=== PATIENT | male | born 1955 | race Caucasian/White ===

== ENCOUNTER → 2019-11-24 11:30 | Outpatient (BNVA) | payer OTHER, SELFPAY | PROVIDERS: PCP Nurse Practitioner Family; Visit Provider Orthopaedic Surgery | DX: Z76.89 Persons encountering health services in other specified circumstances (principal) ==

== ENCOUNTER 2019-12-07 07:19 | Outpatient (REF) | payer OTHER, SELFPAY ==
[2019-12-07 12:15] LABS: Alanine Aminotransferase 29 U/L (0-40); Albumin Level 3.8 g/dL (3.5-5.0); Alkaline Phosphatase 95 U/L (39-117); Anion Gap 13 (12-20); Aspartate Amino Transferase 23 U/L (5-37); Bilirubin Total 0.6 mg/dL (0.0-1.0); Blood Urea Nitrogen 17 mg/dL (9-16); Calcium 8.9 mg/dL (8.4-10.2); Carbon Dioxide 27 mmol/L (22-29); Chloride 103 mmol/L (96-108); Cholesterol 114 mg/dL; Estimated Glomerular Filt Rate > 60; Glucose Fasting 95 mg/dL (60-99); HDL Cholesterol 38 mg/dL; LDL Cholesterol Calculated 57 mg/dl; Potassium 4.5 mmol/l (3.3-5.1); Sodium 138 mmol/L (135-145); Total Protein 6.9 g/dL (6.5-8.0); Triglycerides 97 mg/dL
[2019-12-07 12:18] LABS: Prostate Specific Antigen 1.82 ng/mL (<0.05-4.0); TSH reflex Free T4 1.43 mIU/mL (0.32-4.0); Vitamin D 25-OH Total 19.6 ng/mL (>30)
== END 2019-12-07 07:20 | disposition home or self-care (01) ==
LOC: HO.HMGCLDS 07:19
PROVIDERS: PCP Nurse Practitioner Family; Visit Provider Nurse Practitioner Family
DX: Z12.5 Encounter for screening for malignant neoplasm of prostate (principal); Z13.220 Encounter for screening for lipoid disorders; Z13.21 Encounter for screening for nutritional disorder; Z13.29 Encounter for screening for other suspected endocrine disorder
CPT/HCPCS: 80053; 80061; 82306; 84153; 84443

== ENCOUNTER → 2019-12-27 10:23 | Outpatient (BNVA) | payer OTHER, SELFPAY | PROVIDERS: PCP Nurse Practitioner Family; Referring Provider Nurse Practitioner Family; Visit Provider Internal Medicine Cardiovascular Disease | DX: Z76.89 Persons encountering health services in other specified circumstances (principal) ==

== ENCOUNTER → 2020-01-19 08:45 | Outpatient (BNVA) | payer OTHER, SELFPAY | PROVIDERS: Visit Provider Orthopaedic Surgery | DX: Z76.89 Persons encountering health services in other specified circumstances (principal) ==

== ENCOUNTER → 2020-01-25 09:05 | Outpatient (BNVA) | payer OTHER, SELFPAY | PROVIDERS: PCP Nurse Practitioner Family; Visit Provider Urology | DX: Z76.89 Persons encountering health services in other specified circumstances (principal) ==

== ENCOUNTER → 2020-02-09 15:26 | Outpatient (BNVA) | payer OTHER, SELFPAY | PROVIDERS: PCP Nurse Practitioner Family; Referring Provider Nurse Practitioner Family; Visit Provider Internal Medicine | DX: Z76.89 Persons encountering health services in other specified circumstances (principal) ==

== ENCOUNTER → 2020-03-15 14:45 | Outpatient (BNVA) | payer OTHER, SELFPAY | PROVIDERS: PCP Nurse Practitioner Family; Visit Provider Urology | DX: Z76.89 Persons encountering health services in other specified circumstances (principal) ==

== ENCOUNTER 2020-05-13 09:15 | Emergency (ER) | payer OTHER, SELFPAY ==
[2020-05-13] VITALS (8 sets, daily range): BP systolic 103–159; BP diastolic 53–88; PULSE 100–112; RESP 14–24; TEMP 36.8–37.5; O2SAT 91–95; BMI 42.5
--- NOTE | ~2020-05-13 | XR_ITS ---
EXAMINATION: XR CHEST CLINICAL INFORMATION: Covid positive COMPARISON: Chest x-ray 01/01/2018 TECHNIQUE: Frontal view of the chest was obtained. FINDINGS: Cardiac silhouette is normal in size. The lungs are adequately aerated. Diffuse coarsening of the interstitial markings and subtle patchy bilateral airspace opacities are noted. No lobar consolidation appreciated. No pleural effusion or pneumothorax. XR/XR chest 1V IMPRESSION: Suspected viral infiltrate superimposed on chronic lung changes.
[2020-05-13] MEDS: Acetaminophen 325 MG TABLET 650 MG PO (09:45)
--- NOTE | 2020-05-13 10:10 | ECG_ITS ---
Test Reason : DIFFICULTY BREATING Blood Pressure : / mmHG Vent. Rate : 101 BPM Atrial Rate : 101 BPM P-R Int : 182 ms QRS Dur : 142 ms QT Int : 366 ms P-R-T Axes : 008 -08 008 degrees QTc Int : 474 ms Sinus tachycardia Right bundle branch block Abnormal ECG When compared with ECG of 01-JAN-2018 10:35, No significant changes seen Referred By: Susan Shannon Electronically Signed By:FEDERICO SANTOS
[2020-05-13 10:39] LABS: MANUAL DIFF FLAG NO
[2020-05-13 10:42] LABS: Eosinophils Percent Auto 0.2 % (0-4); Hematocrit 44.2 % (42-52); Hemoglobin 14.5 g/dl (14.0-18.0); Imm Gran Abs Auto 0.02 X10*3/uL (0.00-0.03); Imm Gran Pct Auto 0.4 % (0.0-0.4); Lymphocytes Absolute Auto 1.2 X10*3/uL (1.2-4.9); Mean Corpuscular HGB Conc 32.8 g/dl (31.0-36.0); Mean Corpuscular Hemoglobin 32.2 pg (27.0-33.0); Mean Corpuscular Volume 98.2 fL (80-98); Mean Platelet Volume 9.5 fL (9.4-12.4); Monocytes Absolute Auto 0.5 X10*3/uL (0.1-1.2); Monocytes Percent Auto 9.7 % (2-11); Neutrophils Absolute Auto 3.2 X10*3/uL (2.0-8.3); Neutrophils Percent Auto 65.7 % (45-73); Platelet Count 222 X10*3/uL (160-400); Red Cell Distribution Width 13.3 % (11.0-16.0); White Blood Count 4.8 X10*3/uL (4.8-10.8)
[2020-05-13 10:51] LABS: INTERNATIONAL NORM RATIO 1.2 (0.9-1.1); Prothrombin Time 13.8 SEC (10.8-13.0)
[2020-05-13] MEDS: Albuterol Sulfate 90 MCG 8 GM INHALER 4 PUFF INHALE (10:52)
[2020-05-13 10:53] LABS: Partial Thromboplastin Time 34.5 SEC (24.1-38.0)
[2020-05-13 10:54] LABS: D Dimer 273 NG/ML
[2020-05-13 11:04] LABS: Lactic Acid 0.7 mmol/L (0.5-2.0)
[2020-05-13 11:05] LABS: Alanine Aminotransferase 30 U/L (0-40); Albumin Level 3.7 g/dL (3.5-5.0); Alkaline Phosphatase 82 U/L (39-117); Anion Gap 13 (12-20); Aspartate Amino Transferase 38 U/L (5-37); Bilirubin Direct 0.5 mg/dL (0.0-0.5); Bilirubin Total 0.7 mg/dL (0.0-1.0); Blood Urea Nitrogen 17 mg/dL (9-16); Calcium 8.3 mg/dL (8.4-10.2); Carbon Dioxide 25 mmol/L (22-29); Chloride 101 mmol/L (96-108); Creatinine Clr Calc Pharmacy 135.8; Estimated Glomerular Filt Rate > 60; Glucose Random 100 mg/dL (60-115); Lactate Dehydrogenase 307 U/L (118-273); Sodium 135 mmol/L (135-145); Total Protein 7.2 g/dL (6.5-8.0)
[2020-05-13 11:10] LABS: B Type Natriuretic Peptide < 10 pg/mL (<100); Troponin-I High Sensitivity 4.1 ng/L (<3.5-35.0)
[2020-05-13 11:23] LABS: Ferritin 382 ng/mL (20-250)
--- NOTE | 2020-05-13 11:24 | ED_ITS ---
HPI - URI/Sore Throat General Chief Complaint: Upper Respiratory Symptoms Stated Complaint: covid+ , COPD Time Seen by Provider: 05/13/20 09:40 Source: patient Mode of arrival: ambulatory History of Present Illness HPI Narrative: 65-year-old male with a past medical history of COPD, diverticulitis, morbid obesity, JEFFRY on CPAP, restless leg syndrome, COVID-19 positive at [facility] sent to ED for further eval complaining of cough, my algias, dry mouth, generalized weakness, SOB, chest tightness x3 days. Denies fever, chills, LE edema, recent travel, history of blood clots, abdominal pain, nausea/vomiting Related Data Home Medications Medication Instructions Recorded Confirmed albuterol sulfate 90 mcg/actuation 1 inh INHALATION QID 11/17/19 03/13/20 aerosol inhaler amitriptyline 100 mg tablet 100 mg PO BEDTIME 11/17/19 03/13/20 duloxetine 60 mg capsule,delayed 60 mg PO DAILY 11/17/19 03/13/20 release fluticasone propionate 110 1 puff INHALATION BID 11/17/19 03/13/20 mcg/actuation HFA aerosol inhaler pregabalin 75 mg capsule 75 mg PO BID cap 11/17/19 03/13/20 umeclidinium 62.5 mcg-vilanterol 1 inh INHALATION DAILY 11/17/19 03/13/20 25 mcg/actuation powdr for inhalation methocarbamol 500 mg tablet 500 mg PO BEDTIME PRN tab 02/09/20 03/13/20 umeclidinium 62.5 mcg-vilanterol 1 inh INHALATION DAILY 03/13/20 03/13/20 25 mcg/actuation powdr for inhalation Previous Rx's Medication Instructions Recorded finasteride 5 mg tablet 5 mg PO DAILY 90 Days #90 tab 12/30/19 trimethoprim 100 mg tablet 100 mg PO BEDTIME 90 Days #90 tab 01/07/20 atorvastatin 80 mg tablet 80 mg PO DAILY 90 Days #90 tab 03/20/20 naproxen 500 mg tablet 500 mg PO BID PRN 90 Days #180 tab 03/20/20 aspirin 81 mg tablet,delayed 81 mg PO DAILY 90 Days #90 tab 04/04/20 release terazosin 10 mg capsule 10 mg PO BEDTIME 90 Days #90 cap 02/19/21 ropinirole 2 mg tablet 4 mg PO TID #540 tab 04/26/20 azithromycin 250 mg PO DAILY 4 Days #4 tab 05/13/20 cefpodoxime 200 mg PO BID 7 Days #14 tab 05/13/20 prednisone 40 mg PO DAILY 5 Days #10 tab 05/13/20 Allergies Allergy/AdvReac Type Severity Reaction Status Date / Time No Known Allergies Allergy Verified 03/13/20 15:26 [No Known Allergies*] Review of Systems Review of Systems: Constitutional: No Fever, No Chills, No Night Sweats, + Fatigue, No Malaise ENT/Mouth: No Ear Pain, No Nasal Congestion, No Sinus Pain, No Hoarseness, No sore throat Cardiovascular: + Chest tightness, + SOB, + Dyspnea on Exertion, No Orthopnea, No Edema, No Palpitations Respiratory: + Cough, No Sputum, No Wheezing, + Dyspnea Gastrointestinal: No Nausea, No Vomiting, No Diarrhea, No Constipation, No Abdominal pain Genitourinary: No Dysuria, No Urinary Frequency, No Hematuria Musculoskeletal: No joint pain, + Myalgias, No Joint Swelling Skin: No Skin Lesions, No rash Neuro: +Weakness, No Loss of Consciousness, No Headache Yes all other systems are reviewed and are negative [facility] Past Medical History Attestation statement: The following information was validated with the patient. Medical History (Updated 05/13/20 @ 15:50 by AYSHA Ruvalcaba) Bladder outlet obstruction Chronic cystitis COPD (chronic obstructive pulmonary disease) COPD (chronic obstructive pulmonary disease) MATUTE (dyspnea on exertion) History of diverticulitis History of umbilical hernia Injury of right rotator cuff Morbid obesity JEFFRY (obstructive sleep apnea) JEFFRY on CPAP Restless leg syndrome Restrictive lung disease Traumatic complete tear of right rotator cuff Surgical History History of appendectomy History of arthroscopy of left knee Family History Family History Father Arthritis Diabetes Mother Arthritis Kidney stones Family/Other Arthritis Sister No problems noted. Sister No problems noted. Son No problems noted. Social History Social History Alcohol intake: never Smoking Status: Former smoker Use of substances other than those prescribed or required for medical reasons: No Advance Directives: No Advance Directives Information Provided: No Current occupation: [employer] -[employer] Physical Exam Vital Signs: Vital Signs: Last Vital Signs Temp 98.5 F 05/13/20 15:15 Pulse 107 H 05/13/20 15:15 Resp 14 05/13/20 15:15 BP 159/88 H 05/13/20 15:15 Pulse Ox 95 05/13/20 15:15 Body Mass Index 42.5 Const: General: cooperative, healthy appearing and no acute distress Orientation/consciousness: patient oriented x3 Limitations: no limitations HENMT: Head: Yes normal to inspection Ears: hearing grossly normal bilaterally General nose exam: Normal external nose present Face and sinus: Yes normal facial exam Eyes: General: appearance normal, both eyes and all related structures EOM: EOMs intact bilaterally Neck: Neck: Yes normal visual inspection Resp: Effort & Inspection: normal respiratory effort Auscultation: clear to auscultation bilaterally and no wheezes Cardio: Rate: regular rate Heart sounds: S1 normal heart sound present and S2 normal heart sound present GI: Inspection: Yes normal to inspection Palpation (GI): Soft to palpation and nontender Skin: Rashes: no rashes Wounds: no wounds Neuro: General: patient oriented x3 Gait exam (Neuro): Normal gait present Extrem: General: Yes normal to inspection and Yes no calf tenderness Course Course Course Narrative: XR chest 1V IMPRESSION: Suspected viral infiltrate superimposed on chronic lung changes >> IV Azithromycin and Ceftriaxone ordered -D-dimer slightly elevated 273 >> age adjusted cut off for this patient would be 89 making VTE unlikely, additionally anticipate D-dimer to be elevated with known COVID 19 positive status. Unlikely PE -ferritin/LDH mildly elevated, AST mildly elevated, troponin negative -upon ambulation trial with pulse ox patient dropped to 91% on RA & became mildly tachycardic and tachypneic > IV Decadron ordered. Patient would like to go home. Will repeat ambulation trial after medication administration is complete --1541--Upon repeat ambulation trial patient maintains O2 sat greater than 92% on RA on exertion, no dyspnea, feels safe to go home. Worrisome signs and symptoms and strict return precautions discussed including constant worsening SOB/CP, constant are unremitting fevers, in to obtain pulse oximeter for home monitoring. Patient verbalized understanding feel safe for discharge home MDM - URI/Sore Throat MDM Narrative Medical decision making narrative: 65-year-old male with a past medical history of COPD, diverticulitis, morbid obesity, JEFFRY on CPAP, restless leg syndrome, COVID-19 positive at [facility] sent to ED for further eval complaining of cough, myalgias, dry mouth, generalized weakness, SOB, chest tightness x3 days. On exam mildly tachycardic, tachypneic, low-grade temp 99.5?, NAD/nontoxic appearing, lungs CTA. Concern for viral syndrome/COVID-19/viral pneumonia vs PE. Lower concern for severe sepsis as known viral etiology. Low concern for ACS/CHF Plan: EKG, labs, CXR, albuterol, reassess Medical Records Attestation: I reviewed the patient's medical records. Lab Data Attestation: I reviewed the patient's lab results. Result diagrams: 05/13/20 10:30 05/13/20 10:30 Labs: Lab Results 05/13/20 05/13/20 05/13/20 Range/Units 10:30 10:30 10:30 WBC 4.8 (4.8-10.8) X10*3/uL RBC 4.50 L (4.60-5.80) X10*6/uL Hgb 14.5 (14.0-18.0) g/dl Hct 44.2 (42-52) % MCV 98.2 H (80-98) fL MCH 32.2 (27.0-33.0) pg MCHC 32.8 (31.0-36.0) g/dl RDW 13.3 (11.0-16.0) % Plt Count 222 (160-400) X10*3/uL MPV 9.5 (9.4-12.4) fL Immature Gran % (Auto) 0.4 (0.0-0.4) % Neut % (Auto) 65.7 (45-73) % Lymph % (Auto) 24.0 (20-40) % Independence % (Auto) 9.7 (2-11) % Eos % (Auto) 0.2 (0-4) % Baso % (Auto) 0.0 (0-2) % Lymph # (Auto) 1.2 (1.2-4.9) X10*3/uL Independence # (Auto) 0.5 (0.1-1.2) X10*3/uL Eos # (Auto) 0.0 (0.0-0.4) X10*3/uL Baso # (Auto) 0.0 (0.0-0.2) X10*3/uL Abs Immat Gran (auto) 0.02 (0.00-0.03) X10*3/uL Absolute Neuts (auto) 3.2 (2.0-8.3) X10*3/uL Absolute Nucleated RBC 0.000 (0.0-0.012) X10*3/uL Nucleated RBC % (auto) 0.0 (0.0-0.2) /100WBC PT 13.8 H (10.8-13.0) SEC INR 1.2 H (0.9-1.1) APTT 34.5 (24.1-38.0) SEC D-Dimer 273 NG/ML Sodium 135 (135-145) mmol/L Potassium 4.0 (3.3-5.1) mmol/L Chloride 101 (96-108) mmol/L Carbon Dioxide 25 (22-29) mmol/L Anion Gap 13 (12-20) BUN 17 H (9-16) mg/dL Creatinine 0.91 (0.5-1.4) mg/dL Estim Creat Clear Calc 135.8 Estimated GFR > 60 Random Glucose 100 (60-115) mg/dL Lactic Acid (0.5-2.0) mmol/L Calcium 8.3 L D (8.4-10.2) mg/dL Magnesium 2.0 (1.6-2.6) mg/dL Ferritin (20-250) ng/mL Total Bilirubin 0.7 (0.0-1.0) mg/dL Direct Bilirubin 0.5 (0.0-0.5) mg/dL AST 38 H D (5-37) U/L ALT 30 (0-40) U/L Alkaline Phosphatase 82 (39-117) U/L Lactate Dehydrogenase 307 H (118-273) U/L Troponin I High Sens (<3.5-35.0) ng/L B-Natriuretic Peptide (<100) pg/mL Total Protein 7.2 (6.5-8.0) g/dL Albumin 3.7 (3.5-5.0) g/dL Procalcitonin ng/mL 05/13/20 05/13/20 05/13/20 Range/Units 10:30 10:30 10:30 WBC (4.8-10.8) X10*3/uL RBC (4.60-5.80) X10*6/uL Hgb (14.0-18.0) g/dl Hct (42-52) % MCV (80-98) fL MCH (27.0-33.0) pg MCHC (31.0-36.0) g/dl RDW (11.0-16.0) % Plt Count (160-400) X10*3/uL MPV (9.4-12.4) fL Immature Gran % (Auto) (0.0-0.4) % Neut % (Auto) (45-73) % Lymph % (Auto) (20-40) % Independence % (Auto) (2-11) % Eos % (Auto) (0-4) % Baso % (Auto) (0-2) % Lymph # (Auto) (1.2-4.9) X10*3/uL Independence # (Auto) (0.1-1.2) X10*3/uL Eos # (Auto) (0.0-0.4) X10*3/uL Baso # (Auto) (0.0-0.2) X10*3/uL Abs Immat Gran (auto) (0.00-0.03) X10*3/uL Absolute Neuts (auto) (2.0-8.3) X10*3/uL Absolute Nucleated RBC (0.0-0.012) X10*3/uL Nucleated RBC % (auto) (0.0-0.2) /100WBC PT (10.8-13.0) SEC INR (0.9-1.1) APTT (24.1-38.0) SEC D-Dimer NG/ML Sodium (135-145) mmol/L Potassium (3.3-5.1) mmol/L Chloride (96-108) mmol/L Carbon Dioxide (22-29) mmol/L Anion Gap (12-20) BUN (9-16) mg/dL Creatinine (0.5-1.4) mg/dL Estim Creat Clear Calc Estimated GFR Random Glucose (60-115) mg/dL Lactic Acid 0.7 (0.5-2.0) mmol/L Calcium (8.4-10.2) mg/dL Magnesium (1.6-2.6) mg/dL Ferritin 382 H (20-250) ng/mL Total Bilirubin (0.0-1.0) mg/dL Direct Bilirubin (0.0-0.5) mg/dL AST (5-37) U/L ALT (0-40) U/L Alkaline Phosphatase (39-117) U/L Lactate Dehydrogenase (118-273) U/L Troponin I High Sens 4.1 (<3.5-35.0) ng/L B-Natriuretic Peptide (<100) pg/mL Total Protein (6.5-8.0) g/dL Albumin (3.5-5.0) g/dL Procalcitonin ng/mL 05/13/20 05/13/20 Range/Units 10:30 10:30 WBC (4.8-10.8) X10*3/uL RBC (4.60-5.80) X10*6/uL Hgb (14.0-18.0) g/dl Hct (42-52) % MCV (80-98) fL MCH (27.0-33.0) pg MCHC (31.0-36.0) g/dl RDW (11.0-16.0) % Plt Count (160-400) X10*3/uL MPV (9.4-12.4) fL Immature Gran % (Auto) (0.0-0.4) % Neut % (Auto) (45-73) % Lymph % (Auto) (20-40) % Independence % (Auto) (2-11) % Eos % (Auto) (0-4) % Baso % (Auto) (0-2) % Lymph # (Auto) (1.2-4.9) X10*3/uL Independence # (Auto) (0.1-1.2) X10*3/uL Eos # (Auto) (0.0-0.4) X10*3/uL Baso # (Auto) (0.0-0.2) X10*3/uL Abs Immat Gran (auto) (0.00-0.03) X10*3/uL Absolute Neuts (auto) (2.0-8.3) X10*3/uL Absolute Nucleated RBC (0.0-0.012) X10*3/uL Nucleated RBC % (auto) (0.0-0.2) /100WBC PT (10.8-13.0) SEC INR (0.9-1.1) APTT (24.1-38.0) SEC D-Dimer NG/ML Sodium (135-145) mmol/L Potassium (3.3-5.1) mmol/L Chloride (96-108) mmol/L Carbon Dioxide (22-29) mmol/L Anion Gap (12-20) BUN (9-16) mg/dL Creatinine (0.5-1.4) mg/dL Estim Creat Clear Calc Estimated GFR Random Glucose (60-115) mg/dL Lactic Acid (0.5-2.0) mmol/L Calcium (8.4-10.2) mg/dL Magnesium (1.6-2.6) mg/dL Ferritin (20-250) ng/mL Total Bilirubin (0.0-1.0) mg/dL Direct Bilirubin (0.0-0.5) mg/dL AST (5-37) U/L ALT (0-40) U/L Alkaline Phosphatase (39-117) U/L Lactate Dehydrogenase (118-273) U/L Troponin I High Sens (<3.5-35.0) ng/L B-Natriuretic Peptide < 10 (<100) pg/mL Total Protein (6.5-8.0) g/dL Albumin (3.5-5.0) g/dL Procalcitonin 0.06 ng/mL Discharge Plan Discharge Clinical Impression: Pneumonia due to COVID-19 virus Patient Disposition: Home, Self-Care Instructions: COVID-19 (Coronavirus Disease 2019) (ED) Additional Instructions: You have pneumonia due to COVID 19. Zithromax and in cefpodoxime or antibiotics , take as prescribed. In addition take prednisone as prescribed Use albuterol inhaler that was supplied you in the emergency department You should invest in a pulse oximeter at home to monitor your oxygen Self isolate for 14 days You need to have close follow-up with her primary care doctor If you have any constant or worsening shortness of breath, chest pain, fever unresolved with Tylenol or Motrin, or unable to eat or drink return to the ED immediately Prescriptions: New azithromycin 250 mg tablet 250 mg PO DAILY 4 Days Qty: 4 RF: 0 cefpodoxime 200 mg tablet 200 mg PO BID 7 Days Qty: 14 RF: 0 prednisone 20 mg tablet 40 mg PO DAILY 5 Days Qty: 10 RF: 0 No Action finasteride 5 mg tablet 5 mg PO DAILY 90 Days Qty: 90 RF: 2 trimethoprim 100 mg tablet 100 mg PO BEDTIME 90 Days Qty: 90 RF: 2 naproxen 500 mg tablet 500 mg PO BID PRN (Reason: pain) 90 Days Qty: 180 RF: 0 atorvastatin 80 mg tablet 80 mg PO DAILY 90 Days Qty: 90 RF: 0 aspirin [Adult Low Dose Aspirin] 81 mg tablet,delayed release (DR/EC) 81 mg PO DAILY 90 Days Qty: 90 RF: 0 terazosin 10 mg capsule 10 mg PO BEDTIME 90 Days Qty: 90 RF: 0 ropinirole 2 mg tablet 4 mg PO TID Qty: 540 RF: 3 Anoro Ellipta 62.5-25 mcg/actuation blister with device 1 inh inhalation DAILY RF: 0 albuterol sulfate [ProAir HFA] 90 mcg/actuation HFA aerosol inhaler 1 inh inhalation QID RF: 0 Flovent HFA 110 mcg/actuation HFA aerosol inhaler 1 puff inhalation BID RF: 0 amitriptyline 100 mg tablet 100 mg PO BEDTIME RF: 0 duloxetine 60 mg capsule,delayed release(DR/EC) 60 mg PO DAILY RF: 0 Anoro Ellipta 62.5-25 mcg/actuation blister with device 1 inh inhalation DAILY RF: 0 pregabalin 75 mg capsule 75 mg PO BID RF: 0 methocarbamol 500 mg tablet 500 mg PO BEDTIME PRNRF: 0 Referrals: Diego Augustine, SOFTWARE SUPPORT REPRESENTATIVE[facility] [Primary Care Provider] - 2 days
[2020-05-13 11:34] LABS: Procalcitonin 0.06 ng/mL
[2020-05-13] MEDS: cefTRIAXone sodium 1 GM in 0.9 % Sodium Chloride 50 ML IV (11:45)
--- NOTE | 2020-05-13 11:52 | PC.NURSE ---
patient a&ox3, cardiac onitor sinus tach low 100s, vitals stable, iv antibiotics running per order, will continue to monitor.
--- NOTE | 2020-05-13 12:29 | PC.NURSE ---
patient was ambulated with this nurse, while ambulating patient became very dyspnic, audible wheezing heard, o2 sat decreased to 91%, hr 112 and resp rate increased to 24, pt stated he felt dizzy as well, pt returned to bed and took a period of time to recover will continue to monitor.
[2020-05-13] MEDS: dexAMETHasone sod phosphate 4 MG/ML VIAL 6 MG IVPUSH (12:53)
[2020-05-13] MEDS: Azithromycin 500 MG in 0.9 % Sodium Chloride 250 ML 125 MG IV (12:53)
--- NOTE | 2020-05-13 12:56 | PC.NURSE ---
pt medicated per order, pt currently watching tv, o2 sat 93% will continue to monitor.
[2020-05-13] MEDS: Metoclopramide HCl 10 MG/2 ML VIAL IVPUSH (13:51)
--- NOTE | 2020-05-13 15:54 | PC.NURSE ---
patient a&ox3, pt states he does feel better, vss, no c/o pain or discomfort, pt awaiting discharge
== END 2020-05-13 16:09 | disposition home or self-care (01) ==
PROVIDERS: Physician Assistant; Emergency Provider Emergency Medicine; PCP Nurse Practitioner Family
DX: U07.1 COVID-19 (principal); J12.82 Pneumonia due to coronavirus disease 2019; J44.9 Chronic obstructive pulmonary disease, unspecified; Z87.891 Personal history of nicotine dependence; Z79.899 Other long term (current) drug therapy
CPT/HCPCS: 36415; 71045; 80048; 80076; 82728; 83605; 83615; 83735; 83880; 84145; 84484; 85025; 85379; 85610; 85730; 87040; 93005; 94640; 94664; 96361; 96365; 96375; 99284; J0456; J0696; J1100; J2765

== ENCOUNTER 2020-05-16 08:24 | Inpatient (IN) | payer OTHER, SELFPAY ==
[2020-05-16] VITALS (12 sets, daily range): BP systolic 121–191; BP diastolic 65–90; PULSE 103–109; RESP 17–32; TEMP 36–37.3; O2SAT 89–96; BMI 42.5
--- NOTE | ~2020-05-16 | CT_ITS ---
EXAMINATION: CT ANGIOGRAM OF THE CHEST WITH AND WITHOUT CONTRAST (CT PULMONARY ANGIOGRAM FOR PE) CLINICAL INFORMATION: Shortness of breath, tachycardic, elevated D-dimer, COVID. COMPARISON: Previous chest CT September 2015 TECHNIQUE: Prior to contrast administration, noncontrast localization images were obtained. Subsequently, multidetector volumetric imaging was performed from the thoracic inlet to below the diaphragms following the administration of 65 mL Omnipaque 350 intravenous contrast. No contrast reaction reported. Sagittal, coronal, and MIP oblique sagittal reformatted images were obtained on the CT workstation, uploaded to PACS, and reviewed. This CT examination was performed using dose optimization techniques as appropriate, variously including the following: *Automated exposure control *Adjustment of mA and/or kV according to patient size (this includes techniques or standardized protocols for targeted exams where dose is matched to indication/reason for exam; i.e. extremities or head) *Use of iterative reconstruction technique Total exam dose-length product 682 mGy-cm FINDINGS: QUALITY OF STUDY/CONTRAST BOLUS: Satisfactory. PULMONARY ARTERIES: No central or segmental pulmonary emboli. THORACIC AORTA: No aneurysm or dissection. LUNG: There are scattered bilateral ground-glass opacities. This is a nonspecific appearance but would be compatible with COVID infection. There is a 6 x 9 mm peripheral or subpleural left lower lobe pulmonary nodule axial image 405 series 7. This is new from old exam from 2015. PLEURA: There is a very small left pleural effusion. There is no right pleural effusion. MEDIASTINUM: Normal heart size. No pericardial effusion. There is diffuse mediastinal and hilar lymphadenopathy. This is new from 2016 exam. No evidence of septal bowing or right heart strain. CHEST WALL/AXILLA: No axillary or internal mammary lymphadenopathy. OSSEOUS STRUCTURES: No acute or suspicious osseous abnormality. There are degenerative changes of the spine. UPPER ABDOMEN: There are gallstones in the gallbladder. No reflux of contrast into the hepatic veins to suggest elevated right heart pressures. CT/CT angio chest PE protocol IMPRESSION: No evidence of pulmonary embolism. Bilateral ground-glass attenuation infiltrates. This is a nonspecific finding but would be compatible with COVID infection. Diffuse mediastinal and hilar lymphadenopathy. 6 x 9 mm left lower lobe pulmonary nodule. These findings are new from old chest CT exam from 2016. Chest CT followup recommended. VTE: negative
--- NOTE | ~2020-05-16 | XR_ITS ---
EXAMINATION: XR CHEST CLINICAL INFORMATION: Chest pain and shortness of breath. Covid positive COMPARISON: Previous chest x-ray 05/13/2020 TECHNIQUE: Frontal view of the chest was obtained. FINDINGS: The cardiac and mediastinal contours are stable. The lung volumes are low. There are bilateral infiltrates, left greater than right. Appearance of the compatible with Covid infection. There is no pleural effusion or pneumothorax. There are degenerative changes of the spine. XR/XR chest 1V IMPRESSION: Bilateral infiltrates, left greater than right, increased from recent previous exam.
--- NOTE | 2020-05-16 09:00 | ECG_ITS ---
Test Reason : SOB Blood Pressure : / mmHG Vent. Rate : 102 BPM Atrial Rate : 102 BPM P-R Int : 162 ms QRS Dur : 144 ms QT Int : 366 ms P-R-T Axes : 015 018 015 degrees QTc Int : 477 ms Sinus tachycardia Right bundle branch block Abnormal ECG When compared with ECG of 13-MAY-2020 12:02, No significant change was found Referred By: Aminata Parikh Electronically Signed By:Dejan King
[2020-05-16] MEDS: dexAMETHasone sod phosphate 4 MG/ML VIAL 6 MG IVPUSH (09:31)
--- NOTE | 2020-05-16 09:34 | ED_ITS ---
HPI - SOB/Dyspnea General Chief Complaint: Dyspnea Stated Complaint: +covid Time Seen by Provider: 05/16/20 09:00 Source: patient Mode of arrival: ambulatory Limitations: no limitations History of Present Illness HPI Narrative: 65 y/o male with history of asthma, COPD, JEFFRY on CPAP, obesity, neuropathy, depression, restless leg syndrome, diverticulitis who presents to the ED from home with worsening SOB and chest tightness for the last 2 days. His symptoms first began 6 days ago with fatigue and feeling lousy. He was found to be COVID-19 positive on 05/13. He was sent here from Urgent Care - he was diagnosed with COVID pneumonia & started on predisone and antibiotics and discharged home. Since discharge his breathing has gotten worse. He states when he got up today he couldn't even take a few steps without having difficulty breathing. He reports it feels like an elephant is sitting on his chest. When he coughs he feels like he cracked ribs. He is bringing up clear mucus with his coughing fits. He denies fevers, chills, nausea, vomiting or diarrhea. He has muscle aches and pain in his whole body. On arrival to the ED patient was tachypenic to the 30's with SpO2 93% so he was placed on 2L NC. MD elicited complaint: shortness of breath, pain with inspiration and chest pain Pertinent past history: COPD, asthma and other (recent COVID-19) Onset (ago): day(s) (6) Context: recent illness and occurred during exertion Timing: constant Severity: severe Exacerbating factors: exertion, coughing and inspiration Relieving factors: oxygen and rest Known history of: COPD and asthma Associated symptoms: chest pain, pain with inspiration, cough and lower extremity pain Treatment prior to arrival: none Related Data Home oxygen amount: none Home Medications Medication Instructions Recorded Confirmed albuterol sulfate 90 mcg/actuation 1 inh INHALATION QID 11/17/19 03/13/20 aerosol inhaler amitriptyline 100 mg tablet 100 mg PO BEDTIME 11/17/19 03/13/20 duloxetine 60 mg capsule,delayed 60 mg PO DAILY 11/17/19 03/13/20 release fluticasone propionate 110 1 puff INHALATION BID 11/17/19 03/13/20 mcg/actuation HFA aerosol inhaler pregabalin 75 mg capsule 75 mg PO BID cap 11/17/19 03/13/20 umeclidinium 62.5 mcg-vilanterol 1 inh INHALATION DAILY 11/17/19 03/13/20 25 mcg/actuation powdr for inhalation methocarbamol 500 mg tablet 500 mg PO BEDTIME PRN tab 02/09/20 03/13/20 umeclidinium 62.5 mcg-vilanterol 1 inh INHALATION DAILY 03/13/20 03/13/20 25 mcg/actuation powdr for inhalation Previous Rx's Medication Instructions Recorded finasteride 5 mg tablet 5 mg PO DAILY 90 Days #90 tab 12/30/19 trimethoprim 100 mg tablet 100 mg PO BEDTIME 90 Days #90 tab 01/07/20 atorvastatin 80 mg tablet 80 mg PO DAILY 90 Days #90 tab 03/20/20 naproxen 500 mg tablet 500 mg PO BID PRN 90 Days #180 tab 03/20/20 aspirin 81 mg tablet,delayed 81 mg PO DAILY 90 Days #90 tab 04/04/20 release terazosin 10 mg capsule 10 mg PO BEDTIME 90 Days #90 cap 04/07/20 ropinirole 2 mg tablet 4 mg PO TID #540 tab 04/26/20 azithromycin 250 mg PO DAILY 4 Days #4 tab 05/13/20 cefpodoxime 200 mg PO BID 7 Days #14 tab 05/13/20 prednisone 40 mg PO DAILY 5 Days #10 tab 05/13/20 Allergies Allergy/AdvReac Type Severity Reaction Status Date / Time No Known Allergies Allergy Verified 03/13/20 15:26 [No Known Allergies*] Review of Systems Review of Systems: Constitutional: No Fever, No Chills ENT/Mouth: + sore throat, No Rhinorrhea, No Swallowing Difficulty Eyes: No Eye Pain, No Swelling, No Redness Cardiovascular: + Chest Pain, + SOB, No Orthopnea, No Edema Respiratory:+ Cough, + Sputum, No Wheezing, + dyspnea Gastrointestinal: No Nausea, No Vomiting, No Diarrhea, No abdominal Pain, +constipation Genitourinary: No Dysuria, No Urinary Frequency, No Hematuria Musculoskeletal: + joint pain, + Myalgias Skin: No Skin Lesions, No rash Neuro: No Weakness, No Numbness, No Dizziness, + Headache Psych: + Anxiety/Panic, No Depression Heme/Lymph: No Bruising, No Lymphadenopathy Endocrine: No Polyuria, No Polydipsia PMFSH Past Medical History Attestation statement: The following information was validated with the patient. Medical History Bladder outlet obstruction Chronic cystitis COPD (chronic obstructive pulmonary disease) COPD (chronic obstructive pulmonary disease) MATUTE (dyspnea on exertion) History of diverticulitis History of umbilical hernia Injury of right rotator cuff Morbid obesity JEFFRY (obstructive sleep apnea) JEFFRY on CPAP Restless leg syndrome Restrictive lung disease Traumatic complete tear of right rotator cuff Surgical History History of appendectomy History of arthroscopy of left knee Family History Family History Father Arthritis Diabetes Mother Arthritis Kidney stones Family/Other Arthritis Sister No problems noted. Sister No problems noted. Son No problems noted. 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 Oriented X3. Moderate respiratory distress. Eyes: Pupils equal, round and reactive to light. ENT: Pharynx normal. Neck: Normal inspection. Neck supple. CVS: Tachycardic, regular rhythm. Pulses normal. Respiratory: Moderate respiratory distress with RR 30's. Breath sounds coarse and diminished at bilateral bases. Able to speak in 3-4 word sentences Abdomen: Morbidly obese, Soft and nontender. +BS x4 Skin: Skin warm and dry. Normal skin color. Normal skin turgor. No rashes. Extremities: No lower extremity edema. Negative Sandeep's sign Neuro: Oriented X 3. No motor deficit. No sensory deficit. Course Course Course Narrative: 65 y/o male presenting with SOB, MATUTE and chest pain in the setting of COVID-19. Very SOB and tachypneic with exertion, placed on 2L NC with improvement. Declining need for non-invasive ventilation at this time. Will get repeat CXR, lab workup including DDIMER, concern for possible PE's vs worsening COVID pneumonia. He is declining the need for CPAP for WOB. Will require admis burke for close monitoring of his respiratory status. Reevaluation(s) Reevaluation #1: CXR showing worsening bilateral infiltrates. DDIMER elevated will get CTA to r/o PE. Lactic acid 2.1 - will give gentle IVF and repeat. No n eed for IV antibiotics at this time as this is a viral infection. Doubt superimposed pneumonia with no leukocytosis and negative procalcitonin. Reevaluation #2: Given robitussin AC with improvement in RR to mid-high 20's. CTA negative for PE. Will contact hospitalist for admission. Patient agreeable with plan - he is anxious as his mother from COVID in September. MDM - SOB/Dyspnea Medical Records Attestation: I reviewed the patient's medical records. Lab Data Attestation: I reviewed the patient's lab results. Result diagrams: 05/16/20 09:25 05/16/20 10:24 Labs: Lab Results 05/16/20 05/16/20 05/16/20 Range/Units 09:25 09:25 09:25 WBC 5.8 (4.8-10.8) X10*3/uL RBC 4.28 L (4.60-5.80) X10*6/uL Hgb 13.8 L (14.0-18.0) g/dl Hct 42.0 (42-52) % MCV 98.1 H (80-98) fL MCH 32.2 (27.0-33.0) pg MCHC 32.9 (31.0-36.0) g/dl RDW 13.4 (11.0-16.0) % Plt Count 265 (160-400) X10*3/uL MPV 9.8 (9.4-12.4) fL Immature Gran % (Auto) 0.3 (0.0-0.4) % Neut % (Auto) 75.8 H (45-73) % Lymph % (Auto) 18.6 L (20-40) % [place] % (Auto) 4.8 (2-11) % Eos % (Auto) 0.3 (0-4) % Baso % (Auto) 0.2 (0-2) % Lymph # (Auto) 1.1 L (1.2-4.9) X10*3/uL [place] # (Auto) 0.3 (0.1-1.2) X10*3/uL Eos # (Auto) 0.0 (0.0-0.4) X10*3/uL Baso # (Auto) 0.0 (0.0-0.2) X10*3/uL Abs Immat Gran (auto) 0.02 (0.00-0.03) X10*3/uL Absolute Neuts (auto) 4.4 (2.0-8.3) X10*3/uL Absolute Nucleated RBC 0.000 (0.0-0.012) X10*3/uL Nucleated RBC % (auto) 0.0 (0.0-0.2) /100WBC PT 12.6 (10.8-13.0) SEC INR 1.1 (0.9-1.1) APTT 27.7 (24.1-38.0) SEC D-Dimer 295 NG/ML Sodium (135-145) mmol/L Potassium (3.3-5.1) mmol/L Chloride (96-108) mmol/L Carbon Dioxide (22-29) mmol/L Anion Gap (12-20) BUN (9-16) mg/dL Creatinine (0.5-1.4) mg/dL Estim Creat Clear Calc Estimated GFR Random Glucose (60-115) mg/dL Lactic Acid (0.5-2.0) mmol/L Lactic Acid Fup @ 2Hr (0.5-2.0) mmol/L Calcium (8.4-10.2) mg/dL Magnesium (1.6-2.6) mg/dL Total Bilirubin (0.0-1.0) mg/dL Direct Bilirubin (0.0-0.5) mg/dL AST (5-37) U/L ALT (0-40) U/L Alkaline Phosphatase (39-117) U/L Troponin I High Sens 3.6 (<3.5-35.0) ng/L C-Reactive Protein (< or = 0.50) mg/dL B-Natriuretic Peptide < 10 (<100) pg/mL Total Protein (6.5-8.0) g/dL Albumin (3.5-5.0) g/dL Procalcitonin ng/mL Urine Color Urine Appearance Urine pH (5.0-8.0) Ur Specific [place] (1.005-1.025) Urine Protein (NEG-TRACE) MG/DL Urine Glucose (UA) (NEG) MG/DL Urine Ketones (NEG) MG/DL Urine Blood (NEG) Urine Nitrite (NEG) Ur Leukocyte Esterase (NEG) Urine RBC (0) /HPF Urine WBC (0-4) /HPF Ur Squamous Epith Cells /LPF Urine Bacteria /LPF COVID-19 (JAJA) (Negative) COVID-19 Clin Com 05/16/20 05/16/20 05/16/20 Range/Units 09:25 09:25 10:24 WBC (4.8-10.8) X10*3/uL RBC (4.60-5.80) X10*6/uL Hgb (14.0-18.0) g/dl Hct (42-52) % MCV (80-98) fL MCH (27.0-33.0) pg MCHC (31.0-36.0) g/dl RDW (11.0-16.0) % Plt Count (160-400) X10*3/uL MPV (9.4-12.4) fL Immature Gran % (Auto) (0.0-0.4) % Neut % (Auto) (45-73) % Lymph % (Auto) (20-40) % [place] % (Auto) (2-11) % Eos % (Auto) (0-4) % Baso % (Auto) (0-2) % Lymph # (Auto) (1.2-4.9) X10*3/uL [place] # (Auto) (0.1-1.2) X10*3/uL Eos # (Auto) (0.0-0.4) X10*3/uL Baso # (Auto) (0.0-0.2) X10*3/uL Abs Immat Gran (auto) (0.00-0.03) X10*3/uL Absolute Neuts (auto) (2.0-8.3) X10*3/uL Absolute Nucleated RBC (0.0-0.012) X10*3/uL Nucleated RBC % (auto) (0.0-0.2) /100WBC PT (10.8-13.0) SEC INR (0.9-1.1) APTT (24.1-38.0) SEC D-Dimer NG/ML Sodium 138 (135-145) mmol/L Potassium 4.4 (3.3-5.1) mmol/L Chloride 103 (96-108) mmol/L Carbon Dioxide 27 (22-29) mmol/L Anion Gap 12 (12-20) BUN 16 (9-16) mg/dL Creatinine 0.79 (0.5-1.4) mg/dL Estim Creat Clear Calc 156.4 Estimated GFR > 60 Random Glucose 91 (60-115) mg/dL Lactic Acid 2.1 H* (0.5-2.0) mmol/L Lactic Acid Fup @ 2Hr (0.5-2.0) mmol/L Calcium 8.0 L (8.4-10.2) mg/dL Magnesium 1.9 (1.6-2.6) mg/dL Total Bilirubin 0.8 (0.0-1.0) mg/dL Direct Bilirubin 0.4 (0.0-0.5) mg/dL AST 52 H (5-37) U/L ALT 43 H (0-40) U/L Alkaline Phosphatase 74 (39-117) U/L Troponin I High Sens (<3.5-35.0) ng/L C-Reactive Protein 3.74 H (< or = 0.50) mg/dL B-Natriuretic Peptide (<100) pg/mL Total Protein 6.5 (6.5-8.0) g/dL Albumin 3.3 L (3.5-5.0) g/dL Procalcitonin ng/mL Urine Color Urine Appearance Urine pH (5.0-8.0) Ur Specific [place] (1.005-1.025) Urine Protein (NEG-TRACE) MG/DL Urine Glucose (UA) (NEG) MG/DL Urine Ketones (NEG) MG/DL Urine Blood (NEG) Urine Nitrite (NEG) Ur Leukocyte Esterase (NEG) Urine RBC (0) /HPF Urine WBC (0-4) /HPF Ur Squamous Epith Cells /LPF Urine Bacteria /LPF COVID-19 (JAJA) Positive A (Negative) COVID-19 Clin Com See Note 05/16/20 05/16/20 05/16/20 Range/Units 10:24 12:32 12:32 WBC (4.8-10.8) X10*3/uL RBC (4.60-5.80) X10*6/uL Hgb (14.0-18.0) g/dl Hct (42-52) % MCV (80-98) fL MCH (27.0-33.0) pg MCHC (31.0-36.0) g/dl RDW (11.0-16.0) % Plt Count (160-400) X10*3/uL MPV (9.4-12.4) fL Immature Gran % (Auto) (0.0-0.4) % Neut % (Auto) (45-73) % Lymph % (Auto) (20-40) % [place] % (Auto) (2-11) % Eos % (Auto) (0-4) % Baso % (Auto) (0-2) % Lymph # (Auto) (1.2-4.9) X10*3/uL [place] # (Auto) (0.1-1.2) X10*3/uL Eos # (Auto) (0.0-0.4) X10*3/uL Baso # (Auto) (0.0-0.2) X10*3/uL Abs Immat Gran (auto) (0.00-0.03) X10*3/uL Absolute Neuts (auto) (2.0-8.3) X10*3/uL Absolute Nucleated RBC (0.0-0.012) X10*3/uL Nucleated RBC % (auto) (0.0-0.2) /100WBC PT (10.8-13.0) SEC INR (0.9-1.1) APTT (24.1-38.0) SEC D-Dimer NG/ML Sodium (135-145) mmol/L Potassium (3.3-5.1) mmol/L Chloride (96-108) mmol/L Carbon Dioxide (22-29) mmol/L Anion Gap (12-20) BUN (9-16) mg/dL Creatinine (0.5-1.4) mg/dL Estim Creat Clear Calc Estimated GFR Random Glucose (60-115) mg/dL Lactic Acid (0.5-2.0) mmol/L Lactic Acid Fup @ 2Hr 1.3 (0.5-2.0) mmol/L Calcium (8.4-10.2) mg/dL Magnesium (1.6-2.6) mg/dL Total Bilirubin (0.0-1.0) mg/dL Direct Bilirubin (0.0-0.5) mg/dL AST (5-37) U/L ALT (0-40) U/L Alkaline Phosphatase (39-117) U/L Troponin I High Sens (<3.5-35.0) ng/L C-Reactive Protein (< or = 0.50) mg/dL B-Natriuretic Peptide (<100) pg/mL Total Protein (6.5-8.0) g/dL Albumin (3.5-5.0) g/dL Procalcitonin 0.05 ng/mL Urine Color DARK YELLOW Urine Appearance CLEAR Urine pH 6.5 (5.0-8.0) Ur Specific [place] 1.015 (1.005-1.025) Urine Protein NEG (NEG-TRACE) MG/DL Urine Glucose (UA) NEG (NEG) MG/DL Urine Ketones NEG (NEG) MG/DL Urine Blood TRACE (NEG) Urine Nitrite NEG (NEG) Ur Leukocyte Esterase NEG (NEG) Urine RBC 1-4 (0) /HPF Urine WBC 1-4 (0-4) /HPF Ur Squamous Epith Cells TRACE /LPF Urine Bacteria NONE /LPF COVID-19 (JAJA) (Negative) COVID-19 Clin Com ECG Data Attestation: I personally reviewed and interpreted this ECG as follows: ECG interpretation date: 05/16/20 ECG interpretation time: 10:26 Prior ECG tracings: available for review Interpretation: sinus tachycardia, HR 102 bpm, RBBB, normal [place] interval, no ST segment elevations, unchanged from prior EDG 3/27 Critical Care Time Critical Care Time Critical Care Time: Yes Total Critical Care Time: 35 Attestation: I attest to critical care time spent caring for this patient with respiratory distress due to COVID-19. Time spent reviewing records and re- evaluating patient's cardiopulmonary status. Discharge Plan Discharge Clinical Impression: Pneumonia due to COVID-19 virus Patient Disposition: Admitted As Inpatient
[2020-05-16 09:45] LABS: MANUAL DIFF FLAG NO
[2020-05-16 09:46] LABS: Basophils Percent Auto 0.2 % (0-2); Eosinophils Percent Auto 0.3 % (0-4); Hemoglobin 13.8 g/dl (14.0-18.0); Imm Gran Abs Auto 0.02 X10*3/uL (0.00-0.03); Imm Gran Pct Auto 0.3 % (0.0-0.4); Lymphocytes Absolute Auto 1.1 X10*3/uL (1.2-4.9); Lymphocytes Percent Auto 18.6 % (20-40); Mean Corpuscular HGB Conc 32.9 g/dl (31.0-36.0); Mean Corpuscular Hemoglobin 32.2 pg (27.0-33.0); Mean Corpuscular Volume 98.1 fL (80-98); Mean Platelet Volume 9.8 fL (9.4-12.4); Monocytes Absolute Auto 0.3 X10*3/uL (0.1-1.2); Monocytes Percent Auto 4.8 % (2-11); Neutrophils Absolute Auto 4.4 X10*3/uL (2.0-8.3); Neutrophils Percent Auto 75.8 % (45-73); Platelet Count 265 X10*3/uL (160-400); Red Blood Count 4.28 X10*6/uL (4.60-5.80); Red Cell Distribution Width 13.4 % (11.0-16.0); White Blood Count 5.8 X10*3/uL (4.8-10.8)
[2020-05-16 09:58] LABS: COVID-19 Test Positive (Negative)
[2020-05-16 10:09] LABS: Lactic Acid 2.1 mmol/L (0.5-2.0)
[2020-05-16 10:27] LABS: B Type Natriuretic Peptide < 10 pg/mL (<100); Troponin-I High Sensitivity 3.6 ng/L (<3.5-35.0)
[2020-05-16 10:41] LABS: INTERNATIONAL NORM RATIO 1.1 (0.9-1.1); Prothrombin Time 12.6 SEC (10.8-13.0)
[2020-05-16 10:44] LABS: D Dimer 295 NG/ML; Partial Thromboplastin Time 27.7 SEC (24.1-38.0)
[2020-05-16 11:02] LABS: Alanine Aminotransferase 43 U/L (0-40); Albumin Level 3.3 g/dL (3.5-5.0); Alkaline Phosphatase 74 U/L (39-117); Anion Gap 12 (12-20); Aspartate Amino Transferase 52 U/L (5-37); Bilirubin Direct 0.4 mg/dL (0.0-0.5); Bilirubin Total 0.8 mg/dL (0.0-1.0); Blood Urea Nitrogen 16 mg/dL (9-16); C Reactive Protein 3.74 mg/dL (< or = 0.50); Carbon Dioxide 27 mmol/L (22-29); Chloride 103 mmol/L (96-108); Creatinine Clr Calc Pharmacy 156.4; Estimated Glomerular Filt Rate > 60; Glucose Random 91 mg/dL (60-115); Magnesium 1.9 mg/dL (1.6-2.6); Potassium 4.4 mmol/L (3.3-5.1); Sodium 138 mmol/L (135-145); Total Protein 6.5 g/dL (6.5-8.0)
[2020-05-16] MEDS: 0.9 % Sodium Chloride 500 ML 250 ML IV (11:08)
[2020-05-16] MEDS: guaiFEN/Codeine SF 200/20/10ML 10 ML LIQUID PO (11:25)
[2020-05-16 11:36] LABS: Reflex Lactate? Lactic Acid Added
[2020-05-16 11:43] LABS: Procalcitonin 0.05 ng/mL
[2020-05-16] MEDS: iohexoL 350 MG/ML 75 ML INFUS..BTL IV (12:25)
[2020-05-16 12:55] LABS: Glucose Urine UA NEG (NEG); Leukocyte Esterase Urine NEG (NEG); Nitrite Urine NEG (NEG); PH 6.5 (5.0-8.0); Specific Gravity - Urine 1.015 (1.005-1.025); Urine Blood TRACE (NEG); Urine Ketones NEG (NEG); Urine Protein NEG (NEG-TRACE)
[2020-05-16 12:57] LABS: Appearance Urine CLEAR; Color Urine DARK YELLOW
[2020-05-16 13:01] LABS: ~Lactic Acid-LAB USE ONLY 1.3 mmol/L (0.5-2.0)
[2020-05-16 13:05] LABS: Squamous Epithelial Cell Urine TRACE /LPF
--- NOTE | 2020-05-16 14:55 | HP_ITS ---
DATE OF SERVICE: 05/16/2020 HISTORY OF PRESENT ILLNESS: He is a 65-year-old male with morbid obesity, COPD, peripheral neuropathy, depression, restless legs syndrome, obstructive sleep apnea, and history of diverticulitis, who presented to the emergency room because of progressive shortness of breath that has been ongoing last week. The patient started not feeling well with his respiratory symptoms including shortness of breath and cough. He was seen at an Urgent Care in [place] and was tested for COVID-19 and was positive and discharged with prednisone and antibiotics and discharged home. He continued not to be feeling well and ended up at [facility] on May 13 and was monitored. His respiratory status was stable at that time, and therefore, was discharged home. However, over the last several days, he has continued to become increasingly more short of breath, not feeling well, and in particular, this morning, he woke up and just could not breathe at all and that prompted him to come to the emergency room to be evaluated. He was noted to be tachypneic on arrival with a respiratory rate in the 30s. Oxygen saturation was borderline at about 91% on room air and it improved about 94% on 2 L. He was also noted to be tachycardic. Obviously, COVID-19 is positive yet again. His inflammatory markers including CRP is elevated, lactic acid is elevated at 2, likely not related to sepsis. His LFTs are slightly high at AST of 52 and ALT of 43. He is afebrile. He has been given dexamethasone in the emergency room and is being admitted for further management. ALLERGIES: REPORTS NO KNOWN ALLERGIES. PAST MEDICAL HISTORY: 1. COPD. 2. Arthritis. 3. History of a DVT, has been anticoagulated in the past. 4. JEFFRY, on CPAP. 5. Peripheral neuropathy. 6. History of bladder outlet obstruction. PAST SURGICAL HISTORY: He has had a left total knee replacement and a right shoulder repair. He has had appendix taken out also. SOCIAL HISTORY: He lives with . Denied significant alcohol intake, but drinks about a beer or so. He denies tobacco use, and also does use marijuana on occasion. FAMILY HISTORY: He said that his mother just last fall of , and father did have diabetes. REVIEW OF SYSTEMS: CONSTITUTIONAL: There is no fever. RESPIRATORY: He is short of breath. He has cough. CARDIAC: He reports no chest pain. No dyspnea on exertion. GI: No nausea or vomiting. No abdominal pain. No diarrhea. : No dysuria. No hematuria. No urinary retention. ENDOCRINE: No polyuria or polydipsia. No heat or cold intolerance. NEURO: He is not confused. PSYCH: . All other systems are reviewed and are negative at this point. MEDICATIONS: His home medication has not yet been completed, but he takes: 1. Albuterol inhaler 90 mcg as needed for shortness of breath. 2. Elavil 100 mg at bedtime. 3. Aspirin 81 mg p.o. daily. 4. Lipitor 80 mg p.o. daily. 5. Azithromycin, which was recently prescribed 250 mg p.o. daily. 6. Cefpodoxime 200 mg p.o. b.i.d. 7. Fluticasone propionate 110 mcg HFA 1 puff b.i.d. 8. Methocarbamol 500 mg p.o. at bedtime p.r.n. 9. Naproxen 500 mg p.o. b.i.d. p.r.n. for pain. 10. Prednisone 5 mg p.o. daily. It was supposed to take for 5 days. 11. Pregabalin 75 mg p.o. b.i.d. for restless legs. 12. Ropinirole 4 mg p.o. t.i.d. for restless legs. 13. Terazosin 10 mg p.o. at bedtime. 14. He is supposed to be on trimethoprim 100 mg at bedtime. 15. Ventolin. PHYSICAL EXAMINATION: VITAL SIGNS: His temperature is not listed here, pulse is 109, respirations 29, blood pressure 135/75, and O2 of 95% on 2 L via nasal cannula. GENERAL: The patient is awake and alert. He does speak in full sentences. He is not in obvious respiratory distress. NECK: His neck is fairly full. No lymphadenopathy. No JVD was noted. PULMONARY: Auscultation was avoided due to active COVID-19. The patient has normal respiratory effort. There was no accessory muscle use, although his respirations seem to be faster than usual. ABDOMEN: Obese. No tender. No distention. EXTREMITIES: He has bilateral stasis dermatitis from chronic venous insufficiency. No clubbing. No cyanosis noted. NEUROLOGIC: He moves all extremities with ease. PSYCHIATRIC: He has normal affect. SKIN: No rash, otherwise. LABORATORY DATA: Reviewed. WBC 5.8, hemoglobin 13.8, hematocrit is 42, and platelets of 255. INR is normal. D-dimer 295. Sodium 138, potassium 4.4, chloride 103, bicarb 27, BUN is 16, creatinine 0.79, and random glucose 91. Lactic acid 2.1. Calcium is 8.0. Total bilirubin 0.8, AST 52, and ALT 43. Troponin I 3.6, which is normal. C-reactive protein at 3.75. BNP is less than 10. Total protein 6.5 and albumin 3.3. Urinalysis is essentially normal. COVID-19 is positive. Chest x-ray shows bilateral infiltrates, left greater than right, increased from recent exam. A CT of the chest was done despite the fact that his D-dimer is unremarkable and it showed no evidence of pulmonary embolism bilateral ground-glass attenuation infiltrate. Findings were consistent with COVID-19. He does have diffuse mediastinal and hilar lymphadenopathy and 6.9 mm left lower lobe pulmonary nodule. These findings are new from old CT of 2016, and a followup is recommended at this point. ASSESSMENT: This is a 65-year-old male, morbidly obese with obstructive sleep apnea, chronic obstructive pulmonary disease, presenting with COVID-19 associated with acute hypoxic respiratory failure that has not responded to outpatient management. with bilateral infiltrate. PLAN: 1. Acute respiratory failure, associated with COVID-19 pneumonia. He has significant risk factors that put him at a higher risk including the morbid obesity, COPD, and obstructive sleep apnea. Management with IV steroids, oxygen, Infectious Disease to see if he will benefit from remdesivir, although 1 ought to be cautious because of elevated LFTs. He has been on antibiotics for the infiltrate, although I do not believe that these are bacterial pneumonia, but we will continue the azithromycin until he completes the course. He has elevated lactic acid that is obviously not associated with sepsis. 2. COPD. He does not have any obvious exacerbation. However, we will continue inhalers by metered dose due to COVID-19 and steroid. 3. Morbid obesity. He should work on losing weight. 4. Hyperlipidemia. Hold statin because of rise in LFTs. 5. Peripheral neuropathy/restless legs. Continue pregabalin and ropinirole. 6. BPH and bladder outlet obstruction. Continue terazosin. 7. For DVT prophylaxis, we will give him Lovenox. 8. Full code. MD KG Tineo/SALIMA / [id number]
--- NOTE | 2020-05-16 15:56 | PC.NURSE ---
1500 pt attempted to stand to urinate which resulted in inability to sit properly back in bed and was found with lower body hanging off of end of bed. pt was very SOB and took over 20 minutes to recover. had increased Work of breathing, unable to spk full sentences. skin remains pwd. unlabored resp at rest in bed on 2l NC.
--- NOTE | 2020-05-16 18:20 | PC.NURSE ---
rn to rn with lydia on [facility].
[2020-05-16] MEDS: Enoxaparin Sodium 40 MG/0.4 ML SYRINGE SUBCUT (20:19)
[2020-05-16] MEDS: Pregabalin 75 MG CAPSULE PO (20:19)
[2020-05-16] MEDS: 0.9 % Sodium Chloride Flush 3 ML SYRINGE IVFLUSH ×2 (20:19→22:30)
[2020-05-16] MEDS: Doxazosin Mesylate 2 MG TABLET 8 MG PO (20:20)
[2020-05-16] MEDS: Amitriptyline HCl 50 MG TABLET 100 MG PO (20:20)
[2020-05-16] MEDS: Albuterol Sulfate 90 MCG 8 GM INHALER 1 PUFF INHALE (22:30)
[2020-05-17] VITALS (7 sets, daily range): BP systolic 120–157; BP diastolic 71–96; PULSE 82–111; RESP 20; TEMP 36.1–37; O2SAT 92–96
[2020-05-17] MEDS: rOPINIRole HCL 1 MG TABLET PO (01:19)
[2020-05-17] MEDS: Fluticasone Propionate 250 MCG BLST.W.DEV 2 PUFF INHALE ×2 (07:50→20:14)
[2020-05-17] MEDS: Aspirin Enteric Coated 81 MG TABLET.DR PO (08:27)
[2020-05-17] MEDS: dexAMETHasone sod phosphate 4 MG/ML VIAL 6 MG IVPUSH (08:27)
[2020-05-17] MEDS: 0.9 % Sodium Chloride Flush 3 ML SYRINGE IVFLUSH ×2 (08:27→15:46)
[2020-05-17] MEDS: Atorvastatin Calcium 80 MG TABLET PO (08:28)
[2020-05-17] MEDS: rOPINIRole HCL 2 MG TABLET PO ×3 (08:28→20:12)
[2020-05-17] MEDS: Finasteride 5 MG TABLET PO (08:28)
[2020-05-17] MEDS: DULoxetine HCl 60 MG CAPSULE.DR PO (08:28)
[2020-05-17] MEDS: Pregabalin 75 MG CAPSULE PO ×2 (08:28→20:12)
--- NOTE | 2020-05-17 09:21 | MHC.CM.PN ---
Male 65 DX Covid+. He lives with his . She is at home Covid+. He is independent with all functional mobility. A HCP has been documented and placed on the chart. DP home no services family transport.
--- NOTE | 2020-05-17 11:43 | HO.PM.IMPN ---
Subjective Subjective Date of Service: 05/18/20 Interval History: f/u on covid, resp failure. Feels better, still on O2 at 4 [place] Review of Systems Gen: no fever Resp: + sob, no cough CV: no chest, no MATUTE, no leg edema GI: No n/v, no abd pain Neuro: No confusion Physical Exam Vital Signs: Vital Signs: Last Vital Signs Temp 98.6 F 05/17/20 07:34 Pulse 82 05/17/20 07:34 Resp 20 05/17/20 07:34 BP 120/77 05/17/20 07:34 Pulse Ox 94 05/17/20 07:34 Body Mass Index 42.5 General: AO X 3, no acute distress Resp: normal respiratory effort CVS: regular rate on monito GI: +BS, NT, no distention Skin: No rash, chronic stasis dermatitis of both legs Neuro: motor grossly intact Psych: appropriate affect Objective Data Current Medications Generic Name Dose Route Start Last Admin Trade Name Freq PRN Reason Stop Dose Admin Acetaminophen 650 mg 05/16/20 19:12 Acetaminophen 325 Mg Tablet PO Q6H PRN Pain, Mild (Pain Scale 1-3) Albuterol Sulfate 1 puff 05/16/20 19:48 05/16/20 22:30 Albuterol Sulfate 90 Mcg 8 Gm Inhaler INHALE 1 puff QID PRN Administration Shortness Of Breath Amitriptyline HCl 100 mg 05/16/20 21:00 05/16/20 20:20 Amitriptyline Hcl 50 Mg Tablet PO 100 mg BEDTIME MICHELLE Administration Aspirin 81 mg 05/17/20 09:00 05/17/20 08:27 Aspirin Enteric Coated 81 Mg Tablet. PO 81 mg DAILY MICHELLE Administration Atorvastatin Calcium 80 mg 05/17/20 09:00 05/17/20 08:28 Atorvastatin Calcium 80 Mg Tablet PO 80 mg DAILY MICHELLE Administration Cyclobenzaprine HCl 10 mg 05/16/20 19:50 Cyclobenzaprine Hcl 10 Mg Tablet PO BEDTIME PRN Muscle Spasm Dexamethasone Sodium Phosphate 6 mg 05/17/20 09:00 05/17/20 08:27 Dexamethasone Sod Phosphate 4 Mg/Ml Vial IVPUSH 6 mg DAILY MICHELLE Administration Doxazosin Mesylate 8 mg 05/16/20 21:00 05/16/20 20:20 Doxazosin Mesylate 2 Mg Tablet PO 8 mg BEDTIME MICHELLE Administration Duloxetine HCl 60 mg 05/17/20 09:00 05/17/20 08:28 Duloxetine Hcl 60 Mg Capsule.Dr PO 60 mg DAILY MICHELLE Administration Enoxaparin Sodium 40 mg 05/16/20 20:00 05/16/20 20:19 Enoxaparin Sodium 40 Mg/0.4 Ml Syringe SUBCUT 40 mg Q24H MICHELLE Administration Finasteride 5 mg 05/17/20 09:00 05/17/20 08:28 Finasteride 5 Mg Tablet PO 5 mg DAILY MICHELLE Administration Fluticasone Propionate 2 puff 05/17/20 08:00 05/17/20 07:50 Fluticasone Propionate 250 Mcg Blst.W.Dev INHALE 2 puff RBID MICHELLE Administration Naproxen 500 mg 05/16/20 19:30 Naproxen 500 Mg Tablet PO BID PRN pain Pregabalin 75 mg 05/16/20 21:00 05/17/20 08:28 Pregabalin 75 Mg Capsule PO 75 mg BID MICHELLE Administration Ropinirole HCl 2 mg 05/16/20 21:00 05/17/20 08:28 Ropinirole Hcl 2 Mg Tablet PO 2 mg TID MICHELLE Administration Sodium Chloride 3 ml 05/16/20 19:12 05/17/20 08:27 0.9 % Sodium Chloride Flush 3 Ml Syringe IVFLUSH 3 ml QSHIFT MICHELLE Administration Labs CBC & Chem 7: 05/16/20 09:25 05/16/20 10:24 Assessment and Plan (1) Pneumonia due to COVID-19 virus: Problem details: He has hypoxia He has unremarkable creatinine and LFTs He has no secondary infection seen He has had symptoms within a week Status: Acute (2) JEFFRY on CPAP: Status: Acute (3) Morbid obesity: Status: Acute Assessment and Plan: 65-year-old male, morbidly obese with obstructive sleep apnea,chronic obstructive pulmonary disease, presenting with COVID-19 associated with acute hypoxic respiratory failure that has not responded to outpatient management. PLAN: 1. Acute respiratory failure, associated with COVID-19 pneumonia. -Wean O2 as samuel -Dexamethasone D2 -Has completed course of Azithro -ID to asses for need for Remdesevir 2. COPD. He does not have any obvious exacerbation. -Inhalers by MDI -steroid as above 3. Morbid obesity. complicated his health issues, aware he needs to loose weight, goal about loosing 50 4. Hyperlipidemia. Hold statin because of rise in LFTs. 5. Peripheral neuropathy/restless legs. Continue pregabalin and ropinirole. 6. BPH and bladder outlet obstruction. Continue terazosin. 7. For DVT prop 8. JEFFRY--CPAP at night
--- NOTE | 2020-05-17 15:34 | W.PM.IDCN ---
History of Present Illness Data of Consult Service Date: 05/17/20 Requesting physician: Mg Mccord Primary Care Provider: YUMIKO Mathis HPI Reason for consult: COVID He presents to hospital with cough shortness of breath and fatigue. His and he were diagnosed with COVID 7 days ago. 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 but was ill with COVID He has hypoxia and is on 3 liters He has no productive sputum Review of Systems Review of Systems: Yes all other systems are reviewed and are negative [facility] Past Medical History Medical History Bladder outlet obstruction Chronic cystitis COPD (chronic obstructive pulmonary disease) COPD (chronic obstructive pulmonary disease) MATUTE (dyspnea on exertion) History of diverticulitis History of umbilical hernia Injury of right rotator cuff Morbid obesity JEFFRY (obstructive sleep apnea) JEFFRY on CPAP Restless leg syndrome Restrictive lung disease Traumatic complete tear of right rotator cuff Family History Family History Father Arthritis Diabetes Mother Arthritis Kidney stones Family/Other Arthritis Sister No problems noted. Sister No problems noted. Son No problems noted. Family history: reviewed and not pertinent Surgical History Surgical History History of appendectomy History of arthroscopy of left knee Social History Social History Household Members: Family Housing: House Do you presently have visiting nurse or other home services: No Alcohol intake: current Alcohol intake frequency: a few times a week Alcohol type: beer Smoking Status: Former smoker Smoked in Last 30 Days: No Use of substances other than those prescribed or required for medical reasons: Yes Substance Use Type: Marijuana Substance Use Frequency: Daily Currently Displaying Signs/Symptoms of Drug Intoxication Withdrawal: No Have you been hit, kicked, punched, or otherwise hurt by someone within the past year? If so, by whom?: No Do you feel safe in your current relationship?: Yes Is there a partner from a previous relationship who is making you feel unsafe now?: No Are you made to feel afraid or neglected: No Advance Directives: Yes Advance Directives Information Provided: Yes Advance Directives on File: No Advance Directives Date on File: 05/16/20 Do you have thoughts of harming others: None Do you have a plan to hurt others: No Plan Recently lost weight without trying: No service: No Current occupational status: employed Current occupation: [employer] Allergies Allergy/AdvReac Type Severity Reaction Status Date / Time No Known Allergies Allergy Verified 03/13/20 15:26 [No Known Allergies*] Active Medications: Current Medications Generic Name Dose Route Start Last Admin Trade Name Freq PRN Reason Stop Dose Admin Acetaminophen 650 mg 05/16/20 19:12 Acetaminophen 325 Mg Tablet PO Q6H PRN Pain, Mild (Pain Scale 1-3) Albuterol Sulfate 1 puff 05/16/20 19:48 05/16/20 22:30 Albuterol Sulfate 90 Mcg 8 Gm Inhaler INHALE 1 puff QID PRN Administration Shortness Of Breath Amitriptyline HCl 100 mg 05/16/20 21:00 05/16/20 20:20 Amitriptyline Hcl 50 Mg Tablet PO 100 mg BEDTIME MICHELLE Administration Aspirin 81 mg 05/17/20 09:00 05/17/20 08:27 Aspirin Enteric Coated 81 Mg Tablet. PO 81 mg DAILY MICHELLE Administration Atorvastatin Calcium 80 mg 05/17/20 09:00 05/17/20 08:28 Atorvastatin Calcium 80 Mg Tablet PO 80 mg DAILY MICHELLE Administration Cyclobenzaprine HCl 10 mg 05/16/20 19:50 Cyclobenzaprine Hcl 10 Mg Tablet PO BEDTIME PRN Muscle Spasm Dexamethasone Sodium Phosphate 6 mg 05/17/20 09:00 05/17/20 08:27 Dexamethasone Sod Phosphate 4 Mg/Ml Vial IVPUSH 6 mg DAILY MICHELLE Administration Doxazosin Mesylate 8 mg 05/16/20 21:00 05/16/20 20:20 Doxazosin Mesylate 2 Mg Tablet PO 8 mg BEDTIME MICHELLE Administration Duloxetine HCl 60 mg 05/17/20 09:00 05/17/20 08:28 Duloxetine Hcl 60 Mg Capsule. PO 60 mg DAILY MICHELLE Administration Enoxaparin Sodium 40 mg 05/16/20 20:00 05/16/20 20:19 Enoxaparin Sodium 40 Mg/0.4 Ml Syringe SUBCUT 40 mg Q24H MICHELLE Administration Finasteride 5 mg 05/17/20 09:00 05/17/20 08:28 Finasteride 5 Mg Tablet PO 5 mg DAILY MICHELLE Administration Fluticasone Propionate 2 puff 05/17/20 08:00 05/17/20 07:50 Fluticasone Propionate 250 Mcg Blst.W.Dev INHALE 2 puff RBID MICHELLE Administration Remdesivir 200 mg/ Sodium 210 mls @ 105 mls/hr 05/17/20 18:00 Chloride IV 05/17/20 19:59 ONCE ONE Remdesivir 100 mg/ Sodium 230 mls @ 115 mls/hr 05/18/20 18:00 Chloride IV 05/21/20 19:59 Q24H MICHELLE Melatonin 6 mg 05/17/20 21:00 Melatonin 3 Mg Tablet PO BEDTIME PRN Insomnia Naproxen 500 mg 05/16/20 19:30 Naproxen 500 Mg Tablet PO BID PRN pain Pregabalin 75 mg 05/16/20 21:00 05/17/20 08:28 Pregabalin 75 Mg Capsule PO 75 mg BID MICHELLE Administration Ropinirole HCl 2 mg 05/16/20 21:00 05/17/20 13:37 Ropinirole Hcl 2 Mg Tablet PO 2 mg TID MICHELLE Administration Sodium Chloride 3 ml 05/16/20 19:12 05/17/20 08:27 0.9 % Sodium Chloride Flush 3 Ml Syringe IVFLUSH 3 ml QSHIFT MICHELLE Administration Home Medications Medication Instructions Recorded Confirmed Last Taken Type albuterol sulfate 90 mcg/actuation 1 inh INHALATION QID PRN 11/17/19 05/16/20 05/16/20 History aerosol inhaler amitriptyline 100 mg tablet 100 mg PO BEDTIME 11/17/19 05/16/20 05/15/20 History duloxetine 60 mg capsule,delayed 60 mg PO DAILY 11/17/19 05/16/20 05/16/20 History release fluticasone propionate 110 4 puff INHALATION BID 11/17/19 05/16/20 05/16/20 History mcg/actuation HFA aerosol inhaler pregabalin 75 mg capsule 75 mg PO BID cap 11/17/19 05/16/20 05/16/20 08:00 History methocarbamol 500 mg tablet 500 mg PO BEDTIME PRN tab 02/09/20 05/16/20 Unknown History umeclidinium 62.5 mcg-vilanterol 1 inh INHALATION DAILY 03/13/20 05/16/20 05/16/20 History 25 mcg/actuation powdr for inhalation ropinirole 2 mg PO TID 05/16/20 05/16/20 05/16/20 History terazosin 10 mg PO BEDTIME 05/16/20 05/16/20 Unknown History Physical Exam Vital Signs: Vital Signs: Last Vital Signs Temp 97.0 F 05/17/20 15:11 Pulse 100 05/17/20 15:11 Resp 20 05/17/20 15:11 BP 140/80 H 05/17/20 15:11 Pulse Ox 93 05/17/20 15:11 Body Mass Index 42.5 Const: General: cooperative Orientation/consciousness: patient oriented x3 HENMT: Head: Yes normal to inspection Mouth: Normal oral and palatal mucosa present Resp: Effort & Inspection: able to speak in complete sentences Cardio: Rate: regular rate Rhythm: regular rhythm GI: Palpation (GI): Soft to palpation and nontender Skin: General skin exam: no rashes or lesions noted Neuro: General: patient oriented x3 Results Labs CBC & Chem 7: 05/16/20 09:25 05/16/20 10:24 Microbiology Microbiology Results: Microbiology 05/16/20 10:24 Blood - Venous Blood Culture - Preliminary No growth after 24 hours. 05/16/20 10:24 Blood - Venous Blood Culture - Preliminary No growth after 24 hours. Assessment and Plan (1) Pneumonia due to COVID-19 virus: Problem details: He has hypoxia He has unremarkable creatinine and LFTs He has no secondary infection seen He has had symptoms within a week Status: Acute Would continue oxygen Steroids per protocol Remdesivir per protocol
[2020-05-17] MEDS: Remdesivir 200 MG in 0.9 % Sodium Chloride 210 ML 105 MG IV (18:10)
[2020-05-17] MEDS: Doxazosin Mesylate 2 MG TABLET 8 MG PO (20:11)
[2020-05-17] MEDS: Enoxaparin Sodium 40 MG/0.4 ML SYRINGE SUBCUT (20:12)
[2020-05-17] MEDS: Amitriptyline HCl 50 MG TABLET 100 MG PO (20:12)
[2020-05-18] VITALS (9 sets, daily range): BP systolic 107–136; BP diastolic 66–86; PULSE 85–107; RESP 16–29; TEMP 35.9–36.3; O2SAT 89–95
[2020-05-18] MEDS: 0.9 % Sodium Chloride Flush 3 ML SYRINGE IVFLUSH ×3 (00:14→17:26)
[2020-05-18] MEDS: Fluticasone Propionate 250 MCG BLST.W.DEV 2 PUFF INHALE ×2 (08:02→19:56)
[2020-05-18] MEDS: Aspirin Enteric Coated 81 MG TABLET.DR PO (09:59)
[2020-05-18] MEDS: rOPINIRole HCL 2 MG TABLET PO ×3 (09:59→20:14)
[2020-05-18] MEDS: DULoxetine HCl 60 MG CAPSULE.DR PO (09:59)
[2020-05-18] MEDS: Atorvastatin Calcium 80 MG TABLET PO (09:59)
[2020-05-18] MEDS: dexAMETHasone sod phosphate 4 MG/ML VIAL 6 MG IVPUSH (09:59)
[2020-05-18] MEDS: Pregabalin 75 MG CAPSULE PO ×2 (09:59→20:14)
[2020-05-18] MEDS: Finasteride 5 MG TABLET PO (10:01)
--- NOTE | 2020-05-18 10:42 | P.PNIM_ITS ---
Subjective Subjective Date of Service: 05/18/20 Interval History: f/u on covid, resp failure. Feels better, still on O2 at 4 [place] Review of Systems Gen: no fever Resp: + sob, no cough CV: no chest, no MATUTE, no leg edema GI: No n/v, no abd pain Neuro: No confusion Physical Exam Vital Signs: Vital Signs: Last Vital Signs Temp 96.7 F L 05/18/20 07:46 Pulse 107 H 05/18/20 07:46 Resp 29 H 05/18/20 07:46 BP 107/66 05/18/20 07:46 Pulse Ox 89 L 05/18/20 07:46 Body Mass Index 42.5 Objective Data Current Medications Generic Name Dose Route Start Last Admin Trade Name Freq PRN Reason Stop Dose Admin Acetaminophen 650 mg 05/16/20 19:12 Acetaminophen 325 Mg Tablet PO Q6H PRN Pain, Mild (Pain Scale 1-3) Albuterol Sulfate 1 puff 05/16/20 19:48 05/16/20 22:30 Albuterol Sulfate 90 Mcg 8 Gm Inhaler INHALE 1 puff QID PRN Administration Shortness Of Breath Amitriptyline HCl 100 mg 05/16/20 21:00 05/17/20 20:12 Amitriptyline Hcl 50 Mg Tablet PO 100 mg BEDTIME MICHELLE Administration Aspirin 81 mg 05/17/20 09:00 05/18/20 09:59 Aspirin Enteric Coated 81 Mg Tablet. PO 81 mg DAILY MICHELLE Administration Atorvastatin Calcium 80 mg 05/17/20 09:00 05/18/20 09:59 Atorvastatin Calcium 80 Mg Tablet PO 80 mg DAILY MICHELLE Administration Cyclobenzaprine HCl 10 mg 05/16/20 19:50 Cyclobenzaprine Hcl 10 Mg Tablet PO BEDTIME PRN Muscle Spasm Dexamethasone Sodium Phosphate 6 mg 05/17/20 09:00 05/18/20 09:59 Dexamethasone Sod Phosphate 4 Mg/Ml Vial IVPUSH 6 mg DAILY MICHELLE Administration Doxazosin Mesylate 8 mg 05/16/20 21:00 05/17/20 20:11 Doxazosin Mesylate 2 Mg Tablet PO 8 mg BEDTIME MICHELLE Administration Duloxetine HCl 60 mg 05/17/20 09:00 05/18/20 09:59 Duloxetine Hcl 60 Mg Capsule. PO 60 mg DAILY MICHELLE Administration Enoxaparin Sodium 40 mg 05/16/20 20:00 05/17/20 20:12 Enoxaparin Sodium 40 Mg/0.4 Ml Syringe SUBCUT 40 mg Q24H MICHELLE Administration Finasteride 5 mg 05/17/20 09:00 05/18/20 10:01 Finasteride 5 Mg Tablet PO 5 mg DAILY MICHELLE Administration Fluticasone Propionate 2 puff 05/17/20 08:00 05/18/20 08:02 Fluticasone Propionate 250 Mcg Blst.W.Dev INHALE 2 puff RBID MICHELLE Administration Remdesivir 100 mg/ Sodium 230 mls @ 115 mls/hr 05/18/20 18:00 Chloride IV 05/21/20 19:59 Q24H MICHELLE Melatonin 6 mg 05/17/20 21:00 Melatonin 3 Mg Tablet PO BEDTIME PRN Insomnia Naproxen 500 mg 05/16/20 19:30 Naproxen 500 Mg Tablet PO BID PRN pain Pregabalin 75 mg 05/16/20 21:00 05/18/20 09:59 Pregabalin 75 Mg Capsule PO 75 mg BID MICHELLE Administration Ropinirole HCl 2 mg 05/16/20 21:00 05/18/20 09:59 Ropinirole Hcl 2 Mg Tablet PO 2 mg TID MICHELLE Administration Sodium Chloride 3 ml 05/16/20 19:12 05/18/20 09:59 0.9 % Sodium Chloride Flush 3 Ml Syringe IVFLUSH 3 ml QSHIFT MICHELLE Administration Labs CBC & Chem 7: 05/16/20 09:25 05/16/20 10:24 Microbiology Microbiology Results: Microbiology 05/16/20 10:24 Blood - Venous Blood Culture - Preliminary No growth after 24 hours. 05/16/20 10:24 Blood - Venous Blood Culture - Preliminary No growth after 24 hours. Assessment and Plan (1) Pneumonia due to COVID-19 virus: Problem details: He has hypoxia He has unremarkable creatinine and LFTs He has no secondary infection seen He has had symptoms within a week Status: Acute (2) JEFFRY on CPAP: Status: Acute (3) Morbid obesity: Status: Acute Assessment and Plan: 65-year-old male, morbidly obese with obstructive sleep apnea,chronic obstructive pulmonary disease, presenting with COVID-19 associated with acute hypoxic respiratory failure that has not responded to outpatient management. PLAN: 1. Acute respiratory failure, associated with COVID-19 pneumonia. -Wean O2 as samuel -Dexamethasone D2 -Has completed course of Azithro -ID to asses for need for Remdesevir 2. COPD. He does not have any obvious exacerbation. -Inhalers by MDI -steroid as above 3. Morbid obesity. complicated his health issues, aware he needs to loose weight, goal about loosing 50 4. Hyperlipidemia. Hold statin because of rise in LFTs. 5. Peripheral neuropathy/restless legs. Continue pregabalin and ropinirole. 6. BPH and bladder outlet obstruction. Continue terazosin. 7. For DVT prop 8. JEFFRY--CPAP at night
--- NOTE | 2020-05-18 10:43 | P.PNIM_ITS ---
Subjective Subjective Date of Service: 05/18/20 Interval History: f/u on covid, resp failure. Feels better, still on O2 at 4 [place] Review of Systems Gen: no fever Resp: + sob, no cough CV: no chest, no MATUTE, no leg edema GI: No n/v, no abd pain Neuro: No confusion Physical Exam Vital Signs: Vital Signs: Last Vital Signs Temp 96.7 F L 05/18/20 07:46 Pulse 107 H 05/18/20 07:46 Resp 29 H 05/18/20 07:46 BP 107/66 05/18/20 07:46 Pulse Ox 89 L 05/18/20 07:46 Body Mass Index 42.5 General: AO X 3, no acute distress, full sentences Resp: normal effort, no accessory muscl--no ausculation d/t active covid CVS: S1,S2,RRR GI: , NT, no distention Skin: No rash, sreina leg chronic venous stasis Neuro: motor grossly intact Psych: appropriate affect Objective Data Current Medications Generic Name Dose Route Start Last Admin Trade Name Inocencioq PRN Reason Stop Dose Admin Acetaminophen 650 mg 05/16/20 19:12 Acetaminophen 325 Mg Tablet PO Q6H PRN Pain, Mild (Pain Scale 1-3) Albuterol Sulfate 1 puff 05/16/20 19:48 05/16/20 22:30 Albuterol Sulfate 90 Mcg 8 Gm Inhaler INHALE 1 puff QID PRN Administration Shortness Of Breath Amitriptyline HCl 100 mg 05/16/20 21:00 05/17/20 20:12 Amitriptyline Hcl 50 Mg Tablet PO 100 mg BEDTIME MICHELLE Administration Aspirin 81 mg 05/17/20 09:00 05/18/20 09:59 Aspirin Enteric Coated 81 Mg Tablet. PO 81 mg DAILY MICHELLE Administration Atorvastatin Calcium 80 mg 05/17/20 09:00 05/18/20 09:59 Atorvastatin Calcium 80 Mg Tablet PO 80 mg DAILY MICHELLE Administration Cyclobenzaprine HCl 10 mg 05/16/20 19:50 Cyclobenzaprine Hcl 10 Mg Tablet PO BEDTIME PRN Muscle Spasm Dexamethasone Sodium Phosphate 6 mg 05/17/20 09:00 05/18/20 09:59 Dexamethasone Sod Phosphate 4 Mg/Ml Vial IVPUSH 6 mg DAILY MICHELLE Administration Doxazosin Mesylate 8 mg 05/16/20 21:00 05/17/20 20:11 Doxazosin Mesylate 2 Mg Tablet PO 8 mg BEDTIME MICHELLE Administration Duloxetine HCl 60 mg 05/17/20 09:00 05/18/20 09:59 Duloxetine Hcl 60 Mg Capsule.Dr PO 60 mg DAILY MICHELLE Administration Enoxaparin Sodium 40 mg 05/16/20 20:00 05/17/20 20:12 Enoxaparin Sodium 40 Mg/0.4 Ml Syringe SUBCUT 40 mg Q24H MICHELLE Administration Finasteride 5 mg 05/17/20 09:00 05/18/20 10:01 Finasteride 5 Mg Tablet PO 5 mg DAILY MICHELLE Administration Fluticasone Propionate 2 puff 05/17/20 08:00 05/18/20 08:02 Fluticasone Propionate 250 Mcg Blst.W.Dev INHALE 2 puff RBID MICHELLE Administration Guaifenesin/Dextromethorphan 1 tab 05/18/20 10:45 Guaifenesin Dm 600/30 1 Tab Tab.Er.12h PO BID [facility] Remdesivir 100 mg/ Sodium 230 mls @ 115 mls/hr 05/18/20 18:00 Chloride IV 05/21/20 19:59 Q24H [facility] Melatonin 6 mg 05/17/20 21:00 Melatonin 3 Mg Tablet PO BEDTIME PRN Insomnia Naproxen 500 mg 05/16/20 19:30 Naproxen 500 Mg Tablet PO BID PRN pain Pregabalin 75 mg 05/16/20 21:00 05/18/20 09:59 Pregabalin 75 Mg Capsule PO 75 mg BID MICHELLE Administration Ropinirole HCl 2 mg 05/16/20 21:00 05/18/20 09:59 Ropinirole Hcl 2 Mg Tablet PO 2 mg TID [facility] Administration Sodium Chloride 3 ml 05/16/20 19:12 05/18/20 09:59 0.9 % Sodium Chloride Flush 3 Ml Syringe IVFLUSH 3 ml QSHIFT [facility] Administration Labs CBC & Chem 7: 05/16/20 09:25 05/16/20 10:24 Microbiology Microbiology Results: Microbiology 05/16/20 10:24 Blood - Venous Blood Culture - Preliminary No growth after 24 hours. 05/16/20 10:24 Blood - Venous Blood Culture - Preliminary No growth after 24 hours. Assessment and Plan (1) Pneumonia due to COVID-19 virus: Problem details: He has hypoxia He has unremarkable creatinine and LFTs He has no secondary infection seen He has had symptoms within a week Status: Acute (2) JEFFRY on CPAP: Status: Acute (3) Morbid obesity: Status: Acute Assessment and Plan: 65-year-old male, morbidly obese with obstructive sleep apnea,chronic obstructive pulmonary disease, presenting with COVID-19 associated with acute hypoxic respiratory failure that has not responded to outpatient management. PLAN: 1. Acute respiratory failure, associated with COVID-19 pneumonia. -Wean O2 as samuel -Dexamethasone D3 -Remdesevir D2/5 -Has completed course of Azithro 2. COPD. He does not have any obvious exacerbation. -Inhalers by MDI -steroid as above 3. Morbid obesity. complicated his health issues, aware he needs to loose weight, goal about loosing 50 4. Hyperlipidemia. Hold statin because of rise in LFTs. 5. Peripheral neuropathy/restless legs. Continue pregabalin and ropinirole. 6. BPH and bladder outlet obstruction. Continue terazosin. 7. For DVT prop 8. JEFFRY--CPAP at night
[2020-05-18] MEDS: guaiFENesin DM 600/30 1 TAB TAB.ER.12H PO ×2 (12:53→20:14)
[2020-05-18] MEDS: Remdesivir 100 MG in 0.9 % Sodium Chloride 230 ML 115 MG IV (17:26)
[2020-05-18] MEDS: Enoxaparin Sodium 40 MG/0.4 ML SYRINGE SUBCUT (20:15)
[2020-05-18] MEDS: Doxazosin Mesylate 2 MG TABLET 8 MG PO (20:15)
[2020-05-18] MEDS: Amitriptyline HCl 50 MG TABLET 100 MG PO (20:15)
[2020-05-19] VITALS (7 sets, daily range): BP systolic 109–149; BP diastolic 65–93; PULSE 86–109; RESP 20–24; TEMP 35.7–36.3; O2SAT 90–96; BMI 45.7
[2020-05-19] MEDS: 0.9 % Sodium Chloride Flush 3 ML SYRINGE IVFLUSH ×4 (00:08→21:14)
[2020-05-19] MEDS: Finasteride 5 MG TABLET PO (09:16)
[2020-05-19] MEDS: dexAMETHasone sod phosphate 4 MG/ML VIAL 6 MG IVPUSH (09:16)
[2020-05-19] MEDS: Pregabalin 75 MG CAPSULE PO ×2 (09:16→21:08)
[2020-05-19] MEDS: Atorvastatin Calcium 80 MG TABLET PO (09:16)
[2020-05-19] MEDS: Aspirin Enteric Coated 81 MG TABLET.DR PO (09:16)
[2020-05-19] MEDS: DULoxetine HCl 60 MG CAPSULE.DR PO (09:16)
[2020-05-19] MEDS: guaiFENesin DM 600/30 1 TAB TAB.ER.12H PO ×2 (09:16→21:08)
[2020-05-19] MEDS: rOPINIRole HCL 2 MG TABLET PO ×3 (09:16→21:08)
[2020-05-19] MEDS: Fluticasone Propionate 250 MCG BLST.W.DEV 2 PUFF INHALE ×2 (09:28→20:26)
--- NOTE | 2020-05-19 11:31 | MHC.CM.PN ---
Patient continues to require O2 at 4 liters via NC r/t COVID+. Also on IV Dexamethasone day 04/26 and IV Remdesivir day 2/. Discharge plan is to return home no services. Family will provide transport. CM will continue to follow patient for discharge needs.
--- NOTE | 2020-05-19 13:17 | HO.PM.IMPN ---
Subjective Subjective Date of Service: 05/19/20 Interval History: f/u on covid, resp failure. He feels very winded with minimal activity and remains on high flow O2 Review of Systems Gen: no fever Resp: + sob, no cough CV: no chest, no MATUTE, no leg edema GI: No n/v, no abd pain Neuro: No confusion Physical Exam Vital Signs: Vital Signs: Last Vital Signs Temp 96.9 F 05/19/20 11:00 Pulse 93 05/19/20 11:00 Resp 23 H 05/19/20 11:00 BP 132/65 05/19/20 11:00 Pulse Ox 91 L 05/19/20 11:00 Body Mass Index 42.5 General: AO X 3, no acute distress Resp: Normal respiratory effort CVS: S1,S2,RRR GI: +BS, NT, no distention Skin: No rash bilateral leg stasis dermatitis Neuro: motor grossly intact Psych: appropriate affect Objective Data Current Medications Generic Name Dose Route Start Last Admin Trade Name Freq PRN Reason Stop Dose Admin Acetaminophen 650 mg 05/16/20 19:12 Acetaminophen 325 Mg Tablet PO Q6H PRN Pain, Mild (Pain Scale 1-3) Albuterol Sulfate 1 puff 05/16/20 19:48 05/16/20 22:30 Albuterol Sulfate 90 Mcg 8 Gm Inhaler INHALE 1 puff QID PRN Administration Shortness Of Breath Amitriptyline HCl 100 mg 05/16/20 21:00 05/18/20 20:15 Amitriptyline Hcl 50 Mg Tablet PO 100 mg BEDTIME MICHELLE Administration Aspirin 81 mg 05/17/20 09:00 05/19/20 09:16 Aspirin Enteric Coated 81 Mg Tablet.Dr PO 81 mg DAILY MICHELLE Administration Atorvastatin Calcium 80 mg 05/17/20 09:00 05/19/20 09:16 Atorvastatin Calcium 80 Mg Tablet PO 80 mg DAILY MICHELLE Administration Cyclobenzaprine HCl 10 mg 05/16/20 19:50 Cyclobenzaprine Hcl 10 Mg Tablet PO BEDTIME PRN Muscle Spasm Dexamethasone Sodium Phosphate 6 mg 05/17/20 09:00 05/19/20 09:16 Dexamethasone Sod Phosphate 4 Mg/Ml Vial IVPUSH 6 mg DAILY MICHELLE Administration Doxazosin Mesylate 8 mg 05/16/20 21:00 05/18/20 20:15 Doxazosin Mesylate 2 Mg Tablet PO 8 mg BEDTIME MICHELLE Administration Duloxetine HCl 60 mg 05/17/20 09:00 05/19/20 09:16 Duloxetine Hcl 60 Mg Capsule.Dr PO 60 mg DAILY MICHELLE Administration Enoxaparin Sodium 40 mg 05/16/20 20:00 05/18/20 20:15 Enoxaparin Sodium 40 Mg/0.4 Ml Syringe SUBCUT 40 mg Q24H MICHELLE Administration Finasteride 5 mg 05/17/20 09:00 05/19/20 09:16 Finasteride 5 Mg Tablet PO 5 mg DAILY MICHELLE Administration Fluticasone Propionate 2 puff 05/17/20 08:00 05/19/20 09:28 Fluticasone Propionate 250 Mcg Blst.W.Dev INHALE 2 puff RBID MICHELLE Administration Guaifenesin/Dextromethorphan 1 tab 05/18/20 10:45 05/19/20 09:16 Guaifenesin Dm 600/30 1 Tab Tab.Er.12h PO 1 tab BID MICHELLE Administration Remdesivir 100 mg/ Sodium 230 mls @ 115 mls/hr 05/18/20 18:00 05/18/20 20:16 Chloride IV 05/21/20 19:59 Infused Q24H MICHELLE Infusion Melatonin 6 mg 05/17/20 21:00 Melatonin 3 Mg Tablet PO BEDTIME PRN Insomnia Naproxen 500 mg 05/16/20 19:30 Naproxen 500 Mg Tablet PO BID PRN pain Pregabalin 75 mg 05/16/20 21:00 05/19/20 09:16 Pregabalin 75 Mg Capsule PO 75 mg BID MICHELLE Administration Ropinirole HCl 2 mg 05/16/20 21:00 05/19/20 09:16 Ropinirole Hcl 2 Mg Tablet PO 2 mg TID MICHELLE Administration Sodium Chloride 3 ml 05/16/20 19:12 05/19/20 09:17 0.9 % Sodium Chloride Flush 3 Ml Syringe IVFLUSH 3 ml QSHIFT MICHELLE Administration Labs CBC & Chem 7: 05/16/20 09:25 05/16/20 10:24 Microbiology Microbiology Results: Microbiology 05/16/20 10:24 Blood - Venous Blood Culture - Preliminary No growth after 48 hours. 05/16/20 10:24 Blood - Venous Blood Culture - Preliminary No growth after 48 hours. Assessment and Plan (1) Pneumonia due to COVID-19 virus: Problem details: He has hypoxia He has unremarkable creatinine and LFTs He has no secondary infection seen He has had symptoms within a week Status: Acute (2) JEFFRY on CPAP: Status: Acute (3) Morbid obesity: Status: Acute Assessment and Plan: 65-year-old male, morbidly obese with obstructive sleep apnea,chronic obstructive pulmonary disease, presenting with COVID-19 associated with acute hypoxic respiratory failure that has not responded to outpatient management. PLAN: 1. Acute respiratory failure, associated with COVID-19 pneumonia.--remains hypoxic and get short of breath with minimal effort -Wean O2 as samuel -Dexamethasone D3 -Remdesevir D3/5 -Has completed course of Azithro 2. COPD. He does not have any obvious exacerbation. -Inhalers by [facility]I -steroid as above 3. Morbid obesity. complicates his health issues, especially JEFFRY, aware he needs to loose weight, goal about loosing 50 4. Hyperlipidemia. Hold statin because of rise in LFTs. 5. Peripheral neuropathy/restless legs. Continue pregabalin and ropinirole. 6. BPH and bladder outlet obstruction. Continue terazosin. 7. For DVT prop 8. JEFFRY--CPAP at night
[2020-05-19] MEDS: Remdesivir 100 MG in 0.9 % Sodium Chloride 230 ML 115 MG IV (17:06)
--- NOTE | 2020-05-19 18:46 | PC.NURSE ---
Patient OOB to recliner for most of the day. Patient SATing in the high 80s/low 90s. Easily winded when transferring. No complaints, no complications.
[2020-05-19] MEDS: Enoxaparin Sodium 40 MG/0.4 ML SYRINGE SUBCUT (21:04)
[2020-05-19] MEDS: Doxazosin Mesylate 2 MG TABLET 8 MG PO (21:05)
[2020-05-19] MEDS: Amitriptyline HCl 50 MG TABLET 100 MG PO (21:08)
[2020-05-19] MEDS: Melatonin 3 MG TABLET 6 MG PO (21:08)
[2020-05-20] VITALS (10 sets, daily range): BP systolic 108–142; BP diastolic 68–89; PULSE 87–108; RESP 16–22; TEMP 36.1–36.7; O2SAT 88–111
[2020-05-20] MEDS: Fluticasone Propionate 250 MCG BLST.W.DEV 2 PUFF INHALE ×2 (08:35→20:02)
[2020-05-20] MEDS: DULoxetine HCl 60 MG CAPSULE.DR PO (09:12)
[2020-05-20] MEDS: 0.9 % Sodium Chloride Flush 3 ML SYRINGE IVFLUSH ×3 (09:12→20:25)
[2020-05-20] MEDS: Finasteride 5 MG TABLET PO (09:12)
[2020-05-20] MEDS: rOPINIRole HCL 2 MG TABLET PO ×3 (09:12→20:24)
[2020-05-20] MEDS: Pregabalin 75 MG CAPSULE PO ×2 (09:12→20:24)
[2020-05-20] MEDS: dexAMETHasone sod phosphate 4 MG/ML VIAL 6 MG IVPUSH (09:12)
[2020-05-20] MEDS: Aspirin Enteric Coated 81 MG TABLET.DR PO (09:12)
[2020-05-20] MEDS: guaiFENesin DM 600/30 1 TAB TAB.ER.12H PO ×2 (09:12→20:24)
[2020-05-20] MEDS: Atorvastatin Calcium 80 MG TABLET PO (09:21)
--- NOTE | 2020-05-20 11:14 | HO.PM.IMPN ---
Subjective Subjective Date of Service: 05/20/20 Interval History: f/u on covid, resp failure. He slept well, feels better today, remains hypoxi with O2 around 88 on 4 liter, but clinically looks better Review of Systems Gen: no fever Resp: + sob, + cough CV: no chest, no MATUTE, no leg edema GI: No n/v, no abd pain Neuro: No confusion Physical Exam Vital Signs: Vital Signs: Last Vital Signs Temp 97.2 F 05/20/20 08:00 Pulse 92 05/20/20 08:00 Resp 22 H 05/20/20 08:00 BP 108/75 05/20/20 08:00 Pulse Ox 88 L 05/20/20 08:00 Body Mass Index 45.7 Const: General: cooperative Orientation/consciousness: patient oriented x3 Resp: Other: No accessory muscle use Effort & Inspection: able to speak in complete sentences Cardio: Rate: regular rate Rhythm: regular rhythm GI: Palpation (GI): Soft to palpation and nontender Skin: General skin exam: no rashes or lesions noted Neuro: General: patient oriented x3 Objective Data Current Medications Generic Name Dose Route Start Last Admin Trade Name Freq PRN Reason Stop Dose Admin Acetaminophen 650 mg 05/16/20 19:12 Acetaminophen 325 Mg Tablet PO Q6H PRN Pain, Mild (Pain Scale 1-3) Albuterol Sulfate 1 puff 05/16/20 19:48 05/16/20 22:30 Albuterol Sulfate 90 Mcg 8 Gm Inhaler INHALE 1 puff QID PRN Administration Shortness Of Breath Amitriptyline HCl 100 mg 05/16/20 21:00 05/19/20 21:08 Amitriptyline Hcl 50 Mg Tablet PO 100 mg BEDTIME MICHELLE Administration Aspirin 81 mg 05/17/20 09:00 05/20/20 09:12 Aspirin Enteric Coated 81 Mg Tablet. PO 81 mg DAILY MICHELLE Administration Atorvastatin Calcium 80 mg 05/17/20 09:00 05/20/20 09:21 Atorvastatin Calcium 80 Mg Tablet PO 80 mg DAILY MICHELLE Administration Cyclobenzaprine HCl 10 mg 05/16/20 19:50 Cyclobenzaprine Hcl 10 Mg Tablet PO BEDTIME PRN Muscle Spasm Dexamethasone Sodium Phosphate 6 mg 05/17/20 09:00 05/20/20 09:12 Dexamethasone Sod Phosphate 4 Mg/Ml Vial IVPUSH 6 mg DAILY MICHELLE Administration Doxazosin Mesylate 8 mg 05/16/20 21:00 05/19/20 21:05 Doxazosin Mesylate 2 Mg Tablet PO 8 mg BEDTIME MICHELLE Administration Duloxetine HCl 60 mg 05/17/20 09:00 05/20/20 09:12 Duloxetine Hcl 60 Mg Capsule.Dr PO 60 mg DAILY MICHELLE Administration Enoxaparin Sodium 40 mg 05/16/20 20:00 05/19/20 21:04 Enoxaparin Sodium 40 Mg/0.4 Ml Syringe SUBCUT 40 mg Q24H MICHELLE Administration Finasteride 5 mg 05/17/20 09:00 05/20/20 09:12 Finasteride 5 Mg Tablet PO 5 mg DAILY MICHELLE Administration Fluticasone Propionate 2 puff 05/17/20 08:00 05/20/20 08:35 Fluticasone Propionate 250 Mcg Blst.W.Dev INHALE 2 puff RBID MICHELLE Administration Guaifenesin/Dextromethorphan 1 tab 05/18/20 10:45 05/20/20 09:12 Guaifenesin Dm 600/30 1 Tab Tab.Er.12h PO 1 tab BID MICHELLE Administration Remdesivir 100 mg/ Sodium 230 mls @ 115 mls/hr 05/18/20 18:00 05/19/20 20:02 Chloride IV 05/21/20 19:59 Infused Q24H MICHELLE Infusion Melatonin 6 mg 05/17/20 21:00 05/19/20 21:08 Melatonin 3 Mg Tablet PO 6 mg BEDTIME PRN Administration Insomnia Naproxen 500 mg 05/16/20 19:30 Naproxen 500 Mg Tablet PO BID PRN pain Pregabalin 75 mg 05/16/20 21:00 05/20/20 09:12 Pregabalin 75 Mg Capsule PO 75 mg BID MICHELLE Administration Ropinirole HCl 2 mg 05/16/20 21:00 05/20/20 09:12 Ropinirole Hcl 2 Mg Tablet PO 2 mg TID MICHELLE Administration Sodium Chloride 3 ml 05/16/20 19:12 05/20/20 09:12 0.9 % Sodium Chloride Flush 3 Ml Syringe IVFLUSH 3 ml QSHIFT MICHELLE Administration Labs CBC & Chem 7: 05/16/20 09:25 05/16/20 10:24 Microbiology Microbiology Results: Microbiology 05/16/20 10:24 Blood - Venous Blood Culture - Preliminary No growth after 48 hours. 05/16/20 10:24 Blood - Venous Blood Culture - Preliminary No growth after 48 hours. Assessment and Plan (1) Pneumonia due to COVID-19 virus: Problem details: He has hypoxia He has unremarkable creatinine and LFTs He has no secondary infection seen He has had symptoms within a week Status: Acute (2) JEFFRY on CPAP: Status: Acute (3) Morbid obesity: Status: Acute Assessment and Plan: 65-year-old male, morbidly obese with obstructive sleep apnea,chronic obstructive pulmonary disease, presenting with COVID-19 associated with acute hypoxic respiratory failure that has not responded to outpatient management. PLAN: 1. Acute respiratory failure, associated with COVID-19 pneumonia.--remains hypoxic and get short of breath with minimal effort -Wean O2 as samuel -Dexamethasone D4 -Remdesevir D4/5 -Has completed course of Azithro 2. COPD. He does not have any obvious exacerbation. -Inhalers by MDI -steroid as above 3. Morbid obesity. complicates his health issues, especially JEFFRY, aware he needs to loose weight, goal about loosing 50 4. Hyperlipidemia. Hold statin because of rise in LFTs. 5. Peripheral neuropathy/restless legs. Continue pregabalin and ropinirole. 6. BPH and bladder outlet obstruction. Continue terazosin. 7. For DVT prop 8. JEFFRY--CPAP at night Needs continuous close monitoring for hypoxia
[2020-05-20] MEDS: Remdesivir 100 MG in 0.9 % Sodium Chloride 230 ML 115 MG IV (17:28)
[2020-05-20] MEDS: Doxazosin Mesylate 2 MG TABLET 8 MG PO (20:24)
[2020-05-20] MEDS: Amitriptyline HCl 50 MG TABLET 100 MG PO (20:24)
[2020-05-20] MEDS: Enoxaparin Sodium 40 MG/0.4 ML SYRINGE SUBCUT (20:25)
[2020-05-20] MEDS: Melatonin 3 MG TABLET 6 MG PO (20:30)
--- NOTE | 2020-05-20 23:00 | PM.IDPN ---
Subjective Subjective Date of Service: 05/20/20 Interval History: He looks improved today he is on 4 l nasal cannula Objective Data Labs CBC & Chem 7: 05/16/20 09:25 05/16/20 10:24 Microbiology Microbiology Results: Microbiology 05/16/20 10:24 Blood - Venous Blood Culture - Preliminary No growth after 48 hours. 05/16/20 10:24 Blood - Venous Blood Culture - Preliminary No growth after 48 hours. Physical Exam Vital Signs: Vital Signs: Last Vital Signs Temp 97.0 F 05/20/20 19:36 Pulse 100 05/20/20 20:24 Resp 18 05/20/20 19:36 BP 136/89 05/20/20 20:24 Pulse Ox 88 L 05/20/20 19:36 Body Mass Index 45.7 Const: General: cooperative Resp: Effort & Inspection: able to speak in complete sentences Cardio: Rate: regular rate Rhythm: regular rhythm GI: Palpation (GI): nontender Extrem: General: Yes normal to inspection Assessment and Plan Assessment and plan (1) Pneumonia due to COVID-19 virus: Problem details: He has hypoxia He has unremarkable creatinine and LFTs He has no secondary infection seen He has had symptoms within a week looks better today Status: Acute Assessment and Plan: Continue Remdesivir and steroids (2) Restrictive lung disease: Problem details: Restriction is mostly sec to Abdominal Obesity . Weight Loss recommended Do deep Breathing exercises daily Status: Acute Time Spent With Patient Time: Total time spent is greater than 50% in coordination of care (as documented) at patient's floor/unit and/or counseling patient: Time with patient: 15 - 24 minutes
[2020-05-21] VITALS (8 sets, daily range): BP systolic 100–156; BP diastolic 62–88; PULSE 93–114; RESP 18–20; TEMP 36.3–37; O2SAT 90–93
[2020-05-21] MEDS: rOPINIRole HCL 2 MG TABLET PO ×3 (08:59→21:44)
[2020-05-21] MEDS: Pregabalin 75 MG CAPSULE PO ×2 (08:59→21:49)
[2020-05-21] MEDS: Finasteride 5 MG TABLET PO (08:59)
[2020-05-21] MEDS: DULoxetine HCl 60 MG CAPSULE.DR PO (08:59)
[2020-05-21] MEDS: guaiFENesin DM 600/30 1 TAB TAB.ER.12H PO ×2 (08:59→21:44)
[2020-05-21] MEDS: Aspirin Enteric Coated 81 MG TABLET.DR PO (08:59)
[2020-05-21] MEDS: Atorvastatin Calcium 80 MG TABLET PO (08:59)
[2020-05-21] MEDS: dexAMETHasone sod phosphate 4 MG/ML VIAL 6 MG IVPUSH (08:59)
[2020-05-21] MEDS: 0.9 % Sodium Chloride Flush 3 ML SYRINGE IVFLUSH ×3 (09:00→21:54)
[2020-05-21] MEDS: Fluticasone Propionate 250 MCG BLST.W.DEV 2 PUFF INHALE ×2 (09:34→20:03)
--- NOTE | 2020-05-21 11:31 | HO.PM.IMPN ---
Subjective Subjective Date of Service: 05/21/20 Interval History: f/u on covid, resp failure. He slept well, feels better today, remains hypoxi with O2 around 90 on 4 liter, but clinically looks better and feel better Review of Systems Gen: no fever Resp: + sob, + cough CV: no chest, no MATUTE, no leg edema GI: No n/v, no abd pain Neuro: No confusion Physical Exam Vital Signs: Vital Signs: Last Vital Signs Temp 97.4 F 05/21/20 11:26 Pulse 101 H 05/21/20 11:26 Resp 20 05/21/20 11:26 BP 141/78 H 05/21/20 11:26 Pulse Ox 90 L 05/21/20 11:26 Body Mass Index 45.7 Const: Other: Const: General: cooperative Orientation/consciousness: patient oriented x3 Resp: Other: No accessory muscle use Effort & Inspection: able to speak in complete sentences Cardio: Rate: regular rate Rhythm: regular rhythm GI: Palpation (GI): Soft to palpation and nontender Skin: General skin exam: no rashes or lesions noted Neuro: General: patient oriented x3 Objective Data Current Medications Generic Name Dose Route Start Last Admin Trade Name Freq PRN Reason Stop Dose Admin Acetaminophen 650 mg 05/16/20 19:12 Acetaminophen 325 Mg Tablet PO Q6H PRN Pain, Mild (Pain Scale 1-3) Albuterol Sulfate 1 puff 05/16/20 19:48 05/16/20 22:30 Albuterol Sulfate 90 Mcg 8 Gm Inhaler INHALE 1 puff QID PRN Administration Shortness Of Breath Amitriptyline HCl 100 mg 05/16/20 21:00 05/20/20 20:24 Amitriptyline Hcl 50 Mg Tablet PO 100 mg BEDTIME MICHELLE Administration Aspirin 81 mg 05/17/20 09:00 05/21/20 08:59 Aspirin Enteric Coated 81 Mg Tablet. PO 81 mg DAILY MICHELLE Administration Atorvastatin Calcium 80 mg 05/17/20 09:00 05/21/20 08:59 Atorvastatin Calcium 80 Mg Tablet PO 80 mg DAILY MICHELLE Administration Cyclobenzaprine HCl 10 mg 05/16/20 19:50 Cyclobenzaprine Hcl 10 Mg Tablet PO BEDTIME PRN Muscle Spasm Dexamethasone Sodium Phosphate 6 mg 05/17/20 09:00 05/21/20 08:59 Dexamethasone Sod Phosphate 4 Mg/Ml Vial IVPUSH 6 mg DAILY MICHELLE Administration Doxazosin Mesylate 8 mg 05/16/20 21:00 05/20/20 20:24 Doxazosin Mesylate 2 Mg Tablet PO 8 mg BEDTIME MICHELLE Administration Duloxetine HCl 60 mg 05/17/20 09:00 05/21/20 08:59 Duloxetine Hcl 60 Mg Capsule.Dr PO 60 mg DAILY MICHELLE Administration Enoxaparin Sodium 40 mg 05/16/20 20:00 05/20/20 20:25 Enoxaparin Sodium 40 Mg/0.4 Ml Syringe SUBCUT 40 mg Q24H MICHELLE Administration Finasteride 5 mg 05/17/20 09:00 05/21/20 08:59 Finasteride 5 Mg Tablet PO 5 mg DAILY MICHELLE Administration Fluticasone Propionate 2 puff 05/17/20 08:00 05/21/20 09:34 Fluticasone Propionate 250 Mcg Blst.W.Dev INHALE 2 puff RBID MICHELLE Administration Guaifenesin/Dextromethorphan 1 tab 05/18/20 10:45 05/21/20 08:59 Guaifenesin Dm 600/30 1 Tab Tab.Er.12h PO 1 tab BID MICHELLE Administration Remdesivir 100 mg/ Sodium 230 mls @ 115 mls/hr 05/18/20 18:00 05/20/20 20:14 Chloride IV 05/21/20 19:59 Infused Q24H MICHELLE Infusion Melatonin 6 mg 05/17/20 21:00 05/20/20 20:30 Melatonin 3 Mg Tablet PO 6 mg BEDTIME PRN Administration Insomnia Naproxen 500 mg 05/16/20 19:30 Naproxen 500 Mg Tablet PO BID PRN pain Pregabalin 75 mg 05/16/20 21:00 05/21/20 08:59 Pregabalin 75 Mg Capsule PO 75 mg BID MICHELLE Administration Ropinirole HCl 2 mg 05/16/20 21:00 05/21/20 08:59 Ropinirole Hcl 2 Mg Tablet PO 2 mg TID MICHELLE Administration Sodium Chloride 3 ml 05/16/20 19:12 05/21/20 09:00 0.9 % Sodium Chloride Flush 3 Ml Syringe IVFLUSH 3 ml QSHIFT MICHELLE Administration Labs CBC & Chem 7: 05/16/20 09:25 05/16/20 10:24 Microbiology Microbiology Results: Microbiology 05/16/20 10:24 Blood - Venous Blood Culture - Preliminary No growth after 48 hours. 05/16/20 10:24 Blood - Venous Blood Culture - Preliminary No growth after 48 hours. Assessment and Plan (1) Pneumonia due to COVID-19 virus: Status: Acute (2) JEFFRY on CPAP: Status: Acute (3) Morbid obesity: Status: Acute Assessment and Plan: 65-year-old male, morbidly obese with obstructive sleep apnea,chronic obstructive pulmonary disease, presenting with COVID-19 associated with acute hypoxic respiratory failure that has not responded to outpatient management. PLAN: 1. Acute respiratory failure, associated with COVID-19 pneumonia.--remains hypoxic and get short of breath with minimal effort -Wean O2 as samuel, goal O2 89 or greater -Dexamethasone D5/10 -Remdesevir D5/5 -Has completed course of Azithro at home 2. COPD. He does not have any obvious exacerbation. -Inhalers by MDI -steroid as above 3. Morbid obesity. complicates his health issues, especially JEFFRY, aware he needs to loose weight, goal about loosing 50 4. Hyperlipidemia. Hold statin because of rise in LFTs. 5. Peripheral neuropathy/restless legs. Continue pregabalin and ropinirole. 6. BPH and bladder outlet obstruction. Continue terazosin. 7. For DVT prop 8. JEFFRY--CPAP at night Needs continuous close monitoring for hypoxia
[2020-05-21] MEDS: Remdesivir 100 MG in 0.9 % Sodium Chloride 230 ML 115 MG IV (17:42)
[2020-05-21 19:49] LABS: Alanine Aminotransferase 55 U/L (0-40); Albumin Level 3.3 g/dL (3.5-5.0); Alkaline Phosphatase 76 U/L (39-117); Aspartate Amino Transferase 29 U/L (5-37); Bilirubin Direct 0.4 mg/dL (0.0-0.5); Bilirubin Total 0.7 mg/dL (0.0-1.0); Total Protein 6.5 g/dL (6.5-8.0)
[2020-05-21] MEDS: Enoxaparin Sodium 40 MG/0.4 ML SYRINGE SUBCUT (21:44)
[2020-05-21] MEDS: Doxazosin Mesylate 2 MG TABLET 8 MG PO (21:45)
[2020-05-21] MEDS: Amitriptyline HCl 50 MG TABLET 100 MG PO (21:48)
[2020-05-21] MEDS: Melatonin 3 MG TABLET 6 MG PO (21:49)
[2020-05-22] VITALS (9 sets, daily range): BP systolic 101–150; BP diastolic 68–90; PULSE 98–110; RESP 16–20; TEMP 35.9–37.3; O2SAT 90–96
[2020-05-22 07:20] LABS: Anion Gap 11 (12-20); Blood Urea Nitrogen 18 mg/dL (9-16); Carbon Dioxide 25 mmol/L (22-29); Chloride 104 mmol/L (96-108); Creatinine Clr Calc Pharmacy 191.9; Estimated Glomerular Filt Rate > 60; Glucose Random 90 mg/dL (60-115); Potassium 4.4 mmol/L (3.3-5.1); Sodium 136 mmol/L (135-145)
[2020-05-22 07:22] LABS: C Reactive Protein 3.21 mg/dL (< or = 0.50)
[2020-05-22] MEDS: Fluticasone Propionate 250 MCG BLST.W.DEV 2 PUFF INHALE ×2 (07:29→19:54)
[2020-05-22] MEDS: 0.9 % Sodium Chloride Flush 3 ML SYRINGE IVFLUSH ×3 (08:36→22:57)
[2020-05-22] MEDS: Atorvastatin Calcium 80 MG TABLET PO (08:39)
[2020-05-22] MEDS: dexAMETHasone sod phosphate 4 MG/ML VIAL 6 MG IVPUSH (08:39)
[2020-05-22] MEDS: guaiFENesin DM 600/30 1 TAB TAB.ER.12H PO ×2 (08:39→20:04)
[2020-05-22] MEDS: rOPINIRole HCL 2 MG TABLET PO ×3 (08:39→20:03)
[2020-05-22] MEDS: Aspirin Enteric Coated 81 MG TABLET.DR PO (08:39)
[2020-05-22] MEDS: DULoxetine HCl 60 MG CAPSULE.DR PO (08:39)
[2020-05-22] MEDS: Pregabalin 75 MG CAPSULE PO ×2 (08:39→20:04)
[2020-05-22] MEDS: Finasteride 5 MG TABLET PO (08:39)
--- NOTE | 2020-05-22 09:35 | HO.PM.IMPN ---
Subjective Subjective Date of Service: 05/22/20 Interval History: f/u on covid, resp failure. He slept well, feels better today, remains hypoxi with O2 around 90 on 4 liter, but clinically looks better and feel better, get easily sob Review of Systems Gen: no fever Resp: + sob, + cough CV: no chest, no MATUTE, no leg edema GI: No n/v, no abd pain Neuro: No confusion Physical Exam Vital Signs: Vital Signs: Last Vital Signs Temp 96.6 F L 05/22/20 07:24 Pulse 106 H 05/22/20 07:24 Resp 20 05/22/20 07:24 BP 101/68 05/22/20 07:24 Pulse Ox 96 05/22/20 07:24 Body Mass Index 45.7 Const: Other: Const: General: cooperative Orientation/consciousness: patient oriented x3 Resp: Other: No accessory muscle use Effort & Inspection: able to speak in complete sentences Cardio: Rate: regular rate Rhythm: regular rhythm GI: Palpation (GI): Soft to palpation and nontender Skin: General skin exam: no rashes or lesions noted Neuro: General: patient oriented x3 General: cooperative Orientation/consciousness: patient oriented x3 Neuro: General: patient oriented x3 Objective Data Current Medications Generic Name Dose Route Start Last Admin Trade Name Freq PRN Reason Stop Dose Admin Acetaminophen 650 mg 05/16/20 19:12 Acetaminophen 325 Mg Tablet PO Q6H PRN Pain, Mild (Pain Scale 1-3) Albuterol Sulfate 1 puff 05/16/20 19:48 05/16/20 22:30 Albuterol Sulfate 90 Mcg 8 Gm Inhaler INHALE 1 puff QID PRN Administration Shortness Of Breath Amitriptyline HCl 100 mg 05/16/20 21:00 05/21/20 21:48 Amitriptyline Hcl 50 Mg Tablet PO 100 mg BEDTIME MICHELLE Administration Aspirin 81 mg 05/17/20 09:00 05/22/20 08:39 Aspirin Enteric Coated 81 Mg Tablet. PO 81 mg DAILY MICHELLE Administration Atorvastatin Calcium 80 mg 05/17/20 09:00 05/22/20 08:39 Atorvastatin Calcium 80 Mg Tablet PO 80 mg DAILY MICHELLE Administration Cyclobenzaprine HCl 10 mg 05/16/20 19:50 Cyclobenzaprine Hcl 10 Mg Tablet PO BEDTIME PRN Muscle Spasm Dexamethasone Sodium Phosphate 6 mg 05/17/20 09:00 05/22/20 08:39 Dexamethasone Sod Phosphate 4 Mg/Ml Vial IVPUSH 6 mg DAILY MICHELLE Administration Doxazosin Mesylate 8 mg 05/16/20 21:00 05/21/20 21:45 Doxazosin Mesylate 2 Mg Tablet PO 8 mg BEDTIME MICHELLE Administration Duloxetine HCl 60 mg 05/17/20 09:00 05/22/20 08:39 Duloxetine Hcl 60 Mg Capsule.Dr PO 60 mg DAILY MICHELLE Administration Enoxaparin Sodium 40 mg 05/16/20 20:00 05/21/20 21:44 Enoxaparin Sodium 40 Mg/0.4 Ml Syringe SUBCUT 40 mg Q24H MICHELLE Administration Finasteride 5 mg 05/17/20 09:00 05/22/20 08:39 Finasteride 5 Mg Tablet PO 5 mg DAILY MICHELLE Administration Fluticasone Propionate 2 puff 05/17/20 08:00 05/22/20 07:29 Fluticasone Propionate 250 Mcg Blst.W.Dev INHALE 2 puff RBID MICHELLE Administration Guaifenesin/Dextromethorphan 1 tab 05/18/20 10:45 05/22/20 08:39 Guaifenesin Dm 600/30 1 Tab Tab.Er.12h PO 1 tab BID MICHELLE Administration Melatonin 6 mg 05/17/20 21:00 05/21/20 21:49 Melatonin 3 Mg Tablet PO 6 mg BEDTIME PRN Administration Insomnia Naproxen 500 mg 05/16/20 19:30 Naproxen 500 Mg Tablet PO BID PRN pain Pregabalin 75 mg 05/16/20 21:00 05/22/20 08:39 Pregabalin 75 Mg Capsule PO 75 mg BID MICHELLE Administration Ropinirole HCl 2 mg 05/16/20 21:00 05/22/20 08:39 Ropinirole Hcl 2 Mg Tablet PO 2 mg TID MICHELLE Administration Sodium Chloride 3 ml 05/16/20 19:12 05/22/20 08:36 0.9 % Sodium Chloride Flush 3 Ml Syringe IVFLUSH 3 ml QSHIFT MICHELLE Administration Labs CBC & Chem 7: 05/16/20 09:25 05/22/20 05:41 Microbiology Microbiology Results: Microbiology 05/16/20 10:24 Blood - Venous Blood Culture - Final No growth after 5 days. 05/16/20 10:24 Blood - Venous Blood Culture - Final No growth after 5 days. Assessment and Plan (1) Pneumonia due to COVID-19 virus: Status: Acute (2) JEFFRY on CPAP: Status: Acute (3) Morbid obesity: Status: Acute Assessment and Plan: 65-year-old male, morbidly obese with obstructive sleep apnea,chronic obstructive pulmonary disease, presenting with COVID-19 associated with acute hypoxic respiratory failure that has not responded to outpatient management. PLAN: 1. Acute respiratory failure, associated with COVID-19 pneumonia.--remains hypoxic and get short of breath with minimal effort -Wean O2 as samuel, goal O2 89 or greater -Dexamethasone D6/10 -Remdesevir D5/5--completed 05/21 -Has completed course of Azithro at home 2. COPD. He does not have any obvious exacerbation. -Inhalers by [facility]I -steroid as above 3. Morbid obesity. complicates his health issues, especially JEFFRY, aware he needs to loose weight, goal about loosing 50 4. Hyperlipidemia. Hold statin because of rise in LFTs. 5. Peripheral neuropathy/restless legs. Continue pregabalin and ropinirole. 6. BPH and bladder outlet obstruction. Continue terazosin. 7. For DVT prop 8. JEFFRY--CPAP at night I think most hyypoxia maybe secondary to JEFFRY and will likely need oxygen permanently Needs continuous close monitoring for hypoxia Pulmonary to follow up
--- NOTE | 2020-05-22 11:33 | MHC.CM.PN ---
Patient is requiring O2 at 4 liters via NC and on IV Dexamethasone. Patient will need home O2 eval and might discharge on O2. Discharge plan is home no services. will provide transportation. CM will continue to follow patient for discharge needs.
[2020-05-22] MEDS: Doxazosin Mesylate 2 MG TABLET 8 MG PO (20:03)
[2020-05-22] MEDS: Enoxaparin Sodium 40 MG/0.4 ML SYRINGE SUBCUT (20:04)
[2020-05-22] MEDS: Amitriptyline HCl 50 MG TABLET 100 MG PO (20:04)
[2020-05-23] VITALS (9 sets, daily range): BP systolic 115–148; BP diastolic 59–88; PULSE 91–117; RESP 18–20; TEMP 35.9–36.6; O2SAT 89–95; BMI 46.0
[2020-05-23] MEDS: Fluticasone Propionate 250 MCG BLST.W.DEV 2 PUFF INHALE ×2 (07:56→20:09)
--- NOTE | 2020-05-23 10:29 | P.EN_ITS ---
Event Note Date of Service: 05/23/20 Event Note: This 65 years old gentleman was seen by me this morning for Pulmon saul / Sleep consultation Lab, imaging and his hospital course is reviewed. Complete note dictated. A: ACUTE COVID-19 INFECTION, PATIENT RECOVERING. COVID PNEUMONIAE BILATERAL, IMPROVING. RESPIRATORY DISTRESS SYNDROME/ WITH HYPOXEMIA, IMPROVING. OBSTRUCTIVE SLEEP APNEA, BEING TREATED WITH CPAP, PATIENT HAS BEEN VERY COMPLIANT. P : COMPLETE THE COURSE OF DEXAMETHASONE, MAY CHANGE IV TO OVERALL. CONTINUE OXYGEN 4 L/MINUTE BY NASAL CANNULA, AND WEAN TOLERATED WITH GOAL OF O2 SAT ABOVE 90%. PATIENT WILL USE OXYGEN ALONG WITH CPAP AT NIGHT, FOR THE TIME BEING DEEP BREATHING EXERCISES WITH INCENTIVE SPIROMETER ARE ADVICE. PATIENT MAY BE DISCHARGED HOME WHEN CLINICALLY STABLE, AND SHOULD HAVE OXYGEN SUPPLY AT HOME. PATIENT WILL BE SEEN FOR PULMusa Cullen IN THE OFFICE .
[2020-05-23] MEDS: dexAMETHasone sod phosphate 4 MG/ML VIAL 6 MG IVPUSH (11:05)
[2020-05-23] MEDS: 0.9 % Sodium Chloride Flush 3 ML SYRINGE IVFLUSH ×3 (11:06→20:17)
[2020-05-23] MEDS: Pregabalin 75 MG CAPSULE PO ×2 (11:09→20:04)
[2020-05-23] MEDS: Aspirin Enteric Coated 81 MG TABLET.DR PO (11:09)
[2020-05-23] MEDS: Atorvastatin Calcium 80 MG TABLET PO (11:09)
[2020-05-23] MEDS: DULoxetine HCl 60 MG CAPSULE.DR PO (11:09)
[2020-05-23] MEDS: rOPINIRole HCL 2 MG TABLET PO ×3 (11:11→20:05)
[2020-05-23] MEDS: guaiFENesin DM 600/30 1 TAB TAB.ER.12H PO ×2 (11:11→20:04)
[2020-05-23] MEDS: Finasteride 5 MG TABLET PO (11:11)
--- NOTE | 2020-05-23 12:59 | MHC.CM.PN ---
DP Male 65 Covid+ this am the plan was DC to home with Oxygen if qualifies. The respiratory therapy evaluated the Pt this AM. The O2 eval is on hold due to the pts condition, SOB and adventitious breath sounds. CM will follow.
--- NOTE | 2020-05-23 15:04 | HO.PM.IMPN ---
Subjective Subjective Date of Service: 05/23/20 Interval History: f/u on covid, resp failure. He slept well, feels better today, remains hypoxi with O2 around 90 on 4 liter, but clinically looks better and feel better, get easily sob Review of Systems Gen: no fever Resp: + sob, + cough CV: no chest, no MATUTE, no leg edema GI: No n/v, no abd pain Neuro: No confusion Physical Exam Vital Signs: Vital Signs: Last Vital Signs Temp 97 F 05/23/20 12:00 Pulse 112 H 05/23/20 12:00 Resp 20 05/23/20 12:00 BP 116/81 05/23/20 12:00 Pulse Ox 93 05/23/20 12:00 Body Mass Index 46.0 Const: Other: Const: General: cooperative Orientation/consciousness: patient oriented x3 Resp: Other: No accessory muscle use Effort & Inspection: able to speak in complete sentences Cardio: Rate: regular rate Rhythm: regular rhythm GI: Palpation (GI): Soft to palpation and nontender Skin: General skin exam: no rashes or lesions noted Neuro: General: patient oriented x3 Objective Data Current Medications Generic Name Dose Route Start Last Admin Trade Name Freq PRN Reason Stop Dose Admin Acetaminophen 650 mg 05/16/20 19:12 Acetaminophen 325 Mg Tablet PO Q6H PRN Pain, Mild (Pain Scale 1-3) Albuterol Sulfate 1 puff 05/16/20 19:48 05/16/20 22:30 Albuterol Sulfate 90 Mcg 8 Gm Inhaler INHALE 1 puff QID PRN Administration Shortness Of Breath Amitriptyline HCl 100 mg 05/16/20 21:00 05/22/20 20:04 Amitriptyline Hcl 50 Mg Tablet PO 100 mg BEDTIME MICHELLE Administration Aspirin 81 mg 05/17/20 09:00 05/23/20 11:09 Aspirin Enteric Coated 81 Mg Tablet. PO 81 mg DAILY MICHELLE Administration Atorvastatin Calcium 80 mg 05/17/20 09:00 05/23/20 11:09 Atorvastatin Calcium 80 Mg Tablet PO 80 mg DAILY MICHELLE Administration Cyclobenzaprine HCl 10 mg 05/16/20 19:50 Cyclobenzaprine Hcl 10 Mg Tablet PO BEDTIME PRN Muscle Spasm Dexamethasone Sodium Phosphate 6 mg 05/17/20 09:00 05/23/20 11:05 Dexamethasone Sod Phosphate 4 Mg/Ml Vial IVPUSH 6 mg DAILY MICHELLE Administration Doxazosin Mesylate 8 mg 05/16/20 21:00 05/22/20 20:03 Doxazosin Mesylate 2 Mg Tablet PO 8 mg BEDTIME MICHELLE Administration Duloxetine HCl 60 mg 05/17/20 09:00 05/23/20 11:09 Duloxetine Hcl 60 Mg Capsule.Dr PO 60 mg DAILY MICHELLE Administration Enoxaparin Sodium 40 mg 05/16/20 20:00 05/22/20 20:04 Enoxaparin Sodium 40 Mg/0.4 Ml Syringe SUBCUT 40 mg Q24H MICHELLE Administration Finasteride 5 mg 05/17/20 09:00 05/23/20 11:11 Finasteride 5 Mg Tablet PO 5 mg DAILY MICHELLE Administration Fluticasone Propionate 2 puff 05/17/20 08:00 05/23/20 07:56 Fluticasone Propionate 250 Mcg Blst.W.Dev INHALE 2 puff RBID MICHELLE Administration Guaifenesin/Dextromethorphan 1 tab 05/18/20 10:45 05/23/20 11:11 Guaifenesin Dm 600/30 1 Tab Tab.Er.12h PO 1 tab BID MICHELLE Administration Melatonin 6 mg 05/17/20 21:00 05/21/20 21:49 Melatonin 3 Mg Tablet PO 6 mg BEDTIME PRN Administration Insomnia Naproxen 500 mg 05/16/20 19:30 Naproxen 500 Mg Tablet PO BID PRN pain Pregabalin 75 mg 05/16/20 21:00 05/23/20 11:09 Pregabalin 75 Mg Capsule PO 75 mg BID MICHELLE Administration Ropinirole HCl 2 mg 05/16/20 21:00 05/23/20 11:11 Ropinirole Hcl 2 Mg Tablet PO 2 mg TID MICHELLE Administration Sodium Chloride 3 ml 05/16/20 19:12 05/23/20 11:06 0.9 % Sodium Chloride Flush 3 Ml Syringe IVFLUSH 3 ml QSHIFT MICHELLE Administration Labs CBC & Chem 7: 05/16/20 09:25 05/22/20 05:41 Microbiology Microbiology Results: Microbiology 05/16/20 10:24 Blood - Venous Blood Culture - Final No growth after 5 days. 05/16/20 10:24 Blood - Venous Blood Culture - Final No growth after 5 days. Assessment and Plan (1) Pneumonia due to COVID-19 virus: Status: Acute (2) JEFFRY on CPAP: Status: Acute (3) Morbid obesity: Status: Acute Assessment and Plan: 65-year-old male, morbidly obese with obstructive sleep apnea,chronic obstructive pulmonary disease, presenting with COVID-19 associated with acute hypoxic respiratory failure that has not responded to outpatient management. PLAN: 1. Acute respiratory failure, associated with COVID-19 pneumonia.--remains hypoxic and get short of breath with minimal effort -Wean O2 as samuel, goal O2 89 or greater -Dexamethasone D7/10 -Remdesevir D5/5--completed 05/21 -Has completed course of Azithro at home -He qualifies for home O2 and is planning to send him with home O2 2. COPD. He does not have any obvious exacerbation. -Inhalers by MDI -steroid as above 3. Morbid obesity. complicates his health issues, especially JEFFRY, aware he needs to loose weight, goal about loosing 50 4. Hyperlipidemia. Hold statin because of rise in LFTs. 5. Peripheral neuropathy/restless legs. Continue pregabalin and ropinirole. 6. BPH and bladder outlet obstruction. Continue terazosin. 7. For DVT prop 8. JEFFRY--CPAP at night I think most hyypoxia maybe secondary to JEFFRY and will likely need oxygen permanently Needs continuous close monitoring for hypoxia Home
[2020-05-23] MEDS: Amitriptyline HCl 50 MG TABLET 100 MG PO (20:04)
[2020-05-23] MEDS: Doxazosin Mesylate 2 MG TABLET 8 MG PO (20:04)
[2020-05-23] MEDS: Enoxaparin Sodium 40 MG/0.4 ML SYRINGE SUBCUT (20:16)
[2020-05-24] VITALS (8 sets, daily range): BP systolic 124–157; BP diastolic 60–90; PULSE 100–115; RESP 18–20; TEMP 35.8–36.9; O2SAT 91–97; BMI 45.4
[2020-05-24] MEDS: Fluticasone Propionate 250 MCG BLST.W.DEV 2 PUFF INHALE ×2 (08:41→19:42)
[2020-05-24] MEDS: rOPINIRole HCL 2 MG TABLET PO ×3 (10:06→20:48)
[2020-05-24] MEDS: Aspirin Enteric Coated 81 MG TABLET.DR PO (10:06)
[2020-05-24] MEDS: Atorvastatin Calcium 80 MG TABLET PO (10:06)
[2020-05-24] MEDS: Pregabalin 75 MG CAPSULE PO ×2 (10:06→20:48)
[2020-05-24] MEDS: Finasteride 5 MG TABLET PO (10:06)
[2020-05-24] MEDS: dexAMETHasone sod phosphate 4 MG/ML VIAL 6 MG IVPUSH (10:06)
[2020-05-24] MEDS: DULoxetine HCl 60 MG CAPSULE.DR PO (10:06)
[2020-05-24] MEDS: guaiFENesin DM 600/30 1 TAB TAB.ER.12H PO ×2 (10:06→21:05)
[2020-05-24] MEDS: 0.9 % Sodium Chloride Flush 3 ML SYRINGE IVFLUSH ×3 (10:07→20:47)
--- NOTE | 2020-05-24 10:08 | CONS_ITS ---
DATE OF SERVICE: 05/23/2020 HISTORY OF PRESENT ILLNESS: This is a 65-year-old gentleman with history of morbid obesity, COPD, and obstructive sleep apnea plus restless legs syndrome, who uses CPAP regularly at night was admitted on 05/16 with symptoms of COVID-19 for about 7 days prior to that. The patient had been initially seen in the emergency room on May 13, with the diagnosis of COVID-19 infection. He was sent home on a course of prednisone and Zithromax, but he returned on 05/16 with increasing symptoms, especially increasing shortness of breath. Chest x-ray has shown bilateral infiltrates. The patient was treated with a course of remdesivir and now he is completing the course of dexamethasone. He continues to require oxygen by nasal cannula. PAST MEDICAL HISTORY: Includes: 1. Morbid obesity. 2. Chronic obstructive pulmonary disease. 3. Obstructive sleep apnea. The patient is very compliant to use of CPAP. 4. Peripheral neuropathy. 5. He has had bladder outlet obstruction. 6. 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 SOCIAL HISTORY: The patient lives with his , who also is recovering from COVID-19 infection. He is nonsmoker and also nondrinker. He does use marijuana on occasions. REVIEW OF SYSTEMS: Currently, the patient does not have any fever or chills. He is sitting up and looks fairly comfortable. The patient has had mild intermittent cough. No wheezing. No chest pain. He denies any cardiac arrhythmias. He has no nausea or vomiting. No urinary symptoms at this time. PHYSICAL EXAMINATION: GENERAL: A 65-year-old gentleman, who is obviously a very obese person with a round face. He is sitting up in recliner, talking well. VITAL SIGNS: Very stable. Heart rate in the 80s, respiratory rate is 14, and temperature is normal. EAR, NOSE, AND THROAT: Examination reveals his oropharynx to be crowded, Mallampati class 4. No acute infection. NECK: No JVD. Trachea midline. No lymphadenopathy. CHEST: Chest wall is obese. Percussion note is not perceptible. Breath sounds are somewhat distant and he has only a few scattered crepitations over the basilar areas. No wheezes. CARDIAC: PMI is not palpable. Heart sounds are distant. Rhythm regular. ABDOMEN: Moderately obese, soft and nontender. EXTREMITIES: No pitting edema. Peripheral pulses are not palpable. LABORATORY DATA: His CTA of the chest on 05/16 has shown bilateral infiltrates and ground-glass opacities. There was no evidence of pulmonary embolism. There is diffuse mediastinal and hilar lymphadenopathy. His serology was positive for COVID-19 on 05/16/2020. Hematology, white cell count is 5.8 and hemoglobin 13.8. CLINICAL IMPRESSION: 1. Acute COVID-19 infection. 2. COVID-19 related bilateral pneumonia, improving. 3. Respiratory distress with hypoxemia, improving. 4. The patient's known case of obstructive sleep apnea and he is very compliant to use CPAP. RECOMMENDATIONS: I would recommend to complete the course of dexamethasone. Oxygen supplementation and try to wean down the O2 to as long as we keep the O2 saturation above 90%. Incentive spirometry for deep breathing exercises. The patient continue to use CPAP at night, and along with that, he would also need oxygen. The patient will be ready to be discharged to home with oxygen as well as his CPAP. The patient would need to be followed up as an outpatient and a few weeks from now, we will repeat a CT scan of his chest for his progress. Thank you very much for asking me to see this patient. MD ELSI Nino/SALIMA / [phone]
--- NOTE | 2020-05-24 13:50 | MHC.CM.PN ---
Patient continues to need O2 at 4 liters via NC and CPAP at night. patient is also on IV Dexamethasone day 09/26. Discharge plan is home no services. Family will provide transport. CM will continue to follow patient for discharge needs.
--- NOTE | 2020-05-24 13:59 | P.PNIM_ITS ---
Subjective Subjective Date of Service: 05/24/20 Interval History: f/u on covid, resp failure. Still sob with minimal effort Review of Systems Gen: no fever Resp: + sob, + cough CV: no chest, no MATUTE, no leg edema GI: No n/v, no abd pain Neuro: No confusion Physical Exam Vital Signs: Vital Signs: Last Vital Signs Temp 97 F 05/24/20 11:27 Pulse 103 H 05/24/20 11:27 Resp 19 05/24/20 11:27 BP 133/90 H 05/24/20 11:27 Pulse Ox 94 05/24/20 07:59 Body Mass Index 45.4 Const: Other: Const: General: cooperative Orientation/consciousness: patient oriented x3 Resp: Other: No accessory muscle use Effort & Inspection: able to speak in complete sentences Cardio: Rate: regular rate Rhythm: regular rhythm GI: Palpation (GI): Soft to palpation and nontender Skin: General skin exam: no rashes or lesions noted Neuro: General: patient oriented x3 Objective Data Current Medications Generic Name Dose Route Start Last Admin Trade Name Inocencioq PRN Reason Stop Dose Admin Acetaminophen 650 mg 05/16/20 19:12 Acetaminophen 325 Mg Tablet PO Q6H PRN Pain, Mild (Pain Scale 1-3) Albuterol Sulfate 1 puff 05/16/20 19:48 05/16/20 22:30 Albuterol Sulfate 90 Mcg 8 Gm Inhaler INHALE 1 puff QID PRN Administration Shortness Of Breath Amitriptyline HCl 100 mg 05/16/20 21:00 05/23/20 20:04 Amitriptyline Hcl 50 Mg Tablet PO 100 mg BEDTIME MICHELLE Administration Aspirin 81 mg 05/17/20 09:00 05/24/20 10:06 Aspirin Enteric Coated 81 Mg Tablet. PO 81 mg DAILY MICHELLE Administration Atorvastatin Calcium 80 mg 05/17/20 09:00 05/24/20 10:06 Atorvastatin Calcium 80 Mg Tablet PO 80 mg DAILY MICHELLE Administration Cyclobenzaprine HCl 10 mg 05/16/20 19:50 Cyclobenzaprine Hcl 10 Mg Tablet PO BEDTIME PRN Muscle Spasm Dexamethasone Sodium Phosphate 6 mg 05/17/20 09:00 05/24/20 10:06 Dexamethasone Sod Phosphate 4 Mg/Ml Vial IVPUSH 6 mg DAILY MICHELLE Administration Doxazosin Mesylate 8 mg 05/16/20 21:00 05/23/20 20:04 Doxazosin Mesylate 2 Mg Tablet PO 8 mg BEDTIME MICHELLE Administration Duloxetine HCl 60 mg 05/17/20 09:00 05/24/20 10:06 Duloxetine Hcl 60 Mg Capsule.Dr PO 60 mg DAILY MICHELLE Administration Enoxaparin Sodium 40 mg 05/16/20 20:00 05/23/20 20:16 Enoxaparin Sodium 40 Mg/0.4 Ml Syringe SUBCUT 40 mg Q24H MICHELLE Administration Finasteride 5 mg 05/17/20 09:00 05/24/20 10:06 Finasteride 5 Mg Tablet PO 5 mg DAILY MICHELLE Administration Fluticasone Propionate 2 puff 05/17/20 08:00 05/24/20 08:41 Fluticasone Propionate 250 Mcg Blst.W.Dev INHALE 2 puff RBID MICHELLE Administration Guaifenesin/Dextromethorphan 1 tab 05/18/20 10:45 05/24/20 10:06 Guaifenesin Dm 600/30 1 Tab Tab.Er.12h PO 1 tab BID MICHELLE Administration Melatonin 6 mg 05/17/20 21:00 05/21/20 21:49 Melatonin 3 Mg Tablet PO 6 mg BEDTIME PRN Administration Insomnia Naproxen 500 mg 05/16/20 19:30 Naproxen 500 Mg Tablet PO BID PRN pain Pregabalin 75 mg 05/16/20 21:00 05/24/20 10:06 Pregabalin 75 Mg Capsule PO 75 mg BID MICHELLE Administration Ropinirole HCl 2 mg 05/16/20 21:00 05/24/20 10:06 Ropinirole Hcl 2 Mg Tablet PO 2 mg TID MICHELLE Administration Sodium Chloride 3 ml 05/16/20 19:12 05/24/20 10:07 0.9 % Sodium Chloride Flush 3 Ml Syringe IVFLUSH 3 ml QSHIFT MICHELLE Administration Labs CBC & Chem 7: 05/16/20 09:25 05/22/20 05:41 Microbiology Microbiology Results: Microbiology 05/16/20 10:24 Blood - Venous Blood Culture - Final No growth after 5 days. 05/16/20 10:24 Blood - Venous Blood Culture - Final No growth after 5 days. Assessment and Plan (1) Pneumonia due to COVID-19 virus: Status: Acute (2) JEFFRY on CPAP: Status: Acute (3) Morbid obesity: Status: Acute Assessment and Plan: 65-year-old male, morbidly obese with obstructive sleep apnea,chronic obstructive pulmonary disease, presenting with COVID-19 associated with acute hypoxic respiratory failure that has not responded to outpatient managemen t. PLAN: 1. Acute respiratory failure, associated with COVID-19 pneumonia.--remains hypoxic and get short of breath with minimal effort -Wean O2 as samuel, goal O2 89 or greater -Dexamethasone D8/10 -Remdesevir D5/5--completed 05/21 -Has completed course of Azithro at home -He qualifies for home O2 and is planning to send him with home O2 2. COPD. He does not have any obvious exacerbation. -Inhalers by MDI -steroid as above 3. Morbid obesity. complicates his health issues, especially JEFFRY, aware he needs to loose weight, goal about loosing 50 4. Hyperlipidemia. Hold statin because of rise in LFTs. 5. Peripheral neuropathy/restless legs. Continue pregabalin and ropinirole. 6. BPH and bladder outlet obstruction. Continue terazosin. 7. For DVT prop 8. JEFFRY--CPAP at night Nose bleed likly from dryness from oxygen I think most hyypoxia maybe secondary to JEFFRY and will likely need oxygen permanently Needs continuous close monitoring for hypoxia Anticipate dc in 1 to 2 days Home
[2020-05-24] MEDS: Amitriptyline HCl 50 MG TABLET 100 MG PO (20:48)
[2020-05-24] MEDS: Enoxaparin Sodium 40 MG/0.4 ML SYRINGE SUBCUT (20:51)
[2020-05-24] MEDS: Doxazosin Mesylate 2 MG TABLET 8 MG PO (20:51)
[2020-05-25] VITALS (8 sets, daily range): BP systolic 107–139; BP diastolic 63–97; PULSE 98–113; RESP 16–20; TEMP 36.3–37.1; O2SAT 91–96; BMI 45.6
[2020-05-25] MEDS: Fluticasone Propionate 250 MCG BLST.W.DEV 2 PUFF INHALE ×2 (07:01→19:20)
[2020-05-25] MEDS: dexAMETHasone sod phosphate 4 MG/ML VIAL 6 MG IVPUSH (08:50)
[2020-05-25] MEDS: DULoxetine HCl 60 MG CAPSULE.DR PO (08:51)
[2020-05-25] MEDS: rOPINIRole HCL 2 MG TABLET PO ×3 (08:51→21:48)
[2020-05-25] MEDS: guaiFENesin DM 600/30 1 TAB TAB.ER.12H PO ×2 (08:51→21:47)
[2020-05-25] MEDS: Aspirin Enteric Coated 81 MG TABLET.DR PO (08:51)
[2020-05-25] MEDS: Pregabalin 75 MG CAPSULE PO ×2 (08:51→21:48)
[2020-05-25] MEDS: Atorvastatin Calcium 80 MG TABLET PO (08:51)
[2020-05-25] MEDS: Finasteride 5 MG TABLET PO (08:51)
[2020-05-25] MEDS: 0.9 % Sodium Chloride Flush 3 ML SYRINGE IVFLUSH ×2 (08:51→15:16)
--- NOTE | 2020-05-25 10:09 | PM.PNPUL ---
Subjective Subjective Date of Service: 05/25/20 Principal diagnosis: COVID_19 Pneumonia / Hypoxemia /JEFFRY Interval history: This 65 years old gentleman with morbid obesity, known case of obstructive sleep apnea, on CPAP therapy at home. Has been treated for acute COVID 19 pneumonia, bilateral. Has had complete course of remdesivir and dexamethasone. Feels better but continues to need oxygen 3-4 L / minute. Today feels somewhat stronger than before. Objective Data Labs CBC & Chem 7: 05/16/20 09:25 05/22/20 05:41 Microbiology Microbiology Results: Microbiology 05/16/20 10:24 Blood - Venous Blood Culture - Final No growth after 5 days. 05/16/20 10:24 Blood - Venous Blood Culture - Final No growth after 5 days. Review of Systems Review of Systems Yes all other systems are reviewed and are negative Denies nasal congestion, Denies nasal discharge and Denies sore throat Cardiovascular: Reports dyspnea on exertion Respiratory: Reports cough (minimal), Reports dyspnea on exertion and Denies wheezing Gastrointestinal: Denies heartburn, Denies diarrhea and Denies nausea Musculoskeletal: Reports abnormal gait (sec to peripheral Neuropathy ) Reports Abnormal speech present and Reports abnormal gait (sec to peripheral Neuropathy ) Allergic/Immunologic: Denies wheezing Physical Exam Vital Signs: Vital Signs: Last Vital Signs Temp 98.8 F 05/25/20 08:00 Pulse 107 H 05/25/20 08:00 Resp 20 05/25/20 08:00 BP 107/68 05/25/20 08:00 Pulse Ox 91 L 05/25/20 08:00 Body Mass Index 45.6 Const: Other: Grossly overweight as usual. General: comfortable, no acute distress, alert and awake Orientation/consciousness: patient oriented x3 HENMT: Head: Yes normal to inspection General nose exam: No nasal polyps present and No nasal discharge present Face and sinus: Yes sinuses nontender Mouth: oropharynx abnormals (Crowded, Mallampati class 4.) Throat: Yes posterior oropharynx normal Eyes: General: appearance normal, both eyes and all related structures Neck: Neck: Yes normal visual inspection, Yes no lymphadenopathy, Yes trachea midline and Yes no JVD Thyroid: Thyroid normal Chest: Chest palpation & inspection: normal inspection of the chest and normal palpation of entire chest wall Resp: Other: BREATH SOUNDS ARE DISTANT ON BOTH SIDES, PERCUSSION NOTE NOT MUCH PERCEPTIBLE DUE TO THICK CHEST WALL. NO CREPITATIONS OR WHEEZES ARE HEARD. Cardio: Palpation: normal PMI Rate: regular rate Rhythm: regular rhythm Heart sounds: no gallops and no murmurs GI: Palpation (GI): Soft to palpation, nontender, No hepatosplenomegaly present and no masses Auscultation: normal bowel sounds Back/Spine/Pelvis: Thoracic/Lumbar Spine: thoracic and lumbar spine normal to inspection Skin: General skin exam: no rashes or lesions noted Neuro: General: patient oriented x3, No gait normal (IMPAIRED GAIT ) and no focal motor deficits Cranial nerves: Yes CN's II-XII intact bilaterally Speech: Abnormal speech present Extrem: General: Yes normal to inspection, Yes no calf tenderness, Yes edema (BULKY , WITH ONLY MINIMAL EDEMA ) and No venous stasis dermatitis Psych: Speech and movement: Normal speech and movement present Assessment and Plan Assessment and plan (1) Pneumonia due to COVID-19 virus: Problem details: PNEUMONIA SEEMS TO HAVE RESOLVED BUT STILL HAS RESIDUAL INFILTRATES WHICH MAY TAKE SEVERAL WEEKS TO RESOLVE COMPLETELY Status: Acute (2) Restrictive lung disease: Problem details: Restriction is mostly sec to Abdominal Obesity . Weight Loss recommended Do deep Breathing exercises daily Status: Acute (3) COPD (chronic obstructive pulmonary disease): Problem details: COPD . seems to be well controlled , will continue his regular meds including Flovent -250 1 inhalation b.i.d. and albuterol p.r.n. Status: Acute (4) JEFFRY on CPAP: Problem details: Patient has chronic obstructive sleep apnea he is the on CPAP therapy, very compliant and benefitting. Will continue to use it as before. Status: Acute (5) Morbid obesity: Problem details: This is a chronic problem he is not in a position to lose much weight at this time Status: Acute Assessment and Plan: Patient to is fairly stable may be discharged home but he will need oxygen at home 3-4 L/mt and use CPAP at nighttime. Patient will be seen in the Pulmonary office for follow-up, Time Spent With Patient Time: Total time spent is greater than 50% in coordination of care (as documented) at patient's floor/unit and/or counseling patient: Time with patient: 15 - 24 minutes
--- NOTE | 2020-05-25 15:18 | MHC.CM.PN ---
CM met with patient to discuss discharge plan re: home care for nursing r/t new on O2. Patient's choice is [facility], referral made via [employer].
--- NOTE | 2020-05-25 15:45 | P.PNIM_ITS ---
Subjective Subjective Date of Service: 05/26/20 Interval History: Patient complaining of shortness of breath with exertion, also feels lightheaded with ambulation and also takes few minutes to catch his breath after activityfeels not ready for dc home today. ROS General no headache, no dizziness, no fever chills. CVS no chest pain, no palpitation. Respiratory no cough, no sob. Gastrointestinal no nausea ,no vomiting, no abdominal pain Physical Exam Vital Signs: Vital Signs: Last Vital Signs Temp 98.7 F 05/25/20 15:07 Pulse 98 05/25/20 15:07 Resp 20 05/25/20 15:07 BP 134/67 05/25/20 15:07 Pulse Ox 95 05/25/20 15:07 Body Mass Index 45.6 General patient resting comfortably in no acute distress. Neck no JVD. CVS regular rate rhythm, Respiratory lungs clear to auscultation, no respiratory distress, no wheeze, no rhonchi. Gastrointestinal abdomen soft, nontender, bowel sounds audible, no guarding , no rigidity. Extremities no edema. Neuro nonfocal , speech clear. Skin no rash Objective Data Current Medications Generic Name Dose Route Start Last Admin Trade Name Freq PRN Reason Stop Dose Admin Acetaminophen 650 mg 05/16/20 19:12 Acetaminophen 325 Mg Tablet PO Q6H PRN Pain, Mild (Pain Scale 1-3) Albuterol Sulfate 1 puff 05/16/20 19:48 05/16/20 22:30 Albuterol Sulfate 90 Mcg 8 Gm Inhaler INHALE 1 puff QID PRN Administration Shortness Of Breath Amitriptyline HCl 100 mg 05/16/20 21:00 05/24/20 20:48 Amitriptyline Hcl 50 Mg Tablet PO 100 mg BEDTIME MICHELLE Administration Aspirin 81 mg 05/17/20 09:00 05/25/20 08:51 Aspirin Enteric Coated 81 Mg Tablet. PO 81 mg DAILY MICHELLE Administration Atorvastatin Calcium 80 mg 05/17/20 09:00 05/25/20 08:51 Atorvastatin Calcium 80 Mg Tablet PO 80 mg DAILY MICHELLE Administration Cyclobenzaprine HCl 10 mg 05/16/20 19:50 Cyclobenzaprine Hcl 10 Mg Tablet PO BEDTIME PRN Muscle Spasm Dexamethasone Sodium Phosphate 6 mg 05/17/20 09:00 05/25/20 08:50 Dexamethasone Sod Phosphate 4 Mg/Ml Vial IVPUSH 6 mg DAILY MICHELLE Administration Doxazosin Mesylate 8 mg 05/16/20 21:00 05/24/20 20:51 Doxazosin Mesylate 2 Mg Tablet PO 8 mg BEDTIME MICHELLE Administration Duloxetine HCl 60 mg 05/17/20 09:00 05/25/20 08:51 Duloxetine Hcl 60 Mg Capsule.Dr PO 60 mg DAILY MICHELLE Administration Enoxaparin Sodium 40 mg 05/16/20 20:00 05/24/20 20:51 Enoxaparin Sodium 40 Mg/0.4 Ml Syringe SUBCUT 40 mg Q24H MICHELLE Administration Finasteride 5 mg 05/17/20 09:00 05/25/20 08:51 Finasteride 5 Mg Tablet PO 5 mg DAILY MICHELLE Administration Fluticasone Propionate 2 puff 05/17/20 08:00 05/25/20 07:01 Fluticasone Propionate 250 Mcg Blst.W.Dev INHALE 2 puff RBID MICHELLE Administration Guaifenesin/Dextromethorphan 1 tab 05/18/20 10:45 05/25/20 08:51 Guaifenesin Dm 600/30 1 Tab Tab.Er.12h PO 1 tab BID MICHELLE Administration Melatonin 6 mg 05/17/20 21:00 05/21/20 21:49 Melatonin 3 Mg Tablet PO 6 mg BEDTIME PRN Administration Insomnia Naproxen 500 mg 05/16/20 19:30 Naproxen 500 Mg Tablet PO BID PRN pain Pregabalin 75 mg 05/16/20 21:00 05/25/20 08:51 Pregabalin 75 Mg Capsule PO 75 mg BID MICHELLE Administration Ropinirole HCl 2 mg 05/16/20 21:00 05/25/20 15:16 Ropinirole Hcl 2 Mg Tablet PO 2 mg TID MICHELLE Administration Sodium Chloride 3 ml 05/16/20 19:12 05/25/20 15:16 0.9 % Sodium Chloride Flush 3 Ml Syringe IVFLUSH 3 ml QSHIFT MICHELLE Administration Labs CBC & Chem 7: 05/16/20 09:25 05/22/20 05:41 Microbiology Microbiology Results: Microbiology 05/16/20 10:24 Blood - Venous Blood Culture - Final No growth after 5 days. 05/16/20 10:24 Blood - Venous Blood Culture - Final No growth after 5 days. Assessment and Plan (1) Acute respiratory failure with hypoxia: Status: Acute (2) Pneumonia due to COVID-19 virus: Status: Acute (3) Restrictive lung disease: Status: Acute (4) JEFFRY on CPAP: Status: Acute (5) Morbid obesity: Status: Acute (6) MATUTE (dyspnea on exertion): Status: Acute Assessment and Plan: 65-year-old male, morbidly obese with obstructive sleep apnea,chronic obstructive pulmonary disease, presenting with COVID-19 associated with acute hypoxic respiratory failure that has not responded to outpatient manage ment. 1. Acute respiratory failure, associated with COVID-19 pneumonia.--remains hypoxic and get short of breath with minimal effort, and feels weak will continue O2 support and gradually wean oxygen with goal of finger oximetry around 90%, continue iv Dexamethasone D9 /10, patient completed course of remdesivir and azithromycin continue supportive care Patient not on home oxygen therefore will obtain home O2 eval prior to discharge likely next 24 hours 2. COPD. No acute exacerbation noted will continue home inhalers and IV steroids as above 3. Morbid obesity. complicates his health issues, especially JEFFRY, aware he needs to loose weight, discussed benefits of weight loss with him 4. Hyperlipidemia. Will resume statin since LFTs are trending down 5. Peripheral neuropathy/restless legs. Continue pregabalin and ropinirole. 6. BPH and bladder outlet obstruction. Continue terazosin. 7. For DVT prop on Lovenox 8. JEFFRY--continue CPAP at night.
--- NOTE | 2020-05-25 18:25 | PC.NURSE ---
Home O2 eval scheduled for tomorrow per patient request. Patient able to independently transfer from recliner to bed. Able to amb to bathroom with minimal exertion. On 4 L via NC, saturating around 90%, around 87% with exertion. Patient reports using incentive spirometer 4 to 5 times/hour; able to reach 2000 and hold for 3 seconds. Patient very motivated to improve health status.
[2020-05-25] MEDS: Enoxaparin Sodium 40 MG/0.4 ML SYRINGE SUBCUT (21:47)
[2020-05-25] MEDS: Amitriptyline HCl 50 MG TABLET 100 MG PO (21:47)
[2020-05-25] MEDS: Doxazosin Mesylate 2 MG TABLET 8 MG PO (21:48)
[2020-05-26] MEDS: 0.9 % Sodium Chloride Flush 3 ML SYRINGE IVFLUSH ×2 (00:08→09:40)
[2020-05-26 03:01] VITALS: BP 134/86; PULSE 103; RESP 18; TEMP 36.1; O2SAT 97
[2020-05-26 06:00] VITALS: BMI 44.5
[2020-05-26 07:58] VITALS: BP 135/74; PULSE 108; RESP 20; TEMP 36.4; O2SAT 93
[2020-05-26] MEDS: Fluticasone Propionate 250 MCG BLST.W.DEV 2 PUFF INHALE (08:04)
[2020-05-26 08:07] VITALS: PULSE 108; O2SAT 93
[2020-05-26] MEDS: rOPINIRole HCL 2 MG TABLET PO ×2 (09:39→14:35)
[2020-05-26] MEDS: Atorvastatin Calcium 80 MG TABLET PO (09:39)
[2020-05-26] MEDS: dexAMETHasone sod phosphate 4 MG/ML VIAL 6 MG IVPUSH (09:39)
[2020-05-26] MEDS: Finasteride 5 MG TABLET PO (09:39)
[2020-05-26] MEDS: DULoxetine HCl 60 MG CAPSULE.DR PO (09:39)
[2020-05-26] MEDS: Pregabalin 75 MG CAPSULE PO (09:39)
[2020-05-26] MEDS: guaiFENesin DM 600/30 1 TAB TAB.ER.12H PO (09:39)
[2020-05-26] MEDS: Aspirin Enteric Coated 81 MG TABLET.DR PO (09:39)
[2020-05-26 12:00] VITALS: BP 135/82; PULSE 112; RESP 20; TEMP 36.1; O2SAT 89
--- NOTE | 2020-05-26 13:05 | P.DS_ITS ---
DS: Providers Provider Date of Service: 05/26/20 Date of admission: 05/16/20 14:10 Primary care physician: BRENDEN Mathis Consults: 05/16/20 14:13 Consult to Infectious Diseases Routine Consulting Provider: Tuyet Morales Reason for consultation: covid 19. ? need for remdesevir 05/22/20 16:23 Consult to Pulmonology Routine Consulting Provider: Savanna Andujar Reason for consultation: chronic rsp failure DS: Diagnosis Discharge Diagnosis (1) Acute respiratory failure with hypoxia: Status: Acute (2) Pneumonia due to COVID-19 virus: Status: Acute (3) Restrictive lung disease: Status: Acute (4) JEFFRY on CPAP: Status: Acute (5) Morbid obesity: Status: Acute (6) MATUTE (dyspnea on exertion): Status: Acute DS: Medications Discharge Medications Home Medications: Home Medications Medication Instructions Recorded Confirmed albuterol sulfate 90 mcg/actuation 1 inh INHALATION QID PRN 11/17/19 05/16/20 aerosol inhaler amitriptyline 100 mg tablet 100 mg PO BEDTIME 11/17/19 05/16/20 duloxetine 60 mg capsule,delayed 60 mg PO DAILY 11/17/19 05/16/20 release fluticasone propionate 110 4 puff INHALATION BID 11/17/19 05/16/20 mcg/actuation HFA aerosol inhaler pregabalin 75 mg capsule 75 mg PO BID cap 11/17/19 05/16/20 methocarbamol 500 mg tablet 500 mg PO BEDTIME PRN tab 02/09/20 05/16/20 umeclidinium 62.5 mcg-vilanterol 1 inh INHALATION DAILY 03/13/20 05/16/20 25 mcg/actuation powdr for inhalation ropinirole 2 mg PO TID 05/16/20 05/16/20 terazosin 10 mg PO BEDTIME 05/16/20 05/16/20 Previous Rx's Medication Instructions Recorded finasteride 5 mg tablet 5 mg PO DAILY 90 Days #90 tab 12/30/19 atorvastatin 80 mg tablet 80 mg PO DAILY 90 Days #90 tab 03/20/20 naproxen 500 mg tablet 500 mg PO BID PRN 90 Days #180 tab 03/20/20 aspirin 81 mg tablet,delayed 81 mg PO DAILY 90 Days #90 tab 04/04/20 release azithromycin 250 mg PO DAILY 4 Days #4 tab 05/13/20 cefpodoxime 200 mg PO BID 7 Days #14 tab 05/13/20 prednisone 40 mg PO DAILY 5 Days #10 tab 05/13/20 DS: Summary Hospital Course Hospital Course: History of presenting illness 65-year-old male with morbid obesity, COPD, peripheral neuropathy, depression, restless legs syndrome, obstructive sleep apnea, and history of diverticulitis, who presented to the emergency room because of progressive shortness of breath that has been ongoing since last week. The patient started not feeling well with his respiratory symptoms including shortness of breath and cough. He was seen at an Urgent Care in [place] and was tested for COVID-19 and was positive and discharged with prednisone and antibiotics and discharged home. He continued not to be feeling well and ended up at [facility] on May 13 and was monitored. His respiratory status was stable at that time, and therefore, was discharged home. However, over the last several days, he has continued to become increasingly more short of breath, not feeling well, and in particular, this morning, he woke up and just could not breathe at all and that prompted him to come to the emergency room to be evaluated. He was noted to be tachypneic on arrival with a respiratory rate in the 30s. Oxygen saturation was borderline at about 91% on room air and it improved about 94% on 2 L. He was also noted to be tachycardic. Obviously, COVID-19 is positive yet again. His inflammatory markers including CRP is elevated, lactic acid is elevated at 2, likely not related to sepsis. His LFTs are slightly high at AST of 52 and ALT of 43. He is afebrile. He has been given dexamethasone in the emergency room and is being admitted for further management. Hospital course 65-year-old male, morbidly obese with obstructive sleep apnea,chronic obstructive pulmonary disease, presenting with COVID-19 associated with acute hypoxic respiratory failure that has not responded to outpatient management. 1. Acute respiratory failure, associated with COVID-19 pneumonia. Patient shortness of breath and weakness significantly improved, he finished a course of IV dexamethasone , azithromycin and Remdesiver,his oxygen requirement has also declined patient requires 1 L of oxygen at rest and with activity upon discharge, he has been recommended to rest, gradually advance activity And to wear mask in public. 2. COPD. No acute exacerbation noted continue home inhalers 3. Morbid obesity. complicating health issues, especially JEFFRY, discussed benefits of weight loss with him. 4. Hyperlipidemia. continue statin ,LFTs trending down. 5. Peripheral neuropathy/restless legs. Continue pregabalin and ropinirole. 6. BPH and bladder outlet obstruction. Continue terazosin. Time Spent with Patient Time attestation: Total time spent providing and/or coordinating discharge services: Discharge coordination time: Greater than 30 minutes Physical Exam Vital Signs: Vital Signs: Last Vital Signs Temp 97.6 F 05/26/20 07:58 Pulse 108 H 05/26/20 07:58 Resp 20 05/26/20 07:58 BP 135/74 05/26/20 07:58 Pulse Ox 93 05/26/20 07:58 Body Mass Index 44.5 General no acute distress, talking in full sentences. Neck no JVD. CVS regular rate rhythm, Respiratory lungs clear to auscultation, no respiratory distress, no wheeze, no rhonchi. Gastrointestinal abdomen soft, nontender, bowel sounds audible, no guarding , no rigidity. Extremities no edema. Neuro nonfocal , speech clear. Skin no rash Discharge Plan Discharge Patient Disposition: Home Health Service Referrals: [facility] 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- [Primary Care Provider] - Discharge Medications: New Mucinex DM 30-600 mg Tablet Extended Release 12 Hr 1 tab PO BID Qty: 10 RF: 0 Continued finasteride 5 mg tablet 5 mg PO DAILY 90 Days Qty: 90 RF: 2 naproxen 500 mg tablet 500 mg PO BID PRN (Reason: pain) 90 Days Qty: 180 RF: 0 atorvastatin 80 mg tablet 80 mg PO DAILY 90 Days Qty: 90 RF: 0 aspirin [Adult Low Dose Aspirin] 81 mg tablet,delayed release (DR/EC) 81 mg PO DAILY 90 Days Qty: 90 RF: 0 ropinirole 2 mg tablet 2 mg PO TID RF: 0 terazosin 10 mg Capsule 10 mg PO BEDTIME RF: 0 Anoro Ellipta 62.5-25 mcg/actuation blister with device 1 inh inhalation DAILY RF: 0 albuterol sulfate [ProAir HFA] 90 mcg/actuation HFA aerosol inhaler 1 inh inhalation QID PRN (Reason: Shortness Of Breath) RF: 0 Flovent HFA 110 mcg/actuation HFA aerosol inhaler 4 puff inhalation BID RF: 0 amitriptyline 100 mg tablet 100 mg PO BEDTIME RF: 0 duloxetine 60 mg capsule,delayed release(DR/EC) 60 mg PO DAILY RF: 0 pregabalin 75 mg capsule 75 mg PO BID RF: 0 methocarbamol 500 mg tablet 500 mg PO BEDTIME PRN (Reason: Sleep) RF: 0 Discontinued azithromycin 250 mg tablet 250 mg PO DAILY 4 Days Qty: 4 RF: 0 cefpodoxime 200 mg tablet 200 mg PO BID 7 Days Qty: 14 RF: 0 No Action prednisone 20 mg tablet 40 mg PO DAILY 5 Days Qty: 10 RF: 0 Discharge Orders: Discharge Order (Routine); Ordered 05/26/20 Ordered By: Cayetano Woods Diet: low fat, low cholesterol Activity on Discharge: As tolerated Stand Alone Forms: Patient Portal Discharge page Care Plan Goals: As above Health Concerns: Acute respiratory failure/COVID-19 infection recommend to continue wearing mask, use oxygen 1 L by nasal cannula at rest and with activity. Plan of Treatment: Patient admitted with COVID-19 infection and respiratory failure, patient treated with remdesivir and IV dexamethasone and now being discharged home on home oxygen, cough medication recommend to ambulate and use incentive spirometry. Assessment: See discharge plan
--- NOTE | 2020-05-26 13:05 | MHC.CM.PN ---
Patient will be discharged home today with [facility] and O2 from [facility]. Family will provide transportation. Patient and nurse made aware.
[2020-05-26 13:10] VITALS: PULSE 114; PULSE 115; O2SAT 93; O2SAT 94
[2020-05-26 15:54] VITALS: BP 166/79; PULSE 117; RESP 21; TEMP 35.8; O2SAT 94
--- NOTE | 2020-05-29 18:05 | CONS_ITS ---
DATE OF SERVICE: 05/23/2020 HISTORY OF PRESENT ILLNESS: This gentleman is 65-year-old admitted since 05/16/2020. For about 1 week prior to his admission, he had been sick with cough and shortness of breath. Initially seen in an urgent care and tested positive for COVID, sent home on prednisone and some antibiotics. He got worse and then was seen in the emergency room on 05/13 and again after checking in the ER, he was sent home but continued to get worse, so he came back to the emergency room on 05/16 and was readmitted. This patient had about 7 to 10 days of being sick before coming to the hospital. He was not running fever at this time. He did have moderate amount of cough and mainly, he was quite hypoxemic and needed oxygen supplements. After admission, he has been treated with a course of dexamethasone 6 mg IV daily. He did not qualify for remdesivir. He has been on oxygen, luckily did not require high-flow and he is doing okay with nasal cannula at 4 L/minute. He is progressing slowly but still requires oxygen. PAST MEDICAL HISTORY: Includes longstanding COPD/bronchial asthma and he is doing well with Flovent 250 one inhalation b.i.d. and albuterol p.r.n. He has peripheral neuropathy, difficulty in standing and walking. Has previous history of DVT. Has arthritis of the knees. Also has symptoms of bladder outlet obstruction. Long-standing history of obstructive sleep apnea due to morbid obesity and he does use CPAP regularly at night. REVIEW OF SYSTEMS: Includes that he is generally weak, he is morbidly obese. He is mostly in the chair. Does walk with a walker. Has no chest pain, but he does have dyspnea on exertion. He has no GI problem. No urinary symptoms at this time. SOCIAL HISTORY: He is nonsmoker, nondrinker. PHYSICAL EXAMINATION: GENERAL: This 65-year-old gentleman is grossly obese with round face, sitting up in the recliner at this time. VITAL SIGNS: Respiratory rate is 18 and does not show any distress. HEENT: Throat is very crowded, but clear. No infection. NECK: No JVD. Carotids normal. Trachea midline. CHEST: Chest wall is quite obese. Percussion note is not perceptible. Breath sounds are distant, and there are no wheezes or crepitations heard at this time. CARDIAC: Sounds are also distant. PMI is not palpable. No murmurs or gallops. ABDOMEN: Grossly obese, but soft and nontender. EXTREMITIES: Bulky with chronic stasis edema. No calf tenderness. Peripheral pulses are not palpable. IMAGING: Chest x-ray of 05/16 shows infiltrates on both sides, suggesting COVID pneumonia. CTA of the chest shows no evidence of pulmonary embolism and there are reticular type infiltrates in both upper lobes and lower lobes. There are no dense consolidations. Current O2 saturation 92% on 4 L/minute. CLINICAL IMPRESSION: Bilateral COVID pneumonia, in recovery phase. DICTATION ENDS HERE. MD ELSI Nino/SALIMA / [phone]
== END 2020-05-26 16:13 | disposition home health service (06) | DRG 137 ==
LOC: HO.ED 13:30 → HO.EDOVER 14:19 → HO.IMC 17:23
PROVIDERS: Physician Assistant; Admitting Provider Internal Medicine; Emergency Provider Emergency Medicine; PCP Nurse Practitioner Family; Visit Provider Hospitalist
DX: U07.1 COVID-19 (principal); J96.01 Acute respiratory failure with hypoxia; J12.82 Pneumonia due to coronavirus disease 2019; E78.5 Hyperlipidemia, unspecified; E66.01 Morbid (severe) obesity due to excess calories; Z68.41 Body mass index [BMI] 40.0-44.9, adult; R04.0 Epistaxis; N40.1 Benign prostatic hyperplasia with lower urinary tract symptoms; N13.8 Other obstructive and reflux uropathy; J44.9 Chronic obstructive pulmonary disease, unspecified; J98.4 Other disorders of lung; G25.81 Restless legs syndrome; Z99.89 Dependence on other enabling machines and devices; Z86.718 Personal history of other venous thrombosis and embolism; Z79.1 Long term (current) use of non-steroidal anti-inflammatories (NSAID); Z79.52 Long term (current) use of systemic steroids; Z79.82 Long term (current) use of aspirin; Z79.899 Other long term (current) drug therapy
CPT/HCPCS: 36415; 71045; 71275; 80048; 80076; 81001; 83605; 83735; 83880; 84145; 84484; 85025; 85379; 85610; 85730; 86140; 87040; 87635; 93005; 94660; 96361; 96374; 99285; 99291; J1100; J1650; J3490; Q9967

== ENCOUNTER → 2020-05-31 14:56 | Outpatient (BNVA) | payer OTHER, SELFPAY | PROVIDERS: PCP Nurse Practitioner Family; Visit Provider Internal Medicine ==

== ENCOUNTER 2020-06-06 13:17 | Outpatient (REF) | payer OTHER, SELFPAY ==
--- NOTE | ~2020-06-06 | US_ITS ---
EXAMINATION: US VENOUS ULTRASOUND WITH DOPPLER LOWER EXTREMITY, LEFT CLINICAL INFORMATION: Localized edema left lower extremity. Assess for occult DVT. COMPARISON: None TECHNIQUE: Ultrasound of the deep veins is performed from the hip to the calf with compression sonography and color and pulse Doppler assessment. Spectral analysis with color-flow imaging is performed. FINDINGS: There is normal venous compression and respiratory variation and augmented flow. The visualized common femoral vein, superficial femoral vein, profunda femoral vein, popliteal vein, and the trifurcation region shows no evidence of deep venous thrombosis. No popliteal fossa cyst demonstrated. US/US venous duplex LE LT IMPRESSION: No DVT demonstrated in the left lower extremity.
== END 2020-06-06 13:18 | disposition home or self-care (01) ==
LOC: HO.HMGCX 13:17
PROVIDERS: PCP Nurse Practitioner Family; Visit Provider Hospitalist
DX: R60.0 Localized edema (principal)
CPT/HCPCS: 93971

== ENCOUNTER → 2020-06-13 09:45 | Outpatient (BNVA) | payer OTHER, SELFPAY | PROVIDERS: PCP Nurse Practitioner Family; Visit Provider Surgery Vascular Surgery ==

== ENCOUNTER 2020-06-26 14:05 | Outpatient (REF) | payer OTHER, SELFPAY ==
--- NOTE | ~2020-06-26 | XR_ITS ---
EXAMINATION: XR CHEST CLINICAL INFORMATION: Respiratory failure. Hypoxia. COMPARISON: Chest 05/16/2020 TECHNIQUE: 2 views of the chest were obtained. FINDINGS: The lungs are somewhat expanded with increased interstitial markings in both lungs. Slightly improved patchy infiltrates since 05/16/2020. There is no pleural effusion. The heart size and pulmonary vascularity is normal. No gross bony abnormality seen. XR/XR chest 2V IMPRESSION: Bilateral increase interstitial markings likely residual Covid disease. No confluent infiltrate seen.
== END 2020-06-26 14:06 | disposition home or self-care (01) ==
LOC: HO.XRAY 14:05
PROVIDERS: PCP Nurse Practitioner Family; Visit Provider Internal Medicine
DX: J96.91 Respiratory failure, unspecified with hypoxia (principal); R00.0 Tachycardia, unspecified; R60.0 Localized edema; E66.01 Morbid (severe) obesity due to excess calories; G47.33 Obstructive sleep apnea (adult) (pediatric); J44.9 Chronic obstructive pulmonary disease, unspecified; J98.4 Other disorders of lung; U07.1 COVID-19; J12.82 Pneumonia due to coronavirus disease 2019; Z68.42 Body mass index [BMI] 45.0-49.9, adult; Z87.891 Personal history of nicotine dependence; Z99.89 Dependence on other enabling machines and devices; Z99.81 Dependence on supplemental oxygen
CPT/HCPCS: 71046; 93005

== ENCOUNTER → 2020-06-27 10:45 | Outpatient (BNVA) | payer OTHER, SELFPAY | PROVIDERS: PCP Nurse Practitioner Family; Visit Provider Urology | DX: N32.0 Bladder-neck obstruction (principal); N30.20 Other chronic cystitis without hematuria | CPT/HCPCS: 51798; 81002 ==

== ENCOUNTER 2020-07-07 13:45 | Outpatient (REF) | payer OTHER, SELFPAY ==
--- NOTE | 2020-07-07 15:26 | PFT_ITS ---
Forced vital capacity moderately reduced. FEV1 also moderately reduced. [id number] is markedly reduced and MVV moderately reduced. Post bronchodilator therapy, no significant changes noted. Total lung capacity and residual volume are normal. Diffusion capacity is markedly decreased. CONCLUSION: Moderately severe obstructive airway disorder. No response to bronchodilator therapy. Diffusion capacity is markedly decreased, which is partly due to chronic obstructive pulmonary disease and may be partly due to non-pulmonary factors. For this, clinical correlation is recommended. Savanna Andujar MD MSB/MODL / [id number]
== END 2020-07-07 13:46 | disposition home or self-care (01) ==
LOC: HO.RESP 13:45
PROVIDERS: PCP Nurse Practitioner Family; Visit Provider Internal Medicine
DX: J96.91 Respiratory failure, unspecified with hypoxia (principal); J44.9 Chronic obstructive pulmonary disease, unspecified; J12.82 Pneumonia due to coronavirus disease 2019; G47.33 Obstructive sleep apnea (adult) (pediatric); U07.1 COVID-19; Z99.89 Dependence on other enabling machines and devices
CPT/HCPCS: 94060; 94727; 94729

== ENCOUNTER 2020-07-13 07:16 | Outpatient (REF) | payer OTHER, SELFPAY ==
[2020-07-13 11:35] LABS: Alanine Aminotransferase 21 U/L (0-40); Albumin Level 3.6 g/dL (3.5-5.0); Alkaline Phosphatase 96 U/L (39-117); Anion Gap 15 (12-20); Aspartate Amino Transferase 22 U/L (5-37); Blood Urea Nitrogen 14 mg/dL (9-16); Calcium 8.9 mg/dL (8.4-10.2); Carbon Dioxide 24 mmol/L (22-29); Chloride 104 mmol/L (96-108); Cholesterol 113 mg/dL; Estimated Glomerular Filt Rate > 60; Glucose Fasting 96 mg/dL (60-99); HDL Cholesterol 33 mg/dL; LDL Cholesterol Calculated 62 mg/dl; Potassium 4.2 mmol/L (3.3-5.1); Sodium 139 mmol/L (135-145); Total Protein 6.7 g/dL (6.5-8.0); Triglycerides 93 mg/dL
[2020-07-13 11:59] LABS: Prostate Specific Antigen Scr 1.65 ng/mL (<0.05-4.0)
== END 2020-07-13 07:17 | disposition home or self-care (01) ==
LOC: HO.HMGCLDS 07:16
PROVIDERS: PCP Nurse Practitioner Family; Visit Provider Nurse Practitioner Family
DX: Z00.00 Encounter for general adult medical examination without abnormal findings (principal); Z12.5 Encounter for screening for malignant neoplasm of prostate
CPT/HCPCS: 36415; 80053; 80061; 84153; 84443

== ENCOUNTER 2020-07-20 10:07 | Outpatient (REF) | payer OTHER, SELFPAY ==
--- NOTE | ~2020-07-20 | XR_ITS ---
EXAMINATION: XR CHEST CLINICAL INFORMATION: Localized edema. COMPARISON: 06/26/2020 and 05/16/2020 chest radiographs, chest CTA dated 05/16/2020. TECHNIQUE: 2 views of the chest were obtained. FINDINGS: Coarsened interstitial markings are again seen with similar distribution to the previous study. No definitive new infiltrate is seen. There are no pleural effusions. The heart and mediastinal structures are unremarkable. XR/XR chest 2V IMPRESSION: Coarsened interstitial markings bilaterally are similar to the previous study. This could be secondary to residual COVID pneumonia as previously suggested. This is seen on top of known COPD. No definitive new infiltrate.
== END 2020-07-20 10:08 | disposition home or self-care (01) ==
LOC: HO.XRAY 10:07
PROVIDERS: PCP Nurse Practitioner Family; Visit Provider Nurse Practitioner Family
DX: U07.1 COVID-19 (principal); J12.82 Pneumonia due to coronavirus disease 2019; R60.0 Localized edema
CPT/HCPCS: 71046

== ENCOUNTER → 2020-07-25 10:42 | Outpatient (BNVA) | payer OTHER, SELFPAY | PROVIDERS: PCP Nurse Practitioner Family; Visit Provider Internal Medicine ==

== ENCOUNTER 2020-09-04 09:57 | Outpatient (REF) | payer OTHER, SELFPAY ==
--- NOTE | ~2020-09-04 | US_ITS ---
EXAMINATION: BILATERAL LOWER EXTREMITY VENOUS ULTRASOUND (Reflux Exam) CLINICAL INDICATION: Varicose veins of left lower extremity with inflammation. COMPARISON: None. TECHNIQUE: Color flow triplex imaging and compression Doppler was performed to evaluate both the deep and the superficial systems bilaterally. To evaluate the superficial system, the examination was performed in the upright position. Color-flow Doppler ultrasound and compression ultrasound were utilized. In addition, maneuvers were utilized to demonstrate reflux. FINDINGS: 1. DEEP VENOUS ULTRASOUND OF THE RIGHT LOWER EXTREMITY: Common Femoral Vein: Compressible, normal respiratory variation and augmented flow. Femoral vein: Compressible, normal color flow and augmentation. Popliteal Vein: Compressible, normal augmentation. Deep Reflux: There is reflux throughout the deep system measuring up to 2.1 seconds within the common femoral vein, 2.1 seconds within the femoral vein and 1.3 seconds within the popliteal vein. There is no evidence of a Caraballo's cyst. 2. SUPERFICIAL ULTRASOUND WITH DOPPLER OF RIGHT LOWER EXTREMITY GREAT SAPHENOUS VEIN: Saphenofemoral junction: 1.13 cm; Reflux: No evidence of reflux. Proximal thigh: 0.4 cm; Reflux: Greater than 1.6 seconds Mid thigh: 0.5 cm; Reflux: No evidence of reflux. The great saphenous vein from above the knee to the ankle is occluded consistent with prior treatment. DUPLICATED GREAT SAPHENOUS VEIN: Lateral, 0.4 cm at the junction, greater than 1.6 seconds of reflux SMALL SAPHENOUS VEIN: Saphenopopliteal junction: 0.4 cm; greater than 2.3 seconds of reflux Distal calf: 0.2 cm; greater than 1.8 seconds of reflux VEIN OF GIACOMINI: None Imaged. PERFORATORS: Thigh, 0.4 cm, greater than 2.2 seconds of reflux VARICOSITIES: Proximal thigh, 1 cm, no reflux Mid thigh, 0.4 cm, greater than 3.3 seconds of reflux A, 0.3 cm, greater than 3.3 seconds of reflux Comment 0.3 cm, no reflux 3. DEEP VENOUS ULTRASOUND OF THE LEFT LOWER EXTREMITY: Common Femoral Vein: Compressible, normal respiratory variation and augmented flow. Femoral vein: Compressible, normal color flow and augmentation. Popliteal Vein: Compressible, normal augmentation. Deep Reflux: There is reflux demonstrated within the common femoral vein measuring up to 2.6 seconds. There is no evidence of a Caraballo's cyst. 4. SUPERFICIAL ULTRASOUND WITH DOPPLER OF LEFT LOWER EXTREMITY GREAT SAPHENOUS VEIN: Saphenofemoral junction: 1.8 cm; Reflux: Greater than 1 seconds of reflux Proximal thigh: 0.7 cm; Reflux: Greater than 0.7 seconds of reflux Mid thigh: 0.5, greater than 2 seconds of reflux cm; Reflux: No evidence of reflux. The great saphenous vein from above the knee to the ankle is occluded consistent with prior treatment. DUPLICATED GREAT SAPHENOUS VEIN: None SMALL SAPHENOUS VEIN: Not visualized. VEIN OF GIACOMINI: None Imaged. PERFORATORS: Distal thigh, 0.3 cm, no reflux VARICOSITIES: Proximal thigh, 0.4 cm, no reflux Mid thigh, 0.5 cm, greater than 2.2 seconds of reflux Distal thigh, 0.4 cm, greater than 1.9 seconds of reflux Proximal calf, 0.5 cm, no reflux US/US venous duplex LE BI IMPRESSION: 1. The bilateral great saphenous veins are occluded from above the knee to the ankle bilaterally consistent with prior treatment. 2. There is venous insufficiency of the duplicated lateral right great saphenous vein beginning at the junction. 3. There is venous insufficiency of the right small saphenous vein beginning at the saphenopopliteal junction. 4. Bilateral refluxing varicosities as above. 5. There is deep venous insufficiency throughout the right lower extremity as well as deep venous insufficiency of the left common femoral vein. 6. No evidence of DVT.
== END 2020-09-04 09:58 | disposition home or self-care (01) ==
LOC: HO.US 09:57
PROVIDERS: Visit Provider Surgery Vascular Surgery
DX: I83.12 Varicose veins of left lower extremity with inflammation (principal); I83.893 Varicose veins of bilateral lower extremities with other complications
CPT/HCPCS: 93970

== ENCOUNTER → 2020-09-19 09:47 | Outpatient (BNVA) | payer OTHER, SELFPAY | PROVIDERS: PCP Nurse Practitioner Family; Visit Provider Surgery Vascular Surgery ==

== ENCOUNTER 2020-10-01 10:36 | Emergency (ER) | payer OTHER, SELFPAY ==
--- NOTE | ~2020-10-01 | CT_ITS ---
EXAMINATION: CT ABDOMEN AND PELVIS WITHOUT CONTRAST CLINICAL INFORMATION: Gross hematuria and left flank pain COMPARISON: None TECHNIQUE: Multidetector volumetric imaging was performed from the superior aspect of the liver through the pubic symphysis. Sagittal and coronal reformatted images were obtained on the technologist's workstation. This CT examination was performed using dose optimization techniques as appropriate, variously including the following: *Automated exposure control *Adjustment of mA and/or kV according to patient size (this includes techniques or standardized protocols for targeted exams where dose is matched to indication/reason for exam; i.e. extremities or head) *Use of iterative reconstruction technique DLP: 1728 mGy-cm FINDINGS: LUNG BASES: There is bibasilar patchy atelectasis. The heart size is normal. LIVER, GALLBLADDER, AND BILIARY TREE: The liver is normal in size, shape, and attenuation. No focal hepatic lesion or biliary ductal dilatation is present. There are small radiopaque gallstones without wall thickening. PANCREAS: Unremarkable. SPLEEN: Unremarkable. ADRENAL GLANDS: Unremarkable. KIDNEYS AND URETERS: The kidneys are normal in size, shape, and attenuation. No hydronephrosis, hydroureter, or calculi seen. No perinephric stranding. There is an exophytic isodense lesion in lower pole right kidney and upper/mid pole left kidney.. There is mild perinephric fat stranding. BLADDER: Unremarkable. GASTROINTESTINAL TRACT: There is moderate stool and diverticula seen throughout the colon without distention or diverticulitis. Appendix is not seen with certainty. There are surgical wagner of the base of the appendix likely from previous appendectomy. ABDOMINAL WALL: No significant hernia is appreciated. LYMPH NODES: There are scattered benign lymph nodes in the retroperitoneum VASCULAR: There is atherosclerotic calcification of abdominal aorta. PELVIC VISCERA: The prostate gland is normal size. OSSEOUS STRUCTURES: There are degenerative disc changes with vacuum disc phenomena at L1-L2 through L4-L5 disc levels with mild ventral spondylosis. No lytic or sclerotic process seen. CT/CT abdomen pelvis wo con IMPRESSION: Mild constipation. Colonic diverticulosis without diverticulitis. Bilateral isodense exophytic bilateral renal lesions but no radiopaque renal calculi or hydronephrosis. Gallstones without wall thickening
[2020-10-01 10:41] VITALS: BP 146/82; PULSE 112; RESP 19; TEMP 36.6; O2SAT 98; BMI 42.5
--- NOTE | 2020-10-01 11:06 | ED_ITS ---
HPI - General Adult General Chief complaint: General Medical Stated complaint: blood in urine Time Seen by Provider: 10/01/20 11:04 Source: patient Mode of arrival: ambulatory Limitations: no limitations History of Present Illness HPI narrative: 65-year-old male presents with gross hematuria worsening over the last week. His symptoms have been intermittent, but for the past 24 hours patient has dark urine with clots. He has mild burning at the beginning of urination. Has urinary frequency and urgency, but he has recently been started on a diuretic. He has left lower flank pain. He feels that he is emptying his bladder completely. He has had no nausea, no weight loss, no abdominal pain. His urine will start clear and then become dark red with clots. Patient sees Urology at [facility]. Per Urology note June 2020, he had micro hematuria, cystoscopy, but no gross hematuria at that time. Patient has a bladder outlet obstruction with chronic cystitis. Patient tells me he started seeing Urology 1 year ago due to gross hematuria. Patient is morbidly obese with COPD on 2 L of oxygen, with restrictive lung disease due to his obesity. History of chronic cellulitis. Related Data Home Medications Medication Instructions Recorded Confirmed albuterol sulfate 90 mcg/actuation 1 inh INHALATION QID PRN 11/17/19 07/18/20 aerosol inhaler (ProAir HFA) amitriptyline 100 mg tablet 100 mg PO BEDTIME 11/17/19 07/18/20 duloxetine 60 mg capsule,delayed 60 mg PO DAILY 11/17/19 07/18/20 release pregabalin 75 mg capsule 75 mg PO BID cap 11/17/19 07/18/20 ropinirole 2 mg tablet 2 mg PO TID 05/16/20 07/18/20 fluticasone propionate 110 2 puff INHALATION BID g 07/25/20 mcg/actuation HFA aerosol inhaler (Flovent HFA) Previous Rx's Medication Instructions Recorded terazosin 5 mg capsule 5 mg PO BEDTIME 90 Days #90 cap 06/27/20 aspirin 81 mg tablet,delayed 81 mg PO DAILY 90 Days #90 tab 07/18/20 release (Adult Low Dose Aspirin) atorvastatin 80 mg tablet 80 mg PO BEDTIME 90 Days #90 tab 07/18/20 methocarbamol 500 mg tablet 500 mg PO BEDTIME PRN 30 Days #30 07/18/20 tab albuterol sulfate 90 mcg/actuation 2 puff INHALATION Q4-6H PRN 90 07/25/20 aerosol inhaler (ProAir HFA) Days #8.5 g fluticasone propionate 110 2 puff INHALATION BID 90 Days #12 g 07/25/20 mcg/actuation HFA aerosol inhaler (Flovent HFA) Anoro Ellipta 62.5 mcg-25 1 inh PO DAILY #60 ea NS 08/22/20 mcg/actuation powder for inhalation (umeclidinium-vilanterol) finasteride 5 mg tablet 5 mg PO DAILY 90 Days #90 tab 08/22/20 naproxen 500 mg tablet 500 mg PO BID PRN 90 Days #180 tab 08/22/20 furosemide 20 mg tablet 20 mg PO DAILY #90 tab 08/31/20 Allergies Allergy/AdvReac Type Severity Reaction Status Date / Time No Known Allergies Allergy Verified 10/01/20 10:40 [No Known Allergies*] Review of Systems Constitutional: Constitutional: Denies chills, Denies fatigue, Denies fever(s), Denies weakness, Denies weight gain and Denies weight loss Eyes: Eyes: Denies eye pain Cardiovascular: Cardiovascular: Denies chest pain, Denies leg edema, Denies palpitations, Denies dyspnea and Denies dyspnea on exertion Respiratory: Respiratory: Reports cough (chronic for years), Denies hemoptysis, Denies dyspnea and Denies dyspnea on exertion Gastrointestinal: Gastrointestinal: Denies abdominal pain, Denies h ematochezia, Denies coffee ground emesis, Denies diarrhea, Denies nausea, Denies vomiting and Denies hematemesis Genitourinary: Genitourinary: Reports hematuria, Denies oliguria, Denies difficulty urinating, Denies genital pain, Reports dysuria (mild burning at micturation), Reports flank pain (left, mild), Denies penile discharge, Denies testicular pain, Reports urinary frequency, Denies urinary hesitancy, Denies urinary incontinence and Reports urinary urgency Musculoskeletal: Musculoskeletal: Reports no additional musculoskeletal complaints, Denies numbness and Denies tingling Integumentary/Breasts: Skin/Breast: Reports erythema (chronic LE cellulitis) and Reports rash (chronic LE cellulitis) Comments: chronic LE edema, redness, no recent changes Neurologic: Denies focal weakness, Denies numbness, Denies tingling and Denies weakness Psychiatric: Psychiatric: Reports no additional psychiatric complaints Endocrine: Endocrine: Denies fatigue and Denies palpitations Hematologic/Lymphatic: Hematologic/Lymphatic: Denies easy bruising and Denies lymphadenopathy PMF Past Medical History Medical History Bladder outlet obstruction Chronic cystitis COPD (chronic obstructive pulmonary disease) COPD (chronic obstructive pulmonary disease) MATUTE (dyspnea on exertion) History of diverticulitis History of umbilical hernia Injury of right rotator cuff Morbid obesity JEFFRY (obstructive sleep apnea) JEFFRY on CPAP Respiratory failure with hypoxia Restless leg syndrome Restrictive lung disease Traumatic complete tear of right rotator cuff Surgical History History of appendectomy History of arthroscopy of left knee Family History Family History Father Arthritis Diabetes Mother Arthritis Kidney stones Family/Other Arthritis Sister No problems noted. Sister No problems noted. Son No problems noted. 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 [employer] Physical Exam Vital Signs: Vital Signs: Last Vital Signs Temp 98 F 10/01/20 10:41 Pulse 99 10/01/20 11:59 Resp 19 10/01/20 10:41 BP 146/82 H 10/01/20 10:41 Pulse Ox 97 10/01/20 11:59 Oxygen Flow Rate 2 10/01/20 10:41 Body Mass Index 42.5 Const: General: cooperative, comfortable, no acute distress, alert and awake Nutritional Appearance: obese centrally obese Orientation/consciousness: patient oriented x3 Limitations: no limitations HENMT: Head: Yes normal to inspection, Yes atraumatic and Yes abrasion Ears: hearing grossly normal bilaterally Eyes: Pupils: Equal, round and reactive pupils present EOM: EOMs intact bilaterally Neck: Neck: Yes full ROM, Yes no meningeal signs, Yes trachea midline and Yes supple Resp: Effort & Inspection: normal respiratory effort Auscultation: clear to auscultation bilaterally, no crackles, no rales, no rhonchi and no wheezes Cardio: Rate: regular rate Rhythm: regular rhythm Heart sounds: S1 norm al heart sound present and S2 normal heart sound present GI: Inspection: Yes Abdominal panniculus present and Yes obesity Palpation (GI): Soft to palpation, not firm, nontender, no guarding and not rigid Percussion: Yes normal to percussion Auscultation: normal bowel sounds Rectal Exam - Male: Yes deferred : General: Yes bladder normal to inspection, Yes bladder normal to palpation and Yes no CVA tenderness Male General Exam: No erythema, No inguinal lymphadenopathy, No Genital lesions present and No tenderness Penis: normal penis, circumcised and No Genital lesions present Meatus: meatus normal and No Blood at meatus present Scrotum: no ecchymosis, edematous bilateral and diffuse and not erythematous Testes: Testes normal, no epidiymal masses, no epidiymal tenderness, no masses and no testicular mass Back/Spine/Pelvis: Back: no CVA tenderness Cervical Spine: normal cervical lordosis Skin: Other: chronic bilteral LE edema, redness, no recent changes mild inguinal candidiasis Neuro: General: patient oriented x3 and no meningeal signs Cranial nerves: Yes Equal, round and reactive pupils present Extrem: Right lower extremity: edema Details: non-pitting and 1+ and lower leg Details: erythema Location: of the distal lower leg; Negative for no tenderness and no unusual warmth Left lower extremity: edema Details: non-pitting and 1+ and lower leg Details: erythema Location: of the distal lower leg; Negative for no tenderness and no unusual warmth Course Course Course Narrative: 65-year-old male presents for 1 week of worsening gross hematuria. Will get urine, coags, chemistries, CT abdomen pelvis, do continuous bladder irrigation and re-evaluate. Patient feels well and is well appearing, initial heart rate was 112. Repeat heart rate is 99. Patient's urine shows 3+ blood with red blood cells too numerous to count, with trace leukocyte esterase. PTT/INR, PTT are normal. CMP shows a creatinine of 0.91, the labs are unremarkable. Continuous bladder irrigation is clear after [address] abdomen/pelvis shows Mild constipation. Colonic diverticulosis without diverticulitis. Bilateral isodense exophytic bilateral renal lesions but no radiopaque renal calculi or hydronephrosis. Gallstones without wall thickening Sent patient home with strict return precautions to return if he has urinary retention and cannot empty his bladder completely. Told patient to call [facility] tomorrow morning. Patient verbalized understanding and agreement of the plan. Medical Decision Making Lab Data Result diagrams: 10/01/20 11:40 10/01/20 11:41 Labs: Lab Results 10/01/20 10/01/20 10/01/20 Range/Units 11:28 11:40 11:41 WBC 6.6 (4.8-10.8) X10*3/uL RBC 4.40 L (4.60-5.80) X10*6/uL Hgb 14.1 (14.0-18.0) g/dl Hct 43.2 (42-52) % MCV 98.2 H (80-98) fL MCH 32.0 (27.0-33.0) pg MCHC 32.6 (31.0-36.0) g/dl RDW 12.4 (11.0-16.0) % Plt Count 261 (160-400) X10*3/uL MPV 9.3 L (9.4-12.4) fL Immature Gran % (Auto) 0.3 (0.0-0.4) % Neut % (Auto) 58.1 (45-73) % Lymph % (Auto) 28.1 (20-40) % Lane % (Auto) 8.5 (2-11) % Eos % (Auto) 4.2 H (0-4) % Baso % (Auto) 0.8 (0-2) % Lymph # (Auto) 1.9 (1.2-4.9) X10*3/uL Lane # (Auto) 0.6 (0.1-1.2) X10*3/uL Eos # (Auto) 0.3 (0.0-0.4) X10*3/uL Baso # (Auto) 0.1 (0.0-0.2) X10*3/uL Abs Immat Gran (auto) 0.02 (0.00-0.03) X10*3/uL Absolute Neuts (auto) 3.9 (2.0-8.3) X10*3/uL Absolute Nucleated RBC 0.000 (0.0-0.012) X10*3/uL Nucleated RBC % (auto) 0.0 (0.0-0.2) /100WBC PT 11.9 (9.9-13.0) SEC INR 1.0 (0.9-1.1) APTT 35.9 (24.1-38.0) SEC Sodium (135-145) mmol/L Potassium (3.3-5.1) mmol/L Chloride (96-108) mmol/L Carbon Dioxide (22-29) mmol/L Anion Gap (12-20) BUN (9-16) mg/dL Creatinine (0.5-1.4) mg/dL Estim Creat Clear Calc Estimated GFR Random Glucose (60-115) mg/dL Calcium (8.4-10.2) mg/dL Total Bilirubin (0.0-1.0) mg/dL AST (5-37) U/L ALT (0-40) U/L Alkaline Phosphatase (39-117) U/L Total Protein (6.5-8.0) g/dL Albumin (3.5-5.0) g/dL Urine Color PINK Urine Appearance CLOUDY Urine pH 6.0 (5.0-8.0) Ur Specific Fischer 1.010 (1.005-1.025) Urine Protein 1+ H (NEG-TRACE) MG/DL Urine Glucose (UA) NEG (NEG) MG/DL Urine Ketones NEG (NEG) MG/DL Urine Blood 3+ H (NEG) Urine Nitrite NEG (NEG) Ur Leukocyte Esterase TRACE H (NEG) Urine RBC TNTC H (0) /HPF Urine WBC 0-2 (0-4) /HPF Ur Squamous Epith Cells TRACE /LPF Urine Bacteria NONE /LPF 10/01/20 Range/Units 11:41 WBC (4.8-10.8) X10*3/uL RBC (4.60-5.80) X10*6/uL Hgb (14.0-18.0) g/dl Hct (42-52) % MCV (80-98) fL MCH (27.0-33.0) pg MCHC (31.0-36.0) g/dl RDW (11.0-16.0) % Plt Count (160-400) X10*3/uL MPV (9.4-12.4) fL Immature Gran % (Auto) (0.0-0.4) % Neut % (Auto) (45-73) % Lymph % (Auto) (20-40) % Lane % (Auto) (2-11) % Eos % (Auto) (0-4) % Baso % (Auto) (0-2) % Lymph # (Auto) (1.2-4.9) X10*3/uL Lane # (Auto) (0.1-1.2) X10*3/uL Eos # (Auto) (0.0-0.4) X10*3/uL Baso # (Auto) (0.0-0.2) X10*3/uL Abs Immat Gran (auto) (0.00-0.03) X10*3/uL Absolute Neuts (auto) (2.0-8.3) X10*3/uL Absolute Nucleated RBC (0.0-0.012) X10*3/uL Nucleated RBC % (auto) (0.0-0.2) /100WBC PT (9.9-13.0) SEC INR (0.9-1.1) APTT (24.1-38.0) SEC Sodium 140 (135-145) mmol/L Potassium 4.3 (3.3-5.1) mmol/L Chloride 105 (96-108) mmol/L Carbon Dioxide 29 (22-29) mmol/L Anion Gap 10 L (12-20) BUN 17 H (9-16) mg/dL Creatinine 0.91 (0.5-1.4) mg/dL Estim Creat Clear Calc 135.8 Estimated GFR > 60 Random Glucose 112 (60-115) mg/dL Calcium 9.1 (8.4-10.2) mg/dL Total Bilirubin 0.6 (0.0-1.0) mg/dL AST 22 (5-37) U/L ALT 23 (0-40) U/L Alkaline Phosphatase 79 (39-117) U/L Total Protein 6.6 (6.5-8.0) g/dL Albumin 3.7 (3.5-5.0) g/dL Urine Color Urine Appearance Urine pH (5.0-8.0) Ur Specific Fischer (1.005-1.025) Urine Protein (NEG-TRACE) MG/DL Urine Glucose (UA) (NEG) MG/DL Urine Ketones (NEG) MG/DL Urine Blood (NEG) Urine Nitrite (NEG) Ur Leukocyte Esterase (NEG) Urine RBC (0) /HPF Urine WBC (0-4) /HPF Ur Squamous Epith Cells /LPF Urine Bacteria /LPF Discharge Plan Discharge Clinical Impression: Gross hematuria Patient Disposition: Home, Self-Care Instructions: Hematuria (ED) Additional Instructions: Please call [facility] tomorrow morning for an appointment tomorrow. Please tell them that you were in the emergency room today for ?gross hematuria?. Please return to the emergency room if you cannot pass urine, however reduced urinary stream. This is very important, because a clot could be obstructing or urinary flow which could hurt your kidneys. Please return for worsening back pain, fevers, chest pain, shortness of breath. Prescriptions: No Action finasteride 5 mg tablet 5 mg PO DAILY 90 Days Qty: 90 RF: 2 Anoro Ellipta 62.5-25 mcg/actuation blister with device 1 inh PO DAILY Qty: 60 RF: 3 naproxen 500 mg tablet 500 mg PO BID PRN (Reason: pain) 90 Days Qty: 180 RF: 0 furosemide 20 mg tablet 20 mg PO DAILY Qty: 90 RF: 3 ropinirole 2 mg tablet 2 mg PO TID RF: 0 terazosin 5 mg capsule 5 mg PO BEDTIME 90 Days Qty: 90 RF: 1 atorvastatin 80 mg tablet 80 mg PO BEDTIME 90 Days Qty: 90 RF: 1 aspirin [Adult Low Dose Aspirin] 81 mg tablet,delayed release (DR/EC) 81 mg PO DAILY 90 Days Qty: 90 RF: 1 methocarbamol 500 mg tablet 500 mg PO BEDTIME PRN (Reason: Sleep) 30 Days Qty: 30 RF: 0 albuterol sulfate [ProAir HFA] 90 mcg/actuation HFA aerosol inhaler 1 inh inhalation QID PRN (Reason: Shortness Of Breath) RF: 0 amitriptyline 100 mg tablet 100 mg PO BEDTIME RF: 0 duloxetine 60 mg capsule,delayed release(DR/EC) 60 mg PO DAILY RF: 0 pregabalin 75 mg capsule 75 mg PO BID RF: 0 Flovent HFA 110 mcg/actuation HFA aerosol inhaler 2 puff inhalation BID RF: 0 Flovent HFA 110 mcg/actuation HFA aerosol inhaler 2 puff inhalation BID 90 Days Qty: 12 RF: 3 albuterol sulfate [ProAir HFA] 90 mcg/actuation HFA aerosol inhaler 2 puff inhalation Q4-6H PRN (Reason: shortness of breath or wheezing) 90 Days Qty: 8.5 RF: 0 Referrals: Prabhu Head MD [Physician] - 2 days (Gross hematuria for 1 week, see ED note from 10/01)
[2020-10-01 11:34] LABS: Glucose Urine UA NEG (NEG); Leukocyte Esterase Urine TRACE (NEG); Nitrite Urine NEG (NEG); UACC Culture Trigger YES; Urine Blood 3+ (NEG); Urine Ketones NEG (NEG); Urine Protein 1+ MG/DL (NEG-TRACE)
[2020-10-01 11:35] LABS: Appearance Urine CLOUDY; Color Urine PINK
[2020-10-01 11:45] LABS: RBC Urine TNTC /HPF (0); Squamous Epithelial Cell Urine TRACE /LPF; UACC CULT YES; WBC Urine 0-2 /HPF (0-4)
[2020-10-01 11:46] LABS: MANUAL DIFF FLAG NO
[2020-10-01 11:48] LABS: Basophils Absolute Auto 0.1 X10*3/uL (0.0-0.2); Basophils Percent Auto 0.8 % (0-2); Eosinophils Absolute Auto 0.3 X10*3/uL (0.0-0.4); Eosinophils Percent Auto 4.2 % (0-4); Hematocrit 43.2 % (42-52); Hemoglobin 14.1 g/dl (14.0-18.0); Imm Gran Abs Auto 0.02 X10*3/uL (0.00-0.03); Imm Gran Pct Auto 0.3 % (0.0-0.4); Lymphocytes Absolute Auto 1.9 X10*3/uL (1.2-4.9); Lymphocytes Percent Auto 28.1 % (20-40); Mean Corpuscular HGB Conc 32.6 g/dl (31.0-36.0); Mean Corpuscular Volume 98.2 fL (80-98); Mean Platelet Volume 9.3 fL (9.4-12.4); Monocytes Absolute Auto 0.6 X10*3/uL (0.1-1.2); Monocytes Percent Auto 8.5 % (2-11); Neutrophils Absolute Auto 3.9 X10*3/uL (2.0-8.3); Neutrophils Percent Auto 58.1 % (45-73); Platelet Count 261 X10*3/uL (160-400); Red Cell Distribution Width 12.4 % (11.0-16.0); White Blood Count 6.6 X10*3/uL (4.8-10.8)
[2020-10-01 11:53] LABS: Prothrombin Time 11.9 SEC (9.9-13.0)
[2020-10-01 11:56] LABS: Partial Thromboplastin Time 35.9 SEC (24.1-38.0)
[2020-10-01 11:59] VITALS: PULSE 99; O2SAT 97
[2020-10-01] MEDS: Lidocaine HCl 2 % Urojet 10 ML JEL.PF.APP TOPICAL (11:59)
[2020-10-01] MEDS: 0.9 % Sodium Chloride 1,000 ML 999 ML IV (11:59)
[2020-10-01 12:11] LABS: Alanine Aminotransferase 23 U/L (0-40); Albumin Level 3.7 g/dL (3.5-5.0); Alkaline Phosphatase 79 U/L (39-117); Anion Gap 10 (12-20); Aspartate Amino Transferase 22 U/L (5-37); Bilirubin Total 0.6 mg/dL (0.0-1.0); Blood Urea Nitrogen 17 mg/dL (9-16); Calcium 9.1 mg/dL (8.4-10.2); Carbon Dioxide 29 mmol/L (22-29); Chloride 105 mmol/L (96-108); Creatinine Clr Calc Pharmacy 135.8; Estimated Glomerular Filt Rate > 60; Glucose Random 112 mg/dL (60-115); Potassium 4.3 mmol/L (3.3-5.1); Sodium 140 mmol/L (135-145); Total Protein 6.6 g/dL (6.5-8.0)
--- NOTE | 2020-10-01 13:26 | PC.NURSE ---
PT VOIDED CLEAR, PALE YELLOW URINE PRIOR TO CBI. 500CCS OF CLEAR FLUID DRAINED INTO MANZO FROM IRRIGATION. IRRIGATION WAS THEN STOPPED. PA MADE AWARE. PT NOW CONTINUES TO PRODUCE CLEAR PALE YELLOW URINE, NO SIGNS OF CLOTS OR BLOOD.
[2020-10-01 13:37] VITALS: BP 131/92; PULSE 90; RESP 16; O2SAT 96
== END 2020-10-01 14:00 | disposition home or self-care (01) ==
PROVIDERS: Physician Assistant; Emergency Provider Emergency Medicine; PCP Nurse Practitioner Family
DX: R31.0 Gross hematuria (principal); J44.9 Chronic obstructive pulmonary disease, unspecified; R10.9 Unspecified abdominal pain; Z79.899 Other long term (current) drug therapy; Z99.81 Dependence on supplemental oxygen
CPT/HCPCS: 36415; 74176; 80053; 81001; 85025; 85610; 85730; 87086; 96360; 99284

== ENCOUNTER 2020-10-04 12:09 | Emergency (ER) | payer OTHER, SELFPAY ==
[2020-10-04 13:08] VITALS: BP 123/81; PULSE 95; RESP 18; TEMP 36.7; O2SAT 97; BMI 42.5
== END 2020-10-04 14:37 | disposition left against medical advice (07) ==
PROVIDERS: Emergency Provider Emergency Medicine; PCP Nurse Practitioner Family
DX: R33.9 Retention of urine, unspecified (principal)
CPT/HCPCS: 51700; 99281; 99282

== ENCOUNTER 2020-10-04 16:59 | Outpatient (REF) | payer OTHER, SELFPAY | END 2020-10-04 17:00 | disposition home or self-care (01) | LOC: HO.LNP 16:59 | PROVIDERS: Visit Provider Urology | DX: N30.20 Other chronic cystitis without hematuria (principal) | CPT/HCPCS: 87086 ==

== ENCOUNTER → 2020-10-30 12:20 | Outpatient (BNVA) | payer OTHER, SELFPAY | PROVIDERS: PCP Nurse Practitioner Family; Visit Provider Internal Medicine Cardiovascular Disease | DX: R06.00 Dyspnea, unspecified (principal); R00.0 Tachycardia, unspecified | CPT/HCPCS: 93005 ==

== ENCOUNTER 2020-12-21 08:43 | Outpatient (REF) | payer OTHER, SELFPAY ==
[2020-12-21 10:26] LABS: Appearance Urine CLEAR; Color Urine YELLOW; Glucose Urine UA NEG (NEG); Leukocyte Esterase Urine NEG (NEG); Nitrite Urine NEG (NEG); Specific Gravity - Urine 1.025 (1.005-1.025); Urine Blood 1+ (NEG); Urine Ketones NEG (NEG); Urine Protein NEG (NEG-TRACE)
[2020-12-21 12:06] LABS: Bacteria Urine 1+ /LPF; Squamous Epithelial Cell Urine 1+ /LPF
== END 2020-12-21 08:44 | disposition home or self-care (01) ==
LOC: HO.LAB 08:43
PROVIDERS: Absent Provider Urology; PCP Nurse Practitioner Family; Visit Provider Surgery Vascular Surgery
DX: N30.20 Other chronic cystitis without hematuria (principal); I83.12 Varicose veins of left lower extremity with inflammation
CPT/HCPCS: 81001; 87086

== ENCOUNTER 2021-01-01 06:51 | Outpatient (REF) | payer OTHER, SELFPAY ==
[2021-01-01 11:47] LABS: Appearance Urine CLEAR; Color Urine YELLOW; Glucose Urine UA NEG (NEG); Leukocyte Esterase Urine NEG (NEG); Nitrite Urine NEG (NEG); PH 6.5 (5.0-8.0); UACC Culture Trigger NO; Urine Blood 2+ (NEG); Urine Ketones NEG (NEG); Urine Protein TRACE MG/DL (NEG-TRACE)
[2021-01-01 12:07] LABS: UACC CULT YES
[2021-01-01 12:08] LABS: Calcium Oxalate Crystals Urine TRACE /LPF; RBC Urine 0-2 /HPF (0)
[2021-01-01 12:19] LABS: Alanine Aminotransferase 26 U/L (0-40); Albumin Level 3.7 g/dL (3.5-5.0); Alkaline Phosphatase 80 U/L (39-117); Anion Gap 12 (12-20); Aspartate Amino Transferase 24 U/L (5-37); Bilirubin Total 0.7 mg/dL (0.0-1.0); Blood Urea Nitrogen 19 mg/dL (9-16); Calcium 7.8 mg/dL (8.4-10.2); Carbon Dioxide 27 mmol/L (22-29); Chloride 105 mmol/L (96-108); Cholesterol 107 mg/dL; Estimated Glomerular Filt Rate > 60; Glucose Fasting 96 mg/dL (60-99); HDL Cholesterol 34 mg/dL; LDL Cholesterol Calculated 61 mg/dl; Potassium 4.5 mmol/L (3.3-5.1); Sodium 139 mmol/L (135-145); Total Protein 6.6 g/dL (6.5-8.0); Triglycerides 60 mg/dL
[2021-01-01 12:25] LABS: Prostate Specific Antigen Scr 1.16 ng/mL (<0.05-4.0); TSH reflex Free T4 0.41 uIU/mL (0.32-4.0)
== END 2021-01-01 06:52 | disposition home or self-care (01) ==
LOC: HO.HMGCLDS 06:51
PROVIDERS: PCP Nurse Practitioner Family; Visit Provider Urology
DX: Z00.00 Encounter for general adult medical examination without abnormal findings (principal); Z12.5 Encounter for screening for malignant neoplasm of prostate
CPT/HCPCS: 36415; 80053; 80061; 81001; 84153; 84443; 87086

== ENCOUNTER → 2021-01-23 12:53 | Outpatient (BNVA) | payer OTHER, SELFPAY | PROVIDERS: PCP Nurse Practitioner Family; Visit Provider Internal Medicine ==

== ENCOUNTER → 2021-03-15 13:48 | Outpatient (BNVA) | payer OTHER, SELFPAY | PROVIDERS: PCP Nurse Practitioner Family; Visit Provider Surgery Vascular Surgery | DX: R60.0 Localized edema (principal) | CPT/HCPCS: 99212 ==

== ENCOUNTER → 2021-03-19 09:30 | Outpatient (BNVA) | payer OTHER, SELFPAY | PROVIDERS: PCP Nurse Practitioner Family; Referring Provider Nurse Practitioner Family; Visit Provider Internal Medicine Cardiovascular Disease | DX: R00.0 Tachycardia, unspecified (principal); R06.00 Dyspnea, unspecified; R60.0 Localized edema | CPT/HCPCS: 93005; 99212 ==

== ENCOUNTER → 2021-03-28 08:44 | Outpatient (BNVA) | payer OTHER, SELFPAY | PROVIDERS: PCP Nurse Practitioner Family; Visit Provider Urology | DX: N30.20 Other chronic cystitis without hematuria (principal); N32.0 Bladder-neck obstruction | CPT/HCPCS: 99212 ==

== ENCOUNTER → 2021-04-03 07:03 | Outpatient (REF) | payer OTHER, SELFPAY ==
--- NOTE | 2021-04-03 07:07 | CA_ITS ---
Transthoracic Echocardiogram Patient (Last, First, Middle): Dinh Craven R Gender: Male Date of : 1955 Age: 66 Procedure Date: 04/03/2021 Procedure Type: Transthoracic Echocardiogram Location: OP Height: 193.04 cm Weight: 172.37 kg BSA: 2.91 m2 Heart Rate: bpm BP: 122 / 75 mmHg Reservations Specialist: ASHLEY Referring MD: Dejan King MD Strategic Marketing Manager: Dejan King MD Symptoms: R06.00 - Dyspnea, unspecified Study Quality: Technically Difficult/contrast Conclusions: - Normal left ventricular size, thickness, systolic function, and wall motion. The visually estimated ejection fraction is between 65-70%. - Normal right ventricular cavity size and systolic function. - No significant valvular or pericardial pathology. Findings Procedure Information Contrast agent, definity, is being given per protocol without apparent complications. Left Ventricle Normal left ventricular size, thickness, systolic function, and wall motion. The visually estimated ejection fraction is between 65-70%. There is no evidence of regional wall motion abnormalities. Diastolic function is indeterminate on the basis of available data. Right Ventricle Normal right ventricular cavity size and systolic function. Atria Both atria are normal in size. Aortic Valve There is a normal trileaflet aortic valve. There is no aortic valve stenosis. There is no aortic valve regurgitation. Mitral Valve Normal mitral valve structure and function. There is trace mitral valve regurgitation. There is no mitral valve stenosis. Pulmonic Valve The pulmonic valve is likely normal. Tricuspid Valve Normal tricuspid valve structure and function. There is trace tricuspid valve regurgitation. Significantly elevated right atrial pressure. There is no evidence of pulmonary hypertension. Great Vessels The pulmonary artery was not well visualized. There is mild dilatation of the ascending aorta measuring 3.50 cm. Venous The inferior vena cava is dilated and collapses less than 50% with inspiration. Pericardium/Pleural There is no evidence of pericardial effusion. Prior Study Comparison No significant change compared to prior study dated: 02/11/2018. Measurements 2D Linear Measurements IVSd: 1.04 0.6-0.9/0.6-1.0 cm LVIDd: 5.10 3.9-5.3/4.2-5.9 cm LVIDd Index: 1.75 2.4-3.2/2.2-3.1 cm/m2 LVIDs: 4.34 2.0-3.6 cm LVPWd: 1.03 0.7-1.1 cm Ao Root: 3.80 2.1-3.5 cm LA Diam: 4.30 2.7-3.8/3.0-4.0 cm LAIDs Index: 1.48 1.5-2.3 cm/m2 LV Mass: 245.39 67-162/88-224 g LV Mass Index: 84.33 43-95/49-115 g/m2 LVOT Diam: 2.10 3.0+(-)1.3 cm Mitral Valve MV Pk E: 0.99 MV Decel Time: 191.00 E'Lateral: 14.40 E'Medial: 11.00 E/E' Med: 9.00 E/E' Lat: 6.90 PHT: 56.00 MVA PHT: 3.93 Decel [place]: 5.17 Aortic Valve AoV Pk Usman: 1.63 AoV Mn Usman: 1.20 AoV VTI: 0.26 AoV Pk Grad: 11.00 Aov Mn Grad: 6.00 NICKOLAS Cont.VTI: 3.18 LVOT LVOT Pk Usman: 1.41 LVOT Mn Usman: 1.05 LVOT VTI: 0.24 LVOT Pk Grad: 8.00 LVOT Mn Grad: 5.00 LVOT Diam: 2.10 LVOT Area: 3.46 Diastolic Function MV Pk E: 0.99 E'Medial: 11.00 E/E' Med: 9.00 E' Laterial: 14.40 E/E' Lat: 6.90 Right Ventricle TAPSE (mm): 22.00 TVS' Usman: 14.00 Tricuspid Valve TR Pk Usman: 2.24 TR Pk Grad: 20.00 RA Press: 15.00 RVSP: 35.00 Great Vessels Aorta Ao Root-2D: 3.80 2.0-3.7 cm Ao Asc: 3.50 2.1-3.4 cm Ao Arch: 3.00 Updated in Other Vendor System with Status of Final Dejan King MD electronically signed on 04/05/2021 12:14:09 PM with status of Final
== END ==
LOC: HO.CARD 07:03
PROVIDERS: PCP Nurse Practitioner Family; Visit Provider Internal Medicine Cardiovascular Disease
DX: R06.00 Dyspnea, unspecified (principal)
CPT/HCPCS: 93306; Q9957

== ENCOUNTER 2021-04-10 13:39 | Outpatient (REF) | payer OTHER, SELFPAY ==
--- NOTE | 2021-04-10 17:28 | PFT_ITS ---
INDICATION: Dyspnea. SPIROMETRY: The FEV1 to FVC of 58% with an FEV1 of 2.53 L, which is 59% predicted and an FVC of 4.35 L, which is 76% predicted. No significant response to bronchodilators noted. Significant small airways disease noted. Maximum voluntary ventilation 61% predicted. LUNG VOLUMES: Total lung capacity 68% predicted with an expiratory reserve volume of 111% predicted. DIFFUSION CAPACITY: DLCO 35% predicted. COMPARISONS: None. INTERPRETATION: The patient has a mixed moderate obstructive restrictive ventilatory defect. He does have underlying moderate COPD. No significant response to bronchodilators noted. Significant small airways disease. Moderate decrease in maximum voluntary ventilation secondary to deconditioning, although also has a moderate restrictive ventilatory defect likely secondary to underlying interstitial lung disease. In addition to that, there is a severe diffusion impairment. Clinical correlation warranted. MD OCTAVIA Brunner/MODL / [id number]
== END 2021-04-10 13:40 | disposition home or self-care (01) ==
LOC: HO.RESP 13:39
PROVIDERS: PCP Nurse Practitioner Family; Visit Provider Internal Medicine
DX: U07.1 COVID-19 (principal); J12.82 Pneumonia due to coronavirus disease 2019; J44.9 Chronic obstructive pulmonary disease, unspecified; J96.01 Acute respiratory failure with hypoxia; E66.01 Morbid (severe) obesity due to excess calories
CPT/HCPCS: 94060; 94727; 94729; 99212

== ENCOUNTER → 2021-04-25 14:36 | Outpatient (BNVA) | payer OTHER, SELFPAY | PROVIDERS: PCP Nurse Practitioner Family; Referring Provider Nurse Practitioner Family; Visit Provider Internal Medicine Cardiovascular Disease | DX: R00.0 Tachycardia, unspecified (principal); R60.0 Localized edema; R06.00 Dyspnea, unspecified | CPT/HCPCS: 99212 ==

== ENCOUNTER → 2021-05-29 08:41 | Outpatient (BNVA) | payer OTHER, SELFPAY | PROVIDERS: PCP Nurse Practitioner Family; Visit Provider Internal Medicine | DX: G47.33 Obstructive sleep apnea (adult) (pediatric) (principal); J44.9 Chronic obstructive pulmonary disease, unspecified; J98.4 Other disorders of lung; J96.91 Respiratory failure, unspecified with hypoxia; E66.01 Morbid (severe) obesity due to excess calories; Z68.42 Body mass index [BMI] 45.0-49.9, adult; Z86.16 Personal history of COVID-19; Z99.81 Dependence on supplemental oxygen; Z99.89 Dependence on other enabling machines and devices | CPT/HCPCS: 99212 ==

== ENCOUNTER 2021-06-14 08:50 | Outpatient (REF) | payer OTHER, SELFPAY ==
--- NOTE | ~2021-06-14 | XR_ITS ---
EXAMINATION: XR KNEE, LEFT XR ANKLE, LEFT XR FOOT, LEFT CLINICAL INFORMATION: Left lower leg pain. COMPARISON: Left foot 07/16/2016. TECHNIQUE: AP and lateral views of the left knee. 3 views of the left ankle. 3 views of the left foot. FINDINGS: Left Knee: The total knee arthroplasty components are in the usual position and alignment without evidence of loosening or fracture. There is a small joint effusion. Left Ankle and Foot: Diffuse soft tissue swelling. No fracture. The ankle mortise is preserved. Prominent heel spur. Degenerative spurring/enthesopathy of the medial navicular at the PTT insertion. 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 This is similar to the previous study. XR/XR ankle LT 2V IMPRESSION: Standard appearance of the left total knee arthroplasty. Small joint effusion. Degenerative findings of the left ankle and foot with no acute osseous abnormality. No significant joint effusion.
--- NOTE | ~2021-06-14 | XR_ITS ---
EXAMINATION: XR KNEE, LEFT XR ANKLE, LEFT XR FOOT, LEFT CLINICAL INFORMATION: Left lower leg pain. COMPARISON: Left foot 07/16/2016. TECHNIQUE: AP and lateral views of the left knee. 3 views of the left ankle. 3 views of the left foot. FINDINGS: Left Knee: The total knee arthroplasty components are in the usual position and alignment without evidence of loosening or fracture. There is a small joint effusion. Left Ankle and Foot: Diffuse soft tissue swelling. No fracture. The ankle mortise is preserved. Prominent heel spur. Degenerative spurring/enthesopathy of the medial navicular at the PTT insertion. 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 This is similar to the previous study. XR/XR knee LT 2V IMPRESSION: Standard appearance of the left total knee arthroplasty. Small joint effusion. Degenerative findings of the left ankle and foot with no acute osseous abnormality. No significant joint effusion.
--- NOTE | ~2021-06-14 | XR_ITS ---
EXAMINATION: XR KNEE, LEFT XR ANKLE, LEFT XR FOOT, LEFT CLINICAL INFORMATION: Left lower leg pain. COMPARISON: Left foot 07/16/2016. TECHNIQUE: AP and lateral views of the left knee. 3 views of the left ankle. 3 views of the left foot. FINDINGS: Left Knee: The total knee arthroplasty components are in the usual position and alignment without evidence of loosening or fracture. There is a small joint effusion. Left Ankle and Foot: Diffuse soft tissue swelling. No fracture. The ankle mortise is preserved. Prominent heel spur. Degenerative spurring/enthesopathy of the medial navicular at the PTT insertion. 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 This is similar to the previous study. XR/XR foot LT 2V IMPRESSION: Standard appearance of the left total knee arthroplasty. Small joint effusion. Degenerative findings of the left ankle and foot with no acute osseous abnormality. No significant joint effusion.
== END 2021-06-14 08:51 | disposition home or self-care (01) ==
LOC: HO.HMGCX 08:50
PROVIDERS: PCP Nurse Practitioner Family; Visit Provider Nurse Practitioner Family
DX: M79.672 Pain in left foot (principal); M25.562 Pain in left knee; M25.572 Pain in left ankle and joints of left foot
CPT/HCPCS: 73560; 73600; 73620

== ENCOUNTER 2021-06-30 07:54 | Outpatient (REF) | payer OTHER, SELFPAY ==
[2021-06-30 11:07] LABS: MANUAL DIFF FLAG NO
[2021-06-30 11:16] LABS: Basophils Percent Auto 0.5 % (0-2); Eosinophils Absolute Auto 0.3 X10*3/uL (0.0-0.4); Eosinophils Percent Auto 3.9 % (0-4); Hematocrit 43.9 % (42.0-52.0); Hemoglobin 14.3 g/dl (14.0-18.0); Imm Gran Abs Auto 0.01 X10*3/uL (0.00-0.03); Imm Gran Pct Auto 0.1 % (0.0-0.4); Lymphocytes Absolute Auto 2.8 X10*3/uL (1.2-4.9); Lymphocytes Percent Auto 36.5 % (20-40); Mean Corpuscular HGB Conc 32.6 g/dl (31.0-36.0); Mean Corpuscular Hemoglobin 31.4 pg (27.0-33.0); Mean Corpuscular Volume 96.3 fL (80.0-98.0); Mean Platelet Volume 11.4 fL (9.4-12.4); Monocytes Absolute Auto 0.8 X10*3/uL (0.1-1.2); Monocytes Percent Auto 10.1 % (2-11); Neutrophils Absolute Auto 3.7 x10*3/uL (2.0-8.3); Neutrophils Percent Auto 48.9 % (45-73); Platelet Count 272 X10*3/uL (160-400); Red Blood Count 4.56 X10*6/uL (4.60-5.80); White Blood Count 7.6 X10*3/uL (4.8-10.8)
[2021-06-30 11:28] LABS: Appearance Urine CLEAR; Color Urine YELLOW; Glucose Urine UA NEG (NEG); Leukocyte Esterase Urine NEG (NEG); Nitrite Urine NEG (NEG); PH 6.5 (5.0-8.0); Specific Gravity - Urine 1.025 (1.005-1.025); UACC Culture Trigger NO; Urine Blood 2+ (NEG); Urine Ketones NEG (NEG); Urine Protein TRACE MG/DL (NEG-TRACE)
[2021-06-30 11:35] LABS: Alanine Aminotransferase 31 U/L (0-40); Albumin Level 3.6 g/dL (3.5-5.0); Alkaline Phosphatase 137 U/L (39-117); Anion Gap 13 (12-20); Aspartate Amino Transferase 25 U/L (5-37); Bilirubin Total 1.3 mg/dL (0.0-1.0); Blood Urea Nitrogen 22 mg/dL (9-16); Calcium 9.4 mg/dL (8.4-10.2); Carbon Dioxide 25 mmol/L (22-29); Chloride 107 mmol/L (96-108); Cholesterol 103 mg/dL; Estimated Glomerular Filt Rate > 60; Glucose Fasting 104 mg/dL (60-99); HDL Cholesterol 37 mg/dL; LDL Cholesterol Calculated 55 mg/dl; Potassium 4.4 mmol/L (3.3-5.1); Sodium 141 mmol/L (135-145); Total Protein 6.6 g/dL (6.5-8.0); Triglycerides 55 mg/dL
[2021-06-30 11:46] LABS: TSH reflex Free T4 < 0.01 uIU/mL (0.32-4.0)
[2021-06-30 11:58] LABS: Mucus Urine 2+ /LPF; Squamous Epithelial Cell Urine TRACE /LPF
[2021-06-30 12:58] LABS: Free T4 (Free Thyroxine) 2.47 ng/dL (0.71-1.85)
== END 2021-06-30 07:55 | disposition home or self-care (01) ==
LOC: HO.HMGCLDS 07:54
PROVIDERS: Visit Provider Nurse Practitioner Family
DX: J44.9 Chronic obstructive pulmonary disease, unspecified (principal)
CPT/HCPCS: 36415; 80053; 80061; 81001; 84439; 84443; 85025

== ENCOUNTER 2021-07-11 14:39 | Outpatient (RCR) | payer OTHER, SELFPAY ==
--- NOTE | 2021-07-11 16:05 | MHC.PT.EP ---
[facility] [place] Office [place] Office [place] Office [address] [phone] F: [phone] F: [phone] F: [phone] F: [phone] Physical Therapy Plan of Care Date of Evaluation: Date of Surgery: n/a Diagnosis: pain in L ankle Assessment: Patient is a 66 year old male presenting to PT with complaints of pain in his L ankle. Pt reports onset of pain began about 2 years ago due to insidious onset. He presents today with impairments in pain, gait mechanics, functional strength, ttp. Pt's current occupation is none since covid diagnosis in May 2020, with baseline physical activities including ambulation, standing, stair negotiation, ADLs. Pt expresses chcf goal of reducing pain, and is motivated to work towards this in PT. Clinical presentation today is most consistent with signs and sx associated with possible ankle arthritis and plantar fasciitis and pt will benefit from skilled PT to address the following problems and impairments noted upon evaluation: pain, gait mechanics, functional strength, ttp. These problems limit the patient with the following functional activities: ambulation, stair negotiation, standing, ADLs. The prescribed treatment plan of care is medically necessary. Co-morbidities of respiratory failure with hypoxia on 2L o2, lymphadema were identified and taken into considerations of plan of care. Pt was educated on HEP, role of PT, prognosis, POC. Frequency and Duration: The patient will be seen 2 x week x 4 weeks Short Term Goals: Pt will demonstrate ankle AROM in available range with min to no pain in 2 weeks. Pt will demonstrate min to no tenderness to palpation to calcaneous in 2 weeks. Intermediate Goals: Pt will demonstrate improved LEFI score by 9 points in 4 weeks for improved functional mobility. Pt will demonstrate ability to ambulate with minimal pain in 4 weeks for improved community ambulation and tolerance to ADLs. Pt will demonstrate ability to negotiate stairs with min to no pain in 4 weeks for improved access to his home. Treatment Plan: Modalities to reduce pain, spasms and effusion. Manual therapy to restore motion and function. Therapeutic exercise to improve strength and flexibility. Neuromuscular re-education for posture and balance. Therapeutic activities to return to functional activities of daily living. Electronically signed by: Charisma Kolb, PT, DPT, ATC Please sign and return to therapist. Thank you for your referral.
--- NOTE | 2021-08-14 08:51 | MHC.PT.DC ---
[facility] [place] Office [place] Office [place] Office [address] [phone] F: [phone] F: [phone] F: [phone] F: [phone] Physical Therapy Discharge Report Diagnosis: pain in L ankle Date of Surgery: n/a Date of Evaluation: 07/11/21 Date of Discharge: 08/14/21 Treatments to Date: 1 Cancellations to Date: 6 No Shows to Date: 0 Discharge Status: Patient Elected to Stop Discharge Summary: Pt called stating he would like to finish OT before continuing with PT. Chart left open for 30 days and pt has not reached out to be scheduled. Pt status unknown at this time. Electronically signed by: Charisma Kolb, PT, DPT, ATC Please sign and return to therapist. Thank you for your referral.
== END 2021-08-14 08:51 | disposition home or self-care (01) ==
LOC: HO.PTCHIC 14:39
PROVIDERS: PCP Nurse Practitioner Family; Visit Provider Nurse Practitioner Family
DX: M25.562 Pain in left knee (principal); M25.572 Pain in left ankle and joints of left foot
CPT/HCPCS: 97110; 97162

== ENCOUNTER 2021-07-27 13:56 | Outpatient (REF) | payer OTHER, SELFPAY ==
--- NOTE | ~2021-07-27 | US_ITS ---
EXAMINATION: US THYROID CLINICAL INFORMATION: Low TSH. COMPARISON: None TECHNIQUE: Linear transducer grayscale and color Doppler examination with attention to the region of the thyroid. FINDINGS: SIZE: Measurements of the thyroid lobes and nodules are given in sagittal, anteroposterior and transverse dimensions respectively. Right Thyroid Lobe: 5.0 x 2.5 x 2.0 cm, volume 12.8 mL. Parenchyma: The gland echotexture is heterogeneous. Thyroid vascularity is normal. Left Thyroid Lobe: 4.4 x 2.6 x 2.5 cm, volume 14.7 mL. Parenchyma: The gland echotexture is heterogeneous. Thyroid vascularity is normal. Isthmus: 0.41 cm in maximum AP dimension. No focal thyroid nodule is seen. NODES: No lymphadenopathy is seen in the tissue surrounding the thyroid gland. US/US thyroid IMPRESSION: Enlarged heterogeneous thyroid gland. No nodules seen.
[2021-07-27 17:08] LABS: Alanine Aminotransferase 40 U/L (0-40); Albumin Level 3.7 g/dL (3.5-5.0); Alkaline Phosphatase 140 U/L (39-117); Aspartate Amino Transferase 29 U/L (5-37); Bilirubin Direct 0.9 mg/dL (0.0-0.5); Bilirubin Total 1.6 mg/dL (0.0-1.0); Gamma Glutamyl Transpeptidase 93 U/L (11-51); Total Protein 6.9 g/dL (6.5-8.0)
== END 2021-07-27 13:57 | disposition home or self-care (01) ==
LOC: HO.HMGCX 13:56
PROVIDERS: PCP Nurse Practitioner Family; Visit Provider Nurse Practitioner Family
DX: R74.8 Abnormal levels of other serum enzymes (principal); R79.89 Other specified abnormal findings of blood chemistry
CPT/HCPCS: 36415; 76536; 80076; 82977

== ENCOUNTER → 2021-08-01 09:16 | Outpatient (BNVA) | payer OTHER, SELFPAY | PROVIDERS: PCP Nurse Practitioner Family; Visit Provider Internal Medicine | DX: J44.9 Chronic obstructive pulmonary disease, unspecified (principal) | CPT/HCPCS: 94618; 99211 ==

== ENCOUNTER 2021-08-07 12:48 | Outpatient (REF) | payer OTHER, SELFPAY ==
[2021-08-07 15:16] LABS: Free T4 (Free Thyroxine) 2.36 ng/dL (0.71-1.85); Thyroid Stimulating Hormone < 0.01 uIU/mL (0.32-4.0)
[2021-08-09 07:12] LABS: Triiodothyronine T3 Free 10.5 pg/mL (2.3-4.2)
[2021-08-14 15:52] LABS: Thyroid Stimulating Immunoglob 290 % baseline (<140)
== END 2021-08-07 12:49 | disposition home or self-care (01) ==
LOC: HO.LAB 12:48
PROVIDERS: PCP Nurse Practitioner Family; Visit Provider Internal Medicine Endocrinology, Diabetes & Metabolism
DX: R79.89 Other specified abnormal findings of blood chemistry (principal)
CPT/HCPCS: 36415; 84439; 84443; 84445; 84481; 99202

== ENCOUNTER → 2021-08-21 09:22 | Outpatient (BNVA) | payer OTHER, SELFPAY | PROVIDERS: PCP Nurse Practitioner Family; Visit Provider Internal Medicine | DX: J44.9 Chronic obstructive pulmonary disease, unspecified (principal); J96.91 Respiratory failure, unspecified with hypoxia; G47.33 Obstructive sleep apnea (adult) (pediatric); J98.4 Other disorders of lung; Z79.899 Other long term (current) drug therapy; Z99.89 Dependence on other enabling machines and devices | CPT/HCPCS: 99212 ==

== ENCOUNTER 2021-09-13 11:46 | Outpatient (REF) | payer OTHER, SELFPAY ==
[2021-09-13 13:53] LABS: Hemoglobin 15.4 g/dl (14.0-18.0); Mean Corpuscular HGB Conc 32.8 g/dl (31.0-36.0); Mean Corpuscular Hemoglobin 32.1 pg (27.0-33.0); Mean Corpuscular Volume 97.9 fL (80.0-98.0); Mean Platelet Volume 10.6 fL (9.4-12.4); Platelet Count 293 X10*3/uL (160-400); Red Cell Distribution Width 14.9 % (11.0-16.0); White Blood Count 8.4 X10*3/uL (4.8-10.8)
[2021-09-13 14:04] LABS: Alanine Aminotransferase 26 U/L (0-40); Albumin Level 3.7 g/dL (3.5-5.0); Alkaline Phosphatase 157 U/L (39-117); Aspartate Amino Transferase 26 U/L (5-37); Bilirubin Direct 0.6 mg/dL (0.0-0.5); Bilirubin Total 1.1 mg/dL (0.0-1.0); Total Protein 6.8 g/dL (6.5-8.0)
[2021-09-13 14:25] LABS: Thyroid Stimulating Hormone < 0.01 uIU/mL (0.32-4.0)
[2021-09-15 01:03] LABS: Triiodothyronine T3 Free 2.6 pg/mL (2.3-4.2)
== END 2021-09-13 11:47 | disposition home or self-care (01) ==
LOC: HO.HMGCLDS 11:46
PROVIDERS: PCP Nurse Practitioner Family; Visit Provider Internal Medicine Endocrinology, Diabetes & Metabolism
DX: R79.89 Other specified abnormal findings of blood chemistry (principal)
CPT/HCPCS: 36415; 80076; 84439; 84443; 84481; 85027

== ENCOUNTER → 2021-09-19 15:23 | Outpatient (BNVA) | payer OTHER, SELFPAY | PROVIDERS: PCP Nurse Practitioner Family; Visit Provider Anesthesiology | DX: M79.18 Myalgia, other site (principal); E66.01 Morbid (severe) obesity due to excess calories | CPT/HCPCS: 20552; 99202; J2795; J3300 ==

== ENCOUNTER 2021-09-20 10:36 | Outpatient (REF) | payer OTHER, SELFPAY ==
[2021-09-20 12:04] LABS: Gamma Glutamyl Transpeptidase 112 U/L (11-51)
[2021-09-20 12:23] LABS: Ferritin 51 ng/mL (20-250); HBc Num1 0.07 S/CO (0.00-0.79); HBsAGNum1 0.24 S/CO (0.00-0.99); HIV AB/AG Nonreactive (Nonreactive); HIV Num 1 0.07 S/CO (0.00-0.99); Hepatitis B Core Antibody Nonreactive (Nonreactive); Hepatitis B Surface Antigen Negative (Negative); TSH reflex Free T4 0.03 uIU/mL (0.32-4.0); ~Hepatitis B Surface Antibody NONREACTIVE (Nonreactive); ~Hepatitis C Antibody Reactive (Nonreactive)
[2021-09-20 12:40] LABS: Appearance Urine CLEAR; Color Urine YELLOW; Glucose Urine UA NEG (NEG); Leukocyte Esterase Urine NEG (NEG); Nitrite Urine NEG (NEG); Specific Gravity - Urine 1.015 (1.005-1.025); UACC Culture Trigger NO; Urine Blood TRACE (NEG); Urine Ketones NEG (NEG); Urine Protein NEG (NEG-TRACE)
[2021-09-20 12:58] LABS: Free T4 (Free Thyroxine) 0.69 ng/dL (0.71-1.85)
[2021-09-21 08:19] LABS: Hepatitis A Antibody IgM 0.09 Index (0-0.79); ~Hepatitis A Antibody IgM Nonreactive (Nonreactive)
[2021-09-22 21:07] LABS: Triiodothyronine T3 Free 1.9 pg/mL (2.3-4.2)
[2021-09-24 13:57] LABS: Alpha Fetoprotein 2.5 ng/mL (<6.1)
[2021-09-24 14:53] LABS: Anti Nuclear Antibody Screen NEGATIVE (NEGATIVE)
[2021-09-24 18:32] LABS: EBV-VCA IgG Ab >750.00 U/mL; EBV-VCA IgM Ab <36.00 U/mL
[2021-09-24 21:42] LABS: Thyroid Peroxidase Antibodies 1 IU/mL (<9)
[2021-09-26 14:22] LABS: Thyrotropin Receptor Antibody 9.54 IU/L (<=2.00)
[2021-09-26 16:07] LABS: Mitochondrial Antibodies NEGATIVE (NEGATIVE)
[2021-09-26 23:47] LABS: Smooth Muscle Antibody <20 U (<20)
== END 2021-09-20 10:37 | disposition home or self-care (01) ==
LOC: HO.LAB 10:36
PROVIDERS: PCP Nurse Practitioner Family; Visit Provider Nurse Practitioner
DX: Z11.4 Encounter for screening for human immunodeficiency virus [HIV] (principal); R17 Unspecified jaundice; R74.8 Abnormal levels of other serum enzymes; R79.89 Other specified abnormal findings of blood chemistry; R76.8 Other specified abnormal immunological findings in serum
CPT/HCPCS: 36415; 81001; 82105; 82728; 82977; 83520; 84439; 84443; 84481; 86015; 86038; 86039; 86255; 86256; 86376; 86664; 86665; 86704; 86706; 86709; 86803; 87340; 87389; 99202

== ENCOUNTER 2021-09-24 08:00 | Outpatient (RCR) | payer OTHER, SELFPAY ==
--- NOTE | 2021-07-05 14:27 | MHC.OT.OLE ---
[address] [phone] F: [phone] Occupational Therapy Lymphedema Evaluation Diagnosis: Lower extremity lymphedema Date of Onset: 12/18/20 Attending Provider: Liam Negron MD Prescribed Treatment: Eval and marley STAPLES Follow Up Appointment: History of Current Condition: Pt reports worsening lower extremity during treatment for Covid 19 with complicated medical history including morbid obesity, Left TKA, left foot and ankle OA , venous insufficiency , venous stasis dermatitis Doppler US 09/04/20 of bilateral lower extremities shows no sign of DVT He reports current lower leg skin blisters and skin weeping Reports taking diuretics Significant Medical History: Bladder outlet obstruction Chronic cystitis COPD (chronic obstructive pulmonary disease) COPD (chronic obstructive pulmonary disease) COPD (chronic obstructive pulmonary disease) COVID-19 MATUTE (dyspnea on exertion) History of diverticulitis History of umbilical hernia Injury of right rotator cuff Morbid obesity JEFFRY (obstructive sleep apnea) JEFFRY on CPAP Respiratory failure with hypoxia Restless leg syndrome Restrictive lung disease Sensory neuropathy Traumatic complete tear of right rotator cuff Precautions/Contraindications: Pulmonary, cardiac Patient Goals: Improve leg swelling and skin healing Hand Dominance: Right Observations: Pt wearing low compression knee high Outcome Measures: LEFI 46/80 Prior Level of Function and Occupation Living Situation: Family and/or Social Report: and cats home Self-Usp Support: Pt reports indep in all areas with little difficulty 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 No difficulty with light homemaking. He reports inc difficulty with standing due to leg pain and unable to run, ..Difficulty with donning compression knee highs with skin integrity.. wound care Employment Status: Retired due to complications from Covid Leisure Activites/Hobbies: Sedentary.. Reports no change Driving: WNL Sleeping: CPAP Vision: WFL Balance: WFL Pain Assessment Pain Score: 4 Pain Scale Used: Numeric (0 - 10) Pain Location and Description: Right knee, LE occassional Left ankle Aggravating Factors: Alleviating Factors: Skin and Soft Tissue Assessment Skin and Soft Tissue: Hair Growth Swelling Other Comments: Bilateral LE varicose veins.. 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 Patient verbalizes Barriers to Learning: None Readiness for Learning: Accepting Who was educated? Patient Comments: Plan of Care Assessment: Pt is a 66 yo male with worsening lower extremity edema with a complicated medical history including morbid obesity, venous insufficiency ,varicose veins, left TKA, left ankle and right knee OA as well as COPD requiring supplemental 02 due to Covid 19. Today he presents with bilateral lower extremity lymphedema. His right lower leg presents with lymph blisters and a large 2 diameter broken blister with light weeping. He has been conscientious with skin care, and wearing low compression knee highs he has purchased online. This patient is at a high risk of infection and risk of sepsis. He will benefit from participating in a CDT program including bandaging, MLD, and decongestion exercises STG Duration: 2 wks Short Term Goals: Patient will understand lymphedema precautions to decrease the risk of infection and exacerbation of the lymphedema Patient will tolerate wearing multi-layer short stretch bandages between treatment sessions for facilitate limb decongestion Patient will decrease right leg edema by greater than 10 cm to improve tissue health and decrease risk of infection Patient with perform HEP with mimimal assistance to help improve lymphatic flow and venous return LTG Duration: 4 wks 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 Operator Goals: Patient will be independent in compression bandaging for continued volume reduction and prevention of re-accumulation of edema fluid Patient will be independent in donning and doffing of compression garments with will enable regular daily garment wear Patient will be independent with HEP and lymphedema management to eda; prevent edema relapse and riduce risk of infection Frequency and Duration: The patient will be seen 3x wk x 4 wks Treatment Plan: Home Exercise Program Patient Education Edema Control Treatment Plan Comments: Pt to schedule around appointments with Pulmonary Rehab Lymphedema Treatment Plan: Compression Bandaging Exercise: Stretching, strengthening, manual therapy Manual Lymphatic Drainage Referral for compression garment and instructions for donning/doffing Self Care Training: bandaging, skin care, self massage Skin Care Education Wound Care Needs Lymphedema Treatment Plan Comments: Recommend a Rx for Farrow Wrap compression 30-40 mmHg from foot to upper thigh for ease in self management in volume reduction Electronically Signed By: Liane Harris OT CHT CLT Reviewed/agree with student documentation: N/A Therapist: Please sign and return to therapist, thank you for your referral.
--- NOTE | 2021-11-08 11:22 | MHC.OT.DC ---
[address] [phone] F: [phone] Occupational Therapy Discharge Note Provider: Liam Negron MD Diagnosis: Lower extremity lymphedema Date of Surgery: Date of Evaluation: Date of Discharge: Treatments to Date: 7 Cancellations to Date: No Shows to Date: Discharge Status: Discharge Summary: Pt has been able to demo good technique with ther ex, skin care and compression leg wraps. WFL with self massage, limited by body habitus. Pt limiting treatment to 1x wk Pt will benefit from a sequential pneumatic compression device for independence in self management Electronically Signed By: Liane Harris OT CHT CLT Reviewed/agree with student documentation: N/A Therapist: Please Sign and return to therapist, thank you for your referral.
== END 2021-11-08 11:23 | disposition home or self-care (01) ==
LOC: HO.OT 08:00
PROVIDERS: Visit Provider Surgery Vascular Surgery
DX: Q82.0 Hereditary lymphedema (principal)
CPT/HCPCS: 97110; 97140

== ENCOUNTER 2021-09-25 08:47 | Outpatient (REF) | payer OTHER, SELFPAY ==
[2021-09-25 11:28] LABS: Appearance Urine CLEAR; Color Urine YELLOW; Glucose Urine UA NEG (NEG); Leukocyte Esterase Urine NEG (NEG); Nitrite Urine NEG (NEG); Urine Blood 1+ (NEG); Urine Ketones NEG (NEG); Urine Protein NEG (NEG-TRACE)
[2021-09-28 12:55] LABS: HCV RNA PCR Qn <1.18 NOT DETECTED Log IU/mL (NOT DETECTED); HCV RNA PCR Qn <15 NOT DETECTED IU/mL (NOT DETECTED)
== END 2021-09-25 08:48 | disposition home or self-care (01) ==
LOC: HO.HMGCLDS 08:47
PROVIDERS: Urology; Absent Provider Nurse Practitioner; PCP Nurse Practitioner Family; Visit Provider Nurse Practitioner Family
DX: R76.8 Other specified abnormal immunological findings in serum (principal); J44.9 Chronic obstructive pulmonary disease, unspecified; N30.20 Other chronic cystitis without hematuria
CPT/HCPCS: 36415; 81001; 87902

== ENCOUNTER 2021-10-12 09:46 | Outpatient (REF) | payer OTHER, SELFPAY ==
--- NOTE | ~2021-10-12 | US_ITS ---
EXAMINATION: US ABDOMEN COMPLETE CLINICAL INFORMATION: Elevated LFTs. Hepatitis C. COMPARISON: CT abdomen and pelvis 06/01/2020. TECHNIQUE: Real-time imaging of the abdominal viscera. Technically limited study secondary to body habitus. FINDINGS: PANCREAS: Not well visualized due to bowel gas. ABDOMINAL AORTA: Not well visualized due to bowel gas. INFERIOR VENA CAVA: Not well visualized due to bowel gas. LIVER: Liver echotexture is slightly increased. No focal liver lesion is seen. Liver is normal in size and contour. GALLBLADDER: The gallbladder is normal in size. There are gallstones. The gallbladder wall is thickened measuring 0.7 cm. COMMON BILE DUCT: Normal in caliber measuring 0.3 cm in diameter. RIGHT KIDNEY: There is a 1.7 cm cyst in the lower pole. No hydronephrosis or renal calculi. The kidney measures 13.0 cm in maximum dimension. LEFT KIDNEY: There is a 1.1 cyst with wall calcification or milk of calcium in the lower pole. No hydronephrosis or renal calculi. The kidney measures 15.0 cm in maximum dimension. SPLEEN: Normal. The spleen measures 12.1 cm in maximum dimension. FREE FLUID: None. US/US abdomen complete IMPRESSION: Very limited exam. Echogenic liver probably representing fatty infiltration. Gallstones. Thickened gallbladder wall, question related to liver disease. Nonvisualization of the pancreas, aorta and IVC. Bilateral renal cysts.
== END 2021-10-12 09:47 | disposition home or self-care (01) ==
LOC: HO.HMGCX 09:46
PROVIDERS: PCP Nurse Practitioner Family; Visit Provider Nurse Practitioner
DX: R17 Unspecified jaundice (principal); R79.89 Other specified abnormal findings of blood chemistry; R74.8 Abnormal levels of other serum enzymes
CPT/HCPCS: 76700

== ENCOUNTER → 2021-10-16 11:23 | Outpatient (BNVA) | payer OTHER, SELFPAY | PROVIDERS: PCP Nurse Practitioner Family; Visit Provider Internal Medicine Endocrinology, Diabetes & Metabolism | DX: R79.89 Other specified abnormal findings of blood chemistry (principal) | CPT/HCPCS: 99212 ==

== ENCOUNTER → 2021-10-17 07:44 | Outpatient (REF) | payer OTHER, SELFPAY ==
--- NOTE | ~2021-10-17 | NM_ITS ---
EXAMINATION: BILIARY TRACT IMAGING STUDY WITH CCK CLINICAL INFORMATION: Fundus, gallstones, abnormal levels of other serum enzymes.. COMPARISON: No previous biliary scan is available for comparison. Abdominal ultrasound dated 10/12/[address] scan of the abdomen and pelvis dated 10/01/2020 are available for comparison.. TECHNIQUE: Serial gamma scintillation camera images were obtained over the abdomen for a total observation period of 90 minutes following the intravenous administration of 5.0 mCi Tc-99m Mebrofenin. FINDINGS: There is good concentration of activity in the liver by 5 minutes post injection. Biliary activity is visualized by 20 minutes. The gallbladder is well visualized by 35 minutes. Small bowel is well visualized by 25 minutes. At 60 minutes post radiopharmaceutical injection, a 30-minute infusion of 3.5 micrograms Sincalide was then begun and an additional 30 minutes of images were obtained. No significant gallbladder emptying occurs during the sincalide infusion. The calculated gallbladder ejection fraction is 0% (normal gallbladder ejection fraction is greater than 35%). NM/NM hepatobiliary w pharm IMPRESSION: 1. Visualization of the gallbladder is evidence of a patent cystic duct and strong evidence against the diagnosis of acute cholecystitis. The common bile duct is patent. Liver function appears normal. 2. Poor gallbladder emptying and a low gallbladder ejection fraction are evidence of impaired gallbladder contractility and most likely due to chronic cholecystitis.
== END ==
LOC: HO.NUCMED 07:44
PROVIDERS: Visit Provider Nurse Practitioner
DX: R17 Unspecified jaundice (principal); R74.8 Abnormal levels of other serum enzymes; R79.89 Other specified abnormal findings of blood chemistry
CPT/HCPCS: 78227; A9537; J2805

== ENCOUNTER → 2021-10-30 14:17 | Outpatient (BNVA) | payer OTHER, SELFPAY | PROVIDERS: PCP Nurse Practitioner Family; Visit Provider Surgery Vascular Surgery | DX: I89.0 Lymphedema, not elsewhere classified (principal) | CPT/HCPCS: 99212 ==

== ENCOUNTER → 2021-11-01 14:12 | Outpatient (BNVA) | payer OTHER, SELFPAY | PROVIDERS: PCP Nurse Practitioner Family; Visit Provider Nurse Practitioner | DX: R17 Unspecified jaundice (principal); K59.00 Constipation, unspecified; R76.8 Other specified abnormal immunological findings in serum | CPT/HCPCS: 99212 ==

== ENCOUNTER 2021-11-05 12:55 | Outpatient (REF) | payer OTHER, SELFPAY ==
--- NOTE | ~2021-11-05 | XR_ITS ---
EXAMINATION: XR SHOULDER, LEFT CLINICAL INFORMATION: Sprain of the left shoulder joint COMPARISON: None TECHNIQUE: Three views of the left shoulder. FINDINGS: No acute fracture or dislocation. Minimal glenoid rim marginal osteophyte formation. Glenohumeral joint space appears maintained as does the acromiohumeral interval. No evidence of calcific tendinopathy of the rotator cuff. Minimal subchondral sclerosis at the AC joint and small periarticular bone fragment. Visualized left lung is grossly clear. XR/XR shoulder LT min 2V IMPRESSION: 1. No acute osseous injury. 2. Minimal glenohumeral joint osteoarthritis and minimal acromioclavicular arthropathy.
--- NOTE | ~2021-11-05 | XR_ITS ---
EXAMINATION: XR CHEST CLINICAL INFORMATION: Strain at the shoulder COMPARISON: Chest x-ray 07/20/2020 TECHNIQUE: 2 views of the chest were obtained. FINDINGS: No airspace consolidation, pleural effusion, or pneumothorax. Mild left basilar subsegmental atelectasis or scarring. The cardiomediastinal silhouette is within normal limits. No acute osseous injury. XR/XR chest 2V IMPRESSION: 1. No acute pulmonary process.
== END 2021-11-05 12:56 | disposition home or self-care (01) ==
LOC: HO.HMGCX 12:55
PROVIDERS: PCP Nurse Practitioner Family; Visit Provider Internal Medicine
DX: R07.9 Chest pain, unspecified (principal); S46.912A Strain of unspecified muscle, fascia and tendon at shoulder and upper arm level, left arm, initial encounter; S43.402A Unspecified sprain of left shoulder joint, initial encounter
CPT/HCPCS: 71046; 73030

== ENCOUNTER → 2021-11-27 08:58 | Outpatient (BNVA) | payer OTHER, SELFPAY | PROVIDERS: PCP Nurse Practitioner Family; Visit Provider Internal Medicine | DX: J44.9 Chronic obstructive pulmonary disease, unspecified (principal); J96.01 Acute respiratory failure with hypoxia; U07.1 COVID-19; J12.82 Pneumonia due to coronavirus disease 2019; I89.0 Lymphedema, not elsewhere classified; J98.4 Other disorders of lung; J96.91 Respiratory failure, unspecified with hypoxia; G47.33 Obstructive sleep apnea (adult) (pediatric); E66.01 Morbid (severe) obesity due to excess calories; Z99.89 Dependence on other enabling machines and devices | CPT/HCPCS: 99212 ==

== ENCOUNTER 2021-12-27 08:00 | Outpatient (RCR) | payer OTHER, SELFPAY ==
--- NOTE | 2021-11-08 09:53 | MHC.PT.EP ---
[facility] [place] Office [place] Office [place] Office [address] [phone] F: [phone] F: [phone] F: [phone] F: [phone] Physical Therapy Plan of Care Date of Evaluation: Date of Surgery: Diagnosis: unspecified L shoulder pain Assessment: Pt is a 66 y/o male with COPD on 2L O2 who is referred to PT for unspecified shoulder pain resulting in decreased tolerance for reclining and laying down, placing objects on high shelves, reaching his back and neck for hygiene and dressing as well as disturbed sleep secondary to decreased L shoulder ROM and strength, TTP of L medial scapular border, decreased thoracic / scapular posture, increased scapular tissue tension, and pain. Pt is deemed an appropriate candidate to receive skilled PT services in order to improve his functional ability. Frequency and Duration: The patient will be seen 2 x / wk x 5 wks. Short Term Goals: Initiate HEP. Pt no longer TTP of medial scapular border. Mcfp Goals: I with HEP. Pt will no longer be unable to lay down for restful night's sleep d/t shoulder pain. Improve L shoulder ER MMT to by at least 1/2 MMT grade. Pt will be able to reach high shelves without difficulty. Treatment Plan: Modalities to reduce pain, spasms and effusion. Manual therapy to restore motion and function. Therapeutic exercise to improve strength and flexibility. Neuromuscular re-education for posture and balance. Therapeutic activities to return to functional activities of daily living. Electronically signed by: Gamaliel Kamara PT. Please sign and return to therapist. Thank you for your referral.
--- NOTE | 2022-03-22 10:33 | MHC.PT.DC ---
[facility] [place] Office [place] Office [place] Office [address] [phone] F: [phone] F: [phone] F: [phone] F: [phone] Physical Therapy Discharge Report Diagnosis: unspecified L shoulder pain Date of Surgery: Date of Evaluation: 11/08/21 Date of Discharge: 03/22/22 Treatments to Date: 6 Cancellations to Date: No Shows to Date: Discharge Status: Improved Function Independent with HEP Patient Elected to Stop Discharge Summary: 12/27: Good samuel for activities; progressed program; reports estim feels good after ther ex. 12/20 Pt reports he is encouraged that he is improving; reports improved TTP and agitation of scapular area. 12/13: Pt persists with L scapular/ shoulder pain with shoulder elevation and abduction; he is able to tolerate gentle scapular exercises well with some discomfort though has not progressed much since initial eval at this time. He has physical in 2 weeks with his PCP and is interested in inquiring about an MRI. SA02 95%. no adverse effects; Pt reports some discomfort but not pain with his exercises; Reports his baseline papin did not increase today. Pt admits to performing rogue theraband exercises at home. Encouraged PT to be compliance with HEP as is. Pt would like to continue while awaiting MRI. Electronically signed by: Gamaliel Kamara PT. Please sign and return to therapist. Thank you for your referral.
== END 2022-03-22 10:32 | disposition home or self-care (01) ==
LOC: HO.PTCHIC 08:00
PROVIDERS: PCP Nurse Practitioner Family; Visit Provider Internal Medicine
DX: S43.402A Unspecified sprain of left shoulder joint, initial encounter (principal)
CPT/HCPCS: 97014; 97110; 97140; 97162

== ENCOUNTER 2022-01-08 13:51 | Outpatient (RCR) | payer MEDICARE, OTHER, SELFPAY | END 2022-03-19 14:01 | disposition home or self-care (01) | LOC: HO.WCC 13:51 | PROVIDERS: PCP Nurse Practitioner Family; Visit Provider Physician Assistant | DX: I87.333 Chronic venous hypertension (idiopathic) with ulcer and inflammation of bilateral lower extremity (principal); L97.822 Non-pressure chronic ulcer of other part of left lower leg with fat layer exposed; L97.912 Non-pressure chronic ulcer of unspecified part of right lower leg with fat layer exposed; Q82.0 Hereditary lymphedema; I73.9 Peripheral vascular disease, unspecified; G62.9 Polyneuropathy, unspecified; J44.9 Chronic obstructive pulmonary disease, unspecified; F12.90 Cannabis use, unspecified, uncomplicated; F10.90 Alcohol use, unspecified, uncomplicated; Z87.891 Personal history of nicotine dependence; Z99.81 Dependence on supplemental oxygen; Z86.16 Personal history of COVID-19 | CPT/HCPCS: 11042; 11045; 99212 ==

== ENCOUNTER 2022-01-25 08:23 | Outpatient (REF) | payer MEDICARE, SELFPAY ==
--- NOTE | 2022-01-25 17:41 | PFT_ITS ---
Forced vital capacity 84%, FEV1 63%, FEV1/FVC ratio is 56. [id number] 27% and MVV is 64%. Post bronchodilator therapy, there is a slight improvement in [id number]. Total lung capacity 91%. Residual volume 90%. Diffusion capacity 51%. CONCLUSION: Moderately severe obstructive airway disorder is noted. There is no significant response to bronchodilator therapy. Clinical correlation recommended. MD ELSI Nino/[facility] / [id number]
== END 2022-01-25 08:24 | disposition home or self-care (01) ==
LOC: HO.RESP 08:23
PROVIDERS: PCP Nurse Practitioner Family; Visit Provider Internal Medicine
DX: J44.9 Chronic obstructive pulmonary disease, unspecified (principal); J96.91 Respiratory failure, unspecified with hypoxia; J98.4 Other disorders of lung; J12.82 Pneumonia due to coronavirus disease 2019; U07.1 COVID-19; E66.01 Morbid (severe) obesity due to excess calories
CPT/HCPCS: 94060; 94727; 94729

== ENCOUNTER 2022-03-29 08:33 | Outpatient (REF) | payer MEDICARE, SELFPAY ==
[2022-03-29 16:42] LABS: Urine Cytology See Pathology rpt
== END 2022-03-29 08:34 | disposition home or self-care (01) ==
LOC: HO.LAB 08:33
PROVIDERS: PCP Nurse Practitioner Family; Visit Provider Urology
DX: M75.102 Unspecified rotator cuff tear or rupture of left shoulder, not specified as traumatic (principal); N30.20 Other chronic cystitis without hematuria; R31.29 Other microscopic hematuria; N32.0 Bladder-neck obstruction; Z79.899 Other long term (current) drug therapy
CPT/HCPCS: 20610; 88112; 99202; 99212; J1040

== ENCOUNTER → 2022-04-02 13:42 | Outpatient (BNVA) | payer MEDICARE, SELFPAY | PROVIDERS: PCP Nurse Practitioner Family; Visit Provider Internal Medicine | DX: G47.33 Obstructive sleep apnea (adult) (pediatric) (principal); J44.9 Chronic obstructive pulmonary disease, unspecified; J98.4 Other disorders of lung; J96.91 Respiratory failure, unspecified with hypoxia; E66.01 Morbid (severe) obesity due to excess calories; Z68.42 Body mass index [BMI] 45.0-49.9, adult; Z99.89 Dependence on other enabling machines and devices | CPT/HCPCS: 99212 ==

== ENCOUNTER 2022-04-17 10:23 | Outpatient (REF) | payer MEDICARE, SELFPAY ==
[2022-04-17 10:45] LABS: MANUAL DIFF FLAG NO
[2022-04-17 13:08] LABS: Appearance Urine Clear; Color Urine Yellow; Glucose Urine UA Negative (Negative); Leukocyte Esterase Urine Negative (Negative); Nitrite Urine Negative (Negative); PH 6.5 (5.0-9.0); Specific Gravity - Urine 1.015 (1.005-1.025); Urine Blood Negative (Negative); Urine Ketones Negative (Negative); Urine Protein Negative (Neg-Trace)
[2022-04-17 13:20] LABS: Basophils Absolute Auto 0.1 X10*3/uL (0.0-0.2); Basophils Percent Auto 0.9 % (0-2); Eosinophils Absolute Auto 0.2 X10*3/uL (0.0-0.4); Eosinophils Percent Auto 2.9 % (0-4); Hematocrit 47.9 % (42.0-52.0); Hemoglobin 15.6 g/dl (14.0-18.0); Imm Gran Abs Auto 0.04 X10*3/uL (0.00-0.03); Imm Gran Pct Auto 0.5 % (0.0-0.4); Lymphocytes Absolute Auto 2.2 X10*3/uL (1.2-4.9); Lymphocytes Percent Auto 29.4 % (20-40); Mean Corpuscular HGB Conc 32.6 g/dl (31.0-36.0); Mean Corpuscular Hemoglobin 33.8 pg (27.0-33.0); Mean Corpuscular Volume 103.9 fL (80.0-98.0); Mean Platelet Volume 10.6 fL (9.4-12.4); Monocytes Absolute Auto 0.5 X10*3/uL (0.1-1.2); Neutrophils Absolute Auto 4.6 x10*3/uL (2.0-8.3); Neutrophils Percent Auto 60.3 % (45-73); Platelet Count 221 X10*3/uL (160-400); Red Blood Count 4.61 X10*6/uL (4.60-5.80); Red Cell Distribution Width 13.1 % (11.0-16.0); White Blood Count 7.6 X10*3/uL (4.8-10.8)
[2022-04-17 13:59] LABS: Alanine Aminotransferase 20 U/L (0-40); Albumin Level 3.7 g/dL (3.5-5.0); Alkaline Phosphatase 93 U/L (39-117); Anion Gap 14 (12-20); Aspartate Amino Transferase 23 U/L (5-37); Bilirubin Direct 0.4 mg/dL (0.0-0.5); Bilirubin Total 1.3 mg/dL (0.0-1.0); Blood Urea Nitrogen 19 mg/dL (9-16); Carbon Dioxide 28 mmol/L (22-29); Chloride 103 mmol/L (96-108); Cholesterol 141 mg/dL; Estimated Glomerular Filt Rate > 60; Glucose Fasting 107 mg/dL (60-99); HDL Cholesterol 50 mg/dL; LDL Cholesterol Calculated 77 mg/dl; Potassium 4.7 mmol/L (3.3-5.1); Sodium 140 mmol/L (135-145); Total Protein 6.9 g/dL (6.5-8.0); Triglycerides 73 mg/dL
[2022-04-17 14:14] LABS: Prostate Specific Antigen Scr 1.23 ng/mL (<0.05-4.0); TSH reflex Free T4 6.61 uIU/mL (0.32-4.0)
[2022-04-17 14:15] LABS: Thyroid Stimulating Hormone 7.65 uIU/mL (0.32-4.0)
[2022-04-18 11:28] LABS: Triiodothyronine T3 Free 2.7 pg/mL (2.3-4.2)
== END 2022-04-17 10:24 | disposition home or self-care (01) ==
LOC: HO.LAB 10:23
PROVIDERS: PCP Nurse Practitioner Family; Visit Provider Internal Medicine Endocrinology, Diabetes & Metabolism
DX: Z00.00 Encounter for general adult medical examination without abnormal findings (principal); R79.89 Other specified abnormal findings of blood chemistry; Z12.5 Encounter for screening for malignant neoplasm of prostate; R94.6 Abnormal results of thyroid function studies
CPT/HCPCS: 36415; 80053; 80061; 80076; 81003; 82248; 84153; 84439; 84443; 84481; 85025

== ENCOUNTER 2022-05-06 12:28 | Outpatient (REF) | payer MEDICARE, SELFPAY ==
[2022-05-06 14:05] LABS: MANUAL DIFF FLAG NO
[2022-05-06 14:12] LABS: Basophils Absolute Auto 0.1 X10*3/uL (0.0-0.2); Basophils Percent Auto 1.1 % (0-2); Eosinophils Absolute Auto 0.3 X10*3/uL (0.0-0.4); Eosinophils Percent Auto 3.5 % (0-4); Hematocrit 45.2 % (42.0-52.0); Hemoglobin 15.1 g/dl (14.0-18.0); Imm Gran Abs Auto 0.04 X10*3/uL (0.00-0.03); Imm Gran Pct Auto 0.5 % (0.0-0.4); Lymphocytes Absolute Auto 2.3 X10*3/uL (1.2-4.9); Lymphocytes Percent Auto 30.4 % (20-40); Mean Corpuscular HGB Conc 33.4 g/dl (31.0-36.0); Mean Corpuscular Hemoglobin 34.6 pg (27.0-33.0); Mean Corpuscular Volume 103.7 fL (80.0-98.0); Mean Platelet Volume 10.6 fL (9.4-12.4); Monocytes Absolute Auto 0.7 X10*3/uL (0.1-1.2); Monocytes Percent Auto 9.2 % (2-11); Neutrophils Absolute Auto 4.1 x10*3/uL (2.0-8.3); Neutrophils Percent Auto 55.3 % (45-73); Platelet Count 268 X10*3/uL (160-400); Red Blood Count 4.36 X10*6/uL (4.60-5.80); Red Cell Distribution Width 13.2 % (11.0-16.0); White Blood Count 7.4 X10*3/uL (4.8-10.8)
[2022-05-06 14:49] LABS: Alanine Aminotransferase 17 U/L (0-40); Albumin Level 3.7 g/dL (3.5-5.0); Alkaline Phosphatase 94 U/L (39-117); Anion Gap 14 (12-20); Aspartate Amino Transferase 19 U/L (5-37); Bilirubin Total 1.1 mg/dL (0.0-1.0); Blood Urea Nitrogen 18 mg/dL (9-16); Calcium 8.9 mg/dL (8.4-10.2); Carbon Dioxide 24 mmol/L (22-29); Chloride 106 mmol/L (96-108); Estimated Glomerular Filt Rate > 60; Glucose Random 91 mg/dL (60-115); Potassium 4.3 mmol/L (3.3-5.1); Sodium 140 mmol/L (135-145); Total Protein 6.6 g/dL (6.5-8.0)
== END 2022-05-06 12:29 | disposition home or self-care (01) ==
LOC: HO.HMGCLDS 12:28
PROVIDERS: PCP Nurse Practitioner Family; Visit Provider Nurse Practitioner Family
DX: M79.673 Pain in unspecified foot (principal)
CPT/HCPCS: 36415; 80053; 84550; 85025

== ENCOUNTER 2022-05-14 08:00 | Outpatient (RCR) | payer MEDICARE, SELFPAY | END 2022-06-14 13:47 | disposition home or self-care (01) | LOC: HO.WCC 08:00 | PROVIDERS: PCP Nurse Practitioner Family; Visit Provider Surgery | DX: I87.033 Postthrombotic syndrome with ulcer and inflammation of bilateral lower extremity (principal); L97.812 Non-pressure chronic ulcer of other part of right lower leg with fat layer exposed; L97.822 Non-pressure chronic ulcer of other part of left lower leg with fat layer exposed; L97.319 Non-pressure chronic ulcer of right ankle with unspecified severity; S91.002D Unspecified open wound, left ankle, subsequent encounter; Z79.2 Long term (current) use of antibiotics; Z79.899 Other long term (current) drug therapy | CPT/HCPCS: 11042; 97597; 97598; 99213 ==

== ENCOUNTER → 2022-05-24 09:17 | Outpatient (BNVA) | payer MEDICARE, SELFPAY | PROVIDERS: PCP Nurse Practitioner Family; Visit Provider Urology | DX: N32.0 Bladder-neck obstruction (principal); N30.20 Other chronic cystitis without hematuria | CPT/HCPCS: Q3014 ==

== ENCOUNTER 2022-05-25 10:04 | Outpatient (REF) | payer MEDICARE, SELFPAY ==
[2022-05-25 11:01] LABS: MANUAL DIFF FLAG NO
[2022-05-25 11:03] LABS: Basophils Absolute Auto 0.1 X10*3/uL (0.0-0.2); Basophils Percent Auto 0.8 % (0-2); Eosinophils Absolute Auto 0.3 X10*3/uL (0.0-0.4); Eosinophils Percent Auto 3.5 % (0-4); Hematocrit 44.9 % (42.0-52.0); Hemoglobin 15.2 g/dl (14.0-18.0); Imm Gran Abs Auto 0.03 X10*3/uL (0.00-0.03); Imm Gran Pct Auto 0.4 % (0.0-0.4); Lymphocytes Absolute Auto 1.9 X10*3/uL (1.2-4.9); Lymphocytes Percent Auto 26.3 % (20-40); Mean Corpuscular HGB Conc 33.9 g/dl (31.0-36.0); Mean Corpuscular Hemoglobin 34.9 pg (27.0-33.0); Mean Platelet Volume 10.5 fL (9.4-12.4); Monocytes Absolute Auto 0.7 X10*3/uL (0.1-1.2); Monocytes Percent Auto 8.8 % (2-11); Neutrophils Absolute Auto 4.5 x10*3/uL (2.0-8.3); Neutrophils Percent Auto 60.2 % (45-73); Platelet Count 235 X10*3/uL (160-400); Red Blood Count 4.36 X10*6/uL (4.60-5.80); Red Cell Distribution Width 13.3 % (11.0-16.0); White Blood Count 7.4 X10*3/uL (4.8-10.8)
[2022-05-25 12:34] LABS: Alanine Aminotransferase 17 U/L (0-40); Albumin Level 3.5 g/dL (3.5-5.0); Alkaline Phosphatase 94 U/L (39-117); Aspartate Amino Transferase 20 U/L (5-37); Bilirubin Direct 0.5 mg/dL (0.0-0.5); Bilirubin Total 1.5 mg/dL (0.0-1.0); Total Protein 6.5 g/dL (6.5-8.0)
[2022-05-25 12:48] LABS: Free T4 (Free Thyroxine) 0.86 ng/dL (0.71-1.85); Thyroid Stimulating Hormone 2.24 uIU/mL (0.32-4.0)
[2022-05-26 20:08] LABS: Triiodothyronine T3 Free 2.9 pg/mL (2.3-4.2)
== END 2022-05-25 10:05 | disposition home or self-care (01) ==
LOC: HO.HMGCLDS 10:04
PROVIDERS: PCP Nurse Practitioner Family; Visit Provider Internal Medicine Endocrinology, Diabetes & Metabolism
DX: R94.6 Abnormal results of thyroid function studies (principal)
CPT/HCPCS: 36415; 80076; 84439; 84443; 84481; 85025

== ENCOUNTER → 2022-05-29 08:22 | Outpatient (BNVA) | payer MEDICARE, SELFPAY | PROVIDERS: PCP Nurse Practitioner Family; Visit Provider Internal Medicine Endocrinology, Diabetes & Metabolism | DX: R79.89 Other specified abnormal findings of blood chemistry (principal) | CPT/HCPCS: 99212 ==

== ENCOUNTER → 2022-06-13 14:39 | Outpatient (BNVA) | payer MEDICARE, SELFPAY | PROVIDERS: PCP Nurse Practitioner Family; Visit Provider Surgery Vascular Surgery | DX: I89.0 Lymphedema, not elsewhere classified (principal) | CPT/HCPCS: 99212 ==

== ENCOUNTER → 2022-07-30 09:58 | Outpatient (BNVA) | payer MEDICARE, SELFPAY | PROVIDERS: PCP Nurse Practitioner Family; Visit Provider Internal Medicine | DX: G47.33 Obstructive sleep apnea (adult) (pediatric) (principal); J44.9 Chronic obstructive pulmonary disease, unspecified; J98.4 Other disorders of lung; J96.91 Respiratory failure, unspecified with hypoxia; E66.01 Morbid (severe) obesity due to excess calories; Z99.89 Dependence on other enabling machines and devices; Z68.43 Body mass index [BMI] 50.0-59.9, adult | CPT/HCPCS: 99212 ==

== ENCOUNTER 2022-08-28 09:10 | Outpatient (REF) | payer MEDICARE, SELFPAY ==
--- NOTE | ~2022-08-28 | XR_ITS ---
EXAMINATION: XR KNEE AP STANDING X-RAY RIGHT KNEE CLINICAL INFORMATION: Pain. COMPARISON: Radiograph right knee 11/02/2018. TECHNIQUE: AP bilateral standing view of the knees was obtained. Lateral view of the right knee FINDINGS: Total left knee arthroplasty with no evidence of fracture or complication in this limited single view of the left knee. Severe joint space narrowing with subcortical sclerosis and marginal osteophytes in the medial compartment of the right knee. Moderate joint space narrowing of the lateral and patellofemoral compartments of the right knee. Small joint effusion in the right knee. XR/XR knee RT 1V IMPRESSION: 1. Total left knee arthroplasty without evidence of fracture or complication. 2. Severe degenerative osteoarthritis of the medial compartment of the right knee, progressed compared to 11/02/2018. 3. Small joint effusion in the right knee.
--- NOTE | ~2022-08-28 | XR_ITS ---
EXAMINATION: XR KNEE AP STANDING X-RAY RIGHT KNEE CLINICAL INFORMATION: Pain. COMPARISON: Radiograph right knee 11/02/2018. TECHNIQUE: AP bilateral standing view of the knees was obtained. Lateral view of the right knee FINDINGS: Total left knee arthroplasty with no evidence of fracture or complication in this limited single view of the left knee. Severe joint space narrowing with subcortical sclerosis and marginal osteophytes in the medial compartment of the right knee. Moderate joint space narrowing of the lateral and patellofemoral compartments of the right knee. Small joint effusion in the right knee. XR/XR knee standing BI IMPRESSION: 1. Total left knee arthroplasty without evidence of fracture or complication. 2. Severe degenerative osteoarthritis of the medial compartment of the right knee, progressed compared to 11/02/2018. 3. Small joint effusion in the right knee.
== END 2022-08-28 09:11 | disposition home or self-care (01) ==
LOC: HO.HOSX 09:10
PROVIDERS: PCP Nurse Practitioner Family; Visit Provider Physician Assistant
DX: N32.81 Overactive bladder (principal); M75.102 Unspecified rotator cuff tear or rupture of left shoulder, not specified as traumatic; M25.561 Pain in right knee; M25.562 Pain in left knee
CPT/HCPCS: 20610; 51798; 73560; 73565; 99212; J1040

== ENCOUNTER 2022-08-28 09:10 | Outpatient (AMB) | payer MEDICARE, SELFPAY ==
--- NOTE | 2022-08-28 09:37 | MHC.OFFVIS ---
Intake Vital Signs 08/28/22 09:50 Height 6 ft 4 in Weight 449 lb BMI 54.6 Intake Visit Reasons: OV-Left Shoulder injection-last injection 03/29/22 Intake Note: Dinh is a 67 year old male who presents today for a follow up of left shoulder, last injection 03/29/22. Patient reports good releif and discomfort returned about 4-6 weeks ago that has been getting worse. He is requesting to repeat injection. Patient reports right knee pain for a couple of years that has been getting worse. Denies injury. He has a constant ache and pain with activity. His knee will frequently lock and pop. Denies numbness or tingling but states neuropathy in feet. He believes a few years prior having an injection in his right knee. He has tried Tylenol and Motrin with no relief. Hx of left knee replacement about 8-10 years ago. Allergies No Known Allergies [No Known Allergies*] Allergy (Verified 08/28/22 10:38) HPI OV-Left Shoulder injection-last injection 03/29/22 HPI Details 67-year-old male who returns to the office today for a follow-up of left shoulder pain. He had his last injection on 03/29/21 which provided him relief and he was able to perform more activities up until the past 4-6 weeks and the pain is worsening ever since. He also states he has constant, worsening and aching right knee pain for about 2 years. His pain is aggravated with activity. He also c/o frequent locking and popping sensation in his knee. He denies any numbness or tingling. He finds no relief with Tylenol and Motrin. He does not have diabetes. He did have a left TKA surgery about 8-[address] Farias. He is battling weight loss since having COVID. He has lympadema and is on home O2. 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 [facility] Medical History Bladder outlet obstruction Chronic cystitis COPD (chronic obstructive pulmonary disease) COPD (chronic obstructive pulmonary disease) COPD (chronic obstructive pulmonary disease) COVID-19 MATUTE (dyspnea on exertion) Hereditary lymphedema History of diverticulitis History of umbilical hernia Injury of right rotator cuff Lymphedema Morbid obesity Morbid obesity JEFFRY (obstructive sleep apnea) JEFFRY on CPAP Respiratory failure with hypoxia Restless leg syndrome Restrictive lung disease Sensory neuropathy Traumatic complete tear of right rotator cuff Venous insufficiency Surgical History History of appendectomy History of arthroscopy of left knee Hx of colonoscopy Family History Father Arthritis Diabetes Mother Arthritis Kidney stones Family/Other Arthritis Sister No problems noted. Sister No problems noted. Son No problems noted. 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 Cognitive needs: No Hearing needs: No Vision needs: No Review of Systems Const All systems reviewed & are unremarkable except as noted in HPI and below Physical Exam Vital Signs: BMI result Body Mass Index 54.6 Const General: cooperative, healthy appearing and no acute distress HEENT Head: Yes normal to inspection Extrem Other: Left shoulder full ROM in all planes with mild discomfort. 5/5 RTC strength with mild discomfort. +Walker. - Cross body abduction. NVI. Right knee: Skin intact, no erythema or joint effusion. Tenderness along the medial and lateral joint line. Full ROM with crepitus. Negative Minal?s. No ligamentous laxity. NVI. Office Procedures Joint Injection/Drain Joint Injection/Drain Primary Site: left shoulder Prep: site was prepped using aseptic technique, ethochloride spray was applied and injection warnings given Injected: 80 mg of, DepoMedrol, with 8 mL of, 1% plain lidocaine and in the subcromial space Approach Used: posterolateral Procedure: The patient tolerated the procedure well and there was some relief with the local anesthesia Coding 77585 - Glenohumeral/Tronchanteric Bursa/Intraarticular Procedure code (CPT) selection complete Results Reviewed Results Reviewed: 08/28/22 10:11 BUPivacaine MPF 0.25 % [Sensorcaine-MPF 0.25% 10 ML] 10 ml .ROUTE .STK-MED ONE Lidocaine HCl 2 % MPF [Xylocaine 2 % MPF] 5 ml .ROUTE .STK-MED ONE methylPREDNISolone acetate [DEPO-MedroL] 80 mg .ROUTE .STK-MED ONE Xrays were obtained in the office today and personally reviewed by me of the right knee show tricompartmental oa Assessment & Plan Assessment & Plan (1) Rotator cuff tear: Code(s): M75.100 - Unspecified rotator cuff tear or rupture of unspecified shoulder, not specified as traumatic Plan Left shoulder: We discussed options today which include steroid injection. They did consent to move forward with the left shoulder injection, which was tolerated well. I recommended rest, ice and elevation and OTC anti-inflammatories PRN for discomfort. If symptoms persist or worsens over the next 6-8 weeks, patient will contact the office, otherwise follow-up as needed. Right knee: Our plan is to inject the right knee in 1 month. Orders: Orders XR knee standing BI Today M25.561 - Pain in right knee, M25.562 - Pain in left knee Patient Instructions: Scribed for Angella Villalta PA-C, by Cl Helton medical reimbursement specialist, on 08/28/2022 at 9:45 AM FRANK. Angella Grant PA-C, have personally reviewed and agree with the information entered by the scribe. Coding Level of Care Code Est Pt Level 3 (11293) Diagnoses Rotator cuff tear M75.100 CPT Codes Coding - Joint 7: 17209 - Glenohumeral/Tronchanteric Bursa/Intraarticular ([id number])
[2022-08-28 09:50] VITALS: BMI 54.6
== END 2022-08-28 10:27 | disposition home or self-care (01) ==
PROVIDERS: PCP Nurse Practitioner Family; Visit Provider Physician Assistant
DX: M75.102 Unspecified rotator cuff tear or rupture of left shoulder, not specified as traumatic (principal)
CPT/HCPCS: 20610; 99213

== ENCOUNTER 2022-08-28 10:26 | Outpatient (AMB) | payer MEDICARE, SELFPAY ==
--- NOTE | 2022-08-28 10:37 | MHC.OFFVIS ---
Intake Intake Visit Reasons: 3m/UA Intake Note: Patient presents today for a 3mo follow-up Meds- Fenasteride & Sildenafil Allergies to Antibiotic- None Blood Thinner- Furosemide & Aspirin PVR- OML Vp Cardiovascular Service Line Required: No Accompanied by: Self / Same As Patient Allergies No Known Allergies [No Known Allergies*] Allergy (Verified 08/28/22 10:38) Medication List - Last Reconciled 08/28/22 by Prabhu Head MD albuterol sulfate 90 mcg/actuation 2 puffs PO Q4-6H PRN Anoro Ellipta 62.5-25 mcg/actuation (umeclidinium-vilanterol) 1 inh PO DAILY NS aspirin (Adult Low Dose Aspirin) 81 mg PO DAILY 90 days atorvastatin 80 mg PO BEDTIME 90 days doxazosin 8 mg PO BEDTIME 30 days duloxetine 60 mg PO DAILY finasteride 5 mg PO DAILY 90 days furosemide 20 mg PO DAILY methimazole 5 mg PO DAILY methocarbamol 500 mg PO BEDTIME PRN metoprolol succinate ER 50 mg PO DAILY mirabegron ER 25 mg PO DAILY 30 days naproxen one tab in the am, 1.5 tabs in the pm PO; do not take with meloxicam 90 days pregabalin 150 mg PO TID 30 days ropinirole 2 mg PO TID sildenafil 100 mg PO DAILY PRN 10 days HPI HPI Comments History of Present Illness Details Dinh is a very pleasant male. He is a patient of Dr. Chong. He is seen for the following urologic conditions - chronic cystitis - lower urinary tract symptoms Goes to wound clinic clinic for lymphedema Using lower body pump Still with urgency and frequency Trial of overactive bladder medications Trial Myrbetriq Lower urinary tract symptoms Did notice improved stream with doxazosin 8 mg Still with urge Will trial 3 months of low-dose Bactrim for chronic cystitis Hematuria: Chronic cystitis on prior biopsy Episode of marked hematuria October 2020 Microscopic hematuria was diagnosed during routine UA. They are here for the cystoscopy and discussion of imaging findings. Since the last visit the patient has has not noticed gross hematuria, continues to test positive for microscopic hematuria. Relevant medical history for no pertinent medical history. PSA 01/07 1.6, 05/09 1.3 Radiographic imaging: CT KUB NAD - bilateral renal cyst. Cystoscopy findings September 2018 chronic cystitis. Therapeutic plan follow-up in 6 months [facility] Medical History Bladder outlet obstruction Chronic cystitis COPD (chronic obstructive pulmonary disease) COPD (chronic obstructive pulmonary disease) COPD (chronic obstructive pulmonary disease) COVID-19 MATUTE (dyspnea on exertion) Hereditary lymphedema History of diverticulitis History of umbilical hernia Injury of right rotator cuff Lymphedema Morbid obesity Morbid obesity JEFFRY (obstructive sleep apnea) JEFFRY on CPAP Respiratory failure with hypoxia Restless leg syndrome Restrictive lung disease Sensory neuropathy Traumatic complete tear of right rotator cuff Venous insufficiency Surgical History History of appendectomy History of arthroscopy of left knee Hx of colonoscopy Family History Father Arthritis Diabetes Mother Arthritis Kidney stones Family/Other Arthritis Sister No problems noted. Sister No problems noted. Son No problems noted. 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 -[employer] Cognitive needs: No Hearing needs: No Vision needs: No Review of Systems Const Denies chills and Denies fever(s) Card Reports no additional complaints and Denies syncope Resp Denies cough GI Denies abdominal pain and Denies heartburn Reports as per HPI and Denies change in libido Neuro Denies syncope Psych Denies change in libido Endo Denies change in libido Physical Exam Const General: cooperative, healthy appearing, comfortable and no acute distress Orientation/consciousness: patient oriented x3 HEENT Face and sinus: Yes normal facial exam Mouth: moist mucous membranes Neck Neck: Yes normal visual inspection, Yes full ROM and Yes trachea midline Chest Chest palpation & inspection: normal inspection of the chest Resp Effort & Inspection: normal respiratory effort, able to speak in complete sentences and no respiratory distress GI Inspection: Yes normal to inspection Back/Spine/Pelvis Cervical Spine: normal cervical lordosis Thoracic/Lumbar Spine: thoracic and lumbar spine normal to inspection Skin General skin exam: no rashes or lesions noted Neuro General: patient oriented x3, gait normal, tone normal and moves all extremities Extrem General: Yes normal to inspection and Yes capillary refill normal Office Procedures Post Void Residual Post Residual Void Post Void Residual (PVR): 0 48159-Spzh Void Residual by ultrasound Results AMB Urinalysis, Automated UA Leukoctes 15 Melinda/uL Last Edit by Hodan Chiang Angelito on 08/28/22 10:59 UA Nitrite Negative Last Edit by Hodan Chiang Angel[facility] on 08/28/22 10:59 UA Urobilinogen 0.2 mg/dL Last Edit by Hodan Chiang [facility] on 08/28/22 10:59 UA Protein 15 mg/dL Last Edit by Hodan Chiang Angelito on 08/28/22 10:59 UA pH 6.0 Last Edit by Hodan Chiang [facility] on 08/28/22 10:59 UA Blood 80 Deepak/uL Last Edit by Hodan Chiang Angelito on 08/28/22 10:59 2+ Hodan Chiang 08/28/22 10:59 UA Specific [place] 1.025 Last Edit by Hodan Chiang Angel[facility] on 08/28/22 10:59 UA Ketone Negative Last Edit by Hodan Chiang Angelito on 08/28/22 10:59 UA Bilirubin 0 mg/dL Last Edit by Hodan Chiang [facility] on 08/28/22 10:59 UA Glucose 0 mg/dL Last Edit by Hodan Chiang [facility] on 08/28/22 10:59 Results Reviewed Results Reviewed: Laboratory Last Values Urine pH (Auto) 6.0 08/28/22 10:57 Specific [place] (Auto) 1.025 08/28/22 10:57 Urine Protein (Auto) 15 mg/dL 08/28/22 10:57 Glucose (UA)(Auto) 0 mg/dL 08/28/22 10:57 Urine Ketones (Auto) Negative 08/28/22 10:57 Urine Blood (Auto) 80 Deepak/uL 08/28/22 10:57 Urine Nitrite (Auto) Negative 08/28/22 10:57 Urine Bilirubin (Auto) 0 mg/dL 08/28/22 10:57 Urine Urobilinogen (Auto) 0.2 mg/dL 08/28/22 10:57 Leukocyte Esterase (Auto) 15 Melinda/uL 08/28/22 10:57 Assessment & Plan Assessment & Plan (1) Overactive bladder: Code(s): N32.81 - Overactive bladder Plan Trial Myrbetriq Orders: Orders AMB Urinalysis Automated Today Z13.9 - Encounter for screening, unspecified AMB Post Void Residual by ultrasound Today N39.8 - Other specified disorders of urinary system Medications: New mirabegron ER 25 mg PO DAILY 30 days 30 tabs 1RF N32.81 - Overactive bladder Changed From methocarbamol 500 mg PO BEDTIME 30 days 30 tabs 1RF To methocarbamol 500 mg PO BEDTIME PRN Patient Instructions: Imaging studies, laboratory and physical exam results were discussed and reviewed in detail. No major barriers to patient understanding were identified. An opportunity to ask questions regarding the treatment plan was provided. All questions were answered. The patient expressed understanding and agreement with the above treatment plan. The patient is aware they should contact our office by phone for worsening of their current condition or the appearance of new urologic symptoms. Compliance is encouraged with any medications and followup testing that is ordered. It is a privilege to participate in the urologic care of your patient. If you have any questions or concerns regarding treatment for the above conditions, or other urologic issues, please do not hesitate to contact me. The office telephone contact is [phone]. This note is constructed using voice recognition software. While every effort has been made to ensure accuracy winding machine operator errors may have been included. Yours sincerely, Dr Prabhu Head MD, [facility] - Urology Providers of Expert, Compassionate Care for the Genitourinary System Coding Level of Care Code Est Pt Level 4 (11273) Diagnoses Overactive bladder N32.81 CPT Codes Post Residual Void - PVR CPT Code: 97675-Ycnk Void Residual by ultrasound ([id number])
== END 2022-08-28 11:25 | disposition home or self-care (01) ==
PROVIDERS: Visit Provider Urology
DX: N32.81 Overactive bladder (principal)
CPT/HCPCS: 99214

== ENCOUNTER 2022-09-11 08:00 | Outpatient (RCR) | payer MEDICARE, SELFPAY | END 2022-12-03 10:16 | disposition home or self-care (01) | LOC: HO.WCC 08:00 | PROVIDERS: PCP Nurse Practitioner Family; Visit Provider Surgery | DX: I87.011 Postthrombotic syndrome with ulcer of right lower extremity (principal); L97.812 Non-pressure chronic ulcer of other part of right lower leg with fat layer exposed; Q82.0 Hereditary lymphedema; I50.32 Chronic diastolic (congestive) heart failure; I48.0 Paroxysmal atrial fibrillation; Z79.01 Long term (current) use of anticoagulants; Z79.899 Other long term (current) drug therapy | CPT/HCPCS: 11042; 11045; 97597 ==

== ENCOUNTER 2022-09-12 08:01 | Outpatient (AMB) | payer MEDICARE, SELFPAY ==
--- NOTE | 2022-09-12 08:15 | MHC.PC.OV ---
Vital Signs 09/12/22 08:16 Height 6 ft 4 in Weight 448 lb 2 oz BMI 54.5 BP 122/76 Blood Pressure Location Lt brachial Position Sitting Pulse 77 Pulse Source Pulse Oximeter Pulse Oximetry (%) 99 Oxygen Delivery Method Room Air Intake Visit Reasons: 4m follow up, COPD/lymphedema Allergies No Known Allergies [No Known Allergies*] Allergy (Verified 09/12/22 08:21) Medication List - Last Reconciled 09/12/22 by DIANA PickettP- albuterol sulfate 90 mcg/actuation 2 puffs PO Q4-6H PRN Anoro Ellipta 62.5-25 mcg/actuation (umeclidinium-vilanterol) 1 inh PO DAILY NS aspirin (Adult Low Dose Aspirin) 81 mg PO DAILY 90 days atorvastatin 80 mg PO BEDTIME 90 days doxazosin 8 mg PO BEDTIME 30 days duloxetine 60 mg PO DAILY finasteride 5 mg PO DAILY 90 days furosemide 20 mg PO DAILY methimazole 5 mg PO DAILY methocarbamol 500 mg PO BEDTIME PRN metoprolol succinate ER 50 mg PO DAILY mirabegron ER 25 mg PO DAILY 30 days naproxen one tab in the am, 1.5 tabs in the pm PO; do not take with meloxicam 90 days pregabalin 150 mg PO TID 30 days ropinirole 2 mg PO TID sildenafil 100 mg PO DAILY PRN 10 days Tobacco use date assessed: 09/12/22 Fall risk assessment: No Falls in past year Last assessed Fall Risk: 09/12/22 Dental Screening Dental Screen Date: 09/12/22 Did you have a dental visit in the last 12 months?: Yes Did you have a dental problem in the last 6 months where you did not have access to dental care?: No Was dental information given to patient?: Patient has dentist HPI 4m follow up, COPD/lymphedema HPI Details Pt is following up with [facility] lymphedema clinic for his BLE. He is also seeing vascular. He is also seeing the wound center once a week. Pt recently had his right first toenail removed by podiatry. Pt reports intermittent palpitations, or blips. He denies any radicular symptoms. Will order holter. EKG in office shows new onset afib. Will order repeat echo and refer to cardiology. He is on a beta karin. Will start eliquis. Instructed pt to cut back on his naproxen use. Denies chest pain, shortness of breath, and dizziness. Pt uses a CPAP. FOR[facility]LY [facility], [facility] Medical History Bladder outlet obstruction Chronic cystitis COPD (chronic obstructive pulmonary disease) COPD (chronic obstructive pulmonary disease) COPD (chronic obstructive pulmonary disease) COVID-19 MATUTE (dyspnea on exertion) Hereditary lymphedema History of diverticulitis History of umbilical hernia Injury of right rotator cuff Lymphedema Morbid obesity Morbid obesity JEFFRY (obstructive sleep apnea) JEFFRY on CPAP Respiratory failure with hypoxia Restless leg syndrome Restrictive lung disease Sensory neuropathy Traumatic complete tear of right rotator cuff Venous insufficiency Surgical History History of appendectomy History of arthroscopy of left knee Hx of colonoscopy Family History Father Arthritis Diabetes Mother Arthritis Kidney stones Family/Other Arthritis Sister No problems noted. Sister No problems noted. Son No problems noted. 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 How often do you have a drink containing alcohol?: 4 or more times a week 2. How many drinks containing alcohol do you have on a typical day when you are drinking?: 1 or 2 3. How often do you have six or more drinks on one occasion?: Never Total Score: 4 KIRA-7 AMB Questionnaire KIRA-7 Date KIRA - 7 assessed: 05/28/21 Feeling nervous, anxious, or on edge: 1 = Several days Not being able to stop or control worryin = Not at all Worrying too much about different things: 1 = Several days Trouble relaxin = Several days Being so restless that it is hard to sit still: 1 = Several days Becoming easily annoyed or irritable: 0 = Not at all Feeling afraid as if something awful might happen: 0 = Not at all Total KIRA-7 score (0-4 normal; 5-9 mild; 10-14 moderate; 15-21 severe): 4 Source: Developed by Drs. Marc Victoria, Karen Nguyen, Tristan Dominguez and colleagues, with an educational juan from [employer]. Review of Systems Const Reports as per HPI Physical exam (Primary Care) Vital Signs: Last Vital Signs Pulse 77 09/12/22 08:16 BP 122/76 09/12/22 08:16 Pulse Ox 99 09/12/22 08:16 Oxygen Delivery Method Room Air 09/12/22 08:16 BMI result Body Mass Index 54.5 Tobacco/Smoking Status: Tobacco use Status Tobacco use date assessed 09/12/22 09/12/22 08:24 Patient Tobacco Use Status Former Tobacco user 09/12/22 08:24 e-Cigarette/Vaping Use Never Used 09/12/22 08:24 Thrive Assessment: Date of Thrive Assessment Date Thrive assessed 05/28/21 09/12/22 08:24 Const General: cooperative Nutritional Appearance: obese morbidly obese Orientation/consciousness: patient oriented x3 Resp Effort & Inspection: normal respiratory effort Auscultation: clear to auscultation bilaterally Cardio Rate: regular rate Rhythm: regular rhythm Heart sounds: S1 normal heart sound present and S2 normal heart sound present Neuro General: patient oriented x3 Extrem Other: right first toenail removed, no signs of infection Psych Appearance: grossly normal Mental Status: mental status grossly normal Speech and movement: Normal speech and movement present Affect: normal affect Attitude: cooperative Thought process: Normal thought process present Thought content: Normal thought content present Insight: Good insight present (Psych) Judgement: Good judgement present (Psych) Assessment and Plan Assessment & Plan (1) Palpitations: Code(s): R00.2 - Palpitations Plan: EKG done in office, holter ordered (2) Morbid obesity: Code(s): E66.01 - Morbid (severe) obesity due to excess calories Plan: Labs ordered (3) Lymphedema: Comment: IT IS A CHRONIC PROBLEM, HE IS BEING FOLLOWED BY VASCULAR SURGEON,DR NEWSOME Code(s): I89.0 - Lymphedema, not elsewhere classified Plan: Labs ordered, following up with lymphedema clinic (4) New onset a-fib: Code(s): I48.91 - Unspecified atrial fibrillation Plan: Referred to cardiology Plan The patient agreed to the use of a medical physics professor for this encounter. Scribed for Diego Augustine [facility]- by Temitope Navarro medical physics professor, on 09/12/2022 at 08:30 EST. Orders: Orders ECG 3 day holter monitor Today I48.91 - Unspecified atrial fibrillation, R00.2 - Palpitations Comprehensive [place]. Panel Fast Today E66.01 - Morbid (severe) obesity due to excess calories, R00.2 - Palpitations Lipid Panel Today E66.01 - Morbid (severe) obesity due to excess calories, R00.2 - Palpitations CA echo transthoracic complete Today I48.91 - Unspecified atrial fibrillation AMB EKG-In Office Today R00.2 - Palpitations Referrals Cardiology Referral I48.91 - Unspecified atrial fibrillation Medications: New apixaban (Eliquis) 2.5 mg PO BID 60 tabs 3RF 30 days Discontinued aspirin (Adult Low Dose Aspirin) Discontinued Reason: Doctor's Order 81 mg PO DAILY 90 days 90 tabs 1RF Coding Level of Care Code Est Pt Level 3 (62914) Diagnoses Palpitations R00.2 Morbid obesity E66.01 Lymphedema I89.0 New onset a-fib I48.91
[2022-09-12 08:16] VITALS: BP 122/76; PULSE 77; O2SAT 99; BMI 54.5
== END 2022-09-12 10:27 | disposition home or self-care (01) ==
PROVIDERS: Visit Provider Nurse Practitioner Family
DX: R00.2 Palpitations (principal); E66.01 Morbid (severe) obesity due to excess calories; I48.91 Unspecified atrial fibrillation; Z68.43 Body mass index [BMI] 50.0-59.9, adult; I89.0 Lymphedema, not elsewhere classified
CPT/HCPCS: 93000; 99213

== ENCOUNTER 2022-09-24 11:38 | Outpatient (REF) | payer MEDICARE, SELFPAY ==
[2022-09-24 13:20] LABS: MANUAL DIFF FLAG NO
[2022-09-24 13:49] LABS: Appearance Urine Clear; Color Urine Yellow; Glucose Urine UA Negative (Negative); Leukocyte Esterase Urine Negative (Negative); Nitrite Urine Negative (Negative); PH 6.5 (5.0-9.0); UMIC TRIGGER UA YES; Urine Blood Moderate (2+) (Negative); Urine Ketones Negative (Negative); Urine Protein Negative (Neg-Trace)
[2022-09-24 13:53] LABS: Bacteria Urine None Seen (None Seen); Hyaline Casts Urine 0-2 /LPF (0-2); RBC Urine >20 /HPF (0-2); Squamous Epithelial Cell Urine 0-2 /HPF (0-2); WBC Urine 0-5 /HPF (0-5)
[2022-09-24 13:56] LABS: Basophils Absolute Auto 0.1 X10*3/uL (0.0-0.2); Basophils Percent Auto 0.7 % (0-2); Eosinophils Absolute Auto 0.2 X10*3/uL (0.0-0.4); Eosinophils Percent Auto 2.7 % (0-4); Hematocrit 48.1 % (42.0-52.0); Hemoglobin 15.8 g/dl (14.0-18.0); Imm Gran Abs Auto 0.04 X10*3/uL (0.00-0.03); Imm Gran Pct Auto 0.5 % (0.0-0.4); Lymphocytes Absolute Auto 2.4 X10*3/uL (1.2-4.9); Lymphocytes Percent Auto 28.5 % (20-40); Mean Corpuscular HGB Conc 32.8 g/dl (31.0-36.0); Mean Corpuscular Hemoglobin 33.8 pg (27.0-33.0); Mean Corpuscular Volume 102.8 fL (80.0-98.0); Monocytes Absolute Auto 0.7 X10*3/uL (0.1-1.2); Monocytes Percent Auto 8.4 % (2-11); Neutrophils Percent Auto 59.2 % (45-73); Platelet Count 244 X10*3/uL (160-400); Red Blood Count 4.68 X10*6/uL (4.60-5.80); Red Cell Distribution Width 13.2 % (11.0-16.0); White Blood Count 8.5 X10*3/uL (4.8-10.8)
[2022-09-24 14:28] LABS: Alanine Aminotransferase 23 U/L (0-40); Albumin Level 3.8 g/dL (3.5-5.0); Alkaline Phosphatase 92 U/L (39-117); Anion Gap 12 (12-20); Aspartate Amino Transferase 22 U/L (5-37); Bilirubin Direct 0.5 mg/dL (0.0-0.5); Bilirubin Total 1.2 mg/dL (0.0-1.0); Blood Urea Nitrogen 15 mg/dL (9-16); Calcium 9.5 mg/dL (8.4-10.2); Carbon Dioxide 28 mmol/L (22-29); Chloride 104 mmol/L (96-108); Cholesterol 115 mg/dL; Estimated Glomerular Filt Rate > 60; Glucose Fasting 88 mg/dL (60-99); HDL Cholesterol 44 mg/dL; LDL Cholesterol Calculated 58 mg/dl; Potassium 4.5 mmol/L (3.3-5.1); Sodium 139 mmol/L (135-145); Total Protein 7.3 g/dL (6.5-8.0); Triglycerides 67 mg/dL
[2022-09-24 14:48] LABS: Free T4 (Free Thyroxine) 0.86 ng/dL (0.71-1.85); Thyroid Stimulating Hormone 2.29 uIU/mL (0.32-4.0)
[2022-09-26 00:29] LABS: Triiodothyronine T3 Free 3.1 pg/mL (2.3-4.2)
== END 2022-09-24 11:39 | disposition home or self-care (01) ==
LOC: HO.HMGCLDS 11:38
PROVIDERS: Internal Medicine Endocrinology, Diabetes & Metabolism; PCP Nurse Practitioner Family; Visit Provider Nurse Practitioner Family
DX: E66.01 Morbid (severe) obesity due to excess calories (principal); R00.2 Palpitations; R79.89 Other specified abnormal findings of blood chemistry; R39.89 Other symptoms and signs involving the genitourinary system
CPT/HCPCS: 36415; 80053; 80061; 80076; 81001; 82248; 84439; 84443; 84481; 85025; 87086

== ENCOUNTER 2022-10-04 11:58 | Outpatient (REF) | payer MEDICARE, SELFPAY ==
[2022-10-04 13:35] LABS: Appearance Urine Clear; Color Urine Yellow; Glucose Urine UA Negative (Negative); Leukocyte Esterase Urine Trace (Negative); Nitrite Urine Negative (Negative); PH 6.5 (5.0-9.0); UMIC TRIGGER UACC YES; Urine Blood Trace (Negative); Urine Ketones Negative (Negative); Urine Protein Negative (Neg-Trace)
[2022-10-04 13:44] LABS: Bacteria Urine None Seen (None Seen); Hyaline Casts Urine 0-2 /LPF (0-2); Squamous Epithelial Cell Urine 0-2 /HPF (0-2); UACC Culture Trigger YES
== END 2022-10-04 11:59 | disposition home or self-care (01) ==
LOC: HO.HMGCLDS 11:58
PROVIDERS: PCP Nurse Practitioner Family; Visit Provider Nurse Practitioner Family
DX: Z13.9 Encounter for screening, unspecified (principal); R82.90 Unspecified abnormal findings in urine
CPT/HCPCS: 81001; 87086

== ENCOUNTER → 2022-10-10 08:31 | Outpatient (REF) | payer MEDICARE, SELFPAY ==
--- NOTE | 2022-10-10 08:36 | HM_ITS ---
Conclusion: 1. Patient was monitored for total period of 2 days and 23 hours 2. Baseline was atrial fibrillation with average heart of 86 beats per minute with overall adequate rate control 3. No significant pauses noted 4. Frequent PVCs noted with total burden of 1.3%, mostly isolated 5. Patient reported multiple symptoms and activated counter 15 times, however symptoms appear to be mostly not arrhythmic in nature and a correlating with underlying atrial fibrillation MTDD
--- NOTE | 2022-10-10 08:36 | CA_ITS ---
Transthoracic Echocardiogram Patient (Last, First, Middle): Dinh Craven R Gender: Male Date of : 1955 Age: 67 Procedure Date: 10/10/2022 Procedure Type: Transthoracic Echocardiogram Location: OP Height: 193.04 cm Weight: 199.58 kg BSA: 3.10 m2 Heart Rate: bpm BP: 120 / 70 mmHg Flour Mixer: ASHLEY Referring MD: Diego Augustine [facility] Symptoms: I48.91 - Unspecified atrial fibrillation Study Quality: Technically Difficult, contrast ECG Rhythm: Atrial Fibrillation Conclusions: - Even with contrast, difficult to assess LVEF. Suspect mildly reduced, about 40-50%. - No obvious valvular pathology seen on this study. - Mild pulmonary hypertension is present. Findings Procedure Information Contrast agent, definity, is being given per protocol without apparent complications. Left Ventricle Normal left ventricular cavity size. There is moderately increased left ventricular wall thickness. Regional wall motion abnormalities can not be excluded due to suboptimal endocardial definition. Diastolic function is indeterminate on the basis of available data. Even with contrast, difficult to assess LVEF. Suspect mildly reduced, about 40-50%. Right Ventricle Normal right ventricular cavity size. There is low normal right ventricular systolic function. Atria The left atrium is normal in size. The right atrium is mildly dilated. Aortic Valve The aortic valve was not well visualized. There is mild calcification of the aortic valve. There is no aortic valve stenosis. There is no aortic valve regurgitation. Mitral Valve The mitral valve appears normal. There is no mitral valve regurgitation. There is no mitral valve stenosis. Pulmonic Valve The pulmonic valve is likely normal. Tricuspid Valve There is mild tricuspid valve regurgitation. Mild pulmonary hypertension is present. Great Vessels The asc aorta is normal in size. Venous The inferior vena cava is dilated and collapses less than 50% with inspiration. Pericardium/Pleural There is no evidence of pericardial effusion. Prior Study Comparison Changes noted compared to prior study dated: 04/03/2021. LVEF seems lower, but difficult to compare as the image quality if very limited. Recommendations, Care & Conclusions No obvious valvular pathology seen on this study. Measurements 2D Linear Measurements IVSd: 1.30 0.6-0.9/0.6-1.0 cm LVIDd: 5.11 3.9-5.3/4.2-5.9 cm LVIDd Index: 1.65 2.4-3.2/2.2-3.1 cm/m2 LVIDs: 3.54 2.0-3.6 cm LVPWd: 1.34 0.7-1.1 cm LA Diam: 4.60 2.7-3.8/3.0-4.0 cm LAIDs Index: 1.48 1.5-2.3 cm/m2 LV Mass: 345.33 67-162/88-224 g LV Mass Index: 111.40 43-95/49-115 g/m2 LVOT Diam: 2.20 3.0+(-)1.3 cm Mitral Valve MV Pk E: 0.90 MV Decel Time: 292.00 E'Lateral: 11.00 E'Medial: 7.18 E/E' Med: 12.50 E/E' Lat: 8.20 PHT: 85.00 MVA PHT: 2.59 Decel [place]: 3.09 Aortic Valve AoV Pk Usman: 0.92 AoV Pk Grad: 3.00 LVOT LVOT Pk Usman: 0.55 LVOT Pk Grad: 1.00 LVOT Diam: 2.20 LVOT Area: 3.80 Diastolic Function MV Pk E: 0.90 E'Medial: 7.18 E/E' Med: 12.50 E' Laterial: 11.00 E/E' Lat: 8.20 Right Ventricle TAPSE (mm): 18.40 TVS' Usman: 10.10 Tricuspid Valve TR Pk Usman: 2.84 TR Pk Grad: 32.00 RA Press: 15.00 RVSP: 47.00 Great Vessels Aorta Sinus of Valsalva: 4.33 2.0-3.5 cm Ao Asc: 3.80 2.1-3.4 cm Updated in Other Vendor System with Status of Final Vik Louise MD electronically signed on 10/11/2022 2:01:14 PM with status of Final
== END ==
LOC: HO.CARD 08:31
PROVIDERS: Visit Provider Nurse Practitioner Family
DX: R00.2 Palpitations (principal); I48.91 Unspecified atrial fibrillation
CPT/HCPCS: 93242; 93306; Q9957

== ENCOUNTER → 2022-10-10 08:36 | Outpatient (BNV) | payer MEDICARE, SELFPAY | PROVIDERS: Visit Provider Internal Medicine | DX: I49.3 Ventricular premature depolarization (principal) | CPT/HCPCS: 93244; 93306 ==

== ENCOUNTER 2022-10-13 10:59 | Inpatient (IN) | payer MEDICARE, SELFPAY ==
[2022-10-13] VITALS (9 sets, daily range): BP systolic 106–126; BP diastolic 53–75; PULSE 64–90; RESP 12–24; TEMP 36.5–36.7; O2SAT 96–98; BMI 51.1
--- NOTE | ~2022-10-13 | XR_ITS ---
EXAMINATION: XR CHEST CLINICAL INFORMATION: Shortness of breath COMPARISON: X-ray 11/05/2021 TECHNIQUE: Frontal view of the chest was obtained. FINDINGS: Cardiomediastinal silhouette is within normal limits. Mild central vascular prominence, similar to previous. No confluent airspace disease, significant pleural effusion. No significant pneumothorax is seen. No acute osseous injury. XR/XR chest 1V IMPRESSION: Mild central vascular prominence without overt pulmonary edema, similar to previous. No acute process is otherwise seen.
--- NOTE | 2022-10-13 11:03 | ECG_ITS ---
Test Reason : CHEST PAIN Blood Pressure : / mmHG Vent. Rate : 079 BPM Atrial Rate : 000 BPM P-R Int : 000 ms QRS Dur : 150 ms QT Int : 380 ms P-R-T Axes : 000 -39 009 degrees QTc Int : 435 ms Atrial fibrillation Left axis deviation Right bundle branch block Abnormal ECG When compared with ECG of 16-MAY-2020 10:07, Atrial fibrillation has replaced Sinus rhythm Referred By: Generic ED Physician Electronically Signed By:DICK RIVERA
--- NOTE | 2022-10-13 11:23 | PC.NURSE ---
Patient arrived from home with complaints of increasing sob and chest pain. Patient with chronic bilateral lower extremity edema. Right leg with open weeping areas. Bilateral legs with pitting edema and redness. Patient stating followed by would clinic and pulmonology. Denies headache currently but states this morning when he had left shoulder pain he had a headache for a few minutes. Patient with history of afib, not currently on an anti-coagulation. Patient reports at rest he normally is not SOB but today he is SOB at rest. copd, sleep apnea with cpap, continuous 02 at 2 liters at home, asthma, and sob with exertion. Patient reports had covid in May 2020 and has not fully recovered since.
--- OUTSIDE RECORDS SUMMARY | 2022-10-13 11:26 | XMS_ITS | Continuity of Care Document ---
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 Name Role Phone Paul Frye MD Primary Care Physician [phone] Encounter [facility] Date(s): 07/30/22 - 08/29/22 [facility] [address], [address], [address] [place] [id number]- Attending Physician: Eric Mcdonough Admitting Physician: Eric Mcdonough Referring Physician: Eric Mcdonough Allergies, Adverse Reactions, Alerts No Known Allergies Medications Albuterol (Eqv-ProAir HFA) Inhalation, Every 6 hours, 0 Refills, Maintenance, 05/30/22 14:35:00 EDT, Partial fill upon patientrequest if the prescription is for a schedule II opioid drug. Start Date: 05/30/22 Status: Ordered Anoro Ellipta 62.5 mcg-25 mcg/inh inhalation powder 1 puffs, Inhalation, Daily, # 30 each, 0 Refills, Maintenance, 05/30/22 14:38:00 EDT, Powder, Partial fill upon patient request if the prescription is for a schedule II opioid drug. Start Date: 05/30/22 Status: Ordered aspirin 81 mg oral capsule 1 capsule = 81 mg, By Mouth, Every 4 hours, 0 Refills, Maintenance, 05/30/22 14:35:00 EDT, Partial fill upon patient request if the prescription is for a schedule II opioid drug. Start Date: 05/30/22 Status: Ordered atorvastatin 80 mg oral tablet 1 tablet = 80 mg, By Mouth, Daily, 0 Refills, Maintenance, 05/30/22 14:35:00 EDT, Partial fill uponpatient request if the prescription is for a schedule II opioid drug. Start Date: 05/30/22 Status: Ordered Bactrim 400 mg-80 mg oral tablet = 4 mg/kg, By Mouth, Every 12 hours, Dosage expressed as trimethoprim, # 20 tablet, 0 Refills, Maintenance, 05/30/22 14:38:00 EDT, Tablet, Partial fill upon patient request if the prescription is fora schedule II opioid drug. Start Date: 05/30/22 Stop Date: 06/09/22 Status: Ordered doxazosin 8 mg oral tablet 1 tablet = 8 mg, By Mouth, Daily, 0 Refills, Maintenance, 05/30/22 14:35:00 EDT, Partial fill upon patient request if the prescription is for a schedule II opioid drug. Start Date: 05/30/22 Status: Ordered duloxetine 60 mg oral enteric coated capsule 1 capsule = 60 mg, By Mouth, Daily, # 30 capsule, 0 Refills, Maintenance, 05/30/22 15:14:00 EDT, Capsule, [facility] #[id number], Partial fill upon patient request if the prescription is for a schedule II opioid drug. Start Date: 05/30/22 Status: Ordered finasteride 5 mg oral tablet 1 tablet = 5 mg, By Mouth, Daily, 0 Refills, Maintenance, 05/30/22 14:36:00 EDT, Partial fill upon patient request if the prescription is for a schedule II opioid drug. Start Date: 05/30/22 Status: Ordered furosemide 20 mg oral tablet 20 mg, 1, tablet, By Mouth, Daily, Refills 0, Maintenance, 05/30/22 14:36:00 EDT, Partial fill uponpatient request if the prescription is for a schedule II opioid drug. Start Date: 05/30/22 Status: Ordered methimazole 5 mg oral tablet 5 mg, 1, tablet, By Mouth, Every 8 hours, Refills 0, Maintenance, 05/30/22 14:36:00 EDT, Partial fill upon patient request if the prescription is for a schedule II opioid drug. Start Date: 05/30/22 Status: Ordered methocarbamol 500 mg oral tablet 2 tablet = 1,000 mg, By Mouth, 4 times a day, 0 Refills, Maintenance, 05/30/22 14:37:00 EDT, Partial fill upon patient request if the prescription is for a schedule II opioid drug. Start Date: 05/30/22 Status: Ordered metoprolol 50 mg oral tablet 50 mg, 1, tablet, By Mouth, 2 times a day, Refills 0, Maintenance, 05/30/22 14:37:00 EDT, Partial fill upon patient request if the prescription is for a schedule II opioid drug. Start Date: 05/30/22 Status: Ordered naproxen 500 mg (as sodium) oral tablet, extended release 2 tablet = 1,000 mg, By Mouth, Daily, PRN as needed for arthritis, # 20 tablet, 0 Refills, Maintenance, 05/30/22 14:37:00 EDT, ER Tablet, Partial fill upon patient request if the prescription is for a schedule II opioid drug. Start Date: 05/30/22 Status: Ordered pregabalin 150 mg oral capsule 1 capsule = 150 mg, By Mouth, 3 times a day, # 90 capsule, 3 Refills, Maintenance, 05/30/22 15:12:00 EDT, Capsule, [id number], Partial fill upon patient request if the prescription is for a schedule II opioid drug. Start Date: 05/30/22 Status: Ordered rOPINIRole 2 mg oral tablet 1 tablet = 2 mg, By Mouth, 3 times a day, # 90 tablet, 3 Refills, Maintenance, 05/30/22 15:14:00 EDT, Tablet, [id number], Partial fill upon patient request if the prescription is for a schedule II opioid drug. Start Date: 05/30/22 Status: Ordered sildenafil 100 mg oral tablet 1 tablet = 100 mg, By Mouth, Daily, 0 Refills, Maintenance, 05/30/22 14:38:00 EDT, Partial fill upon patient request if the prescription is for a schedule II opioid drug. Start Date: 05/30/22 Status: Ordered Patient Care team information Care Team Personnel Name: Paul Frye MD Position: Reference Physician Member Role: PCP Address: Address: [address] [place] [id number]- [place] Care Team Related Persons Name: NAZIAJORDAN Poole Address: [address] [address]
--- NOTE | 2022-10-13 11:41 | ED.CHESTPAIN ---
HPI - Chest Pain General Chief Complaint: Chest Pain Stated Complaint: Chest pain Time Seen by Provider: 10/13/22 11:21 Source: patient Mode of arrival: ambulatory Limitations: no limitations History of Present Illness HPI narrative: 67-year-old male history of atrial fibrillation not anticoagulated, lymphedema, hypertension, obesity, hepatitis-C, COPD chronically 2 L via nasal cannula presenting to the emergency department with complaints of sudden-onset shortness of breath at rest and with exertion. Also complaining of substernal chest pressure nonradiating. Patient followed by cardiology regularly, he reports he used to be on Eliquis however they found blood in his urine therefore they took him off and then he has not been anticoagulated since. Patient reports chronic lower extremity swelling, it has not been worse. He also has lymphedema in goes to lymphedema clinic. Patient denies trauma, nausea, vomiting, abdominal pain, headache, vision changes, dizziness and weakness. Related Data Home Medications Medication Instructions Recorded Confirmed duloxetine 60 mg capsule,delayed 60 mg PO DAILY 11/17/19 09/12/22 release ropinirole 2 mg tablet 2 mg PO TID 05/16/20 09/12/22 furosemide 20 mg tablet 20 mg PO DAILY 01/31/22 09/12/22 methocarbamol 500 mg tablet 500 mg PO BEDTIME PRN 08/28/22 09/12/22 Previous Rx's Medication Instructions Recorded albuterol sulfate 90 mcg/actuation 2 puff PO Q4-6H PRN for wheezing 10/02/20 aerosol inhaler #51 grams sildenafil 100 mg tablet 100 mg PO DAILY PRN sexual 12/25/20 activity 10 days #10 tabs Anoro Ellipta 62.5 mcg-25 1 inh PO DAILY #60 ea 04/16/21 mcg/actuation powder for inhalation (umeclidinium-vilanterol) atorvastatin 80 mg tablet 80 mg PO BEDTIME 90 days #90 tabs 05/17/22 methimazole 5 mg tablet 5 mg PO DAILY #30 tabs 06/05/22 doxazosin 8 mg tablet 8 mg PO BEDTIME 30 days #30 tabs 06/10/22 finasteride 5 mg tablet 5 mg PO DAILY 90 days #90 tabs 08/08/22 metoprolol succinate 50 mg 50 mg PO DAILY #90 tabs 08/08/22 tablet,extended release 24 hr naproxen 500 mg tablet See Rx Instructions PO .COMPLEX 90 08/11/22 days #225 tabs pregabalin 150 mg capsule 150 mg PO TID 30 days #90 caps 08/13/22 mirabegron 25 mg tablet,extended 25 mg PO DAILY 30 days #30 tabs 08/28/22 release 24 hr apixaban 5 mg tablet 5 mg PO BID 30 days #60 tabs 09/16/22 Allergies Allergy/AdvReac Type Severity Reaction Status Date / Time No Known Allergies Allergy Verified 10/13/22 11:03 [No Known Allergies*] Review of Systems Review of Systems: Constitutional : No Weight loss, No Fever, No Chills, No Fatigue, No Malaise ENT/Mouth : No sore throat, No Rhinorrhea Eyes: No Eye Pain, No Swelling, No Redness Cardiovascular : + Chest Pain, + SOB, No Dyspnea on Exertion, No Orthopnea, + Edema, No Palpitations Respiratory : No Cough, No Sputum, No Wheezing Gastrointestinal : No Nausea, No Vomiting, No Diarrhea, No Constipation, No abdominal Pain, No Hematochezia, No Melena Genitourinary : No Dysuria, No Urinary Frequency, No Hematuria, Musculoskeletal : No joint pain, No Myalgias, No Joint Swelling Skin : No Skin Lesions, No rash Neuro : No Weakness, No Numbness, No Dizziness, No Headache Psych : No Anxiety/Panic, No Depression All other systems reviewed and are negative Yes all other systems are reviewed and are negative [facility] Past Medical History Attestation statement: The following information was validated with the patient. Source: old records reviewed and nursing notes reviewed Medical History Bladder outlet obstruction Chronic cystitis COPD (chronic obstructive pulmonary disease) COPD (chronic obstructive pulmonary disease) COPD (chronic obstructive pulmonary disease) COVID-19 MATUTE (dyspnea on exertion) Hereditary lymphedema History of diverticulitis History of umbilical hernia Injury of right rotator cuff Lymphedema Morbid obesity Morbid obesity JEFFRY (obstructive sleep apnea) JEFFRY on CPAP Respiratory failure with hypoxia Restless leg syndrome Restrictive lung disease Sensory neuropathy Traumatic complete tear of right rotator cuff Venous insufficiency Surgical History History of appendectomy History of arthroscopy of left knee Hx of colonoscopy Family History Family History Father Arthritis Diabetes Mother Arthritis Kidney stones Family/Other Arthritis Sister No problems noted. Sister No problems noted. Son No problems noted. Social History Social History Household Members: Spouse Household Members Other:: Floridalma Housing: House Do you presently have visiting nurse or other home services: No Alcohol intake: current Alcohol intake frequency: 0-2 drinks per day Alcohol type: beer Patient Tobacco Use Status: Former Tobacco user Years Smoked: 30 years Smoked in Last 30 Days: No e-Cigarette/Vaping Use: Never Used Second Hand Smoke Exposure: No Use of substances other than those prescribed or required for medical reasons: Yes Substance Use Type: Marijuana Advance Directives: Yes Advance Directives on File: Yes Advance Directives Date on File: 05/16/20 service: No Current occupational status: retired 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 Oriented X3.? No acute distress.? Head: Normocephalic, atraumatic, no step-offs or deformities Eyes: Pupils equal, round and reactive to light.? ENT: Pharynx normal.? Neck: Normal inspection.? Neck supple.? CVS: Normal heart rate and rhythm.? Pulses normal.? Respiratory: No respiratory distress.? Breath sounds diminnidhed w/ faint crackles b/l Abdomen: Soft and nontender.? Skin: Skin warm and dry.? Normal skin color.? Normal skin turgor.? Extremities: 3+ non pitting edema to b/l LE.? No calf ttp. 5/5 strength to bilateral upper and lower extremities Neuro: Oriented X 3.? No motor deficit.? No sensory deficit. CN 2-12 intact Course Reevaluation(s) Reevaluation #1: CBC appears to be around patient's baseline. Chemistry no acute findings requiring intervention, troponin negative x2, BNP within normal limits. COVID negative, chest x-ray with mild central vascular prominence without overt pulmonary edema similar previous no acute findings. Time: 14:43 Reevaluation #2: I did discuss this case with my attending Dr. Jones who does not think there is a need for CTA as patient has negative D-dimer is saturating well on his home oxygen level, will have him follow-up with PCP and Cardiology. Time: 15:02 Reevaluation #3: I did speak to cardiology who would like patient to be admitted for echo tomorrow and observation patient does have new onset AFib as of recently, not this visit however recent diagnosis and has not had a workup. And his symptoms have been worsening. Time: 15:21 Medications Administered Discontinued Medications Generic Name Dose Route Start Last Admin Trade Name Freq PRN Reason Stop Dose Admin Morphine Sulfate 4 mg 10/13/22 12:30 10/13/22 12:36 Morphine Sulfate 4 Mg/Ml Cartridge IVPUSH 10/13/22 12:31 4 mg ONCE ONE Administration Protocol Medical Decision Making Medical Decision Making [facility] Narrative: 1145 67 yo M presents w/ chest pressure & SOB since this morning PE - Breath sounds diminnidhed w/ faint crackles b/l. Will rule out ACS, PE, CHF. No signs of acute respiratory distress. Other differentials include viral illness. Will rule out electrolyte abnormality. No signs of arterial or venous occlusion. No signs of dissection. Plan at this time labs, imaging, EKG Differential Diagnosis Differential Diagnoses: The differential diagnosis associated with the presentation includes Will rule out ACS, PE, CHF. No signs of acute respiratory distress. Other differentials include viral illness. Will rule out electrolyte abnormality. No signs of arterial or venous occlusion. No signs of dissection. Admission/Observation Consideration of admission/observation: Escalation of care including admission/observation considered Possible Consult Healthcare Provider Management of the patient was discussed with: Hospitalist and Lumber Stacker Driver (Dr. Jones attending, Cardiology ) Lab Data [facility] Lab Attestation statement: I reviewed the patient's lab results. 10/13/22 11:48 10/13/22 11:48 Labs: Lab Results 10/13/22 10/13/22 10/13/22 Range/Units 11:48 11:48 11:48 WBC 6.5 (4.8-10.8) X10*3/uL RBC 4.39 L (4.60-5.80) X10*6/uL Hgb 15.0 (14.0-18.0) g/dl Hct 44.8 (42.0-52.0) % MCV 102.1 H (80.0-98.0) fL MCH 34.2 H (27.0-33.0) pg MCHC 33.5 (31.0-36.0) g/dl RDW 13.2 (11.0-16.0) % Plt Count 236 (160-400) X10*3/uL MPV 10.0 (9.4-12.4) fL Immature Gran % (Auto) 0.3 (0.0-0.4) % Neut % (Auto) 59.2 (45-73) % Lymph % (Auto) 28.3 (20-40) % Bell % (Auto) 7.7 (2-11) % Eos % (Auto) 3.9 (0-4) % Baso % (Auto) 0.6 (0-2) % Lymph # (Auto) 1.8 (1.2-4.9) X10*3/uL Bell # (Auto) 0.5 (0.1-1.2) X10*3/uL Eos # (Auto) 0.3 (0.0-0.4) X10*3/uL Baso # (Auto) 0.0 (0.0-0.2) X10*3/uL Abs Immat Gran (auto) 0.02 (0.00-0.03) X10*3/uL Absolute Neuts (auto) 3.8 (2.0-8.3) x10*3/uL Absolute Nucleated RBC 0.000 (0.0-0.012) X10*3/uL Nucleated RBC % (auto) 0.0 (0.0-0.2) /100WBC PT (11.1-13.3) SEC INR (0.9-1.1) D-Dimer High Sensitivty NG/ML Sodium 140 (135-145) mmol/L Potassium 4.2 (3.3-5.1) mmol/L Chloride 104 (96-108) mmol/L Carbon Dioxide 27 (22-29) mmol/L Anion Gap 13 (12-20) BUN 18 H (9-16) mg/dL Creatinine 0.89 (0.5-1.4) mg/dL Estim Creat Clear Calc 150.1 Estimated GFR > 60 Random Glucose 114 (60-115) mg/dL Calcium 9.2 (8.4-10.2) mg/dL Troponin I High Sens < 2.7 (<3.5-35.0) ng/L B-Natriuretic Peptide (<100) pg/mL COVID-19 (JAJA) (Negative) COVID-19 Clin Com 10/13/22 10/13/22 10/13/22 Range/Units 11:48 11:49 12:29 WBC (4.8-10.8) X10*3/uL RBC (4.60-5.80) X10*6/uL Hgb (14.0-18.0) g/dl Hct (42.0-52.0) % MCV (80.0-98.0) fL MCH (27.0-33.0) pg MCHC (31.0-36.0) g/dl RDW (11.0-16.0) % Plt Count (160-400) X10*3/uL MPV (9.4-12.4) fL Immature Gran % (Auto) (0.0-0.4) % Neut % (Auto) (45-73) % Lymph % (Auto) (20-40) % Bell % (Auto) (2-11) % Eos % (Auto) (0-4) % Baso % (Auto) (0-2) % Lymph # (Auto) (1.2-4.9) X10*3/uL Bell # (Auto) (0.1-1.2) X10*3/uL Eos # (Auto) (0.0-0.4) X10*3/uL Baso # (Auto) (0.0-0.2) X10*3/uL Abs Immat Gran (auto) (0.00-0.03) X10*3/uL Absolute Neuts (auto) (2.0-8.3) x10*3/uL Absolute Nucleated RBC (0.0-0.012) X10*3/uL Nucleated RBC % (auto) (0.0-0.2) /100WBC PT 13.1 (11.1-13.3) SEC INR 1.1 (0.9-1.1) D-Dimer High Sensitivty < 150 NG/ML Sodium (135-145) mmol/L Potassium (3.3-5.1) mmol/L Chloride (96-108) mmol/L Carbon Dioxide (22-29) mmol/L Anion Gap (12-20) BUN (9-16) mg/dL Creatinine (0.5-1.4) mg/dL Estim Creat Clear Calc Estimated GFR Random Glucose (60-115) mg/dL Calcium (8.4-10.2) mg/dL Troponin I High Sens (<3.5-35.0) ng/L B-Natriuretic Peptide 81 (<100) pg/mL COVID-19 (JAJA) Negative (Negative) COVID-19 Clin Com See Note 10/13/22 Range/Units 13:56 WBC (4.8-10.8) X10*3/uL RBC (4.60-5.80) X10*6/uL Hgb (14.0-18.0) g/dl Hct (42.0-52.0) % MCV (80.0-98.0) fL MCH (27.0-33.0) pg MCHC (31.0-36.0) g/dl RDW (11.0-16.0) % Plt Count (160-400) X10*3/uL MPV (9.4-12.4) fL Immature Gran % (Auto) (0.0-0.4) % Neut % (Auto) (45-73) % Lymph % (Auto) (20-40) % Bell % (Auto) (2-11) % Eos % (Auto) (0-4) % Baso % (Auto) (0-2) % Lymph # (Auto) (1.2-4.9) X10*3/uL Bell # (Auto) (0.1-1.2) X10*3/uL Eos # (Auto) (0.0-0.4) X10*3/uL Baso # (Auto) (0.0-0.2) X10*3/uL Abs Immat Gran (auto) (0.00-0.03) X10*3/uL Absolute Neuts (auto) (2.0-8.3) x10*3/uL Absolute Nucleated RBC (0.0-0.012) X10*3/uL Nucleated RBC % (auto) (0.0-0.2) /100WBC PT (11.1-13.3) SEC INR (0.9-1.1) D-Dimer High Sensitivty NG/ML Sodium (135-145) mmol/L Potassium (3.3-5.1) mmol/L Chloride (96-108) mmol/L Carbon Dioxide (22-29) mmol/L Anion Gap (12-20) BUN (9-16) mg/dL Creatinine (0.5-1.4) mg/dL Estim Creat Clear Calc Estimated GFR Random Glucose (60-115) mg/dL Calcium (8.4-10.2) mg/dL Troponin I High Sens < 2.7 (<3.5-35.0) ng/L B-Natriuretic Peptide (<100) pg/mL COVID-19 (JAJA) (Negative) COVID-19 Clin Com Independent Interpretation I performed an independent interpretation of an: EKG (Trachea rate of 79, MN varies, QT/QTC normal, EKG with AFib in left axis deviation with a right bundle-branch block, when compared to previous EKGs, no significant findings no signs of acute ischemia) and Plain X-Ray (XR/XR chest 1V IMPRESSION: Mild central vascular prominence without overt pulmonary edema, similar to previous. No acute process is otherwise seen.) Radiology Impression Discussion of test interpretation with radiology: I have reviewed the radiologist's reading. Core Measures AMI core measures followed: Yes Measure exclusions: not indicated Critical Care Time Critical Care Time Critical Care Time: Yes Total Critical Care Time: 35 Attestation: I attest to this time spent taking care of the patient, obtaining history, physical, reviewing labs, imaging, speaking to my attending, speaking to specialist. Discharge Plan Discharge Clinical Impression: Chest pain, Shortness of breath, A-fib Patient Disposition: Home, Self-Care Instructions: Chest Pain (DC), Shortness of Breath (ED) Additional Instructions: Take your medications as prescribed. If you were prescribed antibiotics today, it is important that you take your medication to their entirety, do not skip any doses, do not finish them early. Follow-up with your primary care provider this week. Please follow-up with cardiology as soon as possible Return to the emergency department with new or worsening symptoms. Such as fevers, chills, chest pain, shortness of breath, nausea, vomiting, dizziness, headache, vision changes, lethargy In case of emergency call 911 Prescriptions: No Action albuterol sulfate 90 mcg/actuation HFA aerosol inhaler 2 puff PO Q4-6H PRN (Reason: for wheezing) Qty: 51 3RF Anoro Ellipta 62.5-25 mcg/actuation blister with device 1 inh PO DAILY Qty: 60 3RF furosemide 20 mg tablet 20 mg PO DAILY atorvastatin 80 mg tablet 80 mg PO BEDTIME 90 Days Qty: 90 1RF methimazole 5 mg tablet 5 mg PO DAILY Qty: 30 5RF doxazosin 8 mg tablet 8 mg PO BEDTIME 30 Days Qty: 30 5RF metoprolol succinate 50 mg tablet extended release 24 hr 50 mg PO DAILY Qty: 90 1RF finasteride 5 mg tablet 5 mg PO DAILY 90 Days Qty: 90 1RF naproxen 500 mg tablet See Rx Instructions PO .COMPLEX 90 Days Qty: 225 0RF Rx Instructions: one tab in the am, 1.5 tabs in the pm PO; do not take with meloxicam pregabalin 150 mg capsule 150 mg PO TID 30 Days Qty: 90 2RF ropinirole 2 mg tablet 2 mg PO TID sildenafil 100 mg tablet 100 mg PO DAILY PRN (Reason: sexual activity) 10 Days Qty: 10 0RF Rx Instructions: administer 30 minutes to 4 hours before activity Eliquis 5 mg tablet 5 mg PO BID 30 Days Qty: 60 3RF duloxetine 60 mg capsule,delayed release(DR/EC) 60 mg PO DAILY methocarbamol 500 mg tablet 500 mg PO BEDTIME PRN mirabegron 25 mg tablet extended release 24 hr 25 mg PO DAILY 30 Days Qty: 30 1RF Referrals: [facility] – [place] Cardiovascular Services [Provider Group] - 2 days Physician,Unknown J [Primary Care Provider] - 2 days Stand Alone Forms: Work/School Release Interventions: ED Discharge Assessment Last Done: 10/13/22 15:04
[2022-10-13 11:53] LABS: MANUAL DIFF FLAG NO
[2022-10-13 11:55] LABS: Basophils Percent Auto 0.6 % (0-2); Eosinophils Absolute Auto 0.3 X10*3/uL (0.0-0.4); Eosinophils Percent Auto 3.9 % (0-4); Hematocrit 44.8 % (42.0-52.0); Imm Gran Abs Auto 0.02 X10*3/uL (0.00-0.03); Imm Gran Pct Auto 0.3 % (0.0-0.4); Lymphocytes Absolute Auto 1.8 X10*3/uL (1.2-4.9); Lymphocytes Percent Auto 28.3 % (20-40); Mean Corpuscular HGB Conc 33.5 g/dl (31.0-36.0); Mean Corpuscular Hemoglobin 34.2 pg (27.0-33.0); Mean Corpuscular Volume 102.1 fL (80.0-98.0); Monocytes Absolute Auto 0.5 X10*3/uL (0.1-1.2); Monocytes Percent Auto 7.7 % (2-11); Neutrophils Absolute Auto 3.8 x10*3/uL (2.0-8.3); Neutrophils Percent Auto 59.2 % (45-73); Platelet Count 236 X10*3/uL (160-400); Red Blood Count 4.39 X10*6/uL (4.60-5.80); Red Cell Distribution Width 13.2 % (11.0-16.0); White Blood Count 6.5 X10*3/uL (4.8-10.8)
[2022-10-13 12:10] LABS: Anion Gap 13 (12-20); Blood Urea Nitrogen 18 mg/dL (9-16); Calcium 9.2 mg/dL (8.4-10.2); Carbon Dioxide 27 mmol/L (22-29); Chloride 104 mmol/L (96-108); Creatinine Clr Calc Pharmacy 150.1; Estimated Glomerular Filt Rate > 60; Glucose Random 114 mg/dL (60-115); Potassium 4.2 mmol/L (3.3-5.1); Sodium 140 mmol/L (135-145)
[2022-10-13 12:13] LABS: INTERNATIONAL NORM RATIO 1.1 (0.9-1.1); Prothrombin Time 13.1 SEC (11.1-13.3)
[2022-10-13 12:15] LABS: B Type Natriuretic Peptide 81 pg/mL (<100)
[2022-10-13 12:18] LABS: D Dimer High Sensitivity < 150 NG/ML
[2022-10-13 12:20] LABS: Troponin-I High Sensitivity < 2.7 ng/L (<3.5-35.0)
[2022-10-13] MEDS: Morphine Sulfate 4 MG/ML CARTRIDGE IVPUSH (12:36)
[2022-10-13 12:50] LABS: COVID-19 Test Negative (Negative); IDNOW Serial# 08D9AD1C
[2022-10-13 14:27] LABS: Troponin-I High Sensitivity < 2.7 ng/L (<3.5-35.0)
--- NOTE | 2022-10-13 15:05 | PC.NURSE ---
Discharge plan reviewed with patient and who verbalized understanding
--- NOTE | 2022-10-13 15:43 | PM.IMHP ---
History of Present Illness Date of Service: 10/13/22 Attending physician on admission: Florina Chandler Chief Complaint: Chest pressure, sob at rest Pt is a 67-year-old male with a PMH significant for?AFib not on anticoagulation, lymphedema with chronic venous stasis, HTN, COPD on 2 L home O2, HTN, overactive bladder, and obesity class 3 who presents to the ED with?chest pain/pressure and worsening shortness of breath with exertion and at rest. Patient was recently diagnosed with AFib by his PCP 3-4 weeks ago and started Eliquis. After 2 weeks on Eliquis patient begin to notice his urine was brown. PCP ordered labs that found blood in the urine. Eliquis was then discontinued, last dose 7-10 days ago. PCP then ordered echocardiogram and Holter monitor, which patient wore up until this morning. Patient began noticing increased shortness of breath with exertion and at rest a couple of days ago. Has felt his heart ?fluttering? for the past week. This morning patient awoke he felt a sharp shooting pain that began on his left side under his breast that would radiate across his chest. States he also felt a ?stiffness and heaviness? on his chest that radiated to his left shoulder. Patient called Cardiology who then sent him to the emergency room for further evaluation. Patient also notes he has chronic osteoarthritis, particularly of his hands. While on Eliquis was not taking his naproxen and he noticed severe pain and reduced ROM in hands. Patient resumed taking naproxen once he was off Eliquis, says is now back to baseline with his osteoarthritis. Complains of chronic lower leg edema and chronic wounds on right leg, at baseline. He follows up with wound care clinic every week. Denies nausea, vomiting, diarrhea. No abdominal pain. Denies headache, vision changes. No change to bowel or bladder habits. In the ED patient was afebrile but tachypneic up to 24, setting up to 98% on 2 L NC. Labs were largely unremarkable: No leukocytosis. Electrolytes WNL. Serial troponins negative. BNP negative. Renal function baseline. CXR showed mild central vascular prominence without overt pulmonary edema, similar to previous. Otherwise no acute process is seen. EKG demonstrated atrial fibrillation without evidence of ST elevations or depressions. Pt was treated with morphine. Pt will be admitted to the hospital under observation on telemetry for further evaluation and monitoring of symptomatic AFib. Review of Systems Review of Systems: Chest pain/pressure, palpitations Increased shortness of breath at rest and exertion Chronic lower leg edema Chronic lower leg wounds Denies fever, chills, nausea, No abdominal pain [facility] Medical History Bladder outlet obstruction Chronic cystitis COPD (chronic obstructive pulmonary disease) COPD (chronic obstructive pulmonary disease) COPD (chronic obstructive pulmonary disease) COVID-19 MATUTE (dyspnea on exertion) Hereditary lymphedema History of diverticulitis History of umbilical hernia Injury of right rotator cuff Lymphedema Morbid obesity Morbid obesity JEFFRY (obstructive sleep apnea) JEFFRY on CPAP Respiratory failure with hypoxia Restless leg syndrome Restrictive lung disease Sensory neuropathy Traumatic complete tear of right rotator cuff Venous insufficiency Family History Father Arthritis Diabetes Mother Arthritis Kidney stones Family/Other Arthritis Sister No problems noted. Sister No problems noted. Son No problems noted. Surgical History History of appendectomy History of arthroscopy of left knee Hx of colonoscopy Social History Household Members: Spouse Household Members Other:: Floridalma [facility] Do you presently have visiting nurse or other home services: No Alcohol intake: current Alcohol intake frequency: 0-2 drinks per day Alcohol type: beer Patient Tobacco Use Status: Former Tobacco user Years Smoked: 30 years Smoked in Last 30 Days: No e-Cigarette/Vaping Use: Never Used Second Hand Smoke Exposure: No Use of substances other than those prescribed or required for medical reasons: Yes Substance Use Type: Marijuana Substance Use Frequency: Chronic Longstanding Last Used Substance: Just Prior to Admission Advance Directives: Yes Advance Directives on File: Yes Advance Directives Date on File: 05/16/20 Do you have thoughts of harming others: None Do you have a plan to hurt others: No Plan Recently lost weight without trying: No Nutrition Risks: No Nutritional Risk Poor oral hygiene: No service: No Current occupational status: retired 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 -[employer] Cognitive needs: No Hearing needs: No Vision needs: No Meds Allergies Allergy/AdvReac Type Severity Reaction Status Date / Time No Known Allergies Allergy Verified 10/13/22 11:03 [No Known Allergies*] Home Medications Medication Instructions Recorded Confirmed Last Taken Type duloxetine 60 mg capsule,delayed 60 mg PO DAILY 11/17/19 10/13/22 10/13/22 09:00 History release ropinirole 2 mg tablet 2 mg PO TID 05/16/20 10/13/22 10/13/22 09:00 History furosemide 20 mg tablet 20 mg PO DAILY 01/31/22 10/13/22 10/13/22 09:00 History methocarbamol 500 mg tablet 500 mg PO BEDTIME PRN arthritis 08/28/22 10/13/22 Unknown History albuterol sulfate 90 mcg/actuation 2 puff PO Q6H PRN for wheezing 10/13/22 10/13/22 Unknown History aerosol inhaler aspirin 81 mg tablet,delayed 81 mg PO DAILY 10/13/22 10/13/22 10/13/22 09:00 History release naproxen 500 mg tablet 500 mg PO DAILY 10/13/22 10/13/22 10/13/22 09:00 History naproxen 500 mg tablet 750 mg PO BEDTIME 10/13/22 10/13/22 10/12/22 History Physical Exam Vital Signs and Narrative: Vital Signs: Last Vital Signs Temp 98.1 F 10/13/22 11:00 Pulse 65 10/13/22 14:06 Resp 18 10/13/22 14:06 BP 106/62 10/13/22 14:06 Pulse Ox 98 10/13/22 14:06 O2 Del Method Nasal Cannula 10/13/22 14:06 O2 Flow Rate 2 10/13/22 14:06 Oxygen Flow Rate 3 10/13/22 11:00 BMI result Body Mass Index 51.1 Constitutional: Alert, in no acute distress. Mental Status: Oriented to person, place and time. Eyes: Pupils are equal, round, and reactive to light. Ear, Nose, and Throat: Oropharynx clear, mucous membranes moist. Ears and nose without deformities. Trachea midline. Respiratory: Clear to auscultation bilaterally. No wheezing, rales, or rhonchi. Cardiovascular: S1, S2 regular. No murmurs, rubs, or gallops. Gastrointestinal: Abdomen soft, non-tender, obese. Normal bowel sounds. Neurologic: Cranial nerves II-XII are grossly intact bilaterally. No focal neurological deficits. Moves all extremities spontaneously. Musculoskeletal: No cyanosis or clubbing. Extremities: Nonpitting bilateral edema of lower legs. Erythema and scaling secondary to chronic venous stasis bilaterally. Chronic appearing ulcerations on lower right leg with no signs of active infection. See picture below. Psychiatric: Normal mood and affect. Results Labs 10/13/22 11:48 10/13/22 11:48 Labs: Laboratory Results - last 24 hr 10/13/22 10/13/22 10/13/22 11:48 11:48 11:48 MCV 102.1 H MCH 34.2 H MCHC 33.5 RDW 13.2 Plt Count 236 MPV 10.0 Immature Gran % (Auto) 0.3 Neut % (Auto) 59.2 Lymph % (Auto) 28.3 [place] % (Auto) 7.7 Eos % (Auto) 3.9 Baso % (Auto) 0.6 Lymph # (Auto) 1.8 [place] # (Auto) 0.5 Eos # (Auto) 0.3 Baso # (Auto) 0.0 Abs Immat Gran (auto) 0.02 Absolute Neuts (auto) 3.8 Absolute Nucleated RBC 0.000 Nucleated RBC % (auto) 0.0 PT INR D-Dimer High Sensitivty Anion Gap 13 Estim Creat Clear Calc 150.1 Estimated GFR > 60 Random Glucose 114 Calcium 9.2 B-Natriuretic Peptide 81 COVID-19 (JAJA) COVID-19 Clin Com 10/13/22 10/13/22 11:49 12:29 MCV MCH MCHC RDW Plt Count MPV Immature Gran % (Auto) Neut % (Auto) Lymph % (Auto) [place] % (Auto) Eos % (Auto) Baso % (Auto) Lymph # (Auto) [place] # (Auto) Eos # (Auto) Baso # (Auto) Abs Immat Gran (auto) Absolute Neuts (auto) Absolute Nucleated RBC Nucleated RBC % (auto) PT 13.1 INR 1.1 D-Dimer High Sensitivty < 150 Anion Gap Estim Creat Clear Calc Estimated GFR Random Glucose Calcium B-Natriuretic Peptide COVID-19 (JAJA) Negative COVID-19 Clin Com See Note Imaging Radiologist's Impressions: Impressions Chest X-Ray 10/13/22 13:10 IMPRESSION: Mild central vascular prominence without overt pulmonary edema, similar to previous. No acute process is otherwise seen. Assessment and Plan (1) Chest pain: Status: Acute (2) Shortness of breath: Status: Acute (3) A-fib: Status: Acute (4) Palpitations: Status: Acute Plan Pt is a 67-year-old male with a PMH significant for?AFib not on anticoagulation, lymphedema with chronic venous stasis, HTN, COPD on 2 L home O2, HTN, overactive bladder, and obesity class 3 who presents to the ED with?chest pain/pressure and worsening shortness of breath with exertion and at rest. Pt will be admitted to the hospital under observation on telemetry for further evaluation and monitoring of symptomatic AFib. Symptomatic atrial fibrillation Patient diagnosed with AFib 3-4 weeks ago by PCP Patient with increased shortness of breath with exertion and at rest, chest pain/pressure, palpitations No longer on anticoagulation: Eliquis discontinued 7-10 days ago due to hematuria Echocardiogram 3 days ago on 10/10/2022 found mildly reduced LVEF of 40-50% with mild pulmonary hypertension Continue metoprolol Will hold off on resuming anticoagulation pending cardiology input Cardiology consult Monitor on telemetry Hematuria Patient with hematuria 1-2 weeks ago while on Eliquis Urine now clear yellow Follow up outpatient Osteoarthritis Continue home methocarbamol, naproxen Lymphedema/chronic lower leg edema Chronic ulcerations on right lower leg, no signs of active infection Continue furosemide Follow-up outpatient with [facility] Peripheral neuropathy Continue pregabalin, ropinirole Hyperthyroidism Continue methimazole Will check TSH, T4 Obesity class 3 Weight loss encouraged Full Code Attending:?Dr. Chandler DVT Prophylaxis: Lovenox Pt will be admitted to the hospital under observation on telemetry for treatment and further evaluation of symptomatic AFib with cardiac monitoring and specialist consultation. Time Spent With Patient Time: Total time managing care of this patient today ____ minutes. Quality Stroke Does the patient have a stroke diagnosis?: No VTE Prior VTE?: No VTE Risk Level:: Medical - moderate - high VTE Device Contraindication: Treatment Not Indicated VTE Drug Contraindication: N/A - Med Ordered
--- NOTE | 2022-10-13 15:44 | PHA.MEDREC ---
Addendum entered by Eb Cornejo 10/13/22 15:44: Patient is not on Eliquis because of blood occurring in his urine. Per patient, MD then stopped Eliquis and hard put him back onto aspirin 81mg daily. Original Note: Pharmacy Consult ? Medication Reconciliation Pharmacy has completed the medication reconciliation. Spoke to patient to confirm meds.
[2022-10-13] MEDS: Metoprolol Succinate ER 50 MG TAB.ER.24H PO (17:43)
[2022-10-13] MEDS: Pregabalin 150 MG CAPSULE PO ×2 (17:43→20:40)
[2022-10-13] MEDS: Enoxaparin Sodium 40 MG/0.4 ML SYRINGE SUBCUT (17:44)
[2022-10-13 17:51] LABS: TSH reflex Free T4 3.21 uIU/mL (0.32-4.0)
[2022-10-13] MEDS: methIMAzole 5 MG TABLET PO (18:40)
[2022-10-13] MEDS: rOPINIRole HCL 2 MG TABLET PO ×2 (18:40→23:36)
[2022-10-13] MEDS: Mirabegron 25 MG TAB.ER.24H PO (18:40)
[2022-10-13] MEDS: Doxazosin Mesylate 2 MG TABLET 8 MG PO (20:40)
[2022-10-13] MEDS: NaPROXEN 250 MG TABLET 750 MG PO (20:40)
[2022-10-13] MEDS: Atorvastatin Calcium 80 MG TABLET PO (20:41)
--- NOTE | 2022-10-13 22:30 | PC.NURSE ---
Pharmacy call for 2100 dose of Requip, medication will be delivered by pharmacy
[2022-10-14] VITALS (7 sets, daily range): BP systolic 103–144; BP diastolic 65–74; PULSE 68–95; RESP 18–20; TEMP 36.1–36.3; O2SAT 96–98
[2022-10-14] MEDS: oxyCODONE HCl Immed Release 5 MG TABLET PO (00:47)
[2022-10-14] MEDS: 0.9 % Sodium Chloride Flush 3 ML SYRINGE IVFLUSH ×4 (00:48→21:03)
[2022-10-14] MEDS: Enoxaparin Sodium 40 MG/0.4 ML SYRINGE SUBCUT (05:06)
[2022-10-14] MEDS: Metoprolol Succinate ER 50 MG TAB.ER.24H PO (09:28)
[2022-10-14] MEDS: Pregabalin 150 MG CAPSULE PO ×3 (09:28→21:04)
[2022-10-14] MEDS: Aspirin Enteric Coated 81 MG TABLET.DR PO (09:28)
[2022-10-14] MEDS: Finasteride 5 MG TABLET PO (09:28)
[2022-10-14] MEDS: methIMAzole 5 MG TABLET PO (09:28)
[2022-10-14] MEDS: DULoxetine HCl 60 MG CAPSULE.DR PO (09:28)
[2022-10-14] MEDS: rOPINIRole HCL 2 MG TABLET PO ×3 (09:28→21:04)
[2022-10-14] MEDS: Furosemide 40 MG/4 ML VIAL IVPUSH ×2 (09:40→18:11)
--- NOTE | 2022-10-14 10:20 | MHC.CM.PN ---
CM met with Patient and his /HCP at bedside. Patient lives on a condo with his and he uses a cane to assist with mobility. Home/resume home O2 through [employer] is the goal and CM has initiated and will follow for dc planning. PCP is Dr. Diego Augustine.
[2022-10-14 11:50] LABS: C Reactive Protein 0.73 mg/dL (< or = 0.50)
[2022-10-14 11:57] LABS: Rheumatoid Factor < 13.0 IU/mL (<15.0)
[2022-10-14 12:02] LABS: Erythrocyte Sedimentation Rate 5 MM/HR (0-15)
[2022-10-14] MEDS: Apixaban 5 MG TABLET PO ×2 (12:38→21:05)
[2022-10-14] MEDS: Mirabegron 25 MG TAB.ER.24H PO (12:38)
[2022-10-14] MEDS: predniSONE 5 MG TABLET PO (12:38)
--- NOTE | 2022-10-14 12:44 | P.CONCA_ITS ---
History of Present Illness History of Present Illness Date of Service: 10/14/22 Requesting physician: Florina Chandler Chief complaint: Chest pain, shortness of breath, Afib Narrative: 67-year-old gentleman who was last seen by me in April 2021. He has background history of COPD and follows with pulmonology. He was seen for dyspnea on exertion with worsening in his shortness of breath after COVID 19 infection in April 2020. He was on supplemental oxygen after that. He has chronic lymphedema. He also has been following with pulmonary rehabilitation. He is now presenting because over the last few weeks he was diagnosed with atrial fibrillation. He said he felt more short of breath over the last few months and has gained significant amount of weight and is currently 100 lb above his weight last year by his report. He has been experiencing shortness of breath and over the last few days had worsening shortness of breath and decided to come to the emergency department. He was noticed to be in AFib as before. He was also noticed to be volume o verloaded and has been on IV Lasix. He said he was started on apixaban by his primary care physician but he started experiencing some hematuria and apixaban was discontinued. He said after stopping apixaban his hematuria improved. He previously had issues with hematuria a year ago when he received antibiotics. His denying any palpitations currently. He does have shortness of breath with activity. Is denying any significant orthopnea. He had 1 episode of chest pain also which was in a electric shock-like sensation on the left side of the chest. This lasted for few seconds. [facility] Past Medical History Medical History Bladder outlet obstruction Chronic cystitis COPD (chronic obstructive pulmonary disease) COPD (chronic obstructive pulmonary disease) COPD (chronic obstructive pulmonary disease) COVID-19 MATUTE (dyspnea on exertion) Hereditary lymphedema History of diverticulitis History of umbilical hernia Injury of right rotator cuff Lymphedema Morbid obesity Morbid obesity JEFFRY (obstructive sleep apnea) JEFFRY on CPAP Respiratory failure with hypoxia Restless leg syndrome Restrictive lung disease Sensory neuropathy Traumatic complete tear of right rotator cuff Venous insufficiency Family History Family History Father Arthritis Diabetes Mother Arthritis Kidney stones Family/Other Arthritis Sister No problems noted. Sister No problems noted. Son No problems noted. Surgical History Surgical History History of appendectomy History of arthroscopy of left knee Hx of colonoscopy Social History Social History Household Members: Spouse Household Members Other:: Floridalma [facility] Do you presently have visiting nurse or other home services: No Alcohol intake: current Alcohol intake frequency: 0-2 drinks per day Alcohol type: beer Patient Tobacco Use Status: Former Tobacco user Years Smoked: 30 years Smoked in Last 30 Days: No e-Cigarette/Vaping Use: Never Used Second Hand Smoke Exposure: No Use of substances other than those prescribed or required for medical reasons: Yes Substance Use Type: Marijuana Substance Use Frequency: Chronic Longstanding Last Used Substance: Just Prior to Admission Advance Directives: Yes Advance Directives on File: Yes Advance Directives Date on File: 05/16/20 Do you have thoughts of harming others: None Do you have a plan to hurt others: No Plan Recently lost weight without trying: No Nutrition Risks: No Nutritional Risk Poor oral hygiene: No service: No Current occupational status: retired 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 [employer] Cognitive needs: No Hearing needs: No Vision needs: No Meds Allergies Allergy/AdvReac Type Severity Reaction Status Date / Time No Known Allergies Allergy Verified 10/13/22 11:03 [No Known Allergies*] Active Medications: Current Medications Acetaminophen (Acetaminophen 325 Mg Tablet) 650 mg PO Q6H PRN PRN Reason: Pain, Mild (Pain Scale 1-3) Albuterol Sulfate (Albuterol Sulfate 90 Mcg 8 Gm Inhaler) 2 puff INHALE Q6H PRN PRN Reason: for wheezing Apixaban (Apixaban 5 Mg Tablet) 5 mg PO BID MICHELLE Last Admin: 10/14/22 12:38 Dose: 5 mg Atorvastatin Calcium (Atorvastatin Calcium 80 Mg Tablet) 80 mg PO BEDTIME MICHELLE Last Admin: 10/13/22 20:41 Dose: 80 mg Docusate Sodium (Docusate Sodium 100 Mg Capsule) 100 mg PO DAILY PRN PRN Reason: Constipation Doxazosin Mesylate (Doxazosin Mesylate 2 Mg Tablet) 8 mg PO BEDTIME MICHELLE; Protocol Last Admin: 10/13/22 20:40 Dose: 8 mg Duloxetine HCl (Duloxetine Hcl 60 Mg Capsule.Dr) 60 mg PO DAILY [facility] Last Admin: 10/14/22 09:28 Dose: 60 mg Finasteride (Finasteride 5 Mg Tablet) 5 mg PO DAILY [facility] Last Admin: 10/14/22 09:28 Dose: 5 mg Furosemide (Furosemide 40 Mg/4 Ml Vial) 40 mg IVPUSH BID@0900,1800 [facility]; Protocol Last Admin: 10/14/22 09:40 Dose: 40 mg Methimazole (Methimazole 5 Mg Tablet) 5 mg PO DAILY [facility] Last Admin: 10/14/22 09:28 Dose: 5 mg Methocarbamol (Methocarbamol 500 Mg Tablet) 500 mg PO BEDTIME PRN PRN Reason: Pain, Mild (Pain Scale 1-3) Metoprolol Succinate (Metoprolol Succinate Er 50 Mg Tab.Er.24h) 50 mg PO DAILY [facility]; Protocol Last Admin: 10/14/22 09:28 Dose: 50 mg Mirabegron (Mirabegron 25 Mg Tab.Er.24h) 25 mg PO DAILY [facility] Last Admin: 10/14/22 12:38 Dose: 25 mg Non-Formulary Medication (Umeclidinium-Vilanterol [Anoro Ellipta]) 1 inhalation PO DAILY [facility] Ondansetron HCl (Ondansetron Hcl 4 Mg/2 Ml Vial) 4 mg IVPUSH Q8H PRN PRN Reason: Nausea and Vomiting Oxycodone HCl (Oxycodone Hcl Immed Release 5 Mg Tablet) 2.5 mg PO Q6H PRN PRN Reason: Pain, Moderate(Pain Scale 4-6) Prednisone (Prednisone 5 Mg Tablet) 5 mg PO DAILY [facility] Last Admin: 10/14/22 12:38 Dose: 5 mg Pregabalin (Pregabalin 150 Mg Capsule) 150 mg PO TID [facility] Last Admin: 10/14/22 09:28 Dose: 150 mg Ropinirole HCl (Ropinirole Hcl 2 Mg Tablet) 2 mg PO TID [facility] Last Admin: 10/14/22 09:28 Dose: 2 mg Sodium Chloride (0.9 % Sodium Chloride Flush 3 Ml Syringe) 3 ml IVFLUSH QSHIFT [facility] Last Admin: 10/14/22 09:35 Dose: 3 ml Home Medications Medication Instructions Recorded Confirmed Last Taken Type duloxetine 60 mg capsule,delayed 60 mg PO DAILY 11/17/19 10/13/22 10/13/22 09:00 History release ropinirole 2 mg tablet 2 mg PO TID 05/16/20 10/13/22 10/13/22 09:00 History furosemide 20 mg tablet 20 mg PO DAILY 01/31/22 10/13/22 10/13/22 09:00 History methocarbamol 500 mg tablet 500 mg PO BEDTIME PRN arthritis 08/28/22 10/13/22 Unknown History albuterol sulfate 90 mcg/actuation 2 puff PO Q6H PRN for wheezing 10/13/22 10/13/22 Unknown History aerosol inhaler aspirin 81 mg tablet,delayed 81 mg PO DAILY 10/13/22 10/13/22 10/13/22 09:00 History release naproxen 500 mg tablet 500 mg PO DAILY 10/13/22 10/13/22 10/13/22 09:00 History naproxen 500 mg tablet 750 mg PO BEDTIME 10/13/22 10/13/22 10/12/22 History Physical Exam Vital Signs: Vital Signs: Last Vital Signs Temp 97.2 F 10/14/22 11:10 Pulse 80 10/14/22 11:10 Resp 20 10/14/22 11:10 BP 118/70 10/14/22 11:10 Pulse Ox 96 10/14/22 11:10 O2 Del Method Nasal Cannula 10/14/22 11:10 O2 Flow Rate 2 10/14/22 11:10 Oxygen Flow Rate 3 10/13/22 11:00 BMI result Body Mass Index 51.1 GENERAL APPEARANCE: in no acute distress, on supplemental oxygen, morbidly obese. SKIN: no suspicious lesions, warm and dry. HEART: no murmurs, irregularly irregular rhythm. Positive JVD LUNGS: clear to auscultation bilaterally. ABDOMEN: normal, bowel sounds present, soft, nontender. EXTREMITIES: 2 to 3+ non pitting edema bilateral LE. PERIPHERAL PULSES: equal. NEUROLOGIC: nonfocal, alert and oriented. PSYCH: mood/affect full range. Objective Labs and Meds 10/13/22 11:48 10/13/22 11:48 Lab results: Laboratory Results - last 24 hr 10/13/22 10/13/22 10/13/22 11:48 12:29 13:56 ESR Troponin I High Sens < 2.7 C-Reactive Protein TSH 3.21 Rheumatoid Factor COVID-19 (JAJA) Negative COVID-19 Clin Com See Note 10/14/22 10/14/22 10/14/22 11:15 11:15 11:15 ESR 5 Troponin I High Sens C-Reactive Protein 0.73 H TSH Rheumatoid Factor < 13.0 COVID-19 (JAJA) COVID-19 Clin Com Imaging Radiologist's impression: Impressions Chest X-Ray 10/13/22 13:10 IMPRESSION: Mild central vascular prominence without overt pulmonary edema, similar to previous. No acute process is otherwise seen. Assessment and Plan (1) Chest pain: Status: Acute (2) A-fib: Status: Acute (3) Congestive heart failure: Status: Acute Plan Pleasant 67 gentleman with multiple medical issues presenting for new diagnosis of atrial fibrillation for which he received apixaban and developed hematuria with subsequent discontinuation of apixaban. He has been short of breath more than usual and appears to be in congestive heart failure currently. Agree with IV diuretics. He has been off anticoagulation but has not had any further bleeding in the last few weeks. His echocardiogram has shown EF of 40-50% and it was a suboptimal study. In any case clinically appears to be in heart failure. I think we diurese him and potentially put him back on apixaban. If no further hematuria happens then in the coming weeks we can discuss about outpatient cardioversion. He can see urology in the meantime also to understand any other measures can be done to avoid hematuria. He has chronic cystitis which could be the underlying problem. Chest pain is noncardiac. We will follow along with you. Thank you for allowing me to participate in the care of your patient. Please feel free to contact me if you have any questions. Time Spent With Patient Time: Total time managing care of this patient today ____ minutes. Procedures Date of Service Date of Service: 10/14/22
--- NOTE | 2022-10-14 13:33 | HO.PM.IMPN ---
Subjective Subjective Date of Service: 10/14/22 Interval History: Seen and evaluated this morning Denies any fever or chills Still reporting SOB and edema Urine is clear while on Lovenox DVT PPx Review of Systems Review of Systems: Yes all other systems are reviewed and are negative Physical Exam Vital Signs: Vital Signs: Last Vital Signs Temp 97.2 F 10/14/22 11:10 Pulse 80 10/14/22 11:10 Resp 20 10/14/22 11:10 BP 118/70 10/14/22 11:10 Pulse Ox 96 10/14/22 11:10 O2 Del Method Nasal Cannula 10/14/22 11:10 O2 Flow Rate 2 10/14/22 11:10 Oxygen Flow Rate 3 10/13/22 11:00 BMI result Body Mass Index 51.1 Const: Other: Constitutional : Awake, interactive, not in distress Neck : Normal inspection, Supple Cardiovascular : RRR, no JVP, +3 non pitting lower extremity edema bilaterally Respiratory : decrease bilateral air entry, no crackles, scattered expiratory, on 2L O2 Gastrointestinal: soft, lax, Normal bowel sounds, Non tender Skin : Warm, Dry, Erythema and scaling secondary to chronic venous stasis bilaterally.? Chronic appearing ulcerations on lower right leg with no signs of active infection Neurological : Alert & oriented x3, No focal deficit Objective Data Active Medications Acetaminophen (Acetaminophen 325 Mg Tablet) 650 mg PO Q6H PRN PRN Reason: Pain, Mild (Pain Scale 1-3) Albuterol Sulfate (Albuterol Sulfate 90 Mcg 8 Gm Inhaler) 2 puff INHALE Q6H PRN PRN Reason: for wheezing Apixaban (Apixaban 5 Mg Tablet) 5 mg PO BID [facility] Last Admin: 10/14/22 12:38 Dose: 5 mg Documented By: LISA Atorvastatin Calcium (Atorvastatin Calcium 80 Mg Tablet) 80 mg PO BEDTIME [facility] Last Admin: 10/13/22 20:41 Dose: 80 mg Documented By: ADRIEL Docusate Sodium (Docusate Sodium 100 Mg Capsule) 100 mg PO DAILY PRN PRN Reason: Constipation Doxazosin Mesylate (Doxazosin Mesylate 2 Mg Tablet) 8 mg PO BEDTIME [facility]; Protocol Last Admin: 10/13/22 20:40 Dose: 8 mg Documented By: ADRIEL Duloxetine HCl (Duloxetine Hcl 60 Mg Capsule.) 60 mg PO DAILY [facility] Last Admin: 10/14/22 09:28 Dose: 60 mg Documented By: LISA Finasteride (Finasteride 5 Mg Tablet) 5 mg PO DAILY [facility] Last Admin: 10/14/22 09:28 Dose: 5 mg Documented By: LISA Furosemide (Furosemide 40 Mg/4 Ml Vial) 40 mg IVPUSH BID@0900,1800 [facility]; Protocol Last Admin: 10/14/22 09:40 Dose: 40 mg Documented By: LISA Methimazole (Methimazole 5 Mg Tablet) 5 mg PO DAILY [facility] Last Admin: 10/14/22 09:28 Dose: 5 mg Documented By: LISA Methocarbamol (Methocarbamol 500 Mg Tablet) 500 mg PO BEDTIME PRN PRN Reason: Pain, Mild (Pain Scale 1-3) Metoprolol Succinate (Metoprolol Succinate Er 50 Mg Tab.Er.24h) 50 mg PO DAILY [facility]; Protocol Last Admin: 10/14/22 09:28 Dose: 50 mg Documented By: LISA Mirabegron (Mirabegron 25 Mg Tab.Er.24h) 25 mg PO DAILY [facility] Last Admin: 10/14/22 12:38 Dose: 25 mg Documented By: LISA Non-Formulary Medication (Umeclidinium-Vilanterol [Anoro Ellipta]) 1 inhalation PO DAILY [facility] Ondansetron HCl (Ondansetron Hcl 4 Mg/2 Ml Vial) 4 mg IVPUSH Q8H PRN PRN Reason: Nausea and Vomiting Oxycodone HCl (Oxycodone Hcl Immed Release 5 Mg Tablet) 2.5 mg PO Q6H PRN PRN Reason: Pain, Moderate(Pain Scale 4-6) Prednisone (Prednisone 5 Mg Tablet) 5 mg PO DAILY [facility] Last Admin: 10/14/22 12:38 Dose: 5 mg Documented By: LISA Pregabalin (Pregabalin 150 Mg Capsule) 150 mg PO TID [facility] Last Admin: 10/14/22 09:28 Dose: 150 mg Documented By: LISA Ropinirole HCl (Ropinirole Hcl 2 Mg Tablet) 2 mg PO TID [facility] Last Admin: 10/14/22 09:28 Dose: 2 mg Documented By: LISA Sodium Chloride (0.9 % Sodium Chloride Flush 3 Ml Syringe) 3 ml IVFLUSH QSHIFT [facility] Last Admin: 10/14/22 09:35 Dose: 3 ml Documented By: LISA Labs 10/13/22 11:48 10/13/22 11:48 Labs: Laboratory Results - last 24 hr 10/13/22 10/14/22 10/14/22 11:48 11:15 11:15 ESR 5 C-Reactive Protein 0.73 H TSH 3.21 Rheumatoid Factor 10/14/22 11:15 ESR C-Reactive Protein TSH Rheumatoid Factor < 13.0 Assessment and Plan (1) Congestive heart failure: Status: Acute (2) Chest pain: Status: Acute (3) Shortness of breath: Status: Acute (4) A-fib: Status: Acute (5) Lymphedema: Status: Acute Plan Pt is a 67-year-old male with a PMH significant for?AFib not on anticoagulation, lymphedema with chronic venous stasis, HTN, COPD on 2 L home O2, HTN, overactive bladder, and obesity class 3 who presents to the ED with?chest pain/pressure and worsening shortness of breath with exertion and at rest. Pt will be admitted to the hospital under observation on telemetry for further evaluation and monitoring of symptomatic AFib. Symptomatic atrial fibrillation Hold on cardioversion in the near future as he needs to be on AC residential Treat fluid overload Start Eliquis, DC ASA per cardiology Continue metoprolol Cardiology following Monitor on telemetry Congestive heart failure with low EF Echocardiogram 3 days ago on 10/10/2022 found mildly reduced LVEF of 40-50% with mild pulmonary hypertension To treat with IV lasix I\O monitor BMP Hx of Hematuria Patient had to stop Eliquis for hematuria, to start it and monitor response and need of Urology eval Prev Uro eval for hematuria: chronic cystitis and was prescribed Bactrim PPx Urine now clear yellow Osteoarthritis Continue home methocarbamol DC Naproxen, start small dose prednisone and Oxycodone with Tylenol Lymphedema/chronic lower leg edema Chronic ulcerations on right lower leg, no signs of active infection Continue furosemide Wound care eval Peripheral neuropathy Continue pregabalin, ropinirole Hyperthyroidism Continue methimazole low TSH, T4 Obesity class 3 Weight loss encouraged Full Code DVT Prophylaxis: Lovenox Patient needs overnight hospital stay for treatment of symptomatic AFib, CHF \and specialist consultation. Time Spent With Patient Time: Total time managing care of this patient today ____ minutes. Quality Stroke Does the patient have a stroke diagnosis?: No VTE Prior VTE?: No VTE Risk Level:: Medical - moderate - high VTE Device Contraindication: Treatment Not Indicated VTE Drug Contraindication: N/A - Med Ordered
--- NOTE | 2022-10-14 15:22 | MHC.CM.PN ---
Patient has been switched from OBSERVATION to INPATIENT; CM met with Patient at bedside and provided him with the original IMM and placed a copy on the chart.
[2022-10-14] MEDS: oxyCODONE HCl Immed Release 5 MG TABLET 2.5 MG PO ×2 (15:37→23:02)
[2022-10-14] MEDS: Acetaminophen 325 MG TABLET 975 MG PO ×2 (15:38→21:04)
--- NOTE | 2022-10-14 16:17 | HO.WOUND ---
Addendum entered by Esperanza Chandler 10/15/22 14:53: Change dressings every other day. If drainage increases, may increase the frequency to daily. Original Note: Wound Care Consult Reason for consult: Chronic right leg wound, sees wound outpatient Patient is actively being seen at [facility]. He is being seen for venous ulcers of his right leg. Patient was in bed during the consult. Wounds were open to air. Serous drainage on the skin. There is a cluster of 3 open areas on his right anterior lower leg and a cluster of 2 open areas on his right lateral post ankle. The right anterior leg wound bed was large red granular with a small amount of fibrin/slough. Wound edges were attached. Periwound was dry and scarred with hemosiderin staining of the skin. Leg was edematous but could palpate pulses. Skin was cool. Wound measured 3.2cm x 3.2cm x0.1cm. Wound on the right lateral post ankle was large red granular tissue. Wound edges were attached. Periwound was dry. Patient did say this wound was tender and had a hard time sleeping because of it. This is a newer area that was not present when at wound care. Wound measured 1.7cm x 1.7cm x 0.1cm. Areas cleansed with sea clens wound cleanser. Zinc barrier cream applied to the periwounds. Hydrofera blue was being used at wound care but this is not available while patient is inpatient. For now, alginate ag was cut to wound sizes and applied. The right ankle wound was covered with a foam border to provide some cushioning as well as not constricting with roll gauze. The leg wound was secured with roll gauze and tape. Rickie wrap used for compression. Recommendation: Cleanse areas with sea clens wound cleanser or normal saline. Apply zinc barrier cream to the periwounds. Cut alginate ag to wound sizes and apply to wound beds. Cover the right ankle wound with a foam border and secure the leg wound with roll gauze and tape. Rickie wrap from above the toes to below the knee to aid in compression. If the left leg is still swollen, rickie wraps may be applied also. Elevate legs as much as possible. Walking would also be good for the calf muscle action to help with fluid movement if patient can tolerate. Patient does have a upcoming appointment on Friday, 10/18. If patient is still admitted, patient can call and reschedule, if not will follow up and reevaluate at that time. If there are any questions or concern, please feel free and reconsult wound care.
[2022-10-14] MEDS: Doxazosin Mesylate 2 MG TABLET 8 MG PO (21:04)
[2022-10-14] MEDS: Atorvastatin Calcium 80 MG TABLET PO (21:04)
[2022-10-14] MEDS: methocarbamoL 500 MG TABLET PO (23:02)
[2022-10-15 03:12] VITALS: BP 122/68; PULSE 72; RESP 20; TEMP 36.1; O2SAT 95
[2022-10-15 05:53] LABS: Hematocrit 46.6 % (42.0-52.0); Hemoglobin 15.7 g/dl (14.0-18.0); Mean Corpuscular HGB Conc 33.7 g/dl (31.0-36.0); Mean Corpuscular Hemoglobin 33.6 pg (27.0-33.0); Mean Corpuscular Volume 99.8 fL (80.0-98.0); Platelet Count 243 X10*3/uL (160-400); Red Blood Count 4.67 X10*6/uL (4.60-5.80); Red Cell Distribution Width 13.2 % (11.0-16.0); White Blood Count 7.3 X10*3/uL (4.8-10.8)
[2022-10-15 06:15] LABS: Anion Gap 14 (12-20); Blood Urea Nitrogen 17 mg/dL (9-16); Calcium 9.1 mg/dL (8.4-10.2); Carbon Dioxide 25 mmol/L (22-29); Chloride 104 mmol/L (96-108); Creatinine Clr Calc Pharmacy 155.3; Estimated Glomerular Filt Rate > 60; Glucose Random 104 mg/dL (60-115); Potassium 3.9 mmol/L (3.3-5.1); Sodium 139 mmol/L (135-145)
[2022-10-15 06:17] LABS: B Type Natriuretic Peptide 59 pg/mL (<100)
[2022-10-15 07:30] VITALS: BP 139/66; PULSE 70; RESP 18; TEMP 36; O2SAT 97
--- NOTE | 2022-10-15 10:05 | P.CONOP_ITS ---
History of Present Illness HPI Consult date: 10/15/22 Chief complaint: Chest pain, shortness of breath, Afib Narrative: 67 yo male admitted to the medical service for CHF exacerbation and Afib. He was scheduled to see me on 10/16/22 in the office for a right knee steroid injection. He is unable to attend this appt and continues to have worsening knee pain which is limiting this ADLs. Review of Systems Constitutional: Constitutional: Reports as per [facility] Past Medical History Medical History Bladder outlet obstruction Chronic cystitis COPD (chronic obstructive pulmonary disease) COPD (chronic obstructive pulmonary disease) COPD (chronic obstructive pulmonary disease) COVID-19 MATUTE (dyspnea on exertion) Hereditary lymphedema History of diverticulitis History of umbilical hernia Injury of right rotator cuff Lymphedema Morbid obesity Morbid obesity JEFFRY (obstructive sleep apnea) JEFFRY on CPAP Respiratory failure with hypoxia Restless leg syndrome Restrictive lung disease Sensory neuropathy Traumatic complete tear of right rotator cuff Venous insufficiency Family History Family History Father Arthritis Diabetes Mother Arthritis Kidney stones Family/Other Arthritis Sister No problems noted. Sister No problems noted. Son No problems noted. Surgical History Surgical History History of appendectomy History of arthroscopy of left knee Hx of colonoscopy Social History Social History Household Members: Spouse Household Members Other:: Floridalma Housing: [facility] Do you presently have visiting nurse or other home services: No Alcohol intake: current Alcohol intake frequency: 0-2 drinks per day Alcohol type: beer Patient Tobacco Use Status: Former Tobacco user Years Smoked: 30 years Smoked in Last 30 Days: No e-Cigarette/Vaping Use: Never Used Second Hand Smoke Exposure: No Use of substances other than those prescribed or required for medical reasons: Yes Substance Use Type: Marijuana Substance Use Frequency: Chronic Longstanding Last Used Substance: Just Prior to Admission Currently Displaying Signs/Symptoms of Drug Intoxication Withdrawal: No Advance Directives: Yes Advance Directives on File: Yes Advance Directives Date on File: 05/16/20 Do you have thoughts of harming others: None Do you have a plan to hurt others: No Plan Recently lost weight without trying: No Nutrition Risks: No Nutritional Risk Poor oral hygiene: No service: No Current occupational status: retired 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 [employer] Cognitive needs: No Hearing needs: No Vision needs: No Meds Allergies Allergy/AdvReac Type Severity Reaction Status Date / Time No Known Allergies Allergy Verified 10/13/22 11:03 [No Known Allergies*] Active Medications: Current Medications Acetaminophen (Acetaminophen 325 Mg Tablet) 975 mg PO TID [facility] Last Admin: 10/14/22 21:04 Dose: 975 mg Albuterol Sulfate (Albuterol Sulfate 90 Mcg 8 Gm Inhaler) 2 puff INHALE Q6H PRN PRN Reason: for wheezing Apixaban (Apixaban 5 Mg Tablet) 5 mg PO BID [facility] Last Admin: 10/14/22 21:05 Dose: 5 mg Atorvastatin Calcium (Atorvastatin Calcium 80 Mg Tablet) 80 mg PO BEDTIME [facility] Last Admin: 10/14/22 21:04 Dose: 80 mg Docusate Sodium (Docusate Sodium 100 Mg Capsule) 100 mg PO DAILY PRN PRN Reason: Constipation Doxazosin Mesylate (Doxazosin Mesylate 2 Mg Tablet) 8 mg PO BEDTIME [facility]; Pro tocol Last Admin: 10/14/22 21:04 Dose: 8 mg Duloxetine HCl (Duloxetine Hcl 60 Mg Capsule.Dr) 60 mg PO DAILY [facility] Last Admin: 10/14/22 09:28 Dose: 60 mg Finasteride (Finasteride 5 Mg Tablet) 5 mg PO DAILY [facility] Last Admin: 10/14/22 09:28 Dose: 5 mg Furosemide (Furosemide 40 Mg/4 Ml Vial) 40 mg IVPUSH BID@0900,1800 [facility]; Protocol Last Admin: 10/14/22 18:11 Dose: 40 mg Methimazole (Methimazole 5 Mg Tablet) 5 mg PO DAILY [facility] Last Admin: 10/14/22 09:28 Dose: 5 mg Methocarbamol (Methocarbamol 500 Mg Tablet) 500 mg PO BEDTIME PRN PRN Reason: Pain, Mild (Pain Scale 1-3) Last Admin: 10/14/22 23:02 Dose: 500 mg Methylprednisolone Acetate (Methylprednisolone Acetate 80 Mg Vial) 80 mg INTRAARTIC ONCE ONE Stop: 10/15/22 10:16 Metoprolol Succinate (Metoprolol Succinate Er 50 Mg Tab.Er.24h) 50 mg PO DAILY [facility]; Protocol Last Admin: 10/14/22 09:28 Dose: 50 mg Mirabegron (Mirabegron 25 Mg Tab.Er.24h) 25 mg PO DAILY [facility] Last Admin: 10/14/22 12:38 Dose: 25 mg Ondansetron HCl (Ondansetron Hcl 4 Mg/2 Ml Vial) 4 mg IVPUSH Q8H PRN PRN Reason: Nausea and Vomiting Oxycodone HCl (Oxycodone Hcl Immed Release 5 Mg Tablet) 2.5 mg PO Q6H PRN PRN Reason: Pain, Moderate(Pain Scale 4-6) Last Admin: 10/14/22 23:02 Dose: 2.5 mg Prednisone (Prednisone 5 Mg Tablet) 5 mg PO DAILY [facility] Last Admin: 10/14/22 12:38 Dose: 5 mg Pregabalin (Pregabalin 150 Mg Capsule) 150 mg PO TID [facility] Last Admin: 10/14/22 21:04 Dose: 150 mg Ropinirole HCl (Ropinirole Hcl 2 Mg Tablet) 2 mg PO TID [facility] Last Admin: 10/14/22 21:04 Dose: 2 mg Sodium Chloride (0.9 % Sodium Chloride Flush 3 Ml Syringe) [facility] Admin: 10/14/22 21:03 Dose: 3 ml Home Medications Medication Instructions Recorded Confirmed Last Taken Type duloxetine 60 mg capsule,delayed 60 mg PO DAILY 11/17/19 10/13/22 10/13/22 09:00 History release ropinirole 2 mg tablet 2 mg PO TID 05/16/20 10/13/22 10/13/22 09:00 History furosemide 20 mg tablet 20 mg PO DAILY 01/31/22 10/13/22 10/13/22 09:00 History methocarbamol 500 mg tablet 500 mg PO BEDTIME PRN arthritis 08/28/22 10/13/22 Unknown History albuterol sulfate 90 mcg/actuation 2 puff PO Q6H PRN for wheezing 10/13/22 10/13/22 Unknown History aerosol inhaler aspirin 81 mg tablet,delayed 81 mg PO DAILY 10/13/22 10/13/22 10/13/22 09:00 History release naproxen 500 mg tablet 500 mg PO DAILY 10/13/22 10/13/22 10/13/22 09:00 History naproxen 500 mg tablet 750 mg PO BEDTIME 10/13/22 10/13/22 10/12/22 History Physical Exam Vital Signs: Vital Signs: Last Vital Signs Temp 96.8 F 10/15/22 07:30 Pulse 70 10/15/22 07:30 Resp 18 10/15/22 07:30 BP 139/66 10/15/22 07:30 Pulse Ox 97 10/15/22 07:30 O2 Del Method Nasal Cannula 10/15/22 07:30 O2 Flow Rate 2 10/15/22 07:30 Oxygen Flow Rate 3 10/13/22 11:00 BMI result Body Mass Index 51.1 Const: General: cooperative, healthy appearing and no acute distress HEENT: Head: Yes normal to inspection Extrem: Other: Right knee: Skin intact, no erythema or joint effusion. Tenderness along the medial and lateral joint line. Full ROM with crepitus. Negative Minal?s. No ligamentous laxity. NVI. Results Labs 10/15/22 05:38 10/15/22 05:38 Labs: Abnormal lab results 10/14/22 10/15/22 10/15/22 Range/Units 11:15 05:38 05:38 MCV 99.8 H (80.0-98.0) fL MCH 33.6 H (27.0-33.0) pg BUN 17 H (9-16) mg/dL C-Reactive Protein 0.73 H (< or = 0.50) mg/dL H & H 10/13/22 10/15/22 Range/Units 11:48 05:38 Hgb 15.0 15.7 (14.0-18.0) g/dl Hct 44.8 46.6 (42.0-52.0) % Coagulation 10/13/22 Range/Units 11:49 INR 1.1 (0.9-1.1) All other labs normal. Assessment and Plan (1) Osteoarthritis of right knee: Status: Acute Plan We discussed options today, which include steroid injection. The patient did consent to move forward with the injection, which was tolerated well.? I recommended rest, ice and elevation and OTC antiinflammatories prn for discomfort. If symptoms persist over the next 6-8 weeks, they will contact our office, otherwise, prn Time Spent With Patient Time: Total time managing care of this patient today ____ minutes. Procedures Date of Service Date of Service: 10/16/22 Joint Aspiration/Injection Joint Asp./Inject. 1: Side of body: right Joint Aspirated/Injected: knee Skin prep: Povidone-Iodine1% Medication injected, if any: other (80mg depomedrol w/ 1% lidocaine) Complications: none
[2022-10-15] MEDS: rOPINIRole HCL 2 MG TABLET PO ×3 (10:19→20:12)
[2022-10-15] MEDS: Pregabalin 150 MG CAPSULE PO ×3 (10:19→20:11)
[2022-10-15] MEDS: Acetaminophen 325 MG TABLET 975 MG PO ×3 (10:19→20:12)
[2022-10-15] MEDS: DULoxetine HCl 60 MG CAPSULE.DR PO (10:19)
[2022-10-15] MEDS: Mirabegron 25 MG TAB.ER.24H PO (10:20)
[2022-10-15] MEDS: Metoprolol Succinate ER 50 MG TAB.ER.24H PO (10:20)
[2022-10-15] MEDS: Apixaban 5 MG TABLET PO ×2 (10:20→20:12)
[2022-10-15] MEDS: Furosemide 40 MG/4 ML VIAL IVPUSH ×2 (10:21→17:47)
[2022-10-15] MEDS: methIMAzole 5 MG TABLET PO (10:21)
[2022-10-15] MEDS: Finasteride 5 MG TABLET PO (10:21)
[2022-10-15] MEDS: 0.9 % Sodium Chloride Flush 3 ML SYRINGE IVFLUSH ×4 (10:21→20:14)
[2022-10-15] MEDS: predniSONE 5 MG TABLET PO (10:21)
[2022-10-15] MEDS: oxyCODONE HCl Immed Release 5 MG TABLET 2.5 MG PO ×2 (10:24→15:20)
--- NOTE | 2022-10-15 11:04 | PM.PNCARD ---
Subjective Subjective Date of Service: 10/15/22 Interval history: Seen and examined at bedside. Diuresing well. Continues to be in atrial fibrillation. Previous echocardiogram reviewed which was limited due to body habitus. LV function was not normal and felt to have at least mild dysfunction. Physical Exam Vital Signs: Last Vital Signs Temp 96.8 F 10/15/22 07:30 Pulse 70 10/15/22 07:30 Resp 18 10/15/22 07:30 BP 139/66 10/15/22 07:30 Pulse Ox 97 10/15/22 07:30 O2 Del Method Nasal Cannula 10/15/22 07:30 O2 Flow Rate 2 10/15/22 07:30 Oxygen Flow Rate 3 10/13/22 11:00 BMI result Body Mass Index 51.1 GENERAL APPEARANCE: in no acute distress, on supplemental oxygen, morbidly obese. SKIN: no suspicious lesions, warm and dry. HEART: no murmurs, irregularly irregular rhythm. Positive JVD LUNGS: clear to auscultation bilaterally. ABDOMEN: normal, bowel sounds present, soft, nontender. EXTREMITIES: 2 to 3+ non pitting edema bilateral LE. PERIPHERAL PULSES: equal. NEUROLOGIC: nonfocal, alert and oriented. PSYCH: mood/affect full range. Objective Labs and Meds 10/15/22 05:38 10/15/22 05:38 Lab results: Laboratory Results - last 24 hr 10/14/22 10/14/22 10/14/22 11:15 11:15 11:15 WBC RBC Hgb Hct MCV MCH MCHC RDW Plt Count MPV Absolute Nucleated RBC Nucleated RBC % (auto) ESR 5 Sodium Potassium Chloride Carbon Dioxide Anion Gap BUN Creatinine Estim Creat Clear Calc Estimated GFR Random Glucose Calcium C-Reactive Protein 0.73 H B-Natriuretic Peptide Rheumatoid Factor < 13.0 10/15/22 10/15/22 10/15/22 05:38 05:38 05:38 WBC 7.3 RBC 4.67 Hgb 15.7 Hct 46.6 MCV 99.8 H MCH 33.6 H MCHC 33.7 RDW 13.2 Plt Count 243 MPV 10.0 Absolute Nucleated RBC 0.000 Nucleated RBC % (auto) 0.0 ESR Sodium 139 Potassium 3.9 Chloride 104 Carbon Dioxide 25 Anion Gap 14 BUN 17 H Creatinine 0.86 Estim Creat Clear Calc 155.3 Estimated GFR > 60 Random Glucose 104 Calcium 9.1 C-Reactive Protein B-Natriuretic Peptide 59 Rheumatoid Factor Progress Note: A&P Assessment and plan (1) Congestive heart failure: Status: Acute (2) A-fib: Status: Acute Plan Pleasant 67 gentleman with multiple comorbidities presenting for new diagnosis of atrial fibrillation and congestive heart failure. Significantly volume overloaded but was also taking lower dose of Lasix and was missing Lasix on some days too. Continue diuretics. Ideally should be started on Jardiance but I think given his chronic cystitis and previous urine infection which should avoid it. I think we try apixaban trial to see if he has any hematuria again. If he stays stable then I think potentially can be cardioverted as outpatient. Would check urinalysis to make sure there is no evidence for infection currently. Thank you for allowing me to participate in the care of your patient. Please feel free to contact me if you have any questions. Time Spent With Patient Time: Total time managing care of this patient today ____ minutes. Progress Note: Quality Stroke Does the patient have a stroke diagnosis?: No Procedures Date of Service Date of Service: 10/15/22
[2022-10-15 11:21] VITALS: BP 169/77; PULSE 89; RESP 18; TEMP 36; O2SAT 94
[2022-10-15] MEDS: methylPREDNISolone acetate 80 MG VIAL INTRAARTIC (12:11)
[2022-10-15] MEDS: Lidocaine HCl 1 % 20 ML VIAL SUBCUT (12:12)
--- NOTE | 2022-10-15 14:49 | P.PNIM_ITS ---
Subjective Subjective Date of Service: 10/15/22 Interval History: Seen and evaluated this morning Denies any fever or chills Made -5L overnight mildly better SOB and edema Urine is clear after starting Eliquis joints pain under fair control Review of Systems Review of Systems: Yes all other systems are reviewed and are negative Physical Exam Vital Signs: Vital Signs: Last Vital Signs Temp 96.8 F 10/15/22 11:21 Pulse 89 10/15/22 11:21 Resp 18 10/15/22 11:21 BP 169/77 H 10/15/22 11:21 Pulse Ox 94 10/15/22 11:21 O2 Del Method Nasal Cannula 10/15/22 11:21 O2 Flow Rate 2 10/15/22 11:21 Oxygen Flow Rate 3 10/13/22 11:00 BMI result Body Mass Index 51.1 Const: Other: Constitutional : Awake, interactive, not in distress Neck : Normal inspection, Supple Cardiovascular : RRR, no JVP, +3 non pitting lower extremity edema bilaterally Respiratory : decrease bilateral air entry, no crackles, scattered expiratory, on 2L O2 Gastrointestinal: soft, lax, Normal bowel sounds, Non tender Skin : Warm, Dry, Erythema and scaling secondary to chronic venous stasis bilaterally.? Chronic appearing ulcerations on lower right leg with no signs of active infection covered in dressing Neurological : Alert & oriented x3, No focal deficit Objective Data Active Medications Acetaminophen (Acetaminophen 325 Mg Tablet) 975 mg PO TID [facility] Last Admin: 10/15/22 10:19 Dose: 975 mg Documented By: LORENA Albuterol Sulfate (Albuterol Sulfate 90 Mcg 8 Gm Inhaler) 2 puff INHALE Q6H PRN PRN Reason: for wheezing Apixaban (Apixaban 5 Mg Tablet) 5 mg PO BID [facility] Last Admin: 10/15/22 10:20 Dose: 5 mg Documented By: LORENA Atorvastatin Calcium (Atorvastatin Calcium 80 Mg Tablet) 80 mg PO BEDTIME [facility] Last Admin: 10/14/22 21:04 Dose: 80 mg Documented By: YOGESH Docusate Sodium (Docusate Sodium 100 Mg Capsule) 100 mg PO DAILY PRN PRN Reason: Constipation Doxazosin Mesylate (Doxazosin Mesylate 2 Mg Tablet) 8 mg PO BEDTIME [facility]; Protocol Last Admin: 10/14/22 21:04 Dose: 8 mg Documented By: YOGESH Duloxetine HCl (Duloxetine Hcl 60 Mg Capsule.Dr) 60 mg PO DAILY [facility] Last Admin: 10/15/22 10:19 Dose: 60 mg Documented By: LORENA Finasteride (Finasteride 5 Mg Tablet) 5 mg PO DAILY [facility] Last Admin: 10/15/22 10:21 Dose: 5 mg Documented By: LORENA Furosemide (Furosemide 40 Mg/4 Ml Vial) 40 mg IVPUSH BID@0900,1800 [facility]; Protocol Last Admin: 10/15/22 10:21 Dose: 40 mg Documented By: LORENA Methimazole (Methimazole 5 Mg Tablet) 5 mg PO DAILY [facility] Last Admin: 10/15/22 10:21 Dose: 5 mg Documented By: LORENA Methocarbamol (Methocarbamol 500 Mg Tablet) 500 mg PO BEDTIME PRN PRN Reason: Pain, Mild (Pain Scale 1-3) Last Admin: 10/14/22 23:02 Dose: 500 mg Documented By: YOGESH Metoprolol Succinate (Metoprolol Succinate Er 50 Mg Tab.Er.24h) 50 mg PO DAILY [facility]; Protocol Last Admin: 10/15/22 10:20 Dose: 50 mg Documented By: LORENA Mirabegron (Mirabegron 25 Mg Tab.Er.24h) 25 mg PO DAILY [facility] Last Admin: 10/15/22 10:20 Dose: 25 mg Documented By: LORENA Ondansetron HCl (Ondansetron Hcl 4 Mg/2 Ml Vial) 4 mg IVPUSH Q8H PRN PRN Reason: Nausea and Vomiting Oxycodone HCl (Oxycodone Hcl Immed Release 5 Mg Tablet) 2.5 mg PO Q6H PRN PRN Reason: Pain, Moderate(Pain Scale 4-6) Last Admin: 10/15/22 10:24 Dose: 2.5 mg Documented By: LORENA Prednisone (Prednisone 5 Mg Tablet) 5 mg PO DAILY [facility] Last Admin: 10/15/22 10:21 Dose: 5 mg Documented By: LORENA Pregabalin (Pregabalin 150 Mg Capsule) 150 mg PO TID [facility] Last Admin: 10/15/22 10:19 Dose: 150 mg Documented By: LORENA Ropinirole HCl (Ropinirole Hcl 2 Mg Tablet) 2 mg PO TID [facility] Last Admin: 10/15/22 10:19 Dose: 2 mg Documented By: LORENA Sodium Chloride (0.9 % Sodium Chloride Flush 3 Ml Syringe) 3 ml IVFLUSH QSHIFT [facility] Last Admin: 10/15/22 10:21 Dose: 3 ml Documented By: LORENA Labs 10/15/22 05:38 10/15/22 05:38 Labs: Laboratory Results - last 24 hr 10/15/22 10/15/22 10/15/22 05:38 05:38 05:38 MCV 99.8 H MCH 33.6 H MCHC 33.7 RDW 13.2 Plt Count 243 MPV 10.0 Absolute Nucleated RBC 0.000 Nucleated RBC % (auto) 0.0 Anion Gap 14 Estim Creat Clear Calc 155.3 Estimated GFR > 60 Random Glucose 104 Calcium 9.1 B-Natriuretic Peptide 59 Ur Random Sodium 10/15/22 11:52 MCV MCH MCHC RDW Plt Count MPV Absolute Nucleated RBC Nucleated RBC % (auto) Anion Gap Estim Creat Clear Calc Estimated GFR Random Glucose Calcium B-Natriuretic Peptide Ur Random Sodium 86.0 Assessment and Plan (1) Osteoarthritis of right knee: Status: Acute (2) Congestive heart failure: Status: Acute (3) A-fib: Status: Acute Plan Pt is a 67-year-old male with a PMH significant for?AFib not on anticoagulation, lymphedema with chronic venous stasis, HTN, COPD on 2 L home O2, HTN, overactive bladder, and obesity class 3 who presents to the ED with?chest pain/pressure and worsening shortness of breath with exertion and at rest. Pt will be admitted to the hospital under observation on telemetry for further evaluation and monitoring of symptomatic AFib. Symptomatic atrial fibrillation Hold on cardioversion in the near future as he needs to be on AC senior care Treat fluid overload Start Eliquis, DC ASA per cardiology Continue metoprolol Cardiology following Monitor on telemetry Congestive heart failure with low EF Echocardiogram on 10/10/2022 w reduced LVEF of 40-50% with mild pulmonary hypertension To treat with IV lasix I\O monitor BMP Hx of Hematuria Patient had to stop Eliquis for hematuria, to start it and monitor response and need of Urology eval Prev Uro eval for hematuria: chronic cystitis and was prescribed Bactrim PPx Urine now clear yellow Osteoarthritis Continue home methocarbamol DC Naproxen, start small dose prednisone and Oxycodone with Tylenol Lymphedema/chronic lower leg edema Chronic ulcerations on right lower leg, no signs of active infection Continue furosemide Wound care eval Peripheral neuropathy Continue pregabalin, ropinirole Hyperthyroidism Continue methimazole low TSH, T4 Obesity class 3 Weight loss encouraged Full Code DVT Prophylaxis: Letinox Patient needs overnight hospital stay for treatment of symptomatic AFib, CHF and specialist consultation. Time Spent With Patient Time: Total time managing care of this patient today ____ minutes. Quality Stroke Does the patient have a stroke diagnosis?: No VTE Prior VTE?: No VTE Risk Level:: Medical - moderate - high VTE Device Contraindication: Treatment Not Indicated VTE Drug Contraindication: N/A - Med Ordered
[2022-10-15 15:41] VITALS: BP 131/79; PULSE 77; RESP 18; TEMP 36.8; O2SAT 94
[2022-10-15 19:30] VITALS: BP 121/65; PULSE 95; RESP 22; TEMP 36.1; O2SAT 98
[2022-10-15] MEDS: Doxazosin Mesylate 2 MG TABLET 8 MG PO (20:11)
[2022-10-15] MEDS: Atorvastatin Calcium 80 MG TABLET PO (20:12)
[2022-10-15 23:32] VITALS: BP 126/80; PULSE 76; RESP 20; TEMP 36.1; O2SAT 94
[2022-10-16 03:14] VITALS: BP 116/80; PULSE 78; RESP 20; TEMP 36.1; O2SAT 94
[2022-10-16] MEDS: oxyCODONE HCl Immed Release 5 MG TABLET 2.5 MG PO (06:13)
[2022-10-16] MEDS: methocarbamoL 500 MG TABLET PO ×2 (06:13→20:14)
[2022-10-16 06:52] LABS: Anion Gap 12 (12-20); Blood Urea Nitrogen 17 mg/dL (9-16); Calcium 9.7 mg/dL (8.4-10.2); Carbon Dioxide 29 mmol/L (22-29); Chloride 102 mmol/L (96-108); Creatinine Clr Calc Pharmacy 148.4; Estimated Glomerular Filt Rate > 60; Glucose Random 100 mg/dL (60-115); Potassium 3.8 mmol/L (3.3-5.1); Sodium 139 mmol/L (135-145)
[2022-10-16 07:31] VITALS: BP 110/65; PULSE 84; RESP 20; TEMP 36.7; O2SAT 97
[2022-10-16] MEDS: predniSONE 5 MG TABLET PO (08:54)
[2022-10-16] MEDS: Finasteride 5 MG TABLET PO (08:54)
[2022-10-16] MEDS: Apixaban 5 MG TABLET PO ×2 (08:54→20:12)
[2022-10-16] MEDS: rOPINIRole HCL 2 MG TABLET PO ×3 (08:54→20:12)
[2022-10-16] MEDS: Pregabalin 150 MG CAPSULE PO ×3 (08:54→20:11)
[2022-10-16] MEDS: Metoprolol Succinate ER 50 MG TAB.ER.24H PO (08:54)
[2022-10-16] MEDS: methIMAzole 5 MG TABLET PO (08:54)
[2022-10-16] MEDS: DULoxetine HCl 60 MG CAPSULE.DR PO (08:54)
[2022-10-16] MEDS: Mirabegron 25 MG TAB.ER.24H PO (08:54)
[2022-10-16] MEDS: Furosemide 40 MG/4 ML VIAL IVPUSH ×2 (08:58→16:56)
[2022-10-16] MEDS: Acetaminophen 325 MG TABLET 975 MG PO ×3 (09:52→20:12)
--- NOTE | 2022-10-16 10:45 | PM.PNCARD ---
Subjective Subjective Date of Service: 10/16/22 Interval history: Seen examined at bedside. Diuresing and improving. Still significant volume overload. Physical Exam Vital Signs: Last Vital Signs Temp 98.0 F 10/16/22 07:31 Pulse 84 10/16/22 07:31 Resp 20 10/16/22 07:31 BP 110/65 10/16/22 07:31 Pulse Ox 97 10/16/22 07:31 O2 Del Method Nasal Cannula 10/16/22 07:31 O2 Flow Rate 4 10/16/22 07:31 Oxygen Flow Rate 3 10/13/22 11:00 BMI result Body Mass Index 51.1 GENERAL APPEARANCE: in no acute distress, on supplemental oxygen, morbidly obese. SKIN: no suspicious lesions, warm and dry. HEART: no murmurs, irregularly irregular rhythm. LUNGS: clear to auscultation bilaterally. ABDOMEN: Distended, dullness to percussion. EXTREMITIES: 2 to 3+ non pitting edema bilateral LE. PERIPHERAL PULSES: equal. NEUROLOGIC: nonfocal, alert and oriented. PSYCH: mood/affect full range. Objective Labs and Meds 10/15/22 05:38 10/16/22 06:17 Lab results: Laboratory Results - last 24 hr 10/15/22 10/16/22 11:52 06:17 Sodium 139 Potassium 3.8 Chloride 102 Carbon Dioxide 29 Anion Gap 12 BUN 17 H Creatinine 0.90 Estim Creat Clear Calc 148.4 Estimated GFR > 60 Random Glucose 100 Calcium 9.7 D Ur Random Sodium 86.0 Progress Note: A&P Assessment and plan (1) Congestive heart failure: Status: Acute (2) A-fib: Status: Acute Plan Pleasant 67 gentleman with morbid obesity and previous COVID-19 infection was presenting with significant weight gain and new diagnosis of atrial fibrillation. Clinically appears to be in volume overload and congestive heart failure. He was taking Lasix 40 mg daily but cut it to 20 mg daily and was missing some doses 2. Overall responding well to IV Lasix. Continue same dose. Adding spironolactone 25 mg daily. He had hematuria at home and apixaban was discontinued previously. Has been restarted at this stage. If he tolerates it well then will continue weight and consider cardioversion in 4 weeks. On the other hand if he starts having hematuria again then he will need to see urology. He previously had hematuria in the setting of urine tract infection. He has chronic cystitis. Thank you for allowing me to participate in the care of your patient. Please feel free to contact me if you have any questions. Time Spent With Patient Time: Total time managing care of this patient today ____ minutes. Progress Note: Quality Stroke Does the patient have a stroke diagnosis?: No Procedures Date of Service Date of Service: 10/16/22
[2022-10-16] MEDS: Spironolactone 25 MG TABLET PO (11:10)
[2022-10-16] MEDS: Docusate Sodium 100 MG CAPSULE PO (11:10)
--- NOTE | 2022-10-16 11:22 | P.PNIM_ITS ---
Subjective Subjective Date of Service: 10/16/22 Interval History: no further hematuria, sob improving Physical Exam Vital Signs: Vital Signs: Last Vital Signs Temp 98.0 F 10/16/22 07:31 Pulse 84 10/16/22 07:31 Resp 20 10/16/22 07:31 BP 110/65 10/16/22 07:31 Pulse Ox 97 10/16/22 07:31 O2 Del Method Nasal Cannula 10/16/22 07:31 O2 Flow Rate 4 10/16/22 07:31 Oxygen Flow Rate 3 10/13/22 11:00 BMI result Body Mass Index 51.1 Const: Other: Constitutional : Awake, interactive, not in distress Neck : Normal inspection, Supple Cardiovascular : RRR, no JVP, +3 non pitting lower extremity edema bilaterally Respiratory : decrease bilateral air entry, no crackles, scattered expiratory, on 2L O2 Gastrointestinal: soft, lax, Normal bowel sounds, Non tender Skin : Warm, Dry, Erythema and scaling secondary to chronic venous stasis bilaterally.? Chronic appearing ulcerations on lower right leg with no signs of active infection covered in dressing Neurological : Alert & oriented x3, No focal deficit Objective Data Active Medications Acetaminophen (Acetaminophen 325 Mg Tablet) 975 mg PO TID [facility] Last Admin: 10/16/22 09:52 Dose: 975 mg Documented By: LORENA Albuterol Sulfate (Albuterol Sulfate 90 Mcg 8 Gm Inhaler) 2 puff INHALE Q6H PRN PRN Reason: for wheezing Apixaban (Apixaban 5 Mg Tablet) 5 mg PO BID [facility] Last Admin: 10/16/22 08:54 Dose: 5 mg Documented By: LORENA Atorvastatin Calcium (Atorvastatin Calcium 80 Mg Tablet) 80 mg PO BEDTIME [facility] Last Admin: 10/15/22 20:12 Dose: 80 mg Documented By: ELIJAH Docusate Sodium (Docusate Sodium 100 Mg Capsule) 100 mg PO DAILY PRN PRN Reason: Constipation Last Admin: 10/16/22 11:10 Dose: 100 mg Documented By: LORENA Doxazosin Mesylate (Doxazosin Mesylate 2 Mg Tablet) 8 mg PO BEDTIME [facility]; Protocol Last Admin: 10/15/22 20:11 Dose: 8 mg Documented By: ELIJAH Duloxetine HCl (Duloxetine Hcl 60 Mg Capsule.) 60 mg PO DAILY [facility] Last Admin: 10/16/22 08:54 Dose: 60 mg Documented By: LORENA Finasteride (Finasteride 5 Mg Tablet) 5 mg PO DAILY [facility] Last Admin: 10/16/22 08:54 Dose: 5 mg Documented By: LORENA Furosemide (Furosemide 40 Mg/4 Ml Vial) 40 mg IVPUSH BID@0900,1800 [facility]; Protocol Last Admin: 10/16/22 08:58 Dose: 40 mg Documented By: LORENA Methimazole (Methimazole 5 Mg Tablet) 5 mg PO DAILY [facility] Last Admin: 10/16/22 08:54 Dose: 5 mg Documented By: LORENA Methocarbamol (Methocarbamol 500 Mg Tablet) 500 mg PO BEDTIME PRN PRN Reason: Pain, Mild (Pain Scale 1-3) Last Admin: 10/16/22 06:13 Dose: 500 mg Documented By: ELIJAH Metoprolol Succinate (Metoprolol Succinate Er 50 Mg Tab.Er.24h) 50 mg PO DAILY [facility]; Protocol Last Admin: 10/16/22 08:54 Dose: 50 mg Documented By: LORENA Mirabegron (Mirabegron 25 Mg Tab.Er.24h) 25 mg PO DAILY [facility] Last Admin: 10/16/22 08:54 Dose: 25 mg Documented By: LORENA Ondansetron HCl (Ondansetron Hcl 4 Mg/2 Ml Vial) 4 mg IVPUSH Q8H PRN PRN Reason: Nausea and Vomiting Oxycodone HCl (Oxycodone Hcl Immed Release 5 Mg Tablet) 5 mg PO Q6H PRN PRN Reason: Pain, Moderate(Pain Scale 4-6) Prednisone (Prednisone 5 Mg Tablet) 5 mg PO DAILY [facility] Last Admin: 10/16/22 08:54 Dose: 5 mg Documented By: LORENA Pregabalin (Pregabalin 150 Mg Capsule) 150 mg PO TID [facility] Last Admin: 10/16/22 08:54 Dose: 150 mg Documented By: LORENA Ropinirole HCl (Ropinirole Hcl 2 Mg Tablet) 2 mg PO TID [facility] Last Admin: 10/16/22 08:54 Dose: 2 mg Documented By: LORENA Sodium Chloride (0.9 % Sodium Chloride Flush 3 Ml Syringe) 3 ml IVFLUSH QSHIFT [facility] Last Admin: 10/15/22 20:14 Dose: 3 ml Documented By: ELIJAH Spironolactone (Spironolactone 25 Mg Tablet) 25 mg PO DAILY [facility]; Protocol Last Admin: 10/16/22 11:10 Dose: 25 mg Documented By: LORENA Labs 10/15/22 05:38 10/16/22 06:17 Labs: Laboratory Results - last 24 hr 10/15/22 10/16/22 11:52 06:17 Anion Gap 12 Estim Creat Clear Calc 148.4 Estimated GFR > 60 Random Glucose 100 Calcium 9.7 D Ur Random Sodium 86.0 Assessment and Plan (1) Osteoarthritis of right knee: Status: Acute (2) Congestive heart failure: Status: Acute (3) A-fib: Status: Acute Plan 67M PMH significant for?pAFib not on anticoagulation, lymphedema with chronic venous stasis, HTN, COPD on 2 L home O2, HTN, overactive bladder, and obesity class 3 who presented to the ED with?chest pain/pressure and worsening shortness of breath with exertion and at rest. Paroxysmal atrial fibrillation Continue metoprolol, Eliquis Acute on chronic systolic CHF Continue IV Lasix Cardio following History of Eliquis intolerance due to hematuria Restarted Eliquis, monitor closely, no gross hematuria at this time Osteoarthritis Short course of low-dose prednisone, oxycodone, Tylenol, methocarbamol Lymphedema/chronic lower leg edema Chronic ulcerations on right lower leg, no signs of active infection Continue furosemide Wound care Peripheral neuropathy Continue pregabalin, ropinirole Hyperthyroidism Continue methimazole Obesity class 3 Weight loss encouraged Full Code DVT Prophylaxis: Eliquis reason for continued hospitalization:iv diuresis Time Spent With Patient Time: Total time managing care of this patient today ____ minutes. Quality Stroke Does the patient have a stroke diagnosis?: No VTE Prior VTE?: No VTE Risk Level:: Medical - moderate - high VTE Device Contraindication: Treatment Not Indicated VTE Drug Contraindication: N/A - Med Ordered
[2022-10-16 11:40] VITALS: BP 127/67; PULSE 97; RESP 20; TEMP 36.9; O2SAT 96
[2022-10-16] MEDS: oxyCODONE HCl Immed Release 5 MG TABLET PO ×2 (13:06→20:09)
[2022-10-16 13:24] LABS: Cyclic Citrullinated Peptide <16 UNITS
[2022-10-16] MEDS: 0.9 % Sodium Chloride Flush 3 ML SYRINGE IVFLUSH ×2 (14:32→20:09)
[2022-10-16 15:20] VITALS: BP 122/65; PULSE 73; RESP 16; TEMP 36.9; O2SAT 97
[2022-10-16 19:26] VITALS: BP 111/67; PULSE 77; RESP 20; TEMP 36.6; O2SAT 96
[2022-10-16] MEDS: Doxazosin Mesylate 2 MG TABLET 8 MG PO (20:10)
[2022-10-16] MEDS: Atorvastatin Calcium 80 MG TABLET PO (20:12)
[2022-10-16 23:15] VITALS: BP 131/74; PULSE 84; RESP 18; TEMP 36.1; O2SAT 96
[2022-10-17 03:30] VITALS: BP 127/71; PULSE 93; RESP 18; TEMP 36; O2SAT 96
[2022-10-17] MEDS: oxyCODONE HCl Immed Release 5 MG TABLET PO ×3 (04:06→17:44)
[2022-10-17 05:40] LABS: Hematocrit 45.6 % (42.0-52.0); Hemoglobin 15.2 g/dl (14.0-18.0); Mean Corpuscular HGB Conc 33.3 g/dl (31.0-36.0); Mean Corpuscular Hemoglobin 33.5 pg (27.0-33.0); Mean Corpuscular Volume 100.4 fL (80.0-98.0); Mean Platelet Volume 9.9 fL (9.4-12.4); Platelet Count 242 X10*3/uL (160-400); Red Blood Count 4.54 X10*6/uL (4.60-5.80); Red Cell Distribution Width 13.2 % (11.0-16.0); White Blood Count 8.7 X10*3/uL (4.8-10.8)
[2022-10-17 06:02] LABS: Anion Gap 12 (12-20); Blood Urea Nitrogen 18 mg/dL (9-16); Calcium 9.1 mg/dL (8.4-10.2); Carbon Dioxide 28 mmol/L (22-29); Chloride 102 mmol/L (96-108); Creatinine Clr Calc Pharmacy 162.9; Estimated Glomerular Filt Rate > 60; Glucose Fasting 109 mg/dL (60-99); Potassium 3.7 mmol/L (3.3-5.1); Sodium 138 mmol/L (135-145)
[2022-10-17 07:34] VITALS: BP 142/66; PULSE 77; RESP 20; TEMP 36.7; O2SAT 96
[2022-10-17] MEDS: rOPINIRole HCL 2 MG TABLET PO ×3 (08:32→20:23)
[2022-10-17] MEDS: Pregabalin 150 MG CAPSULE PO ×3 (08:32→20:23)
[2022-10-17] MEDS: Mirabegron 25 MG TAB.ER.24H PO (08:32)
[2022-10-17] MEDS: Spironolactone 25 MG TABLET PO (08:32)
[2022-10-17] MEDS: methIMAzole 5 MG TABLET PO (08:33)
[2022-10-17] MEDS: Apixaban 5 MG TABLET PO ×2 (08:33→20:26)
[2022-10-17] MEDS: Acetaminophen 325 MG TABLET 975 MG PO ×3 (08:33→20:23)
[2022-10-17] MEDS: predniSONE 5 MG TABLET PO (08:33)
[2022-10-17] MEDS: Metoprolol Succinate ER 50 MG TAB.ER.24H PO (08:34)
[2022-10-17] MEDS: DULoxetine HCl 60 MG CAPSULE.DR PO (08:34)
[2022-10-17] MEDS: Finasteride 5 MG TABLET PO (08:34)
[2022-10-17] MEDS: Furosemide 40 MG/4 ML VIAL IVPUSH ×2 (08:34→17:44)
[2022-10-17] MEDS: 0.9 % Sodium Chloride Flush 3 ML SYRINGE IVFLUSH ×3 (08:35→20:27)
--- NOTE | 2022-10-17 09:11 | P.PNIM_ITS ---
Subjective Subjective Date of Service: 10/17/22 Interval History: greater than 10L negative, overall about 50% better Physical Exam Vital Signs: Vital Signs: Last Vital Signs Temp 98.1 F 10/17/22 07:34 Pulse 77 10/17/22 07:34 Resp 20 10/17/22 07:34 BP 142/66 H 10/17/22 07:34 Pulse Ox 96 10/17/22 07:34 O2 Del Method Room Air 10/17/22 07:34 O2 Flow Rate 2 10/17/22 03:30 Oxygen Flow Rate 3 10/13/22 11:00 BMI result Body Mass Index 51.1 Const: Other: Constitutional : Awake, interactive, not in distress Neck : Normal inspection, Supple Cardiovascular : RRR, no JVP, +3 non pitting lower extremity edema bilaterally Respiratory : decrease bilateral air entry, no crackles, scattered expiratory, on 2L O2 Gastrointestinal: soft, lax, Normal bowel sounds, Non tender Skin : Warm, Dry, Erythema and scaling secondary to chronic venous stasis bilaterally.? Chronic appearing ulcerations on lower right leg with no signs of active infection covered in dressing Neurological : Alert & oriented x3, No focal deficit Objective Data Active Medications Acetaminophen (Acetaminophen 325 Mg Tablet) 975 mg PO TID [facility] Last Admin: 10/17/22 08:33 Dose: 975 mg Documented By: LORENA Albuterol Sulfate (Albuterol Sulfate 90 Mcg 8 Gm Inhaler) 2 puff INHALE Q6H PRN PRN Reason: for wheezing Apixaban (Apixaban 5 Mg Tablet) 5 mg PO BID [facility] Last Admin: 10/17/22 08:33 Dose: 5 mg Documented By: LORENA Atorvastatin Calcium (Atorvastatin Calcium 80 Mg Tablet) 80 mg PO BEDTIME [facility] Last Admin: 10/16/22 20:12 Dose: 80 mg Documented By: SANDEE Docusate Sodium (Docusate Sodium 100 Mg Capsule) 100 mg PO DAILY PRN PRN Reason: Constipation Last Admin: 10/16/22 11:10 Dose: 100 mg Documented By: LORENA Doxazosin Mesylate (Doxazosin Mesylate 2 Mg Tablet) 8 mg PO BEDTIME [facility]; Protoc ol Last Admin: 10/16/22 20:10 Dose: 8 mg Documented By: SANDEE Duloxetine HCl (Duloxetine Hcl 60 Mg Capsule.) 60 mg PO DAILY [facility] Last Admin: 10/17/22 08:34 Dose: 60 mg Documented By: LORENA Finasteride (Finasteride 5 Mg Tablet) 5 mg PO DAILY [facility] Last Admin: 10/17/22 08:34 Dose: 5 mg Documented By: LORENA Furosemide (Furosemide 40 Mg/4 Ml Vial) 40 mg IVPUSH BID@0900,1800 [facility]; Protocol Last Admin: 10/17/22 08:34 Dose: 40 mg Documented By: LORENA Methimazole (Methimazole 5 Mg Tablet) 5 mg PO DAILY [facility] Last Admin: 10/17/22 08:33 Dose: 5 mg Documented By: LORENA Methocarbamol (Methocarbamol 500 Mg Tablet) 500 mg PO BEDTIME PRN PRN Reason: Pain, Mild (Pain Scale 1-3) Last Admin: 10/16/22 20:14 Dose: 500 mg Documented By: SANDEE Metoprolol Succinate (Metoprolol Succinate Er 50 Mg Tab.Er.24h) 50 mg PO DAILY [facility]; Protocol Last Admin: 10/17/22 08:34 Dose: 50 mg Documented By: LORENA Mirabegron (Mirabegron 25 Mg Tab.Er.24h) 25 mg PO DAILY [facility] Last Admin: 10/17/22 08:32 Dose: 25 mg Documented By: LORENA Ondansetron HCl (Ondansetron Hcl 4 Mg/2 Ml Vial) 4 mg IVPUSH Q8H PRN PRN Reason: Nausea and Vomiting Oxycodone HCl (Oxycodone Hcl Immed Release 5 Mg Tablet) 5 mg PO Q6H PRN PRN Reason: Pain, Moderate(Pain Scale 4-6) Last Admin: 10/17/22 04:06 Dose: 5 mg Documented By: SANDEE Prednisone (Prednisone 5 Mg Tablet) 5 mg PO DAILY [facility] Last Admin: 10/17/22 08:33 Dose: 5 mg Documented By: LORENA Pregabalin (Pregabalin 150 Mg Capsule) 150 mg PO TID [facility] Last Admin: 10/17/22 08:32 Dose: 150 mg Documented By: LORENA Ropinirole HCl (Ropinirole Hcl 2 Mg Tablet) 2 mg PO TID [facility] Last Admin: 10/17/22 08:32 Dose: 2 mg Documented By: LORENA Sodium Chloride (0.9 % Sodium Chloride Flush 3 Ml Syringe) 3 ml IVFLUSH QSHIFT [facility] Last Admin: 10/17/22 08:35 Dose: 3 ml Documented By: LORENA Spironolactone (Spironolactone 25 Mg Tablet) 25 mg PO DAILY [facility]; Protocol Last Admin: 10/17/22 08:32 Dose: 25 mg Documented By: LORENA Labs 10/17/22 05:26 10/17/22 05:26 Labs: Laboratory Results - last 24 hr 10/14/22 10/17/22 10/17/22 11:15 05:26 05:26 MCV 100.4 H MCH 33.5 H MCHC 33.3 RDW 13.2 Plt Count 242 MPV 9.9 Absolute Nucleated RBC 0.000 Nucleated RBC % (auto) 0.0 Anion Gap 12 Estim Creat Clear Calc 162.9 Estimated GFR > 60 Fasting Glucose 109 H Calcium 9.1 D Cycl Citrul Peptide IgG <16 Assessment and Plan (1) Osteoarthritis of right knee: Status: Acute (2) Congestive heart failure: Status: Acute (3) A-fib: Status: Acute Plan 67M PMH significant for?pAFib not on anticoagulation, lymphedema with chronic venous stasis, HTN, COPD on 2 L home O2, HTN, overactive bladder, and obesity class 3 who presented to the ED with?chest pain/pressure and worsening shortness of breath with exertion and at rest. Paroxysmal atrial fibrillation Continue metoprolol, Eliquis Acute on chronic systolic CHF diuresing well Continue IV Lasix Cardio following History of Eliquis intolerance due to hematuria Restarted Eliquis, monitor closely, no gross hematuria at this time Osteoarthritis Short course of low-dose prednisone, oxycodone, Tylenol, methocarbamol Lymphedema/chronic lower leg edema Chronic ulcerations on right lower leg, no signs of active infection Continue furosemide Wound care Peripheral neuropathy Continue pregabalin, ropinirole Hyperthyroidism Continue methimazole Obesity class 3 Weight loss encouraged Full Code DVT Prophylaxis: Eliquis reason for continued hospitalization:iv diuresis Time Spent With Patient Time: Total time managing care of this patient today ____ minutes. Quality Stroke Does the patient have a stroke diagnosis?: No VTE Prior VTE?: No VTE Risk Level:: Medical - moderate - high VTE Device Contraindication: Treatment Not Indicated VTE Drug Contraindication: N/A - Med Ordered
[2022-10-17 11:34] VITALS: BP 118/64; PULSE 86; RESP 20; TEMP 36.4; O2SAT 95
[2022-10-17] MEDS: Docusate Sodium 100 MG CAPSULE PO (13:01)
[2022-10-17 14:54] VITALS: BP 138/63; PULSE 90; RESP 20; TEMP 36.1; O2SAT 96
[2022-10-17 19:02] VITALS: BP 122/75; PULSE 82; RESP 20; TEMP 35.7; O2SAT 97
[2022-10-17] MEDS: Doxazosin Mesylate 2 MG TABLET 8 MG PO (20:23)
[2022-10-17] MEDS: methocarbamoL 500 MG TABLET PO (20:26)
[2022-10-17] MEDS: Atorvastatin Calcium 80 MG TABLET PO (20:26)
[2022-10-18] VITALS (7 sets, daily range): BP systolic 97–138; BP diastolic 65–85; PULSE 67–97; RESP 18–20; TEMP 35.6–37.1; O2SAT 93–98
[2022-10-18] MEDS: oxyCODONE HCl Immed Release 5 MG TABLET PO ×4 (02:32→23:14)
[2022-10-18 06:51] LABS: Hematocrit 49.9 % (42.0-52.0); Hemoglobin 17.2 g/dl (14.0-18.0); Mean Corpuscular HGB Conc 34.5 g/dl (31.0-36.0); Mean Corpuscular Hemoglobin 34.3 pg (27.0-33.0); Mean Corpuscular Volume 99.4 fL (80.0-98.0); Mean Platelet Volume 10.1 fL (9.4-12.4); Platelet Count 258 X10*3/uL (160-400); Red Blood Count 5.02 X10*6/uL (4.60-5.80); Red Cell Distribution Width 13.2 % (11.0-16.0); White Blood Count 8.6 X10*3/uL (4.8-10.8)
[2022-10-18 07:06] LABS: Anion Gap 17 (12-20); Blood Urea Nitrogen 20 mg/dL (9-16); Calcium 9.5 mg/dL (8.4-10.2); Carbon Dioxide 23 mmol/L (22-29); Chloride 100 mmol/L (96-108); Creatinine Clr Calc Pharmacy 160.9; Estimated Glomerular Filt Rate > 60; Glucose Fasting 90 mg/dL (60-99); Potassium 3.7 mmol/L (3.3-5.1); Sodium 136 mmol/L (135-145)
[2022-10-18] MEDS: rOPINIRole HCL 2 MG TABLET PO ×3 (08:27→23:14)
[2022-10-18] MEDS: Acetaminophen 325 MG TABLET 975 MG PO ×3 (08:28→23:15)
[2022-10-18] MEDS: Apixaban 5 MG TABLET PO ×2 (08:28→23:13)
[2022-10-18] MEDS: methIMAzole 5 MG TABLET PO (08:28)
[2022-10-18] MEDS: predniSONE 5 MG TABLET PO (08:28)
[2022-10-18] MEDS: DULoxetine HCl 60 MG CAPSULE.DR PO (08:28)
[2022-10-18] MEDS: Pregabalin 150 MG CAPSULE PO ×3 (08:28→23:14)
[2022-10-18] MEDS: Finasteride 5 MG TABLET PO (08:28)
[2022-10-18] MEDS: Mirabegron 25 MG TAB.ER.24H PO (08:28)
[2022-10-18] MEDS: Spironolactone 25 MG TABLET PO (08:28)
[2022-10-18] MEDS: Furosemide 40 MG/4 ML VIAL IVPUSH ×2 (08:28→17:01)
[2022-10-18] MEDS: 0.9 % Sodium Chloride Flush 3 ML SYRINGE IVFLUSH ×2 (08:28→15:08)
[2022-10-18] MEDS: Metoprolol Succinate ER 50 MG TAB.ER.24H PO (08:28)
--- NOTE | 2022-10-18 08:47 | P.PNIM_ITS ---
Subjective Subjective Date of Service: 10/18/22 Interval History: continues to improve with diuresis Physical Exam Vital Signs: Vital Signs: Last Vital Signs Temp 97.1 F 10/18/22 07:41 Pulse 97 10/18/22 07:41 Resp 20 10/18/22 07:41 BP 135/85 10/18/22 07:41 Pulse Ox 98 10/18/22 07:41 O2 Del Method Nasal Cannula 10/18/22 07:41 O2 Flow Rate 2 10/18/22 07:41 Oxygen Flow Rate 3 10/13/22 11:00 BMI result Body Mass Index 51.1 Const: Other: Constitutional : Awake, interactive, not in distress Neck : Normal inspection, Supple Cardiovascular : RRR, no JVP, +3 non pitting lower extremity edema bilaterally Respiratory : decrease bilateral air entry, no crackles, scattered expiratory, on 2L O2 Gastrointestinal: soft, lax, Normal bowel sounds, Non tender Skin : Warm, Dry, Erythema and scaling secondary to chronic venous stasis bilaterally.? Chronic appearing ulcerations on lower right leg with no signs of active infection covered in dressing Neurological : Alert & oriented x3, No focal deficit Objective Data Active Medications Acetaminophen (Acetaminophen 325 Mg Tablet) 975 mg PO TID [facility] Last Admin: 10/18/22 08:28 Dose: 975 mg Documented By: HOA Albuterol Sulfate (Albuterol Sulfate 90 Mcg 8 Gm Inhaler) 2 puff INHALE Q6H PRN PRN Reason: for wheezing Apixaban (Apixaban 5 Mg Tablet) 5 mg PO BID [facility] Last Admin: 10/18/22 08:28 Dose: 5 mg Documented By: HOA Atorvastatin Calcium (Atorvastatin Calcium 80 Mg Tablet) 80 mg PO BEDTIME [facility] Last Admin: 10/17/22 20:26 Dose: 80 mg Documented By: SANDEE Docusate Sodium (Docusate Sodium 100 Mg Capsule) 100 mg PO DAILY PRN PRN Reason: Constipation Last Admin: 10/17/22 13:01 Dose: 100 mg Documented By: LORENA Doxazosin Mesylate (Doxazosin Mesylate 2 Mg Tablet) 8 mg PO BEDTIME [facility]; Protocol Last Admin: 10/17/22 20:23 Dose: 8 mg Documented By: SANDEE Duloxetine HCl (Duloxetine Hcl 60 Mg Capsule.) 60 mg PO DAILY [facility] Last Admin: 10/18/22 08:28 Dose: 60 mg Documented By: HOA Finasteride (Finasteride 5 Mg Tablet) 5 mg PO DAILY [facility] Last Admin: 10/18/22 08:28 Dose: 5 mg Documented By: HOA Furosemide (Furosemide 40 Mg/4 Ml Vial) 40 mg IVPUSH BID@0900,1800 [facility]; Protocol Last Admin: 10/18/22 08:28 Dose: 40 mg Documented By: HOA Methimazole (Methimazole 5 Mg Tablet) 5 mg PO DAILY [facility] Last Admin: 10/18/22 08:28 Dose: 5 mg Documented By: OHA Methocarbamol (Methocarbamol 500 Mg Tablet) 500 mg PO BEDTIME PRN PRN Reason: Pain, Mild (Pain Scale 1-3) Last Admin: 10/17/22 20:26 Dose: 500 mg Documented By: SANDEE Metoprolol Succinate (Metoprolol Succinate Er 50 Mg Tab.Er.24h) 50 mg PO DAILY [facility]; Protocol Last Admin: 10/18/22 08:28 Dose: 50 mg Documented By: HOA Mirabegron (Mirabegron 25 Mg Tab.Er.24h) 25 mg PO DAILY [facility] Last Admin: 10/18/22 08:28 Dose: 25 mg Documented By: HOA Ondansetron HCl (Ondansetron Hcl 4 Mg/2 Ml Vial) 4 mg IVPUSH Q8H PRN PRN Reason: Nausea and Vomiting Oxycodone HCl (Oxycodone Hcl Immed Release 5 Mg Tablet) 5 mg PO Q6H PRN PRN Reason: Pain, Moderate(Pain Scale 4-6) Last Admin: 10/18/22 08:40 Dose: 5 mg Documented By: HOA Prednisone (Prednisone 5 Mg Tablet) 5 mg PO DAILY [facility] Last Admin: 10/18/22 08:28 Dose: 5 mg Documented By: HOA Pregabalin (Pregabalin 150 Mg Capsule) 150 mg PO TID [facility] Last Admin: 10/18/22 08:28 Dose: 150 mg Documented By: HOA Ropinirole HCl (Ropinirole Hcl 2 Mg Tablet) 2 mg PO TID [facility] Last Admin: 10/18/22 08:27 Dose: 2 mg Documented By: HOA Sodium Chloride (0.9 % Sodium Chloride Flush 3 Ml Syringe) 3 ml IVFLUSH QSHIFT MICHELLE Last Admin: 10/18/22 08:28 Dose: 3 ml Documented By: HOA Spironolactone (Spironolactone 25 Mg Tablet) 25 mg PO DAILY [facility]; Protocol Last Admin: 10/18/22 08:28 Dose: 25 mg Documented By: HOA Labs 10/18/22 06:24 10/18/22 06:24 Labs: Laboratory Results - last 24 hr 10/18/22 10/18/22 06:24 06:24 MCV 99.4 H MCH 34.3 H MCHC 34.5 RDW 13.2 Plt Count 258 MPV 10.1 Absolute Nucleated RBC 0.000 Nucleated RBC % (auto) 0.0 Anion Gap 17 Estim Creat Clear Calc 160.9 Estimated GFR > 60 Fasting Glucose 90 Calcium 9.5 Magnesium 2.0 Assessment and Plan (1) Osteoarthritis of right knee: Status: Acute (2) Congestive heart failure: Status: Acute (3) A-fib: Status: Acute Plan 67M PMH significant for?pAFib not on anticoagulation, lymphedema with chronic venous stasis, HTN, COPD on 2 L home O2, HTN, overactive bladder, and obesity class 3 who presented to the ED with?chest pain/pressure and worsening shortness of breath with exertion and at rest. Paroxysmal atrial fibrillation Continue metoprolol, Eliquis Acute on chronic systolic CHF diuresing well Continue IV Lasix Cardio following History of Eliquis intolerance due to hematuria Restarted Eliquis, monitor closely, no gross hematuria at this time Osteoarthritis Short course of low-dose prednisone, oxycodone, Tylenol, methocarbamol Lymphedema/chronic lower leg edema Chronic ulcerations on right lower leg, no signs of active infection Continue furosemide Wound care Peripheral neuropathy Continue pregabalin, ropinirole Hyperthyroidism Continue methimazole Obesity class 3 Weight loss encouraged Full Code DVT Prophylaxis: Eliquis reason for continued hospitalization:iv diuresis Time Spent With Patient Time: Total time managing care of this patient today ____ minutes. Quality Stroke Does the patient have a stroke diagnosis?: No VTE Prior VTE?: No VTE Risk Level:: Medical - moderate - high VTE Device Contraindication: Treatment Not Indicated VTE Drug Contraindication: N/A - Med Ordered
--- NOTE | 2022-10-18 12:15 | MHC.CM.PN ---
EMR reviewed and per MD rounds, pt is not medically cleared for D/C today due to the continued need for IV diuretics. CM will continue to follow.
--- NOTE | 2022-10-18 20:51 | PM.PNCARD ---
Subjective Subjective Date of Service: 10/18/22 Interval history: Seen and examined at bedside. Diuresing well. Feeling better. Physical Exam Vital Signs: Last Vital Signs Temp 96.2 F L 10/18/22 19:10 Pulse 90 10/18/22 19:10 Resp 20 10/18/22 19:10 BP 117/82 10/18/22 19:10 Pulse Ox 98 10/18/22 19:10 O2 Del Method Room Air 10/18/22 19:10 O2 Flow Rate 2 10/18/22 07:41 Oxygen Flow Rate 3 10/13/22 11:00 BMI result Body Mass Index 51.1 GENERAL APPEARANCE: in no acute distress, on supplemental oxygen, morbidly obese. SKIN: no suspicious lesions, warm and dry. HEART: no murmurs, irregularly irregular rhythm. LUNGS: clear to auscultation bilaterally. ABDOMEN: Distended, dullness to percussion. EXTREMITIES: 2 to 3+ non pitting edema bilateral LE. PERIPHERAL PULSES: equal. NEUROLOGIC: nonfocal, alert and oriented. PSYCH: mood/affect full range. Objective Labs and Meds 10/18/22 06:24 10/18/22 06:24 Lab results: Laboratory Results - last 24 hr 10/18/22 10/18/22 06:24 06:24 WBC 8.6 RBC 5.02 Hgb 17.2 Hct 49.9 MCV 99.4 H MCH 34.3 H MCHC 34.5 RDW 13.2 Plt Count 258 MPV 10.1 Absolute Nucleated RBC 0.000 Nucleated RBC % (auto) 0.0 Sodium 136 Potassium 3.7 Chloride 100 Carbon Dioxide 23 Anion Gap 17 BUN 20 H Creatinine 0.83 Estim Creat Clear Calc 160.9 Estimated GFR > 60 Fasting Glucose 90 Calcium 9.5 Magnesium 2.0 Progress Note: A&P Assessment and plan (1) Congestive heart failure: Status: Acute (2) A-fib: Status: Acute Plan 67 male with new onset Afib and CHF. Diuresing. Added spironolactone. Rates are poorly controlled with ambulation - looading with digoxin. Would put him on maintenance dose of digoxin 250 mcg on M, W and F. Plan to cardiovert him as outpatient if he tolerates the apixaban. Had hematuria previously. Time Spent With Patient Time: Total time managing care of this patient today ____ minutes. Progress Note: Quality Stroke Does the patient have a stroke diagnosis?: No Procedures Date of Service Date of Service: 10/18/22
[2022-10-18] MEDS: Atorvastatin Calcium 80 MG TABLET PO (23:14)
[2022-10-18] MEDS: Doxazosin Mesylate 2 MG TABLET 8 MG PO (23:14)
[2022-10-18] MEDS: methocarbamoL 500 MG TABLET PO (23:14)
[2022-10-18] MEDS: Digoxin 0.5 MG/2 ML AMPUL 0.25 MG IVPUSH (23:15)
[2022-10-19 04:00] VITALS: BP 150/88; PULSE 83; RESP 18; TEMP 37; O2SAT 98
[2022-10-19] MEDS: Digoxin 0.5 MG/2 ML AMPUL 0.25 MG IVPUSH (04:24)
[2022-10-19] MEDS: 0.9 % Sodium Chloride Flush 3 ML SYRINGE IVFLUSH ×2 (04:25→08:01)
[2022-10-19 07:09] VITALS: BP 133/83; PULSE 88; RESP 20; TEMP 36.2; O2SAT 95
[2022-10-19 07:21] LABS: Hematocrit 49.7 % (42.0-52.0); Mean Corpuscular HGB Conc 34.2 g/dl (31.0-36.0); Mean Corpuscular Hemoglobin 34.1 pg (27.0-33.0); Mean Corpuscular Volume 99.8 fL (80.0-98.0); Mean Platelet Volume 10.2 fL (9.4-12.4); NRBC Pct Auto 0.2 /100WBC (0.0-0.2); Platelet Count 260 X10*3/uL (160-400); Red Blood Count 4.98 X10*6/uL (4.60-5.80); Red Cell Distribution Width 13.2 % (11.0-16.0); White Blood Count 8.7 X10*3/uL (4.8-10.8)
[2022-10-19 07:56] LABS: Anion Gap 17 (12-20); Blood Urea Nitrogen 22 mg/dL (9-16); Calcium 9.9 mg/dL (8.4-10.2); Carbon Dioxide 26 mmol/L (22-29); Chloride 99 mmol/L (96-108); Creatinine Clr Calc Pharmacy 153.5; Estimated Glomerular Filt Rate > 60; Glucose Fasting 86 mg/dL (60-99); Potassium 4.1 mmol/L (3.3-5.1); Sodium 138 mmol/L (135-145)
[2022-10-19] MEDS: Finasteride 5 MG TABLET PO (07:59)
[2022-10-19] MEDS: Pregabalin 150 MG CAPSULE PO ×3 (08:00→21:31)
[2022-10-19] MEDS: DULoxetine HCl 60 MG CAPSULE.DR PO (08:00)
[2022-10-19] MEDS: rOPINIRole HCL 2 MG TABLET PO ×3 (08:00→21:31)
[2022-10-19] MEDS: methIMAzole 5 MG TABLET PO (08:00)
[2022-10-19] MEDS: Mirabegron 25 MG TAB.ER.24H PO (08:00)
[2022-10-19] MEDS: Spironolactone 25 MG TABLET PO (08:00)
[2022-10-19] MEDS: Furosemide 40 MG/4 ML VIAL IVPUSH ×2 (08:00→18:03)
[2022-10-19] MEDS: Metoprolol Succinate ER 50 MG TAB.ER.24H PO (08:00)
[2022-10-19] MEDS: Apixaban 5 MG TABLET PO ×2 (08:00→21:31)
[2022-10-19] MEDS: predniSONE 5 MG TABLET PO (08:00)
[2022-10-19] MEDS: Acetaminophen 325 MG TABLET 975 MG PO ×2 (08:01→15:05)
--- NOTE | 2022-10-19 09:04 | HO.PM.IMPN ---
Subjective Subjective Date of Service: 10/19/22 Interval History: stable today Physical Exam Vital Signs: Vital Signs: Last Vital Signs Temp 97.1 F 10/19/22 07:09 Pulse 88 10/19/22 07:09 Resp 20 10/19/22 07:09 BP 133/83 10/19/22 07:09 Pulse Ox 95 10/19/22 07:09 O2 Del Method Room Air 10/19/22 07:09 O2 Flow Rate 2 10/19/22 04:00 Oxygen Flow Rate 3 10/13/22 11:00 BMI result Body Mass Index 51.1 GENERAL APPEARANCE: in no acute distress, on supplemental oxygen, morbidly obese. SKIN: no suspicious lesions, warm and dry. HEART: no murmurs, irregularly irregular rhythm. LUNGS: clear to auscultation bilaterally. ABDOMEN: Distended, dullness to percussion. EXTREMITIES: 2 to 3+ non pitting edema bilateral LE. PERIPHERAL PULSES: equal. NEUROLOGIC: nonfocal, alert and oriented. PSYCH: mood/affect full range. Objective Data Active Medications Acetaminophen (Acetaminophen 325 Mg Tablet) 975 mg PO TID [facility] Last Admin: 10/19/22 08:01 Dose: 975 mg Documented By: DARRIUS Albuterol Sulfate (Albuterol Sulfate 90 Mcg 8 Gm Inhaler) 2 puff INHALE Q6H PRN PRN Reason: for wheezing Apixaban (Apixaban 5 Mg Tablet) 5 mg PO BID [facility] Last Admin: 10/19/22 08:00 Dose: 5 mg Documented By: DARRIUS Atorvastatin Calcium (Atorvastatin Calcium 80 Mg Tablet) 80 mg PO BEDTIME [facility] Last Admin: 10/18/22 23:14 Dose: 80 mg Documented By: ELIJAH Docusate Sodium (Docusate Sodium 100 Mg Capsule) 100 mg PO DAILY PRN PRN Reason: Constipation Last Admin: 10/17/22 13:01 Dose: 100 mg Documented By: LORENA Doxazosin Mesylate (Doxazosin Mesylate 2 Mg Tablet) 8 mg PO BEDTIME [facility]; Protocol Last Admin: 10/18/22 23:14 Dose: 8 mg Documented By: ELIJAH Duloxetine HCl (Duloxetine Hcl 60 Mg Capsule.) 60 mg PO DAILY [facility] Last Admin: 10/19/22 08:00 Dose: 60 mg Documented By: DARRIUS Finasteride (Finasteride 5 Mg Tablet) 5 mg PO DAILY [facility] Last Admin: 10/19/22 07:59 Dose: 5 mg Documented By: DARRIUS Furosemide (Furosemide 40 Mg/4 Ml Vial) 40 mg IVPUSH BID@0900,1800 [facility]; Protocol Last Admin: 10/19/22 08:00 Dose: 40 mg Documented By: DARRIUS Methimazole (Methimazole 5 Mg Tablet) 5 mg PO DAILY [facility] Last Admin: 10/19/22 08:00 Dose: 5 mg Documented By: DARRIUS Methocarbamol (Methocarbamol 500 Mg Tablet) 500 mg PO BEDTIME PRN PRN Reason: Pain, Mild (Pain Scale 1-3) Last Admin: 10/18/22 23:14 Dose: 500 mg Documented By: ELIJAH Metoprolol Succinate (Metoprolol Succinate Er 50 Mg Tab.Er.24h) 50 mg PO DAILY [facility]; Protocol Last Admin: 10/19/22 08:00 Dose: 50 mg Documented By: DARRIUS Mirabegron (Mirabegron 25 Mg Tab.Er.24h) 25 mg PO DAILY [facility] Last Admin: 10/19/22 08:00 Dose: 25 mg Documented By: DARRIUS Ondansetron HCl (Ondansetron Hcl 4 Mg/2 Ml Vial) 4 mg IVPUSH Q8H PRN PRN Reason: Nausea and Vomiting Oxycodone HCl (Oxycodone Hcl Immed Release 5 Mg Tablet) 5 mg PO Q6H PRN PRN Reason: Pain, Moderate(Pain Scale 4-6) Last Admin: 10/18/22 23:14 Dose: 5 mg Documented By: ELIJAH Prednisone (Prednisone 5 Mg Tablet) 5 mg PO DAILY [facility] Last Admin: 10/19/22 08:00 Dose: 5 mg Documented By: DARRIUS Pregabalin (Pregabalin 150 Mg Capsule) 150 mg PO TID [facility] Last Admin: 10/19/22 08:00 Dose: 150 mg Documented By: DARRIUS Ropinirole HCl (Ropinirole Hcl 2 Mg Tablet) 2 mg PO TID [facility] Last Admin: 10/19/22 08:00 Dose: 2 mg Documented By: DARRIUS Sodium Chloride (0.9 % Sodium Chloride Flush 3 Ml Syringe) 3 ml IVFLUSH QSHIFT MICHELLE Last Admin: 10/19/22 08:01 Dose: 3 ml Documented By: DARRIUS Spironolactone (Spironolactone 25 Mg Tablet) 25 mg PO DAILY [facility]; Protocol Last Admin: 10/19/22 08:00 Dose: 25 mg Documented By: DARRIUS Labs 10/19/22 06:47 10/19/22 06:47 Labs: Laboratory Results - last 24 hr 10/19/22 10/19/22 06:47 06:47 MCV 99.8 H MCH 34.1 H MCHC 34.2 RDW 13.2 Plt Count 260 MPV 10.2 Absolute Nucleated RBC 0.020 H Nucleated RBC % (auto) 0.2 Anion Gap 17 Estim Creat Clear Calc 153.5 Estimated GFR > 60 Fasting Glucose 86 Calcium 9.9 Assessment and Plan (1) Osteoarthritis of right knee: Status: Acute (2) Congestive heart failure: Status: Acute (3) A-fib: Status: Acute Plan 67M PMH significant for?pAFib not on anticoagulation, lymphedema with chronic venous stasis, HTN, COPD on 2 L home O2, HTN, overactive bladder, and obesity class 3 who presented to the ED with?chest pain/pressure and worsening shortness of breath with exertion and at rest. Paroxysmal atrial fibrillation Continue metoprolol, Eliquis loaded with dig, continue po maintenance Acute on chronic systolic CHF diuresing well Continue IV Lasix, added aldactone Cardio following History of Eliquis intolerance due to hematuria Restarted Eliquis, monitor closely, no gross hematuria at this time Osteoarthritis oxycodone, Tylenol, methocarbamol Lymphedema/chronic lower leg edema Chronic ulcerations on right lower leg, no signs of active infection Continue furosemide Wound care Peripheral neuropathy Continue pregabalin, ropinirole Hyperthyroidism Continue methimazole Obesity class 3 Weight loss encouraged Full Code DVT Prophylaxis: Eliquis reason for continued hospitalization:iv diuresis Time Spent With Patient Time: Total time managing care of this patient today ____ minutes. Quality Stroke Does the patient have a stroke diagnosis?: No VTE Prior VTE?: No VTE Risk Level:: Medical - moderate - high VTE Device Contraindication: Treatment Not Indicated VTE Drug Contraindication: N/A - Med Ordered
[2022-10-19] MEDS: Digoxin 0.25 MG TABLET PO (09:31)
[2022-10-19 11:03] VITALS: BP 123/78; PULSE 77; RESP 20; TEMP 36; O2SAT 97
--- NOTE | 2022-10-19 11:28 | PM.PNCARD ---
Subjective Subjective Date of Service: 10/19/22 Interval history: Seen examined at bedside. Was loaded with digoxin last evening. Physical Exam Vital Signs: Last Vital Signs Temp 96.8 F 10/19/22 11:03 Pulse 77 10/19/22 11:03 Resp 20 10/19/22 11:03 BP 123/78 10/19/22 11:03 Pulse Ox 97 10/19/22 11:03 O2 Del Method Room Air 10/19/22 11:03 O2 Flow Rate 2 10/19/22 04:00 Oxygen Flow Rate 3 10/13/22 11:00 BMI result Body Mass Index 51.1 GENERAL APPEARANCE: in no acute distress, morbidly obese. SKIN: no suspicious lesions, warm and dry. HEART: no murmurs, irregularly irregular rhythm. LUNGS: clear to auscultation bilaterally. ABDOMEN: Distended, dullness to percussion. EXTREMITIES: 2 to 3+ non pitting edema bilateral LE. PERIPHERAL PULSES: equal. NEUROLOGIC: nonfocal, alert and oriented. PSYCH: mood/affect full range. Objective Labs and Meds 10/19/22 06:47 10/19/22 06:47 Lab results: Laboratory Results - last 24 hr 10/19/22 10/19/22 06:47 06:47 WBC 8.7 RBC 4.98 Hgb 17.0 Hct 49.7 MCV 99.8 H MCH 34.1 H MCHC 34.2 RDW 13.2 Plt Count 260 MPV 10.2 Absolute Nucleated RBC 0.020 H Nucleated RBC % (auto) 0.2 Sodium 138 Potassium 4.1 Chloride 99 Carbon Dioxide 26 Anion Gap 17 BUN 22 H Creatinine 0.87 Estim Creat Clear Calc 153.5 Estimated GFR > 60 Fasting Glucose 86 Calcium 9.9 Progress Note: A&P Assessment and plan (1) Congestive heart failure: Status: Acute (2) A-fib: Status: Acute Plan [age] gentleman with morbid obesity and chronic dyspnea on exertion presenting with worsening shortness of breath and clinical volume overload and new diagnosis of atrial fibrillation. Rate control strategy for now. Continue Toprol-XL and digoxin. We will attempt cardioversion for in 4 weeks as outpatient. He previously had hematuria which led to interruption of apixaban I think he should receive apixaban consistently for few weeks to make sure that he is now going to have immature a again. Urinalysis did not show any evidence of infection. Continue IV diuretics today. Tomorrow can be changed to 40 mg p.o. Lasix b.i.d.. He should continue the spironolactone 25 mg daily. Digoxin 250 mcg on Friday and Friday. If feeling better tomorrow then can be discharged home and we can arrange further workup as outpatient. I have urged him to see weight management program. Thank you for allowing me to participate in the care of your patient. Please feel free to contact me if you have any questions. Time Spent With Patient Time: Total time managing care of this patient today ____ minutes. Progress Note: Quality Stroke Does the patient have a stroke diagnosis?: No Procedures Date of Service Date of Service: 10/19/22
[2022-10-19 15:35] VITALS: BP 134/81; PULSE 82; RESP 18; TEMP 36.2; O2SAT 96
[2022-10-19 19:11] VITALS: BP 126/73; PULSE 89; RESP 18; TEMP 36.8; O2SAT 95
[2022-10-19] MEDS: methocarbamoL 500 MG TABLET PO (21:30)
[2022-10-19] MEDS: Atorvastatin Calcium 80 MG TABLET PO (21:31)
[2022-10-19] MEDS: oxyCODONE HCl Immed Release 5 MG TABLET PO (21:31)
[2022-10-19] MEDS: Doxazosin Mesylate 2 MG TABLET 8 MG PO (21:31)
[2022-10-19 23:32] VITALS: BP 140/75; PULSE 99; RESP 20; TEMP 35.9; O2SAT 95
[2022-10-20] MEDS: 0.9 % Sodium Chloride Flush 3 ML SYRINGE IVFLUSH ×2 (03:31→08:44)
[2022-10-20 03:36] VITALS: BP 107/73; PULSE 74; RESP 20; TEMP 36.2; O2SAT 94
[2022-10-20 06:24] LABS: Anion Gap 12 (12-20); Blood Urea Nitrogen 22 mg/dL (9-16); Calcium 9.6 mg/dL (8.4-10.2); Carbon Dioxide 26 mmol/L (22-29); Chloride 103 mmol/L (96-108); Creatinine Clr Calc Pharmacy 128.4; Estimated Glomerular Filt Rate > 60; Glucose Fasting 117 mg/dL (60-99); Magnesium 2.1 mg/dL (1.6-2.6); Sodium 137 mmol/L (135-145)
[2022-10-20 06:39] LABS: Hematocrit 49.8 % (42.0-52.0); Mean Corpuscular HGB Conc 34.1 g/dl (31.0-36.0); Mean Corpuscular Hemoglobin 33.8 pg (27.0-33.0); Mean Platelet Volume 10.6 fL (9.4-12.4); Platelet Count 259 X10*3/uL (160-400); Red Blood Count 5.03 X10*6/uL (4.60-5.80); Red Cell Distribution Width 13.1 % (11.0-16.0); White Blood Count 10.7 X10*3/uL (4.8-10.8)
[2022-10-20 07:30] VITALS: BP 133/85; PULSE 82; RESP 20; TEMP 36.4; O2SAT 97
[2022-10-20] MEDS: Mirabegron 25 MG TAB.ER.24H PO (08:43)
[2022-10-20] MEDS: DULoxetine HCl 60 MG CAPSULE.DR PO (08:43)
[2022-10-20] MEDS: rOPINIRole HCL 2 MG TABLET PO (08:43)
[2022-10-20] MEDS: Acetaminophen 325 MG TABLET 975 MG PO (08:43)
[2022-10-20] MEDS: Apixaban 5 MG TABLET PO (08:43)
[2022-10-20] MEDS: Metoprolol Succinate ER 50 MG TAB.ER.24H PO (08:43)
[2022-10-20] MEDS: Furosemide 40 MG TABLET PO (08:44)
[2022-10-20] MEDS: Finasteride 5 MG TABLET PO (08:44)
[2022-10-20] MEDS: Spironolactone 25 MG TABLET PO (08:44)
[2022-10-20] MEDS: methIMAzole 5 MG TABLET PO (08:44)
[2022-10-20] MEDS: Pregabalin 150 MG CAPSULE PO (08:44)
--- NOTE | 2022-10-20 08:53 | P.DS_ITS ---
DS: Providers Provider Date of Service: 10/20/22 Date of admission: 10/14/22 13:50 Primary care physician: BRENDEN Mathis Consults: 10/13/22 16:28 Consult to Cardiology Routine [place]ing [place] [facility] [place] [facility] Reason for consultation: Symptomatic AFib, not on anticoagulation 10/15/22 10:18 Consult to Orthopedics Routine Consulting Provider[place] [facility] [place] [facility] Reason for consultation: Osteoarthritis with knees pain DS: Diagnosis Discharge Diagnosis (1) Congestive heart failure: Status: Acute (2) A-fib: Status: Acute DS: Summary Hospital Course Hospital Course: from initial hpi: 67-year-old male with a PMH significant for?AFib not on anticoagulation, lymphedema with chronic venous stasis, HTN, COPD on 2 L home O2, HTN, overactive bladder, and obesity class 3 who presents to the ED with?chest pain/pressure and worsening shortness of breath with exertion and at rest.? Patient was recently diagnosed with AFib by his PCP 3-4 weeks ago and started Eliquis.? After 2 weeks on Eliquis patient begin to notice his urine was brown. PCP ordered labs that found blood in the urine.? Eliquis was then discontinued, last dose 7-10 days ago.? PCP then ordered echocardiogram and Holter monitor, which patient wore up until this morning.? Patient began noticing increased shortness of breath with exertion and at rest a couple of days ago.? Has felt his heart ?fluttering? for the past week.? This morning patient awoke he felt a sharp shooting pain that began on his left side under his breast that would radiate across his chest.? States he also felt a ?stiffness and heaviness? on his chest that radiated to his left shoulder.? Patient called Cardiology who then sent him to the emergency room for further evaluation. Patient also notes he has chronic osteoarthritis, particularly of his hands.? While on Eliquis was not taking his naproxen and he noticed severe pain and reduced ROM in hands.? Patient resumed taking naproxen once he was off Eliquis, says is now back to baseline with his osteoarthritis. Complains of chronic lower leg edema and chronic wounds on right leg, at baseline. He follows up with wound care clinic every week.? Denies nausea, vomiting, diarrhea.? No abdominal pain.? Denies headache, vision changes.? No change to bowel or bladder habits. In the ED patient was afebrile but tachypneic up to 24, setting up to 98% on 2 L NC. Labs were largely unremarkable:? No leukocytosis.? Electrolytes WNL.? Serial troponins negative. BNP negative. Renal function baseline. CXR showed mild central vascular prominence without overt pulmonary edema, similar to previous.? Otherwise no acute process is seen. EKG demonstrated atrial fibrillation without evidence of ST elevations or depressions. Pt was treated with morphine. Pt will be admitted to the hospital under observation on telemetry for further evaluation and monitoring of symptomatic AFib. hospital course: Patient was admitted for paroxysmal atrial fibrillation with rapid ventricular response. He was continued on metoprolol and restarted on Eliquis which had previously be held for hematuria. He had no hematuria during hospitalization. He was loaded with digoxin and will continue on 250 mcg 3 times a week. Heart rate became better controlled. He will follow up outpatient with Cardiology for possible cardioversion. Patient also noted to have acute on chronic systolic CHF. He was given IV Lasix and Aldactone and diuresed well, is approximately - 20 L. Plan discharge Lasix has been increased to 40 mg b.i.d.. For peripheral neuropathy was continued on Lyrica, for hyperthyroid was continued on methimazole. For obesity weight loss recommended. Patient is feeling better will be discharged home. Time Spent with Patient Time attestation: Total time managing care of this patient today ____ minutes. Discharge coordination time: Greater than 30 minutes Quality: Safe Use of Opioids Does Pt have an Active Cancer Diagnosis on the Problem List?: No Quality: Stroke Does the patient have a stroke diagnosis?: No Physical Exam Vital Signs: Vital Signs: Last Vital Signs Temp 97.6 F 10/20/22 07:30 Pulse 82 10/20/22 07:30 Resp 20 10/20/22 07:30 BP 133/85 10/20/22 07:30 Pulse Ox 97 10/20/22 07:30 O2 Del Method Room Air 10/20/22 07:30 O2 Flow Rate 2 10/19/22 04:00 Oxygen Flow Rate 3 10/13/22 11:00 BMI result Body Mass Index 51.1 GENERAL APPEARANCE: in no acute distress, morbidly obese. SKIN: no suspicious lesions, warm and dry. HEART: no murmurs, irregularly irregular rhythm. LUNGS: clear to auscultation bilaterally. ABDOMEN: Distended, dullness to percussion. EXTREMITIES: 2 to 3+ non pitting edema bilateral LE. PERIPHERAL PULSES: equal. NEUROLOGIC: nonfocal, alert and oriented. PSYCH: mood/affect full range. DS: Data Data Completed and Pending Completed studies during hospitalization [Text1]: Procedures Assistance with Respiratory Ventilation, Less than 24 Consecutive Hours, Continuous Positive Airway Pressure (05/16/20) Introduction of Remdesivir Anti-infective into Peripheral Vein, Percutaneous Approach, [employer] (05/16/20) Labs on day of discharge: Laboratory Results - last 24 hr 10/20/22 10/20/22 05:56 05:56 WBC 10.7 RBC 5.03 Hgb 17.0 Hct 49.8 MCV 99.0 H MCH 33.8 H MCHC 34.1 RDW 13.1 Plt Count 259 MPV 10.6 Absolute Nucleated RBC 0.000 Nucleated RBC % (auto) 0.0 Sodium 137 Potassium 4.0 Chloride 103 Carbon Dioxide 26 Anion Gap 12 BUN 22 H Creatinine 1.04 Estim Creat Clear Calc 128.4 Estimated GFR > 60 Fasting Glucose 117 H Calcium 9.6 Magnesium 2.1 Discharge Plan Discharge Anticipated Discharge Date/Time: 10/20/22 08:50 Patient Disposition: Home, Self-Care Discharge Diagnosis: chf [place] [facility] [place]Provider Group] - 2 days Diego Augustine FNP- [Primary Care Provider] - 1 Week Physician,Kleber Bowens [Physician] - 2 days Discharge Medications: New Eliquis 5 mg Tablet 5 mg PO BID Qty: 60 0RF furosemide 40 mg Tablet 40 mg PO BID@0900,1800 Qty: 60 0RF Protocol: Hold for SBP< HOLD for SBP < : 90 digoxin 250 mcg (0.25 mg) Tablet 0.25 mg PO Q2D Qty: 30 0RF spironolactone 25 mg Tablet 25 mg PO DAILY Qty: 30 0RF Protocol: Hold for SBP< HOLD for SBP < : 90 Continued Anoro Ellipta 62.5-25 mcg/actuation blister with device 1 inh PO DAILY Qty: 60 3RF atorvastatin 80 mg tablet 80 mg PO BEDTIME 90 Days Qty: 90 1RF methimazole 5 mg tablet 5 mg PO DAILY Qty: 30 5RF doxazosin 8 mg tablet 8 mg PO BEDTIME 30 Days Qty: 30 5RF metoprolol succinate 50 mg tablet extended release 24 hr 50 mg PO DAILY Qty: 90 1RF finasteride 5 mg tablet 5 mg PO DAILY 90 Days Qty: 90 1RF pregabalin 150 mg capsule 150 mg PO TID 30 Days Qty: 90 2RF ropinirole 2 mg tablet 2 mg PO TID albuterol sulfate 90 mcg/actuation HFA aerosol inhaler 2 puff PO Q6H PRN (Reason: for wheezing) duloxetine 60 mg capsule,delayed release(DR/EC) 60 mg PO DAILY methocarbamol 500 mg tablet 500 mg PO BEDTIME PRN (Reason: arthritis) mirabegron 25 mg tablet extended release 24 hr 25 mg PO DAILY 30 Days Qty: 30 1RF Discontinued furosemide 20 mg tablet 20 mg PO DAILY aspirin 81 mg tablet,delayed release (DR/EC) 81 mg PO DAILY naproxen 500 mg tablet 750 mg PO BEDTIME naproxen 500 mg tablet 500 mg PO DAILY Discharge Orders: Discharge Order (Routine); Ordered 10/20/22 Ordered By: Abdulkadir Gray Diet: Advance to usual diet Activity on Discharge: As tolerated Stand Alone Forms: Patient Portal Discharge page, Work/School Release Activity Restrictions/Additional Instructions: Take your medications as prescribed. If you were prescribed antibiotics today, it is important that you take your medication to their entirety, do not skip any doses, do not finish them early. Follow-up with your primary care provider this week. Please follow-up with cardiology as soon as possible Return to the emergency department with new or worsening symptoms. Such as fevers, chills, chest pain, shortness of breath, nausea, vomiting, dizziness, headache, vision changes, lethargy In case of emergency call 911 Care Plan Goals: recovery Health Concerns: chf, afib Plan of Treatment: med changes as above, follow up with cardiology Assessment: see above Patient Instructions: Chest Pain (DC), Shortness of Breath (ED)
--- NOTE | 2022-10-20 09:12 | MHC.CM.PN ---
pt dcd home no skilled services ordered by
== END 2022-10-20 09:32 | disposition home or self-care (01) | DRG 291 ==
LOC: HO.ED 15:22 → HO.EDOVER 16:36 → HO.IMC 10-14 06:56
PROVIDERS: Internal Medicine Cardiovascular Disease; Physician Assistant; Student in an Organized Health Care Education/Training Program; Admitting Provider Student in an Organized Health Care Education/Training Program; Emergency Provider Emergency Medicine; PCP Nurse Practitioner Family; Visit Provider Internal Medicine
DX: I11.0 Hypertensive heart disease with heart failure (principal); I50.23 Acute on chronic systolic (congestive) heart failure; I87.311 Chronic venous hypertension (idiopathic) with ulcer of right lower extremity; L97.919 Non-pressure chronic ulcer of unspecified part of right lower leg with unspecified severity; Z68.43 Body mass index [BMI] 50.0-59.9, adult; E66.01 Morbid (severe) obesity due to excess calories; I27.20 Pulmonary hypertension, unspecified; I48.0 Paroxysmal atrial fibrillation; N32.81 Overactive bladder; M17.11 Unilateral primary osteoarthritis, right knee; E05.90 Thyrotoxicosis, unspecified without thyrotoxic crisis or storm; N30.20 Other chronic cystitis without hematuria; G62.9 Polyneuropathy, unspecified; Z20.822 Contact with and (suspected) exposure to COVID-19; Z99.81 Dependence on supplemental oxygen; Z87.891 Personal history of nicotine dependence; Z79.899 Other long term (current) drug therapy
CPT/HCPCS: 36415; 71045; 80048; 83735; 83880; 84300; 84443; 84484; 85025; 85027; 85379; 85610; 85652; 86140; 86200; 86431; 87635; 93005; 99222; 99285; J1040; J1160; J1650; J1940; J2270

== ENCOUNTER → 2022-10-13 16:28 | Outpatient (BNV) | payer MEDICARE, SELFPAY | PROVIDERS: Admitting Provider Student in an Organized Health Care Education/Training Program; Emergency Provider Emergency Medicine; Visit Provider Student in an Organized Health Care Education/Training Program | DX: I50.9 Heart failure, unspecified (principal); I48.91 Unspecified atrial fibrillation | CPT/HCPCS: 99222; 99232; 99233; 99239 ==

== ENCOUNTER → 2022-10-13 16:28 | Outpatient (BNV) | payer MEDICARE, SELFPAY | PROVIDERS: Admitting Provider Student in an Organized Health Care Education/Training Program; Emergency Provider Emergency Medicine; Visit Provider Internal Medicine Cardiovascular Disease | DX: I50.9 Heart failure, unspecified (principal); I48.91 Unspecified atrial fibrillation | CPT/HCPCS: 99223; 99232 ==

== ENCOUNTER → 2022-10-14 13:50 | Outpatient (BNV) | payer MEDICARE, SELFPAY | PROVIDERS: Admitting Provider Student in an Organized Health Care Education/Training Program; Emergency Provider Emergency Medicine; PCP Nurse Practitioner Family; Visit Provider Physician Assistant | DX: M17.11 Unilateral primary osteoarthritis, right knee (principal) | CPT/HCPCS: 20610; 99232 ==

== ENCOUNTER 2022-10-23 12:45 | Outpatient (AMB) | payer MEDICARE, SELFPAY ==
[2022-10-23 13:01] VITALS: BP 98/62; PULSE 94; O2SAT 96; BMI 52.4
--- NOTE | 2022-10-23 13:01 | MHC.OFFVIS ---
Intake Vital Signs 10/23/22 13:01 Height 6 ft 4 in Weight 430 lb 5.477 oz BMI 52.4 BP 98/62 Blood Pressure Location Lt brachial Position Sitting Pulse 94 Pulse Source Monitor Pulse Oximetry (%) 96 Oxygen Delivery Method Nasal Cannula Oxygen Flow Rate 2 Intake Visit Reasons: [facility] [place] FOLLOW UP Intake Note: [facility] [place] follow up with EKG. 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 Accompanied by: Spouse Allergies No Known Allergies [No Known Allergies*] Allergy (Verified 10/23/22 13:06) Medication List - Last Reconciled 10/23/22 by Dejan King MD albuterol sulfate 90 mcg/actuation 2 puffs PO Q6H PRN Anoro Ellipta 62.5-25 mcg/actuation (umeclidinium-vilanterol) 1 inh PO DAILY NS apixaban (Eliquis) 5 mg PO BID atorvastatin 80 mg PO BEDTIME 90 days digoxin 0.25 mg PO Q2D doxazosin 8 mg PO BEDTIME 30 days duloxetine 60 mg PO DAILY finasteride 5 mg PO DAILY 90 days furosemide 40 mg See Protocol PO BID@0900,1800 methimazole 5 mg PO DAILY methocarbamol 500 mg PO BEDTIME PRN metoprolol succinate ER 50 mg PO DAILY mirabegron ER 25 mg PO DAILY 30 days pregabalin 150 mg PO TID 30 days ropinirole 2 mg PO TID spironolactone 25 mg See Protocol PO DAILY HPI HPI Comments History of Present Illness Details Pleasant 67 gentleman here for follow-up. He was seen in the hospital recently with significant volume overload and heart failure. He was also in new onset atrial fibrillation and apparently received Eliquis as outpatient and had hematuria. He was off Eliquis when he got admitted to the hospital. He was diuresed and sent home on 40 mg p.o. b.i.d. Lasix, spironolactone 25 mg daily, digoxin 250 micro g every other day and Toprol-XL. His returning because he has been feeling dizzy and lightheaded. He continues to be short of breath. He was previously doing pulmonary rehabilitation for he lung disease. He has been on supplemental oxygen for long time. No hematuria on follow-up and he has been tolerating the Eliquis. [facility] Medical History Bladder outlet obstruction Chronic cystitis COPD (chronic obstructive pulmonary disease) COPD (chronic obstructive pulmonary disease) COPD (chronic obstructive pulmonary disease) COVID-19 MATUTE (dyspnea on exertion) Hereditary lymphedema History of diverticulitis History of umbilical hernia Injury of right rotator cuff Lymphedema Morbid obesity Morbid obesity JEFFRY (obstructive sleep apnea) JEFFRY on CPAP Respiratory failure with hypoxia Restless leg syndrome Restrictive lung disease Sensory neuropathy Traumatic complete tear of right rotator cuff Venous insufficiency Surgical History History of appendectomy History of arthroscopy of left knee Hx of colonoscopy Family History Father Arthritis Diabetes Mother Arthritis Kidney stones Family/Other Arthritis Sister No problems noted. Sister No problems noted. Son No problems noted. 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 [employer] Cognitive needs: No Hearing needs: No Vision needs: No Review of Systems Const Denies weakness ENT Denies dizziness Card Denies chest pain, Denies chest pain with activity, Denies syncope, Denies rapid heart rate, Denies pedal edema, Denies edema, Denies leg edema, Denies lightheadedness, Denies palpitations, Denies dyspnea, Denies dyspnea on exertion and Denies orthopnea Resp Denies cough, Denies dyspnea and Denies dyspnea on exertion GI Denies hematochezia and Denies change in stool character Musc Denies abnormal gait, Denies muscle cramps, Denies muscle weakness, Denies numbness, Denies radiating pain into limb and Denies tingling Neuro Denies abnormal gait, Denies dizziness, Denies syncope, Denies numbness, Denies tingling and Denies weakness Endo Denies palpitations Physical Exam Vital Signs: Last Vital Signs Pulse 94 10/23/22 13:01 BP 98/62 10/23/22 13:01 Pulse Ox 96 10/23/22 13:01 Oxygen Delivery Method Nasal Cannula 10/23/22 13:01 Oxygen Flow Rate 2 10/23/22 13:01 BMI result Body Mass Index 52.4 GENERAL APPEARANCE: in no acute distress, morbidly obese. SKIN: no suspicious lesions, warm and dry. HEART: no murmurs, irregularly irregular rhythm. LUNGS: clear to auscultation bilaterally. ABDOMEN: Distended, dullness to percussion. EXTREMITIES: 2 to 3+ non pitting edema bilateral LE. PERIPHERAL PULSES: equal. NEUROLOGIC: nonfocal, alert and oriented. PSYCH: mood/affect full range. Office Procedures EKG Details: Atrial fibrillation, right bundle-branch block leftward axis, heart rate 94 beats per minute, QTC 490 milliseconds. [id number], Complete Assessment & Plan Assessment & Plan (1) Congestive heart failure: Code(s): I50.9 - Heart failure, unspecified (2) A-fib: Code(s): I48.91 - Unspecified atrial fibrillation Plan 67 gentleman who is presenting after recent admission to [facility] with congestive heart failure. He was diuresed and discharged home. He also has new onset atrial fibrillation. He has been started on apixaban and has been tolerating at this stage and has no hematuria. He is complaining of some dizziness and lightheadedness. His blood pressure is low. I think he is over diuresed at this stage. I have advised to hold the Lasix for next 2 days. He will resume Lasix 40 mg once a day on Friday morning. He will also check his weight daily. I have advised him to check his blood pressure at home. We will send us script for a blood pressure cuff. Continue his medications otherwise is as before. In 4 weeks we will reassess him and consider cardioversion. We discussed about bariatric consultation and weight loss which will be critical for him at this stage with multiple comorbidities due to obesity. Thank you for allowing me to participate in the care of your patient. Please feel free to contact me if you have any questions. Medications: New blood pressure monitor As directed 1 ea 0RF blood pressure kit-extra large As directed 1 ea 0RF I50.9 - Heart failure, unspecified furosemide (Lasix) 40 mg PO DAILY 90 tabs 3RF I50.9 - Heart failure, unspecified Discontinued furosemide Discontinued Reason: None 40 mg See Protocol PO BID@0900,1800 60 tabs 0RF naproxen one tab in the am, 1.5 tabs in the pm PO; do not take with meloxicam 90 days 225 tabs 0RF albuterol sulfate 90 mcg/actuation 2 puffs PO Q4-6H PRN 51 grams 3RF for wheezing Coding Level of Care Code Est Pt Level 4 (41208) Diagnoses Congestive heart failure I50.9 A-fib I48.91 CPT Codes EKG - CPT: [id number], Complete ([id number])
== END 2022-10-23 13:52 | disposition home or self-care (01) ==
PROVIDERS: PCP Nurse Practitioner Family; Visit Provider Internal Medicine Cardiovascular Disease
DX: I50.9 Heart failure, unspecified (principal); I48.91 Unspecified atrial fibrillation
CPT/HCPCS: 93010; 99214

== ENCOUNTER → 2022-10-23 | Outpatient (BNVA) | payer MEDICARE, SELFPAY | PROVIDERS: PCP Nurse Practitioner Family; Visit Provider Internal Medicine Cardiovascular Disease | DX: I50.9 Heart failure, unspecified (principal); I48.91 Unspecified atrial fibrillation; I45.10 Unspecified right bundle-branch block | CPT/HCPCS: 93005; 99212 ==

== ENCOUNTER → 2022-10-29 16:15 | Outpatient (AMB) | payer MEDICARE, SELFPAY ==
[2022-10-29 16:20] VITALS: BP 110/72; PULSE 85; O2SAT 98; BMI 53.4
--- NOTE | 2022-10-29 16:20 | MHC.PC.OV ---
Vital Signs 10/29/22 16:20 Height 6 ft 4 in Weight 439 lb BMI 53.4 BP 110/72 Blood Pressure Location Lt brachial Position Sitting Pulse 85 Pulse Source Pulse Oximeter Pulse Oximetry (%) 98 Oxygen Delivery Method Nasal Cannula Intake Visit Reasons: HDF ~ Post hospital discharge FU Allergies No Known Allergies [No Known Allergies*] Allergy (Verified 10/29/22 17:41) Medication List - Last Reconciled 10/29/22 by DIANA PickettP- albuterol sulfate 90 mcg/actuation 2 puffs PO Q6H PRN Anoro Ellipta 62.5-25 mcg/actuation (umeclidinium-vilanterol) 1 inh PO DAILY NS apixaban (Eliquis) 5 mg PO BID atorvastatin 80 mg PO BEDTIME 90 days blood pressure kit-extra large As directed blood pressure monitor As directed digoxin 0.25 mg PO Q2D doxazosin 8 mg PO BEDTIME 30 days duloxetine 60 mg PO DAILY finasteride 5 mg PO DAILY 90 days furosemide (Lasix) 40 mg PO DAILY methimazole 5 mg PO DAILY methocarbamol 500 mg PO BEDTIME PRN 30 days metoprolol succinate ER 50 mg PO DAILY mirabegron ER 25 mg PO DAILY 30 days oxycodone 5 mg PO BID PRN 8 days pregabalin 150 mg PO TID 30 days ropinirole 2 mg PO TID spironolactone 25 mg See Protocol PO DAILY Tobacco use date assessed: 10/29/22 Fall risk assessment: No Falls in past year Last assessed Fall Risk: 10/29/22 Dental Screening Dental Screen Date: 10/29/22 Did you have a dental visit in the last 12 months?: Yes Did you have a dental problem in the last 6 months where you did not have access to dental care?: No Was dental information given to patient?: Patient has dentist HPI HDF ~ Post hospital discharge FU HPI Details Pt was seen in the ER on 10/13 c/o shortness of breath and chest pressure. Labs were baseline. Troponin was negative x2. BNP was WNL. D-dimer was negative. COVID negative. Chest xr showed mild central vascular prominence without overt pulmonary edema similar to previous, no acute findings. EKG showed afib without evidence of ST elevations or depressions. Pt was given morphine. He was seen by cardiology who recommended admission for observation due to paroxysmal atrial fibrillation with rapid ventricular response. Pt was continued on metoprolol and restarted on eliquis (previously stopped due to hematuria). He was loaded with digoxin and continued at d/c 3 times a week. Pt was noted to have acute on chronic systolic CHF, given IV lasix and aldactone. Pt was d/c on lasix 40mg bid. Pt has seen cardiology and has another appointment on 11/21. Pt reports doing well overall, breathing is better. He reports pain due to arthritis (off naproxen, on oxy for severe pain). Will refer to rheumatology. Denies chest pain, shortness of breath, and dizziness. Pt is interested in weight loss. Will send wegovy. [facility] Medical History Bladder outlet obstruction Chronic cystitis COPD (chronic obstructive pulmonary disease) COPD (chronic obstructive pulmonary disease) COPD (chronic obstructive pulmonary disease) COVID-19 MATUTE (dyspnea on exertion) Hereditary lymphedema History of diverticulitis History of umbilical hernia Injury of right rotator cuff Lymphedema Morbid obesity Morbid obesity JEFFRY (obstructive sleep apnea) JEFFRY on CPAP Respiratory failure with hypoxia Restless leg syndrome Restrictive lung disease Sensory neuropathy Traumatic complete tear of right rotator cuff Venous insufficiency Surgical History Hx of colonoscopy History of appendectomy History of arthroscopy of left knee Family History Father Arthritis Diabetes Mother Arthritis Kidney stones Family/Other Arthritis Sister No problems noted. Sister No problems noted. Son No problems noted. 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 Marc Victoria, Karen Nguyen, Tristan Dominguez and colleagues, with an educational juan from [employer]. Review of Systems Const Reports as per HPI Physical exam (Primary Care) Vital Signs: Last Vital Signs Pulse 85 10/29/22 16:20 BP 110/72 10/29/22 16:20 Pulse Ox 98 10/29/22 16:20 Oxygen Delivery Method Nasal Cannula 10/29/22 16:20 BMI result Body Mass Index 53.4 Tobacco/Smoking Status: Tobacco use Status Tobacco use date assessed 10/29/22 10/29/22 16:27 Patient Tobacco Use Status Former Tobacco user 10/29/22 16:22 e-Cigarette/Vaping Use Never Used 10/29/22 16:22 Thrive Assessment: Date of Thrive Assessment Date Thrive assessed 10/14/22 10/29/22 16:22 Const Other: Cane used, portable O2 General: cooperative Nutritional Appearance: obese morbidly obese Orientation/consciousness: patient oriented x3 Resp Other: scattered wheezes though moving air bilat Effort & Inspection: normal respiratory effort Cardio Rate: regular rate Rhythm: abnormal rhythm (afib) irregularly irregular Neuro General: patient oriented x3 Extrem Other: lymphedema noted to BLE, wrapped. Psych Appearance: grossly normal Mental Status: mental status grossly normal Speech and movement: Normal speech and movement present Affect: normal affect Attitude: cooperative Thought process: Normal thought process present Thought content: Normal thought content present Insight: Good insight present (Psych) Judgement: Good judgement present (Psych) Assessment and Plan Assessment & Plan (1) Arthritis: Code(s): M19.90 - Unspecified osteoarthritis, unspecified site Plan: Referred to rheumatology (2) A-fib: Code(s): I48.91 - Unspecified atrial fibrillation (3) Lymphedema: Comment: IT IS A CHRONIC PROBLEM, followed by wound care and vascular Code(s): I89.0 - Lymphedema, not elsewhere classified (4) COPD (chronic obstructive pulmonary disease): Comment: COPD/reactive airways, well controlled and stable. TX: Continue Anoro Ellipta 1 inhalation daily. Advair does reduced to 250-50, 1 inhalation b.i.d.. Albuterol HFA 2 puffs Q 4-6 hours only p.r.n. ADVISED TO CONTINUE PARTICIPATING IN THE PULMONARY REHAB PROGRAM, WHICH IS DEFINITELY HELPING HIM. Code(s): J44.9 - Chronic obstructive pulmonary disease, unspecified (5) Morbid obesity: Code(s): E66.01 - Morbid (severe) obesity due to excess calories (6) Congestive heart failure: Comment: continue all meds as prescribed, INCLUDING LASIX Code(s): I50.9 - Heart failure, unspecified Plan The patient agreed to the use of a medical staff services coordinator for this encounter. Scribed for BRENDEN Goldstein by Temitope Navarro medical staff services coordinator, on 10/29/2022 at 16:40 EST. Orders: Referrals Rheumatology Referral M19.90 - Unspecified osteoarthritis, unspecified site Medications: New semaglutide (weight loss) (Vonnie) administer weeks 1 through 4 of therapy 0.25 mg (0.5 mL) subcut QWEEK 2 mL 0RF Coding Level of Care Code Est Pt Level 3 (84066) Diagnoses Arthritis M19.90 A-fib I48.91 Lymphedema I89.0 COPD (chronic obstructive pulmonary disease) J44.9 Morbid obesity E66.01 Congestive heart failure I50.9
== END ==
PROVIDERS: PCP Nurse Practitioner Family; Visit Provider Nurse Practitioner Family
DX: I48.91 Unspecified atrial fibrillation (principal); J44.9 Chronic obstructive pulmonary disease, unspecified; Z68.43 Body mass index [BMI] 50.0-59.9, adult; E66.01 Morbid (severe) obesity due to excess calories; I50.9 Heart failure, unspecified; M19.90 Unspecified osteoarthritis, unspecified site; I89.0 Lymphedema, not elsewhere classified
CPT/HCPCS: 99213

== ENCOUNTER 2022-11-01 09:11 | Outpatient (AMB) | payer MEDICARE, SELFPAY ==
--- NOTE | 2022-11-01 09:12 | A.OFFVIS_ITS ---
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 Accompanied by: Self / Same As Patient Allergies No Known Allergies [No Known Allergies*] Allergy (Verified 11/01/22 09:12) Medication List - Last Reconciled 11/01/22 by Prabhu Head MD albuterol sulfate 90 mcg/actuation 2 puffs PO Q6H PRN Anoro Ellipta 62.5-25 mcg/actuation (umeclidinium-vilanterol) 1 inh PO DAILY NS apixaban (Eliquis) 5 mg PO BID atorvastatin 80 mg PO BEDTIME 90 days blood pressure kit-extra large As directed blood pressure monitor As directed digoxin 0.25 mg PO Q2D doxazosin 8 mg PO BEDTIME 90 days duloxetine 60 mg PO DAILY finasteride 5 mg PO DAILY 90 days furosemide (Lasix) 40 mg PO DAILY methimazole 5 mg PO DAILY methocarbamol 500 mg PO BEDTIME PRN 30 days metoprolol succinate ER 50 mg PO DAILY mirabegron ER 25 mg PO DAILY 90 days oxycodone 5 mg PO BID PRN 8 days pregabalin 150 mg PO TID 30 days ropinirole 2 mg PO TID semaglutide (weight loss) (Wegovy) 0.25 mg (0.5 mL) subcut QWEEK spironolactone 25 mg See Protocol PO DAILY HPI HPI Comments History of Present Illness Details Dinh is a very pleasant male. He is a patient of Dr. Chong. He is seen for the following urologic conditions - chronic cystitis - lower urinary tract symptoms Telemedicine Evaluation 15 min Consultation DivvyDown Suzy Video attempted Goes to wound clinic clinic for lymphedema Using lower body pump Still with urgency and frequency Trial of overactive bladder medications Trial Myrbetriq Lower urinary tract symptoms - predominant urgency Did notice improved stream with doxazosin 8 mg and finasteride Still with urge - responsive to myrbetriq Hematuria: Chronic cystitis on prior biopsy Episode of marked hematuria October 2020 Microscopic hematuria was diagnosed during routine UA. They are here for the cystoscopy and discussion of imaging findings. Since the last visit the patient has has not noticed gross hematuria, continues to test positive for microscopic hematuria. Relevant medical history for no pertinent medical history. PSA 01/07 1.6, 05/09 1.3 Radiographic imaging: CT KUB NAD - bilateral renal cyst. Cystoscopy findings September 2018 chronic cystitis. Therapeutic plan follow-up in 6 months [facility] Medical History Hereditary lymphedema Venous insufficiency Morbid obesity Lymphedema COPD (chronic obstructive pulmonary disease) Sensory neuropathy COVID-19 Respiratory failure with hypoxia Restrictive lung disease COPD (chronic obstructive pulmonary disease) JEFFRY on CPAP Morbid obesity MATUTE (dyspnea on exertion) Chronic cystitis Bladder outlet obstruction Restless leg syndrome Traumatic complete tear of right rotator cuff Injury of right rotator cuff JEFFRY (obstructive sleep apnea) COPD (chronic obstructive pulmonary disease) History of diverticulitis History of umbilical hernia Surgical History Hx of colonoscopy History of appendectomy History of arthroscopy of left knee Family History Father Arthritis Diabetes Mother Arthritis Kidney stones Family/Other Arthritis Sister No problems noted. Sister No problems noted. Son No problems noted. 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 [employer] Cognitive needs: No Hearing needs: No Vision needs: No Review of Systems Const All systems reviewed & are unremarkable except as noted in HPI and below Reports no additional complaints Resp Reports no additional complaints GI Reports no additional complaints Reports as per HPI Musc Reports no additional complaints Physical Exam Telemedicine evaluation Appropriate responses Regular breathing rate and rhythm HEENT Head: Yes normal to inspection Ears: hearing grossly normal bilaterally Eyes General: appearance normal, both eyes and all related structures Neck Neck: Yes normal visual inspection Chest Chest palpation & inspection: normal inspection of the chest Resp Effort & Inspection: normal respiratory effort and able to speak in complete sentences Assessment & Plan Assessment & Plan (1) Microscopic hematuria: Code(s): R31.29 - Other microscopic hematuria (2) Overactive bladder: Code(s): N32.81 - Overactive bladder (3) Bladder outlet obstruction: Code(s): N32.0 - Bladder-neck obstruction Plan Re-dose medications Six month follow-up PVR Medications: Changed From mirabegron ER 25 mg PO DAILY 30 days 30 tabs 1RF N32.81 - Overactive bladder To mirabegron ER 25 mg PO DAILY 90 days 90 tabs 1RF N32.81 - Overactive bladder From doxazosin 8 mg PO BEDTIME 30 days 30 tabs 5RF N32.0 - Bladder-neck obstruction To doxazosin 8 mg PO BEDTIME 90 days 90 tabs 1RF N32.0 - Bladder-neck obstruction Refilled finasteride 5 mg PO DAILY 90 days 90 tabs 1RF Patient Instructions: Imaging studies, laboratory and physical exam results were discussed and reviewed in detail. No major barriers to patient understanding were identified. An opportunity to ask questions regarding the treatment plan was provided. All questions were answered. The patient expressed understanding and agreement with the above treatment plan. The patient is aware they should contact our office by phone for worsening of their current condition or the appearance of new urologic symptoms. Compliance is encouraged with any medications and followup testing that is ordered. It is a privilege to participate in the urologic care of your patient. If you have any questions or concerns regarding treatment for the above conditions, or other urologic issues, please do not hesitate to contact me. The office telephone contact is [phone]. This note is constructed using voice recognition software. While every effort has been made to ensure accuracy manager desktop errors may have been included. Yours sincerely, Dr Prabhu Head MD, [facility] - Urology Providers of Expert, Compassionate Care for the Genitourinary System Telehealth Telehealth Location of provider rendering services: practice address Location of patient: address on file Patient Identification confirmed using: Name, : Yes Telehealth method: video Patient verbally consented to treatment: Yes Patient verbally consented to billing insurance company: Yes Patient informed of any privacy concerns related to visit: Yes Coding Level of Care Code Tele Est Pt Level 4 (21874) Diagnoses Microscopic hematuria R31.29 Overactive bladder N32.81 Bladder outlet obstruction N32.0
--- OUTSIDE RECORDS SUMMARY | 2022-11-01 09:13 | XMS_ITS | Patient Health Record ---
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 Name Role Phone Diego Gallagher Primary Care Provider Unav Nancy Nj Unavailable [phone] ALLERGIES No Known Allergies REASON FOR REFERRAL No Information MEDICATIONS Medication SIG (Take, Route, Frequency, Duration) Notes Start Date End Date Status Aspirin 81 MG 1 tablet Orally Once a day Not-Taking Anoro Ellipta 62.5-25 MCG/ACT 1 puff Inhalation Once a day Active Bactrim 400-80 MG 1 tablet Orally Once a day Not-Taking Atorvastatin Calcium 80 MG 1 tablet Orally Once a day Active Albuterol as needed Active rOPINIRole HCl 2 MG 1 tablet 1 to 3 hours before bedtime Orally Once a day X3 a day Active Pregabalin 150 MG 1 capsule Orally Once a day X3 a day Active Eliquis 5 MG 1 tablet Orally Twice a day for 30 day(s) Active Methocarbamol 500 MG 1.5 tablets Orally every 4 hrs as needed Active methIMAzole 5 MG 1 tablet Orally Once a day Active Naproxen 250 MG 1 tablet with food or milk as needed Orally every 12 hrs Active Metoprolol Succinate 50 MG 1 capsule Orally Once a day Active DULoxetine HCl 60 MG 1 capsule Orally Once a day Active Doxazosin Mesylate 8 MG 1 tablet Orally Once a day Active Furosemide 20 MG 1 tablet Orally Once a day Active Finasteride 5 MG 1 tablet Orally Once a day Active SOCIAL HISTORY Tobacco Use: Social History Observation Description Date Details (start date - stop date) Former Smoker NA - NA Sex Assigned At : Social History Observation Description Sex Assigned At Unknown Tobacco Use/Smoking Question Answer Notes Are you a: former smoker Additional Findings: Tobacco Non-User Current no n-smoker Alcohol Screen Question Answer Notes Did you have a drink contain ing alcohol in the past year? Yes How often did you have a dri nk containing alcohol in the past year? 4 or more times a week (4 points) Points 4 Interpretation Positive Tobacco use other than smoking: Question Answer Notes Are you an other tobacco user? 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) Active confirmed [id number] VITAL SIGNS Height 6 ft 4 in in 09/04/2022 Weight 420 lbs 09/04/2022 BMI 51.12 kg/m2 09/04/2022 Encounters Encounter Location Date Provider Diagnosis [address] [address] 09/04/2022 Nancy Hardy Plantar fasciitis of left foot M72.2 ; Plantar fat pad atrophy of left foot M21.6X2 ; Calcaneal spur of left foot M77.32 ; Osteoarthritis of left ankle and foot M19.072 ; Contusion of right great toe with damage to nail, initial encounter S90.211A ; Tinea unguium B35.1 ; Atherosclerosis of artery of both lower extremities I70.203 ; Pes planus of left foot M21.42 ; Pes planus of right foot M21.41 and Neuropathy G62.[address] [address] 09/04/2022 Nancy Hardy [address] [address] 09/18/2022 Nancy Hardy Plantar fasciitis of left foot M72.2 ; Plantar fat pad atrophy of left foot M21.6X2 ; Atherosclerosis of artery of both lower extremities I70.203 ; Calcaneal spur of left foot M77.32 ; Neuropathy G62.9 ; Tinea unguium B35.1 ; Pes planus of left foot M21.42 ; Contusion of right great toe with damage to nail, subsequent encounter S90.211D and Neuropathic ulcer of right foot with fat layer exposed L97.512 [facility] [address] [place] [address] 09/18/2022 Nancy Perica [facility] [address] [place] [address] 09/18/2022 Nancy Perica [facility] [address] [phone] 10/07/2022 Nancy Perica [facility] [address] [place] [address] 10/08/2022 Nancy Perica [facility] [address] [address] 10/18/2022 Nancy Perica [facility] [address] [place] [address] 10/22/2022 Nancy Hardy ASSESSMENTS Encounter Date Diagnosis Assessment Notes Treatment Notes Treatment Clinical Notes 09/04/2022 Plantar fat pad atrophy of left foot (ICD-10 - M21.6X2) 09/04/2022 Plantar fasciitis of left foot (ICD-10 - M72.2) Patient Educated with: HEEL CORD STRETCHES.pdf (HEEL CORD STRETCHES.pdf) Patient Educated with: RICE THERAPY.pdf (RICE THERAPY.pdf) 09/18/2022 Plantar fat pad atrophy of left foot (ICD-10 - M21.6X2) 09/18/2022 Plantar fasciitis of left foot (ICD-10 - M72.2) Patient Educated with: HEEL CORD STRETCHES.pdf (HEEL CORD STRETCHES.pdf) Patient Educated with: RICE THERAPY.pdf (RICE THERAPY.pdf) 09/18/2022 Atherosclerosis of artery of both lower extremities (ICD-10 - I70.203) 09/04/2022 Calcaneal spur of le ft foot (ICD-10 - M77.32) 09/04/2022 Osteoarthritis of le ft ankle and foot (ICD-10 - M19.072) 09/18/2022 Calcaneal spur of le ft foot (ICD-10 - M77.32) 09/18/2022 Neuropathy (ICD-10 - G62.9) 09/04/2022 Contusion of right great toe with damage to nail, initial encounter (ICD-10 - S90.211A) 09/04/2022 Tinea unguium (ICD-1 0 - B35.1) 09/18/2022 Tinea unguium (ICD-1 0 - B35.1) 09/18/2022 Pes planus of left foot (ICD-10 - M21.42) 09/04/2022 Atherosclerosis of artery of both lower extremities (ICD-10 - I70.203) 09/18/2022 Contusion of right great toe with damage to nail, subsequent encounter (ICD-10 - S90.211D) 09/04/2022 Pes planus of left foot (ICD-10 - M21.42) 09/04/2022 Pes planus of right foot (ICD-10 - M21.41) 09/18/2022 Neuropathic ulcer of right foot with fat layer exposed (ICD-10 - L97.512) 09/04/2022 Neuropathy (ICD-10 - G62.9) PLAN OF TREATMENT Pending Test Test Name Order Date X ray : Foot, left 3V 09/18/2022 X ray : Foot, left 3V 09/04/2022 Next Appt Details Provider Name:Nancy li, 11/20/2022 01:30:00 PM, [address] [place], [address], Insurance Providers Payer Name Payer Address Payer Phone Subscriber Number Group Number Insured Name Patient Relationship to Insured Coverage Start Date Coverage End Date Medicare [facility] [address] [place] [address] [phone] [id number] Dinh Craven Self - patient is the insured [employer] [address] [place] [address] [id number] Dinh Craven Self - patient is the insured MEDICAL (GENERAL) HISTORY Medical History History ICD Code Arthritis asthma Back,Hip,and Knee pain Lung disease Neuropathy Poor circulation thyroid Chicken pox Joint implants/screws Surgical History Surgery Date(Month/Year) knee replacement 2013 appendectomy 2015 rotator cuff 2020
== END 2022-11-01 09:56 | disposition home or self-care (01) ==
LOC: HO.HUSH 09:11
PROVIDERS: PCP Nurse Practitioner Family; Visit Provider Urology
DX: R31.29 Other microscopic hematuria (principal); N32.81 Overactive bladder; N32.0 Bladder-neck obstruction
CPT/HCPCS: 99214

== ENCOUNTER → 2022-11-01 09:11 | Outpatient (BNVA) | payer MEDICARE, SELFPAY | PROVIDERS: PCP Nurse Practitioner Family; Visit Provider Urology ==

== ENCOUNTER 2022-11-06 07:34 | Outpatient (REF) | payer MEDICARE, SELFPAY ==
[2022-11-06 12:00] LABS: Appearance Urine Clear; Color Urine Dark Yellow; Glucose Urine UA Negative (Negative); Leukocyte Esterase Urine Negative (Negative); Nitrite Urine Negative (Negative); PH 6.5 (5.0-9.0); UMIC TRIGGER UA YES; UMIC TRIGGER UACC YES; Urine Blood Trace (Negative); Urine Ketones Negative (Negative); Urine Protein Negative (Neg-Trace)
[2022-11-06 12:04] LABS: Bacteria Urine None Seen (None Seen); Hyaline Casts Urine 0-2 /LPF (0-2); Squamous Epithelial Cell Urine 0-2 /HPF (0-2); WBC Urine 0-5 /HPF (0-5)
== END 2022-11-06 07:35 | disposition home or self-care (01) ==
LOC: HO.HMGCLDS 07:34
PROVIDERS: PCP Nurse Practitioner Family; Visit Provider Nurse Practitioner Family
DX: R39.89 Other symptoms and signs involving the genitourinary system (principal)
CPT/HCPCS: 81001; 81003

== ENCOUNTER 2022-11-21 14:53 | Outpatient (AMB) | payer MEDICARE, SELFPAY ==
[2022-11-21 15:26] VITALS: BP 114/82; PULSE 93; O2SAT 97; BMI 52.3
--- NOTE | 2022-11-21 15:26 | MHC.OFFVIS ---
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 with increased shortness of breath and found to have new diagnosis of atrial fibrillation. He was treated with heart rate control and started on anticoagulation. Initially had some hematuria which has since resolved. Today he reports that he is noticing increased fatigue and shortness of breath over the last month. He strongly believes the atrial fibrillation is making his condition worse. He has occasional heart palpitations. No chest discomfort at rest or with activity. Chronic shortness of breath and increased use of his oxygen. He describes orthopnea, no PND, chronic stable lower leg edema. No presyncope, syncope, falls. Activity is very limited by his shortness of breath. No bleeding issues including hematuria. He is requesting cardioversion. is present. [facility] Medical History Hereditary lymphedema Venous insufficiency Morbid obesity Lymphedema COPD (chronic obstructive pulmonary disease) Sensory neuropathy COVID-19 Respiratory failure with hypoxia Restrictive lung disease COPD (chronic obstructive pulmonary disease) JEFFRY on CPAP Morbid obesity MATUTE (dyspnea on exertion) Chronic cystitis Bladder outlet obstruction Restless leg syndrome Traumatic complete tear of right rotator cuff Injury of right rotator cuff JEFFRY (obstructive sleep apnea) COPD (chronic obstructive pulmonary disease) History of diverticulitis History of umbilical hernia Surgical History Hx of colonoscopy History of appendectomy History of arthroscopy of left knee Family History Father Arthritis Diabetes Mother Arthritis Kidney stones Family/Other Arthritis Sister No problems noted. Sister No problems noted. Son No problems noted. 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 [employer] Cognitive needs: No Hearing needs: No Vision needs: No Review of Systems Const All systems reviewed & are unremarkable except as noted in HPI and below Reports fatigue ENT Denies dizziness Card Denies chest pain, Denies chest pain at rest, Denies chest pain with activity, Denies rapid heart rate, Denies pedal edema, Denies edema, Denies leg edema, Denies lightheadedness, Reports palpitations, Reports dyspnea, Reports dyspnea on exertion and Denies orthopnea Resp Denies cough, Reports dyspnea and Reports dyspnea on exertion GI Denies hematochezia and Denies change in stool character Musc Denies abnormal gait, Reports limited range of motion, Reports muscle cramps, Denies muscle weakness, Denies numbness, Denies radiating pain into limb, Denies stiffness and Denies tingling Neuro Denies abnormal gait, Denies dizziness, Denies numbness and Denies tingling Endo Reports fatigue and Reports palpitations Physical Exam Vital Signs: Last Vital Signs Pulse 93 11/21/22 15:26 BP 114/82 11/21/22 15:26 Pulse Ox 97 11/21/22 15:26 BMI result Body Mass Index 52.3 Const Other: Morbidly obese General: cooperative, comfortable and no acute distress Orientation/consciousness: patient oriented x3 Neck Neck: Yes normal visual inspection Resp Effort & Inspection: normal respiratory effort Auscultation: clear to auscultation bilaterally, no crackles, no rales, no rhonchi and no wheezes Cardio Jugular venous distension: no JVD Rate: regular rate Rhythm: abnormal rhythm Heart sounds: S1 normal heart sound present, S2 normal heart sound present, no murmurs and no rubs Neuro General: patient oriented x3 Extrem General: Yes normal to inspection Psych Appearance: grossly normal Mental Status: mental status grossly normal Speech and movement: Normal speech and movement present Office Procedures EKG Details: Today, read by me, atrial fibrillation, right bundle branch block, can not exclude inferior infarct, rate 75, QTC 453 milliseconds [id number], Complete Assessment & Plan Assessment & Plan (1) A-fib: Code(s): I48.91 - Unspecified atrial fibrillation Qualifiers: Atrial fibrillation type: persistent (not longstanding) Qualified Code(s): I48.19 - Other persistent atrial fibrillation Plan: Newer finding of atrial fibrillation when he presented to [facility] [id number] for shortness of breath. He was treated with heart rate control and continues to have persistent AFib. He is currently on metoprolol and digoxin. Echocardiogram 10/10/2022 showed EF 40-50%, no valve abnormalities. He was put on Eliquis for anticoagulation. He initially had some hematuria which has fully resolved. Holter monitor done 10/10/2022 for 3 days shows atrial fib, rate 86, PVCs 1.3% of time. EKG done today showing atrial fibrillation, heart rate 75. Today he reports overall increased shortness of breath, increased used of his home O2, fatigue and decreased activity tolerance. He has been on anticoagulation uninterrupted for over 4 weeks. Heart rate well controlled at present. Will discuss cardioversion with his primary beater out leveling machine Dr. King. Procedure and risks reviewed with patient and he is willing to proceed. Plan to call him with details. Cardiology follow-up 4 weeks sooner if needed. Anticipate this to be post cardioversion. (2) Morbid obesity: Code(s): E66.01 - Morbid (severe) obesity due to excess calories Plan: Weight loss would be beneficial for his overall health. He is aware of this and states he is trying. (3) JEFFRY on CPAP: Comment: KNOWN TO HAVE OBSTRUCTIVE SLEEP APNEA. USES CPAP REGULARLY AND HAS BEEN VERY COMPLIANT AND BENEFITTING. CURRENTLY USING OXYGEN 2 L/MT ALONG WITH CPAP AT NIGHTTIME. Code(s): G47.33 - Obstructive sleep apnea (adult) (pediatric); Z99.89 - Dependence on other enabling machines and devices Plan: Compliant with his CPAP each night (4) Congestive heart failure: Comment: continue all meds as prescribed, INCLUDING LASIX Code(s): I50.9 - Heart failure, unspecified Qualifiers: Heart failure type: combined systolic and diastolic Plan: Mild Congestive heart failure during last hospital admission. He was sent home with Lasix 40 mg daily. Labs done 10/20/2022 showed creatinine 1.04, potassium 4.0. He is morbidly obese making assessment for fluid overload more challenging. He does have some increased shortness of breath however lungs seem clear on examination. Reviewed signs and symptoms of heart failure with him. Will continue on current Lasix. Reviewed low-salt diet, okay to use as needed. Coding Level of Care Code Est Pt Level 4 (05320) Diagnoses Persistent atrial fibrillation I48.19 Atrial fibrillation type: persistent (not longstanding) Morbid obesity E66.01 JEFFRY on CPAP G47.33; Z99.89 Congestive heart failure I50.9 Heart failure type: combined systolic and diastolic CPT Codes EKG - CPT: [id number], Complete ([id number]) Time Spent (min) 28
== END 2022-11-21 16:00 | disposition home or self-care (01) ==
PROVIDERS: PCP Nurse Practitioner Family; Visit Provider Nurse Practitioner Family
DX: I48.19 Other persistent atrial fibrillation (principal)
CPT/HCPCS: 93010; 99214

== ENCOUNTER → 2022-11-21 14:53 | Outpatient (BNVA) | payer MEDICARE, SELFPAY | PROVIDERS: PCP Nurse Practitioner Family; Visit Provider Nurse Practitioner Family | DX: I48.19 Other persistent atrial fibrillation (principal); I50.9 Heart failure, unspecified; E66.01 Morbid (severe) obesity due to excess calories; G47.33 Obstructive sleep apnea (adult) (pediatric); Z99.89 Dependence on other enabling machines and devices; Z68.43 Body mass index [BMI] 50.0-59.9, adult | CPT/HCPCS: 93005; 99212 ==

== ENCOUNTER 2022-11-26 10:00 | Outpatient (RCR) | payer MEDICARE, SELFPAY ==
[2022-08-26 10:20] VITALS: BP 126/78; PULSE 85
--- NOTE | 2022-08-26 13:39 | MHC.PR.IN ---
[address] [phone] F: [phone] Pulmonary Rehabilitation Individual Treatment Plan Dinh Craven Jr is a 67 year old (M) who was referred to the Pulmonary Rehabilitation program by Savanna Andujar. This patient who has a primary diagnosis of Copd will begin pulmonary rehabilitation with monitored exercise and education to optimize both physical and social performance, autonomy, increase strength and endurance, and control dypsnea. The following information was gathered from the patient: Smoking History Current smoking status: Former Smoker Years smoked: 30 years Last time smoked: Quit Date: 12 years ago 2009 Assistance with quitting needed: Past Medical History Medical History: COPD Asthma Pulmonary Embolism Pneumonia Sleep Apnea GI Disorders GERD Vascular Problems Surgeries: Past Pulmonary Hospitalizations # of hospitalizations in the past year: 0 # of ER vists due to breathing troubles in the past year: 0 Current Pulmonary Medications Albuterol 90 mcg PRn Anoro Elipta 62.5-25 daily Naproxen 500 mg 1250 mg/ 2xdaily Duloxetin 60 mg cap once daily Pregabalin 150 mg twice daily ropinozol 2mg tab 3 times daily aspirin 81 mg once daily finasteride 5 mg 1x daily atorvastatin 80 mg 1 daily doxazosin 4mg 1 daily metoprolol 50 mg daily methimazole 10 g daily furosemide 20mg daily Allergy History Allergies: hayfever/seasonal Current Oxygen Use Supplemental Oxygen Device Used: Concentrator Cylinders Liter flow: 2.5-3L How often: With sleep and exercise Pulmonary History Cough: Yes: nothing abnormal Sputum: Sleep device: Yes: [employer] Other pulmonary devices: Peak flow meter: No Nebulizer: No Suction: No Ventilator: No Secretion clearance: No PEP: Influenza vaccine: Yes Pneumonia vaccine: No Patient Questionaire Scores MRC Dyspnea Scale (mRC): 4 CAT Score: 21 PHQ-9 Score: 5 Pulmonary Function Test and Vital Signs Pulmonary Function Test Date of PFT 01/25/2022 FVC Actual 4.78% FVC Predicted 5.66% FEV1 Actual 2.67% FEV1 Predicted 4.23% FEV1/FVC Actual 56% FEV1/FVC Predicted 75% DLCO 20.74 Vital Signs Heart Rate 85 Blood Pressure 126/78 SpO2 98% Respiratory Rate 18 shallow Six Minute Walk Test Supplemental Oxygen O2 L/min: 2-3L FiO2: Resting Vitals SpO2: 88-92% BP: 126/78mmHg HR: 85 bpm Total Distance 150 Number/ Time of Rests (sec) 4 50 seconds VIDA 3 METS 1.22 SpO2 89 HR (bpm) 93 MPH 0.29 Meters/Minute Post-walk Vitals SpO2: 97 BP: 128/76 HR: 85 Performance Observations Pt walked to the best of his ability assisted with a cane. A wheel chair was used for resting periods during testing. Pt walked with home oxygen unit at 3L. Pt took several rests in wheelchair due to pain (level 10) in legs due to lymphodemia Pulmonary Rehabilitation Plan Topic Problem Goal Plan Comment Education Knowledge deficit of disease self management strategies Ineffective control of dyspnea Verbalize adequate disease self-management skills Effective control of dyspnea Advanced directives Disease overview Respiratory medication Hypoxia Poor knowledge of oxygen use and safety Appropriate portable oxygen system obtained Using oxygen as ordered Recommend appropriate liter flow to patient and physician Educate appropriate use of oxygen at rest and with activity Educate on oxygen safety Pt instructed and educated to not increase liter flow due to increased respiratory rate. Psychosocial N/A, PHQ-9 score <5 Benefits of exercise Relaxation techniques Activities of Daily Living Impaired ADL management ADL management and control of dyspnea ADL performance with pacing and pursed lip breathing Educate on pursed lip breathing and pacing with stairs and activity Nutrition & Weight Management Obese Lose weight during program Prevent further weight gain Education classes Nutrition consult Tobacco Managment NA Pt smoke free since 2009 Medication N/A, pt reports compliance w/ prescribed medications Pt uses medications as prescribed Inhaled Medication Purpose, side effects and technique needs review Correct technique/timing and care of inhaled medications MDI with spacer device Secretion Management N/A, pt able to self manage secretions Exercise & Fitness Decreased strength & endurance Knowledge deficit of exercise guidelines & safety No regular exercise Pulmonary Rehab 2-3x/week Weight or resistance training 2-3x/week Aerobic Exercise: 30-60mins x 9 weeks Review benefits & core components of exercise program Review how to measure and monitor dyspnea level Review exercise safety guidelines Review frequency and duration of exercise Review exercise intensity VIDA RPD 3-4/10 Pt agrees to 2 sessions weekly and at 10:00. 3 minute warmup/ gently stretches 31 minutes aerobic exercise 5 minute cool down Recumbent bike L1.0/P12 Mets 1.7 time 6 minute RPD 3 Diabetes Management Does patient have DM?: No Diabetes Type: Current Blood Glucose Level: Current A1C Level: Self Check: Patient's Goals and Concerns Pt's goal is to become more mobile and gain control of their Shortness of breath. 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 The treatment plan and goals support the patient's needs and abilities, and thereby recommend that the exercise plan be completed as documented. Special precautions or modifications to the treatment plan include:
[2022-09-03 11:41] VITALS: BP 122/86; BP 128/80
[2022-09-10 11:04] VITALS: BP 114/80; BP 124/80
[2022-09-17 11:21] VITALS: BP 124/74; BP 152/82
[2022-09-19 11:41] VITALS: BP 112/58; BP 112/62
[2022-09-24 11:23] VITALS: BP 112/64; BP 124/74
[2022-09-26 12:14] VITALS: BP 118/80; BP 122/78
[2022-10-03 11:44] VITALS: BP 102/70; BP 98/62
--- NOTE | 2022-10-07 07:37 | MHC.PR.RE ---
[address] [phone] F: [phone] Pulmonary Rehabilitation Reassessment Dinh Craven Jr is a 67 year old (M) who was referred to the Pulmonary Rehabilitation program by Savanna Andujar. This patient who has a primary diagnosis of Copd has completed 10 sessions of the pulmonary rehabilitation program thus far with monitored exercise and education to optimize both physical and social performance, autonomy, increase strength and endurance, and control dypsnea. They were evaluated on . Reassessment Type: 30-day reassessment Topic Education/ Progress Progress Comments Education Demonstrates disease self-management strategies Using medications as directed Mobilizes secretions successfully Demonstrates strategies for anxiety and depression management Hypoxia Current oxygen Use: 2lpm Demonstrates knowledge of O2 prescription at rest & with activity Demonstrates knowledge of O2 safety Psychosocial PHQ-9 Score: 5 Activities of Daily Living Management of ADL with Control of Dyspnea Progressing Nutrition & Weight Management Current weight: 420 BMI: Weight change: Weight Stable Progressing Tobacco Stages of Change: Tobacco Use: Cigerettes/Day: Any nicotine replacement: Any cessation medication: Smoking quit date: Smokeless tobacco use and amount: PT is a non smoker Medication Met, taking 100% of time Albuterol 90 mcg PRn Anoro Elipta 62.5-25 daily Naproxen 500 mg 1250 mg/ 2xdaily Duloxetin 60 mg cap once daily Pregabalin 150 mg twice daily ropinozol 2mg tab 3 times daily aspirin 81 mg once daily finasteride 5 mg 1x daily atorvastatin 80 mg 1 daily doxazosin 4mg 1 daily metoprolol 50 mg daily methimazole 10 g daily furosemide 20mg daily Inhaled Medication Patient verbalizes correct technique of: MDI: DPI: SMI: NEBULIZER: Secretion Management Patient provides adequate return demonstration of: Controlled cough: Yes Burciaga cough: Acapella/ PEP Device: CPT: Sputum management: Exercise & Fitness Aerobic Exercise Frequency: 2X weekly Target heart range: Heart rate range: 97-129 SpO2 Range: >89% VIDA RPD: 3-4 Time (minutes): 40 O2 use with exercise: 2lpm Current HEP: UBE L1.0 RPD 3 16 minutes Recumbent Bike L2.5 24 minutes. PT continues to increase Level/mets. Money Examiner Review I have reviewed the outcome re-assessment and treatment plan. The treatment plan and goals support the patient's needs and abilities, and thereby recommend that the exercise plan be completed as documented. Special precautions or modifications to the treatment plan include:
[2022-10-08 12:56] VITALS: BP 126/74; BP 128/80
[2022-10-10 12:21] VITALS: BP 108/64; BP 118/52
[2022-10-31 09:50] VITALS: BP 105/68; BP 106/58
[2022-11-05 14:09] VITALS: BP 110/78; BP 118/82
--- NOTE | 2022-11-06 08:01 | MHC.PR.RE ---
[address] [phone] F: [phone] Pulmonary Rehabilitation Reassessment Dinh Craven Jr is a 67 year old (M) who was referred to the Pulmonary Rehabilitation program by Savanna Andujar. This patient who has a primary diagnosis of Copd has completed 14 sessions of the pulmonary rehabilitation program thus far with monitored exercise and education to optimize both physical and social performance, autonomy, increase strength and endurance, and control dypsnea. They were evaluated on . Reassessment Type: 60-day reassessment Topic Education/ Progress Progress Comments Education Demonstrates disease self-management strategies Using medications as directed Mobilizes secretions successfully Demonstrates strategies for anxiety and depression management Hypoxia Current oxygen Use: 3lpm Demonstrates knowledge of O2 prescription at rest & with activity Demonstrates knowledge of O2 safety Psychosocial PHQ-9 Score: 5 Activities of Daily Living Management of ADL with Control of Dyspnea Progressing Nutrition & Weight Management Current weight: 420 BMI: Weight change: Weight Stable Progressing Tobacco Stages of Change: Tobacco Use: Cigerettes/Day: Any nicotine replacement: Any cessation medication: Smoking quit date: Smokeless tobacco use and amount: PT is a non smoker Medication Met, taking 100% of time Albuterol 90 mcg PRn Anoro Elipta 62.5-25 daily Naproxen 500 mg 1250 mg/ 2xdaily Duloxetin 60 mg cap once daily Pregabalin 150 mg twice daily ropinozol 2mg tab 3 times daily aspirin 81 mg once daily finasteride 5 mg 1x daily atorvastatin 80 mg 1 daily doxazosin 4mg 1 daily metoprolol 50 mg daily methimazole 10 g daily furosemide 20mg daily Inhaled Medication Patient verbalizes correct technique of: MDI: DPI: SMI: NEBULIZER: Secretion Management Patient provides adequate return demonstration of: Controlled cough: Yes Burciaga cough: Acapella/ PEP Device: CPT: Sputum management: Exercise & Fitness Aerobic Exercise Frequency: 2X weekly Target heart range: Heart rate range: 97-129 SpO2 Range: >89% VIDA RPD: 3-4 Time (minutes): 40 O2 use with exercise: 2lpm Current HEP: UBE L1.0 RPD 3 16 minutes Recumbent Bike L2.5 24 minutes. PT continues to increase Level/mets. Gluing Machine Offbearer Review I have reviewed the outcome re-assessment and treatment plan. The treatment plan and goals support the patient's needs and abilities, and thereby recommend that the exercise plan be completed as documented. Special precautions or modifications to the treatment plan include:
[2022-11-07 11:30] VITALS: BP 108/62
--- NOTE | 2022-12-31 07:30 | MHC.PR.DC ---
[address] [phone] F: [phone] Pulmonary Rehabilitation Discharge Dinh Craven Jr is a 67 year old (M) who was referred to the Pulmonary Rehabilitation program by Savanna Andujar. This patient who has a primary diagnosis of Copd has completed 15 sessions of the pulmonary rehabilitation program with monitored exercise and education to optimize both physical and social performance, autonomy, increase strength and endurance, and control dypsnea. They were evaluated on . Discharge summary and tests are below. Initial MRC Score: 4 Discharge MRC Score: Six Minute Walk Test Initial 6MWT Discharge 6MWT Supplemental Oxygen O2 L/min: 2-3L FiO2: O2 L/min: FiO2: Resting Vitals SpO2: 88-92% BP: 126/78mmHg HR: 85 bpm SpO2: % BP: mmHg HR: bpm Total Distance (ft) 150 Number/ Time of Rests (sec) 4 50 seconds VIDA 3 Walk Vitals SpO2: 89 HR: 93 SpO2: HR: Post-Walk Vitals SpO2: 97 BP: 128/76 HR: 85 SpO2: BP: HR: Performance Observations Pt walked to the best of his ability assisted with a cane. A wheel chair was used for resting periods during testing. Pt walked with home oxygen unit at 3L. Pt took several rests in wheelchair due to pain (level 10) in legs due to lymphodemia Exercise Assessment on : Pre-exercise Post-exercise SpO2 Heart Rate VIDA METS Exercise Assessment on : Pre-exercise Post-exercise SpO2 Heart Rate VIDA METS Exercise Assessment on : Pre-exercise Post-exercise SpO2 Heart Rate VIDA METS Topic Education/Progress Progress Comments Education Demonstrates disease self-management strategies Using medications as directed Mobilizes secretions successfully Demonstrates strategies for anxiety and depression management Hypoxia Current oxygen Use: 3lpm Demonstrates knowledge of O2 prescription at rest & with activity Demonstrates knowledge of O2 safety Psychosocial PHQ-9 Score: 5 Activities of Daily Living Management of ADL with Control of Dyspnea Progressing Nutrition and Weight Managment Current weight: 420 BMI: Weight change: Weight Stable Progressing Tobacco Stages of Change: Tobacco Use: Cigerettes/Day: Any nicotine replacement: Any cessation medication: Smoking quit date: Smokeless tobacco use and amount: PT is a non smoker Medications Met, taking 100% of time Inhaled Medications Patient verbalizes correct technique of: MDI: DPI: SMI: NEBULIZER: Secretion Management Patient provides adequate return demonstration of: Controlled cough: Yes Burciaga cough: Acapella/ PEP Device: CPT: Sputum management: Exercise and Fitness Aerobic Exercise Frequency: 2X weekly Target heart range: Heart rate range: 97-129 SpO2 Range: >89% VIDA RPD: 3-4 Time (minutes): 40 O2 use with exercise: 2lpm Current HEP: UBE L1.0 RPD 3 16 minutes Recumbent Bike L2.5 24 minutes. PT continues to increase Level/mets. Discharge Assessment: Discharge Reason: Pt discharged for medical reasons Discharge Recommendation: :
== END 2022-12-31 07:30 | disposition home or self-care (01) ==
LOC: HO.PR 10:00
PROVIDERS: PCP Nurse Practitioner Family; Visit Provider Internal Medicine
DX: J44.9 Chronic obstructive pulmonary disease, unspecified (principal); U07.1 COVID-19; J12.82 Pneumonia due to coronavirus disease 2019
CPT/HCPCS: 94625

== ENCOUNTER 2022-11-26 10:33 | Outpatient (AMB) | payer MEDICARE, SELFPAY ==
--- NOTE | 2022-11-26 10:43 | MHC.OFFVIS ---
Intake Vital Signs 11/26/22 10:44 Height 6 ft 4 in Weight 440 lb BMI 53.6 BP 120/64 Blood Pressure Location Lt brachial Position Sitting Pulse 81 Pulse Source Pulse Oximeter Pulse Oximetry (%) 97 Oxygen Delivery Method Nasal Cannula Oxygen Flow Rate 3 Intake Visit Reasons: Obstructive sleep apnea Intake Note: pt is here for follow up and states he is short of breath with everything, having cardioversion on Friday, retaining fluid, had 5 day HH stay, was out of pul. rehab for about a month due to issues at home, Vivek is DME for cpap, still waiting for new machine. Lodge Attendant Required: No Allergies No Known Allergies [No Known Allergies*] Allergy (Verified 11/26/22 10:59) Medication List - Last Reconciled 11/26/22 by Savanna Andujar MD albuterol sulfate 90 mcg/actuation 2 puffs PO Q6H PRN Anoro Ellipta 62.5-25 mcg/actuation (umeclidinium-vilanterol) 1 inh PO DAILY NS apixaban (Eliquis) 5 mg PO BID atorvastatin 80 mg PO BEDTIME 90 days blood pressure kit-extra large As directed blood pressure monitor As directed digoxin 0.25 mg PO Q2D doxazosin 8 mg PO BEDTIME 90 days duloxetine 60 mg PO DAILY finasteride 5 mg PO DAILY 90 days furosemide (Lasix) 40 mg PO DAILY methimazole 5 mg PO DAILY methocarbamol 500 mg PO BEDTIME PRN 30 days metoprolol succinate ER 50 mg PO DAILY oxybutynin chloride ER 10 mg PO DAILY 30 days oxycodone 5 mg PO BID PRN 8 days pregabalin 150 mg PO TID 30 days ropinirole 2 mg PO TID semaglutide (weight loss) (Wegovy) 0.25 mg (0.5 mL) subcut QWEEK spironolactone 25 mg See Protocol PO DAILY Do you need a note to return to daycare/school/sports/work: No HPI Obstructive sleep apnea HPI Details 67 years old gentleman, is here for follow-up for his morbid obesity, obstructive sleep apnea, and COPD. Lately he has had some cardiac issues, was recently in the hospital with atrial fibrillation / increased congestive heart failure. He diuresed with IV Lasix but after discharge from the hospital has retain more fluid. He has put on lot of weight again. Has become somewhat immobile while and has to use the chair most of the time. He is not able to go to pulmonary rehab program at this time. Uses his O2 around the clock 3 L/minute. Uses his CPAP regularly at night. Using Anoro Ellipta every day and albuterol only once in a while. [facility] Medical History Hereditary lymphedema Venous insufficiency Morbid obesity Lymphedema COPD (chronic obstructive pulmonary disease) Sensory neuropathy COVID-19 Respiratory failure with hypoxia Restrictive lung disease COPD (chronic obstructive pulmonary disease) JEFFRY on CPAP Morbid obesity MATUTE (dyspnea on exertion) Chronic cystitis Bladder outlet obstruction Restless leg syndrome Traumatic complete tear of right rotator cuff Injury of right rotator cuff JEFFRY (obstructive sleep apnea) COPD (chronic obstructive pulmonary disease) History of diverticulitis History of umbilical hernia Surgical History Hx of colonoscopy History of appendectomy History of arthroscopy of left knee Family History Father Arthritis Diabetes Mother Arthritis Kidney stones Family/Other Arthritis Sister No problems noted. Sister No problems noted. Son No problems noted. 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 -[employer] Cognitive needs: No Hearing needs: No Vision needs: No Review of Systems Const All systems reviewed & are unremarkable except as noted in HPI and below Eyes Reports no additional complaints ENT Reports no additional complaints Card Denies chest pain, Denies irregular heart rhythm and Denies leg edema Resp Reports as per HPI GI Reports no additional complaints Reports no additional complaints Musc Reports back pain Skin/Breast Reports system reviewed and no additional complaints, except as documented Neuro Reports no additional complaints Psych Reports no additional complaints Physical Exam Vital Signs: Last Vital Signs Pulse 81 11/26/22 10:44 BP 120/64 11/26/22 10:44 Pulse Ox 97 11/26/22 10:44 Oxygen Delivery Method Nasal Cannula 11/26/22 10:44 Oxygen Flow Rate 3 11/26/22 10:44 BMI result Body Mass Index 53.6 Const Other: wearing oxygen General: cooperative, healthy appearing, comfortable and no acute distress Orientation/consciousness: patient oriented x3 HEENT Head: Yes normal to inspection General nose exam: No nasal polyps present and No nasal discharge present Face and sinus: Yes sinuses nontender Mouth: oropharynx normal Throat: Yes posterior oropharynx normal Eyes General: appearance normal, both eyes and all related structures Neck Neck: Yes normal visual inspection, Yes no lymphadenopathy, Yes trachea midline and Yes no JVD Thyroid: Thyroid normal Chest Chest palpation & inspection: normal inspection of the chest, normal palpation of entire chest wall and no tenderness Resp Other: Percussion note not perceptible because of thick chest wall. Breath sounds are distant and especially decreased over the basilar areas. No wheezes or crepitations are heard. Effort & Inspection: normal respiratory effort and able to speak in complete sentences Auscultation: clear to auscultation bilaterally Cardio Palpation: PMI not normal (Not palpable) Rate: regular rate Rhythm: abnormal rhythm and other (Atrial fib) Heart sounds: no gallops and no murmurs GI Palpation (GI): Soft to palpation, nontender, No hepatosplenomegaly present, no masses and Other GI palpation findings present (Grossly obese and protuberant) Auscultation: normal bowel sounds Back/Spine/Pelvis Cervical Spine: normal cervical lordosis and cervical ROM normal Thoracic/Lumbar Spine: thoracic and lumbar spine normal to inspection, thoraco-lumbar ROM normal and paraspinal muscle tenderness (left trapezius/rhomboid tenderness and tautness of musculature to palpation) Skin General skin exam: no rashes or lesions noted Neuro General: patient oriented x3 and Normal light touch and pain sensation Cranial nerves: Yes CN's II-XII intact bilaterally Extrem General: Yes edema (Has chronic stasis edema /lymphedema both legs which is currently increased) and Yes venous stasis dermatitis Psych Appearance: grossly normal Mental Status: mental status grossly normal Speech and movement: Normal speech and movement present Assessment & Plan Assessment & Plan (1) Morbid obesity: Comment: Patient remains morbidly obese. Currently has put on more weight mainly due to fluid retention. Difficult for him to lose weight. Hopefully with better control of his congestive heart failure and peripheral edema, he will have some weight reduction again. Code(s): E66.01 - Morbid (severe) obesity due to excess calories (2) JEFFRY on CPAP: Comment: KNOWN TO HAVE OBSTRUCTIVE SLEEP APNEA. USES CPAP REGULARLY AND HAS BEEN VERY COMPLIANT AND BENEFITTING. CURRENTLY USING OXYGEN 2 L/MT ALONG WITH CPAP AT NIGHTTIME. Code(s): G47.33 - Obstructive sleep apnea (adult) (pediatric); Z99.89 - Dependence on other enabling machines and devices (3) Restrictive lung disease: Comment: RESTRICTION IS MAINLY BECAUSE OF HIS MORBID OBESITY. HE IS DOING BREATHING EXERCISES WITH INCENTIVE SPIROMETER., HE HAS BEEN IN PULMONARY REHAB PROGRAM, CURRENTLY CURRENTLY ON HOLD DUE TO HIS CARDIAC ISSUES. Code(s): J98.4 - Other disorders of lung (4) COPD (chronic obstructive pulmonary disease): Comment: COPD/reactive airways, well controlled and stable. TX: Continue Anoro Ellipta 1 inhalation daily. ALBUTEROL HFA 2 puffs Q 4-6 hours only p.r.n. Code(s): J44.9 - Chronic obstructive pulmonary disease, unspecified (5) Respiratory failure with hypoxia: Comment: NOCTURNAL HYPOXEMIA REQUIRES O2, 2-3 L/MINUTE AT NIGHT ALONG WITH CPAP . USES PORTABLE OXYGEN at 2-3 L/mt. AND STATIONARY CONCENTRATOR ONLY P.R.N.. Code(s): J96.91 - Respiratory failure, unspecified with hypoxia Coding Level of Care Code Est Pt Level 4 (96761) Diagnoses Morbid obesity E66.01 JEFFRY on CPAP G47.33; Z99.89 Restrictive lung disease J98.4 COPD (chronic obstructive pulmonary disease) J44.9 Respiratory failure with hypoxia J96.91
[2022-11-26 10:44] VITALS: BP 120/64; PULSE 81; O2SAT 97; BMI 53.6
== END 2022-11-26 11:01 | disposition home or self-care (01) ==
PROVIDERS: PCP Nurse Practitioner Family; Visit Provider Internal Medicine
DX: E66.01 Morbid (severe) obesity due to excess calories (principal); G47.33 Obstructive sleep apnea (adult) (pediatric); Z99.89 Dependence on other enabling machines and devices; J98.4 Other disorders of lung; J44.9 Chronic obstructive pulmonary disease, unspecified; J96.91 Respiratory failure, unspecified with hypoxia
CPT/HCPCS: 99214

== ENCOUNTER → 2022-11-26 10:33 | Outpatient (BNVA) | payer MEDICARE, SELFPAY | PROVIDERS: PCP Nurse Practitioner Family; Visit Provider Internal Medicine | DX: J44.9 Chronic obstructive pulmonary disease, unspecified (principal); G47.36 Sleep related hypoventilation in conditions classified elsewhere; J98.4 Other disorders of lung; G47.33 Obstructive sleep apnea (adult) (pediatric); E66.01 Morbid (severe) obesity due to excess calories; Z68.43 Body mass index [BMI] 50.0-59.9, adult | CPT/HCPCS: 99212 ==

== ENCOUNTER 2022-11-29 10:12 | Day surgery (SDC) | payer MEDICARE, SELFPAY ==
--- NOTE | 2022-11-28 10:54 | P.CONAN_ITS ---
HPI - Anesthesia Eval Consult details Narrative: 67yo M for Cardioversion Eliquis for afib O2 dependent - 3L QHS with cpap, 2-3L prn activity PMFSH Active Problems Active Problems: All Active Problems (Updated 11/26/22 @ 11:07 by Savanna Andujar MD) Arthritis (Acute) Osteoarthritis of right knee (Acute) Congestive heart failure (Acute) Chest pain (Acute) Shortness of breath (Acute) A-fib (Acute) Microscopic hematuria (Acute) Urine discoloration (Acute) New onset a-fib (Acute) Palpitations (Acute) Overactive bladder (Acute) Morbid obesity (Acute) Lymphedema (Acute) Foot pain (Acute) Elevated TSH (Acute) Rotator cuff tear (Acute) Wounds, multiple open, lower extremity (Acute) Left shoulder pain (Acute) Neuropathy (Acute) Sprain of left shoulder (Acute) Constipation (Acute) Spondylosis of thoracic spine (Acute) Myofascial pain syndrome (Acute) Hepatitis C antibody positive in blood (Acute) Elevated LFTs (Acute) Myofascial pain syndrome (Acute) Elevated bilirubin (Acute) Low TSH level (Acute) Elevated alkaline phosphatase level (Acute) Left knee pain (Acute) Left ankle pain (Acute) Foot pain (Acute) COPD (chronic obstructive pulmonary disease) (Acute) Screening PSA (prostate specific antigen) (Acute) S/P shoulder surgery (Acute) Physical exam (Acute) Pneumonia due to COVID-19 virus (Acute) Acute respiratory failure with hypoxia (Acute) Leg edema, left (Acute) Cellulitis (Acute) Varicose veins of left lower extremity with inflammation (Acute) Sinus tachycardia (Acute) Bilateral lower extremity edema (Acute) Respiratory failure with hypoxia (Acute) Restrictive lung disease (Acute) COPD (chronic obstructive pulmonary disease) (Acute) JEFFRY on CPAP (Acute) Morbid obesity (Acute) Chronic cystitis (Acute) Bladder outlet obstruction (Acute) MATUTE (dyspnea on exertion) (Acute) Past Medical History Medical History Hereditary lymphedema Venous insufficiency Morbid obesity Lymphedema COPD (chronic obstructive pulmonary disease) Sensory neuropathy COVID-19 Respiratory failure with hypoxia Restrictive lung disease COPD (chronic obstructive pulmonary disease) JEFFRY on CPAP Morbid obesity MATUTE (dyspnea on exertion) Chronic cystitis Bladder outlet obstruction Restless leg syndrome Traumatic complete tear of right rotator cuff Injury of right rotator cuff JEFFRY (obstructive sleep apnea) COPD (chronic obstructive pulmonary disease) History of diverticulitis History of umbilical hernia Family History Family History Father Arthritis Diabetes Mother Arthritis Kidney stones Family/Other Arthritis Sister No problems noted. Sister No problems noted. Son No problems noted. Surgical History Surgical History Hx of colonoscopy History of appendectomy History of arthroscopy of left knee Social History Social History Household Members: Spouse Household Members Other:: Floridalma Housing: [facility] Do you presently have visiting nurse or other home services: No Alcohol intake: current Alcohol intake frequency: 0-2 drinks per day Alcohol type: beer Patient Tobacco Use Status: Former Tobacco user Years Smoked: 30 years e-Cigarette/Vaping Use: Never Used Second Hand Smoke Exposure: No Substance Use Type: Marijuana Substance Use Frequency: Daily Are you DNR?: No Advance Directives: No Advance Directives Information Provided: Yes Advance Directives Date on File: 05/16/20 Nutrition Risks: Recent weight gain service: No Current occupational status: retired 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 -[employer] Cognitive needs: No Hearing needs: No Vision needs: No Meds Allergies Allergy/AdvReac Type Severity Reaction Status Date / Time No Known Allergies Allergy Verified 11/26/22 10:59 [No Known Allergies*] Home Medications Medication Instructions Recorded Confirmed Last Taken Type duloxetine 60 mg capsule,delayed 60 mg PO DAILY 11/17/19 11/29/22 10/13/22 09:00 History release ropinirole 2 mg tablet 2 mg PO TID 05/16/20 11/29/22 10/13/22 09:00 History albuterol sulfate 90 mcg/actuation 2 puff PO Q6H PRN for wheezing 10/13/22 11/29/22 Unknown History aerosol inhaler Exam Exam Date and Time: November 28, 2022 1054 Pertinent Lab Results Pertinent Lab Results: Laboratory Tests 10/20/22 05:56 WBC 10.7 Hgb 17.0 Hct 49.8 Plt Count 259 Sodium 137 Potassium 4.0 Chloride 103 Carbon Dioxide 26 BUN 22 H Creatinine 1.04 Narrative Narrative: EKG 11/2022 atrial fibrillation, right bundle branch block, can not exclude inferior infarct, rate 75, QTC 453 milliseconds ECHO 09/2022 Conclusions: - Even with contrast, difficult to assess LVEF. Suspect mildly reduced, about 40-50%. - No obvious valvular pathology seen on this study. - Mild pulmonary hypertension is present. Assessment and Plan Assessment Anesthesia Assessment: Chart Reviewed
[2022-11-29] VITALS (7 sets, daily range): BP systolic 93–131; BP diastolic 53–78; PULSE 61–82; RESP 14–18; TEMP 36.1–36.6; O2SAT 95–99; BMI 53.6
[2022-11-29] MEDS: Lactated Ringers 1,000 ML 50 ML IVCONT (11:40)
--- NOTE | 2022-11-29 12:01 | HO.ANESPROP2 ---
[facility] Active Problems Active Problems: All Active Problems (Updated 11/26/22 @ 11:07 by Savanna Andujar MD) Arthritis (Acute) Osteoarthritis of right knee (Acute) Congestive heart failure (Acute) Chest pain (Acute) Shortness of breath (Acute) A-fib (Acute) Microscopic hematuria (Acute) Urine discoloration (Acute) New onset a-fib (Acute) Palpitations (Acute) Overactive bladder (Acute) Morbid obesity (Acute) Lymphedema (Acute) Foot pain (Acute) Elevated TSH (Acute) Rotator cuff tear (Acute) Wounds, multiple open, lower extremity (Acute) Left shoulder pain (Acute) Neuropathy (Acute) Sprain of left shoulder (Acute) Constipation (Acute) Spondylosis of thoracic spine (Acute) Myofascial pain syndrome (Acute) Hepatitis C antibody positive in blood (Acute) Elevated LFTs (Acute) Myofascial pain syndrome (Acute) Elevated bilirubin (Acute) Low TSH level (Acute) Elevated alkaline phosphatase level (Acute) Left knee pain (Acute) Left ankle pain (Acute) Foot pain (Acute) COPD (chronic obstructive pulmonary disease) (Acute) Screening PSA (prostate specific antigen) (Acute) S/P shoulder surgery (Acute) Physical exam (Acute) Pneumonia due to COVID-19 virus (Acute) Acute respiratory failure with hypoxia (Acute) Leg edema, left (Acute) Cellulitis (Acute) Varicose veins of left lower extremity with inflammation (Acute) Sinus tachycardia (Acute) Bilateral lower extremity edema (Acute) Respiratory failure with hypoxia (Acute) Restrictive lung disease (Acute) COPD (chronic obstructive pulmonary disease) (Acute) JEFFRY on CPAP (Acute) Morbid obesity (Acute) Chronic cystitis (Acute) Bladder outlet obstruction (Acute) MATUTE (dyspnea on exertion) (Acute) Past Medical History Medical History Hereditary lymphedema Venous insufficiency Morbid obesity Lymphedema COPD (chronic obstructive pulmonary disease) Sensory neuropathy COVID-19 Respiratory failure with hypoxia Restrictive lung disease COPD (chronic obstructive pulmonary disease) JEFFRY on CPAP Morbid obesity MATUTE (dyspnea on exertion) Chronic cystitis Bladder outlet obstruction Restless leg syndrome Traumatic complete tear of right rotator cuff Injury of right rotator cuff JEFFRY (obstructive sleep apnea) COPD (chronic obstructive pulmonary disease) History of diverticulitis History of umbilical hernia Functional capacity: independent ambulation Family History Family History Father Arthritis Diabetes Mother Arthritis Kidney stones Family/Other Arthritis Sister No problems noted. Sister No problems noted. Son No problems noted. Surgical History Surgical History Hx of colonoscopy History of appendectomy History of arthroscopy of left knee Social History Social History Household Members: Spouse Household Members Other:: [place] Housing: Condominium Do you presently have visiting nurse or other home services: No Alcohol intake: current Alcohol intake frequency: 0-2 drinks per day Alcohol type: beer Patient Tobacco Use Status: Former Tobacco user Years Smoked: 30 years e-Cigarette/Vaping Use: Never Used Second Hand Smoke Exposure: No Substance Use Type: Marijuana Substance Use Frequency: Daily Are you DNR?: No Advance Directives: No Advance Directives Information Provided: Yes Advance Directives Date on File: 05/16/20 Nutrition Risks: Recent weight gain service: No Current occupational status: retired 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 -[employer] Cognitive needs: No Hearing needs: No Vision needs: No Meds Allergies Allergy/AdvReac Type Severity Reaction Status Date / Time No Known Allergies Allergy Verified 11/26/22 10:59 [No Known Allergies*] Active Medications: Current Medications Albuterol Sulfate (Albuterol Sulfate (0.083%) 2.5 Mg/3 Ml Vial.Neb) 2.5 mg INHALE ONCE PRN PRN Reason: Shortness of Breath/Wheezing Lactated Ringer's (Lr) 1,000 mls @ 50 mls/hr IVCONT .Q20H MICHELLE Last Admin: 11/29/22 11:40 Dose: 50 mls/hr Home Medications Medication Instructions Recorded Confirmed Last Taken Type duloxetine 60 mg capsule,delayed 60 mg PO DAILY 11/17/19 11/29/22 10/13/22 09:00 History release ropinirole 2 mg tablet 2 mg PO TID 05/16/20 11/29/22 10/13/22 09:00 History albuterol sulfate 90 mcg/actuation 2 puff PO Q6H PRN for wheezing 10/13/22 11/29/22 Unknown History aerosol inhaler Exam Exam Date and Time: November 29, 2022 1201 Height,Weight and Vital Signs: Height 6 ft 4 in Weight 199.581 kg Last Vital Signs Temp 97.9 F 11/29/22 11:01 Pulse 82 11/29/22 11:01 Resp 18 11/29/22 11:01 BP 131/78 11/29/22 11:01 Pulse Ox 99 11/29/22 11:01 O2 Del Method Nasal Cannula 11/29/22 11:01 O2 Flow Rate 3 11/29/22 11:01 Airway Mallampati Class: IV TM Dist: >3cm Neck ROM: Full Heart: irreg. Lungs: CTA Assessment and Plan Final Anesthetic Review Patient Risk: Intermediate Procedure Risk: Low Anesthetic Plan Anesthetic Plan: GA Disposition: Standard PACU
--- NOTE | 2022-11-29 12:48 | HO.CARDIVERS ---
Cardioversion Procedure Note Cardioversion Date of Procedure: 11/29/2022 Ordering Provider: Dejan King MD Performing Provider: Dejan Kign MD Indication for Procedure: Persistent atrial fibrillation. Congestive heart failure. Performed with Transesophageal Echo: No History: [age] gentleman with diastolic heart failure and atrial fibrillation. He is here for cardioversion. Consent: Verbal and Written consent was obtained from the patient before starting. The patient was made aware of the risk of complications of anesthesia, failure to achieve sinus rhythm and stroke. Procedure: After consent obtained, defib pads were attached and the patient was sedated by the anesthesia team. Once adequate sedation achieved, the patient was given synchronized shock of 200 joules. He did not revert to sinus rhythm. We tried again at 200 joules which was unsuccessful. At this stage we gave 150 mg of amiodarone bolus and tried again where he converted to sinus rhythm for 1 beat and then went back into atrial fibrillation. He was left with Anesthesia for recovery. Complications: No acute complications. Impression: Unsuccessful cardioversion. Recommendations: Stop digoxin. Continue Toprol-XL at 50 mg once a day. Adding amiodarone 400 mg twice a day times 10 days followed by 200 mg daily. He has lung disease and previous COVID and we will use amiodarone short-term. Post cardioversion if he feels significantly improved from rhythm control strategy then we can consider referral to electrophysiology for further assessment including ablation.
--- NOTE | 2022-11-29 12:48 | MHC.SHP ---
Pre-Procedural Eval Section A Date of Service: 11/29/22 The patient is an INPATIENT: No Section B Chief Complaint: Other persistent atrial fibrillation Allergies: Allergies Allergy/AdvReac Type Severity Reaction Status Date / Time No Known Allergies Allergy Verified 11/26/22 10:59 [No Known Allergies*] Plan Diagnosis/Plan: Unchanged I have reviewed the history and physical and performed a pertinent physical examination on my patient. No changes have occurred unless specified. Time Spent With Patient Time: Total time managing care of this patient today ____ minutes.
== END 2022-11-29 13:52 | disposition home or self-care (01) ==
PROVIDERS: PCP Nurse Practitioner Family; Visit Provider Internal Medicine Cardiovascular Disease
PROC: 5A2204Z Restoration of Cardiac Rhythm, Single (ICD-10-PCS; principal; 2022-11-29 12:00)
DX: I48.19 Other persistent atrial fibrillation (principal); I50.30 Unspecified diastolic (congestive) heart failure; Z79.01 Long term (current) use of anticoagulants; J44.9 Chronic obstructive pulmonary disease, unspecified; E66.01 Morbid (severe) obesity due to excess calories; Z68.43 Body mass index [BMI] 50.0-59.9, adult; Z86.16 Personal history of COVID-19
CPT/HCPCS: 92960; J0283

== ENCOUNTER → 2022-11-29 10:12 | Outpatient (BNV) | payer MEDICARE, SELFPAY | PROVIDERS: PCP Nurse Practitioner Family; Visit Provider Internal Medicine Cardiovascular Disease | DX: I48.19 Other persistent atrial fibrillation (principal) | CPT/HCPCS: 92960 ==

== ENCOUNTER 2022-12-19 10:38 | Outpatient (AMB) | payer MEDICARE, SELFPAY ==
--- NOTE | 2022-12-19 10:56 | MHC.OFFVIS ---
Intake Vital Signs 12/19/22 10:57 Height 6 ft 4 in Weight 440 lb 14.792 oz BMI 53.7 BP 112/68 Blood Pressure Location Rt brachial Position Sitting Pulse 78 Pulse Source Pulse Oximeter Temp 97.2 F Temp Source Skin Pulse Oximetry (%) 96 Intake Visit Reasons: OA Intake Note: New pt presents today for OA consult. C/o pain in multiple sites. Pain started approx. 10-15 years ago. Has tried naproxen 1500mg daily, unable to use NSAIDS now because of afib and blood thinners. Follows with pulm, uro and cardiology. Preforms Laminator Required: No Accompanied by: Self / Same As Patient Allergies No Known Allergies [No Known Allergies*] Allergy (Verified 12/19/22 11:09) Medication List - Last Reconciled 12/19/22 by Kristi Acosta MD albuterol sulfate 90 mcg/actuation 2 puffs PO Q6H PRN amiodarone 200 mg orally Take 2 tablets twice a day for 14 days then 200 mg daily.; Anoro Ellipta 62.5-25 mcg/actuation (umeclidinium-vilanterol) 1 inh PO DAILY NS apixaban (Eliquis) 5 mg PO BID atorvastatin 80 mg PO BEDTIME 90 days blood pressure kit-extra large As directed blood pressure monitor As directed cyclobenzaprine 10 mg PO BID PRN 20 days doxazosin 8 mg PO BEDTIME 90 days duloxetine 60 mg PO DAILY finasteride 5 mg PO DAILY 90 days furosemide (Lasix) 40 mg PO DAILY methimazole 5 mg PO DAILY metoprolol succinate ER TAKE 1 TABLET BY MOUTH EVERY DAY oxybutynin chloride ER 10 mg PO DAILY 90 days oxycodone 5 mg PO BID PRN 8 days prednisone Take 2 tabs by mouth once daily for 1 week then stay on 1 tab daily pregabalin 150 mg PO TID 30 days ropinirole 2 mg PO TID spironolactone TAKE 1 TABLET BY MOUTH DAILY HPI HPI Comments History of Present Illness Details This is a 67-year-old male presents for evaluation of multiple joint pain. Patient states that he has diffuse pain everywhere. Including neck, shoulders, hands, knees, ankles and feet. States that he had left knee replacement 10 years ago. He has severe right knee osteoarthritis and receives periodic steroid injections which helped for 1 or 2 months. States that he has severe bilateral hand stiffness. It lasts all day. Associated with swelling. He can hardly make a fist. States that he used to take naproxen which was quite helpful for all his joint pain but he is no longer able to take it due to being on Eliquis for AFib Of note patient has restrictive lung disease and is on home oxygen. He also has a CPAP machine for sleep apnea [facility] Medical History (Updated 12/19/22 @ 11:41 by Kristi Acosta MD) Screening for viral disease Rheumatoid arthritis Hereditary lymphedema Venous insufficiency Morbid obesity Lymphedema COPD (chronic obstructive pulmonary disease) Sensory neuropathy COVID-19 Respiratory failure with hypoxia Restrictive lung disease COPD (chronic obstructive pulmonary disease) JEFFRY on CPAP Morbid obesity MATUTE (dyspnea on exertion) Chronic cystitis Bladder outlet obstruction Restless leg syndrome Traumatic complete tear of right rotator cuff Injury of right rotator cuff JEFFRY (obstructive sleep apnea) COPD (chronic obstructive pulmonary disease) History of diverticulitis History of umbilical hernia Surgical History Hx of colonoscopy History of appendectomy History of arthroscopy of left knee Family History Father Arthritis Diabetes Mother Arthritis Kidney stones Family/Other Arthritis Sister No problems noted. Sister No problems noted. Son No problems noted. 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 -[employer] Cognitive needs: No Hearing needs: No Vision needs: No Review of Systems Const Reports fatigue, Reports weakness and Reports weight gain Eyes Reports itchy eyes ENT Reports dizziness and Reports dry mouth Card Reports chest pain, Reports irregular heart rhythm and Reports dyspnea Resp Reports dyspnea and Reports wheezing GI Reports heartburn Musc Reports arthralgias, Reports joint swelling, Reports limited range of motion and Reports stiffness Neuro Reports dizziness and Reports weakness Psych Reports depression Endo Reports fatigue and Reports polydipsia Aller/Immun Reports itchy eyes and Reports wheezing Physical Exam Vital Signs: Last Vital Signs Temp 97.2 F 12/19/22 10:57 Pulse 78 12/19/22 10:57 BP 112/68 12/19/22 10:57 Pulse Ox 96 12/19/22 10:57 BMI result Body Mass Index 53.7 Const General: cooperative, healthy appearing and comfortable Nutritional Appearance: obese morbidly obese Orientation/consciousness: patient oriented x3 Limitations: no limitations HEENT Head: Yes normocephalic and Yes atraumatic Mouth: moist mucous membranes Resp Effort & Inspection: normal respiratory effort and able to speak in complete sentences Skin Other: Erythema of both ankles likely due to venous stasis Neuro General: patient oriented x3 Extrem Other: Bilateral wrist tenderness and pain with flexion and extension Right 3rd MCP tenderness Right 2nd and 3rd PIP tenderness Right 2nd through 5th DIP tenderness but much less severe than other joints Generalized puffiness of his fingers Left wrist tenderness to palpation and pain with flexion and extension Few MCP tenderness on the left Few PIP tenderness on the left. DIP tenderness but less pronounced Normal nailfold capillaroscopy Assessment & Plan Assessment & Plan (1) Polyarthralgia: Code(s): M25.50 - Pain in unspecified joint Plan: 67-year-old male presents for evaluation of diffuse joint pain. Patient has known severe osteoarthritis affecting multiple joints. Upon evaluation of his hands however he has some features of inflammatory arthritis. Previous labs showed negative RF/CCP/MIKEY/SSA/SSB. HLA B27 was negative in the past. Will check inflammatory markers and x-ray both hands and wrists. Start prednisone therapeutic trial. Follow-up in 2-3 weeks Plan I spent 46 minutes reviewing patient's chart, evaluating patient, ordering diagnostic workup, counseling patient and documenting in the chart Orders: Orders Complete Blood Count Auto Diff Today M06.9 - Rheumatoid arthritis, unspecified Comprehensive Met. Panel Today M06.9 - Rheumatoid arthritis, unspecified T Spot TB Today M06.9 - Rheumatoid arthritis, unspecified XR hand wrist RT Today M06.9 - Rheumatoid arthritis, unspecified XR hand wrist LT Today M06.9 - Rheumatoid arthritis, unspecified C Reactive Protein Today M06.9 - Rheumatoid arthritis, unspecified Erythrocyte Sedimentation Rate Today M06.9 - Rheumatoid arthritis, unspecified Hepatitis A,B,C Profile Today Z11.59 - Encounter for screening for other viral diseases Medications: New prednisone Take 2 tabs by mouth once daily for 1 week then stay on 1 tab daily 28 tabs 0RF Coding Level of Care Code New Pt Level 4 (96211) Diagnoses Polyarthralgia M25.50
[2022-12-19 10:57] VITALS: BP 112/68; PULSE 78; TEMP 36.2; O2SAT 96; BMI 53.7
== END 2022-12-19 11:38 | disposition home or self-care (01) ==
PROVIDERS: PCP Nurse Practitioner Family; Referring Provider Nurse Practitioner Family; Visit Provider Student in an Organized Health Care Education/Training Program
DX: M25.50 Pain in unspecified joint (principal)
CPT/HCPCS: 99204

== ENCOUNTER → 2022-12-19 10:38 | Outpatient (BNVA) | payer MEDICARE, SELFPAY | PROVIDERS: PCP Nurse Practitioner Family; Visit Provider Student in an Organized Health Care Education/Training Program | DX: M25.50 Pain in unspecified joint (principal); R76.11 Nonspecific reaction to tuberculin skin test without active tuberculosis; Z11.59 Encounter for screening for other viral diseases; Z79.891 Long term (current) use of opiate analgesic; Z79.52 Long term (current) use of systemic steroids; Z99.81 Dependence on supplemental oxygen | CPT/HCPCS: 73110; 73130; 36415; 80053; 85025; 85652; 86140; 86481; 86704; 86706; 86709; 86803; 87340; 99202 ==

== ENCOUNTER 2022-12-19 12:08 | Outpatient (REF) | payer MEDICARE, SELFPAY ==
--- NOTE | ~2022-12-19 | XR_ITS ---
EXAMINATION: XR HAND, BILATERAL CLINICAL INFORMATION: Rheumatoid arthritis. COMPARISON: 07/23/2011. TECHNIQUE: 3 views of each hand. FINDINGS: RIGHT HAND: Severe degenerative changes in the 1st carpometacarpal joint and STT with joint space narrowing and hypertrophic change. Small periarticular cystic lucencies. Corticated 1.1 cm cystic lucency at the base of the 1st metacarpal. Degenerative changes with joint space narrowing and hypertrophic change in the metacarpophalangeal joint, most notable in the 1st MTP joint. Mild degenerative changes in the IP joint of the thumb. LEFT HAND: Moderate degenerative changes in the 1st carpometacarpal joint and STT with joint space narrowing and hypertrophic change. Small periarticular cystic lucencies. Moderate joint space narrowing in the metacarpophalangeal joints. Severe degenerative changes in the 5th digit PIP joint with hypertrophic change, central erosions and loss of the joint space. Moderate degenerative changes in the DIP joints, most notable in the 2nd DIP joint. XR/XR hand wrist LT IMPRESSION: Interval progression of degenerative changes in the bilateral hands, as detailed above. No displaced fracture. Recommend follow up imaging in 10-14 days if fracture is suspected.
--- NOTE | ~2022-12-19 | XR_ITS ---
EXAMINATION: XR HAND, BILATERAL CLINICAL INFORMATION: Rheumatoid arthritis. COMPARISON: 07/23/2011. TECHNIQUE: 3 views of each hand. FINDINGS: RIGHT HAND: Severe degenerative changes in the 1st carpometacarpal joint and STT with joint space narrowing and hypertrophic change. Small periarticular cystic lucencies. Corticated 1.1 cm cystic lucency at the base of the 1st metacarpal. Degenerative changes with joint space narrowing and hypertrophic change in the metacarpophalangeal joint, most notable in the 1st MTP joint. Mild degenerative changes in the IP joint of the thumb. LEFT HAND: Moderate degenerative changes in the 1st carpometacarpal joint and STT with joint space narrowing and hypertrophic change. Small periarticular cystic lucencies. Moderate joint space narrowing in the metacarpophalangeal joints. Severe degenerative changes in the 5th digit PIP joint with hypertrophic change, central erosions and loss of the joint space. Moderate degenerative changes in the DIP joints, most notable in the 2nd DIP joint. XR/XR hand wrist RT IMPRESSION: Interval progression of degenerative changes in the bilateral hands, as detailed above. No displaced fracture. Recommend follow up imaging in 10-14 days if fracture is suspected.
[2022-12-19 13:33] LABS: Basophils Absolute Auto 0.1 X10*3/uL (0.0-0.2); Basophils Percent Auto 0.7 % (0-2); Eosinophils Absolute Auto 0.2 X10*3/uL (0.0-0.4); Eosinophils Percent Auto 2.5 % (0-4); Hematocrit 43.8 % (42.0-52.0); Hemoglobin 14.8 g/dl (14.0-18.0); Imm Gran Abs Auto 0.04 X10*3/uL (0.00-0.03); Imm Gran Pct Auto 0.5 % (0.0-0.4); Lymphocytes Absolute Auto 1.8 X10*3/uL (1.2-4.9); Lymphocytes Percent Auto 21.3 % (20-40); Mean Corpuscular HGB Conc 33.8 g/dl (31.0-36.0); Mean Corpuscular Volume 100.7 fL (80.0-98.0); Monocytes Absolute Auto 0.6 X10*3/uL (0.1-1.2); Monocytes Percent Auto 6.9 % (2-11); Neutrophils Absolute Auto 5.8 x10*3/uL (2.0-8.3); Neutrophils Percent Auto 68.1 % (45-73); Red Blood Count 4.35 X10*6/uL (4.60-5.80); Red Cell Distribution Width 13.3 % (11.0-16.0)
[2022-12-19 13:35] LABS: White Blood Count 8.5 X10*3/uL (4.8-10.8)
[2022-12-19 14:11] LABS: Erythrocyte Sedimentation Rate 13 MM/HR (0-15)
[2022-12-19 14:14] LABS: Alanine Aminotransferase 17 U/L (0-40); Albumin Level 3.8 g/dL (3.5-5.0); Alkaline Phosphatase 103 U/L (39-117); Anion Gap 13 (12-20); Aspartate Amino Transferase 24 U/L (5-37); Blood Urea Nitrogen 15 mg/dL (9-16); C Reactive Protein 1.77 mg/dL (< or = 0.50); Calcium 9.5 mg/dL (8.4-10.2); Carbon Dioxide 23 mmol/L (22-29); Chloride 105 mmol/L (96-108); Estimated Glomerular Filt Rate > 60; Glucose Random 78 mg/dL (60-115); Potassium 4.6 mmol/L (3.3-5.1); Sodium 136 mmol/L (135-145); Total Protein 7.8 g/dL (6.5-8.0)
[2022-12-21 22:54] LABS: TS Negative Control Passed; TS Panel A 0; TS Panel B 0; TS Positive Control Passed; TSpotTB Negative (Negative)
[2022-12-23 04:44] LABS: HBS Num1 0.89 mIU/mL (0-7.99); Hepatitis A Antibody IgM 0.16 Index (0-0.79); Hepatitis B Surface Antigen Negative (Negative); ~HepC Num1 1.23 S/CO (0.00-0.79); ~Hepatitis A Antibody IgM Nonreactive (Nonreactive); ~Hepatitis B Surface Antibody NONREACTIVE (Nonreactive); ~Hepatitis C Antibody Reactive (Nonreactive)
[2022-12-23 05:15] LABS: HBc Num1 0.08 S/CO (0.00-0.79); Hepatitis B Core Antibody Nonreactive (Nonreactive)
== END 2022-12-19 12:09 | disposition home or self-care (01) ==
LOC: HO.HMGCX 12:08
PROVIDERS: PCP Nurse Practitioner Family; Visit Provider Student in an Organized Health Care Education/Training Program
DX: Z13.89 Encounter for screening for other disorder (principal)
CPT/HCPCS: 36415; 73110; 73130; 80053; 85025; 85652; 86140; 86481; 86704; 86706; 86709; 86803; 87340

== ENCOUNTER 2022-12-23 14:36 | Outpatient (AMB) | payer MEDICARE, SELFPAY ==
[2022-12-23 15:27] VITALS: BP 112/62; PULSE 59; BMI 53.6
--- NOTE | 2022-12-23 15:27 | A.OFFVIS_ITS ---
Intake Vital Signs 12/23/22 15:27 Height 6 ft 4 in Weight 440 lb BMI 53.6 BP 112/62 Blood Pressure Location Rt brachial Position Sitting Pulse 59 Intake Visit Reasons: 1 month fu + ekg- starting amiodarone Intake Note: 1 month f/u s/b tired then usual Air Commodore Required: No Ocean Forwarder: Ocean Forwarder Present Allergies No Known Allergies [No Known Allergies*] Allergy (Verified 12/23/22 15:30) Medication List - Last Reconciled 12/23/22 by CARMITA Lee albuterol sulfate 90 mcg/actuation 2 puffs PO Q6H PRN amiodarone 200 mg orally Take 2 tablets twice a day for 14 days then 200 mg daily.; Anoro Ellipta 62.5-25 mcg/actuation (umeclidinium-vilanterol) 1 inh PO DAILY NS apixaban (Eliquis) 5 mg PO BID atorvastatin 80 mg PO BEDTIME 90 days blood pressure kit-extra large As directed blood pressure monitor As directed cyclobenzaprine 10 mg PO BID PRN 20 days doxazosin 8 mg PO BEDTIME 90 days duloxetine 60 mg PO DAILY finasteride 5 mg PO DAILY 90 days furosemide (Lasix) 40 mg PO DAILY methimazole 5 mg PO DAILY oxybutynin chloride ER 10 mg PO DAILY 90 days oxycodone 5 mg PO BID PRN 8 days prednisone Take 2 tabs by mouth once daily for 1 week then stay on 1 tab daily pregabalin 150 mg PO TID 30 days ropinirole 2 mg PO TID spironolactone TAKE 1 TABLET BY MOUTH DAILY HPI 1 month fu + ekg- starting amiodarone HPI Details Dinh is a 67-year-old male with past medical history of morbid obesity, obstructive sleep apnea with CPAP use, COPD on home O2, who was admitted to [facility] September 2022 with increased shortness of breath and found to have new diagnosis of atrial fibrillation. He was treated with heart rate control and started on anticoagulation. Initially had some hematuria which has since resolved. He did undergo an unsuccessful cardioversion on 11/29/2022 and was started on amiodarone. Today he reports that he continues to not feel well. He has shortness of breath with activity which he feels is worse since the onset of atrial fibrillation. He uses his oxygen more since atrial fibrillation. He notices some dizziness when he tries to get up and walk. He is not noticing any chest discomfort at rest or with activity. He has orthopnea, no PND and has chronic stable lower leg edema. He is wearing a Velcro wraps on his legs today. No presyncope, syncope, falls. No bleeding issues reported. He is currently sitting in a wheelchair. is present. FORMERLY [facility], [facility] Medical History Screening for viral disease Rheumatoid arthritis Hereditary lymphedema Venous insufficiency Morbid obesity Lymphedema COPD (chronic obstructive pulmonary disease) Sensory neuropathy COVID-19 Respiratory failure with hypoxia Restrictive lung disease COPD (chronic obstructive pulmonary disease) JEFFRY on CPAP Morbid obesity MATUTE (dyspnea on exertion) Chronic cystitis Bladder outlet obstruction Restless leg syndrome Traumatic complete tear of right rotator cuff Injury of right rotator cuff JEFFRY (obstructive sleep apnea) COPD (chronic obstructive pulmonary disease) History of diverticulitis History of umbilical hernia Surgical History Hx of colonoscopy History of appendectomy History of arthroscopy of left knee Family History Father Arthritis Diabetes Mother Arthritis Kidney stones Family/Other Arthritis Sister No problems noted. Sister No problems noted. Son No problems noted. 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 -[employer] Cognitive needs: No Hearing needs: No Vision needs: No Review of Systems Const All systems reviewed & are unremarkable except as noted in HPI and below ENT Reports dizziness Card Denies chest pain, Denies chest pain at rest, Denies chest pain with activity, Denies rapid heart rate, Denies pedal edema, Denies edema, Reports leg edema, Denies lightheadedness, Denies palpitations, Reports dyspnea, Reports dyspnea on exertion and Denies orthopnea Resp Denies cough, Reports dyspnea and Reports dyspnea on exertion GI Denies hematochezia and Denies change in stool character Musc Reports abnormal gait, Reports limited range of motion, Denies muscle cramps, Denies muscle weakness, Denies numbness, Denies radiating pain into limb, Denies stiffness and Denies tingling Neuro Reports abnormal gait, Reports dizziness, Denies numbness and Denies tingling Endo Denies palpitations Physical Exam Vital Signs: Last Vital Signs Pulse 59 12/23/22 15:27 BP 112/62 12/23/22 15:27 BMI result Body Mass Index 53.6 Const Other: Morbidly obese General: cooperative, comfortable and no acute distress Orientation/consciousness: patient oriented x3 Neck Neck: Yes normal visual inspection Resp Effort & Inspection: normal respiratory effort Auscultation: clear to auscultation bilaterally, no crackles, no rales, no rhonchi and no wheezes Cardio Jugular venous distension: no JVD Rate: regular rate Rhythm: abnormal rhythm Heart sounds: S1 normal heart sound present, S2 normal heart sound present, no murmurs and no rubs Neuro General: patient oriented x3 Extrem Other: Velcro wraps to lower legs bilaterally Psych Appearance: grossly normal Mental Status: mental status grossly normal Speech and movement: Normal speech and movement present Office Procedures EKG Details: Today, read by me, atrial fibrillation with slow ventricular response, rate 59, right bundle branch block, with the exception of rate no unchanged from prior EKG, QTC 467 millisecond [id number], Complete Assessment & Plan Assessment & Plan (1) A-fib: Code(s): I48.91 - Unspecified atrial fibrillation Qualifiers: Atrial fibrillation type: persistent (not longstanding) Qualified Code(s): I48.19 - Other persistent atrial fibrillation Plan: Newer finding of atrial fibrillation when he presented to [facility] [place] [place]/13/22 for shortness of breath. He was treated with heart rate control and continues to have persistent AFib. He was started on metoprolol and digoxin. Echocardiogram 10/10/2022 showed EF 40-50%, no valve abnormalities. He was put on Eliquis for anticoagulation. He initially had some hematuria which has fully resolved. Holter monitor done 10/10/2022 for 3 days shows atrial fib, rate 86, PVCs 1.3% of time. He underwent a cardioversion on 11/29/2022 which once on successful. He was started on an amiodarone load of 400 mg b.i.d. for 14 days then 200 mg daily. He was taken off digoxin and metoprolol. Today he reports that he is almost done with the amiodarone load. Continues to feel poorly with shortness of breath and some newer lightheadedness when he tries to walk. EKG done today showing atrial fibrillation with slow ventricular response, rate 59, right bundle branch block, overall unchanged from last EKG with the exception of heart rate. He is not on any other rate slowing medications be sides amiodarone. Will check with Dr. King to see when a repeat cardioversion can be performed. Instructed to continue Eliquis without any interruption in preparation for cardioversion. Plan of care with his atrial fibrillation reviewed with him. If he does report improvement in his symptoms while in sinus rhythm then will refer to electrophysiology for possible ablation. Patient agreeable to this plan. Cardiology follow-up 2 weeks post cardioversion, sooner if needed. (2) Morbid obesity: Code(s): E66.01 - Morbid (severe) obesity due to excess calories Plan: Weight loss would be beneficial for his overall health. He is aware of this and states he is trying. (3) JEFFRY on CPAP: Comment: KNOWN TO HAVE OBSTRUCTIVE SLEEP APNEA. USES CPAP REGULARLY AND HAS BEEN VERY COMPLIANT AND BENEFITTING. CURRENTLY USING OXYGEN 2 L/MT ALONG WITH CPAP AT NIGHTTIME. Code(s): G47.33 - Obstructive sleep apnea (adult) (pediatric); Z99.89 - Dependence on other enabling machines and devices Plan: Compliant with his CPAP each night (4) Congestive heart failure: Comment: continue all meds as prescribed, INCLUDING LASIX Code(s): I50.9 - Heart failure, unspecified Qualifiers: Heart failure type: combined systolic and diastolic Plan: Mild Congestive heart failure during last hospital admission. He was sent home with Lasix 40 mg daily. Labs done 10/20/2022 showed creatinine 1.04, potassium 4.0. He is morbidly obese making assessment for fluid overload more challenging. He does have some increased shortness of breath however lungs seem clear on examination. Reviewed signs and symptoms of heart failure with him. Will continue on current Lasix. Reviewed low-salt diet. Coding Level of Care Code Est Pt Level 4 (03046) Diagnoses Persistent atrial fibrillation I48.19 Atrial fibrillation type: persistent (not longstanding) Morbid obesity E66.01 JEFFRY on CPAP G47.33; Z99.89 Congestive heart failure I50.9 Heart failure type: combined systolic and diastolic CPT Codes EKG - CPT: [id number], Complete ([id number]) Time Spent (min) 30
== END 2022-12-23 16:07 | disposition home or self-care (01) ==
PROVIDERS: PCP Nurse Practitioner Family; Visit Provider Nurse Practitioner Family
DX: I48.19 Other persistent atrial fibrillation (principal); E66.01 Morbid (severe) obesity due to excess calories; G47.33 Obstructive sleep apnea (adult) (pediatric); Z99.89 Dependence on other enabling machines and devices; I50.9 Heart failure, unspecified
CPT/HCPCS: 93010; 99214

== ENCOUNTER → 2022-12-23 14:36 | Outpatient (BNVA) | payer MEDICARE, SELFPAY | PROVIDERS: PCP Nurse Practitioner Family; Visit Provider Nurse Practitioner Family | DX: I48.19 Other persistent atrial fibrillation (principal); I50.9 Heart failure, unspecified; G47.33 Obstructive sleep apnea (adult) (pediatric); E66.01 Morbid (severe) obesity due to excess calories; Z68.43 Body mass index [BMI] 50.0-59.9, adult; Z79.01 Long term (current) use of anticoagulants; Z79.899 Other long term (current) drug therapy; Z99.89 Dependence on other enabling machines and devices | CPT/HCPCS: 93005; 99212 ==

== ENCOUNTER 2023-01-02 15:43 | Outpatient (AMB) | payer MEDICARE, SELFPAY ==
--- NOTE | 2023-01-02 15:54 | A.OFFVIS_ITS ---
Intake Vital Signs 01/02/23 15:55 Height 6 ft 4 in Weight 442 lb 11.011 oz BMI 53.9 BP 122/68 Blood Pressure Location Rt brachial Position Sitting Pulse 75 Pulse Source Pulse Oximeter Temp 96.9 F Temp Source Skin Pulse Oximetry (%) 97 Oxygen Delivery Method Nasal Cannula Intake Visit Reasons: OA/RA Intake Note: Pt last seen 12/19/22, presents today for follow up and test results. Almost done with prednisone taper, down to 1mg daily.. states he felt better when he was at a higher dose. C/o pain bl hands, knees, hips and ankles. 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: No Accompanied by: Self / Same As Patient Allergies No Known Allergies [No Known Allergies*] Allergy (Verified 01/02/23 15:57) Medication List - Last Reconciled 01/02/23 by Kristi Acosta MD albuterol sulfate 90 mcg/actuation 2 puffs PO Q6H PRN amiodarone 200 mg orally Take 2 tablets twice a day for 14 days then 200 mg daily.; Anoro Ellipta 62.5-25 mcg/actuation (umeclidinium-vilanterol) 1 inh PO DAILY NS apixaban (Eliquis) 5 mg PO BID atorvastatin 80 mg PO BEDTIME 90 days blood pressure kit-extra large As directed blood pressure monitor As directed cyclobenzaprine 10 mg PO BID PRN 20 days doxazosin 8 mg PO BEDTIME 90 days duloxetine 60 mg PO DAILY finasteride 5 mg PO DAILY 90 days furosemide (Lasix) 40 mg PO DAILY methimazole 5 mg PO DAILY oxybutynin chloride ER 10 mg PO DAILY 90 days oxycodone 5 mg PO BID PRN 8 days prednisone Take 2 tabs by mouth once daily for 1 week then stay on 1 tab daily pregabalin 150 mg PO TID 30 days ropinirole 2 mg PO TID spironolactone TAKE 1 TABLET BY MOUTH DAILY HPI HPI Comments History of Present Illness Details Patient returns for follow-up after completion of his diagnostic workup and prednisone taper. States that he felt at least 50% better when he was taking 20 mg of prednisone. Improved joint pain stiffness and swelling of his hands. States that the 10 mg dose was not nearly as helpful. Initial history: This is a 67-year-old male presents for evaluation of multiple joint pain. Patient states that he has diffuse pain everywhere. Including neck, shoulders, hands, knees, ankles and feet. States that he had left knee replacement 10 years ago. He has severe right knee osteoarthritis and receives periodic steroid injections which helped for 1 or 2 months. States that he has severe bilateral hand stiffness. It lasts all day. Associated with swelling. He can hardly make a fist. States that he used to take naproxen which was quite helpful for all his joint pain but he is no longer able to take it due to being on Eliquis for AFib Of note patient has restrictive lung disease and is on home oxygen. He also has a CPAP machine for sleep apnea [facility] Medical History (Updated 01/02/23 @ 16:32 by Kristi Acosta MD) Hereditary lymphedema Venous insufficiency Morbid obesity Lymphedema COPD (chronic obstructive pulmonary disease) Sensory neuropathy COVID-19 Respiratory failure with hypoxia Restrictive lung disease COPD (chronic obstructive pulmonary disease) JEFFRY on CPAP Morbid obesity MATUTE (dyspnea on exertion) Chronic cystitis Bladder outlet obstruction Restless leg syndrome Traumatic complete tear of right rotator cuff Injury of right rotator cuff JEFFRY (obstructive sleep apnea) COPD (chronic obstructive pulmonary disease) History of diverticulitis History of umbilical hernia Surgical History Hx of colonoscopy History of appendectomy History of arthroscopy of left knee Family History Father Arthritis Diabetes Mother Arthritis Kidney stones Family/Other Arthritis Sister No problems noted. Sister No problems noted. Son No problems noted. 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 -[employer] Cognitive needs: No Hearing needs: No Vision needs: No Review of Systems Musc Reports arthralgias, Reports joint swelling, Reports limited range of motion and Reports stiffness Physical Exam Vital Signs: Last Vital Signs Temp 96.9 F 01/02/23 15:55 Pulse 75 01/02/23 15:55 BP 122/68 01/02/23 15:55 Pulse Ox 97 01/02/23 15:55 Oxygen Delivery Method Nasal Cannula 01/02/23 15:55 BMI result Body Mass Index 53.9 Const General: cooperative, healthy appearing and comfortable Nutritional Appearance: obese morbidly obese Orientation/consciousness: patient oriented x3 Limitations: no limitations HEENT Head: Yes normocephalic and Yes atraumatic Mouth: moist mucous membranes Resp Effort & Inspection: normal respiratory effort and able to speak in complete sentences Skin Other: Erythema of both ankles likely due to venous stasis Neuro General: patient oriented x3 Extrem Other: Bilateral wrist tenderness and pain with flexion and extension Right 3rd MCP tenderness Right 2nd and 3rd PIP tenderness Right 2nd through 5th DIP tenderness but much less severe than other joints Generalized puffiness of his fingers bilaterally Left wrist tenderness to palpation and pain with flexion and extension Few MCP tenderness on the left Few PIP tenderness on the left. DIP tenderness but less pronounced Normal nailfold capillaroscopy Significant bilateral 1st CMC joint tenderness Assessment & Plan Assessment & Plan (1) Polyarthralgia: Code(s): M25.50 - Pain in unspecified joint Plan: 67-year-old male presents for evaluation of diffuse joint pain. Patient has known severe osteoarthritis affecting multiple joints. Previous labs showed negative RF/CCP/MIKEY/SSA/SSB. HLA B27 was negative in the past. His CRP is mildly elevated but this can be normal for his weight. Upon evaluation he has puffiness of his MCPs , fingers and PIPs. His x-rays are more consistent with bilateral hand osteoarthritis. Symptoms improved with 20 mg of prednisone. Advised patient to start applying Voltaren gel affected painful joints of the hands. Patient stated that he will be going for a cardioversion next week. Follow-up in 2-3 weeks and we will consider bilateral 1st CMC joint injections Plan I spent 16 minutes reviewing patient's chart, evaluating patient, counseling patient and documenting in the chart Coding Level of Care Code Est Pt Level 3 (43939) Diagnoses Polyarthralgia M25.50
[2023-01-02 15:55] VITALS: BP 122/68; PULSE 75; TEMP 36.1; O2SAT 97; BMI 53.9
== END 2023-01-02 16:30 | disposition home or self-care (01) ==
PROVIDERS: PCP Nurse Practitioner Family; Visit Provider Student in an Organized Health Care Education/Training Program
DX: M25.50 Pain in unspecified joint (principal)
CPT/HCPCS: 99213

== ENCOUNTER → 2023-01-02 15:43 | Outpatient (BNVA) | payer MEDICARE, SELFPAY | PROVIDERS: PCP Nurse Practitioner Family; Visit Provider Student in an Organized Health Care Education/Training Program | DX: M25.50 Pain in unspecified joint (principal) | CPT/HCPCS: 99212 ==

== ENCOUNTER 2023-01-07 11:39 | Day surgery (SDC) | payer MEDICARE, SELFPAY ==
[2023-01-03 14:35] VITALS: BMI 53.6
--- NOTE | 2023-01-06 10:14 | P.CONAN_ITS ---
Documented by User: Mamta Carey NP 01/06/23 10:16 HPI - Anesthesia Eval Consult details Narrative: 67yo M for Cardioversion s/p same 11/29/22 with MAC Eliquis for afib O2 dependent - 3L QHS with cpap, 2-3L prn activity PMFSH Active Problems Active Problems: All Active Problems (Updated 01/03/23 @ 14:36 by Stacie Spear RN) Polyarthralgia (Acute) Arthritis (Acute) Osteoarthritis of right knee (Acute) Congestive heart failure (Acute) A-fib (Acute) Shortness of breath (Acute) Chest pain (Acute) Microscopic hematuria (Acute) Urine discoloration (Acute) New onset a-fib (Acute) Palpitations (Acute) Overactive bladder (Acute) Foot pain (Acute) Elevated TSH (Acute) Rotator cuff tear (Acute) Wounds, multiple open, lower extremity (Acute) Left shoulder pain (Acute) Neuropathy (Acute) Sprain of left shoulder (Acute) Constipation (Acute) Spondylosis of thoracic spine (Acute) Myofascial pain syndrome (Acute) Hepatitis C antibody positive in blood (Acute) Elevated LFTs (Acute) Myofascial pain syndrome (Acute) Elevated bilirubin (Acute) Low TSH level (Acute) Elevated alkaline phosphatase level (Acute) Left knee pain (Acute) Left ankle pain (Acute) Foot pain (Acute) Screening PSA (prostate specific antigen) (Acute) Bilateral lower extremity edema (Acute) Sinus tachycardia (Acute) Varicose veins of left lower extremity with inflammation (Acute) Cellulitis (Acute) Leg edema, left (Acute) Acute respiratory failure with hypoxia (Acute) Pneumonia due to COVID-19 virus (Acute) Physical exam (Acute) S/P shoulder surgery (Acute) Morbid obesity (Acute) Lymphedema (Acute) COPD (chronic obstructive pulmonary disease) (Acute) Respiratory failure with hypoxia (Acute) Restrictive lung disease (Acute) COPD (chronic obstructive pulmonary disease) (Acute) JEFFRY on CPAP (Acute) Morbid obesity (Acute) Chronic cystitis (Acute) Bladder outlet obstruction (Acute) MATUTE (dyspnea on exertion) (Acute) Past Medical History Medical History Hereditary lymphedema Venous insufficiency Morbid obesity Lymphedema COPD (chronic obstructive pulmonary disease) Sensory neuropathy COVID-19 Respiratory failure with hypoxia Restrictive lung disease COPD (chronic obstructive pulmonary disease) JEFFRY on CPAP MATUTE (dyspnea on exertion) Chronic cystitis Bladder outlet obstruction Restless leg syndrome Traumatic complete tear of right rotator cuff Injury of right rotator cuff History of diverticulitis History of umbilical hernia Family History Family History Father Arthritis Diabetes Mother Arthritis Kidney stones Family/Other Arthritis Sister No problems noted. Sister No problems noted. Son No problems noted. Surgical History Surgical History Hx of colonoscopy History of appendectomy History of arthroscopy of left knee Social History Household Members: Spouse Household Members Other:: Floridalma Housing: [facility] Do you presently have visiting nurse or other home services: No Alcohol intake: current Alcohol intake frequency: 0-2 drinks per day Alcohol type: beer Patient Tobacco Use Status: Former Tobacco user Quit Date: 2011 Tobacco use type: Cigarette Cigarette Packs Per Day: 1 Cigarettes Per Day: 20.0 Years Smoked: 30 years e-Cigarette/Vaping Use: Never Used Second Hand Smoke Exposure: No Substance Use Type: Marijuana Advance Directives Date on File: 05/16/20 service: No Current occupational status: retired 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 -[employer] Cognitive needs: No Hearing needs: No Vision needs: No Meds Allergies Allergy/AdvReac Type Severity Reaction Status Date / Time No Known Allergies Allergy Verified 01/02/23 15:57 [No Known Allergies*] Home Medications Medication Instructions Recorded Confirmed Last Taken Type duloxetine 60 mg capsule,delayed 60 mg PO DAILY 11/17/19 01/03/23 10/13/22 09:00 History release ropinirole 2 mg tablet 2 mg PO TID 05/16/20 01/03/23 10/13/22 09:00 History albuterol sulfate 90 mcg/actuation 2 puff PO Q6H PRN for wheezing 10/13/22 01/03/23 Unknown History aerosol inhaler Exam Height,Weight and Vital Signs: Height 6 ft 4 in Weight 199.581 kg Pertinent Lab Results Pertinent Lab Results: Laboratory Tests 12/19/22 12:13 WBC 8.5 Hgb 14.8 Hct 43.8 Plt Count TNP Sodium 136 Potassium 4.6 Chloride 105 Carbon Dioxide 23 BUN 15 Creatinine 0.90 Narrative Narrative: EKG 11/2022 atrial fibrillation, right bundle branch block, can not exclude inferior inf arct, rate 75, QTC 453 milliseconds ECHO 09/2022 Conclusions: - Even with contrast, difficult to assess LVEF. Suspect mildly reduced, about 40-50%. - No obvious valvular pathology seen on this study. - Mild pulmonary hypertension is present. Assessment and Plan Assessment Anesthesia Assessment: Chart Reviewed Documented by User: Rosa Goddard MD 01/07/23 15:50 HPI - Anesthesia Eval Consult details Narrative: 67yo M for Cardioversion s/p same 11/29/22 with GA. Unsuccessful. Has been on amiodarone. Eliquis for afib O2 dependent - 3L QHS with cpap, 2-3L prn activity SOB with minimal exertion. Has worsened. H/o CHF PMFSH Active Problems Active Problems: All Active Problems (Updated 01/07/23 @ 13:25 by Rosa Goddard MD) Polyarthralgia (Acute) Arthritis (Acute) Osteoarthritis of right knee (Acute) Congestive heart failure (Acute) A-fib (Acute) Shortness of breath (Acute) Chest pain (Acute) Microscopic hematuria (Acute) Urine discoloration (Acute) New onset a-fib (Acute) Palpitations (Acute) Overactive bladder (Acute) Foot pain (Acute) Elevated TSH (Acute) Rotator cuff tear (Acute) Wounds, multiple open, lower extremity (Acute) Left shoulder pain (Acute) Neuropathy (Acute) Sprain of left shoulder (Acute) Constipation (Acute) Spondylosis of thoracic spine (Acute) Myofascial pain syndrome (Acute) Hepatitis C antibody positive in blood (Acute) Elevated LFTs (Acute) Myofascial pain syndrome (Acute) Elevated bilirubin (Acute) Low TSH level (Acute) Elevated alkaline phosphatase level (Acute) Left knee pain (Acute) Left ankle pain (Acute) Foot pain (Acute) Screening PSA (prostate specific antigen) (Acute) Bilateral lower extremity edema (Acute) Sinus tachycardia (Acute) Varicose veins of left lower extremity with inflammation (Acute) Cellulitis (Acute) Leg edema, left (Acute) Acute respiratory failure with hypoxia (Acute) Pneumonia due to COVID-19 virus (Acute) Physical exam (Acute) S/P shoulder surgery (Acute) Morbid obesity (Acute) Lymphedema (Acute) COPD (chronic obstructive pulmonary disease) (Acute) Respiratory failure with hypoxia (Acute) Restrictive lung disease (Acute) COPD (chronic obstructive pulmonary disease) (Acute) JEFFRY on CPAP (Acute) Morbid obesity (Acute) Chronic cystitis (Acute) Bladder outlet obstruction (Acute) MATUTE (dyspnea on exertion) (Acute) Past Medical History Medical History Hereditary lymphedema Venous insufficiency Morbid obesity Lymphedema COPD (chronic obstructive pulmonary disease) Sensory neuropathy COVID-19 Respiratory failure with hypoxia Restrictive lung disease COPD (chronic obstructive pulmonary disease) JEFFRY on CPAP MATUTE (dyspnea on exertion) Chronic cystitis Bladder outlet obstruction Restless leg syndrome Traumatic complete tear of right rotator cuff Injury of right rotator cuff History of diverticulitis History of umbilical hernia Family History Family History Father Arthritis Diabetes Mother Arthritis Kidney stones Family/Other Arthritis Sister No problems noted. Sister No problems noted. Son No problems noted. Family history of problems with anesthesia: No Surgical History Surgical History Hx of colonoscopy History of appendectomy History of arthroscopy of left knee History of Problems with Anesthesia: No Social History Household Members: Spouse Household Members Other:: Floridalma Housing: Condominium Do you presently have visiting nurse or other home services: No Alcohol intake: current Alcohol intake frequency: 0-2 drinks per day Alcohol type: beer Patient Tobacco Use Status: Former Tobacco user Quit Date: 2011 Tobacco use type: Cigarette Cigarette Packs Per Day: 1 Cigarettes Per Day: 20.0 Years Smoked: 30 years e-Cigarette/Vaping Use: Never Used Second Hand Smoke Exposure: No Substance Use Type: Marijuana Advance Directives Date on File: 05/16/20 service: No Current occupational status: retired 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 -[employer] Cognitive needs: No Hearing needs: No Vision needs: No Meds Allergies Allergy/AdvReac Type Severity Reaction Status Date / Time No Known Allergies Allergy Verified 01/02/23 15:57 [No Known Allergies*] Home Medications Medication Instructions Recorded Confirmed Last Taken Type duloxetine 60 mg capsule,delayed 60 mg PO DAILY 11/17/19 01/03/23 10/13/22 09:00 History release ropinirole 2 mg tablet 2 mg PO TID 05/16/20 01/03/23 10/13/22 09:00 History albuterol sulfate 90 mcg/actuation 2 puff PO Q6H PRN for wheezing 10/13/22 01/03/23 Unknown History aerosol inhaler Exam Height,Weight and Vital Signs: Height 6 ft 4 in Weight 199.581 kg Vital Signs Temp Pulse Resp BP Pulse Ox O2 Del Method O2 Flow Rate 97.6 F 74 20 117/75 98 Nasal Cannula 3 01/07/23 12:36 01/07/23 12:36 01/07/23 12:36 01/07/23 12:36 01/07/23 12:36 01/07/23 12:36 01/07/23 12:36 Airway Mallampati Class: III TM Dist: >3cm Neck ROM: Full Loose/Missing/Broken Teeth: Yes (Some missing. Denies broken or loose teeth) Heart: Irregularly irregular Lungs: CTAB Assessment and Plan Assessment Anesthesia Assessment: Anesthesia Plan Discussed Final Anesthetic Review Family History of Problems with Anesthesia: No History of Problems with Anesthesia: No NPO: Yes ASA Class: IV Final Preanesthetic Review: No Changes in Pt Med Stat, Meds/Allgs Chart Reviewed, Consent Obtained/Reviewed and Anes Risks/Benef Reviewed Patient Risk: High Procedure Risk: Intermediate Assessment/Block/Sedation in SS: Assess/Block/Sedation-SS Anesthetic Plan Anesthetic Plan: GA Disposition: Standard PACU
--- NOTE | 2023-01-07 | ECG_ITS ---
Test Reason : postop Blood Pressure : / mmHG Vent. Rate : 070 BPM Atrial Rate : 070 BPM P-R Int : 278 ms QRS Dur : 166 ms QT Int : 460 ms P-R-T Axes : 033 013 011 degrees QTc Int : 496 ms Sinus rhythm with 1st degree A-V block Right bundle branch block Abnormal ECG When compared with ECG of 13-OCT-2022 11:33, Sinus rhythm has replaced Atrial fibrillation QT has lengthened Referred By: Dejan King Electronically Signed By:ADDIE MATHEW MD
[2023-01-07 12:36] VITALS: BP 117/75; PULSE 74; RESP 20; TEMP 36.4; O2SAT 98; BMI 53.6
[2023-01-07] MEDS: Lactated Ringers 1,000 ML 100 ML IVCONT (12:58)
[2023-01-07 13:53] VITALS: BP 113/81; PULSE 77; RESP 22; TEMP 36.2; O2SAT 99
--- NOTE | 2023-01-07 13:54 | MHC.SHP ---
Pre-Procedural Eval Section A Date of Service: 01/07/23 The patient is an INPATIENT: No Section B Chief Complaint: Other persistent atrial fibrillation Allergies: Allergies Allergy/AdvReac Type Severity Reaction Status Date / Time No Known Allergies Allergy Verified 01/02/23 15:57 [No Known Allergies*] Plan Diagnosis/Plan: Unchanged I have reviewed the history and physical and performed a pertinent physical examination on my patient. No changes have occurred unless specified. Time Spent With Patient Time: Total time managing care of this patient today ____ minutes.
--- NOTE | 2023-01-07 13:55 | HO.CARDIVERS ---
Cardioversion Procedure Note Cardioversion Date of Procedure: 01/07/23 Ordering Provider: Dejan King MD Performing Provider: Dejan King MD Indication for Procedure: Persistent Afib. Performed with Transesophageal Echo: No Consent: Verbal and Written consent was obtained from the patient before starting. The patient was made aware of the risk of stroke, failure and skin ernandez. Procedure: After consent obtained, defib pads were attached and the patient was sedated by the anesthesia team. Once adequate sedation achieved, We gave 200 J synchronized shock but the patient continue to be in Afib. At this stage we placed a IV bag on the pads and applied pressure and gave 2nd shock which converted the rhythm to atrial flutter. We tried 3rd shock with significant pressure on the chest and he converted to sinus rhythm. Complications: none Recommendations: Continue amiodarone and apixaban. We will see him back in office in few weeks.
[2023-01-07 13:58] VITALS: BP 123/74; PULSE 75; RESP 22; O2SAT 98
[2023-01-07 14:03] VITALS: BP 126/73; PULSE 76; RESP 24; O2SAT 98
[2023-01-07 14:08] VITALS: BP 119/74; PULSE 72; RESP 0; O2SAT 98
[2023-01-07 14:22] VITALS: BP 117/58; PULSE 71; RESP 14; TEMP 36.2; O2SAT 100
== END 2023-01-07 15:38 | disposition home or self-care (01) ==
PROVIDERS: PCP Nurse Practitioner Family; Visit Provider Internal Medicine Cardiovascular Disease
PROC: 5A2204Z Restoration of Cardiac Rhythm, Single (ICD-10-PCS; principal; 2023-01-07 13:30)
DX: I48.19 Other persistent atrial fibrillation (principal); Z79.01 Long term (current) use of anticoagulants; J44.9 Chronic obstructive pulmonary disease, unspecified; Z99.81 Dependence on supplemental oxygen; E66.01 Morbid (severe) obesity due to excess calories; Z68.43 Body mass index [BMI] 50.0-59.9, adult; G47.33 Obstructive sleep apnea (adult) (pediatric); Z99.89 Dependence on other enabling machines and devices; Z87.891 Personal history of nicotine dependence
CPT/HCPCS: 92960; 93005; J2704

== ENCOUNTER → 2023-01-07 11:39 | Outpatient (BNV) | payer MEDICARE, SELFPAY | PROVIDERS: PCP Nurse Practitioner Family; Visit Provider Internal Medicine Cardiovascular Disease | DX: I48.19 Other persistent atrial fibrillation (principal) | CPT/HCPCS: 92960 ==

== ENCOUNTER 2023-01-16 13:31 | Outpatient (AMB) | payer MEDICARE, SELFPAY ==
--- NOTE | 2023-01-16 13:54 | A.OFFVIS_ITS ---
Intake Vital Signs 01/16/23 13:55 Height 6 ft 4 in Weight 449 lb 11.888 oz BMI 54.7 BP 110/80 Blood Pressure Location Lt femoral Position Sitting Pulse 77 Pulse Source Pulse Oximeter Temp 97.2 F Temp Source Skin Pulse Oximetry (%) 97 Oxygen Delivery Method Room Air Intake Visit Reasons: OA Intake Note: Pt last seen 01/02/23, presents today for follow up and possible injection. Using voltaren. Would like to refill prednisone. 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 Accompanied by: Self / Same As Patient Allergies No Known Allergies [No Known Allergies*] Allergy (Verified 01/16/23 14:02) Medication List - Last Reconciled 01/16/23 by Kristi Acosta MD albuterol sulfate 90 mcg/actuation 2 puffs PO Q6H PRN amiodarone 200 mg PO DAILY Anoro Ellipta 62.5-25 mcg/actuation (umeclidinium-vilanterol) 1 inh PO DAILY NS apixaban (Eliquis) 5 mg PO BID atorvastatin 80 mg PO BEDTIME 90 days blood pressure kit-extra large As directed blood pressure monitor As directed doxazosin 8 mg PO BEDTIME 90 days duloxetine 60 mg PO DAILY finasteride 5 mg PO DAILY 90 days furosemide (Lasix) 40 mg PO DAILY methimazole 5 mg PO DAILY oxybutynin chloride ER 10 mg PO DAILY 90 days pregabalin 150 mg PO TID 30 days ropinirole 2 mg PO TID spironolactone TAKE 1 TABLET BY MOUTH DAILY HPI HPI Comments History of Present Illness Details 67-year-old male with generalized osteoa rthritis returns for follow-up. States that Voltaren gel does help the pain in his hands and fingers. He continues over to have diffuse pain in his hands and fingers. Most symptomatic today is the left index PIP, followed by his bilateral thumb pain Initial history: This is a 67-year-old male presents for evaluation of multiple joint pain. Patient states that he has diffuse pain everywhere. Including neck, shoulders, hands, knees, ankles and feet. States that he had left knee replacement 10 years ago. He has severe right knee osteoarthritis and receives periodic steroid injections which helped for 1 or 2 months. States that he has severe bilateral hand stiffness. It lasts all day. Associated with swelling. He can hardly make a fist. States that he used to take naproxen which was quite helpful for all his joint pain but he is no longer able to take it due to being on Eliquis for AFib Of note patient has restrictive lung disease and is on home oxygen. He also has a CPAP machine for sleep apnea [facility] Medical History History of cardioversion Hereditary lymphedema Venous insufficiency Morbid obesity Lymphedema COPD (chronic obstructive pulmonary disease) Sensory neuropathy COVID-19 Respiratory failure with hypoxia Restrictive lung disease COPD (chronic obstructive pulmonary disease) JEFFRY on CPAP MATUTE (dyspnea on exertion) Chronic cystitis Bladder outlet obstruction Restless leg syndrome Traumatic complete tear of right rotator cuff Injury of right rotator cuff History of diverticulitis History of umbilical hernia Surgical History Hx of colonoscopy History of appendectomy History of arthroscopy of left knee Family History Father Arthritis Diabetes Mother Arthritis Kidney stones Family/Other Arthritis Sister No problems noted. Sister No problems noted. Son No problems noted. Social History Household Members: Spouse Household Members Other:: Floridalma Housing: Condominium Do you presently have visiting nurse or other home services: No Alcohol intake: current Alcohol intake frequency: 0-2 drinks per day Alcohol type: beer Comment: refusing bed alarm Patient Tobacco Use Status: Former Tobacco user Quit Date: 2011 Tobacco use type: Cigarette Cigarette Packs Per Day: 1 Cigarettes Per Day: 20.0 Years Smoked: 30 years e-Cigarette/Vaping Use: Never Used Second Hand Smoke Exposure: No Substance Use Type: Marijuana Advance Directives Date on File: 05/16/20 service: No Current occupational status: retired 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 -[employer] Cognitive needs: No Hearing needs: No Vision needs: No Review of Systems Musc Reports arthralgias, Reports joint swelling and Reports stiffness Physical Exam Vital Signs: Last Vital Signs Temp 97.2 F 01/16/23 13:55 Pulse 77 01/16/23 13:55 BP 110/80 01/16/23 13:55 Pulse Ox 97 01/16/23 13:55 Oxygen Delivery Method Room Air 01/16/23 13:55 BMI result Body Mass Index 54.7 Const General: cooperative, healthy appearing and comfortable Nutritional Appearance: obese morbidly obese Orientation/consciousness: patient oriented x3 Limitations: no limitations HEENT Head: Yes normocephalic and Yes atraumatic Mouth: moist mucous membranes Resp Effort & Inspection: normal respiratory effort and able to speak in complete sentences Skin Other: Erythema of both ankles likely due to venous stasis Neuro General: patient oriented x3 Extrem Other: Significant bilateral 1st CMC joint tenderness Left 2nd PIP swelling and tenderness Office Procedures Joint Injection/Drain Joint Injection/Drain Primary Site: right thumb Secondary Site: left thumb Prep: site was prepped using sterile technique and ethochloride spray was applied Injected: other (15 mg of Kenalog mixed with 0.1 mL of 1% lidocaine) Approach Used: other Procedure: The patient tolerated the procedure well Coding Details: After prepping the right 1st CMC joint area with ChloraPrep, ethyl chloride spray was used then using a 27 gauge needle 15 mg of Kenalog mixed with 0.1 cc of 1% lidocaine was injected into the joint space After prepping the left 1st CMC joint area with ChloraPrep, ethyl chloride spray was used then using a 27 gauge needle 15 mg of Kenalog mixed with 0.1 cc of 1% lidocaine was injected into the joint space - Small Joint (X2) Procedure code (CPT) selection complete Assessment & Plan Assessment & Plan (1) Polyarthralgia: Code(s): M25.50 - Pain in unspecified joint Plan: 67-year-old male presents for evaluation of diffuse joint pain. Patient has known severe osteoarthritis affecting multiple joints. Previous labs showed negative RF/CCP/MIKEY/SSA/SSB. HLA B27 was negative in the past. His CRP is mildly elevated but this can be normal for his weight. Upon evaluation he has puffiness of his MCPs , fingers and PIPs. His x-rays are more consistent with bilateral hand osteoarthritis. Symptoms improved with 20 mg of prednisone. Symptoms also improved with Voltaren gel. Patient can continue using Voltaren gel. Follow-up in 3 my (2) Osteoarthritis of hands, bilateral: Code(s): M19.041 - Primary osteoarthritis, right hand; M19.042 - Primary osteoarthritis, left hand Qualifiers: Osteoarthritis type: primary Qualified Code(s): M19.041 - Primary osteoarthritis, right hand; M19.042 - Primary osteoarthritis, left hand Plan: With patient's consent bilateral 1st CMC joint was injected with Kenalog today. The most symptomatic joint today however is the left index PIP. Will refer patient to Hand surgery for further evaluation Plan I spent 16 minutes reviewing patient's chart, evaluating patient, counseling patient and documenting in the chart Orders: Orders AMB Joint Injection/Aspiration Today M19.041 - Primary osteoarthritis, right hand, M19.042 - Primary osteoarthritis, left hand Referrals Hand Surgery Referral M19.041 - Primary osteoarthritis, right hand, M19.042 - Primary osteoarthritis, left hand Coding Level of Care Code Est Pt Level 3 (54121) Diagnoses Polyarthralgia M25.50 Primary osteoarthritis of both hands M19.041; M19.042 Osteoarthritis type: primary CPT Codes Coding - - Small joint: 05070 - Small Joint ([id number])
[2023-01-16 13:55] VITALS: BP 110/80; PULSE 77; TEMP 36.2; O2SAT 97; BMI 54.7
== END 2023-01-16 14:57 | disposition home or self-care (01) ==
PROVIDERS: PCP Nurse Practitioner Family; Visit Provider Student in an Organized Health Care Education/Training Program
DX: M25.50 Pain in unspecified joint (principal); M19.041 Primary osteoarthritis, right hand; M19.042 Primary osteoarthritis, left hand; M18.0 Bilateral primary osteoarthritis of first carpometacarpal joints
CPT/HCPCS: 20600; 99213

== ENCOUNTER → 2023-01-16 13:31 | Outpatient (BNVA) | payer MEDICARE, SELFPAY | PROVIDERS: PCP Nurse Practitioner Family; Visit Provider Student in an Organized Health Care Education/Training Program | DX: M19.041 Primary osteoarthritis, right hand (principal); M19.042 Primary osteoarthritis, left hand; M25.50 Pain in unspecified joint | CPT/HCPCS: 20600; 99212 ==

== ENCOUNTER 2023-01-23 10:12 | Outpatient (AMB) | payer MEDICARE, SELFPAY ==
--- NOTE | 2023-01-23 10:41 | A.OFFVIS_ITS ---
Intake Vital Signs 01/23/23 10:42 Height 6 ft 4 in Weight 440 lb BMI 53.6 BP 130/78 Blood Pressure Location Lt brachial Position Sitting Pulse 87 Pulse Source Pulse Oximeter Pulse Oximetry (%) 96 Oxygen Delivery Method Nasal Cannula Oxygen Flow Rate 3 Intake Visit Reasons: Obstructive sleep apnea Intake Note: pt is here for follow up and states he is in a-fib, he is stable, pulmonary rehab is on hold and needs clearance to go back. 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 Allergies No Known Allergies [No Known Allergies*] Allergy (Verified 01/23/23 11:00) Medication List - Last Reconciled 01/23/23 by Savanna Andujar MD albuterol sulfate 90 mcg/actuation 2 puffs PO Q6H PRN amiodarone 200 mg PO DAILY Anoro Ellipta 62.5-25 mcg/actuation (umeclidinium-vilanterol) 1 inh PO DAILY NS apixaban (Eliquis) 5 mg PO BID atorvastatin 80 mg PO BEDTIME 90 days blood pressure kit-extra large As directed blood pressure monitor As directed doxazosin 8 mg PO BEDTIME 90 days duloxetine 60 mg PO DAILY finasteride 5 mg PO DAILY 90 days furosemide (Lasix) 40 mg PO DAILY methimazole 5 mg PO DAILY oxybutynin chloride ER 10 mg PO DAILY 90 days pregabalin 150 mg PO TID 30 days ropinirole 2 mg PO TID spironolactone TAKE 1 TABLET BY MOUTH DAILY Do you need a note to return to daycare/school/sports/work: No HPI Obstructive sleep apnea HPI Details Dinh comes after 2 months for follow-up. Breathing status has remained very stable. His weight goes up and down mainly dependent on fluid retention. Uses CPAP at night and sleeps well. Also uses O2. 3 L/minute along with the CPAP During the daytime he uses O2 when he exerts or goes outdoors, but not at home. Recent cardioversion for atrial fibrillation, so for feeling okay. His the pulmonary rehab program is on hold, because of cardioversion. He is anxious to go back because it helps him to do some exercise on a regular b asis. [facility] Medical History History of cardioversion Hereditary lymphedema Venous insufficiency Morbid obesity Lymphedema COPD (chronic obstructive pulmonary disease) Sensory neuropathy COVID-19 Respiratory failure with hypoxia Restrictive lung disease COPD (chronic obstructive pulmonary disease) JEFFRY on CPAP MATUTE (dyspnea on exertion) Chronic cystitis Bladder outlet obstruction Restless leg syndrome Traumatic complete tear of right rotator cuff Injury of right rotator cuff History of diverticulitis History of umbilical hernia Surgical History Hx of colonoscopy History of appendectomy History of arthroscopy of left knee Family History Father Arthritis Diabetes Mother Arthritis Kidney stones Family/Other Arthritis Sister No problems noted. Sister No problems noted. Son No problems noted. Social History Household Members: Spouse Household Members Other:: Floridalma [facility] Do you presently have visiting nurse or other home services: No Alcohol intake: current Alcohol intake frequency: 0-2 drinks per day Alcohol type: beer Comment: refusing bed alarm Patient Tobacco Use Status: Former Tobacco user Quit Date: 2011 Tobacco use type: Cigarette Cigarette Packs Per Day: 1 Cigarettes Per Day: 20.0 Years Smoked: 30 years e-Cigarette/Vaping Use: Never Used Second Hand Smoke Exposure: No Substance Use Type: Marijuana Advance Directives Date on File: 05/16/20 service: No Current occupational status: retired 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 -[employer] Cognitive needs: No Hearing needs: No Vision needs: No Review of Systems Const All systems reviewed & are unremarkable except as noted in HPI and below Eyes Reports no additional complaints ENT Reports no additional complaints Card Denies chest pain, Denies irregular heart rhythm and Denies leg edema Resp Reports as per HPI GI Reports no additional complaints Reports no additional complaints Musc Reports back pain Skin/Breast Reports system reviewed and no additional complaints, except as documented Neuro Reports no additional complaints Psych Reports no additional complaints Physical Exam Vital Signs: Last Vital Signs Pulse 87 01/23/23 10:42 BP 130/78 01/23/23 10:42 Pulse Ox 96 01/23/23 10:42 Oxygen Delivery Method Nasal Cannula 01/23/23 10:42 Oxygen Flow Rate 3 01/23/23 10:42 BMI result Body Mass Index 53.6 Const Other: wearing oxygen General: cooperative, healthy appearing, comfortable and no acute distress Orientation/consciousness: patient oriented x3 HEENT Head: Yes normal to inspection General nose exam: No nasal polyps present and No nasal discharge present Face and sinus: Yes sinuses nontender Mouth: oropharynx normal Throat: Yes posterior oropharynx normal Eyes General: appearance normal, both eyes and all related structures Neck Neck: Yes normal visual inspection, Yes no lymphadenopathy, Yes trachea midline and Yes no JVD Thyroid: Thyroid normal Chest Chest palpation & inspection: normal inspection of the chest, normal palpation of entire chest wall and no tenderness Resp Other: Percussion note not perceptible because of thick chest wall. Breath sounds are distant and especially decreased over the basilar areas. No wheezes or crepitations are heard. Effort & Inspection: normal respiratory effort and able to speak in complete sentences Auscultation: clear to auscultation bilaterally Cardio Palpation: PMI not normal (Not palpable) Rate: regular rate Rhythm: abnormal rhythm and other (Atrial fib) Heart sounds: no gallops and no murmurs GI Palpation (GI): Soft to palpation, nontender, No hepatosplenomegaly present, no masses and Other GI palpation findings present (Grossly obese and protuberant) Auscultation: normal bowel sounds Back/Spine/Pelvis Cervical Spine: normal cervical lordosis and cervical ROM normal Thoracic/Lumbar Spine: thoracic and lumbar spine normal to inspection, thoraco- lumbar ROM normal and paraspinal muscle tenderness (left trapezius/rhomboid tenderness and tautness of musculature to palpation) Skin General skin exam: no rashes or lesions noted Neuro General: patient oriented x3 and Normal light touch and pain sensation Cranial nerves: Yes CN's II-XII intact bilaterally Extrem General: Yes edema (Has chronic stasis edema /lymphedema both legs which is currently increased) and Yes venous stasis dermatitis Psych Appearance: grossly normal Mental Status: mental status grossly normal Speech and movement: Normal speech and movement present Assessment & Plan Assessment & Plan (1) Morbid obesity: Comment: He is of a big size since childhood. Case of super morbid obesity. At present his weight is up in down depending upon the amount of fluid retention. Overall it is staying stable. Code(s): E66.01 - Morbid (severe) obesity due to excess calories Plan: Needs to have continued, appropriate diuretic therapy. He has watches his. Diet very carefully He is not able to do any exercise. (2) JEFFRY on CPAP: Comment: KNOWN TO HAVE OBSTRUCTIVE SLEEP APNEA. USES CPAP REGULARLY AND HAS BEEN VERY COMPLIANT AND BENEFITTING. CURRENTLY USING OXYGEN 2 L/MT ALONG WITH CPAP AT NIGHTTIME. Code(s): G47.33 - Obstructive sleep apnea (adult) (pediatric); Z99.89 - Dependence on other enabling machines and devices Plan: continue the same (3) COPD (chronic obstructive pulmonary disease): Comment: COPD remains stable and controlled, Lungs very clear * FROM PULMONARY POINT OF VIEW HE IS FIT TO REJOIN THE MAINTENANCE PULMONARY REHAB PROGRAM Code(s): J44.9 - Chronic obstructive pulmonary disease, unspecified Plan: TX: WIXELA 500-50 ONE INH BID ANORO Ellipta ONE INH DAILY . PROAIR 2 PUFFS Q 4-6 HRS PRN (4) Restrictive lung disease: Comment: RESTRICTION IS MAINLY BECAUSE OF HIS MORBID OBESITY. HE IS DOING BREATHING EXERCISES WITH INCENTIVE SPIROMETER., HE HAS BEEN IN PULMONARY REHAB PROGRAM, CURRENTLY CURRENTLY ON HOLD DUE TO HIS CARDIAC ISSUES. Code(s): J98.4 - Other disorders of lung (5) Acute respiratory failure with hypoxia: Comment: RESPIRATORY FAILURE WITH HYPOXEMIA DUE TO COMBINATION OF OBSTRUCTIVE AND RESTRICTIVE PULMONARY DISORDER, AND IS ESPECIALLY AT NIGHT, TREATED WITH O2 3 L/MINUTE ALONG WITH CPAP. DURING THE DAYTIME HE HAS PORTABLE UNIT BUT HARDLY NEEDS TO USE IT. Code(s): J96.01 - Acute respiratory failure with hypoxia Plan CONTINUE O2 2 L/MINUTE ALONG WITH CPAP AT NIGHT. CONTINUE O2 3 L/MINUTE WITH THE PORTABLE UNIT WHEN OUTDOORS. Coding Level of Care Code Est Pt Level 4 (50311) Diagnoses Morbid obesity E66.01 JEFFRY on CPAP G47.33; Z99.89 COPD (chronic obstructive pulmonary disease) J44.9 Restrictive lung disease J98.4 Acute respiratory failure with hypoxia J96.01
[2023-01-23 10:42] VITALS: BP 130/78; PULSE 87; O2SAT 96; BMI 53.6
== END 2023-01-23 11:14 | disposition home or self-care (01) ==
PROVIDERS: PCP Nurse Practitioner Family; Visit Provider Internal Medicine
DX: E66.01 Morbid (severe) obesity due to excess calories (principal); G47.33 Obstructive sleep apnea (adult) (pediatric); Z99.89 Dependence on other enabling machines and devices; J44.9 Chronic obstructive pulmonary disease, unspecified; J98.4 Other disorders of lung; J96.01 Acute respiratory failure with hypoxia
CPT/HCPCS: 99214

== ENCOUNTER → 2023-01-23 10:12 | Outpatient (BNVA) | payer MEDICARE, SELFPAY | PROVIDERS: PCP Nurse Practitioner Family; Visit Provider Internal Medicine | DX: G47.33 Obstructive sleep apnea (adult) (pediatric) (principal); J44.9 Chronic obstructive pulmonary disease, unspecified; J98.4 Other disorders of lung; J96.01 Acute respiratory failure with hypoxia; E66.01 Morbid (severe) obesity due to excess calories; Z99.89 Dependence on other enabling machines and devices; Z68.43 Body mass index [BMI] 50.0-59.9, adult | CPT/HCPCS: 99212 ==

== ENCOUNTER 2023-01-27 14:42 | Outpatient (AMB) | payer MEDICARE, SELFPAY ==
--- NOTE | 2023-01-27 15:00 | A.OFFVIS_ITS ---
Intake Vital Signs 01/27/23 15:01 Height 6 ft 4 in BP 130/82 Blood Pressure Location Lt brachial Position Sitting Pulse 64 Pulse Source Monitor Intake Visit Reasons: f/u cardiovertion Care Director Rn Required: No Allergies No Known Allergies [No Known Allergies*] Allergy (Verified 01/27/23 15:03) Medication List - Last Reconciled 01/27/23 by CARMITA Lee albuterol sulfate 90 mcg/actuation 2 puffs PO Q6H PRN amiodarone 200 mg PO DAILY Anoro Ellipta 62.5-25 mcg/actuation (umeclidinium-vilanterol) 1 inh PO DAILY NS apixaban (Eliquis) 5 mg PO BID atorvastatin 80 mg PO BEDTIME 90 days blood pressure kit-extra large As directed blood pressure monitor As directed doxazosin 8 mg PO BEDTIME 90 days duloxetine 60 mg PO DAILY finasteride 5 mg PO DAILY 90 days furosemide (Lasix) 40 mg PO DAILY methimazole 5 mg PO DAILY oxybutynin chloride ER 10 mg PO DAILY 90 days pregabalin 150 mg PO TID 30 days ropinirole 2 mg PO TID spironolactone TAKE 1 TABLET BY MOUTH DAILY HPI f/u cardiovertion HPI Details Dinh is a 67-year-old male with past medical history of morbid obesity, obstructive sleep apnea with CPAP use, COPD on home O2, who was admitted to [facility] September 2022 with increased shortness of breath and found to have new diagnosis of atrial fibrillation. He was treated with heart rate control and started on anticoagulation. Initially had some hematuria which has since resolved. He did undergo an unsuccessful cardioversion on 11/29/2022 and was started on amiodarone. Once fully loaded he underwent a repeat cardioversion on 01/07/2023 with successful conversion to sinus rhythm. Today he reports he is not feeling much different since the cardioversion. He continues to have shortness of breath with activity. He wears his oxygen with nasal cannula at most times. He is extremely short of breath walking only short distances. He admits to being mostly sedentary and is using a wheelchair at this visit. He denies having chest discomfort at rest or with activity. No heart palpitations, presyncope, syncope, falls. No coughing, he does have orthopnea. He has chronic lower leg edema from lymphedema and he is wearing Velcro wraps on his legs today. No bleeding issues reported. is present. He is asking for a note to go back to pulmonary rehab. [facility] Medical History History of cardioversion Hereditary lymphedema Venous insufficiency Morbid obesity Lymphedema COPD (chronic obstructive pulmonary disease) Sensory neuropathy COVID-19 Respiratory failure with hypoxia Restrictive lung disease COPD (chronic obstructive pulmonary disease) JEFFRY on CPAP MATUTE (dyspnea on exertion) Chronic cystitis Bladder outlet obstruction Restless leg syndrome Traumatic complete tear of right rotator cuff Injury of right rotator cuff History of diverticulitis History of umbilical hernia Surgical History Hx of colonoscopy History of appendectomy History of arthroscopy of left knee Family History Father Arthritis Diabetes Mother Arthritis Kidney stones Family/Other Arthritis Sister No problems noted. Sister No problems noted. Son No problems noted. Social History Household Members: Spouse Household Members Other:: Floridalma [facility] Do you presently have visiting nurse or other home services: No Alcohol intake: current Alcohol intake frequency: 0-2 drinks per day Alcohol type: beer Comment: refusing bed alarm Patient Tobacco Use Status: Former Tobacco user Quit Date: 2011 Tobacco use type: Cigarette Cigarette Packs Per Day: 1 Cigarettes Per Day: 20.0 Years Smoked: 30 years e-Cigarette/Vaping Use: Never Used Second Hand Smoke Exposure: No Substance Use Type: Marijuana Advance Directives Date on File: 05/16/20 service: No Current occupational status: retired 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 [employer] Cognitive needs: No Hearing needs: No Vision needs: No Review of Systems Const All systems reviewed & are unremarkable except as noted in HPI and below ENT Denies dizziness Card Denies chest pain, Denies chest pain at rest, Denies chest pain with activity, Denies rapid heart rate, Denies pedal edema, Denies edema, Denies leg edema, Denies lightheadedness, Denies palpitations, Reports dyspnea, Reports dyspnea on exertion and Denies orthopnea Resp Denies cough, Reports dyspnea and Reports dyspnea on exertion GI Denies hematochezia and Denies change in stool character Musc Reports abnormal gait, Denies limited range of motion, Denies muscle cramps, Reports muscle weakness, Denies numbness, Denies radiating pain into limb, Denies stiffness and Denies tingling Neuro Reports abnormal gait, Denies dizziness, Denies numbness and Denies tingling Endo Denies palpitations Physical Exam Vital Signs: Last Vital Signs Pulse 64 01/27/23 15:01 BP 130/82 01/27/23 15:01 Const Other: Morbidly obese General: cooperative, comfortable and no acute distress Orientation/consciousness: patient oriented x3 Neck Neck: Yes normal visual inspection Resp Effort & Inspection: normal respiratory effort Auscultation: clear to auscultation bilaterally, no crackles, no rales, no rhonchi and no wheezes Cardio Jugular venous distension: no JVD Rate: regular rate Rhythm: regular rhythm Heart sounds: S1 normal heart sound present, S2 normal heart sound present, no murmurs and no rubs Neuro General: patient oriented x3 Extrem Other: Velcro wraps to lower legs bilaterally Psych Appearance: grossly normal Mental Status: mental status grossly normal Speech and movement: Normal speech and movement present Office Procedures EKG Details: Today, read by me, sinus rhythm with first-degree AV block, right bundle branch block, rate 64, QTC 464, falsely prolonged with wide QRS [id number], Complete Assessment & Plan Assessment & Plan (1) A-fib: Code(s): I48.91 - Unspecified atrial fibrillation Qualifiers: Atrial fibrillation type: persistent (not longstanding) Qualified Code(s): I48.19 - Other persistent atrial fibrillation Plan: Newer finding of atrial fibrillation when he presented to [facility] [place] [place]22 for shortness of breath. He was treated with heart rate control and Eliquis for anticoagulation. He continued to have persistent AFib. Echocardiogram 10/10/2022 showed EF 40-50%, no valve abnormalities. Holter monitor done 10/10/2022 for 3 days shows atrial fib, rate 86, PVCs 1.3% of time. He underwent a cardioversion on 11/29/2022 which once unsuccessful. He was started on an amiodarone load then underwent a repeat cardioversion on 09/06/2022 with successful conversion to sinus rhythm. EKG done today is showing sinus rhythm with first-degree AV block, right bundle branch block, rate 64. Today he reports no significant change in his breathing since the cardioversion. He continues to wear oxygen 2 L most of the time. He had been in pulmonary rehab prior to the start of his AFib. He is now requesting a note to be able to go back to pulmonary rehab. He admits to being mostly sedentary and very short of breath with activity. This symptom is mostly related to his morbid obesity, sedentary lifestyle and COPD. His AFib may contribute to however it is difficult for him to tell at this time. Will have him continue with amiodarone at present since his rhythm is sinus. Will check labs including CMP and TSH, patient informed to obtain. Will see how he does in pulmonary rehab. On follow-up visit will consider change in antiarrhythmic since amiodarone should not be use long-term. Side effects of amiodarone reviewed with him. Going forward if he does feel better in sinus rhythm then will still consider referral to EP for possible ablation. Cardiology office visit 2-3 months, sooner if needed. Emergency care if ever needed for symptoms. (2) Morbid obesity: Comment: He is of a big size since childhood. Case of super morbid obesity. At present his weight is up in down depending upon the amount of fluid retention. Overall it is staying stable. Code(s): E66.01 - Morbid (severe) obesity due to excess calories Plan: Weight loss would be beneficial for his overall health. He is aware of this and states he is trying. (3) JEFFRY on CPAP: Comment: KNOWN TO HAVE OBSTRUCTIVE SLEEP APNEA. USES CPAP REGULARLY AND HAS BEEN VERY COMPLIANT AND BENEFITTING. CURRENTLY USING OXYGEN 2 L/MT ALONG WITH CPAP AT NIGHTTIME. Code(s): G47.33 - Obstructive sleep apnea (adult) (pediatric); Z99.89 - Dependence on other enabling machines and devices Plan: Compliant with his CPAP each night (4) Congestive heart failure: Comment: continue all meds as prescribed, INCLUDING LASIX Code(s): I50.9 - Heart failure, unspecified Qualifiers: Heart failure type: combined systolic and diastolic Plan: Mild Congestive heart failure during last hospital admission. He was sent home with Lasix 40 mg daily. Labs done 10/20/2022 showed creatinine 1.04, potassium 4.0. He is morbidly obese making assessment for fluid overload more challenging. He does have some increased shortness of breath however lungs seem clear on examination. Reviewed signs and symptoms of heart failure with him. Will continue on current Lasix. Reviewed low-salt diet. Will be updating labs. 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 Has chronic shortness of breath with no recent change. Orders: Orders TSH reflex Free T4 Today Z79.899 - Other middle or intermediate school principal (current) drug therapy Comprehensive Met. Panel Today I48.91 - Unspecified atrial fibrillation, I50.9 - Heart failure, unspecified B Type Natriuretic Peptide Today R06.02 - Shortness of breath Medications: Refilled apixaban (Eliquis) 5 mg PO BID 60 tabs 5RF Coding Level of Care Code Est Pt Level 4 (49451) Diagnoses Persistent atrial fibrillation I48.19 Atrial fibrillation type: persistent (not longstanding) Morbid obesity E66.01 JEFFRY on CPAP G47.33; Z99.89 Congestive heart failure I50.9 Heart failure type: combined systolic and diastolic On amiodarone therapy Z79.899 CPT Codes EKG - CPT: 41485-[id number], Complete ([id number]) Time Spent (min) 30
[2023-01-27 15:01] VITALS: BP 130/82; PULSE 64
== END 2023-01-27 15:38 | disposition home or self-care (01) ==
PROVIDERS: PCP Nurse Practitioner Family; Visit Provider Nurse Practitioner Family
DX: I48.19 Other persistent atrial fibrillation (principal); E66.01 Morbid (severe) obesity due to excess calories; G47.33 Obstructive sleep apnea (adult) (pediatric); Z99.89 Dependence on other enabling machines and devices; I50.9 Heart failure, unspecified; Z79.899 Other long term (current) drug therapy
CPT/HCPCS: 93010; 99214

== ENCOUNTER → 2023-01-27 14:42 | Outpatient (BNVA) | payer MEDICARE, SELFPAY | PROVIDERS: PCP Nurse Practitioner Family; Visit Provider Nurse Practitioner Family | DX: I48.19 Other persistent atrial fibrillation (principal); I50.9 Heart failure, unspecified; E66.01 Morbid (severe) obesity due to excess calories; G47.33 Obstructive sleep apnea (adult) (pediatric); Z79.899 Other long term (current) drug therapy; Z99.89 Dependence on other enabling machines and devices | CPT/HCPCS: 93005; 99212 ==

== ENCOUNTER 2023-02-05 11:05 | Outpatient (AMB) | payer MEDICARE, SELFPAY ==
--- NOTE | 2023-02-05 11:09 | A.OFFVIS_ITS ---
Intake Vital Signs 02/05/23 11:14 Height 6 ft 4 in Weight 447 lb BMI 54.4 BP 132/82 Blood Pressure Location Lt brachial Position Sitting Pulse 78 Pulse Source Pulse Oximeter Pulse Oximetry (%) 97 Oxygen Delivery Method Room Air Intake Visit Reasons: AWV-4 month f/u Allergies No Known Allergies [No Known Allergies*] Allergy (Verified 02/05/23 11:15) Medication List - Last Reconciled 02/05/23 by Diego Augustine, ACCOUNTS RECEIVABLE COORDINATOR- albuterol sulfate 90 mcg/actuation 2 puffs PO Q6H PRN amiodarone 200 mg PO DAILY Anoro Ellipta 62.5-25 mcg/actuation (umeclidinium-vilanterol) 1 inh PO DAILY NS apixaban (Eliquis) 5 mg PO BID atorvastatin 80 mg PO BEDTIME 90 days blood pressure kit-extra large As directed blood pressure monitor As directed doxazosin 8 mg PO BEDTIME 90 days duloxetine 60 mg PO DAILY finasteride 5 mg PO DAILY 90 days furosemide (Lasix) 40 mg PO DAILY methimazole 5 mg PO DAILY oxybutynin chloride ER 10 mg PO DAILY 90 days pregabalin 150 mg PO TID 30 days ropinirole 2 mg PO TID spironolactone TAKE 1 TABLET BY MOUTH DAILY Do you need a note to return to daycare/school/sports/work: No HPI AWV-4 month f/u HPI Details Pt is here for an AWV. Denies fever, chills, and dizziness. [place] of care in scan pile. PPP will be scanned in chart and copy will be given to pt. [facility] Medical History History of cardioversion Hereditary lymphedema Venous insufficiency Morbid obesity Lymphedema COPD (chronic obstructive pulmonary disease) Sensory neuropathy COVID-19 Respiratory failure with hypoxia Restrictive lung disease COPD (chronic obstructive pulmonary disease) JEFFRY on CPAP MATUTE (dyspnea on exertion) Chronic cystitis Bladder outlet obstruction Restless leg syndrome Traumatic complete tear of right rotator cuff Injury of right rotator cuff History of diverticulitis History of umbilical hernia Surgical History Hx of colonoscopy History of appendectomy History of arthroscopy of left knee Family History Father Arthritis Diabetes Mother Arthritis Kidney stones Family/Other Arthritis Sister No problems noted. Sister No problems noted. Son No problems noted. Social History Household Members: Spouse Household Members Other:: Floridalma Housing: Condominium Do you presently have visiting nurse or other home services: No Alcohol intake: current Alcohol intake frequency: 0-2 drinks per day Alcohol type: beer Comment: refusing bed alarm Patient Tobacco Use Status: Former Tobacco user Quit Date: 2011 Tobacco use type: Cigarette Cigarette Packs Per Day: 1 Cigarettes Per Day: 20.0 Years Smoked: 30 years e-Cigarette/Vaping Use: Never Used Second Hand Smoke Exposure: No Substance Use Type: Marijuana Advance Directives Date on File: 05/16/20 service: No Current occupational status: retired 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 -[employer] Cognitive needs: No Hearing needs: No Vision needs: No Questionnaire Medicare Wellness Checkup [age] What gender do you identify with?: male During the past 4 weeks, how much have you been bothered by emotional problems such as feeling anxious, depressed, irritable, sad or downhearted, and blue?: slightly During the past 4 weeks, has your physical & emotional health limited your social activities with family, friends, neighbors, or groups?: slightly During the past 4 weeks, how much bodily pain have you generally had?: moderate pain (pt is seeing rheumatology/orthopedics) During the past 4 weeks, was someone available to help you if you needed & wanted help?: yes, quite a bit During the past 4 weeks, what was the hardest physical activity you could do for at least 2 minutes?: moderate Can you get to places out of walking distance without help? (For eg., can you travel alone on buses, taxis or drive your car?): Yes Can you go shopping for groceries or clothes without someone's help?: No (shops with ) Can you prepare your own meals?: Yes Can you do your housework without help?: No (goes get some assistance) Because of any health problems, do you need the help of another person with your personal care needs such as eating, bathing, dressing or getting around the house?: No Can you handle your own money without help?: Yes During the past 4 weeks, how would you rate your health in general?: good During the past 4 weeks how have things been going for you?: good & bad parts about equal Are you having difficulties driving your car?: no Do you always fasten your seat belt when you are in a car?: yes, usually During past 4 weeks, have you been bothered by the following: never: Trouble eating well?, Teeth or denture problems? and Problems using the telephone?, seldom: Falling or dizzy when standing up, sometimes: Sexual problems? and always: Tiredness or fatigue? Have you fallen 2 or more times in the past year?: No Are you afraid of falling?: No Are you a smoker?: no During the past 4 weeks, how many drinks of wine, beer, or other alcoholic beverages did you have?: 6-9 drinks per week Do you exercise for about 20 minutes 3 or more times a week?: yes, most of the time Have you been given information to help with the following?: yes: Hazards in your house that might hurt you? and yes: Keeping track of your medications? How often do you have trouble taking medicines the way you have been told to take them?: I always take medicine as prescribed How confident are you that you can control & manage most of your health problems?: not very confident What is your race?: White Mini Mental State Exam (MMSE) Orientation What is the (year) (season) (date) (day) (month)?: year (2022) Where are we (state) (county) (town or city) (hospital) (floor[place] ([place] Registration Name of 3 unrelated objects clearly and slowly, then ask patient to repeat all 3 of them. (1st repeat determines score. Make sure they can repeat all three): object 1, object 2 and object 3 Attention & Calculation (CHOOSE ONE) Spell WORLD backwards (DLROW): 5 letters Recall Ask patient to repeat the 3 items from question #3.: object 1, object 2 and object 3 Language Show patient a wristwatch & ask what it is. Repeat for pencil.: watch and pencil Ask the patient to repeat the phrase 'No ifs, ands, or buts' after you.: correct Ask the patient to 'take a piece of paper with their right hand' 'fold paper in half' 'place paper on floor': take paper in right hand, fold paper in half and place paper on floor Print the sentence 'CLOSE YOUR EYES' on a piece. If patient actually closes eyes then score.: followed written direction Give patient a blank piece of paper & ask to write a sentence. Score if it contains a noun & verb.: sentence contains subject and verb Ask patient to copy figure of intersecting pentagons exactly. Score if all 10 angles & 2 intersects are included.: all 10 angles present & 2 are intersected Score Score: 22 Activity of Daily Living Bathing - sponge bath, tub bath or shower: receives no assistance (gets in/out by self, if usual bathing means Dressing - getting clothes from closets & drawers, including inner/outer garments & fasteners.: gets clothes & gets completely dressed without help Toileting - going to the 'toilet room' for urine/bowel elimination & cleaning self/arranging clothes: goes to toilet room, cleans self, arranges clothes without help Transfer: moves in & out of bed and chair without help (may use support object) Continence: controls urination/bowel movements completely by self Feeding: feeds self without help Total Score: 0 Information obtained from: patient Using telephone: independent Traveling: independent Shopping: independent Preparing meals: independent Housework: independent Taking medicine: independent Managing money: independent Review of Systems Const Reports as per HPI Physical Exam Vital Signs: Last Vital Signs Pulse 78 02/05/23 11:14 BP 132/82 02/05/23 11:14 Pulse Ox 97 02/05/23 11:14 Oxygen Delivery Method Room Air 02/05/23 11:14 BMI result Body Mass Index 54.4 Const Other: uses a cane General: cooperative Nutritional Appearance: obese morbidly obese Orientation/consciousness: patient oriented x3 Neuro Other: - romberg, cannot tandem walk , can walk and turn, can rise from sitting to standing, passed whisper test General: patient oriented x3 Psych Appearance: grossly normal Mental Status: mental status grossly normal Speech and movement: Normal speech and movement present Affect: normal affect Attitude: cooperative Thought process: Normal thought process present Thought content: Normal thought content present Insight: Good insight present (Psych) Judgement: Good judgement present (Psych) Assessment & Plan Assessment & Plan (1) Encounter for annual wellness visit (AWV) in Medicare patient: Code(s): Z00.00 - Encounter for general adult medical examination without abnormal findings Plan The patient agreed to the use of a biomedical manager for this encounter. Scribed for BRENDEN Goldstein by Temitope Navarro biomedical manager, on 02/05/2023 at 11:20 EST. Coding Level of Care Code Medicare First (G0438) Diagnoses Encounter for annual wellness visit (AWV) in Medicare patient Z00.00
[2023-02-05 11:14] VITALS: BP 132/82; PULSE 78; O2SAT 97; BMI 54.4
== END 2023-02-05 12:24 | disposition home or self-care (01) ==
PROVIDERS: Visit Provider Nurse Practitioner Family
DX: Z00.00 Encounter for general adult medical examination without abnormal findings (principal)
CPT/HCPCS: G0438

== ENCOUNTER 2023-02-05 12:25 | Outpatient (REF) | payer MEDICARE, SELFPAY ==
[2023-02-05 16:33] LABS: Appearance Urine Clear; Color Urine Yellow; Glucose Urine UA Negative (Negative); Leukocyte Esterase Urine Negative (Negative); Nitrite Urine Negative (Negative); PH 5.5 (5.0-9.0); Specific Gravity - Urine 1.015 (1.005-1.025); Urine Blood Negative (Negative); Urine Ketones Negative (Negative); Urine Protein Negative (Neg-Trace)
[2023-02-05 17:42] LABS: Alanine Aminotransferase 22 U/L (0-40); Albumin Level 3.9 g/dL (3.5-5.0); Alkaline Phosphatase 100 U/L (39-117); Anion Gap 13 (12-20); Aspartate Amino Transferase 22 U/L (5-37); Bilirubin Total 0.9 mg/dL (0.0-1.0); Blood Urea Nitrogen 17 mg/dL (9-16); Calcium 9.2 mg/dL (8.4-10.2); Carbon Dioxide 23 mmol/L (22-29); Chloride 105 mmol/L (96-108); Estimated Glomerular Filt Rate > 60; Glucose Random 93 mg/dL (60-115); Potassium 4.2 mmol/L (3.3-5.1); Sodium 137 mmol/L (135-145); Total Protein 7.6 g/dL (6.5-8.0)
== END 2023-02-05 12:26 | disposition home or self-care (01) ==
LOC: HO.HMGCLDS 12:25
PROVIDERS: Absent Provider Nurse Practitioner Family; PCP Nurse Practitioner Family; Visit Provider Nurse Practitioner Family
DX: I48.91 Unspecified atrial fibrillation (principal); I50.9 Heart failure, unspecified; R06.02 Shortness of breath; R31.29 Other microscopic hematuria; R39.89 Other symptoms and signs involving the genitourinary system; Z79.899 Other long term (current) drug therapy
CPT/HCPCS: 36415; 80053; 81003; 83880; 84443

== ENCOUNTER 2023-02-14 10:01 | Outpatient (RCR) | payer MEDICARE, SELFPAY | END 2023-02-14 11:44 | disposition home or self-care (01) | LOC: HO.PR 10:01 | PROVIDERS: PCP Nurse Practitioner Family; Visit Provider Internal Medicine | DX: R06.02 Shortness of breath (principal); U07.1 COVID-19; J12.82 Pneumonia due to coronavirus disease 2019 ==

== ENCOUNTER 2023-03-20 10:33 | Outpatient (REF) | payer MEDICARE, SELFPAY ==
[2023-03-20 13:08] LABS: MANUAL DIFF FLAG NO
[2023-03-20 13:25] LABS: Basophils Absolute Auto 0.1 X10*3/uL (0.0-0.2); Basophils Percent Auto 0.9 % (0-2); Eosinophils Absolute Auto 0.1 X10*3/uL (0.0-0.4); Eosinophils Percent Auto 1.9 % (0-4); Hematocrit 45.7 % (42.0-52.0); Hemoglobin 15.2 g/dl (14.0-18.0); Imm Gran Abs Auto 0.02 X10*3/uL (0.00-0.03); Imm Gran Pct Auto 0.3 % (0.0-0.4); Lymphocytes Absolute Auto 1.6 X10*3/uL (1.2-4.9); Lymphocytes Percent Auto 22.7 % (20-40); Mean Corpuscular HGB Conc 33.3 g/dl (31.0-36.0); Mean Corpuscular Hemoglobin 34.1 pg (27.0-33.0); Mean Corpuscular Volume 102.5 fL (80.0-98.0); Mean Platelet Volume 10.6 fL (9.4-12.4); Monocytes Absolute Auto 0.5 X10*3/uL (0.1-1.2); Monocytes Percent Auto 7.3 % (2-11); Neutrophils Absolute Auto 4.7 x10*3/uL (2.0-8.3); Neutrophils Percent Auto 66.9 % (45-73); Platelet Count 250 X10*3/uL (160-400); Red Blood Count 4.46 X10*6/uL (4.60-5.80); Red Cell Distribution Width 12.9 % (11.0-16.0)
[2023-03-20 13:55] LABS: Alanine Aminotransferase 23 U/L (0-40); Albumin Level 3.8 g/dL (3.5-5.0); Alkaline Phosphatase 100 U/L (39-117); Aspartate Amino Transferase 22 U/L (5-37); Bilirubin Direct 0.5 mg/dL (0.0-0.5); Total Protein 7.4 g/dL (6.5-8.0)
[2023-03-20 14:01] LABS: Thyroid Stimulating Hormone 2.33 uIU/mL (0.32-4.0)
[2023-03-21 15:59] LABS: Triiodothyronine T3 Free 2.8 pg/mL (2.3-4.2)
== END 2023-03-20 10:34 | disposition home or self-care (01) ==
LOC: HO.HMGCLDS 10:33
PROVIDERS: PCP Nurse Practitioner Family; Visit Provider Internal Medicine Endocrinology, Diabetes & Metabolism
DX: R79.89 Other specified abnormal findings of blood chemistry (principal)
CPT/HCPCS: 36415; 80076; 84439; 84443; 84481; 85025

== ENCOUNTER 2023-03-31 11:28 | Outpatient (AMB) | payer MEDICARE, SELFPAY ==
[2023-03-31 12:12] VITALS: BP 120/70; PULSE 95; TEMP 36.2; O2SAT 96; BMI 54.0
--- NOTE | 2023-03-31 12:12 | MHC.OFFWIV ---
Intake Vital Signs 03/31/23 12:12 Height 6 ft 4 in Weight 444 lb BMI 54.0 BP 120/70 Blood Pressure Location Lt brachial Position Sitting Pulse 95 Pulse Source Pulse Oximeter Temp 97.2 F Temp Source Temporal Artery Scan Pulse Oximetry (%) 96 Oxygen Delivery Method Room Air Intake Visit Reasons: EP lump in Lft breast lobby CO2 tank/walker Intake Note: pt is here today for lump in lft breast. Patient Tobacco Use Status: Former Tobacco user Quit Date: 2011 Allergies No Known Allergies [No Known Allergies*] Allergy (Verified 03/31/23 12:39) Do you need a note to return to daycare/school/sports/work: No HPI EP lump in Lft breast lobby CO2 tank/walker HPI Details 68-year-old male presents to the office for a sick visit. Patient is complaining of pain in the left breast for the past 10 days.no discharge from the nipple. No fevers or chills. No history of trauma, human or animal bite. [facility] Medical History History of cardioversion Hereditary lymphedema Venous insufficiency Morbid obesity Lymphedema COPD (chronic obstructive pulmonary disease) Sensory neuropathy COVID-19 Respiratory failure with hypoxia Restrictive lung disease COPD (chronic obstructive pulmonary disease) JEFFRY on CPAP MATUTE (dyspnea on exertion) Chronic cystitis Bladder outlet obstruction Restless leg syndrome Traumatic complete tear of right rotator cuff Injury of right rotator cuff History of diverticulitis History of umbilical hernia Surgical History Hx of colonoscopy History of appendectomy History of arthroscopy of left knee Family History Father Arthritis Diabetes Mother Arthritis Kidney stones Family/Other Arthritis Sister No problems noted. Sister No problems noted. Son No problems noted. Social History Household Members: Spouse Household Members Other:: Floridalma Housing: Condominium Do you presently have visiting nurse or other home services: No Alcohol intake: current Alcohol intake frequency: 0-2 drinks per day Alcohol type: beer Comment: refusing bed alarm Patient Tobacco Use Status: Former Tobacco user Quit Date: 2011 Tobacco use type: Cigarette Cigarette Packs Per Day: 1 Cigarettes Per Day: 20.0 Years Smoked: 30 years e-Cigarette/Vaping Use: Never Used Second Hand Smoke Exposure: No Substance Use Type: Marijuana Advance Directives Date on File: 05/16/20 service: No Current occupational status: retired 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 Left breast: Tender area behind the nipple. No lump palpable. Assessment & Plan Assessment & Plan (1) Mastitis in male: Code(s): N61.0 - Mastitis without abscess Plan: Antibiotic called in. Patient was advised to get a mammogram and an ultrasound of the left breast. His PCP will be informed of the same. Orders: Orders US breast LT complete Today N61.0 - Mastitis without abscess MM diagnostic mammo unilat LT Today N61.0 - Mastitis without abscess Coding Level of Care Code Est Pt Level 4 (32241) Diagnoses Mastitis in male N61.0
== END 2023-03-31 12:50 | disposition home or self-care (01) ==
PROVIDERS: PCP Nurse Practitioner Family; Visit Provider Internal Medicine
DX: N61.0 Mastitis without abscess (principal)
CPT/HCPCS: 99214

== ENCOUNTER 2023-04-18 09:38 | Outpatient (AMB) | payer MEDICARE, SELFPAY ==
--- NOTE | 2023-04-18 09:42 | MHC.OFFVIS ---
Intake Vital Signs 04/18/23 09:43 Height 6 ft 4 in Weight 440 lb BMI 53.6 BP 160/72 H Blood Pressure Location Lt brachial Position Sitting Pulse 81 Intake Visit Reasons: Shortness of breath Allergies No Known Allergies [No Known Allergies*] Allergy (Verified 04/18/23 11:21) Medication List - Last Reconciled 04/18/23 by CARMITA Lee albuterol sulfate 90 mcg/actuation 2 puffs PO Q6H PRN amiodarone 200 mg PO DAILY Anoro Ellipta 62.5-25 mcg/actuation (umeclidinium-vilanterol) 1 inh PO DAILY NS apixaban (Eliquis) 5 mg PO BID atorvastatin 80 mg PO BEDTIME 90 days blood pressure kit-extra large As directed blood pressure monitor As directed doxazosin 8 mg PO BEDTIME 90 days duloxetine 60 mg PO DAILY finasteride 5 mg PO DAILY 90 days furosemide (Lasix) 40 mg PO DAILY methimazole 5 mg PO DAILY oxybutynin chloride ER 10 mg PO DAILY 90 days pregabalin 150 mg PO TID 90 days ropinirole 2 mg PO TID spironolactone TAKE 1 TABLET BY MOUTH DAILY HPI Shortness of breath HPI Details Dinh is a 67-year-old male with past medical history of morbid obesity, obstructive sleep apnea with CPAP use, COPD on home O2, who was admitted to [facility] September 2022 with increased shortness of breath and found to have new diagnosis of atrial fibrillation. He was treated with heart rate control and started on anticoagulation. Initially had some hematuria which has since resolved. He did undergo an unsuccessful cardioversion on 11/29/2022 and was started on amiodarone. Once fully loaded he underwent a repeat cardioversion on 01/07/2023 with successful conversion to sinus rhythm. Yesterday he called the office with reports of increasing shortness of breath and requested to be seen. Today he reports that he has been noticing increasing shortness of breath. He is very short of breath with walking only short distances, room to room in his house. Has been undergoing physical therapy for his knee discomfort. When he has appointments he hold his diuretic then when he goes home he only takes half a pill. He tells me he has had several appointments recently. He has home oxygen and wears it during the night with his CPAP and during the day when walking. When he is sitting and resting he does not need the oxygen supplement. He has an intermittent cough. He sleeps in a recliner which is his norm. He tells me his leg edema is more than his usual. He has Velcro wraps on his legs at this appointment. He has not been having any chest discomfort, heart palpitations, lightheadedness, presyncope, syncope. At physical therapy yesterday he got very short of breath and the therapist checked his pulse rate and it was 130. With rest his heart rate came down to 80s. No bleeding issues reported. Taking meds as directed with the exception of the diuretic with the hope which he holds as above. [facility] Medical History History of cardioversion Hereditary lymphedema Venous insufficiency Morbid obesity Lymphedema COPD (chronic obstructive pulmonary disease) Sensory neuropathy COVID-19 Respiratory failure with hypoxia Restrictive lung disease COPD (chronic obstructive pulmonary disease) JEFFRY on CPAP MATUTE (dyspnea on exertion) Chronic cystitis Bladder outlet obstruction Restless leg syndrome Traumatic complete tear of right rotator cuff Injury of right rotator cuff History of diverticulitis History of umbilical hernia Surgical History Hx of colonoscopy History of appendectomy History of arthroscopy of left knee Family History Father Arthritis Diabetes Mother Arthritis Kidney stones Family/Other Arthritis Sister No problems noted. Sister No problems noted. Son No problems noted. Social History Household Members: Spouse Household Members Other:: Floridalma Housing: Condominium Do you presently have visiting nurse or other home services: No Alcohol intake: current Alcohol intake frequency: 0-2 drinks per day Alcohol type: beer Comment: refusing bed alarm Patient Tobacco Use Status: Former Tobacco user Quit Date: 2011 Tobacco use type: Cigarette Cigarette Packs Per Day: 1 Cigarettes Per Day: 20.0 Years Smoked: 30 years e-Cigarette/Vaping Use: Never Used Second Hand Smoke Exposure: No Substance Use Type: Marijuana Advance Directives Date on File: 05/16/20 service: No Current occupational status: retired 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 [employer] Cognitive needs: No Hearing needs: No Vision needs: No Review of Systems Const All systems reviewed & are unremarkable except as noted in HPI and below ENT Denies dizziness Card Denies chest pain, Denies chest pain at rest, Denies chest pain with activity, Denies rapid heart rate, Denies pedal edema, Denies edema, Reports leg edema, Denies lightheadedness, Denies palpitations, Reports dyspnea, Reports dyspnea on exertion and Reports orthopnea Resp Denies cough, Reports dyspnea and Reports dyspnea on exertion GI Denies hematochezia and Denies change in stool character Musc Reports abnormal gait, Reports limited range of motion, Reports muscle cramps, Denies muscle weakness, Denies numbness, Denies radiating pain into limb, Denies stiffness and Denies tingling Neuro Reports abnormal gait, Denies dizziness, Denies numbness and Denies tingling Endo Denies palpitations Physical Exam Vital Signs: Last Vital Signs Pulse 81 04/18/23 09:43 BP 160/72 H 04/18/23 09:43 BMI result Body Mass Index 53.6 Const Other: morbidly obese. Wearing O2 supplement with walking. Sob when walking in hallway General: cooperative, comfortable and no acute distress Orientation/consciousness: patient oriented x3 Neck Neck: Yes normal visual inspection and Yes no JVD Resp Effort & Inspection: normal respiratory effort Auscultation: clear to auscultation bilaterally, no crackles, no rales, no rhonchi and no wheezes Cardio Jugular venous distension: no JVD Rate: regular rate Rhythm: regular rhythm Heart sounds: S1 normal heart sound present, S2 normal heart sound present, no murmurs and no rubs Neuro General: patient oriented x3 Extrem Other: Velcro wraps on legs Psych Appearance: grossly normal Mental Status: mental status grossly normal Speech and movement: Normal speech and movement present Office Procedures EKG Details: Today, read by me, normal sinus rhythm, first-degree AV block, right bundle branch block, rate 81, QTC 483 millisecond [id number], Complete Assessment & Plan Assessment & Plan (1) Shortness of breath: Code(s): R06.02 - Shortness of breath Plan: Patient reports increased shortness of breath in recent weeks, worse yesterday when at physical therapy. Very short of breath walking short distances even between rooms in his home. He has not had an increase in his oxygen requirement. He reports intermittent cough and increase in leg edema. Weight today seems similar to prior. He tells me he has had frequent appointments recently as he is in physical therapy for his right knee. When he has appointments he hold his diuretic then when he gets home he takes only half a pill. He is supposed to be on Lasix 40 mg daily. He is super morbidly obese and clinical assessment for heart failure is challenging. I do not hear rales on exam. He has Velcro wraps on each lower extremity. He does have a known history of COPD and follows with Dr. Andujar for pulmonology. Wear CPAP at night and reports compliance. He has supplemental oxygen that he wears during the night and during physical activity. His shortness of breath most likely is fluid retention, mild heart failure, that has occurred with holding his diuretic doses. Instructed to have him increase his diuretic to 60 mg daily for the next 3 days and then message me with an update on 04/22/2023. If breathing has improved some then diuretic dose will be adjusted accordingly. He does have a follow-up visit with air pollution analyst on 04/21. Signs and symptoms of heart failure reviewed with him. Low-salt diet and fluid restriction discussed. Use of daily diuretic as ordered encouraged. Cardiology office visit in 2 months, sooner if needed (2) A-fib: Code(s): I48.91 - Unspecified atrial fibrillation Qualifiers: Atrial fibrillation type: persistent (not longstanding) Qualified Code(s): I48.19 - Other persistent atrial fibrillation Plan: Newer finding of atrial fibrillation when [place] [facility] [place] for shortness of breath. He was treated with heart rate control and Eliquis for anticoagulation. He continued to have persistent AFib. Echocardiogram 10/10/2022 showed EF 40-50%, no valve abnormalities. Holter monitor done 10/10/2022 for 3 days shows atrial fib, rate 86, PVCs 1.3% of time. He underwent a cardioversion on 11/29/2022 which once unsuccessful. He was started on an amiodarone load then underwent a repeat cardioversion on 09/06/2022 with successful conversion to sinus rhythm. He has had no known recurrent atrial fibrillation since that time. An EKG done today is showing sinus rhythm with a right bundle branch block, rate 81. Will have him continue with amiodarone at present since his rhythm is sinus. Labs done on 02/05/2023 showed normal LFTs, TSH 2.0. If his shortness of breath is still worsening then will consider chest x-ray/CT scan to evaluate for amiodarone toxicity. Going forward will need to consider alternate antiarrhythmic therapy versus referral to EP for possible ablation. (3) Morbid obesity: Code(s): E66.01 - Morbid (severe) obesity due to excess calories Plan: Weight loss would be beneficial for his overall health. He is aware of this and states he is trying. (4) JEFFRY on CPAP: Comment: KNOWN TO HAVE OBSTRUCTIVE SLEEP APNEA. USES CPAP REGULARLY AND HAS BEEN VERY COMPLIANT AND BENEFITTING. CURRENTLY USING OXYGEN 2 L/MT ALONG WITH CPAP AT NIGHTTIME. Code(s): G47.33 - Obstructive sleep apnea (adult) (pediatric); Z99.89 - Dependence on other enabling machines and devices Plan: Compliant with his CPAP each night (5) Congestive heart failure: Comment: continue all meds as prescribed, INCLUDING LASIX Code(s): I50.9 - Heart failure, unspecified Qualifiers: Heart failure type: combined systolic and diastolic Plan: As above (6) On amiodarone therapy: Code(s): Z79.899 - Other longterm (current) drug therapy Plan: As above Plan Time spent on chart review, documentation, interview and assessment Coding Level of Care Code Est Pt Level 4 (09472) Diagnoses Shortness of breath R06.02 Persistent atrial fibrillation I48.19 Atrial fibrillation type: persistent (not longstanding) Morbid obesity E66.01 JEFFRY on CPAP G47.33; Z99.89 Congestive heart failure I50.9 Heart failure type: combined systolic and diastolic On amiodarone therapy Z79.899 CPT Codes EKG - CPT: 02843-[id number], Complete ([id number]) Time Spent (min) 28
[2023-04-18 09:43] VITALS: BP 160/72; PULSE 81; BMI 53.6
== END 2023-04-18 10:51 | disposition home or self-care (01) ==
PROVIDERS: PCP Nurse Practitioner Family; Visit Provider Nurse Practitioner Family
DX: R06.02 Shortness of breath (principal); I48.19 Other persistent atrial fibrillation; E66.01 Morbid (severe) obesity due to excess calories; G47.33 Obstructive sleep apnea (adult) (pediatric); Z99.89 Dependence on other enabling machines and devices; I50.9 Heart failure, unspecified; Z79.899 Other long term (current) drug therapy
CPT/HCPCS: 93010; 99214

== ENCOUNTER → 2023-04-18 09:38 | Outpatient (BNVA) | payer MEDICARE, SELFPAY | PROVIDERS: PCP Nurse Practitioner Family; Visit Provider Nurse Practitioner Family | DX: M17.11 Unilateral primary osteoarthritis, right knee (principal); I50.9 Heart failure, unspecified; I48.19 Other persistent atrial fibrillation; R06.02 Shortness of breath; G47.33 Obstructive sleep apnea (adult) (pediatric); E66.01 Morbid (severe) obesity due to excess calories; Z99.89 Dependence on other enabling machines and devices; Z79.899 Other long term (current) drug therapy | CPT/HCPCS: 20610; 93005; 99212; J1040 ==

== ENCOUNTER 2023-04-18 10:53 | Outpatient (AMB) | payer MEDICARE, SELFPAY ==
--- NOTE | 2023-04-18 11:08 | A.OFFVIS_ITS ---
Intake Intake Visit Reasons: ov- right knee pain Intake Note: Dinh a 68 year old male presents today for a follow up of right knee pain, last injection 10/15/2022. Patient reports pain has been present for over a year, however the past week his knee has been frequently giving out. He attends PT for his back and his knee gave out yesterday during his visit. He has constant pain that wakes him up at night and gets worse with walking. Finds elevation of leg does not help. He found little relief with last injection, found possibly a week while he was admitted in the hospital but once he returned home his pain came back. He uses a walking stick to ambulate. Allergies No Known Allergies [No Known Allergies*] Allergy (Verified 04/23/23 10:22) HPI ov- right knee pain HPI Details 68-year-old male who returns to the [facility] today for a follow-up of right knee pain. He reports his pain has been present for over an year however his knee has been frequently giving out for the past week. He attends physical therapy for his back and he states his knee gave out during the visit yesterday. He currently states he has constant pain in his knee which wakes him up at night and gets worse with walking. He also c/o popping and clicking in his knee. He finds no relief with leg elevation. He had his last injection on 10/15/22 which provided him mild relief for about a week. He uses a cane to ambulate. He does not have a history of diabetes. [facility] Medical History (Updated 04/26/23 @ 22:33 by Angella Villalta PA-C) Osteoarthritis of right knee Melanoma History of cardioversion Hereditary lymphedema Venous insufficiency Morbid obesity Lymphedema COPD (chronic obstructive pulmonary disease) Sensory neuropathy COVID-19 Respiratory failure with hypoxia Restrictive lung disease COPD (chronic obstructive pulmonary disease) JEFFRY on CPAP MATUTE (dyspnea on exertion) Chronic cystitis Bladder outlet obstruction Restless leg syndrome Traumatic complete tear of right rotator cuff Injury of right rotator cuff History of diverticulitis History of umbilical hernia Surgical History Hx of colonoscopy History of appendectomy History of arthroscopy of left knee Family History Father Arthritis Diabetes Mother Arthritis Kidney stones Family/Other Arthritis Sister No problems noted. Sister No problems noted. Son No problems noted. Social History Household Members: Spouse Household Members Other:: Floridalma Housing: Condominium Do you presently have visiting nurse or other home services: No Alcohol intake: current Alcohol intake frequency: 0-2 drinks per day Alcohol type: beer Comment: refusing bed alarm Patient Tobacco Use Status: Former Tobacco user Quit Date: 2011 Tobacco use type: Cigarette Cigarette Packs Per Day: 1 Cigarettes Per Day: 20.0 Years Smoked: 30 years e-Cigarette/Vaping Use: Never Used Second Hand Smoke Exposure: No Substance Use Type: Marijuana Advance Directives Date on File: 05/16/20 service: No Current occupational status: retired 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 [employer] Cognitive needs: No Hearing needs: No Vision needs: No Review of Systems Const All systems reviewed & are unremarkable except as noted in HPI and below Physical Exam Vital Signs: Last Vital Signs Temp 96.8 F 10/15/22 07:30 Pulse 70 10/15/22 07:30 Resp 18 10/15/22 07:30 BP 139/66 10/15/22 07:30 Pulse Ox 97 10/15/22 07:30 O2 Del Method Nasal Cannula 10/15/22 07:30 O2 Flow Rate 2 10/15/22 07:30 Oxygen Flow Rate 3 10/13/22 11:00 BMI result Body Mass Index 51.1 Const General: cooperative, healthy appearing and no acute distress HEENT Head: Yes normal to inspection Extrem Other: Right knee: Skin intact, no erythema or joint effusion. Tenderness along the medial and lateral joint line. Full ROM with crepitus. Negative Minal?s. No ligamentous laxity. NVI. Office Procedures Joint Injection/Drain Joint Injection/Drain Primary Site: right knee Prep: site was prepped using aseptic technique, ethochloride spray was applied and injection warnings given Injected: 80 mg of, DepoMedrol, with 8 mL of, 1% plain lidocaine and in the joint Approach Used: anterolateral Procedure: The patient tolerated the procedure well and there was some relief wi th the local anesthesia Coding 43139 - Glenohumeral/Tronchanteric Bursa/Intraarticular Procedure code (CPT) selection complete Assessment & Plan Assessment & Plan (1) Osteoarthritis of right knee: Code(s): M17.11 - Unilateral primary osteoarthritis, right knee Qualifiers: Osteoarthritis type: primary Qualified Code(s): M17.11 - Unilateral primary osteoarthritis, right knee Plan We discussed options today which include steroid injection. We will also obtain authorization for gel injections. They did consent to move forward with the right knee injection, which was tolerated well. I recommended rest, ice and elevation and OTC anti-inflammatories PRN for discomfort. If symptoms persist or worsens over the next 6-8 weeks, patient will contact the office, otherwise follow-up as needed. Patient Instructions: Scribed for Angella Villalta PA-C, by Cl Helton medical assistant dermatology, on 04/18/2023 at 11:30 AM FRANK. Angella Grant PA-C, have personally reviewed and agree with the information entered by the scribe. Coding Level of Care Code Est Pt Level 3 (35821) Diagnoses Primary osteoarthritis of right knee M17.11 Osteoarthritis type: primary CPT Codes Coding - Joint 7: 54031 - Glenohumeral/Tronchanteric Bursa/Intraarticular ([id number])
== END 2023-04-18 11:45 | disposition home or self-care (01) ==
PROVIDERS: PCP Nurse Practitioner Family; Visit Provider Physician Assistant
DX: M17.11 Unilateral primary osteoarthritis, right knee (principal)
CPT/HCPCS: 20610; 99213

== ENCOUNTER 2023-04-22 10:18 | Outpatient (AMB) | payer MEDICARE, SELFPAY ==
[2023-04-22 10:27] VITALS: BP 142/82; PULSE 93; RESP 20; O2SAT 95; BMI 53.6
--- NOTE | 2023-04-22 10:27 | A.OFFVIS_ITS ---
Intake Vital Signs 04/22/23 10:27 Height 6 ft 4 in Weight 440 lb BMI 53.6 BP 142/82 H Blood Pressure Location Lt brachial Position Sitting Respiration 20 Pulse 93 Pulse Source Pulse Oximeter Pulse Oximetry (%) 95 Oxygen Delivery Method Room Air Intake Visit Reasons: Obstructive sleep apnea Allergies No Known Allergies [No Known Allergies*] Allergy (Verified 04/22/23 10:47) Medication List - Last Reconciled 04/22/23 by Savanna Andujar MD albuterol sulfate 90 mcg/actuation 2 puffs PO Q6H PRN amiodarone 200 mg PO DAILY Anoro Ellipta 62.5-25 mcg/actuation (umeclidinium-vilanterol) 1 inh PO DAILY NS apixaban (Eliquis) 5 mg PO BID atorvastatin 80 mg PO BEDTIME 90 days blood pressure kit-extra large As directed blood pressure monitor As directed doxazosin 8 mg PO BEDTIME 90 days duloxetine 60 mg PO DAILY finasteride 5 mg PO DAILY 90 days furosemide (Lasix) 40 mg PO DAILY methimazole 5 mg PO DAILY oxybutynin chloride ER 10 mg PO DAILY 90 days pregabalin 150 mg PO TID 90 days ropinirole 2 mg PO TID spironolactone TAKE 1 TABLET BY MOUTH DAILY Do you need a note to return to daycare/school/sports/work: No HPI Obstructive sleep apnea HPI Details Dinh is 68 years old very pleasant gentleman who is here for 3 months follow-up. The only new symptom he has is mild cough at night and in the morning hours. He has had no respiratory infection. Since about 2 weeks ago his diuretic dose has been increased to 60 mg a day he has diuresed some and cough is getting less. He continues to use Anoro Ellipta once a day and uses ProAir about once or twice a day. He has morbid obesity for long time, has chronic lymphedema of the legs., and is edema due to congestive heart failure. He has obstructive sleep apnea with nocturnal hypoxemia which is treated with use of CPAP and oxygen 2 L/minute at night. He sleeps really good, and loves his CPAP. [facility] Medical History History of cardioversion Hereditary lymphedema Venous insufficiency Morbid obesity Lymphedema COPD (chronic obstructive pulmonary disease) Sensory neuropathy COVID-19 Respiratory failure with hypoxia Restrictive lung disease COPD (chronic obstructive pulmonary disease) JEFFRY on CPAP MATUTE (dyspnea on exertion) Chronic cystitis Bladder outlet obstruction Restless leg syndrome Traumatic complete tear of right rotator cuff Injury of right rotator cuff History of diverticulitis History of umbilical hernia Surgical History Hx of colonoscopy History of appendectomy History of arthroscopy of left knee Family History Father Arthritis Diabetes Mother Arthritis Kidney stones Family/Other Arthritis Sister No problems noted. Sister No problems noted. Son No problems noted. Social History Household Members: Spouse Household Members Other:: Floridalma Housing: Condominium Do you presently have visiting nurse or other home services: No Alcohol intake: current Alcohol intake frequency: 0-2 drinks per day Alcohol type: beer Comment: refusing bed alarm Patient Tobacco Use Status: Former Tobacco user Quit Date: 2011 Tobacco use type: Cigarette Cigarette Packs Per Day: 1 Cigarettes Per Day: 20.0 Years Smoked: 30 years e-Cigarette/Vaping Use: Never Used Second Hand Smoke Exposure: No Substance Use Type: Marijuana Advance Directives Date on File: 05/16/20 service: No Current occupational status: retired 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[employer] Cognitive needs: No Hearing needs: No Vision needs: No Review of Systems Const All systems reviewed & are unremarkable except as noted in HPI and below Eyes Reports no additional complaints ENT Reports no additional complaints Card Denies chest pain, Denies irregular heart rhythm and Denies leg edema Resp Reports as per HPI GI Reports no additional complaints Reports no additional complaints Musc Reports back pain Skin/Breast Reports system reviewed and no additional complaints, except as documented Neuro Reports no additional complaints Psych Reports no additional complaints Physical Exam Vital Signs: Last Vital Signs Pulse 93 04/22/23 10:27 Resp 20 04/22/23 10:27 BP 142/82 H 04/22/23 10:27 Pulse Ox 95 04/22/23 10:27 Oxygen Delivery Method Room Air 04/22/23 10:27 BMI result Body Mass Index 53.6 Const Other: wearing oxygen General: cooperative, healthy appearing, comfortable and no acute distress Orientation/consciousness: patient oriented x3 HEENT Head: Yes normal to inspection General nose exam: No nasal polyps present and No nasal discharge present Face and sinus: Yes sinuses nontender Mouth: oropharynx normal Throat: Yes posterior oropharynx normal Eyes General: appearance normal, both eyes and all related structures Neck Neck: Yes normal visual inspection, Yes no lymphadenopathy, Yes trachea midline and Yes no JVD Thyroid: Thyroid normal Chest Chest palpation & inspection: normal inspection of the chest, normal palpation of entire chest wall and no tenderness Resp Other: Percussion note not perceptible because of thick chest wall. Breath sounds are distant and especially decreased over the basilar areas. No wheezes or crepitations are heard. Effort & Inspection: normal respiratory effort and able to speak in complete sentences Auscultation: clear to auscultation bilaterally Cardio Palpation: PMI not normal (Not palpable) Rate: regular rate Rhythm: abnormal rhythm and other (Atrial fib) Heart sounds: no gallops and no murmurs GI Palpation (GI): Soft to palpation, nontender, No hepatosplenomegaly present, no masses and Other GI palpation findings present (Grossly obese and protuberant) Auscultation: normal bowel sounds Back/Spine/Pelvis Cervical Spine: normal cervical lordosis and cervical ROM normal Thoracic/Lumbar Spine: thoracic and lumbar spine normal to inspection, thoraco- lumbar ROM normal and paraspinal muscle tenderness (left trapezius/rhomboid tenderness and tautness of musculature to palpation) Skin General skin exam: no rashes or lesions noted Neuro General: patient oriented x3 and Normal light touch and pain sensation Cranial nerves: Yes CN's II-XII intact bilaterally Extrem General: Yes edema (Has chronic stasis edema /lymphedema both legs which is currently increased) and Yes venous stasis dermatitis Psych Appearance: grossly normal Mental Status: mental status grossly normal Speech and movement: Normal speech and movement present Assessment & Plan Assessment & Plan (1) Morbid obesity: Comment: Patient remains morbidly obese. Stable in the last 1 year. Difficult for him to lose weight. Hopefully with better control of his congestive heart failure and peripheral edema, he will have some weight reduction again. Code(s): E66.01 - Morbid (severe) obesity due to excess calories Plan: Continue the present medical regimen (2) COPD (chronic obstructive pulmonary disease): Comment: COPD/reactive airways, well controlled and stable. Code(s): J44.9 - Chronic obstructive pulmonary disease, unspecified Plan: [place]: Continue Anoro Ellipta 1 inhalation daily. ALBUTEROL HFA 2 puffs Q 4-6 hours only p.r.n. (3) Restrictive lung disease: Comment: RESTRICTION IS MAINLY BECAUSE OF HIS MORBID OBESITY. HE IS DOING BREATHING EXERCISES WITH INCENTIVE SPIROMETER., HE HAS BEEN IN PULMONARY REHAB PROGRAM, CURRENTLY CURRENTLY ON HOLD DUE TO HIS CARDIAC ISSUES. Code(s): J98.4 - Other disorders of lung Plan: Stressed that he should do deep breathing exercises at least 3 times a day (4) JEFFRY on CPAP: Comment: KNOWN TO HAVE OBSTRUCTIVE SLEEP APNEA. USES CPAP REGULARLY AND HAS BEEN VERY COMPLIANT AND BENEFITTING. CURRENTLY USING OXYGEN 2 L/MT ALONG WITH CPAP AT NIGHTTIME. Code(s): G47.33 - Obstructive sleep apnea (adult) (pediatric); Z99.89 - Dependence on other enabling machines and devices Plan: Advised to continue using CPAP every night (5) Respiratory failure with hypoxia: Comment: NOCTURNAL HYPOXEMIA REQUIRES O2, 2-3 L/MINUTE AT NIGHT ALONG WITH CPAP . USES PORTABLE OXYGEN at 2-3 L/mt. AND STATIONARY CONCENTRATOR ONLY P.R.N.. Code(s): J96.91 - Respiratory failure, unspecified with hypoxia Plan: Continue to use O2 2 L/minute along with CPAP every night. And use O2 2 L/minute p.r.n. during the daytime. Coding Level of Care Code Est Pt Level 4 (30343) Diagnoses Morbid obesity E66.01 COPD (chronic obstructive pulmonary disease) J44.9 Restrictive lung disease J98.4 JEFFRY on CPAP G47.33; Z99.89 Respiratory failure with hypoxia J96.91
== END 2023-04-22 10:49 | disposition home or self-care (01) ==
PROVIDERS: PCP Nurse Practitioner Family; Visit Provider Internal Medicine
DX: E66.01 Morbid (severe) obesity due to excess calories (principal); J44.9 Chronic obstructive pulmonary disease, unspecified; J98.4 Other disorders of lung; G47.33 Obstructive sleep apnea (adult) (pediatric); Z99.89 Dependence on other enabling machines and devices; J96.91 Respiratory failure, unspecified with hypoxia
CPT/HCPCS: 99214

== ENCOUNTER → 2023-04-22 10:18 | Outpatient (BNVA) | payer MEDICARE, SELFPAY | PROVIDERS: PCP Nurse Practitioner Family; Visit Provider Internal Medicine | DX: G47.33 Obstructive sleep apnea (adult) (pediatric) (principal); J44.9 Chronic obstructive pulmonary disease, unspecified; J98.4 Other disorders of lung; J96.91 Respiratory failure, unspecified with hypoxia; E66.01 Morbid (severe) obesity due to excess calories; Z99.89 Dependence on other enabling machines and devices; Z68.43 Body mass index [BMI] 50.0-59.9, adult | CPT/HCPCS: 99212 ==

== ENCOUNTER 2023-04-23 09:53 | Outpatient (AMB) | payer MEDICARE, SELFPAY ==
[2023-04-23 10:09] VITALS: BP 118/72; PULSE 80; O2SAT 95
--- NOTE | 2023-04-23 10:09 | A.OFFVIS_ITS ---
Intake Vital Signs 3 04/23/23 10:09 Height 6 ft 4 in BMI Reason not done Patient refused/unable BP 118/72 Blood Pressure Location Lt radial Position Sitting Pulse 80 Pulse Source Pulse Oximeter Pulse Oximetry (%) 95 Comment states weight is 440lbs. Intake Visit Reasons: hand OA Intake Note: Patient last seen 01/16/23 presents today for follow up. Hard time gripping objects; lots of pain different places. Reports he found lump in breast that is very tender to touch. Has mammogram scheduled next week Would like to continue doing PT. Received knee cortisone injection last week with Ortho. Dermatologist And Dermatopathologist Required: No Accompanied by: Self / Same As Patient Allergies No Known Allergies [No Known Allergies*] Allergy (Verified 04/23/23 10:22) Medication List - Last Reconciled 04/23/23 by Kristi Acosta MD albuterol sulfate 90 mcg/actuation 2 puffs PO Q6H PRN amiodarone 200 mg PO DAILY Anoro Ellipta 62.5-25 mcg/actuation (umeclidinium-vilanterol) 1 inh PO DAILY NS apixaban (Eliquis) 5 mg PO BID atorvastatin 80 mg PO BEDTIME 90 days blood pressure kit-extra large As directed blood pressure monitor As directed doxazosin 8 mg PO BEDTIME 90 days duloxetine 60 mg PO DAILY finasteride 5 mg PO DAILY 90 days furosemide (Lasix) 40 mg PO DAILY methimazole 5 mg PO DAILY oxybutynin chloride ER 10 mg PO DAILY 90 days pregabalin 150 mg PO TID 90 days ropinirole 2 mg PO TID spironolactone TAKE 1 TABLET BY MOUTH DAILY HPI HPI Comments 2 History of Present Illness0 Details 67-year-old male with generalized osteoa rthritis returns for follow-up. He states that injections done last visit were not helpful. He continues to have bilateral hand pain, swelling and stiffness. 20 mg of prednisone had provided 50% relief. It was recently evaluated by Orthopedics and states that the current plan is right knee replacement Initial history: This is a 67-year-old male presents for evaluation of multiple joint pain. Patient states that he has diffuse pain everywhere. Including neck, shoulders, hands, knees, ankles and feet. States that he had left knee replacement 10 years ago. He has severe right knee osteoarthritis and receives periodic steroid injections which helped for 1 or 2 months. States that he has severe bilateral hand stiffness. It lasts all day. Associated with swelling. He can hardly make a fist. States that he used to take naproxen which was quite helpful for all his joint pain but he is no longer able to take it due to being on Eliquis for AFib Of note patient has restrictive lung disease and is on home oxygen. He also has a CPAP machine for sleep apnea [facility] Medical History (Updated 04/23/23 @ 15:23 by Kristi Acosta MD) Melanoma History of cardioversion Hereditary lymphedema Venous insufficiency Morbid obesity Lymphedema COPD (chronic obstructive pulmonary disease) Sensory neuropathy COVID-19 Respiratory failure with hypoxia Restrictive lung disease COPD (chronic obstructive pulmonary disease) JEFFRY on CPAP MATUTE (dyspnea on exertion) Chronic cystitis Bladder outlet obstruction Restless leg syndrome Traumatic complete tear of right rotator cuff Injury of right rotator cuff History of diverticulitis History of umbilical hernia Surgical History Hx of colonoscopy History of appendectomy History of arthroscopy of left knee Family History Father Arthritis Diabetes Mother Arthritis Kidney stones Family/Other Arthritis Sister No problems noted. Sister No problems noted. Son No problems noted. Social History Household Members: Spouse Household Members Other:: Floridalma [facility] Do you presently have visiting nurse or other home services: No Alcohol intake: current Alcohol intake frequency: 0-2 drinks per day Alcohol type: beer Comment: refusing bed alarm Patient Tobacco Use Status: Former Tobacco user Quit Date: 2011 Tobacco use type: Cigarette Cigarette Packs Per Day: 1 Cigarettes Per Day: 20.0 Years Smoked: 30 years e-Cigarette/Vaping Use: Never Used Second Hand Smoke Exposure: No Substance Use Type: Marijuana Advance Directives Date on File: 05/16/20 service: No Current occupational status: retired 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 [employer] Cognitive needs: No Hearing needs: No Vision needs: No Review of Systems Musc Reports arthralgias, Reports joint swelling and Reports stiffness Physical Exam Vital Signs: Last Vital Signs Pulse 80 04/23/23 10:09 BP 118/72 04/23/23 10:09 Pulse Ox 95 04/23/23 10:09 Const General: cooperative, healthy appearing and comfortable Nutritional Appearance: obese morbidly obese Orientation/consciousness: patient oriented x3 Limitations: no limitations HEENT Head: Yes normocephalic and Yes atraumatic Mouth: moist mucous membranes Resp Effort & Inspection: normal respiratory effort and able to speak in complete sentences Skin Other: Erythema of both ankles likely due to venous stasis Neuro General: patient oriented x3 Extrem Other: Bilateral wrist tenderness to palpation and pain with flexion and extension Multiple swollen and tender MCPs bilaterally Multiple swollen and tender PIP is bilaterally No DIP tenderness bilaterally Assessment & Plan Assessment & Plan (1) Seronegative rheumatoid arthritis: Code(s): M06.00 - Rheumatoid arthritis without rheumatoid factor, unspecified site Plan: This is a 68-year-old male with generalized osteoarthritis who presents for evaluation of bilateral hand pain swelling and stiffness. Patient has multiple swollen and tender joints on exam. Including wrists, MCPs, PIPs, no DIP swelling or tenderness. Symptoms improving with prednisone. Clinical picture consistent with inflammatory arthritis. He has seronegative rheumatoid arthritis. Will need to start DMARDs. Given patient's multiple comorbidities and multiple medication interactions multiple DMARDs would be contraindicated Can not get methotrexate and leflunomide as patient is morbidly obese, has restrictive lung disease as well as COPD on home oxygen and his risk of respiratory compromise if he develops methotrexate/leflunomide induced pneumonitis is quite high. He is also on amiodarone and there is risk of added hepatotoxicity given that patient is on amiodarone Hydroxychloroquine is relative contraindicated as patient has AFib on amiodarone and there is risk of QTC prolongation and worsening of arrhythmias Sulfasalazine can also cause hepatotoxicity when added to amiodarone TNF inhibitors such as adalimumab, etanercept and others would be contraindicated due to his history of heart failure Discussed risks and benefits of Orencia. Patient agreed to proceed. 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 Specifically including risk of infection. Advised patient to call the clinic if he develops any signs of fever or infection. Orencia to be held until infection resolves. He also mentions history of melanoma. Discussed risks of increased malignancy while on Orencia. He follows up yearly with Dermatology. Plan I spent 30 minutes reviewing patient's chart, evaluating patient, ordering diagnostic workup, counseling patient and documenting in the chart Orders: Orders 2 Complete Blood Count Auto Diff 2 Months M06.9 - Rheumatoid arthritis, unspecified Comprehensive Met. Panel 2 Months M06.9 - Rheumatoid arthritis, unspecified C Reactive Protein 2 Months M06.9 - Rheumatoid arthritis, unspecified Erythrocyte Sedimentation Rate 2 Months M06.9 - Rheumatoid arthritis, unspecified Hepatitis C Viral Load 2 Months B19.20 - Unspecified viral hepatitis C without hepatic coma Medications: New 2 prednisone Take 4 tabs daily for 2 weeks, 3 tabs daily for 2 weeks then remain on 2 tabs daily 158 tabs 0RF Coding Level of Care Code Est Pt Level 4 (50055) Diagnoses Seronegative rheumatoid arthritis M06.00 High risk medication use Z79.899
== END 2023-04-23 11:09 | disposition home or self-care (01) ==
PROVIDERS: PCP Nurse Practitioner Family; Visit Provider Student in an Organized Health Care Education/Training Program
DX: M06.00 Rheumatoid arthritis without rheumatoid factor, unspecified site (principal); Z79.899 Other long term (current) drug therapy
CPT/HCPCS: 99214

== ENCOUNTER → 2023-04-23 09:53 | Outpatient (BNVA) | payer MEDICARE, SELFPAY | PROVIDERS: PCP Nurse Practitioner Family; Visit Provider Student in an Organized Health Care Education/Training Program | DX: M06.00 Rheumatoid arthritis without rheumatoid factor, unspecified site (principal); Z79.899 Other long term (current) drug therapy | CPT/HCPCS: 99212 ==

== ENCOUNTER 2023-04-30 12:24 | Outpatient (AMB) | payer MEDICARE, SELFPAY ==
[2023-04-30 13:09] VITALS: BMI 53.6
--- NOTE | 2023-04-30 13:09 | A.OFFVIS_ITS ---
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 Left worse than right .States his pain is mainly on his finger joints. States he has swelling and is limited with ROM. Patient has tried and failed injections and anti inflammatories. No recent injury. States he also has numbness and tingling which happens occasionally. Hx of O.A and R.A. 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 He complains of pain, swelling, and stiffness in his bilateral hands. Most of this is localized to his knuckles. 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 Acosta for this. He found some relief from PO Prednisone but continues to have pain. He says the Prednisone makes him feel jittery He used to find very good relief from naproxen, but he has Afib and is on Eliquis, and can no longer take Naproxen. He says he performs daily stretching exercises for his whole body due to pain & stiffness. He reports occasional numbness in his fingers, but this is intermittent and a few times a month. He does say he has bad neuropathy in his feet. He has lymphedema and restrictive lung disease following COVID in 2020. He is on supplemental home oxygen. He says there was a period of time where he did not walk for 6 months, but he now uses a cane and is receiving multiple joint injections to manage his OA. He says he was able to walk to his mailbox the other day, which made him happy. [facility] Medical History (Updated 04/30/23 @ 13:58 by Filemon Christopher) Osteoarthritis of right knee Melanoma History of cardioversion Hereditary lymphedema Venous insufficiency Morbid obesity Lymphedema COPD (chronic obstructive pulmonary disease) Sensory neuropathy COVID-19 Respiratory failure with hypoxia Restrictive lung disease COPD (chronic obstructive pulmonary disease) JEFFRY on CPAP MATUTE (dyspnea on exertion) Chronic cystitis Bladder outlet obstruction Restless leg syndrome Traumatic complete tear of right rotator cuff Injury of right rotator cuff History of diverticulitis History of umbilical hernia Surgical History Hx of colonoscopy History of appendectomy History of arthroscopy of left knee Family History Father Arthritis Diabetes Mother Arthritis Kidney stones Family/Other Arthritis Sister No problems noted. Sister No problems noted. Son No problems noted. Social History (Updated 04/30/23 @ 13:20 by LUZ Gomez) Household Members: Spouse Household Members Other:: Floridalma Housing: Condominium Do you presently have visiting nurse or other home services: No Alcohol intake: current Alcohol intake frequency: 0-2 drinks per day Alcohol type: beer Comment: refusing bed alarm Patient Tobacco Use Status: Former Tobacco user Quit Date: 2011 Tobacco use type: Cigarette Cigarette Packs Per Day: 1 Cigarettes Per Day: 20.0 Years Smoked: 30 years e-Cigarette/Vaping Use: Never Used Second Hand Smoke Exposure: No Substance Use Type: Marijuana Advance Directives Date on File: 05/16/20 service: No Current occupational status: retired 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 Cognitive needs: No Hearing needs: No Vision needs: No Review of Systems Const All systems reviewed & are unremarkable except as noted in HPI and below Physical Exam Vital Signs: BMI result Body Mass Index 53.6 Const General: cooperative, healthy appearing and no acute distress Orientation/consciousness: patient oriented x3 HEENT Head: Yes normocephalic and Yes atraumatic Eyes EOM: EOMs intact bilaterally Resp Effort & Inspection: normal respiratory effort and able to speak in complete sentences Cardio Jugular venous distension: no JVD Skin General skin exam: turgor normal Rashes: no rashes Neuro General: patient oriented x3 Extrem Other: Evaluation of Bilateral Upper Extremity: The patient is alert, oriented, and in no acute distress He is 6 ft 4 and 440 lb. Neuro: Median, Ulnar, Radial nerves motor and sensory intact and sensation is normal to the tips of all digits Vascular: Cap refill brisk ROM: With encouragement I was able to get him to bring all of his fingers close to a fist. Did find it painful, particularly along the dorsal aspect of the MCPs and then extending dorsally on the hand to the wrist. This was most consistent with extrinsic tightness. I then had him actively bring all of his fingers into extension. We worked on range of motion exercises for more than 15 minutes. The patient appreciated that after working on range of motion exercises he was able to bring his fingers close to a fist and into extension easier and with less pain. Similarly I had him work on wrist range of motion exercises. He did complain of an achy pain over the MCP joints. He does have arthritic changes in the MCP joints. However, after working on the range of motion exerc ises complains of less pain. Skin: No lacerations or abrasions. General: No Ecchymosis. No Erythema or evidence of infection. Radiographs: 3 views of the left hand from 12/19/22 were reviewed by me today in clinic. They show Basal joint arthritis, as well as index, middle, and ring finger MCP joint arthritis. Psych Appearance: grossly normal Affect: normal affect Attitude: cooperative Office Procedures Fracture Care Details: No fracture, greater than 15 minutes of manual therapy today in clinic [address]32 Fracture Billing Code: Fracture Billing Code Assessment & Plan Assessment & Plan (1) Osteoarthritis of hands, bilateral: Code(s): M19.041 - Primary osteoarthritis, right hand; M19.042 - Primary osteoarthritis, left hand Qualifiers: Osteoarthritis type: primary Qualified Code(s): M19.041 - Primary osteoarthritis, right hand; M19.042 - Primary osteoarthritis, left hand (2) Seronegative rheumatoid arthritis: Code(s): M06.00 - Rheumatoid arthritis without rheumatoid factor, unspecified site (3) Polyarthralgia: Code(s): M25.50 - Pain in unspecified joint (4) Stiffness of joints of both hands: Code(s): M25.641 - Stiffness of right hand, not elsewhere classified; M25.642 - Stiffness of left hand, not elsewhere classified Plan Assessment & Plan: 1. Bilateral hand OA In multiple joints, more specifically the basal joint as well as the index middle and ring finger MCP joints. 2. Bilateral hand pain More of this pain I believe is related to stiffness and disuse. I educated him about this condition We worked on range of motion exercises for more than 15 minutes today in clinic. After the exercises the patient appreciated that he had better range of motion and less pain. He will work on these lfhgu-jr-vleien exercises daily, and about 20 times a day. I discussed activity modification He will limit or avoid any heavy or repetitive activities which cause him pain I also encouraged him to consider gadget use to assist in daily activities, such as opening jars He attends PT in [place] and will ask at his next appointment if they have an OT hand therapist there I ordered OT hand therapy, he may attend at [place] if they have a specialist No operative treatments or injections are indicated at this time. He knows to contact me if you would like to be seen again, and was grateful for the information. He will follow up prn Scribed for Mary Alice aHgen MD by Filemon Christopher, medical asst, on [ ] at [ ], EST. Coding Level of Care Code New Pt Level 3 (83906) Diagnoses Primary osteoarthritis of both hands M19.041; M19.042 Osteoarthritis type: primary Seronegative rheumatoid arthritis M06.00 Polyarthralgia M25.50 Stiffness of joints of both hands M25.641; M25.642 CPT Codes Fracture Care - Fracture Billing Code: Fracture Billing Code ([id number])
== END 2023-04-30 14:03 | disposition home or self-care (01) ==
PROVIDERS: PCP Nurse Practitioner Family; Visit Provider Orthopaedic Surgery
DX: M19.041 Primary osteoarthritis, right hand (principal); M19.042 Primary osteoarthritis, left hand; M06.00 Rheumatoid arthritis without rheumatoid factor, unspecified site; M25.50 Pain in unspecified joint; M25.641 Stiffness of right hand, not elsewhere classified; M25.642 Stiffness of left hand, not elsewhere classified
CPT/HCPCS: 97140; 99213

== ENCOUNTER → 2023-04-30 12:24 | Outpatient (BNVA) | payer MEDICARE, SELFPAY | PROVIDERS: PCP Nurse Practitioner Family; Visit Provider Orthopaedic Surgery | DX: M19.041 Primary osteoarthritis, right hand (principal); M19.042 Primary osteoarthritis, left hand; M06.00 Rheumatoid arthritis without rheumatoid factor, unspecified site; M25.641 Stiffness of right hand, not elsewhere classified; M25.642 Stiffness of left hand, not elsewhere classified | CPT/HCPCS: 97140; 99212 ==

== ENCOUNTER 2023-05-01 11:00 | Outpatient (RCR) | payer MEDICARE, SELFPAY ==
--- NOTE | 2023-02-26 13:08 | MHC.PT.EP ---
[facility] [place] [facility] [place] [facility] [place] [facility] [address] Paul Long [address] [phone] F: [phone] F: [phone] F: [phone] F: [phone] Physical Therapy Plan of Care Date of Evaluation: 02/26/23 Date of Surgery: Diagnosis: This is a 68 yo male presenting to skilled PT with a script for low back pain. Assessment: This is a 68 yo male presenting to skilled PT with a script for low back pain. Patient reporting ongoing general body pains for a long time now. This patient has a long medical history since getting COVID back in 2020. Multiple major medical impairments included now needing O2 and has RLD, losing teeth, lymphedema, joint impairments, impaired tissue healing (amongst others) and then more recently developed AFIB. Before acquiring AFIB he was at pulmonary rehab however he plateaued with them due to increasing back and B leg pain (he was told he needed to go to PT to manage this prior to coming back to pulmonary rehab). Once stopping pulmonary rehab, multiple cardioversions and managing AFIB, he became very sedentary, gained over 100 lbs and started to have an increase in back and leg pain. He also reports that he needs a R knee replacement but this will not be done until his AFIB is under control and he loses weight. He now reports that his pain starts across the low back, it radiates into this thighs and lower legs (it is described as all types of pain). In terms of pain management has been using a peddler for 10 mins a day, forward stretching and this has been helpful. Assessment reveals pain that ranges from up to a 10/10 at the worst. Patient demos decreased lumbar and BLE ROM, strength of B LE's and core/back, TTP at lumbar muscles and impaired posture with forward head and rounded shoulders, forward flexed trunk and impaired balance/gait deviations. Based on functional limitations, impaired QOL and pain tolerance patient is a good candidate for skilled PT 2x/wk for 4wks. Frequency and Duration: The patient will be seen 2x/wk for 4wks Short Term Goals: Pt will demonstrate improved postural awareness and understanding of core engagement with seated and standing tasks without cues throughout session to improve overall back safety in 2 weeks. Pt will demonstrate centralization of sx in 2 weeks. Pt will continue to reinforce precautions, sitting, standing and ADL modifications with proper body mechanics in 2 wks. Industrial Engineer Goals: Pt will demonstrate improved outcome measure by 5 points in 4 weeks for improved functional mobility. Pt will demonstrate ability to bend and lift WNL min to no pain for household tasks in 4 wks. Pt will be I in HEP and compliant in 4wks Return to pulmonary rehab when medically ready Treatment Plan: Modalities to reduce pain, spasms and effusion. Manual therapy to restore motion and function. Therapeutic exercise to improve strength and flexibility. Neuromuscular re-education for posture and balance. Therapeutic activities to return to functional activities of daily living. Electronically signed by: Carmen Barry PT Please sign and return to therapist. Thank you for your referral.
--- NOTE | 2023-05-01 12:29 | MHC.PT.DC ---
[facility] [place] [facility] [place] [facility] [place] Office [address] Paul Long [address] [phone] F: [phone] F: [phone] F: [phone] F: [phone] Physical Therapy Discharge Report Diagnosis: This is a 68 yo male presenting to skilled PT with a script for low back pain. Date of Surgery: Date of Evaluation: 02/26/23 Date of Discharge: 05/01/23 Treatments to Date: 12 Cancellations to Date: 0 No Shows to Date: 0 Discharge Status: Achieved Goals Improved Function Independent with HEP Discharge Summary: 04/30: Patient is doing well, he has no more pain, improved ROM and improved function. He has an HEP to continue on his own. He will be starting OT next week so we will stop PT at this time as skilled PT is no longer indicated. He did express interest on LE strengthening once OT is over and I just educated him to ask PCP for a new script for LB strengthening. DC to HEP. Electronically signed by: Carmen Barry PT Please sign and return to therapist. Thank you for your referral.
== END 2023-05-01 12:29 | disposition home or self-care (01) ==
LOC: HO.PTCHIC 11:00
PROVIDERS: PCP Nurse Practitioner Family; Visit Provider Nurse Practitioner Family
DX: M54.50 Low back pain, unspecified (principal); G89.29 Other chronic pain
CPT/HCPCS: 97110; 97140; 97162

== ENCOUNTER 2023-05-01 14:51 | Outpatient (REF) | payer MEDICARE, SELFPAY ==
--- NOTE | ~2023-05-01 | US_ITS ---
EXAMINATION: MM DIAGNOSTIC DIGITAL BREAST TOMOSYNTHESIS, BILATERAL US BREAST LIMITED, LEFT MAMMOGRAPHY: CLINICAL INFORMATION: 68-year-old male complaining of palpable abnormality left breast 4-5 o'clock axis just lateral to the nipple, with associated retroareolar pain. Rule out mastitis. Patient has history of breast cancer in mother, unknown age. COMPARISON: Mammography: No prior. TECHNIQUE: Digital breast tomosynthesis is performed in both the craniocaudal and mediolateral oblique views along with computer-aided detection (CAD). Synthesized 2D images are generated from the tomosynthesis. FINDINGS: The breasts are almost entirely fatty (ACR BI-RADS breast composition Category a). Within the left breast retroareolar region there is fairly classic development of breast tissue in a flame shape, consistent with mild benign male gynecomastia. There is otherwise no definite mass, skin thickening, nipple thickening, suspicious calcification, or area of architectural distortion in the left breast. There is no evidence of mastitis within the left breast. There is a 4 mm nodule in the 3:00 axis, middle depth, left breast, consistent with a benign intramammary lymph node. There are no suspicious findings in the right breast or evidence of right-sided gynecomastia. ULTRASOUND: CLINICAL INFORMATION: As above. COMPARISON: No prior. TECHNIQUE: Targeted sonographic evaluation was performed using a high frequency linear transducer. Attention was given to the retroareolar left breast region as well as the lateral upper periareolar palpable abnormality. Selected archived documentation. FINDINGS: LEFT BREAST: -There is development of a mild to moderate degree of normal breast tissue in the retroareolar region, consistent with benign gynecomastia. There is no evidence of suspicious mass, cystic abnormality, abnormal shadowing, skin thickening, or edema within the soft tissue planes. There is no ultrasonographic abnormality in the region of palpable abnormality lateral and superior to the nipple as marked by the technologist. US/US breast LT limited mamm only IMPRESSION: Mild to moderate benign left male gynecomastia. No findings suspicious for malignancy in either breast. No correlate to the focus of palpable concern left breast upper outer periareolar region. No evidence of mastitis. Recommend clinical management. OVERALL ASSESSMENT: Mammography: BI-RADS 2 - Benign Findings Ultrasound: BI-RADS 2 - Benign Findings RECOMMENDATION: 1. Patient should be managed based on the clinical impression.
== END 2023-05-01 14:52 | disposition home or self-care (01) ==
LOC: HO.MAMMO 14:51
PROVIDERS: PCP Nurse Practitioner Family; Visit Provider Internal Medicine
DX: N61.0 Mastitis without abscess (principal); Z80.3 Family history of malignant neoplasm of breast
CPT/HCPCS: 76642; 77062; 77066

== ENCOUNTER → 2023-05-01 15:30 | Outpatient (BNV) | payer MEDICARE, SELFPAY | PROVIDERS: PCP Nurse Practitioner Family; Visit Provider Radiology Diagnostic Radiology | DX: N63.23 Unspecified lump in the left breast, lower outer quadrant (principal) | CPT/HCPCS: 76642; 77066; G0279 ==

== ENCOUNTER 2023-05-13 09:20 | Outpatient (AMB) | payer MEDICARE, SELFPAY ==
[2023-05-13 09:32] VITALS: BP 126/72; PULSE 90; O2SAT 95
--- NOTE | 2023-05-13 09:32 | MHC.PC.OV ---
Vital Signs 05/13/23 09:32 Height 6 ft 4 in BMI Reason not done Patient refused/unable BP 126/72 Blood Pressure Location Lt brachial Position Sitting Pulse 90 Pulse Source Pulse Oximeter Pulse Oximetry (%) 95 Oxygen Delivery Method Room Air Intake Visit Reasons: 3 Month F/U Intake Note: pt is here for 3 month follow up Rn Maternal Child Required: No Accompanied by: Self / Same As Patient Allergies No Known Allergies [No Known Allergies*] Allergy (Verified 05/13/23 10:14) Medication List - Last Reconciled 05/13/23 by Diego Augustine, MEDICAL PARASITOLOGIST- albuterol sulfate 90 mcg/actuation 2 puffs PO Q6H PRN amiodarone 200 mg PO DAILY Anoro Ellipta 62.5-25 mcg/actuation (umeclidinium-vilanterol) 1 inh PO DAILY NS apixaban (Eliquis) 5 mg PO BID atorvastatin 80 mg PO BEDTIME 90 days doxazosin 8 mg PO BEDTIME duloxetine 60 mg PO DAILY finasteride 5 mg PO DAILY 90 days furosemide (Lasix) 40 mg PO DAILY methimazole 5 mg PO DAILY Orencia ClickJect (abatacept) 125 mg subcut QWEEK NS oxybutynin chloride ER 10 mg PO DAILY 90 days pregabalin 150 mg PO TID 90 days ropinirole 2 mg PO TID spironolactone TAKE 1 TABLET BY MOUTH DAILY walker daily use (rolling sitting walker) Tobacco use date assessed: 05/13/23 Fall risk assessment: No Falls in past year Last assessed Fall Risk: 05/13/23 Dental Screening Dental Screen Date: 05/13/23 Did you have a dental visit in the last 12 months?: Yes Did you have a dental problem in the last 6 months where you did not have access to dental care?: No Was dental information given to patient?: Patient has dentist HPI 3 Month F/U HPI Details Pt reports ongoing weakness of his lower extremities. He also has a hx of seronegative rheumatoid arthritis. Will refer to PT. Pt is following up with rheumatology. Denies fever, chills, and dizziness. Due for PSA, will order. Denies dribbling with urination, weak stream, and frequent nocturia. Pt reports that he is unable to lose weight. Pt's weight is affecting his joints. Will send wegovy. He also follow up with ortho. I will also prescribe a rolling walker, to assist with ambulation (cane is not helping at this point). [facility] Medical History (Updated 05/13/23 @ 10:10 by BRENDEN Pickett) Osteoarthritis of right knee Melanoma History of cardioversion Hereditary lymphedema Venous insufficiency Morbid obesity Lymphedema COPD (chronic obstructive pulmonary disease) Sensory neuropathy COVID-19 Respiratory failure with hypoxia Restrictive lung disease COPD (chronic obstructive pulmonary disease) JEFFRY on CPAP MATUTE (dyspnea on exertion) Chronic cystitis Bladder outlet obstruction Restless leg syndrome Traumatic complete tear of right rotator cuff Injury of right rotator cuff History of diverticulitis History of umbilical hernia Surgical History Hx of colonoscopy History of appendectomy History of arthroscopy of left knee Family History Father Arthritis Diabetes Mother Arthritis Kidney stones Family/Other Arthritis Sister No problems noted. Sister No problems noted. Son No problems noted. Social History Household Members: Spouse Household Members Other:: Floridalma Housing: Condominium Do you presently have visiting nurse or other home services: No Alcohol intake: current Alcohol intake frequency: 0-2 drinks per day Alcohol type: beer Comment: refusing bed alarm Patient Tobacco Use Status: Former Tobacco user Quit Date: 2011 Tobacco use type: Cigarette Cigarette Packs Per Day: 1 Cigarettes Per Day: 20.0 Years Smoked: 30 years e-Cigarette/Vaping Use: Never Used Second Hand Smoke Exposure: No Substance Use Type: Marijuana Advance Directives Date on File: 05/16/20 service: No Current occupational status: retired 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 1. Little interest or pleasure in doing things: not at all 2. Feeling down, depressed, or hopeless: not at all 3. Trouble falling or staying asleep, or sleeping too much: not at all 4. Feeling tired or having little energy: not at all 5. Poor appetite or overeating: several days 6. Feeling bad about yourself - or that you are a failure or have let yourself or your family down: not at all 7. Trouble concentrating on things, such as reading the newspaper or watching television: not at all 8. Moving or speaking so slowly that other people could have noticed. Or the opposite - being so fidgety or restless that you have been moving around a lot more than usual: not at all 9. Thoughts that you would be better off or of hurting yourself in some way: not at all Total score: 1 Depression Screening Interpretation: Negative Depression Screening Done: Yes 23382 - PHQ-9 Billing: Yes Source: Developed by Drs. Marc Victoria, Karen Nguyen, Tristan Dominguez and colleagues, with an educational juan from [employer]. Thrive Questionnaire Date Thrive assessed: 05/13/23 I am a: Patient What is your living situation today?: I have a steady place to live Within the past 12 months, did the food you bought not last and you didn't have the money to get more?: Never true Within the past 12 months, did you worry whether your food would run out before you got money to buy more?: Never true Do you have trouble paying for medicines?: No Do you have trouble getting transportation to medical appointments?: No Do you have trouble paying your heating and electricity bill?: No Do you have trouble taking care of your child, family member or friend?: No Do you have trouble with day-to-day activities such as bathing, preparing meals, shopping, managing finances, etc.?: No Are you currently unemployed and looking for a job?: No Are you interested in more education?: No Please select the resources that you would like help with: None Currently or been in a relationship where the following occur: no concerns reported THRIVE Score: 0 AUDIT C Alcohol Use Questionnaire (AUDIT-C) 1. How often do you have a drink containing alcohol?: 4 or more times a week 2. How many drinks containing alcohol do you have on a typical day when you are drinking?: 1 or 2 3. How often do you have six or more drinks on one occasion?: Never Total Score: 4 Score Reviewed/Action Taken: Yes KIRA-7 AMB Questionnaire KIRA-7 Date KIRA - 7 assessed: 05/13/23 Feeling nervous, anxious, or on edge: 1 = Several days Not being able to stop or control worryin = Not at all Worrying too much about different things: 1 = Several days Trouble relaxin = Several days Being so restless that it is hard to sit still: 1 = Several days Becoming easily annoyed or irritable: 0 = Not at all Feeling afraid as if something awful might happen: 0 = Not at all Total KIRA-7 score (0-4 normal; 5-9 mild; 10-14 moderate; 15-21 severe): 4 Source: Developed by Drs. Marc Victoria, Karen Nguyen, Tristan Dominguez and colleagues, with an educational juan from [employer]. KIRA-7 Assessment Billing KIRA-7 Assessment Tool: KIRA-7 Assessment 12184 Review of Systems Const Reports as per HPI Physical exam (Primary Care) Vital Signs: Last Vital Signs Pulse 90 05/13/23 09:32 BP 126/72 05/13/23 09:32 Pulse Ox 95 05/13/23 09:32 Oxygen Delivery Method Room Air 05/13/23 09:32 Tobacco/Smoking Status: Tobacco use Status Tobacco use date assessed 05/13/23 05/13/23 09:35 Patient Tobacco Use Status Former Tobacco user 05/13/23 09:35 Tobacco use type Cigarette 05/13/23 09:35 e-Cigarette/Vaping Use Never Used 05/13/23 09:35 PHQ-9: PHQ-9 Score PHQ-9: Total score 1 05/13/23 10:00 Depression Screening Interpretation: Negative Thrive Assessment: Date of Thrive Assessment Date Thrive assessed 05/13/23 05/13/23 09:41 Currently or been in a relationship where the following occur: no concerns reported Const General: cooperative Nutritional Appearance: obese morbidly obese Orientation/consciousness: patient oriented x3 Resp Effort & Inspection: normal respiratory effort Auscultation: diminished lung sounds Cardio Rate: regular rate Rhythm: regular rhythm Heart sounds: S1 normal heart sound present and S2 normal heart sound present Neuro General: patient oriented x3 Extrem Other: edema to BLE Psych Appearance: grossly normal Mental Status: mental status grossly normal Speech and movement: Normal speech and movement present Affect: normal affect Attitude: cooperative Thought process: Normal thought process present Thought content: Normal thought content present Insight: Good insight present (Psych) Judgement: Good judgement present (Psych) Assessment and Plan Assessment & Plan (1) Weakness of both lower limbs: Code(s): R29.898 - Other symptoms and signs involving the musculoskeletal system Plan: Referred to PT, rolling walker prescribed, wegovy prescribed, pt following up with ortho and rheumatology (2) Seronegative rheumatoid arthritis: Code(s): M06.00 - Rheumatoid arthritis without rheumatoid factor, unspecified site Plan: Referred to PT (3) Screening PSA (prostate specific antigen): Code(s): Z12.5 - Encounter for screening for malignant neoplasm of prostate Plan The patient agreed to the use of a medical record specialist for this encounter. Scribed for BRENDEN Goldstein by Temitope Navarro medical record specialist, on 05/13/2023 at 10:00 EST. Orders: Orders TSH reflex Free T4 Today M06.00 - Rheumatoid arthritis without rheumatoid factor, unspecified site, R29.898 - Other symptoms and signs involving the musculoskeletal system Lipid Panel Today M06.00 - Rheumatoid arthritis without rheumatoid factor, unspecified site, R29.898 - Other symptoms and signs involving the musculoskeletal system PT Evaluation and Treatment Today M06.00 - Rheumatoid arthritis without rheumatoid factor, unspecified site, R29.898 - Other symptoms and signs involving the musculoskeletal system Complete Blood Count Auto Diff Today M06.00 - Rheumatoid arthritis without rheumatoid factor, unspecified site, R29.898 - Other symptoms and signs involving the musculoskeletal system Comprehensive [place]. Panel Fast Today M06.00 - Rheumatoid arthritis without rheumatoid factor, unspecified site, R29.898 - Other symptoms and signs involving the musculoskeletal system UA CC w/rflx Micro + Cult Today M06.00 - Rheumatoid arthritis without rheumatoid factor, unspecified site, R29.898 - Other symptoms and signs involving the musculoskeletal system Prostate Specific Antigen Scr Today Z12.5 - Encounter for screening for malignant neoplasm of prostate Medications: New walker daily use (rolling sitting walker) 1 ea 0RF weakness to BLE semaglutide (weight loss) (Wegovy) administer weeks 1 through 4 of therapy 0.25 mg (0.5 mL) subcut QWEEK 30 days 2.5 mL 0RF Coding Level of Care Code Est Pt Level 3 (01815) Diagnoses Weakness of both lower limbs R29.898 Seronegative rheumatoid arthritis M06.00 Screening PSA (prostate specific antigen) Z12.5 Additional Codes KIRA-7 Assessment Billing - KIRA-7 Assessment Tool: KIRA-7 Assessment 46433 ([id number])
== END 2023-05-13 10:40 | disposition home or self-care (01) ==
PROVIDERS: PCP Nurse Practitioner Family; Visit Provider Nurse Practitioner Family
DX: R29.898 Other symptoms and signs involving the musculoskeletal system (principal); M06.00 Rheumatoid arthritis without rheumatoid factor, unspecified site; Z12.5 Encounter for screening for malignant neoplasm of prostate
CPT/HCPCS: 99213

== ENCOUNTER 2023-05-16 08:06 | Outpatient (AMB) | payer MEDICARE, SELFPAY ==
--- NOTE | 2023-05-16 08:22 | A.OFFVIS_ITS ---
Intake Vital Signs 05/16/23 08:23 Height 6 ft 4 in Weight 440 lb BMI 53.6 Intake Visit Reasons: ov- right knee Durolane injection Intake Note: Dinh is a 68 year old male who presents today for a right knee Durolane injection Allergies No Known Allergies [No Known Allergies*] Allergy (Verified 05/16/23 08:24) HPI ov- right knee Durolane injection HPI Details 68-year-old male who returns to the [facility] today for a right knee Durolane injection. [facility] Medical History Osteoarthritis of right knee Melanoma History of cardioversion Hereditary lymphedema Venous insufficiency Morbid obesity Lymphedema COPD (chronic obstructive pulmonary disease) Sensory neuropathy COVID-19 Respiratory failure with hypoxia Restrictive lung disease COPD (chronic obstructive pulmonary disease) JEFFRY on CPAP MATUTE (dyspnea on exertion) Chronic cystitis Bladder outlet obstruction Restless leg syndrome Traumatic complete tear of right rotator cuff Injury of right rotator cuff History of diverticulitis History of umbilical hernia Surgical History Hx of colonoscopy History of appendectomy History of arthroscopy of left knee Family History Father Arthritis Diabetes Mother Arthritis Kidney stones Family/Other Arthritis Sister No problems noted. Sister No problems noted. Son No problems noted. Social History Household Members: Spouse Household Members Other:: Floridalma [facility] Do you presently have visiting nurse or other home services: No Alcohol intake: current Alcohol intake frequency: 0-2 drinks per day Alcohol type: beer Comment: refusing bed alarm Patient Tobacco Use Status: Former Tobacco user Quit Date: 2011 Tobacco use type: Cigarette Cigarette Packs Per Day: 1 Cigarettes Per Day: 20.0 Years Smoked: 30 years e-Cigarette/Vaping Use: Never Used Second Hand Smoke Exposure: No Substance Use Type: Marijuana Advance Directives Date on File: 05/16/20 service: No Current occupational status: retired 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 Cognitive needs: No Hearing needs: No Vision needs: No Review of Systems Const All systems reviewed & are unremarkable except as noted in HPI and below Physical Exam Vital Signs: BMI result Body Mass Index 53.6 Last Vital Signs Temp 96.8 F 10/15/22 07:30 Pulse 70 10/15/22 07:30 Resp 18 10/15/22 07:30 BP 139/66 10/15/22 07:30 Pulse Ox 97 10/15/22 07:30 O2 Del Method Nasal Cannula 10/15/22 07:30 O2 Flow Rate 2 10/15/22 07:30 Oxygen Flow Rate 3 10/13/22 11:00 BMI result Body Mass Index 51.1 Const General: cooperative, healthy appearing and no acute distress Orientation/consciousness: patient oriented x3 HEENT Head: Yes normal to inspection Resp Effort & Inspection: normal respiratory effort and able to speak in complete sentences Cardio Peripheral pulses: Peripheral pulses 2+ throughout Neuro General: patient oriented x3 Extrem Other: Right knee: Skin intact, no erythema or joint effusion. Tenderness along the medial and lateral joint line. Full ROM with crepitus. Negative Minal?s. No ligamentous laxity. NVI. Office Procedures Joint Injection/Drain Joint Injection/Drain Details: durolane injection Primary Site: right knee Prep: site was prepped using aseptic technique, ethochloride spray was applied and injection warnings given Injected: in the joint Approach Used: anterolateral Procedure: The patient tolerated the procedure well Coding 14389 - Glenohumeral/Tronchanteric Bursa/Intraarticular Procedure code (CPT) selection complete Assessment & Plan Assessment & Plan (1) Osteoarthritis of right knee: Code(s): M17.11 - Unilateral primary osteoarthritis, right knee Qualifiers: Osteoarthritis type: primary Qualified Code(s): M17.11 - Unilateral primary osteoarthritis, right knee Plan We discussed options today which include Durolane injection. They did consent to move forward with the right knee Durolane injection, which was tolerated well. I recommended rest, ice and elevation and OTC anti-inflammatories PRN for discomfort. If symptoms persist or worsens over the next 6-8 weeks, patient will contact the office, otherwise follow-up as needed. Patient Instructions: Scribed for Angella Villalta PA-C, by Cl Helton medical office professional instructor, on 05/16/2023 at 9:00 AM EST. Angella Grant PA-C, have personally reviewed and agree with the information entered by the scribe. Coding Level of Care Code Procedure Only Diagnoses Primary osteoarthritis of right knee M17.11 Osteoarthritis type: primary CPT Codes Coding - Joint 7: 50052 - Glenohumeral/Tronchanteric Bursa/Intraarticular ([id number])
[2023-05-16 08:23] VITALS: BMI 53.6
== END 2023-05-16 08:31 | disposition home or self-care (01) ==
PROVIDERS: PCP Nurse Practitioner Family; Visit Provider Physician Assistant
DX: M17.11 Unilateral primary osteoarthritis, right knee (principal)
CPT/HCPCS: 20610

== ENCOUNTER → 2023-05-16 08:06 | Outpatient (BNVA) | payer MEDICARE, SELFPAY | PROVIDERS: PCP Nurse Practitioner Family; Visit Provider Physician Assistant | DX: M17.11 Unilateral primary osteoarthritis, right knee (principal) | CPT/HCPCS: 20610; J7318 ==

== ENCOUNTER 2023-05-27 08:00 | Outpatient (RCR) | payer MEDICARE, SELFPAY ==
--- NOTE | 2023-05-27 13:27 | MHC.OT.DC ---
[address] [phone] F: [phone] Occupational Therapy Discharge Note Patient Name: Dinh Craven Jr Provider: Mary Alice Hagen Diagnosis: Stiffness of right hand Stiffness of left hand Date of Surgery: Date of Evaluation: 05/06/23 Date of Discharge: 05/27/23 Treatments to Date: 4 Cancellations to Date: 0 No Shows to Date: 0 Discharge Status: Improved Function Independent with HEP Patient Elected to Stop Discharge Summary: Dec in bilateral hand pain. Dinh reports significantly improved. He is now able to make a full fist on bilateral hands . Continued pain with thumb op, pinch and forceful lawyers strength on the left hand greater than the right . Mid Level Net Developer and pinch strengths are low due to wrist and hand pain. There is a good increased with digit flexion to DPC to WNL. Dinh is independent with his HEP and self management of hand and wrist RA symptoms including isometric hand and wrist strengthening and use of a graded hand gripper. OT goals are met except for a goal for hand strength at 40 lb. Dinh preferred to continue his HEP for self management. Electronically Signed By: Liane Harris OT CHT CLT Reviewed/agree with student documentation: Therapist: Please Sign and return to therapist, thank you for your referral.
== END 2023-05-27 13:28 | disposition home or self-care (01) ==
LOC: HO.OT 08:00
PROVIDERS: PCP Nurse Practitioner Family; Visit Provider Orthopaedic Surgery
DX: M19.041 Primary osteoarthritis, right hand (principal); M25.641 Stiffness of right hand, not elsewhere classified; M25.642 Stiffness of left hand, not elsewhere classified
CPT/HCPCS: 29130; 97035; 97110; 97140; 97166; 97530; 97760

== ENCOUNTER 2023-06-30 15:07 | Outpatient (AMB) | payer MEDICARE, SELFPAY ==
[2023-06-30 15:33] VITALS: BP 130/68; PULSE 71; O2SAT 97; BMI 55.3
--- NOTE | 2023-06-30 15:33 | A.OFFVIS_ITS ---
Vital Signs 06/30/23 15:33 Height 6 ft 4 in Weight 454 lb 2.436 oz BMI 55.3 BP 130/68 Blood Pressure Location Lt brachial Position Sitting Pulse 71 Pulse Source Monitor Pulse Oximetry (%) 97 Oxygen Delivery Method Room Air Intake Visit Reasons: f/u 2 month Allergies No Known Allergies [No Known Allergies*] Allergy (Verified 05/16/23 08:24) Medication List - Last Reconciled 06/30/23 by CARMITA Lee albuterol sulfate 90 mcg/actuation 2 puffs PO Q6H PRN amiodarone 200 mg PO DAILY Anoro Ellipta 62.5-25 mcg/actuation (umeclidinium-vilanterol) 1 inh PO DAILY NS apixaban (Eliquis) 5 mg PO BID atorvastatin 80 mg PO BEDTIME 90 days doxazosin 8 mg PO BEDTIME duloxetine 60 mg PO DAILY finasteride 5 mg PO DAILY 90 days furosemide (Lasix) 40 mg PO DAILY methimazole 5 mg PO DAILY Orencia ClickJect (abatacept) 125 mg subcut QWEEK NS oxybutynin chloride ER 10 mg PO DAILY 90 days pregabalin 150 mg PO TID 90 days ropinirole 2 mg PO TID semaglutide (weight loss) (Wegovy) 0.25 mg (0.5 mL) subcut QWEEK 30 days spironolactone TAKE 1 TABLET BY MOUTH DAILY walker daily use (rolling sitting walker-bariatric size needed) HPI HPI f/u 2 month: Details: Dinh Moore) is a 68-year-old male with past medical history of morbid obesity, obstructive sleep apnea with CPAP use, COPD on home O2, who was admitted to [facility] September 2022 with increased shortness of breath and found to have new diagnosis of atrial fibrillation. He was treated with heart rate control and started on anticoagulation. Initially had some hematuria which has since resolved. He did undergo an unsuccessful cardioversion on 11/29/2022 and was started on amiodarone. Once fully loaded he underwent a repeat cardioversion on 01/07/2023 with successful conversion to sinus rhythm. He has not had known recurrent AFib since that time. He now presents for follow-up. Today he reports that he has been doing very well since his last visit in April. He has a wheeling walker/seat. He has been increasing his physical activity and even walking around his neighborhood. He is now able to sit when he needs to while walking. This has been making him feel much better overall. Has been noticing less shortness of breath with activity. He is hoping to be able to lose weight. He does have chronic issues with knee arthritis but is unable to undergo any replacement till he loses significant weight. He has not had any chest discomfort at rest or with activity. He has no palpitations, lightheadedness, presyncope, syncope, falls. He is denying PND, orthopnea. He is chronic lower leg edema but currently states his legs are looking good to him. He has no open wounds. Wears light compression stockings over his lower legs. Taking all meds as directed. No bleeding issues reported. He continues to hold his diuretic if he has an appointment. Compliant with CPAP each night. When he does take it which is most days of the week he reports very frequent urination. [facility] Medical History Osteoarthritis of right knee Melanoma History of cardioversion Hereditary lymphedema Venous insufficiency Morbid obesity Lymphedema COPD (chronic obstructive pulmonary disease) Sensory neuropathy COVID-19 Respiratory failure with hypoxia Restrictive lung disease COPD (chronic obstructive pulmonary disease) JEFFRY on CPAP MATUTE (dyspnea on exertion) Chronic cystitis Bladder outlet obstruction Restless leg syndrome Traumatic complete tear of right rotator cuff Injury of right rotator cuff History of diverticulitis History of umbilical hernia Surgical History Hx of colonoscopy History of appendectomy History of arthroscopy of left knee Family History Father Arthritis Diabetes Mother Arthritis Kidney stones Family/Other Arthritis Sister No problems noted. Sister No problems noted. Son No problems noted. Social History Household Members: Spouse Household Members Other:: Floridalma Housing: Condominium Do you presently have visiting nurse or other home services: No Alcohol intake: current Alcohol intake frequency: 0-2 drinks per day Alcohol type: beer Comment: refusing bed alarm Patient Tobacco Use Status: Former Tobacco user Quit Date: 2011 Tobacco use type: Cigarette Cigarette Packs Per Day: 1 Cigarettes Per Day: 20.0 Years Smoked: 30 years e-Cigarette/Vaping Use: Never Used Second Hand Smoke Exposure: No Substance Use Type: Marijuana Advance Directives Date on File: 05/16/20 service: No Current occupational status: retired 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 Cognitive needs: No Hearing needs: No Vision needs: No Review of Systems Const All systems reviewed & are unremarkable except as noted in HPI and below Denies weakness ENT Denies dizziness Card Denies chest pain, Denies chest pain with activity, Denies syncope, Denies rapid heart rate, Denies pedal edema, Denies edema, Reports leg edema, Denies lightheadedness, Denies palpitations, Reports dyspnea, Reports dyspnea on exertion and Denies orthopnea Resp Denies cough, Reports dyspnea and Reports dyspnea on exertion GI Denies hematochezia and Denies change in stool character Musc Details: uses wheeling walker Reports abnormal gait, Denies muscle cramps, Denies muscle weakness, Denies numbness, Denies radiating pain into limb and Denies tingling Neuro Reports abnormal gait, Denies dizziness, Denies syncope, Denies numbness, Denies tingling and Denies weakness Endo Denies palpitations Physical Exam Vital Signs: Last Vital Signs Pulse 71 06/30/23 15:33 BP 130/68 06/30/23 15:33 Pulse Ox 97 06/30/23 15:33 Oxygen Delivery Method Room Air 06/30/23 15:33 BMI result Body Mass Index 55.3 Const Other: morbidly obese. Wearing O2 supplement with walking. Sob when walking in hallway General: cooperative, comfortable and no acute distress Orientation/consciousness: patient oriented x3 Neck Neck: Yes normal visual inspection and Yes no JVD Resp Effort & Inspection: normal respiratory effort Auscultation: clear to auscultation bilaterally, no crackles, no rales, no rhonchi and no wheezes Cardio Jugular venous distension: no JVD Rate: regular rate Rhythm: regular rhythm Heart sounds: S1 normal heart sound present, S2 normal heart sound present, no murmurs and no rubs Neuro General: patient oriented x3 Extrem Other: Velcro wraps on legs Psych Appearance: grossly normal Mental Status: mental status grossly normal Speech and movement: Normal speech and movement present Office Procedures EKG Details: Today, read by me, sinus rhythm with first-degree AV block, right bundle branch block, rate 71, QTC 462 milliseconds [id number], Complete Assessment & Plan Assessment & Plan (1) A-fib: Code(s): I48.91 - Unspecified atrial fibrillation Category: Medical Qualifiers: Atrial fibrillation type: persistent (not longstanding) Qualified Code(s): I48.19 - Other persistent atrial fibrillation Plan: Newer finding of atrial fibrillation- when he presented to [facility] 10/13/22 for shortness of breath. He was treated with heart rate control and Eliquis for anticoagulation. He continued to have persistent AFib. Echocardiogram 10/10/2022 showed EF 40-50%, no valve abnormalities. Holter monitor done 10/10/2022 for 3 days shows atrial fib, rate 86, PVCs 1.3% of time. He underwent a cardioversion on 11/29/2022 which was unsuccessful. He was started on an amiodarone load then underwent a repeat cardioversion on 01/07/2023 with successful conversion to sinus rhythm. He has had no known recurrent atrial fibrillation since that time. An EKG done today is showing sinus rhythm with first-degree AV block and a right bundle branch block, rate 71. His breathing has improved since last visit. Will have him continue with amiodarone. Labs done on 02/05/2023 showed normal LFTs, TSH 2.0. Going forward will need to consider alternate antiarrhythmic therapy versus referral to EP for possible ablation. 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 Continue Eliquis for anticoagulation. Labs from 02/05/2023 had shown normal creatinine. Cardiology follow-up in 4 months, sooner if needed (2) Morbid obesity: Code(s): E66.01 - Morbid (severe) obesity due to excess calories Category: Medical Plan: Weight loss would be beneficial for his overall health. He is aware of this and states he is trying. (3) JEFFRY on CPAP: Comment: KNOWN TO HAVE OBSTRUCTIVE SLEEP APNEA. USES CPAP REGULARLY AND HAS BEEN VERY COMPLIANT AND BENEFITTING. CURRENTLY USING OXYGEN 2 L/MT ALONG WITH CPAP AT NIGHTTIME. Code(s): G47.33 - Obstructive sleep apnea (adult) (pediatric); Z99.89 - Dependence on other enabling machines and devices Category: Medical Plan: Compliant with his CPAP each night (4) Congestive heart failure: Comment: continue all meds as prescribed, INCLUDING LASIX Code(s): I50.9 - Heart failure, unspecified Category: Medical Qualifiers: Heart failure type: combined systolic and diastolic Plan: As above. History of Congestive heart failure. On examination today he does not appear to have decompensated heart failure. His morbid obesity makes this assessment more challenging. He does have chronic lower leg edema which currently he is reporting as being good. He is on Lasix 40 mg daily. He does hold his Lasix when he has a doctor's appointment. Signs and symptoms of heart failure reviewed with him. The importance of diuretic compliance discussed. 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 No evidence of toxicity at this time Plan Time spent on chart review, documentation, interview and assessment Coding Level of Care Code Est Pt Level 4 (03203) Diagnoses Persistent atrial fibrillation I48.19 Atrial fibrillation type: persistent (not longstanding) Morbid obesity E66.01 JEFFRY on CPAP G47.33; Z99.89 Congestive heart failure I50.9 Heart failure type: combined systolic and diastolic On amiodarone therapy Z79.899 CPT Codes EKG - CPT: [id number], Complete ([id number]) Time Spent (min) 30
== END 2023-06-30 16:30 | disposition home or self-care (01) ==
PROVIDERS: PCP Nurse Practitioner Family; Visit Provider Nurse Practitioner Family
DX: I44.0 Atrioventricular block, first degree (principal)
CPT/HCPCS: 93010; 99214

== ENCOUNTER → 2023-06-30 15:07 | Outpatient (BNVA) | payer MEDICARE, SELFPAY | PROVIDERS: PCP Nurse Practitioner Family; Visit Provider Nurse Practitioner Family | DX: I48.19 Other persistent atrial fibrillation (principal); G47.33 Obstructive sleep apnea (adult) (pediatric); I50.9 Heart failure, unspecified; E66.01 Morbid (severe) obesity due to excess calories; Z99.89 Dependence on other enabling machines and devices; Z79.899 Other long term (current) drug therapy; Z68.43 Body mass index [BMI] 50.0-59.9, adult | CPT/HCPCS: 93005; 99212 ==

== ENCOUNTER 2023-07-07 06:18 | Outpatient (REF) | payer MEDICARE, SELFPAY ==
[2023-07-07 10:29] LABS: MANUAL DIFF FLAG NO
[2023-07-07 10:34] LABS: Basophils Absolute Auto 0.1 X10*3/uL (0.0-0.2); Eosinophils Absolute Auto 0.2 X10*3/uL (0.0-0.4); Eosinophils Percent Auto 2.7 % (0-4); Hematocrit 44.2 % (42.0-52.0); Hemoglobin 14.7 g/dl (14.0-18.0); Imm Gran Abs Auto 0.03 X10*3/uL (0.00-0.03); Imm Gran Pct Auto 0.5 % (0.0-0.4); Lymphocytes Absolute Auto 1.6 X10*3/uL (1.2-4.9); Lymphocytes Percent Auto 26.2 % (20-40); Mean Corpuscular HGB Conc 33.3 g/dl (31.0-36.0); Mean Corpuscular Hemoglobin 33.7 pg (27.0-33.0); Mean Corpuscular Volume 101.4 fL (80.0-98.0); Mean Platelet Volume 10.9 fL (9.4-12.4); Monocytes Absolute Auto 0.6 X10*3/uL (0.1-1.2); Neutrophils Absolute Auto 3.8 x10*3/uL (2.0-8.3); Neutrophils Percent Auto 60.6 % (45-73); Platelet Count 257 X10*3/uL (160-400); Red Blood Count 4.36 X10*6/uL (4.60-5.80); Red Cell Distribution Width 13.4 % (11.0-16.0); White Blood Count 6.2 X10*3/uL (4.8-10.8)
[2023-07-07 10:37] LABS: Appearance Urine Clear; Color Urine Yellow; Glucose Urine UA Negative (Negative); Leukocyte Esterase Urine Negative (Negative); Nitrite Urine Negative (Negative); PH 5.5 (5.0-9.0); Specific Gravity - Urine 1.015 (1.005-1.025); Urine Blood Negative (Negative); Urine Ketones Negative (Negative); Urine Protein Negative (Neg-Trace)
[2023-07-07 11:06] LABS: Alanine Aminotransferase 20 U/L (0-40); Albumin Level 3.7 g/dL (3.5-5.0); Alkaline Phosphatase 97 U/L (39-117); Anion Gap 14 (12-20); Aspartate Amino Transferase 20 U/L (5-37); Bilirubin Total 0.8 mg/dL (0.0-1.0); Blood Urea Nitrogen 14 mg/dL (9-16); Calcium 8.9 mg/dL (8.4-10.2); Carbon Dioxide 22 mmol/L (22-29); Chloride 107 mmol/L (96-108); Cholesterol 113 mg/dL (<200); Estimated Glomerular Filt Rate > 60; Glucose Fasting 108 mg/dL (60-99); Glucose Random 107 mg/dL (60-115); HDL Cholesterol 48 mg/dL (>40); LDL Cholesterol Calculated 52 mg/dL (<100); Potassium 4.1 mmol/L (3.3-5.1); Sodium 139 mmol/L (135-145); Triglycerides 69 mg/dL (<150)
[2023-07-07 11:08] LABS: Prostate Specific Antigen Scr 0.48 ng/mL (<0.05-4.0)
[2023-07-07 11:11] LABS: TSH reflex Free T4 2.82 uIU/mL (0.32-4.0)
[2023-07-07 11:18] LABS: Erythrocyte Sedimentation Rate 7 MM/HR (0-15)
[2023-07-09 11:03] LABS: HCV Log PCR <1.18 NOT DETECTED Log IU/mL (NOT DETECTED); HepC Viral Load <15 NOT DETECTED IU/mL (NOT DETECTED)
== END 2023-07-07 06:19 | disposition home or self-care (01) ==
LOC: HO.HMGCLDS 06:18
PROVIDERS: PCP Nurse Practitioner Family; Referring Provider Student in an Organized Health Care Education/Training Program; Visit Provider Nurse Practitioner Family
DX: M06.00 Rheumatoid arthritis without rheumatoid factor, unspecified site (principal); R29.898 Other symptoms and signs involving the musculoskeletal system; Z12.5 Encounter for screening for malignant neoplasm of prostate; B19.20 Unspecified viral hepatitis C without hepatic coma
CPT/HCPCS: 36415; 80053; 80061; 81003; 84153; 84443; 85025; 85652; 86140; 87522

== ENCOUNTER 2023-07-10 10:38 | Outpatient (REF) | payer MEDICARE, SELFPAY ==
[2023-07-10 13:16] LABS: MANUAL DIFF FLAG NO
[2023-07-10 13:33] LABS: Basophils Absolute Auto 0.1 X10*3/uL (0.0-0.2); Basophils Percent Auto 0.8 % (0-2); Eosinophils Absolute Auto 0.1 X10*3/uL (0.0-0.4); Eosinophils Percent Auto 1.6 % (0-4); Hemoglobin 14.9 g/dl (14.0-18.0); Imm Gran Abs Auto 0.04 X10*3/uL (0.00-0.03); Imm Gran Pct Auto 0.5 % (0.0-0.4); Lymphocytes Absolute Auto 1.7 X10*3/uL (1.2-4.9); Lymphocytes Percent Auto 22.4 % (20-40); Mean Corpuscular HGB Conc 33.1 g/dl (31.0-36.0); Mean Corpuscular Hemoglobin 33.9 pg (27.0-33.0); Mean Corpuscular Volume 102.3 fL (80.0-98.0); Mean Platelet Volume 10.7 fL (9.4-12.4); Monocytes Absolute Auto 0.7 X10*3/uL (0.1-1.2); Monocytes Percent Auto 8.6 % (2-11); Neutrophils Absolute Auto 5.1 x10*3/uL (2.0-8.3); Neutrophils Percent Auto 66.1 % (45-73); Platelet Count 261 X10*3/uL (160-400); Red Cell Distribution Width 13.3 % (11.0-16.0); White Blood Count 7.7 X10*3/uL (4.8-10.8)
[2023-07-10 13:35] LABS: D Dimer High Sensitivity < 150 NG/ML
[2023-07-10 13:53] LABS: Alanine Aminotransferase 21 U/L (0-40); Albumin Level 3.8 g/dL (3.5-5.0); Alkaline Phosphatase 101 U/L (39-117); Anion Gap 14 (12-20); Aspartate Amino Transferase 20 U/L (5-37); Bilirubin Total 0.9 mg/dL (0.0-1.0); Blood Urea Nitrogen 15 mg/dL (9-16); Calcium 9.3 mg/dL (8.4-10.2); Carbon Dioxide 26 mmol/L (22-29); Chloride 103 mmol/L (96-108); Estimated Glomerular Filt Rate > 60; Glucose Random 116 mg/dL (60-115); Potassium 4.2 mmol/L (3.3-5.1); Sodium 139 mmol/L (135-145); Total Protein 7.3 g/dL (6.5-8.0)
[2023-07-10 13:58] LABS: TSH reflex Free T4 2.63 uIU/mL (0.32-4.0)
[2023-07-10 13:59] LABS: B Type Natriuretic Peptide < 10 pg/mL (<100)
[2023-07-10 14:12] LABS: Folate 7.4 ng/mL (> or = 4.0); Vitamin B12 463 pg/mL (200-900)
== END 2023-07-10 10:39 | disposition home or self-care (01) ==
LOC: HO.HMGCLDS 10:38
PROVIDERS: PCP Nurse Practitioner Family; Visit Provider Nurse Practitioner Family
DX: R06.02 Shortness of breath (principal); I50.9 Heart failure, unspecified
CPT/HCPCS: 36415; 80053; 82607; 82746; 83880; 84443; 85025; 85379

== ENCOUNTER 2023-07-17 15:04 | Outpatient (AMB) | payer MEDICARE, SELFPAY ==
[2023-07-17 15:06] VITALS: BP 144/76; PULSE 85
--- NOTE | 2023-07-17 15:06 | A.OFFVIS_ITS ---
Vital Signs 07/17/23 15:06 Height 6 ft 4 in BP 144/76 H Blood Pressure Location Lt brachial Position Sitting Pulse 85 Pulse Source Pulse Oximeter Intake Visit Reasons: Hyperthyroidism-confirmed Intake Note: Patient present today for Hyperthyroidism follow up visit. Sample Mounter Required: No Accompanied by: Self / Same As Patient Allergies No Known Allergies [No Known Allergies*] Allergy (Verified 07/17/23 15:11) Medication List - Last Reconciled 07/17/23 by Marc Muñoz MD albuterol sulfate 90 mcg/actuation 2 puffs PO Q6H PRN amiodarone 200 mg PO DAILY Anoro Ellipta 62.5-25 mcg/actuation (umeclidinium-vilanterol) 1 inh PO DAILY NS apixaban (Eliquis) 5 mg PO BID atorvastatin 80 mg PO BEDTIME 90 days doxazosin 8 mg PO BEDTIME duloxetine 60 mg PO DAILY finasteride 5 mg PO DAILY 90 days furosemide (Lasix) 40 mg PO DAILY methimazole 5 mg PO DAILY Orencia ClickJect (abatacept) 125 mg subcut QWEEK NS oxybutynin chloride ER 10 mg PO DAILY 90 days pregabalin 150 mg PO TID 90 days ropinirole 2 mg PO TID semaglutide (weight loss) (Wegovy) 0.25 mg (0.5 mL) subcut QWEEK 30 days spironolactone TAKE 1 TABLET BY MOUTH DAILY walker daily use (rolling sitting walker-bariatric size needed) HPI Comments Details: 68 YO M with who is seen in consultation for hyperthyroidism at the request of PCP. Was initially diagnosed with hyperthyroidism. Currently denies any dysphagia but hoarseness of voice. Denies sensation of swelling in the neck or difficulty breathing while lying flat. Denies any tenderness in the neck. Denies any palpitations, but had tremors, weight loss of 35 lbs intentionally has stabilized , no frequent bowel movements. Only complaint is waking up after 5 hours of sleep at not being able to fall back to sleep Denies any ocular complaints, blurred or double vision. c/o hair loss, dry skin, no heat intolerance at nights no cold intolerance, no weight gain, no confusion. Denies any history of head or neck irradiation. Denies any family history of thyroid cancer. Strong family hx of thyroid problems Does not take Biotin Thyroid US: Labs: Evaluation showed the presence of Graves disease. Patient is currently on methimazole 5 mg q.d. [facility] Medical History Osteoarthritis of right knee Melanoma History of cardioversion Hereditary lymphedema Venous insufficiency Morbid obesity Lymphedema COPD (chronic obstructive pulmonary disease) Sensory neuropathy COVID-19 Respiratory failure with hypoxia Restrictive lung disease COPD (chronic obstructive pulmonary disease) JEFFRY on CPAP MATUTE (dyspnea on exertion) Chronic cystitis Bladder outlet obstruction Restless leg syndrome Traumatic complete tear of right rotator cuff Injury of right rotator cuff History of diverticulitis History of umbilical hernia Surgical History Hx of colonoscopy History of appendectomy History of arthroscopy of left knee Family History Father Arthritis Diabetes Mother Arthritis Kidney stones Family/Other Arthritis Sister No problems noted. Sister No problems noted. Son No problems noted. Social History Household Members: Spouse Household Members Other:: Floridalma [facility] Do you presently have visiting nurse or other home services: No Alcohol intake: current Alcohol intake frequency: 0-2 drinks per day Alcohol type: beer Comment: refusing bed alarm Patient Tobacco Use Status: Former Tobacco user Tobacco use type: Cigarette Cigarette Packs Per Day: 1 Cigarettes Per Day: 20.0 Years Smoked: 30 years e-Cigarette/Vaping Use: Never Used Second Hand Smoke Exposure: No Substance Use Type: Marijuana Advance Directives Date on File: 05/16/20 service: No Current occupational status: retired 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 Thyroid gland measure 15 gms . No nodules or tenderness palpated. There is no cervical adenopathy palpated. Lungs CTA. Heart S1, S2 Reg R/R -M/R/G. Abdominal exam benign. Skin exam reveals absence of dryness or thyroid dermopathy or vitiligo. Nail exam reveals absence of thyroid acropachy or oncholysis. Neurologic exam reveals 2+ reflexes . Muscle Strength is 5/5 proximally. There are no tremors in upper extremities. Assessment & Plan Assessment & Plan (1) Low TSH level: Code(s): R79.89 - Other specified abnormal findings of blood chemistry Category: Medical Plan: This is a 66-year-old white male with a history of hyperthyroidism due to Graves disease. He is currently being treated with methimazole 5 mg q.d.. He appears to be clinically and biochemically euthyroid Plan is to continue the methimazole to 5 mg q.d.. Once again, I went over side effects of methimazole including but not limited to liver toxicity and agranulocytosis and also went over of the definitive therapy including use of radioactive iodine and surgery. He is opting to stay on the methimazole currently Orders: Orders Thyroid Stimulating Hormone 3 Months - Other specified abnormal findings of blood chemistry Triiodothyronine T3 Free 3 Months - Other specified abnormal findings of blood chemistry Free T4 (Free Thyroxine) 3 Months R7 - Other specified abnormal findings of blood chemistry Complete Blood Count Auto Diff 3 Months - Other specified abnormal findings of blood chemistry Liver Panel 3 Months - Other specified abnormal findings of blood chemistry Coding Level of Care Code Est Pt Level 3 (88825) Diagnoses Low TSH level R7
== END 2023-07-17 15:50 | disposition home or self-care (01) ==
PROVIDERS: PCP Nurse Practitioner Family; Visit Provider Internal Medicine Endocrinology, Diabetes & Metabolism
DX: R79.89 Other specified abnormal findings of blood chemistry (principal)
CPT/HCPCS: 99213

== ENCOUNTER → 2023-07-17 15:04 | Outpatient (BNVA) | payer MEDICARE, SELFPAY | PROVIDERS: PCP Nurse Practitioner Family; Visit Provider Internal Medicine Endocrinology, Diabetes & Metabolism | DX: R79.89 Other specified abnormal findings of blood chemistry (principal) | CPT/HCPCS: 99212 ==

== ENCOUNTER 2023-07-22 08:34 | Outpatient (AMB) | payer MEDICARE, SELFPAY ==
--- NOTE | 2023-07-22 08:43 | MHC.OFFVIS ---
Intake Visit Reasons: 6M PVR/Med Review Intake Note: Patient is Present for PVR/Med Review Urology Med:Oxybutynin, Finasteride Antibiotic Allergy:None Blood Thinner: Eliquis Last PVR: 0 Todays PVR:25 Patient states that he takes 60mg Of lasix daily and does usually cause him to urinate a lot more than usual Allergies No Known Allergies [No Known Allergies*] Allergy (Verified 07/22/23 08:50) HPI Comments Details: Dinh is a very pleasant male. He is a patient of Dr. Chong. He is seen for the following urologic conditions - chronic cystitis - lower urinary tract symptoms Has been on oxybutynin with finasteride PVR 25 cc 60 mg Lasix daily Goes to wound clinic clinic for lymphedema Using lower body pump Good success with Current medications Recently started GLP 1 Discussed maintaining activity Lower urinary tract symptoms - predominant urgency Did notice improved stream with doxazosin 8 mg and finasteride Still with urge - responsive to myrbetriq Hematuria: Chronic cystitis on prior biopsy Episode of marked hematuria October 2020 Microscopic hematuria was diagnosed during routine UA. They are here for the cystoscopy and discussion of imaging findings. Since the last visit the patient has has not noticed gross hematuria, continues to test positive for microscopic hematuria. Relevant medical history for no pertinent medical history. PSA 01/07 1.6, 05/09 1.3 Radiographic imaging: CT KUB NAD - bilateral renal cyst. Cystoscopy findings September 2018 chronic cystitis. Therapeutic plan follow-up in 6 months [facility] Medical History Osteoarthritis of right knee Melanoma History of cardioversion Hereditary lymphedema Venous insufficiency Morbid obesity Lymphedema COPD (chronic obstructive pulmonary disease) Sensory neuropathy COVID-19 Respiratory failure with hypoxia Restrictive lung disease COPD (chronic obstructive pulmonary disease) JEFFRY on CPAP MATUTE (dyspnea on exertion) Chronic cystitis Bladder outlet obstruction Restless leg syndrome Traumatic complete tear of right rotator cuff Injury of right rotator cuff History of diverticulitis History of umbilical hernia Surgical History Hx of colonoscopy History of appendectomy History of arthroscopy of left knee Family History Father Arthritis Diabetes Mother Arthritis Kidney stones Family/Other Arthritis Sister No problems noted. Sister No problems noted. Son No problems noted. Social History Household Members: Spouse Household Members Other:: Floridalma Housing: Condominium Do you presently have visiting nurse or other home services: No Alcohol intake: current Alcohol intake frequency: 0-2 drinks per day Alcohol type: beer Comment: refusing bed alarm Patient Tobacco Use Status: Former Tobacco user Tobacco use type: Cigarette Cigarette Packs Per Day: 1 Cigarettes Per Day: 20.0 Years Smoked: 30 years e-Cigarette/Vaping Use: Never Used Second Hand Smoke Exposure: No Substance Use Type: Marijuana Advance Directives Date on File: 05/16/20 service: No Current occupational status: retired 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 Cognitive needs: No Hearing needs: No Vision needs: No Review of Systems Const Denies chills and Denies fever(s) Card Reports no additional complaints and Denies syncope Resp Denies cough GI Denies abdominal pain and Denies heartburn Reports as per HPI and Denies change in libido Neuro Denies syncope Psych Denies change in libido Endo Denies change in libido Physical Exam Const General: cooperative, healthy appearing, comfortable and no acute distress Orientation/consciousness: patient oriented x3 HEENT Face and sinus: Yes normal facial exam Mouth: moist mucous membranes Neck Neck: Yes normal visual inspection, Yes full ROM and Yes trachea midline Chest Chest palpation & inspection: normal inspection of the chest Resp Effort & Inspection: normal respiratory effort, able to speak in complete sentences and no respiratory distress GI Inspection: Yes normal to inspection Back/Spine/Pelvis Cervical Spine: normal cervical lordosis Thoracic/Lumbar Spine: thoracic and lumbar spine normal to inspection Skin General skin exam: no rashes or lesions noted Neuro General: patient oriented x3, gait normal, tone normal and moves all extremities Extrem General: Yes normal to inspection and Yes capillary refill normal Office Procedures Post Void Residual Post Residual Void Post Void Residual (PVR): 25 20702-Nlat Void Residual by ultrasound Assessment & Plan Assessment & Plan (1) Overactive bladder: Code(s): N32.81 - Overactive bladder Category: Medical Plan Six-month follow-up PVR Orders: Orders AMB Post Void Residual by ultrasound Today N32.81 - Overactive bladder Patient Instructions: Imaging studies, laboratory and physical exam results were discussed and reviewed in detail. No major barriers to patient understanding were identified. An opportunity to ask questions regarding the treatment plan was provided. All questions were answered. The patient expressed understanding and agreement with the above treatment plan. The patient is aware they should contact our office by phone for worsening of their current condition or the appearance of new urologic symptoms. Compliance is encouraged with any medications and followup testing that is ordered. It is a privilege to participate in the urologic care of your patient. If you have any questions or concerns regarding treatment for the above conditions, or other urologic issues, please do not hesitate to contact me. The office telephone contact is [phone]. This note is constructed using voice recognition software. While every effort has been made to ensure accuracy director digital advertising errors may have been included. Yours sincerely, Dr Prabhu Head MD, [facility] - Urology Providers of Expert, Compassionate Care for the Genitourinary System Coding Level of Care Code Est Pt Level 3 (18984) Diagnoses Overactive bladder N32.81 CPT Codes Post Residual Void - PVR CPT Code: 17524-Xbni Void Residual by ultrasound ([id number])
== END 2023-07-22 09:20 | disposition home or self-care (01) ==
PROVIDERS: PCP Nurse Practitioner Family; Visit Provider Urology
DX: N32.81 Overactive bladder (principal)
CPT/HCPCS: 99213

== ENCOUNTER → 2023-07-22 08:34 | Outpatient (BNVA) | payer MEDICARE, SELFPAY | PROVIDERS: PCP Nurse Practitioner Family; Visit Provider Urology | DX: N32.81 Overactive bladder (principal); N30.21 Other chronic cystitis with hematuria | CPT/HCPCS: 51798; 99212 ==

== ENCOUNTER 2023-07-24 09:43 | Outpatient (AMB) | payer MEDICARE, SELFPAY ==
[2023-07-24 10:15] VITALS: BP 154/78; PULSE 70; O2SAT 96; BMI 53.7
--- NOTE | 2023-07-24 10:15 | MHC.OFFVIS ---
Vital Signs 07/24/23 10:15 Height 6 ft 4 in Weight 440 lb 14.792 oz BMI 53.7 BP 154/78 H Blood Pressure Location Lt radial Position Sitting Pulse 70 Pulse Source Pulse Oximeter Pulse Oximetry (%) 96 Oxygen Delivery Method Room Air Intake Visit Reasons: Obstructive sleep apnea Allergies No Known Allergies [No Known Allergies*] Allergy (Verified 07/24/23 10:51) Medication List - Last Reconciled 07/24/23 by Savanna Andujar MD albuterol sulfate 90 mcg/actuation 2 puffs PO Q6H PRN amiodarone 200 mg PO DAILY Anoro Ellipta 62.5-25 mcg/actuation (umeclidinium-vilanterol) 1 inh PO DAILY NS apixaban (Eliquis) 5 mg PO BID atorvastatin 80 mg PO BEDTIME 90 days doxazosin 8 mg PO BEDTIME 90 days duloxetine 60 mg PO DAILY finasteride 5 mg PO DAILY 90 days furosemide (Lasix) 40 mg PO DAILY methimazole 5 mg PO DAILY Orencia ClickJect (abatacept) 125 mg subcut QWEEK NS oxybutynin chloride ER 10 mg PO DAILY 90 days pregabalin 150 mg PO TID 90 days ropinirole 2 mg PO TID 90 days spironolactone TAKE 1 TABLET BY MOUTH DAILY walker daily use (rolling sitting walker-bariatric size needed) Do you need a note to return to daycare/school/sports/work: No HPI HPI Obstructive sleep apnea: Details: CHERRY IS 68 YEARS OLD GENTLEMAN, WITH MORBID OBESITY, OBSTRUCTIVE SLEEP APNEA, RESTRICTIVE LUNG DISEASE, AND RESPIRATORY INSUFFICIENCY. HAS LYMPHEDEMA OF BOTH LOWER EXTREMITIES, US TO ARTHRITIS AND IMPAIRED LOCOMOTION. COMES AFTER 3 MONTHS. FOR HIS ROUTINE FOLLOW-UP USES CPAP REGULARLY EVERY NIGHT BUT HE IS LOOKING FOR A NEW CPAP MACHINE. ONE HE HAS IS 13 YEARS OLD, AFTER HIS INITIAL SLEEP STUDY 13 YEARS AGO. HE USES OXYGEN 3 L/MINUTE WITH PORTABLE DEVICE AND ALSO BLEEDS INTO THE CPAP APPARATUS AT NIGHT. HE IS TRYING TO LOSE WEIGHT BUT IT IS DIFFICULT FOR HIM BECAUSE HE IS NOT ABLE TO WALK MUCH. BREATHING HAS BEEN FAIRLY STABLE AND HE USES ANORO ELLIPTA 1 INHALATION DAILY PLUS ALBUTEROL INHALER P.R.N. HE IS HAPPY WITH HIS NEW WALKER AND IS STARTING TO WALK MORE. [facility] Medical History Osteoarthritis of right knee Melanoma History of cardioversion Hereditary lymphedema Venous insufficiency Morbid obesity Lymphedema COPD (chronic obstructive pulmonary disease) Sensory neuropathy COVID-19 Respiratory failure with hypoxia Restrictive lung disease COPD (chronic obstructive pulmonary disease) JEFFRY on CPAP MATUTE (dyspnea on exertion) Chronic cystitis Bladder outlet obstruction Restless leg syndrome Traumatic complete tear of right rotator cuff Injury of right rotator cuff History of diverticulitis History of umbilical hernia Surgical History Hx of colonoscopy History of appendectomy History of arthroscopy of left knee Family History Father Arthritis Diabetes Mother Arthritis Kidney stones Family/Other Arthritis Sister No problems noted. Sister No problems noted. Son No problems noted. Social History Household Members: Spouse Household Members Other:: Floridalma [facility] Do you presently have visiting nurse or other home services: No Alcohol intake: current Alcohol intake frequency: 0-2 drinks per day Alcohol type: beer Comment: refusing bed alarm Patient Tobacco Use Status: Former Tobacco user Tobacco use type: Cigarette Cigarette Packs Per Day: 1 Cigarettes Per Day: 20.0 Years Smoked: 30 years e-Cigarette/Vaping Use: Never Used Second Hand Smoke Exposure: No Substance Use Type: Marijuana Advance Directives Date on File: 05/16/20 service: No Current occupational status: retired 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 Cognitive needs: No Hearing needs: No Vision needs: No Review of Systems Const All systems reviewed & are unremarkable except as noted in HPI and below Eyes Reports no additional complaints ENT Reports no additional complaints Card Denies chest pain, Denies irregular heart rhythm and Denies leg edema Resp Reports as per HPI GI Reports no additional complaints Reports no additional complaints Musc Reports back pain Skin/Breast Reports system reviewed and no additional complaints, except as documented Neuro Reports no additional complaints Psych Reports no additional complaints Physical Exam Vital Signs: Last Vital Signs Pulse 70 07/24/23 10:15 BP 154/78 H 07/24/23 10:15 Pulse Ox 96 07/24/23 10:15 Oxygen Delivery Method Room Air 07/24/23 10:15 BMI result Body Mass Index 53.7 Const Other: wearing oxygen General: cooperative, healthy appearing, comfortable and no acute distress Orientation/consciousness: patient oriented x3 HEENT Head: Yes normal to inspection General nose exam: No nasal polyps present and No nasal discharge present Face and sinus: Yes sinuses nontender Mouth: oropharynx normal Throat: Yes posterior oropharynx normal Eyes General: appearance normal, both eyes and all related structures Neck Neck: Yes normal visual inspection, Yes no lymphadenopathy, Yes trachea midline and Yes no JVD Thyroid: Thyroid normal Chest Chest palpation & inspection: normal inspection of the chest, normal palpation of entire chest wall and no tenderness Resp Other: Percussion note not perceptible because of thick chest wall. Breath sounds are distant and especially decreased over the basilar areas. No wheezes or crepitations are heard. Effort & Inspection: normal respiratory effort and able to speak in complete sentences Auscultation: clear to auscultation bilaterally Cardio Palpation: PMI not normal (Not palpable) Rate: regular rate Rhythm: abnormal rhythm and other (Atrial fib) Heart sounds: no gallops and no murmurs GI Palpation (GI): Soft to palpation, nontender, No hepatosplenomegaly present, no masses and Other GI palpation findings present (Grossly obese and protuberant) Auscultation: normal bowel sounds Back/Spine/Pelvis Cervical Spine: normal cervical lordosis and cervical ROM normal Thoracic/Lumbar Spine: thoracic and lumbar spine normal to inspection, thoraco-lumbar ROM normal and paraspinal muscle tenderness (left trapezius/rhomboid tenderness and tautness of musculature to palpation) Skin General skin exam: no rashes or lesions noted Neuro General: patient oriented x3 and Normal light touch and pain sensation Cranial nerves: Yes CN's II-XII intact bilaterally Extrem General: Yes edema (Has chronic stasis edema /lymphedema both legs which is currently increased) and Yes venous stasis dermatitis Psych Appearance: grossly normal Mental Status: mental status grossly normal Speech and movement: Normal speech and movement present Assessment & Plan Assessment & Plan (1) Morbid obesity: Comment: HE IS A CASE OF CHRONIC MORBID OBESITY, HIS WEIGHT IS UP AND DOWN AND DEPENDS UPON THE AMOUNT OF STASIS EDEMA. AT PRESENT HE IS DOWN BY ABOUT 14 LB COMPARED TO LAST TIME. THE DOES OF DIURETIC HAS BEEN INCREASED TO 60 MG OF FUROSEMIDE DAILY. Code(s): E66.01 - Morbid (severe) obesity due to excess calories Category: Medical Plan: CONTINUE TO WALK MORE WITH THE WALKER AND ALSO DO SOME SWIMMING, IF POSSIBLE ON A DAILY BASIS. (2) JEFFRY on CPAP: Comment: KNOWN TO HAVE OBSTRUCTIVE SLEEP APNEA. USES CPAP REGULARLY AND HAS BEEN VERY COMPLIANT AND BENEFITTING. CURRENTLY USING OXYGEN 2 L/MT ALONG WITH CPAP AT NIGHTTIME. NEEDS A NEW CPAP MACHINE AND WE WILL BE WORKING ON THAT. HE MAY NEED A NEW SLEEP STUDY FOR CONFIRMATION. Code(s): G47.33 - Obstructive sleep apnea (adult) (pediatric); Z99.89 - Dependence on other enabling machines and devices Category: Medical Plan: ADVISED TO CONTINUE USING THE CPAP REGULARLY EVERY NIGHT. (3) COPD (chronic obstructive pulmonary disease): Comment: COPD remains stable and controlled, Lungs very clear Code(s): J44.9 - Chronic obstructive pulmonary disease, unspecified Category: Medical Plan: CONTINUE USING ANORO ELLIPTA 1 INHALATION DAILY AND ALBUTEROL HFA 2 PUFFS Q 6 HOURS P.R.N.. (4) Restrictive lung disease: Comment: RESTRICTION IS MAINLY BECAUSE OF HIS MORBID OBESITY. HE IS DOING BREATHING EXERCISES WITH INCENTIVE SPIROMETER., HE HAS BEEN IN PULMONARY REHAB PROGRAM, CURRENTLY ON HOLD . Code(s): J98.4 - Other disorders of lung Category: Medical Plan: DO DEEP BREATHING EXERCISES AT LEAST 3 TIMES A DAY (5) Respiratory failure with hypoxia: Comment: NOCTURNAL HYPOXEMIA REQUIRES O2, 2-3 L/MINUTE AT NIGHT ALONG WITH CPAP . USES PORTABLE OXYGEN at 2-3 L/mt. AND STATIONARY CONCENTRATOR ONLY P.R.N.. Code(s): J96.91 - Respiratory failure, unspecified with hypoxia Category: Medical Plan: CONTINUE USING O2 AT NIGHT ALONG WITH THE CPAP. USE O2 3 L/MINUTE WITH THE PORTABLE UNIT WHEN WALKING AROUND Medications: Discontinued semaglutide (weight loss) administer weeks 1 through 4 of therapy Discontinued Reason: Entered in error 0.5 mg (0.5 mL) subcut QWEEK 2.5 mL 0RF 30 days Coding Level of Care Code Est Pt Level 4 (76081) Diagnoses Morbid obesity E66.01 JEFFRY on CPAP G47.33; Z99.89 COPD (chronic obstructive pulmonary disease) J44.9 Restrictive lung disease J98.4 Respiratory failure with hypoxia J96.91
== END 2023-07-24 10:53 | disposition home or self-care (01) ==
PROVIDERS: PCP Nurse Practitioner Family; Visit Provider Internal Medicine
DX: E66.01 Morbid (severe) obesity due to excess calories (principal); G47.33 Obstructive sleep apnea (adult) (pediatric); Z99.89 Dependence on other enabling machines and devices; J44.9 Chronic obstructive pulmonary disease, unspecified; J98.4 Other disorders of lung; J96.91 Respiratory failure, unspecified with hypoxia
CPT/HCPCS: 99214

== ENCOUNTER → 2023-07-24 09:43 | Outpatient (BNVA) | payer MEDICARE, SELFPAY | PROVIDERS: PCP Nurse Practitioner Family; Visit Provider Internal Medicine | DX: G47.33 Obstructive sleep apnea (adult) (pediatric) (principal); J44.9 Chronic obstructive pulmonary disease, unspecified; J98.4 Other disorders of lung; J96.91 Respiratory failure, unspecified with hypoxia; E66.01 Morbid (severe) obesity due to excess calories; Z68.43 Body mass index [BMI] 50.0-59.9, adult; Z99.81 Dependence on supplemental oxygen; Z99.89 Dependence on other enabling machines and devices | CPT/HCPCS: 99212 ==

== ENCOUNTER 2023-07-29 09:34 | Outpatient (AMB) | payer MEDICARE, SELFPAY ==
[2023-07-29 09:44] VITALS: BP 142/74; PULSE 87; BMI 56.1
--- NOTE | 2023-07-29 09:44 | A.OFFVIS_ITS ---
Vital Signs 3 07/29/23 09:44 Height 6 ft 4 in Weight 460 lb 8.73 oz BMI 56.1 BP 142/74 H Blood Pressure Location Rt radial Position Sitting Pulse 87 Pulse Source Pulse Oximeter Intake Visit Reasons: RA Intake Note: Patient last seen 04/23/23 presents today for follow up and test results. 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 Accompanied by: Self / Same As Patient Allergies No Known Allergies [No Known Allergies*] Allergy (Verified 07/29/23 09:47) Medication List - Last Reconciled 07/29/23 by Kristi Acosta MD albuterol sulfate 90 mcg/actuation 2 puffs PO Q6H PRN amiodarone 200 mg PO DAILY Anoro Ellipta 62.5-25 mcg/actuation (umeclidinium-vilanterol) 1 inh PO DAILY NS apixaban (Eliquis) 5 mg PO BID atorvastatin 80 mg PO BEDTIME 90 days doxazosin 8 mg PO BEDTIME 90 days duloxetine 60 mg PO DAILY finasteride 5 mg PO DAILY 90 days furosemide (Lasix) 40 mg PO DAILY methimazole 5 mg PO DAILY Orencia ClickJect (abatacept) 125 mg subcut QWEEK NS oxybutynin chloride ER 10 mg PO DAILY 90 days pregabalin 150 mg PO TID 90 days ropinirole 2 mg PO TID 90 days spironolactone TAKE 1 TABLET BY MOUTH DAILY walker daily use (rolling sitting walker-bariatric size needed) HPI Comments Details: 67-year-old male with seronegative RA returns for follow-up. He has been using Orencia subcutaneously for the last 6-8 weeks. He states that it provides some relief that lasts 2-3 days. About 20% improvement in his ankle, knee and hip pain. Unfortunately does not last long enough. Continues to have diffuse joint pain Initial history: This is a 67-year-old male presents for evaluation of multiple joint pain. Patient states that he has diffuse pain everywhere. Including neck, shoulders, hands, knees, ankles and feet. States that he had left knee replacement 10 years ago. He has severe right knee osteoarthritis and receives periodic steroid injections which helped for 1 or 2 months. States that he has severe bilateral hand stiffness. It lasts all day. Associated with swelling. He can hardly make a fist. States that he used to take naproxen which was quite helpful for all his joint pain but he is no longer able to take it due to being on Eliquis for AFib Of note patient has restrictive lung disease and is on home oxygen. He also has a CPAP machine for sleep apnea [facility] Medical History Osteoarthritis of right knee Melanoma History of cardioversion Hereditary lymphedema Venous insufficiency Morbid obesity Lymphedema COPD (chronic obstructive pulmonary disease) Sensory neuropathy COVID-19 Respiratory failure with hypoxia Restrictive lung disease COPD (chronic obstructive pulmonary disease) JEFFRY on CPAP MATUTE (dyspnea on exertion) Chronic cystitis Bladder outlet obstruction Restless leg syndrome Traumatic complete tear of right rotator cuff Injury of right rotator cuff History of diverticulitis History of umbilical hernia Surgical History Hx of colonoscopy History of appendectomy History of arthroscopy of left knee Family History Father Arthritis Diabetes Mother Arthritis Kidney stones Family/Other Arthritis Sister No problems noted. Sister No problems noted. Son No problems noted. Social History Household Members: Spouse Household Members Other:: Floridalma Housing: Condominium Do you presently have visiting nurse or other home services: No Alcohol intake: current Alcohol intake frequency: 0-2 drinks per day Alcohol type: beer Comment: refusing bed alarm Patient Tobacco Use Status: Former Tobacco user Tobacco use type: Cigarette Cigarette Packs Per Day: 1 Cigarettes Per Day: 20.0 Years Smoked: 30 years e-Cigarette/Vaping Use: Never Used Second Hand Smoke Exposure: No Substance Use Type: Marijuana Advance Directives Date on File: 05/16/20 service: No Current occupational status: retired 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 Cognitive needs: No Hearing needs: No Vision needs: No Review of Systems Musc Reports arthralgias, Reports joint swelling and Reports stiffness Physical Exam Vital Signs: Last Vital Signs Pulse 87 07/29/23 09:44 BP 142/74 H 07/29/23 09:44 BMI result Body Mass Index 56.1 Const General: cooperative, healthy appearing and comfortable Nutritional Appearance: obese morbidly obese Orientation/consciousness: patient oriented x3 Limitations: no limitations HEENT Head: Yes normocephalic and Yes atraumatic Mouth: moist mucous membranes Resp Effort & Inspection: normal respiratory effort and able to speak in complete sentences Skin Other: Erythema of both ankles likely due to venous stasis Neuro General: patient oriented x3 Extrem Other: Bilateral wrist swelling and tenderness to palpation and pain with flexion and extension Multiple swollen and tender MCPs bilaterally Multiple swollen and tender PIP is bilaterally No DIP tenderness bilaterally Assessment & Plan Assessment & Plan (1) Seronegative rheumatoid arthritis: Comment: -ve RF -ve CCP Orencia 05/2023 Code(s): M06.00 - Rheumatoid arthritis without rheumatoid factor, unspecified site Category: Medical Plan: This is a 68-year-old male with seronegative RA returns for follow-up. He started Orencia 6-8 weeks ago. Feels about 20% improvement that lasts 2-3 days. On exam he continues to have multiple swollen and tender joints. Add prednisone 5 mg daily Labs before next visit in 2 months. If no improvement. 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 Specifically including risk of infection. Advised patient to call the clinic if he develops any signs of fever or infection. Orencia to be held until infection resolves. He also mentions history of melanoma. Discussed risks of increased malignancy while on Orencia. He follows up yearly with Dermatology. Plan I spent 30 minutes reviewing patient's chart, evaluating patient, ordering diagnostic workup, counseling patient and documenting in the chart Orders: Orders 2 Comprehensive Met. Panel 2 Months M06.00 - Rheumatoid arthritis without rheumatoid factor, unspecified site C Reactive Protein 2 Months M06.00 - Rheumatoid arthritis without rheumatoid factor, unspecified site Hemoglobin A1c 2 Months E66.01 - Morbid (severe) obesity due to excess calories Complete Blood Count Auto Diff 2 Months M06.00 - Rheumatoid arthritis without rheumatoid factor, unspecified site Erythrocyte Sedimentation Rate 2 Months M06.00 - Rheumatoid arthritis without rheumatoid factor, unspecified site Medications: Changed 2 From prednisone Take 4 tabs daily for 2 weeks, 3 tabs daily for 2 weeks then remain on 2 tabs daily 158 tabs 0RF To prednisone 5 mg PO DAILY 90 tabs 0RF Coding Level of Care Code Est Pt Level 4 (18422) Diagnoses Seronegative rheumatoid arthritis M06.00 High risk medication use Z79.899
== END 2023-07-29 10:13 | disposition home or self-care (01) ==
PROVIDERS: PCP Nurse Practitioner Family; Visit Provider Student in an Organized Health Care Education/Training Program
DX: M06.00 Rheumatoid arthritis without rheumatoid factor, unspecified site (principal); Z79.899 Other long term (current) drug therapy
CPT/HCPCS: 99214

== ENCOUNTER → 2023-07-29 09:34 | Outpatient (BNVA) | payer MEDICARE, SELFPAY | PROVIDERS: PCP Nurse Practitioner Family; Visit Provider Student in an Organized Health Care Education/Training Program | DX: M06.00 Rheumatoid arthritis without rheumatoid factor, unspecified site (principal); G47.33 Obstructive sleep apnea (adult) (pediatric); J98.4 Other disorders of lung; Z99.89 Dependence on other enabling machines and devices; Z99.81 Dependence on supplemental oxygen; Z79.899 Other long term (current) drug therapy | CPT/HCPCS: 99212 ==

== ENCOUNTER 2023-08-12 14:43 | Outpatient (AMB) | payer MEDICARE, SELFPAY ==
--- NOTE | 2023-08-12 14:47 | A.OFFVIS_ITS ---
Vital Signs 08/12/23 14:48 Height 6 ft 4 in Weight 460 lb BMI 56.0 Intake Visit Reasons: 1 year follow up LE pain Intake Note: Patient presents for 1 year up patient legs very scary looking, they're scaly, they hurt and also feel very heavy.patient mil missed a [id number] appoinements. Allergies No Known Allergies [No Known Allergies*] Allergy (Verified 08/12/23 14:51) HPI HPI 1 year follow up LE pain: Details: Morbidly obese 68-year-old gentleman presents for follow-up regarding swollen lower extremities. He has significantly swollen lower extremities we developed dry skin hyperkeratosis and there is even serous drainage from that. He actually has a flexi touch advance pump system which she has been not as compliant with. He has been moved up to 60 mg of Lasix which has not provided any significant improvement as well. Of note he is put on 70 lb in the last 2 years by our records. [facility], [facility] Medical History Osteoarthritis of right knee Melanoma History of cardioversion Hereditary lymphedema Venous insufficiency Morbid obesity Lymphedema COPD (chronic obstructive pulmonary disease) Sensory neuropathy COVID-19 Respiratory failure with hypoxia Restrictive lung disease COPD (chronic obstructive pulmonary disease) JEFFRY on CPAP MATUTE (dyspnea on exertion) Chronic cystitis Bladder outlet obstruction Restless leg syndrome Traumatic complete tear of right rotator cuff Injury of right rotator cuff History of diverticulitis History of umbilical hernia Surgical History Hx of colonoscopy History of appendectomy History of arthroscopy of left knee Family History Father Arthritis Diabetes Mother Arthritis Kidney stones Family/Other Arthritis Sister No problems noted. Sister No problems noted. Son No problems noted. Social History Household Members: Spouse Household Members Other:: Floridalma Housing: Condominium Do you presently have visiting nurse or other home services: No Alcohol intake: current Alcohol intake frequency: 0-2 drinks per day Alcohol type: beer Comment: refusing bed alarm Patient Tobacco Use Status: Former Tobacco user Tobacco use type: Cigarette Cigarette Packs Per Day: 1 Cigarettes Per Day: 20.0 Years Smoked: 30 years e-Cigarette/Vaping Use: Never Used Second Hand Smoke Exposure: No Substance Use Type: Marijuana Advance Directives Date on File: 05/16/20 service: No Current occupational status: retired 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 Cognitive needs: No Hearing needs: No Vision needs: No Review of Systems Const Reports as per HPI ENT Reports no additional complaints Card Denies chest pain, Denies chest pain at rest and Denies chest pain with activity Resp Denies chest congestion and Denies cough GI Reports no additional complaints Musc Details: pain over varicosities, aching of lower extremities, swelling, cramping, heaviness and tiredness, itching Denies abnormal gait Skin/Breast Reports pruritus and Denies wounds Neuro Reports no additional complaints and Denies abnormal gait Psych Denies no additional complaints Physical Exam Vital Signs: BMI result Body Mass Index 56.0 Const General: cooperative, healthy appearing and comfortable Orientation/consciousness: oriented to person, oriented to place and oriented to time Neck Carotids: no bruits Chest Chest palpation & inspection: normal inspection of the chest and normal palpation of entire chest wall Resp Effort & Inspection: normal respiratory effort and able to speak in complete sentences Cardio Rate: regular rate Heart sounds: S1 normal heart sound present and S2 normal heart sound present Peripheral pulses: Peripheral pulses 2+ throughout GI Inspection: Yes normal to inspection Skin Other: +2 edema, hyperkeratosis CEAP Classification C4 - skin color changes Ep - Etiology Primary As - superficial veins P - reflux General skin exam: dry skin Neuro General: oriented to person, oriented to place and oriented to time Extrem Right lower extremity: full ROM, normal capillary refill and edema Left lower extremity: full ROM, normal capillary refill and edema Psych Mental Status: mental status grossly normal Assessment & Plan Assessment & Plan (1) Varicose veins of left lower extremity with inflammation: Code(s): I83.12 - Varicose veins of left lower extremity with inflammation Category: Medical Plan: Will re-evaluate his venous status to see where that is at. (2) Lymphedema: Comment: IT IS A CHRONIC PROBLEM, followed by wound care and vascular Code(s): I89.0 - Lymphedema, not elsewhere classified Category: Medical Plan: He does have an element of lymphedema. A main contributing factor is his morbid obesity. He has up to a BMI of 56 and has put on nearly 70 lb in 2 years. We did discuss risk factor modification inclusive of weight loss. In addition he needs to be more compliant with his lymphedema pumps. I would recommend at least 1 hour of use daily. In addition he needs to ambulate even though he requires the use of walker. We will re-evaluate his venous status. He will follow up with us after testing. Thank you for allowing us to assist in his care. Orders: Orders US venous duplex LE BI 1 Week I83.12 - Varicose veins of left lower extremity with inflammation Coding Level of Care Code Est Pt Level 4 (12986) Diagnoses Varicose veins of left lower extremity with inflammation I83.12 Lymphedema I89.0
[2023-08-12 14:48] VITALS: BMI 56.0
== END 2023-08-12 15:25 | disposition home or self-care (01) ==
PROVIDERS: PCP Nurse Practitioner Family; Visit Provider Surgery Vascular Surgery
DX: I83.12 Varicose veins of left lower extremity with inflammation (principal); I89.0 Lymphedema, not elsewhere classified
CPT/HCPCS: 99214

== ENCOUNTER → 2023-08-12 14:43 | Outpatient (BNVA) | payer MEDICARE, SELFPAY | PROVIDERS: PCP Nurse Practitioner Family; Visit Provider Surgery Vascular Surgery | DX: I83.12 Varicose veins of left lower extremity with inflammation (principal); I89.0 Lymphedema, not elsewhere classified; E66.01 Morbid (severe) obesity due to excess calories; Z68.43 Body mass index [BMI] 50.0-59.9, adult | CPT/HCPCS: 99212 ==

== ENCOUNTER 2023-09-11 10:16 | Outpatient (REF) | payer MEDICARE, SELFPAY ==
--- NOTE | ~2023-09-11 | US_ITS ---
EXAMINATION: US LOWER EXTREMITY VENOUS (REFLUX EXAM), BILATERAL CLINICAL INDICATION: Varicose veins of left lower extremity with inflammation COMPARISON: Multiple prior venous duplex ultrasound dated 09/04/2020 TECHNIQUE: Color flow triplex imaging and compression Doppler was performed to evaluate both the deep and the superficial systems bilaterally. To evaluate the superficial system, the examination was performed in the upright position. Color-flow Doppler ultrasound and compression ultrasound were utilized. In addition, maneuvers were utilized to demonstrate reflux. FINDINGS: 1. DEEP VENOUS ULTRASOUND OF THE RIGHT LOWER EXTREMITY: Common Femoral Vein: Compressible, normal respiratory variation and augmented flow. Femoral Vein: Compressible, normal color flow and augmentation. Popliteal Vein: Compressible, normal augmentation. Deep Reflux: There is no evidence of reflux in the deep system in either the common femoral vein, superficial femoral or the popliteal vein. There is no evidence of a Caraballo's cyst. 2. SUPERFICIAL ULTRASOUND WITH DOPPLER OF RIGHT LOWER EXTREMITY: GREAT SAPHENOUS VEIN: Saphenofemoral Junction: 1.0 cm; Reflux: 1072 ms Proximal Thigh: 0.6 cm; Reflux: 0 ms Mid Thigh: 0.3 cm; Reflux: 0 ms The right great saphenous vein is not visualized from the distal thigh to the knee in keeping with prior treatment. Below Knee: 0.3 cm; Reflux: 3332 ms Mid Calf: Not visualized Ankle: 0.2 cm; Reflux: 0 ms SMALL SAPHENOUS VEIN: Saphenopopliteal Junction: 0.7 cm; Reflux: 0 ms Proximal: 0.5 cm; Reflux: 0 ms Distal: 0.3 cm; Reflux: 0 ms PERFORATORS: None visualized. VARICOSITIES: Location: Proximal thigh Size: 0.5; Reflux: 0 ms Location: Mid thigh Size: 0.5; Reflux: 2480 ms 3. DEEP VENOUS ULTRASOUND OF THE LEFT LOWER EXTREMITY: Common Femoral Vein: Compressible, normal respiratory variation and augmented flow. Femoral Vein: Compressible, normal color flow and augmentation. Popliteal Vein: Compressible, normal augmentation. Deep Reflux: There is no evidence of reflux in the deep system in either the common femoral vein, superficial femoral or the popliteal vein. There is no evidence of a Caraballo's cyst. 4. SUPERFICIAL ULTRASOUND WITH DOPPLER OF LEFT LOWER EXTREMITY: GREAT SAPHENOUS VEIN: Saphenofemoral Junction: 1.0 cm; Reflux: 0 ms Proximal Thigh: 0.7 cm; Reflux: 2636 ms The right great saphenous vein is not visualized from the mid thigh to the distal thigh in keeping with prior treatment. At Knee: 0.6 cm; Reflux: 0 ms Below Knee: 0.4 cm; Reflux: 0 ms Mid Calf: 0.3 cm; Reflux: 0 ms Ankle: not visualized SMALL SAPHENOUS VEIN: Saphenopopliteal Junction: 0.6 cm; Reflux: 0 ms Proximal: Not visualized Distal: 0.3 cm; Reflux: 0 ms PERFORATORS: None visualized. VARICOSITIES: Location: Proximal thigh Size: 0.4; Reflux: 1412 ms Location: Mid thigh Size: 0.4; Reflux: 0 ms Location: Distal thigh Size: 0.6; Reflux: 3172 ms Location: Proximal calf Size: 0.4; Reflux: 448 ms US/US venous duplex LE BI IMPRESSION: 1. No evidence of deep venous thrombosis or reflux. 2. Multifocal areas of recanalization of the previously treated right great saphenous vein at the level of the proximal calf and ankle. There is reflux in the recanalized proximal calf segment measuring 3332 ms. There is also reflux at the saphenofemoral junction measuring 1072 ms. 3. Recanalization of the previously treated left great saphenous vein from the level of the knee to the mid calf without reflux appreciated. Focal area of reflux in the left great saphenous vein at the level of the proximal thigh measures 2636 ms. 4. Competent bilateral small saphenous veins. 5. Bilateral lower extremity varicose veins are visualized, worse on the left, many of which demonstrate reflux up to 2480 ms on the right and 3172 ms on the left.
== END 2023-09-11 10:17 | disposition home or self-care (01) ==
LOC: HO.US 10:16
PROVIDERS: PCP Nurse Practitioner Family; Visit Provider Surgery Vascular Surgery
DX: I83.12 Varicose veins of left lower extremity with inflammation (principal)
CPT/HCPCS: 93970

== ENCOUNTER 2023-09-23 09:27 | Outpatient (AMB) | payer MEDICARE, SELFPAY ==
[2023-09-23 09:29] VITALS: BP 140/80; PULSE 76; O2SAT 96; BMI 57.0
--- NOTE | 2023-09-23 09:29 | MHC.PC.OV ---
Vital Signs 09/23/23 09:29 Height 6 ft 4 in Weight 468 lb BMI 57.0 BP 140/80 H Blood Pressure Location Rt brachial Position Sitting Pulse 76 Pulse Source Pulse Oximeter Pulse Oximetry (%) 96 Oxygen Delivery Method Room Air Intake Visit Reasons: 3-4 month follow up Intake Note: pt is here for 3 month follow up, patient has list of complaints on paper with him and has concerns about his legs Patient Relations Director Required: No Accompanied by: Self / Same As Patient Allergies No Known Allergies [No Known Allergies*] Allergy (Verified 09/23/23 09:30) Tobacco use date assessed: 05/13/23 Fall risk assessment: No Falls in past year Last assessed Fall Risk: 09/23/23 Dental Screening Dental Screen Date: 05/13/23 HPI 3-4 month follow up HPI Details Pt has a hx of elevated fasting blood sugar. Pt is morbidly obese. He also has severe arthritis to his knees and chronic pain issues. Pt is unable to exercise due to pain. BMI is currently 57.0, using a rolling walker just to get around the house, and has COPD (with severe dypnea on exertion, using O2), CHF, sleep apnea, the grossly excessive weight affects all of these. He has to sleep in a recliner, due to these comorbidities . He would truly benefit from a GLP-1 agonist to assist with weight loss. I will try to resend this. Denies fever, chills, and dizziness. Pt reports right breast tenderness. Will order US and mammo. [facility] Medical History Osteoarthritis of right knee Melanoma History of cardioversion Hereditary lymphedema Venous insufficiency Morbid obesity Lymphedema COPD (chronic obstructive pulmonary disease) Sensory neuropathy COVID-19 Respiratory failure with hypoxia Restrictive lung disease COPD (chronic obstructive pulmonary disease) JEFFRY on CPAP MATUTE (dyspnea on exertion) Chronic cystitis Bladder outlet obstruction Restless leg syndrome Traumatic complete tear of right rotator cuff Injury of right rotator cuff History of diverticulitis History of umbilical hernia Surgical History Hx of colonoscopy History of appendectomy History of arthroscopy of left knee Family History Father Arthritis Diabetes Mother Arthritis Kidney stones Family/Other Arthritis Sister No problems noted. Sister No problems noted. Son No problems noted. Social History Household Members: Spouse Household Members Other:: Floridalma Housing: Condominium Do you presently have visiting nurse or other home services: No Alcohol intake: current Alcohol intake frequency: 0-2 drinks per day Alcohol type: beer Comment: refusing bed alarm Patient Tobacco Use Status: Former Tobacco user Tobacco use type: Cigarette Cigarette Packs Per Day: 1 Cigarettes Per Day: 20.0 Years Smoked: 30 years e-Cigarette/Vaping Use: Never Used Second Hand Smoke Exposure: No Substance Use Type: Marijuana Advance Directives Date on File: 05/16/20 service: No Current occupational status: retired 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 1. Little interest or pleasure in doing things: several days 2. Feeling down, depressed, or hopeless: several days 3. Trouble falling or staying asleep, or sleeping too much: more than half the days 4. Feeling tired or having little energy: more than half the days 5. Poor appetite or overeating: nearly every day 6. Feeling bad about yourself - or that you are a failure or have let yourself or your family down: several days 7. Trouble concentrating on things, such as reading the newspaper or watching television: not at all 8. Moving or speaking so slowly that other people could have noticed. Or the opposite - being so fidgety or restless that you have been moving around a lot more than usual: not at all 9. Thoughts that you would be better off or of hurting yourself in some way: not at all Total score: 10 Depression Screening Interpretation: Positive Depression Screening Done: Yes 66226 - PHQ-9 Billing: Yes Source: Developed by Drs. Marc Victoria, Karen Nguyen, Tristan Dominguez and colleagues, with an educational juan from [employer]. Thrive Questionnaire Date Thrive assessed: 09/16/23 I am a: Patient What is your living situation today?: I have a steady place to live Within the past 12 months, did the food you bought not last and you didn't have the money to get more?: Never true Within the past 12 months, did you worry whether your food would run out before you got money to buy more?: Sometimes True Do you have trouble paying for medicines?: Yes Do you have trouble getting transportation to medical appointments?: No Do you have trouble paying your heating and electricity bill?: Yes Do you have trouble taking care of your child, family member or friend?: No Do you have trouble with day-to-day activities such as bathing, preparing meals, shopping, managing finances, etc.?: Yes Are you currently unemployed and looking for a job?: No Are you interested in more education?: No Please select the resources that you would like help with: Housing/Correction, Food, Paying for medicine, Utilities and Daily support Currently or been in a relationship where the following occur: No concerns reported THRIVE Score: 2 AUDIT C Alcohol Use Questionnaire (AUDIT-C) 1. How often do you have a drink containing alcohol?: 4 or more times a week 2. How many drinks containing alcohol do you have on a typical day when you are drinking?: 1 or 2 3. How often do you have six or more drinks on one occasion?: Less than monthly Total Score: 5 Score Reviewed/Action Taken: Yes KIRA-7 AMB Questionnaire KIRA-7 Date KIRA - 7 assessed: 09/23/23 Feeling nervous, anxious, or on edge: 0 = Not at all Not being able to stop or control worryin = Not at all Worrying too much about different things: 0 = Not at all Trouble relaxin = Not at all Being so restless that it is hard to sit still: 0 = Not at all Becoming easily annoyed or irritable: 0 = Not at all Feeling afraid as if something awful might happen: 0 = Not at all Total KIRA-7 score (0-4 normal; 5-9 mild; 10-14 moderate; 15-21 severe): 0 Source: Developed by Drs. Marc Victoria, Karen Nguyen, Tristan Dominguez and colleagues, with an educational juan from [employer]. KIRA-7 Assessment Billing KIRA-7 Assessment Tool: KIRA-7 Assessment 12698 Review of Systems Const Reports as per HPI Physical exam (Primary Care) Vital Signs: Last Vital Signs Pulse 76 09/23/23 09:29 BP 140/80 H 09/23/23 09:29 Pulse Ox 96 09/23/23 09:29 Oxygen Delivery Method Room Air 09/23/23 09:29 BMI result Body Mass Index 57.0 Tobacco/Smoking Status: Tobacco use Status Tobacco use date assessed 05/13/23 09/23/23 09:31 Patient Tobacco Use Status Former Tobacco user 09/23/23 09:31 Tobacco use type Cigarette 09/23/23 09:31 e-Cigarette/Vaping Use Never Used 09/23/23 09:31 PHQ-9: PHQ-9 Score PHQ-9: Total score 10 09/23/23 09:55 Depression Screening Interpretation: Positive Thrive Assessment: Date of Thrive Assessment Date Thrive assessed 09/16/23 09/23/23 09:31 Currently or been in a relationship where the following occur: No concerns reported Const Other: using a rolling walker, on O2 General: cooperative Nutritional Appearance: obese morbidly obese Orientation/consciousness: patient oriented x3 Chest Other: tenderness with palpation of right breast around areola, palpable fatty tissue noted Resp Effort & Inspection: normal respiratory effort Auscultation: diminished lung sounds Cardio Rate: regular rate Rhythm: regular rhythm Heart sounds: S1 normal heart sound present and S2 normal heart sound present Neuro General: patient oriented x3 Extrem Other: +1-2 edema to BLE, richy wraps in place Psych Appearance: grossly normal Mental Status: mental status grossly normal Speech and movement: Normal speech and movement present Affect: normal affect Attitude: cooperative Thought process: Normal thought process present Thought content: Normal thought content present Insight: Good insight present (Psych) Judgement: Good judgement present (Psych) Assessment and Plan Assessment & Plan (1) Breast tenderness in male: Code(s): N64.4 - Mastodynia Plan: Mammo and US ordered (2) Weakness of both lower limbs: Code(s): R29.898 - Other symptoms and signs involving the musculoskeletal system Plan: Wegovy sent (3) Chronic lower back pain: Code(s): M54.50 - Low back pain, unspecified; G89.29 - Other chronic pain Plan: Wegovy sent (4) Myofascial pain syndrome: Code(s): M79.18 - Myalgia, other site Plan: Wegovy sent (5) COPD (chronic obstructive pulmonary disease): Comment: COPD/reactive airways, sees pulmonary Code(s): J44.9 - Chronic obstructive pulmonary disease, unspecified Plan: Wegovy sent (6) Morbid obesity: Code(s): E66.01 - Morbid (severe) obesity due to excess calories Plan: Wegovy sent (7) MATUTE (dyspnea on exertion): Code(s): R06.00 - Dyspnea, unspecified Plan: Wegovy sent Plan The patient agreed to the use of a mobile paramedical examiner for this encounter. Scribed for TEZ Goldstein-BC by Temitope Navarro mobile paramedical examiner, on 09/23/2023 at 09:55 EST. Orders: Orders MM diagnostic mammo unilat RT Today N64.4 - Mastodynia US breast RT complete Today N64.4 - Mastodynia Medications: New semaglutide (weight loss) (Wegovy) administer weeks 1 through 4 of therapy 0.25 mg (0.5 mL) subcut QWEEK 30 days 2.5 mL 0RF Coding Level of Care Code Est Pt Level 3 (34323) Diagnoses Breast tenderness in male N64.4 Weakness of both lower limbs R29.898 Chronic lower back pain M54.50; G89.29 Myofascial pain syndrome M79.18 COPD (chronic obstructive pulmonary disease) J44.9 Morbid obesity E66.01 MATUTE (dyspnea on exertion) R06.00 Additional Codes KIRA-7 Assessment Billing - KIRA-7 Assessment Tool: KIRA-7 Assessment 48191 ([id number])
== END 2023-09-23 10:55 | disposition home or self-care (01) ==
PROVIDERS: PCP Nurse Practitioner Family; Visit Provider Nurse Practitioner Family
DX: N64.4 Mastodynia (principal); E66.01 Morbid (severe) obesity due to excess calories; J44.9 Chronic obstructive pulmonary disease, unspecified; Z68.43 Body mass index [BMI] 50.0-59.9, adult; R29.898 Other symptoms and signs involving the musculoskeletal system; M54.50 Low back pain, unspecified; G89.29 Other chronic pain; M79.18 Myalgia, other site; R06.00 Dyspnea, unspecified
CPT/HCPCS: 99213

== ENCOUNTER 2023-09-29 11:12 | Outpatient (AMB) | payer MEDICARE, SELFPAY ==
--- NOTE | 2023-09-29 11:14 | MHC.OFFVIS ---
Vital Signs 09/29/23 11:21 Height 6 ft 4 in Weight 470 lb 0.408 oz BMI 57.2 BP 140/74 H Blood Pressure Location Lt brachial Position Sitting Pulse 81 Pulse Source Pulse Oximeter Pulse Oximetry (%) 92 Oxygen Delivery Method Room Air Intake Visit Reasons: RA Intake Note: Patient presents for RA. Taking 10 mg daily of Prednisone. Allergies No Known Allergies [No Known Allergies*] Allergy (Verified 09/29/23 11:19) Medication List - Last Reconciled 09/29/23 by Kristi Acosta MD albuterol sulfate 90 mcg/actuation 2 puffs PO Q6H PRN amiodarone 200 mg PO DAILY Anoro Ellipta 62.5-25 mcg/actuation (umeclidinium-vilanterol) 1 inh PO DAILY NS apixaban (Eliquis) 5 mg PO BID atorvastatin 80 mg PO BEDTIME 90 days doxazosin 8 mg PO BEDTIME 90 days duloxetine 60 mg PO DAILY finasteride 5 mg PO DAILY 90 days furosemide (Lasix) 40 mg PO DAILY methimazole 5 mg PO DAILY Orencia ClickJect (abatacept) 125 mg subcut QWEEK NS oxybutynin chloride ER 10 mg PO DAILY 90 days prednisone 5 mg PO DAILY pregabalin 150 mg PO TID 90 days ropinirole 2 mg PO TID 90 days semaglutide (weight loss) (Wegovy) 0.25 mg (0.5 mL) subcut QWEEK 30 days spironolactone TAKE 1 TABLET BY MOUTH DAILY walker daily use (rolling sitting walker-bariatric size needed) HPI Comments Details: 68-year-old male with seronegative RA returns for follow-up. He has been using Orencia subcutaneously for the last 4 months. He states that he does not feel it is helping at all. Has to have diffuse joint pain. Patient misunderstood and has been taking prednisone 10 mg daily rather than 5 mg daily as prescribed. He has gained some weight on prednisone. Also does not feel the prednisone is providing any relief Initial history: This is a 67-year-old male presents for evaluation of multiple joint pain. Patient states that he has diffuse pain everywhere. Including neck, shoulders, hands, knees, ankles and feet. States that he had left knee replacement 10 years ago. He has severe right knee osteoarthritis and receives periodic steroid injections which helped for 1 or 2 months. States that he has severe bilateral hand stiffness. It lasts all day. Associated with swelling. He can hardly make a fist. States that he used to take naproxen which was quite helpful for all his joint pain but he is no longer able to take it due to being on Eliquis for AFib Of note patient has restrictive lung disease and is on home oxygen. He also has a CPAP machine for sleep apnea [facility] [place] Medical History Osteoarthritis of right knee Melanoma History of cardioversion Hereditary lymphedema Venous insufficiency Morbid obesity Lymphedema COPD (chronic obstructive pulmonary disease) Sensory neuropathy COVID-19 Respiratory failure with hypoxia Restrictive lung disease COPD (chronic obstructive pulmonary disease) JEFFRY on CPAP MATUTE (dyspnea on exertion) Chronic cystitis Bladder outlet obstruction Restless leg syndrome Traumatic complete tear of right rotator cuff Injury of right rotator cuff History of diverticulitis History of umbilical hernia Surgical History Hx of colonoscopy History of appendectomy History of arthroscopy of left knee Family History Father Arthritis Diabetes Mother Arthritis Kidney stones Family/Other Arthritis Sister No problems noted. Sister No problems noted. Son No problems noted. Social History Household Members: Spouse Household Members Other:: Floridalma Housing: [facility] Do you presently have visiting nurse or other home services: No Alcohol intake: current Alcohol intake frequency: 0-2 drinks per day Alcohol type: beer Comment: refusing bed alarm Patient Tobacco Use Status: Former Tobacco user Tobacco use type: Cigarette Cigarette Packs Per Day: 1 Cigarettes Per Day: 20.0 Years Smoked: 30 years e-Cigarette/Vaping Use: Never Used Second Hand Smoke Exposure: No Substance Use Type: Marijuana Advance Directives Date on File: 05/16/20 service: No Current occupational status: retired 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 Cognitive needs: No Hearing needs: No Vision needs: No Review of Systems Musc Reports arthralgias, Reports joint swelling and Reports stiffness Physical Exam Vital Signs: Last Vital Signs Pulse 81 09/29/23 11:21 BP 140/74 H 09/29/23 11:21 Pulse Ox 92 08/12/24 11:21 Oxygen Delivery Method Room Air 09/29/23 11:21 BMI result Body Mass Index 57.2 Const General: cooperative, healthy appearing and comfortable Nutritional Appearance: obese morbidly obese Orientation/consciousness: patient oriented x3 Limitations: no limitations HEENT Head: Yes normocephalic and Yes atraumatic Mouth: moist mucous membranes Resp Effort & Inspection: normal respiratory effort and able to speak in complete sentences Skin Other: Erythema of both ankles likely due to venous stasis Neuro General: patient oriented x3 Extrem Other: Bilateral wrist swelling and tenderness to palpation and pain with flexion and extension Multiple swollen and tender MCPs bilaterally Multiple swollen and tender PIP is bilaterally No DIP tenderness bilaterally Assessment & Plan Assessment & Plan (1) Seronegative rheumatoid arthritis: Comment: -ve RF -ve CCP Orencia 05/2023 DC 09/2023 ineffective Code(s): M06.00 - Rheumatoid arthritis without rheumatoid factor, unspecified site Category: Medical Plan: This is a 68-year-old male with seronegative RA returns for follow-up. Has been taking Orencia for the last 4 months without improvement. Continues to have multiple swollen tender joints. We will need to change DMARDs. Discussed risks and benefits of Actemra. Patient agreed to proceed. We will start prior authorization for Actemra Given patient's multiple comorbidities and multiple medication interactions multiple DMARDs would be contraindicated Can not get methotrexate and leflunomide as patient is morbidly obese, has restrictive lung disease as well as COPD on home oxygen and his risk of respiratory compromise if he develops methotrexate/leflunomide induced pneumonitis is quite high. He is also on amiodarone and there is risk of added hepatotoxicity given that patient is on amiodarone Hydroxychloroquine is relative contraindicated as patient has AFib on amiodarone and there is risk of QTC prolongation and worsening of arrhythmias Sulfasalazine can also cause hepatotoxicity when added to amiodarone TNF inhibitors such as adalimumab, etanercept and others would be contraindicated due to his history of heart failure He failed Orencia Patient misunderstood and took prednisone 10 mg daily rather than 5 mg daily as prescribed. 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 Specifically including risk of infection. Advised patient to call the clinic if he develops any signs of fever or infection. Actemra to be held until infection resolves. He also mentions history of melanoma. Discussed risks of increased malignancy while on Orencia. He follows up yearly with Dermatology. Plan I spent 30 minutes reviewing patient's chart, evaluating patient, ordering diagnostic workup, counseling patient and documenting in the chart Orders: Orders Complete Blood Count Auto Diff 2 Months M06.00 - Rheumatoid arthritis without rheumatoid factor, unspecified site Comprehensive Met. Panel 2 Months M06.00 - Rheumatoid arthritis without rheumatoid factor, unspecified site C Reactive Protein 2 Months M06.00 - Rheumatoid arthritis without rheumatoid factor, unspecified site Erythrocyte Sedimentation Rate 2 Months M06.00 - Rheumatoid arthritis without rheumatoid factor, unspecified site Medications: Discontinued Orencia ClickJect (abatacept) Discontinued Reason: Doctor's Order 125 mg subcut QWEEK 4 mL 2RF NS Coding Level of Care Code Est Pt Level 4 (12752) Diagnoses Seronegative rheumatoid arthritis M06.00 High risk medication use Z79.899
[2023-09-29 11:21] VITALS: BP 140/74; PULSE 81; O2SAT 92; BMI 57.2
== END 2023-09-29 13:32 | disposition home or self-care (01) ==
PROVIDERS: PCP Nurse Practitioner Family; Visit Provider Student in an Organized Health Care Education/Training Program
DX: M06.00 Rheumatoid arthritis without rheumatoid factor, unspecified site (principal); Z79.899 Other long term (current) drug therapy
CPT/HCPCS: 99214

== ENCOUNTER → 2023-09-29 11:12 | Outpatient (BNVA) | payer MEDICARE, SELFPAY | PROVIDERS: PCP Nurse Practitioner Family; Visit Provider Student in an Organized Health Care Education/Training Program | DX: M06.00 Rheumatoid arthritis without rheumatoid factor, unspecified site (principal); Z79.899 Other long term (current) drug therapy | CPT/HCPCS: 99212 ==

== ENCOUNTER 2023-10-06 12:25 | Outpatient (REF) | payer MEDICARE, SELFPAY ==
--- NOTE | ~2023-10-06 | US_ITS ---
EXAMINATION: US DIAGNOSTIC ULTRASOUND BREAST, RIGHT CLINICAL INFORMATION: 68-year-old male complaining of retroareolar right breast pain. No palpable abnormalities. COMPARISON: 05/01/2023, left breast ultrasound for complaint of left breast retroareolar pain and palpable abnormality 4-5 o'clock axis just lateral to the nipple. Bilateral diagnostic mammography performed 05/01/2023. TECHNIQUE: Ultrasound of the right breast is performed with real-time navarrete scale imaging and color Doppler. Attention was given to the retroareolar region right breast, with Limited images of the left retroareolar region for comparison imaging. FINDINGS: There is moderate left and mild right male gynecomastia with retroareolar tissue development. No masses, abnormal shadowing, cystic findings, or edema within the soft tissue planes. US/US breast RT limited mamm only IMPRESSION: Mild right retroareolar male gynecomastia, benign. Recommend clinical management. ASSESSMENT: BI-RADS 2 - Benign Findings RECOMMENDATION: 1. Patient should be managed based on the clinical impression. This patient's information was entered into a reminder system with a target due date for their next mammogram.
== END 2023-10-06 12:26 | disposition home or self-care (01) ==
LOC: HO.MAMMO 12:25
PROVIDERS: PCP Nurse Practitioner Family; Visit Provider Nurse Practitioner Family
DX: N64.4 Mastodynia (principal)
CPT/HCPCS: 76642

== ENCOUNTER → 2023-10-06 13:00 | Outpatient (BNV) | payer MEDICARE, SELFPAY | PROVIDERS: PCP Nurse Practitioner Family; Visit Provider Radiology Diagnostic Radiology | DX: N64.4 Mastodynia (principal) | CPT/HCPCS: 76642 ==

== ENCOUNTER 2023-10-11 12:45 | Outpatient (AMB) | payer MEDICARE, SELFPAY ==
[2023-10-11 12:49] VITALS: BP 140/78; PULSE 94; O2SAT 94; BMI 57.2
--- NOTE | 2023-10-11 12:49 | MHC.OFFWIV ---
Intake Vital Signs 10/11/23 12:49 Height 6 ft 4 in Weight 470 lb BMI 57.2 BP 140/78 H Blood Pressure Location Rt brachial Position Sitting Pulse 94 Pulse Source Pulse Oximeter Pulse Oximetry (%) 94 Oxygen Delivery Method Room Air Intake Visit Reasons: EP inflamed testicles Intake Note: pt is here for inflamed testicles Patient Tobacco Use Status: Former Tobacco user Allergies No Known Allergies [No Known Allergies*] Allergy (Verified 10/11/23 12:53) Do you need a note to return to daycare/school/sports/work: No HPI HPI Comments History of Present Illness Details 68-year-old male with multiple comorbidities including CHF, atrial fibrillation, lymphedema that presents for scrotal swelling. Patient has had scrotal swelling x3 weeks. He endorses some heaviness of the scrotum particularly with walking a mild uncomfortableness but no pain, no fever, no redness warmth or skin breakdown. Thought it could be related to fluid as he retains fluid quite often. [facility] Medical History (Updated 10/11/23 @ 13:37 by AYSHA Colindres) Testicular swelling Osteoarthritis of right knee Melanoma History of cardioversion Hereditary lymphedema Venous insufficiency Morbid obesity Lymphedema COPD (chronic obstructive pulmonary disease) Sensory neuropathy COVID-19 Respiratory failure with hypoxia Restrictive lung disease COPD (chronic obstructive pulmonary disease) JEFFRY on CPAP MATUTE (dyspnea on exertion) Chronic cystitis Bladder outlet obstruction Restless leg syndrome Traumatic complete tear of right rotator cuff Injury of right rotator cuff History of diverticulitis History of umbilical hernia Surgical History Hx of colonoscopy History of appendectomy History of arthroscopy of left knee Family History Father Arthritis Diabetes Mother Arthritis Kidney stones Family/Other Arthritis Sister No problems noted. Sister No problems noted. Son No problems noted. Social History Household Members: Spouse Household Members Other:: Floridalma Housing: Condominium Do you presently have visiting nurse or other home services: No Alcohol intake: current Alcohol intake frequency: 0-2 drinks per day Alcohol type: beer Comment: refusing bed alarm Patient Tobacco Use Status: Former Tobacco user Tobacco use type: Cigarette Cigarette Packs Per Day: 1 Cigarettes Per Day: 20.0 Years Smoked: 30 years e-Cigarette/Vaping Use: Never Used Second Hand Smoke Exposure: No Substance Use Type: Marijuana Advance Directives Date on File: 05/16/20 service: No Current occupational status: retired 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 Cognitive needs: No Hearing needs: No Vision needs: No Physical Exam Vital Signs: Last Vital Signs Pulse 94 10/11/23 12:49 BP 140/78 H 10/11/23 12:49 Pulse Ox 94 10/11/23 12:49 Oxygen Delivery Method Room Air 10/11/23 12:49 BMI result Body Mass Index 57.2 Const General: cooperative, healthy appearing, no acute distress and alert Orientation/consciousness: patient oriented x3 Limitations: no limitations HEENT Head: Yes normal to inspection Ears: hearing grossly normal bilaterally General nose exam: Normal external nose present Resp Effort & Inspection: normal respiratory effort and able to speak in complete sentences Cardio Rate: regular rate Other: Significant scrotal edema no tenderness to palpation no erythema no warmth no skin breakdown. Skin General skin exam: no rashes or lesions noted Neuro General: patient oriented x3 Extrem General: Yes normal to inspection Assessment & Plan Assessment & Plan (1) Testicular swelling: Code(s): N50.89 - Other specified disorders of the male genital organs Plan: Strong suspicion that patient's testicular swelling is related to patient's fluid retention. Low suspicion for acute infectious etiology or testicular etiology. Discussed options including increasing diuretic and testicular slings for support. Patient does see his refrigeration installer October 21. At this time patient will start with the supportive jockstrap. Will reach out to patient's primary for outpatient ultrasound to rule out any other pathology. If negative patient will discuss with his refrigeration installer and PCP potential increasing diuretic. Coding Level of Care Code Est Pt Level 3 (78418) Diagnoses Testicular swelling N50.89
== END 2023-10-11 13:40 | disposition home or self-care (01) ==
PROVIDERS: PCP Nurse Practitioner Family; Visit Provider Physician Assistant
DX: N50.89 Other specified disorders of the male genital organs (principal)
CPT/HCPCS: 99213

== ENCOUNTER 2023-10-15 08:01 | Outpatient (RCR) | payer MEDICARE, SELFPAY | END 2023-12-26 15:04 | disposition home or self-care (01) | LOC: HO.WCC 08:01 | PROVIDERS: PCP Nurse Practitioner Family; Visit Provider Surgery | DX: I87.333 Chronic venous hypertension (idiopathic) with ulcer and inflammation of bilateral lower extremity (principal); L97.822 Non-pressure chronic ulcer of other part of left lower leg with fat layer exposed; L97.812 Non-pressure chronic ulcer of other part of right lower leg with fat layer exposed; S91.001A Unspecified open wound, right ankle, initial encounter; Q82.0 Hereditary lymphedema; G62.9 Polyneuropathy, unspecified; I73.9 Peripheral vascular disease, unspecified; J44.9 Chronic obstructive pulmonary disease, unspecified; X58.XXXA Exposure to other specified factors, initial encounter; Y93.9 Activity, unspecified; Y92.9 Unspecified place or not applicable; Y99.9 Unspecified external cause status; Z86.718 Personal history of other venous thrombosis and embolism; Z87.891 Personal history of nicotine dependence; Z99.81 Dependence on supplemental oxygen | CPT/HCPCS: 11042; 11045; 97597; 99212 ==

== ENCOUNTER 2023-10-17 08:03 | Outpatient (REF) | payer MEDICARE, SELFPAY ==
--- NOTE | ~2023-10-17 | US_ITS ---
EXAMINATION: US SCROTUM CLINICAL INFORMATION: Scrotal swelling. COMPARISON: None available. TECHNIQUE: A sonogram of the scrotum was performed assessing navarrete-scale appearance and color Doppler flow. Spectral Doppler analysis of the arterial and venous flow were performed in the testes bilaterally. Sonographic evaluation technically limited by patient's body habitus. FINDINGS: RIGHT: Right testicle measures 4.1 x 2.6 x 3.8 cm, volume 21.2 mL. No focal testicular parenchymal lesions are visualized. Spectral Doppler analysis of the arterial and venous flow is normal in the right testis. Right epididymal head cyst measures 6 x 7 x 9 mm. Large right hydrocele. Right epididymal Doppler flow is normal. LEFT: Left testicle measures 3.3 x 1.6 x 2.9 cm, volume 8.0 mL. Heterogeneous parenchyma with asymmetrically decreased size. Spectral Doppler analysis of the arterial and venous flow is decreased in the left testis. Left epididymal head cyst measures 4 x 2 x 6 mm. Moderate left hydrocele. Left epididymal Doppler flow is normal. Extensive scrotal skin thickening and subcutaneous edema. US/US scrotum IMPRESSION: Left testicle is asymmetrically smaller and heterogeneous with relatively decreased flow. Advise clinical correlation and urologic consultation. Extensive scrotal skin thickening and subcutaneous edema may be seen in the setting of cellulitis. Moderate to large bilateral hydroceles. Electronically signed by: Lito Humphries MD 10/17/2023 01:14 PM EDT
[2023-10-17 09:59] LABS: MANUAL DIFF FLAG NO
[2023-10-17 10:09] LABS: Basophils Percent Auto 0.7 % (0-2); Eosinophils Absolute Auto 0.1 X10*3/uL (0.0-0.4); Hematocrit 44.7 % (42.0-52.0); Hemoglobin 14.7 g/dl (14.0-18.0); Imm Gran Abs Auto 0.03 X10*3/uL (0.00-0.03); Imm Gran Pct Auto 0.5 % (0.0-0.4); Lymphocytes Absolute Auto 1.4 X10*3/uL (1.2-4.9); Lymphocytes Percent Auto 22.4 % (20-40); Mean Corpuscular HGB Conc 32.9 g/dl (31.0-36.0); Mean Corpuscular Hemoglobin 33.7 pg (27.0-33.0); Mean Corpuscular Volume 102.5 fL (80.0-98.0); Monocytes Absolute Auto 0.6 X10*3/uL (0.1-1.2); Monocytes Percent Auto 9.3 % (2-11); Neutrophils Percent Auto 65.1 % (45-73); Platelet Count 301 X10*3/uL (160-400); Red Blood Count 4.36 X10*6/uL (4.60-5.80); Red Cell Distribution Width 14.1 % (11.0-16.0); White Blood Count 6.1 X10*3/uL (4.8-10.8)
[2023-10-17 10:33] LABS: Alanine Aminotransferase 40 U/L (0-40); Albumin Level 3.9 g/dL (3.5-5.0); Alkaline Phosphatase 79 U/L (39-117); Anion Gap 11 (12-20); Aspartate Amino Transferase 39 U/L (5-37); Bilirubin Direct 0.4 mg/dL (0.0-0.5); Bilirubin Total 1.2 mg/dL (0.0-1.0); Blood Urea Nitrogen 16 mg/dL (9-16); C Reactive Protein 0.37 mg/dL (< or = 0.50); Calcium 9.8 mg/dL (8.4-10.2); Carbon Dioxide 30 mmol/L (22-29); Chloride 104 mmol/L (96-108); Estimated Glomerular Filt Rate > 60; Glucose Random 122 mg/dL (60-115); Potassium 4.2 mmol/L (3.3-5.1); Sodium 141 mmol/L (135-145); Total Protein 7.3 g/dL (6.5-8.0)
[2023-10-17 10:52] LABS: Erythrocyte Sedimentation Rate 7 MM/HR (0-15); Thyroid Stimulating Hormone 1.65 uIU/mL (0.32-4.0)
[2023-10-17 12:10] LABS: Estimated Average Glucose 105 mg/dL; Hemoglobin A1c % 5.3 % (<6.0)
== END 2023-10-17 08:04 | disposition home or self-care (01) ==
LOC: HO.HMGCX 08:03
PROVIDERS: Internal Medicine Endocrinology, Diabetes & Metabolism; PCP Nurse Practitioner Family; Referring Provider Student in an Organized Health Care Education/Training Program; Visit Provider Nurse Practitioner Family
DX: N50.89 Other specified disorders of the male genital organs (principal); M06.00 Rheumatoid arthritis without rheumatoid factor, unspecified site; E66.01 Morbid (severe) obesity due to excess calories; R94.6 Abnormal results of thyroid function studies; Z13.1 Encounter for screening for diabetes mellitus
CPT/HCPCS: 36415; 76870; 80053; 80076; 82248; 83036; 84439; 84443; 84481; 85025; 85652; 86140

== ENCOUNTER 2023-10-26 09:52 | Inpatient (IN) | payer MEDICARE, SELFPAY ==
[2023-10-26] VITALS (9 sets, daily range): BP systolic 120–186; BP diastolic 58–89; PULSE 68–88; RESP 15–24; TEMP 36.6–36.9; O2SAT 93–98; BMI 53.7
--- NOTE | ~2023-10-26 | XR_ITS ---
EXAMINATION: XR CHEST CLINICAL INFORMATION: Shortness of breath. COMPARISON: Chest radiograph from 10/13/2022. CT chest from 05/16/2020. TECHNIQUE: 2 views of the chest were obtained (PA and lateral). FINDINGS: The lungs are well expanded. Moderately increased reticular markings throughout superimposed on previously demonstrated regions of architectural distortion throughout. Mild prominence of the central pulmonary vasculature. No new dense focal consolidative process. No evidence of pleural effusion Or pneumothorax. The cardiomediastinal silhouette is within normal limits. No acute osseous abnormalities. XR/XR chest 2V IMPRESSION: 1. Chronic regions of architectural distortion throughout both lungs. 2. Moderately increased reticular markings and mild prominence of the central pulmonary vasculature is nonspecific but may be seen in the setting of mild interstitial edema. No overt alveolar edema. No new dense focal consolidative process. Electronically signed by: Andre Ovalle DO 10/26/2023 04:16 PM EDT
--- NOTE | ~2023-10-26 | US_ITS ---
EXAMINATION: US RETROPERITONEAL LIMITED (RENAL ONLY) CLINICAL INFORMATION: MARIAN. COMPARISON: Ultrasound abdomen complete 10/12/2021. CT abdomen and pelvis 10/01/2020. TECHNIQUE: Real-time imaging of the kidneys. Study is limited secondary to body habitus. FINDINGS: RIGHT KIDNEY: 13.5 x 5.7 x 6.7 cm (SAG x AP x TRV). The kidney is normal in size, contour, and echogenicity. Renal cortical thickness is normal. No calculi or focal parenchymal lesions. No hydronephrosis. LEFT KIDNEY: 13.1 x 7.1 x 6.9 cm (SAG x AP x TRV). The kidney is normal in size, contour, and echogenicity. Renal cortical thickness is normal. No calculi or focal parenchymal lesions. No hydronephrosis. US/US renal BI IMPRESSION: Normal-appearing kidneys. Electronically signed by: Florentin Gramajo MD 11/06/2023 02:02 PM EDT
[2023-10-26 10:23] LABS: MANUAL DIFF FLAG NO
[2023-10-26 10:26] LABS: Basophils Absolute Auto 0.1 X10*3/uL (0.0-0.2); Basophils Percent Auto 1.2 % (0-2); Eosinophils Absolute Auto 0.2 X10*3/uL (0.0-0.4); Eosinophils Percent Auto 2.6 % (0-4); Hematocrit 42.5 % (42.0-52.0); Hemoglobin 14.8 g/dl (14.0-18.0); Imm Gran Abs Auto 0.02 X10*3/uL (0.00-0.03); Imm Gran Pct Auto 0.3 % (0.0-0.4); Lymphocytes Absolute Auto 1.7 X10*3/uL (1.2-4.9); Lymphocytes Percent Auto 28.7 % (20-40); Mean Corpuscular HGB Conc 34.8 g/dl (31.0-36.0); Mean Corpuscular Hemoglobin 34.5 pg (27.0-33.0); Mean Corpuscular Volume 99.1 fL (80.0-98.0); Mean Platelet Volume 10.3 fL (9.4-12.4); Monocytes Absolute Auto 0.6 X10*3/uL (0.1-1.2); Monocytes Percent Auto 9.7 % (2-11); Neutrophils Absolute Auto 3.3 x10*3/uL (2.0-8.3); Neutrophils Percent Auto 57.5 % (45-73); Platelet Count 231 X10*3/uL (160-400); Red Blood Count 4.29 X10*6/uL (4.60-5.80); Red Cell Distribution Width 14.3 % (11.0-16.0); White Blood Count 5.8 X10*3/uL (4.8-10.8)
[2023-10-26 10:55] LABS: Anion Gap 14 (12-20); Blood Urea Nitrogen 17 mg/dL (9-16); Carbon Dioxide 22 mmol/L (22-29); Chloride 105 mmol/L (96-108); Creatinine Clr Calc Pharmacy 142.8; Estimated Glomerular Filt Rate > 60; Glucose Random 118 mg/dL (60-115); Potassium 3.6 mmol/L (3.3-5.1); Sodium 137 mmol/L (135-145)
--- NOTE | 2023-10-26 11:17 | ED.GENADULT ---
HPI - General Adult General Chief complaint: General Medical Stated complaint: Swollen scrotum size of a [place] Time Seen by Provider: 10/26/23 12:24 Source: patient, family and RN notes reviewed Mode of arrival: ambulatory Limitations: no limitations History of Present Illness ED Provider: Mari Green PA-C HPI narrative: This is a 68-year old male, with a hx of CHF, paroxysmal atrial fibrillation on Eliquis and amiodarone, lymphedema with chronic venous stasis, hypertension, COPD on 3 L home O2, hypertension, presents emergency department with complaints of swollen scrotum and increased SOB x 3 weeks. Pt states that he was seen and evaluated by his primary care, Dr. Augustine, and was also coordinated care with Dr. Head, who ordered a scrotal ultrasound and was told that it revealed cellulitis. He was started on doxycycline. He was also increased from 40 mg of Lasix p.o. to 80 mg of Lasix. He has been taking these medications however states that he has not had any improvement. He states that over the last several days, his scrotum has only been increasing in size. He states that he does not have exquisite tenderness to the testicles, he does reports some testicular fullness, does reports some increased redness. He denies any fevers, chills. He does report burning with urination as well as trouble urinating due to the swelling. Patient also reports that he has had increased shortness of breath especially upon exertion, he states that he is unable to walk 10 ft without being profoundly short of breath. No other complaints or concerns at this time. MD complaint: Scrotal swelling Onset (ago): week(s) Exacerbating factors: none Associated symptoms: denies other symptoms Treatments prior to arrival: none Related Data Home Medications ?Medication ?Instructions ?Recorded ?Confirmed albuterol sulfate 90 mcg/actuation 2 puff PO Q6H PRN for wheezing 10/13/22 07/29/23 aerosol inhaler Previous Rx's ?Medication ?Instructions ?Recorded furosemide 40 mg tablet (Lasix) 40 mg PO DAILY #90 tabs 10/23/22 Anoro Ellipta 62.5 mcg-25 1 inh PO DAILY #60 ea 11/18/22 mcg/actuation powder for inhalation (umeclidinium-vilanterol) apixaban 5 mg tablet (Eliquis) 5 mg PO BID #60 tabs 01/27/23 atorvastatin 80 mg tablet 80 mg PO BEDTIME 90 days #90 tabs 05/05/23 walker #1 ea 05/22/23 oxybutynin chloride 10 mg 10 mg PO DAILY 90 days #90 tabs 07/15/23 tablet,extended release 24 hr doxazosin 8 mg tablet 8 mg PO BEDTIME 90 days #90 tabs 07/22/23 duloxetine 60 mg capsule,delayed 60 mg PO DAILY #90 caps 07/24/23 release ropinirole 2 mg tablet 2 mg PO TID 90 days #270 tabs 07/24/23 spironolactone 25 mg tablet See Rx Instructions .Route 07/27/23 .COMPLEX #90 tabs prednisone 5 mg tablet 5 mg PO DAILY #90 tabs 07/29/23 finasteride 5 mg tablet 5 mg PO DAILY 90 days #90 tabs 09/08/23 pregabalin 150 mg capsule 150 mg PO TID 90 days #270 caps 09/11/23 semaglutide (weight loss) 0.25 0.25 mg (0.5 mL) subcut QWEEK 30 09/23/23 mg/0.5 mL subcutaneous pen days #2.5 mL injector (Wegovy) methimazole 5 mg tablet 5 mg PO DAILY #90 tabs 09/26/23 amiodarone 200 mg tablet 200 mg PO DAILY 90 days #90 tabs 10/10/23 oxycodone 5 mg tablet 5 mg PO BID PRN pain 8 days #16 10/15/23 tabs doxycycline hyclate 100 mg tablet 100 mg PO BID 10 days #20 tabs 10/20/23 Actemra ACTPen 162 mg/0.9 mL 162 mg (0.9 mL) subcut Q7D #3.6 mL 10/23/23 subcutaneous pen injector (tocilizumab) Allergies Allergy/AdvReac Type Severity Reaction Status Date / Time No Known Allergies Allergy Verified 10/26/23 10:02 [No Known Allergies*] Review of Systems Review of Systems: Yes all other systems are reviewed and are negative Constitutional: Constitutional: Reports as per [facility] Past Medical History Attestation statement: The following information was validated with the patient. Medical History Testicular swelling Osteoarthritis of right knee Melanoma History of cardioversion Hereditary lymphedema Venous insufficiency Morbid obesity Lymphedema COPD (chronic obstructive pulmonary disease) Sensory neuropathy COVID-19 Respiratory failure with hypoxia Restrictive lung disease COPD (chronic obstructive pulmonary disease) JEFFRY on CPAP MATUTE (dyspnea on exertion) Chronic cystitis Bladder outlet obstruction Restless leg syndrome Traumatic complete tear of right rotator cuff Injury of right rotator cuff History of diverticulitis History of umbilical hernia Surgical History Hx of colonoscopy History of appendectomy History of arthroscopy of left knee Family History Family History Father Arthritis Diabetes Mother Arthritis Kidney stones Family/Other Arthritis Sister No problems noted. Sister No problems noted. Son No problems noted. Social History Social History Household Members: Spouse Household Members Other:: Floridalma Housing: [facility] Do you presently have visiting nurse or other home services: No Alcohol intake: current Alcohol intake frequency: 0-2 drinks per day Alcohol type: beer Comment: refusing bed alarm Patient Tobacco Use Status: Former Tobacco user Tobacco use type: Cigarette Cigarette Packs Per Day: 1 Cigarettes Per Day: 20.0 Years Smoked: 30 years Smoked in Last 30 Days: No e-Cigarette/Vaping Use: Never Used Second Hand Smoke Exposure: No Use of substances other than those prescribed or required for medical reasons: No Substance Use Type: Marijuana Advance Directives: Yes Advance Directives on File: Yes Advance Directives Date on File: 05/16/20 Do you have a plan to hurt others: No Plan service: No Current occupational status: retired 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 Cognitive needs: No Hearing needs: No Vision needs: No Physical Exam ED Vital Signs: Vital Signs - 24 hr 10/26/23 09:59 10/26/23 11:35 10/26/23 13:30 Temperature 98 F Pulse Rate 88 81 Respiratory Rate 24 H 18 Blood Pressure 186/64 H 147/86 H 126/58 L Pulse Oximetry 93 96 Oxygen Delivery Method Nasal Cannula Room Air 10/26/23 14:38 Temperature Pulse Rate 71 Respiratory Rate 18 Blood Pressure 126/58 L Pulse Oximetry 95 Oxygen Delivery Method Room Air BMI result Body Mass Index 53.7 Const General: cooperative, comfortable and no acute distress Orientation/consciousness: patient oriented x3 Limitations: no limitations HENMT Head: Yes normal to inspection, Yes normocephalic and Yes atraumatic Ears: hearing grossly normal bilaterally General nose exam: Normal external nose present Face and sinus: Yes normal facial exam Mouth: Normal oral and palatal mucosa present, oropharynx normal and moist mucous membranes Throat: Yes posterior oropharynx normal Eyes General: appearance normal, both eyes and all related structures Eyelids: Yes eyelids normal Conjunctivae: conjunctivae normal Sclerae: sclerae normal Pupils: Equal, round and reactive pupils present EOM: EOMs intact bilaterally Neck Neck: Yes normal visual inspection, Yes full ROM and Yes no lymphadenopathy Lymphatic: no lymphadenopathy noted Chest Chest palpation & inspection: normal inspection of the chest Resp Effort & Inspection: normal respiratory effort and able to speak in complete sentences Auscultation: clear to auscultation bilaterally, no crackles, no rales, no rhonchi and no wheezes Cardio Rate: regular rate Rhythm: regular rhythm Heart sounds: S1 normal heart sound present and S2 normal heart sound present GI Inspection: Yes normal to inspection Other: examination performed with attending physician, Dr. Bae. Bilateral testicles are extensively edematous, not exquisitely tender, slight warmth, no profound edema, drainage. Penis: normal penis Meatus: meatus normal Skin General skin exam: no rashes or lesions noted Trauma: no lacerations or abrasions Wounds: no wounds Neuro General: patient oriented x3 and moves all extremities Cranial nerves: Yes Equal, round and reactive pupils present Extrem General: Yes normal to inspection Right upper extremity: normal to inspection Left upper extremity: normal to inspection Right lower extremity: normal to inspection Left lower extremity: normal to inspection Course Course Course Narrative: RME performed by Danette Holland PA-C. Patient is a 68 year old assigned male at presenting to the emergency department with a significantly swollen scrotum. Detailed physical exam and review of systems are deferred to the primary care nurse. Labs ordered. Patient placed back in the waiting room pending room availability and results. Reevaluation(s) Reevaluation #1: Patient re-evaluated, freely urinating however would like a catheter, will send urine for urinalysis. Will admit to medicine Time: 14:13 Medications Administered Discontinued Medications Generic Name Dose Route Start Last Admin Trade Name Alan PRN Reason Stop Dose Admin Furosemide 100 mg 10/26/23 12:58 10/26/23 13:30 Furosemide 100 Mg/10 Ml Vial IVPUSH 10/26/23 12:59 100 mg ONCE ONE Administration Protocol Medical Decision Making Medical Decision Making [facility] Narrative: This is a 68-year old male, with a hx of CHF, paroxysmal atrial fibrillation on Eliquis and amiodarone, lymphedema with chronic venous stasis, hypertension, COPD on 3 L home O2, hypertension, presents emergency department with complaints of swollen scrotum x 3 weeks. On arrival, patient hypertensive at 186/64, respirations 24, repeat revealing blood pressure 147/86. Oxygen saturation 93% on 3 L. scrotum is edematous, non tender, slight erythema, slight warmth. Patient was seen and assessed by my attending physician, Dr. Bae. Pt's symptoms likely due to dependent edema. No evidence of abscess or cellulitis. Will start IV Lasix 100 mg IV, to get fluid off. Patient also states that over the last several weeks he has had increased shortness for breath, he is unable to walk 10 ft without being profoundly short of breath. He states he is unable to lay flat secondary to shortness for breath as well. Given symptoms of profound scrotal edema, and dyspnea on exertion, he would benefit from IV diuresis and hospital admission. Differential Diagnosis Differential Diagnoses: The differential diagnosis associated with the presentation includes Anasarca, cellulitis, abscess, CHF, testicular torsion-unlikely, hydrocele, cystocele Admission/Observation Consideration of admission/observation: Escalation of care including admission/observation considered Patient requiring admission/observation Lab Data [facility] Lab Attestation statement: I reviewed the patient's lab results. No leukocytosis, stable H&H, chemistry within normal limits. BNP less than 10 10/26/23 10:20 10/26/23 10:20 Labs: Lab Results 10/26/23 Range/Units 10:20 WBC 5.8 (4.8-10.8) X10*3/uL RBC 4.29 L (4.60-5.80) X10*6/uL Hgb 14.8 (14.0-18.0) g/dl Hct 42.5 (42.0-52.0) % MCV 99.1 H (80.0-98.0) fL MCH 34.5 H (27.0-33.0) pg MCHC 34.8 (31.0-36.0) g/dl RDW 14.3 (11.0-16.0) % Plt Count 231 (160-400) X10*3/uL MPV 10.3 (9.4-12.4) fL Immature Gran % (Auto) 0.3 (0.0-0.4) % Neut % (Auto) 57.5 (45-73) % Lymph % (Auto) 28.7 (20-40) % Gos[place] % (Auto) 9.7 (2-11) % Eos % (Auto) 2.6 (0-4) % Baso % (Auto) 1.2 (0-2) % Lymph # (Auto) 1.7 (1.2-4.9) X10*3/uL Gosper # (Auto) 0.6 (0.1-1.2) X10*3/uL Eos # (Auto) 0.2 (0.0-0.4) X10*3/uL Baso # (Auto) 0.1 (0.0-0.2) X10*3/uL Abs Immat Gran (auto) 0.02 (0.00-0.03) X10*3/uL Absolute Neuts (auto) 3.3 (2.0-8.3) x10*3/uL Absolute Nucleated RBC 0.000 (0.0-0.012) X10*3/uL Nucleated RBC % (auto) 0.0 (0.0-0.2) /100WBC Sodium 137 (135-145) mmol/L Potassium 3.6 (3.3-5.1) mmol/L Chloride 105 (96-108) mmol/L Carbon Dioxide 22 (22-29) mmol/L Anion Gap 14 (12-20) BUN 17 H (9-16) mg/dL Creatinine 0.95 (0.5-1.4) mg/dL Estim Creat Clear Calc 142.8 Estimated GFR > 60 Random Glucose 118 H (60-115) mg/dL Calcium 9.0 D (8.4-10.2) mg/dL Total Bilirubin 1.1 H (0.0-1.0) mg/dL Direct Bilirubin 0.4 (0.0-0.5) mg/dL AST 28 (5-37) U/L ALT 38 (0-40) U/L Alkaline Phosphatase 69 (39-117) U/L B-Natriuretic Peptide < 10 (<100) pg/mL Total Protein 6.6 (6.5-8.0) g/dL Albumin 3.7 (3.5-5.0) g/dL Critical Care Time Critical Care Time Critical Care Time: Yes Total Critical Care Time: 35 Attestation: I have personally provided critical care time exclusive of time spent on separately billable procedures. Time includes review of lab data, radiology results, discussion with consultants, and monitoring for potential decompensation. Intervention performed as documented. Discharge Plan Discharge Clinical Impression: Anasarca Prescriptions: No Action Anoro Ellipta 62.5-25 mcg/actuation blister with device 1 inh PO DAILY Qty: 60 3RF atorvastatin 80 mg tablet 80 mg PO BEDTIME 90 Days Qty: 90 1RF (DME) walker [facility] See Rx Instructions .Route Qty: 1 0RF Rx Instructions: daily use (rolling sitting walker-bariatric size needed) oxybutynin chloride 10 mg tablet extended release 24hr 10 mg PO DAILY 90 Days Qty: 90 1RF duloxetine 60 mg capsule,delayed release(DR/EC) 60 mg PO DAILY Qty: 90 0RF ropinirole 2 mg tablet 2 mg PO TID 90 Days Qty: 270 0RF spironolactone 25 mg tablet See Rx Instructions .ROUTE .COMPLEX Qty: 90 1RF Dose Instruction: TAKE 1 TABLET BY MOUTH DAILY Rx Instructions: TAKE 1 TABLET BY MOUTH DAILY finasteride 5 mg tablet 5 mg PO DAILY 90 Days Qty: 90 1RF pregabalin 150 mg capsule 150 mg PO TID 90 Days Qty: 270 2RF methimazole 5 mg tablet 5 mg PO DAILY Qty: 90 1RF amiodarone 200 mg tablet 200 mg PO DAILY 90 Days Qty: 90 2RF oxycodone 5 mg tablet 5 mg PO BID PRN (Reason: pain) 8 Days Qty: 16 0RF Rx Instructions: Partial Fill upon patient request. doxycycline hyclate 100 mg tablet 100 mg PO BID 10 Days Qty: 20 0RF Actemra ACTPen 162 mg/0.9 mL pen injector 162 mg subcut Q7D Qty: 3.6 2RF albuterol sulfate 90 mcg/actuation HFA aerosol inhaler 2 puff PO Q6H PRN (Reason: for wheezing) Wegovy 0.25 mg/0.5 mL pen injector 0.25 mg subcut QWEEK 30 Days Qty: 2.5 0RF Rx Instructions: administer weeks 1 through 4 of therapy doxazosin 8 mg tablet 8 mg PO BEDTIME 90 Days Qty: 90 1RF Eliquis 5 mg tablet 5 mg PO BID Qty: 60 5RF furosemide [Lasix] 40 mg tablet 40 mg PO DAILY Qty: 90 3RF prednisone 5 mg tablet 5 mg PO DAILY Qty: 90 0RF Print Language: Nepali
[2023-10-26 11:33] LABS: Alanine Aminotransferase 38 U/L (0-40); Albumin Level 3.7 g/dL (3.5-5.0); Alkaline Phosphatase 69 U/L (39-117); Aspartate Amino Transferase 28 U/L (5-37); Bilirubin Direct 0.4 mg/dL (0.0-0.5); Bilirubin Total 1.1 mg/dL (0.0-1.0); Total Protein 6.6 g/dL (6.5-8.0)
--- NOTE | 2023-10-26 11:41 | PC.NURSE ---
Pt comes from home for scrotum swelling x2 weeks d/t cellulitis. Pt recently was put on abx for this and has not improved. Pt endorsing significant swelling over the last week, reports no fevers recently. Pt has taken whole abx course with no relief. A/ox4, lung sounda cta bilaterally, no increased wob/sob noted, s1 and s2 heard, NSR on environmental monitoring specialist- HR 60s, abdomen soft, non-tender. Pt states no urgency/frequency while urinating, able to urinate with no issues, no hematuria. Call jenkins within reach, all needs met at this time.
[2023-10-26 12:09] LABS: B Type Natriuretic Peptide < 10 pg/mL (<100)
[2023-10-26] MEDS: Furosemide 100 MG/10 ML VIAL IVPUSH (13:30)
--- NOTE | 2023-10-26 14:38 | P.HPHOSP_ITS ---
<Statement entered by Florina Chandler MD - 11/08/23 15:37> the patient was seen and evaluated with AYSHA Erickson. I agree with his note, assessment and plan with the following. In summary, A 68 years old with PMH of sCHF, Afib, Lymphedema, COPD on 3L, JEFFRY on CPAP among others who presents with scrotal swelling. subacute Scrotal swelling 2/2 Anasarca start Lasix 100mg IV and place on Lasix drip @5mg/hr Bautista cathter in place I\O, Low-salt diet, fluid restriction Rest of evaluations by AYSHA note. History of Present Illness Date of Service: 10/26/23 Attending physician on admission: [place] Chief Complaint: Scrotal swelling Pt is a 68-year-old male with a PMH significant for paroxysmal AFib on Eliquis and amiodarone, HFrEF, lymphedema with chronic venous stasis, HTN, COPD on 3L home O2, JEFFRY on CPAP, seronegative RA, HTN, overactive bladder, and obesity class 3 who presents to the ED for evaluation of abdominal and testicular swelling x3-4 weeks, worsening in the past few days. Patient initially saw his PCP Dr. Augustine around 2 weeks ago who also coordinated care with Dr. Head in Urology. Patient's Lasix was increased from 40 mg p.o. daily to 40 mg b.i.d. to little effect. Patient then underwent a scrotal ultrasound on 10/16 which suggested scrotal skin thickening and subcutaneous edema possibly suggestive of cellulitis. Patient was started on doxycycline on 10/19. However, patient states 3-4 days ago scrotal swelling noticeably increased, especially in the last day when it was ?growing by the hour?. Patient called Dr. Head's office and was told him to come to the ED for further evaluation. Denies scrotal pain but having significant discomfort and scrotum feels very heavy . Pt has a hx of water retention, but denies ever experiencing similar symptoms of scrotal edema. Patient also complains of increased shortness of breath, difficulty walking, and MATUTE especially with stairs. Denies increased lower leg edema. Recently saw wound care clinic for lymphadema on 10/23. Denies fever, chills, nausea, vomiting, abdominal pain. No chest pain/pressure, palpitations. In the ED pt was tachypneic up to 24, initially hypertensive at 186/64 then was soft BP of 126/58. Labs were grossly unremarkable and around baseline for patient. No leukocytosis. Stable H&H. No significant electrolyte abnormalities. Renal and hepatic function baseline. BNP negative. Scrotal ultrasound on 10/17/2023 found extensive scrotal skin thickening and subcutaneous edema possibly suggestive of cellulitis; left testicle asymmetrically smaller and heterogeneous; and moderate to large bilateral hydroceles. UA negative for UTI. In the ED pt was treated with furosemide 100mg IV. Pt will be admitted to the hospital for treatment and further evaluation of anasarca with abd and significant scrotal swelling that has failed outpatient diuretic therapy. Review of Systems 2 Review of Systems: Increased abdominal and scrotal swelling Scrotal discomfort and heaviness SOB, MATUTE No fever, chills, N/V/D or abd pain Denies chest pain/pressure or palpitations [facility] Medical History Testicular swelling Osteoarthritis of right knee Melanoma History of cardioversion Hereditary lymphedema Venous insufficiency Morbid obesity Lymphedema COPD (chronic obstructive pulmonary disease) Sensory neuropathy COVID-19 Respiratory failure with hypoxia Restrictive lung disease COPD (chronic obstructive pulmonary disease) JEFFRY on CPAP MATUTE (dyspnea on exertion) Chronic cystitis Bladder outlet obstruction Restless leg syndrome Traumatic complete tear of right rotator cuff Injury of right rotator cuff History of diverticulitis History of umbilical hernia Family History Father Arthritis Diabetes Mother Arthritis Kidney stones Family/Other Arthritis Sister No problems noted. Sister No problems noted. Son No problems noted. Surgical History Hx of colonoscopy History of appendectomy History of arthroscopy of left knee Social History Household Members: Spouse Household Members Other:: Floridalma Housing: Condominium Do you presently have visiting nurse or other home services: No Alcohol intake: current Alcohol intake frequency: 0-2 drinks per day Alcohol type: beer Comment: refusing bed alarm Patient Tobacco Use Status: Former Tobacco user Tobacco use type: Cigarette Cigarette Packs Per Day: 1 Cigarettes Per Day: 20.0 Years Smoked: 30 years Smoked in Last 30 Days: No e-Cigarette/Vaping Use: Never Used Second Hand Smoke Exposure: No Use of substances other than those prescribed or required for medical reasons: No Substance Use Type: Marijuana Advance Directives: Yes Advance Directives on File: Yes Advance Directives Date on File: 05/16/20 Do you have a plan to hurt others: No Plan service: No Current occupational status: retired 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 Cognitive needs: No Hearing needs: No Vision needs: No Meds Allergies Allergy/AdvReac Type Severity Reaction Status Date / Time No Known Allergies Allergy Verified 10/26/23 10:02 [No Known Allergies*] Home Medications ?Medication ?Instructions ?Recorded ?Confirmed ?Last Taken ?Type albuterol sulfate 90 mcg/actuation 2 puff PO Q6H PRN for wheezing 10/13/22 07/29/23 Unknown History aerosol inhaler spironolactone 25 mg tablet 25 mg PO DAILY 10/26/23 Unknown History Physical Exam 2 Vital Signs and Narrative: Vital Signs: Last Vital Signs Temp 98 F 10/26/23 09:59 Pulse 81 10/26/23 11:35 Resp 18 10/26/23 11:35 BP 126/58 L 10/26/23 13:30 Pulse Ox 96 10/26/23 11:35 O2 Del Method Room Air 10/26/23 11:35 Oxygen Flow Rate 3 10/26/23 09:59 BMI result Body Mass Index 53.7 Constitutional: Alert, in no acute distress. Mental Status: Oriented to person, place and time. Eyes: Pupils are equal, round, and reactive to light. Ear, Nose, and Throat: Oropharynx clear, mucous membranes moist. Ears and nose without deformities. Trachea midline. Respiratory: Clear to auscultation bilaterally. No wheezing, rales, or rhonchi. Cardiovascular: S1, S2 regular. No murmurs, rubs, or gallops. Gastrointestinal: Abdomen mildly firm, non-tender, obese. Normal bowel sounds. : Scrotum diffusely swollen and edematous. Mild erythema and warmth. Nontender, negative Prehn's sign Neurologic: Cranial nerves II-XII are grossly intact bilaterally. No focal neurological deficits. Moves all extremities spontaneously. Skin: Warm, dry. Musculoskeletal: No cyanosis or clubbing. Extremities: Lower extremities with lymphedema and chronic venous stasis dermatitis changes bilaterally. No indication of cellulitis or necrosis. Psychiatric: Normal mood and affect. Results Labs 10/26/23 10:20 10/26/23 10:20 Labs: Laboratory Results - last 24 hr 10/26/23 10:20 MCV 99.1 H MCH 34.5 H MCHC 34.8 RDW 14.3 Plt Count 231 MPV 10.3 Immature Gran % (Auto) 0.3 Neut % (Auto) 57.5 Lymph % (Auto) 28.7 [place] % (Auto) 9.7 Eos % (Auto) 2.6 Baso % (Auto) 1.2 Lymph # (Auto) 1.7 [place] # (Auto) 0.6 Eos # (Auto) 0.2 Baso # (Auto) 0.1 Abs Immat Gran (auto) 0.02 Absolute Neuts (auto) 3.3 Absolute Nucleated RBC 0.000 Nucleated RBC % (auto) 0.0 Anion Gap 14 Estim Creat Clear Calc 142.8 Estimated GFR > 60 Random Glucose 118 H Calcium 9.0 D Total Bilirubin 1.1 H Direct Bilirubin 0.4 AST 28 ALT 38 Alkaline Phosphatase 69 B-Natriuretic Peptide < 10 Total Protein 6.6 Albumin 3.7 Assessment and Plan (1) Anasarca: Status: Acute (2) Scrotal swelling: Status: Acute Plan Pt is a 68-year-old male with a PMH significant for paroxysmal AFib on Eliquis and amiodarone, HFrEF, lymphedema with chronic venous stasis, HTN, COPD on 3L home O2, JEFFRY on CPAP, seronegative RA, HTN, overactive bladder, and obesity class 3 who presents to the ED for evaluation of abdominal and testicular swelling x3-4 weeks, worsening in the past few days. Pt will be admitted to the hospital for treatment and further evaluation of anasarca with abd and significant scrotal swelling that has failed outpatient diuretic therapy. Anasarca Pt with scrotal and abdominal swelling 3-4 weeks, worse past few days Has not responded to increasing Lasix from 40mg daily to 80mg daily Given Lasix 100mg IV in the ED Aggressive diuresing: will place on Lasix drip @5mg/hr Bautista cathter in place Low-salt diet, fluid restriction Follow malia, I/O, BMP Daily weights Monitor on telemetry Question of testicular cellulitis Started on doxy 100mg bid x10 days on 10/19 No sepsis Complete course of abx, set to finish on 10/30/2023 HTN Continue amiodarone for now Patient aggressively diuresed Follow up BP closely COPD Not in acute exacerbation Continue home 3L O2 Continue home inhalers Chronic venous stasis Follows with wound care clinic, last seen 2 days prior on 10/23 Rickie wraps daily Ammonium lactate Peripheral neuropathy Continue pregabalin Mood disorder Continue home mood stabalizers Full Code Attending:?Dr. Chandler DVT Prophylaxis: On Eliquis Pt will require a hospitalization of at least two nights for treatment of?anasarca including significant testicular swelling that has failed outpatient therapy. Patient will need hospitalization for aggressive diuresing with Lasix drip, as well as close monitoring of cardiac function, electrolytes, and renal function. Quality Stroke Does the patient have a stroke diagnosis?: No VTE Prior VTE?: No VTE Risk Level:: Medical - moderate - high VTE Device Contraindication: Treatment Not Indicated VTE Drug Contraindication: N/A - Med Ordered
[2023-10-26 14:50] LABS: Appearance Urine Clear; Color Urine Yellow; Glucose Urine UA Negative (Negative); Leukocyte Esterase Urine Negative (Negative); Nitrite Urine Negative (Negative); PH 5.5 (5.0-9.0); Urine Blood Negative (Negative); Urine Ketones Negative (Negative); Urine Protein Negative (Neg-Trace)
--- NOTE | 2023-10-26 15:07 | PC.NURSE ---
Pt medicated per MAR with lasix, 200 output in urinal.
--- NOTE | 2023-10-26 15:21 | PC.NURSE ---
Med administration delayed d/t not being in pyxis.
[2023-10-26] MEDS: Ammonium Lactate 12 % Lotion 226 GM BOTTLE 1 APPL TOPICAL ×2 (15:36→21:38)
[2023-10-26] MEDS: Furosemide 200 MG in 0.9 % Sodium Chloride 80 ML IVCONT (16:43)
--- NOTE | 2023-10-26 17:00 | PC.NURSE ---
This RN reached out to AYSHA Villanueva about Lasix drip. Pt BNP negative, responding well to IVP lasix, output 4000ml of clear/yellow urine, pt normotensive 120s/80s. Per AYSHA Villanueva, okay to start lasix drip d/t pt needing aggressive diuresis. Pt educated on symptoms to look out for while lasix drip running. BP running q 15min to monitor for changes. Pt verbalized his pain is starting to increase again/uncomfortable from the catheter, this RN reached out to AYSHA Villanueva about pain medication with higher pain scale. Call jenkins within reach, pt updated on plan of care, all needs met at this time.
[2023-10-26] MEDS: oxyCODONE HCl Immed Release 5 MG TABLET PO ×2 (17:11→21:37)
--- NOTE | 2023-10-26 17:13 | PHA.MEDREC ---
Addendum entered by Mimi Moore RPh 10/26/23 17:31: reviewed by [facility]. Original Note: Pharmacy Consult ? Medication Reconciliation Pharmacy has completed the medication reconciliation. Pt reports no longer being on prednisone or wegovy.
--- NOTE | 2023-10-26 20:26 | MHC.EDTECH ---
This tech applied towel underneath pt swollen scrotum, call jenkins within reach.
[2023-10-26] MEDS: Atorvastatin Calcium 80 MG TABLET PO (21:37)
[2023-10-26] MEDS: Doxycycline Monohydrate 100 MG CAPSULE PO (21:37)
[2023-10-26] MEDS: Doxazosin Mesylate 2 MG TABLET 8 MG PO (21:37)
[2023-10-26] MEDS: Apixaban 5 MG TABLET PO (21:37)
[2023-10-26] MEDS: rOPINIRole HCL 2 MG TABLET PO (21:37)
[2023-10-27] VITALS (11 sets, daily range): BP systolic 101–149; BP diastolic 53–84; PULSE 70–89; RESP 14–22; TEMP 36–36.6; O2SAT 92–97; BMI 54.8
[2023-10-27] MEDS: oxyCODONE HCl Immed Release 5 MG TABLET PO ×3 (01:44→12:16)
[2023-10-27 05:46] LABS: Anion Gap 17 (12-20); Blood Urea Nitrogen 17 mg/dL (9-16); Calcium 9.1 mg/dL (8.4-10.2); Carbon Dioxide 24 mmol/L (22-29); Chloride 102 mmol/L (96-108); Estimated Glomerular Filt Rate > 60; Glucose Random 128 mg/dL (60-115); Magnesium 2.1 mg/dL (1.6-2.6); Potassium 3.9 mmol/L (3.3-5.1); Sodium 139 mmol/L (135-145)
[2023-10-27] MEDS: DULoxetine HCl 60 MG CAPSULE.DR PO (09:36)
[2023-10-27] MEDS: oxyBUTYnin chloride ER 5 MG TAB.ER.24 10 MG PO (09:37)
[2023-10-27] MEDS: Amiodarone HCL 200 MG TABLET PO (09:37)
[2023-10-27] MEDS: Finasteride 5 MG TABLET PO (09:37)
[2023-10-27] MEDS: Doxycycline Monohydrate 100 MG CAPSULE PO ×2 (09:37→21:42)
[2023-10-27] MEDS: Pregabalin 150 MG CAPSULE PO ×3 (09:37→21:43)
[2023-10-27] MEDS: Apixaban 5 MG TABLET PO ×2 (09:37→21:43)
[2023-10-27] MEDS: Ammonium Lactate 12 % Lotion 226 GM BOTTLE 1 APPL TOPICAL ×2 (09:38→22:12)
--- NOTE | 2023-10-27 09:41 | PC.NURSE ---
PT BP soft this AM 106/65 in R arm and 101/56 in L arm - MD Chandler at bedside and ordered to hold spironolactone
[2023-10-27] MEDS: methIMAzole 5 MG TABLET PO (10:14)
[2023-10-27] MEDS: rOPINIRole HCL 2 MG TABLET PO ×3 (10:14→21:43)
--- NOTE | 2023-10-27 10:43 | P.PNIM_ITS ---
Subjective Subjective Date of Service: 10/27/23 Interval History: Seen and evaluated this morning Made 5L overnight scrotal swelling mildly better no other events Review of Systems Review of Systems: Yes all other systems are reviewed and are negative Physical Exam 2 Vital Signs: Vital Signs: Last Vital Signs Temp 97.0 F 10/27/23 06:00 Pulse 89 10/27/23 09:29 Resp 20 10/27/23 09:29 BP 101/56 L 10/27/23 09:29 Pulse Ox 95 10/27/23 09:26 O2 Del Method Nasal Cannula 10/27/23 09:26 O2 Flow Rate 3 10/27/23 09:26 Oxygen Flow Rate 3 10/26/23 09:59 BMI result Body Mass Index 53.7 Const: Other: Constitutional : Awake, interactive, not in distress Neck : Normal inspection, Supple Cardiovascular : RRR, no JVP, chronic non-pitting bilateral lower extremity edema Respiratory : good bilateral air entry, no crackles, wheezes or rhonchi Gastrointestinal: soft, lax, Normal bowel sounds, Non tender Skin : Warm, Dry, dry skin lower extremities , small dry wounds with no drainage Urology: Bautista in place, scrotum still significantly swollen, no tenderness Neurological : Alert & oriented x3, No focal deficit Objective Data Active Medications Acetaminophen (Acetaminophen 325 Mg Tablet) 650 mg PO Q6H PRN PRN Reason: Pain, Mild (Pain Scale 1-3), fever or headache Albuterol Sulfate (Albuterol Sulfate 90 Mcg 8 Gm Inhaler) 2 puff INHALE Q6H PRN PRN Reason: for wheezing Amiodarone HCl (Amiodarone Hcl 200 Mg Tablet) 200 mg PO DAILY REPLACED BY [facility] Last Admin: 10/27/23 09:37 Dose: 200 mg Documented By: MIGUEL Apixaban (Apixaban 5 Mg Tablet) 5 mg PO BID REPLACED BY [facility] Last Admin: 10/27/23 09:37 Dose: 5 mg Documented By: MIGUEL Atorvastatin Calcium (Atorvastatin Calcium 80 Mg Tablet) 80 mg PO BEDTIME REPLACED BY [facility] Last Admin: 10/26/23 21:37 Dose: 80 mg Documented By: DACIA-FIDELT Benzonatate (Benzonatate 100 Mg Capsule) 100 mg PO TID PRN PRN Reason: Cough Calcium Carbonate (Calcium Carbonate 750 Mg Tab.Chew) 750 mg PO Q4H PRN PRN Reason: Heartburn Doxazosin Mesylate (Doxazosin Mesylate 2 Mg Tablet) 8 mg PO BEDTIME REPLACED BY [facility]; Protocol Last Admin: 10/26/23 21:37 Dose: 8 mg Documented By: AMY Doxycycline Monohydrate (Doxycycline Monohydrate 100 Mg Capsule) 100 mg PO BID REPLACED BY [facility] Last Admin: 10/27/23 09:37 Dose: 100 mg Documented By: MIGUEL Duloxetine HCl (Duloxetine Hcl 60 Mg Capsule.Dr) 60 mg PO DAILY REPLACED BY [facility] Last Admin: 10/27/23 09:36 Dose: 60 mg Documented By: MIGUEL Finasteride (Finasteride 5 Mg Tablet) 5 mg PO DAILY REPLACED BY [facility] Last Admin: 10/27/23 09:37 Dose: 5 mg Documented By: MIGUEL Furosemide 200 mg/ Sodium (Chloride) 100 mls @ 2.5 mls/hr IVCONT .Q24H REPLACED BY [facility] Last Admin: 10/26/23 16:43 Dose: 5 mg/hr, 2.5 mls/hr Documented By: MEHUL Lactic Acid (Ammonium Lactate 12 % Lotion 226 Gm Bottle) 1 appl TOPICAL BID REPLACED BY [facility]; Protocol Last Admin: 10/27/23 09:38 Dose: 1 appl Documented By: MIGUEL Magnesium Hydroxide (Milk Of Magnesia 30 Ml Oral.Susp) 30 ml PO DAILY PRN PRN Reason: Constipation Melatonin (Melatonin 3 Mg Tablet) 6 mg PO BEDTIME PRN PRN Reason: Insomnia Methimazole (Methimazole 5 Mg Tablet) 5 mg PO DAILY REPLACED BY [facility] Last Admin: 10/27/23 10:14 Dose: 5 mg Documented By: MIGUEL Non-Formulary Medication (Umeclidinium-Vilanterol [Anoro Ellipta]) 1 inhalation PO DAILY REPLACED BY [facility] Ondansetron HCl (Ondansetron Hcl 4 Mg/2 Ml Vial) 4 mg IVPUSH Q8H PRN PRN Reason: Nausea and Vomiting Oxybutynin Chloride (Oxybutynin Chloride Er 5 Mg Tab.Er.24) 10 mg PO DAILY REPLACED BY [facility] Last Admin: 10/27/23 09:37 Dose: 10 mg Documented By: MIGUEL Oxycodone HCl (Oxycodone Hcl Immed Release 5 Mg Tablet) 5 mg PO Q4H PRN PRN Reason: Pain, Severe (Pain Scale 7-10) Last Admin: 10/27/23 06:27 Dose: 5 mg Documented By: RAÚL Oxycodone HCl (Oxycodone Hcl Immed Release 5 Mg Tablet) 5 mg PO BID PRN PRN Reason: Pain, Severe (Pain Scale 7-10) Last Admin: 10/26/23 21:37 Dose: 5 mg Documented By: AMY Pregabalin (Pregabalin 150 Mg Capsule) 150 mg PO TID REPLACED BY [facility] Last Admin: 10/27/23 09:37 Dose: 150 mg Documented By: MIGUEL Ropinirole HCl (Ropinirole Hcl 2 Mg Tablet) 2 mg PO TID REPLACED BY [facility] Last Admin: 10/27/23 10:14 Dose: 2 mg Documented By: MIGUEL Sodium Chloride (0.9 % Sodium Chloride Flush 3 Ml Syringe) 3 ml IVFLUSH QSNCFT REPLACED BY [facility] Last Admin: 10/27/23 07:55 Dose: Not Given Documented By: MIGUEL Non-Admin Reason: IV Running Spironolactone (Spironolactone 25 Mg Tablet) 25 mg PO DAILY REPLACED BY [facility]; Protocol Last Admin: 10/27/23 09:36 Dose: Not Given Documented By: MIGUEL Non-Admin Reason: Physician Held Med Tramadol HCl (Tramadol Hcl 50 Mg Tablet) 50 mg PO Q4H PRN PRN Reason: Pain, Moderate(Pain Scale 4-6) Labs 10/26/23 10:20 10/27/23 05:29 Labs: Laboratory Results - last 24 hr 10/26/23 10/26/23 10/27/23 10:20 14:40 05:29 Anion Gap 14 17 Estim Creat Clear Calc 142.8 114.0 Estimated GFR > 60 > 60 Random Glucose 118 H 128 H Calcium 9.0 D 9.1 Magnesium 2.1 Total Bilirubin 1.1 H Direct Bilirubin 0.4 AST 28 ALT 38 Alkaline Phosphatase 69 B-Natriuretic Peptide < 10 Total Protein 6.6 Albumin 3.7 Urine Color Yellow Urine Appearance Clear Urine pH 5.5 Ur Specific [place] 1.010 Urine Protein Negative Urine Glucose (UA) Negative Urine Ketones Negative Urine Blood Negative Urine Nitrite Negative Ur Leukocyte Esterase Negative Assessment and Plan (1) Anasarca: Status: Acute (2) Scrotal swelling: Status: Acute Plan Pt is a 68-year-old male with a PMH significant for paroxysmal AFib on Eliquis and amiodarone, HFrEF, lymphedema with chronic venous stasis, HTN, COPD on 3L home O2, JEFFRY on CPAP, seronegative RA, HTN, overactive bladder, and obesity class 3 who presents to the ED for evaluation of abdominal and testicular swelling x3-4 weeks, worsening in the past few days. Pt will be admitted to the hospital for treatment and further evaluation of anasarca with abd and significant scrotal swelling that has failed outpatient diuretic therapy. Scrotal swelling with overall Anasarca Improving Continue on Lasix drip @5mg/hr Add Metolazone 2.5 mg now Bautista cathter in place Low-salt diet, fluid restriction Follow malia I/O, BMP Daily weights Monitor on telemetry Scrotal cellulitis Complete course of Doxycycline, set to finish on 10/30/2023 HTN Hold Spironolactone for low BP COPD Not in acute exacerbation Continue home 3L O2 Continue home inhalers Chronic venous stasis Follows with wound care clinic, last seen 2 days prior on 10/23 Rickie wraps daily Ammonium lactate Peripheral neuropathy Continue pregabalin Mood disorder Continue home mood stabalizers Full Code DVT Prophylaxis: On Eliquis Pt will require a hospitalization overnight for treatment of?anasarca including significant testicular swelling that has failed outpatient therapy. Patient will need hospitalization for aggressive diuresing with Lasix drip, as well as close monitoring of cardiac function, electrolytes, and renal function. Quality Stroke Does the patient have a stroke diagnosis?: No VTE Prior VTE?: No VTE Risk Level:: Medical - moderate - high VTE Device Contraindication: Treatment Not Indicated VTE Drug Contraindication: N/A - Med Ordered
[2023-10-27] MEDS: metOLazone 2.5 MG TABLET PO (12:13)
[2023-10-27] MEDS: Milk of Magnesia 30 ML ORAL.SUSP PO (12:13)
--- NOTE | 2023-10-27 13:11 | MHC.CM.PN ---
CM met with Patient and his at bedside, in the ED, and addressed IMM with him (original was given to Patient and a copy will be placed on the chart).Patient lives in a condo with his /HCP/Floridalma and he has both a cane and a walker to assist with mobility. Patient uses home O2 & CPAP through [facility]. Home/resume said services is the goal and CM has initiated and will follow for dc planning. PCP is Dr. Diego Augustine and Patient's will transport to home.
[2023-10-27] MEDS: Furosemide 200 MG in 0.9 % Sodium Chloride 80 ML IVCONT (18:29)
--- NOTE | 2023-10-27 20:54 | PC.NURSE ---
This narrative writer assumed care of this Pt at 1900. Pt A&Ox3. Pt on 3L of O2 via NC. BLL swelling noted. IV lasix running per APR. pt reports he had small hard BM this AM and had MOM this afternoon with no relief and feels like he is straining might of gave himself a hemorrhoid. Dr. Chacon made aware, awaiting new order. Report complete Pt transported to room 487.
[2023-10-27] MEDS: Atorvastatin Calcium 80 MG TABLET PO (21:42)
[2023-10-27] MEDS: bisacodyL 5 MG TABLET.DR 10 MG PO (21:42)
[2023-10-27] MEDS: Melatonin 3 MG TABLET 6 MG PO (21:43)
[2023-10-27] MEDS: Doxazosin Mesylate 2 MG TABLET 8 MG PO (21:45)
[2023-10-28 03:10] VITALS: BP 136/74; PULSE 103; RESP 20; TEMP 36.3; O2SAT 91
[2023-10-28] MEDS: ondansetron HCL 4 MG/2 ML VIAL IVPUSH (03:34)
[2023-10-28 06:24] LABS: Anion Gap 14 (12-20); Blood Urea Nitrogen 19 mg/dL (9-16); Calcium 9.5 mg/dL (8.4-10.2); Carbon Dioxide 32 mmol/L (22-29); Chloride 95 mmol/L (96-108); Creatinine Clr Calc Pharmacy 110.9; Estimated Glomerular Filt Rate 58; Glucose Random 129 mg/dL (60-115); Potassium 2.7 mmol/L (3.3-5.1); Sodium 138 mmol/L (135-145)
[2023-10-28] MEDS: Potassium Chloride Packet 20 MEQ PACKET 40 MEQ PO (06:45)
[2023-10-28] MEDS: Potassium Chloride ER 20 MEQ TAB.ER.PRT PO (06:45)
[2023-10-28 08:00] VITALS: BP 136/74; PULSE 89; RESP 20; TEMP 36.1; O2SAT 95
[2023-10-28] MEDS: Finasteride 5 MG TABLET PO (08:30)
[2023-10-28] MEDS: Spironolactone 25 MG TABLET PO (08:30)
[2023-10-28] MEDS: Doxycycline Monohydrate 100 MG CAPSULE PO ×2 (08:30→21:42)
[2023-10-28] MEDS: rOPINIRole HCL 2 MG TABLET PO ×3 (08:30→21:42)
[2023-10-28] MEDS: Apixaban 5 MG TABLET PO ×2 (08:30→21:42)
[2023-10-28] MEDS: Potassium Chloride ER 20 MEQ TAB.ER.PRT 40 MEQ PO ×2 (08:30→16:12)
[2023-10-28] MEDS: Amiodarone HCL 200 MG TABLET PO (08:30)
[2023-10-28] MEDS: oxyBUTYnin chloride ER 5 MG TAB.ER.24 10 MG PO (08:30)
[2023-10-28] MEDS: methIMAzole 5 MG TABLET PO (08:31)
[2023-10-28] MEDS: Pregabalin 150 MG CAPSULE PO ×3 (08:31→21:42)
[2023-10-28] MEDS: DULoxetine HCl 60 MG CAPSULE.DR PO (08:31)
[2023-10-28] MEDS: Milk of Magnesia 30 ML ORAL.SUSP PO (08:42)
[2023-10-28] MEDS: Ammonium Lactate 12 % Lotion 226 GM BOTTLE 1 APPL TOPICAL ×2 (08:48→21:42)
[2023-10-28] MEDS: Psyllium seed 3.7 GM PACKET PO (10:38)
[2023-10-28] MEDS: Lactulose 20 GM/30 ML SOLUTION PO ×2 (10:38→21:42)
[2023-10-28] MEDS: Potassium Chloride/H20 10 MEQ/100 ML PIGGYBACK 100 MEQ IV (10:42)
[2023-10-28 11:47] VITALS: BP 119/67; PULSE 87; RESP 20; TEMP 36.4; O2SAT 93
--- NOTE | 2023-10-28 12:58 | HO.PM.IMPN ---
Subjective Subjective Date of Service: 10/28/23 Interval History: Seen and evaluated this morning Made almost 5L of urine overnight scrotal swelling mildly better K dropped to 2.7 no other events Review of Systems Review of Systems: Yes all other systems are reviewed and are negative Physical Exam Vital Signs: Vital Signs: Last Vital Signs Temp 97.6 F 10/28/23 11:47 Pulse 87 10/28/23 11:47 Resp 20 10/28/23 11:47 BP 119/67 10/28/23 11:47 Pulse Ox 93 10/28/23 11:47 O2 Del Method Nasal Cannula 10/28/23 11:47 O2 Flow Rate 2 10/28/23 11:47 Oxygen Flow Rate 3 10/26/23 09:59 BMI result Body Mass Index 54.8 Const: Other: Constitutional : Awake, interactive, not in distress Neck : Normal inspection, Supple Cardiovascular : RRR, no JVP, chronic non-pitting bilateral lower extremity edema Respiratory : good bilateral air entry, no crackles, wheezes or rhonchi Gastrointestinal: soft, lax, Normal bowel sounds, Non tender Skin : Warm, Dry, dry skin lower extremities , small dry wounds with no drainage Urology: Bautista in place, scrotum still significantly swollen, no tenderness Neurological : Alert & oriented x3, No focal deficit Objective Data Active Medications Acetaminophen (Acetaminophen 325 Mg Tablet) 650 mg PO Q6H PRN PRN Reason: Pain, Mild (Pain Scale 1-3), fever or headache Albuterol Sulfate (Albuterol Sulfate 90 Mcg 8 Gm Inhaler) 2 puff INHALE Q6H PRN PRN Reason: for wheezing Amiodarone HCl (Amiodarone Hcl 200 Mg Tablet) 200 mg PO DAILY [facility] Last Admin: 10/28/23 08:30 Dose: 200 mg Documented By: LISA Apixaban (Apixaban 5 Mg Tablet) 5 mg PO BID [facility] Last Admin: 10/28/23 08:30 Dose: 5 mg Documented By: LISA Atorvastatin Calcium (Atorvastatin Calcium 80 Mg Tablet) 80 mg PO BEDTIME [facility] Last Admin: 10/27/23 21:42 Dose: 80 mg Documented By: MEGHNA Benzonatate (Benzonatate 100 Mg Capsule) 100 mg PO TID PRN PRN Reason: Cough Calcium Carbonate (Calcium Carbonate 750 Mg Tab.Chew) 750 mg PO Q4H PRN PRN Reason: Heartburn Doxazosin Mesylate (Doxazosin Mesylate 2 Mg Tablet) 8 mg PO BEDTIME [facility]; Protocol Last Admin: 10/27/23 21:45 Dose: 8 mg Documented By: MEGHNA Doxycycline Monohydrate (Doxycycline Monohydrate 100 Mg Capsule) 100 mg PO BID [facility] Last Admin: 10/28/23 08:30 Dose: 100 mg Documented By: LISA Duloxetine HCl (Duloxetine Hcl 60 Mg Capsule.Dr) 60 mg PO DAILY [facility] Last Admin: 10/28/23 08:31 Dose: 60 mg Documented By: LISA Finasteride (Finasteride 5 Mg Tablet) 5 mg PO DAILY [facility] Last Admin: 10/28/23 08:30 Dose: 5 mg Documented By: LISA Furosemide 200 mg/ Sodium (Chloride) 100 mls @ 2.5 mls/hr IVCONT .Q24H [facility] Last Admin: 10/27/23 18:29 Dose: 5 mg/hr, 2.5 mls/hr Documented By: MIGUEL Lactic Acid (Ammonium Lactate 12 % Lotion 226 Gm Bottle) 1 appl TOPICAL BID [facility]; Protocol Last Admin: 10/28/23 08:48 Dose: 1 appl Documented By: LISA Lactulose (Lactulose 20 Gm/30 Ml Solution) 20 gm PO BID [facility] Last Admin: 10/28/23 10:38 Dose: 20 gm Documented By: LISA Magnesium Hydroxide (Milk Of Magnesia 30 Ml Oral.Susp) 30 ml PO DAILY PRN PRN Reason: Constipation Last Admin: 10/28/23 08:42 Dose: 30 ml Documented By: LISA Melatonin (Melatonin 3 Mg Tablet) 6 mg PO BEDTIME PRN PRN Reason: Insomnia Last Admin: 10/27/23 21:43 Dose: 6 mg Documented By: MEGHNA Methimazole (Methimazole 5 Mg Tablet) 5 mg PO DAILY [facility] Last Admin: 10/28/23 08:31 Dose: 5 mg Documented By: LISA Non-Formulary Medication (Umeclidinium-Vilanterol [Anoro Ellipta]) 1 inhalation PO DAILY [facility] Ondansetron HCl (Ondansetron Hcl 4 Mg/2 Ml Vial) 4 mg IVPUSH Q8H PRN PRN Reason: Nausea and Vomiting Last Admin: 10/28/23 03:34 Dose: 4 mg Documented By: MEGHNA Oxybutynin Chloride (Oxybutynin Chloride Er 5 Mg Tab.Er.24) 10 mg PO DAILY [facility] Last Admin: 10/28/23 08:30 Dose: 10 mg Documented By: LISA Oxycodone HCl (Oxycodone Hcl Immed Release 5 Mg Tablet) 5 mg PO Q4H PRN PRN Reason: Pain, Severe (Pain Scale 7-10) Last Admin: 10/27/23 12:16 Dose: 5 mg Documented By: MIGUEL Oxycodone HCl (Oxycodone Hcl Immed Release 5 Mg Tablet) 5 mg PO BID PRN PRN Reason: Pain, Severe (Pain Scale 7-10) Last Admin: 10/26/23 21:37 Dose: 5 mg Documented By: AMY Pregabalin (Pregabalin 150 Mg Capsule) 150 mg PO TID [facility] Last Admin: 10/28/23 08:31 Dose: 150 mg Documented By: LISA Psyllium Hydrophilic Mucilloid (Psyllium Seed 3.7 Gm Packet) 3.7 gm PO DAILY [facility] Last Admin: 10/28/23 10:38 Dose: 3.7 gm Documented By: LISA Ropinirole HCl (Ropinirole Hcl 2 Mg Tablet) 2 mg PO TID [facility] Last Admin: 10/28/23 08:30 Dose: 2 mg Documented By: LISA Sodium Chloride (0.9 % Sodium Chloride Flush 3 Ml Syringe) 3 ml IVFLUSH QSHIFT [facility] Last Admin: 10/28/23 08:38 Dose: Not Given Documented By: LISA Non-Admin Reason: IV Running Spironolactone (Spironolactone 25 Mg Tablet) 25 mg PO DAILY [facility]; Protocol Last Admin: 10/28/23 08:30 Dose: 25 mg Documented By: LISA Tramadol HCl (Tramadol Hcl 50 Mg Tablet) 50 mg PO Q4H PRN PRN Reason: Pain, Moderate(Pain Scale 4-6) Labs 10/26/23 10:20 10/28/23 05:42 Labs: Laboratory Results - last 24 hr 10/28/23 05:42 Hold Purple Top SEE NOTE Anion Gap 14 Estim Creat Clear Calc 110.9 Estimated GFR 58 Random Glucose 129 H Calcium 9.5 Magnesium 2.0 Assessment and Plan (1) Anasarca: Status: Acute (2) Pulmonary edema: Status: Acute Plan Pt is a 68-year-old male with a PMH significant for paroxysmal AFib on Eliquis and amiodarone, HFrEF, lymphedema with chronic venous stasis, HTN, COPD on 3L home O2, JEFFRY on CPAP, seronegative RA, HTN, overactive bladder, and obesity class 3 who presents to the ED for evaluation of abdominal and testicular swelling x3-4 weeks, worsening in the past few days. Pt will be admitted to the hospital for treatment and further evaluation of anasarca with abd and significant scrotal swelling that has failed outpatient diuretic therapy. Scrotal swelling with overall Anasarca complicated with pulmonary edema Improving CXR showed increase markings and fluid overload negative 8L at least since admission Continue on Lasix drip @5mg/hr Hold on Metolazone today given low K Bautista cathter in place Low-salt diet, fluid restriction Follow lytes, I/O, BMP Daily weights Monitor on telemetry Scrotal cellulitis To complete course of Doxycycline, set to finish on 10/30/2023 Acute Hypokalemia K of 2.7, replacement given follow BMP Constipation Start iber and Lactulose HTN Hold Spironolactone for low BP COPD Not in acute exacerbation Continue home 3L O2 Continue home inhalers Chronic venous stasis Follows with wound care clinic, last seen 2 days prior on 10/23 Rickie wraps daily Ammonium lactate Peripheral neuropathy Continue pregabalin Mood disorder Continue home mood stabalizers Full Code DVT Prophylaxis: On Eliquis Pt will require a hospitalization overnight for treatment of?anasarca including significant testicular swelling that has failed outpatient therapy. Patient will need hospitalization for aggressive diuresing with Lasix drip, as well as close monitoring of cardiac function, electrolytes, and renal function. Quality Stroke Does the patient have a stroke diagnosis?: No VTE Prior VTE?: No VTE Risk Level:: Medical - moderate - high VTE Device Contraindication: Treatment Not Indicated VTE Drug Contraindication: N/A - Med Ordered
[2023-10-28 13:28] LABS: Anion Gap 15 (12-20); Blood Urea Nitrogen 21 mg/dL (9-16); Calcium 9.5 mg/dL (8.4-10.2); Carbon Dioxide 28 mmol/L (22-29); Chloride 95 mmol/L (96-108); Creatinine Clr Calc Pharmacy 116.5; Estimated Glomerular Filt Rate > 60; Glucose Random 145 mg/dL (60-115); Potassium 3.4 mmol/L (3.3-5.1); Sodium 135 mmol/L (135-145)
--- NOTE | 2023-10-28 14:52 | HO.WOUND ---
Wound Consult: Initial 68yr old? Male [place] [facility] [place] - See progress notes and H&P for detailed history.? Wound consult placed for Bilateral Chronic Lower Leg Venous Stasis wounds.? Patient agreeable to assessment and photo documentation.? Patient reports hte lower legs venous dermatitis is chronci and he reports she has treated with the wound clinic on and off for years currently he is treating for the right lower open wound. He reports he only wear compression while active wounds are present - he reports his legs are dependent throughout the day although he reports she is elevating more often when he has an open wound. Patient reports he has farrow wraps at home but he was hesitant to have his bring them in as he does not like to wear them. Lower leg swelling and edema and wound healing correlation discussed with patient he reports understanding but was not agreeable to bringing in his custom wraps. He reports he does use Tubigrip at times but is not able to recall the size he wears and is requesting to not wear compression at this time. Overall the photos seem to reflect worsened sate of his lower legs in terms of pigmentation, althigh his legs are firmly swollen, red and purple they do not appear to be actively infected. Given his lower legs are not weeping at this time and bed mobility and movement are an issue for the patient I will not wrap the whole lower leg as this will only provide friction since there is not drainage to absorb. The patient and direct care nurse understand to notify wound care nurse whould drainage develop. There are various stages of wound healing noted they scabs are dry and stable aside from the right lower leg. The Right lower leg wound is open and moist. The patient should continue to followup with out patient wound clinic for continued care. Right Medial Leg Left Lower Leg Right Lower Leg Right Lateral Lower leg wound Etiology: Venous wound Measurements: 0.45cm x 1cm x 0.2cm Wound Bed: red moist wound bed Drainage / Odor: none noted Edges: ? defined Rupa wound: ? red purple chronic venous dermatitis No Induration, Fluctuance or Warmth noted Pain: denies Goals of Treatment: ? durafiber for moisture management Of note the buttock was assessed while patient was transitioning back to bed - red light purple pigmented intact blanchable tissue noted - no open wounds noted - patient denies pain - MASD noted as patient reports he sweats and sits in his chair often resulting in moisture and heat trapping. Patient educated on the importance of position changes and barrier creams when needed - he reports understanding. Recommendations: 1. Turn and Reposition every 2 hours and as needed for patient comfort.? Use pillows or wedges to support off loading positions. 2. Off Load all bony prominences with use of pillows and heel boots if needed.? Apply Preventative foams where needed. ? 3. Monitor for incontinence and moisture control, use barrier creams when needed for prevention and treatment. 4. Provide adequate and supplemental nutrition.? 5. Continue low air loss mattress - Patient currently on specialty mattress from [employer] - will assess if bariatric bed in house is available 6. When applicable maintain blood glucose levels per Providers order. 7. Bilateral Lower Legs - Elevate lower legs off of surface of bed with use of pillows.? 8. Right Lower Lateral Leg wound - Cleanse with NS, Pat dry.? Apply skin prep to periwound, apply layer of durafiber to open wound beds secure with foam dressing.? Change every 3 days. Re-consult wound care Nurse for wound deterioration or wound changes.
[2023-10-28 15:18] VITALS: BP 113/64; PULSE 104; RESP 18; TEMP 37.4; O2SAT 93
--- NOTE | 2023-10-28 15:59 | P.CDIM_ITS ---
PROVIDER RESPONSE TEXT: To clarify, the appropriate diagnosis supported by the clinical indicators: Chronic respiratory failure: hypoxic QUERY TEXT: PHYSICIAN'S DOCUMENTATION REQUEST Date of Query: 10/28/2023 08:55 AM EDT Patient Name: Dinh Craven Admit Date: 10/26/2023 Dear Florina Chandler MD, A review of the medical record indicates additional documentation may be needed. Please review below and update the documentation accordingly. Clinical Indicators: Patient is on continued home 3L O2 COPD/JEFFRY CPAP pulse ox 91 L HR 103 RR 20 supplemental oxygen Please clarify which of the following accurately represents the patient's respiratory status: Chronic respiratory failure Please specify if Hypoxic, Hypercapnic, or Hypoxic and hypercapnic Acute on chronic respiratory failure Other (explain) Clinically unable to determine (explain) Thank you, Ember Colvin, CCS, CDIS Use of terms such as suspected, likely, concern for, or probable (associated with a specific diagnosi s that is being evaluated, monitored, or treated as if it exists) are acceptable and can be coded in the inpatient se tting, when documented at the time of discharge. Please use your independent medical judgment in providing your response. THIS QUERY IS PART OF THE PERMANENT MEDICAL RECORD
[2023-10-28] MEDS: Furosemide 200 MG in 0.9 % Sodium Chloride 80 ML IVCONT (18:45)
[2023-10-28 19:58] VITALS: BP 124/98; PULSE 96; RESP 16; TEMP 36.5; O2SAT 94
[2023-10-28] MEDS: Doxazosin Mesylate 2 MG TABLET 8 MG PO (21:39)
[2023-10-28] MEDS: Atorvastatin Calcium 80 MG TABLET PO (21:42)
[2023-10-28 22:48] VITALS: RESP 16
[2023-10-29] VITALS (8 sets, daily range): BP systolic 107–144; BP diastolic 61–99; PULSE 81–101; RESP 14–23; TEMP 35.7–36.6; O2SAT 92–99
[2023-10-29 07:37] LABS: Anion Gap 16 (12-20); Blood Urea Nitrogen 17 mg/dL (9-16); Calcium 9.1 mg/dL (8.4-10.2); Carbon Dioxide 32 mmol/L (22-29); Chloride 94 mmol/L (96-108); Creatinine Clr Calc Pharmacy 106.6; Estimated Glomerular Filt Rate 56; Glucose Random 135 mg/dL (60-115); Potassium 2.6 mmol/L (3.3-5.1); Sodium 139 mmol/L (135-145)
[2023-10-29] MEDS: rOPINIRole HCL 2 MG TABLET PO ×3 (08:49→20:26)
[2023-10-29] MEDS: Lactulose 20 GM/30 ML SOLUTION PO (08:49)
[2023-10-29] MEDS: DULoxetine HCl 60 MG CAPSULE.DR PO (08:49)
[2023-10-29] MEDS: Doxycycline Monohydrate 100 MG CAPSULE PO ×2 (08:49→20:26)
[2023-10-29] MEDS: oxyBUTYnin chloride ER 5 MG TAB.ER.24 10 MG PO (08:49)
[2023-10-29] MEDS: Pregabalin 150 MG CAPSULE PO ×3 (08:49→20:27)
[2023-10-29] MEDS: Spironolactone 25 MG TABLET PO ×2 (08:49→20:26)
[2023-10-29] MEDS: Amiodarone HCL 200 MG TABLET PO (08:49)
[2023-10-29] MEDS: Apixaban 5 MG TABLET PO ×2 (08:49→20:26)
[2023-10-29] MEDS: Finasteride 5 MG TABLET PO (08:50)
[2023-10-29] MEDS: methIMAzole 5 MG TABLET PO (08:50)
[2023-10-29] MEDS: Ammonium Lactate 12 % Lotion 226 GM BOTTLE 1 APPL TOPICAL ×2 (08:53→21:38)
[2023-10-29] MEDS: Potassium Chloride/H20 10 MEQ/100 ML PIGGYBACK 100 MEQ IV ×2 (11:17→12:43)
[2023-10-29] MEDS: Potassium Chloride Packet 20 MEQ PACKET 40 MEQ PO ×2 (11:17→20:27)
--- NOTE | 2023-10-29 13:02 | PM.CNCAR ---
History of Present Illness History of Present Illness Date of Service: 10/29/23 Requesting physician: Mg Mccord Chief complaint: Scrotal swelling, RHF Narrative: [age] year gentleman with background history of morbid obesity, physical deconditioning, oxygen dependence and paroxysmal atrial fibrillation. He previously underwent cardioversion and was started on amiodarone which he has been taking regularly and has been in sinus rhythm. He said he started noticing scrotal swelling recently and saw a urologist who started him on antibiotics. His diuretics dose was also doubled by his primary care physician but he continued to have significant scrotal edema and came to the emergency department. He is out of breath with minimal exertion but is saying that this is more or less his baseline at this point. He is on supplemental oxygen and even walking few steps makes him short of breath. He has some peripheral edema but mostly has lymphedema in the legs. We started on diuretics but it appears he also had hypokalemia after that. He is getting potassium supplements. Denying chest pain or palpitations. Labs and imaging reviewed. [facility] Past Medical History Medical History Testicular swelling Osteoarthritis of right knee Melanoma History of cardioversion Hereditary lymphedema Venous insufficiency Morbid obesity Lymphedema COPD (chronic obstructive pulmonary disease) Sensory neuropathy COVID-19 Respiratory failure with hypoxia Restrictive lung disease COPD (chronic obstructive pulmonary disease) JEFFRY on CPAP MATUTE (dyspnea on exertion) Chronic cystitis Bladder outlet obstruction Restless leg syndrome Traumatic complete tear of right rotator cuff Injury of right rotator cuff History of diverticulitis History of umbilical hernia Family History Family History Father Arthritis Diabetes Mother Arthritis Kidney stones Family/Other Arthritis Sister No problems noted. Sister No problems noted. Son No problems noted. Surgical History Surgical History Hx of colonoscopy History of appendectomy History of arthroscopy of left knee Social History Social History Household Members: Spouse Household Members Other:: Floridalma Housing: Condominium Do you presently have visiting nurse or other home services: No Alcohol intake: current Alcohol intake frequency: 0-2 drinks per day Alcohol type: beer Comment: refusing bed alarm Patient Tobacco Use Status: Former Tobacco user Tobacco use type: Cigarette Cigarette Packs Per Day: 1 Cigarettes Per Day: 20.0 Years Smoked: 30 years e-Cigarette/Vaping Use: Never Used Second Hand Smoke Exposure: No Substance Use Type: Marijuana Advance Directives Date on File: 05/16/20 service: No Current occupational status: retired 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 Cognitive needs: No Hearing needs: No Vision needs: No Meds Allergies Allergy/AdvReac Type Severity Reaction Status Date / Time No Known Allergies Allergy Verified 10/26/23 10:02 [No Known Allergies*] Active Medications: Current Medications Acetaminophen (Acetaminophen 325 Mg Tablet) 650 mg PO Q6H PRN PRN Reason: Pain, Mild (Pain Scale 1-3), fever or headache Albuterol Sulfate (Albuterol Sulfate 90 Mcg 8 Gm Inhaler) 2 puff INHALE Q6H PRN PRN Reason: for wheezing Amiodarone HCl (Amiodarone Hcl 200 Mg Tablet) 200 mg PO DAILY [facility] Last Admin: 10/29/23 08:49 Dose: 200 mg Apixaban (Apixaban 5 Mg Tablet) 5 mg PO BID [facility] Last Admin: 10/29/23 08:49 Dose: 5 mg Atorvastatin Calcium (Atorvastatin Calcium 80 Mg Tablet) 80 mg PO BEDTIME [facility] Last Admin: 10/28/23 21:42 Dose: 80 mg Benzonatate (Benzonatate 100 Mg Capsule) 100 mg PO TID PRN PRN Reason: Cough Calcium Carbonate (Calcium Carbonate 750 Mg Tab.Chew) 750 mg PO Q4H PRN PRN Reason: Heartburn Doxazosin Mesylate (Doxazosin Mesylate 2 Mg Tablet) 8 mg PO BEDTIME [facility]; Protocol Last Admin: 10/28/23 21:39 Dose: 8 mg Doxycycline Monohydrate (Doxycycline Monohydrate 100 Mg Capsule) 100 mg PO BID [facility] Last Admin: 10/29/23 08:49 Dose: 100 mg Duloxetine HCl (Duloxetine Hcl 60 Mg Capsule.Dr) 60 mg PO DAILY [facility] Last Admin: 10/29/23 08:49 Dose: 60 mg Finasteride (Finasteride 5 Mg Tablet) 5 mg PO DAILY [facility] Last Admin: 10/29/23 08:50 Dose: 5 mg Furosemide 200 mg/ Sodium (Chloride) 100 mls @ 2.5 mls/hr IVCONT .Q24H [facility] Last Infusion: 10/29/23 12:23 Dose: 0 mg/hr, 0 mls/hr Potassium Chloride (Potassium Chloride/H20) 10 meq in 100 mls @ 100 mls/hr IV Q1H [facility] Stop: 10/29/23 13:14 Last Admin: 10/29/23 12:43 Dose: 100 mls/hr Lactic Acid (Ammonium Lactate 12 % Lotion 226 Gm Bottle) 1 appl TOPICAL BID [facility]; Protocol Last Admin: 10/29/23 08:53 Dose: 1 appl Lactulose (Lactulose 20 Gm/30 Ml Solution) 20 gm PO BID [facility] Last Admin: 10/29/23 08:49 Dose: 20 gm Magnesium Hydroxide (Milk Of Magnesia 30 Ml Oral.Susp) 30 ml PO DAILY PRN PRN Reason: Constipation Last Admin: 10/28/23 08:42 Dose: 30 ml Melatonin (Melatonin 3 Mg Tablet) 6 mg PO BEDTIME PRN PRN Reason: Insomnia Last Admin: 10/27/23 21:43 Dose: 6 mg Methimazole (Methimazole 5 Mg Tablet) 5 mg PO DAILY [facility] Last Admin: 10/29/23 08:50 Dose: 5 mg Non-Formulary Medication (Umeclidinium-Vilanterol [Anoro Ellipta]) 1 inhalation PO DAILY [facility] Ondansetron HCl (Ondansetron Hcl 4 Mg/2 Ml Vial) 4 mg IVPUSH Q8H PRN PRN Reason: Nausea and Vomiting Last Admin: 10/28/23 03:34 Dose: 4 mg Oxybutynin Chloride (Oxybutynin Chloride Er 5 Mg Tab.Er.24) 10 mg PO DAILY [facility] Last Admin: 10/29/23 08:49 Dose: 10 mg Oxycodone HCl (Oxycodone Hcl Immed Release 5 Mg Tablet) 5 mg PO Q4H PRN PRN Reason: Pain, Severe (Pain Scale 7-10) Last Admin: 10/27/23 12:16 Dose: 5 mg Oxycodone HCl (Oxycodone Hcl Immed Release 5 Mg Tablet) 5 mg PO BID PRN PRN Reason: Pain, Severe (Pain Scale 7-10) Last Admin: 10/26/23 21:37 Dose: 5 mg Potassium Chloride (Potassium Chloride Packet 20 Meq Packet) 40 meq PO BID [facility] Last Admin: 10/29/23 11:17 Dose: 40 meq Pregabalin (Pregabalin 150 Mg Capsule) 150 mg PO TID [facility] Last Admin: 10/29/23 08:49 Dose: 150 mg Psyllium Hydrophilic Mucilloid (Psyllium Seed 3.7 Gm Packet) 3.7 gm PO DAILY [facility] Last Admin: 10/29/23 10:01 Dose: Not Given Ropinirole HCl (Ropinirole Hcl 2 Mg Tablet) 2 mg PO TID [facility] Last Admin: 10/29/23 08:49 Dose: 2 mg Sodium Chloride (0.9 % Sodium Chloride Flush 3 Ml Syringe) 3 ml IVFLUSH QSHIFT [facility] Last Admin: 10/29/23 08:54 Dose: Not Given Spironolactone (Spironolactone 25 Mg Tablet) 25 mg PO BID [facility]; Protocol Tramadol HCl (Tramadol Hcl 50 Mg Tablet) 50 mg PO Q4H PRN PRN Reason: Pain, Moderate(Pain Scale 4-6) Home Medications ?Medication ?Instructions ?Recorded ?Confirmed ?Last Taken ?Type albuterol sulfate 90 mcg/actuation 2 puff PO Q6H PRN for wheezing 10/13/22 10/26/23 Unknown History aerosol inhaler spironolactone 25 mg tablet 25 mg PO DAILY 10/26/23 10/26/23 10/26/23 09:00 History tocilizumab 162 mg/0.9 mL 162 mg subcut SA@0900 10/26/23 10/26/23 10/25/23 History subcutaneous pen injector (Actemra ACTPen) Physical Exam Vital Signs: Vital Signs: Last Vital Signs Temp 98 F 10/29/23 11:03 Pulse 91 10/29/23 11:03 Resp 16 10/29/23 11:03 BP 107/61 10/29/23 11:03 Pulse Ox 95 10/29/23 11:03 O2 Del Method Nasal Cannula 10/29/23 11:03 O2 Flow Rate 3 10/29/23 11:03 Oxygen Flow Rate 3 10/26/23 09:59 BMI result Body Mass Index 54.8 GENERAL APPEARANCE: in no acute distress, on supplemental oxygen. Morbidly obese. NECK: no carotid bruit, mild jugular venous distention. SKIN: no suspicious lesions, warm and dry. HEART: no murmurs, regular rate and rhythm. LUNGS: Bilateral end expiratory wheezes. ABDOMEN: soft, nontender. EXTREMITIES: 2+ edema. PERIPHERAL PULSES: equal. NEUROLOGIC: No gross deficits, AAO X 3 Objective Labs and Meds 10/26/23 10:20 10/29/23 06:06 Lab results: Laboratory Results - last 24 hr 10/28/23 10/29/23 12:43 06:06 Hold Purple Top SEE NOTE Sodium 135 139 Potassium 3.4 D 2.6 L* D Chloride 95 L 94 L Carbon Dioxide 28 32 H Anion Gap 15 16 BUN 21 H 17 H Creatinine 1.18 1.29 Estim Creat Clear Calc 116.5 106.6 Estimated GFR > 60 56 Random Glucose 145 H 135 H Calcium 9.5 9.1 Magnesium 2.0 Assessment and Plan (1) Congestive heart failure: Qualifiers: Heart failure type: combined systolic and diastolic Status: Acute Plan Pleasant 68-year-old gentleman presenting with congestive heart failure right more than left-sided. He has morbid obesity and sleep apnea and was compliant with CPAP. He also has paroxysmal atrial fibrillation and has been on anticoagulation. His EKG and telemetry currently is showing sinus rhythm. It appears he developed progressive volume overload and came to emergency department. He had significant scrotal edema which was the main concern that brought him to ER. In the office he mostly has some peripheral edema and due to his body habitus exam is quite challenging but overall he appears to be volume overloaded. Agree with IV diuretics. Increase spironolactone 25 mg twice a day. Monitor potassium and magnesium closely and replete aggressively. Check echocardiogram to assess RV function. Previously he had low normal right ventricular function. He is saying he had 1 episode of urinary tract infection in the past. As he improves we will see whether we should add Jardiance. Thank you for allowing me to participate in the care of your patient. Please feel free to contact me if you have any questions. Procedures Date of Service Date of Service: 10/29/23
--- NOTE | 2023-10-29 16:38 | HO.PM.IMPN ---
Subjective Subjective Date of Service: 10/29/23 Interval History: Seen in f/u for anasarca, heart failure, cellulitis of the scrotum. Overall is better, still swollen, negative 13.8 L Review of Systems Review of Systems: Yes all other systems are reviewed and are negative Physical Exam Vital Signs: Vital Signs: Last Vital Signs Temp 97.6 F 10/29/23 15:43 Pulse 93 10/29/23 15:43 Resp 18 10/29/23 15:43 BP 129/64 10/29/23 15:43 Pulse Ox 99 10/29/23 15:43 O2 Del Method Nasal Cannula 10/29/23 15:43 O2 Flow Rate 3 10/29/23 15:43 Oxygen Flow Rate 3 10/26/23 09:59 BMI result Body Mass Index 54.8 GENERAL APPEARANCE: in no acute distress, on supplemental oxygen. Morbidly obese. NECK: no carotid bruit, mild jugular venous distention. SKIN: no suspicious lesions, warm and dry. HEART: no murmurs, regular rate and rhythm. LUNGS: Bilateral end expiratory wheezes. ABDOMEN: soft, nontender. EXTREMITIES: 2+ edema. PERIPHERAL PULSES: equal. NEUROLOGIC: No gross deficits, AAO X 3 Objective Data Active Medications Acetaminophen (Acetaminophen 325 Mg Tablet) 650 mg PO Q6H PRN PRN Reason: Pain, Mild (Pain Scale 1-3), fever or headache Albuterol Sulfate (Albuterol Sulfate 90 Mcg 8 Gm Inhaler) 2 puff INHALE Q6H PRN PRN Reason: for wheezing Amiodarone HCl (Amiodarone Hcl 200 Mg Tablet) 200 mg PO DAILY [facility] Last Admin: 10/29/23 08:49 Dose: 200 mg Documented By: MIRZA Apixaban (Apixaban 5 Mg Tablet) 5 mg PO BID [facility] Last Admin: 10/29/23 08:49 Dose: 5 mg Documented By: MIRZA Atorvastatin Calcium (Atorvastatin Calcium 80 Mg Tablet) 80 mg PO BEDTIME [facility] Last Admin: 10/28/23 21:42 Dose: 80 mg Documented By: DOBROB Benzonatate (Benzonatate 100 Mg Capsule) 100 mg PO TID PRN PRN Reason: Cough Calcium Carbonate (Calcium Carbonate 750 Mg Tab.Chew) 750 mg PO Q4H PRN PRN Reason: Heartburn Doxazosin Mesylate (Doxazosin Mesylate 2 Mg Tablet) 8 mg PO BEDTIME [facility]; Protocol Last Admin: 10/28/23 21:39 Dose: 8 mg Documented By: BRORenetta Doxycycline Monohydrate (Doxycycline Monohydrate 100 Mg Capsule) 100 mg PO BID [facility] Last Admin: 10/29/23 08:49 Dose: 100 mg Documented By: MIRZA Duloxetine HCl (Duloxetine Hcl 60 Mg Capsule.Dr) 60 mg PO DAILY [facility] Last Admin: 10/29/23 08:49 Dose: 60 mg Documented By: MIRZA Finasteride (Finasteride 5 Mg Tablet) 5 mg PO DAILY [facility] Last Admin: 10/29/23 08:50 Dose: 5 mg Documented By: MIRZA Furosemide 200 mg/ Sodium (Chloride) 100 mls @ 2.5 mls/hr IVCONT .Q24H [facility] Last Infusion: 10/29/23 12:23 Dose: 0 mg/hr, 0 mls/hr Documented By: MIRZA Lactic Acid (Ammonium Lactate 12 % Lotion 226 Gm Bottle) 1 appl TOPICAL BID [facility]; Protocol Last Admin: 10/29/23 08:53 Dose: 1 appl Documented By: MIRZA Lactulose (Lactulose 20 Gm/30 Ml Solution) 20 gm PO BID [facility] Last Admin: 10/29/23 08:49 Dose: 20 gm Documented By: MIRZA Magnesium Hydroxide (Milk Of Magnesia 30 Ml Oral.Susp) 30 ml PO DAILY PRN PRN Reason: Constipation Last Admin: 10/28/23 08:42 Dose: 30 ml Documented By: LISA Melatonin (Melatonin 3 Mg Tablet) 6 mg PO BEDTIME PRN PRN Reason: Insomnia Last Admin: 10/27/23 21:43 Dose: 6 mg Documented By: MEGHNA Methimazole (Methimazole 5 Mg Tablet) 5 mg PO DAILY [facility] Last Admin: 10/29/23 08:50 Dose: 5 mg Documented By: MIRZA Non-Formulary Medication (Umeclidinium-Vilanterol [Anoro Ellipta]) 1 inhalation PO DAILY [facility] Ondansetron HCl (Ondansetron Hcl 4 Mg/2 Ml Vial) 4 mg IVPUSH Q8H PRN PRN Reason: Nausea and Vomiting Last Admin: 10/28/23 03:34 Dose: 4 mg Documented By: MEGHNA Oxybutynin Chloride (Oxybutynin Chloride Er 5 Mg Tab.Er.24) 10 mg PO DAILY [facility] Last Admin: 10/29/23 08:49 Dose: 10 mg Documented By: MIRZA Oxycodone HCl (Oxycodone Hcl Immed Release 5 Mg Tablet) 5 mg PO Q4H PRN PRN Reason: Pain, Severe (Pain Scale 7-10) Last Admin: 10/27/23 12:16 Dose: 5 mg Documented By: MIGUEL Oxycodone HCl (Oxycodone Hcl Immed Release 5 Mg Tablet) 5 mg PO BID PRN PRN Reason: Pain, Severe (Pain Scale 7-10) Last Admin: 10/26/23 21:37 Dose: 5 mg Documented By: AMY Potassium Chloride (Potassium Chloride Packet 20 Meq Packet) 40 meq PO BID [facility] Last Admin: 10/29/23 11:17 Dose: 40 meq Documented By: MIRZA Pregabalin (Pregabalin 150 Mg Capsule) 150 mg PO TID [facility] Last Admin: 10/29/23 14:27 Dose: 150 mg Documented By: JOSE Psyllium Hydrophilic Mucilloid (Psyllium Seed 3.7 Gm Packet) 3.7 gm PO DAILY [facility] Last Admin: 10/29/23 10:01 Dose: Not Given Documented By: MIRZA Non-Admin Reason: lactulose given Ropinirole HCl (Ropinirole Hcl 2 Mg Tablet) 2 mg PO TID [facility] Last Admin: 10/29/23 14:27 Dose: 2 mg Documented By: JOSE Sodium Chloride (0.9 % Sodium Chloride Flush 3 Ml Syringe) [facility] Last Admin: 10/29/23 13:51 Dose: Not Given Documented By: JOSE Non-Admin Reason: Previously Administered Spironolactone (Spironolactone 25 Mg Tablet) 25 mg PO BID [facility]; Protocol Tramadol HCl (Tramadol Hcl 50 Mg Tablet) 50 mg PO Q4H PRN PRN Reason: Pain, Moderate(Pain Scale 4-6) Labs 10/26/23 10:20 10/29/23 06:06 Labs: Laboratory Results - last 24 hr 10/29/23 06:06 Hold Purple Top SEE NOTE Anion Gap 16 Estim Creat Clear Calc 106.6 Estimated GFR 56 Random Glucose 135 H Calcium 9.1 Magnesium 2.0 Assessment and Plan (1) Anasarca: Status: Acute (2) Pulmonary edema: Status: Acute Plan Pt is a 68-year-old male with a PMH significant for paroxysmal AFib on Eliquis and amiodarone, HFrEF, lymphedema with chronic venous stasis, HTN, COPD on 3L home O2, JEFFRY on CPAP, seronegative RA, HTN, overactive bladder, and obesity class 3 who presents to the ED for evaluation of abdominal and testicular swelling x3-4 weeks, worsening in the past few days. Pt will be admitted to the hospital for treatment and further evaluation of anasarca with abd and significant scrotal swelling that has failed outpatient diuretic therapy. Scrotal swelling with overall Anasarca complicated with pulmonary edema Improving, so for negative 13.8 liters Continue on Lasix drip @5mg/hr Bautista cathter in place Low-salt diet, fluid restriction Follow malia, I/O, BMP Daily weights Monitor on telemetry cardiology consult, was due for follow up with DR. King this friday Aggresive replacement of potassium Scrotal cellulitis To complete course of Doxycycline, set to finish on 10/30/2023 Acute Hypokalemia, K of 2.6 replace with IV and PO, mag is 2 added Aldactone Daily BMP Constipation bowel regimen including enema HTN--resume aldactone to help with k retention as well COPD Not in acute exacerbation Continue home 3L O2 Continue home inhalers Chronic venous stasis Follows with wound care clinic, last seen 2 days prior on 10/23 Rickie wraps daily Ammonium lactate Peripheral neuropathy Continue pregabalin Mood disorder Continue home mood stabalizers Full Code DVT Prophylaxis: On Eliquis Pt will require a hospitalization overnight for treatment of?anasarca including significant testicular swelling that has failed outpatient therapy. Patient will need hospitalization for aggressive diuresing with Lasix drip, as well as close monitoring of cardiac function, electrolytes, and renal function. Quality Stroke Does the patient have a stroke diagnosis?: No VTE Prior VTE?: No VTE Risk Level:: Medical - moderate - high VTE Device Contraindication: Treatment Not Indicated VTE Drug Contraindication: N/A - Med Ordered
[2023-10-29 18:00] LABS: Anion Gap 16 (12-20); Blood Urea Nitrogen 20 mg/dL (9-16); Calcium 9.1 mg/dL (8.4-10.2); Carbon Dioxide 29 mmol/L (22-29); Chloride 94 mmol/L (96-108); Estimated Glomerular Filt Rate 55; Glucose Random 136 mg/dL (60-115); Potassium 3.2 mmol/L (3.3-5.1); Sodium 136 mmol/L (135-145)
[2023-10-29] MEDS: Atorvastatin Calcium 80 MG TABLET PO (20:27)
[2023-10-29] MEDS: Furosemide 200 MG in 0.9 % Sodium Chloride 80 ML IVCONT (20:27)
[2023-10-29] MEDS: Doxazosin Mesylate 2 MG TABLET 8 MG PO (20:27)
[2023-10-29] MEDS: Sodium Phosphate,Mono-Dibasic 133 ML ENEMA PR (22:16)
[2023-10-30 03:28] VITALS: BP 104/57; PULSE 84; RESP 19; TEMP 36.2; O2SAT 93
--- NOTE | 2023-10-30 07:00 | CA_ITS ---
Transthoracic Echocardiogram Patient (Last, First, Middle): Dinh Craven R Gender: Male Date of : 1955 Age: 68 Procedure Date: 10/30/2023 Procedure Type: Transthoracic [place] [facility] [place]: 193.04 cm Weight: 204.12 kg BSA: 3.13 m2 Heart Rate: 86 bpm BP: 126 / 75 mmHg Paint Pourer: MICHAELLE Referring MD: Dejan King MD Symptoms: right heart failure Study Quality: Technically Difficult w/Contrast ECG Rhythm: Sinus Conclusions: - Normal left ventricular cavity size. The left ventricular systolic function is hyperdynamic. The visually estimated ejection fraction is >70%. - Mildly increased right ventricular cavity size. There is normal right ventricular systolic function. - There is mild dilatation of the ascending aorta measuring 3.70 cm. Findings Procedure Information Contrast agent, definity, is being given per protocol without apparent complications. Left Ventricle Normal left ventricular cavity size. The left ventricular systolic function is hyperdynamic. The visually estimated ejection fraction is >70%. There is no evidence of regional wall motion abnormalities. Diastolic function is indeterminate on the basis of available data. Right Ventricle Mildly increased right ventricular cavity size. There is normal right ventricular systolic function. Atria The left atrium was not well visualized. Aortic Valve The aortic valve structure and function is likely normal. There is no aortic valve stenosis. There is no aortic valve regurgitation. Mitral Valve Likely normal mitral valve structure and function. There is no mitral valve regurgitation. There is no mitral valve stenosis. Pulmonic Valve The pulmonic valve was not well visualized. Tricuspid Valve The tricuspid valve was not well visualized. Tricuspid regurgitation envelope is inadequate for calculation of right ventricular systolic pressure. Indeterminate right atrial pressure. Great Vessels There is mild dilatation of the ascending aorta measuring 3.70 cm. Venous The inferior vena cava was not well visualized. Pericardium/Pleural There is no evidence of pericardial effusion. Prior Study Comparison No significant change compared to prior study dated: 10/10/2022. Hyperdynamic LV, mild RV dilation with normal function. Measurements 2D Linear Measurements IVSd: 1.16 0.6-0.9/0.6-1.0 cm LVIDd: 4.77 3.9-5.3/4.2-5.9 cm LVIDd Index: 1.52 2.4-3.2/2.2-3.1 cm/m2 LVIDs: 2.59 2.0-3.6 cm LVPWd: 1.02 0.7-1.1 cm LA Diam: 3.20 2.7-3.8/3.0-4.0 cm LAIDs Index: 1.02 1.5-2.3 cm/m2 LV Mass: 236.26 67-162/88-224 g LV Mass Index: 75.48 43-95/49-115 g/m2 LVOT Diam: 2.10 3.0+(-)1.3 cm 2D Systolic Function EF 4C: 76.30 >55% EF 2C: 64.10 >55% EF BiP: 69.60 >55% Mitral Valve MV Pk E: 0.52 MV PK A: 0.75 MV Decel Time: 156.00 E/A: 0.70 E'Lateral: 9.57 E'Medial: 11.00 E/E' Med: 4.80 E/E' Lat: 5.50 PHT: 46.00 MVA PHT: 4.78 Decel [place]: 3.36 Aortic Valve AoV Pk Usman: 1.44 AoV Mn Usman: 1.07 AoV VTI: 0.24 AoV Pk Grad: 8.00 Aov Mn Grad: 5.00 NICKOLAS Cont.VTI: 2.89 LVOT LVOT Pk Usman: 1.23 LVOT Mn Usman: 0.87 LVOT VTI: 0.20 LVOT Pk Grad: 6.00 LVOT Mn Grad: 3.00 LVOT Diam: 2.10 LVOT Area: 3.46 Diastolic Function MV Pk E: 0.52 MV Pk A: 0.75 E/A: 0.70 E'Medial: 11.00 E/E' Med: 4.80 E' Laterial: 9.57 E/E' Lat: 5.50 Right Ventricle TAPSE (mm): 25.30 TVS' Usman: 13.10 Great Vessels Aorta Sinus of Valsalva: 4.20 2.0-3.5 cm Ao Asc: 3.70 2.1-3.4 cm Updated in Other Vendor System with Status of Final Dejan King MD electronically signed on 10/30/2023 9:38:50 PM with status of Final
--- NOTE | 2023-10-30 07:28 | P.PNIM_ITS ---
Subjective Subjective Date of Service: 10/30/23 Interval History: Seen in f/u for anasarca, heart failure, cellulitis of the scrotum. Overall is better, still swollen, negative 15.3L, Physical Exam 2 Vital Signs: Vital Signs: Last Vital Signs Temp 97.2 F 10/30/23 03:28 Pulse 84 10/30/23 03:28 Resp 19 10/30/23 03:28 BP 104/57 L 10/30/23 03:28 Pulse Ox 93 10/30/23 03:28 O2 Del Method CPAP 10/30/23 03:28 O2 Flow Rate 3 10/29/23 15:43 Oxygen Flow Rate 3 10/26/23 09:59 BMI result Body Mass Index 54.8 GENERAL APPEARANCE: in no acute distress, on supplemental oxygen. Morbidly obese. NECK: no carotid bruit, mild jugular venous distention. SKIN: no suspicious lesions, warm and dry. HEART: no murmurs, regular rate and rhythm. LUNGS: Bilateral end expiratory wheezes. ABDOMEN: soft, nontender. EXTREMITIES: 3+ edema. PERIPHERAL PULSES: equal. SKin: chronic venous stais changes of both leg NEUROLOGIC: No gross deficits, AAO X 3 Objective Data Active Medications Acetaminophen (Acetaminophen 325 Mg Tablet) 650 mg PO Q6H PRN PRN Reason: Pain, Mild (Pain Scale 1-3), fever or headache Albuterol Sulfate (Albuterol Sulfate 90 Mcg 8 Gm Inhaler) 2 puff INHALE Q6H PRN PRN Reason: for wheezing Amiodarone HCl (Amiodarone Hcl 200 Mg Tablet) 200 mg PO DAILY [facility] Last Admin: 10/29/23 08:49 Dose: 200 mg Documented By: MIRZA Apixaban (Apixaban 5 Mg Tablet) 5 mg PO BID [facility] Last Admin: 10/29/23 20:26 Dose: 5 mg Documented By: MARJ Atorvastatin Calcium (Atorvastatin Calcium 80 Mg Tablet) 80 mg PO BEDTIME [facility] Last Admin: 10/29/23 20:27 Dose: 80 mg Documented By: MARJ Benzonatate (Benzonatate 100 Mg Capsule) 100 mg PO TID PRN PRN Reason: Cough Calcium Carbonate (Calcium Carbonate 750 Mg Tab.Chew) 750 mg PO Q4H PRN PRN Reason: Heartburn Doxazosin Mesylate (Doxazosin Mesylate 2 Mg Tablet) 8 mg PO BEDTIME [facility]; Protocol Last Admin: 10/29/23 20:27 Dose: 8 mg Documented By: MARJ Doxycycline Monohydrate (Doxycycline Monohydrate 100 Mg Capsule) 100 mg PO BID [facility] Last Admin: 10/29/23 20:26 Dose: 100 mg Documented By: MARJ Duloxetine HCl (Duloxetine Hcl 60 Mg Capsule.Dr) 60 mg PO DAILY [facility] Last Admin: 10/29/23 08:49 Dose: 60 mg Documented By: MIRZA Finasteride (Finasteride 5 Mg Tablet) 5 mg PO DAILY [facility] Last Admin: 10/29/23 08:50 Dose: 5 mg Documented By: MIRZA Furosemide 200 mg/ Sodium (Chloride) 100 mls @ 2.5 mls/hr IVCONT .Q24H [facility] Last Admin: 10/29/23 20:27 Dose: 5 mg/hr, 2.5 mls/hr Documented By: MARJ Lactic Acid (Ammonium Lactate 12 % Lotion 226 Gm Bottle) 1 appl TOPICAL BID [facility]; Protocol Last Admin: 10/29/23 21:38 Dose: 1 appl Documented By: MARJ Lactulose (Lactulose 20 Gm/30 Ml Solution) 20 gm PO BID [facility] Last Admin: 10/29/23 20:36 Dose: Not Given Documented By: MARJ Non-Admin Reason: Patient Refused Magnesium Hydroxide (Milk Of Magnesia 30 Ml Oral.Susp) 30 ml PO DAILY PRN PRN Reason: Constipation Last Admin: 10/28/23 08:42 Dose: 30 ml Documented By: LISA Melatonin (Melatonin 3 Mg Tablet) 6 mg PO BEDTIME PRN PRN Reason: Insomnia Last Admin: 10/27/23 21:43 Dose: 6 mg Documented By: MEGHNA Methimazole (Methimazole 5 Mg Tablet) 5 mg PO DAILY [facility] Last Admin: 10/29/23 08:50 Dose: 5 mg Documented By: MIRZA Non-Formulary Medication (Umeclidinium-Vilanterol [Anoro Ellipta]) 1 inhalation PO DAILY [facility] Ondansetron HCl (Ondansetron Hcl 4 Mg/2 Ml Vial) 4 mg IVPUSH Q8H PRN PRN Reason: Nausea and Vomiting Last Admin: 10/28/23 03:34 Dose: 4 mg Documented By: MEGHNA Oxybutynin Chloride (Oxybutynin Chloride Er 5 Mg Tab.Er.24) 10 mg PO DAILY [facility] Last Admin: 10/29/23 08:49 Dose: 10 mg Documented By: MIRZA Oxycodone HCl (Oxycodone Hcl Immed Release 5 Mg Tablet) 5 mg PO Q4H PRN PRN Reason: Pain, Severe (Pain Scale 7-10) Last Admin: 10/27/23 12:16 Dose: 5 mg Documented By: MIGUEL Oxycodone HCl (Oxycodone Hcl Immed Release 5 Mg Tablet) 5 mg PO BID PRN PRN Reason: Pain, Severe (Pain Scale 7-10) Last Admin: 10/26/23 21:37 Dose: 5 mg Documented By: AMY Potassium Chloride (Potassium Chloride Packet 20 Meq Packet) 40 meq PO BID [facility] Last Admin: 10/29/23 20:27 Dose: 40 meq Documented By: MARJ Pregabalin (Pregabalin 150 Mg Capsule) 150 mg PO TID [facility] Last Admin: 10/29/23 20:27 Dose: 150 mg Documented By: MARJ Psyllium Hydrophilic Mucilloid (Psyllium Seed 3.7 Gm Packet) 3.7 gm PO DAILY [facility] Last Admin: 10/29/23 10:01 Dose: Not Given Documented By: MIRZA Non-Admin Reason: lactulose given Ropinirole HCl (Ropinirole Hcl 2 Mg Tablet) 2 mg PO TID [facility] Last Admin: 10/29/23 20:26 Dose: 2 mg Documented By: MARJ Sodium Biphosphate/Sodium Phosphate (Sodium Phosphate,[place]-Dibasic 133 Ml Enema) 133 ml [place] DAILY PRN PRN Reason: Constipation Last Admin: 10/29/23 22:16 Dose: 133 ml Documented By: MARJ Sodium Chloride (0.9 % Sodium Chloride Flush 3 Ml Syringe) 3 ml IVFLUSH QSHIFT [facility] Last Admin: 10/30/23 01:04 Dose: Not Given Documented By: MARJ Non-Admin Reason: IV Running Spironolactone (Spironolactone 25 Mg Tablet) 25 mg PO BID [facility]; Protocol Last Admin: 10/29/23 20:26 Dose: 25 mg Documented By: MARJ Tramadol HCl (Tramadol Hcl 50 Mg Tablet) 50 mg PO Q4H PRN PRN Reason: Pain, Moderate(Pain Scale 4-6) Labs 10/26/23 10:20 10/29/23 17:36 Labs: Laboratory Results - last 24 hr 10/29/23 10/29/23 10/30/23 06:06 17:36 06:18 Hold Purple Top SEE NOTE Anion Gap 16 16 Estim Creat Clear Calc 106.6 105.0 Estimated GFR 56 55 Random Glucose 135 H 136 H Calcium 9.1 9.1 Magnesium 2.0 Assessment and Plan (1) Anasarca: Status: Acute (2) Pulmonary edema: Status: Acute Plan 68-year-old male with a PMH significant for paroxysmal AFib on Eliquis and amiodarone, HFrEF, lymphedema with chronic venous stasis, HTN, COPD on 3L home O2, JEFFRY on CPAP, seronegative RA, HTN, overactive bladder, and obesity class 3 who presents to the ED for evaluation of abdominal and testicular swelling x3-4 weeks, worsening in the past few days. Admitted for anasarca with abd and significant scrotal swelling that has failed outpatient diuretic therapy. Scrotal swelling, Anasarca and pulmonary edema Improving, so for negative 15.3 liters Continue on Lasix drip @5mg/hr Low-salt diet, fluid restriction Follow lytes, I/O, BMP, replace K as needed cardiology following Aggresive replacement of potassium echocardiogram Scrotal cellulitis To complete course of Doxycycline, set to finish on 10/30/2023 Acute Hypokalemia, K of 2.6 replace with IV and PO, mag is 2 added Aldactone Daily BMP Constipation bowel regimen including enema HTN--resume aldactone to help with k retention as well COPD Not in acute exacerbation Continue home 3L O2 Continue home inhalers Chronic venous stasis Follows with wound care clinic, last seen 2 days prior on 10/23 Rickie wraps daily Ammonium lactate Peripheral neuropathy Continue pregabalin Mood disorder Continue home mood stabalizers Full Code DVT Prophylaxis: On Eliquis need for inpt: IV diuretics for pulmonary edema, frequent electrolytes check and replacement Quality Stroke Does the patient have a stroke diagnosis?: No VTE Prior VTE?: No VTE Risk Level:: Medical - moderate - high VTE Device Contraindication: Treatment Not Indicated VTE Drug Contraindication: N/A - Med Ordered
[2023-10-30 07:32] LABS: Anion Gap 16 (12-20); Blood Urea Nitrogen 19 mg/dL (9-16); Calcium 8.9 mg/dL (8.4-10.2); Carbon Dioxide 30 mmol/L (22-29); Chloride 93 mmol/L (96-108); Creatinine Clr Calc Pharmacy 111.8; Estimated Glomerular Filt Rate 59; Glucose Random 138 mg/dL (60-115); Potassium 2.6 mmol/L (3.3-5.1); Sodium 136 mmol/L (135-145)
[2023-10-30] MEDS: Potassium Chloride Packet 20 MEQ PACKET 40 MEQ PO (07:41)
[2023-10-30] MEDS: Potassium Chloride/H20 10 MEQ/100 ML PIGGYBACK 100 MEQ IV ×2 (07:41→09:20)
[2023-10-30] MEDS: Lactulose 20 GM/30 ML SOLUTION PO ×2 (07:42→21:51)
[2023-10-30] MEDS: 0.9 % Sodium Chloride Flush 3 ML SYRINGE IVFLUSH ×2 (07:43→14:08)
[2023-10-30 07:54] VITALS: BP 109/71; PULSE 95; RESP 18; TEMP 36.1; O2SAT 93
[2023-10-30] MEDS: Spironolactone 25 MG TABLET PO ×2 (08:34→21:51)
[2023-10-30] MEDS: Amiodarone HCL 200 MG TABLET PO (08:35)
[2023-10-30] MEDS: Finasteride 5 MG TABLET PO (08:35)
[2023-10-30] MEDS: oxyBUTYnin chloride ER 5 MG TAB.ER.24 10 MG PO (08:35)
[2023-10-30] MEDS: Doxycycline Monohydrate 100 MG CAPSULE PO ×2 (08:35→21:51)
[2023-10-30] MEDS: Pregabalin 150 MG CAPSULE PO ×3 (08:35→21:51)
[2023-10-30] MEDS: methIMAzole 5 MG TABLET PO (08:35)
[2023-10-30] MEDS: DULoxetine HCl 60 MG CAPSULE.DR PO (08:36)
[2023-10-30] MEDS: rOPINIRole HCL 2 MG TABLET PO ×3 (08:36→21:51)
[2023-10-30] MEDS: Apixaban 5 MG TABLET PO ×2 (08:36→21:57)
[2023-10-30] MEDS: Psyllium seed 3.7 GM PACKET PO (08:36)
[2023-10-30] MEDS: Ammonium Lactate 12 % Lotion 226 GM BOTTLE 1 APPL TOPICAL ×2 (09:20→21:29)
--- NOTE | 2023-10-30 11:37 | PM.PNCARD ---
Subjective Subjective Date of Service: 10/30/23 Interval history: Seen examined at bedside. Has been aggressively diuresed and has significant hypokalemia. We held the Lasix drip this morning. Physical Exam Vital Signs: Last Vital Signs Temp 96.9 F 10/30/23 07:54 Pulse 95 10/30/23 07:54 Resp 18 10/30/23 07:54 BP 109/71 10/30/23 07:54 Pulse Ox 93 10/30/23 07:54 O2 Del Method Room Air 10/30/23 07:54 O2 Flow Rate 3 10/29/23 15:43 Oxygen Flow Rate 3 10/26/23 09:59 BMI result Body Mass Index 54.8 GENERAL APPEARANCE: in no acute distress, on supplemental oxygen. Morbidly obese. NECK: no carotid bruit, mild jugular venous distention. SKIN: no suspicious lesions, warm and dry. HEART: no murmurs, regular rate and rhythm. LUNGS: Bilateral end expiratory wheezes. ABDOMEN: soft, nontender. EXTREMITIES: 2+ edema. Significant scrotal edema. PERIPHERAL PULSES: equal. NEUROLOGIC: No gross deficits, AAO X 3 Objective Labs and Meds 10/26/23 10:20 10/30/23 06:18 Lab results: Laboratory Results - last 24 hr 10/29/23 10/30/23 17:36 06:18 Hold Purple Top SEE NOTE Sodium 136 136 Potassium 3.2 L D 2.6 L* Chloride 94 L 93 L Carbon Dioxide 29 30 H Anion Gap 16 16 BUN 20 H 19 H Creatinine 1.31 1.23 Estim Creat Clear Calc 105.0 111.8 Estimated GFR 55 59 Random Glucose 136 H 138 H Calcium 9.1 8.9 Magnesium 2.0 Progress Note: A&P Assessment and plan (1) Congestive heart failure: Status: Acute Plan Pleasant 68 year gentleman presenting with a quarter on chronic congestive heart failure. Right more than left-sided failure. He was aggressively diuresed with Lasix drip with improvement in volume status but unfortunately has significant hypokalemia at this point. Lasix drip is on hold currently. Replete the potassium aggressively. Can increase the spironolactone to 50 mg twice a day. Also monitor magnesium and replete as needed. As potassium improves he should be restarted on diuretics. He can be changed to bolus doses based on the rate of the drip he was getting. Currently I think we avoid Jardiance. We will follow along with you. Thank you for allowing me to participate in the care of your patient. Please feel free to contact me if you have any questions. Time Spent With Patient Time: Total time managing care of this patient today ____ minutes. Progress Note: Quality Stroke Does the patient have a stroke diagnosis?: No Procedures Date of Service Date of Service: 10/30/23
[2023-10-30 11:54] VITALS: BP 126/75; PULSE 84; RESP 16; TEMP 36.2; O2SAT 94
[2023-10-30 13:09] LABS: Anion Gap 14 (12-20); Carbon Dioxide 30 mmol/L (22-29); Chloride 95 mmol/L (96-108); Potassium 3.2 mmol/L (3.3-5.1); Sodium 136 mmol/L (135-145)
--- NOTE | 2023-10-30 14:03 | PC.NURSE ---
Verified with DR Mccord , : give Potassium Chloride 40 PO mg now , do not give the now dose of 20 MEQ
[2023-10-30] MEDS: Potassium Chloride ER 20 MEQ TAB.ER.PRT 40 MEQ PO ×2 (14:06→21:51)
--- NOTE | 2023-10-30 14:34 | PC.NURSE ---
per cardiology DR King : dc lasix drip , start Lasix 40 mg IV BID
[2023-10-30 16:05] VITALS: BP 135/73; PULSE 93; RESP 18; TEMP 37.1; O2SAT 95
[2023-10-30] MEDS: Furosemide 40 MG/4 ML VIAL IVPUSH (17:22)
[2023-10-30 20:00] VITALS: BP 133/63; PULSE 86; RESP 23; TEMP 36.6; O2SAT 94
[2023-10-30 20:42] LABS: Anion Gap 13 (12-20); Carbon Dioxide 33 mmol/L (22-29); Chloride 94 mmol/L (96-108); Potassium 3.2 mmol/L (3.3-5.1); Sodium 137 mmol/L (135-145)
[2023-10-30] MEDS: Atorvastatin Calcium 80 MG TABLET PO (21:51)
[2023-10-30] MEDS: Doxazosin Mesylate 2 MG TABLET 8 MG PO (21:51)
[2023-10-30 23:25] VITALS: BP 149/66; PULSE 83; RESP 23; TEMP 36.3; O2SAT 94
[2023-10-31] VITALS (7 sets, daily range): BP systolic 123–148; BP diastolic 59–76; PULSE 63–86; RESP 18–23; TEMP 35.6–37.2; O2SAT 92–99
[2023-10-31] MEDS: 0.9 % Sodium Chloride Flush 3 ML SYRINGE IVFLUSH ×3 (05:29→15:05)
[2023-10-31] MEDS: ondansetron HCL 4 MG/2 ML VIAL IVPUSH (05:32)
--- NOTE | 2023-10-31 06:14 | P.PNIM_ITS ---
Subjective Subjective Date of Service: 10/31/23 Interval History: Seen and examined. She continues to feel better and noting decrease in bodily swelling, potassium level is better, IV Lasix drip changed to IV Lasix push finally has had a bowel movment with enema Physical Exam 2 Vital Signs: Vital Signs: Last Vital Signs Temp 97.7 F 10/31/23 03:46 Pulse 82 10/31/23 03:46 Resp 23 H 10/31/23 03:46 BP 127/60 10/31/23 03:46 Pulse Ox 92 10/31/23 03:46 O2 Del Method Nasal Cannula 10/31/23 03:46 O2 Flow Rate 3 10/30/23 16:05 Oxygen Flow Rate 3 10/26/23 09:59 BMI result Body Mass Index 54.8 General: AO X 3, no acute distress Resp: CTA bilateral CVS: S1,S2, iregular GI: +BS, NT, no distention : scrotal edema is much reduced Skin: No rash, serina stasis dermatitis changes to both legs Neuro: motor grossly intact Psych: appropriate affect Objective Data Active Medications Acetaminophen (Acetaminophen 325 Mg Tablet) 650 mg PO Q6H PRN PRN Reason: Pain, Mild (Pain Scale 1-3), fever or headache Albuterol Sulfate (Albuterol Sulfate 90 Mcg 8 Gm Inhaler) 2 puff INHALE Q6H PRN PRN Reason: for wheezing Amiodarone HCl (Amiodarone Hcl 200 Mg Tablet) 200 mg PO DAILY [facility] Last Admin: 10/30/23 08:35 Dose: 200 mg Documented By: AKOSUA Apixaban (Apixaban 5 Mg Tablet) 5 mg PO BID [facility] Last Admin: 10/30/23 21:57 Dose: 5 mg Documented By: MARJ Atorvastatin Calcium (Atorvastatin Calcium 80 Mg Tablet) 80 mg PO BEDTIME [facility] Last Admin: 10/30/23 21:51 Dose: 80 mg Documented By: MARJ Benzonatate (Benzonatate 100 Mg Capsule) 100 mg PO TID PRN PRN Reason: Cough Calcium Carbonate (Calcium Carbonate 750 Mg Tab.Chew) 750 mg PO Q4H PRN PRN Reason: Heartburn Doxazosin Mesylate (Doxazosin Mesylate 2 Mg Tablet) 8 mg PO BEDTIME [facility]; Protocol Last Admin: 10/30/23 21:51 Dose: 8 mg Documented By: MARJ Doxycycline Monohydrate (Doxycycline Monohydrate 100 Mg Capsule) 100 mg PO BID [facility] Last Admin: 10/30/23 21:51 Dose: 100 mg Documented By: MARJ Duloxetine HCl (Duloxetine Hcl 60 Mg Capsule.Dr) 60 mg PO DAILY [facility] Last Admin: 10/30/23 08:36 Dose: 60 mg Documented By: AKOSUA Finasteride (Finasteride 5 Mg Tablet) 5 mg PO DAILY [facility] Last Admin: 10/30/23 08:35 Dose: 5 mg Documented By: AKOSUA Furosemide (Furosemide 40 Mg/4 Ml Vial) 40 mg IVPUSH BID@0900,1800 [facility]; Protocol Last Admin: 10/30/23 17:22 Dose: 40 mg Documented By: AKOSUA Lactic Acid (Ammonium Lactate 12 % Lotion 226 Gm Bottle) 1 appl TOPICAL BID [facility]; Protocol Last Admin: 10/30/23 21:29 Dose: 1 appl Documented By: MARJ Lactulose (Lactulose 20 Gm/30 Ml Solution) 20 gm PO BID [facility] Last Admin: 10/30/23 21:51 Dose: 20 gm Documented By: MARJ Magnesium Hydroxide (Milk Of Magnesia 30 Ml Oral.Susp) 30 ml PO DAILY PRN PRN Reason: Constipation Last Admin: 10/28/23 08:42 Dose: 30 ml Documented By: LISA Melatonin (Melatonin 3 Mg Tablet) 6 mg PO BEDTIME PRN PRN Reason: Insomnia Last Admin: 10/27/23 21:43 Dose: 6 mg Documented By: MEGHNA Methimazole (Methimazole 5 Mg Tablet) 5 mg PO DAILY [facility] Last Admin: 10/30/23 08:35 Dose: 5 mg Documented By: AKOSUA Non-Formulary Medication (Umeclidinium-Vilanterol [Anoro Ellipta]) 1 inhalation PO DAILY [facility] Ondansetron HCl (Ondansetron Hcl 4 Mg/2 Ml Vial) 4 mg IVPUSH Q8H PRN PRN Reason: Nausea and Vomiting Last Admin: 10/31/23 05:32 Dose: 4 mg Documented By: MARJ Oxybutynin Chloride (Oxybutynin Chloride Er 5 Mg Tab.Er.24) 10 mg PO DAILY [facility] Last Admin: 10/30/23 08:35 Dose: 10 mg Documented By: AKOSUA Oxycodone HCl (Oxycodone Hcl Immed Release 5 Mg Tablet) 5 mg PO Q4H PRN PRN Reason: Pain, Severe (Pain Scale 7-10) Last Admin: 10/27/23 12:16 Dose: 5 mg Documented By: MIGUEL Oxycodone HCl (Oxycodone Hcl Immed Release 5 Mg Tablet) 5 mg PO BID PRN PRN Reason: Pain, Severe (Pain Scale 7-10) Last Admin: 10/26/23 21:37 Dose: 5 mg Documented By: AMY Potassium Chloride (Potassium Chloride Er 20 Meq Tab.Er.Prt) 40 meq PO TID [facility] Last Admin: 10/30/23 21:51 Dose: 40 meq Documented By: MARJ Pregabalin (Pregabalin 150 Mg Capsule) 150 mg PO TID [facility] Last Admin: 10/30/23 21:51 Dose: 150 mg Documented By: MARJ Psyllium Hydrophilic Mucilloid (Psyllium Seed 3.7 Gm Packet) 3.7 gm PO DAILY [facility] Last Admin: 10/30/23 08:36 Dose: 3.7 gm Documented By: AKOSUA Ropinirole HCl (Ropinirole Hcl 2 Mg Tablet) 2 mg PO TID [facility] Last Admin: 10/30/23 21:51 Dose: 2 mg Documented By: MARJ Sodium Biphosphate/Sodium Phosphate (Sodium Phosphate,[place]-Dibasic 133 Ml Enema) 133 ml [place] DAILY PRN PRN Reason: Constipation Last Admin: 10/29/23 22:16 Dose: 133 ml Documented By: MARJ Sodium Chloride (0.9 % Sodium Chloride Flush 3 Ml Syringe) 3 ml IVFLUSH [facility] Last Admin: 10/31/23 05:29 Dose: 3 ml Documented By: MARJ Spironolactone (Spironolactone 25 Mg Tablet) 25 mg PO BID [facility]; Protocol Last Admin: 10/30/23 21:51 Dose: 25 mg Documented By: MARJ Tramadol HCl (Tramadol Hcl 50 Mg Tablet) 50 mg PO Q4H PRN PRN Reason: Pain, Moderate(Pain Scale 4-6) Labs 10/26/23 10:20 10/31/23 05:53 Labs: Laboratory Results - last 24 hr 10/30/23 10/30/23 10/30/23 06:18 12:48 19:59 Hold Purple Top SEE NOTE Anion Gap 16 14 13 Estim Creat Clear Calc 111.8 Estimated GFR 59 Random Glucose 138 H Calcium 8.9 Magnesium 2.0 Assessment and Plan (1) Anasarca: Status: Acute (2) Pulmonary edema: Status: Acute Plan 68-year-old male with a PMH significant for paroxysmal AFib on Eliquis and amiodarone, HFrEF, lymphedema with chronic venous stasis, HTN, COPD on 3L home O2, JEFFRY on CPAP, seronegative RA, HTN, overactive bladder, and obesity class 3 who presents to the ED for evaluation of abdominal and testicular swelling x3-4 weeks, worsening in the past few days. Admitted for anasarca with abd and significant scrotal swelling that has failed outpatient diuretic therapy. Scrotal swelling, Anasarca and pulmonary edema Improving, so for negative 16 liters Lasix drip changed to IV push 40 bid Low-salt diet, fluid restriction Follow lytes, I/O, BMP, replace K as needed cardiology following Aggresive replacement of potassium echocardiogram 10/29, hyperdynamic heart with EF > 70 Scrotal cellulitis--nearly resolved, continue Doxy for 7 days, started 10/25 Acute Hypokalemia, d/t Lasix, -Oral and IV replacement as needed and follow lytes closely -aldactone to help retain K Constipation--had a BM this morning after enema, continue other bowel regimen HTN-controlled. Paroxysmal AFIB--rythm controlled with amio, eliquis for stroke prevention, correct K COPD Not in acute exacerbation Continue home 3L O2 Continue home inhalers Chronic venous stasis Follows with wound care clinic, last seen 2 days prior on 10/23 Rickie wraps daily Ammonium lactate h/o hyperthyroidism -methimazole Peripheral neuropathy Continue pregabalin overactive bladder -oxybutynin bph--cardular, proscar HLD--Lipitor mood disorder, dulexetine Mood disorder Continue home mood stabalizers Full Code DVT Prophylaxis: On Eliquis need for inpt: IV diuretics for pulmonary edema, frequent electrolytes check and replacement Quality Stroke Does the patient have a stroke diagnosis?: No VTE Prior VTE?: No VTE Risk Level:: Medical - moderate - high VTE Device Contraindication: Treatment Not Indicated VTE Drug Contraindication: N/A - Med Ordered
[2023-10-31 06:52] LABS: Anion Gap 14 (12-20); Blood Urea Nitrogen 22 mg/dL (9-16); Calcium 9.1 mg/dL (8.4-10.2); Carbon Dioxide 28 mmol/L (22-29); Chloride 96 mmol/L (96-108); Creatinine Clr Calc Pharmacy 113.6; Estimated Glomerular Filt Rate 60; Glucose Random 119 mg/dL (60-115); Magnesium 2.3 mg/dL (1.6-2.6); Potassium 3.1 mmol/L (3.3-5.1); Sodium 135 mmol/L (135-145)
[2023-10-31] MEDS: Furosemide 40 MG/4 ML VIAL IVPUSH ×2 (08:09→17:27)
[2023-10-31] MEDS: Potassium Chloride ER 20 MEQ TAB.ER.PRT 40 MEQ PO ×2 (08:10→19:53)
[2023-10-31] MEDS: Pregabalin 150 MG CAPSULE PO ×3 (08:10→19:54)
[2023-10-31] MEDS: DULoxetine HCl 60 MG CAPSULE.DR PO (08:11)
[2023-10-31] MEDS: oxyBUTYnin chloride ER 5 MG TAB.ER.24 10 MG PO (08:11)
[2023-10-31] MEDS: Amiodarone HCL 200 MG TABLET PO (08:11)
[2023-10-31] MEDS: Spironolactone 25 MG TABLET PO (08:11)
[2023-10-31] MEDS: rOPINIRole HCL 2 MG TABLET PO ×3 (08:11→19:54)
[2023-10-31] MEDS: methIMAzole 5 MG TABLET PO (08:11)
[2023-10-31] MEDS: Apixaban 5 MG TABLET PO ×2 (08:11→19:54)
[2023-10-31] MEDS: Finasteride 5 MG TABLET PO (08:11)
[2023-10-31] MEDS: Doxycycline Monohydrate 100 MG CAPSULE PO ×2 (08:11→19:54)
[2023-10-31] MEDS: Ammonium Lactate 12 % Lotion 226 GM BOTTLE 1 APPL TOPICAL ×2 (08:15→19:53)
--- NOTE | 2023-10-31 11:15 | MHC.CM.PN ---
EMR reviewed and per MD rounds, pt is not medically cleared for discharge today due to management of pulmonary edema and electrolyte monitoring.
--- NOTE | 2023-10-31 11:58 | PM.PNCARD ---
Subjective Subjective Date of Service: 10/31/23 Interval history: Seen examined at bedside. On bolus dose of Lasix. Overall improving. Physical Exam Vital Signs: Last Vital Signs Temp 98.9 F 10/31/23 11:31 Pulse 63 10/31/23 11:31 Resp 18 10/31/23 11:31 BP 148/75 H 10/31/23 07:30 Pulse Ox 95 10/31/23 11:31 O2 Del Method Nasal Cannula 10/31/23 11:31 O2 Flow Rate 3 10/31/23 11:31 Oxygen Flow Rate 3 10/26/23 09:59 BMI result Body Mass Index 54.8 GENERAL APPEARANCE: in no acute distress, on supplemental oxygen. Morbidly obese. NECK: no carotid bruit, mild jugular venous distention. SKIN: no suspicious lesions, warm and dry. HEART: no murmurs, regular rate and rhythm. LUNGS: Bilateral end expiratory wheezes. ABDOMEN: soft, nontender. EXTREMITIES: 2+ edema. scrotal edema. PERIPHERAL PULSES: equal. NEUROLOGIC: No gross deficits, AAO X 3 Objective Labs and Meds 10/26/23 10:20 10/31/23 05:53 Lab results: Laboratory Results - last 24 hr 10/30/23 10/30/23 10/31/23 12:48 19:59 05:53 Hold Purple Top SEE NOTE Sodium 136 137 135 Potassium 3.2 L D 3.2 L 3.1 L Chloride 95 L 94 L 96 Carbon Dioxide 30 H 33 H 28 Anion Gap 14 13 14 BUN 22 H Creatinine 1.21 Estim Creat Clear Calc 113.6 Estimated GFR 60 Random Glucose 119 H Calcium 9.1 Magnesium 2.3 Progress Note: A&P Assessment and plan (1) Congestive heart failure: Status: Acute Plan Pleasant 68 year gentleman presenting with acute on chronic congestive heart failure. Right more than left-sided failure. He was aggressively diuresed with Lasix drip with improvement in volume status but unfortunately has significant hypokalemia at this point. Lasix drip was held and after improvement in potassium he has been started on bolus doses of Lasix 40 mg IV b.i.d.. Increased spironolactone to 50 mg p.o. b.i.d. because potassium has been low. As potassium improves I think he has stopped the oral supplements. Adding Jardiance 10 mg daily. Echocardiography was limited due to body habitus but RV appears to be dilated. Clinically he is acting like more right-sided failure and we will continue diurese. We will follow along with you. Thank you for allowing me to participate in the care of your patient. Please feel free to contact me if you have any questions. Time Spent With Patient Time: Total time managing care of this patient today ____ minutes. Progress Note: Quality Stroke Does the patient have a stroke diagnosis?: No Procedures Date of Service Date of Service: 10/31/23
[2023-10-31] MEDS: Empagliflozin 10 MG TABLET PO (12:28)
[2023-10-31] MEDS: Doxazosin Mesylate 2 MG TABLET 8 MG PO (19:53)
[2023-10-31] MEDS: Spironolactone 25 MG TABLET 50 MG PO (19:53)
[2023-10-31] MEDS: Atorvastatin Calcium 80 MG TABLET PO (19:53)
[2023-11-01] VITALS (8 sets, daily range): BP systolic 103–155; BP diastolic 52–72; PULSE 74–86; RESP 16–22; TEMP 36–36.4; O2SAT 94–96
[2023-11-01] MEDS: 0.9 % Sodium Chloride Flush 3 ML SYRINGE IVFLUSH ×4 (01:51→21:52)
[2023-11-01] MEDS: Ammonium Lactate 12 % Lotion 226 GM BOTTLE 1 APPL TOPICAL ×2 (08:40→21:50)
[2023-11-01] MEDS: Psyllium seed 3.7 GM PACKET PO (08:41)
[2023-11-01] MEDS: Amiodarone HCL 200 MG TABLET PO (08:42)
[2023-11-01] MEDS: Spironolactone 25 MG TABLET 50 MG PO ×2 (08:42→21:47)
[2023-11-01] MEDS: Doxycycline Monohydrate 100 MG CAPSULE PO ×2 (08:42→21:47)
[2023-11-01] MEDS: rOPINIRole HCL 2 MG TABLET PO ×3 (08:42→21:47)
[2023-11-01] MEDS: Apixaban 5 MG TABLET PO ×2 (08:42→21:42)
[2023-11-01] MEDS: Potassium Chloride ER 20 MEQ TAB.ER.PRT 40 MEQ PO ×3 (08:42→21:47)
[2023-11-01] MEDS: Empagliflozin 10 MG TABLET PO (08:42)
[2023-11-01] MEDS: DULoxetine HCl 60 MG CAPSULE.DR PO (08:42)
[2023-11-01] MEDS: Finasteride 5 MG TABLET PO (08:42)
[2023-11-01] MEDS: methIMAzole 5 MG TABLET PO (08:42)
[2023-11-01] MEDS: Pregabalin 150 MG CAPSULE PO ×3 (08:43→21:47)
[2023-11-01] MEDS: oxyBUTYnin chloride ER 5 MG TAB.ER.24 10 MG PO (08:43)
[2023-11-01 08:49] LABS: Anion Gap 13 (12-20); Blood Urea Nitrogen 21 mg/dL (9-16); Calcium 9.2 mg/dL (8.4-10.2); Carbon Dioxide 29 mmol/L (22-29); Chloride 96 mmol/L (96-108); Creatinine Clr Calc Pharmacy 117.5; Estimated Glomerular Filt Rate > 60; Glucose Random 116 mg/dL (60-115); Magnesium 2.3 mg/dL (1.6-2.6); Potassium 3.2 mmol/L (3.3-5.1); Sodium 135 mmol/L (135-145)
[2023-11-01] MEDS: Losartan Potassium 25 MG TABLET PO (09:58)
[2023-11-01] MEDS: Furosemide 40 MG/4 ML VIAL IVPUSH (09:58)
--- NOTE | 2023-11-01 11:07 | PM.PNCARD ---
Subjective Subjective Date of Service: 11/01/23 Interval history: Seen examined at bedside. He is saying he is getting out of breath easily when he walks. Physical Exam Vital Signs: Last Vital Signs Temp 97.6 F 11/01/23 07:33 Pulse 83 11/01/23 07:33 Resp 16 11/01/23 07:33 BP 155/72 H 11/01/23 07:33 Pulse Ox 96 11/01/23 07:33 O2 Del Method Nasal Cannula 11/01/23 07:33 O2 Flow Rate 3 11/01/23 07:33 Oxygen Flow Rate 3 10/26/23 09:59 BMI result Body Mass Index 54.8 GENERAL APPEARANCE: in no acute distress, on supplemental oxygen. Morbidly obese. NECK: no carotid bruit, mild jugular venous distention. SKIN: no suspicious lesions, warm and dry. HEART: no murmurs, regular rate and rhythm. LUNGS: Bilateral end expiratory wheezes. ABDOMEN: soft, nontender. EXTREMITIES: Lymphedema of the lower extremities, no significant pitting edema. scrotal edema-improving. PERIPHERAL PULSES: equal. NEUROLOGIC: No gross deficits, AAO X 3 Objective Labs and Meds 10/26/23 10:20 11/01/23 08:14 Lab results: Laboratory Results - last 24 hr 11/01/23 08:14 Hold Purple Top SEE NOTE Sodium 135 Potassium 3.2 L Chloride 96 Carbon Dioxide 29 Anion Gap 13 BUN 21 H Creatinine 1.17 Estim Creat Clear Calc 117.5 Estimated GFR > 60 Random Glucose 116 H Calcium 9.2 Magnesium 2.3 Progress Note: A&P Assessment and plan (1) Congestive heart failure: Status: Acute Plan Pleasant 68 year gentleman presenting with acute on chronic congestive heart failure. Right more than left-sided failure. He was aggressively diuresed with Lasix drip with improvement in volume status but unfortunately has significant hypokalemia at this point. Lasix drip was held and after improvement in potassium he has been started on bolus doses of Lasix 40 mg IV b.i.d. I am increasing to 80 mg IV b.i.d.. Increased spironolactone to 50 mg p.o. b.i.d. because potassium has been low. As potassium improves I think he has stopped the oral supplements. Added Jardiance 10 mg daily and losartan 25 mg daily Echocardiography was limited due to body habitus but RV appears to be dilated. Clinically he is acting like more right-sided failure and we will continue diurese. Given obesity and heart failure he will benefit from semaglutide. We will look into this as outpatient. We will follow along with you. Thank you for allowing me to participate in the care of your patient. Please feel free to contact me if you have any questions. Time Spent With Patient Time: Total time managing care of this patient today ____ minutes. Progress Note: Quality Stroke Does the patient have a stroke diagnosis?: No Procedures Date of Service Date of Service: 11/01/23
--- NOTE | 2023-11-01 12:42 | P.PNIM_ITS ---
Subjective Subjective Date of Service: 11/01/23 Interval History: Seen and examined. She continues to feel better and noting decrease in bodily swelling, potassium level is better, IV Lasix drip changed to IV Lasix push finally has had a bowel movment with enema Physical Exam 2 Vital Signs: Vital Signs: Last Vital Signs Temp 97.6 F 11/01/23 11:22 Pulse 84 11/01/23 11:22 Resp 16 11/01/23 11:22 BP 139/65 11/01/23 11:22 Pulse Ox 94 11/01/23 11:22 O2 Del Method Nasal Cannula 11/01/23 11:22 O2 Flow Rate 3 11/01/23 11:22 Oxygen Flow Rate 3 10/26/23 09:59 BMI result Body Mass Index 54.8 Const: Other: Constitutional : Awake, interactive, not in distress Neck : Normal inspection, Supple Cardiovascular : RRR, no JVP, chronic non-pitting bilateral lower extremity edema Respiratory : good bilateral air entry, no crackles, wheezes or rhonchi Gastrointestinal: soft, lax, Normal bowel sounds, Non tender Skin : Warm, Dry, dry skin lower extremities , small dry wounds with no drainage Urology: Bautista in place, scrotum still significantly swollen, no tenderness Neurological : Alert & oriented x3, No focal deficit Objective Data Active Medications Acetaminophen (Acetaminophen 325 Mg Tablet) 650 mg PO Q6H PRN PRN Reason: Pain, Mild (Pain Scale 1-3), fever or headache Albuterol Sulfate (Albuterol Sulfate 90 Mcg 8 Gm Inhaler) 2 puff INHALE Q6H PRN PRN Reason: for wheezing Amiodarone HCl (Amiodarone Hcl 200 Mg Tablet) 200 mg PO DAILY [facility] Last Admin: 11/01/23 08:42 Dose: 200 mg Documented By: SHEELA Apixaban (Apixaban 5 Mg Tablet) 5 mg PO BID [facility] Last Admin: 11/01/23 08:42 Dose: 5 mg Documented By: SHEELA Atorvastatin Calcium (Atorvastatin Calcium 80 Mg Tablet) 80 mg PO BEDTIME [facility] Last Admin: 10/31/23 19:53 Dose: 80 mg Documented By: BELEN Benzonatate (Benzonatate 100 Mg Capsule) 100 mg PO TID PRN PRN Reason: Cough Calcium Carbonate (Calcium Carbonate 750 Mg Tab.Chew) 750 mg PO Q4H PRN PRN Reason: Heartburn Doxazosin Mesylate (Doxazosin Mesylate 2 Mg Tablet) 8 mg PO BEDTIME [facility]; Protocol Last Admin: 10/31/23 19:53 Dose: 8 mg Documented By: BELEN Doxycycline Monohydrate (Doxycycline Monohydrate 100 Mg Capsule) 100 mg PO BID [facility] Last Admin: 11/01/23 08:42 Dose: 100 mg Documented By: SHEELA Duloxetine HCl (Duloxetine Hcl 60 Mg Capsule.) 60 mg PO DAILY [facility] Last Admin: 11/01/23 08:42 Dose: 60 mg Documented By: SHEELA Empagliflozin (Empagliflozin 10 Mg Tablet) 10 mg PO DAILY [facility] Last Admin: 11/01/23 08:42 Dose: 10 mg Documented By: SHEELA Finasteride (Finasteride 5 Mg Tablet) 5 mg PO DAILY [facility] Last Admin: 11/01/23 08:42 Dose: 5 mg Documented By: SHEELA Furosemide (Furosemide 40 Mg/4 Ml Vial) 80 mg IVPUSH BID@0900,1800 [facility]; Protocol Lactic Acid (Ammonium Lactate 12 % Lotion 226 Gm Bottle) 1 appl TOPICAL BID [facility]; Protocol Last Admin: 11/01/23 08:40 Dose: 1 appl Documented By: SHEELA Lactulose (Lactulose 20 Gm/30 Ml Solution) 20 gm PO BID [facility] Last Admin: 11/01/23 08:44 Dose: Not Given Documented By: SHEELA Non-Admin Reason: Patient Refused Losartan Potassium (Losartan Potassium 25 Mg Tablet) 25 mg PO DAILY [facility]; Protocol Last Admin: 11/01/23 09:58 Dose: 25 mg Documented By: SHEELA Magnesium Hydroxide (Milk Of Magnesia 30 Ml Oral.Susp) 30 ml PO DAILY PRN PRN Reason: Constipation Last Admin: 10/28/23 08:42 Dose: 30 ml Documented By: LISA Melatonin (Melatonin 3 Mg Tablet) 6 mg PO BEDTIME PRN PRN Reason: Insomnia Last Admin: 10/27/23 21:43 Dose: 6 mg Documented By: MEGHNA Methimazole (Methimazole 5 Mg Tablet) 5 mg PO DAILY [facility] Last Admin: 11/01/23 08:42 Dose: 5 mg Documented By: SHEELA Ondansetron HCl (Ondansetron Hcl 4 Mg/2 Ml Vial) 4 mg IVPUSH Q8H PRN PRN Reason: Nausea and Vomiting Last Admin: 10/31/23 05:32 Dose: 4 mg Documented By: MARJ Oxybutynin Chloride (Oxybutynin Chloride Er 5 Mg Tab.Er.24) 10 mg PO DAILY [facility] Last Admin: 11/01/23 08:43 Dose: 10 mg Documented By: SHEELA Potassium Chloride (Potassium Chloride Er 20 Meq Tab.Er.Prt) 40 meq PO BID [facility] Last Admin: 11/01/23 08:42 Dose: 40 meq Documented By: SHEELA Pregabalin (Pregabalin 150 Mg Capsule) 150 mg PO TID [facility] Last Admin: 11/01/23 08:43 Dose: 150 mg Documented By: SHEELA Psyllium Hydrophilic Mucilloid (Psyllium Seed 3.7 Gm Packet) 3.7 gm PO DAILY [facility] Last Admin: 11/01/23 08:41 Dose: 3.7 gm Documented By: SHEELA Ropinirole HCl (Ropinirole Hcl 2 Mg Tablet) 2 mg PO TID [facility] Last Admin: 11/01/23 08:42 Dose: 2 mg Documented By: SHEELA Sodium Biphosphate/Sodium Phosphate (Sodium Phosphate,[place]-Dibasic 133 Ml Enema) 133 ml [place] DAILY PRN PRN Reason: Constipation Last Admin: 10/29/23 22:16 Dose: 133 ml Documented By: MARJ Sodium Chloride (0.9 % Sodium Chloride Flush 3 Ml Syringe) 3 ml IVFLUSH QSHIFT [facility] Last Admin: 11/01/23 08:40 Dose: 3 ml Documented By: SHEELA Spironolactone (Spironolactone 25 Mg Tablet) 50 mg PO BID [facility]; Protocol Last Admin: 11/01/23 08:42 Dose: 50 mg Documented By: SHEELA Labs 10/26/23 10:20 11/02/23 07:58 Labs: Laboratory Results - last 24 hr 11/01/23 08:14 Hold Purple Top SEE NOTE Anion Gap 13 Estim Creat Clear Calc 117.5 Estimated GFR > 60 Random Glucose 116 H Calcium 9.2 Magnesium 2.3 Assessment and Plan (1) Pulmonary edema: Status: Acute (2) Anasarca: Status: Acute (3) Scrotal swelling: Status: Acute Plan 68-year-old male with a PMH significant for paroxysmal AFib on Eliquis and amiodarone, HFrEF, lymphedema with chronic venous stasis, HTN, COPD on 3L home O2, JEFFRY on CPAP, seronegative RA, HTN, overactive bladder, and obesity class 3 who presents to the ED for evaluation of abdominal and testicular swelling x3-4 weeks, worsening in the past few days. Admitted for anasarca with abd and significant scrotal swelling that has failed outpatient diuretic therapy. Scrotal swelling, Anasarca and pulmonary edema Improving, so for negative 16 liters Lasix drip changed to IV push 80 bid Low-salt diet, fluid restriction Follow lytes, I/O, BMP, replace K as needed cardiology following Aggresive replacement of potassium echocardiogram 10/29, hyperdynamic heart with EF > 70 Scrotal cellulitis--nearly resolved, continue Doxy for 7 days, started 10/25 Acute Hypokalemia, d/t Lasix, -Oral and IV replacement as needed and follow lytes closely -aldactone to help retain K Constipation--had a BM this morning after enema, continue other bowel regimen HTN-controlled. Paroxysmal AFIB--rythm controlled with amio, eliquis for stroke prevention, correct K COPD Not in acute exacerbation Continue home 3L O2 Continue home inhalers Chronic venous stasis Follows with wound care clinic, last seen 2 days prior on 10/23 Rickie wraps daily Ammonium lactate h/o hyperthyroidism -methimazole Peripheral neuropathy Continue pregabalin overactive bladder -oxybutynin bph--cardular, proscar HLD--Lipitor mood disorder, dulexetine Mood disorder Continue home mood stabalizers Full Code DVT Prophylaxis: On Eliquis need for inpt: IV diuretics for pulmonary edema, frequent electrolytes check and replacement Quality Stroke Does the patient have a stroke diagnosis?: No VTE Prior VTE?: No VTE Risk Level:: Medical - moderate - high VTE Device Contraindication: Treatment Not Indicated VTE Drug Contraindication: N/A - Med Ordered
[2023-11-01] MEDS: Acetaminophen 325 MG TABLET 650 MG PO (14:04)
[2023-11-01] MEDS: Furosemide 40 MG/4 ML VIAL 80 MG IVPUSH ×2 (15:29→18:19)
[2023-11-01] MEDS: Atorvastatin Calcium 80 MG TABLET PO (21:42)
[2023-11-01] MEDS: Doxazosin Mesylate 2 MG TABLET 8 MG PO (21:42)
[2023-11-02] VITALS (11 sets, daily range): BP systolic 97–146; BP diastolic 49–66; PULSE 67–98; RESP 16–20; TEMP 35.8–36.7; O2SAT 93–96
[2023-11-02] MEDS: Empagliflozin 10 MG TABLET PO (08:56)
[2023-11-02] MEDS: DULoxetine HCl 60 MG CAPSULE.DR PO (08:56)
[2023-11-02] MEDS: rOPINIRole HCL 2 MG TABLET PO ×3 (08:56→21:51)
[2023-11-02] MEDS: methIMAzole 5 MG TABLET PO (08:56)
[2023-11-02] MEDS: Pregabalin 150 MG CAPSULE PO ×3 (08:56→21:50)
[2023-11-02] MEDS: Spironolactone 25 MG TABLET 50 MG PO ×2 (08:56→21:51)
[2023-11-02] MEDS: Amiodarone HCL 200 MG TABLET PO (08:56)
[2023-11-02] MEDS: oxyBUTYnin chloride ER 5 MG TAB.ER.24 10 MG PO (08:57)
[2023-11-02] MEDS: Losartan Potassium 25 MG TABLET PO (08:57)
[2023-11-02] MEDS: Potassium Chloride ER 20 MEQ TAB.ER.PRT 40 MEQ PO ×3 (08:57→21:50)
[2023-11-02] MEDS: Apixaban 5 MG TABLET PO ×2 (08:57→21:50)
[2023-11-02] MEDS: Doxycycline Monohydrate 100 MG CAPSULE PO ×2 (08:57→21:50)
[2023-11-02] MEDS: Finasteride 5 MG TABLET PO (08:58)
[2023-11-02] MEDS: Furosemide 40 MG/4 ML VIAL 80 MG IVPUSH (08:58)
[2023-11-02] MEDS: 0.9 % Sodium Chloride Flush 3 ML SYRINGE IVFLUSH ×3 (08:58→23:21)
[2023-11-02] MEDS: Psyllium seed 3.7 GM PACKET PO (08:58)
[2023-11-02 09:07] LABS: Anion Gap 14 (12-20); Blood Urea Nitrogen 27 mg/dL (9-16); Calcium 9.3 mg/dL (8.4-10.2); Carbon Dioxide 28 mmol/L (22-29); Chloride 98 mmol/L (96-108); Creatinine Clr Calc Pharmacy 93.5; Estimated Glomerular Filt Rate 48; Glucose Random 113 mg/dL (60-115); Magnesium 2.3 mg/dL (1.6-2.6); Potassium 3.6 mmol/L (3.3-5.1); Sodium 136 mmol/L (135-145)
[2023-11-02] MEDS: Ammonium Lactate 12 % Lotion 226 GM BOTTLE 1 APPL TOPICAL ×2 (09:12→21:53)
[2023-11-02] MEDS: Milk of Magnesia 30 ML ORAL.SUSP PO (09:21)
--- NOTE | 2023-11-02 11:16 | P.PNIM_ITS ---
Subjective Subjective Date of Service: 11/02/23 Interval History: Seen and examined. Overall better but still has some level of sob Blood pressure was on low side this morning and creatinine is trending up Physical Exam 2 Vital Signs: Vital Signs: Last Vital Signs Temp 98 F 11/02/23 07:04 Pulse 84 11/02/23 07:04 Resp 17 11/02/23 07:04 BP 146/55 H 11/02/23 08:58 Pulse Ox 94 11/02/23 07:04 O2 Del Method Nasal Cannula 11/02/23 07:04 O2 Flow Rate 3 11/02/23 07:04 Oxygen Flow Rate 3 10/26/23 09:59 BMI result Body Mass Index 54.8 Const: Other: Constitutional : Awake, interactive, not in distress Neck : Normal inspection, Supple Cardiovascular : RRR, no JVP, chronic non-pitting bilateral lower extremity edema Respiratory : good bilateral air entry, no crackles, wheezes or rhonchi Gastrointestinal: soft, lax, Normal bowel sounds, Non tender Skin : Warm, Dry, dry skin lower extremities , small dry wounds with no drainage Urology: Bautista in place, scrotum still significantly swollen, no tenderness Neurological : Alert & oriented x3, No focal deficit Objective Data Active Medications Acetaminophen (Acetaminophen 325 Mg Tablet) 650 mg PO Q6H PRN PRN Reason: Pain, Mild (Pain Scale 1-3), fever or headache Last Admin: 11/01/23 14:04 Dose: 650 mg Documented By: SHEELA Albuterol Sulfate (Albuterol Sulfate 90 Mcg 8 Gm Inhaler) 2 puff INHALE Q6H PRN PRN Reason: for wheezing Amiodarone HCl (Amiodarone Hcl 200 Mg Tablet) 200 mg PO DAILY [facility] Last Admin: 11/02/23 08:56 Dose: 200 mg Documented By: SHEELA Apixaban (Apixaban 5 Mg Tablet) 5 mg PO BID [facility] Last Admin: 11/02/23 08:57 Dose: 5 mg Documented By: SHEELA Atorvastatin Calcium (Atorvastatin Calcium 80 Mg Tablet) 80 mg PO BEDTIME [facility] Last Admin: 11/01/23 21:42 Dose: 80 mg Documented By: JUNIOR Benzonatate (Benzonatate 100 Mg Capsule) 100 mg PO TID PRN PRN Reason: Cough Calcium Carbonate (Calcium Carbonate 750 Mg Tab.Chew) 750 mg PO Q4H PRN PRN Reason: Heartburn Doxazosin Mesylate (Doxazosin Mesylate 2 Mg Tablet) 8 mg PO BEDTIME [facility]; Protocol Last Admin: 11/01/23 21:42 Dose: 8 mg Documented By: JUNIOR Doxycycline Monohydrate (Doxycycline Monohydrate 100 Mg Capsule) 100 mg PO BID [facility] Last Admin: 11/02/23 08:57 Dose: 100 mg Documented By: SHEELA Duloxetine HCl (Duloxetine Hcl 60 Mg Capsule.Dr) 60 mg PO DAILY [facility] Last Admin: 11/02/23 08:56 Dose: 60 mg Documented By: SHEELA Empagliflozin (Empagliflozin 10 Mg Tablet) 10 mg PO DAILY [facility] Last Admin: 11/02/23 08:56 Dose: 10 mg Documented By: SHEELA Finasteride (Finasteride 5 Mg Tablet) 5 mg PO DAILY [facility] Last Admin: 11/02/23 08:58 Dose: 5 mg Documented By: SHEELA Furosemide (Furosemide 40 Mg/4 Ml Vial) 80 mg IVPUSH BID@0900,1800 [facility]; Protocol Last Admin: 11/02/23 08:58 Dose: 80 mg Documented By: SHEELA Lactic Acid (Ammonium Lactate 12 % Lotion 226 Gm Bottle) 1 appl TOPICAL BID [facility]; Protocol Last Admin: 11/02/23 09:12 Dose: 1 appl Documented By: SHEELA Lactulose (Lactulose 20 Gm/30 Ml Solution) 20 gm PO BID [facility] Last Admin: 11/02/23 09:14 Dose: Not Given Documented By: SHEELA Non-Admin Reason: Patient Refused Comments: education provider. MD husain Losartan Potassium (Losartan Potassium 25 Mg Tablet) 25 mg PO DAILY [facility]; Protocol Last Admin: 11/02/23 08:57 Dose: 25 mg Documented By: SHEELA Magnesium Hydroxide (Milk Of Magnesia 30 Ml Oral.Susp) 30 ml PO DAILY PRN PRN Reason: Constipation Last Admin: 11/02/23 09:21 Dose: 30 ml Documented By: SHEELA Melatonin (Melatonin 3 Mg Tablet) 6 mg PO BEDTIME PRN PRN Reason: Insomnia Last Admin: 10/27/23 21:43 Dose: 6 mg Documented By: MEGHNA Methimazole (Methimazole 5 Mg Tablet) 5 mg PO DAILY [facility] Last Admin: 11/02/23 08:56 Dose: 5 mg Documented By: SHEELA Ondansetron HCl (Ondansetron Hcl 4 Mg/2 Ml Vial) 4 mg IVPUSH Q8H PRN PRN Reason: Nausea and Vomiting Last Admin: 10/31/23 05:32 Dose: 4 mg Documented By: MARJ Oxybutynin Chloride (Oxybutynin Chloride Er 5 Mg Tab.Er.24) 10 mg PO DAILY [facility] Last Admin: 11/02/23 08:57 Dose: 10 mg Documented By: SHEELA Potassium Chloride (Potassium Chloride Er 20 Meq Tab.Er.Prt) 40 meq PO TID [facility] Last Admin: 11/02/23 08:57 Dose: 40 meq Documented By: SHEELA Pregabalin (Pregabalin 150 Mg Capsule) 150 mg PO TID [facility] Last Admin: 11/02/23 08:56 Dose: 150 mg Documented By: SHEELA Psyllium Hydrophilic Mucilloid (Psyllium Seed 3.7 Gm Packet) 3.7 gm PO DAILY [facility] Last Admin: 11/02/23 08:58 Dose: 3.7 gm Documented By: SHEELA Ropinirole HCl (Ropinirole Hcl 2 Mg Tablet) 2 mg PO TID [facility] Last Admin: 11/02/23 08:56 Dose: 2 mg Documented By: SHEELA Sodium Biphosphate/Sodium Phosphate (Sodium Phosphate,[place]-Dibasic 133 Ml Enema) 133 ml [place] DAILY PRN PRN Reason: Constipation Last Admin: 10/29/23 22:16 Dose: 133 ml Documented By: MARJ Sodium Chloride (0.9 % Sodium Chloride Flush 3 Ml Syringe) [facility] Last Admin: 11/02/23 08:58 Dose: 3 ml Documented By: SHEELA Spironolactone (Spironolactone 25 Mg Tablet) 50 mg PO BID [facility]; Protocol Last Admin: 11/02/23 08:56 Dose: 50 mg Documented By: SHEELA Labs 10/26/23 10:20 11/02/23 07:58 Labs: Laboratory Results - last 24 hr 11/02/23 07:58 Anion Gap 14 Estim Creat Clear Calc 93.5 Estimated GFR 48 Random Glucose 113 Calcium 9.3 Magnesium 2.3 Assessment and Plan (1) Pulmonary edema: Status: Acute (2) Anasarca: Status: Acute (3) Scrotal swelling: Status: Acute Plan 68-year-old male with a PMH significant for paroxysmal AFib on Eliquis and amiodarone, HFrEF, lymphedema with chronic venous stasis, HTN, COPD on 3L home O2, JEFFRY on CPAP, seronegative RA, HTN, overactive bladder, and obesity class 3 who presents to the ED for evaluation of abdominal and testicular swelling x3-4 weeks, worsening in the past few days. Admitted for anasarca with abd and significant scrotal swelling that has failed outpatient diuretic therapy. Scrotal swelling, Anasarca and pulmonary edema Improving, so for negative 16 liters holding lasix d/t increased creatinine Low-salt diet, fluid restriction Follow lytes, I/O, BMP, replace K as needed cardiology following Aggresive replacement of potassium echocardiogram 10/29, hyperdynamic heart with EF > 70 Scrotal cellulitis--nearly resolved, continue Doxy for 7 days, started 10/25 Acute Hypokalemia, d/t Lasix, K is normal, keep around 4 -Oral and IV replacement as needed and follow lytes closely -aldactone to help retain K Constipation--bowel regimen and enema PRN HTN-controlled. Paroxysmal AFIB--rythm controlled with amio, eliquis for stroke prevention COPD Not in acute exacerbation Continue home 3L O2 Continue home inhalers Chronic venous stasis Follows with wound care clinic, last seen 2 days prior on 10/23 Rickie wraps daily Ammonium lactate h/o hyperthyroidism -methimazole Peripheral neuropathy Continue pregabalin overactive bladder -oxybutynin bph--cardular, proscar HLD--Lipitor mood disorder, dulexetine Mood disorder Continue home mood stabalizers Full Code DVT Prophylaxis: On Eliquis need for inpt: IV diuretics for pulmonary edema, frequent electrolytes check and replacement Quality Stroke Does the patient have a stroke diagnosis?: No VTE Prior VTE?: No VTE Risk Level:: Medical - moderate - high VTE Device Contraindication: Treatment Not Indicated VTE Drug Contraindication: N/A - Med Ordered
--- NOTE | 2023-11-02 12:40 | PC.NURSE ---
Dr Mccord Tigertexted at 0944, directions were to hold losartan and lasix for the day. Updated DrAlberto Medication was given during morning pass. He states to continue to hold for remainder of day.
[2023-11-02] MEDS: Fluticasone/Umeclidinium/Vilanterol 200/62.5/25 BLST.W.DEV 1 PUFF INHALE (12:43)
--- NOTE | 2023-11-02 12:52 | PM.PNCARD ---
Subjective Subjective Date of Service: 11/02/23 Interval history: Seen examined at bedside. His creatinine has increased to 1.47 today. Diuretics have been held. Physical Exam Vital Signs: Last Vital Signs Temp 96.4 F L 11/02/23 11:42 Pulse 90 11/02/23 11:42 Resp 16 11/02/23 11:42 BP 102/66 11/02/23 11:42 Pulse Ox 96 11/02/23 11:42 O2 Del Method Nasal Cannula 11/02/23 11:42 O2 Flow Rate 3 11/02/23 11:42 Oxygen Flow Rate 3 10/26/23 09:59 BMI result Body Mass Index 54.8 GENERAL APPEARANCE: in no acute distress, on supplemental oxygen. Morbidly obese. NECK: no carotid bruit, mild jugular venous distention. SKIN: no suspicious lesions, warm and dry. HEART: no murmurs, regular rate and rhythm. LUNGS: Clear to auscultation bilaterally. ABDOMEN: soft, nontender. EXTREMITIES: Lymphedema of the lower extremities, no significant pitting edema. scrotal edema-improved. PERIPHERAL PULSES: equal. NEUROLOGIC: No gross deficits, AAO X 3 Objective Labs and Meds 10/26/23 10:20 11/02/23 07:58 Lab results: Laboratory Results - last 24 hr 11/02/23 07:58 Sodium 136 Potassium 3.6 Chloride 98 Carbon Dioxide 28 Anion Gap 14 BUN 27 H Creatinine 1.47 H Estim Creat Clear Calc 93.5 Estimated GFR 48 Random Glucose 113 Calcium 9.3 Magnesium 2.3 Progress Note: A&P Assessment and plan (1) Congestive heart failure: Status: Acute Plan Pleasant 68 year gentleman presenting with acute on chronic congestive heart failure. Right more than left-sided failure. He was aggressively diuresed with Lasix drip with improvement in volume status but unfortunately has significant hypokalemia. Lasix drip was held and after improvement in potassium he has been started on bolus doses of Lasix 40 mg IV b.i.d. which was increased to 80 mg b.i.d.. Increased spironolactone to 50 mg p.o. b.i.d. because potassium has been low. As potassium improves I think he has stopped the oral supplements. Added Jardiance 10 mg daily and losartan 25 mg daily Echocardiography was limited due to body habitus but RV appears to be dilated. Clinically he is acting like more right-sided failure and we will continue diurese. Given obesity and heart failure he will benefit from semaglutide. We will look into this as outpatient. His creatinine worsened to 1.47 today. Diuretics have been held currently. Also losartan was added in the last 48 hours so need to monitor creatinine closely. As creatinine improves I think we should plan discharge. I think he should go home on torsemide 40 mg daily. We will follow along with you. Thank you for allowing me to participate in the care of your patient. Please feel free to contact me if you have any questions. Time Spent With Patient Time: Total time managing care of this patient today ____ minutes. Progress Note: Quality Stroke Does the patient have a stroke diagnosis?: No Procedures Date of Service Date of Service: 11/02/23
[2023-11-02] MEDS: Doxazosin Mesylate 2 MG TABLET 8 MG PO (21:50)
[2023-11-02] MEDS: Lactulose 20 GM/30 ML SOLUTION PO (21:51)
[2023-11-02] MEDS: Atorvastatin Calcium 80 MG TABLET PO (21:51)
[2023-11-03] VITALS (8 sets, daily range): BP systolic 93–130; BP diastolic 55–59; PULSE 74–92; RESP 14–20; TEMP 36–36.3; O2SAT 93–97
[2023-11-03 07:36] LABS: Calcium 9.8 mg/dL (8.4-10.2); Glucose Random 111 mg/dL (60-115); Magnesium 2.3 mg/dL (1.6-2.6)
[2023-11-03 07:55] LABS: Anion Gap 17 (12-20); Blood Urea Nitrogen 40 mg/dL (9-16); Carbon Dioxide 26 mmol/L (22-29); Chloride 98 mmol/L (96-108); Creatinine Clr Calc Pharmacy 61.4; Estimated Glomerular Filt Rate 29; Potassium 4.6 mmol/L (3.3-5.1); Sodium 136 mmol/L (135-145)
[2023-11-03] MEDS: Fluticasone/Umeclidinium/Vilanterol 200/62.5/25 BLST.W.DEV 1 PUFF INHALE (08:17)
[2023-11-03] MEDS: Lactulose 20 GM/30 ML SOLUTION PO ×2 (09:11→20:18)
[2023-11-03] MEDS: Potassium Chloride ER 20 MEQ TAB.ER.PRT 40 MEQ PO (09:11)
[2023-11-03] MEDS: Finasteride 5 MG TABLET PO (09:11)
[2023-11-03] MEDS: Doxycycline Monohydrate 100 MG CAPSULE PO ×2 (09:11→20:19)
[2023-11-03] MEDS: 0.9 % Sodium Chloride Flush 3 ML SYRINGE IVFLUSH ×2 (09:11→15:06)
[2023-11-03] MEDS: Pregabalin 150 MG CAPSULE PO ×3 (09:12→20:20)
[2023-11-03] MEDS: DULoxetine HCl 60 MG CAPSULE.DR PO (09:12)
[2023-11-03] MEDS: Spironolactone 25 MG TABLET 50 MG PO (09:12)
[2023-11-03] MEDS: methIMAzole 5 MG TABLET PO (09:12)
[2023-11-03] MEDS: Empagliflozin 10 MG TABLET PO (09:12)
[2023-11-03] MEDS: Amiodarone HCL 200 MG TABLET PO (09:12)
[2023-11-03] MEDS: rOPINIRole HCL 2 MG TABLET PO ×3 (09:12→20:19)
[2023-11-03] MEDS: Apixaban 5 MG TABLET PO ×2 (09:12→20:18)
[2023-11-03] MEDS: oxyBUTYnin chloride ER 5 MG TAB.ER.24 10 MG PO (09:12)
[2023-11-03] MEDS: Psyllium seed 3.7 GM PACKET PO (09:13)
[2023-11-03] MEDS: Ammonium Lactate 12 % Lotion 226 GM BOTTLE 1 APPL TOPICAL ×2 (09:19→22:00)
--- NOTE | 2023-11-03 09:56 | P.PNIM_ITS ---
Subjective Subjective Date of Service: 11/03/23 Interval History: Has been treated for heart failure and fluid overload and has been on diuretics drip, transitioned to IV push but has developped Marian the last 2 days, diuretics on hold since yeserday, renal function is worse. But overall feels better Physical Exam 2 Vital Signs: Vital Signs: Last Vital Signs Temp 97.4 F 11/03/23 07:40 Pulse 78 11/03/23 08:19 Resp 18 11/03/23 08:19 BP 125/59 L 11/03/23 07:40 Pulse Ox 94 11/03/23 07:40 O2 Del Method Nasal Cannula 11/03/23 07:40 O2 Flow Rate 3 11/03/23 07:40 Oxygen Flow Rate 3 10/26/23 09:59 BMI result Body Mass Index 54.8 GENERAL APPEARANCE: in no acute distress, on supplemental oxygen. Morbidly obese. NECK: no carotid bruit, mild jugular venous distention. SKIN: no suspicious lesions, warm and dry. HEART: no murmurs, regular rate and rhythm. LUNGS: Clear to auscultation bilaterally. ABDOMEN: soft, nontender. EXTREMITIES: Lymphedema of the lower extremities, no significant pitting edema. scrotal edema-improved. PERIPHERAL PULSES: equal. NEUROLOGIC: No gross deficits, AAO X 3 Objective Data Active Medications Acetaminophen (Acetaminophen 325 Mg Tablet) 650 mg PO Q6H PRN PRN Reason: Pain, Mild (Pain Scale 1-3), fever or headache Last Admin: 11/01/23 14:04 Dose: 650 mg Documented By: SHEELA Albuterol Sulfate (Albuterol Sulfate 90 Mcg 8 Gm Inhaler) 2 puff INHALE Q6H PRN PRN Reason: for wheezing Amiodarone HCl (Amiodarone Hcl 200 Mg Tablet) 200 mg PO DAILY [facility] Last Admin: 11/03/23 09:12 Dose: 200 mg Documented By: TD Apixaban (Apixaban 5 Mg Tablet) 5 mg PO BID [facility] Last Admin: 11/03/23 09:12 Dose: 5 mg Documented By: TD Atorvastatin Calcium (Atorvastatin Calcium 80 Mg Tablet) 80 mg PO BEDTIME [facility] Last Admin: 11/02/23 21:51 Dose: 80 mg Documented By: MARYSOL Benzonatate (Benzonatate 100 Mg Capsule) 100 mg PO TID PRN PRN Reason: Cough Calcium Carbonate (Calcium Carbonate 750 Mg Tab.Chew) 750 mg PO Q4H PRN PRN Reason: Heartburn Doxazosin Mesylate (Doxazosin Mesylate 2 Mg Tablet) 8 mg PO BEDTIME [facility]; Protocol Last Admin: 11/02/23 21:50 Dose: 8 mg Documented By: MARYSOL Doxycycline Monohydrate (Doxycycline Monohydrate 100 Mg Capsule) 100 mg PO BID [facility] Last Admin: 11/03/23 09:11 Dose: 100 mg Documented By: TD Duloxetine HCl (Duloxetine Hcl 60 Mg Capsule.Dr) 60 mg PO DAILY [facility] Last Admin: 11/03/23 09:12 Dose: 60 mg Documented By: TD Empagliflozin (Empagliflozin 10 Mg Tablet) 10 mg PO DAILY [facility] Last Admin: 11/03/23 09:12 Dose: 10 mg Documented By: TD Finasteride (Finasteride 5 Mg Tablet) 5 mg PO DAILY [facility] Last Admin: 11/03/23 09:20 Dose: 5 mg Documented By: TD Fluticasone/Umeclidinium/Vilanterol (Fluticasone/Umeclidinium/Vilanterol 200/62.5/25 Blst.W.Dev) 1 puff INHALE RDAILY [facility] Last Admin: 11/03/23 08:17 Dose: 1 puff Documented By: JUJU Lactic Acid (Ammonium Lactate 12 % Lotion 226 Gm Bottle) 1 appl TOPICAL BID [facility]; Protocol Last Admin: 11/03/23 09:19 Dose: 1 appl Documented By: TD Lactulose (Lactulose 20 Gm/30 Ml Solution) 20 gm PO BID [facility] Last Admin: 11/03/23 09:11 Dose: 20 gm Documented By: TD Magnesium Hydroxide (Milk Of Magnesia 30 Ml Oral.Susp) 30 ml PO DAILY PRN PRN Reason: Constipation Last Admin: 11/02/23 09:21 Dose: 30 ml Documented By: SHEELA Melatonin (Melatonin 3 Mg Tablet) 6 mg PO BEDTIME PRN PRN Reason: Insomnia Last Admin: 10/27/23 21:43 Dose: 6 mg Documented By: MEGHNA Methimazole (Methimazole 5 Mg Tablet) 5 mg PO DAILY [facility] Last Admin: 11/03/23 09:12 Dose: 5 mg Documented By: TD Ondansetron HCl (Ondansetron Hcl 4 Mg/2 Ml Vial) 4 mg IVPUSH Q8H PRN PRN Reason: Nausea and Vomiting Last Admin: 10/31/23 05:32 Dose: 4 mg Documented By: MARJ Oxybutynin Chloride (Oxybutynin Chloride Er 5 Mg Tab.Er.24) 10 mg PO DAILY [facility] Last Admin: 11/03/23 09:12 Dose: 10 mg Documented By: TD Potassium Chloride (Potassium Chloride Er 20 Meq Tab.Er.Prt) 40 meq PO TID [facility] Last Admin: 11/03/23 09:11 Dose: 40 meq Documented By: TD Pregabalin (Pregabalin 150 Mg Capsule) 150 mg PO TID [facility] Last Admin: 11/03/23 09:12 Dose: 150 mg Documented By: TD Psyllium Hydrophilic Mucilloid (Psyllium Seed 3.7 Gm Packet) 3.7 gm PO DAILY [facility] Last Admin: 11/03/23 09:22 Dose: 3.7 gm Documented By: TD Ropinirole HCl (Ropinirole Hcl 2 Mg Tablet) 2 mg PO TID [facility] Last Admin: 11/03/23 09:12 Dose: 2 mg Documented By: TD Sodium Biphosphate/Sodium Phosphate (Sodium Phosphate,[place]-Dibasic 133 Ml Enema) 133 ml [place] DAILY PRN PRN Reason: Constipation Last Admin: 10/29/23 22:16 Dose: 133 ml Documented By: MARJ Sodium Chloride (0.9 % Sodium Chloride Flush 3 Ml Syringe) 3 ml IVFLUSH QSHIFT [facility] Last Admin: 11/03/23 09:11 Dose: 3 ml Documented By: TD Spironolactone (Spironolactone 25 Mg Tablet) 50 mg PO BID [facility]; Protocol Last Admin: 11/03/23 09:12 Dose: 50 mg Documented By: TD Labs 10/26/23 10:20 11/03/23 07:01 Labs: Laboratory Results - last 24 hr 11/03/23 07:01 Anion Gap 17 Estim Creat Clear Calc 61.4 Estimated GFR 29 Random Glucose 111 Calcium 9.8 Magnesium 2.3 Assessment and Plan (1) Pulmonary edema: Status: Acute (2) Anasarca: Status: Acute (3) Scrotal swelling: Status: Acute Plan 68-year-old male with a PMH significant for paroxysmal AFib on Eliquis and amiodarone, HFrEF, lymphedema with chronic venous stasis, HTN, COPD on 3L home O2, JEFFRY on CPAP, seronegative RA, HTN, overactive bladder, and obesity class 3 who presents to the ED for evaluation of abdominal and testicular swelling x3-4 weeks, worsening in the past few days. Admitted for anasarca with abd and significant scrotal swelling that has failed outpatient diuretic therapy. MARIAN --likely from overdiuresis -hold diuretics (lasix, aldacton3) -gentle IVF,, LR at 50/hr -neprhology consult -follow bmp Anasarca, pulmonary edema d/t diastolic heart failure -todate negative 18 L -holding lasix and aldactone due to rising Cr startedon jardiance Low-salt diet, fluid restriction Follow lytes, I/O, BMP, replace K as needed cardiology following Aggresive replacement of potassium echocardiogram 10/29, hyperdynamic heart with EF > 70 Scrotal cellulitis/edema -nearly resolved, continue Doxy for 10 days, started 10/25, ending 11/03 Acute Hypokalemia, d/t Lasix, K is normal, keep around 4 -replace as needed, dc scheduled K d/t renal failure, also hold aldactone Constipation--bowel regimen and enema PRN HTN-controlled. Paroxysmal AFIB--rythm controlled with amio, eliquis for stroke prevention COPD Not in acute exacerbation Continue home 3L O2 Continue home inhalers Chronic venous stasis Follows with wound care clinic, last seen 2 days prior on 10/23 Rickie wraps daily Ammonium lactate h/o hypERthyroidism -methimazole Peripheral neuropathy Continue pregabalin overactive bladder -oxybutynin bph--proscar HLD--Lipitor mood disorder, dulexetine Mood disorder Continue home mood stabalizers Full Code DVT Prophylaxis: On Eliquis need for inpatient: heart failure and kidney failure management Quality Stroke Does the patient have a stroke diagnosis?: No VTE Prior VTE?: No VTE Risk Level:: Medical - moderate - high VTE Device Contraindication: Treatment Not Indicated VTE Drug Contraindication: N/A - Med Ordered
[2023-11-03] MEDS: Lactated Ringers 1,000 ML 50 ML IVCONT (11:15)
--- NOTE | 2023-11-03 13:39 | PM.PNCARD ---
Subjective Subjective Date of Service: 11/03/23 Principal diagnosis: Right heart failure Interval history: Dinh's creatinine is further elevated today in the 2.4 range. He said his leg edema has improved significantly. He has quarterly swelling has improved. Continues to be short of breath with exertion and needs oxygen therapy. Denies any palpitation, lightheadedness, syncope. Blood pressure is stabilized. His diuretics were withheld yesterday due to elevated creatinine. Overall negative balance of 18 L since admission Review of Systems Constitutional: Reports no additional constitutional complaints Cardiovascular: Denies chest pain, Reports leg edema, Denies lightheadedness, Denies Loss of Consciousness, Denies palpitations and Reports dyspnea on exertion Respiratory: Reports no additional respiratory complaints and Reports dyspnea on exertion Endocrine: Denies palpitations Physical Exam Vital Signs: Last Vital Signs Temp 96.8 F 11/03/23 10:57 Pulse 92 11/03/23 10:57 Resp 20 11/03/23 10:57 BP 93/56 L 11/03/23 10:57 Pulse Ox 95 11/03/23 10:57 O2 Del Method Nasal Cannula 11/03/23 10:57 O2 Flow Rate 3 11/03/23 10:57 Oxygen Flow Rate 3 10/26/23 09:59 BMI result Body Mass Index 54.8 GENERAL APPEARANCE: in no acute distress, on supplemental oxygen. Morbidly obese. NECK: no carotid bruit, mild jugular venous distention. SKIN: no suspicious lesions, warm and dry. HEART: no murmurs, regular rate and rhythm. LUNGS: Clear to auscultation bilaterally. ABDOMEN: soft, nontender. EXTREMITIES: Lymphedema of the lower extremities, no significant pitting edema. scrotal edema-improved. PERIPHERAL PULSES: equal. NEUROLOGIC: No gross deficits, AAO X 3 Objective Labs and Meds 10/26/23 10:20 11/03/23 07:01 Lab results: Laboratory Results - last 24 hr 11/03/23 07:01 Sodium 136 Potassium 4.6 D Chloride 98 Carbon Dioxide 26 Anion Gap 17 BUN 40 H Creatinine 2.24 H Estim Creat Clear Calc 61.4 Estimated GFR 29 Random Glucose 111 Calcium 9.8 Magnesium 2.3 Progress Note: A&P Assessment and plan (1) Acute congestive heart failure: Status: Acute Assessment and Plan: Acute congestive heart failure with negative output of 18 L since admission, with elevated creatinine at this time most likely suggestive of over diuresis at this point in time. Although clinically very difficult to assess his fluid status given his body habitus and still having leg edema. Leg edema could be due to peripheral venous hypertension related to obesity. He has multiple risk factors for recurrent heart failure syndrome. However currently I would agree with holding diuretic regimen and also would hold Jardiance therapy. Would gently hydrate him with 50 cc an hour. Strict intake and output chart needs to be pursued. Follow-up with nephrology. Overall difficulty in management given his body habitus is significant. Once clinically improved, will resume oral diuretic therapy most likely with drugs like bumetanide. He is at risk for right heart failure given his morbid obesity, sleep apnea as well as chronic pulmonary parenchymal disease with respiratory failure. I will also currently holds spironolactone therapy. Eventually once renal function improves can switch him to epresenone therapy due to gynecomastia related to spironolactone therapy. (2) Paroxysmal atrial fibrillation: Status: Acute Assessment and Plan: Atrial fibrillation which has remained suppressed. Continue amiodarone therapy. For now continue Eliquis therapy. If creatinine continues to remain elevated well up to tomorrow can hold his Eliquis therapy till his creatinine starts downtrending. Will follow with you Time Spent With Patient Time: Total time managing care of this patient today ____ minutes. Progress Note: Quality Stroke Does the patient have a stroke diagnosis?: No Procedures Date of Service Date of Service: 11/03/23
--- NOTE | 2023-11-03 13:46 | MHC.CM.PN ---
EMR reviewed and per MD rounds, pt is not medically cleared for discharge due to management of heart failure and MARIAN.
[2023-11-03 14:03] LABS: Appearance Urine Clear; Color Urine Yellow; Glucose Urine UA >=1000 mg/dL (Negative); Leukocyte Esterase Urine Trace (Negative); Nitrite Urine Negative (Negative); PH 5.5 (5.0-9.0); Specific Gravity - Urine 1.025 (1.005-1.025); UMIC TRIGGER UA YES; Urine Blood Negative (Negative); Urine Ketones Trace mg/dL (Negative); Urine Protein Trace mg/dL (Neg-Trace)
[2023-11-03 14:19] LABS: Bacteria Urine None Seen (None Seen); Hyaline Casts Urine 0-2 /LPF (0-2); RBC Urine 0-2 /HPF (0-2)
[2023-11-03 14:33] LABS: Creatinine Urine 200.66 mg/dL
[2023-11-03 14:34] LABS: Total Protein Urine Random 16 mg/dL (<12)
[2023-11-03] MEDS: Doxazosin Mesylate 2 MG TABLET 8 MG PO (20:19)
[2023-11-03] MEDS: Atorvastatin Calcium 80 MG TABLET PO (20:20)
--- NOTE | 2023-11-03 21:54 | P.CONNP_ITS ---
History of Present Illness Reason for Consult Consult date: 11/03/23 Reason for consult: marian Chief Complaint Chief complaint: Scrotal swelling, RHF History of Present Illness Narrative: 68-year-old male with significant h/o paroxysmal AFib on Eliquis and amiodarone, HFrEF, lymphedema with chronic venous stasis, HTN, COPD on 3L home O2, JEFFRY on CPAP, seronegative RA, HTN, overactive bladder, and obesity class 3 who presents to the ED for evaluation of abdominal and testicular swelling x3-4 weeks, worsening in the past few days. Patient initially saw his PCP Dr. Augustine around 2 weeks ago who also coordinated care with Dr. Head in Urology. Patient's Lasix was increased from 40 mg p.o. daily to 40 mg b.i.d. to little effect. Patient then underwent a scrotal ultrasound on 10/16 which suggested scrotal skin thickening and subcutaneous edema possibly suggestive of cellulitis. Patient was started on doxycycline on 10/19. However, patient states 3-4 days ago scrotal swelling noticeably increased, especially in the last day when it was ?growing by the hour?. Patient called Dr. Head's office and was told him to come to the ED for further evaluation. [facility] Past Medical History Medical History (Updated 11/03/23 @ 21:56 by Sreedhar Kruse MD) Congestive heart failure Testicular swelling Osteoarthritis of right knee Melanoma History of cardioversion Hereditary lymphedema Venous insufficiency Morbid obesity Lymphedema COPD (chronic obstructive pulmonary disease) Sensory neuropathy COVID-19 Respiratory failure with hypoxia Restrictive lung disease COPD (chronic obstructive pulmonary disease) JEFFRY on CPAP MATUTE (dyspnea on exertion) Chronic cystitis Bladder outlet obstruction Restless leg syndrome Traumatic complete tear of right rotator cuff Injury of right rotator cuff History of diverticulitis History of umbilical hernia Family History Family History Father Arthritis Diabetes Mother Arthritis Kidney stones Family/Other Arthritis Sister No problems noted. Sister No problems noted. Son No problems noted. Surgical History Surgical History Hx of colonoscopy History of appendectomy History of arthroscopy of left knee Social History Social History Household Members: Spouse Household Members Other:: Floridalma [facility] Do you presently have visiting nurse or other home services: No Alcohol intake: current Alcohol intake frequency: 0-2 drinks per day Alcohol type: beer Comment: refusing bed alarm Patient Tobacco Use Status: Former Tobacco user Tobacco use type: Cigarette Cigarette Packs Per Day: 1 Cigarettes Per Day: 20.0 Years Smoked: 30 years e-Cigarette/Vaping Use: Never Used Second Hand Smoke Exposure: No Substance Use Type: Marijuana Advance Directives Date on File: 05/16/20 service: No Current occupational status: retired 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 Cognitive needs: No Hearing needs: No Vision needs: No Meds Allergies Allergy/AdvReac Type Severity Reaction Status Date / Time No Known Allergies Allergy Verified 10/26/23 10:02 [No Known Allergies*] Active Medications: Current Medications Acetaminophen (Acetaminophen 325 Mg Tablet) 650 mg PO Q6H PRN PRN Reason: Pain, Mild (Pain Scale 1-3), fever or headache Last Admin: 11/01/23 14:04 Dose: 650 mg Albuterol Sulfate (Albuterol Sulfate 90 Mcg 8 Gm Inhaler) 2 puff INHALE Q6H PRN PRN Reason: for wheezing Amiodarone HCl (Amiodarone Hcl 200 Mg Tablet) 200 mg PO DAILY [facility] Last Admin: 11/03/23 09:12 Dose: 200 mg Apixaban (Apixaban 5 Mg Tablet) 5 mg PO BID [facility] Last Admin: 11/03/23 20:18 Dose: 5 mg Atorvastatin Calcium (Atorvastatin Calcium 80 Mg Tablet) 80 mg PO BEDTIME [facility] Last Admin: 11/03/23 20:20 Dose: 80 mg Benzonatate (Benzonatate 100 Mg Capsule) 100 mg PO TID PRN PRN Reason: Cough Calcium Carbonate (Calcium Carbonate 750 Mg Tab.Chew) 750 mg PO Q4H PRN PRN Reason: Heartburn Doxazosin Mesylate (Doxazosin Mesylate 2 Mg Tablet) 8 mg PO BEDTIME [facility]; Protocol Last Admin: 11/03/23 20:19 Dose: 8 mg Doxycycline Monohydrate (Doxycycline Monohydrate 100 Mg Capsule) 100 mg PO BID [facility] Last Admin: 11/03/23 20:19 Dose: 100 mg Duloxetine HCl (Duloxetine Hcl 60 Mg Capsule.Dr) 60 mg PO DAILY [facility] Last Admin: 11/03/23 09:12 Dose: 60 mg Finasteride (Finasteride 5 Mg Tablet) 5 mg PO DAILY [facility] Last Admin: 11/03/23 09:20 Dose: 5 mg Fluticasone/Umeclidinium/Vilanterol (Fluticasone/Umeclidinium/Vilanterol 200/62.5/25 Blst.W.Dev) 1 puff INHALE RDAILY [facility] Last Admin: 11/03/23 08:17 Dose: 1 puff Lactated Ringer's (Lr) 1,000 mls @ 50 mls/hr IVCONT .Q20H [facility] Last Admin: 11/03/23 11:15 Dose: 50 mls/hr Lactic Acid (Ammonium Lactate 12 % Lotion 226 Gm Bottle) 1 appl TOPICAL BID [facility]; Protocol Last Admin: 11/03/23 09:19 Dose: 1 appl Lactulose (Lactulose 20 Gm/30 Ml Solution) 20 gm PO BID [facility] Last Admin: 11/03/23 20:18 Dose: 20 gm Magnesium Hydroxide (Milk Of Magnesia 30 Ml Oral.Susp) 30 ml PO DAILY PRN PRN Reason: Constipation Last Admin: 11/02/23 09:21 Dose: 30 ml Melatonin (Melatonin 3 Mg Tablet) 6 mg PO BEDTIME PRN PRN Reason: Insomnia Last Admin: 10/27/23 21:43 Dose: 6 mg Methimazole (Methimazole 5 Mg Tablet) 5 mg PO DAILY [facility] Last Admin: 11/03/23 09:12 Dose: 5 mg Ondansetron HCl (Ondansetron Hcl 4 Mg/2 Ml Vial) 4 mg IVPUSH Q8H PRN PRN Reason: Nausea and Vomiting Last Admin: 10/31/23 05:32 Dose: 4 mg Oxybutynin Chloride (Oxybutynin Chloride Er 5 Mg Tab.Er.24) 10 mg PO DAILY [facility] Last Admin: 11/03/23 09:12 Dose: 10 mg Pregabalin (Pregabalin 150 Mg Capsule) 150 mg PO TID [facility] Last Admin: 11/03/23 20:20 Dose: 150 mg Psyllium Hydrophilic Mucilloid (Psyllium Seed 3.7 Gm Packet) 3.7 gm PO DAILY [facility] Last Admin: 11/03/23 09:22 Dose: 3.7 gm Ropinirole HCl (Ropinirole Hcl 2 Mg Tablet) 2 mg PO TID [facility] Last Admin: 11/03/23 20:19 Dose: 2 mg Sodium Biphosphate/Sodium Phosphate (Sodium Phosphate,[place]-Dibasic 133 Ml Enema) 133 ml [place] DAILY PRN PRN Reason: Constipation Last Admin: 10/29/23 22:16 Dose: 133 ml Sodium Chloride (0.9 % Sodium Chloride Flush 3 Ml Syringe) 3 ml IVFLUSH QSHIFT [facility] Last Admin: 11/03/23 15:06 Dose: 3 ml Spironolactone (Spironolactone 25 Mg Tablet) 50 mg PO BID [facility]; Protocol Last Admin: 11/03/23 09:12 Dose: 50 mg Home Medications ?Medication ?Instructions ?Recorded ?Confirmed ?Last Taken ?Type albuterol sulfate 90 mcg/actuation 2 puff PO Q6H PRN for wheezing 10/13/22 10/26/23 Unknown History aerosol inhaler spironolactone 25 mg tablet 25 mg PO DAILY 10/26/23 10/26/23 10/26/23 09:00 History tocilizumab 162 mg/0.9 mL 162 mg subcut SA@0900 10/26/23 10/26/23 10/25/23 History subcutaneous pen injector (Actemra ACTPen) Physical Exam Vital Signs: Last Vital Signs Temp 97.0 F 11/03/23 19:52 Pulse 81 11/03/23 19:52 Resp 18 11/03/23 19:52 BP 105/55 L 11/03/23 20:19 Pulse Ox 95 11/03/23 19:52 O2 Del Method Nasal Cannula 11/03/23 19:52 O2 Flow Rate 3 11/03/23 19:52 Oxygen Flow Rate 3 10/26/23 09:59 BMI result Body Mass Index 54.8 Awake. Comfortable. Neck is supple. Mucosa moist. Lungs bilateral scattered rhonchi. Heart S1-S2 heard no gallop. Abdomen soft. Extremities 2+ edema. Scrotal edema No involuntary movements. No myoclonus. Results Lab Results 10/26/23 10:20 11/03/23 07:01 Lab results: Chemistry 11/01/23 11/02/23 11/03/23 08:14 07:58 07:01 Sodium 135 136 136 Potassium 3.2 L 3.6 4.6 D Carbon Dioxide 29 28 26 BUN 21 H 27 H 40 H Creatinine 1.17 1.47 H 2.24 H Calcium 9.2 9.3 9.8 Urinalysis 11/03/23 13:40 Urine Color Yellow Urine Appearance Clear Urine pH 5.5 Ur Specific [place] 1.025 Urine Protein Trace Urine Glucose (UA) >=1000 H Urine Ketones Trace Urine Blood Negative Urine Nitrite Negative Ur Leukocyte Esterase Trace H Urine RBC 0-2 Urine WBC 6-10 H Ur Squamous Epith Cells 3-5 Hyaline Casts 0-2 Urine Studies 11/03/23 13:40 Urine Creatinine 200.66 Assessment and Plan (1) Anasarca: Status: Acute (2) MARIAN (acute kidney injury): Status: Acute Plan MARIAN due to hypoperfusion - probably from aggresive diuresis/relaive hypotension Noobstruction No evidence of AGN Suggest Hold diuretics for 1-2 days REsume diuretics at lower dose and keep O > I by 1-2 L per 24 hrs Avoid hypotension Avoid nephrotoxins No indication for dialysis Check urine for Pro: Cr shall follow along Procedures Date of Service Date of Service: 11/03/23
[2023-11-04] VITALS (7 sets, daily range): BP systolic 122–143; BP diastolic 58–79; PULSE 65–86; RESP 18–20; TEMP 36.2–36.9; O2SAT 95–97
[2023-11-04] MEDS: Fluticasone/Umeclidinium/Vilanterol 200/62.5/25 BLST.W.DEV 1 PUFF INHALE (08:07)
[2023-11-04 08:39] LABS: Anion Gap 12 (12-20); Blood Urea Nitrogen 27 mg/dL (9-16); Calcium 9.2 mg/dL (8.4-10.2); Carbon Dioxide 26 mmol/L (22-29); Chloride 100 mmol/L (96-108); Creatinine Clr Calc Pharmacy 116.5; Estimated Glomerular Filt Rate > 60; Glucose Random 97 mg/dL (60-115); Magnesium 2.1 mg/dL (1.6-2.6); Potassium 4.1 mmol/L (3.3-5.1); Sodium 134 mmol/L (135-145)
--- NOTE | 2023-11-04 09:27 | PM.CNNEP ---
History of Present Illness Reason for Consult Consult date: 11/04/23 Chief Complaint Chief complaint: Scrotal swelling, RHF History of Present Illness Narrative: 68-year-old male with a PMH significant for paroxysmal AFib on Eliquis and amiodarone, HFrEF, lymphedema with chronic venous stasis, HTN, COPD on 3L home O2, JEFFRY on CPAP, seronegative RA, HTN, overactive bladder, and obesity class 3 who presents to the ED for evaluation of abdominal and testicular swelling x3-4 weeks, worsening in the past few days. Admitted for anasarca with abd and significant scrotal swelling that has failed outpatient diuretic therapy. Developed MARIAN, likely from aggressive diuresis, diuretics held and nephrology consulted. Pt has since been started on IVF 50mL/hr LR Review of Systems Review of Systems Increased abdominal and scrotal swelling Scrotal discomfort and heaviness SOB, MATUTE No fever, chills, N/V/D or abd pain Denies chest pain/pressure or palpitations Constitutional: Reports as per HPI and Reports no additional constitutional complaints Cardiovascular: Denies chest pain, Reports leg edema, Denies lightheadedness and Reports dyspnea on exertion Respiratory: Reports no additional respiratory complaints and Reports dyspnea on exertion PMFSH Past Medical History Medical History (Updated 11/03/23 @ 21:56 by Sreedhar Kruse MD) Congestive heart failure Testicular swelling Osteoarthritis of right knee Melanoma History of cardioversion Hereditary lymphedema Venous insufficiency Morbid obesity Lymphedema COPD (chronic obstructive pulmonary disease) Sensory neuropathy COVID-19 Respiratory failure with hypoxia Restrictive lung disease COPD (chronic obstructive pulmonary disease) JEFFRY on CPAP MATUTE (dyspnea on exertion) Chronic cystitis Bladder outlet obstruction Restless leg syndrome Traumatic complete tear of right rotator cuff Injury of right rotator cuff History of diverticulitis History of umbilical hernia Family History Family History Father Arthritis Diabetes Mother Arthritis Kidney stones Family/Other Arthritis Sister No problems noted. Sister No problems noted. Son No problems noted. Surgical History Surgical History Hx of colonoscopy History of appendectomy History of arthroscopy of left knee Social History Social History Household Members: Spouse Household Members Other:: Floridalma Housing: Condominium Do you presently have visiting nurse or other home services: No Alcohol intake: current Alcohol intake frequency: 0-2 drinks per day Alcohol type: beer Comment: refusing bed alarm Patient Tobacco Use Status: Former Tobacco user Tobacco use type: Cigarette Cigarette Packs Per Day: 1 Cigarettes Per Day: 20.0 Years Smoked: 30 years e-Cigarette/Vaping Use: Never Used Second Hand Smoke Exposure: No Substance Use Type: Marijuana Advance Directives Date on File: 05/16/20 service: No Current occupational status: retired 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 Cognitive needs: No Hearing needs: No Vision needs: No Meds Allergies Allergy/AdvReac Type Severity Reaction Status Date / Time No Known Allergies Allergy Verified 10/26/23 10:02 [No Known Allergies*] Active Medications: Current Medications Acetaminophen (Acetaminophen 325 Mg Tablet) 650 mg PO Q6H PRN PRN Reason: Pain, Mild (Pain Scale 1-3), fever or headache Last Admin: 11/01/23 14:04 Dose: 650 mg Albuterol Sulfate (Albuterol Sulfate 90 Mcg 8 Gm Inhaler) 2 puff INHALE Q6H PRN PRN Reason: for wheezing Amiodarone HCl (Amiodarone Hcl 200 Mg Tablet) 200 mg PO DAILY [facility] Last Admin: 11/03/23 09:12 Dose: 200 mg Apixaban (Apixaban 5 Mg Tablet) 5 mg PO BID [facility] Last Admin: 11/03/23 20:18 Dose: 5 mg Atorvastatin Calcium (Atorvastatin Calcium 80 Mg Tablet) 80 mg PO BEDTIME [facility] Last Admin: 11/03/23 20:20 Dose: 80 mg Benzonatate (Benzonatate 100 Mg Capsule) 100 mg PO TID PRN PRN Reason: Cough Calcium Carbonate (Calcium Carbonate 750 Mg Tab.Chew) 750 mg PO Q4H PRN PRN Reason: Heartburn Doxazosin Mesylate (Doxazosin Mesylate 2 Mg Tablet) 8 mg PO BEDTIME [facility]; Protocol Last Admin: 11/03/23 20:19 Dose: 8 mg Doxycycline Monohydrate (Doxycycline Monohydrate 100 Mg Capsule) 100 mg PO BID [facility] Last Admin: 11/03/23 20:19 Dose: 100 mg Duloxetine HCl (Duloxetine Hcl 60 Mg Capsule.Dr) 60 mg PO DAILY [facility] Last Admin: 11/03/23 09:12 Dose: 60 mg Finasteride (Finasteride 5 Mg Tablet) 5 mg PO DAILY [facility] Last Admin: 11/03/23 09:20 Dose: 5 mg Fluticasone/Umeclidinium/Vilanterol (Fluticasone/Umeclidinium/Vilanterol 200/62.5/25 Blst.W.Dev) 1 puff INHALE RDAILY [facility] Last Admin: 11/04/23 08:07 Dose: 1 puff Furosemide (Furosemide 40 Mg Tablet) 40 mg PO BID@0900,1800 [facility]; Protocol Lactated Ringer's (Lr) 1,000 mls @ 50 mls/hr IVCONT .Q20H [facility] Last Infusion: 11/04/23 09:22 Dose: Infused Lactic Acid (Ammonium Lactate 12 % Lotion 226 Gm Bottle) 1 appl TOPICAL BID [facility]; Protocol Last Admin: 11/03/23 22:00 Dose: 1 appl Lactulose (Lactulose 20 Gm/30 Ml Solution) 20 gm PO BID [facility] Last Admin: 11/03/23 20:18 Dose: 20 gm Magnesium Hydroxide (Milk Of Magnesia 30 Ml Oral.Susp) 30 ml PO DAILY PRN PRN Reason: Constipation Last Admin: 11/02/23 09:21 Dose: 30 ml Melatonin (Melatonin 3 Mg Tablet) 6 mg PO BEDTIME PRN PRN Reason: Insomnia Last Admin: 10/27/23 21:43 Dose: 6 mg Methimazole (Methimazole 5 Mg Tablet) 5 mg PO DAILY [facility] Last Admin: 11/03/23 09:12 Dose: 5 mg Ondansetron HCl (Ondansetron Hcl 4 Mg/2 Ml Vial) 4 mg IVPUSH Q8H PRN PRN Reason: Nausea and Vomiting Last Admin: 10/31/23 05:32 Dose: 4 mg Oxybutynin Chloride (Oxybutynin Chloride Er 5 Mg Tab.Er.24) 10 mg PO DAILY [facility] Last Admin: 11/03/23 09:12 Dose: 10 mg Pregabalin (Pregabalin 150 Mg Capsule) 150 mg PO TID [facility] Last Admin: 11/03/23 20:20 Dose: 150 mg Psyllium Hydrophilic Mucilloid (Psyllium Seed 3.7 Gm Packet) 3.7 gm PO DAILY [facility] Last Admin: 11/03/23 09:22 Dose: 3.7 gm Ropinirole HCl (Ropinirole Hcl 2 Mg Tablet) 2 mg PO TID [facility] Last Admin: 11/03/23 20:19 Dose: 2 mg Sodium Biphosphate/Sodium Phosphate (Sodium Phosphate,[place]-Dibasic 133 Ml Enema) 133 ml [place] DAILY PRN PRN Reason: Constipation Last Admin: 10/29/23 22:16 Dose: 133 ml Sodium Chloride (0.9 % Sodium Chloride Flush 3 Ml Syringe) 3 ml IVFLUSH QSHIFT [facility] Last Admin: 11/04/23 07:46 Dose: Not Given Spironolactone (Spironolactone 25 Mg Tablet) 50 mg PO BID [facility]; Protocol Last Admin: 11/03/23 09:12 Dose: 50 mg Home Medications ?Medication ?Instructions ?Recorded ?Confirmed ?Last Taken ?Type albuterol sulfate 90 mcg/actuation 2 puff PO Q6H PRN for wheezing 10/13/22 10/26/23 Unknown History aerosol inhaler spironolactone 25 mg tablet 25 mg PO DAILY 10/26/23 10/26/23 10/26/23 09:00 History tocilizumab 162 mg/0.9 mL 162 mg subcut SA@0900 10/26/23 10/26/23 10/25/23 History subcutaneous pen injector (Actemra ACTPen) Physical Exam Vital Signs: Last Vital Signs Temp 97.6 F 11/04/23 07:14 Pulse 75 11/04/23 08:08 Resp 20 11/04/23 08:08 BP 128/64 11/04/23 07:14 Pulse Ox 95 11/04/23 07:14 O2 Del Method Nasal Cannula 11/04/23 07:14 O2 Flow Rate 3 11/04/23 07:14 Oxygen Flow Rate 3 10/26/23 09:59 BMI result Body Mass Index 54.8 Const Other: Constitutional : Awake, interactive, not in distress Neck : Normal inspection, Supple Cardiovascular : RRR, no JVP, chronic non-pitting bilateral lower extremity edema Respiratory : good bilateral air entry, no crackles, wheezes or rhonchi Gastrointestinal: soft, lax, Normal bowel sounds, Non tender Skin : Warm, Dry, dry skin lower extremities , small dry wounds with no drainage Urology: Bautista in place, scrotum still significantly swollen, no tenderness Neurological : Alert & oriented x3, No focal deficit General: cooperative, comfortable and no acute distress Orientation/consciousness: patient oriented x3 Neck Neck: Yes normal visual inspection and Yes no JVD Chest Chest palpation & inspection: normal inspection of the chest Resp Effort & Inspection: normal respiratory effort Auscultation: clear to auscultation bilaterally, no crackles, no rales, no rhonchi and wheezes Cardio Jugular venous distension: no JVD Rate: regular rate Rhythm: regular rhythm Heart sounds: S1 normal heart sound present and S2 normal heart sound present General: No CVA tenderness Back/Spine/Pelvis Back: No CVA tenderness Skin General skin exam: no rashes or lesions noted Neuro General: patient oriented x3 and moves all extremities Extrem General: Yes edema (+2 bilateral lower extremity edema) Results Lab Results 10/26/23 10:20 11/04/23 07:22 Lab results: Chemistry 11/02/23 11/03/23 11/04/23 07:58 07:01 07:22 Sodium 136 136 134 L Potassium 3.6 4.6 D 4.1 Carbon Dioxide 28 26 26 BUN 27 H 40 H 27 H Creatinine 1.47 H 2.24 H 1.18 Calcium 9.3 9.8 9.2 D Urinalysis 11/03/23 13:40 Urine Color Yellow Urine Appearance Clear Urine pH 5.5 Ur Specific [place] 1.025 Urine Protein Trace Urine Glucose (UA) >=1000 H Urine Ketones Trace Urine Blood Negative Urine Nitrite Negative Ur Leukocyte Esterase Trace H Urine RBC 0-2 Urine WBC 6-10 H Ur Squamous Epith Cells 3-5 Hyaline Casts 0-2 Urine Studies 11/03/23 13:40 Urine Creatinine 200.66 Assessment and Plan (1) Anasarca: Status: Acute (2) MARIAN (acute kidney injury): Status: Acute Plan MARIAN from hypoperfusion 2/2 aggressive diuresis for anasarca diuretics have been held for 1 day (furosemide, spironolactone) recommend discontinuing IVF LR 50mg/hr start lasix 40mg BID (previously on 80mg BID) for edema management continue to restrict fluid, low salt diet follow electrolytes, I/O, BMP, replace K as needed Procedures Date of Service Date of Service: 11/04/23
[2023-11-04] MEDS: Doxycycline Monohydrate 100 MG CAPSULE PO ×2 (09:28→21:31)
[2023-11-04] MEDS: Amiodarone HCL 200 MG TABLET PO (09:28)
[2023-11-04] MEDS: Apixaban 5 MG TABLET PO ×2 (09:28→21:31)
[2023-11-04] MEDS: Psyllium seed 3.7 GM PACKET PO (09:28)
[2023-11-04] MEDS: Furosemide 40 MG TABLET PO ×2 (09:28→17:10)
[2023-11-04] MEDS: Pregabalin 150 MG CAPSULE PO ×3 (09:28→21:31)
[2023-11-04] MEDS: oxyBUTYnin chloride ER 5 MG TAB.ER.24 10 MG PO (09:28)
[2023-11-04] MEDS: methIMAzole 5 MG TABLET PO (09:28)
[2023-11-04] MEDS: DULoxetine HCl 60 MG CAPSULE.DR PO (09:28)
[2023-11-04] MEDS: Finasteride 5 MG TABLET PO (09:29)
[2023-11-04] MEDS: rOPINIRole HCL 2 MG TABLET PO ×3 (09:29→21:30)
[2023-11-04] MEDS: Lactulose 20 GM/30 ML SOLUTION PO ×2 (09:29→21:31)
[2023-11-04] MEDS: Ammonium Lactate 12 % Lotion 226 GM BOTTLE 1 APPL TOPICAL ×2 (09:33→21:31)
--- NOTE | 2023-11-04 09:58 | P.PNCA_ITS ---
Subjective Subjective Date of Service: 11/04/23 Principal diagnosis: Right heart failure Interval history: Patient's creatinine is improved with gentle hydration. No new symptoms. Still using oxygen. Review of Systems Constitutional: Reports no additional constitutional complaints Cardiovascular: Denies chest pain, Reports leg edema, Denies lightheadedness, Denies Loss of Consciousness, Denies palpitations and Reports dyspnea on exertion Respiratory: Reports dyspnea on exertion Endocrine: Denies palpitations Physical Exam Vital Signs: Last Vital Signs Temp 97.6 F 11/04/23 07:14 Pulse 75 11/04/23 08:08 Resp 20 11/04/23 08:08 BP 128/64 11/04/23 07:14 Pulse Ox 95 11/04/23 07:14 O2 Del Method Nasal Cannula 11/04/23 07:14 O2 Flow Rate 3 11/04/23 07:14 Oxygen Flow Rate 3 10/26/23 09:59 BMI result Body Mass Index 54.8 GENERAL APPEARANCE: in no acute distress, on supplemental oxygen. Morbidly obese. NECK: no carotid bruit, mild jugular venous distention. SKIN: no suspicious lesions, warm and dry. HEART: no murmurs, regular rate and rhythm. LUNGS: Clear to auscultation bilaterally. ABDOMEN: soft, nontender. EXTREMITIES: Lymphedema of the lower extremities, no significant pitting edema. scrotal edema-improved. PERIPHERAL PULSES: equal. NEUROLOGIC: No gross deficits, AAO X 3 Extrem General: Yes venous stasis dermatitis Objective Labs and Meds 10/26/23 10:20 11/04/23 07:22 Lab results: Laboratory Results - last 24 hr 11/03/23 11/04/23 13:40 07:22 Sodium 134 L Potassium 4.1 Chloride 100 Carbon Dioxide 26 Anion Gap 12 BUN 27 H Creatinine 1.18 Estim Creat Clear Calc 116.5 Estimated GFR > 60 Random Glucose 97 Calcium 9.2 D Magnesium 2.1 Urine Color Yellow Urine Appearance Clear Urine pH 5.5 Ur Specific [place] 1.025 Urine Protein Trace Urine Glucose (UA) >=1000 H Urine Ketones Trace Urine Blood Negative Urine Nitrite Negative Ur Leukocyte Esterase Trace H Urine RBC 0-2 Urine WBC 6-10 H Ur Squamous Epith Cells 3-5 Urine Bacteria None Seen Hyaline Casts 0-2 U Random Total Protein 16 H Ur Random Sodium 26.0 Urine Creatinine 200.66 Progress Note: A&P Assessment and plan (1) Acute congestive heart failure: Status: Acute Assessment and Plan: Acute congestive heart failure with overall negative balance of 18 L with MARIAN which improved with gentle hydration heart failure management discussed in details. Will require outpatient workup with hemodynamics evaluation. May also benefit from CardioMEMS device if he has truly elevated left-sided filling pressures that causes predominantly right heart failure. Optimization of pulmonary function and hypoxia treatment. May require CPAP titration study to assess for adequate response. Switch to Bumex 2 mg daily. Daily weight monitoring avoidance of salt loading and additional diuretics as need be was discussed with him. Add Jardiance 10 mg to his regimen. Continue rhythm control approach. Aggressive weight loss as outpatient. (2) Paroxysmal atrial fibrillation: Status: Acute Assessment and Plan: Paroxysmal atrial fibrillation, currently suppressed on amiodarone therapy. Continue the same. Continue full oral anticoagulation Eliquis. Will set up for outpatient follow-up in 7-10 days Time Spent With Patient Time: Total time managing care of this patient today ____ minutes. Progress Note: Quality Stroke Does the patient have a stroke diagnosis?: No Procedures Date of Service Date of Service: 11/04/23
[2023-11-04] MEDS: Empagliflozin 10 MG TABLET PO (11:15)
[2023-11-04] MEDS: Docusate Sodium 100 MG CAPSULE PO ×2 (11:15→21:31)
[2023-11-04] MEDS: polyethylene glycoL 3350 17 GM POWD.PACK PO (11:15)
--- NOTE | 2023-11-04 11:19 | PM.PNNEP ---
Subjective Subjective Date of Service: 11/04/23 Principal diagnosis: Right heart failure Interval history: Has been treated for heart failure and fluid overload and had been on diuretics drip, transitioned to IV push but has developed MARIAN with diuresis diuretics on hold yesterday, 50mL/hr LR IVF added, renal function is improving. pt is feeling better overall, though still has some edema in extremities and scrotum that are uncomfortable Physical Exam Vital Signs: Vital Signs: Last Vital Signs Temp 98.5 F 11/04/23 11:11 Pulse 86 11/04/23 11:11 Resp 20 11/04/23 11:11 BP 143/65 H 11/04/23 11:11 Pulse Ox 97 11/04/23 11:11 O2 Del Method Nasal Cannula 11/04/23 11:11 O2 Flow Rate 3 11/04/23 11:11 Oxygen Flow Rate 3 10/26/23 09:59 BMI result Body Mass Index 54.8 Const: General: comfortable; No acute distress Orientation/consciousness: patient oriented x3 Neck: Neck: Yes no JVD Resp: Effort & Inspection: normal respiratory effort Auscultation: crackles (No crackles), rales (No rales), rhonchi (No rhonchi) and wheezes Cardio: Jugular venous distension: no JVD Heart sounds: S1 normal heart sound present and S2 normal heart sound present GI: Inspection: Yes normal to inspection Palpation (GI): Soft to palpation : General: Yes no CVA tenderness Back/Spine/Pelvis: Back: no CVA tenderness Neuro: General: patient oriented x3 and no focal motor deficits Extrem: General: Yes edema (+2 bilateral lower extremity edema) Objective Data Labs 10/26/23 10:20 11/04/23 07:22 Labs: Laboratory Results - last 24 hr 11/03/23 11/04/23 13:40 07:22 Sodium 134 L Potassium 4.1 Chloride 100 Carbon Dioxide 26 Anion Gap 12 BUN 27 H Creatinine 1.18 Estim Creat Clear Calc 116.5 Estimated GFR > 60 Random Glucose 97 Calcium 9.2 D Magnesium 2.1 Urine Color Yellow Urine Appearance Clear Urine pH 5.5 Ur Specific [place] 1.025 Urine Protein Trace Urine Glucose (UA) >=1000 H Urine Ketones Trace Urine Blood Negative Urine Nitrite Negative Ur Leukocyte Esterase Trace H Urine RBC 0-2 Urine WBC 6-10 H Ur Squamous Epith Cells 3-5 Urine Bacteria None Seen Hyaline Casts 0-2 U Random Total Protein 16 H Ur Random Sodium 26.0 Urine Creatinine 200.66 Procedures Date of Service Date of Service: 11/04/23 Assessment & Plan Assessment and plan (1) MARIAN (acute kidney injury): Status: Acute (2) Anasarca: Status: Acute Plan MARIAN secondary to diuresis for treatment of anasarca diuretics have been held for 1 day (furosemide, spironolactone) recommend discontinuing IVF LR 50mg/hr start lasix 40mg BID (previously on 80mg BID) for edema management continue to restrict fluid, low salt diet follow electrolytes, I/O, BMP, replace K as needed daily weights Discussed with Dr Kruse Time Spent With Patient Time: Total time managing care of this patient today ____ minutes. Progress Note: Quality Stroke Does the patient have a stroke diagnosis?: No
--- NOTE | 2023-11-04 16:23 | HO.PM.IMPN ---
Subjective Subjective Date of Service: 11/05/23 Interval History: chf execerebation Review of Systems still sob with exceresion also had some chest pain over the late afternoon Physical Exam Vital Signs: Vital Signs: Last Vital Signs Temp 97.1 F 11/04/23 15:37 Pulse 76 11/04/23 15:37 Resp 20 11/04/23 15:37 BP 138/65 11/04/23 15:37 Pulse Ox 96 11/04/23 15:37 O2 Del Method Nasal Cannula 11/04/23 15:37 O2 Flow Rate 3 11/04/23 15:37 Oxygen Flow Rate 3 10/26/23 09:59 BMI result Body Mass Index 54.8 Appearance: Alert.? Oriented X3, on supplement oxygen cvs: rrr, [id number] , no murmur res: air enrty fair ,no rales or wheezing abd: no rebound or guarding ,nt, bs present. ext pulses present , no cyanosis,possible lymphedema , scrotal edema improving neuro: axo3 , nonfocal. Objective Data Active Medications Acetaminophen (Acetaminophen 325 Mg Tablet) 650 mg PO Q6H PRN PRN Reason: Pain, Mild (Pain Scale 1-3), fever or headache Last Admin: 11/01/23 14:04 Dose: 650 mg Documented By: SHEELA Albuterol Sulfate (Albuterol Sulfate 90 Mcg 8 Gm Inhaler) 2 puff INHALE Q6H PRN PRN Reason: for wheezing Amiodarone HCl (Amiodarone Hcl 200 Mg Tablet) 200 mg PO DAILY [facility] Last Admin: 11/04/23 09:28 Dose: 200 mg Documented By: JOSE Apixaban (Apixaban 5 Mg Tablet) 5 mg PO BID [facility] Last Admin: 11/04/23 09:28 Dose: 5 mg Documented By: JOSE Atorvastatin Calcium (Atorvastatin Calcium 80 Mg Tablet) 80 mg PO BEDTIME [facility] Last Admin: 11/03/23 20:20 Dose: 80 mg Documented By: JACQUES Benzonatate (Benzonatate 100 Mg Capsule) 100 mg PO TID PRN PRN Reason: Cough Calcium Carbonate (Calcium Carbonate 750 Mg Tab.Chew) 750 mg PO Q4H PRN PRN Reason: Heartburn Docusate Sodium (Docusate Sodium 100 Mg Capsule) 100 mg PO BID [facility] Last Admin: 11/04/23 11:15 Dose: 100 mg Documented By: JOSE Doxazosin Mesylate (Doxazosin Mesylate 2 Mg Tablet) 8 mg PO BEDTIME [facility]; Protocol Last Admin: 11/03/23 20:19 Dose: 8 mg Documented By: JACQUES Doxycycline Monohydrate (Doxycycline Monohydrate 100 Mg Capsule) 100 mg PO BID [facility] Last Admin: 11/04/23 09:28 Dose: 100 mg Documented By: JOSE Duloxetine HCl (Duloxetine Hcl 60 Mg Capsule.Dr) 60 mg PO DAILY [facility] Last Admin: 11/04/23 09:28 Dose: 60 mg Documented By: JOSE Empagliflozin (Empagliflozin 10 Mg Tablet) 10 mg PO DAILY [facility] Last Admin: 11/04/23 11:15 Dose: 10 mg Documented By: JOSE Finasteride (Finasteride 5 Mg Tablet) 5 mg PO DAILY [facility] Last Admin: 11/04/23 09:29 Dose: 5 mg Documented By: JOSE Fluticasone/Umeclidinium/Vilanterol (Fluticasone/Umeclidinium/Vilanterol 200/62.5/25 Blst.W.Dev) 1 puff INHALE RDAILY [facility] Last Admin: 11/04/23 08:07 Dose: 1 puff Documented By: BETI Furosemide (Furosemide 40 Mg Tablet) 40 mg PO BID@0900,1800 [facility]; Protocol Last Admin: 11/04/23 09:28 Dose: 40 mg Documented By: JOSE Lactic Acid (Ammonium Lactate 12 % Lotion 226 Gm Bottle) 1 appl TOPICAL BID [facility]; Protocol Last Admin: 11/04/23 09:33 Dose: 1 appl Documented By: JOSE Lactulose (Lactulose 20 Gm/30 Ml Solution) 20 gm PO BID [facility] Last Admin: 11/04/23 09:29 Dose: 20 gm Documented By: JOSE Magnesium Hydroxide (Milk Of Magnesia 30 Ml Oral.Susp) 30 ml PO DAILY PRN PRN Reason: Constipation Last Admin: 11/02/23 09:21 Dose: 30 ml Documented By: SHEELA Melatonin (Melatonin 3 Mg Tablet) 6 mg PO BEDTIME PRN PRN Reason: Insomnia Last Admin: 10/27/23 21:43 Dose: 6 mg Documented By: MEGHNA Methimazole (Methimazole 5 Mg Tablet) 5 mg PO DAILY [facility] Last Admin: 11/04/23 09:28 Dose: 5 mg Documented By: JOSE Ondansetron HCl (Ondansetron Hcl 4 Mg/2 Ml Vial) 4 mg IVPUSH Q8H PRN PRN Reason: Nausea and Vomiting Last Admin: 10/31/23 05:32 Dose: 4 mg Documented By: MARJ Oxybutynin Chloride (Oxybutynin Chloride Er 5 Mg Tab.Er.24) 10 mg PO DAILY [facility] Last Admin: 11/04/23 09:28 Dose: 10 mg Documented By: JOSE Polyethylene Glycol (Polyethylene Glycol 3350 17 Gm Powd.Pack) 17 gm PO DAILY [facility] Last Admin: 11/04/23 11:15 Dose: 17 gm Documented By: JOSE Pregabalin (Pregabalin 150 Mg Capsule) 150 mg PO TID [facility] Last Admin: 11/04/23 14:12 Dose: 150 mg Documented By: JOSE Psyllium Hydrophilic Mucilloid (Psyllium Seed 3.7 Gm Packet) 3.7 gm PO DAILY [facility] Last Admin: 11/04/23 09:28 Dose: 3.7 gm Documented By: JOSE Ropinirole HCl (Ropinirole Hcl 2 Mg Tablet) 2 mg PO TID [facility] Last Admin: 11/04/23 14:12 Dose: 2 mg Documented By: JOSE Sodium Biphosphate/Sodium Phosphate (Sodium Phosphate,[place]-Dibasic 133 Ml Enema) 133 ml [place] DAILY PRN PRN Reason: Constipation Last Admin: 10/29/23 22:16 Dose: 133 ml Documented By: MARJ Sodium Chloride (0.9 % Sodium Chloride Flush 3 Ml Syringe) 3 ml IVFLUSH QSHIFT [facility] Last Admin: 11/04/23 13:58 Dose: Not Given Documented By: JOSE Non-Admin Reason: Previously Administered Spironolactone (Spironolactone 25 Mg Tablet) 50 mg PO BID [facility]; Protocol Last Admin: 11/03/23 09:12 Dose: 50 mg Documented By: TD Keyes 10/26/23 10:20 11/05/23 05:39 Labs: Laboratory Results - last 24 hr 11/04/23 07:22 Anion Gap 12 Estim Creat Clear Calc 116.5 Estimated GFR > 60 Random Glucose 97 Calcium 9.2 D Magnesium 2.1 Assessment and Plan (1) Pulmonary edema: Status: Acute (2) Anasarca: Status: Acute (3) Scrotal swelling: Status: Acute (4) Hypokalemia: Status: Acute Plan 68-year-old male with a PMH significant for paroxysmal AFib on Eliquis and amiodarone, HFrEF, lymphedema with chronic venous stasis, HTN, COPD on 3L home O2, JEFFRY on CPAP, seronegative RA, HTN, overactive bladder, and obesity class 3 who presents to the ED for evaluation of abdominal and testicular swelling x3-4 weeks, worsening in the past few days. Admitted for anasarca with abd and significant scrotal swelling that has failed outpatient diuretic therapy. chest tightness seems atypical,reproducable ekg seems similar troponins neg d/w cardiology-follow up outpatient, no acute intervention. MARIAN --likely from overdiuresis improved with hold diuretics (lasix, aldacton3),gentle hydration ivf stopped. Anasarca, pulmonary edema d/t diastolic heart failure -todate negative 18.3 L started lasix and aldactone on jardiance Low-salt diet, fluid restriction Follow lytes, I/O, BMP, replace K as needed cardiology following Aggresive replacement of potassium echocardiogram 10/29, hyperdynamic heart with EF > 70 Scrotal cellulitis/edema -nearly resolved, continue Doxy for 10 days, started 10/25, ending 11/03 Acute Hypokalemia, d/t Lasix, K is normal, keep around 4 -replace as needed, dc scheduled K d/t renal failure, also hold aldactone Constipation--bowel regimen and enema PRN. HTN-controlled. Paroxysmal AFIB--rythm controlled with amio, eliquis for stroke prevention COPD Not in acute exacerbation Continue home 3L O2 Continue home inhalers Chronic venous stasis Follows with wound care clinic, last seen 2 days prior on 10/23 Rickie wraps daily Ammonium lactate h/o hypERthyroidism -methimazole Peripheral neuropathy Continue pregabalin overactive bladder -oxybutynin bph--proscar HLD--Lipitor mood disorder, dulexetine Mood disorder Continue home mood stabalizers Full Code DVT Prophylaxis: On Eliquis need for inpatient: heart failure and kidney failure management- need diuretics as well as close monitering of i/o ,renal fucnction /electrolytes . Quality Stroke Does the patient have a stroke diagnosis?: No VTE Prior VTE?: No VTE Risk Level:: Medical - moderate - high VTE Device Contraindication: Treatment Not Indicated VTE Drug Contraindication: N/A - Med Ordered
--- NOTE | 2023-11-04 17:03 | ECG_ITS ---
Test Reason : acute chest pain Blood Pressure : / mmHG Vent. Rate : 076 BPM Atrial Rate : 076 BPM P-R Int : 248 ms QRS Dur : 168 ms QT Int : 442 ms P-R-T Axes : 068 -28 022 degrees QTc Int : 497 ms Sinus rhythm with 1st degree A-V block with Premature atrial complexes with Aberrant conduction Right bundle branch block Abnormal ECG When compared with ECG of 07-JAN-2023 14:07, Aberrant conduction is now Present Referred By: Willie Harris Electronically Signed By:DICK RIVERA
[2023-11-04] MEDS: Calcium Carbonate 750 MG TAB.CHEW PO (17:49)
[2023-11-04] MEDS: Famotidine/PF 20 MG/2 ML VIAL IVPUSH (18:08)
[2023-11-04 18:56] LABS: Troponin-I High Sensitivity < 2.7 ng/L (<3.5-35.0)
[2023-11-04] MEDS: Doxazosin Mesylate 2 MG TABLET 8 MG PO (21:30)
[2023-11-04] MEDS: Atorvastatin Calcium 80 MG TABLET PO (21:31)
[2023-11-04] MEDS: 0.9 % Sodium Chloride Flush 3 ML SYRINGE IVFLUSH (23:10)
[2023-11-05] VITALS (8 sets, daily range): BP systolic 125–153; BP diastolic 62–79; PULSE 72–85; RESP 17–20; TEMP 36–36.6; O2SAT 95–96
[2023-11-05 06:34] LABS: Anion Gap 11 (12-20); Blood Urea Nitrogen 22 mg/dL (9-16); Calcium 9.2 mg/dL (8.4-10.2); Carbon Dioxide 27 mmol/L (22-29); Chloride 101 mmol/L (96-108); Creatinine Clr Calc Pharmacy 118.5; Estimated Glomerular Filt Rate > 60; Glucose Random 92 mg/dL (60-115); Magnesium 2.2 mg/dL (1.6-2.6); Potassium 4.4 mmol/L (3.3-5.1); Sodium 135 mmol/L (135-145)
[2023-11-05] MEDS: Fluticasone/Umeclidinium/Vilanterol 200/62.5/25 BLST.W.DEV 1 PUFF INHALE (07:55)
--- NOTE | 2023-11-05 09:19 | P.PNNP_ITS ---
Subjective Subjective Date of Service: 11/05/23 Principal diagnosis: Right heart failure Interval history: Has been treated for heart failure and fluid overload and had been on diuretics drip, transitioned to IV push developed MARIAN with diuresis, diuretics held for 1 day and renal function improved now back on lower dose of diuretics- Bumex 2mg PO daily. pt is feeling better overall, though still has some edema in extremities and scrotum that are uncomfortable Physical Exam 2 Vital Signs: Vital Signs: Last Vital Signs Temp 96.8 F 11/05/23 07:21 Pulse 76 11/05/23 07:56 Resp 18 11/05/23 07:56 BP 125/62 11/05/23 07:24 Pulse Ox 96 11/05/23 07:24 O2 Del Method Nasal Cannula 11/05/23 07:21 O2 Flow Rate 3 11/05/23 07:21 Oxygen Flow Rate 3 10/26/23 09:59 BMI result Body Mass Index 54.8 Const: General: comfortable Orientation/consciousness: patient oriented x3 Neck: Neck: Yes no JVD Resp: Auscultation: clear to auscultation bilaterally and no rales Cardio: Jugular venous distension: no JVD Palpation: no palpable S3 and no palpable S4 Heart sounds: no rubs GI: Palpation (GI): Soft to palpation and nontender : General: Yes no CVA tenderness Back/Spine/Pelvis: Back: no CVA tenderness Skin: General skin exam: no rashes or lesions noted Neuro: General: patient oriented x3 Extrem: General: Yes edema (bilateral lower extremity edema +2) Objective Data Labs 10/26/23 10:20 11/05/23 05:39 Labs: Laboratory Results - last 24 hr 11/04/23 11/05/23 18:08 05:39 Sodium 135 Potassium 4.4 Chloride 101 Carbon Dioxide 27 Anion Gap 11 L BUN 22 H Creatinine 1.16 Estim Creat Clear Calc 118.5 Estimated GFR > 60 Random Glucose 92 Calcium 9.2 Magnesium 2.2 Troponin I High Sens < 2.7 Procedures Date of Service Date of Service: 11/05/23 Assessment & Plan Assessment and plan (1) MARIAN (acute kidney injury): Status: Acute (2) Anasarca: Status: Acute Assessment and Plan: MARIAN secondary to diuresis for treatment of anasarca improving continue lasix 40mg BID (previously on 80mg BID) for edema management continue to restrict fluid, low salt diet follow electrolytes, I/O, BMP, replace K as needed daily weights Discussed with Dr Kruse Plan MARIAN secondary to diuresis for treatment of anasarca Continue Bumex 2mg PO daily Recommend recording daily weights and I&O continue to restrict fluid, low salt diet follow electrolytes, BMP, replace K as needed Discussed with Dr Kruse Time Spent With Patient Time: Total time managing care of this patient today ____ minutes. Progress Note: Quality Stroke Does the patient have a stroke diagnosis?: No
[2023-11-05] MEDS: Lactulose 20 GM/30 ML SOLUTION PO (09:46)
[2023-11-05] MEDS: oxyBUTYnin chloride ER 5 MG TAB.ER.24 10 MG PO (09:49)
[2023-11-05] MEDS: rOPINIRole HCL 2 MG TABLET PO (09:49)
[2023-11-05] MEDS: methIMAzole 5 MG TABLET PO (09:49)
[2023-11-05] MEDS: DULoxetine HCl 60 MG CAPSULE.DR PO (09:50)
[2023-11-05] MEDS: Doxycycline Monohydrate 100 MG CAPSULE PO (09:50)
[2023-11-05] MEDS: Amiodarone HCL 200 MG TABLET PO (09:50)
[2023-11-05] MEDS: Empagliflozin 10 MG TABLET PO (09:50)
[2023-11-05] MEDS: Bumetanide 1 MG TABLET 2 MG PO (09:50)
[2023-11-05] MEDS: Apixaban 5 MG TABLET PO (09:50)
[2023-11-05] MEDS: Finasteride 5 MG TABLET PO (09:50)
[2023-11-05] MEDS: Pregabalin 150 MG CAPSULE PO (09:50)
[2023-11-05] MEDS: 0.9 % Sodium Chloride Flush 3 ML SYRINGE IVFLUSH (09:51)
[2023-11-05] MEDS: Ammonium Lactate 12 % Lotion 226 GM BOTTLE 1 APPL TOPICAL (09:51)
--- NOTE | 2023-11-05 10:46 | W.MHC.F2F ---
Service Date Service Date: 11/05/23 Encounter Date of encounter: 11/05/23 Encounter: chf ,denae, sacrotal cellulitis Reasons for Services Signs and symptoms assessed: moniter leg edema ,weight ,sob or new symptoms Reason for chcf: medication management, medication treatment and teach disease management MD Overseeing Care: Diego Augustine Homebound: Leaving the home is medically contraindicated at this time without the asist of a device and/or another person due th the listed conditions above and below. Reason homebound: weakness related to hospital stay Homebound supporting statement: Patient is generalized weak has multiple comorbidities need help to go to appointments, disease management as well as lab draws. Certification: Based on the above findings, I certify that this patient is confined to the home and needs intermittent chcf care, physical therapy and/or speech therapy, or continues to need occupational therapy. The patient is under my care, and I have initiated the establishment of the plan of care. The patient will be followed by a physician who will periodically review the plan of care. Time Spent With Patient Time: Total time managing care of this patient today ____ minutes.
--- NOTE | 2023-11-05 10:53 | MHC.CM.PN ---
Second IMM given 11/04. Pt is medically cleared for discharge home with new [facility] services and resumption of [facility] home O2. Pts will transport him home.
--- NOTE | 2023-11-05 10:54 | PM.DS ---
DS: Providers Provider Date of Service: 11/05/23 Date of admission: 10/26/23 15:25 Date of discharge: 11/05/23 Primary care physician: TZE Mathis- Consults: 10/27/23 22:10 Consult to Wound Care Routine Reason for consultation: Bilateral Venous stasis - See's outpatient wound clinic 10/29/23 09:02 Consult to Cardiology Routine Consulting Provider: [facility] Reason for consultation: Heart failures Has provider been notified: Yes 11/03/23 08:29 Consult to Nephrology Routine Consulting Provider: [facility] Reason for consultation: Marian Attending physician on discharge: Willie Harris Discharging clinician: Willie Harris DS: Diagnosis Discharge Diagnosis (1) MARIAN (acute kidney injury): Status: Acute (2) Anasarca: Status: Acute DS: Summary Hospital Course Hospital Course: 68-year-old male with a PMH significant for paroxysmal AFib on Eliquis and amiodarone, HFrEF, lymphedema with chronic venous stasis, HTN, COPD on 3L home O2, JEFFRY on CPAP, seronegative RA, HTN, overactive bladder, and obesity class 3 who presents to the ED for evaluation of abdominal and testicular swelling x3-4 weeks, worsening in the past few days. Patient initially saw his PCP Dr. Augustine around 2 weeks ago who also coordinated care with Dr. Head in Urology. Patient's Lasix was increased from 40 mg p.o. daily to 40 mg b.i.d. to little effect. Patient then underwent a scrotal ultrasound on 10/16 which suggested scrotal skin thickening and subcutaneous edema possibly suggestive of cellulitis. Patient was started on doxycycline on 10/19. However, patient states 3-4 days ago scrotal swelling noticeably increased, especially in the last day when it was ?growing by the hour?. Patient called Dr. Head's office and was told him to come to the ED for further evaluation. Denies scrotal pain but having significant discomfort and scrotum feels very heavy . Pt has a hx of water retention, but denies ever experiencing similar symptoms of scrotal edema. Patient also complains of increased shortness of breath, difficulty walking, and MATUTE especially with stairs. Denies increased lower leg edema. Recently saw wound care clinic for lymphadema on 10/23. Denies fever, chills, nausea, vomiting, abdominal pain. No chest pain/pressure, palpitations. In the ED pt was tachypneic up to 24, initially hypertensive at 186/64 then was soft BP of 126/58. Labs were grossly unremarkable and around baseline for patient. No leukocytosis. Stable H&H. No significant electrolyte abnormalities. Renal and hepatic function baseline. BNP negative. Scrotal ultrasound on 10/17/2023 found extensive scrotal skin thickening and subcutaneous edema possibly suggestive of cellulitis; left testicle asymmetrically smaller and heterogeneous; and moderate to large bilateral hydroceles. UA negative for UTI. In the ED pt was treated with furosemide 100mg IV. Pt will be admitted to the hospital for treatment and further evaluation of anasarca with abd and significant scrotal swelling that has failed outpatient diuretic therapy. Hospital course: Patient with multiple comorbidities including AFib on Eliquis, history of heart failure with reduced EF, COPD on 3 L home oxygen, morbid obesity-came to the hospital because of anasarca including scrotal edema, leg edema: Patient was treated with IV diuretics Lasix and also Aldactone added-patient diuresed well and currently 18 L negative. His leg edema and scrotal edema improved significantly, ambulation also improved significantly as per the patient. Discussed with Cardiology-patient diuretics switched to Bumex 2 mg daily, also Jardiance added 10 mg daily Patient hospital course also had acute hypokalemia which replaced and improved.Patient needs to monitor renal function electrolytes outpatient. CHF education given, advised for close weight monitoring, monitoring for leg edema, if gains weight 2 lb or more in a week may need diuretic adjustment outpatient. Patient had episode of MARIAN --likely from overdiuresis, which improved with holding diuretics for day and hydration. follow up with nephrology outpatient ,needs to monitor renal function electrolytes outpatient. In addition patient was treated for sacral cellulitis-which seems to be improved, please stage doxycycline 100 mg p.o. b.i.d. for 1 more day. Constipation--bowel regimen. patient will go home with home vna ,consider outpatient pulm rehab. Patient is to follow up outpatient with the PCP, and cardiology may arrange their own appointment for further management outpatient. plan: As above. Bumex 2 mg daily, spironolactone 50 mg p.o. b.i.d., Jardiance 10 mg daily-added, stop Lasix on discharge. Continue doxycycline 100 mg p.o. b.i.d. for 1 more day. Constipation: Added laxatives-Colace, MiraLax, lactulose( please see dc instructions). Above management discussed with the patient detail length he understand in agreement with the above plan, time spent 40 minute. Time Attestation Total time managing care of this patient today: 40 mintues. Discharge Coordination Time (in mins): 40 min Quality: Safe Use of Opioids Does Pt have an Active Cancer Diagnosis on the Problem List?: No Quality: Stroke Does the patient have a stroke diagnosis?: No Physical Exam Vital Signs: Vital Signs: Last Vital Signs Temp 96.8 F 11/05/23 07:21 Pulse 76 11/05/23 07:56 Resp 18 11/05/23 07:56 BP 141/65 H 11/05/23 09:50 Pulse Ox 96 11/05/23 07:24 O2 Del Method Nasal Cannula 11/05/23 07:21 O2 Flow Rate 3 11/05/23 07:21 Oxygen Flow Rate 3 10/26/23 09:59 BMI result Body Mass Index 54.8 Appearance: Alert.? Oriented X3, on supplement oxygen cvs: rrr, [id number] , no murmur res: air enrty fair ,no rales or wheezing abd: no rebound or guarding ,nt, bs present. ext pulses present , no cyanosis,possible lymphedema , scrotal edema improving neuro: axo3 , nonfocal. DS: Data Data Completed and Pending Completed studies during hospitalization [Text1]: Procedures Assistance with Respiratory Ventilation, Less than 24 Consecutive Hours, Continuous Positive Airway Pressure (10/14/22) Introduction of Anesthetic Agent into Joints, Percutaneous Approach (10/14/22) Introduction of Anti-inflammatory into Joints, Percutaneous Approach (10/14/22) Introduction of Remdesivir Anti-infective into Peripheral Vein, Percutaneous Approach, [employer] 5 (05/16/20) Labs on day of discharge: Laboratory Results - last 24 hr 11/04/23 11/05/23 18:08 05:39 Sodium 135 Potassium 4.4 Chloride 101 Carbon Dioxide 27 Anion Gap 11 L BUN 22 H Creatinine 1.16 Estim Creat Clear Calc 118.5 Estimated GFR > 60 Random Glucose 92 Calcium 9.2 Magnesium 2.2 Troponin I High Sens < 2.7 Imaging Chest x-ray: Radiologist's impression: ITS Impressions Chest X-Ray 10/26/23 15:35 IMPRESSION: 1. Chronic regions of architectural distortion throughout both lungs. 2. Moderately increased reticular markings and mild prominence of the central pulmonary vasculature is nonspecific but may be seen in the setting of mild interstitial edema. No overt alveolar edema. No new dense focal consolidative process. Electronically signed by: Andre Ovalle DO 10/26/2023 04:16 PM EDT Discharge Plan Discharge Anticipated Discharge Date/Time: 11/05/23 10:23 Patient Disposition: Home Health Service Discharge Diagnosis: chf ,anasarca ,scrotal cellulitis Referrals: [facility] [Outside] - 1 Week [facility] [Outside] - 1 Week Sreedhar Kruse MD [Physician] - 1 Week Diego Augustine FNP- [Primary Care Provider] - 1 Week Discharge Medications: New lactulose 20 gram/30 mL Solution 20 g PO BID PRN (Reason: constipation) Qty: 200 0RF Jardiance 10 mg Tablet 10 mg PO DAILY Qty: 60 0RF bumetanide 1 mg Tablet 2 mg PO DAILY Qty: 120 0RF Protocol: Hold for SBP< HOLD for SBP < : 90 docusate sodium 100 mg Capsule 100 mg PO BID Qty: 30 0RF polyethylene glycol 3350 17 gram Powder In Packet 17 g PO DAILY PRN (Reason: constipation) Qty: 100 0RF Continued Anoro Ellipta 62.5-25 mcg/actuation blister with device 1 inh PO DAILY Qty: 60 3RF atorvastatin 80 mg tablet 80 mg PO BEDTIME 90 Days Qty: 90 1RF (DME) [facility] See [facility] Instructions .Route Qty: 1 0RF Rx Instructions: daily use (rolling sitting walker-bariatric size needed) duloxetine 60 mg capsule,delayed release(DR/EC) 60 mg PO DAILY Qty: 90 0RF ropinirole 2 mg tablet 2 mg PO TID 90 Days Qty: 270 0RF finasteride 5 mg tablet 5 mg PO DAILY 90 Days Qty: 90 1RF pregabalin 150 mg capsule 150 mg PO TID 90 Days Qty: 270 2RF methimazole 5 mg tablet 5 mg PO DAILY Qty: 90 1RF amiodarone 200 mg tablet 200 mg PO DAILY 90 Days Qty: 90 2RF oxycodone 5 mg tablet 5 mg PO BID PRN (Reason: pain) 8 Days Qty: 16 0RF Rx Instructions: Partial Fill upon patient request. Wegovy 0.25 mg/0.5 mL pen injector 0.25 mg subcut QWEEK Qty: 2 0RF Rx Instructions: administer weeks 1 through 4 of therapy doxazosin 8 mg tablet 8 mg PO BEDTIME 90 Days Qty: 90 1RF oxybutynin chloride 10 mg tablet extended release 24hr 10 mg PO DAILY 90 Days Qty: 90 1RF Actemra ACTPen 162 mg/0.9 mL pen injector 162 mg subcut SA@0900 albuterol sulfate 90 mcg/actuation HFA aerosol inhaler 2 puff PO Q6H PRN (Reason: for wheezing) Eliquis 5 mg tablet 5 mg PO BID Qty: 60 5RF doxycycline hyclate 100 mg tablet 100 mg PO BID 10 Days Qty: 2 0RF Rx Instructions: END DATE: 10/28/23 @2100 Changed spironolactone 25 mg tablet 50 mg PO BID Qty: 120 0RF Discontinued furosemide [Lasix] 40 mg tablet 40 mg PO DAILY Qty: 90 3RF Discharge Orders: Discharge Order (Routine); Ordered 11/05/23 Ordered By: Willie Harris Diet: Advance to usual diet Activity on Discharge: As tolerated Stand Alone Forms: Patient Portal Discharge page Print Language: South Sudanese Other Ambulatory Orders: Basic Metabolic Panel (Routine) Timeframe: 1 Week Facility: [facility] - Location: Laboratory Ordered By: Willie Harris Care Plan Goals: Patient with multiple comorbidities including AFib on Eliquis, history of heart failure with reduced EF, COPD on 3 L home oxygen, morbid obesity-came to the hospital because of anasarca including scrotal edema, leg edema: Patient was treated with IV diuretics Lasix and also Aldactone added-patient diuresed well and currently 18 L negative. His leg edema and scrotal edema improved significantly, ambulation also improved significantly as per the patient. Discussed with Cardiology-patient diuretics switched to Bumex 2 mg daily, also Jardiance added 10 mg daily Patient hospital course also had acute hypokalemia which replaced and improved.Patient needs to monitor renal function electrolytes outpatient. CHF education given, advised for close weight monitoring, monitoring for leg edema, if gains weight 2 lb or more in a week may need diuretic adjustment outpatient. Patient had episode of MARIAN --likely from overdiuresis, which improved with holding diuretics for day and hydration. follow up with nephrology outpatient ,needs to monitor renal function electrolytes outpatient. In addition patient was treated for sacral cellulitis-which seems to be improved, please stage doxycycline 100 mg p.o. b.i.d. for 1 more day. Constipation--bowel regimen. patient will go home with home vna ,consider outpatient pulm rehab. Patient is to follow up outpatient with the PCP, and cardiology may arrange their own appointment for further management outpatient. Health Concerns: As above. Bumex 2 mg daily, spironolactone 50 mg p.o. b.i.d., Jardiance 10 mg daily-added, stop Lasix on discharge. Continue doxycycline 100 mg p.o. b.i.d. for 1 more day. Constipation: Added laxatives-Colace, MiraLax, lactulose( please see dc instructions). Plan of Treatment: As above. Assessment: As above.
== END 2023-11-05 12:00 | disposition home health service (06) | DRG 291 ==
LOC: HO.ED 13:48 → HO.EDOVER 16:26 → HO.IMC 10-27 19:58
PROVIDERS: Internal Medicine; Internal Medicine Hypertension Specialist; Physician Assistant Medical; Student in an Organized Health Care Education/Training Program; Admitting Provider Student in an Organized Health Care Education/Training Program; Emergency Provider Emergency Medicine Emergency Medical Services; PCP Nurse Practitioner Family; Visit Provider Internal Medicine
DX: I11.0 Hypertensive heart disease with heart failure (principal); I50.43 Acute on chronic combined systolic (congestive) and diastolic (congestive) heart failure; J96.11 Chronic respiratory failure with hypoxia; Z68.43 Body mass index [BMI] 50.0-59.9, adult; N17.9 Acute kidney failure, unspecified; N49.2 Inflammatory disorders of scrotum; K59.00 Constipation, unspecified; I50.813 Acute on chronic right heart failure; E87.6 Hypokalemia; E78.5 Hyperlipidemia, unspecified; F39 Unspecified mood [affective] disorder; E05.90 Thyrotoxicosis, unspecified without thyrotoxic crisis or storm; N40.0 Benign prostatic hyperplasia without lower urinary tract symptoms; I87.8 Other specified disorders of veins; N32.81 Overactive bladder; E66.01 Morbid (severe) obesity due to excess calories; J44.9 Chronic obstructive pulmonary disease, unspecified; Z71.3 Dietary counseling and surveillance; G62.9 Polyneuropathy, unspecified; G47.33 Obstructive sleep apnea (adult) (pediatric); Z99.81 Dependence on supplemental oxygen; I48.0 Paroxysmal atrial fibrillation; Z87.891 Personal history of nicotine dependence; Z79.01 Long term (current) use of anticoagulants; Z79.899 Other long term (current) drug therapy
CPT/HCPCS: 36415; 71046; 76775; 80048; 80051; 80076; 81001; 81003; 82570; 83735; 83880; 84156; 84300; 84484; 85025; 93005; 93306; 94660; 97116; 97162; 99285; C1758; J1940; J2405; J3480; J7120; Q9957

== ENCOUNTER 2023-10-26 15:25 | Outpatient (BNV) | payer MEDICARE, SELFPAY | END 2023-10-30 07:00 | PROVIDERS: Admitting Provider Student in an Organized Health Care Education/Training Program; Emergency Provider Emergency Medicine Emergency Medical Services; PCP Nurse Practitioner Family; Visit Provider Internal Medicine Cardiovascular Disease | DX: I50.810 Right heart failure, unspecified (principal); R93.1 Abnormal findings on diagnostic imaging of heart and coronary circulation | CPT/HCPCS: 93306 ==

== ENCOUNTER → 2023-10-26 15:25 | Outpatient (BNV) | payer MEDICARE, SELFPAY | PROVIDERS: Admitting Provider Student in an Organized Health Care Education/Training Program; Emergency Provider Emergency Medicine Emergency Medical Services; PCP Nurse Practitioner Family; Visit Provider Nurse Practitioner Family | DX: N17.9 Acute kidney failure, unspecified (principal); R60.1 Generalized edema | CPT/HCPCS: 99222; 99232 ==

== ENCOUNTER → 2023-10-26 15:25 | Outpatient (BNV) | payer MEDICARE, SELFPAY | PROVIDERS: Admitting Provider Student in an Organized Health Care Education/Training Program; Emergency Provider Emergency Medicine Emergency Medical Services; PCP Nurse Practitioner Family; Visit Provider Student in an Organized Health Care Education/Training Program | DX: J81.1 Chronic pulmonary edema (principal); N50.89 Other specified disorders of the male genital organs | CPT/HCPCS: 99223; 99231; 99232; 99233; 99239; G0180 ==

== ENCOUNTER → 2023-10-26 15:25 | Outpatient (BNV) | payer MEDICARE, SELFPAY | PROVIDERS: Admitting Provider Student in an Organized Health Care Education/Training Program; Emergency Provider Emergency Medicine Emergency Medical Services; PCP Nurse Practitioner Family; Visit Provider Internal Medicine Cardiovascular Disease | DX: I50.9 Heart failure, unspecified (principal); I48.0 Paroxysmal atrial fibrillation | CPT/HCPCS: 99223; 99233 ==

== ENCOUNTER 2023-11-13 09:29 | Outpatient (REF) | payer MEDICARE, SELFPAY ==
[2023-11-13 14:02] LABS: Anion Gap 14 (12-20); Blood Urea Nitrogen 21 mg/dL (9-16); Calcium 9.6 mg/dL (8.4-10.2); Carbon Dioxide 26 mmol/L (22-29); Chloride 103 mmol/L (96-108); Estimated Glomerular Filt Rate > 60; Glucose Random 94 mg/dL (60-115); Potassium 3.8 mmol/L (3.3-5.1); Sodium 139 mmol/L (135-145)
== END 2023-11-13 09:30 | disposition home or self-care (01) ==
LOC: HO.HMGCLDS 09:29
PROVIDERS: PCP Nurse Practitioner Family; Referring Provider Internal Medicine; Visit Provider Internal Medicine Cardiovascular Disease
DX: I48.0 Paroxysmal atrial fibrillation (principal); I50.9 Heart failure, unspecified
CPT/HCPCS: 36415; 80048

== ENCOUNTER 2023-11-14 13:32 | Outpatient (AMB) | payer MEDICARE, SELFPAY ==
--- NOTE | 2023-11-14 13:56 | A.OFFVIS_ITS ---
Vital Signs 11/14/23 13:57 Height 6 ft 4 in Weight 445 lb 5.34 oz BMI 54.2 BP 120/68 Blood Pressure Location Lt brachial Position Sitting Pulse 75 Pulse Source Monitor Intake Visit Reasons: 10 day f/up labs Allergies No Known Allergies [No Known Allergies*] Allergy (Verified 10/26/23 10:02) Medication List - Last Reconciled 11/14/23 by CARMITA Lee albuterol sulfate 90 mcg/actuation 2 puffs PO Q6H PRN amiodarone 200 mg PO DAILY 90 days Anoro Ellipta 62.5-25 mcg/actuation (umeclidinium-vilanterol) 1 inh PO DAILY NS apixaban (Eliquis) 5 mg PO BID atorvastatin 80 mg PO BEDTIME 90 days bumetanide 2 mg See Protocol PO DAILY docusate sodium 100 mg PO BID PRN doxazosin 8 mg PO BEDTIME 90 days duloxetine 60 mg PO DAILY empagliflozin (Jardiance) 10 mg PO DAILY finasteride 5 mg PO DAILY 90 days lactulose 20 grams (30 mL) PO BID PRN methimazole 5 mg PO DAILY oxybutynin chloride ER 10 mg PO DAILY 90 days oxycodone 5 mg PO BID PRN 8 days pregabalin 150 mg PO TID 90 days ropinirole 2 mg PO TID 90 days semaglutide (weight loss) (Wegovy) 0.25 mg (0.5 mL) subcut QWEEK spironolactone 50 mg (2 x 25 mg) PO BID tocilizumab (Actemra ACTPen) 162 mg subcut SA@0900 walker daily use (rolling sitting walker-bariatric size needed) HPI HPI 10 day f/up labs: Details: Dinh Moore) is a 68-year-old male with past medical history of morbid obesity, obstructive sleep apnea with CPAP use, COPD on home O2, atrial fibrillation. He did undergo an unsuccessful cardioversion on 11/29/2022 and was started on amiodarone. Once fully loaded he underwent a repeat cardioversion on 01/07/2023 with successful conversion to sinus rhythm. He has not had known recurrent AFib since that time. Was recently admitted to [facility] with increasing scrotal edema. He was treated for right-sided heart failure. Was diuresed 18 L and sent home with Bumex 2 mg daily. Jardiance was added. He now presents for follow-up. Today he reports that he has been okay since his hospital discharge. He feels that his condition is slowly but gradually improving. He does have shortness of breath with walking which is not new. He is pleased with the degree of mild edema that he has currently. He says his legs have not looked this good in a long time. He is still using his wheeling walker/seat. He has been trying to increasing his physical activity but reports issues with knee pains. No reports of chest discomfort at rest or with activity. No heart palpitations like he had with AFib. No lightheadedness, presyncope, syncope, falls. He is denying PND, orthopnea. He currently has no open wound on his lower leg. Wears light compression stockings. Taking all meds as directed. No bleeding issues reported. Compliant with CPAP each night. [facility] Medical History Congestive heart failure Testicular swelling Osteoarthritis of right knee Melanoma History of cardioversion Hereditary lymphedema Venous insufficiency Morbid obesity Lymphedema COPD (chronic obstructive pulmonary disease) Sensory neuropathy COVID-19 Respiratory failure with hypoxia Restrictive lung disease COPD (chronic obstructive pulmonary disease) JEFFRY on CPAP MATUTE (dyspnea on exertion) Chronic cystitis Bladder outlet obstruction Restless leg syndrome Traumatic complete tear of right rotator cuff Injury of right rotator cuff History of diverticulitis History of umbilical hernia Surgical History Hx of colonoscopy History of appendectomy History of arthroscopy of left knee Family History Father Arthritis Diabetes Mother Arthritis Kidney stones Family/Other Arthritis Sister No problems noted. Sister No problems noted. Son No problems noted. Social History Household Members: Spouse Household Members Other:: Floridalma Housing: Condominium Do you presently have visiting nurse or other home services: No Alcohol intake: current Alcohol intake frequency: 0-2 drinks per day Alcohol type: beer Comment: refusing bed alarm Patient Tobacco Use Status: Former Tobacco user Tobacco use type: Cigarette Cigarette Packs Per Day: 1 Cigarettes Per Day: 20.0 Years Smoked: 30 years e-Cigarette/Vaping Use: Never Used Second Hand Smoke Exposure: No Substance Use Type: Marijuana Advance Directives Date on File: 05/16/20 service: No Current occupational status: retired 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 Cognitive needs: No Hearing needs: No Vision needs: No Review of Systems Const All systems reviewed & are unremarkable except as noted in HPI and below Denies weakness ENT Denies dizziness Card Denies chest pain, Denies chest pain with activity, Denies syncope, Denies rapid heart rate, Denies pedal edema, Denies edema, Reports leg edema, Denies lightheadedness, Denies palpitations, Reports dyspnea, Reports dyspnea on exertion and Denies orthopnea Resp Denies cough, Reports dyspnea and Reports dyspnea on exertion GI Denies hematochezia and Denies change in stool character Musc Details: knee pains Reports abnormal gait, Denies muscle cramps, Denies muscle weakness, Denies numbness, Denies radiating pain into limb and Denies tingling Neuro Reports abnormal gait, Denies dizziness, Denies syncope, Denies numbness, Denies tingling and Denies weakness Endo Denies palpitations Physical Exam Vital Signs: Last Vital Signs Pulse 75 11/14/23 13:57 BP 120/68 11/14/23 13:57 BMI result Body Mass Index 54.2 Const General: cooperative, comfortable and no acute distress Orientation/consciousness: patient oriented x3 Resp Effort & Inspection: normal respiratory effort Auscultation: clear to auscultation bilaterally, no rales, no rhonchi and no wheezes Cardio Rate: regular rate Rhythm: regular rhythm Heart sounds: S1 normal heart sound present, S2 normal heart sound present, no murmurs and no rubs Peripheral pulses: Peripheral pulses 2+ throughout Neuro General: patient oriented x3 Extrem Other: nonpitting edema in lower extremeties General: No no pedal edema and No calf tenderness Psych Appearance: grossly normal Mental Status: mental status grossly normal Speech and movement: Normal speech and movement present Office Procedures EKG Details: Today, read by me, SR, with SA, RBBB, rate 75, JT index 108. [id number], Complete Assessment & Plan Assessment & Plan (1) Congestive heart failure: Comment: continue all meds as prescribed, INCLUDING LASIX Code(s): I50.9 - Heart failure, unspecified Category: Medical Qualifiers: Heart failure type: combined systolic and diastolic Plan: History of Congestive heart failure. Heart failure with preserved EF. Recent [facility] [place] for decompensated heart failure. Echocardiogram showed EF greater than 70%, mildly increased RV cavity size, normal RV systolic function. He was diuresed with IV Lasix,-18 L. Upon discharge she was sent home with Bumex 2 mg daily. He continues to have some shortness of breath with activity which is not new for him. He has significant morbid obesity which contributes. His weight is down 25 lb compared to 1 month ago. On exam he has diminished but clear lung sounds. He does have chronic lower leg edema which currently he is reporting as being good. Bumex 2 mg daily. Informed him he can take an extra Bumex tablet occasionally for increased shortness of breath or edema. Reviewed home weight monitoring. Follow fluid restriction, less than 48 oz daily and low-salt diet, less than 2 g daily. Labs done on 11/13/2023 showed potassium 3.8, creatinine 1.11. Signs and symptoms of heart failure reviewed with him. Cardiology follow-up 3-4 months, sooner if needed. Patient is able to portal message me if he has immediate questions or concerns. (2) A-fib: Code(s): I48.91 - Unspecified atrial fibrillation Category: Medical Qualifiers: Atrial fibrillation type: persistent (not longstanding) Qualified Code(s): I48.19 - Other persistent atrial fibrillation Plan: Newer finding of atrial fibrillation- when he presented to [facility] 10/13/22 for shortness of breath. He was treated with heart rate control and Eliquis for anticoagulation. He continued to have persistent AFib. Echocardiogram 10/10/2022 showed EF 40-50%, no valve abnormalities. Holter monitor done 10/10/2022 for 3 days shows atrial fib, rate 86, PVCs 1.3% of time. He underwent a cardioversion on 11/29/2022 which was unsuccessful. He was started on an amiodarone load then underwent a repeat cardioversion on 01/07/2023 with successful conversion to sinus rhythm. He has not had any known recurrent atrial fibrillation since that time. An EKG done today is showing sinus rhythm with sinus arrhythmia, right bundle branch block, rate 75. Labs done on 10/17/2023 showed TSH 1.65, AST 28, ALT 38. Will have him continue with amiodarone. Going forward will need to consider alternate antiarrhythmic therapy versus referral to EP for possible ablation. 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 Continue Eliquis for anticoagulation. (3) Morbid obesity: Code(s): E66.01 - Morbid (severe) obesity due to excess calories Category: Medical Plan: Weight loss would be beneficial for his overall health. He is aware of this and states he is trying. (4) JEFFRY on CPAP: Comment: KNOWN TO HAVE OBSTRUCTIVE SLEEP APNEA. USES CPAP REGULARLY AND HAS BEEN VERY COMPLIANT AND BENEFITTING. CURRENTLY USING OXYGEN 2 L/MT ALONG WITH CPAP AT NIGHTTIME. NEEDS A NEW CPAP MACHINE AND WE WILL BE WORKING ON THAT. HE MAY NEED A NEW SLEEP STUDY FOR CONFIRMATION. Code(s): G47.33 - Obstructive sleep apnea (adult) (pediatric); Z99.89 - Dependence on other enabling machines and devices Category: Medical Plan: Compliant with his CPAP each night (5) On amiodarone therapy: Code(s): Z79.899 - Other mcfp (current) drug therapy Category: Medical Plan: As above. No evidence of toxicity at this time (6) Hospital discharge follow-up: Code(s): Z09 - Encounter for follow-up examination after completed treatment for conditions other than malignant neoplasm Category: Medical Plan: As above Plan Time spent on chart review, documentation, interview and assessment Medications: Changed From docusate sodium 100 mg PO BID 30 caps 0RF constipation To docusate sodium 100 mg PO BID PRN constipation Coding Level of Care Code Est Pt Level 4 (69375) Diagnoses Congestive heart failure I50.9 Heart failure type: combined systolic and diastolic Persistent atrial fibrillation I48.19 Atrial fibrillation type: persistent (not longstanding) Morbid obesity E66.01 JEFFRY on CPAP G47.33; Z99.89 On amiodarone therapy Z79.899 Hospital discharge follow-up Z09 CPT Codes EKG - CPT: [id number], Complete ([id number]) Time Spent (min) 30
[2023-11-14 13:57] VITALS: BP 120/68; PULSE 75; BMI 54.2
== END 2023-11-14 14:45 | disposition home or self-care (01) ==
PROVIDERS: PCP Nurse Practitioner Family; Visit Provider Nurse Practitioner Family
DX: I50.9 Heart failure, unspecified (principal); I48.19 Other persistent atrial fibrillation; E66.01 Morbid (severe) obesity due to excess calories; G47.33 Obstructive sleep apnea (adult) (pediatric); Z99.89 Dependence on other enabling machines and devices; Z79.899 Other long term (current) drug therapy; Z09 Encounter for follow-up examination after completed treatment for conditions other than malignant neoplasm
CPT/HCPCS: 93010; 99214

== ENCOUNTER → 2023-11-14 13:32 | Outpatient (BNVA) | payer MEDICARE, SELFPAY | PROVIDERS: PCP Nurse Practitioner Family; Visit Provider Nurse Practitioner Family | DX: Z09 Encounter for follow-up examination after completed treatment for conditions other than malignant neoplasm (principal); I50.9 Heart failure, unspecified; I48.19 Other persistent atrial fibrillation; E66.01 Morbid (severe) obesity due to excess calories; G47.33 Obstructive sleep apnea (adult) (pediatric); Z99.89 Dependence on other enabling machines and devices; Z79.899 Other long term (current) drug therapy; Z68.43 Body mass index [BMI] 50.0-59.9, adult | CPT/HCPCS: 93005; 99212 ==

== ENCOUNTER 2023-11-17 13:41 | Outpatient (AMB) | payer MEDICARE, SELFPAY ==
--- NOTE | 2023-11-17 13:43 | HO.NEPHOV_ITS ---
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 Accompanied by: Self / Same As Patient Allergies No Known Allergies [No Known Allergies*] Allergy (Verified 11/17/23 14:33) Medication List - Last Reconciled 11/17/23 by Sreedhar Kruse MD albuterol sulfate 90 mcg/actuation 2 puffs PO Q6H PRN amiodarone 200 mg PO DAILY 90 days Anoro Ellipta 62.5-25 mcg/actuation (umeclidinium-vilanterol) 1 inh PO DAILY NS apixaban (Eliquis) 5 mg PO BID atorvastatin 80 mg PO BEDTIME 90 days bumetanide 2 mg See Protocol PO DAILY docusate sodium 100 mg PO BID PRN doxazosin 8 mg PO BEDTIME 90 days duloxetine 60 mg PO DAILY empagliflozin (Jardiance) 10 mg PO DAILY finasteride 5 mg PO DAILY 90 days lactulose 20 grams (30 mL) PO BID PRN methimazole 5 mg PO DAILY oxybutynin chloride ER 10 mg PO DAILY 90 days oxycodone 5 mg PO BID PRN 8 days pregabalin 150 mg PO TID 90 days ropinirole 2 mg PO TID 90 days spironolactone 50 mg (2 x 25 mg) PO BID tocilizumab (Actemra ACTPen) 162 mg subcut SA@0900 walker daily use (rolling sitting walker-bariatric size needed) HPI Comments Details: 68-year-old male with significant h/o paroxysmal AFib on Eliquis and amiodarone, HFrEF, lymphedema with chronic venous stasis, HTN, COPD on 3L home O2, JEFFRY on CPAP, seronegative RA, HTN, overactive bladder, and obesity class 3 who presents to the ED for evaluation of abdominal and testicular swelling x3-4 weeks, worsening in the past few days During the hospital stay he received IV Lasix and developed acute kidney injury with a creatinine peaking at 2.4. Diuretics were held for few days and renal function improved. Diuretics were started at a lower dose. He has continued lose weight. Serum creatinine is back to baseline. He is here for follow-up [facility] Medical History Congestive heart failure Testicular swelling Osteoarthritis of right knee Melanoma History of cardioversion Hereditary lymphedema Venous insufficiency Morbid obesity Lymphedema COPD (chronic obstructive pulmonary disease) Sensory neuropathy COVID-19 Respiratory failure with hypoxia Restrictive lung disease COPD (chronic obstructive pulmonary disease) JEFFRY on CPAP MATUTE (dyspnea on exertion) Chronic cystitis Bladder outlet obstruction Restless leg syndrome Traumatic complete tear of right rotator cuff Injury of right rotator cuff History of diverticulitis History of umbilical hernia Surgical History Hx of colonoscopy History of appendectomy History of arthroscopy of left knee Family History Father Arthritis Diabetes Mother Arthritis Kidney stones Family/Other Arthritis Sister No problems noted. Sister No problems noted. Son No problems noted. Social History Household Members: Spouse Household Members Other:: Floridalma [facility] Do you presently have visiting nurse or other home services: No Alcohol intake: current Alcohol intake frequency: 0-2 drinks per day Alcohol type: beer Comment: refusing bed alarm Patient Tobacco Use Status: Former Tobacco user Tobacco use type: Cigarette Cigarette Packs Per Day: 1 Cigarettes Per Day: 20.0 Years Smoked: 30 years e-Cigarette/Vaping Use: Never Used Second Hand Smoke Exposure: No Substance Use Type: Marijuana Advance Directives Date on File: 05/16/20 service: No Current occupational status: retired 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0) 10/26/23 WBC 5.8 X10*3/uL (4.8-10.8) 10/26/23 Plt Count 231 X10*3/uL (160-400) 10/26/23 Sodium 139 mmol/L (135-145) 11/13/23 Potassium 3.8 mmol/L (3.3-5.1) 11/13/23 Chloride 103 mmol/L (96-108) 11/13/23 Carbon Dioxide 26 mmol/L (22-29) 11/13/23 BUN 21 mg/dL (9-16) H 11/13/23 Creatinine 1.11 mg/dL (0.5-1.4) 11/13/23 Calcium 9.6 mg/dL (8.4-10.2) 11/13/23 Urine Protein Trace mg/dL (Neg-Trace) 11/03/23 Urine Creatinine 200.66 mg/dL 11/03/23 Renal US 11/03/23 Assessment & Plan Assessment & Plan (1) MARIAN (acute kidney injury): Code(s): N17.9 - Acute kidney failure, unspecified Category: Medical Plan MARIAN due to hypoperfusion has resolved. Renal function is back to baseline. No significant proteinuria Blood pressure is optimal. Dinh a significant edema with fluid overload. He also has underlying lymphedema in the legs. For now he should stay on a low-sodium diet Continue with current dose of diuretics. Goal is to lose about 1-2 lb every day. I would certainly avoid aggressive diuresis due to the risk of precipitating acute kidney injury again. Orders: Orders Basic Metabolic Panel 11/17/23 N17.9 - Acute kidney failure, unspecified Medications: Refilled bumetanide 2 mg See Protocol PO DAILY 120 tabs 0RF Coding Level of Care Code Est Pt Level 4 (92938) Diagnoses MARIAN (acute kidney injury) N17.9
[2023-11-17 13:44] VITALS: BP 110/72; PULSE 97; O2SAT 95; BMI 54.5
== END 2023-11-17 14:09 | disposition home or self-care (01) ==
PROVIDERS: PCP Nurse Practitioner Family; Visit Provider Internal Medicine Hypertension Specialist
DX: N17.9 Acute kidney failure, unspecified (principal)
CPT/HCPCS: 99214

== ENCOUNTER → 2023-11-17 13:41 | Outpatient (BNVA) | payer MEDICARE, SELFPAY | PROVIDERS: PCP Nurse Practitioner Family; Visit Provider Internal Medicine Hypertension Specialist | DX: R79.89 Other specified abnormal findings of blood chemistry (principal); N17.9 Acute kidney failure, unspecified | CPT/HCPCS: 99212 ==

== ENCOUNTER 2023-11-17 14:16 | Outpatient (AMB) | payer MEDICARE, SELFPAY ==
--- NOTE | 2023-11-17 14:17 | MHC.OFFVIS ---
Vital Signs 11/17/23 14:33 Height 6 ft 4 in Weight 448 lb BMI 54.5 BP 116/70 Blood Pressure Location Rt radial Position Sitting Pulse 77 Pulse Source Pulse Oximeter Intake Visit Reasons: Hyperthyroidism/ LVM Intake Note: Patient present today for Hyperthyroidism follow up. 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 Was initially diagnosed with hyperthyroidism. Currently denies any dysphagia but hoarseness of voice. Denies sensation of swelling in the neck or difficulty breathing while lying flat. Denies any tenderness in the neck. Denies any palpitations, but had tremors, weight loss of 35 lbs intentionally has stabilized , no frequent bowel movements. Only complaint is waking up after 5 hours of sleep at not being able to fall back to sleep Denies any ocular complaints, blurred or double vision. c/o hair loss, dry skin, no heat intolerance at nights no cold intolerance, no weight gain, no confusion. Denies any history of head or neck irradiation. Denies any family history of thyroid cancer. Strong family hx of thyroid problems Does not take Biotin Thyroid US: Labs: Evaluation showed the presence of Graves disease. Patient is currently on methimazole 5 mg q.d. no symptoms of hypothyroidism hyperthyroid PFSH Medical History Congestive heart failure Testicular swelling Osteoarthritis of right knee Melanoma History of cardioversion Hereditary lymphedema Venous insufficiency Morbid obesity Lymphedema COPD (chronic obstructive pulmonary disease) Sensory neuropathy COVID-19 Respiratory failure with hypoxia Restrictive lung disease COPD (chronic obstructive pulmonary disease) JEFFRY on CPAP MATUTE (dyspnea on exertion) Chronic cystitis Bladder outlet obstruction Restless leg syndrome Traumatic complete tear of right rotator cuff Injury of right rotator cuff History of diverticulitis History of umbilical hernia Surgical History Hx of colonoscopy History of appendectomy History of arthroscopy of left knee Family History Father Arthritis Diabetes Mother Arthritis Kidney stones Family/Other Arthritis Sister No problems noted. Sister No problems noted. Son No problems noted. Social History Household Members: Spouse Household Members Other:: Floridalma Housing: Condominium Do you presently have visiting nurse or other home services: No Alcohol intake: current Alcohol intake frequency: 0-2 drinks per day Alcohol type: beer Comment: refusing bed alarm Patient Tobacco Use Status: Former Tobacco user Tobacco use type: Cigarette Cigarette Packs Per Day: 1 Cigarettes Per Day: 20.0 Years Smoked: 30 years e-Cigarette/Vaping Use: Never Used Second Hand Smoke Exposure: No Substance Use Type: Marijuana Advance Directives Date on File: 05/16/20 service: No Current occupational status: retired 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 Thyroid gland measure 15 gms . No nodules or tenderness palpated. There is no cervical adenopathy palpated. Lungs CTA. Heart S1, S2 Reg R/R -M/R/G. Abdominal exam benign. Skin exam reveals absence of dryness or thyroid dermopathy or vitiligo. Nail exam reveals absence of thyroid acropachy or oncholysis. Neurologic exam reveals 2+ reflexes . Muscle Strength is 5/5 proximally. There are no tremors in upper extremities. Assessment & Plan Assessment & Plan (1) Low TSH level: Code(s): R79.89 - Other specified abnormal findings of blood chemistry Category: Medical Plan: This is a 66-year-old white male with a history of hyperthyroidism due to Graves disease. He is currently being treated with methimazole 5 mg q.d.. He appears to be clinically and biochemically euthyroid Plan is to continue the methimazole to 5 mg q.d.. Once again, I went over side effects of methimazole including but not limited to liver toxicity and agranulocytosis and also went over of the definitive therapy including use of radioactive iodine and surgery. He is opting to stay on the methimazole currently. Will check TRAB antibodies and if negative could consider holding methimazole to see if patient is remission Orders: Orders Triiodothyronine T3 Free 5 Months - Other specified abnormal findings of blood chemistry Free T4 (Free Thyroxine) 5 Months - Other specified abnormal findings of blood chemistry Liver Panel 5 Months - Other specified abnormal findings of blood chemistry Thyrotropin Receptor Antibody Today - Other specified abnormal findings of blood chemistry Thyroid Stimulating Hormone 5 Months - Other specified abnormal findings of blood chemistry Coding Level of Care Code Est Pt Level 3 (57179) Diagnoses Low TSH level
[2023-11-17 14:33] VITALS: BP 116/70; PULSE 77; BMI 54.5
== END 2023-11-17 15:28 | disposition home or self-care (01) ==
PROVIDERS: PCP Nurse Practitioner Family; Visit Provider Internal Medicine Endocrinology, Diabetes & Metabolism
DX: R79.89 Other specified abnormal findings of blood chemistry (principal)
CPT/HCPCS: 99213

== ENCOUNTER 2023-11-19 11:32 | Outpatient (REF) | payer MEDICARE, SELFPAY ==
[2023-11-23 17:43] LABS: Thyrotropin Receptor Antibody <1.00 IU/L (<=2.00)
== END 2023-11-19 11:33 | disposition home or self-care (01) ==
LOC: HO.HMGCLDS 11:32
PROVIDERS: PCP Nurse Practitioner Family; Visit Provider Internal Medicine Endocrinology, Diabetes & Metabolism
DX: R79.89 Other specified abnormal findings of blood chemistry (principal)
CPT/HCPCS: 36415; 83520

== ENCOUNTER 2023-11-20 10:52 | Outpatient (AMB) | payer MEDICARE, SELFPAY ==
[2023-11-20 11:18] VITALS: BMI 54.5
--- NOTE | 2023-11-20 11:18 | A.OFFVIS_ITS ---
Vital Signs 11/20/23 11:18 Height 6 ft 4 in Weight 448 lb BMI 54.5 Intake Visit Reasons: Follow up [facility] 09/11/23 Intake Note: follow up [facility] 09/11/23for LE swelling Accompanied by: Self / Same As Patient Allergies No Known Allergies [No Known Allergies*] Allergy (Verified 11/20/23 11:20) HPI HPI Follow up [facility] 09/11/23: Details: Very pleasant 68-year-old gentleman presents for routine follow-up regarding nonhealing lower extremity ulcers. Been treated previously for venous disease and significantly swollen legs. He now presents for follow-up with venous insufficiency testing. Of note he is wearing CircAid stockings and reports that the wounds have improved significantly. He is using Amlactin to help heal with the wounds. Of note, he had a recent hospitalization for Congestive heart failure exacerbation. He also has a history of heart failure with reduced ejection fraction COPD and significant morbid obesity. At the current time he does have a BMI of nearly 55. [facility] Medical History Congestive heart failure Testicular swelling Osteoarthritis of right knee Melanoma History of cardioversion Hereditary lymphedema Venous insufficiency Morbid obesity Lymphedema COPD (chronic obstructive pulmonary disease) Sensory neuropathy COVID-19 Respiratory failure with hypoxia Restrictive lung disease COPD (chronic obstructive pulmonary disease) JEFFRY on CPAP MATUTE (dyspnea on exertion) Chronic cystitis Bladder outlet obstruction Restless leg syndrome Traumatic complete tear of right rotator cuff Injury of right rotator cuff History of diverticulitis History of umbilical hernia Surgical History Hx of colonoscopy History of appendectomy History of arthroscopy of left knee Family History Father Arthritis Diabetes Mother Arthritis Kidney stones Family/Other Arthritis Sister No problems noted. Sister No problems noted. Son No problems noted. Social History Household Members: Spouse Household Members Other:: Floridalma Housing: Condominium Do you presently have visiting nurse or other home services: No Alcohol intake: current Alcohol intake frequency: 0-2 drinks per day Alcohol type: beer Comment: refusing bed alarm Patient Tobacco Use Status: Former Tobacco user Tobacco use type: Cigarette Cigarette Packs Per Day: 1 Cigarettes Per Day: 20.0 Years Smoked: 30 years e-Cigarette/Vaping Use: Never Used Second Hand Smoke Exposure: No Substance Use Type: Marijuana Advance Directives Date on File: 05/16/20 service: No Current occupational status: retired 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 Cognitive needs: No Hearing needs: No Vision needs: No Review of Systems Const All systems reviewed & are unremarkable except as noted in HPI and below Reports no additional complaints ENT Reports Normal hearing present Card Denies chest pain, Denies chest pain at rest, Denies chest pain with activity and Denies pedal edema Resp Denies cough GI Denies abdominal pain Musc Details: pain over varicosities, aching of lower extremities, swelling, cramping, heaviness and tiredness, itching Denies abnormal gait, Denies muscle cramps and Denies radiating pain into limb Skin/Breast Denies skin ulcer and Denies wounds Neuro Reports Normal hearing present and Denies abnormal gait Psych Reports no additional complaints Physical Exam Vital Signs: BMI result Body Mass Index 54.5 Const General: cooperative, healthy appearing and comfortable Orientation/consciousness: oriented to person, oriented to place and oriented to time HEENT Head: Yes normal to inspection Neck Neck: Yes normal visual inspection Carotids: no bruits Chest Chest palpation & inspection: normal inspection of the chest Resp Effort & Inspection: normal respiratory effort and able to speak in complete sentences Auscultation: clear to auscultation bilaterally, no crackles, no rales, no rhonchi and no wheezes Cardio Rate: regular rate Rhythm: regular rhythm Heart sounds: S1 normal heart sound present and S2 normal heart sound present Bruits: no carotid bruits Peripheral pulses: Peripheral pulses 2+ throughout GI Inspection: Yes normal to inspection Skin Other: +2 edema, CircAid stockings intact CEAP Classification C 5-healed ulcer Ep - Etiology Primary As - superficial veins P - reflux General skin exam: dry skin Wounds: no wounds Hair: normal Neuro General: oriented to person, oriented to place and oriented to time Cranial nerves: Yes CN's II-XII intact bilaterally and Yes Normal hearing pre sent Cognition (Neuro): normal cognition Motor exam (neuro): 5/5 motor strength present throughout Extrem Other: venous exam: No significant superficial varicosities or spider telangiectasias, minimal edema General: No clubbing, No cyanosis and No edema Right lower extremity: full ROM, normal capillary refill and edema Left lower extremity: full ROM, normal capillary refill and edema Psych Appearance: grossly normal Mental Status: mental status grossly normal Speech and movement: Normal speech and movement present Results Reviewed Results Reviewed: Brief summary of venous insufficiency testing is as follows: right great saphenous vein: negative right small saphenous vein: negative right accessory vein: none present left great saphenous vein: negative left small saphenous vein: negative left accessory vein: none present Please note there is no evidence of any venous aneurysms or significant tortuosity Assessment & Plan Assessment & Plan (1) Leg edema, left: Code(s): R60.0 - Localized edema Category: Medical Plan: In short patient has chronic edema of the lower extremities. This is again multifactorial in that he has heart failure morbid obesity and also is being treated for acute kidney injury as well. His repeat venous testing appears to be negative. At the current time would recommend continued conservative measures including compression elevation and exercise. (2) Lymphedema: Comment: IT IS A CHRONIC PROBLEM, followed by wound care and vascular Code(s): I89.0 - Lymphedema, not elsewhere classified Category: Medical Plan: Patient has lymphedema pumps but has been somewhat noncompliant with him. We did reinforce the use compression pumps. In addition we did discuss routine risk factor modification and the importance of ambulation and weight loss. He does have a walker and it is imperative that he starts moving to get a few lb off in order to help with the edema and his overall general health. He will follow up with us in approximately 6 months for routine leg check. Insert G-tube Coding Level of Care Code Est Pt Level 4 (41415) Complex EM visit Add On G2211 Diagnoses Leg edema, left R60.0 Lymphedema I89.0
== END 2023-11-20 11:44 | disposition home or self-care (01) ==
PROVIDERS: PCP Nurse Practitioner Family; Visit Provider Surgery Vascular Surgery
DX: R60.0 Localized edema (principal); I89.0 Lymphedema, not elsewhere classified
CPT/HCPCS: 99214; G2211

== ENCOUNTER → 2023-11-20 10:52 | Outpatient (BNVA) | payer MEDICARE, SELFPAY | PROVIDERS: PCP Nurse Practitioner Family; Visit Provider Surgery Vascular Surgery | DX: R60.0 Localized edema (principal); I89.0 Lymphedema, not elsewhere classified | CPT/HCPCS: 99212 ==

== ENCOUNTER 2023-11-25 14:51 | Outpatient (AMB) | payer MEDICARE, SELFPAY ==
--- NOTE | 2023-11-25 15:46 | A.OFFVIS_ITS ---
Intake Visit Reasons: [facility] 10/25 Swollen scrotum/hydrocele Intake Note: Patient is Present for Follow Up [facility] 10/25 Hydrocele/Swollen Scrotum Urology Medication: Oxybutynin, Doxazosin, Finasteride Antibiotic Allergies: None Blood Thinners: Eliquis Allergies No Known Allergies [No Known Allergies*] Allergy (Verified 01/30/24 10:35) HPI Comments Details: Dinh is a very pleasant male. He is a patient of Dr. Chong. He is seen for the following urologic conditions - chronic cystitis - lower urinary tract symptoms Recent testicular swelling with ER visit Normal ultrasound Good success with Current medications Recently started GLP 1 Discussed maintaining activity Lower urinary tract symptoms - predominant urgency Did notice improved stream with doxazosin 8 mg and finasteride Still with urge - responsive to myrbetriq Hematuria: Chronic cystitis on prior biopsy Episode of marked hematuria October 2020 Microscopic hematuria was diagnosed during routine UA. They are here for the cystoscopy and discussion of imaging findings. Since the last visit the patient has has not noticed gross hematuria, continues to test positive for microscopic hematuria. Relevant medical history for no pertinent medical history. PSA 01/07 1.6, 05/09 1.3 Radiographic imaging: CT KUB NAD - bilateral renal cyst. Cystoscopy findings September 2018 chronic cystitis. Therapeutic plan follow-up in 6 months [facility] Medical History Paroxysmal atrial fibrillation Congestive heart failure Testicular swelling Osteoarthritis of right knee Melanoma History of cardioversion Hereditary lymphedema Venous insufficiency Morbid obesity Lymphedema COPD (chronic obstructive pulmonary disease) Sensory neuropathy COVID-19 Respiratory failure with hypoxia Restrictive lung disease COPD (chronic obstructive pulmonary disease) JEFFRY on CPAP MATUTE (dyspnea on exertion) Chronic cystitis Bladder outlet obstruction Restless leg syndrome Traumatic complete tear of right rotator cuff Injury of right rotator cuff History of diverticulitis History of umbilical hernia Surgical History Hx of colonoscopy History of appendectomy History of arthroscopy of left knee Family History Father Arthritis Diabetes Mother Arthritis Kidney stones Family/Other Arthritis Sister No problems noted. Sister No problems noted. Son No problems noted. Social History Household Members: Spouse Household Members Other:: Floridalma Housing: Condominium Do you presently have visiting nurse or other home services: Yes (health care something ) Alcohol intake: current Alcohol intake frequency: 0-2 drinks per day Alcohol type: beer Comment: refusing bed alarm Patient Tobacco Use Status: Former Tobacco user Tobacco use type: Cigarette Cigarette Packs Per Day: 1 Cigarettes Per Day: 20.0 Years Smoked: 30 years e-Cigarette/Vaping Use: Never Used Second Hand Smoke Exposure: No Substance Use Type: Marijuana Advance Directives Date on File: 05/16/20 service: No Current occupational status: retired 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 Cognitive needs: No Hearing needs: No Vision needs: No Review of Systems Const Denies chills and Denies fever(s) Card Reports no additional complaints and Denies syncope Resp Denies cough GI Denies abdominal pain and Denies heartburn Reports as per HPI and Denies change in libido Neuro Denies syncope Psych Denies change in libido Endo Denies change in libido Physical Exam Const General: cooperative, healthy appearing, comfortable and no acute distress Orientation/consciousness: patient oriented x3 HEENT Face and sinus: Yes normal facial exam Mouth: moist mucous membranes Neck Neck: Yes normal visual inspection, Yes full ROM and Yes trachea midline Chest Chest palpation & inspection: normal inspection of the chest Resp Effort & Inspection: normal respiratory effort, able to speak in complete sentences and no respiratory distress GI Inspection: Yes normal to inspection Back/Spine/Pelvis Cervical Spine: normal cervical lordosis Thoracic/Lumbar Spine: thoracic and lumbar spine normal to inspection Skin General skin exam: no rashes or lesions noted Neuro General: patient oriented x3, gait normal, tone normal and moves all extremities Extrem General: Yes normal to inspection and Yes capillary refill normal Assessment & Plan Assessment & Plan (1) Testicular swelling: Code(s): N50.89 - Other specified disorders of the male genital organs Category: Medical Plan Reassurance Patient Instructions: Imaging studies, laboratory and physical exam results were discussed and reviewed in detail. No major barriers to patient understanding were identified. An opportunity to ask questions regarding the treatment plan was provided. All questions were answered. The patient expressed understanding and agreement with the above treatment plan. The patient is aware they should contact our office by phone for worsening of their current condition or the appearance of new urologic symptoms. Compliance is encouraged with any medications and followup testing that is ordered. It is a privilege to participate in the urologic care of your patient. If you have any questions or concerns regarding treatment for the above conditions, or other urologic issues, please do not hesitate to contact me. The office telephone contact is [phone]. This note is constructed using voice recognition software. While every effort has been made to ensure accuracy compressor stations superintendent errors may have been included. Yours sincerely, Dr Prabhu Head MD, [facility] - Urology Providers of Expert, Compassionate Care for the Genitourinary System Coding Level of Care Code Est Pt Level 3 (40072) Diagnoses Testicular swelling N50.89
== END 2023-11-25 16:40 | disposition home or self-care (01) ==
PROVIDERS: PCP Nurse Practitioner Family; Visit Provider Urology
DX: N50.89 Other specified disorders of the male genital organs (principal)
CPT/HCPCS: 99213

== ENCOUNTER → 2023-11-25 14:51 | Outpatient (BNVA) | payer MEDICARE, SELFPAY | PROVIDERS: PCP Nurse Practitioner Family; Visit Provider Urology | DX: N30.20 Other chronic cystitis without hematuria (principal); Z79.899 Other long term (current) drug therapy | CPT/HCPCS: 99212 ==

== ENCOUNTER 2023-11-27 08:32 | Outpatient (AMB) | payer MEDICARE, SELFPAY ==
--- NOTE | 2023-11-27 07:24 | MHC.PC.OV ---
Intake Visit Reasons: weight loss - other options Allergies No Known Allergies [No Known Allergies*] Allergy (Verified 11/27/23 07:37) Medication List - Last Reconciled 11/27/23 by Diego Augustine [facility]- albuterol sulfate 90 mcg/actuation 2 puffs PO Q6H PRN amiodarone 200 mg PO DAILY 90 days ammonium lactate 12% 1 appl topical DAILY Anoro Ellipta 62.5-25 mcg/actuation (umeclidinium-vilanterol) 1 inh PO DAILY NS apixaban (Eliquis) 5 mg PO BID atorvastatin 80 mg PO BEDTIME 90 days bumetanide 2 mg See Protocol PO DAILY docusate sodium 100 mg PO BID PRN doxazosin 8 mg PO BEDTIME 90 days duloxetine 60 mg PO DAILY empagliflozin (Jardiance) 10 mg PO DAILY finasteride 5 mg PO DAILY 90 days lactulose 20 grams (30 mL) PO BID PRN oxybutynin chloride ER 10 mg PO DAILY 90 days oxycodone 5 mg PO BID PRN 8 days pregabalin 150 mg PO TID 90 days ropinirole 2 mg PO TID 90 days spironolactone 50 mg (2 x 25 mg) PO BID tocilizumab (Actemra ACTPen) 162 mg subcut SA@0900 walker daily use (rolling sitting walker-bariatric size needed) Tobacco use date assessed: 05/13/23 Dental Screening Dental Screen Date: 05/13/23 HPI weight loss - other options HPI Details Pt was sent wegovy for weight loss which was denied by insurance. I wrote a letter with support from cardiology on importance of starting this medication, which was still denied. I sent zepbound which pt reports was also denied. Pt has significant comorbidities including CH, afib, osteoarthritis, rheumatoid, morbid obesity. He will call his supplementary insurance to see what else can be done. He has been working on his diet, eating unsalted foods and smaller portions. Pt reports that his scrotal edema is decreasing as well as his BLE edema. He is starting at a lymphedema clinic next week. He reports that his blood pressure is in the 130s/70s. Pt is walking more and has more energy. He is following up with cardiology, pulmonology, and urology. Denies fever, chills, and dizziness. [facility] Medical History Congestive heart failure Testicular swelling Osteoarthritis of right knee Melanoma History of cardioversion Hereditary lymphedema Venous insufficiency Morbid obesity Lymphedema COPD (chronic obstructive pulmonary disease) Sensory neuropathy COVID-19 Respiratory failure with hypoxia Restrictive lung disease COPD (chronic obstructive pulmonary disease) JEFFRY on CPAP MATUTE (dyspnea on exertion) Chronic cystitis Bladder outlet obstruction Restless leg syndrome Traumatic complete tear of right rotator cuff Injury of right rotator cuff History of diverticulitis History of umbilical hernia Surgical History Hx of colonoscopy History of appendectomy History of arthroscopy of left knee Family History Father Arthritis Diabetes Mother Arthritis Kidney stones Family/Other Arthritis Sister No problems noted. Sister No problems noted. Son No problems noted. Social History Household Members: Spouse Household Members Other:: Floridalma Housing: Condominium Do you presently have visiting nurse or other home services: No Alcohol intake: current Alcohol intake frequency: 0-2 drinks per day Alcohol type: beer Comment: refusing bed alarm Patient Tobacco Use Status: Former Tobacco user Tobacco use type: Cigarette Cigarette Packs Per Day: 1 Cigarettes Per Day: 20.0 Years Smoked: 30 years e-Cigarette/Vaping Use: Never Used Second Hand Smoke Exposure: No Substance Use Type: Marijuana Advance Directives Date on File: 05/16/20 service: No Current occupational status: retired 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 Cognitive needs: No Hearing needs: No Vision needs: No Questionnaire Thrive Questionnaire Date Thrive assessed: 09/16/23 I am a: Patient What is your living situation today?: I have a steady place to live Within the past 12 months, did the food you bought not last and you didn't have the money to get more?: Never true Within the past 12 months, did you worry whether your food would run out before you got money to buy more?: Sometimes True Do you have trouble paying for medicines?: Yes Do you have trouble getting transportation to medical appointments?: No Do you have trouble paying your heating and electricity bill?: Yes Do you have trouble taking care of your child, family member or friend?: No Do you have trouble with day-to-day activities such as bathing, preparing meals, shopping, managing finances, etc.?: Yes Are you currently unemployed and looking for a job?: No Are you interested in more education?: No Currently or been in a relationship where the following occur: No concerns reported THRIVE Score: 2 KIRA-7 AMB Questionnaire KIRA-7 Date KIRA - 7 assessed: 09/23/23 Source: Developed by Drs. Marc Victoria, Karen Nguyen, Tristan Dominguez and colleagues, with an educational juan from [employer]. Review of Systems Const Reports as per HPI Physical exam (Primary Care) Tobacco/Smoking Status: Tobacco use Status Tobacco use date assessed 05/13/23 09/23/23 09:31 Patient Tobacco Use Status Former Tobacco user 11/05/23 10:29 Tobacco use type Cigarette 09/23/23 09:31 e-Cigarette/Vaping Use Never Used 09/23/23 09:31 Thrive Assessment: Date of Thrive Assessment Date Thrive assessed 09/16/23 11/17/23 14:17 Currently or been in a relationship where the following occur: No concerns reported Const General: cooperative Orientation/consciousness: patient oriented x3 Neuro General: patient oriented x3 Psych Appearance: grossly normal Mental Status: mental status grossly normal Speech and movement: Clear speech present Affect: normal affect Attitude: cooperative Thought process: Normal thought process present Thought content: Normal thought content present Insight: Good insight present (Psych) Judgement: Good judgement present (Psych) Telehealth Telehealth Telehealth Platform: [facility] Location of provider rendering services: practice address Location of patient: address on file Patient Identification confirmed using: Name, : Yes Telehealth method: video Patient verbally consented to treatment: Yes Patient verbally consented to billing insurance company: Yes Patient informed of any privacy concerns related to visit: Yes Minutes spent on Phone/Video with Pt.: 15 Coding Level of Care Code Tele Est Pt Level 3 (49296) Diagnoses Paroxysmal atrial fibrillation I48.0 Acute congestive heart failure I50.9 Seronegative rheumatoid arthritis M06.00 Morbid obesity E66.01 Assessment & Plan Assessment & Plan (1) Paroxysmal atrial fibrillation: Code(s): I48.0 - Paroxysmal atrial fibrillation Category: Medical Plan: recommend weight loss, highly recommend GLP-1 agonist (2) Acute congestive heart failure: Code(s): I50.9 - Heart failure, unspecified Category: Medical (3) Seronegative rheumatoid arthritis: Comment: -ve RF -ve CCP [place] 05/2023 DC 09/2023 ineffective Code(s): M06.00 - Rheumatoid arthritis without rheumatoid factor, unspecified site Category: Medical (4) Morbid obesity: Code(s): E66.01 - Morbid (severe) obesity due to excess calories Category: Medical Plan: Frequent denials from insurance, despite much effort. Pt is calling his supplementary insurance to check coverage and let me know Plan The patient agreed to the use of a medical and health services manager for this encounter. Scribed for BRENDEN Goldstein by Temitope Navarro medical and health services manager, on 11/27/2023 at 07:25 EST.
== END 2023-11-27 08:32 | disposition home or self-care (01) ==
LOC: HO.HMCC 08:32
PROVIDERS: PCP Nurse Practitioner Family; Visit Provider Nurse Practitioner Family
DX: I48.0 Paroxysmal atrial fibrillation (principal); I50.9 Heart failure, unspecified; M06.00 Rheumatoid arthritis without rheumatoid factor, unspecified site; E66.813 Obesity, class 3

== ENCOUNTER → 2023-11-27 08:32 | Outpatient (BNVA) | payer MEDICARE, SELFPAY | PROVIDERS: PCP Nurse Practitioner Family; Visit Provider Nurse Practitioner Family | DX: I48.0 Paroxysmal atrial fibrillation (principal); I50.9 Heart failure, unspecified; M06.00 Rheumatoid arthritis without rheumatoid factor, unspecified site; E66.01 Morbid (severe) obesity due to excess calories; G47.33 Obstructive sleep apnea (adult) (pediatric); Z99.89 Dependence on other enabling machines and devices; J44.9 Chronic obstructive pulmonary disease, unspecified; J98.4 Other disorders of lung; J96.91 Respiratory failure, unspecified with hypoxia | CPT/HCPCS: 99212 ==

== ENCOUNTER 2023-11-27 09:20 | Outpatient (AMB) | payer MEDICARE, SELFPAY ==
--- NOTE | 2023-11-27 09:26 | MHC.OFFVIS ---
Vital Signs 11/27/23 09:27 Height 6 ft 4 in Weight 440 lb 14.792 oz BMI 53.7 BP 122/78 Blood Pressure Location Lt brachial Position Sitting Pulse 70 Pulse Source Pulse Oximeter Pulse Oximetry (%) 95 Oxygen Delivery Method Room Air Intake Visit Reasons: dyspnea Intake Note: pt is here for follow up and states he had a hospital stay for fluid overload, is trying to eat better, breathing is not too bad. 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 Allergies No Known Allergies [No Known Allergies*] Allergy (Verified 11/27/23 09:44) Medication List - Last Reconciled 11/27/23 by Savanna Andujar MD albuterol sulfate 90 mcg/actuation 2 puffs PO Q6H PRN amiodarone 200 mg PO DAILY 90 days ammonium lactate 12% 1 appl topical DAILY Anoro Ellipta 62.5-25 mcg/actuation (umeclidinium-vilanterol) 1 inh PO DAILY NS apixaban (Eliquis) 5 mg PO BID atorvastatin 80 mg PO BEDTIME 90 days bumetanide 2 mg See Protocol PO DAILY docusate sodium 100 mg PO BID PRN doxazosin 8 mg PO BEDTIME 90 days duloxetine 60 mg PO DAILY empagliflozin (Jardiance) 10 mg PO DAILY finasteride 5 mg PO DAILY 90 days lactulose 20 grams (30 mL) PO BID PRN oxybutynin chloride ER 10 mg PO DAILY 90 days oxycodone 5 mg PO BID PRN 8 days pregabalin 150 mg PO TID 90 days ropinirole 2 mg PO TID 90 days spironolactone 50 mg (2 x 25 mg) PO BID tocilizumab (Actemra ACTPen) 162 mg subcut SA@0900 walker daily use (rolling sitting walker-bariatric size needed) Do you need a note to return to daycare/school/sports/work: No HPI HPI dyspnea: Details: This 68 years old very pleasant gentleman is here for follow-up after 4 months. Breathing status has remained very stable. He just has mild intermittent cough, gets short of breath on walking around. He continues to do deep breathing exercises on his own. He is on O2 2 L/minute around the clock. Uses CPAP regularly every night and sleeps well. Has lost a few lb of weight. Was admitted to the hospital last month with mild increase in congestive heart failure which is now well controlled. Lymphedema of the legs is also controlled with compression bandages and he attends the lymphedema clinic twice a week. [facility] Medical History Congestive heart failure Testicular swelling Osteoarthritis of right knee Melanoma History of cardioversion Hereditary lymphedema Venous insufficiency Morbid obesity Lymphedema COPD (chronic obstructive pulmonary disease) Sensory neuropathy COVID-19 Respiratory failure with hypoxia Restrictive lung disease COPD (chronic obstructive pulmonary disease) JEFFRY on CPAP MATUTE (dyspnea on exertion) Chronic cystitis Bladder outlet obstruction Restless leg syndrome Traumatic complete tear of right rotator cuff Injury of right rotator cuff History of diverticulitis History of umbilical hernia Surgical History Hx of colonoscopy History of appendectomy History of arthroscopy of left knee Family History Father Arthritis Diabetes Mother Arthritis Kidney stones Family/Other Arthritis Sister No problems noted. Sister No problems noted. Son No problems noted. Social History Household Members: Spouse Household Members Other:: Floridalma Housing: Condominium Do you presently have visiting nurse or other home services: No Alcohol intake: current Alcohol intake frequency: 0-2 drinks per day Alcohol type: beer Comment: refusing bed alarm Patient Tobacco Use Status: Former Tobacco user Tobacco use type: Cigarette Cigarette Packs Per Day: 1 Cigarettes Per Day: 20.0 Years Smoked: 30 years e-Cigarette/Vaping Use: Never Used Second Hand Smoke Exposure: No Substance Use Type: Marijuana Advance Directives Date on File: 05/16/20 service: No Current occupational status: retired 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[employer]/ [employer] Cognitive needs: No Hearing needs: No Vision needs: No Review of Systems Const All systems reviewed & are unremarkable except as noted in HPI and below Eyes Reports no additional complaints ENT Reports no additional complaints Card Denies chest pain, Denies irregular heart rhythm and Denies leg edema Resp Reports as per HPI GI Reports no additional complaints Reports no additional complaints Musc Reports back pain Skin/Breast Reports system reviewed and no additional complaints, except as documented Neuro Reports no additional complaints Psych Reports no additional complaints Physical Exam Vital Signs: Last Vital Signs Pulse 70 11/27/23 09:27 BP 122/78 11/27/23 09:27 Pulse Ox 97 11/27/23 09:27 Oxygen Delivery Method Room Air 11/27/23 09:27 BMI result Body Mass Index 53.7 Const Other: wearing oxygen General: cooperative, healthy appearing, comfortable and no acute distress Orientation/consciousness: patient oriented x3 HEENT Head: Yes normal to inspection General nose exam: No nasal polyps present and No nasal discharge present Face and sinus: Yes sinuses nontender Mouth: oropharynx normal Throat: Yes posterior oropharynx normal Eyes General: appearance normal, both eyes and all related structures Neck Neck: Yes normal visual inspection, Yes no lymphadenopathy, Yes trachea midline and Yes no JVD Thyroid: Thyroid normal Chest Chest palpation & inspection: normal inspection of the chest, normal palpation of entire chest wall and no tenderness Resp Other: Percussion note not perceptible because of thick chest wall. Breath sounds are distant and especially decreased over the basilar areas. No wheezes or crepitations are heard. Effort & Inspection: normal respiratory effort and able to speak in complete sentences Auscultation: clear to auscultation bilaterally Cardio Palpation: PMI not normal (Not palpable) Rate: regular rate Rhythm: abnormal rhythm and other (Atrial fib) Heart sounds: no gallops and no murmurs GI Palpation (GI): Soft to palpation, nontender, No hepatosplenomegaly present, no masses and Other GI palpation findings present (Grossly obese and protuberant) Auscultation: normal bowel sounds Back/Spine/Pelvis Cervical Spine: normal cervical lordosis and cervical ROM normal Thoracic/Lumbar Spine: thoracic and lumbar spine normal to inspection, thoraco-lumbar ROM normal and paraspinal muscle tenderness (left trapezius/rhomboid tenderness and tautness of musculature to palpation) Skin General skin exam: no rashes or lesions noted Neuro General: patient oriented x3 and Normal light touch and pain sensation Cranial nerves: Yes CN's II-XII intact bilaterally Extrem General: Yes edema (Has chronic stasis edema /lymphedema both legs which is currently increased) and Yes venous stasis dermatitis Psych Appearance: grossly normal Mental Status: mental status grossly normal Speech and movement: Normal speech and movement present Assessment & Plan Assessment & Plan (1) Morbid obesity: Comment: Patient remains morbidly obese. Stable in the last 1 year. Difficult for him to lose weight. Hopefully with better control of his congestive heart failure and peripheral edema, he will have some weight reduction again. Code(s): E66.01 - Morbid (severe) obesity due to excess calories Category: Medical Plan: Advised to watch diet, limit intake of salt. Continue to take diuretics as directed. (2) JEFFRY on CPAP: Comment: KNOWN TO HAVE OBSTRUCTIVE SLEEP APNEA. USES CPAP REGULARLY AND HAS BEEN VERY COMPLIANT AND BENEFITTING. CURRENTLY USING OXYGEN 2 L/MT ALONG WITH CPAP AT NIGHTTIME. Code(s): G47.33 - Obstructive sleep apnea (adult) (pediatric); Z99.89 - Dependence on other enabling machines and devices Category: Medical Plan: Continue using CPAP along with O2 at night (3) COPD (chronic obstructive pulmonary disease): Comment: COPD remains stable and controlled, Lungs very clear , but breath sounds distant due to gross obesity. Code(s): J44.9 - Chronic obstructive pulmonary disease, unspecified Category: Medical Plan: Continue to use Anoro Ellipta once a day and albuterol inhaler 2 puffs Q 6 hours only p.r.n.. (4) Restrictive lung disease: Comment: RESTRICTION IS MAINLY BECAUSE OF HIS MORBID OBESITY. Code(s): J98.4 - Other disorders of lung Category: Medical Plan: Advised to continue doing deep breathing exercises every 2 hours during the daytime (5) Respiratory failure with hypoxia: Comment: NOCTURNAL HYPOXEMIA , also hypoxemia with any physical activity. Code(s): J96.91 - Respiratory failure, unspecified with hypoxia Category: Medical Plan: CONTINUE TO USE O2, 2-3 L/MINUTE AT NIGHT ALONG WITH CPAP . ALSO USE PORTABLE OXYGEN at 2-3 L/mt. AND STATIONARY CONCENTRATOR ONLY P.R.N.. Coding Level of Care Code Est Pt Level 4 (78427) Diagnoses Morbid obesity E66.01 JEFFRY on CPAP G47.33; Z99.89 COPD (chronic obstructive pulmonary disease) J44.9 Restrictive lung disease J98.4 Respiratory failure with hypoxia J96.91
[2023-11-27 09:27] VITALS: BP 122/78; PULSE 70; O2SAT 95; BMI 53.7
== END 2023-11-27 09:44 | disposition home or self-care (01) ==
PROVIDERS: PCP Nurse Practitioner Family; Visit Provider Internal Medicine
DX: E66.01 Morbid (severe) obesity due to excess calories (principal); G47.33 Obstructive sleep apnea (adult) (pediatric); Z99.89 Dependence on other enabling machines and devices; J44.9 Chronic obstructive pulmonary disease, unspecified; J98.4 Other disorders of lung; J96.91 Respiratory failure, unspecified with hypoxia
CPT/HCPCS: 99214

== ENCOUNTER 2023-12-03 10:53 | Outpatient (REF) | payer MEDICARE, SELFPAY ==
[2023-12-03 13:13] LABS: MANUAL DIFF FLAG NO
[2023-12-03 13:35] LABS: Basophils Absolute Auto 0.1 X10*3/uL (0.0-0.2); Basophils Percent Auto 0.5 % (0-2); Eosinophils Absolute Auto 0.2 X10*3/uL (0.0-0.4); Hematocrit 47.9 % (42.0-52.0); Hemoglobin 16.3 g/dl (14.0-18.0); Imm Gran Abs Auto 0.03 X10*3/uL (0.00-0.03); Imm Gran Pct Auto 0.3 % (0.0-0.4); Lymphocytes Absolute Auto 2.1 X10*3/uL (1.2-4.9); Lymphocytes Percent Auto 22.3 % (20-40); Mean Corpuscular Hemoglobin 34.4 pg (27.0-33.0); Mean Corpuscular Volume 101.1 fL (80.0-98.0); Mean Platelet Volume 11.2 fL (9.4-12.4); Monocytes Absolute Auto 0.8 X10*3/uL (0.1-1.2); Monocytes Percent Auto 8.9 % (2-11); Neutrophils Absolute Auto 6.3 x10*3/uL (2.0-8.3); Platelet Count 197 X10*3/uL (160-400); Red Blood Count 4.74 X10*6/uL (4.60-5.80); Red Cell Distribution Width 14.1 % (11.0-16.0); White Blood Count 9.5 X10*3/uL (4.8-10.8)
[2023-12-03 13:51] LABS: Appearance Urine Turbid; Color Urine Yellow; Glucose Urine UA 500 mg/dL (Negative); Leukocyte Esterase Urine Large (3+) (Negative); Nitrite Urine Positive (Negative); PH 5.5 (5.0-9.0); Specific Gravity - Urine 1.015 (1.005-1.025); UMIC TRIGGER UA YES; Urine Blood Large (3+) (Negative); Urine Ketones Negative (Negative); Urine Protein 100 (2+) mg/dL (Neg-Trace)
[2023-12-03 14:07] LABS: Bacteria Urine 4+ (None Seen); Squamous Epithelial Cell Urine 0-2 /HPF (0-2); WBC Urine >50 /HPF (0-5)
[2023-12-03 14:13] LABS: Erythrocyte Sedimentation Rate 1 MM/HR (0-15)
[2023-12-03 14:14] LABS: Alanine Aminotransferase 39 U/L (0-40); Albumin Level 4.1 g/dL (3.5-5.0); Alkaline Phosphatase 69 U/L (39-117); Anion Gap 15 (12-20); Aspartate Amino Transferase 28 U/L (5-37); Bilirubin Total 1.5 mg/dL (0.0-1.0); Blood Urea Nitrogen 19 mg/dL (9-16); C Reactive Protein 0.12 mg/dL (< or = 0.50); Calcium 9.7 mg/dL (8.4-10.2); Carbon Dioxide 22 mmol/L (22-29); Chloride 105 mmol/L (96-108); Estimated Glomerular Filt Rate > 60; Glucose Random 99 mg/dL (60-115); Potassium 4.5 mmol/L (3.3-5.1); Sodium 137 mmol/L (135-145); Total Protein 6.8 g/dL (6.5-8.0)
== END 2023-12-03 10:54 | disposition home or self-care (01) ==
LOC: HO.HMGCLDS 10:53
PROVIDERS: PCP Nurse Practitioner Family; Referring Provider Urology; Visit Provider Student in an Organized Health Care Education/Training Program
DX: Z13.89 Encounter for screening for other disorder (principal)
CPT/HCPCS: 36415; 80053; 81001; 85025; 85652; 86140; 87086; 87088; 87186

== ENCOUNTER 2023-12-06 11:51 | Inpatient (IN) | payer MEDICARE, SELFPAY ==
[2023-12-06] VITALS (10 sets, daily range): BP systolic 100–132; BP diastolic 50–90; PULSE 77–103; RESP 18–22; TEMP 36.1–36.8; O2SAT 93–95; BMI 52.3; BMI 53.7
--- NOTE | 2023-12-06 | ECG_ITS ---
Test Reason : SOB Blood Pressure : / mmHG Vent. Rate : 087 BPM Atrial Rate : 087 BPM P-R Int : 222 ms QRS Dur : 142 ms QT Int : 398 ms P-R-T Axes : 032 003 011 degrees QTc Int : 478 ms Sinus rhythm with 1st degree A-V block Right bundle branch block Abnormal ECG When compared with ECG of 04-NOV-2023 17:06, T wave inversion now evident in Anterior leads Referred By: Generic ED Physician Electronically Signed By:FEDERICO SANTOS
--- NOTE | ~2023-12-06 | XR_ITS ---
EXAMINATION: XR CHEST CLINICAL INFORMATION: Shortness of breath COMPARISON: Chest radiograph from 10/26/2023 TECHNIQUE: Frontal view of the chest was obtained. FINDINGS: Streaky opacity bilateral lung bases potentially represent atelectasis. Bilateral low lung volumes. Accentuation of bronchopulmonary vascular markings. No pneumothorax. Trachea is midline. Cardiothymic silhouette is stable. Osseous structures are intact. Soft tissues are unremarkable. XR/XR chest 1V IMPRESSION: 1. Streaky opacity bilateral lung bases potentially represent atelectasis. 2. Bilateral low lung volumes. 3. Accentuation of bronchopulmonary vascular markings. Electronically signed by: Anh Poe MD 12/06/2023 02:26 PM EDT
[2023-12-06 12:32] LABS: Basophils Percent Auto 0.2 % (0-2); Eosinophils Percent Auto 0.1 % (0-4); Hematocrit 47.3 % (42.0-52.0); Hemoglobin 16.7 g/dl (14.0-18.0); Imm Gran Abs Auto 0.06 X10*3/uL (0.00-0.03); Imm Gran Pct Auto 0.4 % (0.0-0.4); Lymphocytes Absolute Auto 0.7 X10*3/uL (1.2-4.9); Lymphocytes Percent Auto 4.9 % (20-40); MANUAL DIFF FLAG NO; Mean Corpuscular HGB Conc 35.3 g/dl (31.0-36.0); Mean Corpuscular Hemoglobin 34.9 pg (27.0-33.0); Mean Corpuscular Volume 98.7 fL (80.0-98.0); Monocytes Absolute Auto 0.9 X10*3/uL (0.1-1.2); Monocytes Percent Auto 6.4 % (2-11); Neutrophils Absolute Auto 12.1 x10*3/uL (2.0-8.3); Red Blood Count 4.79 X10*6/uL (4.60-5.80); Red Cell Distribution Width 14.3 % (11.0-16.0); White Blood Count 13.8 X10*3/uL (4.8-10.8)
[2023-12-06 12:37] LABS: INTERNATIONAL NORM RATIO 1.6 (0.9-1.1); Prothrombin Time 19.1 SEC (10.9-12.4)
[2023-12-06 12:43] LABS: Anion Gap 13 (12-20); Blood Urea Nitrogen 22 mg/dL (9-16); Calcium 8.9 mg/dL (8.4-10.2); Carbon Dioxide 22 mmol/L (22-29); Chloride 103 mmol/L (96-108); Creatinine Clr Calc Pharmacy 86.4; Estimated Glomerular Filt Rate 44; Glucose Random 133 mg/dL (60-115); Potassium 4.3 mmol/L (3.3-5.1); Sodium 134 mmol/L (135-145)
[2023-12-06 12:44] LABS: Lactic Acid 1.8 mmol/L (0.5-2.0)
--- NOTE | 2023-12-06 12:51 | ED.GENADULT ---
HPI - General Adult General Chief complaint: Nausea/Vomiting/Diarrhea Stated complaint: SOB,COPD/4LPM HOME O2,N/V,RECENT UTI DX X3D Time Seen by Provider: 12/06/23 12:25 Source: patient and EMS Mode of arrival: EMS Limitations: no limitations History of Present Illness ED Provider: DR. Harris HPI narrative: This is a 68-year old male, with a hx of CHF, paroxysmal atrial fibrillation on Eliquis and amiodarone, lymphedema with chronic venous stasis, hypertension, COPD on 3 L home O2 when needed, hypertension, recently diagnosed with UTI is taking Cipro, returned today for increased exertional dyspnea, increased bilateral lower extremity swelling, increase usage of supplemental oxygen, generalized body ache. Patient also reported worsening of his urinary tract infection symptoms. Related Data Home Medications ?Medication ?Instructions ?Recorded ?Confirmed albuterol sulfate 90 mcg/actuation 2 puff PO Q6H PRN for wheezing 10/13/22 11/17/23 aerosol inhaler tocilizumab 162 mg/0.9 mL 162 mg subcut SA@0900 10/26/23 11/17/23 subcutaneous pen injector (Actemra ACTPen) docusate sodium 100 mg capsule 100 mg PO BID PRN constipation 11/14/23 11/17/23 ammonium lactate 12 % lotion 1 appl topical DAILY 11/20/23 Previous Rx's ?Medication ?Instructions ?Recorded apixaban 5 mg tablet (Eliquis) 5 mg PO BID #60 tabs 01/27/23 atorvastatin 80 mg tablet 80 mg PO BEDTIME 90 days #90 tabs 05/05/23 walker #1 ea 05/22/23 duloxetine 60 mg capsule,delayed 60 mg PO DAILY #90 caps 07/24/23 release finasteride 5 mg tablet 5 mg PO DAILY 90 days #90 tabs 09/08/23 amiodarone 200 mg tablet 200 mg PO DAILY 90 days #90 tabs 10/10/23 oxycodone 5 mg tablet 5 mg PO BID PRN pain 8 days #16 10/15/23 tabs doxazosin 8 mg tablet 8 mg PO BEDTIME 90 days #90 tabs 11/03/23 oxybutynin chloride 10 mg 10 mg PO DAILY 90 days #90 tabs 11/03/23 tablet,extended release 24 hr Anoro Ellipta 62.5 mcg-25 1 inh PO DAILY #60 ea 11/05/23 mcg/actuation powder for inhalation (umeclidinium-vilanterol) empagliflozin 10 mg tablet 10 mg PO DAILY #60 tabs 11/05/23 (Jardiance) lactulose 20 gram/30 mL oral 20 g (30 mL) PO BID PRN 11/05/23 solution constipation #200 mL spironolactone 25 mg tablet 50 mg (2 x 25 mg) PO BID #120 tabs 11/05/23 ropinirole 2 mg tablet 2 mg PO TID 90 days #270 tabs 11/06/23 bumetanide 1 mg tablet 2 mg PO DAILY #120 tabs 11/17/23 pregabalin 150 mg capsule 150 mg PO TID 90 days #270 caps 12/02/23 ciprofloxacin HCl 500 mg tablet 500 mg PO BID 7 days #14 tabs 12/05/23 Allergies Allergy/AdvReac Type Severity Reaction Status Date / Time No Known Allergies Allergy Verified 12/06/23 12:07 [No Known Allergies*] Review of Systems Review of Systems: All other systems are reviewed and are negative Constitutional: Reports as per HPI and Reports no additional constitutional complaints Eyes: Reports as per HPI and Reports no additional eye complaints Reports system reviewed and no additional complaints, except as documented Cardiovascular: Reports as per HPI and Reports no additional cardiovascular complaints Respiratory: Reports as per HPI and Reports no additional respiratory complaints Gastrointestinal: Reports as per HPI and Reports no additional gastrointestinal complaints Genitourinary: Reports no additional female genitourinary complaints Musculoskeletal: Reports no additional musculoskeletal complaints Skin/Breast: Reports system reviewed and no additional complaints, except as docu Psychiatric: Reports no additional psychiatric complaints Endocrine: Reports no additional endocrine complaints Hematologic/Lymphatic: Reports no additional hematologic/lymphatic complaints Allergic/Immunologic: Reports no additional allergic/immunologic complaints Reports system reviewed and no additional complaints, except as documented and Reports Abnormal speech present [facility] Past Medical History Medical History Congestive heart failure Testicular swelling Osteoarthritis of right knee Melanoma History of cardioversion Hereditary lymphedema Venous insufficiency Morbid obesity Lymphedema COPD (chronic obstructive pulmonary disease) Sensory neuropathy COVID-19 Respiratory failure with hypoxia Restrictive lung disease COPD (chronic obstructive pulmonary disease) JEFFRY on CPAP MATUTE (dyspnea on exertion) Chronic cystitis Bladder outlet obstruction Restless leg syndrome Traumatic complete tear of right rotator cuff Injury of right rotator cuff History of diverticulitis History of umbilical hernia Surgical History Hx of colonoscopy History of appendectomy History of arthroscopy of left knee Family History Family History Father Arthritis Diabetes Mother Arthritis Kidney stones Family/Other Arthritis Sister No problems noted. Sister No problems noted. Son No problems noted. Social History Social History Household Members: Spouse Household Members Other:: Floridalma Housing: Condominium Do you presently have visiting nurse or other home services: No Alcohol intake: current Alcohol intake frequency: 0-2 drinks per day Alcohol type: beer Comment: refusing bed alarm Patient Tobacco Use Status: Former Tobacco user Tobacco use type: Cigarette Cigarette Packs Per Day: 1 Cigarettes Per Day: 20.0 Years Smoked: 30 years Smoked in Last 30 Days: No e-Cigarette/Vaping Use: Never Used Second Hand Smoke Exposure: No Use of substances other than those prescribed or required for medical reasons: Yes Substance Use Type: Marijuana Substance Use Frequency: Daily Advance Directives: No Advance Directives Date on File: 05/16/20 Do you have a plan to hurt others: No Plan service: No Current occupational status: retired 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 Cognitive needs: No Hearing needs: No Vision needs: No Physical Exam ED Vital Signs: Vital Signs - 24 hr 12/06/23 12:01 12/06/23 12:09 12/06/23 13:00 Temperature 98.2 F 98.2 F Pulse Rate 103 H 103 H 90 Respiratory Rate 18 18 22 H Blood Pressure 108/53 L 108/53 L Pulse Oximetry 94 94 Oxygen Delivery Method Nasal Cannula Nasal Cannula Oxygen Flow Rate 12/06/23 14:32 Temperature 98.1 F Pulse Rate 96 Respiratory Rate 18 Blood Pressure 111/51 L Pulse Oximetry 94 Oxygen Delivery Method Nasal Cannula Oxygen Flow Rate 3 BMI result Body Mass Index 53.7 Vital signs have been reviewed and appear to be correct. Blood pressure elevated. Heart rate Elevated, Respiratory rate normal. Temperature normal. Oxygen saturation normal. Appearance: Alert. Oriented X3. No acute distress. Head: Normal external exam. Normocephalic. Atraumatic. No Graves signs noted. No raccoon eyes noted Eyes: PERRLA. EOMI. Conjunctiva and sclera normal. Eyelids normal. ENT: TM's Normal. Pharynx normal. Uvula midline. Moist mucous membranes. No trismus noted. No drooling noted. No muffled voice noted. Neck: Normal inspection. Neck supple. FROM. No adenopathy. Thyroid Normal. No meningeal signs. No neck mass noted. CVS: Normal heart rate and rhythm. Heart sound normal. No murmurs noted. Pulses normal throughout. Respiratory: No respiratory distress. Painless inspiration. diminished breathing sounds bilaterally, diffuse expiratory wheezing with prolonged expiration. Chest nontender. No accessory muscle usage noted or decreased air movement noted. Abdomen: Soft and nontender. Bowel sounds normal in all 4 quadrants. No distention noted. No organomegaly noted. No visible injury noted. Back: No CVA tenderness. Full range of motion noted. Skin: Skin warm and dry. Normal skin color. Normal skin turgor. No rashes/lesions/lacerations noted. Extremities: bilateral +4 lower extremity edema. Extremities exhibit normal range of motion. Extremities nontender. Neuro: Oriented X 3. Cranial nerve exam: II-XII are grossly intact No motor deficit. No sensory deficit. Reflexes normal. Course Reevaluation(s) Reevaluation #1: increased exertional dyspnea, increased demand of supplemental O2 at home, x-ray showed pneumonia require multiple doses of bronchodilator, Solu-Medrol, and magnesium. Patient is still symptomatic will need hospitalization for further management of COPD exacerbation. Time: 15:03 Medications Administered Discontinued Medications Generic Name Dose Route Start Last Admin Trade Name Freq PRN Reason Stop Dose Admin Albuterol Sulfate 5 mg/ 0 mg 12/06/23 12:56 12/06/23 12:58 Albuterol/Ipratropium 3 ml INHALE 12/06/23 12:57 1 each ONCE ONE Administration Magnesium Sulfate 2 gm in 50 mls @ 25 mls/hr 12/06/23 12:48 12/06/23 13:41 Magnesium Sulfate/H2o IV 12/06/23 14:47 Infused ONCE ONE Infusion Methylprednisolone Sodium Succinate 125 mg 12/06/23 12:48 12/06/23 13:19 Methylprednisolone Sod Succ 125 Mg/2 Ml Vial IVPUSH 12/06/23 12:49 125 mg ONCE ONE Administration Ondansetron HCl 4 mg 12/06/23 13:35 12/06/23 13:39 Ondansetron Hcl 4 Mg/2 Ml Vial IVPUSH 12/06/23 13:36 4 mg ONCE ONE Administration Medical Decision Making Differential Diagnosis Differential Diagnoses: The differential diagnosis associated with the presentation includes ( COPD exacerbation, pneumonia, pneumothorax, Pleural effusion, CHF, electrolyte derangement, severe anemia , UTI.) Admission/Observation Consideration of admission/observation: Escalation of care including admission/observation considered Consult Healthcare Provider Management of the patient was discussed with: Hospitalist ( Dr. Harris) Lab Data MDM Lab Attestation statement: I reviewed the patient's lab results. 12/06/23 12:27 12/06/23 12:27 Labs: Lab Results 12/06/23 12/06/23 12/06/23 Range/Units 12:27 12:29 13:17 WBC 13.8 H (4.8-10.8) X10*3/uL RBC 4.79 (4.60-5.80) X10*6/uL Hgb 16.7 (14.0-18.0) g/dl Hct 47.3 (42.0-52.0) % MCV 98.7 H (80.0-98.0) fL MCH 34.9 H (27.0-33.0) pg MCHC 35.3 (31.0-36.0) g/dl RDW 14.3 (11.0-16.0) % Plt Count 55 L D (160-400) X10*3/uL MPV 12.6 H (9.4-12.4) fL Immature Gran % (Auto) 0.4 (0.0-0.4) % Neut % (Auto) 88.0 H (45-73) % Lymph % (Auto) 4.9 L (20-40) % [place] % (Auto) 6.4 (2-11) % Eos % (Auto) 0.1 (0-4) % Baso % (Auto) 0.2 (0-2) % Lymph # (Auto) 0.7 L (1.2-4.9) X10*3/uL [place] # (Auto) 0.9 (0.1-1.2) X10*3/uL Eos # (Auto) 0.0 (0.0-0.4) X10*3/uL Baso # (Auto) 0.0 (0.0-0.2) X10*3/uL Abs Immat Gran (auto) 0.06 H (0.00-0.03) X10*3/uL Absolute Neuts (auto) 12.1 H (2.0-8.3) x10*3/uL Absolute Nucleated RBC 0.000 (0.0-0.012) X10*3/uL Nucleated RBC % (auto) 0.0 (0.0-0.2) /100WBC PT 19.1 H (10.9-12.4) SEC INR 1.6 H (0.9-1.1) Sodium 134 L (135-145) mmol/L Potassium 4.3 (3.3-5.1) mmol/L Chloride 103 (96-108) mmol/L Carbon Dioxide 22 (22-29) mmol/L Anion Gap 13 (12-20) BUN 22 H (9-16) mg/dL Creatinine 1.57 H (0.5-1.4) mg/dL Estim Creat Clear Calc 86.4 Estimated GFR 44 Random Glucose 133 H (60-115) mg/dL Lactic Acid 1.8 (0.5-2.0) mmol/L Calcium 8.9 D (8.4-10.2) mg/dL B-Natriuretic Peptide < 10 (<100) pg/mL Urine Color Yellow Urine Appearance Cloudy Urine pH 5.5 (5.0-9.0) Ur Specific [place] 1.020 (1.005-1.025) Urine Protein 30 (1+) H (Neg-Trace) mg/dL Urine Glucose (UA) >=1000 H (Negative) mg/dL Urine Ketones Negative (Negative) mg/dL Urine Blood Moderate (2+) H (Negative) Urine Nitrite Negative (Negative) Ur Leukocyte Esterase Small (1+) H (Negative) Urine RBC 3-5 H (0-2) /HPF Urine WBC 11-20 (0-5) /HPF Ur Squamous Epith Cells 0-2 (0-2) /HPF Urine Bacteria None Seen (None Seen) Hyaline Casts 0-2 (0-2) /LPF Independent Interpretation I performed an independent interpretation of an: Plain X-Ray ( chest:1. Streaky opacity bilateral lung bases potentially represent atelectasis. 2. Bilateral low lung volumes. 3. Accentuation of bronchopulmonary vascular markings. ) Radiology Impression Discussion of test interpretation with radiology: I have reviewed the radiologist's reading. Discharge Plan Discharge Clinical Impression: COPD exacerbation Patient Disposition: Admitted As Inpatient Print Language: Estonian
[2023-12-06] MEDS: Albuterol Sulfate 5 MG, Albuterol/Iprat 2.5/0.5MG 3 ML 3 ML INHALE (12:58)
[2023-12-06 13:06] LABS: Mean Platelet Volume 12.6 fL (9.4-12.4); Platelet Count 55 X10*3/uL (160-400)
[2023-12-06 13:19] LABS: B Type Natriuretic Peptide < 10 pg/mL (<100)
[2023-12-06] MEDS: methylPREDNISolone Sod Succ 125 MG/2 ML VIAL IVPUSH (13:19)
[2023-12-06] MEDS: Magnesium Sulfate/H2O 2 GM/50 ML PIGGYBACK IV (13:22)
[2023-12-06 13:31] LABS: Appearance Urine Cloudy; Color Urine Yellow; Glucose Urine UA >=1000 mg/dL (Negative); Leukocyte Esterase Urine Small (1+) (Negative); Nitrite Urine Negative (Negative); PH 5.5 (5.0-9.0); UMIC TRIGGER UACC YES; Urine Blood Moderate (2+) (Negative); Urine Ketones Negative (Negative); Urine Protein 30 (1+) mg/dL (Neg-Trace)
[2023-12-06] MEDS: ondansetron HCL 4 MG/2 ML VIAL IVPUSH (13:39)
[2023-12-06 13:41] LABS: Bacteria Urine None Seen (None Seen); Hyaline Casts Urine 0-2 /LPF (0-2); Squamous Epithelial Cell Urine 0-2 /HPF (0-2); UACC Culture Trigger YES
--- NOTE | 2023-12-06 15:06 | P.HPHOSP_ITS ---
History of Present Illness Date of Service: 12/06/23 Attending physician on admission: David Peterson Chief Complaint: SOB Pt is a 68-year-old male with a PMH significant for? paroxysmal AFib on Eliquis and amiodarone, HFrEF, lymphedema with chronic venous stasis, HTN, COPD on 3L home O2 prn, JEFFRY on CPAP, seronegative RA, HTN, overactive bladder, and obesity class 3 who presents to the ED with?multiple complaints, including intractable nausea, vomiting, difficulty breathing, weakness, and dysuria. Pt reports has been experiencing polyuria and dysuria earlier in the week and was diagnosed with a UTI on 3 days prior on 12/02. Was prescribed Bactrim by Urology, the patient reports the following day began developing intractable nausea and vomiting. Was unable to eat or drink anything. Believes symptoms to be secondary to antibiotic use, so contacted Urology who switched antibiotics to Cipro. Patient reports continues to experience nausea and vomiting, and has been able to only tolerate a small amount of yogurt and fluid since this morning. Has been experiencing urinary hesitancy and significant dysuria when he is able to urinate. Patient has also had significant nonproductive cough, SOB, and MATUTE for the past 2-3 days that has not been alleviated by p.r.n. oxygen or home inhalers. States legs have been so weak that he has been unable to ambulate for the past 2 days. Also complains of constipation with last bowel movement 3-4 days ago. No chest pain or pressure. Chronic lower leg edema at baseline. No fever, chills, or abdominal pain. In the ED pt was tachycardic to 103, tachypneic up to 22, and soft BP as low as 108/53. Satting as low as 91% on RA. Labs were significant for leukocytosis 13.8, sodium 134, BUN 22 , and creatinine 1.59 (increased from previous of 1.19). Stable H&H. Lactic acid WNL at 1.8. BNP negative. UA positive for leukocyte esterase, WBCs 11-20. CXR showed streaky opacity bilateral lung bases possibly representing atelectasis. Pt was treated with ondansetron, DuoNebs, Solu-Medrol, and Mag sulfate. Pt will be admitted to the hospital for treatment and further evaluation of MARIAN and COPD exacerbation in the setting UTI with sepsis that has failed outpatient therapy. Review of Systems 2 Review of Systems: Yes all other systems are reviewed and are negative [facility] Medical History Congestive heart failure Testicular swelling Osteoarthritis of right knee Melanoma History of cardioversion Hereditary lymphedema Venous insufficiency Morbid obesity Lymphedema COPD (chronic obstructive pulmonary disease) Sensory neuropathy COVID-19 Respiratory failure with hypoxia Restrictive lung disease COPD (chronic obstructive pulmonary disease) JEFFRY on CPAP MATUTE (dyspnea on exertion) Chronic cystitis Bladder outlet obstruction Restless leg syndrome Traumatic complete tear of right rotator cuff Injury of right rotator cuff History of diverticulitis History of umbilical hernia Family History Father Arthritis Diabetes Mother Arthritis Kidney stones Family/Other Arthritis Sister No problems noted. Sister No problems noted. Son No problems noted. Surgical History Hx of colonoscopy History of appendectomy History of arthroscopy of left knee Social History Household Members: Spouse Household Members Other:: Floridalma [facility] Do you presently have visiting nurse or other home services: No Alcohol intake: current Alcohol intake frequency: 0-2 drinks per day Alcohol type: beer Comment: refusing bed alarm Patient Tobacco Use Status: Former Tobacco user Tobacco use type: Cigarette Cigarette Packs Per Day: 1 Cigarettes Per Day: 20.0 Years Smoked: 30 years Smoked in Last 30 Days: No e-Cigarette/Vaping Use: Never Used Second Hand Smoke Exposure: No Use of substances other than those prescribed or required for medical reasons: Yes Substance Use Type: Marijuana Substance Use Frequency: Daily Advance Directives: No Advance Directives Date on File: 05/16/20 Do you have a plan to hurt others: No Plan service: No Current occupational status: retired 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 Cognitive needs: No Hearing needs: No Vision needs: No Meds Allergies Allergy/AdvReac Type Severity Reaction Status Date / Time No Known Allergies Allergy Verified 12/06/23 12:07 [No Known Allergies*] Home Medications ?Medication ?Instructions ?Recorded ?Confirmed ?Last Taken ?Type albuterol sulfate 90 mcg/actuation 2 puff PO Q6H PRN for wheezing 10/13/22 11/17/23 Unknown History aerosol inhaler tocilizumab 162 mg/0.9 mL 162 mg subcut SA@0900 10/26/23 11/17/23 10/25/23 History subcutaneous pen injector (Actemra ACTPen) docusate sodium 100 mg capsule 100 mg PO BID PRN constipation 11/14/23 11/17/23 Unknown History ammonium lactate 12 % lotion 1 appl topical DAILY 11/20/23 Unknown History Physical Exam 2 Vital Signs and Narrative: Vital Signs: Last Vital Signs Temp 98.1 F 12/06/23 14:32 Pulse 96 12/06/23 14:32 Resp 18 12/06/23 14:32 BP 111/51 L 12/06/23 14:32 Pulse Ox 94 12/06/23 14:32 O2 Del Method Nasal Cannula 12/06/23 14:32 O2 Flow Rate 3 12/06/23 14:32 Oxygen Flow Rate 3 12/06/23 12:01 BMI result Body Mass Index 53.7 Constitutional: Alert, in no acute distress. Mental Status: Oriented to person, place and time. Eyes: Pupils are equal, round, and reactive to light. Ear, Nose, and Throat: Oropharynx clear, mucous membranes dry. Ears and nose without deformities. Trachea midline. Respiratory: Diffuse wheezing bilaterally. Cardiovascular: S1, S2 regular rhythm, tachycardic. Gastrointestinal: Abdomen obese, non-tender. Normal bowel sounds. Neurologic: Cranial nerves II-XII are grossly intact bilaterally. No focal neurological deficits. Moves all extremities spontaneously. Skin: Warm, dry. Extremities: Lower extremities with lymphedema and chronic venous stasis dermatitis changes bilaterally. No indication of cellulitis or necrosis. Psychiatric: Normal mood and affect. Results Labs 12/06/23 12:27 12/06/23 12:27 Labs: Laboratory Results - last 24 hr 12/06/23 12/06/23 12/06/23 12:27 12:29 13:17 MCV 98.7 H MCH 34.9 H MCHC 35.3 RDW 14.3 Plt Count 55 L D MPV 12.6 H Immature Gran % (Auto) 0.4 Neut % (Auto) 88.0 H Lymph % (Auto) 4.9 L [place] % (Auto) 6.4 Eos % (Auto) 0.1 Baso % (Auto) 0.2 Lymph # (Auto) 0.7 L [place] # (Auto) 0.9 Eos # (Auto) 0.0 Baso # (Auto) 0.0 Abs Immat Gran (auto) 0.06 H Absolute Neuts (auto) 12.1 H Absolute Nucleated RBC 0.000 Nucleated RBC % (auto) 0.0 PT 19.1 H INR 1.6 H Anion Gap 13 Estim Creat Clear Calc 86.4 Estimated GFR 44 Random Glucose 133 H Lactic Acid 1.8 Calcium 8.9 D B-Natriuretic Peptide < 10 Urine Color Yellow Urine Appearance Cloudy Urine pH 5.5 Ur Specific [place] 1.020 Urine Protein 30 (1+) H Urine Glucose (UA) >=1000 H Urine Ketones Negative Urine Blood Moderate (2+) H Urine Nitrite Negative Ur Leukocyte Esterase Small (1+) H Urine RBC 3-5 H Urine WBC 11-20 Ur Squamous Epith Cells 0-2 Urine Bacteria None Seen Hyaline Casts 0-2 Imaging Radiologist's Impressions: Impressions Chest X-Ray 12/06/23 12:48 IMPRESSION: 1. Streaky opacity bilateral lung bases potentially represent atelectasis. 2. Bilateral low lung volumes. 3. Accentuation of bronchopulmonary vascular markings. Electronically signed by: Anh Poe MD 12/06/2023 02:26 PM EDT RP Assessment and Plan (1) COPD exacerbation: Status: Acute (2) MARIAN (acute kidney injury): Status: Acute (3) Sepsis secondary to UTI: Status: Acute Plan Pt is a 68-year-old male with a PMH significant for? paroxysmal AFib on Eliquis and amiodarone, HFrEF, lymphedema with chronic venous stasis, HTN, COPD on 3L home O2 prn, JEFFRY on CPAP, seronegative RA, HTN, overactive bladder, and obesity class 3 who presents to the ED with?multiple complaints, including intractable nausea, vomiting, difficulty breathing, weakness, and dysuria. Pt will be admitted to the hospital for treatment and further evaluation of MARIAN and COPD exacerbation in the setting UTI with sepsis that has failed outpatient therapy. UTI UA positive on 12/02, initially placed on Bactirm then switched to Cipro on 12/04 d/t N/V Continues to experience significant dysuria Meets sepsis criteria: Tachycardia, tachypnea, leukocytosis; lactic acid WNL at 1.8 Will treat with ceftriaxone, started 12/06/2023 Tamsulosin for urinary hesitancy Follow urine cultures MARIAN Creatinine 1.57 at time of presentation, elevated from 1.19 on 12/03/2023 Secondary to hypovolemia due to intractable nausea and vomiting and reduced p.o. intake Gentle fluid resuscitation due to hx of anasarca, CHF Will give 500 cc bolus Hold Bumex, spironolactone Follow BMP COPD exacerbation Patient with wheezing, cough, SOB, MATUTE Will treat with DuoNebs, Solu-Medrol, guaifenesin CXR negative for pneumonia Doxycycline for pleiotropic effects Continue home 3L NC prn Intractable nausea and vomiting Likely secondary to abx use Anti-emetics prn Constipation Reports last BM 3-4 days ago Scheduled Miralax, colace for now Generalized weakness Reports has been unable to ambulate x2 days PT consult Paroxysmal AFib Continue Eliquis HTN BP has been soft in the setting of hypovolemia Hold amiodarone for now, resume as warranted Lymphedema Hold Bumex, spironolactone due to MARIAN Chronic venous statsis dermatitis Follows with wound care Ammonium lactate Peripheral neuropathy Continue pregabalin Mood disorder Continue home mood stabalizers Full Code Attending:?Dr. Peterson DVT Prophylaxis: On Eliquis Pt will require a hospitalization of at least two nights for treatment of?multiple issues, including UTI with sepsis that has failed outpatient therapy, MARIAN in the setting of hypovolemia due to intractable nausea and vomiting, and COPD exacerbation. Patient will require hospital level care for careful administration of IVF, IV antibiotics, breathing treatments, IV steroids, and close monitoring labs and vitals. Quality Stroke Does the patient have a stroke diagnosis?: No VTE Prior VTE?: No VTE Risk Level:: Medical - moderate - high VTE Device Contraindication: Treatment Not Indicated VTE Drug Contraindication: N/A - Med Ordered
[2023-12-06] MEDS: cefTRIAXone sodium 1 GM VIAL IVPUSH (16:01)
[2023-12-06] MEDS: Tamsulosin HCL 0.4 MG CAPSULE PO (16:09)
[2023-12-06] MEDS: Doxycycline Hyclate 100 MG in 0.9 % Sodium Chloride 250 ML 166.67 MG IV (16:10)
[2023-12-06] MEDS: 0.9 % Sodium Chloride 500 ML 999 ML IV (16:17)
[2023-12-06] MEDS: polyethylene glycoL 3350 17 GM POWD.PACK PO (16:36)
[2023-12-06] MEDS: Albuterol/Iprat 2.5/0.5MG 3 ML AMPUL.NEB INHALE (16:41)
--- NOTE | 2023-12-06 18:10 | PHA.MEDREC ---
Addendum entered by Venus Haile RPh 12/06/23 18:20: REVIEWED BY [facility] Original Note: Pharmacy Consult ? Medication Reconciliation Pharmacy has completed the medication reconciliation.
[2023-12-06 20:30] LABS: Influenza A PCR NEGATIVE (Negative); Influenza B PCR NEGATIVE (Negative); Resp Syncy Virus RNA Qual PCR NEGATIVE (Negative); SARS COV2 PCR INHOUSE NEGATIVE (Negative)
[2023-12-06] MEDS: Docusate Sodium 100 MG CAPSULE PO (21:49)
[2023-12-06] MEDS: methylPREDNISolone Sod Succ 125 MG/2 ML VIAL 60 MG IVPUSH (21:49)
[2023-12-06] MEDS: 0.9 % Sodium Chloride Flush 3 ML SYRINGE IVFLUSH (21:50)
[2023-12-06] MEDS: Milk of Magnesia 30 ML ORAL.SUSP PO (21:50)
[2023-12-06] MEDS: Melatonin 3 MG TABLET 6 MG PO (22:00)
[2023-12-07] MEDS: methylPREDNISolone Sod Succ 125 MG/2 ML VIAL 60 MG IVPUSH ×4 (02:04→20:50)
[2023-12-07] MEDS: traZODone HCL 25 MG HALFTAB 12.5 MG PO (02:04)
[2023-12-07] MEDS: Doxycycline Hyclate 100 MG in 0.9 % Sodium Chloride 250 ML 166.67 MG IV ×2 (04:42→16:20)
[2023-12-07 07:19] LABS: Hemoglobin 15.6 g/dl (14.0-18.0)
[2023-12-07 07:21] LABS: Hematocrit 45.6 % (42.0-52.0); Mean Corpuscular HGB Conc 34.2 g/dl (31.0-36.0); Mean Corpuscular Hemoglobin 34.3 pg (27.0-33.0); Mean Corpuscular Volume 100.2 fL (80.0-98.0); Mean Platelet Volume 12.9 fL (9.4-12.4); Red Blood Count 4.55 X10*6/uL (4.60-5.80); Red Cell Distribution Width 14.2 % (11.0-16.0); White Blood Count 16.7 X10*3/uL (4.8-10.8)
[2023-12-07 07:23] LABS: PLT ABN DIST 1; Platelet Count 60 X10*3/uL (160-400)
[2023-12-07 07:33] LABS: Anion Gap 14 (12-20); Blood Urea Nitrogen 28 mg/dL (9-16); Calcium 8.8 mg/dL (8.4-10.2); Carbon Dioxide 23 mmol/L (22-29); Chloride 103 mmol/L (96-108); Creatinine Clr Calc Pharmacy 100.5; Estimated Glomerular Filt Rate 53; Glucose Random 140 mg/dL (60-115); Potassium 4.6 mmol/L (3.3-5.1); Sodium 135 mmol/L (135-145)
[2023-12-07 08:00] VITALS: BP 114/64; PULSE 73; RESP 20; TEMP 36.1; O2SAT 96
[2023-12-07] MEDS: Docusate Sodium 100 MG CAPSULE PO ×2 (08:40→20:50)
[2023-12-07] MEDS: 0.9 % Sodium Chloride Flush 3 ML SYRINGE IVFLUSH (08:40)
[2023-12-07] MEDS: Apixaban 5 MG TABLET PO ×2 (08:40→20:50)
[2023-12-07] MEDS: Finasteride 5 MG TABLET PO (08:40)
[2023-12-07] MEDS: Empagliflozin 10 MG TABLET PO (08:40)
[2023-12-07] MEDS: Pregabalin 150 MG CAPSULE PO ×3 (08:41→20:50)
[2023-12-07] MEDS: polyethylene glycoL 3350 17 GM POWD.PACK PO (08:42)
[2023-12-07] MEDS: DULoxetine HCl 60 MG CAPSULE.DR PO (09:04)
[2023-12-07] MEDS: oxyBUTYnin chloride ER 5 MG TAB.ER.24 10 MG PO (09:04)
[2023-12-07] MEDS: rOPINIRole HCL 2 MG TABLET PO ×3 (09:04→20:50)
[2023-12-07] MEDS: Ammonium Lactate 12 % Lotion 226 GM BOTTLE 1 APPL TOPICAL (09:09)
--- NOTE | 2023-12-07 11:04 | MHC.CM.PN ---
IMM 12/07/23, Pt lives with his Floridalma, she is his HCP, and this is confirmed and on file. He was DC's from this hosp. on 11/05/23 and went home with VNA services from [facility]. He has DME of: CPAP, home O2 from [facility], and a walker. PCP is confirmed: Diego Augustine. to transport home at [place]. Update to be sent to [facility] VNA. DCP: home, resume services, CM to follow and assist with DC plan.
[2023-12-07 11:26] VITALS: BP 119/67; PULSE 93; RESP 20; TEMP 36; O2SAT 93
--- NOTE | 2023-12-07 11:55 | P.PNIM_ITS ---
Subjective Subjective Date of Service: 12/07/23 Interval History: Some improvement noted overnight. Utilizing CPAP Review of Systems Denies chest pain Denies shortness of breath Denies nausea vomiting diarrhea Denies fever chills Physical Exam 2 Vital Signs: Vital Signs: Last Vital Signs Temp 96.8 F 12/07/23 11:26 Pulse 93 12/07/23 11:26 Resp 20 12/07/23 11:26 BP 119/67 12/07/23 11:26 Pulse Ox 93 12/07/23 11:26 O2 Del Method Nasal Cannula 12/07/23 11:26 O2 Flow Rate 3 12/07/23 11:26 Oxygen Flow Rate 3 12/06/23 12:01 BMI result Body Mass Index 53.7 Const: Other: Awake alert no acute distress. Able to speak in full sentences Resp: Other: Diminished at bases with diffuse expiratory wheezes throughout Cardio: Other: No S4; positive S1-S2; no S3 murmurs rubs or gallops GI: Other: Soft nontender nondistended normoactive bowel sounds Extrem: Other: No edema bilaterally Objective Data Active Medications Acetaminophen (Acetaminophen 325 Mg Tablet) 650 mg PO Q6H PRN PRN Reason: Pain, Mild (Pain Scale 1-3), fever or headache Albuterol Sulfate (Albuterol Sulfate 90 Mcg 8 Gm Inhaler) 2 puff INHALE Q6H PRN PRN Reason: for wheezing Albuterol/Ipratropium (Albuterol/Iprat 2.5/0.5mg 3 Ml Ampul.Neb) 3 ml INHALE RQ4H WHILE AWAKE [facility] Last Admin: 12/07/23 11:23 Dose: Not Given Documented By: BRISEYDA Non-Admin Reason: Patient Refused Apixaban (Apixaban 5 Mg Tablet) 5 mg PO BID [facility] Last Admin: 12/07/23 08:40 Dose: 5 mg Documented By: JESSICA Atorvastatin Calcium (Atorvastatin Calcium 80 Mg Tablet) 80 mg PO BEDTIME [facility] Benzonatate (Benzonatate 100 Mg Capsule) 100 mg PO TID PRN PRN Reason: Cough Calcium Carbonate (Calcium Carbonate 750 Mg Tab.Chew) 750 mg PO Q4H PRN PRN Reason: Heartburn Ceftriaxone Sodium (Ceftriaxone Sodium 1 Gm Vial) 1 gm IVPUSH Q24H [facility] Last Admin: 12/06/23 16:01 Dose: 1 gm Documented By: AZRA Docusate Sodium (Docusate Sodium 100 Mg Capsule) 100 mg PO BID [facility] Last Admin: 12/07/23 08:40 Dose: 100 mg Documented By: JESSICA Duloxetine HCl (Duloxetine Hcl 60 Mg Capsule.) 60 mg PO DAILY [facility] Last Admin: 12/07/23 09:04 Dose: 60 mg Documented By: JESSICA Empagliflozin (Empagliflozin 10 Mg Tablet) 10 mg PO DAILY [facility] Last Admin: 12/07/23 08:40 Dose: 10 mg Documented By: JESSICA Finasteride (Finasteride 5 Mg Tablet) 5 mg PO DAILY [facility] Last Admin: 12/07/23 08:40 Dose: 5 mg Documented By: JESSICA Doxycycline Hyclate 100 mg/ (Sodium Chloride) 250 mls @ 166.67 mls/hr IV Q12H [facility] Last Infusion: 12/07/23 06:12 Dose: Infused Documented By: JESSICA Lactic Acid (Ammonium Lactate 12 % Lotion 226 Gm Bottle) 1 appl TOPICAL DAILY [facility]; Protocol Last Admin: 12/07/23 09:09 Dose: 1 appl Documented By: JESSICA Lactulose (Lactulose 20 Gm/30 Ml Solution) 20 gm PO BID PRN PRN Reason: constipation Magnesium Hydroxide (Milk Of Magnesia 30 Ml Oral.Susp) 30 ml PO DAILY PRN PRN Reason: Constipation Last Admin: 12/06/23 21:50 Dose: 30 ml Documented By: RC Melatonin (Melatonin 3 Mg Tablet) 6 mg PO BEDTIME PRN PRN Reason: Insomnia Last Admin: 12/06/23 22:00 Dose: 6 mg Documented By: RC Methylprednisolone Sodium Succinate (Methylprednisolone Sod Succ 125 Mg/2 Ml Vial) 60 mg IVPUSH Q6H [facility] Last Admin: 12/07/23 08:41 Dose: 60 mg Documented By: JESSICA Umeclidinium- Vilanterol [Anoro Ellipta] 62.5-25 Mcg /Actuation 1 each INHALE RDAILY [facility] Ondansetron HCl (Ondansetron Hcl 4 Mg/2 Ml Vial) 4 mg IVPUSH Q8H PRN PRN Reason: Nausea and Vomiting Oxybutynin Chloride (Oxybutynin Chloride Er 5 Mg Tab.Er.24) 10 mg PO DAILY [facility] Last Admin: 12/07/23 09:04 Dose: 10 mg Documented By: JESSICA Polyethylene Glycol (Polyethylene Glycol 3350 17 Gm Powd.Pack) 17 gm PO DAILY [facility] Last Admin: 12/07/23 08:42 Dose: 17 gm Documented By: JESSICA Pregabalin (Pregabalin 150 Mg Capsule) 150 mg PO TID [facility] Last Admin: 12/07/23 08:41 Dose: 150 mg Documented By: JESSICA Ropinirole HCl (Ropinirole Hcl 2 Mg Tablet) 2 mg PO TID [facility] Last Admin: 12/07/23 09:04 Dose: 2 mg Documented By: JESSICA Sodium Chloride (0.9 % Sodium Chloride Flush 3 Ml Syringe) 3 ml IVFLUSH QSHIFT [facility] Last Admin: 12/07/23 08:40 Dose: 3 ml Documented By: JESSICA Tamsulosin HCl (Tamsulosin Hcl 0.4 Mg Capsule) 0.4 mg PO BEDTIME [facility] Last Admin: 12/06/23 16:09 Dose: 0.4 mg Documented By: AZRA Labs 12/07/23 06:38 12/07/23 06:38 Labs: Laboratory Results - last 24 hr 12/06/23 12/06/23 12/06/23 12:27 12:29 13:17 MCV 98.7 H MCH 34.9 H MCHC 35.3 RDW 14.3 Plt Count 55 L D MPV 12.6 H Immature Gran % (Auto) 0.4 Neut % (Auto) 88.0 H Lymph % (Auto) 4.9 L [place] % (Auto) 6.4 Eos % (Auto) 0.1 Baso % (Auto) 0.2 Lymph # (Auto) 0.7 L [place] # (Auto) 0.9 Eos # (Auto) 0.0 Baso # (Auto) 0.0 Abs Immat Gran (auto) 0.06 H Absolute Neuts (auto) 12.1 H Absolute Nucleated RBC 0.000 Nucleated RBC % (auto) 0.0 PT 19.1 H INR 1.6 H Anion Gap 13 Estim Creat Clear Calc 86.4 Estimated GFR 44 Random Glucose 133 H Lactic Acid 1.8 Calcium 8.9 D B-Natriuretic Peptide < 10 Urine Color Yellow Urine Appearance Cloudy Urine pH 5.5 Ur Specific [place] 1.020 Urine Protein 30 (1+) H Urine Glucose (UA) >=1000 H Urine Ketones Negative Urine Blood Moderate (2+) H Urine Nitrite Negative Ur Leukocyte Esterase Small (1+) H Urine RBC 3-5 H Urine WBC 11-20 Ur Squamous Epith Cells 0-2 Urine Bacteria None Seen Hyaline Casts 0-2 Influenza Type A (PCR) Influenza Type B (PCR) RSV RNA Qual (PCR) SARS-CoV-2 RNA (RT-PCR) 12/06/23 12/07/23 19:42 06:38 MCV 100.2 H MCH 34.3 H MCHC 34.2 RDW 14.2 Plt Count 60 L MPV 12.9 H Immature Gran % (Auto) Neut % (Auto) Lymph % (Auto) [place] % (Auto) Eos % (Auto) Baso % (Auto) Lymph # (Auto) [place] # (Auto) Eos # (Auto) Baso # (Auto) Abs Immat Gran (auto) Absolute Neuts (auto) Absolute Nucleated RBC 0.000 Nucleated RBC % (auto) 0.0 PT INR Anion Gap 14 Estim Creat Clear Calc 100.5 Estimated GFR 53 Random Glucose 140 H Lactic Acid Calcium 8.8 B-Natriuretic Peptide Urine Color Urine Appearance Urine pH Ur Specific [place] Urine Protein Urine Glucose (UA) Urine Ketones Urine Blood Urine Nitrite Ur Leukocyte Esterase Urine RBC Urine WBC Ur Squamous Epith Cells Urine Bacteria Hyaline Casts Influenza Type A (PCR) NEGATIVE Influenza Type B (PCR) NEGATIVE RSV RNA Qual (PCR) NEGATIVE SARS-CoV-2 RNA (RT-PCR) NEGATIVE Microbiology Microbiology Results: Microbiology 12/06/23 Unknown Urine Culture - Final Urine clean catch - Clean Catch Midstream No growth. Assessment and Plan (1) COPD exacerbation: Status: Acute (2) Paroxysmal atrial fibrillation: Status: Acute Plan Pt is a 68-year-old male with a PMH significant for? paroxysmal AFib on Eliquis and amiodarone, HFrEF, lymphedema with chronic venous stasis, HTN, COPD on 3L home O2 prn, JEFFRY on CPAP, seronegative RA, HTN, overactive bladder, and obesity class 3 who presents to the ED with?multiple complaints, including intractable nausea, vomiting, difficulty breathing, weakness, and dysuria. Pt will be admitted to the hospital for treatment and further evaluation of MARIAN and COPD exacerbation in the setting UTI with sepsis that has failed outpatient therapy. 1.COPD exacerbation -continue ceftriaxone/doxycycline (2) -DuoNebs q.4 hours p.r.n. -pulse dose Solu-Medrol -supplemental O2 2.UTI -ceftriaxone(2) -Tamsulosin for urinary hesitancy; Pyridium for dysuric symptoms -Follow urine cultures 3.MARIAN -creatinine back to baseline -follow renals/divalents -continue hold diuretics 4.Paroxysmal AFib -acceptable rate control -Eliquis as ordered 5.HTN -acceptable control currently -add back therapies when clinically appropriate Full Code Eliquis Patient requires ongoing hospitalization for IV antibiotics and IV steroids to treat COPD exacerbation Quality Stroke Does the patient have a stroke diagnosis?: No VTE Prior VTE?: No VTE Risk Level:: Medical - moderate - high VTE Device Contraindication: Treatment Not Indicated VTE Drug Contraindication: N/A - Med Ordered
[2023-12-07] MEDS: Amiodarone HCL 200 MG TABLET PO (12:41)
[2023-12-07] MEDS: TOCILIZUMAB 162 MG/0.9 ML 162 EACH SUBCUT (12:42)
[2023-12-07] MEDS: Phenazopyridine HCL 200 MG TABLET PO ×2 (15:08→20:49)
[2023-12-07] MEDS: ondansetron HCL 4 MG/2 ML VIAL IVPUSH (15:19)
[2023-12-07 15:30] VITALS: BP 145/58; PULSE 71; RESP 20; TEMP 36.2; O2SAT 94
[2023-12-07] MEDS: cefTRIAXone sodium 1 GM VIAL IVPUSH (16:11)
[2023-12-07 20:10] VITALS: BP 108/56; PULSE 69; RESP 18; TEMP 36; O2SAT 93
[2023-12-07] MEDS: Melatonin 3 MG TABLET 6 MG PO (20:50)
[2023-12-07] MEDS: Atorvastatin Calcium 80 MG TABLET PO (20:50)
[2023-12-07] MEDS: Tamsulosin HCL 0.4 MG CAPSULE PO (20:50)
[2023-12-08] VITALS (7 sets, daily range): BP systolic 115–160; BP diastolic 33–74; PULSE 56–73; RESP 20; TEMP 36.1–36.3; O2SAT 91–96
[2023-12-08] MEDS: Doxycycline Hyclate 100 MG in 0.9 % Sodium Chloride 250 ML 166.67 MG IV (03:42)
[2023-12-08] MEDS: methylPREDNISolone Sod Succ 125 MG/2 ML VIAL 60 MG IVPUSH ×4 (03:42→19:59)
[2023-12-08 07:19] LABS: Anion Gap 12 (12-20); Blood Urea Nitrogen 36 mg/dL (9-16); Calcium 8.4 mg/dL (8.4-10.2); Carbon Dioxide 25 mmol/L (22-29); Chloride 106 mmol/L (96-108); Creatinine Clr Calc Pharmacy 112.1; Estimated Glomerular Filt Rate 60; Glucose Random 120 mg/dL (60-115); Potassium 4.7 mmol/L (3.3-5.1); Sodium 138 mmol/L (135-145)
[2023-12-08] MEDS: Empagliflozin 10 MG TABLET PO (09:26)
[2023-12-08] MEDS: rOPINIRole HCL 2 MG TABLET PO ×3 (09:26→19:58)
[2023-12-08] MEDS: Amiodarone HCL 200 MG TABLET PO (09:26)
[2023-12-08] MEDS: Pregabalin 150 MG CAPSULE PO ×3 (09:26→19:58)
[2023-12-08] MEDS: Finasteride 5 MG TABLET PO (09:26)
[2023-12-08] MEDS: Apixaban 5 MG TABLET PO ×2 (09:26→19:58)
[2023-12-08] MEDS: oxyBUTYnin chloride ER 5 MG TAB.ER.24 10 MG PO (09:26)
[2023-12-08] MEDS: Ammonium Lactate 12 % Lotion 226 GM BOTTLE 1 APPL TOPICAL (09:27)
[2023-12-08] MEDS: Docusate Sodium 100 MG CAPSULE PO ×2 (09:27→19:58)
[2023-12-08] MEDS: DULoxetine HCl 60 MG CAPSULE.DR PO (09:27)
[2023-12-08] MEDS: polyethylene glycoL 3350 17 GM POWD.PACK PO (09:27)
[2023-12-08] MEDS: 0.9 % Sodium Chloride Flush 3 ML SYRINGE IVFLUSH ×3 (09:28→20:00)
--- NOTE | 2023-12-08 10:48 | HO.WOUND ---
Wound Consult: Initial 68yr old? Male admitted to [facility] [place] on 12/06/23 - See progress notes and H&P for detailed history.? Wound consult placed for Bilateral buttock wounds noted on Admission.? Patient agreeable to assessment and photo documentation.? Patient reports wounds are tender to touch and has not been treating outside of hospital. Reports bilateral lower legs are healed and he follows with outpt wound clinic and OT / PT for lymphedema treatment. Patient reports she has lymphedema pump at home but does not use regularly. Patient was educated on benefits of lymphedema pump. 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 well defined Rupa wound: ? Dark red purple hyperpigmented tissue remains blanchable - No Induration, Fluctuance or Warmth noted Pain: reports tenderness Goals of Treatment: ? Triad and foam dressing Bilateral Lower legs noted to lymphedema , chronic venous deramtitis - no open wounds noted at this time. Will consult OT for lymphedema compression while inpatient. Bariatric bed ordered along with Bariatric recliner chair. Recommendations: 1. Turn and Reposition every 2 hours and as needed for patient comfort.? Use pillows or wedges to support off loading positions. 2. Off Load all bony prominences with use of pillows and heel boots if needed.? Apply Preventative foams where needed. ? 3. Monitor for incontinence and moisture control, use barrier creams when needed for prevention and treatment. 4. Provide adequate and supplemental nutrition.? 5. Bariatric bed ordered along with recliner chair. 6. When applicable maintain blood glucose levels per Providers order. 7. Bilateral Lower Legs - Elevate lower legs throughout the day. Encourage ambulation. Apply Ammonium lactate cream per provider orders. 8. Bilateral Gluteal Cleft - Off Load Pressure - Cleanse with Ph balanced wipes, pat dry. Apply Triad to wound bed cover with foam dressing. Change every 3 days and PRN. Re-consult wound care Nurse for wound deterioration or wound changes.
[2023-12-08] MEDS: Umeclidinium-Vilanterol [Anoro Ellipta] 62.5-25 mcg/actuation 1 EACH INHALE (11:52)
--- NOTE | 2023-12-08 12:43 | HO.PM.IMPN ---
Subjective Subjective Date of Service: 12/08/23 Interval History: Slowly improving. Still not back to baseline Review of Systems Denies chest pain Denies shortness of breath Denies nausea vomiting diarrhea Denies fever chills Physical Exam Vital Signs: Vital Signs: Last Vital Signs Temp 96.9 F 12/08/23 11:48 Pulse 63 12/08/23 11:48 Resp 20 12/08/23 11:48 BP 160/74 H 12/08/23 11:48 Pulse Ox 95 12/08/23 11:48 O2 Del Method Nasal Cannula 12/08/23 11:48 O2 Flow Rate 3 12/08/23 11:48 Oxygen Flow Rate 3 12/06/23 12:01 BMI result Body Mass Index 53.7 Const: Other: Awake alert no acute distress. Able to speak in full sentences Resp: Other: Diminished at bases with diffuse expiratory wheezes throughout Cardio: Other: No S4; positive S1-S2; no S3 murmurs rubs or gallops GI: Other: Soft nontender nondistended normoactive bowel sounds Extrem: Other: No edema bilaterally Objective Data Active Medications Acetaminophen (Acetaminophen 325 Mg Tablet) 650 mg PO Q6H PRN PRN Reason: Pain, Mild (Pain Scale 1-3), fever or headache Albuterol Sulfate (Albuterol Sulfate 90 Mcg 8 Gm Inhaler) 2 puff INHALE Q6H PRN PRN Reason: for wheezing Amiodarone HCl (Amiodarone Hcl 200 Mg Tablet) 200 mg PO DAILY [facility] Last Admin: 12/08/23 09:26 Dose: 200 mg Documented By: MOISES Apixaban (Apixaban 5 Mg Tablet) 5 mg PO BID [facility] Last Admin: 12/08/23 09:26 Dose: 5 mg Documented By: BRORenetta Atorvastatin Calcium (Atorvastatin Calcium 80 Mg Tablet) 80 mg PO BEDTIME [facility] Last Admin: 12/07/23 20:50 Dose: 80 mg Documented By: LAFLAMC Benzonatate (Benzonatate 100 Mg Capsule) 100 mg PO TID PRN PRN Reason: Cough Calcium Carbonate (Calcium Carbonate 750 Mg Tab.Chew) 750 mg PO Q4H PRN PRN Reason: Heartburn Ceftriaxone Sodium (Ceftriaxone Sodium 1 Gm Vial) 1 gm IVPUSH Q24H [facility] Last Admin: 12/07/23 16:11 Dose: 1 gm Documented By: JESSICA Docusate Sodium (Docusate Sodium 100 Mg Capsule) 100 mg PO BID [facility] Last Admin: 12/08/23 09:27 Dose: 100 mg Documented By: MOISES Doxycycline Monohydrate (Doxycycline Monohydrate 100 Mg Capsule) 100 mg PO Q12H [facility] Duloxetine HCl (Duloxetine Hcl 60 Mg Capsule.Dr) 60 mg PO DAILY [facility] Last Admin: 12/08/23 09:27 Dose: 60 mg Documented By: MOISES Empagliflozin (Empagliflozin 10 Mg Tablet) 10 mg PO DAILY [facility] Last Admin: 12/08/23 09:26 Dose: 10 mg Documented By: MOISES Finasteride (Finasteride 5 Mg Tablet) 5 mg PO DAILY [facility] Last Admin: 12/08/23 09:26 Dose: 5 mg Documented By: MOISES Lactic Acid (Ammonium Lactate 12 % Lotion 226 Gm Bottle) 1 appl TOPICAL DAILY [facility]; Protocol Last Admin: 12/08/23 09:27 Dose: 1 appl Documented By: MOISES Lactulose (Lactulose 20 Gm/30 Ml Solution) 20 gm PO BID PRN PRN Reason: constipation Magnesium Hydroxide (Milk Of Magnesia 30 Ml Oral.Susp) 30 ml PO DAILY PRN PRN Reason: Constipation Last Admin: 12/06/23 21:50 Dose: 30 ml Documented By: RC Melatonin (Melatonin 3 Mg Tablet) 6 mg PO BEDTIME PRN PRN Reason: Insomnia Last Admin: 12/07/23 20:50 Dose: 6 mg Documented By: RC Methylprednisolone Sodium Succinate (Methylprednisolone Sod Succ 125 Mg/2 Ml Vial) 60 mg IVPUSH Q6H [facility] Last Admin: 12/08/23 09:25 Dose: 60 mg Documented By: MOISES Umeclidinium- Vilanterol [Anoro Ellipta] 62.5-25 Mcg /Actuation 1 each INHALE RDAILY [facility] Last Admin: 12/08/23 11:52 Dose: 1 each Documented By: MOISES Pt Own (Tocilizumab [Actemra Actpen] 162 Mg/0.9 Ml Pen Injector) 162 mg SUBCUT SA@0900 [facility] Last Admin: 12/07/23 12:42 Dose: 162 mg Documented By: JESSICA Ondansetron HCl (Ondansetron Hcl 4 Mg/2 Ml Vial) 4 mg IVPUSH Q8H PRN PRN Reason: Nausea and Vomiting Last Admin: 12/07/23 15:19 Dose: 4 mg Documented By: JESSICA Oxybutynin Chloride (Oxybutynin Chloride Er 5 Mg Tab.Er.24) 10 mg PO DAILY [facility] Last Admin: 12/08/23 09:26 Dose: 10 mg Documented By: MOISES Phenazopyridine HCl (Phenazopyridine Hcl 200 Mg Tablet) 200 mg PO TID PRN PRN Reason: dysuric symptoms Stop: 12/09/23 14:10 Last Admin: 12/07/23 20:49 Dose: 200 mg Documented By: RC Polyethylene Glycol (Polyethylene Glycol 3350 17 Gm Powd.Pack) 17 gm PO DAILY [facility] Last Admin: 12/08/23 09:27 Dose: 17 gm Documented By: MOISES Pregabalin (Pregabalin 150 Mg Capsule) 150 mg PO TID [facility] Last Admin: 12/08/23 09:26 Dose: 150 mg Documented By: MOISES Ropinirole HCl (Ropinirole Hcl 2 Mg Tablet) 2 mg PO TID [facility] Last Admin: 12/08/23 09:26 Dose: 2 mg Documented By: MOISES Sodium Chloride (0.9 % Sodium Chloride Flush 3 Ml Syringe) [address] [facility] Last Admin: 12/08/23 09:28 Dose: 3 ml Documented By: MOISES Tamsulosin HCl (Tamsulosin Hcl 0.4 Mg Capsule) 0.4 mg PO BEDTIME [facility] Last Admin: 12/07/23 20:50 Dose: 0.4 mg Documented By: RC Labs 12/07/23 06:38 12/08/23 06:35 Labs: Laboratory Results - last 24 hr 12/08/23 06:35 Anion Gap 12 Estim Creat Clear Calc 112.1 Estimated GFR 60 Random Glucose 120 H Calcium 8.4 Microbiology Microbiology Results: Microbiology 12/06/23 13:17 Blood Culture - Preliminary Blood - Venous No growth after 24 hours. 12/06/23 13:13 Blood Culture - Preliminary Blood - Venous No growth after 24 hours. 12/06/23 Unknown Urine Culture - Final Urine clean catch - Clean Catch Midstream No growth. Assessment and Plan (1) COPD exacerbation: Status: Acute (2) MARIAN (acute kidney injury): Status: Acute Plan Pt is a 68-year-old male with a PMH significant for? paroxysmal AFib on Eliquis and amiodarone, HFrEF, lymphedema with chronic venous stasis, HTN, COPD on 3L home O2 prn, JEFFRY on CPAP, seronegative RA, HTN, overactive bladder, and obesity class 3 who presents to the ED with?multiple complaints, including intractable nausea, vomiting, difficulty breathing, weakness, and dysuria. Pt will be admitted to the hospital for treatment and further evaluation of MARIAN and COPD exacerbation in the setting UTI with sepsis that has failed outpatient therapy. 1.COPD exacerbation.. Slow to improve -continue ceftriaxone/doxycycline (3) -DuoNebs q.4 hours p.r.n. -pulse dose Solu-Medrol -supplemental O2 2.UTI -ceftriaxone(3) -Tamsulosin for urinary hesitancy; Pyridium for dysuric symptoms -Follow urine cultures 3.MARIAN -creatinine back to baseline -follow renals/divalents -continue hold diuretics 4.Paroxysmal AFib -acceptable rate control -Eliquis as ordered 5.HTN -acceptable control currently -add back therapies when clinically appropriate Full Code Eliquis Patient requires ongoing hospitalization for IV antibiotics and IV steroids to treat COPD exacerbation Quality Stroke Does the patient have a stroke diagnosis?: No VTE Prior VTE?: No VTE Risk Level:: Medical - moderate - high VTE Device Contraindication: Treatment Not Indicated VTE Drug Contraindication: N/A - Med Ordered
--- NOTE | 2023-12-08 15:08 | MHC.CM.PN ---
EMR reviewed and per MD rounds, pt is not medically cleared for discharge due to management of COPD exacerbation.
[2023-12-08] MEDS: cefTRIAXone sodium 1 GM VIAL IVPUSH (15:23)
[2023-12-08] MEDS: Doxycycline Monohydrate 100 MG CAPSULE PO (15:23)
[2023-12-08] MEDS: Tamsulosin HCL 0.4 MG CAPSULE PO (19:58)
[2023-12-08] MEDS: Atorvastatin Calcium 80 MG TABLET PO (19:58)
[2023-12-08] MEDS: Phenazopyridine HCL 200 MG TABLET PO (19:59)
[2023-12-09] VITALS (7 sets, daily range): BP systolic 109–140; BP diastolic 58–93; PULSE 56–95; RESP 12–24; TEMP 36.1–36.6; O2SAT 92–97
[2023-12-09] MEDS: Doxycycline Monohydrate 100 MG CAPSULE PO ×2 (02:59→15:33)
[2023-12-09] MEDS: methylPREDNISolone Sod Succ 125 MG/2 ML VIAL 60 MG IVPUSH ×4 (02:59→21:10)
[2023-12-09] MEDS: Phenazopyridine HCL 200 MG TABLET PO (03:08)
[2023-12-09 07:38] LABS: Anion Gap 12 (12-20); Blood Urea Nitrogen 32 mg/dL (9-16); Calcium 8.8 mg/dL (8.4-10.2); Carbon Dioxide 26 mmol/L (22-29); Chloride 107 mmol/L (96-108); Estimated Glomerular Filt Rate > 60; Glucose Random 113 mg/dL (60-115); Potassium 4.4 mmol/L (3.3-5.1); Sodium 141 mmol/L (135-145)
[2023-12-09] MEDS: Pregabalin 150 MG CAPSULE PO ×3 (09:26→21:12)
[2023-12-09] MEDS: oxyBUTYnin chloride ER 5 MG TAB.ER.24 10 MG PO (09:26)
[2023-12-09] MEDS: DULoxetine HCl 60 MG CAPSULE.DR PO (09:26)
[2023-12-09] MEDS: rOPINIRole HCL 2 MG TABLET PO ×3 (09:26→21:12)
[2023-12-09] MEDS: Amiodarone HCL 200 MG TABLET PO (09:26)
[2023-12-09] MEDS: Docusate Sodium 100 MG CAPSULE PO ×2 (09:26→21:12)
[2023-12-09] MEDS: polyethylene glycoL 3350 17 GM POWD.PACK PO (09:26)
[2023-12-09] MEDS: Finasteride 5 MG TABLET PO (09:26)
[2023-12-09] MEDS: Empagliflozin 10 MG TABLET PO (09:26)
[2023-12-09] MEDS: Apixaban 5 MG TABLET PO ×2 (09:26→21:12)
[2023-12-09] MEDS: 0.9 % Sodium Chloride Flush 3 ML SYRINGE IVFLUSH ×3 (09:27→21:13)
[2023-12-09] MEDS: Ammonium Lactate 12 % Lotion 226 GM BOTTLE 1 APPL TOPICAL ×2 (10:12→13:32)
[2023-12-09] MEDS: Umeclidinium-Vilanterol [Anoro Ellipta] 62.5-25 mcg/actuation 1 EACH INHALE (13:53)
--- NOTE | 2023-12-09 14:10 | HO.PM.IMPN ---
Subjective Subjective Date of Service: 12/09/23 Interval History: Continues to improve albeit slowly. Now ambulatory in hallway small distances with staff/O2 Review of Systems Denies chest pain Denies shortness of breath Denies nausea vomiting diarrhea Denies fever chills Physical Exam Vital Signs: Vital Signs: Last Vital Signs Temp 97.0 F 12/09/23 11:01 Pulse 95 12/09/23 11:01 Resp 20 12/09/23 11:01 BP 140/83 H 12/09/23 11:01 Pulse Ox 97 12/09/23 11:01 O2 Del Method Room Air 12/09/23 11:01 O2 Flow Rate 3 12/09/23 04:04 Oxygen Flow Rate 3 12/06/23 12:01 BMI result Body Mass Index 53.7 Const: Other: Awake alert no acute distress. Able to speak in full sentences Resp: Other: Diminished at bases with diffuse expiratory wheezes throughout Cardio: Other: No S4; positive S1-S2; no S3 murmurs rubs or gallops GI: Other: Soft nontender nondistended normoactive bowel sounds Extrem: Other: No edema bilaterally Objective Data Active Medications Acetaminophen (Acetaminophen 325 Mg Tablet) 650 mg PO Q6H PRN PRN Reason: Pain, Mild (Pain Scale 1-3), fever or headache Albuterol Sulfate (Albuterol Sulfate 90 Mcg 8 Gm Inhaler) 2 puff INHALE Q6H PRN PRN Reason: for wheezing Amiodarone HCl (Amiodarone Hcl 200 Mg Tablet) 200 mg PO DAILY [facility] Last Admin: 12/09/23 09:26 Dose: 200 mg Documented By: CASTILLO Apixaban (Apixaban 5 Mg Tablet) 5 mg PO BID [facility] Last Admin: 12/09/23 09:26 Dose: 5 mg Documented By: CASTILLO Atorvastatin Calcium (Atorvastatin Calcium 80 Mg Tablet) 80 mg PO BEDTIME [facility] Last Admin: 12/08/23 19:58 Dose: 80 mg Documented By: LAFLAMC Benzonatate (Benzonatate 100 Mg Capsule) 100 mg PO TID PRN PRN Reason: Cough Calcium Carbonate (Calcium Carbonate 750 Mg Tab.Chew) 750 mg PO Q4H PRN PRN Reason: Heartburn Ceftriaxone Sodium (Ceftriaxone Sodium 1 Gm Vial) 1 gm IVPUSH Q24H [facility] Last Admin: 12/08/23 15:23 Dose: 1 gm Documented By: BRORenetta Docusate Sodium (Docusate Sodium 100 Mg Capsule) 100 mg PO BID [facility] Last Admin: 12/09/23 09:26 Dose: 100 mg Documented By: CASTILLO Doxycycline Monohydrate (Doxycycline Monohydrate 100 Mg Capsule) 100 mg PO Q12H [facility] Last Admin: 12/09/23 02:59 Dose: 100 mg Documented By: EVIE Duloxetine HCl (Duloxetine Hcl 60 Mg Capsule.Dr) 60 mg PO DAILY [facility] Last Admin: 12/09/23 09:26 Dose: 60 mg Documented By: CASTILLO Empagliflozin (Empagliflozin 10 Mg Tablet) 10 mg PO DAILY [facility] Last Admin: 12/09/23 09:26 Dose: 10 mg Documented By: CASTILLO Finasteride (Finasteride 5 Mg Tablet) 5 mg PO DAILY [facility] Last Admin: 12/09/23 09:26 Dose: 5 mg Documented By: CASTILLO Lactic Acid (Ammonium Lactate 12 % Lotion 226 Gm Bottle) 1 appl TOPICAL DAILY [facility]; Protocol Last Admin: 12/09/23 13:32 Dose: 1 appl Documented By: CASTILLO Lactulose (Lactulose 20 Gm/30 Ml Solution) 20 gm PO BID PRN PRN Reason: constipation Magnesium Hydroxide (Milk Of Magnesia 30 Ml Oral.Susp) 30 ml PO DAILY PRN PRN Reason: Constipation Last Admin: 12/06/23 21:50 Dose: 30 ml Documented By: RC Melatonin (Melatonin 3 Mg Tablet) 6 mg PO BEDTIME PRN PRN Reason: Insomnia Last Admin: 12/07/23 20:50 Dose: 6 mg Documented By: RC Methylprednisolone Sodium Succinate (Methylprednisolone Sod Succ 125 Mg/2 Ml Vial) 60 mg IVPUSH Q6H [facility] Last Admin: 12/09/23 09:27 Dose: 60 mg Documented By: CASTILLO Umeclidinium- Vilanterol [Anoro Ellipta] 62.5-25 Mcg /Actuation 1 each INHALE RDAILY [facility] Last Admin: 12/09/23 13:53 Dose: 1 each Documented By: CASTILLO Pt Own (Tocilizumab [Actemra Actpen] 162 Mg/0.9 Ml Pen Injector) 162 mg SUBCUT SA@0900 [facility] Last Admin: 12/07/23 12:42 Dose: 162 mg Documented By: JESSICA Ondansetron HCl (Ondansetron Hcl 4 Mg/2 Ml Vial) 4 mg IVPUSH Q8H PRN PRN Reason: Nausea and Vomiting Last Admin: 12/07/23 15:19 Dose: 4 mg Documented By: JESSICA Oxybutynin Chloride (Oxybutynin Chloride Er 5 Mg Tab.Er.24) 10 mg PO DAILY [facility] Last Admin: 12/09/23 09:26 Dose: 10 mg Documented By: CASTILLO Polyethylene Glycol (Polyethylene Glycol 3350 17 Gm Powd.Pack) 17 gm PO DAILY [facility] Last Admin: 12/09/23 09:26 Dose: 17 gm Documented By: CATSILLO Pregabalin (Pregabalin 150 Mg Capsule) 150 mg PO TID [facility] Last Admin: 12/09/23 09:26 Dose: 150 mg Documented By: CASTILLO Ropinirole HCl (Ropinirole Hcl 2 Mg Tablet) 2 mg PO TID [facility] Last Admin: 12/09/23 09:26 Dose: 2 mg Documented By: CASTILLO Sodium Chloride (0.9 % Sodium Chloride Flush 3 Ml Syringe) [address] [facility] Last Admin: 12/09/23 09:27 Dose: 3 ml Documented By: CASTILLO Tamsulosin HCl (Tamsulosin Hcl 0.4 Mg Capsule) 0.4 mg PO BEDTIME [facility] Last Admin: 12/08/23 19:58 Dose: 0.4 mg Documented By: LAFLAMC Labs 12/07/23 06:38 12/09/23 05:50 Labs: Laboratory Results - last 24 hr 12/09/23 05:50 Hold Purple Top SEE NOTE Anion Gap 12 Estim Creat Clear Calc 133.0 Estimated GFR > 60 Random Glucose 113 Calcium 8.8 Microbiology Microbiology Results: Microbiology 12/06/23 13:13 Blood Culture - Preliminary Blood - Venous Prelim: GNR Gram Stain only 12/06/23 13:17 Blood Culture - Preliminary Blood - Venous No growth after 48 hours. Assessment and Plan (1) Sepsis secondary to UTI: Status: Acute (2) MARIAN (acute kidney injury): Status: Acute (3) Paroxysmal atrial fibrillation: Status: Acute Plan Pt is a 68-year-old male with a PMH significant for? paroxysmal AFib on Eliquis and amiodarone, HFrEF, lymphedema with chronic venous stasis, HTN, COPD on 3L home O2 prn, JEFFRY on CPAP, seronegative RA, HTN, overactive bladder, and obesity class 3 who presents to the ED with?multiple complaints, including intractable nausea, vomiting, difficulty breathing, weakness, and dysuria. Pt will be admitted to the hospital for treatment and further evaluation of MARIAN and COPD exacerbation in the setting UTI with sepsis that has failed outpatient therapy. 1.COPD exacerbation.. Slow to improve -continue ceftriaxone/doxycycline (4) -DuoNebs q.4 hours p.r.n. -pulse dose Solu-Medrol -supplemental O2 2.UTI/GNR bacteremmia -ceftriaxone(4)... will consult ID -Tamsulosin for urinary hesitancy; Pyridium for dysuric symptoms -Follow urine cultures 3.MARIAN -creatinine back to baseline -follow renals/divalents -continue hold diuretics 4.Paroxysmal AFib -acceptable rate control -Eliquis as ordered 5.HTN -acceptable control currently -add back therapies when clinically appropriate Full Code Eliquis Patient requires ongoing hospitalization for IV antibiotics and IV steroids to treat COPD exacerbation Quality Stroke Does the patient have a stroke diagnosis?: No VTE Prior VTE?: No VTE Risk Level:: Medical - moderate - high VTE Device Contraindication: Treatment Not Indicated VTE Drug Contraindication: N/A - Med Ordered
[2023-12-09] MEDS: cefTRIAXone sodium 1 GM VIAL IVPUSH (15:42)
[2023-12-09] MEDS: LORazepam 1 MG TABLET PO (21:12)
[2023-12-09] MEDS: Tamsulosin HCL 0.4 MG CAPSULE PO (21:12)
[2023-12-09] MEDS: Atorvastatin Calcium 80 MG TABLET PO (21:16)
[2023-12-10] MEDS: methylPREDNISolone Sod Succ 125 MG/2 ML VIAL 60 MG IVPUSH ×4 (03:42→20:58)
[2023-12-10] MEDS: Doxycycline Monohydrate 100 MG CAPSULE PO ×2 (03:43→15:46)
[2023-12-10 04:00] VITALS: BP 129/66; PULSE 57; RESP 14; TEMP 36; O2SAT 94
[2023-12-10 06:25] LABS: MANUAL DIFF FLAG NO
[2023-12-10 06:58] LABS: Basophils Percent Auto 0.2 % (0-2); Hematocrit 49.8 % (42.0-52.0); Hemoglobin 16.8 g/dl (14.0-18.0); Imm Gran Abs Auto 0.44 X10*3/uL (0.00-0.03); Imm Gran Pct Auto 2.7 % (0.0-0.4); Lymphocytes Absolute Auto 1.4 X10*3/uL (1.2-4.9); Lymphocytes Percent Auto 8.5 % (20-40); Mean Corpuscular HGB Conc 33.7 g/dl (31.0-36.0); Mean Corpuscular Hemoglobin 34.4 pg (27.0-33.0); Mean Platelet Volume 12.2 fL (9.4-12.4); Monocytes Absolute Auto 0.8 X10*3/uL (0.1-1.2); Monocytes Percent Auto 4.8 % (2-11); Neutrophils Absolute Auto 13.5 x10*3/uL (2.0-8.3); Neutrophils Percent Auto 83.8 % (45-73); Platelet Count 139 X10*3/uL (160-400); Red Blood Count 4.88 X10*6/uL (4.60-5.80); Red Cell Distribution Width 13.9 % (11.0-16.0); White Blood Count 16.1 X10*3/uL (4.8-10.8)
[2023-12-10 06:59] LABS: Alanine Aminotransferase 51 U/L (0-40); Albumin Level 3.5 g/dL (3.5-5.0); Alkaline Phosphatase 72 U/L (39-117); Anion Gap 12 (12-20); Aspartate Amino Transferase 28 U/L (5-37); Bilirubin Total 0.8 mg/dL (0.0-1.0); Blood Urea Nitrogen 29 mg/dL (9-16); Calcium 8.9 mg/dL (8.4-10.2); Carbon Dioxide 25 mmol/L (22-29); Chloride 107 mmol/L (96-108); Creatinine Clr Calc Pharmacy 141.4; Estimated Glomerular Filt Rate > 60; Glucose Fasting 119 mg/dL (60-99); Potassium 5.1 mmol/L (3.3-5.1); Sodium 139 mmol/L (135-145); Total Protein 6.4 g/dL (6.5-8.0)
[2023-12-10 07:15] VITALS: BP 148/70; PULSE 61; RESP 17; TEMP 36.4; O2SAT 93
--- NOTE | 2023-12-10 07:24 | P.CDIM_ITS ---
PROVIDER RESPONSE TEXT: To clarify, the appropriate diagnosis supported by the clinical indicators: Sepsis was not present on admission and is ruled out QUERY TEXT: PHYSICIAN'S DOCUMENTATION REQUEST Date of Query: 12/09/2023 09:04 AM EDT Patient Name: Dinh Craven Admit Date: 12/06/2023 Dear David Peterson DO, A review of the medical record indicates additional documentation may be needed. Please review below and update the documentation accordingly. Clinical Indicators: H&P: Patient will be admitted to the hospital for treatment of MARIAN and COPD in the setting of UTI wit h Sepsis. WBC 16.7 LA 1.8 HR 103 RR TEMP 96.9 Ceftriaxone, Doxycycline, Albuterol, Dx: COPD Exacerbation, Acute kidney injury Please clarify based on the above if: Sepsis was present on admission Sepsis was not present on admission and is ruled out Other (explain) Clinically unable to determine (explain) Thank you, Ember Colvin, CCS, CDIS Use of terms such as suspected, likely, concern for, or probable (associated with a specific diagnosi s that is being evaluated, monitored, or treated as if it exists) are acceptable and can be coded in the inpatient se tting, when documented at the time of discharge. Please use your independent medical judgment in providing your response. THIS QUERY IS PART OF THE PERMANENT MEDICAL RECORD
[2023-12-10] MEDS: 0.9 % Sodium Chloride Flush 3 ML SYRINGE IVFLUSH ×2 (09:07→15:46)
[2023-12-10] MEDS: Finasteride 5 MG TABLET PO (09:09)
[2023-12-10] MEDS: Amiodarone HCL 200 MG TABLET PO (09:09)
[2023-12-10] MEDS: Empagliflozin 10 MG TABLET PO (09:09)
[2023-12-10] MEDS: rOPINIRole HCL 2 MG TABLET PO ×3 (09:09→21:04)
[2023-12-10] MEDS: oxyBUTYnin chloride ER 5 MG TAB.ER.24 10 MG PO (09:09)
[2023-12-10] MEDS: Apixaban 5 MG TABLET PO ×2 (09:09→21:03)
[2023-12-10] MEDS: DULoxetine HCl 60 MG CAPSULE.DR PO (09:09)
[2023-12-10] MEDS: Docusate Sodium 100 MG CAPSULE PO ×2 (09:10→21:03)
[2023-12-10] MEDS: Pregabalin 150 MG CAPSULE PO ×3 (09:10→21:04)
[2023-12-10] MEDS: polyethylene glycoL 3350 17 GM POWD.PACK PO (09:10)
[2023-12-10] MEDS: Umeclidinium-Vilanterol [Anoro Ellipta] 62.5-25 mcg/actuation 1 EACH INHALE (09:13)
[2023-12-10 09:20] VITALS: BP 148/70; PULSE 61; O2SAT 93
--- NOTE | 2023-12-10 13:22 | MHC.CM.PN ---
Per rounds and EMR review, pt is still requiring acute care for COPD, being treated with IV ABX and IV Steriods. CM will follow and assist with DC plan.
--- NOTE | 2023-12-10 13:30 | P.PNIM_ITS ---
Subjective Subjective Date of Service: 12/10/23 Interval History: No acute issues overnight. Breathing continues to improve Review of Systems Denies chest pain Denies shortness of breath Denies nausea vomiting diarrhea Denies fever chills Physical Exam 2 Vital Signs: Vital Signs: Last Vital Signs Temp 97.6 F 12/10/23 07:15 Pulse 61 12/10/23 09:20 Resp 17 12/10/23 07:15 BP 148/70 H 12/10/23 09:20 Pulse Ox 93 12/10/23 09:20 O2 Del Method Room Air 12/10/23 07:15 O2 Flow Rate 3 12/09/23 20:06 Oxygen Flow Rate 3 12/06/23 12:01 BMI result Body Mass Index 53.7 Const: Other: Awake alert no acute distress. Able to speak in full sentences Resp: Other: Diminished at bases with diffuse expiratory wheezes throughout Cardio: Other: No S4; positive S1-S2; no S3 murmurs rubs or gallops GI: Other: Soft nontender nondistended normoactive bowel sounds Extrem: Other: No edema bilaterally Objective Data Active Medications Acetaminophen (Acetaminophen 325 Mg Tablet) 650 mg PO Q6H PRN PRN Reason: Pain, Mild (Pain Scale 1-3), fever or headache Albuterol Sulfate (Albuterol Sulfate 90 Mcg 8 Gm Inhaler) 2 puff INHALE Q6H PRN PRN Reason: for wheezing Amiodarone HCl (Amiodarone Hcl 200 Mg Tablet) 200 mg PO DAILY [facility] Last Admin: 12/10/23 09:09 Dose: 200 mg Documented By: JESSICA Apixaban (Apixaban 5 Mg Tablet) 5 mg PO BID [facility] Last Admin: 12/10/23 09:09 Dose: 5 mg Documented By: JESSICA Atorvastatin Calcium (Atorvastatin Calcium 80 Mg Tablet) 80 mg PO BEDTIME [facility] Last Admin: 12/09/23 21:16 Dose: 80 mg Documented By: LEIDA Benzonatate (Benzonatate 100 Mg Capsule) 100 mg PO TID PRN PRN Reason: Cough Calcium Carbonate (Calcium Carbonate 750 Mg Tab.Chew) 750 mg PO Q4H PRN PRN Reason: Heartburn Ceftriaxone Sodium (Ceftriaxone Sodium 1 Gm Vial) 1 gm IVPUSH Q24H [facility] Last Admin: 12/09/23 15:42 Dose: 1 gm Documented By: CASTILLO Docusate Sodium (Docusate Sodium 100 Mg Capsule) 100 mg PO BID [facility] Last Admin: 12/10/23 09:10 Dose: 100 mg Documented By: JESSICA Doxycycline Monohydrate (Doxycycline Monohydrate 100 Mg Capsule) 100 mg PO Q12H [facility] Last Admin: 12/10/23 03:43 Dose: 100 mg Documented By: LEIDA Duloxetine HCl (Duloxetine Hcl 60 Mg Capsule.Dr) 60 mg PO DAILY [facility] Last Admin: 12/10/23 09:09 Dose: 60 mg Documented By: JESSICA Empagliflozin (Empagliflozin 10 Mg Tablet) 10 mg PO DAILY [facility] Last Admin: 12/10/23 09:09 Dose: 10 mg Documented By: JESSICA Finasteride (Finasteride 5 Mg Tablet) 5 mg PO DAILY [facility] Last Admin: 12/10/23 09:09 Dose: 5 mg Documented By: JESSICA Lactic Acid (Ammonium Lactate 12 % Lotion 226 Gm Bottle) 1 appl TOPICAL DAILY [facility]; Protocol Last Admin: 12/09/23 13:32 Dose: 1 appl Documented By: CASTILLO Lactulose (Lactulose 20 Gm/30 Ml Solution) 20 gm PO BID PRN PRN Reason: constipation Lorazepam (Lorazepam 1 Mg Tablet) 1 mg PO BEDTIME [facility] Last Admin: 12/09/23 21:12 Dose: 1 mg Documented By: LEIDA Magnesium Hydroxide (Milk Of Magnesia 30 Ml Oral.Susp) 30 ml PO DAILY PRN PRN Reason: Constipation Last Admin: 12/06/23 21:50 Dose: 30 ml Documented By: RC Melatonin (Melatonin 3 Mg Tablet) 6 mg PO BEDTIME PRN PRN Reason: Insomnia Last Admin: 12/07/23 20:50 Dose: 6 mg Documented By: RC Methylprednisolone Sodium Succinate (Methylprednisolone Sod Succ 125 Mg/2 Ml Vial) 60 mg IVPUSH Q6H [facility] Last Admin: 12/10/23 09:13 Dose: 60 mg Documented By: JESSICA Umeclidinium- Vilanterol [Anoro Ellipta] 62.5-25 Mcg /Actuation 1 each INHALE RDAILY [facility] Last Admin: 12/10/23 09:13 Dose: 1 each Documented By: JESSICA Pt Own (Tocilizumab [Actemra Actpen] 162 Mg/0.9 Ml Pen Injector) 162 mg SUBCUT SA@0900 [facility] Last Admin: 12/07/23 12:42 Dose: 162 mg Documented By: JESSICA Ondansetron HCl (Ondansetron Hcl 4 Mg/2 Ml Vial) 4 mg IVPUSH Q8H PRN PRN Reason: Nausea and Vomiting Last Admin: 12/07/23 15:19 Dose: 4 mg Documented By: JESSICA Oxybutynin Chloride (Oxybutynin Chloride Er 5 Mg Tab.Er.24) 10 mg PO DAILY [facility] Last Admin: 12/10/23 09:09 Dose: 10 mg Documented By: JESSICA Polyethylene Glycol (Polyethylene Glycol 3350 17 Gm Powd.Pack) 17 gm PO DAILY [facility] Last Admin: 12/10/23 09:10 Dose: 17 gm Documented By: JESSICA Pregabalin (Pregabalin 150 Mg Capsule) 150 mg PO TID [facility] Last Admin: 12/10/23 09:10 Dose: 150 mg Documented By: JESSICA Ropinirole HCl (Ropinirole Hcl 2 Mg Tablet) 2 mg PO TID [facility] Last Admin: 12/10/23 09:09 Dose: 2 mg Documented By: JESSICA Sodium Chloride (0.9 % Sodium Chloride Flush 3 Ml Syringe) 3 ml IVFLUSH QSHIFT [facility] Last Admin: 12/10/23 09:07 Dose: 3 ml Documented By: JESSICA Tamsulosin HCl (Tamsulosin Hcl 0.4 Mg Capsule) 0.4 mg PO BEDTIME [facility] Last Admin: 12/09/23 21:12 Dose: 0.4 mg Documented By: CHANDUMAR Labs 12/10/23 05:21 12/10/23 05:21 Labs: Laboratory Results - last 24 hr 12/10/23 05:21 MCV 102.0 H MCH 34.4 H MCHC 33.7 RDW 13.9 Plt Count 139 L D MPV 12.2 Immature Gran % (Auto) 2.7 H Neut % (Auto) 83.8 H Lymph % (Auto) 8.5 L [place] % (Auto) 4.8 Eos % (Auto) 0.0 Baso % (Auto) 0.2 Lymph # (Auto) 1.4 [place] # (Auto) 0.8 Eos # (Auto) 0.0 Baso # (Auto) 0.0 Abs Immat Gran (auto) 0.44 H Absolute Neuts (auto) 13.5 H Absolute Nucleated RBC 0.000 Nucleated RBC % (auto) 0.0 Anion Gap 12 Estim Creat Clear Calc 141.4 Estimated GFR > 60 Fasting Glucose 119 H Calcium 8.9 Total Bilirubin 0.8 AST 28 ALT 51 H Alkaline Phosphatase 72 Total Protein 6.4 L Albumin 3.5 Microbiology Microbiology Results: Microbiology 12/06/23 13:13 Blood Culture - Preliminary Blood - Venous Gram negative efrain Assessment and Plan (1) COPD exacerbation: Status: Acute (2) MARIAN (acute kidney injury): Status: Acute (3) E coli bacteremia: Status: Acute Plan Pt is a 68-year-old male with a PMH significant for? paroxysmal AFib on Eliquis and amiodarone, HFrEF, lymphedema with chronic venous stasis, HTN, COPD on 3L home O2 prn, JEFRFY on CPAP, seronegative RA, HTN, overactive bladder, and obesity class 3 who presents to the ED with?multiple complaints, including intractable nausea, vomiting, difficulty breathing, weakness, and dysuria. Pt will be admitted to the hospital for treatment and further evaluation of MARIAN and COPD exacerbation in the setting UTI with sepsis that has failed outpatient therapy. 1.COPD exacerbation.. Slow to improve -continue ceftriaxone/doxycycline (5) -DuoNebs q.4 hours p.r.n. -pulse dose Solu-Medrol -supplemental O2 2.UTI/GNR bacteremmia -ceftriaxone(4)... Two weeks of oral Ceftin upon discharge -Tamsulosin for urinary hesitancy; Pyridium for dysuric symptoms -Follow urine cultures 3.MARIAN -creatinine back to baseline -follow renals/divalents -continue hold diuretics 4.Paroxysmal AFib -acceptable rate control -Eliquis as ordered 5.HTN -acceptable control currently -add back therapies when clinically appropriate Full Code Eliquis Patient requires ongoing hospitalization for IV antibiotics and IV steroids to treat COPD exacerbation Quality Stroke Does the patient have a stroke diagnosis?: No VTE Prior VTE?: No VTE Risk Level:: Medical - moderate - high VTE Device Contraindication: Treatment Not Indicated VTE Drug Contraindication: N/A - Med Ordered
[2023-12-10 15:26] VITALS: BP 164/88; PULSE 80; RESP 17; TEMP 36.3; O2SAT 96
[2023-12-10] MEDS: cefTRIAXone sodium 1 GM VIAL IVPUSH (15:43)
[2023-12-10 19:24] VITALS: BP 137/68; PULSE 63; RESP 20; TEMP 36.2; O2SAT 95
[2023-12-10] MEDS: Atorvastatin Calcium 80 MG TABLET PO (21:03)
[2023-12-10] MEDS: LORazepam 1 MG TABLET PO (21:04)
[2023-12-10] MEDS: Tamsulosin HCL 0.4 MG CAPSULE PO (21:04)
[2023-12-10 23:19] VITALS: BP 144/75; PULSE 62; RESP 20; TEMP 36.6; O2SAT 94
[2023-12-10] MEDS: Phenazopyridine HCL 100 MG TABLET PO (23:27)
[2023-12-11] MEDS: 0.9 % Sodium Chloride Flush 3 ML SYRINGE IVFLUSH ×4 (00:30→21:23)
[2023-12-11] MEDS: methylPREDNISolone Sod Succ 125 MG/2 ML VIAL 60 MG IVPUSH ×4 (03:59→21:23)
[2023-12-11] MEDS: Doxycycline Monohydrate 100 MG CAPSULE PO ×2 (04:00→15:26)
[2023-12-11 06:19] LABS: MANUAL DIFF FLAG NO
[2023-12-11 06:24] LABS: Basophils Percent Auto 0.3 % (0-2); Hematocrit 48.4 % (42.0-52.0); Hemoglobin 16.6 g/dl (14.0-18.0); Imm Gran Abs Auto 0.75 X10*3/uL (0.00-0.03); Imm Gran Pct Auto 4.8 % (0.0-0.4); Lymphocytes Absolute Auto 1.1 X10*3/uL (1.2-4.9); Lymphocytes Percent Auto 7.1 % (20-40); Mean Corpuscular HGB Conc 34.3 g/dl (31.0-36.0); Mean Corpuscular Hemoglobin 34.9 pg (27.0-33.0); Mean Corpuscular Volume 101.9 fL (80.0-98.0); Mean Platelet Volume 12.3 fL (9.4-12.4); Monocytes Absolute Auto 0.9 X10*3/uL (0.1-1.2); Monocytes Percent Auto 5.6 % (2-11); Neutrophils Absolute Auto 12.8 x10*3/uL (2.0-8.3); Neutrophils Percent Auto 82.2 % (45-73); Platelet Count 124 X10*3/uL (160-400); Red Blood Count 4.75 X10*6/uL (4.60-5.80); Red Cell Distribution Width 13.9 % (11.0-16.0); White Blood Count 15.6 X10*3/uL (4.8-10.8)
[2023-12-11 06:43] LABS: Alanine Aminotransferase 63 U/L (0-40); Albumin Level 3.2 g/dL (3.5-5.0); Alkaline Phosphatase 63 U/L (39-117); Anion Gap 10 (12-20); Aspartate Amino Transferase 27 U/L (5-37); Bilirubin Total 0.8 mg/dL (0.0-1.0); Blood Urea Nitrogen 25 mg/dL (9-16); Calcium 8.6 mg/dL (8.4-10.2); Carbon Dioxide 24 mmol/L (22-29); Chloride 107 mmol/L (96-108); Creatinine Clr Calc Pharmacy 135.7; Estimated Glomerular Filt Rate > 60; Glucose Fasting 127 mg/dL (60-99); Potassium 4.8 mmol/L (3.3-5.1); Sodium 136 mmol/L (135-145); Total Protein 5.9 g/dL (6.5-8.0)
[2023-12-11 07:16] VITALS: BP 116/87; PULSE 83; RESP 20; TEMP 36.4; O2SAT 96
[2023-12-11] MEDS: polyethylene glycoL 3350 17 GM POWD.PACK PO (08:15)
[2023-12-11] MEDS: Empagliflozin 10 MG TABLET PO (08:16)
[2023-12-11] MEDS: Finasteride 5 MG TABLET PO (08:16)
[2023-12-11] MEDS: Pregabalin 150 MG CAPSULE PO ×3 (08:16→21:23)
[2023-12-11] MEDS: DULoxetine HCl 60 MG CAPSULE.DR PO (08:16)
[2023-12-11] MEDS: Docusate Sodium 100 MG CAPSULE PO ×2 (08:16→21:23)
[2023-12-11] MEDS: oxyBUTYnin chloride ER 5 MG TAB.ER.24 10 MG PO (08:16)
[2023-12-11] MEDS: Apixaban 5 MG TABLET PO ×2 (08:16→21:23)
[2023-12-11] MEDS: Amiodarone HCL 200 MG TABLET PO (08:16)
[2023-12-11] MEDS: rOPINIRole HCL 2 MG TABLET PO ×3 (08:16→21:23)
[2023-12-11] MEDS: Ammonium Lactate 12 % Lotion 226 GM BOTTLE 1 APPL TOPICAL (08:19)
--- NOTE | 2023-12-11 10:16 | P.F2F_ITS ---
Service Date Service Date: 12/11/23 Encounter Date of encounter: 12/11/23 Reasons for Services Signs and symptoms assessed: physical deconditioning Reason for physical therapy: home safety and mobility and therapeutic exercises Homebound: Leaving the home is medically contraindicated at this time without the asist of a device and/or another person due th the listed conditions above and below. Reason homebound: unsteady gait / fall risk Certification: Based on the above findings, I certify that this patient is confined to the home and needs intermittent correction care, physical therapy and/or speech therapy, or continues to need occupational therapy. The patient is under my care, and I have initiated the establishment of the plan of care. The patient will be followed by a physician who will periodically review the plan of care. Time Spent With Patient Time: Total time managing care of this patient today ____ minutes.
--- NOTE | 2023-12-11 12:10 | HO.PM.IMPN ---
Subjective Subjective Date of Service: 12/11/23 Interval History: feels mild improvement reporting dyspnea with exertion and requiring O2 but overall better no other overnight events Physical Exam Vital Signs: Vital Signs: Last Vital Signs Temp 97.5 F 12/11/23 07:16 Pulse 83 12/11/23 07:16 Resp 20 12/11/23 07:16 BP 116/87 12/11/23 07:16 Pulse Ox 96 12/11/23 07:16 O2 Del Method Nasal Cannula 12/11/23 07:16 O2 Flow Rate 3 12/11/23 07:16 Oxygen Flow Rate 3 12/06/23 12:01 BMI result Body Mass Index 53.7 Const: Other: Constitutional : Awake, interactive, not in distress Neck : Normal inspection, Supple Cardiovascular : RRR, no JVP, chronic non-pitting bilateral lower extremity edema Respiratory : fair bilateral air entry, fine crackles, expiratory wheezes or rhonchi, On O2 supplement Gastrointestinal: soft, lax, Normal bowel sounds, Non tender Skin : Warm, Dry, dry skin lower extremities , small dry wounds with no drainage Neurological : Alert & oriented x3, No focal deficit Objective Data Active Medications Acetaminophen (Acetaminophen 325 Mg Tablet) 650 mg PO Q6H PRN PRN Reason: Pain, Mild (Pain Scale 1-3), fever or headache Albuterol Sulfate (Albuterol Sulfate 90 Mcg 8 Gm Inhaler) 2 puff INHALE Q6H PRN PRN Reason: for wheezing Amiodarone HCl (Amiodarone Hcl 200 Mg Tablet) 200 mg PO DAILY [facility] Last Admin: 12/11/23 08:16 Dose: 200 mg Documented By: MIRZA Apixaban (Apixaban 5 Mg Tablet) 5 mg PO BID [facility] Last Admin: 12/11/23 08:16 Dose: 5 mg Documented By: MIRZA Atorvastatin Calcium (Atorvastatin Calcium 80 Mg Tablet) 80 mg PO BEDTIME [facility] Last Admin: 12/10/23 21:03 Dose: 80 mg Documented By: NAUMOC Benzonatate (Benzonatate 100 Mg Capsule) 100 mg PO TID PRN PRN Reason: Cough Calcium Carbonate (Calcium Carbonate 750 Mg Tab.Chew) 750 mg PO Q4H PRN PRN Reason: Heartburn Ceftriaxone Sodium (Ceftriaxone Sodium 1 Gm Vial) 1 gm IVPUSH Q24H [facility] Last Admin: 12/10/23 15:43 Dose: 1 gm Documented By: JESSICA Docusate Sodium (Docusate Sodium 100 Mg Capsule) 100 mg PO BID [facility] Last Admin: 12/11/23 08:16 Dose: 100 mg Documented By: MIRZA Doxycycline Monohydrate (Doxycycline Monohydrate 100 Mg Capsule) 100 mg PO Q12H [facility] Last Admin: 12/11/23 04:00 Dose: 100 mg Documented By: JOSH Duloxetine HCl (Duloxetine Hcl 60 Mg Capsule.Dr) 60 mg PO DAILY [facility] Last Admin: 12/11/23 08:16 Dose: 60 mg Documented By: MIRZA Finasteride (Finasteride 5 Mg Tablet) 5 mg PO DAILY [facility] Last Admin: 12/11/23 08:16 Dose: 5 mg Documented By: MIRZA Lactic Acid (Ammonium Lactate 12 % Lotion 226 Gm Bottle) 1 appl TOPICAL DAILY [facility]; Protocol Last Admin: 12/11/23 08:19 Dose: 1 appl Documented By: MIRZA Lactulose (Lactulose 20 Gm/30 Ml Solution) 20 gm PO BID PRN PRN Reason: constipation Lorazepam (Lorazepam 1 Mg Tablet) 1 mg PO BEDTIME [facility] Last Admin: 12/10/23 21:04 Dose: 1 mg Documented By: JOSH Magnesium Hydroxide (Milk Of Magnesia 30 Ml Oral.Susp) 30 ml PO DAILY PRN PRN Reason: Constipation Last Admin: 12/06/23 21:50 Dose: 30 ml Documented By: RC Melatonin (Melatonin 3 Mg Tablet) 6 mg PO BEDTIME PRN PRN Reason: Insomnia Last Admin: 12/07/23 20:50 Dose: 6 mg Documented By: RC Methylprednisolone Sodium Succinate (Methylprednisolone Sod Succ 125 Mg/2 Ml Vial) 60 mg IVPUSH Q6H [facility] Last Admin: 12/11/23 08:17 Dose: 60 mg Documented By: MIRZA Umeclidinium- Vilanterol [Anoro Ellipta] 62.5-25 Mcg /Actuation 1 each INHALE RDAILY [facility] Last Admin: 12/10/23 09:13 Dose: 1 each Documented By: JESSICA Pt Own (Tocilizumab [Actemra Actpen] 162 Mg/0.9 Ml Pen Injector) 162 mg SUBCUT SA@0900 [facility] Last Admin: 12/07/23 12:42 Dose: 162 mg Documented By: JESSICA Ondansetron HCl (Ondansetron Hcl 4 Mg/2 Ml Vial) 4 mg IVPUSH Q8H PRN PRN Reason: Nausea and Vomiting Last Admin: 12/07/23 15:19 Dose: 4 mg Documented By: JESSICA Oxybutynin Chloride (Oxybutynin Chloride Er 5 Mg Tab.Er.24) 10 mg PO DAILY [facility] Last Admin: 12/11/23 08:16 Dose: 10 mg Documented By: MIRZA Phenazopyridine HCl (Phenazopyridine Hcl 100 Mg Tablet) 100 mg PO TIDWM PRN PRN Reason: bladder spasm Stop: 12/12/23 22:03 Last Admin: 12/10/23 23:27 Dose: 100 mg Documented By: JOSH Polyethylene Glycol (Polyethylene Glycol 3350 17 Gm Powd.Pack) 17 gm PO DAILY [facility] Last Admin: 12/11/23 08:15 Dose: 17 gm Documented By: MIRZA Pregabalin (Pregabalin 150 Mg Capsule) 150 mg PO TID [facility] Last Admin: 12/11/23 08:16 Dose: 150 mg Documented By: MIRZA Ropinirole HCl (Ropinirole Hcl 2 Mg Tablet) 2 mg PO TID [facility] Last Admin: 12/11/23 08:16 Dose: 2 mg Documented By: MIRZA Sodium Chloride (0.9 % Sodium Chloride Flush 3 Ml Syringe) 3 ml IVFLUSH QSHIFT [facility] Last Admin: 12/11/23 08:17 Dose: 3 ml Documented By: MIRZA Tamsulosin HCl (Tamsulosin Hcl 0.4 Mg Capsule) 0.4 mg PO BEDTIME [facility] Last Admin: 12/10/23 21:04 Dose: 0.4 mg Documented By: JOSH Labs 12/11/23 05:38 12/11/23 05:38 Labs: Laboratory Results - last 24 hr 12/11/23 05:38 MCV 101.9 H MCH 34.9 H MCHC 34.3 RDW 13.9 Plt Count 124 L MPV 12.3 Immature Gran % (Auto) 4.8 H Neut % (Auto) 82.2 H Lymph % (Auto) 7.1 L [place] % (Auto) 5.6 Eos % (Auto) 0.0 Baso % (Auto) 0.3 Lymph # (Auto) 1.1 L [place] # (Auto) 0.9 Eos # (Auto) 0.0 Baso # (Auto) 0.0 Abs Immat Gran (auto) 0.75 H Absolute Neuts (auto) 12.8 H Absolute Nucleated RBC 0.000 Nucleated RBC % (auto) 0.0 Anion Gap 10 L Estim Creat Clear Calc 135.7 Estimated GFR > 60 Fasting Glucose 127 H Calcium 8.6 Total Bilirubin 0.8 AST 27 ALT 63 H Alkaline Phosphatase 63 Total Protein 5.9 L Albumin 3.2 L Microbiology Microbiology Results: Microbiology 12/06/23 13:13 Blood Culture - Final Blood - Venous Escherichia coli 12/09/23 15:25 Blood Culture - Preliminary Blood - Venous No growth after 24 hours. 12/09/23 15:24 Blood Culture - Preliminary Blood - Venous No growth after 24 hours. Assessment and Plan (1) E coli bacteremia: Status: Acute (2) COPD exacerbation: Status: Acute (3) Sepsis secondary to UTI: Status: Acute Plan Pt is a 68-year-old male with a PMH significant for? paroxysmal AFib on Eliquis and amiodarone, HFrEF, lymphedema with chronic venous stasis, HTN, COPD on 3L home O2 prn, JEFFRY on CPAP, seronegative RA, HTN, overactive bladder, and obesity class 3 who presents to the ED with?multiple complaints, including intractable nausea, vomiting, difficulty breathing, weakness, and dysuria. Pt will be admitted to the hospital for treatment and further evaluation of MARIAN and COPD exacerbation in the setting UTI with sepsis that has failed outpatient therapy. # Acute COPD exacerbation Slow to improve continue ceftriaxone/doxycycline (5) DuoNebs q.4 hours p.r.n. Continue Solu-Medrol supplemental O2 # UTI/GNR bacteremmia ceftriaxone IV for now, Two weeks of oral Ceftin upon discharge Tamsulosin for urinary hesitancy; Pyridium for dysuric symptoms pending final blood culture To finish 2 weeks Abx # MARIAN creatinine back to baseline follow renals/divalents continue hold diuretics # Paroxysmal AFib acceptable rate control Eliquis as ordered # HTN acceptable control currently add back therapies when clinically appropriate Full Code Eliquis Patient requires ongoing hospitalization for IV antibiotics and IV steroids to treat COPD exacerbation pending final cultures for bacteremia Quality Stroke Does the patient have a stroke diagnosis?: No VTE Prior VTE?: No VTE Risk Level:: Medical - moderate - high VTE Device Contraindication: Treatment Not Indicated VTE Drug Contraindication: N/A - Med Ordered
[2023-12-11 15:15] VITALS: BP 131/69; PULSE 69; RESP 20; TEMP 36.9; O2SAT 99
[2023-12-11] MEDS: Phenazopyridine HCL 100 MG TABLET PO ×2 (15:25→21:28)
[2023-12-11] MEDS: cefTRIAXone sodium 1 GM VIAL IVPUSH (15:27)
[2023-12-11] MEDS: Umeclidinium-Vilanterol [Anoro Ellipta] 62.5-25 mcg/actuation 1 EACH INHALE (15:34)
[2023-12-11 20:03] VITALS: BP 131/71; PULSE 66; RESP 18; TEMP 36.8; O2SAT 95
[2023-12-11] MEDS: Tamsulosin HCL 0.4 MG CAPSULE PO (21:23)
[2023-12-11] MEDS: Atorvastatin Calcium 80 MG TABLET PO (21:23)
[2023-12-11] MEDS: LORazepam 1 MG TABLET PO (21:23)
[2023-12-12] VITALS: BP 146/76; PULSE 64; RESP 20; TEMP 36.8; O2SAT 97
[2023-12-12] MEDS: Doxycycline Monohydrate 100 MG CAPSULE PO (03:48)
[2023-12-12] MEDS: methylPREDNISolone Sod Succ 125 MG/2 ML VIAL 60 MG IVPUSH ×2 (03:48→08:41)
[2023-12-12 06:34] LABS: MANUAL DIFF FLAG NO
[2023-12-12 06:55] LABS: Basophils Absolute Auto 0.1 X10*3/uL (0.0-0.2); Basophils Percent Auto 0.4 % (0-2); Hematocrit 51.3 % (42.0-52.0); Hemoglobin 17.6 g/dl (14.0-18.0); Imm Gran Abs Auto 0.72 X10*3/uL (0.00-0.03); Imm Gran Pct Auto 4.4 % (0.0-0.4); Lymphocytes Absolute Auto 0.9 X10*3/uL (1.2-4.9); Lymphocytes Percent Auto 5.6 % (20-40); Mean Corpuscular HGB Conc 34.3 g/dl (31.0-36.0); Mean Corpuscular Hemoglobin 34.4 pg (27.0-33.0); Mean Corpuscular Volume 100.2 fL (80.0-98.0); Mean Platelet Volume 11.4 fL (9.4-12.4); Monocytes Absolute Auto 0.8 X10*3/uL (0.1-1.2); Monocytes Percent Auto 4.8 % (2-11); Neutrophils Absolute Auto 13.7 x10*3/uL (2.0-8.3); Neutrophils Percent Auto 84.8 % (45-73); Platelet Count 205 X10*3/uL (160-400); Red Blood Count 5.12 X10*6/uL (4.60-5.80); Red Cell Distribution Width 13.8 % (11.0-16.0); White Blood Count 16.2 X10*3/uL (4.8-10.8)
[2023-12-12 07:03] LABS: Alanine Aminotransferase 78 U/L (0-40); Albumin Level 3.2 g/dL (3.5-5.0); Alkaline Phosphatase 64 U/L (39-117); Anion Gap 14 (12-20); Aspartate Amino Transferase 25 U/L (5-37); Bilirubin Total 0.9 mg/dL (0.0-1.0); Blood Urea Nitrogen 25 mg/dL (9-16); Calcium 8.2 mg/dL (8.4-10.2); Carbon Dioxide 19 mmol/L (22-29); Chloride 108 mmol/L (96-108); Creatinine Clr Calc Pharmacy 138.5; Estimated Glomerular Filt Rate > 60; Glucose Fasting 135 mg/dL (60-99); Potassium 4.6 mmol/L (3.3-5.1); Sodium 136 mmol/L (135-145); Total Protein 5.9 g/dL (6.5-8.0)
[2023-12-12 07:10] VITALS: BP 134/81; PULSE 72; RESP 20; TEMP 36.4; O2SAT 95
[2023-12-12] MEDS: polyethylene glycoL 3350 17 GM POWD.PACK PO (08:40)
[2023-12-12] MEDS: Docusate Sodium 100 MG CAPSULE PO (08:40)
[2023-12-12] MEDS: Finasteride 5 MG TABLET PO (08:41)
[2023-12-12] MEDS: DULoxetine HCl 60 MG CAPSULE.DR PO (08:41)
[2023-12-12] MEDS: oxyBUTYnin chloride ER 5 MG TAB.ER.24 10 MG PO (08:41)
[2023-12-12] MEDS: rOPINIRole HCL 2 MG TABLET PO (08:41)
[2023-12-12] MEDS: Pregabalin 150 MG CAPSULE PO (08:41)
[2023-12-12] MEDS: Amiodarone HCL 200 MG TABLET PO (08:41)
[2023-12-12] MEDS: Apixaban 5 MG TABLET PO (08:41)
[2023-12-12] MEDS: 0.9 % Sodium Chloride Flush 3 ML SYRINGE IVFLUSH (08:42)
[2023-12-12] MEDS: Ammonium Lactate 12 % Lotion 226 GM BOTTLE 1 APPL TOPICAL (08:42)
[2023-12-12] MEDS: Umeclidinium-Vilanterol [Anoro Ellipta] 62.5-25 mcg/actuation 1 EACH INHALE (08:57)
--- NOTE | 2023-12-12 11:04 | P.DS_ITS ---
DS: Providers Provider Date of Service: 12/12/23 Date of admission: 12/06/23 15:43 Date of discharge: 12/12/23 Primary care physician: YUMIKO Mathis Consults: 12/08/23 09:47 Consult to Wound Care Routine Reason for consultation: pressure injury DS: Diagnosis Discharge Diagnosis (1) E coli bacteremia: Status: Acute (2) COPD exacerbation: Status: Acute (3) Sepsis secondary to UTI: Status: Acute (4) MARIAN (acute kidney injury): Status: Acute DS: Summary Hospital Course Hospital Course: Admission note HPI Pt is a 68-year-old male with a PMH significant for? paroxysmal AFib on Eliquis and amiodarone, HFrEF, lymphedema with chronic venous stasis, HTN, COPD on 3L home O2 prn, JEFFRY on CPAP, seronegative RA, HTN, overactive bladder, and obesity class 3 who presents to the ED with?multiple complaints, including intractable nausea, vomiting, difficulty breathing, weakness, and dysuria. Pt reports has been experiencing polyuria and dysuria earlier in the week and was diagnosed with a UTI on 3 days prior on 12/02. Was prescribed Bactrim by Urology, the patient reports the following day began developing intractable nausea and vomiting. Was unable to eat or drink anything. Believes symptoms to be secondary to antibiotic use, so contacted Urology who switched antibiotics to Cipro. Patient reports continues to experience nausea and vomiting, and has been able to only tolerate a small amount of yogurt and fluid since this morning. Has been experiencing urinary hesitancy and significant dysuria when he is able to urinate. Patient has also had significant nonproductive cough, SOB, and MATUTE for the past 2-3 days that has not been alleviated by p.r.n. oxygen or home inhalers. States legs have been so weak that he has been unable to ambulate for the past 2 days. Also complains of constipation with last bowel movement 3-4 days ago. No chest pain or pressure. Chronic lower leg edema at baseline. No fever, chills, or abdominal pain. In the ED pt was tachycardic to 103, tachypneic up to 22, and soft BP as low as 108/53. Satting as low as 91% on RA. Labs were significant for leukocytosis 13.8, sodium 134, BUN 22 , and creatinine 1.59 (increased from previous of 1.19). Stable H&H. Lactic acid WNL at 1.8. BNP negative. UA positive for leukocyte esterase, WBCs 11-20. CXR showed streaky opacity bilateral lung bases possibly representing atelectasis. Pt was treated with ondansetron, DuoNebs, Solu-Medrol, and Mag sulfate. Pt will be admitted to the hospital for treatment and further evaluation of MARIAN and COPD exacerbation in the setting UTI with sepsis that has failed outpatient therapy. Hospital course The patient was treated for: # UTI with E.Coli bacteremmia Treated with IV Ceftriaxone with good response. Jardiance discontinued. To continue Doxazosin and Finastiride on discharge. To finish total of two weeks of Antibiotics upon discharge. 9 more days of oral Ceftin. repeated blood cultures negative. # Acute COPD exacerbation He was treated with IV steroids, nebulizers and O2 therapy along with antibiotics. he was slow to improve and wean down O2 supplement. To be discharged on tapering dose of Prednisone. supplemental O2 at home. # Acute kidney injury The patient was found to have elevated creatinine of 1.6 that improved back to baseline with holding nephrotoxic medications. To decrease Spironolactone on discharge and repeat BMP next week. to follow with his PCP. Discharge plan Decrease Spironolactone to 50 mg daily Continue Bumex 2 mg daily Continue Ceftin for 9 more days Continue Tapering dose of Prednisone To repeat blood test next week for kidney function Use home nebulizer for difficulty breathing\wheezes Time Attestation Discharge Coordination Time (in mins): 42 Quality: Safe Use of Opioids Does Pt have an Active Cancer Diagnosis on the Problem List?: No Quality: Stroke Does the patient have a stroke diagnosis?: No Physical Exam Vital Signs: Vital Signs: Last Vital Signs Temp 97.5 F 12/12/23 07:10 Pulse 72 12/12/23 07:10 Resp 20 12/12/23 07:10 BP 134/81 12/12/23 07:10 Pulse Ox 95 12/12/23 07:10 O2 Del Method Nasal Cannula 12/12/23 07:10 O2 Flow Rate 3 12/12/23 07:10 Oxygen Flow Rate 3 12/06/23 12:01 BMI result Body Mass Index 53.7 Const: Other: Constitutional : Awake, interactive, not in distress Neck : Normal inspection, Supple Cardiovascular : RRR, no JVP, chronic non-pitting bilateral lower extremity edema Respiratory : fair bilateral air entry, no crackles, no wheezes or rhonchi, On room air Gastrointestinal: soft, lax, Normal bowel sounds, Non tender Skin : Warm, Dry, dry skin lower extremities , small dry wounds with no drainage Neurological : Alert & oriented x3, No focal deficit DS: Data Data Completed and Pending Completed studies during hospitalization [Text1]: Procedures Assistance with Respiratory Ventilation, Less than 24 Consecutive Hours, Omar nuous Positive Airway Pressure (10/26/23) Introduction of Anesthetic Agent into Joints, Percutaneous Approach (10/14/22) Introduction of Anti-inflammatory into Joints, Percutaneous Approach (10/14/22) Introduction of Remdesivir Anti-infective into Peripheral Vein, Percutaneous Approach, [employer] (05/16/20) Labs on day of discharge: Laboratory Results - last 24 hr 12/12/23 05:03 WBC 16.2 H RBC 5.12 Hgb 17.6 Hct 51.3 MCV 100.2 H MCH 34.4 H MCHC 34.3 RDW 13.8 Plt Count 205 D MPV 11.4 Immature Gran % (Auto) 4.4 H Neut % (Auto) 84.8 H Lymph % (Auto) 5.6 L [place] % (Auto) 4.8 Eos % (Auto) 0.0 Baso % (Auto) 0.4 Lymph # (Auto) 0.9 L [place] # (Auto) 0.8 Eos # (Auto) 0.0 Baso # (Auto) 0.1 Abs Immat Gran (auto) 0.72 H Absolute Neuts (auto) 13.7 H Absolute Nucleated RBC 0.000 Nucleated RBC % (auto) 0.0 Sodium 136 Potassium 4.6 Chloride 108 Carbon Dioxide 19 L Anion Gap 14 BUN 25 H Creatinine 0.98 Estim Creat Clear Calc 138.5 Estimated GFR > 60 Fasting Glucose 135 H Calcium 8.2 L Total Bilirubin 0.9 AST 25 ALT 78 H Alkaline Phosphatase 64 Total Protein 5.9 L Albumin 3.2 L Preliminary micro results at discharge 12/09/23 15:24 Blood Culture - Preliminary Blood - Venous No growth after 48 hours. 12/09/23 15:25 Blood Culture - Preliminary Blood - Venous No growth after 48 hours. Imaging Chest x-ray: Radiologist's impression: ITS Impressions Chest X-Ray 12/06/23 12:48 IMPRESSION: 1. Streaky opacity bilateral lung bases potentially represent atelectasis. 2. Bilateral low lung volumes. 3. Accentuation of bronchopulmonary vascular markings. Electronically signed by: Anh Poe MD 12/06/2023 02:26 PM EDT RP Discharge Plan Discharge Anticipated Discharge Date/Time: 12/12/23 10:57 Patient Disposition: Home Health Service Discharge Diagnosis: E.Coli Bacteremia from Urine infection COPD exacerbation Acute kidney injury Referrals: Diego Augustine, [employer] ACCOUNTING CLERK-BC [Primary Care Provider] - 1 Week Discharge Medications: New prednisone 10 mg tablet See Taper PO DIRECTED Qty: 30 0RF Taper: Prednisone 40 mg daily for 3 Days and 0 Hour 30 mg daily for 3 Days and 0 Hour 20 mg daily for 3 Days and 0 Hour 10 mg daily for 3 Days and 0 Hour Rx Instructions: see taper instructions cefuroxime axetil 500 mg tablet 500 mg PO BID Qty: 18 0RF Continued atorvastatin 80 mg tablet 80 mg PO BEDTIME 90 Days Qty: 90 1RF (DME) walker [facility] See Rx Instructions .Route Qty: 1 0RF Rx Instructions: daily use (rolling sitting walker-bariatric size needed) duloxetine 60 mg capsule,delayed release(DR/EC) 60 mg PO DAILY Qty: 90 0RF finasteride 5 mg tablet 5 mg PO DAILY 90 Days Qty: 90 1RF amiodarone 200 mg tablet 200 mg PO DAILY 90 Days Qty: 90 2RF doxazosin 8 mg tablet 8 mg PO BEDTIME 90 Days Qty: 90 1RF oxybutynin chloride 10 mg tablet extended release 24hr 10 mg PO DAILY 90 Days Qty: 90 1RF Anoro Ellipta 62.5-25 mcg/actuation blister with device 1 inh PO DAILY Qty: 60 3RF ropinirole 2 mg tablet 2 mg PO TID 90 Days Qty: 270 0RF pregabalin 150 mg capsule 150 mg PO TID 90 Days Qty: 270 2RF (DME) Powered bariatric recliner See Rx Instructions .Route .MEDSUPPLY Qty: 1 0RF Rx Instructions: As directed Actemra ACTPen 162 mg/0.9 mL pen injector 162 mg subcut SA@0900 lactulose 20 gram/30 mL Solution 20 g PO BID PRN (Reason: constipation) Qty: 200 0RF albuterol sulfate 90 mcg/actuation HFA aerosol inhaler 2 puff PO Q6H PRN (Reason: for wheezing) Eliquis 5 mg tablet 5 mg PO BID Qty: 60 5RF bumetanide 1 mg tablet 2 mg PO DAILY Qty: 120 0RF Protocol: Hold for SBP< HOLD for SBP < : 90 ammonium lactate 12 % lotion 1 appl topical DAILY docusate sodium 100 mg capsule 100 mg PO BID PRN (Reason: constipation) Changed spironolactone 25 mg tablet 50 mg PO DAILY Qty: 120 0RF Discontinued ciprofloxacin HCl 500 mg tablet 500 mg PO BID 7 Days Qty: 14 0RF Jardiance 10 mg Tablet 10 mg PO DAILY Qty: 60 0RF Discharge Orders: Discharge Order (Routine); Ordered 12/12/23 Ordered By: Florina Chandler Diet: Low salt diet Activity on Discharge: As tolerated Stand Alone Forms: Patient Portal Discharge page Print Language: Ecuadorean Other Ambulatory Orders: Basic Metabolic Panel (Routine) Timeframe: 5 Days Facility: [facility] - Location: Laboratory Ordered By: Florina Chandler Care Plan Goals: Decrease Spironolactone to 50 mg daily Continue Bumex 2 mg daily Continue Ceftin for 9 more days Continue Tapering dose of Prednisone To repeat blood test next week for kidney function Use home nebulizer for difficulty breathing\wheezes Health Concerns: Antibiotics Steroids Plan of Treatment: Treating Urine infection and Bacteremia Assessment: as above
--- NOTE | 2023-12-12 11:37 | MHC.CM.PN ---
Addendum entered by Mera Dumont 12/12/23 13:11: Pt will have services from [facility], not [facility], he was active with [facility] prior to hosp stay. Original Note: Second IMM 12/12/23, Pt has been medically cleared for DC, he will go home via family transport and have home care services from [facility].
== END 2023-12-12 15:35 | disposition home health service (06) | DRG 191 ==
LOC: HO.ED 15:02 → HO.EDOVER 16:05 → HO.IMC 16:15
PROVIDERS: Hospitalist; Admitting Provider Student in an Organized Health Care Education/Training Program; Emergency Provider Emergency Medicine; PCP Nurse Practitioner Family; Visit Provider Student in an Organized Health Care Education/Training Program
DX: J44.1 Chronic obstructive pulmonary disease with (acute) exacerbation (principal); I50.22 Chronic systolic (congestive) heart failure; N39.0 Urinary tract infection, site not specified; N17.9 Acute kidney failure, unspecified; Z68.43 Body mass index [BMI] 50.0-59.9, adult; R78.81 Bacteremia; G47.33 Obstructive sleep apnea (adult) (pediatric); R11.2 Nausea with vomiting, unspecified; I89.0 Lymphedema, not elsewhere classified; E86.1 Hypovolemia; I87.8 Other specified disorders of veins; K59.00 Constipation, unspecified; I11.0 Hypertensive heart disease with heart failure; T36.95XA Adverse effect of unspecified systemic antibiotic, initial encounter; E66.813 Obesity, class 3; Z71.3 Dietary counseling and surveillance; M06.00 Rheumatoid arthritis without rheumatoid factor, unspecified site; B96.20 Unspecified Escherichia coli [E. coli] as the cause of diseases classified elsewhere; I48.0 Paroxysmal atrial fibrillation; Z99.81 Dependence on supplemental oxygen; Z20.822 Contact with and (suspected) exposure to COVID-19; Z87.891 Personal history of nicotine dependence; Z79.01 Long term (current) use of anticoagulants; Z79.899 Other long term (current) drug therapy
CPT/HCPCS: 0241U; 36415; 71045; 80048; 80053; 81001; 83605; 83880; 85025; 85027; 85610; 85652; 86140; 87040; 87077; 87086; 87088; 87186; 87205; 93005; 94640; 94660; 97116; 97161; 99285; J0696; J2405; J2919; J3475

== ENCOUNTER → 2023-12-06 12:29 | Outpatient (BNV) | payer MEDICARE, SELFPAY | PROVIDERS: Admitting Provider Student in an Organized Health Care Education/Training Program; Emergency Provider Emergency Medicine; PCP Nurse Practitioner Family; Visit Provider Internal Medicine | DX: R94.31 Abnormal electrocardiogram [ECG] [EKG] (principal) | CPT/HCPCS: 93010 ==

== ENCOUNTER → 2023-12-06 15:43 | Outpatient (BNV) | payer MEDICARE, SELFPAY | PROVIDERS: Admitting Provider Student in an Organized Health Care Education/Training Program; Emergency Provider Emergency Medicine; PCP Nurse Practitioner Family; Visit Provider Student in an Organized Health Care Education/Training Program | DX: J44.1 Chronic obstructive pulmonary disease with (acute) exacerbation (principal); N17.9 Acute kidney failure, unspecified | CPT/HCPCS: 99223; 99232; 99233; 99239; G0180 ==

== ENCOUNTER 2023-12-17 10:43 | Outpatient (REF) | payer MEDICARE, SELFPAY ==
[2023-12-17 13:37] LABS: Anion Gap 14 (12-20); Blood Urea Nitrogen 25 mg/dL (9-16); Calcium 8.7 mg/dL (8.4-10.2); Carbon Dioxide 25 mmol/L (22-29); Chloride 101 mmol/L (96-108); Estimated Glomerular Filt Rate > 60; Glucose Random 89 mg/dL (60-115); Potassium 4.6 mmol/L (3.3-5.1); Sodium 135 mmol/L (135-145)
== END 2023-12-17 10:44 | disposition home or self-care (01) ==
LOC: HO.HMGCLDS 10:43
PROVIDERS: Student in an Organized Health Care Education/Training Program; PCP Nurse Practitioner Family; Referring Provider Internal Medicine Hypertension Specialist; Visit Provider Internal Medicine Endocrinology, Diabetes & Metabolism
DX: N17.9 Acute kidney failure, unspecified (principal); B37.0 Candidal stomatitis
CPT/HCPCS: 36415; 80048; 99212

== ENCOUNTER 2023-12-17 11:12 | Outpatient (AMB) | payer MEDICARE, SELFPAY ==
--- NOTE | 2023-12-17 11:19 | AM.OFFWIN_ITS ---
Intake Vital Signs 3 12/17/23 11:23 Height 6 ft 4 in BMI Reason not done Patient refused/unable BP 130/80 Blood Pressure Location Rt brachial Position Sitting Pulse 78 Pulse Source Pulse Oximeter Temp 98.1 F Temp Source Oral Pulse Oximetry (%) 98 Oxygen Delivery Method Room Air Intake Visit Reasons: EP burn tongue due to antibiotics Intake Note: pt is here for c/o burn on tongue due to antibtiocs Patient Tobacco Use Status: Former Tobacco user Allergies No Known Allergies [No Known Allergies*] Allergy (Verified 12/06/23 12:07) Do you need a note to return to daycare/school/sports/work: No HPI HPI Comments 2 History of Present Illness0 Details Patient is a 68-year-old male complaining of pain on his tongue for the last week or so. He tells me he was just in the hospital with urosepsis and was getting antibiotics and steroids. He is still on cefuroxime and prednisone daily. He tells me that there seems to be a little film on his tongue but it is also very painful. It makes it difficult for him to eat anything that is not soft. He denies any trouble swallowing [facility] Medical History Congestive heart failure Testicular swelling Osteoarthritis of right knee Melanoma History of cardioversion Hereditary lymphedema Venous insufficiency Morbid obesity Lymphedema COPD (chronic obstructive pulmonary disease) Sensory neuropathy COVID-19 Respiratory failure with hypoxia Restrictive lung disease COPD (chronic obstructive pulmonary disease) JEFFRY on CPAP MATUTE (dyspnea on exertion) Chronic cystitis Bladder outlet obstruction Restless leg syndrome Traumatic complete tear of right rotator cuff Injury of right rotator cuff History of diverticulitis History of umbilical hernia Surgical History Hx of colonoscopy History of appendectomy History of arthroscopy of left knee Family History Father Arthritis Diabetes Mother Arthritis Kidney stones Family/Other Arthritis Sister No problems noted. Sister No problems noted. Son No problems noted. Social History Household Members: Spouse Household Members Other:: [place]ma Housing: Condominium Do you presently have visiting nurse or other home services: Yes (health care something ) Alcohol intake: current Alcohol intake frequency: 0-2 drinks per day Alcohol type: beer Comment: refusing bed alarm Patient Tobacco Use Status: Former Tobacco user Tobacco use type: Cigarette Cigarette Packs Per Day: 1 Cigarettes Per Day: 20.0 Years Smoked: 30 years e-Cigarette/Vaping Use: Never Used Second Hand Smoke Exposure: No Substance Use Type: Marijuana Advance Directives Date on File: 05/16/20 service: No Current occupational status: retired 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 Cognitive needs: No Hearing needs: No Vision needs: No Review of Systems Const All systems reviewed & are unremarkable except as noted in HPI and below Physical Exam Vital Signs: Last Vital Signs Temp 98.1 F 12/17/23 11:23 Pulse 78 12/17/23 11:23 BP 130/80 12/17/23 11:23 Pulse Ox 98 12/17/23 11:23 Oxygen Delivery Method Room Air 12/17/23 11:23 Const Other: wearing nasal cannula General: cooperative, healthy appearing, comfortable, no acute distress and well developed Orientation/consciousness: patient oriented x3 Limitations: ambulation with walker HEENT Head: Yes normal to inspection Ears: hearing grossly normal bilaterally General nose exam: Normal external nose present Face and sinus: Yes normal facial exam Mouth/tongue images: 2 1. patch of white with erythematous induration Eyes General: appearance normal, both eyes and all related structures Neck Neck: Yes normal visual inspection and Yes full ROM Resp Effort & Inspection: normal respiratory effort and able to speak in complete sentences Skin General skin exam: no rashes or lesions noted Neuro General: patient oriented x3 Extrem General: Yes normal to inspection Assessment & Plan Assessment & Plan (1) Thrush, oral: Code(s): B37.0 - Candidal stomatitis Plan: Sent viscous lidocaine for pain control and clotrimazole aaron is but as patient is still taking the steroid and will not finish for 5 more days, I did give him 1 dip fluconazole pill to take if the troches are not effective. Plan see above Medications: New 2 clotrimazole 10 mg mucous membrane .five times daily 30 tabs 0RF lidocaine HCl 2% (Lidocaine Viscous) 1 appl mucous membrane BID PRN 100 mL 0RF pain fluconazole 150 mg PO ONCE 1 day 1 tab 0RF Coding Level of Care Code Est Pt Level 4 (48541) Diagnoses Thrush, oral B37.0
[2023-12-17 11:23] VITALS: BP 130/80; PULSE 78; TEMP 36.7; O2SAT 98
== END 2023-12-17 11:57 | disposition home or self-care (01) ==
PROVIDERS: PCP Nurse Practitioner Family; Visit Provider Physician Assistant
DX: B37.0 Candidal stomatitis (principal)

== ENCOUNTER 2023-12-25 14:00 | Outpatient (RCR) | payer MEDICARE, SELFPAY ==
--- NOTE | 2023-11-25 13:58 | MHC.OT.OLE ---
[address] [phone] F: [phone] Occupational Therapy Lymphedema Evaluation Patient Name: Dinh Craven Jr Diagnosis: (B)LE lymphedema Date of Onset: Attending Provider: Lima Negron Prescribed Treatment: Follow Up Appointment: History of Current Condition: Patient is a 68 year old male with significant medical history of but not limited to CHF, melanoma, venous insufficiency, COPD, and diverticulitis with a recent hospitalization for .... on 10/2023 who was referred to skilled OT/lymphedema for (B)LE edema. 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 He is on 3Ls O2 as needed and uses a rollator for long distances and will furniture jarred while at home. He lives with his and has an adult son and daughter and grandchildren. At this time he has VNA services for his (B)LE wounds. He has c/o pain all the time and stairs are difficult for him. His main goal is to reduce pain and to be able to navigate the stairs . Significant Medical History: Congestive heart failure Testicular swelling Osteoarthritis of right knee Melanoma History of cardioversion Hereditary lymphedema Venous insufficiency Morbid obesity Lymphedema COPD (chronic obstructive pulmonary disease) Sensory neuropathy COVID-19 Respiratory failure with hypoxia Restrictive lung disease COPD (chronic obstructive pulmonary disease) JEFFRY on CPAP MATUTE (dyspnea on exertion) Chronic cystitis Bladder outlet obstruction Restless leg syndrome Traumatic complete tear of right rotator cuff Injury of right rotator cuff History of diverticulitis History of umbilical hernia Precautions/Contraindications: No neck or abdominal MLD, 3L O2 as needed Patient Goals: Stair negotiation and decrease pain Hand Dominance: Observations: Outcome Measures: Prior Level of Function and Occupation Living Situation: lives with Family and/or Social Report: , children, grandchildren Self-Long Term Support: (I)ADLs/IADLs Employment Status: Retired Leisure Activities/Hobbies: Current Level of Function and Occupation Self-Care and Home Care: min (A) ADLs/IADLs- completes cooking, cleaning Employment Status: retired Leisure Activites/Hobbies: Driving: (I) Sleeping: Vision: Balance: Pain Assessment Pain Score: 10 Pain Scale Used: Numeric (0 - 10) Pain Location and Description: 10/10 (B)LEs Aggravating Factors: Alleviating Factors: Skin and Soft Tissue Assessment Skin and Soft Tissue: Comments: weeping, small wounds on anterior of legs, papillomas, dry, purplish in color, pitting Nerve assessment Ulnar Nerve: Median Nerve: Radial Nerve: Comments: Sensory Assessment Temperature: Light Touch: Proprioception: Vibration: Comments: Lymph volume measurements Edema Assessment Upper Extremity: Lower Extremity: Comments: Dexterity Assessment Dexterity: Comments: Special Tests Comments: AROM (PROM) Strength Lower Extremity Hip Flexion: Knee Flexion: Knee Extension: Ankle Dorsiflexion: Ankle Plantarflexion: Ankle Eversion: Ankle Inversion: Comments: Cervical Flexion: Extension: Lateral Flexion: Rotation: Comments: Shoulder Flexion: Extension: Abduction: Internal Rotation: External Rotation: Comments: Flexion: Extension: Abduction: Internal Rotation: External Rotation: Comments: Elbow Flexion: Extension: Forearm Pronation: Forearm Supination: Comments: Flexion: Extension: Forearm Pronation: Forearm Supination: Comments: Wrist Flexion: Extension: Ulnar Deviation: Radial Deviation: Comments: Flexion: Extension: Ulnar Deviation: Radial Deviation: Comments: Thumb Thumb CMC Flexion: Thumb MCP Flexion: Thumb IP Flexion: Radial Abduction: Palmar Abduction: Opposition: Comments: Digits Index MCP: PIP: DIP: Long MCP: PIP: DIP: Ring MCP: PIP: DIP: Small MCP: PIP: DIP: Comments: Gross Grasp: Lateral Pinch: Two-Point Pinch: Three-Jaw Markell: Comments: Patient Education Primary Language: Dairy Nutritionist Required: No Current Knowledge: Teaching Method: Education Needs Identified on Evaluation: How did patient/family demonstrate learning? Barriers to Learning: Readiness for Learning: Who was educated? Comments: Plan of Care Assessment: Based on initial evaluation patient has stage III lower extremity lymphedema as he has weeping, open wounds (B'ly), purplish skin, papillomas and pitting edema. His current lymph volume measurements are as follows: 500.5cm (R), 512.2cm (L) a 11.7cm difference between the extremities. Currently patient presents with impaired LE ROM, impaired strength, impaired skin integrity, pain, inability to wear proper shoes and impaired performance during self care tasks. Due to the documented impairments it is recommended that patient receive skilled OT/ lymphedema services in order to promote skin integrity, decrease risk of infection, and for patient achieve her PLOF of (I) during self care tasks. Thank you for your referral. STG Duration: 2 weeks Short Term Goals: Patient will decrease lymph volume by 10% in (R)LE in order to promote skin integrity Patient will decrease lymph volume by 10% in (L)LE in order to promote skin integrity LTG Duration: 4 weeks Manager Validation Goals: Patient will be (I) with donning/doffing compression garments Patient will be (I) with skin care/hygiene routine to decrease risk of infection Patient will be (I) with HEP to increased (I) with self care tasks Frequency and Duration: The patient will be seen 4x a week for 2 weeks, decrease to 3x a week for 2 weeks Treatment Plan: Treatment Plan Comments: Skilled OT eval and treat, CDT Lymphedema Treatment Plan: Compression Bandaging Exercise: Stretching, strengthening, manual therapy Family/Caregiver Training Manual Lymphatic Drainage Referral for compression garment and instructions for donning/doffing Self Care Training: bandaging, skin care, self massage Skin Care Education Wound Care Needs Lymphedema Treatment Plan Comments: Skilled eval, treat, and CDT Electronically Signed By: CHARLEEN Boland/[place], CLT Reviewed/agree with student documentation: Therapist: Please sign and return to therapist, thank you for your referral.
== END 2024-01-22 10:33 | disposition home or self-care (01) ==
LOC: HO.OT 14:00
PROVIDERS: PCP Nurse Practitioner Family; Visit Provider Surgery Vascular Surgery
DX: I89.0 Lymphedema, not elsewhere classified (principal)
CPT/HCPCS: 97140; 97166; 97535

== ENCOUNTER 2023-12-26 13:40 | Outpatient (AMB) | payer MEDICARE, SELFPAY ==
--- NOTE | 2023-12-26 13:52 | MHC.PC.OV ---
Vital Signs 12/26/23 13:53 Height 6 ft 4 in Weight 424 lb 2 oz BMI 51.6 BP 98/66 Blood Pressure Location Lt brachial Position Sitting Pulse 112 H Pulse Source Pulse Oximeter Pulse Oximetry (%) 96 Oxygen Delivery Method Room Air Intake Visit Reasons: HDF ~ Post hospital discharge FU Allergies No Known Allergies [No Known Allergies*] Allergy (Verified 12/26/23 13:58) Medication List - Last Reconciled 12/26/23 by Vale Neves MD albuterol sulfate 90 mcg/actuation 2 puffs PO Q6H PRN amiodarone 200 mg PO DAILY 90 days ammonium lactate 12% 1 appl topical DAILY Anoro Ellipta 62.5-25 mcg/actuation (umeclidinium-vilanterol) 1 inh PO DAILY NS apixaban (Eliquis) 5 mg PO BID atorvastatin 80 mg PO BEDTIME 90 days bumetanide 2 mg (2 x 1 mg) PO DAILY clotrimazole 10 mg mucous membrane .five times daily docusate sodium 100 mg PO BID PRN doxazosin 8 mg PO BEDTIME 90 days duloxetine 60 mg PO DAILY finasteride 5 mg PO DAILY 90 days lactulose 20 grams (30 mL) PO BID PRN lidocaine HCl 2% (Lidocaine Viscous) 1 appl mucous membrane BID PRN oxybutynin chloride ER 10 mg PO DAILY 90 days phenazopyridine 100 mg PO TIDWM PRN [Powered bariatric recliner As directed] pregabalin 150 mg PO TID 90 days ropinirole 2 mg PO TID 90 days spironolactone 50 mg (2 x 25 mg) PO DAILY tocilizumab (Actemra ACTPen) 162 mg subcut SA@0900 walker daily use (rolling sitting walker-bariatric size needed) Tobacco use date assessed: 12/26/23 Fall risk assessment: No Falls in past year Last assessed Fall Risk: 12/26/23 Dental Screening Dental Screen Date: 12/26/23 Did you have a dental visit in the last 12 months?: Yes Did you have a dental problem in the last 6 months where you did not have access to dental care?: No Was dental information given to patient?: Patient has dentist HPI HDF ~ Post hospital discharge FU HPI Details Patient is 68-year-old gentleman with past medical history of paroxysmal atrial fibrillation on Eliquis and amiodarone, heart failure, lymphedema with chronic venous stasis, hypertension, COPD on 3 L of oxygen at home as needed, obstructive sleep apnea on CPAP, seronegative rheumatoid arthritis, overactive bladder, obesity, presented to emergency room with a chief complaint of nausea vomiting and difficulty breathing along with weakness and dysuria [facility] 12/06/2023 In emergency room patient was tachycardic to 103 beats per minute tachypneic to 22 respirations per minute Blood pressure was low 108 /53. Pulse ox 91% on room air Labs showed leukocytosis 13.8 Creatinine of 1.59 increased from previous 1.19. H&H was stable lactic acid 1.8 BNP negative UA positive for leuk esterase Chest x-ray showed streaky opacity bilateral lung bases possibly representing atelectasis. Patient was treated with DuoNebs Solu-Medrol He was admitted in hospital for further evaluation for MARIAN and COPD exacerbation in the setting of UTI with sepsis UTI was treated with IV ceftriaxone Jardiance was discontinued Doxazosin and finasteride to continue on discharge and to finish 2 weeks of antibiotic Blood cultures were negative For COPD he was discharged with tapering dose of prednisone Acute kidney injury improved His spironolactone was decreased at discharge Patient was discharged on 12/12/2023 He needs repeat labs to ensure normal kidney function He came in today for follow-up appointment I see that his blood pressure is running low I am cutting his spironolactone further to 25 mg once a day He has appointment coming up with storage battery charger for cardiac follow-up Complaining of feeling tired He has also developed couple of sores on his buttock for that I have sent Silvadene cream to be applied b.i.d. until healed Patient is suffering from constipation and is requesting stool softener, that was sent as well We will also repeat UA today along [facility] Medical History Paroxysmal atrial fibrillation Congestive heart failure Testicular swelling Osteoarthritis of right knee Melanoma History of cardioversion Hereditary lymphedema Venous insufficiency Morbid obesity Lymphedema COPD (chronic obstructive pulmonary disease) Sensory neuropathy COVID-19 Respiratory failure with hypoxia Restrictive lung disease COPD (chronic obstructive pulmonary disease) JEFFRY on CPAP MATUTE (dyspnea on exertion) Chronic cystitis Bladder outlet obstruction Restless leg syndrome Traumatic complete tear of right rotator cuff Injury of right rotator cuff History of diverticulitis History of umbilical hernia Surgical History Hx of colonoscopy History of appendectomy History of arthroscopy of left knee Family History Father Arthritis Diabetes Mother Arthritis Kidney stones Family/Other Arthritis Sister No problems noted. Sister No problems noted. Son No problems noted. Social History Household Members: Spouse Household Members Other:: Floridalma Housing: Condominium Do you presently have visiting nurse or other home services: Yes (health care something ) Alcohol intake: current Alcohol intake frequency: 0-2 drinks per day Alcohol type: beer Comment: refusing bed alarm Patient Tobacco Use Status: Former Tobacco user Tobacco use type: Cigarette Cigarette Packs Per Day: 1 Cigarettes Per Day: 20.0 Years Smoked: 30 years Packs Per Year: 0 Packs per year/per ci.00 e-Cigarette/Vaping Use: Never Used Second Hand Smoke Exposure: No Substance Use Type: Marijuana Advance Directives Date on File: 05/16/20 service: No Current occupational status: retired Current occupation: [employer]er [employer] Cognitive needs: No Hearing needs: No Vision needs: No Questionnaire Thrive Questionnaire Date Thrive assessed: 12/26/23 I am a: Patient What is your living situation today?: I have a steady place to live Within the past 12 months, did the food you bought not last and you didn't have the money to get more?: Never true Within the past 12 months, did you worry whether your food would run out before you got money to buy more?: Sometimes True Do you have trouble paying for medicines?: Yes Do you have trouble getting transportation to medical appointments?: No Do you have trouble paying your heating and electricity bill?: Yes Do you have trouble taking care of your child, family member or friend?: No Do you have trouble with day-to-day activities such as bathing, preparing meals, shopping, managing finances, etc.?: Yes Are you currently unemployed and looking for a job?: No Are you interested in more education?: No Currently or been in a relationship where the following occur: No concerns reported THRIVE Score: 2 AUDIT C Alcohol Use Questionnaire (AUDIT-C) 1. How often do you have a drink containing alcohol?: 4 or more times a week 2. How many drinks containing alcohol do you have on a typical day when you are drinking?: 1 or 2 3. How often do you have six or more drinks on one occasion?: Less than monthly Total Score: 5 Score Reviewed/Action Taken: Yes KIRA-7 AMB Questionnaire KIRA-7 Date KIRA - 7 assessed: 09/23/23 Source: Developed by Drs. Marc Victoria, Karen Nguyen, Tristan Dominguez and colleagues, with an educational juan from [employer]. Review of Systems Const Denies chills and Denies fever(s) ENT Denies epistaxis and Denies nasal discharge Card Denies chest pain Resp Denies chest congestion, Denies cough and Denies hemoptysis GI Denies diarrhea and Denies nausea Skin/Breast Denies rash Neuro Reports no additional complaints Psych Reports no additional complaints Endo Reports no additional complaints Physical exam (Primary Care) Vital Signs: Last Vital Signs Pulse 112 H 12/26/23 13:53 BP 98/66 12/26/23 13:53 Pulse Ox 96 12/26/23 13:53 Oxygen Delivery Method Room Air 12/26/23 13:53 BMI result Body Mass Index 51.6 Tobacco/Smoking Status: Tobacco use Status Tobacco use date assessed 12/26/23 12/26/23 14:00 Patient Tobacco Use Status Former Tobacco user 12/26/23 14:00 Tobacco use type Cigarette 12/26/23 14:00 e-Cigarette/Vaping Use Never Used 12/26/23 14:00 Thrive Assessment: Date of Thrive Assessment Date Thrive assessed 12/26/23 12/26/23 14:00 Currently or been in a relationship where the following occur: No concerns reported Const General: cooperative, comfortable and no acute distress Orientation/consciousness: patient oriented x3 HENMT Head: Yes normocephalic Eyes General: appearance normal, both eyes and all related structures Neck Neck: Yes supple Resp Effort & Inspection: normal respiratory effort, no cough and no stridor Cardio Heart sounds: S1 normal heart sound present and S2 normal heart sound present Back/Spine/Pelvis Back/spine/pelvis image: 1. Superficial sores without signs of infection 2. Skin General skin exam: turgor normal Neuro General: patient oriented x3, tone normal and moves all extremities Coding Level of Care Code Est Pt Level 5 (43757) Complex EM visit Add On G2211 Diagnoses Hospital discharge follow-up Z09 MARIAN (acute kidney injury) N17.9 COPD exacerbation J44.1 Paroxysmal atrial fibrillation I48.0 Bladder outlet obstruction N32.0 JEFFRY on CPAP G47.33; Z99.89 Lymphedema I89.0 Persistent atrial fibrillation I48.19 Atrial fibrillation type: persistent (not longstanding) On amiodarone therapy Z79.899 Seronegative rheumatoid arthritis M06.00 Pressure injury of buttock, stage 1, unspecified laterality L89.301 Laterality: unspecified laterality Pressure injury stage: stage 1 Assessment & Plan Assessment & Plan (1) Hospital discharge follow-up: Code(s): Z09 - Encounter for follow-up examination after completed treatment for conditions other than malignant neoplasm Category: Medical (2) MARIAN (acute kidney injury): Code(s): N17.9 - Acute kidney failure, unspecified Category: Medical (3) COPD exacerbation: Code(s): J44.1 - Chronic obstructive pulmonary disease with (acute) exacerbation Category: Medical (4) Paroxysmal atrial fibrillation: Code(s): I48.0 - Paroxysmal atrial fibrillation Category: Medical (5) Bladder outlet obstruction: Code(s): N32.0 - Bladder-neck obstruction Category: Medical (6) JEFFRY on CPAP: Comment: KNOWN TO HAVE OBSTRUCTIVE SLEEP APNEA. USES CPAP REGULARLY AND HAS BEEN VERY COMPLIANT AND BENEFITTING. CURRENTLY USING OXYGEN 2 L/MT ALONG WITH CPAP AT NIGHTTIME. Code(s): G47.33 - Obstructive sleep apnea (adult) (pediatric); Z99.89 - Dependence on other enabling machines and devices Category: Medical (7) Lymphedema: Comment: IT IS A CHRONIC PROBLEM, followed by wound care and vascular Code(s): I89.0 - Lymphedema, not elsewhere classified Category: Medical (8) A-fib: Code(s): I48.91 - Unspecified atrial fibrillation Category: Medical Qualifiers: Atrial fibrillation type: persistent (not longstanding) Qualified Code(s): I48.19 - Other persistent atrial fibrillation (9) On amiodarone therapy: Code(s): Z79.899 - Other termite inspector (current) drug therapy Category: Medical (10) Seronegative rheumatoid arthritis: Comment: -ve RF -ve CCP [facility] 05/2023 DC 09/2023 ineffective Code(s): M06.00 - Rheumatoid arthritis without rheumatoid factor, unspecified site Category: Medical (11) Pressure sore on buttocks: Code(s): L89.309 - Pressure ulcer of unspecified buttock, unspecified stage Category: Medical Qualifiers: Laterality: unspecified laterality Pressure injury stage: stage 1 Qualified Code(s): L89.301 - Pressure ulcer of unspecified buttock, stage 1 Plan Patient is 68-year-old gentleman with past medical history of paroxysmal atrial fibrillation on Eliquis and amiodarone, heart failure, lymphedema with chronic venous stasis, hypertension, COPD on 3 L of oxygen at home as needed, obstructive sleep apnea on CPAP, seronegative rheumatoid arthritis, overactive bladder, obesity, presented to emergency room with a chief complaint of nausea vomiting and difficulty breathing along with weakness and dysuria [facility] 12/06/2023 In emergency room patient was tachycardic to 103 beats per minute tachypneic to 22 respirations per minute Blood pressure was low 108 /53. Pulse ox 91% on room air Labs showed leukocytosis 13.8 Creatinine of 1.59 increased from previous 1.19. H&H was stable lactic acid 1.8 BNP negative UA positive for leuk esterase Chest x-ray showed streaky opacity bilateral lung bases possibly representing atelectasis. Patient was treated with DuoNebs Solu-Medrol He was admitted in hospital for further evaluation for MARIAN and COPD exacerbation in the setting of UTI with sepsis UTI was treated with IV ceftriaxone Jardiance was discontinued Doxazosin and finasteride to continue on discharge and to finish 2 weeks of antibiotic Blood cultures were negative For COPD he was discharged with tapering dose of prednisone Acute kidney injury improved His spironolactone was decreased at discharge Patient was discharged on 12/12/2023 He needs repeat labs to ensure normal kidney function He came in today for follow-up appointment I see that his blood pressure is running low I am cutting his spironolactone further to 25 mg once a day He has appointment coming up with storage battery charger for cardiac follow-up Complaining of feeling tired He has also developed couple of sores on his buttock for that I have sent Silvadene cream to be applied b.i.d. until healed Patient is suffering from constipation and is requesting stool softener, that was sent as well We will also repeat UA today along 46 minutes spent in care of this patient Orders: Orders Comprehensive Met. Panel Today G47.33 - Obstructive sleep apnea (adult) (pediatric), I48.0 - Paroxysmal atrial fibrillation, I48.19 - Other persistent atrial fibrillation, I50.9 - Heart failure, unspecified, I89.0 - Lymphedema, not elsewhere classified, J44.1 - Chronic obstructive pulmonary disease with (acute) exacerbation, M06.00 - Rheumatoid arthritis without rheumatoid factor, unspecified site, N17.9 - Acute kidney failure, unspecified, N32.0 - Bladder-neck obstruction, Z09 - Encounter for follow-up examination after completed treatment for conditions other than malignant neoplasm, Z79.899 - Other snf (current) drug therapy, Z99.89 - Dependence on other enabling machines and devices UA CC w/rflx Micro + Cult Today N32.0 - Bladder-neck obstruction Medications: New silver sulfadiazine 1% (Silvadene) apply a 1.5 mm thickness over the buttock sore 1 appl topical BID 85 grams 0RF docusate sodium (Colace) 100 mg PO BID 60 caps 0RF Constipation
[2023-12-26 13:53] VITALS: BP 98/66; PULSE 112; O2SAT 96; BMI 51.6
== END 2023-12-26 14:34 | disposition home or self-care (01) ==
PROVIDERS: PCP Nurse Practitioner Family; Visit Provider Internal Medicine
DX: J44.1 Chronic obstructive pulmonary disease with (acute) exacerbation (principal); N17.9 Acute kidney failure, unspecified; I48.0 Paroxysmal atrial fibrillation; I48.19 Other persistent atrial fibrillation; M06.00 Rheumatoid arthritis without rheumatoid factor, unspecified site; Z68.43 Body mass index [BMI] 50.0-59.9, adult; Z09 Encounter for follow-up examination after completed treatment for conditions other than malignant neoplasm; N32.0 Bladder-neck obstruction; G47.33 Obstructive sleep apnea (adult) (pediatric); Z99.89 Dependence on other enabling machines and devices; I89.0 Lymphedema, not elsewhere classified; Z79.899 Other long term (current) drug therapy

== ENCOUNTER 2023-12-26 13:40 | Outpatient (REF) | payer MEDICARE, SELFPAY ==
[2023-12-26 16:07] LABS: Appearance Urine Clear; Color Urine Yellow; Glucose Urine UA Negative (Negative); Leukocyte Esterase Urine Moderate (2+) (Negative); Nitrite Urine Negative (Negative); Specific Gravity - Urine 1.015 (1.005-1.025); UMIC TRIGGER UACC YES; Urine Blood Negative (Negative); Urine Ketones Negative (Negative); Urine Protein Negative (Neg-Trace)
[2023-12-26 16:11] LABS: Bacteria Urine None Seen (None Seen); Hyaline Casts Urine 0-2 /LPF (0-2); RBC Urine 0-2 /HPF (0-2); Squamous Epithelial Cell Urine 0-2 /HPF (0-2); UACC Culture Trigger YES; WBC Urine 21-50 /HPF (0-5)
[2023-12-26 16:19] LABS: MANUAL DIFF FLAG NO
[2023-12-26 16:28] LABS: Basophils Absolute Auto 0.1 X10*3/uL (0.0-0.2); Basophils Percent Auto 0.6 % (0-2); Eosinophils Absolute Auto 0.2 X10*3/uL (0.0-0.4); Eosinophils Percent Auto 2.8 % (0-4); Hematocrit 48.2 % (42.0-52.0); Hemoglobin 16.6 g/dl (14.0-18.0); Imm Gran Abs Auto 0.04 X10*3/uL (0.00-0.03); Imm Gran Pct Auto 0.5 % (0.0-0.4); Lymphocytes Absolute Auto 1.6 X10*3/uL (1.2-4.9); Mean Corpuscular HGB Conc 34.4 g/dl (31.0-36.0); Mean Corpuscular Hemoglobin 34.2 pg (27.0-33.0); Mean Corpuscular Volume 99.2 fL (80.0-98.0); Mean Platelet Volume 10.4 fL (9.4-12.4); Monocytes Absolute Auto 0.7 X10*3/uL (0.1-1.2); Monocytes Percent Auto 7.9 % (2-11); Neutrophils Percent Auto 69.2 % (45-73); Platelet Count 185 X10*3/uL (160-400); Red Blood Count 4.86 X10*6/uL (4.60-5.80); Red Cell Distribution Width 13.7 % (11.0-16.0); White Blood Count 8.6 X10*3/uL (4.8-10.8)
[2023-12-26 16:41] LABS: Alanine Aminotransferase 39 U/L (0-40); Albumin Level 3.8 g/dL (3.5-5.0); Alkaline Phosphatase 70 U/L (39-117); Anion Gap 14 (12-20); Aspartate Amino Transferase 37 U/L (5-37); Bilirubin Total 1.4 mg/dL (0.0-1.0); Blood Urea Nitrogen 18 mg/dL (9-16); Calcium 8.9 mg/dL (8.4-10.2); Carbon Dioxide 26 mmol/L (22-29); Chloride 100 mmol/L (96-108); Estimated Glomerular Filt Rate > 60; Glucose Random 97 mg/dL (60-115); Potassium 3.4 mmol/L (3.3-5.1); Sodium 137 mmol/L (135-145); Total Protein 6.5 g/dL (6.5-8.0)
[2023-12-26 16:43] LABS: Alanine Aminotransferase 39 U/L (0-40); Albumin Level 3.9 g/dL (3.5-5.0); Alkaline Phosphatase 60 U/L (39-117); Anion Gap 15 (12-20); Aspartate Amino Transferase 28 U/L (5-37); Bilirubin Total 1.4 mg/dL (0.0-1.0); Blood Urea Nitrogen 18 mg/dL (9-16); Calcium 8.8 mg/dL (8.4-10.2); Carbon Dioxide 26 mmol/L (22-29); Chloride 100 mmol/L (96-108); Estimated Glomerular Filt Rate > 60; Glucose Random 98 mg/dL (60-115); Potassium 3.4 mmol/L (3.3-5.1); Sodium 138 mmol/L (135-145); Total Protein 6.5 g/dL (6.5-8.0)
[2023-12-26 16:57] LABS: Thyroid Stimulating Hormone 1.28 uIU/mL (0.32-4.0)
[2023-12-26 16:58] LABS: Free T4 (Free Thyroxine) 1.19 ng/dL (0.71-1.85)
[2023-12-28 04:13] LABS: Triiodothyronine T3 Free 3.4 pg/mL (2.3-4.2)
== END 2023-12-26 13:41 | disposition home or self-care (01) ==
LOC: HO.HMGCLDS 13:40
PROVIDERS: Internal Medicine Endocrinology, Diabetes & Metabolism; Internal Medicine Hypertension Specialist; Student in an Organized Health Care Education/Training Program; PCP Nurse Practitioner Family; Visit Provider Internal Medicine
DX: N17.9 Acute kidney failure, unspecified (principal); R79.89 Other specified abnormal findings of blood chemistry; Z09 Encounter for follow-up examination after completed treatment for conditions other than malignant neoplasm; J44.1 Chronic obstructive pulmonary disease with (acute) exacerbation; I48.0 Paroxysmal atrial fibrillation; N32.0 Bladder-neck obstruction; G47.33 Obstructive sleep apnea (adult) (pediatric); Z99.89 Dependence on other enabling machines and devices; I89.0 Lymphedema, not elsewhere classified; I48.19 Other persistent atrial fibrillation; I50.9 Heart failure, unspecified; Z79.899 Other long term (current) drug therapy; M06.00 Rheumatoid arthritis without rheumatoid factor, unspecified site
CPT/HCPCS: 36415; 80053; 81001; 84439; 84443; 84481; 85025; 87086; 87088; 87186; 99212

== ENCOUNTER 2024-01-05 11:21 | Outpatient (REF) | payer MEDICARE, SELFPAY ==
[2024-01-05 13:27] LABS: Appearance Urine Clear; Color Urine Yellow; Glucose Urine UA Negative (Negative); Leukocyte Esterase Urine Moderate (2+) (Negative); Nitrite Urine Negative (Negative); PH 5.5 (5.0-9.0); Specific Gravity - Urine 1.015 (1.005-1.025); UMIC TRIGGER UACC YES; Urine Blood Negative (Negative); Urine Ketones Negative (Negative); Urine Protein Negative (Neg-Trace)
[2024-01-05 13:35] LABS: Bacteria Urine None Seen (None Seen); Hyaline Casts Urine 0-2 /LPF (0-2); RBC Urine 0-2 /HPF (0-2); Squamous Epithelial Cell Urine 0-2 /HPF (0-2); UACC Culture Trigger YES; WBC Urine >50 /HPF (0-5)
== END 2024-01-05 11:22 | disposition home or self-care (01) ==
LOC: HO.HMGCLDS 11:21
PROVIDERS: PCP Nurse Practitioner Family; Visit Provider Nurse Practitioner Family
DX: N39.0 Urinary tract infection, site not specified (principal)
CPT/HCPCS: 81001; 87086; 87088; 87186

== ENCOUNTER 2024-01-17 09:29 | Outpatient (REF) | payer MEDICARE, SELFPAY ==
[2024-01-17 11:13] LABS: Appearance Urine Clear; Color Urine Dark Yellow; Glucose Urine UA Negative (Negative); Leukocyte Esterase Urine Small (1+) (Negative); Nitrite Urine Negative (Negative); PH 5.5 (5.0-9.0); UMIC TRIGGER UACC YES; Urine Blood Negative (Negative); Urine Ketones Trace mg/dL (Negative); Urine Protein Negative (Neg-Trace)
[2024-01-17 11:15] LABS: Bacteria Urine None Seen (None Seen); Hyaline Casts Urine 0-2 /LPF (0-2); RBC Urine 0-2 /HPF (0-2); UACC Culture Trigger YES
== END 2024-01-17 09:30 | disposition home or self-care (01) ==
LOC: HO.HMGCLDS 09:29
PROVIDERS: PCP Nurse Practitioner Family; Visit Provider Nurse Practitioner Family
DX: N39.0 Urinary tract infection, site not specified (principal)
CPT/HCPCS: 81001; 87086

== ENCOUNTER 2024-01-27 07:57 | Outpatient (REF) | payer MEDICARE, SELFPAY ==
[2024-01-27 10:43] LABS: Appearance Urine Turbid; Color Urine Yellow; Glucose Urine UA Negative (Negative); Leukocyte Esterase Urine Trace (Negative); Nitrite Urine Negative (Negative); Specific Gravity - Urine 1.025 (1.005-1.025); UMIC TRIGGER UACC YES; Urine Blood Large (3+) (Negative); Urine Ketones Negative (Negative); Urine Protein Negative (Neg-Trace)
[2024-01-27 10:49] LABS: Bacteria Urine None Seen (None Seen); Hyaline Casts Urine 0-2 /LPF (0-2); Squamous Epithelial Cell Urine 0-2 /HPF (0-2); UACC Culture Trigger YES
--- OUTSIDE RECORDS SUMMARY | 2024-01-28 18:41 | XMS_ITS ---
Author Organization [facility] Address [address] [place] [address] Care Team Providers Care Counsel Name Role Phone Diego Gallagher Primary Care Provider Unav ailable Nancy Hardy [phone] REASON FOR VISIT cx 10/27 Encounters Encounter Location Date Provider Diagnosis [address] [address] 10/27/2023 Nancy Hardy Plan Of Treatment Next Appt Details Provider Name:Nancy li, 03/24/2024 03:30:00 PM, [address] [place], [address], Progress Notes * Dinh BUCKLEY RDOB:[birth year] (68 yo M)Acc No.[id number]:10/27/2023 Patient:?Dinh Buckley :1955???Age:68 Y???Sex:Male Address:[address] [place], [place] [address]natalie Hays [facility] [place], [address] * true * Date:? Generated for Printi ng/Faxing/eTransmitting on:?01/28/2024 06:41 PM EST
--- OUTSIDE RECORDS SUMMARY | 2024-01-28 18:41 | XMS_ITS ---
Author Organization [facility] Address [address] [facility] [place] [address] Care Team Providers Care Transportation Technician Name Role Phone Diego Gallagher Primary Care Provider Unav ailable Nancy Hardy Unavailable [phone] Allergies No Known Allergies REASON FOR VISIT At Risk Footcare, Painful Nail(s) aggrevated by shoes and causing difficulty standing/walking., Foot pain Medications Medication SIG (Take, Route, Frequency, Duration) Notes Start Date End Date Status Eliquis 5 MG 1 tablet Orally Twic e a day for 30 day(s) Active Albuterol as needed Active Doxazosin Mesylate 8 MG 1 tablet Orally Once a day Active Anoro Ellipta 62.5-25 MCG/ACT 1 puff Inhalation Once a day Active Atorvastatin Calcium 80 MG 1 tablet Orally Once a day Active Docusate Sodium-Casanthranol Active oxyBUTYnin Chloride Active Ammonium Lactate 12 % 1 application Externally Twice a day Active Bumetanide 1 MG 1 tablet Orally Once a day Active Spironolactone 25 MG 1 tablet Orally Active Actemra 162 MG/0.9ML as directed Subcutaneous Active Lactulose Active Cefuroxime Axetil 500 MG 1 tablet Orally every 12 hrs Active Silvadene 1 % 1 application Externally Once a day Active Nitrofurantoin Macrocrystal 100 MG 1 capsule at bedtime with food or milk Orally Once a day Active rOPINIRole HCl 2 MG 1 tablet 1 to 3 hour s before bedtime Orally Once a day X3 a day Active Metoprolol Succinate 50 MG 1 capsule Orally Once a day Not-Taking Bactrim 400-80 MG 1 tablet Orally Once a day Not-Taking Naproxen 250 MG 1 tablet with food o r milk as needed Orally every 12 hrs Not-Taking Aspirin 81 MG 1 tablet Orally Once a day Not-Taking methIMAzole 5 MG 1 tablet Orally Once a day Not-Taking Finasteride 5 MG 1 tablet Orally Once a day Active Furosemide 40 MG 1 tablet Orally Once a day Active Methocarbamol 500 MG 1.5 tablets Orally every 4 hrs as needed Active Pregabalin 150 MG 1 capsule Orally Onc e a day X3 a day Active DULoxetine HCl 60 MG 1 capsule Orally On ce a day Active Social History Tobacco Use: Social History Observation Description Date Details (start date - stop date) Former Smoker NA - NA Tobacco Use/Smoking Question Answer Notes Are you [...] Are you an other tobacco user? No Vital Signs Height 6ft 4in in 01/09/2024 Weight 425 lbs 01/09/2024 BMI 51.73 kg/m2 01/09/2024 Blood pressure systolic 132 mm Hg 01/09/20 24 Blood pressure diastolic 70 mm Hg 024 Encounters Encounter Location Date Provider Diagnosis [facility] [address] 01/09/2024 Nancy Mohamuda Neuropathy G62.9 ; Tinea unguium B35.1 ; Atherosclerosis of [place] artery of both lower extremities, with unspecified presence of clinical manifestation I70.203 ; Pain in right toe(s) M79.674 and Pain in left toe(s) M79.675 Assessments Encounter Date Diagnosis (ICD Code) Assessment Notes Treatment Notes Treatment Clinical Notes Section Notes 01/09/2024 Neuropathy (ICD-10 - G62.9) 01/09/2024 Tinea unguium (ICD-10 - B35.1) 01/09/2024 Atherosclerosis of [place] artery of both lower extremities, with unspecified presence of clinical manifestation (ICD-10 - I70.203) 01/09/2024 Pain in right toe(s) (ICD-10 - M79.674) 01/09/2024 Pain in left toe(s) (ICD-10 - M79.675) Plan Of Treatment Next Appt Details Follow Up: 2 Months, Reason: Provider Name:Nancy li, 03/24/2024 03:30:00 PM, [address] [place] [address], [phone], Procedure Notes * Category Sub-Category Detail Notes Debride Nail 6-10 Nail debridement Performance o f this nail treatment by a nonprofessional would put this patients foot and overall health at risk. Therefore, debridement to affected nail(s), as described in exam, was performed extensively to reduce/remove overall nail length, girth, thickness, subungual debris, and necrotic tissue, by manual and/or electrical means through the use of a nail nipper and/or dremel-type centerless grinder operator, to a more viable healthy nail plate or bed tissue 6-10 nails in total. Silver nitrate was used for any petechial bleeding as necessary. Definitive antifungal treatment options, both pharmaceutical and surgical, have been reviewed and discussed with the patient. The patient solely prefers the use of intermittent/as needed professional debridement services for their nail condition and understands the need for additional periodic treatments to maintain effectiveness in symptomatic relief - 68467 Keratoma Treatment Parring or Cutting o f Benign Hyperkeratotic Lesion(s) (-57) More than 4 Lesions - The Benign hyperkeratotic lesions, ( 6 ) in total, locations as stated and described in exam, were pared, and/or cut utilizing a sterile 15 blade, tissue nippers, and/or power dremel instrumentation - 48282 Progress Notes * Dinh BUCKLEY RDOB:[birth year] (68 yo M)Acc No.[id number]:01/09/2024 Progress Note Patient:?Dinh BUCKLEY Provider:?Nancy Hardy DPM :1955???Age:68 Y???Sex:Male Raj e:01/09/2024 Address: [address] Pcp:MARU Goldstein Subjective: * Chief Complaints: * ???At Risk FootcarePainful N ail(s) aggrevated by shoes and causing difficulty standing/walking.Foot pain * HPI: ???At Risk footcare:?Pt States Last PCP Visit:?Date?11/18/2023 ???Foot Pain:?Nature:?burning , radiating , shooting , tingling.?Location:?B/L.?Duration:?several years.?Onset:?unknown.?Course:?worse.?Aggravated:?any pressure.?Treatments:?pain medication per PCP for Neuropathy, pt going for appt with [facility] from Ortho referral.? * ROS:?General/Constitutional:?Nausea?denies, denies, denies.?Vomiting?denies, denies, denies.?Hunger Thirst?denies, denies, denies.?Loss appetite?denies, denies, denies.?Chills?denies, denies, denies.?Fatigue?denies, denies, denies.?Fever?denies, denies, denies.?Night Sweats?denies, denies, denies.?Unexplained weight loss?denies, denies, denies.?Unexplained weight gain?denies, denies, denies.?HEENTM:?Dentures?denies, denies, denies.?Dizziness?denies, denies, denies.?Glasses/contacts?admits, admits, admits.?Retinopathy?denies, denies, denies.?Blurred/double vision?denies, denies, denies.?TMJ?denies, denies, denies.?Discharge/drainage?denies, denies, denies.?Implants?denies, denies, denies.?Sore throat?denies, denies, denies.?Dental implants?denies, denies, denies.?Hard of hearing ?denies, denies, denies.?Difficulty chewing/swallowing/speaking denies, denies, denies.?Nose bleeds?denies, denies, denies.?Sore mouth?denies, denies, denies.?Respiratory:?On Oxygen?admits, admits, admits.?Pneumonia/pleurisy?denies, denies, denies.?Bronchitis?denies, denies, denies.?Emphysema?denies, denies, denies.?Coughing?admits, admits, admits.?Cough blood?denies, denies, denies.?Shortness of breath?admits, admits, admits.?Wheezing?admits, admits, admits.?Cardiovascular:?Pacemaker?denies, denies, denies.?MVP?denies, denies, denies.?WPW?denies, denies, denies.?CHF?denies, denies, denies.?Heart attack?denies, denies, denies.?Septal defect?denies, denies, denies.?Rapid beat denies, denies, denies.?Chest pain ?denies, denies, denies.?Atrial Fib.?denies, denies, denies.?Murmur/Palpitations?denies, denies, denies.?Gastrointestinal:?Hemorrhoids?denies, denies, denies.?Stomach/Abdominal pain?denies, denies, denies.?Dark blood stool?denies, denies, denies.?Irritable bowel ?denies, denies, denies.?Constipation?denies, denies, denies.?Diarrhea?denies, denies, denies.?Hematology:?Swelling?admits, admits, admits.?Clots?denies, denies, denies.?Varicose Veins?denies, denies, denies.?Bruising?denies, denies, denies.?Bleeding problem?denies, denies, denies.?Genitourinary:?Blood urine?denies, denies, denies.?Frequent/Painfu/urination/bladder control?denies, denies, denies.?Kidney stones?denies, denies, denies.?Infection (UTI)?denies, denies, denies.?Nephropathy?admits, admits, admits. sex trans dis (STD)?denies, denies, denies.?Prostate?denies, denies, denies.?Musculoskeletal:?Hammertoes?denies, denies, denies.?Bunions?denies, denies, denies.?Back Pain?admits, admits, admits.?Muscle Cramps/ Resting?denies, denies, denies.?Muscle cramps / walking?denies, denies, denies.?Generalized aches and pains?admits, admits, admits.?Weakness?denies, denies, denies.?Integ.:?Chen?denies, denies, denies.?Scars?denies, denies, denies.?Corns/calluses?denies, denies, denies.?Ingrown nails?denies, denies, denies.?Painful nails?denies, denies, denies.?Open Sores?denies, denies, denies.?Rashes?denies, denies, denies.?Neurologic:?Difficulty sleeping?denies, denies, denies.?Brain disorder?denies, denies, denies.?Numbness?admits, admits, admits.?Balance trouble?denies, denies, denies.?Confusion?denies, denies, denies.?Fainting/blackouts?denies, denies, denies.?Tingling?denies, denies, denies.?Tremors?denies, denies, denies.? * Medical History:? * Surgical History:?knee repla cement 2014appendectomy 2016rotator cuff 2019 * Hospitalization/Major Diagno stic Procedure:?[facility]- chest pains, a fib [facility]- 10 days - uti * Family History:?Mother: dece ased, poor circulation, diagnosed with Other malignant neoplasm of unspecified site.?Father: , heart attack, poor circulation, diagnosed with Diabetic - NIDDM, Unspecified heart disease, Family history of arthritis.? * Social History:?Tobacco Use:?Tobacco Use/Smoking?Are you a:?former smoker ?Additional Findings: Tobacco Non-User?Current non-smoker ?Tobacco use other than smoking?Are you an other tobacco user??No ???Drugs/Alcohol:?Drugs?Have you used drugs other than those for medical reasons in the past 12 months??Yes ?Marijuana??Moderately ?Alcohol Screen?Did you have a drink containing alcohol in the past year??Yes ?How often did you have a drink containing alcohol in the past year??4 or more times a week (4 points) ?Points?4 ?Interpretation?Positive ???Miscellaneous:?Caffeine: yes, frequency: , 1-2 cups per day. ?Children: yes. ?Exercise: yes, limited due to medical condition. ?Marital status: , . 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 * Medications:?TakingActemra 1 62 MG/0.9ML Solution Prefilled Syringe as directed Subcutaneous Silvadene 1 % Cream 1 application Externally Once a day Nitrofurantoin Macrocrystal 100 MG Capsule 1 capsule at bedtime with food or milk Orally Once a day Lactulose Cefuroxime Axetil 500 MG Tablet 1 tablet Orally every 12 hrs Ammonium Lactate 12 % Lotion 1 application Externally Twice a day Bumetanide 1 MG Tablet 1 tablet Orally Once a day Docusate Sodium-Casanthranol oxyBUTYnin Chloride Spironolactone 25 MG Tablet 1 tablet Orally Eliquis 5 MG Tablet 1 tablet Orally Twice a day Albuterol , Notes to Pharmacist: as neededAnoro Ellipta 62.5-25 MCG/ACT Aerosol Powder Breath Activated 1 puff Inhalation Once a day Atorvastatin Calcium 80 MG Tablet 1 tablet Orally Once a day Doxazosin Mesylate 8 MG Tablet 1 tablet Orally Once a day DULoxetine HCl 60 MG Capsule Delayed Release Particles 1 capsule Orally Once a day Finasteride 5 MG Tablet 1 tablet Orally Once a day Furosemide 40 MG Tablet 1 tablet Orally Once a day Methocarbamol 500 MG Tablet 1.5 tablets Orally every 4 hrs , Notes to Pharmacist: as neededPregabalin 150 MG Capsule 1 capsule Orally Once a day , Notes to Pharmacist: X3 a dayrOPINIRole HCl 2 MG Tablet 1 tablet 1 to 3 hours before bedtime Orally Once a day , Notes to Pharmacist: X3 a dayTaking Actemra 162 MG/0.9ML Solution Prefilled Syringe as directed Subcutaneous Taking Silvadene 1 % Cream 1 application Externally Once a day Taking Nitrofurantoin Macrocrystal 100 MG Capsule 1 capsule at bedtime with food or milk Orally Once a day Taking Lactulose Taking Cefuroxime Axetil 500 MG Tablet 1 tablet Orally every 12 hrs Taking Ammonium Lactate 12 % Lotion 1 application Externally Twice a day Taking Bumetanide 1 MG Tablet 1 tablet Orally Once a day Taking Docusate Sodium-Casanthranol Taking oxyBUTYnin Chloride Taking Spironolactone 25 MG Tablet 1 tablet Orally Taking Eliquis 5 MG Tablet 1 tablet Orally Twice a day Taking Albuterol , Notes to Pharmacist: as neededTaking Anoro Ellipta 62.5-25 MCG/ACT Aerosol Powder Breath Activated 1 puff Inhalation Once a day Taking Atorvastatin Calcium 80 MG Tablet 1 tablet Orally Once a day Taking Doxazosin Mesylate 8 MG Tablet 1 tablet Orally Once a day Taking DULoxetine HCl 60 MG Capsule Delayed Release Particles 1 capsule Orally Once a day Taking Finasteride 5 MG Tablet 1 tablet Orally Once a day Taking Furosemide 40 MG Tablet 1 tablet Orally Once a day Taking Methocarbamol 500 MG Tablet 1.5 tablets Orally every 4 hrs , Notes to Pharmacist: as neededTaking Pregabalin 150 MG Capsule 1 capsule Orally Once a day , Notes to Pharmacist: X3 a dayTaking rOPINIRole HCl 2 MG Tablet 1 tablet 1 to 3 hours before bedtime Orally Once a day , Notes to Pharmacist: X3 a dayNot-Taking/PRNmethIMAzole 5 MG Tablet 1 tablet Orally Once a day Metoprolol Succinate 50 MG Capsule ER 24 Hour Sprinkle 1 capsule Orally Once a day Naproxen 250 MG Tablet 1 tablet with food or milk as needed Orally every 12 hrs Aspirin 81 MG Tablet Chewable 1 tablet Orally Once a day Bactrim 400-80 MG Tablet 1 tablet Orally Once a day Medication List reviewed and reconciled with the patientNot- Taking/PRN methIMAzole 5 MG Tablet 1 tablet Orally Once a day Not-Taking/PRN Metoprolol Succinate 50 MG Capsule ER 24 Hour Sprinkle 1 capsule Orally Once a day Not-Taking/PRN Naproxen 250 MG Tablet 1 tablet with food or milk as needed Orally every 12 hrs Not-Taking/PRN Aspirin 81 MG Tablet Chewable 1 tablet Orally Once a day Not-Taking/PRN Bactrim 400-80 MG Tablet 1 tablet Orally Once a day Medication List reviewed and reconciled with the patient * Allergies:?N.K.D.A.yes[Aller gies Verified] Objective: * Vitals:?Ht: 6ft 4in, Wt:425, BMI:51.73, Shoe size: 16, BP:132/70mm Hg, Ht-cm: 193.04 cm, Wt-k.78 kg. * Examination: ???Vascular: ?DP PULSES(B):? 0/4, B/L.?PT PULSES(B):? 0/4, B/L.?CAPILLARY FILL TIME:? delayed, all digits, B/L.?TROPHIC CONDITION-TEXTURE/ELASTICITY/TURGOR/HAIR GROWTH(B):? decreased, B/L.?TEMPERTURE GRADIENT(C):? decreased, cool to cool, proximal to distal, B/L.?PIGMENTATION:?mottled, B/L , brawny, B/L.?EDEMA(C):?4/4 , B/L.?CLAUDICATION(C):?denies, B/L.?REST PAIN:?denies, B/L.?Nails: ?NAILS are:? Elongated, overgrown, dystrophic, lytic, greater than 3mm thick, discolored and friable with crumbly malodorous subungual debris, with pain on palpation, 1-5 B/L.?Dermatologic: ?SKIN FINDINGS:?Skin exam reveals Keratotic lesion(s) located at , TA , T5 , SUB MTH (s) , 5 , B/L , Heel(s) , B/L.?Orthopedic: ?MUSCLE STRENGTH:?5/5 all groups in a symmetrical fashion, B/L.?FOOT MORPHOLOGY:?B/L , Pes Planus structure , Rigid.?Neurological: ?SENSORY:?Neurological exam demonstrates , reduced light touch sensation , reduced sharp/dull pin prick discrimination , reduced vibration sensation , reduced proprioception sensation , in a stocking fashion , plantar aspects , 5.07 monofilament test performed at plantar aspects of 5 varied sites per foot shows sensation , reduced , B/L , Pt relates , burning , hyperesthesia , paresthesia , shooting/radiating sensation , B/L.?General Examination: ?GENERAL APPEARANCE:?Reveals a pleasant, alert, well nourished, well- developed, well hydrated individual, who demonstrates proper attention to hygiene/body habitus, and is in no acute distress, Pt serves as own historian for office visit today.?ORIENTED:?person, place, and time.? Assessment: * Assessment: 1.?Tinea unguium - B35.1 (Pr imary)???2.?Neuropathy - G62.9???Specify :Chronic problem, Worse (4)???3.?Atherosclerosis of [place] artery of both lower extremities, with unspecified presence of clinical manifestation - I70.203???4.?Pain in right toe(s) - M79.674???5.?Pain in left toe(s) - M79.675??? Plan: * Treatment: * Procedures:?Debride Nail 6-10:?Nail debridement?Performance of this nail treatment by a nonprofessional would put this patients foot and overall health at risk. Therefore, debridement to affected nail(s), as described in exam, was performed extensively to reduce/remove overall nail length, girth, thickness, subungual debris, and necrotic tissue, by manual and/or electrical means through the use of a nail nipper and/or dremel-type centerless grinder operator, to a more viable healthy nail plate or bed tissue 6-10 nails in total. Silver nitrate was used for any petechial bleeding as necessary. Definitive antifungal treatment options, both pharmaceutical and surgical, have been reviewed and discussed with the patient. The patient solely prefers the use of intermittent/as needed professional debridement services for their nail condition and understands the need for additional periodic treatments to maintain effectiveness in symptomatic relief - 85380.?Keratoma Treatment:?Parring or Cutting of Benign Hyperkeratotic Lesion(s)?(-57) More than 4 Lesions - The Benign hyperkeratotic lesions, ( 6 ) in total, locations as stated and described in exam, were pared, and/or cut utilizing a sterile 15 blade, tissue nippers, and/or power dremel instrumentation - 10207.? * Procedure Codes:?50748 DEBRI DE NAIL, 6 OR MORE, Modifiers: XS 86667 TRIM SKIN LESIONS, OVER 4, Modifiers: XS , Q8 * Follow Up:?2 Months * Images: * Sign off status: Completed true * Provider:?Nancy Hardy DPM Date:? Generated for Katlin ramirez/Cece/Jemima on:?01/28/2024 06:40 PM EST History and Physical Notes * HPI (History of Present Illness) Category Sub-Category Detail Notes Category Not es At Risk footcare Pt States Last PCP Visit: Date: 4 Foot Pain Nature: burning , radiat ing , shooting , tingling Location: B/L Duration: several years Onset: unknown Course: worse Aggravated: any pressure Treatments: pain medication per PCP for Neuropathy, pt going for appt with [facility] from Ortho referral Examination Category Sub-Category Detail Notes Category Not es Neurological SENSORY: Neurological exa m demonstrates , reduced light touch sensation , reduced sharp/dull pin prick discrimination , reduced vibration sensation , reduced proprioception sensation , in a stocking fashion , plantar aspects , 5.07 monofilament test performed at plantar aspects of 5 varied sites per foot shows sensation , reduced , B/L , Pt relates , burning , hyperesthesia , paresthesia , shooting/radiating sensation , B/L Dermatologic SKIN FINDINGS: Skin exam reveal s Keratotic lesion(s) located at , TA , T5 , SUB MTH (s) , 5 , B/L , Heel(s) , B/L Orthopedic FOOT MORPHOLOGY: B/L , Pes Planus structu re , Rigid MUSCLE STRENGTH: 5/5 all groups in a symmetrical fashion, B/L General Examination GENERAL APPEARANCE: Reveals a pleasant, alert, well nourished, well-developed, well hydrated individual, who demonstrates proper attention to hygiene/body habitus, and is in no acute distress, Pt serves as own historian for office visit today ORIENTED: person, place, and t gretta Vascular DP PULSES(B): 0/4, B/L PT PULSES(B): 0/4, B/L CAPILLARY FILL TIME: delayed, all digits , B/L TEMPERTURE GRADIENT(C): decreased, cool to cool, proximal to distal, B/L TROPHIC CONDITION-TEXTURE/ELASTICITY/TURGOR/HAIR GROWTH(B): decreased, B/L EDEMA(C): 4/4 , B/L CLAUDICATION(C): denies, B/L REST PAIN: denies, B/L PIGMENTATION: mottled, B/L , brawn y, B/L Nails NAILS are: Elongated, overg rown, dystrophic, lytic, greater than 3mm thick, discolored and friable with crumbly malodorous subungual debris, with pain on palpation, 1-5 B/L
--- OUTSIDE RECORDS SUMMARY | 2024-01-28 18:41 | XMS_ITS ---
Author Organization [facility] Address [address] [place] [id number] Care Team Providers Care Ecommerce Project Manager Name Role Phone Diego Gallagher Primary Care Provider Unav ailable Nancy Hardy [phone] Encounters Encounter Location Date Provider Diagnosis [address] [address] 10/28/2023 Nancy Hardy Plan Of Treatment Next Appt Details Provider Name:Nancy li, 03/24/2024 03:30:00 PM, [address] [place] [address], [id number], Progress Notes * Dinh BUCKLEY RDOB:[birth year] (68 yo M)Acc No.[id number]:10/28/2023 Progress Note Patient:?Dinh BUCKLEY Provider:?Nancy Hardy DPM :1955???Age:68 Y???Sex:Male Raj e:10/28/2023 Address: [address] [id number] Pcp:MARU Goldstein Subjective: * Chief Complaints: * ??? * Medical History:? Objective: * Vitals:? Assessment: Plan: * Treatment: * Images: * The named appointment provid er may or may not be the originator of this progress note, and it is not deemed complete until electronically signed by the appointment provider. Sign off status: Pending * Provider:?Nancy Hardy DPM Date:?11/2023 Generated for Katlin ramirez/Cece/Jemima on:?01/28/2024 06:41 PM EST
--- OUTSIDE RECORDS SUMMARY | 2024-01-28 18:42 | XMS_ITS | Patient Health Record ---
Author Organization [facility] Address [address] [facility] [place] [address] Care Team Providers Care Websphere Commerce Architect Name Role Phone Diego Gallagher Primary Care Provider Unav ailNancy Dowd Unavailable [phone] Allergies No Known Allergies Reason For Referral No Information Medications Medication SIG (Take, Route, Frequency, Duration) Notes Start Date End Date Status Docusate Sodium-Casanthranol Active oxyBUTYnin Chloride Active Ammonium Lactate 12 % 1 application Externally Twice a day Active Bumetanide 1 MG 1 tablet Orally Once a day Active rOPINIRole HCl 2 MG 1 tablet 1 to 3 hour s before bedtime Orally Once a day X3 a day Active Actemra 162 MG/0.9ML as directed Subcutaneous Active Metoprolol Succinate 50 MG 1 capsule Orally Once a day Not-Taking Methocarbamol 500 MG 1.5 tablets Orally every 4 hrs as needed Active Pregabalin 150 MG 1 capsule Orally Onc e a day X3 a day Active Lactulose Active Bactrim 400-80 MG 1 tablet Orally Once a day Not-Taking Cefuroxime Axetil 500 MG 1 tablet Orally every 12 hrs Active Silvadene 1 % 1 application Externally Once a day Active Naproxen 250 MG 1 tablet with food o r milk as needed Orally every 12 hrs Not-Taking Nitrofurantoin Macrocrystal 100 MG 1 capsule at bedtime with food or milk Orally Once a day Active Aspirin 81 MG 1 tablet Orally Once a day Not-Taking methIMAzole 5 MG 1 tablet Orally Once a day Not-Taking Finasteride 5 MG 1 tablet Orally Once a day Active Furosemide 40 MG 1 tablet Orally Once a day Active Eliquis 5 MG 1 tablet Orally Twic e a day for 30 day(s) Active Albuterol as needed Active Spironolactone 25 MG 1 tablet Orally Active Doxazosin Mesylate 8 MG 1 tablet Orally Once a day Active DULoxetine HCl 60 MG 1 capsule Orally On ce a day Active Anoro Ellipta 62.5-25 MCG/ACT 1 puff Inhalation Once a day Active Atorvastatin Calcium 80 MG 1 tablet Orally Once a day Active Social History Tobacco Use: [...] Are you an other tobacco user? 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) Active confirmed Problem Mononeuropathy of lower limb (916314546) Neuritis of right foot (G57.91) Active confirmed Problem 33112495 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 Problem Atherosclerosis of [place] artery of both lower extremities, with unspecified presence of clinical manifestation (I70.203) Active confirmed Problem 20818927236922816 Atherosclerosi s of artery of both lower extremities (I70.203) Active confirmed Problem 45089222616217769 Neuropathic ul cer of right foot with fat layer exposed (L97.512) Active confirmed Vital Signs Blood pressure diastolic 70 mm Hg 01/09/2024 Height 6ft 4in in 01/09/2024 Blood pressure systolic 132 mm Hg 01/09/2024 Weight 425 lbs 01/09/2024 BMI 51.73 kg/m2 01/09/2024 Encounters Encounter Location Date Provider Diagnosis [facility] [address] [place] [address] 01/31/2023 Nancy Perica Neuropathy G62.9 ; Xerosis of skin L85.3 ; Plantar fat pad atrophy of left foot M21.6X2 ; Tinea unguium B35.1 ; Pes planus of left foot M21.42 ; Pes planus of right foot M21.41 ; Pain in toe of left foot M79.675 and Pain in toe of right foot M79.[address] [address] 04/11/2023 Nancy Hardy Atherosclerosis of [place] artery of both lower extremities, with unspecified presence of clinical manifestation I70.203 ; Neuropathy G62.9 ; Tinea unguium B35.1 ; Pain in right toe(s) M79.674 and Pain in left toe(s) M79.[address] [address] 06/18/2023 Nancy Hardy Atherosclerosis of [place] artery of both lower extremities, with unspecified presence of clinical manifestation I70.203 ; Neuropathy G62.9 ; Tinea unguium B35.1 ; Pain in right toe(s) M79.674 and Pain in left toe(s) M79.[address] [address] 01/09/2024 Nanyc Hardy Neuropathy G62.9 ; Tinea unguium B35.1 ; Atherosclerosis of [place] artery of both lower extremities, with unspecified presence of clinical manifestation I70.203 ; Pain in right toe(s) M79.674 and Pain in left toe(s) M79.[address] [address] 10/27/2023 Nancy Hardy Assessments Encounter Date Diagnosis (ICD Code) Assessment Notes Treatment Notes Treatment Clinical Notes Section Notes 01/31/2023 Neuropathy (ICD-10 - G62.9) 01/31/2023 Xerosis of skin (ICD-10 - L85.3) 04/11/2023 Neuropathy (ICD-10 - G62.9) 04/11/2023 Atherosclerosis of [place] artery of both lower extremities, with unspecified presence of clinical manifestation (ICD-10 - I70.203) 06/18/2023 Atherosclerosis of [place] artery of both lower extremities, with unspecified presence of clinical manifestation (ICD-10 - I70.203) 01/09/2024 Tinea unguium (ICD-10 - B35.1) 01/09/2024 Neuropathy (ICD-10 - G62.9) 01/09/2024 Atherosclerosis of [place] artery of both lower extremities, with unspecified presence of clinical manifestation (ICD-10 - I70.203) 06/18/2023 Neuropathy (ICD-10 - G62.9) 06/18/2023 Tinea unguium (ICD-10 - B35.1) 01/31/2023 Plantar fat pad atrophy of left foot (ICD-10 - M21.6X2) 04/11/2023 Tinea unguium (ICD-10 - B35.1) 01/31/2023 Tinea unguium (ICD-10 - B35.1) 04/11/2023 Pain in right toe(s) (ICD-10 - M79.674) 06/18/2023 Pain in right toe(s) (ICD-10 - M79.674) 01/09/2024 Pain in right toe(s) (ICD-10 - M79.674) 01/09/2024 Pain in left toe(s) (ICD-10 - M79.675) 06/18/2023 Pain in left toe(s) (ICD-10 - M79.675) 01/31/2023 Pes planus of left foot (ICD-10 - M21.42) 04/11/2023 Pain in left toe(s) (ICD-10 - M79.675) 01/31/2023 Pes planus of right foot (ICD-10 - M21.41) 01/31/2023 Pain in toe of left foot (ICD-10 - M79.675) 01/31/2023 Pain in toe of right foot (ICD-10 - M79.674) Plan Of Treatment Pending Test Test Name Order Date X ray : Foot, left 3V 09/04/2022 X ray : Foot, left 3V 09/18/2022 Next Appt Details Provider Name:Nancy li, 03/24/2024 03:30:00 PM, [address] [place], [address], Insurance Providers Payer Name Payer Address Payer Phone Subscriber Number Group Number Insured Name Patient Relationship to Insured Coverage Start Date Coverage End Date Medicare National [facility] [address] [place] [address] [phone] [id number] Dinh Craven Self - patient is the insured [facility] [employer] [facility] [address] [place] [address] [id number] Dinh Craven Self - patient is the insured Medical (General) History Medical History History ICD Code Arthritis asthma Back,Hip,and Knee pain Lung disease Neuropathy Poor circulation thyroid Chicken pox Joint implants/screws A fib Surgical History Surgery Date(Month/Year) knee replacement 2013 appendectomy 2016 rotator cuff 2019 Hospitalization History Reason Date(Month/Year) [facility]- 10 days - uti [facility]- chest pains, a fib
== END 2024-01-27 07:58 | disposition home or self-care (01) ==
LOC: HO.HMGCLDS 07:57
PROVIDERS: PCP Nurse Practitioner Family; Visit Provider Nurse Practitioner Family
DX: R39.0 Extravasation of urine (principal)
CPT/HCPCS: 81001; 81003; 87086

== ENCOUNTER 2024-01-29 11:35 | Outpatient (AMB) | payer MEDICARE, SELFPAY ==
--- NOTE | 2024-01-29 11:35 | MHC.OFFVIS ---
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 He is a patient of Dr. Chong. He is seen for the following urologic conditions - chronic cystitis - lower urinary tract symptoms Telemedicine Evaluation 15 min Consultation Rarelook Suzy Video Question of UTI Late November/Early December UTI with E coli resistant to Bactrim and ampicillin Add vitamin C and methanamine for chemosuppression Background CHF, COPD Lower urinary tract symptoms - predominant urgency Did notice improved stream with doxazosin 8 mg and finasteride Still with urge - responsive to myrbetriq Has been using oxybutynin Hematuria: Chronic cystitis on prior biopsy Episode of marked hematuria October 2020 Microscopic hematuria was diagnosed during routine UA. They are here for the cystoscopy and discussion of imaging findings. Since the last visit the patient has has not noticed gross hematuria, continues to test positive for microscopic hematuria. Relevant medical history for no pertinent medical history. PSA 01/07 1.6, 05/09 1.3 Radiographic imaging: CT KUB NAD - bilateral renal cyst. Cystoscopy findings September 2018 chronic cystitis. Therapeutic plan follow-up in 6 months [facility] Medical History Paroxysmal atrial fibrillation Congestive heart failure Testicular swelling Osteoarthritis of right knee Melanoma History of cardioversion Hereditary lymphedema Venous insufficiency Morbid obesity Lymphedema COPD (chronic obstructive pulmonary disease) Sensory neuropathy COVID-19 Respiratory failure with hypoxia Restrictive lung disease COPD (chronic obstructive pulmonary disease) JEFFRY on CPAP MATUTE (dyspnea on exertion) Chronic cystitis Bladder outlet obstruction Restless leg syndrome Traumatic complete tear of right rotator cuff Injury of right rotator cuff History of diverticulitis History of umbilical hernia Surgical History Hx of colonoscopy History of appendectomy History of arthroscopy of left knee Family History Father Arthritis Diabetes Mother Arthritis Kidney stones Family/Other Arthritis Sister No problems noted. Sister No problems noted. Son No problems noted. Social History Household Members: Spouse Household Members Other:: Floridalma Housing: Condominium Do you presently have visiting nurse or other home services: Yes (health care something ) Alcohol intake: current Alcohol intake frequency: 0-2 drinks per day Alcohol type: beer Comment: refusing bed alarm Patient Tobacco Use Status: Former Tobacco user Tobacco use type: Cigarette Cigarette Packs Per Day: 1 Cigarettes Per Day: 20.0 Years Smoked: 30 years e-Cigarette/Vaping Use: Never Used Second Hand Smoke Exposure: No Substance Use Type: Marijuana Advance Directives Date on File: 05/16/20 service: No Current occupational status: retired 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 [employer] Cognitive needs: No Hearing needs: No Vision needs: No Review of Systems Const All systems reviewed & are unremarkable except as noted in HPI and below Reports no additional complaints Resp Reports no additional complaints GI Reports no additional complaints Reports as per HPI Musc Reports no additional complaints Physical Exam Telemedicine evaluation Appropriate responses Regular breathing rate and rhythm HEENT Head: Yes normal to inspection Ears: hearing grossly normal bilaterally Eyes General: appearance normal, both eyes and all related structures Neck Neck: Yes normal visual inspection Chest Chest palpation & inspection: normal inspection of the chest Resp Effort & Inspection: normal respiratory effort and able to speak in complete sentences Telehealth Telehealth Location of provider rendering services: practice address Location of patient: address on file Patient Identification confirmed using: Name, : Yes Telehealth method: voice only Patient verbally consented to treatment: Yes Patient verbally consented to billing insurance company: Yes Patient informed of any privacy concerns related to visit: Yes Assessment & Plan Assessment & Plan (1) Chronic cystitis: Code(s): N30.20 - Other chronic cystitis without hematuria Category: Medical (2) Bladder outlet obstruction: Code(s): N32.0 - Bladder-neck obstruction Category: Medical Plan Start methenamine and vitamin-C Keep planned follow-up Medications: New ascorbic acid (vitamin C) 1 g PO DAILY 90 days 90 tabs 1RF N39.0 - Urinary tract infection, site not specified methenamine hippurate 1 g PO DAILY 90 days 90 tabs 1RF N39.0 - Urinary tract infection, site not specified Discontinued oxybutynin chloride ER Discontinued Reason: Patient Completed Course 10 mg PO DAILY 90 days 90 tabs 1RF nitrofurantoin macrocrystal must administer with a meal/food Discontinued Reason: Patient Completed Course 100 mg PO BID 7 days 14 caps 0RF Patient Instructions: Imaging studies, laboratory and physical exam results were discussed and reviewed in detail. No major barriers to patient understanding were identified. An opportunity to ask questions regarding the treatment plan was provided. All questions were answered. The patient expressed understanding and agreement with the above treatment plan. The patient is aware they should contact our office by phone for worsening of their current condition or the appearance of new urologic symptoms. Compliance is encouraged with any medications and followup testing that is ordered. It is a privilege to participate in the urologic care of your patient. If you have any questions or concerns regarding treatment for the above conditions, or other urologic issues, please do not hesitate to contact me. The office telephone contact is [phone]. This note is constructed using voice recognition software. While every effort has been made to ensure accuracy telephone information supervisor errors may have been included. Yours sincerely, Dr Prabhu Head MD, [facility] - Urology Providers of Expert, Compassionate Care for the Genitourinary System Coding Level of Care Code Tele Est Pt Level 4 (80785) Diagnoses Chronic cystitis N30.20 Bladder outlet obstruction N32.0
--- OUTSIDE RECORDS SUMMARY | 2024-01-29 11:37 | XMS_ITS ---
Author Organization [facility] Address [address] [place] [address] Care Team Providers Care Organic Preparation Analyst Name Role Phone Diego Gallagher Primary Care Provider Unav ailable Nancy Hardy Unavailable [phone] Allergies No Known Allergies REASON FOR VISIT [...] an other tobacco user? No Vital Signs Blood pressure systolic 132 mm Hg 01/09/20 24 Blood pressure diastolic 70 mm Hg 024 Height 6ft 4in in 01/09/2024 Weight 425 lbs 01/09/2024 BMI 51.73 kg/m2 01/09/2024 Encounters Encounter Location Date Provider [facility] [address] [place] [address] 01/09/2024 Nancy Mallorya Neuropathy G62.9 ; Tinea unguium B35.1 ; Atherosclerosis of [place] artery of both lower extremities, with unspecified presence of clinical manifestation I70.203 ; Pain in right toe(s) M79.674 and Pain in left toe(s) M79.675 Assessments Encounter Date Diagnosis (ICD Code) Assessment Notes Treatment Notes Treatment Clinical Notes Section Notes 01/09/2024 Neuropathy (ICD-10 - G62.9) 01/09/2024 Tinea unguium (ICD-10 - B35.1) 01/09/2024 Atherosclerosis of [place] artery of both lower extremities, with unspecified presence of clinical manifestation (ICD-10 - I70.203) 01/09/2024 Pain in right toe(s) (ICD-10 - M79.674) 01/09/2024 Pain in left toe(s) (ICD-10 - M79.675) Plan Of Treatment Next Appt Details Follow Up: 2 Months, Reason: Provider Name:Nancy li, 03/24/2024 03:30:00 PM, [address] [place] [address], [address], Procedure Notes * Category Sub-Category Detail [...] use of a nail nipper and/or dremel-type ice grinder, to a more viable healthy nail plate [...] to maintain effectiveness in symptomatic relief - 58869 Keratoma Treatment Parring or Cutting o f Benign Hyperkeratotic Lesion(s) (-57) More than 4 Lesions - The Benign hyperkeratotic lesions, ( 6 ) in total, locations as stated and described in exam, were pared, and/or cut utilizing a sterile 15 blade, tissue nippers, and/or power dremel instrumentation - 14379 Progress Notes * Dinh BUCKLEY RDOB:[birth year] (68 yo M)Acc No.[id number]:01/09/2024 Progress Note Patient:?Dinh BUCKLEY Provider:?Nancy Hardy DPM :1955???Age:68 Y???Sex:Male Raj e:01/09/2024 Address: [id number] Pcp:MARU Goldstein Subjective: * Chief Complaints: * ???At Risk FootcarePainful N ail(s) aggrevated by shoes and causing difficulty standing/walking.Foot pain * HPI: ???At Risk footcare:?Pt States Last PCP Visit:?Date?11/18/2023 ???Foot Pain:?Nature:?burning , radiating , shooting , tingling.?Location:?B/L.?Duration:?several years.?Onset:?unknown.?Course:?worse.?Aggravated:?any pressure.?Treatments:?pain medication per PCP for Neuropathy, pt going for appt with [facility] from Ortho referral.? * [...] condition. ?Marital status: , . 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 * Medications:?TakingActemra 1 62 MG/0.9ML Solution Prefilled [...] - G62.9???Specify :Chronic problem, Worse (4)???3.?Atherosclerosis of [place] artery of both lower extremities, with unspecified [...] use of a nail nipper and/or dremel-type ice grinder, to a more viable healthy nail plate [...] to maintain effectiveness in symptomatic relief - 60826.?Keratoma Treatment:?Parring or Cutting of Benign Hyperkeratotic Lesion(s)?(-57) More than 4 Lesions - The Benign hyperkeratotic lesions, ( 6 ) in total, locations as stated and described in exam, were pared, and/or cut utilizing a sterile 15 blade, tissue nippers, and/or power dremel instrumentation - 25105.? * Procedure Codes:?20850 DEBRI DE NAIL, 6 OR MORE, Modifiers: XS 55799 TRIM SKIN LESIONS, OVER 4, Modifiers: XS , Q8 * Follow Up:?2 Months * Images: * Sign off status: Completed true * Provider:?Nancy Hardy DPM Date:? Generated for Katlin ramirez/Cece/Jemima on:?01/29/2024 11:37 AM EST History and Physical Notes * HPI (History of Present Illness) Category Sub-Category Detail Notes Category Not es At Risk footcare Pt States Last PCP Visit: Date: 4 Foot Pain Nature: burning , radiat ing , shooting , tingling Location: B/L Duration: several years Onset: unknown Course: worse Aggravated: any pressure Treatments: pain medication per PCP for Neuropathy, pt going for appt with [facility] from Ortho referral Examination [...]
--- OUTSIDE RECORDS SUMMARY | 2024-01-29 11:38 | XMS_ITS | Patient Health Record ---
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) Active confirmed Problem Mononeuropathy of lower limb (806495898) Neuritis of right foot (G57.91) Active confirmed Problem 01867354 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 Problem Atherosclerosis of [place] artery of both lower extremities, with unspecified presence of clinical manifestation (I70.203) Active confirmed Problem 90080926706113917 Atherosclerosi s of artery of both lower extremities (I70.203) Active confirmed Problem 30005467333791780 Neuropathic ul cer of right foot with fat layer exposed (L97.512) Active confirmed Vital Signs Blood pressure diastolic 70 mm Hg 01/09/2024 Height 6ft 4in in 01/09/2024 Blood pressure systolic 132 mm Hg 01/09/2024 Weight 425 lbs 01/09/2024 BMI 51.73 kg/m2 01/09/2024 Encounters Encounter Location Date Provider Diagnosis [facility] [place] [address] [place] [address] 01/31/2023 Nancy Perica Neuropathy G62.9 ; Xerosis of skin L85.3 ; Plantar fat pad atrophy of left foot M21.6X2 ; Tinea unguium B35.1 ; Pes planus of left foot M21.42 ; Pes planus of right foot M21.41 ; Pain in toe of left foot M79.675 and Pain in toe of right foot M79.[address] [address] 04/11/2023 Nancy Hardy Atherosclerosis of [place] artery of both lower extremities, with unspecified presence of clinical manifestation I70.203 ; Neuropathy G62.9 ; Tinea unguium B35.1 ; Pain in right toe(s) M79.674 and Pain in left toe(s) M79.[address] [address] 06/18/2023 Nancy Hardy Atherosclerosis of [place] artery of both lower extremities, with unspecified presence of clinical manifestation I70.203 ; Neuropathy G62.9 ; Tinea unguium B35.1 ; Pain in right toe(s) M79.674 and Pain in left toe(s) M79.[address] [address] 01/09/2024 Nancy Hardy Neuropathy G62.9 ; Tinea unguium B35.1 ; Atherosclerosis of [place] artery of both lower extremities, with unspecified presence of clinical manifestation I70.203 ; Pain in right toe(s) M79.674 and Pain in left toe(s) M79.[address] [address] 10/27/2023 Nancy Hardy Assessments Encounter Date Diagnosis (ICD Code) Assessment Notes Treatment Notes Treatment Clinical Notes Section Notes 01/31/2023 Neuropathy (ICD-10 - G62.9) 01/31/2023 Xerosis of skin (ICD-10 - L85.3) 04/11/2023 Neuropathy (ICD-10 - G62.9) 04/11/2023 Atherosclerosis of [place] artery of both lower extremities, with unspecified presence of clinical manifestation (ICD-10 - I70.203) 06/18/2023 Atherosclerosis of [place] artery of both lower extremities, with unspecified presence of clinical manifestation (ICD-10 - I70.203) 01/09/2024 Tinea unguium (ICD-10 - B35.1) 01/09/2024 Neuropathy (ICD-10 - G62.9) 01/09/2024 Atherosclerosis of [place] artery of both lower extremities, with unspecified [...] 3V 09/18/2022 Next Appt Details Provider Name:Nancy il, 03/24/2024 03:30:00 PM, [address] [place], [address], Insurance Providers Payer Name Payer Address Payer Phone Subscriber Number Group Number Insured Name Patient Relationship to Insured Coverage Start Date Coverage End Date Medicare National [facility] [address] [place] [address] [id number] Dinh Craven Self - patient is the insured [facility] [address] [place] [address] [id number] Dinh Craven Self - patient is the [...]
--- OUTSIDE RECORDS SUMMARY | 2024-01-29 11:38 | XMS_ITS ---
Author Organization [facility] Address [address] [place] [address] Care Team Providers Care Hog Sticker Name Role Phone Diego Gallagher Primary Care Provider Unav ailable Nancy Hardy [phone] Encounters Encounter Location Date Provider Diagnosis [address] [address] 10/28/2023 Nancy Hardy Plan Of Treatment Next Appt Details Provider Name:Nancy li, 03/24/2024 03:30:00 PM, [address] [place] [address], [phone], Progress Notes * Dinh BUCKLEY RDOB:[birth year] (68 yo M)Acc No.[id number]:10/28/2023 Progress Note Patient:?Dinh BUCKLEY Provider:?Nancy Hardy DPM :1955???Age:68 Y???Sex:Male Raj e:10/28/2023 Address:[address] [place], [place] [address] Pcp:MARU Goldstein Subjective: * Chief Complaints: * ??? * Medical History:? Objective: * Vitals:? Assessment: Plan: * Treatment: * Images: * The named appointment provid er may or may not be the originator of this progress note, and it is not deemed complete until electronically signed by the appointment provider. Sign off status: Pending * Provider:?Nancy Hardy DPM Date:?11/2023 Generated for Katlin ramirez/Cece/Jemima on:?01/29/2024 11:37 AM EST
--- OUTSIDE RECORDS SUMMARY | 2024-01-29 11:38 | XMS_ITS ---
Author Organization [facility] Address [address] [place] [address] Care Team Providers Care Computed Tomography Scanner Operator Name Role Phone Diego Gallagher Primary Care Provider Unav ailable Nancy Hardy [phone] REASON FOR VISIT cx 10/27 Encounters Encounter Location Date Provider Diagnosis [facility] [address] [place] [address] 10/27/2023 Nancy Hardy Plan Of Treatment Next Appt Details Provider Name:Nancy li, 03/24/2024 03:30:00 PM, [address] [place], [address], Progress Notes * Dinh BUCKLEY RDOB:[birth year] (68 yo M)Acc No.[id number]:10/27/2023 Patient:?Dinh Buckley :1955???Age:68 Y???Sex:Male Address:[address] [place], [place] [address], [address] * true * Date:? Generated for Printi ng/Faxing/eTransmitting on:?01/29/2024 11:37 AM EST
== END 2024-01-29 13:51 | disposition home or self-care (01) ==
LOC: HO.HUSH 11:35
PROVIDERS: PCP Nurse Practitioner Family; Visit Provider Urology
DX: N30.20 Other chronic cystitis without hematuria (principal); N32.0 Bladder-neck obstruction
CPT/HCPCS: 99442

== ENCOUNTER → 2024-01-29 11:35 | Outpatient (BNVA) | payer MEDICARE, SELFPAY | PROVIDERS: PCP Nurse Practitioner Family; Visit Provider Urology ==

== ENCOUNTER 2024-01-30 09:57 | Outpatient (AMB) | payer MEDICARE, SELFPAY ==
--- OUTSIDE RECORDS SUMMARY | 2024-01-30 10:00 | XMS_ITS ---
Author Organization [facility] Address [address] [place] [address] Care Team Providers Care Space Studies Faculty Member Name Role Phone Diego Gallagher Primary Care Provider Unav ailable Nancy Hardy [phone] REASON FOR VISIT cx 10/27 Encounters Encounter Location Date Provider Diagnosis [facility] [address] [place] [address] 10/27/2023 Nancy Hardy Plan Of Treatment Next Appt Details Provider Name:Nancy li, 03/24/2024 03:30:00 PM, [address] [place], [address], Progress Notes * Dinh BUCKLEY RDOB:[birth year] (68 yo M)Acc No.[id number]:10/27/2023 Patient:?Dinh Buckley :1955???Age:68 Y???Sex:Male Address:[address] [place], [place] [address]ays [facility] [place], [address] * true * Date:? Generated for Printi ng/Faxing/eTransmitting on:?01/30/2024 10:00 AM EST
--- OUTSIDE RECORDS SUMMARY | 2024-01-30 10:00 | XMS_ITS ---
Author Organization [facility] Address [address] [facility] [place] [address] Care Team Providers Care Dispatcher Clerk Name Role Phone Diego Gallagher Primary Care Provider Unav ailable Nancy Hardy Unavailable [phone] Allergies No Known Allergies REASON FOR VISIT [...] 024 Encounters Encounter Location Date Provider Diagnosis [facility] [address] 01/09/2024 Nancy Mohamuda Neuropathy G62.9 ; Tinea unguium B35.1 ; Atherosclerosis of [place] artery of both lower extremities, with unspecified presence of clinical manifestation I70.203 ; Pain in right toe(s) M79.674 and Pain in left toe(s) M79.675 Assessments Encounter Date Diagnosis (ICD Code) Assessment Notes Treatment Notes Treatment Clinical Notes Section Notes 01/09/2024 Neuropathy (ICD-10 - G62.9) 01/09/2024 Tinea unguium (ICD-10 - B35.1) 01/09/2024 Atherosclerosis of [place]ann[place] artery of both lower extremities, with unspecified presence of clinical manifestation (ICD-10 - I70.203) 01/09/2024 Pain in right toe(s) (ICD-10 - M79.674) 01/09/2024 Pain in left toe(s) (ICD-10 - M79.675) Plan Of Treatment Next Appt Details Follow Up: 2 Months, Reason: Provider Name:Nancy li, 03/24/2024 03:30:00 PM, [address] [place] [address], [phone], Procedure Notes * Category Sub-Category Detail [...] use of a nail nipper and/or dremel-type valve grinder, to a more viable healthy nail [...] to maintain effectiveness in symptomatic relief - 30285 Keratoma Treatment Parring or Cutting o f Benign Hyperkeratotic Lesion(s) (-57) More than 4 Lesions - The Benign hyperkeratotic lesions, ( 6 ) in total, locations as stated and described in exam, were pared, and/or cut utilizing a sterile 15 blade, tissue nippers, and/or power dremel instrumentation - 50026 Progress Notes * Dinh BUCKLEY RDOB:[birth year] (68 yo M)Acc No.[id number]:01/09/2024 Progress Note Patient:?Dinh BUCKLEY Provider:?Nancy Hardy DPM :1955???Age:68 Y???Sex:Male Raj e:01/09/2024 Address: [id number] Pcp:MARU Goldstein Subjective: * Chief Complaints: * ???At Risk FootcarePainful N ail(s) aggrevated by shoes and causing difficulty standing/walking.Foot pain * HPI: ???At Risk footcare:?Pt States Last PCP Visit:?Date?11/18/2023 ???Foot Pain:?Nature:?burning , radiating , shooting , tingling.?Location:?B/L.?Duration:?several years.?Onset:?unknown.?Course:?worse.?Aggravated:?any pressure.?Treatments:?pain medication per PCP for Neuropathy, pt going for appt with [facility] from Ortho referral.? * [...] condition. ?Marital status: , . ?Occupation: retired: [employer]. * Medications:?TakingActemra 1 62 MG/0.9ML Solution Prefilled [...] - G62.9???Specify :Chronic problem, Worse (4)???3.?Atherosclerosis of shoshone[place]bann[place] artery of both lower extremities, with unspecified [...] use of a nail nipper and/or dremel-type valve grinder, to a more viable healthy nail [...] to maintain effectiveness in symptomatic relief - 87662.?Keratoma Treatment:?Parring or Cutting of Benign Hyperkeratotic Lesion(s)?(-57) More than 4 Lesions - The Benign hyperkeratotic lesions, ( 6 ) in total, locations as stated and described in exam, were pared, and/or cut utilizing a sterile 15 blade, tissue nippers, and/or power dremel instrumentation - 19304.? * Procedure Codes:?15125 DEBRI DE NAIL, 6 OR MORE, Modifiers: XS 41769 TRIM SKIN LESIONS, OVER 4, Modifiers: XS , Q8 * Follow Up:?2 Months * Images: * Sign off status: Completed true * Provider:?Nancy Hardy DPM Date:? Generated for Katlin ramirez/Cece/Jemima on:?01/30/2024 09:59 AM EST History and Physical Notes * [...] for Neuropathy, pt going for appt with [facility] from Ortho referral Examination [...]
--- OUTSIDE RECORDS SUMMARY | 2024-01-30 10:00 | XMS_ITS | Patient Health Record ---
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) Active confirmed Problem Mononeuropathy of lower limb (454252780) Neuritis of right foot (G57.91) Active confirmed Problem 66067546 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 Problem Atherosclerosis of [place] artery of both lower extremities, with unspecified presence of clinical manifestation (I70.203) Active confirmed Problem 70049354822298811 Atherosclerosi s of artery of both lower extremities (I70.203) Active confirmed Problem 14630374524368392 Neuropathic ul cer of right foot with fat layer exposed (L97.512) Active confirmed Vital Signs Blood pressure diastolic 70 mm Hg 01/09/2024 Height 6ft 4in in 01/09/2024 Blood pressure systolic 132 mm Hg 01/09/2024 Weight 425 lbs 01/09/2024 BMI 51.73 kg/m2 01/09/2024 Encounters Encounter Location Date Provider Diagnosis [facility] [place] [address] [place] [address] 01/31/2023 Nancy Perica Neuropathy G62.9 ; Xerosis of skin L85.3 ; Plantar fat pad atrophy of left foot M21.6X2 ; Tinea unguium B35.1 ; Pes planus of left foot M21.42 ; Pes planus of right foot M21.41 ; Pain in toe of left foot M79.675 and Pain in toe of right foot M79.[address] [address] 04/11/2023 Nancy Hardy Atherosclerosis of lower [place] artery of both lower extremities, with unspecified presence of clinical manifestation I70.203 ; Neuropathy G62.9 ; Tinea unguium B35.1 ; Pain in right toe(s) M79.674 and Pain in left toe(s) M79.[address] [address] 06/18/2023 Nancy Hardy Atherosclerosis of lower [place] artery of both lower extremities, with unspecified presence of clinical manifestation I70.203 ; Neuropathy G62.9 ; Tinea unguium B35.1 ; Pain in right toe(s) M79.674 and Pain in left toe(s) M79.[address] [address] 01/09/2024 Nancy Hardy Neuropathy G62.9 ; Tinea unguium B35.1 ; Atherosclerosis of [place] artery of both lower extremities, with unspecified presence of clinical manifestation I70.203 ; Pain in right toe(s) M79.674 and Pain in left toe(s) M79.[address] [address] 10/27/2023 Nancy Hardy Assessments Encounter Date Diagnosis (ICD Code) Assessment Notes Treatment Notes Treatment Clinical Notes Section Notes 01/31/2023 Neuropathy (ICD-10 - G62.9) 01/31/2023 Xerosis of skin (ICD-10 - L85.3) 04/11/2023 Neuropathy (ICD-10 - G62.9) 04/11/2023 Atherosclerosis of [place] artery of both lower extremities, with unspecified presence of clinical manifestation (ICD-10 - I70.203) 06/18/2023 Atherosclerosis of lower [place] artery of both lower extremities, with unspecified presence of clinical manifestation (ICD-10 - I70.203) 01/09/2024 Tinea unguium (ICD-10 - B35.1) 01/09/2024 Neuropathy (ICD-10 - G62.9) 01/09/2024 Atherosclerosis of lower [place] artery of both lower extremities, with unspecified [...] Provider Name:Nancy li, 03/24/2024 03:30:00 PM, [address] [place], [address], Insurance Providers Payer Name Payer Address Payer Phone Subscriber Number Group Number Insured Name Patient Relationship to Insured Coverage Start Date Coverage End Date Medicare National [facility] [address] [place] [address] [phone] [id number] Dinh Craven Self - patient is the insured [facility] [address] [place] [address] [id number] Dinh Craven Self - patient is the [...]
--- OUTSIDE RECORDS SUMMARY | 2024-01-30 10:00 | XMS_ITS ---
Author Organization [facility] Address [address] [place] [address] Care Team Providers Care Herbicide Service Sales Representative Name Role Phone Diego Gallagher Primary Care Provider Unav ailable Nancy Hardy [phone] Encounters Encounter Location Date Provider Diagnosis [address] [address] 10/28/2023 Nancy Hardy Plan Of Treatment Next Appt Details Provider Name:Nancy li, 03/24/2024 03:30:00 PM, [address] [place] [address], [address], Progress Notes * Dinh BUCKLEY RDOB:[birth year] (68 yo M)Acc No.[id number]:10/28/2023 Progress Note Patient:?Dinh BUCKLEY Provider:?Nancy Hardy DPM :1955???Age:68 Y???Sex:Male Raj e:10/28/2023 Address:[address] [place], [place] [address] Pcp:MARU Goldstein Subjective: * Chief Complaints: * ??? * Medical History:? Objective: * Vitals:? Assessment: Plan: * Treatment: * Images: * The named appointment provid er may or may not be the originator of this progress note, and it is not deemed complete until electronically signed by the appointment provider. Sign off status: Pending * Provider:?Nancy Hardy DPM Date:?11/2023 Generated for Katlin ramirez/Cece/Jemima on:?01/30/2024 10:00 AM EST
--- NOTE | 2024-01-30 10:20 | MHC.OFFVIS ---
Intake Visit Reasons: Inj- RT right knee Durolane Intake Note: Dinh a 68 year old male who presents today for a right knee Durolane injection. Patient reports injection provided him with relief for 6 months. He would like to repeat injection. He complains of left knee pain and stiffness. Allergies No Known Allergies [No Known Allergies*] Allergy (Verified 01/30/24 10:35) Medication List - Last Reconciled 01/30/24 by Angella Villalta PA-C albuterol sulfate 90 mcg/actuation 2 puffs PO Q6H PRN amiodarone 200 mg PO DAILY 90 days ammonium lactate 12% 1 appl topical DAILY Anoro Ellipta 62.5-25 mcg/actuation (umeclidinium-vilanterol) 1 inh PO DAILY NS apixaban (Eliquis) 5 mg PO BID ascorbic acid (vitamin C) 1 g PO DAILY 90 days atorvastatin 80 mg PO BEDTIME 90 days bumetanide 2 mg (2 x 1 mg) PO DAILY cefuroxime axetil 500 mg PO BID 7 days clotrimazole 10 mg mucous membrane .five times daily docusate sodium (Colace) 100 mg PO BID doxazosin 8 mg PO BEDTIME 90 days duloxetine 60 mg PO DAILY finasteride 5 mg PO DAILY 90 days lidocaine HCl 2% (Lidocaine Viscous) 1 appl mucous membrane BID PRN methenamine hippurate 1 g PO DAILY 90 days phenazopyridine 100 mg PO TIDWM PRN [Powered bariatric recliner As directed] pregabalin 150 mg PO TID 90 days ropinirole 2 mg PO TID 90 days silver sulfadiazine 1% (Silvadene) 1 appl topical BID spironolactone 50 mg (2 x 25 mg) PO DAILY tocilizumab (Actemra ACTPen) 162 mg subcut SA@0900 walker daily use (rolling sitting walker-bariatric size needed) zolpidem 5 mg PO BEDTIME PRN HPI HPI Inj- RT right knee Durolane: Details: 68-year-old male who returns to the office today for a right knee Durolane injection. FORMERLY [facility], [facility] Medical History Paroxysmal atrial fibrillation Congestive heart failure Testicular swelling Osteoarthritis of right knee Melanoma History of cardioversion Hereditary lymphedema Venous insufficiency Morbid obesity Lymphedema COPD (chronic obstructive pulmonary disease) Sensory neuropathy COVID-19 Respiratory failure with hypoxia Restrictive lung disease COPD (chronic obstructive pulmonary disease) JEFFRY on CPAP MATUTE (dyspnea on exertion) Chronic cystitis Bladder outlet obstruction Restless leg syndrome Traumatic complete tear of right rotator cuff Injury of right rotator cuff History of diverticulitis History of umbilical hernia Surgical History Hx of colonoscopy History of appendectomy History of arthroscopy of left knee Family History Father Arthritis Diabetes Mother Arthritis Kidney stones Family/Other Arthritis Sister No problems noted. Sister No problems noted. Son No problems noted. Social History Household Members: Spouse Household Members Other:: Floridalma [facility]: [facility] Do you presently have visiting nurse or other home services: Yes (health care something ) Alcohol intake: current Alcohol intake frequency: 0-2 drinks per day Alcohol type: beer Comment: refusing bed alarm Patient Tobacco Use Status: Former Tobacco user Tobacco use type: Cigarette Cigarette Packs Per Day: 1 Cigarettes Per Day: 20.0 Years Smoked: 30 years e-Cigarette/Vaping Use: Never Used Second Hand Smoke Exposure: No Substance Use Type: Marijuana Advance Directives Date on File: 05/16/20 service: No Current occupational status: retired 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 Tenderness along the medial and lateral joint line. Full ROM with crepitus. Negative Minal?s. No ligamentous laxity. NVI. Office Procedures AMB Joint Injection/Aspiration Joint Injection/Aspiration Primary Site: right knee Prep: site was prepped using aseptic technique, ethochloride spray was applied and injection warnings given Injected: in the joint Approach Used: anterolateral Procedure: The patient tolerated the procedure well Coding 97243 - Glenohumeral/Tronchanteric Bursa/Intraarticular Procedure code (CPT) selection complete Assessment & Plan Assessment & Plan (1) Osteoarthritis of right knee: Code(s): M17.11 - Unilateral primary osteoarthritis, right knee Category: Medical Qualifiers: Osteoarthritis type: primary Qualified Code(s): M17.11 - Unilateral primary osteoarthritis, right knee Plan We discussed options today, which include Durolane injection. The patient did consent to move forward with the right knee Durolane injection, which was tolerated well. I recommended rest, ice, and elevation and OTC anti-inflammatories as needed for discomfort. If symptoms persist or worsens over the next 6-8 weeks, patient will contact the office, otherwise follow-up as needed. I also ordered a course of physical therapy for his bilateral knees to help with conditioning. Orders: Orders PT Evaluation and Treatment Today M17.11 - Unilateral primary osteoarthritis, right knee, Z96.652 - Presence of left artificial knee joint Patient Instructions: Scribed for Angella Villalta PA-C, by Cl Helton medical office assistant, on 01/30/2024 at 10:30 AM EST.? I, Angella Villalta PA-C, have personally reviewed and agree with the information entered by the scribe. Coding Level of Care Code Procedure Only Diagnoses Primary osteoarthritis of right knee M17.11 Osteoarthritis type: primary CPT Codes Coding - Joint 7: 01165 - Glenohumeral/Tronchanteric Bursa/Intraarticular ([id number])
== END 2024-01-30 10:47 | disposition home or self-care (01) ==
PROVIDERS: PCP Nurse Practitioner Family; Visit Provider Physician Assistant
DX: M17.11 Unilateral primary osteoarthritis, right knee (principal)
CPT/HCPCS: 20610

== ENCOUNTER → 2024-01-30 09:57 | Outpatient (BNVA) | payer MEDICARE, SELFPAY | PROVIDERS: PCP Nurse Practitioner Family; Visit Provider Physician Assistant | DX: M17.11 Unilateral primary osteoarthritis, right knee (principal) | CPT/HCPCS: 20610; J7318 ==

== ENCOUNTER 2024-02-10 08:35 | Outpatient (REF) | payer MEDICARE, SELFPAY ==
--- OUTSIDE RECORDS SUMMARY | 2024-02-10 10:07 | XMS_ITS ---
Author Organization [facility] Address [address] [place] [address] Care Team Providers Care Automation Analyst Name Role Phone Diego Gallagher Primary Care Provider Unav ailable Nancy Hardy Unavailable [phone] Allergies No Known Allergies REASON FOR VISIT [...] 024 Encounters Encounter Location Date Provider Diagnosis [facility] [address] 01/09/2024 Nancy Mohamuda Neuropathy G62.9 ; Tinea unguium B35.1 ; Atherosclerosis of makah artery of both lower extremities, with unspecified presence of clinical manifestation I70.203 ; Pain in right toe(s) M79.674 and Pain in left toe(s) M79.675 Assessments Encounter Date Diagnosis (ICD Code) Assessment Notes Treatment Notes Treatment Clinical Notes Section Notes 01/09/2024 Neuropathy (ICD-10 - G62.9) 01/09/2024 Tinea unguium (ICD-10 - B35.1) 01/09/2024 Atherosclerosis of makah artery of both lower extremities, with unspecified presence of clinical manifestation (ICD-10 - I70.203) 01/09/2024 Pain in right toe(s) (ICD-10 - M79.674) 01/09/2024 Pain in left toe(s) (ICD-10 - M79.675) Plan Of Treatment Next Appt Details Follow Up: 2 Months, Reason: Provider Name:Nancy li, 03/24/2024 03:30:00 PM, [address] [place] [address], [phone], Procedure Notes * Category Sub-Category Detail [...] use of a nail nipper and/or dremel-type diamond grinder, to a more viable healthy nail [...] to maintain effectiveness in symptomatic relief - 02003 Keratoma Treatment Parring or Cutting o f Benign Hyperkeratotic Lesion(s) (-57) More than 4 Lesions - The Benign hyperkeratotic lesions, ( 6 ) in total, locations as stated and described in exam, were pared, and/or cut utilizing a sterile 15 blade, tissue nippers, and/or power dremel instrumentation - 68925 Progress Notes * Dinh BUCKLEY RDOB:[birth year] (68 yo M)Acc No.[id number]:01/09/2024 Progress Note Patient:?Dinh BUCKLEY Provider:?Nancy Hardy DPM :1955???Age:68 Y???Sex:Male Raj e:01/09/2024 Address: [address] [id number] Pcp:MARU Goldstein Subjective: * Chief Complaints: * ???At Risk FootcarePainful N ail(s) aggrevated by shoes and causing difficulty standing/walking.Foot pain * HPI: ???At Risk footcare:?Pt States Last PCP Visit:?Date?11/18/2023 ???Foot Pain:?Nature:?burning , radiating , shooting , tingling.?Location:?B/L.?Duration:?several years.?Onset:?unknown.?Course:?worse.?Aggravated:?any pressure.?Treatments:?pain medication per PCP for Neuropathy, pt going for appt with [facility] from Ortho referral.? * [...] condition. ?Marital status: , . 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 * Medications:?TakingActemra 1 62 MG/0.9ML Solution Prefilled [...] - G62.9???Specify :Chronic problem, Worse (4)???3.?Atherosclerosis of makah artery of both lower extremities, with unspecified [...] use of a nail nipper and/or dremel-type diamond grinder, to a more viable healthy nail [...] to maintain effectiveness in symptomatic relief - 55437.?Keratoma Treatment:?Parring or Cutting of Benign Hyperkeratotic Lesion(s)?(-57) More than 4 Lesions - The Benign hyperkeratotic lesions, ( 6 ) in total, locations as stated and described in exam, were pared, and/or cut utilizing a sterile 15 blade, tissue nippers, and/or power dremel instrumentation - 04140.? * Procedure Codes:?40156 DEBRI DE NAIL, 6 OR MORE, Modifiers: XS 38714 TRIM SKIN LESIONS, OVER 4, Modifiers: XS , Q8 * Follow Up:?2 Months * Images: * Sign off status: Completed true * Provider:?Nancy Hardy DPM Date:? Generated for Katlin ramirez/Cece/Jemima on:?02/10/2024 10:07 AM EST History and Physical Notes * [...] for Neuropathy, pt going for appt with [facility] from Ortho referral Examination [...] person, place, and t gretta [facility] DP PULSES (B): 0/4, B/L PT PULSES (B): 0/4, B/L CAPILLARY FILL TIME: delayed, all digits , B/L TEMPERTURE GRADIENT (C): decreased, cool to cool, proximal to distal, B/L TROPHIC CONDITION-TEXTURE/ELASTICITY/TURGOR/HAIR GROWTH (B): decreased, B/L EDEMA (C): 4/4 , B/L CLAUDICATION (C): denies, B/L REST PAIN: denies, B/L PIGMENTATION: mottled, B/L , brawn y, B/L Nails NAILS are: Elongated, overg rown, dystrophic, lytic, greater than 3mm thick, discolored and friable with crumbly malodorous subungual debris, with pain on palpation, 1-5 B/L
[2024-02-10 13:22] LABS: Basophils Absolute Auto 0.1 X10*3/uL (0.0-0.2); Basophils Percent Auto 0.6 % (0-2); Eosinophils Absolute Auto 0.3 X10*3/uL (0.0-0.4); Eosinophils Percent Auto 1.9 % (0-4); Hematocrit 41.7 % (42.0-52.0); Hemoglobin 14.3 g/dl (14.0-18.0); Imm Gran Abs Auto 0.09 X10*3/uL (0.00-0.03); Imm Gran Pct Auto 0.6 % (0.0-0.4); Lymphocytes Absolute Auto 1.9 X10*3/uL (1.2-4.9); Lymphocytes Percent Auto 12.1 % (20-40); MANUAL DIFF FLAG SCAN; Mean Corpuscular HGB Conc 34.3 g/dl (31.0-36.0); Mean Corpuscular Volume 99.3 fL (80.0-98.0); Mean Platelet Volume 10.7 fL (9.4-12.4); Monocytes Absolute Auto 1.5 X10*3/uL (0.1-1.2); Monocytes Percent Auto 9.8 % (2-11); Neutrophils Absolute Auto 11.8 x10*3/uL (2.0-8.3); Platelet Count 259 X10*3/uL (160-400); SCAN SMEAR FLAG 1; White Blood Count 15.7 X10*3/uL (4.8-10.8)
[2024-02-10 13:24] LABS: Appearance Urine Turbid; Color Urine Yellow; Glucose Urine UA Negative (Negative); Leukocyte Esterase Urine Negative (Negative); Nitrite Urine Negative (Negative); PH 5.5 (5.0-9.0); Urine Blood Negative (Negative); Urine Ketones Trace mg/dL (Negative); Urine Protein Negative (Neg-Trace)
[2024-02-10 13:39] LABS: Alanine Aminotransferase 25 U/L (0-40); Albumin Level 3.7 g/dL (3.5-5.0); Alkaline Phosphatase 78 U/L (39-117); Anion Gap 12 (12-20); Aspartate Amino Transferase 33 U/L (5-37); Bilirubin Total 1.3 mg/dL (0.0-1.0); Blood Urea Nitrogen 14 mg/dL (9-16); Calcium 9.1 mg/dL (8.4-10.2); Carbon Dioxide 29 mmol/L (22-29); Chloride 100 mmol/L (96-108); Estimated Glomerular Filt Rate > 60; Glucose Random 117 mg/dL (60-115); Potassium 3.7 mmol/L (3.3-5.1); Sodium 137 mmol/L (135-145); Total Protein 6.8 g/dL (6.5-8.0)
[2024-02-10 13:43] LABS: SLIDE REVIEW VERIFIED
== END 2024-02-10 08:36 | disposition home or self-care (01) ==
LOC: HO.HMGCLDS 08:35
PROVIDERS: PCP Nurse Practitioner Family; Visit Provider Nurse Practitioner Family
DX: Z00.00 Encounter for general adult medical examination without abnormal findings (principal); R60.0 Localized edema; M19.042 Primary osteoarthritis, left hand; M19.041 Primary osteoarthritis, right hand; M06.00 Rheumatoid arthritis without rheumatoid factor, unspecified site
CPT/HCPCS: 20600; 36415; 80053; 81003; 83880; 84443; 85025; 96127; 99212; J2003; J3300

== ENCOUNTER 2024-02-10 08:35 | Outpatient (AMB) | payer MEDICARE, SELFPAY ==
[2024-02-10 08:38] VITALS: BP 110/70; PULSE 86; O2SAT 93; BMI 51.7
--- NOTE | 2024-02-10 08:38 | AM.OFFVISMDC ---
Intake Vital Signs 02/10/24 08:38 Height 6 ft 4 in Weight 425 lb BMI 51.7 BP 110/70 Blood Pressure Location Lt brachial Position Sitting Pulse 86 Pulse Source Pulse Oximeter Pulse Oximetry (%) 93 Oxygen Delivery Method Room Air Intake Visit Reasons: V G0439 - see comments Intake Note: pt is here for MWV Print Journalist Required: No Accompanied by: Self / Same As Patient Allergies No Known Allergies [No Known Allergies*] Allergy (Verified 02/10/24 10:03) Medication List - Last Reconciled 02/10/24 by DIANA PickettP- albuterol sulfate 90 mcg/actuation 2 puffs PO Q6H PRN amiodarone 200 mg PO DAILY 90 days ammonium lactate 12% 1 appl topical DAILY Anoro Ellipta 62.5-25 mcg/actuation (umeclidinium-vilanterol) 1 inh PO DAILY NS apixaban (Eliquis) 5 mg PO BID ascorbic acid (vitamin C) 1 g PO DAILY 90 days atorvastatin 80 mg PO BEDTIME 90 days bumetanide 2 mg (2 x 1 mg) PO DAILY clotrimazole 10 mg mucous membrane .five times daily docusate sodium (Colace) 100 mg PO BID doxazosin 8 mg PO BEDTIME 90 days duloxetine 60 mg PO DAILY finasteride 5 mg PO DAILY 90 days lidocaine HCl 2% (Lidocaine Viscous) 1 appl mucous membrane BID PRN methenamine hippurate 1 g PO DAILY 90 days phenazopyridine 100 mg PO TIDWM PRN [Powered bariatric recliner As directed] pregabalin 150 mg PO TID 90 days ropinirole 2 mg PO TID 90 days silver sulfadiazine 1% (Silvadene) 1 appl topical BID spironolactone 50 mg (2 x 25 mg) PO DAILY 90 days tocilizumab (Actemra ACTPen) 162 mg subcut SA@0900 walker daily use (rolling sitting walker-bariatric size needed) zolpidem 5 mg PO BEDTIME PRN Do you need a note to return to daycare/school/sports/work: No HPI [facility] [[email or web address]] G0439 - see comments HPI Details here for a AWV. [place] of care and PPP placed in scan pile. HPI Comments History of Present Illness Details leg edema: ongoing, seeing cardiology and pulmonary. Labs ordered including BNP PFSH Medical History Paroxysmal atrial fibrillation Congestive heart failure Testicular swelling Osteoarthritis of right knee Melanoma History of cardioversion Hereditary lymphedema Venous insufficiency Morbid obesity Lymphedema COPD (chronic obstructive pulmonary disease) Sensory neuropathy COVID-19 Respiratory failure with hypoxia Restrictive lung disease COPD (chronic obstructive pulmonary disease) JEFFRY on CPAP MATUTE (dyspnea on exertion) Chronic cystitis Bladder outlet obstruction Restless leg syndrome Traumatic complete tear of right rotator cuff Injury of right rotator cuff History of diverticulitis History of umbilical hernia Surgical History Hx of colonoscopy History of appendectomy History of arthroscopy of left knee Family History Father Arthritis Diabetes Mother Arthritis Kidney stones Family/Other Arthritis Sister No problems noted. Sister No problems noted. Son No problems noted. Social History Household Members: Spouse Household Members Other:: Floridalma Housing: Condominium Do you presently have visiting nurse or other home services: Yes (health care something ) Alcohol intake: current Alcohol intake frequency: 0-2 drinks per day Alcohol type: beer Comment: refusing bed alarm Patient Tobacco Use Status: Former Tobacco user Tobacco use type: Cigarette Cigarette Packs Per Day: 1 Cigarettes Per Day: 20.0 Years Smoked: 30 years e-Cigarette/Vaping Use: Never Used Second Hand Smoke Exposure: No Substance Use Type: Marijuana Advance Directives Date on File: 05/16/20 service: No Current occupational status: retired 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 Cognitive needs: No Hearing needs: No Vision needs: No Questionnaire Medicare Wellness Checkup What [age] What gender do you identify with?: male During the past 4 weeks, how much have you been bothered by emotional problems such as feeling anxious, depressed, irritable, sad or downhearted, and blue?: slightly During the past 4 weeks, has your physical & emotional health limited your social activities with family, friends, neighbors, or groups?: moderately During the past 4 weeks, how much bodily pain have you generally had?: severe pain During the past 4 weeks, was someone available to help you if you needed & wanted help?: yes, a little During the past 4 weeks, what was the hardest physical activity you could do for at least 2 minutes?: light Can you get to places out of walking distance without help? (For eg., can you travel alone on buses, taxis or drive your car?): Yes Can you go shopping for groceries or clothes without someone's help?: No Can you prepare your own meals?: Yes Can you do your housework without help?: No Because of any health problems, do you need the help of another person with your personal care needs such as eating, bathing, dressing or getting around the house?: No Can you handle your own money without help?: Yes During the past 4 weeks, how would you rate your health in general?: poor During the past 4 weeks how have things been going for you?: good & bad parts about equal Are you having difficulties driving your car?: no Do you always fasten your seat belt when you are in a car?: yes, usually During past 4 weeks, have you been bothered by the following: never: Trouble eating well? and Problems using the telephone?, seldom: Falling or dizzy when standing up and Teeth or denture problems?, sometimes: Sexual problems? and always: Tiredness or fatigue? Have you fallen 2 or more times in the past year?: No Are you afraid of falling?: Yes Are you a smoker?: no During the past 4 weeks, how many drinks of wine, beer, or other alcoholic beverages did you have?: 2-5 drinks per week Do you exercise for about 20 minutes 3 or more times a week?: yes, some of the time Have you been given information to help with the following?: yes: Hazards in your house that might hurt you? and yes: Keeping track of your medications? How often do you have trouble taking medicines the way you have been told to take them?: I always take medicine as prescribed How confident are you that you can control & manage most of your health problems?: not very confident What is your race?: White Mini Mental State Exam (MMSE) Orientation What is the (year) (season) (date) (day) (month)?: year, season, date, day and month Where are we (state) (county) (town or city) (hospital) (floor)?: state, county, town or city and hospital/clinic Registration Name of 3 unrelated objects clearly and slowly, then ask patient to repeat all 3 of them. (1st repeat determines score. Make sure they can repeat all three): object 1, object 2 and object 3 Attention & Calculation (CHOOSE ONE) Spell WORLD backwards (DLROW): 5 letters Recall Ask patient to repeat the 3 items from question #3.: object 1, object 2 and object 3 Language Show patient a wristwatch & ask what it is. Repeat for pencil.: watch and pencil Ask the patient to repeat the phrase 'No ifs, ands, or buts' after you.: correct Ask the patient to 'take a piece of paper with their right hand' 'fold paper in half' 'place paper on floor': take paper in right hand, fold paper in half and place paper on floor Print the sentence 'CLOSE YOUR EYES' on a piece. If patient actually closes eyes then score.: followed written direction Give patient a blank piece of paper & ask to write a sentence. Score if it contains a noun & verb.: sentence contains subject and verb Ask patient to copy figure of intersecting pentagons exactly. Score if all 10 angles & 2 intersects are included.: all 10 angles present & 2 are intersected Score Score: 29 Activity of Daily Living Bathing - sponge bath, tub bath or shower: receives no assistance (gets in/out by self, if usual bathing means Dressing - getting clothes from closets & drawers, including inner/outer garments & fasteners.: gets clothes & gets completely dressed without help Toileting - going to the 'toilet room' for urine/bowel elimination & cleaning self/arranging clothes: goes to toilet room, cleans self, arranges clothes without help Transfer: moves in & out of bed and chair without help (may use support object) Continence: controls urination/bowel movements completely by self Feeding: feeds self without help Total Score: 0 Information obtained from: patient Using telephone: independent Traveling: independent Shopping: independent Preparing meals: independent Housework: independent Taking medicine: independent Managing money: independent PHQ-9 Over the last 2 weeks, how often have you been bothered by any of the following problems? 1. Little interest or pleasure in doing things: several days 2. Feeling down, depressed, or hopeless: several days 3. Trouble falling or staying asleep, or sleeping too much: several days 4. Feeling tired or having little energy: more than half the days 5. Poor appetite or overeating: not at all 6. Feeling bad about yourself - or that you are a failure or have let yourself or your family down: several days 7. Trouble concentrating on things, such as reading the newspaper or watching television: not at all 8. Moving or speaking so slowly that other people could have noticed. Or the opposite - being so fidgety or restless that you have been moving around a lot more than usual: not at all 9. Thoughts that you would be better off or of hurting yourself in some way: not at all Total score: 6 Depression Screening Interpretation: Negative Depression Screening Done: Yes 95197 - PHQ-9 Billing: Yes Source: Developed by Drs. Marc Victoria, Karen Nguyen, Tristan Dominguez and colleagues, with an educational juan from [employer]. Physical Exam Vital Signs: Last Vital Signs Pulse 86 02/10/24 08:38 BP 110/70 02/10/24 08:38 Pulse Ox 93 02/10/24 08:38 Oxygen Delivery Method Room Air 02/10/24 08:38 BMI result Body Mass Index 51.7 Resp Other: moving air bilat, dim Cardio Rate: regular rate Rhythm: regular rhythm Heart sounds: S1 normal heart sound present and S2 normal heart sound present Neuro Other: neg rhomberg. able to stand from sitting position (uses rolling walker without difficulty). passed whisper test, unable to tandem walk Extrem Other: +3 to BLE (compression/stockings present) Assessment & Plan Assessment & Plan (1) Leg edema: Code(s): R60.0 - Localized edema (2) Encounter for annual wellness visit (AWV) in Medicare patient: Code(s): Z00.00 - Encounter for general adult medical examination without abnormal findings Plan . Orders: Orders Complete Blood Count Auto Diff Today R60.0 - Localized edema Comprehensive Met. Panel Today R60.0 - Localized edema UA CC w/rflx Micro + Cult Today R60.0 - Localized edema TSH reflex Free T4 Today R60.0 - Localized edema B Type Natriuretic Peptide Today R60.0 - Localized edema Quality Reporting (2019) Depression/Bipolar (159/160/161/177) PHQ-9: Total score: 6 Coding Level of Care Code Medicare First (G0438) Est Pt Level 3 (22628) Diagnoses Leg edema R60.0 Encounter for annual wellness visit (AWV) in Medicare patient Z00.00 CPT Codes Advance Care Planning - Time spent: 1-15 minutes, on File ([id number]) Additional Codes PHQ-9 - 87359 - PHQ-9 Billing: Yes ([id number]) Advance Care Planning Forms completed: Health Care Proxy (needs signatures), MOLST (f[place] dout) and Living will (pt reports this was done already) Time spent: 1-15 minutes, on File Actual minutes spent: 8
--- OUTSIDE RECORDS SUMMARY | 2024-02-10 08:38 | XMS_ITS | Patient Health Record ---
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) Active confirmed Problem Mononeuropathy of lower limb (257518514) Neuritis of right foot (G57.91) Active confirmed Problem 26655836 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 Problem Atherosclerosis of [place] artery of both lower extremities, with unspecified presence of clinical manifestation (I70.203) Active confirmed Problem 97337188010947609 Atherosclerosi s of artery of both lower extremities (I70.203) Active confirmed Problem 58892461766904409 Neuropathic ul cer of right foot with fat layer exposed (L97.512) Active confirmed Vital Signs Blood pressure diastolic 70 mm Hg 01/09/2024 Height 6ft 4in in 01/09/2024 Blood pressure systolic 132 mm Hg 01/09/2024 Weight 425 lbs 01/09/2024 BMI 51.73 kg/m2 01/09/2024 Encounters Encounter Location Date Provider Diagnosis [facility] [place] [address] [place] [address] 04/11/2023 Nancy Perica Atherosclerosis of [place] artery of both lower extremities, with unspecified presence of clinical manifestation I70.203 ; Neuropathy G62.9 ; Tinea unguium B35.1 ; Pain in right toe(s) M79.674 and Pain in left toe(s) M79.[address] [address] 06/18/2023 Nancy Hardy Atherosclerosis of [place] artery of both lower extremities, with unspecified presence of clinical manifestation I70.203 ; Neuropathy G62.9 ; Tinea unguium B35.1 ; Pain in right toe(s) M79.674 and Pain in left toe(s) M79.[address] [address] 01/09/2024 Nancy Hardy Neuropathy G62.9 ; Tinea unguium B35.1 ; Atherosclerosis of [place] artery of both lower extremities, with unspecified presence of clinical manifestation I70.203 ; Pain in right toe(s) M79.674 and Pain in left toe(s) M79.[address] [address] 10/27/2023 Nancy Hardy Assessments Encounter Date Diagnosis (ICD Code) Assessment Notes Treatment Notes Treatment Clinical Notes Section Notes 04/11/2023 Neuropathy (ICD-10 - G62.9) 04/11/2023 Atherosclerosis of [place] artery of both lower extremities, with unspecified presence of clinical manifestation (ICD-10 - I70.203) 06/18/2023 Atherosclerosis of [place] artery of both lower extremities, with unspecified presence of clinical manifestation (ICD-10 - I70.203) 01/09/2024 Tinea unguium (ICD-10 - B35.1) 01/09/2024 Neuropathy (ICD-10 - G62.9) 01/09/2024 Atherosclerosis of [place] artery of both lower extremities, with unspecified presence of clinical manifestation (ICD-10 - I70.203) 06/18/2023 Neuropathy (ICD-10 - G62.9) 06/18/2023 Tinea unguium (ICD-10 - B35.1) 04/11/2023 Tinea unguium (ICD-10 - B35.1) 04/11/2023 Pain in right toe(s) (ICD-10 - M79.674) 06/18/2023 Pain in right toe(s) (ICD-10 - M79.674) 01/09/2024 Pain in right toe(s) (ICD-10 - M79.674) 01/09/2024 Pain in left toe(s) (ICD-10 - M79.675) 06/18/2023 Pain in left toe(s) (ICD-10 - M79.675) 04/11/2023 Pain in left toe(s) (ICD-10 - M79.675) Plan Of Treatment Pending Test Test Name Order Date X ray : Foot, left 3V 09/04/2022 X ray : Foot, left 3V 09/18/2022 Next Appt Details Provider Name:Nancy li, 03/24/2024 03:30:00 PM, [address] [place] [address], [phone], Insurance Providers Payer Name Payer Address Payer Phone Subscriber Number Group Number Insured Name Patient Relationship to Insured Coverage Start Date Coverage End Date Medicare National [facility] [employer] [address] [facility] [place] [address] [id number] Dinh Craven Self - patient is the insured [employer] [address] [place] [address] [id number] Dinh Craven Self - patient is the insured Medical (General) History Medical History History ICD Code Arthritis asthma Back,Hip,and Knee pain Lung disease Neuropathy Poor circulation thyroid Chicken pox Joint implants/screws A fib Surgical History Surgery Date(Month/Year) knee replacement 2014 appendectomy 2016 rotator cuff 2019 Hospitalization History Reason Date(Month/Year) [facility]- 10 days - [facility]i [facility]- chest pains, a fib
--- OUTSIDE RECORDS SUMMARY | 2024-02-10 08:38 | XMS_ITS ---
Author Organization [facility] Address [address] [place] [address] Care Team Providers Care Analyst Market Intelligence Name Role Phone Diego Gallagher Primary Care Provider Unav ailable Nancy Hardy [phone] Encounters Encounter Location Date Provider Diagnosis [address] [address] 10/28/2023 Nancy Hardy Plan Of Treatment Next Appt Details Provider Name:Nancy li, 03/24/2024 03:30:00 PM, [address] [place] [address], [phone], Progress Notes * Dinh BUCKLEY RDOB:[birth year] (69 yo M)Acc No.[id number]:10/28/2023 Progress Note Patient:?Dinh BUCKLEY Provider:?Nancy Hardy DPM :1955???Age:68 Y???Sex:Male Raj e:10/28/2023 Address:[address] [place], [place] [address] Pcp:MARU Goldstein Subjective: * Chief Complaints: * ??? * Medical History:? Objective: * Vitals:? Assessment: Plan: * Treatment: * Images: * The named appointment provid er may or may not be the originator of this progress note, and it is not deemed complete until electronically signed by the appointment provider. Sign off status: Pending * Provider:?Nancy Hardy DPM Date:?11/2023 Generated for Katlin ramirez/Cece/Jemima on:?02/10/2024 08:37 AM EST
--- OUTSIDE RECORDS SUMMARY | 2024-02-10 08:38 | XMS_ITS ---
Author Organization [facility] Address [address] [place] [address] Care Team Providers Care Settlement Agent Name Role Phone Diego Gallagher Primary Care Provider Unav ailable Nancy Hardy [phone] REASON FOR VISIT cx 10/27 Encounters Encounter Location Date Provider Diagnosis [facility] [address] [place] [address] 10/27/2023 Nancy Hardy Plan Of Treatment Next Appt Details Provider Name:Nancy li, 03/24/2024 03:30:00 PM, [address] [place], [address], Progress Notes * Dinh BUCKLEY RDOB:[birth year] (68 yo M)Acc No.[id number]:10/27/2023 Patient:?Dinh Buckley :1955???Age:68 Y???Sex:Male Address:[address] [place], [place] [address], [address] * true * Date:? Generated for Printi ng/Faxing/eTransmitting on:?02/10/2024 08:38 AM EST
== END 2024-02-10 11:18 | disposition home or self-care (01) ==
PROVIDERS: PCP Nurse Practitioner Family; Visit Provider Nurse Practitioner Family
DX: Z00.00 Encounter for general adult medical examination without abnormal findings (principal); R60.0 Localized edema

== ENCOUNTER 2024-02-10 13:00 | Outpatient (AMB) | payer MEDICARE, SELFPAY ==
--- NOTE | 2024-02-10 13:13 | A.OFFVIS_ITS ---
Vital Signs 02/10/24 13:18 Height 6 ft 4 in Weight 425 lb BMI 51.7 BP 112/70 Blood Pressure Location Lt brachial Position Sitting Pulse 92 Pulse Source Pulse Oximeter Pulse Oximetry (%) 96 Oxygen Delivery Method Room Air Intake Visit Reasons: RA Intake Note: Patient last seen by Doctor Kristi Acosta on 09/29/23. Presents today for RA follow up and test results. Allergies No Known Allergies [No Known Allergies*] Allergy (Verified 02/10/24 10:03) Medication List - Last Reconciled 02/10/24 by Kristi Acosta MD albuterol sulfate 90 mcg/actuation 2 puffs PO Q6H PRN amiodarone 200 mg PO DAILY 90 days ammonium lactate 12% 1 appl topical DAILY amoxicillin-pot clavulanate 875-125 mg 1 tab PO BID 10 days Anoro Ellipta 62.5-25 mcg/actuation (umeclidinium-vilanterol) 1 inh PO DAILY NS apixaban (Eliquis) 5 mg PO BID ascorbic acid (vitamin C) 1 g PO DAILY 90 days atorvastatin 80 mg PO BEDTIME 90 days bumetanide 2 mg (2 x 1 mg) PO DAILY clotrimazole 10 mg mucous membrane .five times daily docusate sodium (Colace) 100 mg PO BID doxazosin 8 mg PO BEDTIME 90 days duloxetine 60 mg PO DAILY finasteride 5 mg PO DAILY 90 days lidocaine HCl 2% (Lidocaine Viscous) 1 appl mucous membrane BID PRN methenamine hippurate 1 g PO DAILY 90 days phenazopyridine 100 mg PO TIDWM PRN [Powered bariatric recliner As directed] pregabalin 150 mg PO TID 90 days ropinirole 2 mg PO TID 90 days silver sulfadiazine 1% (Silvadene) 1 appl topical BID spironolactone 50 mg (2 x 25 mg) PO DAILY 90 days walker daily use (rolling sitting walker-bariatric size needed) zolpidem 5 mg PO BEDTIME PRN HPI Comments Details: 69-year-old male with seronegative RA returns for follow-up. He has been using Actemra injections regularly for the last 3-4 months without any improvement. He continues to have diffuse joint pain. Initial history: This is a 67-year-old male presents for evaluation of multiple joint pain. Patient states that he has diffuse pain everywhere. Including n les, shoulders, hands, knees, ankles and feet. States that he had left knee replacement 10 years ago. He has severe right knee osteoarthritis and receives periodic steroid injections which helped for 1 or 2 months. States that he has severe bilateral hand stiffness. It lasts all day. Associated with swelling. He can hardly make a fist. States that he used to take naproxen which was quite helpful for all his joint pain but he is no longer able to take it due to being on Eliquis for AFib Of note patient has restrictive lung disease and is on home oxygen. He also has a CPAP machine for sleep apnea [facility] Medical History (Updated 02/10/24 @ 15:20 by Kristi Acosta MD) Paroxysmal atrial fibrillation Congestive heart failure Testicular swelling Osteoarthritis of right knee Melanoma History of cardioversion Hereditary lymphedema Venous insufficiency Morbid obesity Lymphedema COPD (chronic obstructive pulmonary disease) Sensory neuropathy COVID-19 Respiratory failure with hypoxia Restrictive lung disease COPD (chronic obstructive pulmonary disease) JEFFRY on CPAP MATUTE (dyspnea on exertion) Chronic cystitis Bladder outlet obstruction Restless leg syndrome Traumatic complete tear of right rotator cuff Injury of right rotator cuff History of diverticulitis History of umbilical hernia Surgical History Hx of colonoscopy History of appendectomy History of arthroscopy of left knee Family History Father Arthritis Diabetes Mother Arthritis Kidney stones Family/Other Arthritis Sister No problems noted. Sister No problems noted. Son No problems noted. Social History Household Members: Spouse Household Members Other:: Floridalma Housing: Condominium Do you presently have visiting nurse or other home services: Yes (health care something ) Alcohol intake: current Alcohol intake frequency: 0-2 drinks per day Alcohol type: beer Comment: refusing bed alarm Patient Tobacco Use Status: Former Tobacco user Tobacco use type: Cigarette Cigarette Packs Per Day: 1 Cigarettes Per Day: 20.0 Years Smoked: 30 years e-Cigarette/Vaping Use: Never Used Second Hand Smoke Exposure: No Substance Use Type: Marijuana Advance Directives Date on File: 05/16/20 service: No Current occupational status: retired 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 Cognitive needs: No Hearing needs: No Vision needs: No Review of Systems [facility] [place] Reports arthralgias, Reports joint swelling and Reports stiffness Physical Exam Vital Signs: Last Vital Signs Pulse 92 02/10/24 13:18 BP 112/70 02/10/24 13:18 Pulse Ox 96 02/10/24 13:18 Oxygen Delivery Method Room Air 02/10/24 13:18 BMI result Body Mass Index 51.7 Const General: cooperative, healthy appearing and comfortable Nutritional Appearance: obese morbidly obese Orientation/consciousness: patient oriented x3 Limitations: no limitations HEENT Head: Yes normocephalic and Yes atraumatic Resp Effort & Inspection: normal respiratory effort and able to speak in complete sentences Skin Other: Erythema of both ankles likely due to venous stasis Neuro General: patient oriented x3 Extrem Other: Bilateral diffusely puffy fingers Tenderness at the 1st CMC joints bilaterally, more prominent on the left Office Procedures AMB Joint Injection/Aspiration Joint Injection/Aspiration Details: pace Primary Site: left thumb Prep: site was prepped using sterile technique and ethochloride spray was applied Procedure: The patient tolerated the procedure well Coding Details: Risks and benefits of procedure were explained. Patient signed consent After prepping the left 1st CMC joint area with ChloraPrep, ethyl chloride spray was used then using a 27 gauge needle 12 mg of Kenalog mixed with 0.1 cc of 1% lidocaine was injected into the joint s - Small Joint Procedure code (CPT) selection complete Office Meds Kenalog 40 mg/mL suspension for injection Performing Provider: Kristi Acosta MD [place] [facility] Administered by: Kristi Acosta MD on 02/10/24 15:16 Dose Route Admin Location Dispensed Lot Number Expiration Date [facility] Marketing Analytics Analyst 12 mg intra-articular Left thumb 1 mL [id number] 08/17/25 [address]-1 [employer] lidocaine (PF) 10 mg/mL (1 %) injection solution Performing Provider: Kristi Acosta MD Performing Location[place] [facility] Administered by: Kristi Acosta MD on 02/10/24 15:16 Dose Route Admin Location Dispensed Lot Number Expiration Date [facility] Marketing Analytics Analyst 1 mg intra-articular Left thumb 2 mL [id number] 05/18/26 25985-802-96 [facility] Assessment & Plan Assessment & Plan (1) Osteoarthritis of fingers of both hands: Code(s): M19.041 - Primary osteoarthritis, right hand; M19.042 - Primary osteoarthritis, left hand Category: Medical Plan: This is a 69-year-old male who I diagnosed with seronegative RA who presents for follow-up. Patient took Orencia for months without relief followed by 3-4 months of Actemra subcu injections weekly without relief. I think at this time, there are no inflammatory symptoms. His diagnosis is bilateral hand osteoarthritis. Discontinue DMARDs Discussed different treatment options, patient does not recall having injections in the hand before. It seems that the most symptomatic 1 is the left 1st CMC joint. With patient's consent, left 1st CMC joint was injected with Kenalog. Patient tolerated the procedure well with no apparent acute side effects Follow-up as needed Plan I spent 15 minutes reviewing patient's chart, evaluating patient, counseling patient and documenting in the chart Orders: Orders AMB Joint Injection/Aspiration Today M19.041 - Primary osteoarthritis, right hand, M19.042 - Primary osteoarthritis, left hand Medications: New lidocaine (PF) 1 mg (0.1 mL) intra-articular ONCE 0.1 mL 0RF M19.041 - Primary osteoarthritis, right hand, M19.042 - Primary osteoarthritis, left hand Kenalog (triamcinolone acetonide) 12 mg (0.3 mL) intra-articular ONCE 0.3 mL 0RF NS M19.041 - Primary osteoarthritis, right hand, M19.042 - Primary osteoarthritis, left hand Coding Level of Care Code Est Pt Level 3 (89943) Diagnoses Osteoarthritis of fingers of both hands M19.041; M19.042 CPT Codes Coding - - Small joint: - Small Joint ([id number])
[2024-02-10 13:18] VITALS: BP 112/70; PULSE 92; O2SAT 96; BMI 51.7
== END 2024-02-10 14:04 | disposition home or self-care (01) ==
PROVIDERS: PCP Nurse Practitioner Family; Visit Provider Student in an Organized Health Care Education/Training Program
DX: M19.041 Primary osteoarthritis, right hand (principal); M19.042 Primary osteoarthritis, left hand; M06.09 Rheumatoid arthritis without rheumatoid factor, multiple sites
CPT/HCPCS: 20600; 99213

== ENCOUNTER 2024-02-17 08:40 | Outpatient (REF) | payer MEDICARE, SELFPAY ==
[2024-02-17 15:29] LABS: Influenza A PCR NEGATIVE (Negative); Influenza B PCR NEGATIVE (Negative); Resp Syncy Virus RNA Qual PCR NEGATIVE (Negative); SARS COV2 PCR INHOUSE NEGATIVE (Negative)
== END 2024-02-17 08:41 | disposition home or self-care (01) ==
LOC: HO.LAB 08:40
PROVIDERS: Physician Assistant; PCP Nurse Practitioner Family
DX: J06.9 Acute upper respiratory infection, unspecified (principal)
CPT/HCPCS: 0241U; 99212

== ENCOUNTER 2024-02-17 08:40 | Outpatient (AMB) | payer MEDICARE, SELFPAY ==
--- OUTSIDE RECORDS SUMMARY | 2024-02-17 08:43 | XMS_ITS ---
Author Organization [facility] Address [address] [facility] [place] [address] Care Team Providers Care Sales Representative Rural Power Name Role Phone Diego Gallagher Primary Care Provider Unav ailable Nancy Hardy Unavailable [phone] Allergies No Known Allergies REASON FOR VISIT [...] 024 Encounters Encounter Location Date Provider Diagnosis [facility] [address] 01/09/2024 Nancy Mohamuda Neuropathy G62.9 ; Tinea unguium B35.1 ; Atherosclerosis of [place] artery of both lower extremities, with unspecified presence of clinical manifestation I70.203 ; Pain in right toe(s) M79.674 and Pain in left toe(s) M79.675 Assessments Encounter Date Diagnosis (ICD Code) Assessment Notes Treatment Notes Treatment Clinical Notes Section Notes 01/09/2024 Neuropathy (ICD-10 - G62.9) 01/09/2024 Tinea unguium (ICD-10 - B35.1) 01/09/2024 Atherosclerosis of [place] artery of both lower extremities, with unspecified presence of clinical manifestation (ICD-10 - I70.203) 01/09/2024 Pain in right toe(s) (ICD-10 - M79.674) 01/09/2024 Pain in left toe(s) (ICD-10 - M79.675) Plan Of Treatment Next Appt Details Follow Up: 2 Months, Reason: Provider Name:Nancy li, 03/24/2024 03:30:00 PM, [address] [place] [address], [phone], Procedure Notes * Category Sub-Category Detail [...] use of a nail nipper and/or dremel-type billet grinder, to a more viable healthy nail [...] to maintain effectiveness in symptomatic relief - 89040 Keratoma Treatment Parring or Cutting o f Benign Hyperkeratotic Lesion(s) (-57) More than 4 Lesions - The Benign hyperkeratotic lesions, ( 6 ) in total, locations as stated and described in exam, were pared, and/or cut utilizing a sterile 15 blade, tissue nippers, and/or power dremel instrumentation - 12172 Progress Notes * Dinh BUCKLEY RDOB:[birth year] (68 yo M)Acc No.[id number]:01/09/2024 Progress Note Patient:?Dinh BUCKLEY Provider:?Nancy Hardy DPM :1955???Age:68 Y???Sex:Male Raj e:01/09/2024 Address: [id number] Pcp:MARU Goldstein Subjective: * Chief Complaints: * ???At Risk FootcarePainful N ail(s) aggrevated by shoes and causing difficulty standing/walking.Foot pain * HPI: ???At Risk footcare:?Pt States Last PCP Visit:?Date?11/18/2023 ???Foot Pain:?Nature:?burning , radiating , shooting , tingling.?Location:?B/L.?Duration:?several years.?Onset:?unknown.?Course:?worse.?Aggravated:?any pressure.?Treatments:?pain medication per PCP for Neuropathy, pt going for appt with [facility] from Ortho referral.? * [...] condition. ?Marital status: , . 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 * Medications:?TakingActemra 1 62 MG/0.9ML Solution Prefilled [...] - G62.9???Specify :Chronic problem, Worse (4)???3.?Atherosclerosis of [place] artery of both lower extremities, with unspecified [...] use of a nail nipper and/or dremel-type billet grinder, to a more viable healthy nail [...] to maintain effectiveness in symptomatic relief - 87798.?Keratoma Treatment:?Parring or Cutting of Benign Hyperkeratotic Lesion(s)?(-57) More than 4 Lesions - The Benign hyperkeratotic lesions, ( 6 ) in total, locations as stated and described in exam, were pared, and/or cut utilizing a sterile 15 blade, tissue nippers, and/or power dremel instrumentation - 03944.? * Procedure Codes:?15904 DEBRI DE NAIL, 6 OR MORE, Modifiers: XS 34930 TRIM SKIN LESIONS, OVER 4, Modifiers: XS , Q8 * Follow Up:?2 Months * Images: * Sign off status: Completed true * Provider:?Nancy Hardy DPM Date:? Generated for Katlin ramirez/Cece/Jemima on:?02/17/2024 08:43 AM EST History and Physical Notes * [...] for Neuropathy, pt going for appt with [facility] from Ortho referral Examination [...]
--- OUTSIDE RECORDS SUMMARY | 2024-02-17 08:44 | XMS_ITS ---
Author Organization [facility] Address [address] [place] [address] Care Team Providers Care Hotel Controller Name Role Phone Diego Gallagher Primary Care Provider Unav ailable Nancy Hardy [phone] Encounters Encounter Location Date Provider Diagnosis [address] [address] 10/28/2023 Nancy Hardy Plan Of Treatment Next Appt Details Provider Name:Nancy li, 03/24/2024 03:30:00 PM, [address] [place] [address], [phone], Progress Notes * Dinh BUCKLEY RDOB:[birth year] (69 yo M)Acc No.[id number]:10/28/2023 Progress Note Patient:?Dinh BUCKLEY Provider:?Nancy Hardy DPM :1955???Age:68 Y???Sex:Male Raj e:10/28/2023 Address:[address] [place], [place] [id number] Pcp:MARU Goldstein Subjective: * Chief Complaints: * ??? * Medical History:? Objective: * Vitals:? Assessment: Plan: * Treatment: * Images: * The named appointment provid er may or may not be the originator of this progress note, and it is not deemed complete until electronically signed by the appointment provider. Sign off status: Pending * Provider:?Nancy Hardy DPM Date:?11/2023 Generated for Katlin ramirez/Cece/Jemima on:?02/17/2024 08:43 AM EST
--- OUTSIDE RECORDS SUMMARY | 2024-02-17 08:44 | XMS_ITS ---
Author Organization [facility] Address [address] [place] [address] Care Team Providers Care Enterprise Engineer Name Role Phone Diego Gallagher Primary Care Provider Unav ailable Nancy Hardy [phone] REASON FOR VISIT cx 10/27 Encounters Encounter Location Date Provider Diagnosis [facility] [address] [place] [address] 10/27/2023 Nancy Hardy Plan Of Treatment Next Appt Details Provider Name:Nancy li, 03/24/2024 03:30:00 PM, [address] [place], [address], Progress Notes * Dinh BUCKLEY RDOB:[birth year] (68 yo M)Acc No.[id number]:10/27/2023 Patient:?Dinh Buckley :1955???Age:68 Y???Sex:Male Address:[address] [place], [place] [address] [place] [facility] [place], [address] * true * Date:? Generated for Printi ng/Faxing/eTransmitting on:?02/17/2024 08:43 AM EST
--- OUTSIDE RECORDS SUMMARY | 2024-02-17 08:44 | XMS_ITS | Patient Health Record ---
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) Active confirmed Problem Mononeuropathy of lower limb (214339406) Neuritis of right foot (G57.91) Active confirmed Problem 60325034 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 Problem Atherosclerosis of [place] artery of both lower extremities, with unspecified presence of clinical manifestation (I70.203) Active confirmed Problem 59962211139260655 Atherosclerosi s of artery of both lower extremities (I70.203) Active confirmed Problem 12350936950987118 Neuropathic ul cer of right foot with fat layer exposed (L97.512) Active confirmed Vital Signs Blood pressure diastolic 70 mm Hg 01/09/2024 Height 6ft 4in in 01/09/2024 Blood pressure systolic 132 mm Hg 01/09/2024 Weight 425 lbs 01/09/2024 BMI 51.73 kg/m2 01/09/2024 Encounters Encounter Location Date Provider Diagnosis [facility] [place] [address] [place] [address] 04/11/2023 Nancy Perica Atherosclerosis of [place] artery of both lower extremities, with unspecified presence of clinical manifestation I70.203 ; Neuropathy G62.9 ; Tinea unguium B35.1 ; Pain in right toe(s) M79.674 and Pain in left toe(s) M79.[address] [address] 06/18/2023 Nancy Hardy Atherosclerosis of [place] artery of both lower extremities, with unspecified presence of clinical manifestation I70.203 ; Neuropathy G62.9 ; Tinea unguium B35.1 ; Pain in right toe(s) M79.674 and Pain in left toe(s) M79.[address] [address] 01/09/2024 Nancy Hardy Neuropathy G62.9 ; Tinea unguium B35.1 ; Atherosclerosis of [place] artery of both lower extremities, with unspecified presence of clinical manifestation I70.203 ; Pain in right toe(s) M79.674 and Pain in left toe(s) M79.[address] [address] 10/27/2023 Nancy Hardy Assessments Encounter Date Diagnosis (ICD Code) Assessment Notes Treatment Notes Treatment Clinical Notes Section Notes 04/11/2023 Neuropathy (ICD-10 - G62.9) 04/11/2023 Atherosclerosis of [place] artery of both lower extremities, with unspecified presence of clinical manifestation (ICD-10 - I70.203) 06/18/2023 Atherosclerosis of [place] artery of both lower extremities, with unspecified presence of clinical manifestation (ICD-10 - I70.203) 01/09/2024 Tinea unguium (ICD-10 - B35.1) 01/09/2024 Neuropathy (ICD-10 - G62.9) 01/09/2024 Atherosclerosis of [place] artery of both lower extremities, with unspecified [...] Details Provider Name:Nancy li, 03/24/2024 03:30:00 PM, [address] [place] [address], [phone], Insurance Providers Payer Name Payer Address Payer Phone Subscriber Number Group Number Insured Name Patient Relationship to Insured Coverage Start Date Coverage End Date Medicare [facility] [employer] [address] [place] [address] [id number] Dinh Craven Self - patient is the insured [employer] [address] [place] [address] [phone] [id number] Dinh Craven Self - patient is the [...]
--- NOTE | 2024-02-17 09:15 | AM.OFFWIN_ITS ---
Intake Vital Signs 02/17/24 09:18 Weight 425 lb BP 118/74 Blood Pressure Location Lt brachial Position Sitting Pulse 76 Pulse Source Pulse Oximeter Temp 98.0 F Temp Source Oral Pulse Oximetry (%) 98 Oxygen Delivery Method Room Air Intake Visit Reasons: EP SOB, congestion, o2 turned higher than norm Intake Note: Patient here for congestion, SOB, slight cough and tenderness to the left side of back and has been present for about 6 days. Patient Tobacco Use Status: Former Tobacco user Allergies No Known Allergies [No Known Allergies*] Allergy (Verified 02/17/24 09:16) HPI HPI Comments History of Present Illness Details History - The patient is a 69-year-old male pres enting with left-sided rib pain and breathing difficulties x 7 days. - Subjective complaints include ongoing left-sided rib pain, related breathing difficulties, congestion, and generalized leg aches. - Left-sided rib pain worsens with deep breathing and accompanies an increase in home oxygen requirements. - Patient typically o 2L home O2 but has had to increase it to 4L O2 and is satting 97% with that increase. - Historical management of COPD includes supplemental oxygen, with temporary increases observed during acute exacerbations. - Peripheral and worsening leg edema, li anni lymphedema, despite increased diuretic therapy. - Pt's PCP put him on 10 days of Augment in which he started 5 days ago - Noteworthy past medical history includ es COVID-19, which compromised pulmonary function but resolved without requiring ICU care. Physical Exam General: Cooperative, healthy appearing, comfortable and no acute distress Orientation/consciousness: Patient oriented x3 Limitations: No limitations Head: Normal to inspection Ears: Hearing grossly normal bilaterally, TM's bilaterally purulent effusions with blood noted in left EAC Nose: Normal external nose present, Normal nares present and No nasal discharge present Face and sinus: Normal facial exam and Yes sinuses nontender Mouth: Normal oral and palatal mucosa present and dry mucous membranes Throat: Yes tonsils normal, Yes uvula midline. Posterior oropharynx erythema Eyes: Appearance normal, both eyes and all related structures Neck: Normal visual inspection Respiratory: DIM throughout, vesicular lower lobes, no wheezing or rales auscultated, able to speak in complete sentences, no respiratory distress, not tachypneic, no tripod positioning and no use of accessory muscles Cardiovascular: Regular rate and rhythm. Normal S1 and S2 Skin: No rashes or lesions noted Neuro: Patient oriented x3 Extremities: significant bilateral leg edema 3+ PFSH Medical History (Updated 02/17/24 @ 09:50 by Sho Walsh PA-C) Paroxysmal atrial fibrillation Congestive heart failure Testicular swelling Osteoarthritis of right knee Melanoma History of cardioversion Hereditary lymphedema Venous insufficiency Morbid obesity Lymphedema COPD (chronic obstructive pulmonary disease) Sensory neuropathy COVID-19 Respiratory failure with hypoxia Restrictive lung disease COPD (chronic obstructive pulmonary disease) JEFFRY on CPAP MATUTE (dyspnea on exertion) Chronic cystitis Bladder outlet obstruction Restless leg syndrome Traumatic complete tear of right rotator cuff Injury of right rotator cuff History of diverticulitis History of umbilical hernia Surgical History Hx of colonoscopy History of appendectomy History of arthroscopy of left knee Family History Father Arthritis Diabetes Mother Arthritis Kidney stones Family/Other Arthritis Sister No problems noted. Sister No problems noted. Son No problems noted. Social History Household Members: Spouse Household Members Other:: Floridalma Housing: Condominium Do you presently have visiting nurse or other home services: Yes (health care something ) Alcohol intake: current Alcohol intake frequency: 0-2 drinks per day Alcohol type: beer Comment: refusing bed alarm Patient Tobacco Use Status: Former Tobacco user Tobacco use type: Cigarette Cigarette Packs Per Day: 1 Cigarettes Per Day: 20.0 Years Smoked: 30 years e-Cigarette/Vaping Use: Never Used Second Hand Smoke Exposure: No Substance Use Type: Marijuana Advance Directives Date on File: 05/16/20 service: No Current occupational status: retired 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 Cognitive needs: No Hearing needs: No Vision needs: No Review of Systems Const All systems reviewed & are unremarkable except as noted in HPI and below Physical Exam Vital Signs: Last Vital Signs Temp 98.0 F 02/17/24 09:18 Pulse 76 02/17/24 09:18 BP 118/74 02/17/24 09:18 Pulse Ox 98 02/17/24 09:18 Oxygen Delivery Method Room Air 02/17/24 09:18 Assessment & Plan Assessment & Plan (1) Otitis media: Code(s): H66.90 - Otitis media, unspecified, unspecified ear Qualifiers: Otitis media type: suppurative Chronicity: acute Laterality: bilateral Recurrence: non-recurrent Spontaneous tympanic membrane rupture: without spontaneous rupture Qualified Code(s): H66.003 - Acute suppurative otitis media without spontaneous rupture of ear drum, bilateral Plan: Flu, covid and RSV testing sent. Plans for the patient's visit include performing a chest x-ray to evaluate potential rib fractures or pneumonic processes concerning rib pain. Breathing difficulties related to COPD exacerbation will be managed with an integration of prednisone 40 mg daily for five days to decrease inflammation. The present antibiotic regimen with Augmentin is continued, supported by doxycycline to cover potential microbial resistance or infections. Existing bilateral acute otitis media will be treated concurrently by Augmentin. The patient's oxygenation status will be closely monitored with an aim to decrease supplemental oxygen dependency. Evaluations for COVID-19 and influenza will be conducted owing to the patient's respiratory history. Persisting peripheral edema and lymphedema will continue management with increased dose of Bumetanide. A supportive and comprehensive treatment plan is established to alleviate the patient's significant symptoms while monitoring their vital parameters diligently. Patent instructed to go to ED if symptoms worsen, despite treatment with antibiotics and prednisone. Patient was informed and verbally consented to the use of an ambient scribe for clinic note documentation during this visit (2) Lower respiratory infection (e.g., bronchitis, pneumonia, pneumonitis, pulmonitis): Code(s): J22 - Unspecified acute lower respiratory infection Plan: as above (3) COPD exacerbation: Code(s): J44.1 - Chronic obstructive pulmonary disease with (acute) exacerbation Plan: as above Orders: Orders XR chest 2V Today R05.9 - Cough, unspecified SARS-CoV2/FLU/RSV Today J06.9 - Acute upper respiratory infection, unspecified Medications: New doxycycline hyclate 100 mg PO BID 14 tabs 0RF prednisone 40 mg (2 x 20 mg) PO DAILY 10 tabs 0RF Coding Level of Care Code Est Pt Level 4 (24086) Diagnoses Non-recurrent acute suppurative otitis media of both ears without spontaneous rupture of tympanic membranes H66.003 Otitis media type: suppurative Chronicity: acute Laterality: bilateral Recurrence: non-recurrent Spontaneous tympanic membrane rupture: without spontaneous rupture Lower respiratory infection (e.g., bronchitis, pneumonia, pneumonitis, pulmonitis) J22 COPD exacerbation J44.1
[2024-02-17 09:18] VITALS: BP 118/74; PULSE 76; TEMP 36.7; O2SAT 98
== END 2024-02-17 09:56 | disposition home or self-care (01) ==
PROVIDERS: PCP Nurse Practitioner Family; Visit Provider Physician Assistant
DX: H66.003 Acute suppurative otitis media without spontaneous rupture of ear drum, bilateral (principal); J22 Unspecified acute lower respiratory infection; J44.1 Chronic obstructive pulmonary disease with (acute) exacerbation

== ENCOUNTER 2024-02-17 09:54 | Outpatient (REF) | payer MEDICARE, SELFPAY ==
--- NOTE | ~2024-02-17 | XR_ITS ---
EXAMINATION: XR CHEST CLINICAL INFORMATION: R05.9 - Cough, unspecified COMPARISON: Chest 12/06/2023. TECHNIQUE: 2 views of the chest were obtained. FINDINGS: The lungs are well-expanded lingular patchy opacity question infiltrate versus atelectasis. Rest lungs are clear.. Heart size is normal. Pulmonary vascularity is normal. There is mild spondylosis dorsal spine. No aggressive lytic or sclerotic process seen. XR/XR chest 2V IMPRESSION: Patchy opacity in lingula suspicious for infiltrate versus atelectasis. Electronically signed by: Bradford Brown MD 02/17/2024 10:45 AM EST
== END 2024-02-17 09:55 | disposition home or self-care (01) ==
LOC: HO.HMGCX 09:54
PROVIDERS: PCP Nurse Practitioner Family; Visit Provider Physician Assistant
DX: R05.9 Cough, unspecified (principal)
CPT/HCPCS: 71046

== ENCOUNTER → 2024-02-17 09:57 | Outpatient (BNV) | payer MEDICARE, SELFPAY | PROVIDERS: PCP Nurse Practitioner Family; Visit Provider Radiology Diagnostic Radiology | DX: R05.9 Cough, unspecified (principal) | CPT/HCPCS: 71046 ==

== ENCOUNTER 2024-02-19 12:48 | Inpatient (IN) | payer MEDICARE, SELFPAY ==
[2024-02-19] VITALS (11 sets, daily range): BP systolic 117–142; BP diastolic 54–83; PULSE 72–88; RESP 17–22; TEMP 36.6–36.9; O2SAT 93–96; BMI 52.7
--- NOTE | ~2024-02-19 | CT_ITS ---
CLINICAL HISTORY: covid, sedentary, hypoxic r o pe CT angiography of the chest with IV contrast. 3D/MIP post processing reconstructions were performed. COMPARISON: CT angiogram chest dated 05/16/20 at 11:59 EDT FINDINGS: Contrast bolus timing limits evaluation of the distal pulmonary arteries. No intraluminal filling defects within the main or lobar pulmonary arteries to suggest pulmonary embolism. No evidence of right heart strain. Visualized thyroid is unremarkable. No supraclavicular or axillary lymphadenopathy. Ascending aorta and main pulmonary artery are normal in caliber. No pericardial effusion. Coronary artery calcifications present within the LAD. Normal esophagus. No mediastinal or hilar lymphadenopathy. No pleural effusion. Minimal atelectasis versus scarring along the posterior lower lobes. [id number] upper lobe predominant centrilobular emphysema. Trachea and central airways are clear. No significant bronchial wall thickening. No bronchiectasis. Visualized portions of the upper abdomen are unremarkable. Flowing marginal osteophytes present throughout the mid to lower thoracic spine. No acute fracture or suspicious osseous abnormality. IMPRESSION: 1. No evidence of pulmonary embolism within the main or lobar pulmonary arteries. Contrast bolus timing limits evaluation of the distal pulmonary arteries. 2. Minimal linear atelectasis versus scarring along the posterior lower lobes. No evidence of pneumonia. 3. [id number] upper lobe predominant emphysema. This document has been electronically signed by: Fili Valente MD on 02/19/2024 18:02:57
--- NOTE | ~2024-02-19 | XR_ITS ---
EXAMINATION: XR CHEST CLINICAL INFORMATION: dyspnea COMPARISON: None available. TECHNIQUE: Frontal view of the chest was obtained. FINDINGS: There is mild cardiomegaly. Pulmonary vascularity is normal. The lungs are expanded and clear. There is mild dorsal spine spondylosis. No aggressive lytic or sclerotic process seen. XR/XR chest 1V IMPRESSION: Mild cardiomegaly. No acute process seen Electronically signed by: Bradford Brown MD 02/19/2024 02:05 PM EST
--- NOTE | 2024-02-19 12:58 | ECG_ITS ---
Test Reason : SOB Blood Pressure : / mmHG Vent. Rate : 075 BPM Atrial Rate : 075 BPM P-R Int : 208 ms QRS Dur : 160 ms QT Int : 434 ms P-R-T Axes : 049 -25 014 degrees QTc Int : 484 ms Poor data quality, interpretation may be adversely affected Normal sinus rhythm Right bundle branch block Abnormal ECG When compared with ECG of 06-DEC-2023 12:29, No significant change was found Referred By: Sonia Snider Electronically Signed By:GIANCARLO RASCON MD
[2024-02-19 13:31] LABS: Basophils Absolute Auto 0.1 X10*3/uL (0.0-0.2); Basophils Percent Auto 0.3 % (0-2); Eosinophils Percent Auto 0.1 % (0-4); Hematocrit 43.7 % (42.0-52.0); Hemoglobin 14.9 g/dl (14.0-18.0); Imm Gran Abs Auto 0.18 X10*3/uL (0.00-0.03); Imm Gran Pct Auto 0.9 % (0.0-0.4); Lymphocytes Absolute Auto 0.9 X10*3/uL (1.2-4.9); Lymphocytes Percent Auto 4.3 % (20-40); MANUAL DIFF FLAG SCAN; Mean Corpuscular HGB Conc 34.1 g/dl (31.0-36.0); Mean Corpuscular Hemoglobin 33.9 pg (27.0-33.0); Mean Corpuscular Volume 99.5 fL (80.0-98.0); Mean Platelet Volume 9.9 fL (9.4-12.4); Monocytes Absolute Auto 0.6 X10*3/uL (0.1-1.2); Monocytes Percent Auto 3.1 % (2-11); Neutrophils Absolute Auto 18.9 x10*3/uL (2.0-8.3); Neutrophils Percent Auto 91.3 % (45-73); Platelet Count 343 X10*3/uL (160-400); Red Blood Count 4.39 X10*6/uL (4.60-5.80); Red Cell Distribution Width 13.9 % (11.0-16.0); SCAN SMEAR FLAG 1; White Blood Count 20.7 X10*3/uL (4.8-10.8)
[2024-02-19 13:32] LABS: Venous Blood Gas Refer to POC result
[2024-02-19 13:33] LABS: VBG Base Excess 5.4 mmol/L; VBG HCO3 30 mmol/L (22-26); VBG pCO2 43 mmHg; VBG pH 7.45 (7.32-7.43); VBG pO2 52 mmHg
[2024-02-19 13:36] LABS: INTERNATIONAL NORM RATIO 1.4 (0.9-1.1); Prothrombin Time 15.8 SEC (10.9-12.4)
[2024-02-19 13:39] LABS: Appearance Urine Clear; Color Urine Yellow; Glucose Urine UA Negative (Negative); Leukocyte Esterase Urine Negative (Negative); Nitrite Urine Negative (Negative); Specific Gravity - Urine <= 1.005 (1.005-1.025); Urine Blood Negative (Negative); Urine Ketones Negative (Negative); Urine Protein Negative (Neg-Trace)
[2024-02-19 13:50] LABS: B Type Natriuretic Peptide 48 pg/mL (<100)
[2024-02-19 13:51] LABS: SLIDE REVIEW VERIFIED
[2024-02-19 13:54] LABS: Alanine Aminotransferase 12 U/L (0-40); Albumin Level 3.8 g/dL (3.5-5.0); Alkaline Phosphatase 75 U/L (39-117); Anion Gap 13 (12-20); Aspartate Amino Transferase 26 U/L (5-37); Bilirubin Direct 0.3 mg/dL (0.0-0.5); Bilirubin Total 0.8 mg/dL (0.0-1.0); Blood Urea Nitrogen 24 mg/dL (9-16); Calcium 8.8 mg/dL (8.4-10.2); Carbon Dioxide 25 mmol/L (22-29); Chloride 104 mmol/L (96-108); Creatinine Clr Calc Pharmacy 128.5; Estimated Glomerular Filt Rate > 60; Glucose Random 126 mg/dL (60-115); Lipase 8 U/L (8-78); Potassium 4.5 mmol/L (3.3-5.1); Sodium 137 mmol/L (135-145)
--- NOTE | 2024-02-19 13:56 | PC.NURSE ---
Patient came via BIBA from home for increase in WOB and SOB. Patient reports was dx on Friday02/17/2024 with pneumonia and has been taking antibiotics as prescribed, on 2-3L at baseline since covid in 2020 leaving him with 50% lung function. Today has had to increase his O2. Upon arrival from EMS O2 via nasal cannula currently at 6L, EMS gave Duoneb. Patient alert and oriented, c/o of 8/10 left lower lung/back/flank pain. Labs obtained. 20g IV placed right hand.
[2024-02-19 14:00] LABS: Troponin-I High Sensitivity < 2.7 ng/L (<3.5-35.0)
[2024-02-19 14:12] LABS: Influenza A PCR NEGATIVE (Negative); Influenza B PCR NEGATIVE (Negative); Resp Syncy Virus RNA Qual PCR NEGATIVE (Negative); SARS COV2 PCR INHOUSE POSITIVE (Negative)
--- OUTSIDE RECORDS SUMMARY | 2024-02-19 14:49 | XMS_ITS ---
Author Organization [facility] Address [address] [place] [address] Care Team Providers Care Qa Tech Name Role Phone Diego Gallagher Primary Care Provider Unav ailable Nancy Hardy [phone] REASON FOR VISIT cx 10/27 Encounters Encounter Location Date Provider Diagnosis [facility] [address] [place] [address] 10/27/2023 Nancy Hardy Plan Of Treatment Next Appt Details Provider Name:Nancy li, 03/24/2024 03:30:00 PM, [address] [place], [address], Progress Notes * Dinh BUCKLEY RDOB:[birth year] (68 yo M)Acc No.[id number]:10/27/2023 Patient:?Dinh Buckley :1955???Age:68 Y???Sex:Male Address:[address] [place], [place] [address]ie Hays [facility] [place], [address] * true * Date:? Generated for Printi ng/Faxing/eTransmitting on:?02/19/2024 02:49 PM EST
--- OUTSIDE RECORDS SUMMARY | 2024-02-19 14:49 | XMS_ITS ---
Author Organization [facility] Address [address] [facility] [place] [address] Care Team Providers Care Multi Needle Machine Operator Name Role Phone Diego Gallagher Primary Care Provider Unav ailable Nancy Hardy Unavailable [phone] Allergies No Known Allergies REASON FOR VISIT [...] 024 Encounters Encounter Location Date Provider Diagnosis [facility] [address] 01/09/2024 Nancy Mohamuda Neuropathy G62.9 ; Tinea unguium B35.1 ; Atherosclerosis of [place] artery of both lower extremities, with unspecified presence of clinical manifestation I70.203 ; Pain in right toe(s) M79.674 and Pain in left toe(s) M79.675 Assessments Encounter Date Diagnosis (ICD Code) Assessment Notes Treatment Notes Treatment Clinical Notes Section Notes 01/09/2024 Neuropathy (ICD-10 - G62.9) 01/09/2024 Tinea unguium (ICD-10 - B35.1) 01/09/2024 Atherosclerosis of [place] artery of both lower extremities, with unspecified presence of clinical manifestation (ICD-10 - I70.203) 01/09/2024 Pain in right toe(s) (ICD-10 - M79.674) 01/09/2024 Pain in left toe(s) (ICD-10 - M79.675) Plan Of Treatment Next Appt Details Follow Up: 2 Months, Reason: Provider Name:Nancy li, 03/24/2024 03:30:00 PM, [address] [place] [address], [phone], Procedure Notes * Category Sub-Category Detail [...] use of a nail nipper and/or dremel-type edge grinder machine, to a more viable healthy nail plate [...] to maintain effectiveness in symptomatic relief - 82457 Keratoma Treatment Parring or Cutting o f Benign Hyperkeratotic Lesion(s) (-57) More than 4 Lesions - The Benign hyperkeratotic lesions, ( 6 ) in total, locations as stated and described in exam, were pared, and/or cut utilizing a sterile 15 blade, tissue nippers, and/or power dremel instrumentation - 17589 Progress Notes * Dinh BUCKLEY RDOB:[birth year] (68 yo M)Acc No.[id number]:01/09/2024 Progress Note Patient:?Dinh BUCKLEY Provider:?Nancy Hardy DPM :1955???Age:68 Y???Sex:Male Raj e:01/09/2024 Address: [address] [id number] Pcp:MARU Goldstein Subjective: * Chief Complaints: * ???At Risk FootcarePainful N ail(s) aggrevated by shoes and causing difficulty standing/walking.Foot pain * HPI: ???At Risk footcare:?Pt States Last PCP Visit:?Date?11/18/2023 ???Foot Pain:?Nature:?burning , radiating , shooting , tingling.?Location:?B/L.?Duration:?several years.?Onset:?unknown.?Course:?worse.?Aggravated:?any pressure.?Treatments:?pain medication per PCP for Neuropathy, pt going for appt with [facility] from Ortho referral.? * [...] condition. ?Marital status: , . 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 * Medications:?TakingActemra 1 62 MG/0.9ML Solution Prefilled [...] - G62.9???Specify :Chronic problem, Worse (4)???3.?Atherosclerosis of [place]ct[place] artery of both lower extremities, with unspecified [...] use of a nail nipper and/or dremel-type edge grinder machine, to a more viable healthy nail plate [...] to maintain effectiveness in symptomatic relief - 62680.?Keratoma Treatment:?Parring or Cutting of Benign Hyperkeratotic Lesion(s)?(-57) More than 4 Lesions - The Benign hyperkeratotic lesions, ( 6 ) in total, locations as stated and described in exam, were pared, and/or cut utilizing a sterile 15 blade, tissue nippers, and/or power dremel instrumentation - 93212.? * Procedure Codes:?45414 DEBRI DE NAIL, 6 OR MORE, Modifiers: XS 85526 TRIM SKIN LESIONS, OVER 4, Modifiers: XS , Q8 * Follow Up:?2 Months * Images: * Sign off status: Completed true * Provider:?Nancy Hardy DPM Date:? Generated for Katlin ramirez/Cece/Jemima on:?02/19/2024 02:48 PM EST History and Physical Notes * [...] for Neuropathy, pt going for appt with [facility] from Ortho referral Examination [...]
--- OUTSIDE RECORDS SUMMARY | 2024-02-19 14:49 | XMS_ITS ---
Author Organization [facility] Address [address] [place] [id number] Care Team Providers Care Herbarium Curator Name Role Phone Diego Gallagher Primary Care Provider Unav ailable Nancy Hardy [phone] Encounters Encounter Location Date Provider Diagnosis [address] [address] 10/28/2023 Nancy Hardy Plan Of Treatment Next Appt Details Provider Name:Nancy li, 03/24/2024 03:30:00 PM, [address] [place] [address], [id number], Progress Notes * Dinh BUCKLEY RDOB:[birth year] (69 yo M)Acc No.[id number]:10/28/2023 Progress Note Patient:?Dinh BUCKLEY Provider:?Nancy Hardy DPM :1955???Age:68 Y???Sex:Male Raj e:10/28/2023 Address:[address] [place], [place] [id number] Pcp:MARU Goldstein Subjective: * Chief Complaints: * ??? * Medical History:? Objective: * Vitals:? Assessment: Plan: * Treatment: * Images: * The named appointment provid er may or may not be the originator of this progress note, and it is not deemed complete until electronically signed by the appointment provider. Sign off status: Pending * Provider:?Nancy Hardy DPM Date:?11/2023 Generated for Katlin ramirez/Cece/Jemima on:?02/19/2024 02:49 PM EST
--- OUTSIDE RECORDS SUMMARY | 2024-02-19 14:49 | XMS_ITS | Patient Health Record ---
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) Active confirmed Problem Mononeuropathy of lower limb (716687623) Neuritis of right foot (G57.91) Active confirmed Problem 28392158 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 Problem Atherosclerosis of bad [place] band artery of both lower extremities, with unspecified presence of clinical manifestation (I70.203) Active confirmed Problem [id number] Atherosclerosi s of artery of both lower extremities (I70.203) Active confirmed Problem [id number] Neuropathic ul cer of right foot with fat layer exposed (L97.512) Active confirmed Vital Signs Blood pressure diastolic 70 mm Hg 01/09/2024 Height 6ft 4in in 01/09/2024 Blood pressure systolic 132 mm Hg 01/09/2024 Weight 425 lbs 01/09/2024 BMI 51.73 kg/m2 01/09/2024 Encounters Encounter Location Date Provider Diagnosis [facility] [address] [place] [address] 04/11/2023 Nancy Perica Atherosclerosis of bad [place] band artery of both lower extremities, with unspecified presence of clinical manifestation I70.203 ; Neuropathy G62.9 ; Tinea unguium B35.1 ; Pain in right toe(s) M79.674 and Pain in left toe(s) M79.[address] [address] 06/18/2023 Nancy Hardy Atherosclerosis of bad [place] band artery of both lower extremities, with unspecified presence of clinical manifestation I70.203 ; Neuropathy G62.9 ; Tinea unguium B35.1 ; Pain in right toe(s) M79.674 and Pain in left toe(s) M79.[address] [address] 01/09/2024 Nancy Hardy Neuropathy G62.9 ; Tinea unguium B35.1 ; Atherosclerosis of bad [place] band artery of both lower extremities, with unspecified presence of clinical manifestation I70.203 ; Pain in right toe(s) M79.674 and Pain in left toe(s) M79.[address] [address] 10/27/2023 Nancy Hardy Assessments Encounter Date Diagnosis (ICD Code) Assessment Notes Treatment Notes Treatment Clinical Notes Section Notes 04/11/2023 Neuropathy (ICD-10 - G62.9) 04/11/2023 Atherosclerosis of bad [place] artery of both lower extremities, with unspecified presence of clinical manifestation (ICD-10 - I70.203) 06/18/2023 Atherosclerosis of bad river band artery of both lower extremities, with unspecified presence of clinical manifestation (ICD-10 - I70.203) 01/09/2024 Tinea unguium (ICD-10 - B35.1) 01/09/2024 Neuropathy (ICD-10 - G62.9) 01/09/2024 Atherosclerosis of bad river band artery of both lower extremities, with unspecified [...] Details Provider Name:Nancy li, 03/24/2024 03:30:00 PM, [address] [place] [address], [phone], Insurance Providers Payer Name Payer Address Payer Phone Subscriber Number Group Number Insured Name Patient Relationship to Insured Coverage Start Date Coverage End Date Medicare [facility] [employer] [address] [facility] [place] [address] [id number] Dinh Craven Self - patient is the insured [employer] [address] [place] [address] [phone] [id number] Dinh Craven Self - patient is the [...]
--- NOTE | 2024-02-19 15:15 | ED_ITS ---
HPI - SOB/Dyspnea General Chief Complaint: Dyspnea Stated Complaint: SOB 97% RA,LLQ PAIN PER EMS Time Seen by Provider: 02/19/24 15:01 Source: patient and EMS Mode of arrival: EMS Limitations: no limitations History of Present Illness ED Provider: CELENA CAMPBELL PA-C HPI Narrative: 69-year-old male with past medical history significant for CHF, paroxysmal atrial fibrillation on Eliquis and amiodarone, lymphedema with chronic venous stasis, hypertension, COPD on 2L NC at home as needed presents to the ED today via EMS from home for evaluation of increasing shortness of breath x2 days. Patient reports developing a cough with associated shortness of breath 4 days ago. He reports lung pain to his left lung, worse with deep breathing. He was evaluated at walk-in clinic 2 days ago where he was diagnosed with pneumonia. He was placed on prednisone and doxycycline. He states that he typically wears 2 L of oxygen at home as needed. He has been having to increase his oxygen to 5 L over the last 2 days despite treatment. He admits his at home tested positive for COVID. He reports sedentary lifestyle. No recent travel or long car rides. Ambulates with walker at baseline. Denies fever, chills, sore throat, N/V, abd pain. Related Data Home Medications ?Medication ?Instructions ?Recorded ?Confirmed albuterol sulfate 90 mcg/actuation 2 puff PO Q6H PRN for wheezing 10/13/22 02/10/24 aerosol inhaler ammonium lactate 12 % lotion 1 appl topical DAILY 11/20/23 02/10/24 oxybutynin chloride 10 mg 10 mg PO DAILY 02/19/24 tablet,extended release 24 hr Previous Rx's ?Medication ?Instructions ?Recorded walker #1 ea 05/22/23 finasteride 5 mg tablet 5 mg PO DAILY 90 days #90 tabs 09/08/23 amiodarone 200 mg tablet 200 mg PO DAILY 90 days #90 tabs 10/10/23 doxazosin 8 mg tablet 8 mg PO BEDTIME 90 days #90 tabs 11/03/23 Anoro Ellipta 62.5 mcg-25 1 inh PO DAILY #60 ea 11/05/23 mcg/actuation powder for inhalation (umeclidinium-vilanterol) pregabalin 150 mg capsule 150 mg PO TID 90 days #270 caps 12/02/23 Powered bariatric recliner #1 ea 12/11/23 atorvastatin 80 mg tablet 80 mg PO BEDTIME 90 days #90 tabs 12/29/23 bumetanide 1 mg tablet 2 mg (2 x 1 mg) PO DAILY #120 tabs 12/29/23 docusate sodium 100 mg capsule 100 mg PO BID Constipation #180 01/13/24 (Colace) caps duloxetine 60 mg capsule,delayed 60 mg PO DAILY #90 caps 01/13/24 release apixaban 5 mg tablet (Eliquis) 5 mg PO BID #60 tabs 01/19/24 zolpidem 5 mg tablet 5 mg PO BEDTIME PRN sleep #30 tabs 01/21/24 ropinirole 2 mg tablet 2 mg PO TID 90 days #270 tabs 01/22/24 ascorbic acid (vitamin C) 1,000 mg 1 g PO DAILY 90 days #90 tabs 01/29/24 tablet methenamine hippurate 1 gram tablet 1 g PO DAILY 90 days #90 tabs 01/29/24 spironolactone 25 mg tablet 50 mg (2 x 25 mg) PO DAILY 90 days 02/03/24 #180 tabs amoxicillin 875 mg-potassium 1 tab PO BID 10 days #20 tabs 02/10/24 clavulanate 125 mg tablet doxycycline hyclate 100 mg tablet 100 mg PO BID #14 tabs 02/17/24 prednisone 20 mg tablet 40 mg (2 x 20 mg) PO DAILY #10 tabs 02/17/24 Allergies Allergy/AdvReac Type Severity Reaction Status Date / Time No Known Allergies Allergy Verified 02/19/24 13:11 [No Known Allergies*] Review of Systems 2 Review of Systems: Constitutional: No fever, chills, fatigue, night sweats, weight changes ENT/Mouth: No ear pain, hearing loss, nasal congestion, sinus pain, rhinorrhea, sore throat Eyes: No eye pain, swelling, redness, vision changes, discharge Cardio: No palpitations, MATUTE, orthopnea, peripheral edema, +chest pain Pulm: No sputum, wheezing, dyspnea, hemoptysis, +cough, +sob GI: No nausea, vomiting, hematemesis, abdominal pain, diarrhea, constipation, hematochezia, melena : No irregular bleeding, dysuria, frequency, urgency, hesitancy, hematuria, flank pain, urinary flow changes, urinary incontinence or retention MSK: No back pain, neck pain, joint pain, myalgias Skin: No lesions, rashes Neuro: No weakness, numbness, paresthesias, LOC, dizziness, headache Psych: No anxiety/panic, depression, SI/HI, AH/VH All other systems reviewed and are negative. [facility] Past Medical History Attestation statement: The following information was validated with the patient. Source: old records reviewed and nursing notes reviewed Medical History Paroxysmal atrial fibrillation Congestive heart failure Testicular swelling Osteoarthritis of right knee Melanoma History of cardioversion Hereditary lymphedema Venous insufficiency Morbid obesity Lymphedema COPD (chronic obstructive pulmonary disease) Sensory neuropathy COVID-19 Respiratory failure with hypoxia Restrictive lung disease COPD (chronic obstructive pulmonary disease) JEFFRY on CPAP MATUTE (dyspnea on exertion) Chronic cystitis Bladder outlet obstruction Restless leg syndrome Traumatic complete tear of right rotator cuff Injury of right rotator cuff History of diverticulitis History of umbilical hernia Surgical History Hx of colonoscopy History of appendectomy History of arthroscopy of left knee Family History Family History Father Arthritis Diabetes Mother Arthritis Kidney stones Family/Other Arthritis Sister No problems noted. Sister No problems noted. Son No problems noted. Social History Social History Household Members: Spouse Household Members Other:: Floridalma Housing: Condominium Do you presently have visiting nurse or other home services: Yes (health care something ) Alcohol intake: current Alcohol intake frequency: 0-2 drinks per day Alcohol type: beer Comment: refusing bed alarm Patient Tobacco Use Status: Former Tobacco user Tobacco use type: Cigarette Cigarette Packs Per Day: 1 Cigarettes Per Day: 20.0 Years Smoked: 30 years Smoked in Last 30 Days: No e-Cigarette/Vaping Use: Never Used Second Hand Smoke Exposure: No Use of substances other than those prescribed or required for medical reasons: Yes Substance Use Type: Marijuana Substance Use Frequency: Occasionally Advance Directives: No Advance Directives Date on File: 05/16/20 Do you have a plan to hurt others: No Plan service: No Current occupational status: retired Current occupation: [employer]/ rt Cognitive needs: No Hearing needs: No Vision needs: No Physical Exam 2 Vital Signs: Vital Signs: Last Vital Signs Temp 97.8 F 02/19/24 18:10 Pulse 88 02/19/24 18:10 Resp 18 02/19/24 18:10 BP 142/76 H 02/19/24 18:42 Pulse Ox 94 02/19/24 18:10 O2 Del Method Nasal Cannula 02/19/24 18:10 O2 Flow Rate 3 02/19/24 18:10 Oxygen Flow Rate 6 02/19/24 13:04 BMI result Body Mass Index 52.7 Satting 95% on 6 L nasal cannula, not tachycardic, afebrile General: Well appearing, in no acute distress. Skin: Warm, dry, intact Head: Normocephalic, atraumatic. EENT: Hearing is intact b/l. Conjunctiva clear. PERRLA. EOM intact. Moist mucous membranes.? Neck: Supple without LAD Cardiac: Chest wall symmetric. RRR Lungs: Normal respiratory effort. No tripoding. Congested cough. Lungs with diminished breath sounds bilaterally, inspiratory wheezes. Abdomen: obese abd, soft, non-tender, non-distended. No rebound tenderness or guarding Ext: +lymphedema and chronic venous stasis changes to lower extremities Neuro: AOx3. Normal speech. Ambulating with slow but steady gait assisted by walker. Psych: Appropriate mood and affect. Responds appropriately to questions. Course Course Course Narrative: 1534 -- CBC with leukocytosis to 20.7 with left shift. Reactive (secondary to prednisone) vs infectious. VBG showing metabolic alkalosis. Chemistry without acute electrolyte abnormality requiring intervention. Renal function around baseline. No MARIAN. Random glucose 126. Liver function WNL. Troponin undetectable. BNP 48, CHF unlikely. He tested positive for covid, negative for flu/rsv. CXR without obvious conolidation or infiltrate. I did review CXR obtained 2 days ago which shows ?lingular infiltrate versus atelectasis. Lower suspicion for PE as patient is anticoagulated on Eliquis however given current COVID infection and hypoxia, will obtain CTA chest to rule out embolism. Urine without infection. > patient does not meet SIRS criteria for sepsis at this time (1534). lactic pending. Blood cultures ordered. Ceftriaxone ordered. Patient receiving updraft treatment and IV Solu-Medrol. awaiting ambulatory O2 1805 -- lactic wnl at 1.1. during ambulatory O2 trial, patient has sustained around 93% on 3 L nasal cannula however was continuing to endorse shortness of breath. States this is not baseline for him. CT angio chest does not reveal pulmonary emboli. It was also negative for pneumonia. > given increased requirement of oxygen, I discussed admission w/ hospitalist. Dr. Gray has accepted admission to medicine for hypoxic respiratory failure secondary to COVID. Medications Administered Generic Name Dose Route Start Last Admin Trade Name Freq PRN Reason Stop Dose Admin Bumetanide 1 mg 02/19/24 18:30 02/19/24 18:42 Bumetanide 1 Mg/4 Ml Vial IVPUSH 1 mg BID@0900,1700 MICHELLE Administration Protocol Discontinued Medications Generic Name Dose Route Start Last Admin Trade Name Freq PRN Reason Stop Dose Admin Ceftriaxone Sodium 1 gm 02/19/24 15:35 02/19/24 16:31 Ceftriaxone Sodium 1 Gm Vial IVPUSH 02/19/24 15:36 1 gm ONCE ONE Administration Albuterol Sulfate 5 mg/ 0 mg 02/19/24 16:08 02/19/24 16:10 Albuterol/Ipratropium 3 ml INHALE 02/19/24 16:09 1 each ONCE ONE Administration Iohexol 100 ml 02/19/24 17:13 02/19/24 17:15 Iohexol 350 Mg/Ml 100 Ml Infus..Btl IV 02/19/24 17:14 100 ml ONCE ONE Administration Methylprednisolone Sodium Succinate 125 mg 02/19/24 15:38 02/19/24 16:31 Methylprednisolone Sod Succ 125 Mg/2 Ml Vial IVPUSH 02/19/24 15:39 125 mg ONCE ONE Administration Oxycodone HCl 5 mg 02/19/24 16:37 02/19/24 16:45 Oxycodone Hcl Immed Release 5 Mg Tablet PO 02/19/24 16:38 5 mg ONCE ONE Administration Medical Decision Making Medical Decision Making MDM Narrative: 69-year-old male with past medical history significant for CHF, paroxysmal atrial fibrillation on Eliquis and amiodarone, lymphedema with chronic venous stasis, hypertension, COPD on 2L NC at home as needed presents to the ED today via EMS from home for evaluation of increasing shortness of breath x2 days. Patient is satting 95% on 6L NC. Will obtain ambulatory O2. Afebrile. Not tachycardic. He is nontoxic appearing and in NAD. Normal respiratory effort. No tripoding. Congested cough. Lungs with diminished breath sounds bilaterally, inspiratory wheezes. Differential diagnosis includes viral syndrome, COPD exacerbation, bronchitis, pneumonia, pleural effusion, CHF, ACS, arrhythmia, anemia, electrolyte abnormality, dehydration Plan for labs, ekg, CXR, viral swabs, re-evaluation. Differential Diagnosis Differential Diagnoses: The differential diagnosis associated with the presentation includes As above Admission/Observation Consideration of admission/observation: Escalation of care including admission/observation considered Patient admitted to medicine for acute hypoxic respiratory failure secondary to COVID Consult Healthcare Provider Management of the patient was discussed with: Hospitalist (Dr. Gray) Lab Data MDM Lab Attestation statement: I reviewed the patient's lab results. As above 02/19/24 13:22 02/19/24 13:22 Labs: Lab Results 02/19/24 02/19/24 02/19/24 Range/Units 13:21 13:22 13:27 WBC 20.7 H (4.8-10.8) X10*3/uL RBC 4.39 L (4.60-5.80) X10*6/uL Hgb 14.9 (14.0-18.0) g/dl Hct 43.7 (42.0-52.0) % MCV 99.5 H (80.0-98.0) fL MCH 33.9 H (27.0-33.0) pg MCHC 34.1 (31.0-36.0) g/dl RDW 13.9 (11.0-16.0) % Plt Count 343 D (160-400) X10*3/uL MPV 9.9 (9.4-12.4) fL Immature Gran % (Auto) 0.9 H (0.0-0.4) % Neut % (Auto) 91.3 H (45-73) % Lymph % (Auto) 4.3 L (20-40) % Runnels % (Auto) 3.1 (2-11) % Eos % (Auto) 0.1 (0-4) % Baso % (Auto) 0.3 (0-2) % Lymph # (Auto) 0.9 L (1.2-4.9) X10*3/uL Runnels # (Auto) 0.6 (0.1-1.2) X10*3/uL Eos # (Auto) 0.0 (0.0-0.4) X10*3/uL Baso # (Auto) 0.1 (0.0-0.2) X10*3/uL Abs Immat Gran (auto) 0.18 H (0.00-0.03) X10*3/uL Absolute Neuts (auto) 18.9 H (2.0-8.3) x10*3/uL Absolute Nucleated RBC 0.000 (0.0-0.012) X10*3/uL Nucleated RBC % (auto) 0.0 (0.0-0.2) /100WBC Smear Tech's Comments VERIFIED PT 15.8 H (10.9-12.4) SEC INR 1.4 H (0.9-1.1) VBG pH 7.45 H (7.32-7.43) VBG pCO2 43 mmHg VBG pO2 52 mmHg VBG HCO3 30 H (22-26) mmol/L VBG O2 Saturation 83.0 % VBG Base Excess 5.4 mmol/L Sodium 137 (135-145) mmol/L Potassium 4.5 D (3.3-5.1) mmol/L Chloride 104 (96-108) mmol/L Carbon Dioxide 25 (22-29) mmol/L Anion Gap 13 (12-20) BUN 24 H (9-16) mg/dL Creatinine 1.03 (0.5-1.4) mg/dL Estim Creat Clear Calc 128.5 Estimated GFR > 60 Random Glucose 126 H (60-115) mg/dL Lactic Acid (0.5-2.0) mmol/L Calcium 8.8 (8.4-10.2) mg/dL Magnesium 2.0 (1.6-2.6) mg/dL Total Bilirubin 0.8 (0.0-1.0) mg/dL Direct Bilirubin 0.3 (0.0-0.5) mg/dL AST 26 (5-37) U/L ALT 12 (0-40) U/L Alkaline Phosphatase 75 (39-117) U/L Troponin I High Sens < 2.7 (<3.5-35.0) ng/L B-Natriuretic Peptide 48 (<100) pg/mL Total Protein 7.0 (6.5-8.0) g/dL Albumin 3.8 (3.5-5.0) g/dL Lipase 8 (8-78) U/L Urine Color Yellow Urine Appearance Clear Urine pH 7.0 (5.0-9.0) Ur Specific [place] <= 1.005 (1.005-1.025) Urine Protein Negative (Neg-Trace) mg/dL Urine Glucose (UA) Negative (Negative) mg/dL Urine Ketones Negative (Negative) mg/dL Urine Blood Negative (Negative) Urine Nitrite Negative (Negative) Ur Leukocyte Esterase Negative (Negative) Influenza Type A (PCR) NEGATIVE (Negative) Influenza Type B (PCR) NEGATIVE (Negative) RSV RNA Qual (PCR) NEGATIVE (Negative) SARS-CoV-2 RNA (RT-PCR) POSITIVE A (Negative) 02/19/24 Range/Units 15:56 WBC (4.8-10.8) X10*3/uL RBC (4.60-5.80) X10*6/uL Hgb (14.0-18.0) g/dl Hct (42.0-52.0) % MCV (80.0-98.0) fL MCH (27.0-33.0) pg MCHC (31.0-36.0) g/dl RDW (11.0-16.0) % Plt Count (160-400) X10*3/uL MPV (9.4-12.4) fL Immature Gran % (Auto) (0.0-0.4) % Neut % (Auto) (45-73) % Lymph % (Auto) (20-40) % Runnels % (Auto) (2-11) % Eos % (Auto) (0-4) % Baso % (Auto) (0-2) % Lymph # (Auto) (1.2-4.9) X10*3/uL R[place]els # (Auto) (0.1-1.2) X10*3/uL Eos # (Auto) (0.0-0.4) X10*3/uL Baso # (Auto) (0.0-0.2) X10*3/uL Abs Immat Gran (auto) (0.00-0.03) X10*3/uL Absolute Neuts (auto) (2.0-8.3) x10*3/uL Absolute Nucleated RBC (0.0-0.012) X10*3/uL Nucleated RBC % (auto) (0.0-0.2) /100WBC Smear Tech's Comments PT (10.9-12.4) SEC INR (0.9-1.1) VBG pH (7.32-7.43) VBG pCO2 mmHg VBG pO2 mmHg VBG HCO3 (22-26) mmol/L VBG O2 Saturation % VBG Base Excess mmol/L Sodium (135-145) mmol/L Potassium (3.3-5.1) mmol/L Chloride (96-108) mmol/L Carbon Dioxide (22-29) mmol/L Anion Gap (12-20) BUN (9-16) mg/dL Creatinine (0.5-1.4) mg/dL Estim Creat Clear Calc Estimated GFR Random Glucose (60-115) mg/dL Lactic Acid 1.1 (0.5-2.0) mmol/L Calcium (8.4-10.2) mg/dL Magnesium (1.6-2.6) mg/dL Total Bilirubin (0.0-1.0) mg/dL Direct Bilirubin (0.0-0.5) mg/dL AST (5-37) U/L ALT (0-40) U/L Alkaline Phosphatase (39-117) U/L Troponin I High Sens (<3.5-35.0) ng/L B-Natriuretic Peptide (<100) pg/mL Total Protein (6.5-8.0) g/dL Albumin (3.5-5.0) g/dL Lipase (8-78) U/L Urine Color Urine Appearance Urine pH (5.0-9.0) Ur Specific [place] (1.005-1.025) Urine Protein (Neg-Trace) mg/dL Urine Glucose (UA) (Negative) mg/dL Urine Ketones (Negative) mg/dL Urine Blood (Negative) Urine Nitrite (Negative) Ur Leukocyte Esterase (Negative) Influenza Type A (PCR) (Negative) Influenza Type B (PCR) (Negative) RSV RNA Qual (PCR) (Negative) SARS-CoV-2 RNA (RT-PCR) (Negative) Independent Interpretation I performed an independent interpretation of an: EKG and Plain X-Ray Interpretation: EKG showing normal sinus rhythm with right bundle-branch block, rate of 75 beats per minute, QT 434, QTC 484, no acute ischemic changes or ST elevations. Right bundle-branch block present on previous EKGs Chest x-ray 02/19/24 without infiltrate or consolidation Chest x-ray 02/16/24 with very subtle patchy opacity to lingula Radiology Impression Discussion of test interpretation with radiology: I have reviewed the radiologist's reading. Radiologist Impression: Ordering Physician: Sho Walsh PA-C Date of Service: 02/17/24 Procedure(s): XR chest 2V Accession Number(s): [id number] cc: Sho Walsh PA-C; Diego Augustine DISPATCH OFFICER-BC~ EXAMINATION: XR CHEST CLINICAL INFORMATION: R05.9 - Cough, unspecified COMPARISON: Chest 12/06/2023. TECHNIQUE: 2 views of the chest were obtained. FINDINGS: The lungs are well-expanded lingular patchy opacity question infiltrate versus atelectasis. Rest lungs are clear.. Heart size is normal. Pulmonary vascularity is normal. There is mild spondylosis dorsal spine. No aggressive lytic or sclerotic process seen. XR/XR chest 2V IMPRESSION: Patchy opacity in lingula suspicious for infiltrate versus atelectasis. Electronically signed by: Bradford Brown MD 02/17/2024 10:45 AM EST RP EXAMINATION: XR CHEST CLINICAL INFORMATION: dyspnea COMPARISON: None available. TECHNIQUE: Frontal view of the chest was obtained. FINDINGS: There is mild cardiomegaly. Pulmonary vascularity is normal. The lungs are expanded and clear. There is mild dorsal spine spondylosis. No aggressive lytic or sclerotic process seen. XR/XR chest 1V IMPRESSION: Mild cardiomegaly. No acute process seen Electronically signed by: Bradford Brown MD 02/19/2024 02:05 PM EST RP Ordering Physician: Celena Campbell Date of Service: 02/19/24 Procedure(s): CT angio chest PE protocol Accession Number(s): [id number] cc: Diego Augustine DISPATCH OFFICER-; Celena Campbell~ Report Number: [id number]: Total DLP = 844.00 mGy-cm CLINICAL HISTORY: covid, sedentary, hypoxic r o pe CT angiography of the chest with IV contrast. 3D/MIP post processing reconstructions were performed. COMPARISON: CT angiogram chest dated 05/16/20 at 11:59 EDT FINDINGS: Contrast bolus timing limits evaluation of the distal pulmonary arteries. No intraluminal filling defects within the main or lobar pulmonary arteries to suggest pulmonary embolism. No evidence of right heart strain. Visualized thyroid is unremarkable. No supraclavicular or axillary lymphadenopathy. Ascending aorta and main pulmonary artery are normal in caliber. No pericardial effusion. Coronary artery calcifications present within the LAD. Normal esophagus. No mediastinal or hilar lymphadenopathy. No pleural effusion. Minimal atelectasis versus scarring along the posterior lower lobes. [id number] upper lobe predominant centrilobular emphysema. Trachea and central airways are clear. No significant bronchial wall thickening. No bronchiectasis. Visualized portions of the upper abdomen are unremarkable. Flowing marginal osteophytes present throughout the mid to lower thoracic spine. No acute fracture or suspicious osseous abnormality. IMPRESSION: 1. No evidence of pulmonary embolism within the main or lobar pulmonary arteries. Contrast bolus timing limits evaluation of the distal pulmonary arteries. 2. Minimal linear atelectasis versus scarring along the posterior lower lobes. No evidence of pneumonia. 3. [id number] upper lobe predominant emphysema. This document has been electronically signed by: Fili Valente MD on 02/19/2024 18:02:57 Independent Historian Clinical information obtained from an independent historian. History obtained from or confirmed by: EMS Prescription Management I considered prescription management with: Antibiotic and Other (steroids) Chronic Conditions Patient?s care impacted by: Other (COPD) Social Determinants Patient?s care significantly limited by Social Determinants of Health including: Other Social Determinant of Health Critical Care Time Critical Care Time Critical Care Time: Yes Total Critical Care Time: 36 Attestation: Critical care time in the amount of 36 minutes has been provided to the patient in terms of direct patient care, frequent reevaluation, consultation with hospitalist, review and interpretation of medical data and results, and management of potentially life-threatening conditions. This is all outside of any medical procedures. Discharge Plan Discharge Clinical Impression: Acute hypoxemic respiratory failure due to COVID-19 Patient Disposition: Admitted As Inpatient
[2024-02-19] MEDS: Albuterol Sulfate 5 MG, Albuterol/Iprat 2.5/0.5MG 3 ML 3 ML INHALE (16:10)
[2024-02-19 16:20] LABS: Lactic Acid 1.1 mmol/L (0.5-2.0)
[2024-02-19] MEDS: cefTRIAXone sodium 1 GM VIAL IVPUSH (16:31)
[2024-02-19] MEDS: methylPREDNISolone Sod Succ 125 MG/2 ML VIAL IVPUSH (16:31)
[2024-02-19] MEDS: oxyCODONE HCl Immed Release 5 MG TABLET PO ×2 (16:45→23:18)
[2024-02-19] MEDS: iohexoL 350 MG/ML 100 ML INFUS..BTL IV (17:15)
--- NOTE | 2024-02-19 17:20 | PC.NURSE ---
Pt c/o 09/26 pain, AYSHA Rosen aware, oxycodone given as ordered.
--- NOTE | 2024-02-19 17:23 | PC.NURSE ---
Ambulation trial completed, patient sating 93% on 3L nC
--- NOTE | 2024-02-19 18:29 | P.HPHOSP_ITS ---
History of Present Illness Date of Service: 02/19/24 Chief Complaint: sob 69M PMH paroxysmal AFib, chronic diastolic CHF, chronic lymphedema, hypertension, chronic hypoxic respiratory failure due to COPD on 3 L home O2, JEFFRY on CPAP, seronegative rheumatoid arthritis, hyperthyroid - now euthyroid, hypertension, overactive bladder, morbid obesity presented with 2 days of shortness of breath and left sided rib pain worse with inspiration. He had been evaluated in walk-in clinic, diagnosed with pneumonia and started on doxycycline on prednisone. Patient has ongoing symptoms and was requiring 5 L at home. Denies fever, abdominal pain, nausea vomiting diarrhea. Called ambulance. In ED saturation appears to be at baseline 93% on ambulation on 3 L. noted to be COVID positive. CTA chest with no PE, has minimal linear atelectasis versus scarring along the posterior lower lobes, mild to moderate upper lobe predominant emphysema. Review of Systems 2 Review of Systems: Yes all other systems are reviewed and are negative [facility] Medical History Paroxysmal atrial fibrillation Congestive heart failure Testicular swelling Osteoarthritis of right knee Melanoma History of cardioversion Hereditary lymphedema Venous insufficiency Morbid obesity Lymphedema COPD (chronic obstructive pulmonary disease) Sensory neuropathy COVID-19 Respiratory failure with hypoxia Restrictive lung disease COPD (chronic obstructive pulmonary disease) JEFFRY on CPAP MATUTE (dyspnea on exertion) Chronic cystitis Bladder outlet obstruction Restless leg syndrome Traumatic complete tear of right rotator cuff Injury of right rotator cuff History of diverticulitis History of umbilical hernia Family History Father Arthritis Diabetes Mother Arthritis Kidney stones Family/Other Arthritis Sister No problems noted. Sister No problems noted. Son No problems noted. Surgical History Hx of colonoscopy History of appendectomy History of arthroscopy of left knee Social History Household Members: Spouse Household Members Other:: Floridalma Housing: Condominium Do you presently have visiting nurse or other home services: Yes (health care something ) Alcohol intake: current Alcohol intake frequency: 0-2 drinks per day Alcohol type: beer Comment: refusing bed alarm Patient Tobacco Use Status: Former Tobacco user Tobacco use type: Cigarette Cigarette Packs Per Day: 1 Cigarettes Per Day: 20.0 Years Smoked: 30 years Smoked in Last 30 Days: No e-Cigarette/Vaping Use: Never Used Second Hand Smoke Exposure: No Use of substances other than those prescribed or required for medical reasons: Yes Substance Use Type: Marijuana Substance Use Frequency: Occasionally Advance Directives: No Advance Directives Date on File: 05/16/20 Do you have a plan to hurt others: No Plan service: No Current occupational status: retired 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 Cognitive needs: No Hearing needs: No Vision needs: No Meds Allergies Allergy/AdvReac Type Severity Reaction Status Date / Time No Known Allergies Allergy Verified 02/19/24 13:11 [No Known Allergies*] Home Medications ?Medication ?Instructions ?Recorded ?Confirmed ?Last Taken ?Type albuterol sulfate 90 mcg/actuation 2 puff PO Q6H PRN for wheezing 10/13/22 02/19/24 Unknown History aerosol inhaler ammonium lactate 12 % lotion 1 appl topical DAILY 11/20/23 02/19/24 02/19/24 History oxybutynin chloride 10 mg 10 mg PO DAILY 02/19/24 02/19/24 02/19/24 History tablet,extended release 24 hr Physical Exam 2 Vital Signs and Narrative: Vital Signs: Last Vital Signs Temp 97.8 F 02/19/24 18:10 Pulse 88 02/19/24 18:10 Resp 18 02/19/24 18:10 BP 142/76 H 02/19/24 18:10 Pulse Ox 94 02/19/24 18:10 O2 Del Method Nasal Cannula 02/19/24 18:10 O2 Flow Rate 3 02/19/24 18:10 Oxygen Flow Rate 6 02/19/24 13:04 BMI result Body Mass Index 52.7 69M PMH paroxysmal AFib, chronic diastol ic CHF, chronic lymphedema, hypertension, chronic hypoxic respiratory failure due to COPD on 3 L home O2, JEFFRY on CPAP, seronegative rheumatoid arthritis, hyperthyroid - now euthyroid, hypertension, overactive bladder, morbid obesity presented with 2 days of shortness of breath and left sided rib pain worse with inspiration Dyspnea due to Chronic hypoxic respiratory failure due to COPD with acute decompensation due to COVID Steroids, bronchodilators May be additional component of acute on chronic diastolic CHF IV Bumex, monitor closely Left rib pain likely from atelectasis, can not rule out underlying pneumonia will empirically treated with ceftriaxone and azithromycin No sepsis, leukocytosis from prednisone Paroxysmal AFib Continue amiodarone and Eliquis Morbid obesity Weight loss recommended JEFFRY CPAP at night Seronegative rheumatoid arthritis Outpatient Rheumatology follow-up DVT prophylaxis on Eliquis Full Code Patient with significant dyspnea due to multiple causes mentioned above as well as multiple comorbidities therefore expected require at least 2 midnights inpatient Results Labs 02/19/24 13:22 02/19/24 13:22 Labs: Laboratory Results - last 24 hr 02/19/24 02/19/24 02/19/24 13:21 13:22 13:27 MCV 99.5 H MCH 33.9 H MCHC 34.1 RDW 13.9 Plt Count 343 D MPV 9.9 Immature Gran % (Auto) 0.9 H Neut % (Auto) 91.3 H Lymph % (Auto) 4.3 L [place] % (Auto) 3.1 Eos % (Auto) 0.1 Baso % (Auto) 0.3 Lymph # (Auto) 0.9 L [place] # (Auto) 0.6 Eos # (Auto) 0.0 Baso # (Auto) 0.1 Abs Immat Gran (auto) 0.18 H Absolute Neuts (auto) 18.9 H Absolute Nucleated RBC 0.000 Nucleated RBC % (auto) 0.0 Smear Tech's Comments VERIFIED PT 15.8 H INR 1.4 H VBG pH 7.45 H VBG pCO2 43 VBG pO2 52 VBG HCO3 30 H VBG O2 Saturation 83.0 VBG Base Excess 5.4 Anion Gap 13 Estim Creat Clear Calc 128.5 Estimated GFR > 60 Random Glucose 126 H Lactic Acid Calcium 8.8 Magnesium 2.0 Total Bilirubin 0.8 Direct Bilirubin 0.3 AST 26 ALT 12 Alkaline Phosphatase 75 Troponin I High Sens < 2.7 B-Natriuretic Peptide 48 Total Protein 7.0 Albumin 3.8 Lipase 8 Urine Color Yellow Urine Appearance Clear Urine pH 7.0 Ur Specific [place] <= 1.005 Urine Protein Negative Urine Glucose (UA) Negative Urine Ketones Negative Urine Blood Negative Urine Nitrite Negative Ur Leukocyte Esterase Negative Influenza Type A (PCR) NEGATIVE Influenza Type B (PCR) NEGATIVE RSV RNA Qual (PCR) NEGATIVE SARS-CoV-2 RNA (RT-PCR) POSITIVE A 02/19/24 15:56 MCV MCH MCHC RDW Plt Count MPV Immature Gran % (Auto) Neut % (Auto) Lymph % (Auto) [place] % (Auto) Eos % (Auto) Baso % (Auto) Lymph # (Auto) [place] # (Auto) Eos # (Auto) Baso # (Auto) Abs Immat Gran (auto) Absolute Neuts (auto) Absolute Nucleated RBC Nucleated RBC % (auto) Smear Tech's Comments PT INR VBG pH VBG pCO2 VBG pO2 VBG HCO3 VBG O2 Saturation VBG Base Excess Anion Gap Estim Creat Clear Calc Estimated GFR Random Glucose Lactic Acid 1.1 Calcium Magnesium Total Bilirubin Direct Bilirubin AST ALT Alkaline Phosphatase Troponin I High Sens B-Natriuretic Peptide Total Protein Albumin Lipase Urine Color Urine Appearance Urine pH Ur Specific [place] Urine Protein Urine Glucose (UA) Urine Ketones Urine Blood Urine Nitrite Ur Leukocyte Esterase Influenza Type A (PCR) Influenza Type B (PCR) RSV RNA Qual (PCR) SARS-CoV-2 RNA (RT-PCR) Imaging Radiologist's Impressions: Impressions Chest X-Ray 02/19/24 12:58 IMPRESSION: Mild cardiomegaly. No acute process seen Electronically signed by: Bradford Brown MD 02/19/2024 02:05 PM [facility] [place], [place] Quality Stroke Does the patient have a stroke diagnosis?: No VTE Prior VTE?: No VTE Risk Level:: Medical - moderate - high VTE Device Contraindication: Treatment Not Indicated VTE Drug Contraindication: N/A - Med Ordered
[2024-02-19] MEDS: Bumetanide 1 MG/4 ML VIAL IVPUSH (18:42)
--- NOTE | 2024-02-19 18:57 | PHA.MEDREC ---
Addendum entered by Lilian Moeller RPh 02/19/24 19:18: Reviewed by [facility] Original Note: Pharmacy Consult ? Medication Reconciliation Pharmacy has completed the medication reconciliation. Spoke to patient to confirm med list. Patient had list of medication om his phone. Patient states he is no longer taking Clotrimazole 10 mg [place], Lidocaine 2% solution, Oxybutynin 10 mg , Silver sulfadiazine 1% cream, Actemra 162 pen (patient stopped 2 weeks ago).
[2024-02-19] MEDS: Atorvastatin Calcium 80 MG TABLET PO (21:28)
[2024-02-19] MEDS: rOPINIRole HCL 2 MG TABLET PO (21:28)
[2024-02-19] MEDS: Apixaban 5 MG TABLET PO (21:28)
[2024-02-19] MEDS: Doxazosin Mesylate 2 MG TABLET 8 MG PO (21:29)
[2024-02-19] MEDS: Pregabalin 150 MG CAPSULE PO (21:29)
[2024-02-19] MEDS: Melatonin 3 MG TABLET 6 MG PO (23:18)
[2024-02-20] VITALS (10 sets, daily range): BP systolic 107–156; BP diastolic 55–84; PULSE 56–98; RESP 14–21; TEMP 36–36.9; O2SAT 92–98; BMI 51.5
--- NOTE | 2024-02-20 00:56 | PC.NURSE ---
pt placed on hospital bed for comfort. Put on CPAP by respiratory. Medicated to APR. Asleep, resting comfortably at this time
[2024-02-20] MEDS: 0.9 % Sodium Chloride Flush 3 ML SYRINGE IVFLUSH ×4 (01:37→20:44)
[2024-02-20 05:00] LABS: Hemoglobin 14.1 g/dl (14.0-18.0); Mean Corpuscular HGB Conc 34.4 g/dl (31.0-36.0); Mean Corpuscular Hemoglobin 34.4 pg (27.0-33.0); Platelet Count 357 X10*3/uL (160-400); Red Cell Distribution Width 13.7 % (11.0-16.0); White Blood Count 19.7 X10*3/uL (4.8-10.8)
[2024-02-20 05:16] LABS: Anion Gap 13 (12-20); Blood Urea Nitrogen 27 mg/dL (9-16); Calcium 8.8 mg/dL (8.4-10.2); Carbon Dioxide 27 mmol/L (22-29); Chloride 103 mmol/L (96-108); Creatinine Clr Calc Pharmacy 128.5; Estimated Glomerular Filt Rate > 60; Glucose Random 151 mg/dL (60-115); Magnesium 2.2 mg/dL (1.6-2.6); Potassium 4.6 mmol/L (3.3-5.1); Sodium 138 mmol/L (135-145)
[2024-02-20] MEDS: oxyBUTYnin chloride ER 5 MG TAB.ER.24 10 MG PO (09:32)
[2024-02-20] MEDS: Amiodarone HCL 200 MG TABLET PO (09:33)
[2024-02-20] MEDS: Spironolactone 25 MG TABLET 50 MG PO (09:33)
[2024-02-20] MEDS: Pregabalin 150 MG CAPSULE PO ×3 (09:33→20:44)
[2024-02-20] MEDS: Azithromycin 500 MG TABLET PO (09:33)
[2024-02-20] MEDS: DULoxetine HCl 60 MG CAPSULE.DR PO (09:33)
[2024-02-20] MEDS: Docusate Sodium 100 MG CAPSULE PO ×2 (09:33→20:43)
[2024-02-20] MEDS: Apixaban 5 MG TABLET PO ×2 (09:33→20:43)
[2024-02-20] MEDS: Bumetanide 1 MG/4 ML VIAL IVPUSH ×2 (09:34→16:13)
[2024-02-20] MEDS: methylPREDNISolone Sod Succ 40 MG/ML VIAL IVPUSH ×2 (09:34→21:55)
[2024-02-20] MEDS: Finasteride 5 MG TABLET PO (09:34)
--- NOTE | 2024-02-20 09:54 | MHC.CM.PN ---
PT COVID +, CM SPOKE TO PTS , JORDAN [phone] SHE CONFIRMS PT LIVES AT HOME AND IS ACTIVE WITH [facility] HE HAS A CPAP AND OXYGEN FROM [facility] HCP ON FILE PCP: DESIREE BARTLETT IMM DELIVERED DCP: HOME RESUME [facility] TO TRANSPORT
[2024-02-20] MEDS: rOPINIRole HCL 2 MG TABLET PO ×3 (10:20→20:43)
[2024-02-20] MEDS: oxyCODONE HCl Immed Release 5 MG TABLET PO ×2 (10:20→20:47)
--- NOTE | 2024-02-20 11:08 | P.PNIM_ITS ---
Subjective Subjective Date of Service: 02/20/24 Interval History: somewhat better today Physical Exam 2 Vital Signs: Vital Signs: Last Vital Signs Temp 97.4 F 02/20/24 09:28 Pulse 63 02/20/24 09:28 Resp 18 02/20/24 09:28 BP 116/62 02/20/24 09:34 Pulse Ox 94 02/20/24 09:28 O2 Del Method Nasal Cannula 02/20/24 09:28 O2 Flow Rate 3 02/20/24 09:28 Oxygen Flow Rate 6 02/19/24 13:04 BMI result Body Mass Index 52.7 General: AO X 3, no acute distress Resp: CTA bilateral, no accessory muscles used CVS: S1,S2,RRR GI: soft, non tender, non distended Neuro: motor grossly intact, alert Psych: appropriate affect, appropriate insight Objective Data Active Medications Acetaminophen (Acetaminophen 325 Mg Tablet) 650 mg PO Q6H PRN PRN Reason: Pain, Mild 1-3,fever,headache Albuterol Sulfate (Albuterol Sulfate 90 Mcg 8 Gm Inhaler) 2 puff INHALE Q6H PRN PRN Reason: Wheezing Albuterol/Ipratropium (Albuterol/Iprat 2.5/0.5mg 3 Ml Ampul.Neb) 3 ml INHALE RQ4H WHILE AWAKE PRN PRN Reason: shortness of breath Amiodarone HCl (Amiodarone Hcl 200 Mg Tablet) 200 mg PO DAILY [facility] Last Admin: 02/20/24 09:33 Dose: 200 mg Documented By: MEHUL Apixaban (Apixaban 5 Mg Tablet) 5 mg PO BID [facility] Last Admin: 02/20/24 09:33 Dose: 5 mg Documented By: MEHUL Atorvastatin Calcium (Atorvastatin Calcium 80 Mg Tablet) 80 mg PO BEDTIME [facility] Last Admin: 02/19/24 21:28 Dose: 80 mg Documented By: RHONDA Azithromycin (Azithromycin 500 Mg Tablet) 500 mg PO Q24H [facility] Last Admin: 02/20/24 09:33 Dose: 500 mg Documented By: MEHUL Bumetanide (Bumetanide 1 Mg/4 Ml Vial) 1 mg IVPUSH BID@0900,1700 [facility]; Protocol Last Admin: 02/20/24 09:34 Dose: 1 mg Documented By: MEHUL Calcium Carbonate (Calcium Carbonate 750 Mg Tab.Chew) 750 mg PO Q4H PRN PRN Reason: Heartburn Ceftriaxone Sodium (Ceftriaxone Sodium 1 Gm Vial) 1 gm IVPUSH Q24H [facility] Docusate Sodium (Docusate Sodium 100 Mg Capsule) 100 mg PO BID [facility] Last Admin: 02/20/24 09:33 Dose: 100 mg Documented By: MEHUL Doxazosin Mesylate (Doxazosin Mesylate 2 Mg Tablet) 8 mg PO BEDTIME [facility]; Protocol Last Admin: 02/19/24 21:29 Dose: 8 mg Documented By: RHONDA Duloxetine HCl (Duloxetine Hcl 60 Mg Capsule.Dr) 60 mg PO DAILY [facility] Last Admin: 02/20/24 09:33 Dose: 60 mg Documented By: MEHUL Finasteride (Finasteride 5 Mg Tablet) 5 mg PO DAILY [facility] Last Admin: 02/20/24 09:34 Dose: 5 mg Documented By: MEHUL Magnesium Hydroxide (Milk Of Magnesia 30 Ml Oral.Susp) 30 ml PO DAILY PRN PRN Reason: Constipation Melatonin (Melatonin 3 Mg Tablet) 6 mg PO BEDTIME PRN PRN Reason: Insomnia Last Admin: 02/19/24 23:18 Dose: 6 mg Documented By: RHONDA Methylprednisolone Sodium Succinate (Methylprednisolone Sod Succ 40 Mg/Ml Vial) 40 mg IVPUSH Q12H [facility] Last Admin: 02/20/24 09:34 Dose: 40 mg Documented By: MEHUL Non-Formulary Medication (Umeclidinium-Vilanterol [Anoro Ellipta]) 1 inhalation PO DAILY [facility] Oxybutynin Chloride (Oxybutynin Chloride Er 5 Mg Tab.Er.24) 10 mg PO DAILY [facility] Last Admin: 02/20/24 09:32 Dose: 10 mg Documented By: MEHUL Pregabalin (Pregabalin 150 Mg Capsule) 150 mg PO TID [facility] Last Admin: 02/20/24 09:33 Dose: 150 mg Documented By: MEHUL Ropinirole HCl (Ropinirole Hcl 2 Mg Tablet) 2 mg PO TID [facility] Last Admin: 02/20/24 10:20 Dose: 2 mg Documented By: MEHUL Sodium Chloride (0.9 % Sodium Chloride Flush 3 Ml Syringe) 3 ml IVFLUSH QSHIFT [facility] Last Admin: 02/20/24 09:41 Dose: 3 ml Documented By: MEHUL Spironolactone (Spironolactone 25 Mg Tablet) 50 mg PO DAILY [facility]; Protocol Last Admin: 02/20/24 09:33 Dose: 50 mg Documented By: MEHUL Zolpidem Tartrate (Zolpidem Tartrate 5 Mg Tablet) 5 mg PO BEDTIME PRN PRN Reason: sleep Labs 02/20/24 04:30 02/20/24 04:30 Labs: Laboratory Results - last 24 hr 02/19/24 02/19/24 02/19/24 13:21 13:22 13:27 MCV 99.5 H MCH 33.9 H MCHC 34.1 RDW 13.9 Plt Count 343 D MPV 9.9 Immature Gran % (Auto) 0.9 H Neut % (Auto) 91.3 H Lymph % (Auto) 4.3 L [place] % (Auto) 3.1 Eos % (Auto) 0.1 Baso % (Auto) 0.3 Lymph # (Auto) 0.9 L [place] # (Auto) 0.6 Eos # (Auto) 0.0 Baso # (Auto) 0.1 Abs Immat Gran (auto) 0.18 H Absolute Neuts (auto) 18.9 H Absolute Nucleated RBC 0.000 Nucleated RBC % (auto) 0.0 Smear Tech's Comments VERIFIED PT 15.8 H INR 1.4 H VBG pH 7.45 H VBG pCO2 43 VBG pO2 52 VBG HCO3 30 H VBG O2 Saturation 83.0 VBG Base Excess 5.4 Anion Gap 13 Estim Creat Clear Calc 128.5 Estimated GFR > 60 Random Glucose 126 H Lactic Acid Calcium 8.8 Magnesium 2.0 Total Bilirubin 0.8 Direct Bilirubin 0.3 AST 26 ALT 12 Alkaline Phosphatase 75 Troponin I High Sens < 2.7 B-Natriuretic Peptide 48 Total Protein 7.0 Albumin 3.8 Lipase 8 Urine Color Yellow Urine Appearance Clear Urine pH 7.0 Ur Specific [place] <= 1.005 Urine Protein Negative Urine Glucose (UA) Negative Urine Ketones Negative Urine Blood Negative Urine Nitrite Negative Ur Leukocyte Esterase Negative Influenza Type A (PCR) NEGATIVE Influenza Type B (PCR) NEGATIVE RSV RNA Qual (PCR) NEGATIVE SARS-CoV-2 RNA (RT-PCR) POSITIVE A 02/19/24 02/20/24 15:56 04:30 MCV 100.0 H MCH 34.4 H MCHC 34.4 RDW 13.7 Plt Count 357 MPV 10.0 Immature Gran % (Auto) Neut % (Auto) Lymph % (Auto) [place] % (Auto) Eos % (Auto) Baso % (Auto) Lymph # (Auto) [place] # (Auto) Eos # (Auto) Baso # (Auto) Abs Immat Gran (auto) Absolute Neuts (auto) Absolute Nucleated RBC 0.000 Nucleated RBC % (auto) 0.0 Smear Tech's Comments PT INR VBG pH VBG pCO2 VBG pO2 VBG HCO3 VBG O2 Saturation VBG Base Excess Anion Gap 13 Estim Creat Clear Calc 128.5 Estimated GFR > 60 Random Glucose 151 H Lactic Acid 1.1 Calcium 8.8 Magnesium 2.2 Total Bilirubin Direct Bilirubin AST ALT Alkaline Phosphatase Troponin I High Sens B-Natriuretic Peptide Total Protein Albumin Lipase Urine Color Urine Appearance Urine pH Ur Specific [place] Urine Protein Urine Glucose (UA) Urine Ketones Urine Blood Urine Nitrite Ur Leukocyte Esterase Influenza Type A (PCR) Influenza Type B (PCR) RSV RNA Qual (PCR) SARS-CoV-2 RNA (RT-PCR) Assessment and Plan (1) Acute congestive heart failure: Status: Acute Plan 69M PMH paroxysmal AFib, chronic diastolic CHF, chronic lymphedema, hypertension, chronic hypoxic respiratory failure due to COPD on 3 L home O2, JEFFRY on CPAP, seronegative rheumatoid arthritis, hyperthyroid - graves, hypertension, overactive bladder, morbid obesity presented with 2 days of shortness of breath and left sided rib pain worse with inspiration Dyspnea due to Chronic hypoxic respiratory failure due to COPD with acute decompensation due to COVID Steroids, bronchodilators May be additional component of acute on chronic diastolic CHF continue IV Bumex, monitor closely Left rib pain likely from atelectasis, can not rule out underlying pneumonia will empirically treated with ceftriaxone and azithromycin No sepsis, leukocytosis from prednisone now at baseline o2, still sob graves d/w endocrine, appears that should be on methimazole 5mg Paroxysmal AFib Continue amiodarone and Eliquis Morbid obesity Weight loss recommended JEFFRY CPAP at night Seronegative rheumatoid arthritis Outpatient Rheumatology follow-up DVT prophylaxis on Eliquis Full Code reason for continued hospitalization:sob Quality Stroke Does the patient have a stroke diagnosis?: No VTE Prior VTE?: No VTE Risk Level:: Medical - moderate - high VTE Device Contraindication: Treatment Not Indicated VTE Drug Contraindication: N/A - Med Ordered
[2024-02-20] MEDS: Ammonium Lactate 12 % Lotion 226 GM BOTTLE 1 APPL TOPICAL (13:36)
[2024-02-20] MEDS: cefTRIAXone sodium 1 GM VIAL IVPUSH (16:14)
[2024-02-20] MEDS: Doxazosin Mesylate 2 MG TABLET 8 MG PO (20:43)
[2024-02-20] MEDS: Atorvastatin Calcium 80 MG TABLET PO (20:44)
[2024-02-20] MEDS: Zolpidem Tartrate 5 MG TABLET PO (21:55)
[2024-02-21 03:40] VITALS: BP 129/67; PULSE 97; RESP 18; TEMP 36.1; O2SAT 96
[2024-02-21 06:23] LABS: Hematocrit 42.2 % (42.0-52.0); Mean Corpuscular HGB Conc 33.2 g/dl (31.0-36.0); Mean Corpuscular Hemoglobin 33.5 pg (27.0-33.0); Mean Platelet Volume 9.8 fL (9.4-12.4); Platelet Count 373 X10*3/uL (160-400); Red Blood Count 4.18 X10*6/uL (4.60-5.80); Red Cell Distribution Width 13.7 % (11.0-16.0); White Blood Count 19.7 X10*3/uL (4.8-10.8)
[2024-02-21 06:39] LABS: Anion Gap 12 (12-20); Blood Urea Nitrogen 31 mg/dL (9-16); Calcium 8.6 mg/dL (8.4-10.2); Carbon Dioxide 26 mmol/L (22-29); Chloride 105 mmol/L (96-108); Creatinine Clr Calc Pharmacy 118.7; Estimated Glomerular Filt Rate > 60; Glucose Random 168 mg/dL (60-115); Potassium 4.4 mmol/L (3.3-5.1); Sodium 139 mmol/L (135-145)
[2024-02-21 08:00] VITALS: BP 108/69; PULSE 56; RESP 20; TEMP 35.9; O2SAT 97
[2024-02-21] MEDS: Bumetanide 1 MG TABLET PO ×2 (09:31→16:00)
[2024-02-21] MEDS: Azithromycin 500 MG TABLET PO (09:31)
[2024-02-21] MEDS: rOPINIRole HCL 2 MG TABLET PO ×3 (09:31→21:24)
[2024-02-21] MEDS: methylPREDNISolone Sod Succ 40 MG/ML VIAL IVPUSH ×2 (09:31→21:42)
[2024-02-21] MEDS: Apixaban 5 MG TABLET PO ×2 (09:31→21:24)
[2024-02-21] MEDS: Pregabalin 150 MG CAPSULE PO ×3 (09:31→21:24)
[2024-02-21] MEDS: Amiodarone HCL 200 MG TABLET PO (09:32)
[2024-02-21] MEDS: DULoxetine HCl 60 MG CAPSULE.DR PO (09:32)
[2024-02-21] MEDS: Docusate Sodium 100 MG CAPSULE PO ×2 (09:32→21:24)
[2024-02-21] MEDS: Finasteride 5 MG TABLET PO (09:32)
[2024-02-21] MEDS: Spironolactone 25 MG TABLET 50 MG PO (09:32)
[2024-02-21] MEDS: Ammonium Lactate 12 % Lotion 226 GM BOTTLE 1 APPL TOPICAL (09:40)
--- NOTE | 2024-02-21 09:50 | P.PNIM_ITS ---
Subjective Subjective Date of Service: 02/21/24 Interval History: somewhat better today Physical Exam 2 Vital Signs: Vital Signs: Last Vital Signs Temp 96.6 F L 02/21/24 08:00 Pulse 56 02/21/24 08:00 Resp 20 02/21/24 08:00 BP 108/69 02/21/24 08:00 Pulse Ox 97 02/21/24 08:00 O2 Del Method Nasal Cannula 02/21/24 08:00 O2 Flow Rate 3 02/21/24 08:00 Oxygen Flow Rate 6 02/19/24 13:04 BMI result Body Mass Index 51.5 General: AO X 3, no acute distress Resp: CTA bilateral, no accessory muscles used CVS: S1,S2,RRR GI: soft, non tender, non distended Neuro: motor grossly intact, alert Psych: appropriate affect, appropriate insight Objective Data Active Medications Acetaminophen (Acetaminophen 325 Mg Tablet) 650 mg PO Q6H PRN PRN Reason: Pain, Mild 1-3,fever,headache Albuterol Sulfate (Albuterol Sulfate 90 Mcg 8 Gm Inhaler) 2 puff INHALE Q6H PRN PRN Reason: Wheezing Albuterol/Ipratropium (Albuterol/Iprat 2.5/0.5mg 3 Ml Ampul.Neb) 3 ml INHALE RQ4H WHILE AWAKE PRN PRN Reason: shortness of breath Amiodarone HCl (Amiodarone Hcl 200 Mg Tablet) 200 mg PO DAILY [facility] Last Admin: 02/20/24 09:33 Dose: 200 mg Documented By: MEHUL Apixaban (Apixaban 5 Mg Tablet) 5 mg PO BID [facility] Last Admin: 02/20/24 20:43 Dose: 5 mg Documented By: MOISE Atorvastatin Calcium (Atorvastatin Calcium 80 Mg Tablet) 80 mg PO BEDTIME [facility] Last Admin: 02/20/24 20:44 Dose: 80 mg Documented By: MOISE Azithromycin (Azithromycin 500 Mg Tablet) 500 mg PO Q24H [facility] Last Admin: 02/20/24 09:33 Dose: 500 mg Documented By: MEHUL Bumetanide (Bumetanide 1 Mg Tablet) 1 mg PO BID@0800,1700 [facility]; Protocol Calcium Carbonate (Calcium Carbonate 750 Mg Tab.Chew) 750 mg PO Q4H PRN PRN Reason: Heartburn Ceftriaxone Sodium (Ceftriaxone Sodium 1 Gm Vial) 1 gm IVPUSH Q24H [facility] Last Admin: 02/20/24 16:14 Dose: 1 gm Documented By: YANETH Docusate Sodium (Docusate Sodium 100 Mg Capsule) 100 mg PO BID [facility] Last Admin: 02/20/24 20:43 Dose: 100 mg Documented By: MOISE Doxazosin Mesylate (Doxazosin Mesylate 2 Mg Tablet) 8 mg PO BEDTIME [facility]; Protocol Last Admin: 02/20/24 20:43 Dose: 8 mg Documented By: MOISE Duloxetine HCl (Duloxetine Hcl 60 Mg Capsule.Dr) 60 mg PO DAILY [facility] Last Admin: 02/20/24 09:33 Dose: 60 mg Documented By: MEHUL Finasteride (Finasteride 5 Mg Tablet) 5 mg PO DAILY [facility] Last Admin: 02/20/24 09:34 Dose: 5 mg Documented By: MEHUL Lactic Acid (Ammonium Lactate 12 % Lotion 226 Gm Bottle) 1 appl TOPICAL DAILY [facility]; Protocol Last Admin: 02/20/24 13:36 Dose: 1 appl Documented By: MEHUL Magnesium Hydroxide (Milk Of Magnesia 30 Ml Oral.Susp) 30 ml PO DAILY PRN PRN Reason: Constipation Melatonin (Melatonin 3 Mg Tablet) 6 mg PO BEDTIME PRN PRN Reason: Insomnia Last Admin: 02/19/24 23:18 Dose: 6 mg Documented By: RHONDA Methylprednisolone Sodium Succinate (Methylprednisolone Sod Succ 40 Mg/Ml Vial) 40 mg IVPUSH Q12H [facility] Last Admin: 02/20/24 21:55 Dose: 40 mg Documented By: MOISE Non-Formulary Medication (Umeclidinium-Vilanterol [Anoro Ellipta]) 1 inhalation PO DAILY [facility] Oxybutynin Chloride (Oxybutynin Chloride Er 5 Mg Tab.Er.24) 10 mg PO DAILY [facility] Last Admin: 02/20/24 09:32 Dose: 10 mg Documented By: MEHUL Oxycodone HCl (Oxycodone Hcl Immed Release 5 Mg Tablet) 5 mg PO ONCE PRN PRN Reason: Pain, Severe (Pain Scale 7-10) Last Admin: 02/20/24 20:47 Dose: 5 mg Documented By: MOISE Pregabalin (Pregabalin 150 Mg Capsule) 150 mg PO TID [facility] Last Admin: 02/20/24 20:44 Dose: 150 mg Documented By: MOISE Ropinirole HCl (Ropinirole Hcl 2 Mg Tablet) 2 mg PO TID [facility] Last Admin: 02/20/24 20:43 Dose: 2 mg Documented By: MOISE Sodium Chloride (0.9 % Sodium Chloride Flush 3 Ml Syringe) 3 ml IVFLUSH QSHIFT [facility] Last Admin: 02/20/24 20:44 Dose: 3 ml Documented By: MOISE Spironolactone (Spironolactone 25 Mg Tablet) 50 mg PO DAILY [facility]; Protocol Last Admin: 02/20/24 09:33 Dose: 50 mg Documented By: MEHUL Zolpidem Tartrate (Zolpidem Tartrate 5 Mg Tablet) 5 mg PO BEDTIME PRN PRN Reason: sleep Last Admin: 02/20/24 21:55 Dose: 5 mg Documented By: MOISE Labs 02/21/24 06:14 02/21/24 06:14 Labs: Laboratory Results - last 24 hr 02/21/24 06:14 MCV 101.0 H MCH 33.5 H MCHC 33.2 RDW 13.7 Plt Count 373 MPV 9.8 Absolute Nucleated RBC 0.000 Nucleated RBC % (auto) 0.0 Anion Gap 12 Estim Creat Clear Calc 118.7 Estimated GFR > 60 Random Glucose 168 H Calcium 8.6 Microbiology Microbiology Results: Microbiology 02/19/24 15:56 Blood Culture - Preliminary Blood - Venous No growth after 24 hours. 02/19/24 15:57 Blood Culture - Preliminary Blood - Venous No growth after 24 hours. Assessment and Plan (1) Acute congestive heart failure: Status: Acute Plan 69M PMH paroxysmal AFib, chronic diastolic CHF, chronic lymphedema, hypertension, chronic hypoxic respiratory failure due to COPD on 3 L home O2, JEFFRY on CPAP, seronegative rheumatoid arthritis, hyperthyroid - graves, hypertension, overactive bladder, morbid obesity presented with 2 days of shortness of breath and left sided rib pain worse with inspiration Dyspnea due to Chronic hypoxic respiratory failure due to COPD with acute decompensation due to COVID Steroids, bronchodilators May be additional component of acute on chronic diastolic CHF diuresed with IV Bumex, will transition back to po maintence Left rib pain likely from atelectasis, can not rule out underlying pneumonia will empirically treated with ceftriaxone and azithromycin No sepsis, leukocytosis from prednisone now at baseline o2, still sob graves patient states he was told to dc methimazole follow up with endocrine as outpatient, recent TSH normal Paroxysmal AFib Continue amiodarone and Eliquis Morbid obesity Weight loss recommended JEFFRY CPAP at night Seronegative rheumatoid arthritis Outpatient Rheumatology follow-up DVT prophylaxis on Eliquis Full Code reason for continued hospitalization:sob Quality Stroke Does the patient have a stroke diagnosis?: No VTE Prior VTE?: No VTE Risk Level:: Medical - moderate - high VTE Device Contraindication: Treatment Not Indicated VTE Drug Contraindication: N/A - Med Ordered
[2024-02-21] MEDS: oxyBUTYnin chloride ER 5 MG TAB.ER.24 10 MG PO (09:51)
[2024-02-21] MEDS: 0.9 % Sodium Chloride Flush 3 ML SYRINGE IVFLUSH ×3 (10:11→21:24)
[2024-02-21] MEDS: oxyCODONE HCl Immed Release 5 MG TABLET PO ×2 (11:25→21:41)
[2024-02-21 16:00] VITALS: BP 110/69; PULSE 68; RESP 18; TEMP 36.1; O2SAT 96
[2024-02-21] MEDS: cefTRIAXone sodium 1 GM VIAL IVPUSH (16:00)
[2024-02-21 19:55] VITALS: BP 124/73; PULSE 73; RESP 18; TEMP 35.9; O2SAT 99
[2024-02-21] MEDS: Doxazosin Mesylate 2 MG TABLET 8 MG PO (21:23)
[2024-02-21] MEDS: Atorvastatin Calcium 80 MG TABLET PO (21:24)
[2024-02-21] MEDS: Zolpidem Tartrate 5 MG TABLET PO (21:43)
[2024-02-21 23:24] VITALS: RESP 18
[2024-02-22 03:21] VITALS: BP 116/61; PULSE 57; RESP 16; TEMP 36.2; O2SAT 99
[2024-02-22 07:10] LABS: Hematocrit 42.4 % (42.0-52.0); Hemoglobin 14.5 g/dl (14.0-18.0); Mean Corpuscular HGB Conc 34.2 g/dl (31.0-36.0); Mean Corpuscular Hemoglobin 34.1 pg (27.0-33.0); Mean Corpuscular Volume 99.8 fL (80.0-98.0); Mean Platelet Volume 9.8 fL (9.4-12.4); Platelet Count 401 X10*3/uL (160-400); Red Blood Count 4.25 X10*6/uL (4.60-5.80); Red Cell Distribution Width 13.6 % (11.0-16.0); White Blood Count 16.7 X10*3/uL (4.8-10.8)
[2024-02-22 07:23] LABS: Anion Gap 11 (12-20); Blood Urea Nitrogen 30 mg/dL (9-16); Calcium 8.5 mg/dL (8.4-10.2); Carbon Dioxide 27 mmol/L (22-29); Chloride 104 mmol/L (96-108); Estimated Glomerular Filt Rate > 60; Glucose Random 141 mg/dL (60-115); Potassium 4.4 mmol/L (3.3-5.1); Sodium 138 mmol/L (135-145)
[2024-02-22 07:26] VITALS: BP 119/68; PULSE 54; RESP 17; TEMP 36.6; O2SAT 93
[2024-02-22] MEDS: DULoxetine HCl 60 MG CAPSULE.DR PO (08:07)
[2024-02-22] MEDS: methylPREDNISolone Sod Succ 40 MG/ML VIAL IVPUSH (08:07)
[2024-02-22] MEDS: oxyBUTYnin chloride ER 5 MG TAB.ER.24 10 MG PO (08:07)
[2024-02-22] MEDS: rOPINIRole HCL 2 MG TABLET PO (08:07)
[2024-02-22] MEDS: Azithromycin 500 MG TABLET PO (08:07)
[2024-02-22] MEDS: Apixaban 5 MG TABLET PO (08:07)
[2024-02-22] MEDS: Spironolactone 25 MG TABLET 50 MG PO (08:07)
[2024-02-22] MEDS: Finasteride 5 MG TABLET PO (08:08)
[2024-02-22] MEDS: Ammonium Lactate 12 % Lotion 226 GM BOTTLE 1 APPL TOPICAL (08:08)
[2024-02-22] MEDS: Docusate Sodium 100 MG CAPSULE PO (08:08)
[2024-02-22] MEDS: Amiodarone HCL 200 MG TABLET PO (08:08)
[2024-02-22] MEDS: Pregabalin 150 MG CAPSULE PO (08:08)
[2024-02-22] MEDS: 0.9 % Sodium Chloride Flush 3 ML SYRINGE IVFLUSH (08:09)
--- NOTE | 2024-02-22 08:37 | P.DS_ITS ---
DS: Providers Provider Date of Service: 02/22/24 Date of admission: 02/19/24 18:29 Date of discharge: 02/22/24 Primary care physician: Diego Augustine [facility] DS: Diagnosis Discharge Diagnosis (1) Acute congestive heart failure: Status: Acute DS: Summary Hospital Course Hospital Course: from initial hpi: 69M PMH paroxysmal AFib, chronic diastolic CHF, chronic lymphedema, hypertension, chronic hypoxic respiratory failure due to COPD on 3 L home O2, JEFFRY on CPAP, seronegative rheumatoid arthritis, hyperthyroid - now euthyroid, hypertension, overactive bladder, morbid obesity presented with 2 days of shortness of breath and left sided rib pain worse with inspiration. He had been evaluated in walk-in clinic, diagnosed with pneumonia and started on doxycycline on prednisone. Patient has ongoing symptoms and was requiring 5 L at home. Denies fever, abdominal pain, nausea vomiting diarrhea. Called ambulance. In ED saturation appears to be at baseline 93% on ambulation on 3 L. noted to be COVID positive. CTA chest with no PE, has minimal linear atelectasis versus scarring along the posterior lower lobes, mild to moderate upper lobe predominant emphysema. hospital course: Patient was admitted for dyspnea due to chronic hypoxic respiratory failure due to COPD with acute decompensation due to COVID and acute on chronic diastolic CHF. He was treated with IV Bumex, IV steroids, DuoNebs, empiric ceftriaxone and azithromycin for possible underlying pneumonia. Patient's O2 supplement remained at baseline. His shortness of breath slowly improved. He will be discharged home on prednisone for 5 more days and will continue antibiotics started as outpatient. For his hyperthyroid due to Graves disease he is no longer on methimazole and will follow up with Endocrine. For paroxysmal atrial fibrillation was continued on amiodarone and Eliquis. For morbid obesity weight loss recommended for JEFFRY was continued on CPAP at night. For her seronegative rheumatoid arthritis he will follow up with Rheumatology as outpatient. Time Attestation Discharge Coordination Time (in mins): 34 Quality: Safe Use of Opioids Does Pt have an Active Cancer Diagnosis on the Problem List?: No Quality: Stroke Does the patient have a stroke diagnosis?: No Physical Exam Vital Signs: Vital Signs: Last Vital Signs Temp 97.8 F 02/22/24 07:26 Pulse 54 02/22/24 07:26 Resp 17 02/22/24 07:26 BP 119/68 02/22/24 07:26 Pulse Ox 93 02/22/24 07:26 O2 Del Method Nasal Cannula 02/22/24 07:26 O2 Flow Rate 3 02/22/24 07:26 Oxygen Flow Rate 6 02/19/24 13:04 BMI result Body Mass Index 51.5 General: AO X 3, no acute distress Resp: CTA bilateral, no accessory muscles used CVS: S1,S2,RRR GI: soft, non tender, non distended Neuro: motor grossly intact, alert Psych: appropriate affect, appropriate insight Bilateral lower extremity chronic lymphedema with 3+ edema and some venous stasis erythema DS: Data Data Completed and Pending Completed studies during hospitalization [Text1]: Procedures Assistance with Respiratory Ventilation, Less than 24 Consecutive Hours, Continuous Positive Airway Pressure (12/06/23) Introduction of Anesthetic Agent into Joints, Percutaneous Approach (10/14/22) Introduction of Anti-inflammatory into Joints, Percutaneous Approach (10/14/22) Introduction of Remdesivir Anti-infective into Peripheral Vein, Percutaneous Approach, [employer] (05/16/20) Labs on day of discharge: Laboratory Results - last 24 hr 02/22/24 06:41 WBC 16.7 H RBC 4.25 L Hgb 14.5 Hct 42.4 MCV 99.8 H MCH 34.1 H MCHC 34.2 RDW 13.6 Plt Count 401 H MPV 9.8 Absolute Nucleated RBC 0.000 Nucleated RBC % (auto) 0.0 Sodium 138 Potassium 4.4 Chloride 104 Carbon Dioxide 27 Anion Gap 11 L BUN 30 H Creatinine 0.92 Estim Creat Clear Calc 142.0 Estimated GFR > 60 Random Glucose 141 H Calcium 8.5 Preliminary micro results at discharge 02/19/24 15:56 Blood Culture - Preliminary Blood - Venous No growth after 48 hours. 02/19/24 15:57 Blood Culture - Preliminary Blood - Venous No growth after 48 hours. Discharge Plan Discharge Anticipated Discharge Date/Time: 02/22/24 08:31 Patient Disposition: Home, Self-Care Discharge Diagnosis: covid, chf, copd Referrals: Diego Augustine FNP-BC [Primary Care Provider] - 1 Week Discharge Medications: New prednisone 20 mg tablet 40 mg PO DAILY Qty: 10 0RF Continued (DME) walker Misc See Rx Instructions .Route Qty: 1 0RF Rx Instructions: daily use (rolling sitting walker-bariatric size needed) finasteride 5 mg tablet 5 mg PO DAILY 90 Days Qty: 90 1RF amiodarone 200 mg tablet 200 mg PO DAILY 90 Days Qty: 90 2RF doxazosin 8 mg tablet 8 mg PO BEDTIME 90 Days Qty: 90 1RF Anoro Ellipta 62.5-25 mcg/actuation blister with device 1 inh PO DAILY Qty: 60 3RF pregabalin 150 mg capsule 150 mg PO TID 90 Days Qty: 270 2RF (DME) Powered bariatric recliner See Rx Instructions .Route .MEDSUPPLY Qty: 1 0RF Rx Instructions: As directed atorvastatin 80 mg tablet 80 mg PO BEDTIME 90 Days Qty: 90 1RF bumetanide 1 mg tablet 2 mg PO DAILY Qty: 120 0RF duloxetine 60 mg capsule,delayed release(DR/EC) 60 mg PO DAILY Qty: 90 0RF docusate sodium [Colace] 100 mg capsule 100 mg PO BID Qty: 180 1RF Eliquis 5 mg tablet 5 mg PO BID Qty: 60 5RF zolpidem 5 mg tablet 5 mg PO BEDTIME PRN (Reason: sleep) Qty: 30 1RF ropinirole 2 mg tablet 2 mg PO TID 90 Days Qty: 270 0RF spironolactone 25 mg tablet 50 mg PO DAILY 90 Days Qty: 180 3RF albuterol sulfate 90 mcg/actuation HFA aerosol inhaler 2 puff PO Q6H PRN (Reason: for wheezing) oxybutynin chloride 10 mg tablet extended release 24hr 10 mg PO DAILY ammonium lactate 12 % lotion 1 appl topical DAILY amoxicillin-pot clavulanate 875-125 mg tablet 1 tab PO BID 10 Days Qty: 20 0RF Rx Instructions: End date 02/20/24 ascorbic acid (vitamin C) 1,000 mg tablet 1 g PO DAILY 90 Days Qty: 90 1RF methenamine hippurate 1 gram tablet 1 g PO DAILY 90 Days Qty: 90 1RF doxycycline hyclate 100 mg tablet 100 mg PO BID Qty: 14 0RF Rx Instructions: End date 02/24/24 prednisone 20 mg tablet 40 mg PO DAILY Qty: 10 0RF Rx Instructions: End date 02/21/24 Discharge Orders: Discharge Order (Routine); Ordered 02/22/24 Ordered By: Abdulkadir Jesin Diet: Advance to usual diet Activity on Discharge: As tolerated Stand Alone Forms: Patient Portal Discharge page Print Language: Kittitian Care Plan Goals: Recovered Health Concerns: COVID, CHF, COPD Plan of Treatment: Complete antibiotic course, prednisone for 5 more days Assessment: See above
--- NOTE | 2024-02-22 08:44 | MHC.CM.PN ---
PT CLEARED TO DC HOME TODAY WITH NO SERVICES TO TRANSPORT
== END 2024-02-22 11:24 | disposition home health service (06) | DRG 177 ==
LOC: HO.ED 18:07 → HO.EDOVER 18:33 → HO.IMC 02-20 14:31
PROVIDERS: Emergency Medicine; Physician Assistant Medical; Admitting Provider Internal Medicine; Emergency Provider Emergency Medicine; PCP Nurse Practitioner Family; Visit Provider Internal Medicine
DX: U07.1 COVID-19 (principal); I50.33 Acute on chronic diastolic (congestive) heart failure; J18.9 Pneumonia, unspecified organism; J96.11 Chronic respiratory failure with hypoxia; Z68.43 Body mass index [BMI] 50.0-59.9, adult; J98.11 Atelectasis; J43.9 Emphysema, unspecified; I48.0 Paroxysmal atrial fibrillation; E66.01 Morbid (severe) obesity due to excess calories; E05.00 Thyrotoxicosis with diffuse goiter without thyrotoxic crisis or storm; I11.0 Hypertensive heart disease with heart failure; M06.00 Rheumatoid arthritis without rheumatoid factor, unspecified site; G47.33 Obstructive sleep apnea (adult) (pediatric); Z99.81 Dependence on supplemental oxygen; Z79.01 Long term (current) use of anticoagulants; Z79.899 Other long term (current) drug therapy
CPT/HCPCS: 0241U; 36415; 71045; 71046; 71275; 80048; 80076; 81003; 82803; 83605; 83690; 83735; 83880; 84484; 85025; 85027; 85610; 87040; 93005; 94640; 94660; 99212; 99285; J0696; J1939; J2919; Q9967

== ENCOUNTER → 2024-02-19 12:58 | Outpatient (BNV) | payer MEDICARE, SELFPAY | PROVIDERS: Emergency Provider Emergency Medicine; PCP Nurse Practitioner Family; Visit Provider Radiology Diagnostic Radiology | DX: R09.02 Hypoxemia (principal) | CPT/HCPCS: 71045 ==

== ENCOUNTER → 2024-02-19 12:58 | Outpatient (BNV) | payer MEDICARE, SELFPAY | PROVIDERS: Emergency Provider Emergency Medicine; PCP Nurse Practitioner Family; Visit Provider Internal Medicine Cardiovascular Disease | DX: R94.31 Abnormal electrocardiogram [ECG] [EKG] (principal) | CPT/HCPCS: 93010 ==

== ENCOUNTER → 2024-02-19 18:29 | Outpatient (BNV) | payer MEDICARE, SELFPAY | PROVIDERS: Admitting Provider Internal Medicine; Emergency Provider Emergency Medicine; PCP Nurse Practitioner Family; Visit Provider Internal Medicine | DX: I50.31 Acute diastolic (congestive) heart failure (principal); I48.0 Paroxysmal atrial fibrillation; E66.01 Morbid (severe) obesity due to excess calories | CPT/HCPCS: 99223; 99232; 99239 ==

== ENCOUNTER → 2024-02-23 13:26 | Outpatient (BNVA) | payer MEDICARE, SELFPAY | PROVIDERS: PCP Nurse Practitioner Family; Visit Provider Internal Medicine Hypertension Specialist ==

== ENCOUNTER → 2024-02-23 13:26 | Outpatient (AMB) | payer MEDICARE, SELFPAY ==
[2024-02-23 13:27] VITALS: BMI 52.2
--- NOTE | 2024-02-23 13:27 | HO.NEPHOV ---
Vital Signs 02/23/24 13:27 Height 6 ft 4 in Weight 429 lb BMI 52.2 Intake Visit Reasons: follow up Brim Edge Trimmer Required: No Accompanied by: Self / Same As Patient Allergies No Known Allergies [No Known Allergies*] Allergy (Verified 02/23/24 13:27) Medication List - Last Reconciled 02/23/24 by Sreedhar Kruse MD albuterol sulfate 90 mcg/actuation 2 puffs PO Q6H PRN amiodarone 200 mg PO DAILY 90 days ammonium lactate 12% 1 appl topical DAILY amoxicillin-pot clavulanate 875-125 mg 1 tab PO BID 10 days Anoro Ellipta 62.5-25 mcg/actuation (umeclidinium-vilanterol) 1 inh PO DAILY NS apixaban (Eliquis) 5 mg PO BID ascorbic acid (vitamin C) 1 g PO DAILY 90 days atorvastatin 80 mg PO BEDTIME 90 days bumetanide 2 mg (2 x 1 mg) PO DAILY docusate sodium (Colace) 100 mg PO BID doxazosin 8 mg PO BEDTIME 90 days doxycycline hyclate 100 mg PO BID duloxetine 60 mg PO DAILY finasteride 5 mg PO DAILY 90 days methenamine hippurate 1 g PO DAILY 90 days oxybutynin chloride ER 10 mg PO DAILY [Powered bariatric recliner As directed] prednisone 40 mg (2 x 20 mg) PO DAILY prednisone 40 mg (2 x 20 mg) PO DAILY pregabalin 150 mg PO TID 90 days ropinirole 2 mg PO TID 90 days spironolactone 50 mg (2 x 25 mg) PO DAILY 90 days walker daily use (rolling sitting walker-bariatric size needed) zolpidem 5 mg PO BEDTIME PRN HPI Comments Details: 68-year-old male with significant h/o paroxysmal AFib on Eliquis and amiodarone, HFrEF, lymphedema with chronic venous stasis, HTN, COPD on 3L home O2, JEFFRY on CPAP, seronegative RA, HTN, overactive bladder, and obesity class 3 who presents to the ED for evaluation of abdominal and testicular swelling x3-4 weeks, worsening in the past few days During the hospital stay he received IV Lasix and developed acute kidney injury with a creatinine peaking at 2.4. Diuretics were held for few days and renal function improved. Diuretics were started at a lower dose. He has continued lose weight. Serum creatinine is back to baseline. He is here for follow-up [facility] Medical History Paroxysmal atrial fibrillation Congestive heart failure Testicular swelling Osteoarthritis of right knee Melanoma History of cardioversion Hereditary lymphedema Venous insufficiency Morbid obesity Lymphedema COPD (chronic obstructive pulmonary disease) Sensory neuropathy COVID-19 Respiratory failure with hypoxia Restrictive lung disease COPD (chronic obstructive pulmonary disease) JEFFRY on CPAP MATUTE (dyspnea on exertion) Chronic cystitis Bladder outlet obstruction Restless leg syndrome Traumatic complete tear of right rotator cuff Injury of right rotator cuff History of diverticulitis History of umbilical hernia Surgical History Hx of colonoscopy History of appendectomy History of arthroscopy of left knee Family History Father Arthritis Diabetes Mother Arthritis Kidney stones Family/Other Arthritis Sister No problems noted. Sister No problems noted. Son No problems noted. Social History Household Members: Spouse Household Members Other:: Housing: Condominium Do you presently have visiting nurse or other home services: Yes Alcohol intake: current Alcohol intake frequency: 0-2 drinks per day Alcohol type: beer Comment: refusing bed alarm Patient Tobacco Use Status: Former Tobacco user Tobacco use type: Cigarette Cigarette Packs Per Day: 1 Cigarettes Per Day: 20.0 Years Smoked: 30 years e-Cigarette/Vaping Use: Never Used Second Hand Smoke Exposure: No Substance Use Type: Marijuana Advance Directives Date on File: 05/16/20 service: No Current occupational status: retired 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[employer]/ [employer] Cognitive needs: No Hearing needs: No Vision needs: No Physical Exam Vital Signs: BMI result Body Mass Index 52.2 Telehealth Telehealth Telehealth Platform: Telephone Location of provider rendering services: practice address Location of patient: address on file Patient Identification confirmed using: Name, : Yes Telehealth method: voice only Results Reviewed Nephrology Results: Hgb 14.5 g/dl (14.0-18.0) 02/22/24 WBC 16.7 X10*3/uL (4.8-10.8) H 02/22/24 Plt Count 401 X10*3/uL (160-400) H 02/22/24 Sodium 138 mmol/L (135-145) 02/22/24 Potassium 4.4 mmol/L (3.3-5.1) 02/22/24 Chloride 104 mmol/L (96-108) 02/22/24 Carbon Dioxide 27 mmol/L (22-29) 02/22/24 BUN 30 mg/dL (9-16) H 02/22/24 Creatinine 0.92 mg/dL (0.5-1.4) 02/22/24 Calcium 8.5 mg/dL (8.4-10.2) 02/22/24 Urine Protein Negative mg/dL (Neg-Trace) 02/19/24 Assessment & Plan Assessment & Plan (1) MARIAN (acute kidney injury): Code(s): N17.9 - Acute kidney failure, unspecified Category: Medical (2) Acute hypoxemic respiratory failure due to COVID-19: Code(s): U07.1 - COVID-19; J96.01 - Acute respiratory failure with hypoxia Category: Medical Plan MARIAN due to hypoperfusion has resolved. Renal function is back to baseline. No significant proteinuria Blood pressure is optimal. Dinh a significant edema with fluid overload. He also has underlying lymphedema in the legs. For now he should stay on a low-sodium diet Continue with current dose of diuretics. Goal is to lose about 1-2 lb every day. I would certainly avoid aggressive diuresis due to the risk of precipitating acute kidney injury again. Orders: Orders Basic Metabolic Panel 3 Months J. - Acute respiratory failure with hypoxia, U07.1 - COVID-19 Coding Level of Care Code Tele Est Pt Level 2 (86323) Diagnoses MARIAN (acute kidney injury) N17.9 Acute hypoxemic respiratory failure due to COVID-19 U07.1; J96.01
--- OUTSIDE RECORDS SUMMARY | 2024-02-23 15:44 | XMS_ITS ---
Author Organization [facility] Address [address] [place] [address] Care Team Providers Care Mounter Saxophones Name Role Phone Diego Gallagher Primary Care Provider Unav ailable Nancy Hardy [phone] Encounters Encounter Location Date Provider Diagnosis [address] [address] 10/28/2023 Nancy Hardy Plan Of Treatment Next Appt Details Provider Name:Nancy li, 03/24/2024 03:30:00 PM, [address] [place] [address], [phone], Progress Notes * Dinh BUCKLEY RDOB:[birth year] (69 yo M)Acc No.[id number]:10/28/2023 Progress Note Patient:?Dinh BUCKLEY Provider:?Nancy Hardy DPM :1955???Age:68 Y???Sex:Male Raj e:10/28/2023 Address:[address] [place], [place] [id number] Pcp:MARU Goldstein Subjective: * Chief Complaints: * ??? * Medical History:? Objective: * Vitals:? Assessment: Plan: * Treatment: * Images: * The named appointment provid er may or may not be the originator of this progress note, and it is not deemed complete until electronically signed by the appointment provider. Sign off status: Pending * Provider:?Nancy Hardy DPM Date:?11/2023 Generated for Katlin ramirez/Cece/Jemima on:?02/23/2024 03:44 PM EST
--- OUTSIDE RECORDS SUMMARY | 2024-02-23 15:44 | XMS_ITS ---
Author Organization [facility] Address [address] [place] [address] Care Team Providers Care Claims Supervisor Name Role Phone Diego Gallagher Primary Care Provider Unav ailable Nancy Hardy [phone] REASON FOR VISIT cx 10/27 Encounters Encounter Location Date Provider Diagnosis [facility] [address] [place] [address] 10/27/2023 Nancy Hardy Plan Of Treatment Next Appt Details Provider Name:Nancy li, 03/24/2024 03:30:00 PM, [address] [place], [address], Progress Notes * Dinh BUCKLEY RDOB:[birth year] (68 yo M)Acc No.[id number]:10/27/2023 Patient:?Dinh Buckley :1955???Age:68 Y???Sex:Male Address:[address] [place], [place] [address], [address] * true * Date:? Generated for Printi ng/Faxing/eTransmitting on:?02/23/2024 03:44 PM EST
--- OUTSIDE RECORDS SUMMARY | 2024-02-23 15:44 | XMS_ITS ---
Author Organization [facility] Address [address] [place] [address] Care Team Providers Care Sound Effects Person Name Role Phone Diego Gallagher Primary Care Provider Unav ailable Nancy Hardy Unavailable [phone] Allergies No Known Allergies REASON FOR VISIT [...] 024 Encounters Encounter Location Date Provider Diagnosis [facility] [address] 01/09/2024 Nancy Mohamuda Neuropathy G62.9 ; Tinea unguium B35.1 ; Atherosclerosis of tanana artery of both lower extremities, with unspecified presence of clinical manifestation I70.203 ; Pain in right toe(s) M79.674 and Pain in left toe(s) M79.675 Assessments Encounter Date Diagnosis (ICD Code) Assessment Notes Treatment Notes Treatment Clinical Notes Section Notes 01/09/2024 Neuropathy (ICD-10 - G62.9) 01/09/2024 Tinea unguium (ICD-10 - B35.1) 01/09/2024 Atherosclerosis of tanana artery of both lower extremities, with unspecified presence of clinical manifestation (ICD-10 - I70.203) 01/09/2024 Pain in right toe(s) (ICD-10 - M79.674) 01/09/2024 Pain in left toe(s) (ICD-10 - M79.675) Plan Of Treatment Next Appt Details Follow Up: 2 Months, Reason: Provider Name:Nancy li, 03/24/2024 03:30:00 PM, [address] [place] [address], [phone], Procedure Notes * Category Sub-Category Detail [...] use of a nail nipper and/or dremel-type profile grinder, to a more viable healthy nail [...] to maintain effectiveness in symptomatic relief - 67232 Keratoma Treatment Parring or Cutting o f Benign Hyperkeratotic Lesion(s) (-57) More than 4 Lesions - The Benign hyperkeratotic lesions, ( 6 ) in total, locations as stated and described in exam, were pared, and/or cut utilizing a sterile 15 blade, tissue nippers, and/or power dremel instrumentation - 70594 Progress Notes * Dinh BUCKLEY RDOB:[birth year] (68 yo M)Acc No.[id number]:01/09/2024 Progress Note Patient:?Dinh BUCKLEY Provider:?Nancy Hardy DPM :1955???Age:68 Y???Sex:Male Raj e:01/09/2024 Address: [address] Pcp:MARU Goldstein Subjective: * Chief Complaints: * ???At Risk FootcarePainful N ail(s) aggrevated by shoes and causing difficulty standing/walking.Foot pain * HPI: ???At Risk footcare:?Pt States Last PCP Visit:?Date?11/18/2023 ???Foot Pain:?Nature:?burning , radiating , shooting , tingling.?Location:?B/L.?Duration:?several years.?Onset:?unknown.?Course:?worse.?Aggravated:?any pressure.?Treatments:?pain medication per PCP for Neuropathy, pt going for appt with [facility] from Ortho referral.? * [...] condition. ?Marital status: , . ?Occupation: retired: [employer]. * Medications:?TakingActemra 1 62 MG/0.9ML Solution Prefilled [...] - G62.9???Specify :Chronic problem, Worse (4)???3.?Atherosclerosis of tanana artery of both lower extremities, with unspecified [...] use of a nail nipper and/or dremel-type profile grinder, to a more viable healthy nail [...] to maintain effectiveness in symptomatic relief - 94914.?Keratoma Treatment:?Parring or Cutting of Benign Hyperkeratotic Lesion(s)?(-57) More than 4 Lesions - The Benign hyperkeratotic lesions, ( 6 ) in total, locations as stated and described in exam, were pared, and/or cut utilizing a sterile 15 blade, tissue nippers, and/or power dremel instrumentation - 40820.? * Procedure Codes:?02759 DEBRI DE NAIL, 6 OR MORE, Modifiers: XS 46015 TRIM SKIN LESIONS, OVER 4, Modifiers: XS , Q8 * Follow Up:?2 Months * Images: * Sign off status: Completed true * Provider:?Nancy Hardy DPM Date:? Generated for Katlin ramirez/Cece/Jemima on:?02/23/2024 03:44 PM EST History and Physical Notes * [...] for Neuropathy, pt going for appt with [facility] from Ortho referral Examination [...]
--- OUTSIDE RECORDS SUMMARY | 2024-02-23 15:45 | XMS_ITS | Patient Health Record ---
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) Active confirmed Problem Mononeuropathy of lower limb (197678509) Neuritis of right foot (G57.91) Active confirmed Problem 64740368 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 Problem Atherosclerosis of rappahannock artery of both lower extremities, with unspecified presence of clinical manifestation (I70.203) Active confirmed Problem 14202504384392723 Atherosclerosi s of artery of both lower extremities (I70.203) Active confirmed Problem 56738885103888113 Neuropathic ul cer of right foot with fat layer exposed (L97.512) Active confirmed Vital Signs Blood pressure diastolic 70 mm Hg 01/09/2024 Height 6ft 4in in 01/09/2024 Blood pressure systolic 132 mm Hg 01/09/2024 Weight 425 lbs 01/09/2024 BMI 51.73 kg/m2 01/09/2024 Encounters Encounter Location Date Provider Diagnosis [facility] [place] [address] [place] [address] 04/11/2023 Nancy Perica Atherosclerosis of rappahannock artery of both lower extremities, with unspecified presence of clinical manifestation I70.203 ; Neuropathy G62.9 ; Tinea unguium B35.1 ; Pain in right toe(s) M79.674 and Pain in left toe(s) M79.[address] [address] 06/18/2023 Nancy Hardy Atherosclerosis of rappahannock artery of both lower extremities, with unspecified presence of clinical manifestation I70.203 ; Neuropathy G62.9 ; Tinea unguium B35.1 ; Pain in right toe(s) M79.674 and Pain in left toe(s) M79.[address] [address] 01/09/2024 Nancy Hardy Neuropathy G62.9 ; Tinea unguium B35.1 ; Atherosclerosis of rappahannock artery of both lower extremities, with unspecified presence of clinical manifestation I70.203 ; Pain in right toe(s) M79.674 and Pain in left toe(s) M79.[address] [address] 10/27/2023 Nancy Hardy Assessments Encounter Date Diagnosis (ICD Code) Assessment Notes Treatment Notes Treatment Clinical Notes Section Notes 04/11/2023 Neuropathy (ICD-10 - G62.9) 04/11/2023 Atherosclerosis of rappahannock artery of both lower extremities, with unspecified presence of clinical manifestation (ICD-10 - I70.203) 06/18/2023 Atherosclerosis of rappahannock artery of both lower extremities, with unspecified presence of clinical manifestation (ICD-10 - I70.203) 01/09/2024 Tinea unguium (ICD-10 - B35.1) 01/09/2024 Neuropathy (ICD-10 - G62.9) 01/09/2024 Atherosclerosis of rappahannock artery of both lower extremities, with unspecified [...] Details Provider Name:Nancy li, 03/24/2024 03:30:00 PM, [address] [place] [address], [phone], Insurance Providers Payer Name Payer Address Payer Phone Subscriber Number Group Number Insured Name Patient Relationship to Insured Coverage Start Date Coverage End Date Medicare National [facility] [employer] [address] [place] [address] [id number] Dinh Craven Self - patient is the insured [employer] [address] [place] [address] [phone] [id number] Dinh Craven Self - patient is the [...]
== END ==
PROVIDERS: PCP Nurse Practitioner Family; Visit Provider Internal Medicine Hypertension Specialist
DX: N17.9 Acute kidney failure, unspecified (principal); U07.1 COVID-19; J96.01 Acute respiratory failure with hypoxia
CPT/HCPCS: 99212

== ENCOUNTER 2024-02-25 12:15 | Outpatient (AMB) | payer MEDICARE, SELFPAY ==
--- NOTE | 2024-02-25 08:08 | A.OFFVIS_ITS ---
Intake Visit Reasons: Hospital D F/U [phone] Allergies No Known Allergies [No Known Allergies*] Allergy (Verified 02/25/24 08:13) Medication List - Last Reconciled 02/25/24 by DIANA PickettP- albuterol sulfate 90 mcg/actuation 2 puffs PO Q6H PRN amiodarone 200 mg PO DAILY 90 days ammonium lactate 12% 1 appl topical DAILY amoxicillin-pot clavulanate 875-125 mg 1 tab PO BID 10 days Anoro Ellipta 62.5-25 mcg/actuation (umeclidinium-vilanterol) 1 inh PO DAILY NS apixaban (Eliquis) 5 mg PO BID ascorbic acid (vitamin C) 1 g PO DAILY 90 days atorvastatin 80 mg PO BEDTIME 90 days bumetanide 2 mg (2 x 1 mg) PO DAILY docusate sodium (Colace) 100 mg PO BID doxazosin 8 mg PO BEDTIME 90 days doxycycline hyclate 100 mg PO BID duloxetine 60 mg PO DAILY finasteride 5 mg PO DAILY 90 days methenamine hippurate 1 g PO DAILY 90 days oxybutynin chloride ER 10 mg PO DAILY [Powered bariatric recliner As directed] prednisone 40 mg (2 x 20 mg) PO DAILY prednisone 40 mg (2 x 20 mg) PO DAILY pregabalin 150 mg PO TID 90 days ropinirole 2 mg PO TID 90 days spironolactone 50 mg (2 x 25 mg) PO DAILY 90 days walker daily use (rolling sitting walker-bariatric size needed) zolpidem 5 mg PO BEDTIME PRN HPI HPI Hospital D F/U [phone]: Details: History of Present Illness The patient is a 69-year-old male presenting with a follow-up visit after a hospital discharge related to a COVID-19 infection. He initially developed severe shortness of breath at home. Once admitted to the hospital, it was confirmed he was COVID-19 positive. His medical history includes chronic heart failure (CHF), proximal atrial fibrillation (Afib), chronic lymphedema, hypertension, and chronic obstructive pulmonary disease (COPD) with chronic hypoxic respiratory failure managed with supplemental oxygen at home, requiring 3 liters to maintain his baseline oxygenation. During his hospitalization, he experienced an exacerbation of diastolic CHF. Treatments initiated included Bumetanide, corticosteroids, and combination bronchodilators (DuoNebs), among others. Imaging studies revealed no evidence of pneumonia, pulmonary embolism, or other acute processes but did show emphysematous changes consistent with his COPD. Since discharge, the patient reports feeling somewhat improved but continues to experience residual symptoms, namely a persistent cough and exertion-related dyspnea. Review of Systems - Constitutional: Denies fevers or chills. - Respiratory: Reports residual cough and shortness of breath on exertion; Denies chest pain. PE No acute distress A+Ox3 wearing O2, speaking in complete sentences. good judgment Plan - Continue home oxygen therapy as prescribed 3 liters). - Complete courses of prednisone, doxycycline, and amoxicillin/clavulanate Augmentin). - Monitor symptoms via weekly patient portal updates. - Scheduled follow-up with pulmonology next month; cardiology follow-up in the upcoming week. Patient was informed and verbally consented to the use of an ambient scribe for clinic note documentation during this visit. Discussion Notes During our discussion, I reviewed with the patient the nature of his recent hospitalization for COVID-19 and outlined the expected post-infectious course, noting that residual symptoms such as cough and dyspnea can persist for several months. I advised him on the importance of continuing his prescribed medications, specifically mentioning the completion of prednisone, doxycycline, and amoxicillin/clavulanate. The patient was informed to maintain his regular follow-ups with both his machine cloth measurer and director of retail merchandising, and to reach out via the patient portal with any significant changes in his condition. I reiterated the importance of seeking immediate medical attention should his respiratory symptoms worsen. We discussed the management of his chronic conditions, including the CHF and COPD, and I emphasized adherence to his home oxygen therapy to manage his chronic hypoxic respiratory failure. Patient Instructions - Complete the full courses of prednisone, doxycycline, and Augmentin as prescribed. - Continue using home oxygen therapy at the prescribed 3 liters per minute. - Monitor symptoms and update via the patient portal weekly. - Seek medical attention immediately if symptoms worsen, such as increased shortness of breath or chest pain. - Attend scheduled follow-ups with the machine cloth measurer and director of retail merchandising. [facility] Medical History Paroxysmal atrial fibrillation Congestive heart failure Testicular swelling Osteoarthritis of right knee Melanoma History of cardioversion Hereditary lymphedema Venous insufficiency Morbid obesity Lymphedema COPD (chronic obstructive pulmonary disease) Sensory neuropathy COVID-19 Respiratory failure with hypoxia Restrictive lung disease COPD (chronic obstructive pulmonary disease) JEFFRY on CPAP MATUTE (dyspnea on exertion) Chronic cystitis Bladder outlet obstruction Restless leg syndrome Traumatic complete tear of right rotator cuff Injury of right rotator cuff History of diverticulitis History of umbilical hernia Surgical History Hx of colonoscopy History of appendectomy History of arthroscopy of left knee Family History Father Arthritis Diabetes Mother Arthritis Kidney stones Family/Other Arthritis Sister No problems noted. Sister No problems noted. Son No problems noted. Social History Household Members: Spouse Household Members Other:: Housing: Condominium Do you presently have visiting nurse or other home services: Yes Alcohol intake: current Alcohol intake frequency: 0-2 drinks per day Alcohol type: beer Comment: refusing bed alarm Patient Tobacco Use Status: Former Tobacco user Tobacco use type: Cigarette Cigarette Packs Per Day: 1 Cigarettes Per Day: 20.0 Years Smoked: 30 years e-Cigarette/Vaping Use: Never Used Second Hand Smoke Exposure: No Substance Use Type: Marijuana Advance Directives Date on File: 05/16/20 service: No Current occupational status: retired Current occupation: [employer] Cognitive needs: No Hearing needs: No Vision needs: No Telehealth Telehealth Telehealth Platform: [facility] Location of provider rendering services: practice address Location of patient: address on file Patient Identification confirmed using: Name, : Yes Telehealth method: video Patient verbally consented to treatment: Yes Patient verbally consented to billing insurance company: Yes Patient informed of any privacy concerns related to visit: Yes Minutes spent on Phone/Video with Pt.: 15 Assessment & Plan Assessment & Plan (1) COVID: Code(s): U07.1 - COVID-19 Category: Medical (2) Acute on chronic diastolic CHF (congestive heart failure): Code(s): I50.33 - Acute on chronic diastolic (congestive) heart failure Category: Medical (3) URI, acute: Code(s): J06.9 - Acute upper respiratory infection, unspecified Category: Medical Plan . Coding Level of Care Code Tele Est Pt Level 3 (11429) Diagnoses COVID U07.1 Acute on chronic diastolic CHF (congestive heart failure) I50.33 URI, acute J06.9
--- OUTSIDE RECORDS SUMMARY | 2024-02-25 12:25 | XMS_ITS ---
Author Organization [facility] Address [address] [place] [address] Care Team Providers Care Environmental Technology Professor Name Role Phone Diego Gallagher Primary Care Provider Unav ailable Nancy Hardy [phone] Encounters Encounter Location Date Provider Diagnosis [address] [address] 10/28/2023 Nancy Hardy Plan Of Treatment Next Appt Details Provider Name:Nancy li, 03/24/2024 03:30:00 PM, [address] [place] [address], [phone], Progress Notes * Dinh BUCKLEY RDOB:[birth year] (69 yo M)Acc No.[id number]:10/28/2023 Progress Note Patient:?Dinh BUCKLEY Provider:?Nancy Hardy DPM :1955???Age:68 Y???Sex:Male Raj e:10/28/2023 Address:[address] [place], [place] [address] [place] Pcp:MARU Goldstein Subjective: * Chief Complaints: * ??? * Medical History:? Objective: * Vitals:? Assessment: Plan: * Treatment: * Images: * The named appointment provid er may or may not be the originator of this progress note, and it is not deemed complete until electronically signed by the appointment provider. Sign off status: Pending * Provider:?Nancy Hardy DPM Date:?11/2023 Generated for Katlin ramirez/Cece/Jemima on:?02/25/2024 12:25 PM EST
--- OUTSIDE RECORDS SUMMARY | 2024-02-25 12:25 | XMS_ITS ---
Author Organization [facility] Address [address] [place] [address] Care Team Providers Care Storage Garage Manager Name Role Phone Diego Gallagher Primary Care Provider Unav ailable Nancy aHrdy Unavailable [phone] Allergies No Known Allergies REASON FOR VISIT [...] 024 Encounters Encounter Location Date Provider Diagnosis [facility] [address] 01/09/2024 Nancy Mohamuda Neuropathy G62.9 ; Tinea unguium B35.1 ; Atherosclerosis of catawba artery of both lower extremities, with unspecified presence of clinical manifestation I70.203 ; Pain in right toe(s) M79.674 and Pain in left toe(s) M79.675 Assessments Encounter Date Diagnosis (ICD Code) Assessment Notes Treatment Notes Treatment Clinical Notes Section Notes 01/09/2024 Neuropathy (ICD-10 - G62.9) 01/09/2024 Tinea unguium (ICD-10 - B35.1) 01/09/2024 Atherosclerosis of catawba artery of both lower extremities, with unspecified presence of clinical manifestation (ICD-10 - I70.203) 01/09/2024 Pain in right toe(s) (ICD-10 - M79.674) 01/09/2024 Pain in left toe(s) (ICD-10 - M79.675) Plan Of Treatment Next Appt Details Follow Up: 2 Months, Reason: Provider Name:Nancy li, 03/24/2024 03:30:00 PM, [address] [place] [address], [phone], Procedure Notes * Category Sub-Category Detail [...] use of a nail nipper and/or dremel-type grinder set up operator jig, to a more viable healthy nail plate [...] to maintain effectiveness in symptomatic relief - 76140 Keratoma Treatment Parring or Cutting o f Benign Hyperkeratotic Lesion(s) (-57) More than 4 Lesions - The Benign hyperkeratotic lesions, ( 6 ) in total, locations as stated and described in exam, were pared, and/or cut utilizing a sterile 15 blade, tissue nippers, and/or power dremel instrumentation - 69555 Progress Notes * Dinh BUCKLEY RDOB:[birth year] (68 yo M)Acc No.[id number]:01/09/2024 Progress Note Patient:?Dinh BUCKLEY Provider:?Nancy Hardy DPM :1955???Age:68 Y???Sex:Male Raj e:01/09/2024 Address: [address] Pcp:MARU Goldstein Subjective: * Chief Complaints: * ???At Risk FootcarePainful N ail(s) aggrevated by shoes and causing difficulty standing/walking.Foot pain * HPI: ???At Risk footcare:?Pt States Last PCP Visit:?Date?11/18/2023 ???Foot Pain:?Nature:?burning , radiating , shooting , tingling.?Location:?B/L.?Duration:?several years.?Onset:?unknown.?Course:?worse.?Aggravated:?any pressure.?Treatments:?pain medication per PCP for Neuropathy, pt going for appt with [facility] from Ortho referral.? * [...] condition. ?Marital status: , . ?Occupation: retired: [employer]. * Medications:?TakingActemra 1 62 MG/0.9ML Solution Prefilled [...] - G62.9???Specify :Chronic problem, Worse (4)???3.?Atherosclerosis of catawba artery of both lower extremities, with unspecified [...] use of a nail nipper and/or dremel-type grinder set up operator jig, to a more viable healthy nail plate [...] to maintain effectiveness in symptomatic relief - 27058.?Keratoma Treatment:?Parring or Cutting of Benign Hyperkeratotic Lesion(s)?(-57) More than 4 Lesions - The Benign hyperkeratotic lesions, ( 6 ) in total, locations as stated and described in exam, were pared, and/or cut utilizing a sterile 15 blade, tissue nippers, and/or power dremel instrumentation - 00274.? * Procedure Codes:?07305 DEBRI DE NAIL, 6 OR MORE, Modifiers: XS 41421 TRIM SKIN LESIONS, OVER 4, Modifiers: XS , Q8 * Follow Up:?2 Months * Images: * Sign off status: Completed true * Provider:?Nancy Hadry DPM Date:? Generated for Katlin ramirez/Cece/Jemima on:?02/25/2024 12:25 PM EST History and Physical Notes * [...] for Neuropathy, pt going for appt with [facility] from Ortho referral Examination [...]
--- OUTSIDE RECORDS SUMMARY | 2024-02-25 12:26 | XMS_ITS | Patient Health Record ---
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) Active confirmed Problem Mononeuropathy of lower limb (571138709) Neuritis of right foot (G57.91) Active confirmed Problem 22640492 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 Problem Atherosclerosis of seminole artery of both lower extremities, with unspecified presence of clinical manifestation (I70.203) Active confirmed Problem 52104992873453951 Atherosclerosi s of artery of both lower extremities (I70.203) Active confirmed Problem 74497256712599611 Neuropathic ul cer of right foot with fat layer exposed (L97.512) Active confirmed Vital Signs Blood pressure diastolic 70 mm Hg 01/09/2024 Height 6ft 4in in 01/09/2024 Blood pressure systolic 132 mm Hg 01/09/2024 Weight 425 lbs 01/09/2024 BMI 51.73 kg/m2 01/09/2024 Encounters Encounter Location Date Provider Diagnosis [facility] [address] [place] [address] 04/11/2023 Nancy Perica Atherosclerosis of seminole artery of both lower extremities, with unspecified presence of clinical manifestation I70.203 ; Neuropathy G62.9 ; Tinea unguium B35.1 ; Pain in right toe(s) M79.674 and Pain in left toe(s) M79.[address] [address] 06/18/2023 Nancy Hardy Atherosclerosis of seminole artery of both lower extremities, with unspecified presence of clinical manifestation I70.203 ; Neuropathy G62.9 ; Tinea unguium B35.1 ; Pain in right toe(s) M79.674 and Pain in left toe(s) M79.[address] [address] 01/09/2024 Nancy Hardy Neuropathy G62.9 ; Tinea unguium B35.1 ; Atherosclerosis of seminole artery of both lower extremities, with unspecified presence of clinical manifestation I70.203 ; Pain in right toe(s) M79.674 and Pain in left toe(s) M79.[address] [address] 10/27/2023 Nancy Hardy Assessments Encounter Date Diagnosis (ICD Code) Assessment Notes Treatment Notes Treatment Clinical Notes Section Notes 04/11/2023 Neuropathy (ICD-10 - G62.9) 04/11/2023 Atherosclerosis of seminole artery of both lower extremities, with unspecified presence of clinical manifestation (ICD-10 - I70.203) 06/18/2023 Atherosclerosis of seminole artery of both lower extremities, with unspecified presence of clinical manifestation (ICD-10 - I70.203) 01/09/2024 Tinea unguium (ICD-10 - B35.1) 01/09/2024 Neuropathy (ICD-10 - G62.9) 01/09/2024 Atherosclerosis of seminole artery of both lower extremities, with unspecified [...] Details Provider Name:Nancy li, 03/24/2024 03:30:00 PM, [address] [place] [address], [phone], Insurance Providers Payer Name Payer Address Payer Phone Subscriber Number Group Number Insured Name Patient Relationship to Insured Coverage Start Date Coverage End Date Medicare National [facility] [employer] [address] [place] [address] [id number] Dinh Craven Self - patient is the insured [employer] [address] [place] [address] [phone] [id number] Dinh Craven Self - patient is the [...]
--- OUTSIDE RECORDS SUMMARY | 2024-02-25 12:26 | XMS_ITS ---
Author Organization [facility] Address [address] [place] [address] Care Team Providers Care Development Mechanic Name Role Phone Diego Gallagher Primary Care Provider Unav ailable Nancy Hardy [phone] REASON FOR VISIT cx 10/27 Encounters Encounter Location Date Provider Diagnosis [address] [address] 10/27/2023 Nancy Hardy Plan Of Treatment Next Appt Details Provider Name:Nancy li, 03/24/2024 03:30:00 PM, [address] [place], [address], Progress Notes * Dinh BUCKLEY RDOB:[birth year] (68 yo M)Acc No.[id number]:10/27/2023 Patient:?Dinh Buckley :1955???Age:68 Y???Sex:Male Address:[address] [place], [place] [address] [facility] [place], [address] * true * Date:? Generated for Printi ng/Faxing/eTransmitting on:?02/25/2024 12:25 PM EST
== END 2024-02-25 16:08 | disposition home or self-care (01) ==
LOC: HO.HMCC 12:15
PROVIDERS: PCP Nurse Practitioner Family; Visit Provider Nurse Practitioner Family
DX: U07.1 COVID-19 (principal); I50.33 Acute on chronic diastolic (congestive) heart failure; J06.9 Acute upper respiratory infection, unspecified

== ENCOUNTER → 2024-02-25 12:15 | Outpatient (BNVA) | payer MEDICARE, SELFPAY | PROVIDERS: PCP Nurse Practitioner Family; Visit Provider Nurse Practitioner Family | DX: U07.1 COVID-19 (principal); I50.33 Acute on chronic diastolic (congestive) heart failure; J06.9 Acute upper respiratory infection, unspecified ==

== ENCOUNTER 2024-03-03 13:26 | Outpatient (REF) | payer MEDICARE, SELFPAY ==
[2024-03-03 16:06] LABS: MANUAL DIFF FLAG NO
[2024-03-03 16:09] LABS: Basophils Percent Auto 0.2 % (0-2); Eosinophils Absolute Auto 0.1 X10*3/uL (0.0-0.4); Eosinophils Percent Auto 0.8 % (0-4); Hematocrit 45.9 % (42.0-52.0); Hemoglobin 15.3 g/dl (14.0-18.0); Imm Gran Abs Auto 0.08 X10*3/uL (0.00-0.03); Imm Gran Pct Auto 0.5 % (0.0-0.4); Lymphocytes Absolute Auto 1.6 X10*3/uL (1.2-4.9); Mean Corpuscular HGB Conc 33.3 g/dl (31.0-36.0); Mean Corpuscular Hemoglobin 33.6 pg (27.0-33.0); Mean Corpuscular Volume 100.9 fL (80.0-98.0); Mean Platelet Volume 10.5 fL (9.4-12.4); Monocytes Absolute Auto 1.5 X10*3/uL (0.1-1.2); Monocytes Percent Auto 8.3 % (2-11); Neutrophils Absolute Auto 14.2 x10*3/uL (2.0-8.3); Neutrophils Percent Auto 81.2 % (45-73); Platelet Count 289 X10*3/uL (160-400); Red Blood Count 4.55 X10*6/uL (4.60-5.80); Red Cell Distribution Width 13.2 % (11.0-16.0); White Blood Count 17.5 X10*3/uL (4.8-10.8)
[2024-03-03 16:10] LABS: Appearance Urine Clear; Color Urine Yellow; Glucose Urine UA Negative (Negative); Leukocyte Esterase Urine Negative (Negative); Nitrite Urine Negative (Negative); PH 6.5 (5.0-9.0); Urine Blood Negative (Negative); Urine Ketones Negative (Negative); Urine Protein Negative (Neg-Trace)
[2024-03-03 17:09] LABS: Alanine Aminotransferase 13 U/L (0-40); Albumin Level 3.7 g/dL (3.5-5.0); Alkaline Phosphatase 78 U/L (39-117); Anion Gap 11 (12-20); Aspartate Amino Transferase 19 U/L (5-37); Bilirubin Total 1.2 mg/dL (0.0-1.0); Blood Urea Nitrogen 18 mg/dL (9-16); Calcium 8.5 mg/dL (8.4-10.2); Carbon Dioxide 29 mmol/L (22-29); Chloride 101 mmol/L (96-108); Estimated Glomerular Filt Rate 51; Glucose Random 111 mg/dL (60-115); Potassium 4.1 mmol/L (3.3-5.1); Sodium 137 mmol/L (135-145); Total Protein 6.7 g/dL (6.5-8.0)
[2024-03-03 17:24] LABS: TSH reflex Free T4 0.72 uIU/mL (0.32-4.0)
== END 2024-03-03 13:27 | disposition home or self-care (01) ==
LOC: HO.HMGCLDS 13:26
PROVIDERS: PCP Nurse Practitioner Family; Visit Provider Nurse Practitioner Family
DX: J06.9 Acute upper respiratory infection, unspecified (principal); N39.0 Urinary tract infection, site not specified
CPT/HCPCS: 36415; 80053; 81003; 84443; 85025

== ENCOUNTER 2024-03-08 13:03 | Outpatient (AMB) | payer MEDICARE, SELFPAY ==
[2024-03-08 13:21] VITALS: BP 130/68; PULSE 90; BMI 51.8
--- NOTE | 2024-03-08 13:21 | A.OFFVIS_ITS ---
Vital Signs 03/08/24 13:21 Height 6 ft 4 in Weight 425 lb 7.874 oz BMI 51.8 BP 130/68 Blood Pressure Location Lt brachial Position Sitting Pulse 90 Pulse Source Monitor Intake Visit Reasons: 4m follow up Intake Note: 4 mth f/up Learning Operations Specialist Required: No Accompanied by: Self / Same As Patient Allergies No Known Allergies [No Known Allergies*] Allergy (Verified 02/25/24 08:13) Medication List - Last Reconciled 03/08/24 by Dejan King MD albuterol sulfate 90 mcg/actuation 2 puffs PO Q6H PRN amiodarone 200 mg PO DAILY 90 days ammonium lactate 12% 1 appl topical DAILY amoxicillin-pot clavulanate 875-125 mg 1 tab PO BID 10 days Anoro Ellipta 62.5-25 mcg/actuation (umeclidinium-vilanterol) 1 inh PO DAILY NS apixaban (Eliquis) 5 mg PO BID ascorbic acid (vitamin C) 1 g PO DAILY 90 days atorvastatin 80 mg PO BEDTIME 90 days bumetanide 2 mg (2 x 1 mg) PO DAILY docusate sodium (Colace) 100 mg PO BID doxazosin 8 mg PO BEDTIME 90 days doxycycline hyclate 100 mg PO BID duloxetine 60 mg PO DAILY finasteride 5 mg PO DAILY 90 days methenamine hippurate 1 g PO DAILY 90 days oxybutynin chloride ER 10 mg PO DAILY [Powered bariatric recliner As directed] prednisone 10 mg PO DAILY pregabalin 150 mg PO TID 90 days ropinirole 2 mg PO TID 90 days spironolactone 50 mg (2 x 25 mg) PO DAILY 90 days walker daily use (rolling sitting walker-bariatric size needed) zolpidem 5 mg PO BEDTIME PRN HPI Comments Details: Pleasant 69 gentleman here for follow-up. He has background history of morbid obesity, diastolic heart failure, COPD, peripheral edema/varicose veins and paroxysmal atrial fibrillation. 03/08/2024: He is returning for follow-up after recent admissions to [facility]. Last admission was for COVID-19 infection. He is saying that he has not been back to normal since then. He has been quite short of breath with activities. He is using oxygen more frequently. Previously was admitted with significant UTI which was related to empagliflozin. This has been dis continued at this stage. He has been using Bumex and has significant urine output with that. He is taking spironolactone 50 mg daily. Blood pressure is well controlled. He continues to be in sinus rhythm with amiodarone. On apixaban for anticoagulation. [facility] Medical History Paroxysmal atrial fibrillation Congestive heart failure Testicular swelling Osteoarthritis of right knee Melanoma History of cardioversion Hereditary lymphedema Venous insufficiency Morbid obesity Lymphedema COPD (chronic obstructive pulmonary disease) Sensory neuropathy COVID-19 Respiratory failure with hypoxia Restrictive lung disease COPD (chronic obstructive pulmonary disease) JEFFRY on CPAP MATUTE (dyspnea on exertion) Chronic cystitis Bladder outlet obstruction Restless leg syndrome Traumatic complete tear of right rotator cuff Injury of right rotator cuff History of diverticulitis History of umbilical hernia Surgical History Hx of colonoscopy History of appendectomy History of arthroscopy of left knee Family History Father Arthritis Diabetes Mother Arthritis Kidney stones Family/Other Arthritis Sister No problems noted. Sister No problems noted. Son No problems noted. Social History Household Members: Spouse Household Members Other:: 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 Cognitive needs: No Hearing needs: No Vision needs: No Review of Systems Const Denies chills, Denies fatigue, Denies fever(s), Denies frequent falls, Denies weakness, Denies weight gain and Denies weight loss ENT Denies dizziness Card Denies chest pain, Denies leg edema, Denies lightheadedness, Denies palpitations, Denies dyspnea and Denies dyspnea on exertion Resp Denies cough, Denies dyspnea and Denies dyspnea on exertion GI Denies hematochezia Musc Denies abnormal gait, Denies muscle weakness, Denies numbness, Denies radiating pain into limb and Denies tingling Neuro Denies abnormal gait, Denies dizziness, Denies frequent falls, Denies numbness, Denies tingling and Denies weakness Endo Denies fatigue and Denies palpitations Physical Exam Vital Signs: Last Vital Signs Pulse 90 03/08/24 13:21 BP 130/68 03/08/24 13:21 BMI result Body Mass Index 51.8 GENERAL APPEARANCE: Morbid obesity. NECK: no carotid bruit, no obvious jugular venous distention. SKIN: no suspicious lesions, warm and dry. HEART: no murmurs, regular rate and rhythm. LUNGS: clear to auscultation bilaterally. ABDOMEN: soft, nontender. EXTREMITIES: + edema. PERIPHERAL PULSES: equal. NEUROLOGIC: No gross deficits, AAO X 3 Office Procedures EKG Details: Sinus rhythm 90 beats per minute with first-degree AV block with SD interval 210 milliseconds, normal axis, right bundle-branch block, QTC 496 milliseconds. [id number], Complete Assessment & Plan Assessment & Plan (1) Chronic diastolic heart failure: Code(s): I50.32 - Chronic diastolic (congestive) heart failure Category: Medical (2) COPD (chronic obstructive pulmonary disease): Comment: COPD/reactive airways, sees pulmonary Code(s): J44.9 - Chronic obstructive pulmonary disease, unspecified Category: Medical (3) A-fib: Code(s): I48.91 - Unspecified atrial fibrillation Category: Medical Qualifiers: Atrial fibrillation type: persistent (not longstanding) Qualified Code(s): I48.19 - Other persistent atrial fibrillation Plan Pleasant 69 year gentleman with background history of chronic diastolic heart failure, paroxysmal atrial fibrillation and lung disease presenting for follow- up. He recently had COVID-19 infection. He was in the hospital for 3-4 days. He is saying his breathing has not improved since then. Clinically does not appear to be in volume overload. He is supposed to take 40 mg of prednisone but he is unable to tolerate that dose and is taking 10 mg of prednisone currently. He said when he was taking 40 of prednisone his breathing was better but he was getting too jittery and he just could not tolerate the prednisone. I have explained to him that if he had recent COVID infection and steroids were helping his breathing then probably trying the steroids is the best option for him. He is already on antibiotics which he is completing. Clinically he is not in volume overload. He is not anemic by blood testing. He will continue same medications for now. I have advised him to discuss further with his public information officer and he will see Dr. Andujar. In sinus rhythm with amiodarone. On Eliquis for anticoagulation. Thank you for allowing me to participate in the care of your patient. Please feel free to contact me if you have any questions. Medications: Changed From prednisone 40 mg (2 x 20 mg) PO DAILY 10 tabs 0RF To prednisone 10 mg PO DAILY Coding Level of Care Code Est Pt Level 4 (99951) Diagnoses Chronic diastolic heart failure I50.32 COPD (chronic obstructive pulmonary disease) J44.9 Persistent atrial fibrillation I48.19 Atrial fibrillation type: persistent (not longstanding) CPT Codes EKG - CPT: 78360-[id number], Complete ([id number])
== END 2024-03-08 13:56 | disposition home or self-care (01) ==
PROVIDERS: PCP Nurse Practitioner Family; Visit Provider Internal Medicine Cardiovascular Disease
DX: I50.32 Chronic diastolic (congestive) heart failure (principal); J44.9 Chronic obstructive pulmonary disease, unspecified; I48.19 Other persistent atrial fibrillation
CPT/HCPCS: 93010; 99214

== ENCOUNTER → 2024-03-08 13:03 | Outpatient (BNVA) | payer MEDICARE, SELFPAY | PROVIDERS: PCP Nurse Practitioner Family; Visit Provider Internal Medicine Cardiovascular Disease | DX: I50.32 Chronic diastolic (congestive) heart failure (principal); I48.19 Other persistent atrial fibrillation; J44.9 Chronic obstructive pulmonary disease, unspecified; E66.01 Morbid (severe) obesity due to excess calories; Z79.899 Other long term (current) drug therapy; Z87.891 Personal history of nicotine dependence; Z68.43 Body mass index [BMI] 50.0-59.9, adult | CPT/HCPCS: 93005; 99212 ==

== ENCOUNTER 2024-03-10 13:31 | Outpatient (AMB) | payer MEDICARE, SELFPAY ==
--- NOTE | 2024-03-10 13:41 | MHC.OFFVIS ---
Vital Signs 03/10/24 13:45 Height 6 ft 4 in Weight 432 lb 1.696 oz BMI 52.6 BP 140/88 H Blood Pressure Location Lt radial Position Sitting Pulse 94 Pulse Source Pulse Oximeter Pulse Oximetry (%) 94 Oxygen Delivery Method Room Air Intake Visit Reasons: COPD Intake Note: pt is here for follow up and had covid and 4 day hospital stay on 02/16, please look at chest x-ray, he is using oxygen more often now, and he is sleeping all the time, still coughing with increase in cough, little production. Needle Grader Required: No Allergies No Known Allergies [No Known Allergies*] Allergy (Verified 03/10/24 13:50) Medication List - Last Reconciled 03/10/24 by Savanna Andujar MD albuterol sulfate 90 mcg/actuation 2 puffs PO Q6H PRN amiodarone 200 mg PO DAILY 90 days ammonium lactate 12% 1 appl topical DAILY amoxicillin-pot clavulanate 875-125 mg 1 tab PO BID 10 days Anoro Ellipta 62.5-25 mcg/actuation (umeclidinium-vilanterol) 1 inh PO DAILY NS apixaban (Eliquis) 5 mg PO BID ascorbic acid (vitamin C) 1 g PO DAILY 90 days atorvastatin 80 mg PO BEDTIME 90 days bumetanide 2 mg (2 x 1 mg) PO DAILY docusate sodium (Colace) 100 mg PO BID doxazosin 8 mg PO BEDTIME 90 days doxycycline hyclate 100 mg PO BID duloxetine 60 mg PO DAILY finasteride 5 mg PO DAILY 90 days methenamine hippurate 1 g PO DAILY 90 days oxybutynin chloride ER 10 mg PO DAILY [Powered bariatric recliner As directed] prednisone 10 mg PO DAILY pregabalin 150 mg PO TID 90 days ropinirole 2 mg PO TID 90 days spironolactone 50 mg (2 x 25 mg) PO DAILY 90 days walker daily use (rolling sitting walker-bariatric size needed) zolpidem 5 mg PO BEDTIME PRN Do you need a note to return to daycare/school/sports/work: No HPI HPI COPD: Details: This 69 years old gentleman, was admitted to [facility] from 02/18 to 02/21 due to acute decompensation of the respiratory status. He was treated for an acute exacerbation of his COPD and tested positive for COVID. CTA OF THE CHEST was negative for pulmonary emboli, and there was no pneumonia, but streaky atelectasis in the basilar areas. He had a short course of prednisone, and treated with Augmentin for urinary tract infection. After discharge from the hospital he was placed on prednisone 20 mg a day for 1 week and this was for flare up of his generalized seronegative rheumatoid arthritis. He comes today for pulmonary follow-up. Complains of increased lethargy, and daytime sleepiness, even though he is using CPAP at least for 6 hours every night. He does use oxygen 24 hours a day but his requirement has increased to 3 L/minute. He is also having very frequent bouts of cough not controlled by Anoro Ellipta. Dinh has increased cough there is, mucus stuff in his throat which he can not clear up. He say is he has recurrent urinary tract infection and now he has been placed on Augmentin 875-125 1 tablet daily to prevent recurrent infection. [facility] Medical History Paroxysmal atrial fibrillation Congestive heart failure Testicular swelling Osteoarthritis of right knee Melanoma History of cardioversion Hereditary lymphedema Venous insufficiency Morbid obesity Lymphedema COPD (chronic obstructive pulmonary disease) Sensory neuropathy COVID-19 Respiratory failure with hypoxia Restrictive lung disease COPD (chronic obstructive pulmonary disease) JEFFRY on CPAP MATUTE (dyspnea on exertion) Chronic cystitis Bladder outlet obstruction Restless leg syndrome Traumatic complete tear of right rotator cuff Injury of right rotator cuff History of diverticulitis History of umbilical hernia Surgical History Hx of colonoscopy History of appendectomy History of arthroscopy of left knee Family History Father Arthritis Diabetes Mother Arthritis Kidney stones Family/Other Arthritis Sister No problems noted. Sister No problems noted. Son No problems noted. Social History Household Members: Spouse Household Members Other:: Housing: Condominium Do you presently have visiting nurse or other home services: Yes Alcohol intake: current Alcohol intake frequency: 0-2 drinks per day Alcohol type: beer Comment: refusing bed alarm Patient Tobacco Use Status: Former Tobacco user Tobacco use type: Cigarette Cigarette Packs Per Day: 1 Cigarettes Per Day: 20.0 Years Smoked: 30 years e-Cigarette/Vaping Use: Never Used Second Hand Smoke Exposure: No Substance Use Type: Marijuana Advance Directives Date on File: 05/16/20 service: No Current occupational status: retired 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 Cognitive needs: No Hearing needs: No Vision needs: No Review of Systems Const All systems reviewed & are unremarkable except as noted in HPI and below Eyes Reports no additional complaints ENT Reports no additional complaints Card Denies chest pain, Denies irregular heart rhythm and Denies leg edema Resp Reports as per HPI GI Reports no additional complaints Reports no additional complaints Musc Reports back pain Skin/Breast Reports system reviewed and no additional complaints, except as documented Neuro Reports no additional complaints Psych Reports no additional complaints Physical Exam Vital Signs: Last Vital Signs Pulse 94 03/10/24 13:45 BP 140/88 H 03/10/24 13:45 Pulse Ox 94 03/10/24 13:45 Oxygen Delivery Method Room Air 03/10/24 13:45 BMI result Body Mass Index 52.6 Const Other: wearing oxygen General: cooperative, comfortable (but SOB ) and no acute distress Orientation/consciousness: patient oriented x3 HEENT Head: Yes normal to inspection General nose exam: No nasal polyps present and No nasal discharge present Face and sinus: Yes sinuses nontender Mouth: oropharynx normal Throat: Yes posterior oropharynx normal Eyes General: appearance normal, both eyes and all related structures Neck Neck: Yes normal visual inspection, Yes no lymphadenopathy, Yes trachea midline and Yes no JVD Thyroid: Thyroid normal Chest Chest palpation & inspection: normal inspection of the chest, normal palpation of entire chest wall and no tenderness Resp Other: Percussion note not perceptible because of thick chest wall. Breath sounds are distant and especially decreased over the basilar areas. No wheezes or crepitations are heard. Effort & Inspection: normal respiratory effort and able to speak in complete sentences Auscultation: clear to auscultation bilaterally Cardio Palpation: PMI not normal (Not palpable) Rate: regular rate Rhythm: abnormal rhythm and other (Atrial fib) Heart sounds: no gallops and no murmurs GI Palpation (GI): Soft to palpation, nontender, No hepatosplenomegaly present, no masses and Other GI palpation findings present (Grossly obese and protuberant) Auscultation: normal bowel sounds Back/Spine/Pelvis Cervical Spine: normal cervical lordosis and cervical ROM normal Thoracic/Lumbar Spine: thoracic and lumbar spine normal to inspection, thoraco-lumbar ROM normal and paraspinal muscle tenderness (left trapezius/rhomboid tenderness and tautness of musculature to palpation) Skin General skin exam: no rashes or lesions noted Neuro General: patient oriented x3 and Normal light touch and pain sensation Cranial nerves: Yes CN's II-XII intact bilaterally Extrem General: Yes edema (Has chronic stasis edema /lymphedema both legs which is currently increased) and Yes venous stasis dermatitis Psych Appearance: grossly normal Mental Status: mental status grossly normal Speech and movement: Normal speech and movement present Results Reviewed Results Reviewed: Hospital admission course was reviewed. I reviewed the chest x-ray and CTA of the chest. There was no evidence of pneumonia but, streaky areas of atelectasis in the basilar areas. Assessment & Plan Assessment & Plan (1) Morbid obesity: Comment: Patient remains morbidly obese. difficult for him to lose weight. Lately he has put on more weight. This may be due to recent treatment with prednisone and increased fluid retention. Code(s): E66.01 - Morbid (severe) obesity due to excess calories Category: Medical Plan: Hopefully with better control of his congestive heart failure and peripheral edema, he will have some weight reduction again. (2) COPD (chronic obstructive pulmonary disease): Comment: COPD/reactive airways, His shortness of breath and cough is somewhat increased . He did have COVID infection about 4 weeks ago, but it did not result in any pneumonia. Code(s): J44.9 - Chronic obstructive pulmonary disease, unspecified Category: Medical Plan: Continue to use Anoro Ellipta 1 inhalation daily. I will add ipratropium-albuterol solution in the nebulizer to be used Q 6 hours while awake. (3) Respiratory failure with hypoxia: Comment: NOCTURNAL HYPOXEMIA , also hypoxemia with any physical activity. It is somewhat worse now and his O2 requirement has increased. Code(s): J96.91 - Respiratory failure, unspecified with hypoxia Category: Medical Plan: Keep on using O2 3 L/minute at night and also during the daytime. (4) Restrictive lung disease: Comment: RESTRICTION IS MAINLY BECAUSE OF HIS MORBID OBESITY. Code(s): J98.4 - Other disorders of lung Category: Medical Plan: Course he can not lose weight. Advised to do deep breathing exercises and he is given the INCENTIVE SPIROMETRY DEVICE from the office (5) JEFFRY on CPAP: Comment: KNOWN TO HAVE OBSTRUCTIVE SLEEP APNEA. USES CPAP REGULARLY AND HAS BEEN VERY COMPLIANT AND BENEFITTING. CURRENTLY USING OXYGEN 2 L/MT ALONG WITH CPAP AT NIGHTTIME. Code(s): G47.33 - Obstructive sleep apnea (adult) (pediatric); Z99.89 - Dependence on other enabling machines and devices Category: Medical Plan: CONTINUE USING THE CPAP ALONG WITH O2 2 L/MINUTE AT NIGHT (6) Thrush, oral: Comment: HE HAS THE CONGESTION OF THE OROPHARYNX, WITH HYPERTROPHY OF THE MUCOSA, AND HE HAS PATCHES OF WHITISH MUCUS IN THE WHOLE OROPHARYNX. THERE IS A HIGH SUSPICION OF ORAL CANDIDIASIS. Code(s): B37.0 - Candidal stomatitis Category: Medical Plan: ADVISED TO USE NYSTATIN TROCHES TO DISSOLVE IN OROPHARYNX B.I.D.. . FOR 1 WEEK Medications: New nystatin administer 1/2 of dose in each side of the mouth 400,000 units (4 mL) buccal TID 15 days 180 mL 1RF ORAL THRUSH Coding Level of Care Code Est Pt Level 4 (77929) Diagnoses Morbid obesity E66.01 COPD (chronic obstructive pulmonary disease) J44.9 Respiratory failure with hypoxia J96.91 Restrictive lung disease J98.4 JEFFRY on CPAP G47.33; Z99.89 Thrush, oral B37.0
[2024-03-10 13:45] VITALS: BP 140/88; PULSE 94; O2SAT 94; BMI 52.6
--- OUTSIDE RECORDS SUMMARY | 2024-03-10 15:38 | XMS_ITS ---
Author Organization [facility] Address [address] [place] [address] Care Team Providers Care Assistant Broker Name Role Phone Diego Gallagher Primary Care Provider Unav ailable Nancy Hardy Unavailable [phone] Allergies No Known Allergies REASON FOR VISIT [...] 024 Encounters Encounter Location Date Provider Diagnosis [facility] [address] 01/09/2024 Nancy Mohamuda Neuropathy G62.9 ; Tinea [...] Reason: Provider Name:Nancy li, 03/24/2024 03:30:00 PM, [address] [place] [address], [id number], Procedure Notes * Category Sub-Category Detail [...] use of a nail nipper and/or dremel-type gear grinder, to a more viable healthy nail [...] to maintain effectiveness in symptomatic relief - 06874 Keratoma Treatment Parring or Cutting o f Benign Hyperkeratotic Lesion(s) (-57) More than 4 Lesions - The Benign hyperkeratotic lesions, ( 6 ) in total, locations as stated and described in exam, were pared, and/or cut utilizing a sterile 15 blade, tissue nippers, and/or power dremel instrumentation - 66029 Progress Notes * Dinh BUCKLEY RDOB:[birth year] (68 yo M)Acc No.[id number]:01/09/2024 Progress Note Patient:?Dinh BUCKLEY Provider:?Nancy Hardy DPM :1955???Age:68 Y???Sex:Male Raj e:01/09/2024 Address: [address] [id number] Pcp:MARU Goldstein Subjective: * Chief Complaints: * ???At Risk FootcarePainful N ail(s) aggrevated by shoes and causing difficulty standing/walking.Foot pain * HPI: ???At Risk footcare:?Pt States Last PCP Visit:?Date?11/18/2023 ???Foot Pain:?Nature:?burning , radiating , shooting , tingling.?Location:?B/L.?Duration:?several years.?Onset:?unknown.?Course:?worse.?Aggravated:?any pressure.?Treatments:?pain medication per PCP for Neuropathy, pt going for appt with [facility] from Ortho referral.? * [...] condition. ?Marital status: , . 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 * Medications:?TakingActemra 1 62 MG/0.9ML Solution Prefilled [...] use of a nail nipper and/or dremel-type gear grinder, to a more viable healthy nail [...] to maintain effectiveness in symptomatic relief - 62933.?Keratoma Treatment:?Parring or Cutting of Benign Hyperkeratotic Lesion(s)?(-57) More than 4 Lesions - The Benign hyperkeratotic lesions, ( 6 ) in total, locations as stated and described in exam, were pared, and/or cut utilizing a sterile 15 blade, tissue nippers, and/or power dremel instrumentation - 63560.? * Procedure Codes:?08892 DEBRI DE NAIL, 6 OR MORE, Modifiers: XS 47719 TRIM SKIN LESIONS, OVER 4, Modifiers: XS , Q8 * Follow Up:?2 Months * Images: * Sign off status: Completed true * Provider:?Nancy Hardy DPM Date:? Generated for Katlin ramirez/Cece/Jemima on:?03/10/2024 03:38 PM EST History and Physical Notes * [...] for Neuropathy, pt going for appt with [facility] from Ortho referral Examination [...]
--- OUTSIDE RECORDS SUMMARY | 2024-03-10 15:38 | XMS_ITS | Patient Health Record ---
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) Active confirmed Problem Mononeuropathy of lower limb (758572829) Neuritis of right foot (G57.91) Active confirmed Problem 17647172 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 Problem 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, with unspecified presence of clinical manifestation (I70.203) Active confirmed Problem [id number] Atherosclerosi s of artery of both lower extremities (I70.203) Active confirmed Problem [id number] Neuropathic ul cer of right foot with fat layer exposed (L97.512) Active confirmed Vital Signs Blood pressure diastolic 70 mm Hg 01/09/2024 Height 6ft 4in in 01/09/2024 Blood pressure systolic 132 mm Hg 01/09/2024 Weight 425 lbs 01/09/2024 BMI 51.73 kg/m2 01/09/2024 Encounters Encounter Location Date Provider Diagnosis [facility] [place] [address] [place] [address] 04/11/2023 Nancy Perica 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, with unspecified presence of clinical manifestation I70.203 ; Neuropathy G62.9 ; Tinea unguium B35.1 ; Pain in right toe(s) M79.674 and Pain in left toe(s) M79.[address] [address] 06/18/2023 Nancy Hardy 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, with unspecified presence of clinical manifestation I70.203 ; Neuropathy G62.9 ; Tinea unguium B35.1 ; Pain in right toe(s) M79.674 and Pain in left toe(s) M79.[address] [address] 01/09/2024 Nancy Hardy Neuropathy G62.9 ; Tinea unguium B35.1 ; 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, with unspecified presence of clinical manifestation I70.203 ; Pain in right toe(s) M79.674 and Pain in left toe(s) M79.[address] [address] 10/27/2023 Nancy Hardy Assessments Encounter Date Diagnosis (ICD Code) Assessment Notes Treatment Notes Treatment Clinical Notes Section Notes 04/11/2023 Neuropathy (ICD-10 - G62.9) 04/11/2023 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, with unspecified presence of clinical manifestation (ICD-10 - I70.203) 06/18/2023 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, with unspecified presence of clinical manifestation (ICD-10 - I70.203) 01/09/2024 Tinea unguium (ICD-10 - B35.1) 01/09/2024 Neuropathy (ICD-10 - G62.9) 01/09/2024 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
--- OUTSIDE RECORDS SUMMARY | 2024-03-10 15:38 | XMS_ITS ---
Author Organization [facility] Address [address] [place] [address] Care Team Providers Care Hunting And Fishing Guide Name Role Phone Diego Gallagher Primary Care Provider Unav ailable Nancy Hardy [phone] REASON FOR VISIT cx 10/27 Encounters Encounter Location Date Provider Diagnosis [facility] [address] [place] [address] 10/27/2023 Nancy Hardy Plan Of Treatment Next Appt Details Provider Name:Nancy li, 03/24/2024 03:30:00 PM, [address] [place], [address], Progress Notes * Dinh BUCKLEY RDOB:[birth year] (68 yo M)Acc No.[id number]:10/27/2023 Patient:?Dinh Buckley :1955???Age:68 Y???Sex:Male Address:[address] [place], [place] [address]natalie Hays [place], [address] * true * Date:? Generated for Printi ng/Faxing/eTransmitting on:?03/10/2024 03:38 PM EST
--- OUTSIDE RECORDS SUMMARY | 2024-03-10 15:38 | XMS_ITS | Clinical Summary ---
Author Organization [facility] it Address [address] [place] [address] Care Team Providers Care Bung Sewer Name Role Phone Unavailable Primary Care Provider Unavailabl e Social History Tobacco Use Types Packs/Day Years Used Date Smoking Tobacco: Never Assessed Sex and Gender Information Value Date Recorded Sex Assigned at Not on file Gender Identity Not on file Sexual Orientation Not on file Plan of Treatment Health Maintenance Due Date Last Done Comments DTaP,Tdap,and Td Vaccines (1 - Tdap) 02/03/1976 Zoster Vaccines (1 of 2) 2007 Abdominal Aortic Aneurysm (A AA) Screen 01/20/2022 Cholesterol Screening (Lipid Panel) 01/20/2022 Colorectal Cancer Screening: Colonoscopy 01/20/2022 Depression Screening 01/20/2022 Hepatitis C Screening 01/20/2022 Social Influencers of Health Screening 01/20/2022 Falls Risk Assessment 2022 Pneumococcal Vaccine: 65+ Ye ars (1 of 1 - PCV) 2022 COVID-19 Vaccine (1 - 2023-2 5 season) 2023 Influenza Vaccine (#1) 2023 RSV Immunization Patients 60 + Years Old (1 - 1-dose 75+ series) 02/03/2032 HIB Vaccines Aged Out No longer eligi ble based on patient's age to complete this topic HPV Vaccines Aged Out No longer eligi ble based on patient's age to complete this topic Hepatitis A Vaccines Aged Out No long er eligible based on patient's age to complete this topic Hepatitis B Vaccines Aged Out No long er eligible based on patient's age to complete this topic IPV Vaccines Aged Out No longer eligi ble based on patient's age to complete this topic MMR Vaccines Aged Out No longer eligi ble based on patient's age to complete this topic Meningococcal ACWY Vaccine Aged Out N o longer eligible based on patient's age to complete this topic RSV Immunization Patients Un jacquelin 20 months Aged Out No longer eligible b ased on patient's age to complete this topic Varicella Vaccines Aged Out No longer eligible based on patient's age to complete this topic Advance Directives Documents on File Type Date Recorded 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
--- OUTSIDE RECORDS SUMMARY | 2024-03-10 15:38 | XMS_ITS ---
Author Organization [facility] Address [address] [place] [address] Care Team Providers Care Pole Sander Operator Name Role Phone Diego Gallagher Primary Care Provider Unav ailable Nancy Hardy [phone] Encounters Encounter Location Date Provider Diagnosis [address] [address] 10/28/2023 Nancy Hardy Plan Of Treatment Next Appt Details Provider Name:Nancy li, 03/24/2024 03:30:00 PM, [address] [place] [address], [phone], Progress Notes * Dinh BUCKLEY RDOB:[birth year] (69 yo M)Acc No.[id number]:10/28/2023 Progress Note Patient:?Dinh BUCKLEY Provider:?Nancy Hardy DPM :1955???Age:68 Y???Sex:Male Raj e:10/28/2023 Address:[address] [place], [place] [id number] Pcp:MARU Goldstein Subjective: * Chief Complaints: * ??? * Medical History:? Objective: * Vitals:? Assessment: Plan: * Treatment: * Images: * The named appointment provid er may or may not be the originator of this progress note, and it is not deemed complete until electronically signed by the appointment provider. Sign off status: Pending * Provider:?Nancy Hardy DPM Date:?11/2023 Generated for Katlin ramirez/eCce/Jemima on:?03/10/2024 03:38 PM EST
== END 2024-03-10 14:22 | disposition home or self-care (01) ==
PROVIDERS: PCP Nurse Practitioner Family; Visit Provider Internal Medicine
DX: E66.01 Morbid (severe) obesity due to excess calories (principal); J44.9 Chronic obstructive pulmonary disease, unspecified; J96.91 Respiratory failure, unspecified with hypoxia; J98.4 Other disorders of lung; G47.33 Obstructive sleep apnea (adult) (pediatric); Z99.89 Dependence on other enabling machines and devices; B37.0 Candidal stomatitis
CPT/HCPCS: 99214

== ENCOUNTER 2024-03-11 07:10 | Outpatient (AMB) | payer MEDICARE, SELFPAY ==
--- NOTE | 2024-03-11 07:41 | A.OFFPC_ITS ---
Intake Visit Reasons: discuss concerns Allergies No Known Allergies [No Known Allergies*] Allergy (Verified 03/11/24 07:42) Tobacco use date assessed: 12/26/23 Dental Screening Dental Screen Date: 12/26/23 HPI discuss concerns HPI Details History of Present Illness The patient is a 69-year-old male presenting with fatigue. The patient experienced a significant COVID-19 infection recently, which may have contributed to ongoing fatigue. The patient and his report that they saw a beef cattle farm manager who confirmed persistent oral candidiasis for which nystatin has been prescribed; however, fatigue persists. The patient has a history of severe chronic obstructive pulmonary disease and is on continuous supplemental oxygen. He also takes frequent naps throughout the day and has noted a disrupted sleep cycle. The patient has a long-standing history of morbid obesity and congestive heart failure, which may contribute to his overall condition. Previous attempts to initiate treatment with a GLP-1 agonist to assist with weight loss and manage his multiple co-morbidities, including afib, CHF, morbid obesity, fatigue, joint pains, severe COPD, have been unsuccessful, but the need persists. It is also noted that his multiple hospitalizations for these co-morbidities also highlight the need for this class of medication for this pt. BMI: 52.6. Furthermore, he reports severe localized pain under his left breast associated with coughing or sneezing, potentially due to trauma (significant coughing during covid). He denies accompanying fevers or chills. Review of Systems - General: Denies fevers and chills. - Respiratory: Reports severe pain benea th the left breast with coughing or sneezing. - Neurological: Reports fatigue and disr upted sleep cycle. -denies CP, dizziness, n/v. Plan - Prescribe a GLP-1 agonist to address w eight management and potentially alleviate impacts on COPD and congestive heart failure. - Recheck laboratory studies to monitor current health status and adjust treatment as necessary. - Order a chest x-ray and rib x-ray to i nvestigate severe pain under the left b reast and rule out trauma or other pathological causes. Patient was informed and verbally consented to the use of an ambient scribe for clinic note documentation during this visit. Discussion Notes I discussed with the patient and his the ongoing issue of fatigue and its potential connection to recent COVID-19 infection and other co-morbidities such as COPD and congestive heart failure. I explained the need for a GLP-1 agonist for weight management, emphasizing how it could substantially improve his breathing and overall health by addressing obesity and related metabolic concerns. Laboratory tests will be repeated, and imaging studies are warranted to explore pain originating beneath the left breast/fatigue. I addressed his concerns regarding oral candidiasis, noting that while it is being treated with nystatin, the fatigue may have multiple underlying causes. The patient acknowledges and agrees with the outlined management plan. Patient Instructions - Take prescribed medication, including nystatin and any new prescriptions, as directed. - Follow up with laboratory tests and sc heduled chest and rib x-rays. - Monitor symptoms and report any new or worsening pain, especially if associated with fever or chills. - Incorporate healthy lifestyle changes to assist with weight management as discussed. [facility] Medical History Paroxysmal atrial fibrillation Congestive heart failure Testicular swelling Osteoarthritis of right knee Melanoma History of cardioversion Hereditary lymphedema Venous insufficiency Morbid obesity Lymphedema COPD (chronic obstructive pulmonary disease) Sensory neuropathy COVID-19 Respiratory failure with hypoxia Restrictive lung disease COPD (chronic obstructive pulmonary disease) JEFFRY on CPAP MATUTE (dyspnea on exertion) Chronic cystitis Bladder outlet obstruction Restless leg syndrome Traumatic complete tear of right rotator cuff Injury of right rotator cuff History of diverticulitis History of umbilical hernia Surgical History Hx of colonoscopy History of appendectomy History of arthroscopy of left knee Family History Father Arthritis Diabetes Mother Arthritis Kidney stones Family/Other Arthritis Sister No problems noted. Sister No problems noted. Son No problems noted. Social History Household Members: Spouse Household Members Other:: Housing: Condominium Do you presently have visiting nurse or other home services: Yes Alcohol intake: current Alcohol intake frequency: 0-2 drinks per day Alcohol type: beer Comment: refusing bed alarm Patient Tobacco Use Status: Former Tobacco user Tobacco use type: Cigarette Cigarette Packs Per Day: 1 Cigarettes Per Day: 20.0 Years Smoked: 30 years e-Cigarette/Vaping Use: Never Used Second Hand Smoke Exposure: No Substance Use Type: Marijuana Advance Directives Date on File: 05/16/20 service: No Current occupational status: retired 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 Marc Victoria, Karen Nguyen, Tristan Dominguez and colleagues, with an educational juan from [employer]. Physical exam (Primary Care) Tobacco/Smoking Status: Tobacco use Status Tobacco use date assessed 12/26/23 03/11/24 07:47 Patient Tobacco Use Status Former Tobacco user 03/11/24 07:47 Tobacco use type Cigarette 03/11/24 07:47 e-Cigarette/Vaping Use Never Used 03/11/24 07:47 Thrive Assessment: Date of Thrive Assessment Date Thrive assessed 09/16/23 03/11/24 07:47 Telehealth Telehealth Telehealth Platform: [employer] Location of provider rendering services: practice address Location of patient: address on file Patient Identification confirmed using: Name, : Yes Telehealth method: video Patient verbally consented to treatment: Yes Patient verbally consented to billing insurance company: Yes Patient informed of any privacy concerns related to visit: Yes Minutes spent on Phone/Video with Pt.: 15 Coding Level of Care Code Tele Est Pt Level 3 (50906) Diagnoses Rib pain on left side R07.81 Fatigue R53.83 Acute on chronic diastolic CHF (congestive heart failure) I50.33 Chronic diastolic heart failure I50.32 COVID U07.1 New onset a-fib I48.91 Morbid obesity E66.01 Assessment & Plan Assessment & Plan (1) Rib pain on left side: Code(s): R07.81 - Pleurodynia Category: Medical (2) Fatigue: Code(s): R53.83 - Other fatigue Category: Medical (3) Acute on chronic diastolic CHF (congestive heart failure): Code(s): I50.33 - Acute on chronic diastolic (congestive) heart failure Category: Medical (4) Chronic diastolic heart failure: Code(s): I50.32 - Chronic diastolic (congestive) heart failure Category: Medical (5) COVID: Code(s): U07.1 - COVID-19 Category: Medical (6) New onset a-fib: Code(s): I48.91 - Unspecified atrial fibrillation Category: Medical (7) Morbid obesity: Comment: Patient remains morbidly obese. difficult for him to lose weight. Lately he has put on more weight. This may be due to recent treatment with prednisone and increased fluid retention. Code(s): E66.01 - Morbid (severe) obesity due to excess calories Category: Medical Plan . Orders: Orders XR ribs LT 2V Today R07.81 - Pleurodynia XR chest 2V Today R07.81 - Pleurodynia, R53.83 - Other fatigue Comprehensive Met. Panel Today R07.81 - Pleurodynia, R53.83 - Other fatigue UA CC w/rflx Micro + Cult Today R07.81 - Pleurodynia, R53.83 - Other fatigue Tick-borne Disease Molecular Today R07.81 - Pleurodynia, R53.83 - Other fatigue B Type Natriuretic Peptide Today R53.83 - Other fatigue Complete Blood Count Auto Diff Today R07.81 - Pleurodynia, R53.83 - Other fatigue TSH reflex Free T4 Today R07.81 - Pleurodynia, R53.83 - Other fatigue Lyme IgG/IgM w/reflex to WB Today R07.81 - Pleurodynia, R53.83 - Other fatigue Medications: New tirzepatide (weight loss) (Zepbound) for 4 weeks 2.5 mg (0.5 mL) subcut QWEEK 2 mL 0RF
== END 2024-03-11 08:33 | disposition home or self-care (01) ==
LOC: HO.HMCC 07:10
PROVIDERS: PCP Nurse Practitioner Family; Visit Provider Nurse Practitioner Family
DX: I50.33 Acute on chronic diastolic (congestive) heart failure (principal); I50.32 Chronic diastolic (congestive) heart failure; I48.91 Unspecified atrial fibrillation; E66.01 Morbid (severe) obesity due to excess calories; R07.81 Pleurodynia; R53.83 Other fatigue; U07.1 COVID-19

== ENCOUNTER → 2024-03-11 07:10 | Outpatient (BNVA) | payer MEDICARE, SELFPAY | PROVIDERS: PCP Nurse Practitioner Family; Visit Provider Nurse Practitioner Family ==

== ENCOUNTER 2024-03-11 11:35 | Outpatient (REF) | payer MEDICARE, SELFPAY ==
--- NOTE | ~2024-03-11 | XR_ITS ---
EXAMINATION: XR CHEST CLINICAL INFORMATION: R53.83 - Other fatigue COMPARISON: Chest x-ray February 19, 2024 TECHNIQUE: 2 views of the chest were obtained. FINDINGS: The lungs are hyperinflated but clear acute process. The heart size and pulmonary vascularity is normal. No gross bony abnormality seen. XR/XR chest 2V IMPRESSION: Unremarkable chest examination. Electronically signed by: Bradford Brown MD 03/11/2024 12:23 PM EST
--- NOTE | ~2024-03-11 | XR_ITS ---
EXAMINATION: XR RIBS, LEFT CLINICAL INFORMATION: R07.81 - Pleurodynia COMPARISON: None available. TECHNIQUE: 3 views of the left ribs were obtained. FINDINGS: Lungs are clear. No consolidation, pneumothorax, or pleural effusion. The cardiomediastinal silhouette and pulmonary vasculature are normal. Osseous structures are unremarkable. Ribs are intact. No fractures are identified. XR/XR ribs LT 2V IMPRESSION: Multiple of left ribs reveal no visible acute fracture or bony abnormality. Electronically signed by: Bradford Brown MD 03/11/2024 12:28 PM EST
[2024-03-11 13:45] LABS: Basophils Absolute Auto 0.1 X10*3/uL (0.0-0.2); Basophils Percent Auto 0.3 % (0-2); Eosinophils Absolute Auto 0.1 X10*3/uL (0.0-0.4); Eosinophils Percent Auto 0.5 % (0-4); Hematocrit 40.7 % (42.0-52.0); Hemoglobin 13.7 g/dl (14.0-18.0); Imm Gran Abs Auto 0.15 X10*3/uL (0.00-0.03); Imm Gran Pct Auto 0.9 % (0.0-0.4); Lymphocytes Absolute Auto 1.5 X10*3/uL (1.2-4.9); Lymphocytes Percent Auto 8.7 % (20-40); MANUAL DIFF FLAG SCAN; Mean Corpuscular HGB Conc 33.7 g/dl (31.0-36.0); Mean Corpuscular Hemoglobin 33.3 pg (27.0-33.0); Mean Platelet Volume 10.2 fL (9.4-12.4); Monocytes Absolute Auto 1.8 X10*3/uL (0.1-1.2); Monocytes Percent Auto 10.2 % (2-11); Neutrophils Absolute Auto 13.9 x10*3/uL (2.0-8.3); Neutrophils Percent Auto 79.4 % (45-73); Platelet Count 225 X10*3/uL (160-400); Red Blood Count 4.11 X10*6/uL (4.60-5.80); Red Cell Distribution Width 13.2 % (11.0-16.0); SCAN SMEAR FLAG 1; White Blood Count 17.5 X10*3/uL (4.8-10.8)
[2024-03-11 13:53] LABS: Appearance Urine Clear; Color Urine Yellow; Glucose Urine UA Negative (Negative); Leukocyte Esterase Urine Negative (Negative); Nitrite Urine Negative (Negative); Urine Blood Negative (Negative); Urine Ketones Negative (Negative); Urine Protein Negative (Neg-Trace)
[2024-03-11 14:08] LABS: SLIDE REVIEW VERIFIED
[2024-03-11 14:13] LABS: B Type Natriuretic Peptide 18 pg/mL (<100)
[2024-03-11 14:18] LABS: Alanine Aminotransferase 11 U/L (0-40); Albumin Level 3.3 g/dL (3.5-5.0); Alkaline Phosphatase 81 U/L (39-117); Anion Gap 11 (12-20); Aspartate Amino Transferase 22 U/L (5-37); Bilirubin Total 1.2 mg/dL (0.0-1.0); Blood Urea Nitrogen 17 mg/dL (9-16); Calcium 9.3 mg/dL (8.4-10.2); Carbon Dioxide 28 mmol/L (22-29); Chloride 99 mmol/L (96-108); Estimated Glomerular Filt Rate > 60; Glucose Random 128 mg/dL (60-115); Potassium 4.4 mmol/L (3.3-5.1); Sodium 134 mmol/L (135-145); TSH reflex Free T4 1.03 uIU/mL (0.32-4.0); Total Protein 6.8 g/dL (6.5-8.0)
[2024-03-12 11:13] LABS: Lyme Abs Screen <0.90 index
[2024-03-13 17:18] LABS: A. Phagocytphilium DNA,RT-PCR NOT DETECTED (NOT DETECTED); Babesia Microti DNA, RT-PCR NOT DETECTED (NOT DETECTED); Borrelia Miyamotoi,DNA RT-PCR NOT DETECTED (NOT DETECTED); E.Chaffeensis DNA RT-PCR NOT DETECTED (NOT DETECTED); Lyme(Borrelia ssp)DNA RT-PCR NOT DETECTED (NOT DETECTED)
== END 2024-03-11 11:36 | disposition home or self-care (01) ==
LOC: HO.HMGCX 11:35
PROVIDERS: PCP Nurse Practitioner Family; Visit Provider Nurse Practitioner Family
DX: Z13.89 Encounter for screening for other disorder (principal)
CPT/HCPCS: 36415; 71046; 71100; 80053; 81003; 83880; 84443; 85025; 86617; 86618; 87468; 87469; 87478; 87484; 87798

== ENCOUNTER → 2024-03-11 12:01 | Outpatient (BNV) | payer MEDICARE, SELFPAY | PROVIDERS: PCP Nurse Practitioner Family; Visit Provider Radiology Diagnostic Radiology | DX: R53.83 Other fatigue (principal); R07.81 Pleurodynia | CPT/HCPCS: 71046; 71100 ==

== ENCOUNTER → 2024-03-13 15:06 | Outpatient (BNV) | payer MEDICARE, SELFPAY | PROVIDERS: Emergency Provider Emergency Medicine; PCP Nurse Practitioner Family; Visit Provider Radiology Diagnostic Radiology | DX: R06.02 Shortness of breath (principal) | CPT/HCPCS: 71045 ==

== ENCOUNTER → 2024-03-13 15:11 | Outpatient (BNV) | payer MEDICARE, SELFPAY | PROVIDERS: Admitting Provider Student in an Organized Health Care Education/Training Program; Emergency Provider Emergency Medicine; PCP Nurse Practitioner Family; Visit Provider Internal Medicine | DX: R94.31 Abnormal electrocardiogram [ECG] [EKG] (principal) | CPT/HCPCS: 93010 ==

== ENCOUNTER 2024-03-13 18:27 | Outpatient (BNV) | payer MEDICARE, SELFPAY | END 2024-03-15 13:27 | PROVIDERS: Admitting Provider Student in an Organized Health Care Education/Training Program; Emergency Provider Emergency Medicine; PCP Nurse Practitioner Family; Visit Provider Internal Medicine | DX: R94.31 Abnormal electrocardiogram [ECG] [EKG] (principal) | CPT/HCPCS: 93010 ==

== ENCOUNTER 2024-03-13 18:27 | Outpatient (BNV) | payer MEDICARE, SELFPAY | END 2024-03-18 06:00 | PROVIDERS: Admitting Provider Student in an Organized Health Care Education/Training Program; Emergency Provider Emergency Medicine; PCP Nurse Practitioner Family; Visit Provider Radiology Diagnostic Radiology | DX: U07.1 COVID-19 (principal) | CPT/HCPCS: 71045 ==

== ENCOUNTER → 2024-03-13 18:27 | Outpatient (BNV) | payer MEDICARE, SELFPAY | PROVIDERS: Admitting Provider Student in an Organized Health Care Education/Training Program; Emergency Provider Emergency Medicine; PCP Nurse Practitioner Family; Visit Provider Student in an Organized Health Care Education/Training Program | DX: U07.1 COVID-19 (principal); J96.00 Acute respiratory failure, unspecified whether with hypoxia or hypercapnia; I50.33 Acute on chronic diastolic (congestive) heart failure; J44.9 Chronic obstructive pulmonary disease, unspecified | CPT/HCPCS: 99232; 99233; 99239; G0180 ==

== ENCOUNTER → 2024-03-13 18:27 | Outpatient (BNV) | payer MEDICARE, SELFPAY | PROVIDERS: Admitting Provider Student in an Organized Health Care Education/Training Program; Emergency Provider Emergency Medicine; PCP Nurse Practitioner Family; Visit Provider Internal Medicine | DX: U07.1 COVID-19 (principal); J96.00 Acute respiratory failure, unspecified whether with hypoxia or hypercapnia; I50.33 Acute on chronic diastolic (congestive) heart failure; J44.9 Chronic obstructive pulmonary disease, unspecified | CPT/HCPCS: 99223 ==

== ENCOUNTER 2024-03-23 06:55 | Outpatient (AMB) | payer MEDICARE, SELFPAY ==
--- NOTE | 2024-03-23 07:26 | A.OFFVIS_ITS ---
Intake Visit Reasons: tcm Allergies No Known Allergies [No Known Allergies*] Allergy (Verified 03/13/24 15:09) [facility] HPI tcm: Details: History of Present Illness The patient is a 69-year-old male presenting with follow-up care after discharge from the hospital on 03/18/2024 for acute respiratory failure secondary to COVID-19. He continues to experience residual symptoms and is currently managing acute on chronic diastolic congestive heart failure. In addition, he has a history of chronic obstructive pulmonary disease (COPD) and is receiving ongoing treatment with dexamethasone. The patient's respiratory condition requires the use of supplemental oxygen 09/09 and nocturnal CPAP therapy. During the consultation, he reported ineffective management of insomnia with 5 mg of zolpidem. Previous use of albuterol during concurrent steroid therapy resulted in severe tremors, attributed to the combination's potentiation. He is actively seeking insurance coverage for a GLP-1 agonist to aid in weight loss and is scheduled to attend a clinic in [place] for this purpose. Pt is getting home PT, doing well. Review of Systems - Respiratory: Denies increased shortness of breath. - Cardiovascular: Denies chest pain. - Gastrointestinal: Denies nausea. - Constitutional: Denies fever, chills. Plan - Increase zolpidem dosage to 10 mg for improved sleep management. - Continue steroid therapy, monitoring for exacerbation of tremors when combined with albuterol. - Encouragement to pursue weight loss treatment with GLP-1 agonist, pending insurance approval and follow-up at the [place] clinic. - Ensure continued follow-up with traffic safety administrator for COPD and CHF management. Discussion Notes I discussed with the patient the current management plan, including the rationale for increasing zolpidem to 10 mg to enhance sleep quality. We reviewed potential side effects of albuterol and steroid combination, specifically addressing tremors and palpitations, advising continued caution and monitoring. The importance of initiating the GLP-1 agonist therapy for necessary weight loss was emphasized, and assistance in navigating insurance coverage was offered. I recommended continuous monitoring of his respiratory status and reinforced the need for pulmonology follow-up/cardiology follow up. The patient is advised to report any exacerbation of symptoms promptly. Patient Instructions - Take 10 mg zolpidem at bedtime for sleep. - Use albuterol as needed, but monitor for tremors and rapid heartbeat. - Follow up with traffic safety administrator/ophthalmologist as scheduled. - Attend the [place] clinic for weight loss management. - Contact the clinic if experiencing any new or worsening symptoms such as increased shortness of breath or chest pain. - Continue using oxygen and CPAP as directed. [facility] Medical History (Updated 03/23/24 @ 07:28 by Diego Augustine [facility]) COPD (chronic obstructive pulmonary disease) Acute respiratory failure due to COVID-19 Sepsis Community acquired pneumonia Viral sepsis Fatigue Acute on chronic diastolic CHF (congestive heart failure) COVID Morbid obesity Paroxysmal atrial fibrillation Congestive heart failure Testicular swelling Osteoarthritis of right knee Melanoma History of cardioversion Hereditary lymphedema Venous insufficiency Morbid obesity Lymphedema COPD (chronic obstructive pulmonary disease) Sensory neuropathy COVID-19 Respiratory failure with hypoxia Restrictive lung disease JEFFRY on CPAP MATUTE (dyspnea on exertion) Chronic cystitis Bladder outlet obstruction Restless leg syndrome Traumatic complete tear of right rotator cuff Injury of right rotator cuff History of diverticulitis History of umbilical hernia Surgical History (Updated 03/19/24 @ 00:02 by Ty Morrow) Hx of colonoscopy History of appendectomy History of arthroscopy of left knee Family History Father Arthritis Diabetes Mother Arthritis Kidney stones Family/Other Arthritis Sister No problems noted. Sister No problems noted. Son No problems noted. Social History Household Members: Spouse Household Members Other:: [facility] Do you presently have visiting nurse or other home services: Yes Unable to assess alcohol history related to: Unknown Alcohol intake: current Alcohol intake frequency: 0-2 drinks per day Alcohol type: beer Comment: refusing bed alarm Patient Tobacco Use Status: Former Tobacco user Tobacco use type: Cigarette Cigarette Packs Per Day: 1 Cigarettes Per Day: 20.0 Years Smoked: 30 years e-Cigarette/Vaping Use: Never Used Second Hand Smoke Exposure: No Substance Use Type: Marijuana Advance Directives Date on File: 05/16/20 service: No Current occupational status: retired 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 Cognitive needs: No Hearing needs: No Vision needs: No Telehealth Telehealth Telehealth Platform[facility] Location of provider rendering services: practice address Location of patient: address on file Patient Identification confirmed using: Name, : Yes Telehealth method: video Patient verbally consented to treatment: Yes Patient verbally consented to billing insurance company: Yes Patient informed of any privacy concerns related to visit: Yes Minutes spent on Phone/Video with Pt.: 15 Assessment & Plan Assessment & Plan (1) Chronic diastolic heart failure: Code(s): I50.32 - Chronic diastolic (congestive) heart failure Category: Medical (2) Post-COVID syndrome: Code(s): U09.9 - Post COVID-19 condition, unspecified Category: Medical (3) Respiratory failure with hypoxia: Comment: NOCTURNAL HYPOXEMIA , also hypoxemia with any physical activity. It is somewhat worse now and his O2 requirement has increased. Code(s): J96.91 - Respiratory failure, unspecified with hypoxia Category: Medical (4) COPD (chronic obstructive pulmonary disease): Comment: Code(s): J44.9 - Chronic obstructive pulmonary disease, unspecified Category: Medical (5) Insomnia: Code(s): G47.00 - Insomnia, unspecified Category: Medical Plan . Medications: Changed From zolpidem 5 mg PO BEDTIME PRN 30 tabs 1RF sleep To zolpidem 10 mg PO BEDTIME PRN 30 tabs 1RF sleep Refilled nystatin administer 1/2 of dose in each side of the mouth 400,000 units (4 mL) buccal TID 180 mL 1RF ORAL THRUSH 15 days Coding Level of Care Code Tele Est Pt Level 3 (75842) Diagnoses Chronic diastolic heart failure I50.32 Post-COVID syndrome U09.9 Respiratory failure with hypoxia J96.91 COPD (chronic obstructive pulmonary disease) J44.9 Insomnia G47.00
== END 2024-03-23 09:36 | disposition home or self-care (01) ==
PROVIDERS: PCP Nurse Practitioner Family; Visit Provider Nurse Practitioner Family
DX: I50.32 Chronic diastolic (congestive) heart failure (principal); U09.9 Post COVID-19 condition, unspecified; J96.91 Respiratory failure, unspecified with hypoxia; J44.9 Chronic obstructive pulmonary disease, unspecified; G47.00 Insomnia, unspecified

== ENCOUNTER → 2024-03-23 06:55 | Outpatient (BNVA) | payer MEDICARE, SELFPAY | PROVIDERS: PCP Nurse Practitioner Family; Visit Provider Nurse Practitioner Family ==

== ENCOUNTER 2024-03-24 10:55 | Inpatient (IN) | payer MEDICARE, SELFPAY ==
[2024-03-24] VITALS (7 sets, daily range): BP systolic 111–157; BP diastolic 54–62; PULSE 82–111; RESP 16–18; TEMP 36.4–39.2; O2SAT 92–98; BMI 51.1
--- NOTE | ~2024-03-24 | CT_ITS ---
CLINICAL HISTORY: left renal hematoma on CT chest, partial view CT abdomen and pelvis without contrast Comparison: CT of the abdomen and pelvis from 10/01/2020 Findings: Mild bibasilar atelectasis and/or pneumonitis. Small left pleural effusion. Small pericardial effusion with borderline cardiomegaly. Left perinephric hematoma is new when compared to 2020. No interim or outside facility imaging available. This new left perinephric hematoma predominately extends inferiorly measuring 13.3 x 7.3 x 12.1 cm and displaced in the left kidney anteriorly. Filtered contrast could obscure small stones in both renal collecting systems. No hydronephrosis at this time. Increased cholelithiasis by CT relative to 2020 No interim outside facility imaging available at this time. [id number] volume loss of the pancreas. Splenomegaly with spleen measuring 15 cm. Imaged liver is unremarkable for noncontrast imaging motion artifacts. No small bowel obstruction. Moderate to severe stool burden. The appendix is not definitively seen. Portions of the abdomen excluded from the field of view. Filtered contrast noted in the urinary bladder. Prostate gland measures 4 cm transverse. Small fat containing inguinal hernias. Degenerative changes of the hips and spine including marked lower lumbar facet arthropathy. Moderate to severe spinal stenosis at L3-L4 and L4-L5 by CT. Partial fusion of the SI joints. IMPRESSION: 1. Large left-sided perinephric hematoma measures 13.3 cm. Recommend attention on follow-up to evaluate for potential underlying renal mass. 2. No hydronephrosis. This document has been electronically signed by: Filemon Navarro MD on 03/24/2024 19:50:35
--- NOTE | ~2024-03-24 | XR_ITS ---
EXAMINATION: XR CHEST CLINICAL INFORMATION: Hypoxia COMPARISON: March 18, 2024 TECHNIQUE: 2 views of the chest were obtained. FINDINGS: Limited by patient's body habitus. Prominence of the interstitial lung markings. Poor inspiration. No consolidation or pneumothorax. Questionable small pleural effusions. Cardiomediastinal silhouette is unchanged. Multilevel thoracic spondylosis. XR/XR chest 2V IMPRESSION: Mild interstitial lung edema and questionable bilateral small pleural effusions.. Electronically signed by: Jame Thompson MD 03/24/2024 11:59 AM FRANK
--- NOTE | ~2024-03-24 | CT_ITS ---
EXAMINATION: CT CHEST WITH CONTRAST CLINICAL INFORMATION: Rule out pneumonia. COMPARISON: CT angiogram chest 02/19/2024. Chest x-ray 03/24/2024, 03/18/2024. Renal ultrasound 11/03/2023. TECHNIQUE: Multidetector volumetric CT imaging of the chest was obtained after the administration of 50 mL of Omnipaque 350 intravenous contrast without immediate adverse reactions. Axial MIP volume rendering provided. Sagittal and coronal reformatted images were obtained. This CT examination was performed using dose optimization techniques as appropriate, variously including the following: *Automated exposure control *Adjustment of mA and/or kV according to patient size (this includes techniques or standardized protocols for targeted exams where dose is matched to indication/reason for exam; i.e. extremities or head) *Use of iterative reconstruction technique FINDINGS: LUNGS: -Mild to moderate changes of centrilobular emphysema. -Diffuse peribronchial thickening throughout both lungs, most significant in the posterior lower lobes left greater than right, with foci of endobronchial mucoid plugging. -There are subsegmental consolidative opacities in the left greater than right lung bases. -There are no effusions. -There is no pneumothorax. -Mild parenchymal mosaic attenuation is system with air trapping. -Central airways are normal. Saber-sheath trachea. MEDIASTINUM: -Normal thyroid. -No adenopathy or mass. -Aorta is normal in caliber and contour. -Main pulmonary artery is enlarged, suggesting pulmonary arterial hypertension. -Top normal heart size. No pericardial effusion. -Small to moderate-sized type I hiatus hernia. -There is prominent epicardial fat. PLEURA: There is no pleural effusion. No pleural mass or thickening. AXILLA: No lymphadenopathy. UPPER ABDOMEN: -There is a partially imaged fluid collection in the subcapsular region of the left kidney, involving the upper and midpole, with extravasation of fluid into the pararenal space, and tracking along a robust fashion. This is a partially imaged but consistent with a subcapsular hematoma of the left kidney with associated subcutaneous hemorrhage into the pararenal space. There is mild flattening of the left renal parenchyma, incompletely imaged. (On 11/03/2023, kidneys appeared normal by ultrasound). -Right kidney is partially imaged but normal. -There are gallstones within an otherwise normal-appearing gallbladder. -There is moderate fatty atrophy of the pancreas. -Liver appears grossly normal, as does the spleen. Imaged bowel structures appear normal. OSSEOUS STRUCTURES: No suspicious lytic or blastic bone lesions. Mild spinal degenerative changes. CT/CT chest w IV con IMPRESSION: 1. Moderate centrilobular emphysema with evidence of pulmonary arterial hypertension. 2. Peribronchial thickening throughout both lungs, most significant bilateral lower lobes with endobronchial mucoid plugging, and subsegmental consolidative opacities left greater than right costophrenic sulci. Pneumonia is suspected. There are no effusions. 3. Borderline cardiomegaly. 4. Partially imaged, subcapsular left renal hematoma with extension into the left pararenal space. Associated mass effect upon, and anterior displacement of the left kidney. Of note, on 11/03/2023, kidneys appeared normal by ultrasound. 5. Small to moderate size type I hiatus hernia. 6. Cholelithiasis. 7. Additional ancillary findings as discussed. Electronically signed by: Wyatt Koch MD 03/24/2024 04:20 PM [facility]ANK
--- NOTE | 2024-03-24 11:12 | ECG_ITS ---
Test Reason : fall Blood Pressure : */* mmHG Vent. Rate : 102 BPM Atrial Rate : 102 BPM P-R Int : 210 ms QRS Dur : 138 ms QT Int : 362 ms P-R-T Axes : 32 -34 11 degrees QTcB Int : 471 ms Sinus tachycardia with 1st degree A-V block Left axis deviation Right bundle branch block Inferior infarct , age undetermined Abnormal ECG When compared with ECG of 15-Mar-2024 13:27, QRS axis Shifted left Referred By: Generic ED Physician Electronically Signed By: Dejan King
[2024-03-24 11:48] LABS: Appearance Urine Clear; Color Urine Yellow; Glucose Urine UA Negative (Negative); Leukocyte Esterase Urine Negative (Negative); Nitrite Urine Negative (Negative); PH 6.5 (5.0-9.0); Urine Blood Negative (Negative); Urine Ketones Negative (Negative); Urine Protein Negative (Neg-Trace)
--- NOTE | 2024-03-24 11:50 | PC.NURSE ---
Pt to Xray.
--- NOTE | 2024-03-24 12:29 | PC.NURSE ---
Labs delayed secondary to poor peripheral access. #18 placed via US to [facility]. Labs drawn/sent.
[2024-03-24 12:32] LABS: Basophils Absolute Auto 0.1 X10*3/uL (0.0-0.2); Basophils Percent Auto 0.2 % (0-2); Eosinophils Percent Auto 0.1 % (0-4); Hematocrit 40.3 % (42.0-52.0); Hemoglobin 13.8 g/dl (14.0-18.0); Imm Gran Abs Auto 0.41 X10*3/uL (0.00-0.03); Imm Gran Pct Auto 1.5 % (0.0-0.4); Lymphocytes Absolute Auto 1.6 X10*3/uL (1.2-4.9); Lymphocytes Percent Auto 5.8 % (20-40); MANUAL DIFF FLAG SCAN; Mean Corpuscular HGB Conc 34.2 g/dl (31.0-36.0); Mean Corpuscular Hemoglobin 33.1 pg (27.0-33.0); Mean Corpuscular Volume 96.6 fL (80.0-98.0); Mean Platelet Volume 9.7 fL (9.4-12.4); Monocytes Absolute Auto 1.6 X10*3/uL (0.1-1.2); Neutrophils Absolute Auto 23.4 x10*3/uL (2.0-8.3); Neutrophils Percent Auto 86.4 % (45-73); Platelet Count 435 X10*3/uL (160-400); Red Blood Count 4.17 X10*6/uL (4.60-5.80); Red Cell Distribution Width 13.5 % (11.0-16.0); SCAN SMEAR FLAG 1; White Blood Count 27.1 X10*3/uL (4.8-10.8)
[2024-03-24 12:39] LABS: INTERNATIONAL NORM RATIO 1.8 (0.9-1.1); Prothrombin Time 20.7 SEC (10.9-12.4)
[2024-03-24 12:51] LABS: Alanine Aminotransferase 37 U/L (0-40); Albumin Level 3.1 g/dL (3.5-5.0); Alkaline Phosphatase 68 U/L (39-117); Anion Gap 12 (12-20); Aspartate Amino Transferase 28 U/L (5-37); Bilirubin Direct 0.7 mg/dL (0.0-0.5); Bilirubin Total 1.3 mg/dL (0.0-1.0); Blood Urea Nitrogen 20 mg/dL (9-16); Calcium 8.5 mg/dL (8.4-10.2); Carbon Dioxide 28 mmol/L (22-29); Chloride 96 mmol/L (96-108); Creatinine Clr Calc Pharmacy 107.4; Estimated Glomerular Filt Rate 60; Glucose Random 120 mg/dL (60-115); Lactic Acid 1.1 mmol/L (0.5-2.0); Lipase 7 U/L (8-78); Magnesium 1.7 mg/dL (1.6-2.6); Potassium 3.6 mmol/L (3.3-5.1); Sodium 132 mmol/L (135-145); Total Protein 6.9 g/dL (6.5-8.0)
[2024-03-24 12:53] LABS: SLIDE REVIEW VERIFIED
[2024-03-24 13:10] LABS: Influenza A PCR NEGATIVE (Negative); Influenza B PCR NEGATIVE (Negative); Resp Syncy Virus RNA Qual PCR NEGATIVE (Negative); SARS COV2 PCR INHOUSE NEGATIVE (Negative)
--- OUTSIDE RECORDS SUMMARY | 2024-03-24 13:13 | XMS_ITS | Clinical Summary ---
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
[2024-03-24] MEDS: Acetaminophen 325 MG TABLET 975 MG PO ×2 (13:44→21:48)
--- NOTE | 2024-03-24 13:46 | ED_ITS ---
HPI - General Adult General Chief complaint: General Medical Stated complaint: FALL PER EMS Time Seen by Provider: 03/24/24 13:29 Source: patient Limitations: no limitations History of Present Illness ED Provider: Stacie Bautista PA-C HPI narrative: 69-year-old male with a history of morbid obesity, COPD on 3 L nasal cannula at baseline, hypertension, hyperlipidemia, diastolic heart failure with preserved ejection fraction, AFib on apixaban, arthritis, presents after collapse at home. Patient states he has not been feeling well over the past few days. Patient developed an episode of ?full body shaking?, that he could not control. His was there to assist him, and she lowered him to the floor. There was no head strike. Patient denies chest pain, shortness of breath, abdominal pain, nausea, vomiting, diarrhea or fever. Patient states he was recently admitted to the hospital March 13 through the with COPD exacerbation in the setting of COVID infection. Related Data Home Medications ?Medication ?Instructions ?Recorded ?Confirmed albuterol sulfate 90 mcg/actuation 2 puff PO Q6H PRN for wheezing 10/13/22 03/24/24 aerosol inhaler ammonium lactate 12 % lotion 1 appl topical DAILY 11/20/23 03/24/24 oxybutynin chloride 10 mg 10 mg PO DAILY 02/19/24 03/24/24 tablet,extended release 24 hr spironolactone 25 mg tablet 25 mg PO DAILY 03/14/24 03/24/24 Previous Rx's ?Medication ?Instructions ?Recorded walker #1 ea 05/22/23 finasteride 5 mg tablet 5 mg PO DAILY 90 days #90 tabs 09/08/23 amiodarone 200 mg tablet 200 mg PO DAILY 90 days #90 tabs 10/10/23 doxazosin 8 mg tablet 8 mg PO BEDTIME 90 days #90 tabs 11/03/23 Anoro Ellipta 62.5 mcg-25 1 inh PO DAILY #60 ea 11/05/23 mcg/actuation powder for inhalation (umeclidinium-vilanterol) pregabalin 150 mg capsule 150 mg PO TID 90 days #270 caps 12/02/23 Powered bariatric recliner #1 ea 12/11/23 atorvastatin 80 mg tablet 80 mg PO BEDTIME 90 days #90 tabs 12/29/23 docusate sodium 100 mg capsule 100 mg PO BID Constipation #180 01/13/24 (Colace) caps duloxetine 60 mg capsule,delayed 60 mg PO DAILY #90 caps 01/13/24 release apixaban 5 mg tablet (Eliquis) 5 mg PO BID #60 tabs 01/19/24 ropinirole 2 mg tablet 2 mg PO TID 90 days #270 tabs 01/22/24 ascorbic acid (vitamin C) 1,000 mg 1 g PO DAILY 90 days #90 tabs 01/29/24 tablet methenamine hippurate 1 gram tablet 1 g PO DAILY 90 days #90 tabs 01/29/24 bumetanide 1 mg tablet 2 mg (2 x 1 mg) PO DAILY #180 tabs 02/23/24 ipratropium 0.5 mg-albuterol 3 mg 3 ml inhalation Q6H PRN wheezing 03/11/24 (2.5 mg base)/3 mL nebulization 30 days #360 mL soln nystatin 100,000 unit/mL oral 400,000 unit (4 mL) buccal TID 03/23/24 suspension ORAL THRUSH 15 days #180 mL zolpidem 10 mg tablet 10 mg PO BEDTIME PRN sleep #30 tabs 03/23/24 Allergies Allergy/AdvReac Type Severity Reaction Status Date / Time No Known Allergies Allergy Verified 03/24/24 11:56 [No Known Allergies*] Review of Systems 2 Review of Systems: Yes all other systems are reviewed and are negative Constitutional: Constitutional: Reports fatigue, Denies fever(s), Reports lethargy and Reports malaise Cardiovascular: Cardiovascular: Denies chest pain and Denies dyspnea Respiratory: Respiratory: Denies cough and Denies dyspnea Gastrointestinal: Gastrointestinal: Denies abdominal pain, Denies diarrhea, Denies nausea and Denies vomiting Endocrine: Endocrine: Reports fatigue PMFSH Past Medical History Attestation statement: The following information was validated with the patient. Medical History Sepsis COPD (chronic obstructive pulmonary disease) Acute respiratory failure due to COVID-19 Community acquired pneumonia Viral sepsis Fatigue Acute on chronic diastolic CHF (congestive heart failure) COVID Morbid obesity Paroxysmal atrial fibrillation Congestive heart failure Testicular swelling Osteoarthritis of right knee Melanoma History of cardioversion Hereditary lymphedema Venous insufficiency Morbid obesity Lymphedema COPD (chronic obstructive pulmonary disease) Sensory neuropathy COVID-19 Respiratory failure with hypoxia Restrictive lung disease JEFFRY on CPAP MATUTE (dyspnea on exertion) Chronic cystitis Bladder outlet obstruction Restless leg syndrome Traumatic complete tear of right rotator cuff Injury of right rotator cuff History of diverticulitis History of umbilical hernia Surgical History Hx of colonoscopy History of appendectomy History of arthroscopy of left knee Family History Family History Father Arthritis Diabetes Mother Arthritis Kidney stones Family/Other Arthritis Sister No problems noted. Sister No problems noted. Son No problems noted. Social History Social History Household Members: Spouse Household Members Other:: Housing: Condominium Do you presently have visiting nurse or other home services: Yes (PT at house.) Unable to assess alcohol history related to: Unknown Alcohol intake: current Alcohol intake frequency: 0-2 drinks per day Alcohol type: beer Comment: refusing bed alarm Patient Tobacco Use Status: Former Tobacco user Tobacco use type: Cigarette Cigarette Packs Per Day: 1 Cigarettes Per Day: 20.0 Years Smoked: 30 years Smoked in Last 30 Days: No e-Cigarette/Vaping Use: Never Used Second Hand Smoke Exposure: No Use of substances other than those prescribed or required for medical reasons: No Substance Use Type: Marijuana Currently Displaying Signs/Symptoms of Drug Intoxication Withdrawal: No Have you been hit, kicked, punched, or otherwise hurt by someone within the past year? If so, by whom?: No Do you feel safe in your current relationship?: Yes Is there a partner from a previous relationship who is making you feel unsafe now?: No Are you made to feel afraid or neglected: No Advance Directives: Yes Advance Directives on File: Yes Advance Directives Date on File: 05/16/20 Do you have a plan to hurt others: No Plan Recently lost weight without trying: No How much weight loss: Not applicable Eating poorly because of decreased appetite: No Nutrition screen score: 0 Nutrition Risks: No Nutritional Risk Poor oral hygiene: No service: No Current occupational status: retired 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 Cognitive needs: No Hearing needs: No Vision needs: No Physical Exam ED Vital Signs: Vital Signs - 24 hr 03/24/24 11:15 03/24/24 12:04 03/24/24 13:56 Temperature 100.6 F H 102.5 F H Pulse Rate 111 H 102 H Respiratory Rate 18 16 Blood Pressure 157/62 H 111/57 L Pulse Oximetry 92 97 Oxygen Delivery Method Nasal Cannula Nasal Cannula Oxygen Flow Rate 4 03/24/24 14:04 03/24/24 17:17 03/24/24 19:47 Temperature 98.1 F 97.6 F Pulse Rate 82 83 Respiratory Rate 16 16 Blood Pressure 113/54 L 112/58 L Pulse Oximetry 96 96 98 Oxygen Delivery Method Nasal Cannula Nasal Cannula Nasal Cannula Oxygen Flow Rate 3 2 3 03/24/24 19:53 Temperature Pulse Rate Respiratory Rate 16 Blood Pressure Pulse Oximetry Oxygen Delivery Method Oxygen Flow Rate BMI result Body Mass Index 51.1 Const Other: Alert Orientation/consciousness: patient oriented x3 Resp Other: Nonlabored respirations, faint basilar crackles noted posterior retana, no wheezing Cardio Other: Normal peripheral perfusion Skin Other: Warm dry no rash Neuro General: patient oriented x3, no focal motor deficits and CN's II-XI intact bilaterally Psych Other: Cooperative Course Reevaluation(s) Reevaluation #1: Concern for sepsis, blood cultures and lactic acid were already obtained from triage, the patient arrived febrile, he received Tylenol. He is normotensive, does not require weight based IV fluid therapy, we will give a 500 mL bolus. Starting empiric ceftriaxone as a clear source has yet to be identified. Time: 13:45 Medications Administered Generic Name Dose Route Start Last Admin Trade Name Inocencioq PRN Reason Stop Dose Admin Acetaminophen 975 mg 03/25/24 10:00 03/27/24 15:46 Acetaminophen 325 Mg Tablet PO 975 mg Q6H MICHELLE Administration Amiodarone HCl 200 mg 03/25/24 09:00 03/27/24 08:08 Amiodarone Hcl 200 Mg Tablet PO 200 mg DAILY MICHELLE Administration Ascorbic Acid 1,000 mg 03/25/24 09:00 03/27/24 08:08 Ascorbic Acid 500 Mg Tablet PO 1,000 mg DAILY MICHELLE Administration Atorvastatin Calcium 80 mg 03/25/24 21:00 03/26/24 21:25 Atorvastatin Calcium 80 Mg Tablet PO 80 mg BEDTIME MICHELLE Administration Bumetanide 1 mg 03/25/24 17:00 03/27/24 08:28 Bumetanide 1 Mg Tablet PO Not Given BID@0800,1700 [facility] Protocol Docusate Sodium 100 mg 03/25/24 09:00 03/27/24 08:08 Docusate Sodium 100 Mg Capsule PO 100 mg BID MICHELLE Administration Doxazosin Mesylate 8 mg 03/25/24 21:00 03/26/24 21:25 Doxazosin Mesylate 2 Mg Tablet PO 8 mg BEDTIME MICHELLE Administration Protocol Duloxetine HCl 60 mg 03/25/24 09:00 03/27/24 08:08 Duloxetine Hcl 60 Mg Capsule.Dr PO 60 mg DAILY MICHELLE Administration Finasteride 5 mg 03/25/24 09:00 03/27/24 08:08 Finasteride 5 Mg Tablet PO 5 mg DAILY MICHELLE Administration Piperacillin Sod/Tazobactam 100 mls @ 200 mls/hr 03/24/24 21:00 03/27/24 18:09 Sod 4.5 gm/ Sodium Chloride IV Infused Q6H MICHELLE Infusion Doxycycline Hyclate 100 mg/ 250 mls @ 166.67 mls/hr 03/24/24 21:00 03/27/24 10:36 Sodium Chloride IV Infused Q12H MICHELLE Infusion Lactic Acid 1 appl 03/25/24 09:00 03/27/24 08:19 Ammonium Lactate 12 % Lotion 226 Gm Bottle TOPICAL 1 appl DAILY [facility] Administration Protocol Lidocaine 1 patch 03/26/24 09:00 03/27/24 08:10 Lidocaine 4 % Patch Adh..Patch TRANSDERMA 1 patch DAILY [facility] Administration Protocol Magnesium Hydroxide 30 ml 03/24/24 20:44 03/27/24 08:23 Milk Of Magnesia 30 Ml Oral.Susp PO 30 ml DAILY PRN Administration Constipation Melatonin 6 mg 03/24/24 20:44 03/26/24 21:25 Melatonin 3 Mg Tablet PO 6 mg BEDTIME PRN Administration Insomnia Methenamine Hippurate 1 gm 03/25/24 09:00 03/27/24 08:06 Methenamine Hippurate 1 Gm Tablet PO 1 gm DAILY MICHELLE Administration Patient Own Med ( 1 inhalation 03/26/24 09:30 03/27/24 08:27 Umeclidinium- PO 1 inhalation Vilanterol [Anoro RDAILY MICHELLE Administration Ellipta] 62.5-25 Mcg /Actuation Bl Nystatin 400,000 unit 03/25/24 09:00 03/27/24 14:25 Nystatin Oral Susp 500,000 Unit/5 Ml Oral.Susp BUCCAL Not Given TID [facility] Protocol Ondansetron HCl 4 mg 03/24/24 20:44 03/27/24 01:18 Ondansetron Hcl 4 Mg/2 Ml Vial IVPUSH 4 mg Q8H PRN Administration Nausea and Vomiting Oxybutynin Chloride 10 mg 03/25/24 09:00 03/27/24 08:07 Oxybutynin Chloride Er 5 Mg Tab.Er.24 PO 10 mg DAILY MICHELLE Administration Oxycodone HCl 5 mg 03/27/24 08:46 03/27/24 15:46 Oxycodone Hcl Immed Release 5 Mg Tablet PO 5 mg Q4H PRN Administration Pain, Moderate(Pain Scale 4-6) Pregabalin 150 mg 03/25/24 09:00 03/27/24 14:12 Pregabalin 150 Mg Capsule PO 150 mg TID [facility] Administration Ropinirole HCl 2 mg 03/24/24 21:00 03/27/24 14:12 Ropinirole Hcl 2 Mg Tablet PO 2 mg TID [facility] Administration Sodium Chloride 3 ml 03/25/24 00:00 03/27/24 15:47 0.9 % Sodium Chloride Flush 3 Ml Syringe IVFLUSH Not Given QSHIFT [facility] Zolpidem Tartrate 5 mg 03/24/24 22:11 03/25/24 22:49 Zolpidem Tartrate 5 Mg Tablet PO 5 mg BEDTIME PRN Administration sleep Discontinued Medications Generic Name Dose Route Start Last Admin Trade Name nIocencioq PRN Reason Stop Dose Admin Acetaminophen 975 mg 03/24/24 13:33 03/24/24 13:44 Acetaminophen 325 Mg Tablet PO 03/24/24 13:34 975 mg ONCE ONE Administration Acetaminophen 975 mg 03/24/24 20:44 03/24/24 21:48 Acetaminophen 325 Mg Tablet PO 975 mg Q6H PRN Administration Pain, Mild 1-3,fever,headache Ceftriaxone Sodium 2 gm 03/24/24 13:45 03/24/24 14:03 Ceftriaxone Sodium 2 Gm Vial IVPUSH 03/24/24 13:46 2 gm ONCE ONE Administration Hydromorphone HCl 0.5 mg 03/27/24 00:55 03/27/24 01:14 Hydromorphone Hcl 0.5 Mg/0.5 Ml Syringe IVPUSH 03/27/24 00:56 0.5 mg ONCE STA Administration Protocol Sodium Chloride 500 mls @ 500 mls/hr 03/24/24 13:45 03/24/24 17:17 Ns IV 03/24/24 14:44 Infused .Q1H ONE Infusion Azithromycin 500 mg/ Sodium 250 mls @ 125 mls/hr 03/24/24 17:03 03/24/24 19:56 Chloride IV 03/24/24 19:02 Infused ONCE ONE Infusion Iohexol 100 ml 03/24/24 15:52 03/24/24 15:53 Iohexol 350 Mg/Ml 100 Ml Infus..Btl IV 03/24/24 15:53 100 ml ONCE ONE Administration Lorazepam 1 mg 03/25/24 23:37 03/25/24 23:45 Lorazepam 2 Mg/Ml Vial IVPUSH 03/25/24 23:38 1 mg ONCE STA Administration Magnesium Hydroxide 30 ml 03/26/24 18:00 03/26/24 18:32 Milk Of Magnesia 30 Ml Oral.Susp PO 03/26/24 18:01 30 ml ONCE ONE Administration Morphine Sulfate 4 mg 03/24/24 17:29 03/24/24 18:01 Morphine Sulfate 4 Mg/Ml Cartridge IVPUSH 03/24/24 17:30 4 mg ONCE ONE Administration Protocol Morphine Sulfate 4 mg 03/24/24 19:47 03/24/24 19:53 Morphine Sulfate 4 Mg/Ml Cartridge IVPUSH 03/24/24 19:48 4 mg ONCE ONE Administration Protocol Morphine Sulfate 2 mg 03/25/24 03:00 03/25/24 03:05 Morphine Sulfate 2 Mg/Ml Cartridge IVPUSH 03/25/24 03:01 2 mg ONCE ONE Administration Protocol Morphine Sulfate 2 mg 03/25/24 09:51 03/26/24 21:26 Morphine Sulfate 2 Mg/Ml Cartridge IVPUSH 2 mg Q6H PRN Administration Pain, Severe (Pain Scale 7-10) Protocol Medical Decision Making Medical Decision Making MDM Narrative: 69-year-old male with a history of morbid obesity, COPD on 3 L nasal cannula at baseline, hypertension, hyperlipidemia, diastolic heart failure with preserved ejection fraction, AFib on apixaban, arthritis, presents after collapse at home. Patient states he has not been feeling well over the past few days. Patient developed an episode of ?full body shaking?, that he could not control. His was there to assist him, and she lowered him to the floor. There was no head strike. Patient denies chest pain, shortness of breath, abdominal pain, nausea, vomiting, diarrhea or fever. Patient states he was recently admitted to the hospital March 13 through the with COPD exacerbation in the setting of COVID infection. Problem: Morbid obesity, COPD, heart failure, AFib History: Per patient I have considered the following differential diagnoses: Sepsis, rigors, pneumonia, UTI, viral syndrome, acute intra-abdominal pathology Plan: Concerned for sepsis, the patient has been febrile here in the emergency department. The episode that he had at home is consistent with shaking rigors. Screening labs, blood cultures, lactic acid, viral panel and chest X were obtained, the patient was given Tylenol. He is normotensive, he does not require weight based IV fluid therapy for his sepsis. He has a any patient has bilateral small pleural effusions, pneumonia can not be excluded in this setting, with the his fever and significant leukocytosis, I am obtaining a CT of the chest for better differentiation. I have independently reviewed the following tests: Labs: Significant leukocytosis of 27 with left shift, not anemic, no electrolyte abnormality, lactic acid 1.1, urine not infected, viral panel negative. Chest x-ray: FINDINGS: Limited by patient's body habitus. Prominence of the interstitial lung markings. Poor inspiration. No consolidation or pneumothorax. Questionable small pleural effusions. Cardiomediastinal silhouette is unchanged. Multilevel thoracic spondylosis. CT chest: CT/CT chest w IV con IMPRESSION: 1. Moderate centrilobular emphysema with evidence of pulmonary arterial hypertension. 2. Peribronchial thickening throughout both lungs, most significant bilateral lower lobes with endobronchial mucoid plugging, and subsegmental consolidative opacities left greater than right costophrenic sulci. Pneumonia is suspected. There are no effusions. 3. Borderline cardiomegaly. 4. Partially imaged, subcapsular left renal hematoma with extension into the left pararenal space. Associated mass effect upon, and anterior displacement of the left kidney. Of note, on 11/03/2023, kidneys appeared normal by ultrasound. 5. Small to moderate size type I hiatus hernia. 6. Cholelithiasis. 7. Additional ancillary findings as discussed. Electronically signed by: Wyatt Koch MD 03/24/2024 04:20 [facility] Given the finding we will obtain a dedicated CT abdomen and pelvis, to note I spoke with the manager of radiology, a non-con study should be sufficient given the recent contrast burden CT abdomen and pelvis:IMPRESSION: 1. Large left-sided perinephric hematoma measures 13.3 cm. Recommend attention on follow-up to evaluate for potential underlying renal mass. 2. No hydronephrosis. This document has been electronically signed by: Filemon Navarro MD on 03/24/2024 19:50:35 Lab Data 03/27/24 06:02 03/27/24 06:02 Labs: Lab Results 03/24/24 03/24/24 03/24/24 Range/Units 11:39 12:21 12:23 WBC 27.1 H (4.8-10.8) X10*3/uL RBC 4.17 L (4.60-5.80) X10*6/uL Hgb 13.8 L (14.0-18.0) g/dl Hct 40.3 L (42.0-52.0) % MCV 96.6 (80.0-98.0) fL MCH 33.1 H (27.0-33.0) pg MCHC 34.2 (31.0-36.0) g/dl RDW 13.5 (11.0-16.0) % Plt Count 435 H (160-400) X10*3/uL MPV 9.7 (9.4-12.4) fL Immature Gran % (Auto) 1.5 H (0.0-0.4) % Neut % (Auto) 86.4 H (45-73) % Lymph % (Auto) 5.8 L (20-40) % [place] % (Auto) 6.0 (2-11) % Eos % (Auto) 0.1 (0-4) % Baso % (Auto) 0.2 (0-2) % Lymph # (Auto) 1.6 (1.2-4.9) X10*3/uL [place] # (Auto) 1.6 H (0.1-1.2) X10*3/uL Eos # (Auto) 0.0 (0.0-0.4) X10*3/uL Baso # (Auto) 0.1 (0.0-0.2) X10*3/uL Abs Immat Gran (auto) 0.41 H (0.00-0.03) X10*3/uL Absolute Neuts (auto) 23.4 H (2.0-8.3) x10*3/uL Absolute Nucleated RBC 0.000 (0.0-0.012) X10*3/uL Nucleated RBC % (auto) 0.0 (0.0-0.2) /100WBC Smear Tech's Comments VERIFIED PT 20.7 H (10.9-12.4) SEC INR 1.8 H (0.9-1.1) APTT 31.0 (26.0-36.8) SEC Sodium 132 L (135-145) mmol/L Potassium 3.6 (3.3-5.1) mmol/L Chloride 96 (96-108) mmol/L Carbon Dioxide 28 (22-29) mmol/L Anion Gap 12 (12-20) BUN 20 H (9-16) mg/dL Creatinine 1.21 (0.5-1.4) mg/dL Estim Creat Clear Calc 107.4 Estimated GFR 60 Random Glucose 120 H (60-115) mg/dL Estimat Average Glucose 114 mg/dL Hemoglobin A1c % 5.6 (<6.0) % Lactic Acid 1.1 (0.5-2.0) mmol/L Calcium 8.5 (8.4-10.2) mg/dL Magnesium 1.7 (1.6-2.6) mg/dL Total Bilirubin 1.3 H (0.0-1.0) mg/dL Direct Bilirubin 0.7 H (0.0-0.5) mg/dL AST 28 (5-37) U/L ALT 37 (0-40) U/L Alkaline Phosphatase 68 (39-117) U/L Total Protein 6.9 (6.5-8.0) g/dL Albumin 3.1 L (3.5-5.0) g/dL Lipase 7 L (8-78) U/L Urine Color Yellow Urine Appearance Clear Urine pH 6.5 (5.0-9.0) Ur Specific [place] 1.010 (1.005-1.025) Urine Protein Negative (Neg-Trace) mg/dL Urine Glucose (UA) Negative (Negative) mg/dL Urine Ketones Negative (Negative) mg/dL Urine Blood Negative (Negative) Urine Nitrite Negative (Negative) Ur Leukocyte Esterase Negative (Negative) Influenza Type A (PCR) NEGATIVE (Negative) Influenza Type B (PCR) NEGATIVE (Negative) RSV RNA Qual (PCR) NEGATIVE (Negative) SARS-CoV-2 RNA (RT-PCR) NEGATIVE (Negative) Discharge Plan Discharge Clinical Impression: Traumatic perinephric hematoma of left kidney, Pneumonia Patient Disposition: Admitted As Inpatient Interventions: Admission Worksheet (ED) Last Done: 03/24/24 23:21 Discharge Date/Time: 03/25/24 00:00
[2024-03-24] MEDS: cefTRIAXone sodium 2 GM VIAL IVPUSH (14:03)
[2024-03-24] MEDS: 0.9 % Sodium Chloride 500 ML IV (14:04)
[2024-03-24] MEDS: iohexoL 350 MG/ML 100 ML INFUS..BTL IV (15:53)
--- NOTE | 2024-03-24 15:55 | MHC.CM.ED ---
Patient is currently in ER. Received notification from [facility] that patient is active with their agency. Return referral made in [facility] so [facility] can follow for d/c needs.
[2024-03-24] MEDS: Azithromycin 500 MG in 0.9 % Sodium Chloride 250 ML 125 MG IV (17:15)
[2024-03-24] MEDS: Morphine Sulfate 4 MG/ML CARTRIDGE IVPUSH ×2 (18:01→19:53)
--- NOTE | 2024-03-24 20:44 | P.HPHOSP_ITS ---
History of Present Illness Date of Service: 03/24/24 Attending physician on admission: Juan Antonio Owens Chief Complaint: rigors, fever Patient is a 69 year male with a past medical history significant for paroxysmal AFib on Eliquis and amiodarone, HFpEF, lymphedema with chronic venous stasis, HTN, COPD on 3 L home O2, JEFFRY on CPAP, seronegative RA, HTN, overactive bladder and morbid obesity, who presented to the ED after an episode of rigors and weakness today. He reports that he was standing and started feeling weak, no LOC or head strike. He was slowly drawn to the floor by his and they called EMS. They report yesterday use feeling very ill and pale however today he was feeling better up until this episode. He has had a wet cough but has not been able to bring up any sputum. He denies chest pain, shortness of breath, nausea vomiting or diarrhea. No urinary symptoms including dysuria, frequency or urgency. He was recently admitted from 03/13/24-03/18/24 with COVID, CHF and COPD. Review of Systems 2 Constitutional: Constitutional: Denies body ache(s), Reports chills, Reports fatigue, Reports fever(s), Denies headache(s) and Reports weakness Eyes: Eyes: Denies change in vision and Denies photophobia ENT: Denies headache(s), Denies nasal congestion, Denies nasal discharge and Denies sore throat Cardiovascular: Cardiovascular: Denies chest pain, Denies rapid heart rate, Denies leg edema, Denies lightheadedness, Denies dyspnea and Denies dyspnea on exertion Respiratory: Respiratory: Reports chest congestion, Reports cough, Denies pain with cough, Denies dyspnea, Denies dyspnea on exertion and Denies wheezing Gastrointestinal: Gastrointestinal: Denies diarrhea, Denies nausea and Denies vomiting Genitourinary: Genitourinary: Denies oliguria, Denies dysuria, Denies urinary frequency and Denies urinary urgency Musculoskeletal: Musculoskeletal: Denies myalgias Integumentary/Breasts: Skin/Breast: Denies rash Neurologic: Denies confusion, Denies headache(s), Denies seizure-like activity and Reports weakness Psychiatric: Psychiatric: Denies confusion Endocrine: Endocrine: Reports fatigue and Reports flushing Hematologic/Lymphatic: Hematologic/Lymphatic: Denies easy bleeding and Denies easy bruising Allergic/Immunologic: Allergic/Immunologic: Denies wheezing [facility] Medical History (Updated 03/24/24 @ 21:13 by Coreen Johns PA-C) Sepsis COPD (chronic obstructive pulmonary disease) Acute respiratory failure due to COVID-19 Community acquired pneumonia Viral sepsis Fatigue Acute on chronic diastolic CHF (congestive heart failure) COVID Morbid obesity Paroxysmal atrial fibrillation Congestive heart failure Testicular swelling Osteoarthritis of right knee Melanoma History of cardioversion Hereditary lymphedema Venous insufficiency Morbid obesity Lymphedema COPD (chronic obstructive pulmonary disease) Sensory neuropathy COVID-19 Respiratory failure with hypoxia Restrictive lung disease JEFFRY on CPAP MATUTE (dyspnea on exertion) Chronic cystitis Bladder outlet obstruction Restless leg syndrome Traumatic complete tear of right rotator cuff Injury of right rotator cuff History of diverticulitis History of umbilical hernia Family History Father Arthritis Diabetes Mother Arthritis Kidney stones Family/Other Arthritis Sister No problems noted. Sister No problems noted. Son No problems noted. Surgical History (Updated 03/19/24 @ 00:02 by Ty Morrow) Hx of colonoscopy History of appendectomy History of arthroscopy of left knee Social History Household Members: Spouse Household Members Other:: Housing: Condominium Do you presently have visiting nurse or other home services: Yes Unable to assess alcohol history related to: Unknown Alcohol intake: current Alcohol intake frequency: 0-2 drinks per day Alcohol type: beer Comment: refusing bed alarm Patient Tobacco Use Status: Former Tobacco user Tobacco use type: Cigarette Cigarette Packs Per Day: 1 Cigarettes Per Day: 20.0 Years Smoked: 30 years Smoked in Last 30 Days: No e-Cigarette/Vaping Use: Never Used Second Hand Smoke Exposure: No Use of substances other than those prescribed or required for medical reasons: No Substance Use Type: Marijuana Advance Directives: Yes Advance Directives on File: Yes Advance Directives Date on File: 05/16/20 service: No Current occupational status: retired 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[employer]/ [employer] Cognitive needs: No Hearing needs: No Vision needs: No Meds Allergies Allergy/AdvReac Type Severity Reaction Status Date / Time No Known Allergies Allergy Verified 03/24/24 11:56 [No Known Allergies*] Home Medications ?Medication ?Instructions ?Recorded ?Confirmed ?Last Taken ?Type albuterol sulfate 90 mcg/actuation 2 puff PO Q6H PRN for wheezing 10/13/22 03/24/24 Unknown History aerosol inhaler ammonium lactate 12 % lotion 1 appl topical DAILY 11/20/23 03/24/24 03/24/24 History oxybutynin chloride 10 mg 10 mg PO DAILY 02/19/24 03/24/24 03/24/24 History tablet,extended release 24 hr spironolactone 25 mg tablet 25 mg PO DAILY 03/14/24 03/24/24 03/24/24 History Physical Exam 2 Vital Signs and Narrative: Vital Signs: Last Vital Signs Temp 97.6 F 03/24/24 19:47 Pulse 83 03/24/24 19:47 Resp 16 03/24/24 19:53 BP 112/58 L 03/24/24 19:47 Pulse Ox 98 03/24/24 19:47 O2 Del Method Nasal Cannula 03/24/24 19:47 O2 Flow Rate 3 03/24/24 19:47 Oxygen Flow Rate 6 03/24/24 11:15 BMI result Body Mass Index 51.1 General: AOx3, no acute distress Resp: no crackles or wheezing, +rhonchi bilaterally CVS: S1, S2, RRR GI: +BS, NT, no distention Skin: Warm, dry Neuro: Cranial nerves II-XII grossly intact bilaterally. Motor grossly intact bilaterally Extremities: Chronic venous stasis Psych: Appropriate affect Const: General: No confusion Orientation/consciousness: No confusion Eyes: Direct Ophthalmoscopy: No photophobia Neuro: General: No confusion Results Labs 03/24/24 12:21 03/24/24 12:21 Labs: Laboratory Results - last 24 hr 03/24/24 03/24/24 03/24/24 11:39 12:21 12:23 MCV 96.6 MCH 33.1 H MCHC 34.2 RDW 13.5 Plt Count 435 H MPV 9.7 Immature Gran % (Auto) 1.5 H Neut % (Auto) 86.4 H Lymph % (Auto) 5.8 L [place] % (Auto) 6.0 Eos % (Auto) 0.1 Baso % (Auto) 0.2 Lymph # (Auto) 1.6 [place] # (Auto) 1.6 H Eos # (Auto) 0.0 Baso # (Auto) 0.1 Abs Immat Gran (auto) 0.41 H Absolute Neuts (auto) 23.4 H Absolute Nucleated RBC 0.000 Nucleated RBC % (auto) 0.0 Smear Tech's Comments VERIFIED PT 20.7 H INR 1.8 H APTT 31.0 Anion Gap 12 Estim Creat Clear Calc 107.4 Estimated GFR 60 Random Glucose 120 H Lactic Acid 1.1 Calcium 8.5 Magnesium 1.7 Total Bilirubin 1.3 H Direct Bilirubin 0.7 H AST 28 ALT 37 Alkaline Phosphatase 68 Total Protein 6.9 Albumin 3.1 L Lipase 7 L Urine Color Yellow Urine Appearance Clear Urine pH 6.5 Ur Specific [place] 1.010 Urine Protein Negative Urine Glucose (UA) Negative Urine Ketones Negative Urine Blood Negative Urine Nitrite Negative Ur Leukocyte Esterase Negative Influenza Type A (PCR) NEGATIVE Influenza Type B (PCR) NEGATIVE RSV RNA Qual (PCR) NEGATIVE SARS-CoV-2 RNA (RT-PCR) NEGATIVE Imaging Radiologist's Impressions: Impressions Chest X-Ray 03/24/24 11:13 IMPRESSION: Mild interstitial lung edema and questionable bilateral small pleural effusions.. Electronically signed by: Jame Thompson MD 03/24/2024 11:59 AM EST RP Chest CT 03/24/24 13:54 IMPRESSION: 1. Moderate centrilobular emphysema with evidence of pulmonary arterial hypertension. 2. Peribronchial thickening throughout both lungs, most significant bilateral lower lobes with endobronchial mucoid plugging, and subsegmental consolidative opacities left greater than right costophrenic sulci. Pneumonia is suspected. There are no effusions. 3. Borderline cardiomegaly. 4. Partially imaged, subcapsular left renal hematoma with extension into the left pararenal space. Associated mass effect upon, and anterior displacement of the left kidney. Of note, on 11/03/2023, kidneys appeared normal by ultrasound. 5. Small to moderate size type I hiatus hernia. 6. Cholelithiasis. 7. Additional ancillary findings as discussed. Electronically signed by: Wyatt Koch MD 03/24/2024 04:20 PM EST RP Assessment and Plan (1) Sepsis: Status: Acute (2) Respiratory failure with hypoxia: Status: Acute (3) Pneumonia: Status: Acute (4) Perinephric hematoma: Status: Acute (5) Morbid obesity with BMI of 50.0-59.9, adult: Status: Chronic Plan Patient is a 69 year male with a past medical history significant for paroxysmal AFib on Eliquis and amiodarone, HFpEF, lymphedema with chronic venous stasis, HTN, COPD on 3 L home O2, JEFFRY on CPAP, seronegative RA,, overactive bladder and morbid obesity, who presented to the ED after an episode of rigors and weakness today. Workup consistent with sepsis secondary to pneumonia and incidental finding of large 13.3cm perinephric hematoma. sepsis and acute respiratory failure secondary to pneumonia - WBC 27, lactic acid 1.1, rectal temp of 102.5 degrees, tachycardic, blood cultures x2 pending, not severe sepsis - chest x-ray with questionable small bilateral pleural effusions - chest CT with bilateral pneumonia - COVID/flu/RSV negative - UA negative - given ceftriaxone and azithromycin in ED, switch to Zosyn and doxycycline due to recent hospital stay to cover hospital acquired pneumonia - MRSA nasal swab - follow CBC and BMP Perinephric hematoma, left kidney - incidental finding on chest CT of left perinephric hematoma - follow-up abdominopelvic CT with large left 13.3 cm perinephric hematoma - hold Eliquis for now - monitor H&H - consider andexxa if H&H drops - follow-up with Urology outpatient Paroxysmal AFib - hold Eliquis as above - continue amiodarone HFpEF - mild hypotension continue home meds when appropriate Lymphedema with chronic venous stasis - continue home meds HTN - mild hypotension continue home meds when appropriate COPD, no acute exacerbation - no wheezing on exam - continue home meds JEFFRY - CPAP at bedtime Morbid obesity - BMI 51.1 - weight loss encouraged Med rec not complete upon admission Full code VTE prophylaxis: Pneumoboots, hold anticoagulant due to large perinephric hematoma Patient with sepsis and acute hypoxic respiratory failure secondary to pneumonia with a recent hospital stay concerning for hospital-acquired pneumonia, requiring admission for at least 2 midnights stay for IV antibiotics and monitoring. Quality Stroke Does the patient have a stroke diagnosis?: No VTE Prior VTE?: No VTE Risk Level:: Medical - moderate - high VTE Device Contraindication: N/A - Device Ordered VTE Drug Contraindication: Treatment Not Indicated
--- NOTE | 2024-03-24 21:31 | PHA.MEDREC ---
Pharmacy Consult ? Medication Reconciliation Pharmacy has completed the medication reconciliation. Spoke to patient and confirmed medication list. He no longer takes benzonatate, dexamethasone and actemra (hasn't had it in a few weeks). He verified that his spironolactone dose is 25 mg daily. Last dose of medications was this morning 03/24/24.
[2024-03-24] MEDS: Piperacillin Sodium/Tazobactam 4.5 GM in 0.9 % Sodium Chloride 100 ML IV (21:44)
[2024-03-24] MEDS: rOPINIRole HCL 2 MG TABLET PO (21:48)
[2024-03-24] MEDS: Doxycycline Hyclate 100 MG in 0.9 % Sodium Chloride 250 ML 166.67 MG IV (22:16)
[2024-03-24] MEDS: Melatonin 3 MG TABLET 6 MG PO (22:26)
[2024-03-24] MEDS: Zolpidem Tartrate 5 MG TABLET PO (22:26)
[2024-03-24 22:38] LABS: Hemoglobin 12.5 g/dl (14.0-18.0)
[2024-03-24 22:52] LABS: MRSA Nasal PCR POSITIVE (Negative); SA Nasal PCR POSITIVE (Negative)
[2024-03-25] VITALS (8 sets, daily range): BP systolic 118–148; BP diastolic 55–81; PULSE 81–91; RESP 18–20; TEMP 36–37.4; O2SAT 93–97; BMI 51.2
[2024-03-25] MEDS: 0.9 % Sodium Chloride Flush 3 ML SYRINGE IVFLUSH ×4 (00:17→20:05)
[2024-03-25] MEDS: Piperacillin Sodium/Tazobactam 4.5 GM in 0.9 % Sodium Chloride 100 ML IV ×4 (02:50→20:03)
[2024-03-25] MEDS: Morphine Sulfate 2 MG/ML CARTRIDGE IVPUSH ×4 (03:05→22:49)
[2024-03-25 06:04] LABS: Estimated Average Glucose 114 mg/dL; Hemoglobin A1C 140.0056 umol/L; Hemoglobin A1c % 5.6 % (<6.0); Total Hemoglobin (HGBA1C) 3692.6265 umol/L
[2024-03-25 06:29] LABS: Anion Gap 15 (12-20); Blood Urea Nitrogen 21 mg/dL (9-16); Calcium 8.7 mg/dL (8.4-10.2); Carbon Dioxide 27 mmol/L (22-29); Chloride 96 mmol/L (96-108); Creatinine Clr Calc Pharmacy 122.8; Estimated Glomerular Filt Rate > 60; Glucose Random 114 mg/dL (60-115); Sodium 134 mmol/L (135-145)
[2024-03-25 06:43] LABS: Basophils Absolute Auto 0.1 X10*3/uL (0.0-0.2); Basophils Percent Auto 0.3 % (0-2); Eosinophils Absolute Auto 0.1 X10*3/uL (0.0-0.4); Eosinophils Percent Auto 0.2 % (0-4); Hematocrit 40.7 % (42.0-52.0); Hemoglobin 13.3 g/dl (14.0-18.0); Imm Gran Abs Auto 0.31 X10*3/uL (0.00-0.03); Imm Gran Pct Auto 1.4 % (0.0-0.4); Lymphocytes Absolute Auto 1.6 X10*3/uL (1.2-4.9); Lymphocytes Percent Auto 7.2 % (20-40); MANUAL DIFF FLAG SCAN; Mean Corpuscular HGB Conc 32.7 g/dl (31.0-36.0); Mean Corpuscular Hemoglobin 32.6 pg (27.0-33.0); Mean Corpuscular Volume 99.8 fL (80.0-98.0); Mean Platelet Volume 10.1 fL (9.4-12.4); Monocytes Absolute Auto 1.6 X10*3/uL (0.1-1.2); Monocytes Percent Auto 7.1 % (2-11); Neutrophils Absolute Auto 18.4 x10*3/uL (2.0-8.3); Neutrophils Percent Auto 83.8 % (45-73); Platelet Count 404 X10*3/uL (160-400); Red Blood Count 4.08 X10*6/uL (4.60-5.80); Red Cell Distribution Width 13.7 % (11.0-16.0); SCAN SMEAR FLAG 1; White Blood Count 21.9 X10*3/uL (4.8-10.8)
[2024-03-25] MEDS: Ascorbic Acid 500 MG TABLET 1000 MG PO (08:06)
[2024-03-25] MEDS: Docusate Sodium 100 MG CAPSULE PO ×2 (08:06→20:03)
[2024-03-25] MEDS: Finasteride 5 MG TABLET PO (08:06)
[2024-03-25] MEDS: Pregabalin 150 MG CAPSULE PO ×3 (08:07→20:03)
[2024-03-25] MEDS: oxyBUTYnin chloride ER 5 MG TAB.ER.24 10 MG PO (08:07)
[2024-03-25] MEDS: Methenamine Hippurate 1 GM TABLET PO (08:07)
[2024-03-25] MEDS: Amiodarone HCL 200 MG TABLET PO (08:08)
[2024-03-25] MEDS: rOPINIRole HCL 2 MG TABLET PO ×3 (08:08→20:03)
[2024-03-25] MEDS: DULoxetine HCl 60 MG CAPSULE.DR PO (08:08)
[2024-03-25] MEDS: Nystatin Oral Susp 500,000 UNIT/5 ML ORAL.SUSP 400000 UNIT BUCCAL ×3 (08:08→20:03)
[2024-03-25 08:31] LABS: SLIDE REVIEW VERIFIED
[2024-03-25] MEDS: Doxycycline Hyclate 100 MG in 0.9 % Sodium Chloride 250 ML 166.67 MG IV ×2 (08:38→20:37)
[2024-03-25] MEDS: Acetaminophen 325 MG TABLET 975 MG PO ×3 (10:17→22:49)
[2024-03-25] MEDS: Ammonium Lactate 12 % Lotion 226 GM BOTTLE 1 APPL TOPICAL (10:17)
[2024-03-25 11:27] LABS: Adenovirus PCR Not Detected (Not Detect.); Bordetella parapertussis PCR Not Detected (Not Detect.); Bordetella pertussis PCR Not Detected (Not Detect.); Chlamydia pneumoniae PCR Not Detected (Not Detect.); Coronavirus 229E PCR Not Detected (Not Detect.); Coronavirus HKU1 PCR Not Detected (Not Detect.); Coronavirus NL63 PCR Not Detected (Not Detect.); Coronavirus OC43 PCR Not Detected (Not Detect.); Human metapneumovirus PCR Not Detected (Not Detect.); Influenza A PCR Not Detected (Not Detect.); Influenza B PCR Not Detected (Not Detect.); Mycoplasma pneumoniae PCR Not Detected (Not Detect.); Parainfluenza 1 PCR Not Detected (Not Detect.); Parainfluenza 2 PCR Not Detected (Not Detect.); Parainfluenza 3 PCR Not Detected (Not Detect.); Parainfluenza 4 PCR Not Detected (Not Detect.); RSV PCR Not Detected (Not Detect.); Rhino/Enterovirus PCR Not Detected (Not Detect.); SARS-CoV-2 PCR Not Detected (Not Detect.)
--- NOTE | 2024-03-25 15:12 | PM.UROCN ---
History of Present Illness Consult details Narrative: hannah is a 69 year male with a past medical history significant for paroxysmal AFib on Eliquis and amiodarone, HFpEF, lymphedema with chronic venous stasis, HTN, COPD on 3 L home O2, JEFFRY on CPAP, seronegative RA, HTN, overactive bladder and morbid obesity, who presented to the ED after an episode of rigors and weakness today. He reports that he was standing and started feeling weak, no LOC or head strike. He was slowly drawn to the floor by his and they called EMS. They report yesterday use feeling very ill and pale however today he was feeling better up until this episode. He has had a wet cough but has not been able to bring up any sputum. He denies chest pain, shortness of breath, nausea vomiting or diarrhea. No urinary symptoms including dysuria, frequency or urgency. He was recently admitted from 03/13/24-03/18/24 with COVID, CHF and COPD 1. Large left-sided perinephric hematoma measures 13.3 cm. Recommend attention on follow-up to evaluate for potential underlying renal mass PMFSH Past Medical History Medical History Sepsis COPD (chronic obstructive pulmonary disease) Acute respiratory failure due to COVID-19 Community acquired pneumonia Viral sepsis Fatigue Acute on chronic diastolic CHF (congestive heart failure) COVID Morbid obesity Paroxysmal atrial fibrillation Congestive heart failure Testicular swelling Osteoarthritis of right knee Melanoma History of cardioversion Hereditary lymphedema Venous insufficiency Morbid obesity Lymphedema COPD (chronic obstructive pulmonary disease) Sensory neuropathy COVID-19 Respiratory failure with hypoxia Restrictive lung disease JEFFRY on CPAP MATUTE (dyspnea on exertion) Chronic cystitis Bladder outlet obstruction Restless leg syndrome Traumatic complete tear of right rotator cuff Injury of right rotator cuff History of diverticulitis History of umbilical hernia Family History Family History Father Arthritis Diabetes Mother Arthritis Kidney stones Family/Other Arthritis Sister No problems noted. Sister No problems noted. Son No problems noted. Surgical History Surgical History Hx of colonoscopy History of appendectomy History of arthroscopy of left knee Social History Social History Household Members: Spouse Household Members Other:: Housing: Condominium Do you presently have visiting nurse or other home services: Yes (PT at house.) Unable to assess alcohol history related to: Unknown Alcohol intake: current Alcohol intake frequency: 0-2 drinks per day Alcohol type: beer Comment: refusing bed alarm Patient Tobacco Use Status: Former Tobacco user Tobacco use type: Cigarette Cigarette Packs Per Day: 1 Cigarettes Per Day: 20.0 Years Smoked: 30 years Smoked in Last 30 Days: No e-Cigarette/Vaping Use: Never Used Second Hand Smoke Exposure: No Use of substances other than those prescribed or required for medical reasons: No Substance Use Type: Marijuana Currently Displaying Signs/Symptoms of Drug Intoxication Withdrawal: No Have you been hit, kicked, punched, or otherwise hurt by someone within the past year? If so, by whom?: No Do you feel safe in your current relationship?: Yes Is there a partner from a previous relationship who is making you feel unsafe now?: No Are you made to feel afraid or neglected: No Advance Directives: Yes Advance Directives on File: Yes Advance Directives Date on File: 05/16/20 Do you have a plan to hurt others: No Plan Recently lost weight without trying: No How much weight loss: Not applicable Eating poorly because of decreased appetite: No Nutrition screen score: 0 Nutrition Risks: No Nutritional Risk Poor oral hygiene: No service: No Current occupational status: retired 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 Cognitive needs: No Hearing needs: No Vision needs: No Meds Allergies Allergy/AdvReac Type Severity Reaction Status Date / Time No Known Allergies Allergy Verified 03/24/24 11:56 [No Known Allergies*] Active Medications: Current Medications Acetaminophen (Acetaminophen 325 Mg Tablet) 975 mg PO Q6H [facility] Last Admin: 03/25/24 15:00 Dose: 975 mg Amiodarone HCl (Amiodarone Hcl 200 Mg Tablet) 200 mg PO DAILY [facility] Last Admin: 03/25/24 08:08 Dose: 200 mg Ascorbic Acid (Ascorbic Acid 500 Mg Tablet) 1,000 mg PO DAILY [facility] Last Admin: 03/25/24 08:06 Dose: 1,000 mg Atorvastatin Calcium (Atorvastatin Calcium 80 Mg Tablet) 80 mg PO BEDTIME [facility] Calcium Carbonate (Calcium Carbonate 750 Mg Tab.Chew) 750 mg PO Q4H PRN PRN Reason: Heartburn Docusate Sodium (Docusate Sodium 100 Mg Capsule) 100 mg PO BID [facility] Last Admin: 03/25/24 08:06 Dose: 100 mg Doxazosin Mesylate (Doxazosin Mesylate 2 Mg Tablet) 8 mg PO BEDTIME MICHELLE; Protocol Duloxetine HCl (Duloxetine Hcl 60 Mg Capsule.Dr) 60 mg PO DAILY [facility] Last Admin: 03/25/24 08:08 Dose: 60 mg Finasteride (Finasteride 5 Mg Tablet) 5 mg PO DAILY [facility] Last Admin: 03/25/24 08:06 Dose: 5 mg Piperacillin Sod/Tazobactam (Sod 4.5 gm/ Sodium Chloride) 100 mls @ 200 mls/hr IV Q6H [facility] Last Admin: 03/25/24 14:59 Dose: 200 mls/hr Doxycycline Hyclate 100 mg/ (Sodium Chloride) 250 mls @ 166.67 mls/hr IV Q12H [facility] Last Infusion: 03/25/24 10:23 Dose: Infused Lactic Acid (Ammonium Lactate 12 % Lotion 226 Gm Bottle) 1 appl TOPICAL DAILY [facility]; Protocol Last Admin: 03/25/24 10:17 Dose: 1 appl Lidocaine (Lidocaine 4 % Patch Adh..Patch) 1 patch TRANSDERMA DAILY [facility]; Protocol Magnesium Hydroxide (Milk Of Magnesia 30 Ml Oral.Susp) 30 ml PO DAILY PRN PRN Reason: Constipation Melatonin (Melatonin 3 Mg Tablet) 6 mg PO BEDTIME PRN PRN Reason: Insomnia Last Admin: 03/24/24 22:26 Dose: 6 mg Methenamine Hippurate (Methenamine Hippurate 1 Gm Tablet) 1 gm PO DAILY [facility] Last Admin: 03/25/24 08:07 Dose: 1 gm Morphine Sulfate (Morphine Sulfate 2 Mg/Ml Cartridge) 2 mg IVPUSH Q6H PRN; Protocol PRN Reason: Pain, Severe (Pain Scale 7-10) Last Admin: 03/25/24 10:17 Dose: 2 mg Non-Formulary Medication (Umeclidinium-Vilanterol [Anoro Ellipta]) 1 inhalation PO RDAILY [facility] Nystatin (Nystatin Oral Susp 500,000 Unit/5 Ml Oral.Susp) 400,000 unit BUCCAL TID MICHELLE; Protocol Last Admin: 03/25/24 14:59 Dose: 400,000 unit Ondansetron HCl (Ondansetron Hcl 4 Mg/2 Ml Vial) 4 mg IVPUSH Q8H PRN PRN Reason: Nausea and Vomiting Oxybutynin Chloride (Oxybutynin Chloride Er 5 Mg Tab.Er.24) 10 mg PO DAILY [facility] Last Admin: 03/25/24 08:07 Dose: 10 mg Polyethylene Glycol (Polyethylene Glycol 3350 17 Gm Powd.Pack) 17 gm PO DAILY PRN PRN Reason: Constipation Pregabalin (Pregabalin 150 Mg Capsule) 150 mg PO TID [facility] Last Admin: 03/25/24 15:00 Dose: 150 mg Ropinirole HCl (Ropinirole Hcl 2 Mg Tablet) 2 mg PO TID [facility] Last Admin: 03/25/24 15:00 Dose: 2 mg Sodium Chloride (0.9 % Sodium Chloride Flush 3 Ml Syringe) 3 ml IVFLUSH QSHIFT [facility] Last Admin: 03/25/24 14:58 Dose: 3 ml Zolpidem Tartrate (Zolpidem Tartrate 5 Mg Tablet) 5 mg PO BEDTIME PRN PRN Reason: sleep Last Admin: 03/24/24 22:26 Dose: 5 mg Home Medications ?Medication ?Instructions ?Recorded ?Confirmed ?Last Taken ?Type albuterol sulfate 90 mcg/actuation 2 puff PO Q6H PRN for wheezing 10/13/22 03/24/24 Unknown History aerosol inhaler ammonium lactate 12 % lotion 1 appl topical DAILY 11/20/23 03/24/24 03/24/24 History oxybutynin chloride 10 mg 10 mg PO DAILY 02/19/24 03/24/24 03/24/24 History tablet,extended release 24 hr spironolactone 25 mg tablet 25 mg PO DAILY 03/14/24 03/24/24 03/24/24 History Physical Exam Vital Signs: Vital Signs: Last Vital Signs Temp 98.0 F 03/25/24 12:00 Pulse 86 03/25/24 12:00 Resp 18 03/25/24 12:00 BP 119/56 L 03/25/24 12:00 Pulse Ox 96 03/25/24 12:00 O2 Del Method Nasal Cannula 03/25/24 12:00 O2 Flow Rate 3.0 03/25/24 12:00 Oxygen Flow Rate 6 03/24/24 11:15 BMI result Body Mass Index 51.2 Results Labs 03/25/24 05:19 03/25/24 05:19 Labs: Abnormal lab results 03/24/24 03/24/24 03/25/24 Range/Units 21:38 22:33 05:19 WBC 21.9 H (4.8-10.8) X10*3/uL RBC 4.08 L (4.60-5.80) X10*6/uL Hgb 12.5 L 13.3 L (14.0-18.0) g/dl Hct 36.0 L 40.7 L (42.0-52.0) % MCV 99.8 H (80.0-98.0) fL Plt Count 404 H (160-400) X10*3/uL Immature Gran % (Auto) 1.4 H (0.0-0.4) % Neut % (Auto) 83.8 H (45-73) % Lymph % (Auto) 7.2 L (20-40) % [place] # (Auto) 1.6 H (0.1-1.2) X10*3/uL Abs Immat Gran (auto) 0.31 H (0.00-0.03) X10*3/uL Absolute Neuts (auto) 18.4 H (2.0-8.3) x10*3/uL Sodium 134 L (135-145) mmol/L BUN 21 H (9-16) mg/dL Nasal Screen MRSA (PCR) POSITIVE A (Negative) Nasal S. aureus Screen POSITIVE A (Negative) Short CBC 03/24/24 03/25/24 Range/Units 22:33 05:19 WBC 21.9 H (4.8-10.8) X10*3/uL Hgb 12.5 L 13.3 L (14.0-18.0) g/dl Hct 36.0 L 40.7 L (42.0-52.0) % Plt Count 404 H (160-400) X10*3/uL BMP 03/25/24 05:19 Sodium 134 L Potassium 4.0 Chloride 96 Carbon Dioxide 27 BUN 21 H Creatinine 1.06 Calcium 8.7 Urine 03/24/24 Range/Units 11:39 Urine Color Yellow Urine Appearance Clear Urine pH 6.5 (5.0-9.0) Ur Specific [place] 1.010 (1.005-1.025) Urine Protein Negative (Neg-Trace) mg/dL Urine Glucose (UA) Negative (Negative) mg/dL All other labs normal. Procedures Date of Service Date of Service: 03/25/24
--- NOTE | 2024-03-25 15:38 | MHC.CM.PN ---
IMM 03/25/24 DX PNA Lives with , active with [facility]. HCP on file. Walker, CPAP and Oxygen @ home [facility] is the provider. DP home with resumption of [facility]. Patients will transport home at discharge.
--- NOTE | 2024-03-25 16:27 | P.PNIM_ITS ---
Subjective Subjective Date of Service: 03/25/24 Interval History: copd Review of Systems sob seems similar has cough no fevers Physical Exam 2 Vital Signs: Vital Signs: Last Vital Signs Temp 99.3 F 03/25/24 15:26 Pulse 82 03/25/24 15:26 Resp 18 03/25/24 15:26 BP 143/61 H 03/25/24 15:26 Pulse Ox 97 03/25/24 15:26 O2 Del Method Nasal Cannula 03/25/24 15:26 O2 Flow Rate 3 03/25/24 15:26 Oxygen Flow Rate 6 03/24/24 11:15 BMI result Body Mass Index 51.2 Appearance: Alert.? Oriented X3.? cvs: rrr, [id number] . res: air entry dimished ,few rhonchii abd: no rebound or guarding ,nt, bs present. ext pulses present , no cyanosis. neuro: axo3 , nonfocal. Objective Data Active Medications Acetaminophen (Acetaminophen 325 Mg Tablet) 975 mg PO Q6H [facility] Last Admin: 03/25/24 15:00 Dose: 975 mg Documented By: CHERYLE Amiodarone HCl (Amiodarone Hcl 200 Mg Tablet) 200 mg PO DAILY [facility] Last Admin: 03/25/24 08:08 Dose: 200 mg Documented By: CHERYLE Ascorbic Acid (Ascorbic Acid 500 Mg Tablet) 1,000 mg PO DAILY [facility] Last Admin: 03/25/24 08:06 Dose: 1,000 mg Documented By: CHERYLE Atorvastatin Calcium (Atorvastatin Calcium 80 Mg Tablet) 80 mg PO BEDTIME [facility] Calcium Carbonate (Calcium Carbonate 750 Mg Tab.Chew) 750 mg PO Q4H PRN PRN Reason: Heartburn Docusate Sodium (Docusate Sodium 100 Mg Capsule) 100 mg PO BID [facility] Last Admin: 03/25/24 08:06 Dose: 100 mg Documented By: CHERYLE Doxazosin Mesylate (Doxazosin Mesylate 2 Mg Tablet) 8 mg PO BEDTIME [facility]; Protocol Duloxetine HCl (Duloxetine Hcl 60 Mg Capsule.) 60 mg PO DAILY [facility] Last Admin: 03/25/24 08:08 Dose: 60 mg Documented By: CHERYLE Finasteride (Finasteride 5 Mg Tablet) 5 mg PO DAILY [facility] Last Admin: 03/25/24 08:06 Dose: 5 mg Documented By: CHERYLE Piperacillin Sod/Tazobactam (Sod 4.5 gm/ Sodium Chloride) 100 mls @ 200 mls/hr IV Q6H [facility] Last Infusion: 03/25/24 15:31 Dose: Infused Documented By: CHERYLE Doxycycline Hyclate 100 mg/ (Sodium Chloride) 250 mls @ 166.67 mls/hr IV Q12H [facility] Last Infusion: 03/25/24 10:23 Dose: Infused Documented By: CHERYLE Lactic Acid (Ammonium Lactate 12 % Lotion 226 Gm Bottle) 1 appl TOPICAL DAILY [facility]; Protocol Last Admin: 03/25/24 10:17 Dose: 1 appl Documented By: CHERYLE Lidocaine (Lidocaine 4 % Patch Adh..Patch) 1 patch TRANSDERMA DAILY [facility]; Protocol Magnesium Hydroxide (Milk Of Magnesia 30 Ml Oral.Susp) 30 ml PO DAILY PRN PRN Reason: Constipation Melatonin (Melatonin 3 Mg Tablet) 6 mg PO BEDTIME PRN PRN Reason: Insomnia Last Admin: 03/24/24 22:26 Dose: 6 mg Documented By: GRADY Methenamine Hippurate (Methenamine Hippurate 1 Gm Tablet) 1 gm PO DAILY [facility] Last Admin: 03/25/24 08:07 Dose: 1 gm Documented By: CHERYLE Morphine Sulfate (Morphine Sulfate 2 Mg/Ml Cartridge) 2 mg IVPUSH Q6H PRN; Protocol PRN Reason: Pain, Severe (Pain Scale 7-10) Last Admin: 03/25/24 10:17 Dose: 2 mg Documented By: CHERYLE Non-Formulary Medication (Umeclidinium-Vilanterol [Anoro Ellipta]) 1 inhalation PO RDAILY [facility] Nystatin (Nystatin Oral Susp 500,000 Unit/5 Ml Oral.Susp) 400,000 unit BUCCAL TID [facility]; Protocol Last Admin: 03/25/24 14:59 Dose: 400,000 unit Documented By: CHERYLE Ondansetron HCl (Ondansetron Hcl 4 Mg/2 Ml Vial) 4 mg IVPUSH Q8H PRN PRN Reason: Nausea and Vomiting Oxybutynin Chloride (Oxybutynin Chloride Er 5 Mg Tab.Er.24) 10 mg PO DAILY [facility] Last Admin: 03/25/24 08:07 Dose: 10 mg Documented By: CHERYLE Polyethylene Glycol (Polyethylene Glycol 3350 17 Gm Powd.Pack) 17 gm PO DAILY PRN PRN Reason: Constipation Pregabalin (Pregabalin 150 Mg Capsule) 150 mg PO TID [facility] Last Admin: 03/25/24 15:00 Dose: 150 mg Documented By: CHERYLE Ropinirole HCl (Ropinirole Hcl 2 Mg Tablet) 2 mg PO TID [facility] Last Admin: 03/25/24 15:00 Dose: 2 mg Documented By: CHERYLE Sodium Chloride (0.9 % Sodium Chloride Flush 3 Ml Syringe) 3 ml IVFLUSH QSHIFT [facility] Last Admin: 03/25/24 14:58 Dose: 3 ml Documented By: CHERYLE Zolpidem Tartrate (Zolpidem Tartrate 5 Mg Tablet) 5 mg PO BEDTIME PRN PRN Reason: sleep Last Admin: 03/24/24 22:26 Dose: 5 mg Documented By: GRADY Labs 03/25/24 05:19 03/25/24 05:19 Labs: Laboratory Results - last 24 hr 03/24/24 03/24/24 03/25/24 12:21 21:38 05:19 MCV 99.8 H MCH 32.6 MCHC 32.7 RDW 13.7 Plt Count 404 H MPV 10.1 Immature Gran % (Auto) 1.4 H Neut % (Auto) 83.8 H Lymph % (Auto) 7.2 L [place] % (Auto) 7.1 Eos % (Auto) 0.2 Baso % (Auto) 0.3 Lymph # (Auto) 1.6 [place] # (Auto) 1.6 H Eos # (Auto) 0.1 Baso # (Auto) 0.1 Abs Immat Gran (auto) 0.31 H Absolute Neuts (auto) 18.4 H Absolute Nucleated RBC 0.000 Nucleated RBC % (auto) 0.0 Smear Tech's Comments VERIFIED Anion Gap 15 Estim Creat Clear Calc 122.8 Estimated GFR > 60 Random Glucose 114 Estimat Average Glucose 114 Hemoglobin A1c % 5.6 Calcium 8.7 Nasal Screen MRSA (PCR) POSITIVE A Nasal S. aureus Screen POSITIVE A Nasal MRSA/S.aureus Interp SEE NOTE Respiratory Panel [place] Adenovirus (Rapid PCR) B.pert (TEM-PCR) B.parapertussis DNA PCR C. pneumoniae DNA (PCR) Coronavirus OC43 (PCR) Coronavirus HKU1 (PCR) Coronavirus 229E (PCR) Coronavirus NL63 (PCR) Human Metapneumovir PCR Influenza A (RT-PCR) Influenza B (RT-PCR) M. pneumoniae (PCR) Parainfluenza 1 (PCR) Parainfluenza 2 (PCR) Parainfluenza 3 (PCR) Parainfluenza 4 (PCR) RSV (PCR) Entero/Rhino (PCR) SARS-CoV-2 RNA (RT-PCR) 03/25/24 10:21 MCV MCH MCHC RDW Plt Count MPV Immature Gran % (Auto) Neut % (Auto) Lymph % (Auto) [place] % (Auto) Eos % (Auto) Baso % (Auto) Lymph # (Auto) [place] # (Auto) Eos # (Auto) Baso # (Auto) Abs Immat Gran (auto) Absolute Neuts (auto) Absolute Nucleated RBC Nucleated RBC % (auto) Smear Tech's Comments Anion Gap Estim Creat Clear Calc Estimated GFR Random Glucose Estimat Average Glucose Hemoglobin A1c % Calcium Nasal Screen MRSA (PCR) Nasal S. aureus Screen Nasal MRSA/S.aureus Interp Respiratory Panel [place] See Note Adenovirus (Rapid PCR) Not Detected B.pert (TEM-PCR) Not Detected B.parapertussis DNA PCR Not Detected C. pneumoniae DNA (PCR) Not Detected Coronavirus OC43 (PCR) Not Detected Coronavirus HKU1 (PCR) Not Detected Coronavirus 229E (PCR) Not Detected Coronavirus NL63 (PCR) Not Detected Human Metapneumovir PCR Not Detected Influenza A (RT-PCR) Not Detected Influenza B (RT-PCR) Not Detected M. pneumoniae (PCR) Not Detected Parainfluenza 1 (PCR) Not Detected Parainfluenza 2 (PCR) Not Detected Parainfluenza 3 (PCR) Not Detected Parainfluenza 4 (PCR) Not Detected RSV (PCR) Not Detected Entero/Rhino (PCR) Not Detected SARS-CoV-2 RNA (RT-PCR) Not Detected Microbiology Microbiology Results: Microbiology 03/24/24 12:21 Blood Culture - Preliminary Blood - Venous No growth after 24 hours. 03/24/24 12:22 Blood Culture - Preliminary Blood - Venous Prelim: GPC Gram Stain only Assessment and Plan (1) Perinephric hematoma: Status: Acute (2) Acute respiratory failure: Status: Acute (3) Pneumonia: Status: Acute Assessment and Plan: 69 year male with a past medical history significant for paroxysmal AFib on Eliquis and amiodarone, HFpEF, lymphedema with chronic venous stasis, HTN, COPD on 3 L home O2, JEFFRY on CPAP, seronegative RA,, overactive bladder and morbid obesity, who presented to the ED after an episode of rigors and weakness today. Workup consistent with sepsis secondary to pneumonia and incidental finding of large 13.3cm perinephric hematoma. sepsis and acute respiratory failure secondary to pneumonia Leukocytosis improving, no fever, tachycardia resolved. blood cultures x2 pending, not severe sepsis chest x-ray with questionable small bilateral pleural effusions/chest CT with bilateral pneumonia 1/2 blood cultures positive :Gram-positive cocci in clusters- 1 set positive/2 sets drawn(MRSA PCR: MRSA: Negative, SA: Negative) plan: continue Zosyn and doxycycline due to recent hospital stay to cover hospital acquired pneumonia d/w id -blood culture likely contiminant -continue current antibiotics Perinephric hematoma, left kidney- incidental finding on chest CT of left perinephric hematoma follow-up abdominopelvic CT with large left 13.3 cm perinephric hematoma - hold Eliquis for nowand monitor H&H added lidocaine patch ,morphine ,tylenol,bowel regimen urology eval. Paroxysmal AFib- hold Eliquis as above. continue amiodarone HFpEF-euvolemia continue bumex. Lymphedema with chronic venous stasis - continue home meds HTN - mild hypotension continue home meds when appropriate COPD, no acute exacerbation - no wheezing on exam - continue home meds JEFFRY - CPAP at bedtime Morbid obesity - BMI 51.1 weight loss encouraged,cut down calories VTE prophylaxis: Pneumoboots, hold anticoagulant due to large perinephric hematoma sepsis and acute hypoxic respiratory failure secondary to pneumonia with a recent hospital stay concerning for hospital-acquired pneumonia, requiring admission for at least 2 midnights stay for IV antibiotics and monitoring. Quality Stroke Does the patient have a stroke diagnosis?: No VTE Prior VTE?: No VTE Risk Level:: Medical - moderate - high VTE Device Contraindication: N/A - Device Ordered VTE Drug Contraindication: Treatment Not Indicated
[2024-03-25] MEDS: Bumetanide 1 MG TABLET PO (16:54)
[2024-03-25] MEDS: Atorvastatin Calcium 80 MG TABLET PO (20:03)
[2024-03-25] MEDS: Doxazosin Mesylate 2 MG TABLET 8 MG PO (20:03)
[2024-03-25] MEDS: Melatonin 3 MG TABLET 6 MG PO (22:49)
[2024-03-25] MEDS: Zolpidem Tartrate 5 MG TABLET PO (22:49)
--- NOTE | 2024-03-25 23:04 | PC.RT ---
pt has refused cpap x3 nights in a row. therefore cpap order will be dc'd per policy
[2024-03-25] MEDS: LORazepam 2 MG/ML VIAL 1 MG IVPUSH (23:45)
[2024-03-26] VITALS (10 sets, daily range): BP systolic 115–147; BP diastolic 56–69; PULSE 76–106; RESP 16–20; TEMP 36–39.2; O2SAT 95–97
[2024-03-26] MEDS: Piperacillin Sodium/Tazobactam 4.5 GM in 0.9 % Sodium Chloride 100 ML IV ×4 (02:13→21:19)
--- NOTE | 2024-03-26 02:24 | PC.NURSE ---
Around 2330 on 03/25/24 pt c/o tremors - hands and legs shaking uncontrollably. [place] text to Dr. Owens and 1 mg IV ativan ordered and administered at 2345 with good effect. Will continue to monitor.
[2024-03-26] MEDS: Acetaminophen 325 MG TABLET 975 MG PO ×2 (04:24→16:15)
[2024-03-26] MEDS: Morphine Sulfate 2 MG/ML CARTRIDGE IVPUSH ×3 (05:37→21:26)
[2024-03-26 06:16] LABS: Basophils Percent Auto 0.1 % (0-2); Eosinophils Absolute Auto 0.1 X10*3/uL (0.0-0.4); Eosinophils Percent Auto 0.7 % (0-4); Hematocrit 36.5 % (42.0-52.0); Hemoglobin 12.3 g/dl (14.0-18.0); Lymphocytes Absolute Auto 1.5 X10*3/uL (1.2-4.9); Lymphocytes Percent Auto 7.3 % (20-40); MANUAL DIFF FLAG SCAN; Mean Corpuscular HGB Conc 33.7 g/dl (31.0-36.0); Mean Corpuscular Hemoglobin 32.9 pg (27.0-33.0); Mean Corpuscular Volume 97.6 fL (80.0-98.0); Mean Platelet Volume 10.2 fL (9.4-12.4); Monocytes Absolute Auto 1.6 X10*3/uL (0.1-1.2); Monocytes Percent Auto 7.8 % (2-11); Neutrophils Absolute Auto 16.7 x10*3/uL (2.0-8.3); Neutrophils Percent Auto 83.1 % (45-73); Platelet Count 347 X10*3/uL (160-400); Red Blood Count 3.74 X10*6/uL (4.60-5.80); Red Cell Distribution Width 13.6 % (11.0-16.0); SCAN SMEAR FLAG 1; White Blood Count 20.2 X10*3/uL (4.8-10.8)
[2024-03-26 06:43] LABS: Anion Gap 14 (12-20); Blood Urea Nitrogen 17 mg/dL (9-16); Calcium 8.3 mg/dL (8.4-10.2); Carbon Dioxide 23 mmol/L (22-29); Chloride 99 mmol/L (96-108); Creatinine Clr Calc Pharmacy 147.9; Estimated Glomerular Filt Rate > 60; Glucose Random 122 mg/dL (60-115); Potassium 3.4 mmol/L (3.3-5.1); Sodium 133 mmol/L (135-145)
[2024-03-26 07:34] LABS: SLIDE REVIEW VERIFIED
[2024-03-26] MEDS: 0.9 % Sodium Chloride Flush 3 ML SYRINGE IVFLUSH ×3 (08:05→21:20)
[2024-03-26] MEDS: Pregabalin 150 MG CAPSULE PO ×3 (08:06→21:26)
[2024-03-26] MEDS: rOPINIRole HCL 2 MG TABLET PO ×3 (08:06→21:26)
[2024-03-26] MEDS: Methenamine Hippurate 1 GM TABLET PO (08:06)
[2024-03-26] MEDS: Docusate Sodium 100 MG CAPSULE PO ×2 (08:07→21:26)
[2024-03-26] MEDS: Bumetanide 1 MG TABLET PO ×2 (08:07→16:15)
[2024-03-26] MEDS: oxyBUTYnin chloride ER 5 MG TAB.ER.24 10 MG PO (08:07)
[2024-03-26] MEDS: Finasteride 5 MG TABLET PO (08:07)
[2024-03-26] MEDS: Amiodarone HCL 200 MG TABLET PO (08:07)
[2024-03-26] MEDS: DULoxetine HCl 60 MG CAPSULE.DR PO (08:07)
[2024-03-26] MEDS: Ascorbic Acid 500 MG TABLET 1000 MG PO (08:07)
[2024-03-26] MEDS: Lidocaine 4 % Patch ADH..PATCH 1 PATCH TRANSDERMA (08:11)
[2024-03-26] MEDS: Nystatin Oral Susp 500,000 UNIT/5 ML ORAL.SUSP 400000 UNIT BUCCAL ×3 (08:11→21:26)
[2024-03-26] MEDS: Ammonium Lactate 12 % Lotion 226 GM BOTTLE 1 APPL TOPICAL (08:12)
[2024-03-26] MEDS: Doxycycline Hyclate 100 MG in 0.9 % Sodium Chloride 250 ML 166.67 MG IV ×2 (08:40→21:57)
--- NOTE | 2024-03-26 12:39 | MHC.CM.PN ---
Per MD rounds no discharge today. consult ordered and they are following Hematoma, with question of underlying mass. DP home with resumption of [facility]. Patients will provide transportation home.
--- NOTE | 2024-03-26 14:42 | HO.PM.IMPN ---
Subjective Subjective Date of Service: 03/26/24 Interval History: copd,Perinephric hematoma Review of Systems sob somewhat improving still has similar pain Physical Exam Vital Signs: Vital Signs: Last Vital Signs Temp 97.6 F 03/26/24 12:00 Pulse 76 03/26/24 13:12 Resp 20 03/26/24 12:00 BP 125/57 L 03/26/24 13:12 Pulse Ox 95 03/26/24 13:12 O2 Del Method Nasal Cannula 03/26/24 12:00 O2 Flow Rate 3.0 03/26/24 12:00 Oxygen Flow Rate 6 03/24/24 11:15 BMI result Body Mass Index 51.2 Appearance: Alert.? Oriented X3.? cvs: rrr, [id number] . res: air entry dimished ,few rhonchii abd: no rebound or guarding ,nt, bs present. ext pulses present , no cyanosis. neuro: axo3 , nonfocal. Objective Data Active Medications Acetaminophen (Acetaminophen 325 Mg Tablet) 975 mg PO Q6H [facility] Last Admin: 03/26/24 10:15 Dose: Not Given Documented By: CHERYLE Non-Admin Reason: over the limit Amiodarone HCl (Amiodarone Hcl 200 Mg Tablet) 200 mg PO DAILY [facility] Last Admin: 03/26/24 08:07 Dose: 200 mg Documented By: CHERYLE Ascorbic Acid (Ascorbic Acid 500 Mg Tablet) 1,000 mg PO DAILY [facility] Last Admin: 03/26/24 08:07 Dose: 1,000 mg Documented By: CHERYLE Atorvastatin Calcium (Atorvastatin Calcium 80 Mg Tablet) 80 mg PO BEDTIME [facility] Last Admin: 03/25/24 20:03 Dose: 80 mg Documented By: MONICA Bumetanide (Bumetanide 1 Mg Tablet) 1 mg PO BID@0800,1700 [facility]; Protocol Last Admin: 03/26/24 08:07 Dose: 1 mg Documented By: CHERYLE Calcium Carbonate (Calcium Carbonate 750 Mg Tab.Chew) 750 mg PO Q4H PRN PRN Reason: Heartburn Docusate Sodium (Docusate Sodium 100 Mg Capsule) 100 mg PO BID [facility] Last Admin: 03/26/24 08:07 Dose: 100 mg Documented By: CHERYLE Doxazosin Mesylate (Doxazosin Mesylate 2 Mg Tablet) 8 mg PO BEDTIME [facility]; Protocol Last Admin: 03/25/24 20:03 Dose: 8 mg Documented By: MONICA Duloxetine HCl (Duloxetine Hcl 60 Mg Capsule.) 60 mg PO DAILY [facility] Last Admin: 03/26/24 08:07 Dose: 60 mg Documented By: CHERYLE Finasteride (Finasteride 5 Mg Tablet) 5 mg PO DAILY [facility] Last Admin: 03/26/24 08:07 Dose: 5 mg Documented By: CHERYLE Piperacillin Sod/Tazobactam (Sod 4.5 gm/ Sodium Chloride) 100 mls @ 200 mls/hr IV Q6H [facility] Last Infusion: 03/26/24 08:43 Dose: Infused Documented By: CHERYLE Doxycycline Hyclate 100 mg/ (Sodium Chloride) 250 mls @ 166.67 mls/hr IV Q12H [facility] Last Infusion: 03/26/24 10:20 Dose: Infused Documented By: CHERYLE Lactic Acid (Ammonium Lactate 12 % Lotion 226 Gm Bottle) 1 appl TOPICAL DAILY [facility]; Protocol Last Admin: 03/26/24 08:12 Dose: 1 appl Documented By: CHERYLE Lidocaine (Lidocaine 4 % Patch Adh..Patch) 1 patch TRANSDERMA DAILY [facility]; Protocol Last Admin: 03/26/24 08:11 Dose: 1 patch Documented By: CHERYLE Magnesium Hydroxide (Milk Of Magnesia 30 Ml Oral.Susp) 30 ml PO DAILY PRN PRN Reason: Constipation Melatonin (Melatonin 3 Mg Tablet) 6 mg PO BEDTIME PRN PRN Reason: Insomnia Last Admin: 03/25/24 22:49 Dose: 6 mg Documented By: MONICA Methenamine Hippurate (Methenamine Hippurate 1 Gm Tablet) 1 gm PO DAILY [facility] Last Admin: 03/26/24 08:06 Dose: 1 gm Documented By: CHERYLE Morphine Sulfate (Morphine Sulfate 2 Mg/Ml Cartridge) 2 mg IVPUSH Q6H PRN; Protocol PRN Reason: Pain, Severe (Pain Scale 7-10) Last Admin: 03/26/24 11:31 Dose: 2 mg Documented By: CHERYLE Patient Own Med ( Umeclidinium- Vilanterol [Anoro Ellipta] 62.5-25 Mcg /Actuation Bl 1 inhalation PO RDAILY [facility] Nystatin (Nystatin Oral Susp 500,000 Unit/5 Ml Oral.Susp) 400,000 unit BUCCAL TID [facility]; Protocol Last Admin: 03/26/24 08:11 Dose: 400,000 unit Documented By: CHERYLE Ondansetron HCl (Ondansetron Hcl 4 Mg/2 Ml Vial) 4 mg IVPUSH Q8H PRN PRN Reason: Nausea and Vomiting Oxybutynin Chloride (Oxybutynin Chloride Er 5 Mg Tab.Er.24) 10 mg PO DAILY [facility] Last Admin: 03/26/24 08:07 Dose: 10 mg Documented By: CHERYLE Polyethylene Glycol (Polyethylene Glycol 3350 17 Gm Powd.Pack) 17 gm PO DAILY PRN PRN Reason: Constipation Pregabalin (Pregabalin 150 Mg Capsule) 150 mg PO TID [facility] Last Admin: 03/26/24 08:06 Dose: 150 mg Documented By: CHERYLE Ropinirole HCl (Ropinirole Hcl 2 Mg Tablet) 2 mg PO TID [facility] Last Admin: 03/26/24 08:06 Dose: 2 mg Documented By: CHERYLE Sodium Chloride (0.9 % Sodium Chloride Flush 3 Ml Syringe) 3 ml IVFLUSH QSHIFT [facility] Last Admin: 03/26/24 08:05 Dose: 3 ml Documented By: CHERYLE Zolpidem Tartrate (Zolpidem Tartrate 5 Mg Tablet) 5 mg PO BEDTIME PRN PRN Reason: sleep Last Admin: 03/25/24 22:49 Dose: 5 mg Documented By: VALARIEQC Labs 03/26/24 05:46 03/26/24 05:46 Labs: Laboratory Results - last 24 hr 03/26/24 05:46 MCV 97.6 MCH 32.9 MCHC 33.7 RDW 13.6 Plt Count 347 MPV 10.2 Immature Gran % (Auto) 1.0 H Neut % (Auto) 83.1 H Lymph % (Auto) 7.3 L [place] % (Auto) 7.8 Eos % (Auto) 0.7 Baso % (Auto) 0.1 Lymph # (Auto) 1.5 [place] # (Auto) 1.6 H Eos # (Auto) 0.1 Baso # (Auto) 0.0 Abs Immat Gran (auto) 0.20 H Absolute Neuts (auto) 16.7 H Absolute Nucleated RBC 0.000 Nucleated RBC % (auto) 0.0 Smear Tech's Comments VERIFIED Anion Gap 14 Estim Creat Clear Calc 147.9 Estimated GFR > 60 Random Glucose 122 H Calcium 8.3 L Microbiology Microbiology Results: Microbiology 03/24/24 12:22 Blood Culture - Final Blood - Venous Coag negative Staphylococcus 03/24/24 12:21 Blood Culture - Preliminary Blood - Venous No growth after 24 hours. Assessment and Plan (1) Perinephric hematoma: Status: Acute (2) Acute respiratory failure: Status: Acute (3) Pneumonia: Status: Acute Assessment and Plan: 69 year male with a past medical history significant for paroxysmal AFib on Eliquis and amiodarone, HFpEF, lymphedema with chronic venous stasis, HTN, COPD on 3 L home O2, JEFFRY on CPAP, seronegative RA,, overactive bladder and morbid obesity, who presented to the ED after an episode of rigors and weakness today. Workup consistent with sepsis secondary to pneumonia and incidental finding of large 13.3cm perinephric hematoma. sepsis and acute respiratory failure secondary to pneumonia Leukocytosis improving, no fever, tachycardia resolved. blood cultures x2 pending, not severe sepsis chest x-ray with questionable small bilateral pleural effusions/chest CT with bilateral pneumonia 1/2 blood cultures positive :staph coagulase negative plan: continue Zosyn and doxycycline due to recent hospital stay to cover hospital acquired pneumonia d/w id -blood culture likely contiminant -continue current antibiotics Perinephric hematoma, left kidney- incidental finding on chest CT of left perinephric hematoma follow-up abdominopelvic CT with large left 13.3 cm perinephric hematoma - hold Eliquis for nowand monitor H&H added lidocaine patch ,morphine ,tylenol,bowel regimen urology eval- pain control,holding anticoagulation for 3-4 weeks Paroxysmal AFib- hold Eliquis as above. continue amiodarone HFpEF-euvolemia continue bumex. Lymphedema with chronic venous stasis - continue home meds HTN - mild hypotension continue home meds when appropriate COPD, no acute exacerbation - no wheezing on exam - continue home meds JEFFRY - CPAP at bedtime Morbid obesity - BMI 51.1 weight loss encouraged,cut down calories VTE prophylaxis: Pneumoboots, hold anticoagulant due to large perinephric hematoma sepsis and acute hypoxic respiratory failure secondary to pneumonia with a recent hospital stay concerning for hospital-acquired pneumonia, requiring admission for at least 2 midnights stay for IV antibiotics and monitoring. Quality Stroke Does the patient have a stroke diagnosis?: No VTE Prior VTE?: No VTE Risk Level:: Medical - moderate - high VTE Device Contraindication: N/A - Device Ordered VTE Drug Contraindication: Treatment Not Indicated
[2024-03-26] MEDS: ACTUATION BL PO (14:46)
[2024-03-26] MEDS: UMECLIDINIUM VILANTEROL PO (14:46)
[2024-03-26] MEDS: Milk of Magnesia 30 ML ORAL.SUSP PO (18:32)
[2024-03-26] MEDS: Atorvastatin Calcium 80 MG TABLET PO (21:25)
[2024-03-26] MEDS: Doxazosin Mesylate 2 MG TABLET 8 MG PO (21:25)
[2024-03-26] MEDS: Melatonin 3 MG TABLET 6 MG PO (21:25)
--- NOTE | 2024-03-26 22:42 | W.PM.IDCN ---
History of Present Illness Data of Consult Service Date: 03/26/24 Requesting physician: Willie Harris Primary Care Provider: Diego Augustine [facility] HPI Reason for consult: pneumonia,bacteremia He presents with weakness and shaking for last two days. He has lower lung consolidation. He has no fever or chills. Blood culture 1/2 coagulase negative staph. Review of Systems Review of Systems: Yes all other systems are reviewed and are negative [facility] Past Medical History Medical History Sepsis COPD (chronic obstructive pulmonary disease) Acute respiratory failure due to COVID-19 Community acquired pneumonia Viral sepsis Fatigue Acute on chronic diastolic CHF (congestive heart failure) COVID Morbid obesity Paroxysmal atrial fibrillation Congestive heart failure Testicular swelling Osteoarthritis of right knee Melanoma History of cardioversion Hereditary lymphedema Venous insufficiency Morbid obesity Lymphedema COPD (chronic obstructive pulmonary disease) Sensory neuropathy COVID-19 Respiratory failure with hypoxia Restrictive lung disease JEFFRY on CPAP MATUTE (dyspnea on exertion) Chronic cystitis Bladder outlet obstruction Restless leg syndrome Traumatic complete tear of right rotator cuff Injury of right rotator cuff History of diverticulitis History of umbilical hernia Family History Family History Father Arthritis Diabetes Mother Arthritis Kidney stones Family/Other Arthritis Sister No problems noted. Sister No problems noted. Son No problems noted. Surgical History Surgical History Hx of colonoscopy History of appendectomy History of arthroscopy of left knee Social History Social History Household Members: Spouse Household Members Other:: Housing: Condominium Do you presently have visiting nurse or other home services: Yes (PT at house.) Unable to assess alcohol history related to: Unknown Alcohol intake: current Alcohol intake frequency: 0-2 drinks per day Alcohol type: beer Comment: refusing bed alarm Patient Tobacco Use Status: Former Tobacco user Tobacco use type: Cigarette Cigarette Packs Per Day: 1 Cigarettes Per Day: 20.0 Years Smoked: 30 years Smoked in Last 30 Days: No e-Cigarette/Vaping Use: Never Used Second Hand Smoke Exposure: No Use of substances other than those prescribed or required for medical reasons: No Substance Use Type: Marijuana Currently Displaying Signs/Symptoms of Drug Intoxication Withdrawal: No Have you been hit, kicked, punched, or otherwise hurt by someone within the past year? If so, by whom?: No Do you feel safe in your current relationship?: Yes Is there a partner from a previous relationship who is making you feel unsafe now?: No Are you made to feel afraid or neglected: No Advance Directives: Yes Advance Directives on File: Yes Advance Directives Date on File: 05/16/20 Do you have a plan to hurt others: No Plan Recently lost weight without trying: No How much weight loss: Not applicable Eating poorly because of decreased appetite: No Nutrition screen score: 0 Nutrition Risks: No Nutritional Risk Poor oral hygiene: No service: No Current occupational status: retired 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 Cognitive needs: No Hearing needs: No Vision needs: No Meds Allergies Allergy/AdvReac Type Severity Reaction Status Date / Time No Known Allergies Allergy Verified 03/24/24 11:56 [No Known Allergies*] Active Medications: Current Medications Acetaminophen (Acetaminophen 325 Mg Tablet) 975 mg PO Q6H [facility] Last Admin: 03/26/24 22:22 Dose: Not Given Amiodarone HCl (Amiodarone Hcl 200 Mg Tablet) 200 mg PO DAILY [facility] Last Admin: 03/26/24 08:07 Dose: 200 mg Ascorbic Acid (Ascorbic Acid 500 Mg Tablet) 1,000 mg PO DAILY [facility] Last Admin: 03/26/24 08:07 Dose: 1,000 mg Atorvastatin Calcium (Atorvastatin Calcium 80 Mg Tablet) 80 mg PO BEDTIME [facility] Last Admin: 03/26/24 21:25 Dose: 80 mg Bumetanide (Bumetanide 1 Mg Tablet) 1 mg PO BID@0800,1700 [facility]; Protocol Last Admin: 03/26/24 16:15 Dose: 1 mg Calcium Carbonate (Calcium Carbonate 750 Mg Tab.Chew) 750 mg PO Q4H PRN PRN Reason: Heartburn Docusate Sodium (Docusate Sodium 100 Mg Capsule) 100 mg PO BID [facility] Last Admin: 03/26/24 21:26 Dose: 100 mg Doxazosin Mesylate (Doxazosin Mesylate 2 Mg Tablet) 8 mg PO BEDTIME [facility]; Protocol Last Admin: 03/26/24 21:25 Dose: 8 mg Duloxetine HCl (Duloxetine Hcl 60 Mg Capsule.Dr) 60 mg PO DAILY [facility] Last Admin: 03/26/24 08:07 Dose: 60 mg Finasteride (Finasteride 5 Mg Tablet) 5 mg PO DAILY [facility] Last Admin: 03/26/24 08:07 Dose: 5 mg Piperacillin Sod/Tazobactam (Sod 4.5 gm/ Sodium Chloride) 100 mls @ 200 mls/hr IV Q6H [facility] Last Infusion: 03/26/24 21:51 Dose: Infused Doxycycline Hyclate 100 mg/ (Sodium Chloride) 250 mls @ 166.67 mls/hr IV Q12H [facility] Last Admin: 03/26/24 21:57 Dose: 166.67 mls/hr Lactic Acid (Ammonium Lactate 12 % Lotion 226 Gm Bottle) 1 appl TOPICAL DAILY [facility]; Protocol Last Admin: 03/26/24 08:12 Dose: 1 appl Lidocaine (Lidocaine 4 % Patch Adh..Patch) 1 patch TRANSDERMA DAILY [facility]; Protocol Last Admin: 03/26/24 08:11 Dose: 1 patch Magnesium Hydroxide (Milk Of Magnesia 30 Ml Oral.Susp) 30 ml PO DAILY PRN PRN Reason: Constipation Melatonin (Melatonin 3 Mg Tablet) 6 mg PO BEDTIME PRN PRN Reason: Insomnia Last Admin: 03/26/24 21:25 Dose: 6 mg Methenamine Hippurate (Methenamine Hippurate 1 Gm Tablet) 1 gm PO DAILY [facility] Last Admin: 03/26/24 08:06 Dose: 1 gm Morphine Sulfate (Morphine Sulfate 2 Mg/Ml Cartridge) 2 mg IVPUSH Q6H PRN; Protocol PRN Reason: Pain, Severe (Pain Scale 7-10) Last Admin: 03/26/24 21:26 Dose: 2 mg Patient Own Med ( Umeclidinium- Vilanterol [Anoro Ellipta] 62.5-25 Mcg /Actuation Bl 1 inhalation PO RDAILY [facility] Last Admin: 03/26/24 14:46 Dose: 1 inhalation Nystatin (Nystatin Oral Susp 500,000 Unit/5 Ml Oral.Susp) 400,000 unit BUCCAL TID [facility]; Protocol Last Admin: 03/26/24 21:26 Dose: 400,000 unit Ondansetron HCl (Ondansetron Hcl 4 Mg/2 Ml Vial) 4 mg IVPUSH Q8H PRN PRN Reason: Nausea and Vomiting Oxybutynin Chloride (Oxybutynin Chloride Er 5 Mg Tab.Er.24) 10 mg PO DAILY [facility] Last Admin: 03/26/24 08:07 Dose: 10 mg Polyethylene Glycol (Polyethylene Glycol 3350 17 Gm Powd.Pack) 17 gm PO DAILY PRN PRN Reason: Constipation Pregabalin (Pregabalin 150 Mg Capsule) 150 mg PO TID [facility] Last Admin: 03/26/24 21:26 Dose: 150 mg Ropinirole HCl (Ropinirole Hcl 2 Mg Tablet) 2 mg PO TID [facility] Last Admin: 03/26/24 21:26 Dose: 2 mg Sodium Chloride (0.9 % Sodium Chloride Flush 3 Ml Syringe) 3 ml IVFLUSH QSHIFT [facility] Last Admin: 03/26/24 21:20 Dose: 3 ml Zolpidem Tartrate (Zolpidem Tartrate 5 Mg Tablet) 5 mg PO BEDTIME PRN PRN Reason: sleep Last Admin: 03/25/24 22:49 Dose: 5 mg Home Medications ?Medication ?Instructions ?Recorded ?Confirmed ?Last Taken ?Type albuterol sulfate 90 mcg/actuation 2 puff PO Q6H PRN for wheezing 10/13/22 03/24/24 Unknown History aerosol inhaler ammonium lactate 12 % lotion 1 appl topical DAILY 11/20/23 03/24/24 03/24/24 History oxybutynin chloride 10 mg 10 mg PO DAILY 02/19/24 03/24/24 03/24/24 History tablet,extended release 24 hr spironolactone 25 mg tablet 25 mg PO DAILY 03/14/24 03/24/24 03/24/24 History Physical Exam Vital Signs: Vital Signs: Last Vital Signs Temp 96.8 F 03/26/24 19:19 Pulse 91 03/26/24 19:19 Resp 16 03/26/24 19:19 BP 117/56 L 03/26/24 21:25 Pulse Ox 95 03/26/24 19:19 O2 Del Method Nasal Cannula 03/26/24 19:19 O2 Flow Rate 3 03/26/24 19:19 Oxygen Flow Rate 6 03/24/24 11:15 BMI result Body Mass Index 51.2 Const: General: cooperative HEENT: Head: Yes normal to inspection Face and sinus: Yes normal facial exam Mouth: Normal oral and palatal mucosa present Teeth and gingiva: dentition normal Eyes: General: appearance normal, both eyes and all related structures Pupils: Equal, round and reactive pupils present Resp: Other: decreased breath sounds bases Cardio: Rate: regular rate Rhythm: regular rhythm GI: Palpation (GI): Soft to palpation and nontender : General: Yes no CVA tenderness Back/Spine/Pelvis: Back: no CVA tenderness Skin: General skin exam: no rashes or lesions noted Neuro: General: moves all extremities Cranial nerves: Yes Equal, round and reactive pupils present Extrem: General: Yes normal to inspection Psych: Appearance: grossly normal Results Labs 03/26/24 05:46 03/26/24 05:46 Labs: Short CBC 03/26/24 Range/Units 05:46 WBC 20.2 H (4.8-10.8) X10*3/uL Hgb 12.3 L (14.0-18.0) g/dl Hct 36.5 L (42.0-52.0) % Plt Count 347 (160-400) X10*3/uL BMP 03/26/24 05:46 Sodium 133 L Potassium 3.4 Chloride 99 Carbon Dioxide 23 BUN 17 H Creatinine 0.88 Calcium 8.3 L Microbiology Microbiology Results: Microbiology 03/24/24 12:21 Blood - Venous Blood Culture - Preliminary No growth after 48 hours. 03/24/24 12:22 Blood - Venous Blood Culture - Final Coag negative Staphylococcus Assessment and Plan (1) Perinephric hematoma: Status: Acute (2) Pneumonia: Status: Acute Plan Can switch to oral cephalosporins as well as Doxycycline for a week. No need to treat coagulase negative staph as is contaminant.
[2024-03-27] VITALS (8 sets, daily range): BP systolic 104–135; BP diastolic 53–69; PULSE 67–86; RESP 18–24; TEMP 36.1–37.1; O2SAT 94–96
[2024-03-27] MEDS: HYDROmorphone HCl 0.5 MG/0.5 ML SYRINGE IVPUSH (01:14)
[2024-03-27] MEDS: ondansetron HCL 4 MG/2 ML VIAL IVPUSH (01:18)
[2024-03-27] MEDS: Piperacillin Sodium/Tazobactam 4.5 GM in 0.9 % Sodium Chloride 100 ML IV ×4 (03:30→20:43)
[2024-03-27] MEDS: Acetaminophen 325 MG TABLET 975 MG PO ×4 (03:31→21:34)
--- NOTE | 2024-03-27 03:48 | PC.NURSE ---
Pt woke up after 12mn and c/o 10/10 serina leg pain, repositioned, warm blanket applied with minimal effect,prn Morphine not due yet, Dr. Owens was made aware, Dilaudid 0.5 mg Iv given, with favorable relief after, felt nauseous after, prn Zofran Iv given, with good effect.
[2024-03-27 06:57] LABS: Hematocrit 35.2 % (42.0-52.0); Hemoglobin 11.8 g/dl (14.0-18.0); Mean Corpuscular HGB Conc 33.5 g/dl (31.0-36.0); Mean Corpuscular Hemoglobin 32.7 pg (27.0-33.0); Mean Corpuscular Volume 97.5 fL (80.0-98.0); Mean Platelet Volume 10.1 fL (9.4-12.4); Platelet Count 390 X10*3/uL (160-400); Red Blood Count 3.61 X10*6/uL (4.60-5.80); Red Cell Distribution Width 13.4 % (11.0-16.0)
[2024-03-27 06:58] LABS: Basophils Absolute Auto 0.1 X10*3/uL (0.0-0.2); Basophils Percent Auto 0.3 % (0-2); Eosinophils Absolute Auto 0.1 X10*3/uL (0.0-0.4); Eosinophils Percent Auto 0.5 % (0-4); Hematocrit 35.1 % (42.0-52.0); Hemoglobin 11.8 g/dl (14.0-18.0); Imm Gran Abs Auto 0.16 X10*3/uL (0.00-0.03); Imm Gran Pct Auto 0.8 % (0.0-0.4); Lymphocytes Absolute Auto 1.6 X10*3/uL (1.2-4.9); Lymphocytes Percent Auto 8.1 % (20-40); MANUAL DIFF FLAG SCAN; Mean Corpuscular HGB Conc 33.6 g/dl (31.0-36.0); Mean Corpuscular Hemoglobin 33.1 pg (27.0-33.0); Mean Corpuscular Volume 98.3 fL (80.0-98.0); Mean Platelet Volume 10.1 fL (9.4-12.4); Monocytes Absolute Auto 1.8 X10*3/uL (0.1-1.2); Monocytes Percent Auto 9.4 % (2-11); Neutrophils Absolute Auto 15.7 x10*3/uL (2.0-8.3); Neutrophils Percent Auto 80.9 % (45-73); Platelet Count 393 X10*3/uL (160-400); Red Blood Count 3.57 X10*6/uL (4.60-5.80); Red Cell Distribution Width 13.4 % (11.0-16.0); SCAN SMEAR FLAG 1; White Blood Count 19.4 X10*3/uL (4.8-10.8)
[2024-03-27 07:24] LABS: SLIDE REVIEW VERIFIED
[2024-03-27] MEDS: Methenamine Hippurate 1 GM TABLET PO (08:06)
[2024-03-27] MEDS: Pregabalin 150 MG CAPSULE PO ×3 (08:06→20:49)
[2024-03-27] MEDS: oxyBUTYnin chloride ER 5 MG TAB.ER.24 10 MG PO (08:07)
[2024-03-27] MEDS: rOPINIRole HCL 2 MG TABLET PO ×3 (08:08→20:50)
[2024-03-27] MEDS: Finasteride 5 MG TABLET PO (08:08)
[2024-03-27] MEDS: Amiodarone HCL 200 MG TABLET PO (08:08)
[2024-03-27] MEDS: Ascorbic Acid 500 MG TABLET 1000 MG PO (08:08)
[2024-03-27] MEDS: Docusate Sodium 100 MG CAPSULE PO ×2 (08:08→20:49)
[2024-03-27] MEDS: DULoxetine HCl 60 MG CAPSULE.DR PO (08:08)
[2024-03-27] MEDS: Lidocaine 4 % Patch ADH..PATCH 1 PATCH TRANSDERMA (08:10)
[2024-03-27] MEDS: 0.9 % Sodium Chloride Flush 3 ML SYRINGE IVFLUSH ×2 (08:11→20:43)
[2024-03-27] MEDS: Doxycycline Hyclate 100 MG in 0.9 % Sodium Chloride 250 ML 166.67 MG IV ×2 (08:13→21:29)
[2024-03-27] MEDS: Ammonium Lactate 12 % Lotion 226 GM BOTTLE 1 APPL TOPICAL (08:19)
[2024-03-27 08:23] LABS: Blood Urea Nitrogen 14 mg/dL (9-16); Calcium 8.3 mg/dL (8.4-10.2); Estimated Glomerular Filt Rate > 60; Glucose Random 101 mg/dL (60-115)
[2024-03-27] MEDS: Milk of Magnesia 30 ML ORAL.SUSP PO (08:23)
[2024-03-27] MEDS: UMECLIDINIUM VILANTEROL PO (08:27)
[2024-03-27] MEDS: ACTUATION BL PO (08:27)
[2024-03-27 08:29] LABS: Adenovirus PCR Not Detected (Not Detect.); Bordetella parapertussis PCR Not Detected (Not Detect.); Bordetella pertussis PCR Not Detected (Not Detect.); Chlamydia pneumoniae PCR Not Detected (Not Detect.); Coronavirus 229E PCR Not Detected (Not Detect.); Coronavirus HKU1 PCR Not Detected (Not Detect.); Coronavirus NL63 PCR Not Detected (Not Detect.); Coronavirus OC43 PCR Not Detected (Not Detect.); Human metapneumovirus PCR Not Detected (Not Detect.); Influenza A PCR Not Detected (Not Detect.); Influenza B PCR Not Detected (Not Detect.); Mycoplasma pneumoniae PCR Not Detected (Not Detect.); Parainfluenza 1 PCR Not Detected (Not Detect.); Parainfluenza 2 PCR Not Detected (Not Detect.); Parainfluenza 3 PCR Not Detected (Not Detect.); Parainfluenza 4 PCR Not Detected (Not Detect.); RSV PCR Not Detected (Not Detect.); Rhino/Enterovirus PCR Not Detected (Not Detect.)
[2024-03-27 08:32] LABS: SARS-CoV-2 PCR Not Detected (Not Detect.)
[2024-03-27 08:35] LABS: Anion Gap 15 (12-20); Carbon Dioxide 28 mmol/L (22-29); Chloride 97 mmol/L (96-108); Potassium 3.8 mmol/L (3.3-5.1); Sodium 136 mmol/L (135-145)
[2024-03-27] MEDS: oxyCODONE HCl Immed Release 5 MG TABLET PO ×3 (09:34→20:49)
--- NOTE | 2024-03-27 11:47 | P.PNIM_ITS ---
Subjective Subjective Date of Service: 03/27/24 Interval History: copd ,hematoma Review of Systems has significant pain but somewhat improving slowly has cough sob improving Physical Exam 2 Vital Signs: Vital Signs: Last Vital Signs Temp 97 F 03/27/24 07:34 Pulse 71 03/27/24 08:27 Resp 18 03/27/24 07:34 BP 106/54 L 03/27/24 08:27 Pulse Ox 96 03/27/24 07:34 O2 Del Method Nasal Cannula 03/27/24 07:34 O2 Flow Rate 3 03/27/24 07:34 Oxygen Flow Rate 6 03/24/24 11:15 BMI result Body Mass Index 51.2 Appearance: Alert.? Oriented X3.? cvs: rrr, [id number] . res: air entry dimished ,few rhonchii abd: no rebound or guarding ,nt, bs present. ext pulses present , no cyanosis. neuro: axo3 , nonfocal. Objective Data Active Medications Acetaminophen (Acetaminophen 325 Mg Tablet) 975 mg PO Q6H [facility] Last Admin: 03/27/24 09:34 Dose: 975 mg Documented By: MAHESH Amiodarone HCl (Amiodarone Hcl 200 Mg Tablet) 200 mg PO DAILY [facility] Last Admin: 03/27/24 08:08 Dose: 200 mg Documented By: MAHESH Ascorbic Acid (Ascorbic Acid 500 Mg Tablet) 1,000 mg PO DAILY [facility] Last Admin: 03/27/24 08:08 Dose: 1,000 mg Documented By: MAHESH Atorvastatin Calcium (Atorvastatin Calcium 80 Mg Tablet) 80 mg PO BEDTIME [facility] Last Admin: 03/26/24 21:25 Dose: 80 mg Documented By: CASTILM Bumetanide (Bumetanide 1 Mg Tablet) 1 mg PO BID@0800,1700 [facility]; Protocol Last Admin: 03/27/24 08:28 Dose: Not Given Documented By: MAHESH Non-Admin Reason: held for BP 106/54 Calcium Carbonate (Calcium Carbonate 750 Mg Tab.Chew) 750 mg PO Q4H PRN PRN Reason: Heartburn Docusate Sodium (Docusate Sodium 100 Mg Capsule) 100 mg PO BID [facility] Last Admin: 03/27/24 08:08 Dose: 100 mg Documented By: MAHESH Doxazosin Mesylate (Doxazosin Mesylate 2 Mg Tablet) 8 mg PO BEDTIME [facility]; Protocol Last Admin: 03/26/24 21:25 Dose: 8 mg Documented By: GUERRERO Duloxetine HCl (Duloxetine Hcl 60 Mg Capsule.Dr) 60 mg PO DAILY [facility] Last Admin: 03/27/24 08:08 Dose: 60 mg Documented By: MAHESH Finasteride (Finasteride 5 Mg Tablet) 5 mg PO DAILY [facility] Last Admin: 03/27/24 08:08 Dose: 5 mg Documented By: MAHESH Guaifenesin/Codeine Phosphate (Guaifen/Codeine Sf 200/20/10ml 10 Ml Liquid) 10 ml PO Q4H PRN PRN Reason: Cough Hydromorphone HCl (Hydromorphone Hcl 0.5 Mg/0.5 Ml Syringe) 0.5 mg IVPUSH Q4H PRN; Protocol PRN Reason: Pain, Severe (Pain Scale 7-10) Piperacillin Sod/Tazobactam (Sod 4.5 gm/ Sodium Chloride) 100 mls @ 200 mls/hr IV Q6H [facility] Last Infusion: 03/27/24 08:47 Dose: Infused Documented By: MAHESH Doxycycline Hyclate 100 mg/ (Sodium Chloride) 250 mls @ 166.67 mls/hr IV Q12H [facility] Last Infusion: 03/27/24 10:36 Dose: Infused Documented By: MAHESH Lactic Acid (Ammonium Lactate 12 % Lotion 226 Gm Bottle) 1 appl TOPICAL DAILY [facility]; Protocol Last Admin: 03/27/24 08:19 Dose: 1 appl Documented By: MAHESH Lidocaine (Lidocaine 4 % Patch Adh..Patch) 1 patch TRANSDERMA DAILY [facility]; Protocol Last Admin: 03/27/24 08:10 Dose: 1 patch Documented By: MAHESH Magnesium Hydroxide (Milk Of Magnesia 30 Ml Oral.Susp) 30 ml PO DAILY PRN PRN Reason: Constipation Last Admin: 03/27/24 08:23 Dose: 30 ml Documented By: MAHESH Melatonin (Melatonin 3 Mg Tablet) 6 mg PO BEDTIME PRN PRN Reason: Insomnia Last Admin: 03/26/24 21:25 Dose: 6 mg Documented By: GUERRERO Methenamine Hippurate (Methenamine Hippurate 1 Gm Tablet) 1 gm PO DAILY [facility] Last Admin: 03/27/24 08:06 Dose: 1 gm Documented By: MAHESH Patient Own Med ( Umeclidinium- Vilanterol [Anoro Ellipta] 62.5-25 Mcg /Actuation Bl 1 inhalation PO RDAILY [facility] Last Admin: 03/27/24 08:27 Dose: 1 inhalation Documented By: MAHESH Nystatin (Nystatin Oral Susp 500,000 Unit/5 Ml Oral.Susp) 400,000 unit BUCCAL TID [facility]; Protocol Last Admin: 03/27/24 08:53 Dose: Not Given Documented By: MAHESH Non-Admin Reason: Patient Refused Ondansetron HCl (Ondansetron Hcl 4 Mg/2 Ml Vial) 4 mg IVPUSH Q8H PRN PRN Reason: Nausea and Vomiting Last Admin: 03/27/24 01:18 Dose: 4 mg Documented By: CASTILMusa Oxybutynin Chloride (Oxybutynin Chloride Er 5 Mg Tab.Er.24) 10 mg PO DAILY [facility] Last Admin: 03/27/24 08:07 Dose: 10 mg Documented By: MAHESH Oxycodone HCl (Oxycodone Hcl Immed Release 5 Mg Tablet) 5 mg PO Q4H PRN PRN Reason: Pain, Moderate(Pain Scale 4-6) Last Admin: 03/27/24 09:34 Dose: 5 mg Documented By: MAHESH Polyethylene Glycol (Polyethylene Glycol 3350 17 Gm Powd.Pack) 17 gm PO DAILY PRN PRN Reason: Constipation Pregabalin (Pregabalin 150 Mg Capsule) 150 mg PO TID [facility] Last Admin: 03/27/24 08:06 Dose: 150 mg Documented By: MAHESH Ropinirole HCl (Ropinirole Hcl 2 Mg Tablet) 2 mg PO TID [facility] Last Admin: 03/27/24 08:08 Dose: 2 mg Documented By: MAHESH Sodium Biphosphate/Sodium Phosphate (Sodium Phosphate,[place]-Dibasic 133 Ml Enema) 133 ml [place] ONCE PRN PRN Reason: Constipation Sodium Chloride (0.9 % Sodium Chloride Flush 3 Ml Syringe) 3 ml IVFLUSH QSHIFT [facility] Last Admin: 03/27/24 08:11 Dose: 3 ml Documented By: MAHESH Zolpidem Tartrate (Zolpidem Tartrate 5 Mg Tablet) 5 mg PO BEDTIME PRN PRN Reason: sleep Last Admin: 03/25/24 22:49 Dose: 5 mg Documented By: MONICA Labs 03/27/24 06:02 03/27/24 06:02 Labs: Laboratory Results - last 24 hr 03/26/24 03/27/24 03/27/24 17:25 06:02 06:02 MCV 98.3 H 97.5 MCH 33.1 H MCHC RDW Plt Count MPV Immature Gran % (Auto) Neut % (Auto) Lymph % (Auto) [place] % (Auto) Eos % (Auto) Baso % (Auto) Lymph # (Auto) [place] # (Auto) Eos # (Auto) Baso # (Auto) Abs Immat Gran (auto) Absolute Neuts (auto) Absolute Nucleated RBC Nucleated RBC % (auto) Smear Tech's Comments Anion Gap Estim Creat Clear Calc Estimated GFR Random Glucose Calcium Respiratory Panel [place] See Note Adenovirus (Rapid PCR) Not Detected B.pert (TEM-PCR) Not Detected B.parapertussis DNA PCR Not Detected C. pneumoniae DNA (PCR) Not Detected Coronavirus OC43 (PCR) Not Detected Coronavirus HKU1 (PCR) Not Detected Coronavirus 229E (PCR) Not Detected Coronavirus NL63 (PCR) Not Detected Human Metapneumovir PCR Not Detected Influenza A (RT-PCR) Not Detected Influenza B (RT-PCR) Not Detected M. pneumoniae (PCR) Not Detected Parainfluenza 1 (PCR) Not Detected Parainfluenza 2 (PCR) Not Detected Parainfluenza 3 (PCR) Not Detected Parainfluenza 4 (PCR) Not Detected RSV (PCR) Not Detected Entero/Rhino (PCR) Not Detected SARS-CoV-2 RNA (RT-PCR) Not Detected 03/27/24 03/27/24 03/27/24 06:02 06:02 06:02 MCV MCH 32.7 MCHC 33.6 33.5 RDW 13.4 13.4 Plt Count 393 MPV Immature Gran % (Auto) Neut % (Auto) Lymph % (Auto) [place] % (Auto) Eos % (Auto) Baso % (Auto) Lymph # (Auto) [place] # (Auto) Eos # (Auto) Baso # (Auto) Abs Immat Gran (auto) Absolute Neuts (auto) Absolute Nucleated RBC Nucleated RBC % (auto) Smear Tech's Comments Anion Gap Estim Creat Clear Calc Estimated GFR Random Glucose Calcium Respiratory Panel [place] Adenovirus (Rapid PCR) B.pert (TEM-PCR) B.parapertussis DNA PCR C. pneumoniae DNA (PCR) Coronavirus OC43 (PCR) Coronavirus HKU1 (PCR) Coronavirus 229E (PCR) Coronavirus NL63 (PCR) Human Metapneumovir PCR Influenza A (RT-PCR) Influenza B (RT-PCR) M. pneumoniae (PCR) Parainfluenza 1 (PCR) Parainfluenza 2 (PCR) Parainfluenza 3 (PCR) Parainfluenza 4 (PCR) RSV (PCR) Entero/Rhino (PCR) SARS-CoV-2 RNA (RT-PCR) 03/27/24 03/27/24 03/27/24 06:02 06:02 06:02 MCV MCH MCHC RDW Plt Count 390 MPV 10.1 10.1 Immature Gran % (Auto) 0.8 H Neut % (Auto) 80.9 H Lymph % (Auto) 8.1 L [place] % (Auto) 9.4 Eos % (Auto) 0.5 Baso % (Auto) 0.3 Lymph # (Auto) 1.6 [place] # (Auto) 1.8 H Eos # (Auto) 0.1 Baso # (Auto) 0.1 Abs Immat Gran (auto) 0.16 H Absolute Neuts (auto) 15.7 H Absolute Nucleated RBC 0.000 0.000 Nucleated RBC % (auto) 0.0 Smear Tech's Comments Anion Gap Estim Creat Clear Calc Estimated GFR Random Glucose Calcium Respiratory Panel [place] Adenovirus (Rapid PCR) B.pert (TEM-PCR) B.parapertussis DNA PCR C. pneumoniae DNA (PCR) Coronavirus OC43 (PCR) Coronavirus HKU1 (PCR) Coronavirus 229E (PCR) Coronavirus NL63 (PCR) Human Metapneumovir PCR Influenza A (RT-PCR) Influenza B (RT-PCR) M. pneumoniae (PCR) Parainfluenza 1 (PCR) Parainfluenza 2 (PCR) Parainfluenza 3 (PCR) Parainfluenza 4 (PCR) RSV (PCR) Entero/Rhino (PCR) SARS-CoV-2 RNA (RT-PCR) 03/27/24 06:02 MCV MCH MCHC RDW Plt Count MPV Immature Gran % (Auto) Neut % (Auto) Lymph % (Auto) [place] % (Auto) Eos % (Auto) Baso % (Auto) Lymph # (Auto) [place] # (Auto) Eos # (Auto) Baso # (Auto) Abs Immat Gran (auto) Absolute Neuts (auto) Absolute Nucleated RBC Nucleated RBC % (auto) 0.0 Smear Tech's Comments VERIFIED Anion Gap 15 Estim Creat Clear Calc 140.0 Estimated GFR > 60 Random Glucose 101 Calcium 8.3 L Respiratory Panel [place] Adenovirus (Rapid PCR) B.pert (TEM-PCR) B.parapertussis DNA PCR C. pneumoniae DNA (PCR) Coronavirus OC43 (PCR) Coronavirus HKU1 (PCR) Coronavirus 229E (PCR) Coronavirus NL63 (PCR) Human Metapneumovir PCR Influenza A (RT-PCR) Influenza B (RT-PCR) M. pneumoniae (PCR) Parainfluenza 1 (PCR) Parainfluenza 2 (PCR) Parainfluenza 3 (PCR) Parainfluenza 4 (PCR) RSV (PCR) Entero/Rhino (PCR) SARS-CoV-2 RNA (RT-PCR) Microbiology Microbiology Results: Microbiology 03/24/24 12:21 Blood Culture - Preliminary Blood - Venous No growth after 48 hours. 03/24/24 12:22 Blood Culture - Final Blood - Venous Coag negative Staphylococcus Assessment and Plan (1) Perinephric hematoma: Status: Acute (2) Acute respiratory failure: Status: Acute (3) Pneumonia: Status: Acute Assessment and Plan: 69 year male with a past medical history significant for paroxysmal AFib on Eliquis and amiodarone, HFpEF, lymphedema with chronic venous stasis, HTN, COPD on 3 L home O2, JEFFRY on CPAP, seronegative RA,, overactive bladder and morbid obesity, who presented to the ED after an episode of rigors and weakness today. Workup consistent with sepsis secondary to pneumonia and incidental finding of large 13.3cm perinephric hematoma. sepsis and acute respiratory failure secondary to pneumonia Leukocytosis improving, no fever, tachycardia resolved. blood cultures x2 pending, not severe sepsis chest x-ray with questionable small bilateral pleural effusions/chest CT with bilateral pneumonia 1/2 blood cultures positive :staph coagulase negative plan: continue Zosyn and doxycycline (intiated on 03/24/24). d/w id -blood culture likely contiminant -continue current antibiotics. Perinephric hematoma, left kidney- incidental finding on chest CT of left perinephric hematoma follow-up abdominopelvic CT with large left 13.3 cm perinephric hematoma - hold Eliquis for nowand monitor H&H added lidocaine patch ,morphine ,tylenol,bowel regimen urology eval- pain control,holding anticoagulation for 3-4 weeks Paroxysmal AFib- hold Eliquis as above. continue amiodarone HFpEF-euvolemia continue bumex. Lymphedema with chronic venous stasis - continue home meds HTN - mild hypotension continue home meds when appropriate COPD, no acute exacerbation - no wheezing on exam - continue home meds JEFFRY - CPAP at bedtime Morbid obesity - BMI 51.1 weight loss encouraged,cut down calories VTE prophylaxis: Pneumoboots, hold anticoagulant due to large perinephric hematoma sepsis and acute hypoxic respiratory failure secondary to pneumonia with a recent hospital stay concerning for hospital-acquired pneumonia, requiring admission for at least 2 midnights stay for IV antibiotics and monitoring. Quality Stroke Does the patient have a stroke diagnosis?: No VTE Prior VTE?: No VTE Risk Level:: Medical - moderate - high VTE Device Contraindication: N/A - Device Ordered VTE Drug Contraindication: Treatment Not Indicated
[2024-03-27] MEDS: Doxazosin Mesylate 2 MG TABLET 8 MG PO (20:49)
[2024-03-27] MEDS: traZODone HCL 50 MG TABLET PO (20:49)
[2024-03-27] MEDS: Atorvastatin Calcium 80 MG TABLET PO (20:50)
[2024-03-27] MEDS: Zolpidem Tartrate 5 MG TABLET PO (20:50)
[2024-03-28] VITALS (8 sets, daily range): BP systolic 118–137; BP diastolic 59–64; PULSE 71–92; RESP 16–21; TEMP 36–37.5; O2SAT 94–98
[2024-03-28] MEDS: Piperacillin Sodium/Tazobactam 4.5 GM in 0.9 % Sodium Chloride 100 ML IV ×2 (02:40→07:39)
[2024-03-28] MEDS: HYDROmorphone HCl 0.5 MG/0.5 ML SYRINGE IVPUSH (02:45)
--- NOTE | 2024-03-28 04:08 | PC.NURSE ---
Pt requested for a CPA to use at bedtime, Graciela Sargent was notified, ordered , RT made aware, CPAP machine was provided, pt tolerated, slept most of the night.
[2024-03-28] MEDS: Acetaminophen 325 MG TABLET 975 MG PO ×4 (04:20→21:22)
[2024-03-28] MEDS: Methenamine Hippurate 1 GM TABLET PO (07:38)
[2024-03-28] MEDS: Finasteride 5 MG TABLET PO (07:38)
[2024-03-28] MEDS: DULoxetine HCl 60 MG CAPSULE.DR PO (07:38)
[2024-03-28] MEDS: oxyCODONE HCl Immed Release 5 MG TABLET PO (07:38)
[2024-03-28] MEDS: Docusate Sodium 100 MG CAPSULE PO ×2 (07:38→20:03)
[2024-03-28] MEDS: oxyBUTYnin chloride ER 5 MG TAB.ER.24 10 MG PO (07:38)
[2024-03-28] MEDS: rOPINIRole HCL 2 MG TABLET PO ×3 (07:38→20:03)
[2024-03-28] MEDS: Amiodarone HCL 200 MG TABLET PO (07:38)
[2024-03-28] MEDS: Pregabalin 150 MG CAPSULE PO ×3 (07:39→20:03)
[2024-03-28] MEDS: ACTUATION BL PO (07:39)
[2024-03-28] MEDS: Ascorbic Acid 500 MG TABLET 1000 MG PO (07:39)
[2024-03-28] MEDS: UMECLIDINIUM VILANTEROL PO (07:39)
[2024-03-28] MEDS: Lidocaine 4 % Patch ADH..PATCH 1 PATCH TRANSDERMA (07:39)
[2024-03-28] MEDS: Ammonium Lactate 12 % Lotion 226 GM BOTTLE 1 APPL TOPICAL (07:44)
[2024-03-28] MEDS: 0.9 % Sodium Chloride Flush 3 ML SYRINGE IVFLUSH ×3 (07:49→23:35)
[2024-03-28 08:04] LABS: Hematocrit 33.6 % (42.0-52.0); Hemoglobin 11.2 g/dl (14.0-18.0)
[2024-03-28] MEDS: Doxycycline Hyclate 100 MG in 0.9 % Sodium Chloride 250 ML 166.67 MG IV (09:06)
--- NOTE | 2024-03-28 12:45 | MHC.CM.PN ---
Per MD patient will dc home tomorrow w/ resumption of [facility] services. IMM delivered.
[2024-03-28] MEDS: Amoxicillin/Potassium Clav 875 MG TABLET PO ×2 (13:18→23:35)
[2024-03-28] MEDS: Doxycycline Monohydrate 100 MG CAPSULE PO ×2 (13:18→23:35)
[2024-03-28] MEDS: oxyCODONE HCl Immed Release 5 MG TABLET 10 MG PO ×2 (13:21→20:06)
--- NOTE | 2024-03-28 14:28 | HO.PM.IMPN ---
Subjective Subjective Date of Service: 03/29/24 Interval History: copd ,hematoma Review of Systems sob improving d/w patient for trial try only po pain meds Physical Exam Vital Signs: Vital Signs: Last Vital Signs Temp 96.9 F 03/28/24 11:59 Pulse 84 03/28/24 11:59 Resp 18 03/28/24 11:59 BP 124/64 03/28/24 11:59 Pulse Ox 98 03/28/24 11:59 O2 Del Method Nasal Cannula 03/28/24 11:59 O2 Flow Rate 2 03/28/24 11:59 Oxygen Flow Rate 6 03/24/24 11:15 BMI result Body Mass Index 51.2 Appearance: Alert.? Oriented X3.? cvs: rrr, [id number] . res: air entry dimished ,few rhonchii abd: no rebound or guarding ,nt, bs present. ext pulses present , no cyanosis. neuro: axo3 , nonfocal. Objective Data Active Medications Acetaminophen (Acetaminophen 325 Mg Tablet) 975 mg PO Q6H [facility] Last Admin: 03/28/24 09:04 Dose: 975 mg Documented By: MAHESH Amiodarone HCl (Amiodarone Hcl 200 Mg Tablet) 200 mg PO DAILY [facility] Last Admin: 03/28/24 07:38 Dose: 200 mg Documented By: MAHESH Amoxicillin/Clavulanate Potassium (Amoxicillin/Potassium Clav 875 Mg Tablet) 875 mg PO Q12H [facility] Last Admin: 03/28/24 13:18 Dose: 875 mg Documented By: MAHESH Ascorbic Acid (Ascorbic Acid 500 Mg Tablet) 1,000 mg PO DAILY [facility] Last Admin: 03/28/24 07:39 Dose: 1,000 mg Documented By: MAHESH Atorvastatin Calcium (Atorvastatin Calcium 80 Mg Tablet) 80 mg PO BEDTIME [facility] Last Admin: 03/27/24 20:50 Dose: 80 mg Documented By: CASTILMusa Bumetanide (Bumetanide 1 Mg Tablet) 1 mg PO BID@0800,1700 [facility]; Protocol Last Admin: 03/27/24 08:28 Dose: Not Given Documented By: MAHESH Non-Admin Reason: held for BP 106/54 Calcium Carbonate (Calcium Carbonate 750 Mg Tab.Chew) 750 mg PO Q4H PRN PRN Reason: Heartburn Docusate Sodium (Docusate Sodium 100 Mg Capsule) 100 mg PO BID [facility] Last Admin: 03/28/24 07:38 Dose: 100 mg Documented By: MAHESH Doxazosin Mesylate (Doxazosin Mesylate 2 Mg Tablet) 8 mg PO BEDTIME [facility]; Protocol Last Admin: 03/27/24 20:49 Dose: 8 mg Documented By: ECTORILMusa Doxycycline Monohydrate (Doxycycline Monohydrate 100 Mg Capsule) 100 mg PO Q12H [facility] Last Admin: 03/28/24 13:18 Dose: 100 mg Documented By: MAHESH Duloxetine HCl (Duloxetine Hcl 60 Mg Capsule.Dr) 60 mg PO DAILY [facility] Last Admin: 03/28/24 07:38 Dose: 60 mg Documented By: MAHESH Finasteride (Finasteride 5 Mg Tablet) 5 mg PO DAILY [facility] Last Admin: 03/28/24 07:38 Dose: 5 mg Documented By: MAHESH Guaifenesin/Codeine Phosphate (Guaifen/Codeine Sf 200/20/10ml 10 Ml Liquid) 10 ml PO Q4H PRN PRN Reason: Cough Lactic Acid (Ammonium Lactate 12 % Lotion 226 Gm Bottle) 1 appl TOPICAL DAILY [facility]; Protocol Last Admin: 03/28/24 07:44 Dose: 1 appl Documented By: MAHESH Lidocaine (Lidocaine 4 % Patch Adh..Patch) 1 patch TRANSDERMA DAILY [facility]; Protocol Last Admin: 03/28/24 07:39 Dose: 1 patch Documented By: MAHESH Magnesium Hydroxide (Milk Of Magnesia 30 Ml Oral.Susp) 30 ml PO DAILY PRN PRN Reason: Constipation Last Admin: 03/27/24 08:23 Dose: 30 ml Documented By: MAHESH Melatonin (Melatonin 3 Mg Tablet) 6 mg PO BEDTIME PRN PRN Reason: Insomnia Last Admin: 03/26/24 21:25 Dose: 6 mg Documented By: ECTORILMusa Methenamine Hippurate (Methenamine Hippurate 1 Gm Tablet) 1 gm PO DAILY [facility] Last Admin: 03/28/24 07:38 Dose: 1 gm Documented By: MAHESH Patient Own Med ( Umeclidinium- Vilanterol [Anoro Ellipta] 62.5-25 Mcg /Actuation Bl 1 inhalation PO RDAILY [facility] Last Admin: 03/28/24 07:39 Dose: 1 inhalation Documented By: MAHESH Nystatin (Nystatin Oral Susp 500,000 Unit/5 Ml Oral.Susp) 400,000 unit BUCCAL TID [facility]; Protocol Last Admin: 03/28/24 09:00 Dose: Not Given Documented By: MAHESH Non-Admin Reason: Patient Refused Ondansetron HCl (Ondansetron Hcl 4 Mg/2 Ml Vial) 4 mg IVPUSH Q8H PRN PRN Reason: Nausea and Vomiting Last Admin: 03/27/24 01:18 Dose: 4 mg Documented By: GUERRERO Oxybutynin Chloride (Oxybutynin Chloride Er 5 Mg Tab.Er.24) 10 mg PO DAILY [facility] Last Admin: 03/28/24 07:38 Dose: 10 mg Documented By: MAHESH Oxycodone HCl (Oxycodone Hcl Immed Release 5 Mg Tablet) 10 mg PO Q4H PRN PRN Reason: Pain, Moderate(Pain Scale 4-6) Last Admin: 03/28/24 13:21 Dose: 10 mg Documented By: MAHESH Polyethylene Glycol (Polyethylene Glycol 3350 17 Gm Powd.Pack) 17 gm PO DAILY [facility] Pregabalin (Pregabalin 150 Mg Capsule) 150 mg PO TID [facility] Last Admin: 03/28/24 07:39 Dose: 150 mg Documented By: MAHESH Ropinirole HCl (Ropinirole Hcl 2 Mg Tablet) 2 mg PO TID [facility] Last Admin: 03/28/24 07:38 Dose: 2 mg Documented By: MAHESH Sodium Biphosphate/Sodium Phosphate (Sodium Phosphate,[place]-Dibasic 133 Ml Enema) 133 ml [place] ONCE PRN PRN Reason: Constipation Sodium Biphosphate/Sodium Phosphate (Sodium Phosphate,[place]-Dibasic 133 Ml Enema) 133 ml [place] ONCE PRN PRN Reason: Constipation Sodium Chloride (0.9 % Sodium Chloride Flush 3 Ml Syringe) 3 ml IVFLUSH QSHIFT [facility] Last Admin: 03/28/24 07:49 Dose: 3 ml Documented By: MAHESH Trazodone HCl (Trazodone Hcl 50 Mg Tablet) 50 mg PO BEDTIME [facility] Last Admin: 03/27/24 20:49 Dose: 50 mg Documented By: GUERRERO Zolpidem Tartrate (Zolpidem Tartrate 5 Mg Tablet) 5 mg PO BEDTIME PRN PRN Reason: sleep Last Admin: 03/27/24 20:50 Dose: 5 mg Documented By: GUERRERO Labs 03/28/24 07:35 03/27/24 06:02 Assessment and Plan (1) Perinephric hematoma: Status: Acute (2) Acute respiratory failure: Status: Acute (3) Pneumonia: Status: Acute Assessment and Plan: 69 year male with a past medical history significant for paroxysmal AFib on Eliquis and amiodarone, HFpEF, lymphedema with chronic venous stasis, HTN, COPD on 3 L home O2, JEFFRY on CPAP, seronegative RA,, overactive bladder and morbid obesity, who presented to the ED after an episode of rigors and weakness today. Workup consistent with sepsis secondary to pneumonia and incidental finding of large 13.3cm perinephric hematoma. sepsis and acute respiratory failure secondary to pneumonia Leukocytosis improving, no fever, tachycardia resolved. blood cultures x2 pending, not severe sepsis chest x-ray with questionable small bilateral pleural effusions/chest CT with bilateral pneumonia 1/2 blood cultures positive :staph coagulase negative plan: on Zosyn and doxycycline (intiated on 03/24/24)-changed to augmentin/doxycycline . d/w id -blood culture likely contiminant -continue current antibiotics. Perinephric hematoma, left kidney- incidental finding on chest CT of left perinephric hematoma follow-up abdominopelvic CT with large left 13.3 cm perinephric hematoma - hold Eliquis for nowand monitor H&H added lidocaine patch ,morphine ,tylenol,bowel regimen urology eval- pain control,holding anticoagulation for 3-4 weeks Paroxysmal AFib- hold Eliquis as above. continue amiodarone HFpEF-euvolemia continue bumex. Lymphedema with chronic venous stasis - continue home meds HTN - mild hypotension continue home meds when appropriate COPD, no acute exacerbation - no wheezing on exam - continue home meds JEFFRY - CPAP at bedtime Morbid obesity - BMI 51.1 weight loss encouraged,cut down calories Pt- rec rehab VTE prophylaxis: Pneumoboots, hold anticoagulant due to large perinephric hematoma Quality Stroke Does the patient have a stroke diagnosis?: No VTE Prior VTE?: No VTE Risk Level:: Medical - moderate - high VTE Device Contraindication: N/A - Device Ordered VTE Drug Contraindication: Treatment Not Indicated
[2024-03-28] MEDS: Milk of Magnesia 30 ML ORAL.SUSP PO (15:05)
[2024-03-28] MEDS: Bumetanide 1 MG TABLET PO (15:06)
--- NOTE | 2024-03-28 15:19 | MHC.CM.PN ---
Per MD patient will likely dc tomorrow. DP: STR was recommended. Discussed w/ patient and . Patient declines. Prefers to return home w/ resumption of [facility] services. IMM delivered.
[2024-03-28] MEDS: traZODone HCL 50 MG TABLET PO (20:03)
[2024-03-28] MEDS: Doxazosin Mesylate 2 MG TABLET 8 MG PO (20:03)
[2024-03-28] MEDS: Atorvastatin Calcium 80 MG TABLET PO (20:03)
[2024-03-28] MEDS: Nystatin Oral Susp 500,000 UNIT/5 ML ORAL.SUSP 400000 UNIT BUCCAL (20:03)
[2024-03-29 04:00] VITALS: BP 130/60; PULSE 72; RESP 20; TEMP 36.3; O2SAT 96
[2024-03-29] MEDS: Acetaminophen 325 MG TABLET 975 MG PO ×2 (05:08→11:43)
[2024-03-29] MEDS: oxyCODONE HCl Immed Release 5 MG TABLET 10 MG PO ×2 (05:12→11:44)
[2024-03-29 07:15] VITALS: BP 114/63; PULSE 74; RESP 19; TEMP 36.7; O2SAT 95
[2024-03-29] MEDS: Lidocaine 4 % Patch ADH..PATCH 1 PATCH TRANSDERMA (09:13)
[2024-03-29] MEDS: polyethylene glycoL 3350 17 GM POWD.PACK PO (09:14)
[2024-03-29] MEDS: Finasteride 5 MG TABLET PO (09:15)
[2024-03-29] MEDS: oxyBUTYnin chloride ER 5 MG TAB.ER.24 10 MG PO (09:16)
[2024-03-29] MEDS: Pregabalin 150 MG CAPSULE PO (09:16)
[2024-03-29] MEDS: DULoxetine HCl 60 MG CAPSULE.DR PO (09:16)
[2024-03-29] MEDS: Docusate Sodium 100 MG CAPSULE PO (09:16)
[2024-03-29] MEDS: Methenamine Hippurate 1 GM TABLET PO (09:16)
[2024-03-29] MEDS: rOPINIRole HCL 2 MG TABLET PO (09:16)
[2024-03-29 09:17] VITALS: BP 123/58
[2024-03-29] MEDS: Bumetanide 1 MG TABLET PO (09:17)
[2024-03-29] MEDS: Amiodarone HCL 200 MG TABLET PO (09:19)
[2024-03-29] MEDS: Ascorbic Acid 500 MG TABLET 1000 MG PO (09:19)
[2024-03-29] MEDS: Ammonium Lactate 12 % Lotion 226 GM BOTTLE 1 APPL TOPICAL (09:20)
[2024-03-29 10:54] VITALS: BP 123/58
[2024-03-29 11:18] VITALS: BP 132/66; PULSE 89; RESP 18; TEMP 36.1; O2SAT 96
[2024-03-29] MEDS: Doxycycline Monohydrate 100 MG CAPSULE PO (11:43)
[2024-03-29] MEDS: Amoxicillin/Potassium Clav 875 MG TABLET PO (11:43)
--- NOTE | 2024-03-29 12:11 | W.MHC.F2F ---
Service Date Service Date: 03/29/24 Encounter Date of encounter: 03/29/24 Encounter: copd, hematoma Reasons for Services Signs and symptoms assessed: Worsening shortness of breath or any bleeding Reason for alf: medication management, medication treatment and teach disease management Reason for physical therapy: home safety and mobility, therapeutic exercises, restore joint function, gait/transfer training, assess need for DME, ADL training, energy conservation and other MD Overseeing Care: Diego Augustine Homebound: Leaving the home is medically contraindicated at this time without the asist of a device and/or another person due th the listed conditions above and below. Reason homebound: weakness related to hospital stay Homebound supporting statement: Patient is generalised weak (multiple comorbidities) post hospitlisation and need help with going to appointments and labs draws as well as PT. Certification: Based on the above findings, I certify that this patient is confined to the home and needs intermittent alf care, physical therapy and/or speech therapy, or continues to need occupational therapy. The patient is under my care, and I have initiated the establishment of the plan of care. The patient will be followed by a physician who will periodically review the plan of care. Time Spent With Patient Time: Total time managing care of this patient today ____ minutes.
--- NOTE | 2024-03-29 12:14 | P.DS_ITS ---
DS: Providers Provider Date of Service: 03/29/24 Date of admission: 03/24/24 20:44 Date of discharge: 03/29/24 Primary care physician: DIANA MathisPAbe Consults: 03/25/24 08:45 Consult to Infectious Diseases Routine Consulting Provider: [facility] Reason for consultation: bacteremia Has provider been notified: No 03/25/24 09:50 Consult to Urology Routine Consulting Provider: [facility] Urology [facility] Reason for consultation: Perirenal hematoma Has provider been notified: No Attending physician on discharge: Willie Harris Discharging clinician: Willie Harris DS: Diagnosis Discharge Diagnosis (1) Perinephric hematoma: Status: Acute (2) Acute respiratory failure: Status: Acute (3) Pneumonia: Status: Acute DS: Summary Hospital Course Hospital Course: HPI:69 year male with a past medical history significant for paroxysmal AFib on Eliquis and amiodarone, HFpEF, lymphedema with chronic venous stasis, HTN, COPD on 3 L home O2, JEFFRY on CPAP, seronegative RA, HTN, overactive bladder and morbid obesity, who presented to the ED after an episode of rigors and weakness today. He reports that he was standing and started feeling weak, no LOC or head strike. He was slowly drawn to the floor by his and they called EMS. They report yesterday use feeling very ill and pale however today he was feeling better up until this episode. He has had a wet cough but has not been able to bring up any sputum. He denies chest pain, shortness of breath, nausea vomiting or diarrhea. No urinary symptoms including dysuria, frequency or urgency. He was recently admitted from 03/13/24-03/18/24 with COVID, CHF and COPD. Hospital course: 69 year male with a past medical history significant for paroxysmal AFib on Eliquis and amiodarone, HFpEF, lymphedema with chronic venous stasis, HTN, COPD on 3 L home O2, JEFFRY on CPAP, seronegative RA,, overactive bladder and morbid obesity, who presented to the ED after an episode of rigors and weakness today. Workup consistent with sepsis secondary to pneumonia and incidental finding of large 13.3cm perinephric hematoma: Patient was admitted due to sepsis and acute respiratory failure secondary to pneumonia-started on IV antibiotics, blood cultures sent,chest x-ray with questionable small bilateral pleural effusions/chest CT with bilateral pneumonia: With above supportive care patient shortness breath seems to be improved significantly, switched to p.o. anti biotics, blood culture 1/2 coagulase-negative staph which is likely contaminant. WBC improving, no fever. Patient was switched to p.o. Augmentin and doxycycline. Perinephric hematoma, left kidney- incidental finding on chest CT of left perinephric hematoma follow-up abdominopelvic CT with large left 13.3 cm perinephric hematoma: Seen by Urology, H&H stable, patient was started on IV pain medications and p.o. pain meds: Patient pain seems to be improved, H&H stable around 11.2/33.6: Patient is switched to p.o. oxycodone, bowel regimen. urology recomended to hold AC for 3 weeks, follow up with urology outpatient. Constipation: Patient is on Colace, MiraLax also given milk of Mag, enema patient producing some he has passing bm,passing gases.no abd pain. plan: moniter cbc ,urology recomended to hold AC for 3 weeks, follow up with urology outpatient. complete augmentin 875 mg po bid ,doxycycline 100 mg po bid for 5 days,please repeat chest imaging in 3-4 weeks to see resolution of pneumonia. Continue bowel regimen going home with vna/pt Above management discussed with the patient in detail length he understand and in agreement with the plan, time spent 40 minute. Time Attestation Total time managing care of this patient today: 40 mintues. Discharge Coordination Time (in mins): 40 min Quality: Safe Use of Opioids Does Pt have an Active Cancer Diagnosis on the Problem List?: No Quality: Stroke Does the patient have a stroke diagnosis?: No Physical Exam Vital Signs: Vital Signs: Last Vital Signs Temp 96.9 F 03/29/24 11:18 Pulse 89 03/29/24 11:18 Resp 18 03/29/24 11:18 BP 132/66 03/29/24 11:18 Pulse Ox 96 03/29/24 11:18 O2 Del Method Nasal Cannula 03/29/24 11:18 O2 Flow Rate 3 03/29/24 11:18 Oxygen Flow Rate 6 03/24/24 11:15 BMI result Body Mass Index 51.2 Appearance: Alert.? Oriented X3.? cvs: rrr, [id number] . res: air entry dimished ,few rhonchii abd: no rebound or guarding ,nt, bs present. ext pulses present , no cyanosis. neuro: axo3 , nonfocal. DS: Data Data Completed and Pending Completed studies during hospitalization [Text1]: Procedures Assistance with Respiratory Ventilation, Less than 24 Consecutive Hours, Continuous Positive Airway Pressure (03/13/24) Introduction of Anesthetic Agent into Joints, Percutaneous Approach (10/14/22) Introduction of Anti-inflammatory into Joints, Percutaneous Approach (10/14/22) Introduction of Remdesivir Anti-infective into Peripheral Vein, Percutaneous Approach, [employer] (05/16/20) Labs on day of discharge: Laboratory Results - last 24 hr 03/25/24 05:19 WBC 21.9 H RBC 4.08 L Hgb 13.3 L Hct 40.7 L MCV 99.8 H MCH 32.6 MCHC 32.7 RDW 13.7 Plt Count 404 H MPV 10.1 Immature Gran % (Auto) 1.4 H Neut % (Auto) 83.8 H Lymph % (Auto) 7.2 L [place] % (Auto) 7.1 Eos % (Auto) 0.2 Baso % (Auto) 0.3 Lymph # (Auto) 1.6 [place] # (Auto) 1.6 H Eos # (Auto) 0.1 Baso # (Auto) 0.1 Abs Immat Gran (auto) 0.31 H Absolute Neuts (auto) 18.4 H Absolute Nucleated RBC 0.000 Nucleated RBC % (auto) 0.0 Smear Tech's Comments VERIFIED Sodium 134 L Potassium 4.0 Chloride 96 Carbon Dioxide 27 Anion Gap 15 BUN 21 H Creatinine 1.06 Estim Creat Clear Calc 122.8 Estimated GFR > 60 Random Glucose 114 Calcium 8.7 Preliminary micro results at discharge 03/24/24 12:21 Blood Culture - Preliminary Blood - Venous No growth after 48 hours. Imaging Chest x-ray: Radiologist's impression: ITS Impressions Chest X-Ray 03/24/24 11:13 IMPRESSION: Mild interstitial lung edema and questionable bilateral small pleural effusions.. Electronically signed by: Jame Thompson MD 03/24/2024 11:59 AM [facility] Chest CT 03/24/24 13:54 IMPRESSION: 1. Moderate centrilobular emphysema with evidence of pulmonary arterial hypertension. 2. Peribronchial thickening throughout both lungs, most significant bilateral lower lobes with endobronchial mucoid plugging, and subsegmental consolidative opacities left greater than right costophrenic sulci. Pneumonia is suspected. There are no effusions. 3. Borderline cardiomegaly. 4. Partially imaged, subcapsular left renal hematoma with extension into the left pararenal space. Associated mass effect upon, and anterior displacement of the left kidney. Of note, on 11/03/2023, kidneys appeared normal by ultrasound. 5. Small to moderate size type I hiatus hernia. 6. Cholelithiasis. 7. Additional ancillary findings as discussed. Electronically signed by: Wyatt Koch MD 03/24/2024 04:20 PM [facility] Discharge Plan Discharge Anticipated Discharge Date/Time: 03/28/24 11:49 Patient Disposition: Home Health Service Discharge Diagnosis: copd ,hematoma Referrals: [facility] [Outside] - 1 Week Prabhu Head MD [Physician] - 2 Weeks Diego Augustine FNP- [Primary Care Provider] - 1 Week Discharge Medications: New doxycycline hyclate 100 mg capsule 100 mg PO BID Qty: 10 0RF amoxicillin-pot clavulanate 875-125 mg tablet 1 tab PO BID Qty: 10 0RF acetaminophen 325 mg Tablet 975 mg PO Q6H PRN (Reason: pain) Qty: 20 0RF polyethylene glycol 3350 17 gram Powder In Packet 17 g PO DAILY Qty: 30 0RF oxycodone 5 mg Tablet 10 mg PO Q4H PRN (Reason: Pain, Moderate(Pain Scale 4-6)) Qty: 20 0RF Rx Instructions: Partial Fill upon patient request. docusate sodium [Colace] 100 mg capsule 100 mg PO BID Qty: 30 0RF Continued (DME) [facility]ette [facility] See Rx Instructions .Route Qty: 1 0RF Rx Instructions: daily use (rolling sitting walker-bariatric size needed) finasteride 5 mg tablet 5 mg PO DAILY 90 Days Qty: 90 1RF amiodarone 200 mg tablet 200 mg PO DAILY 90 Days Qty: 90 2RF doxazosin 8 mg tablet 8 mg PO BEDTIME 90 Days Qty: 90 1RF Anoro Ellipta 62.5-25 mcg/actuation blister with device 1 inh PO DAILY Qty: 60 3RF pregabalin 150 mg capsule 150 mg PO TID 90 Days Qty: 270 2RF (DME) Powered bariatric recliner See Rx Instructions .Route .MEDSUPPLY Qty: 1 0RF Rx Instructions: As directed atorvastatin 80 mg tablet 80 mg PO BEDTIME 90 Days Qty: 90 1RF duloxetine 60 mg capsule,delayed release(DR/EC) 60 mg PO DAILY Qty: 90 0RF docusate sodium [Colace] 100 mg capsule 100 mg PO BID Qty: 180 1RF ropinirole 2 mg tablet 2 mg PO TID 90 Days Qty: 270 0RF bumetanide 1 mg tablet 2 mg PO DAILY Qty: 180 1RF albuterol sulfate 90 mcg/actuation HFA aerosol inhaler 2 puff PO Q6H PRN (Reason: for wheezing) oxybutynin chloride 10 mg tablet extended release 24hr 10 mg PO DAILY spironolactone 25 mg tablet 25 mg PO DAILY ipratropium-albuterol 0.5 mg-3 mg(2.5 mg base)/3 mL solution for nebulization 3 ml inhalation Q6H PRN (Reason: wheezing) 30 Days Qty: 360 3RF zolpidem 10 mg tablet 10 mg PO BEDTIME PRN (Reason: sleep) Qty: 30 1RF nystatin 100,000 unit/mL suspension 400,000 unit buccal TID 15 Days Qty: 180 1RF Rx Instructions: administer 1/2 of dose in each side of the mouth, swish and swallow ammonium lactate 12 % lotion 1 appl topical DAILY ascorbic acid (vitamin C) 1,000 mg tablet 1 g PO DAILY 90 Days Qty: 90 1RF methenamine hippurate 1 gram tablet 1 g PO DAILY 90 Days Qty: 90 1RF Held Eliquis 5 mg tablet 5 mg PO BID Qty: 60 5RF Hold Instructions: Resume on 04/14/24. Discharge Orders: Discharge Order (Routine); Ordered 03/29/24 Ordered By: Willie Harris Diet: Advance to usual diet Activity on Discharge: As tolerated Stand Alone Forms: Patient Portal Discharge page Print Language: Romansh Other Ambulatory Orders: Basic Metabolic Panel (Routine) Timeframe: 1 Week Facility: [facility] - Location: Laboratory Ordered By: Willie Harris Complete Blood Count no Diff (Routine) Timeframe: 1 Week Facility: [facility] - Location: Laboratory Ordered By: Willie Harris Care Plan Goals: 69 year male with a past medical history significant for paroxysmal AFib on Eliquis and amiodarone, HFpEF, lymphedema with chronic venous stasis, HTN, COPD on 3 L home O2, JEFFRY on CPAP, seronegative RA,, overactive bladder and morbid obesity, who presented to the ED after an episode of rigors and weakness today. Workup consistent with sepsis secondary to pneumonia and incidental finding of large 13.3cm perinephric hematoma: Patient was admitted due to sepsis and acute respiratory failure secondary to pneumonia-started on IV antibiotics, blood cultures sent,chest x-ray with questionable small bilateral pleural effusions/chest CT with bilateral pneumonia: With above supportive care patient shortness breath seems to be improved significantly, switched to p.o. antibiotics, blood culture 1/2 coagulase-negative staph which is likely contaminant. WBC improving, no fever. Patient was switched to p.o. Augmentin and doxycycline. Perinephric hematoma, left kidney- incidental finding on chest CT of left perinephric hematoma follow-up abdominopelvic CT with large left 13.3 cm perinephric hematoma: Seen by Urology, H&H stable, patient was started on IV pain medications and p.o. pain meds: Patient pain seems to be improved, H&H stable around 11.2/33.6: Patient is switched to p.o. oxycodone, bowel regimen. urology recomended to hold AC for 3 weeks, follow up with urology outpatient. Constipation: Patient is on Colace, MiraLax also given milk of Mag, enema patient producing some he has passing bm,passing gases.no abd pain Health Concerns: as above. Plan of Treatment: moniter cbc ,urology recomended to hold AC for 3 weeks, follow up with urology outpatient. complete augmentin 875 mg po bid ,doxycycline 100 mg po bid for 5 days,please repeat chest imaging in 3-4 weeks to see resolution of pneumonia. Continue bowel regimen Assessment: As above. Patient Instructions: Pneumonia (DC) Discharge Date/Time: 03/29/24 13:44
[2024-03-29 13:43] VITALS: BP 144/71; PULSE 100; RESP 18; TEMP 37.2; O2SAT 95
--- NOTE | 2024-03-29 13:45 | MHC.CM.PN ---
IMM 03/29/24 Patient is discharged to home with resumption of [facility]. His will provide transportation home.
== END 2024-03-29 13:44 | disposition home health service (06) | DRG 871 ==
LOC: HO.ED 13:29 → HO.EDOVER 20:53 → HO.S3 22:57
PROVIDERS: Admitting Provider Physician Assistant; Emergency Provider Emergency Medicine; PCP Nurse Practitioner Family; Visit Provider Internal Medicine
DX: A41.9 Sepsis, unspecified organism (principal); J18.9 Pneumonia, unspecified organism; J96.01 Acute respiratory failure with hypoxia; J44.0 Chronic obstructive pulmonary disease with (acute) lower respiratory infection; Z68.43 Body mass index [BMI] 50.0-59.9, adult; S37.022A Major contusion of left kidney, initial encounter; J91.8 Pleural effusion in other conditions classified elsewhere; I50.32 Chronic diastolic (congestive) heart failure; Z99.81 Dependence on supplemental oxygen; M06.00 Rheumatoid arthritis without rheumatoid factor, unspecified site; G47.33 Obstructive sleep apnea (adult) (pediatric); I48.0 Paroxysmal atrial fibrillation; E66.01 Morbid (severe) obesity due to excess calories; Q82.0 Hereditary lymphedema; W19.XXXA Unspecified fall, initial encounter; I87.8 Other specified disorders of veins; K59.00 Constipation, unspecified; I95.9 Hypotension, unspecified; Z71.3 Dietary counseling and surveillance; I11.0 Hypertensive heart disease with heart failure; Z20.822 Contact with and (suspected) exposure to COVID-19; Z87.891 Personal history of nicotine dependence; Z79.01 Long term (current) use of anticoagulants; Z79.899 Other long term (current) drug therapy
CPT/HCPCS: 0241U; 36415; 71046; 71260; 74176; 80048; 80076; 81003; 83036; 83605; 83690; 83735; 85014; 85018; 85025; 85027; 85610; 85730; 87040; 87147; 87205; 87633; 87640; 87641; 93005; 94660; 97116; 97162; 97530; 99285; J0456; J0696; J1171; J2060; J2270; J2405; J2543; Q9967

== ENCOUNTER → 2024-03-24 11:12 | Outpatient (BNV) | payer MEDICARE, SELFPAY | PROVIDERS: Emergency Provider Emergency Medicine; PCP Nurse Practitioner Family; Visit Provider Internal Medicine Cardiovascular Disease | DX: I44.0 Atrioventricular block, first degree (principal); I45.10 Unspecified right bundle-branch block; R00.0 Tachycardia, unspecified | CPT/HCPCS: 93010 ==

== ENCOUNTER → 2024-03-24 11:13 | Outpatient (BNV) | payer MEDICARE, SELFPAY | PROVIDERS: PCP Nurse Practitioner Family; Visit Provider Radiology Diagnostic Radiology | DX: S37.092A Other injury of left kidney, initial encounter (principal); I27.21 Secondary pulmonary arterial hypertension; J84.9 Interstitial pulmonary disease, unspecified | CPT/HCPCS: 71046; 71260 ==

== ENCOUNTER → 2024-03-24 20:44 | Outpatient (BNV) | payer MEDICARE, SELFPAY | PROVIDERS: Admitting Provider Physician Assistant; Emergency Provider Emergency Medicine; PCP Nurse Practitioner Family; Visit Provider Internal Medicine | DX: S37.019A Minor contusion of unspecified kidney, initial encounter (principal); J96.00 Acute respiratory failure, unspecified whether with hypoxia or hypercapnia; J18.9 Pneumonia, unspecified organism | CPT/HCPCS: 99223; 99231; 99232; 99239; G0180 ==

== ENCOUNTER → 2024-03-24 20:44 | Outpatient (BNV) | payer MEDICARE, SELFPAY | PROVIDERS: Admitting Provider Physician Assistant; Emergency Provider Emergency Medicine; PCP Nurse Practitioner Family; Visit Provider Internal Medicine | DX: S37.019A Minor contusion of unspecified kidney, initial encounter (principal); J18.9 Pneumonia, unspecified organism | CPT/HCPCS: 99222 ==

== ENCOUNTER → 2024-03-24 20:44 | Outpatient (BNV) | payer MEDICARE, SELFPAY | PROVIDERS: Admitting Provider Physician Assistant; Emergency Provider Emergency Medicine; PCP Nurse Practitioner Family; Visit Provider Urology | DX: S37.012A Minor contusion of left kidney, initial encounter (principal); K59.00 Constipation, unspecified | CPT/HCPCS: 99222 ==

== ENCOUNTER 2024-04-02 12:10 | Emergency (ER) | payer MEDICARE, SELFPAY ==
--- NOTE | ~2024-04-02 | XR_ITS ---
EXAMINATION: XR CHEST 2 VIEWS HISTORY: pain COMPARISON: Comparison is made with the prior examination dated 03/24/2024. FINDINGS: PA and lateral views of the chest are submitted. The lungs remain hyperinflated, consistent with COPD. The lungs are clear. There is no pleural effusion, pneumothorax, or pulmonary vascular congestion. The heart is normal in size. There is degenerative disc disease of the spine. XR/XR chest 2V IMPRESSION: COPD. No acute cardiopulmonary abnormality. Electronically signed by: Marc Leary MD 04/02/2024 01:06 PM [facility]
[2024-04-02 12:25] VITALS: BP 131/68; PULSE 111; RESP 22; TEMP 37.4; O2SAT 94; BMI 51.1
--- NOTE | 2024-04-02 12:25 | ED.GENADULT ---
HPI - General Adult General Chief complaint: Weakness Stated complaint: Weakness Time Seen by Provider: 04/02/24 19:48 Source: patient, family, RN notes reviewed and old records reviewed Mode of arrival: wheelchair Limitations: no limitations History of Present Illness ED Provider: Digna HPI narrative: Patient is a 69-year-old male with history of afib, was on Eliquis, recently discontinued, HFpEF, lymphedema with chronic venous stasis, HTN, COPD on 3lpm home O2, JEFFRY on CPAP, seronegative RA, HTN, overactive bladder, obesity presenting to the emergency department with complaint of worsening weakness and several falls this past week as well as worsening lower extremity edema. Patient and state that his legs have been giving out and he has slowly lowered himself to the ground. Denies head strike or loss of consciousness. Denies chest pain, palpitations, dyspnea. Denies abdominal pain, nausea, vomiting or diarrhea. Some constipation and dysuria. Denies fevers but reports ongoing rigors. states that patient was recommended to go to rehab at discharge from inpatient on 03/29 but patient declined, now thinks he should have gone. Has appointment scheduled with cardiology to discuss placement of Watchman. complaint: weakness Onset (ago): day(s) Related Data Home Medications ?Medication ?Instructions ?Recorded ?Confirmed albuterol sulfate 90 mcg/actuation 2 puff PO Q6H PRN for wheezing 10/13/22 03/30/24 aerosol inhaler ammonium lactate 12 % lotion 1 appl topical DAILY 11/20/23 03/30/24 oxybutynin chloride 10 mg 10 mg PO DAILY 02/19/24 03/30/24 tablet,extended release 24 hr spironolactone 25 mg tablet 25 mg PO DAILY 03/14/24 03/30/24 Previous Rx's ?Medication ?Instructions ?Recorded walker #1 ea 05/22/23 finasteride 5 mg tablet 5 mg PO DAILY 90 days #90 tabs 09/08/23 amiodarone 200 mg tablet 200 mg PO DAILY 90 days #90 tabs 10/10/23 doxazosin 8 mg tablet 8 mg PO BEDTIME 90 days #90 tabs 11/03/23 Anoro Ellipta 62.5 mcg-25 1 inh PO DAILY #60 ea 11/05/23 mcg/actuation powder for inhalation (umeclidinium-vilanterol) pregabalin 150 mg capsule 150 mg PO TID 90 days #270 caps 12/02/23 Powered bariatric recliner #1 ea 12/11/23 atorvastatin 80 mg tablet 80 mg PO BEDTIME 90 days #90 tabs 12/29/23 docusate sodium 100 mg capsule 100 mg PO BID Constipation #180 01/13/24 (Colace) caps duloxetine 60 mg capsule,delayed 60 mg PO DAILY #90 caps 01/13/24 release apixaban 5 mg tablet (Eliquis) 5 mg PO BID #60 tabs 01/19/24 ropinirole 2 mg tablet 2 mg PO TID 90 days #270 tabs 01/22/24 ascorbic acid (vitamin C) 1,000 mg 1 g PO DAILY 90 days #90 tabs 01/29/24 tablet methenamine hippurate 1 gram tablet 1 g PO DAILY 90 days #90 tabs 01/29/24 bumetanide 1 mg tablet 2 mg (2 x 1 mg) PO DAILY #180 tabs 02/23/24 ipratropium 0.5 mg-albuterol 3 mg 3 ml inhalation Q6H PRN wheezing 03/11/24 (2.5 mg base)/3 mL nebulization 30 days #360 mL soln nystatin 100,000 unit/mL oral 400,000 unit (4 mL) buccal TID 03/23/24 suspension ORAL THRUSH 15 days #180 mL zolpidem 10 mg tablet 10 mg PO BEDTIME PRN sleep #30 tabs 03/23/24 acetaminophen 325 mg tablet 975 mg (3 x 325 mg) PO Q6H PRN 03/28/24 pain #20 tabs amoxicillin 875 mg-potassium 1 tab PO BID #10 tabs 03/28/24 clavulanate 125 mg tablet docusate sodium 100 mg capsule 100 mg PO BID #30 caps 03/28/24 (Colace) doxycycline hyclate 100 mg capsule 100 mg PO BID #10 caps 03/28/24 oxycodone 5 mg tablet 10 mg (2 x 5 mg) PO Q4H PRN Pain, 03/28/24 Moderate(Pain Scale 4-6) #20 tabs polyethylene glycol 3350 17 gram 17 g PO DAILY #30 ea 03/28/24 oral powder packet Allergies Allergy/AdvReac Type Severity Reaction Status Date / Time No Known Allergies Allergy Verified 04/02/24 12:27 [No Known Allergies*] Review of Systems Review of Systems: As per HPI Yes all other systems are reviewed and are negative Constitutional: Constitutional: Reports as per HPI [facility] Past Medical History Medical History Sepsis COPD (chronic obstructive pulmonary disease) Acute respiratory failure due to COVID-19 Community acquired pneumonia Viral sepsis Fatigue Acute on chronic diastolic CHF (congestive heart failure) COVID Morbid obesity Paroxysmal atrial fibrillation Congestive heart failure Testicular swelling Osteoarthritis of right knee Melanoma History of cardioversion Hereditary lymphedema Venous insufficiency Morbid obesity Lymphedema COPD (chronic obstructive pulmonary disease) Sensory neuropathy COVID-19 Respiratory failure with hypoxia Restrictive lung disease JEFFRY on CPAP MATUTE (dyspnea on exertion) Chronic cystitis Bladder outlet obstruction Restless leg syndrome Traumatic complete tear of right rotator cuff Injury of right rotator cuff History of diverticulitis History of umbilical hernia Surgical History Hx of colonoscopy History of appendectomy History of arthroscopy of left knee Family History Family History Father Arthritis Diabetes Mother Arthritis Kidney stones Family/Other Arthritis Sister No problems noted. Sister No problems noted. Son No problems noted. Social History Social History Household Members: Spouse Household Members Other:: [facility] Do you presently have visiting nurse or other home services: Yes (PT at house.) Unable to assess alcohol history related to: Unknown Alcohol intake: current Alcohol intake frequency: 0-2 drinks per day Alcohol type: beer Comment: Refused bed alarm due to alarm sensitivity when changing positions. 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 Cognitive needs: No Hearing needs: No Vision needs: No Physical Exam ED Vital Signs: Vital Signs - 24 hr 04/02/24 12:25 04/02/24 17:12 04/02/24 17:25 Temperature 99.4 F 99.2 F Pulse Rate 111 H 100 100 Respiratory Rate 22 H 24 H Blood Pressure 131/68 131/107 H 142/58 H Pulse Oximetry 94 97 Oxygen Delivery Method Nasal Cannula Nasal Cannula Oxygen Flow Rate 04/02/24 20:05 04/02/24 21:15 04/02/24 23:12 Temperature 97.7 F 97.8 F Pulse Rate 83 85 Respiratory Rate 18 16 Blood Pressure 146/80 H 148/80 H 142/61 H Pulse Oximetry 99 98 Oxygen Delivery Method Nasal Cannula Room Air Oxygen Flow Rate 3 04/03/24 02:34 04/03/24 05:02 04/03/24 08:10 Temperature 97.8 F 98.1 F Pulse Rate 84 90 92 Respiratory Rate 18 12 20 Blood Pressure 111/60 111/73 109/67 Pulse Oximetry 97 97 97 Oxygen Delivery Method Room Air Nasal Cannula Room Air Oxygen Flow Rate 3 04/03/24 09:10 Temperature Pulse Rate 92 Respiratory Rate Blood Pressure 109/67 Pulse Oximetry 97 Oxygen Delivery Method Oxygen Flow Rate BMI result Body Mass Index 51.1 Vital signs have been reviewed and appear to be correct. Blood pressure normal. Heart rate tachycardic. Respiratory rate slightly tachypneic. Temperature normal. Oxygen saturation normal on 3lpm, wears this at baseline. Const General: cooperative and no acute distress Nutritional Appearance: obese Orientation/consciousness: oriented to person, oriented to place, oriented to time and patient oriented x3 Limitations: no limitations [facility] Head: Yes normocephalic and Yes atraumatic Ears: external ears normal General nose exam: Normal external nose present Face and sinus: Yes face symmetric Mouth: oropharynx normal and moist mucous membranes Throat: Yes uvula midline Eyes Pupils: Equal, round and reactive pupils present Neck Neck: Yes normal visual inspection and Yes supple Resp Effort & Inspection: normal respiratory effort and able to speak in complete sentences Auscultation: clear to auscultation bilaterally Cardio Rate: tachycardic Rhythm: regular rhythm Heart sounds: S1 normal heart sound present and S2 normal heart sound present GI Palpation (GI): Soft to palpation and nontender Auscultation: normoactive bowel sounds General: Yes no CVA tenderness Back/Spine/Pelvis Back: no CVA tenderness Skin General skin exam: elasticity normal and turgor normal Neuro General: oriented to person, oriented to place, oriented to time, patient oriented x3, moves all extremities, no focal motor deficits and CN's II-XI intact bilaterally Cranial nerves: Yes Equal, round and reactive pupils present Cognition (Neuro): normal cognition Extrem General: Yes full ROM and Yes no calf tenderness Right lower extremity: lower leg Details: pitting edema Details: 4+ and other (erythema, blisters, chronic venous stasis), ankle Details: edema Details: pitting and 4+ and foot Details: normal capillary refill, toes with normal ROM and edema Location: diffusely Details: pitting and 4+ Left lower extremity: lower leg Details: erythema (blisters, chronic venous stasis) and pitting edema Details: 4+, ankle Details: pitting edema Details: pitting and 4+ and foot Details: edema Location: diffusely Details: pitting and 4+ Psych Mental Status: mental status grossly normal Affect: normal affect Thought process: Normal thought process present Course Course Course Narrative: RME, this is a rapid medical exam performed by Beto Hartman please refer to primary provider for complete H&P- 69-year-old male presents for evaluation of weakness. He was recently admitted for a perinephric hematoma as well as pneumonia. He has mild lower back pain but otherwise reports he has ?no strength in my arms and legs. ? He also believes he has ?accumulated fluid. Plan for labs, chest x-ray Reevaluation(s) Reevaluation #1: observation continued, VS stable this AM. I spoke to him this AM and his biggest concern is his weakness since his recent pneumonia/hematoma, he is pending rehab. I did look at his legs they are edematous but not red or hot they are itchy and purpleish more consistent with venous stasis dermatitis. CULLEN 04/03/24 730am Reevaluation #2: patient re-evaluated per family request. RLE more purple/red and warm to palpation. concern for possible evolving cellulitis. will start on augmentin for this repeat labs are stable after 2mg IV bumex yesterday. will give another 1mg iv bumex today. po mag and K ordered as well. PT saw the patient and is recommending short term rehab. home med rec is pending. to be moved over to overflow. will continue to monitor. Time: 11:51 Medications Administered Discontinued Medications Generic Name Dose Route Start Last Admin Trade Name Alan PRN Reason Stop Dose Admin Acetaminophen 975 mg 04/02/24 17:15 04/02/24 17:19 Acetaminophen 325 Mg Tablet PO 04/02/24 17:16 975 mg ONCE ONE Administration Amoxicillin/Clavulanate Potassium 875 mg 04/02/24 20:58 04/02/24 21:14 Amoxicillin/Potassium Clav 875 Mg Tablet PO 04/02/24 20:59 875 mg ONCE ONE Administration Bumetanide 2 mg 04/02/24 20:47 04/02/24 21:15 Bumetanide 1 Mg/4 Ml Vial IVPUSH 04/02/24 20:48 2 mg ONCE ONE Administration Protocol Doxycycline Monohydrate 100 mg 04/02/24 20:58 04/02/24 21:14 Doxycycline Monohydrate 100 Mg Capsule PO 04/02/24 20:59 100 mg ONCE ONE Administration Sodium Chloride 250 mls @ 999 mls/hr 04/02/24 20:30 04/02/24 21:19 Ns IV 04/02/24 20:45 Infused .Q16M MICHELLE Infusion Oxycodone HCl 10 mg 04/02/24 20:49 04/02/24 21:15 Oxycodone Hcl Immed Release 5 Mg Tablet PO 04/02/24 20:50 10 mg ONCE ONE Administration Oxycodone HCl 10 mg 04/03/24 01:59 04/03/24 02:35 Oxycodone Hcl Immed Release 5 Mg Tablet PO 04/03/24 02:00 10 mg ONCE ONE Administration Ropinirole HCl 2 mg 04/02/24 20:58 04/02/24 21:31 Ropinirole Hcl 2 Mg Tablet PO 04/02/24 20:59 2 mg ONCE ONE Administration Medical Decision Making Medical Decision Making MDM Narrative: Patient is a 69-year-old male with history of afib, was on Eliquis, recently discontinued, HFpEF, lymphedema with chronic venous stasis, HTN, COPD on 3lpm home O2, JEFFRY on CPAP, seronegative RA, HTN, overactive bladder, obesity presenting to the emergency department with complaint of worsening weakness and several falls this past week as well as worsening lower extremity edema. On exam patient is awake, A+Ox3, VS WNL, afebrile, normal neurological exam without focal deficits, physical exam findings as above. He was discharged home on antibiotics for pneumonia. Given reported symptoms and physical exam findings, initial differential includes but is not limited to viral illness, UTI, rigors, electrolyte abnormaltiy, weakness. Labs notable for slightly elevated lactic, IV fluids ordered, leukocytosis improved from discharge, anemia improved from discharge. Viral serology negative. X-ray chest notable for COPD, no acute abnormality. My interpretation is in agreement with the radiologist's interpretation. UA pending. Case discussed with Dr. Chacon who agrees patient does not require admission, recommends one time dose of Bumex 2mg IV tonight, then continue with 2mg po daily, and add 1mg PO PRN at night for increased edema. Will place patient on physician observation for PT/CM as feels she cannot care for patient at home. Will order patient's last dose of augmentin and doxy which he was discharged on for pna. Will also order his ropinirole for his RLS. Patient placed on physician obs pending PT/CM evals. Differential Diagnosis Differential Diagnoses: The differential diagnosis associated with the presentation includes as per [facility] Admission/Observation Consideration of admission/observation: Escalation of care including admission/observation considered Consult Healthcare Provider Management of the patient was discussed with: Hospitalist (Dr. Chacon) Lab Data [facility] Lab Attestation statement: I reviewed the patient's lab results. As per [facility] 04/02/24 13:18 04/03/24 09:10 Labs: Lab Results 04/02/24 04/02/24 04/03/24 Range/Units 13:18 22:39 09:10 WBC 18.2 H (4.8-10.8) X10*3/uL RBC 3.66 L (4.60-5.80) X10*6/uL Hgb 12.0 L (14.0-18.0) g/dl Hct 34.5 L (42.0-52.0) % MCV 94.3 (80.0-98.0) fL MCH 32.8 (27.0-33.0) pg MCHC 34.8 (31.0-36.0) g/dl RDW 13.3 (11.0-16.0) % Plt Count 447 H (160-400) X10*3/uL MPV 9.1 L (9.4-12.4) fL Immature Gran % (Auto) 0.7 H (0.0-0.4) % Neut % (Auto) 87.6 H (45-73) % Lymph % (Auto) 5.7 L (20-40) % [place] % (Auto) 5.2 (2-11) % Eos % (Auto) 0.5 (0-4) % Baso % (Auto) 0.3 (0-2) % Lymph # (Auto) 1.0 L (1.2-4.9) X10*3/uL [place] # (Auto) 0.9 (0.1-1.2) X10*3/uL Eos # (Auto) 0.1 (0.0-0.4) X10*3/uL Baso # (Auto) 0.1 (0.0-0.2) X10*3/uL Abs Immat Gran (auto) 0.12 H (0.00-0.03) X10*3/uL Absolute Neuts (auto) 15.9 H (2.0-8.3) x10*3/uL Absolute Nucleated RBC 0.000 (0.0-0.012) X10*3/uL Nucleated RBC % (auto) 0.0 (0.0-0.2) /100WBC PT 16.1 H D (10.9-12.4) SEC INR 1.4 H (0.9-1.1) Sodium 132 L 135 (135-145) mmol/L Potassium 3.7 3.5 (3.3-5.1) mmol/L Chloride 98 98 (96-108) mmol/L Carbon Dioxide 23 28 (22-29) mmol/L Anion Gap 15 13 (12-20) BUN 15 14 (9-16) mg/dL Creatinine 0.83 0.82 (0.5-1.4) mg/dL Estim Creat Clear Calc 156.7 158.6 Estimated GFR > 60 > 60 Random Glucose 105 104 (60-115) mg/dL Lactic Acid 2.3 H* (0.5-2.0) mmol/L Calcium 8.9 D 8.8 (8.4-10.2) mg/dL Magnesium 1.6 (1.6-2.6) mg/dL Total Bilirubin 0.7 (0.0-1.0) mg/dL AST 57 H (5-37) U/L ALT 18 (0-40) U/L Alkaline Phosphatase 71 (39-117) U/L Troponin I High Sens 4.4 (<3.5-35.0) ng/L B-Natriuretic Peptide 43 (<100) pg/mL Total Protein 7.0 (6.5-8.0) g/dL Albumin 2.8 L (3.5-5.0) g/dL Lipase 6 L (8-78) U/L Urine Color Yellow Urine Appearance Clear Urine pH 5.5 (5.0-9.0) Ur Specific [place] 1.015 (1.005-1.025) Urine Protein Negative (Neg-Trace) mg/dL Urine Glucose (UA) Negative (Negative) mg/dL Urine Ketones Negative (Negative) mg/dL Urine Blood Negative (Negative) Urine Nitrite Negative (Negative) Ur Leukocyte Esterase Negative (Negative) Urine RBC 0-2 (0-2) /HPF Urine WBC 6-10 H (0-5) /HPF Ur Squamous Epith Cells 0-2 (0-2) /HPF Urine Bacteria None Seen (None Seen) Hyaline Casts 0-2 (0-2) /LPF Influenza Type A (PCR) NEGATIVE (Negative) Influenza Type B (PCR) NEGATIVE (Negative) RSV RNA Qual (PCR) NEGATIVE (Negative) SARS-CoV-2 RNA (RT-PCR) NEGATIVE (Negative) Independent Interpretation I performed an independent interpretation of an: Plain X-Ray Interpretation: Chest x-ray notable for COPD, no acute abnormality Radiology Impression Discussion of test interpretation with radiology: I have reviewed the radiologist's reading. Radiologist Impression: FINDINGS: PA and lateral views of the chest are submitted. The lungs remain hyperinflated, consistent with COPD. The lungs are clear. There is no pleural effusion, pneumothorax, or pulmonary vascular congestion. The heart is normal in size. There is degenerative disc disease of the spine. XR/XR chest 2V IMPRESSION: COPD. No acute cardiopulmonary abnormality. Independent Historian Clinical information obtained from an independent historian. History obtained from or confirmed by: Spouse External Record Review External record reviewed: Inpatient record, Office record and Outpatient record Discharge Plan Discharge Clinical Impression: Weakness, Bilateral lower extremity edema Patient Disposition: Still a Patient Prescriptions: No Action (DME) walker Misc See Rx Instructions .Route Qty: 1 0RF Rx Instructions: daily use (rolling sitting walker-bariatric size needed) finasteride 5 mg tablet 5 mg PO DAILY 90 Days Qty: 90 1RF amiodarone 200 mg tablet 200 mg PO DAILY 90 Days Qty: 90 2RF doxazosin 8 mg tablet 8 mg PO BEDTIME 90 Days Qty: 90 1RF Anoro Ellipta 62.5-25 mcg/actuation blister with device 1 inh PO DAILY Qty: 60 3RF pregabalin 150 mg capsule 150 mg PO TID 90 Days Qty: 270 2RF (DME) Powered bariatric recliner See Rx Instructions .Route .MEDSUPPLY Qty: 1 0RF Rx Instructions: As directed atorvastatin 80 mg tablet 80 mg PO BEDTIME 90 Days Qty: 90 1RF duloxetine 60 mg capsule,delayed release(DR/EC) 60 mg PO DAILY Qty: 90 0RF docusate sodium [Colace] 100 mg capsule 100 mg PO BID Qty: 180 1RF Eliquis 5 mg tablet 5 mg PO BID Qty: 60 5RF ropinirole 2 mg tablet 2 mg PO TID 90 Days Qty: 270 0RF bumetanide 1 mg tablet 2 mg PO DAILY Qty: 180 1RF doxycycline hyclate 100 mg capsule 100 mg PO BID Qty: 10 0RF amoxicillin-pot clavulanate 875-125 mg tablet 1 tab PO BID Qty: 10 0RF acetaminophen 325 mg Tablet 975 mg PO Q6H PRN (Reason: pain) Qty: 20 0RF polyethylene glycol 3350 17 gram Powder In Packet 17 g PO DAILY Qty: 30 0RF oxycodone 5 mg Tablet 10 mg PO Q4H PRN (Reason: Pain, Moderate(Pain Scale 4-6)) Qty: 20 0RF Rx Instructions: Partial Fill upon patient request. docusate sodium [Colace] 100 mg capsule 100 mg PO BID Qty: 30 0RF albuterol sulfate 90 mcg/actuation HFA aerosol inhaler 2 puff PO Q6H PRN (Reason: for wheezing) oxybutynin chloride 10 mg tablet extended release 24hr 10 mg PO DAILY spironolactone 25 mg tablet 25 mg PO DAILY ipratropium-albuterol 0.5 mg-3 mg(2.5 mg base)/3 mL solution for nebulization 3 ml inhalation Q6H PRN (Reason: wheezing) 30 Days Qty: 360 3RF zolpidem 10 mg tablet 10 mg PO BEDTIME PRN (Reason: sleep) Qty: 30 1RF nystatin 100,000 unit/mL suspension 400,000 unit buccal TID 15 Days Qty: 180 1RF Rx Instructions: administer 1/2 of dose in each side of the mouth, swish and swallow ammonium lactate 12 % lotion 1 appl topical DAILY ascorbic acid (vitamin C) 1,000 mg tablet 1 g PO DAILY 90 Days Qty: 90 1RF methenamine hippurate 1 gram tablet 1 g PO DAILY 90 Days Qty: 90 1RF Print Language: Telugu
--- NOTE | 2024-04-02 12:26 | ECG_ITS ---
Test Reason : weakness Blood Pressure : */* mmHG Vent. Rate : 108 BPM Atrial Rate : 108 BPM P-R Int : 190 ms QRS Dur : 142 ms QT Int : 374 ms P-R-T Axes : 18 -84 18 degrees QTcB Int : 501 ms Sinus tachycardia Left axis deviation Right bundle branch block Abnormal ECG When compared with ECG of 24-Mar-2024 11:27, No significant change was found Referred By: Cirilo Hartman Electronically Signed By: GIANCARLO RASCON MD
[2024-04-02 13:35] LABS: MANUAL DIFF FLAG NO
[2024-04-02 13:39] LABS: Basophils Absolute Auto 0.1 X10*3/uL (0.0-0.2); Basophils Percent Auto 0.3 % (0-2); Eosinophils Absolute Auto 0.1 X10*3/uL (0.0-0.4); Eosinophils Percent Auto 0.5 % (0-4); Hematocrit 34.5 % (42.0-52.0); Imm Gran Abs Auto 0.12 X10*3/uL (0.00-0.03); Imm Gran Pct Auto 0.7 % (0.0-0.4); Lymphocytes Percent Auto 5.7 % (20-40); Mean Corpuscular HGB Conc 34.8 g/dl (31.0-36.0); Mean Corpuscular Hemoglobin 32.8 pg (27.0-33.0); Mean Corpuscular Volume 94.3 fL (80.0-98.0); Mean Platelet Volume 9.1 fL (9.4-12.4); Monocytes Absolute Auto 0.9 X10*3/uL (0.1-1.2); Monocytes Percent Auto 5.2 % (2-11); Neutrophils Absolute Auto 15.9 x10*3/uL (2.0-8.3); Neutrophils Percent Auto 87.6 % (45-73); Platelet Count 447 X10*3/uL (160-400); Red Blood Count 3.66 X10*6/uL (4.60-5.80); Red Cell Distribution Width 13.3 % (11.0-16.0); White Blood Count 18.2 X10*3/uL (4.8-10.8)
[2024-04-02 13:42] LABS: INTERNATIONAL NORM RATIO 1.4 (0.9-1.1); Prothrombin Time 16.1 SEC (10.9-12.4)
[2024-04-02 13:52] LABS: Alanine Aminotransferase 18 U/L (0-40); Albumin Level 2.8 g/dL (3.5-5.0); Alkaline Phosphatase 71 U/L (39-117); Anion Gap 15 (12-20); Aspartate Amino Transferase 57 U/L (5-37); Bilirubin Total 0.7 mg/dL (0.0-1.0); Blood Urea Nitrogen 15 mg/dL (9-16); Calcium 8.9 mg/dL (8.4-10.2); Carbon Dioxide 23 mmol/L (22-29); Chloride 98 mmol/L (96-108); Creatinine Clr Calc Pharmacy 156.7; Estimated Glomerular Filt Rate > 60; Glucose Random 105 mg/dL (60-115); Lipase 6 U/L (8-78); Potassium 3.7 mmol/L (3.3-5.1); Sodium 132 mmol/L (135-145)
[2024-04-02 13:57] LABS: B Type Natriuretic Peptide 43 pg/mL (<100); Troponin-I High Sensitivity 4.4 ng/L (<3.5-35.0)
[2024-04-02 14:03] LABS: Lactic Acid 2.3 mmol/L (0.5-2.0)
[2024-04-02 14:14] LABS: Influenza A PCR NEGATIVE (Negative); Influenza B PCR NEGATIVE (Negative); Resp Syncy Virus RNA Qual PCR NEGATIVE (Negative); SARS COV2 PCR INHOUSE NEGATIVE (Negative)
[2024-04-02 15:34] LABS: Reflex Lactate? Lactic Acid Added
[2024-04-02 17:12] VITALS: BP 131/107; PULSE 100; RESP 24; TEMP 37.3; O2SAT 97
[2024-04-02] MEDS: Acetaminophen 325 MG TABLET 975 MG PO (17:19)
[2024-04-02 17:25] VITALS: BP 142/58; PULSE 100
[2024-04-02 20:05] VITALS: BP 146/80; PULSE 83; RESP 18; TEMP 36.5; O2SAT 99
--- NOTE | 2024-04-02 20:30 | PC.NURSE ---
Per PA no lactic at this time, patient had lactic drawn in waiting room no interventions done
[2024-04-02] MEDS: 0.9 % Sodium Chloride 250 ML 999 ML IV (20:46)
[2024-04-02] MEDS: Amoxicillin/Potassium Clav 875 MG TABLET PO (21:14)
[2024-04-02] MEDS: Doxycycline Monohydrate 100 MG CAPSULE PO (21:14)
[2024-04-02 21:15] VITALS: BP 148/80
[2024-04-02] MEDS: oxyCODONE HCl Immed Release 5 MG TABLET 10 MG PO (21:15)
[2024-04-02] MEDS: Bumetanide 1 MG/4 ML VIAL 2 MG IVPUSH (21:15)
[2024-04-02] MEDS: rOPINIRole HCL 2 MG TABLET PO (21:31)
[2024-04-02 23:12] VITALS: BP 142/61; PULSE 85; RESP 16; TEMP 36.6; O2SAT 98
[2024-04-02 23:25] LABS: Color Urine Yellow; Glucose Urine UA Negative (Negative); Leukocyte Esterase Urine Negative (Negative); Nitrite Urine Negative (Negative); PH 5.5 (5.0-9.0); Specific Gravity - Urine 1.015 (1.005-1.025); Urine Blood Negative (Negative); Urine Ketones Negative (Negative); Urine Protein Negative (Neg-Trace)
[2024-04-02 23:26] LABS: Appearance Urine Clear
[2024-04-02 23:28] LABS: Bacteria Urine None Seen (None Seen); Hyaline Casts Urine 0-2 /LPF (0-2); RBC Urine 0-2 /HPF (0-2); Squamous Epithelial Cell Urine 0-2 /HPF (0-2); UACC Culture Trigger YES
[2024-04-03] VITALS (11 sets, daily range): BP systolic 109–143; BP diastolic 60–94; PULSE 84–108; RESP 12–26; TEMP 36.2–37.1; O2SAT 92–98
[2024-04-03] MEDS: oxyCODONE HCl Immed Release 5 MG TABLET 10 MG PO ×4 (02:35→22:05)
--- NOTE | 2024-04-03 08:35 | PC.NURSE ---
pharmacy called for patient med rec
--- NOTE | 2024-04-03 08:52 | PC.NURSE ---
patient is awake, alert and oriented x3. patient sat at edge of bed and ate breakfast this morning. patient participated in PT, PT said he stood on edge of bed. patient rolled by this RN and tech, noted to have beginning of pressure injury on gluteal cleft. covered with pink padded dressing. patient boosted in bed. linens are dry, new pad placed under patient. patient lower legs noted to be red, swollen and warm. ED provider notified.
[2024-04-03 09:34] LABS: Anion Gap 13 (12-20); Blood Urea Nitrogen 14 mg/dL (9-16); Calcium 8.8 mg/dL (8.4-10.2); Carbon Dioxide 28 mmol/L (22-29); Chloride 98 mmol/L (96-108); Creatinine Clr Calc Pharmacy 158.6; Estimated Glomerular Filt Rate > 60; Glucose Random 104 mg/dL (60-115); Magnesium 1.6 mg/dL (1.6-2.6); Potassium 3.5 mmol/L (3.3-5.1); Sodium 135 mmol/L (135-145)
--- NOTE | 2024-04-03 11:22 | MHC.CM.PN ---
CM MET WITH PT AND AT BEDSIDE THEY REPORT PT DISCHARGED HOME ON 03/29 WITH [facility], HOWEVER HE HAD ANOTHER FALL PT WAS DECLINING STR DURING HIS 03/24-03/29 ADMISSION, BUT IS NOW AGREEABLE PTS REQUESTED A REFERRAL TO [facility] AND PT STATES HE IS INTERESTED IN [facility] PER DISCUSSION, REFERRALS WERE PLACED TO THE TWO PREFERRED SNFS IDENTIFIED BY PT AND WELL OTHERS IN THE AREA
--- NOTE | 2024-04-03 12:47 | PHA.MEDREC ---
Addendum entered by Venus Haile RPh 04/03/24 13:12: MED REC REVIEWED BY [facility]. SENT MESSAGE TO PROVIDER TO ADVISE THAT PATIENT IS TAKING OXYCODONE AND PREGABALIN HE IS HERE FOR SEVERAL FALLS THIS WEEK AND EXCESSIVE WEEKNESS. Original Note: Pharmacy Consult ? Medication Reconciliation Pharmacy has completed the medication reconciliation. Spoke with patient and spouse at bedside. Patient had a list on their phone and we went through it together. He is still taking Augmentin and doxycycline, both last taken yesterday AM. He is no longer taking Actemra. His most recent rx for spironolactone says 2 tabs daily, but patient reports taking 1 tab daily. Spouse reports he is still taking Anoro and she has it with her at bedside (last fill 10/2023 per claims). He reports the eliquis is still on hold and he has not been taking. He last took his medications yesterday morning.
--- NOTE | 2024-04-03 13:41 | PC.NURSE ---
pharmacy has been called, awaiting for all medications to medicate patient
[2024-04-03] MEDS: Amiodarone HCL 200 MG TABLET PO (14:15)
[2024-04-03] MEDS: Potassium Chloride ER 20 MEQ TAB.ER.PRT 40 MEQ PO (14:15)
[2024-04-03] MEDS: Magnesium Oxide 400 MG TABLET 800 MG PO (14:15)
[2024-04-03] MEDS: Apixaban 5 MG TABLET PO ×2 (14:15→22:01)
[2024-04-03] MEDS: Ascorbic Acid 500 MG TABLET 1000 MG PO (14:15)
[2024-04-03] MEDS: Finasteride 5 MG TABLET PO (14:15)
[2024-04-03] MEDS: Docusate Sodium 100 MG CAPSULE PO (14:15)
[2024-04-03] MEDS: oxyBUTYnin chloride ER 5 MG TAB.ER.24 10 MG PO (14:16)
[2024-04-03] MEDS: DULoxetine HCl 60 MG CAPSULE.DR PO (14:16)
[2024-04-03] MEDS: Pregabalin 150 MG CAPSULE PO ×2 (14:16→22:01)
[2024-04-03] MEDS: Bumetanide 1 MG TABLET 2 MG PO (14:16)
[2024-04-03] MEDS: rOPINIRole HCL 2 MG TABLET PO ×2 (14:16→22:30)
[2024-04-03] MEDS: Methenamine Hippurate 1 GM TABLET PO (14:19)
[2024-04-03] MEDS: Amoxicillin/Potassium Clav 875 MG TABLET PO ×2 (14:20→22:30)
[2024-04-03] MEDS: polyethylene glycoL 3350 17 GM POWD.PACK PO (14:20)
[2024-04-03] MEDS: Ammonium Lactate 12 % Lotion 226 GM BOTTLE 1 APPL TOPICAL (14:20)
[2024-04-03] MEDS: Nystatin Oral Susp 500,000 UNIT/5 ML ORAL.SUSP 400000 UNIT BUCCAL ×2 (14:21→22:01)
[2024-04-03] MEDS: Spironolactone 25 MG TABLET PO (14:21)
--- NOTE | 2024-04-03 14:34 | PC.NURSE ---
pt came over from main ed to bed 5, pt was then moved to bed 6 due to his anxiety. patient a&ox3, rr equal/non labored- lungs diminished throughout-speaking in full sentences, vss, pt c/o 11/26 BLE pain- medicated with pain meds per order, pharmacy brought medications and pt was medicated per order, BLE 3+ edema- red/hot to touch. family at bedside, call jenkins within reach, plan of care ongoing
--- NOTE | 2024-04-03 15:06 | PC.NURSE ---
still awaiting bumex from pharmacy
[2024-04-03] MEDS: Bumetanide 1 MG/4 ML VIAL IVPUSH (15:58)
--- NOTE | 2024-04-03 18:09 | PC.NURSE ---
pt is requesting to speak with a provider about his legs which he states are on fire, pt also stated he knew he has a fever. vitals were obtained, provider- Beto was notified and patient will be given his PRN pain medication when due shortly. will notify patient that the provider will come see him when he has a free moment.
--- NOTE | 2024-04-03 18:31 | PC.NURSE ---
pt requesting to speak to an RT as he needs a special tubing for his cpap from home, RT was notified and they will come down when available
--- NOTE | 2024-04-03 20:24 | PC.NURSE ---
pharmacy tiger texted for missing medications
[2024-04-03] MEDS: Atorvastatin Calcium 80 MG TABLET PO (22:01)
[2024-04-03] MEDS: Zolpidem Tartrate 5 MG TABLET PO (22:30)
[2024-04-03] MEDS: Doxazosin Mesylate 2 MG TABLET 8 MG PO (22:30)
[2024-04-04 06:00] VITALS: BP 129/68; PULSE 98; RESP 20; TEMP 36.3; O2SAT 95
[2024-04-04] MEDS: oxyCODONE HCl Immed Release 5 MG TABLET 10 MG PO ×3 (07:44→21:05)
[2024-04-04] MEDS: ANORO 1 EACH INHALE (07:52)
--- NOTE | 2024-04-04 09:20 | MHC.EDTECH ---
Am care done , Bed change RN aware
[2024-04-04] MEDS: Amiodarone HCL 200 MG TABLET PO (09:22)
[2024-04-04] MEDS: Pregabalin 150 MG CAPSULE PO ×3 (09:22→20:59)
[2024-04-04] MEDS: Ascorbic Acid 500 MG TABLET 1000 MG PO (09:22)
[2024-04-04] MEDS: Docusate Sodium 100 MG CAPSULE PO ×2 (09:22→20:59)
[2024-04-04] MEDS: Finasteride 5 MG TABLET PO (09:23)
[2024-04-04] MEDS: Nystatin Oral Susp 500,000 UNIT/5 ML ORAL.SUSP 400000 UNIT BUCCAL ×3 (09:23→20:59)
[2024-04-04] MEDS: polyethylene glycoL 3350 17 GM POWD.PACK PO (09:23)
--- NOTE | 2024-04-04 09:31 | PC.NURSE ---
Pt refusing his Eliquis, stating he hasn't taken it in 2 months; MAR shows several doses given; messaged
[2024-04-04] MEDS: rOPINIRole HCL 2 MG TABLET PO ×3 (09:47→20:59)
[2024-04-04] MEDS: Amoxicillin/Potassium Clav 875 MG TABLET PO ×2 (09:47→20:59)
[2024-04-04] MEDS: Methenamine Hippurate 1 GM TABLET PO (09:48)
[2024-04-04] MEDS: DULoxetine HCl 60 MG CAPSULE.DR PO (09:48)
[2024-04-04] MEDS: oxyBUTYnin chloride ER 5 MG TAB.ER.24 10 MG PO (09:48)
[2024-04-04] MEDS: Ammonium Lactate 12 % Lotion 226 GM BOTTLE 1 APPL TOPICAL (10:09)
[2024-04-04] MEDS: Spironolactone 25 MG TABLET PO (10:22)
[2024-04-04 14:33] VITALS: BP 132/60; PULSE 96; RESP 16; TEMP 36.4; O2SAT 96
[2024-04-04 20:55] VITALS: BP 139/54; PULSE 104; RESP 18; TEMP 36.7; O2SAT 92
[2024-04-04] MEDS: Doxazosin Mesylate 2 MG TABLET 8 MG PO (20:59)
[2024-04-04] MEDS: Apixaban 5 MG TABLET PO (20:59)
[2024-04-04] MEDS: Atorvastatin Calcium 80 MG TABLET PO (20:59)
--- NOTE | 2024-04-04 21:38 | PC.NURSE ---
pt self repositioned in bed with guidance. resting comfortably at this time
[2024-04-04 23:23] VITALS: PULSE 98; O2SAT 94
[2024-04-05 06:58] VITALS: BP 129/68; PULSE 103; RESP 20; TEMP 36.6; O2SAT 95
--- NOTE | 2024-04-05 06:59 | PC.NURSE ---
pt reports he is being d/c today to rehab?? unsure where/when, no notes found in chart regarding this plan
[2024-04-05] MEDS: Ammonium Lactate 12 % Lotion 226 GM BOTTLE 1 APPL TOPICAL (08:55)
[2024-04-05] MEDS: ANORO 1 EACH INHALE (08:55)
[2024-04-05] MEDS: Bumetanide 1 MG TABLET 2 MG PO (08:56)
[2024-04-05] MEDS: Finasteride 5 MG TABLET PO (08:56)
[2024-04-05] MEDS: Amiodarone HCL 200 MG TABLET PO (08:57)
[2024-04-05] MEDS: DULoxetine HCl 60 MG CAPSULE.DR PO (08:57)
[2024-04-05] MEDS: Methenamine Hippurate 1 GM TABLET PO (08:57)
[2024-04-05] MEDS: Docusate Sodium 100 MG CAPSULE PO (08:57)
[2024-04-05] MEDS: Apixaban 5 MG TABLET PO (08:57)
[2024-04-05] MEDS: Amoxicillin/Potassium Clav 875 MG TABLET PO (08:57)
[2024-04-05] MEDS: oxyBUTYnin chloride ER 5 MG TAB.ER.24 10 MG PO (08:57)
[2024-04-05] MEDS: Pregabalin 150 MG CAPSULE PO (08:57)
[2024-04-05] MEDS: Spironolactone 25 MG TABLET PO (08:57)
[2024-04-05] MEDS: Ascorbic Acid 500 MG TABLET 1000 MG PO (08:58)
[2024-04-05] MEDS: Nystatin Oral Susp 500,000 UNIT/5 ML ORAL.SUSP 400000 UNIT BUCCAL (08:58)
[2024-04-05] MEDS: rOPINIRole HCL 2 MG TABLET PO (08:58)
[2024-04-05] MEDS: polyethylene glycoL 3350 17 GM POWD.PACK PO (08:59)
[2024-04-05] MEDS: oxyCODONE HCl Immed Release 5 MG TABLET 10 MG PO (09:06)
[2024-04-05 09:13] VITALS: BP 129/58; PULSE 97; RESP 18; TEMP 36.6; O2SAT 94
--- NOTE | 2024-04-05 09:23 | PC.NURSE ---
1:1 assist out of chair s/p eating breakfast and into bed. pt turned/repositioned to comfort. medication administered per provider order. ammonium lactate applied to affected areas on LE bilaterally. legs present as extremely red, swollen, and hot to the touch. small blisters noted throughout. some open/some closed/scabbed over. purulent drainage noted to the open areas. vitals obtained/wnl. pt remains afebrile. pt otherwise requesting PRN oxycodone d/t increased generalized pain all over. PRN medication utilized. effectiveness pending. pt otherwise remains on 3L via NC (baseline). no sob/wob noted. respirations even/unlabored. bed alarm turned on for safety precautions. pending STR placement. plan of care ongoing. call jenkins placed within reach.
--- NOTE | 2024-04-05 12:22 | PC.NURSE ---
Addendum entered by Tiarra Akers 04/05/24 12:30: report given to FRANCISCO Wright (Tressa was the executive secretary social welfare). Original Note: report given to FRANCISCO Bustillos at [facility] in [place] at this time. pt pending S transportation via [place] at this time.
[2024-04-05 12:28] VITALS: BP 128/60; PULSE 100; RESP 20; TEMP 36.7; O2SAT 94
[2024-04-05 12:36] VITALS: BP 128/60; PULSE 100; RESP 20; TEMP 36.7; O2SAT 94
--- NOTE | 2024-04-05 13:04 | PC.NURSE ---
report given to SUKI Sheldon crew at this time. pt being transferred to [facility].
== END 2024-04-05 13:06 ==
PROVIDERS: Physician Assistant; Emergency Provider Emergency Medicine; PCP Nurse Practitioner Family
DX: R60.0 Localized edema (principal); R53.1 Weakness; I48.91 Unspecified atrial fibrillation; J44.9 Chronic obstructive pulmonary disease, unspecified; R06.02 Shortness of breath; R30.0 Dysuria; K59.00 Constipation, unspecified; I45.10 Unspecified right bundle-branch block; Z99.81 Dependence on supplemental oxygen; Z03.818 Encounter for observation for suspected exposure to other biological agents ruled out; Z79.01 Long term (current) use of anticoagulants; Z79.899 Other long term (current) drug therapy; Z91.81 History of falling; Z87.891 Personal history of nicotine dependence
CPT/HCPCS: 0241U; 36415; 71046; 80048; 80053; 81001; 83605; 83690; 83735; 83880; 84484; 85025; 85610; 87040; 87086; 93005; 96361; 96374; 96376; 97162; 99285; J1939

== ENCOUNTER → 2024-04-02 12:26 | Outpatient (BNV) | payer MEDICARE, SELFPAY | PROVIDERS: PCP Nurse Practitioner Family; Visit Provider Radiology Diagnostic Radiology | DX: J44.9 Chronic obstructive pulmonary disease, unspecified (principal) | CPT/HCPCS: 71046 ==

== ENCOUNTER → 2024-04-02 12:26 | Outpatient (BNV) | payer MEDICARE, SELFPAY | PROVIDERS: PCP Nurse Practitioner Family; Visit Provider Internal Medicine Cardiovascular Disease | DX: I45.10 Unspecified right bundle-branch block (principal); R00.0 Tachycardia, unspecified | CPT/HCPCS: 93010 ==

== ENCOUNTER 2024-04-10 15:11 | Inpatient (IN) | payer MEDICARE, SELFPAY ==
--- NOTE | ~2024-04-10 | US_ITS ---
CLINICAL HISTORY: erythema, swelling, recently d c AC has a-fib Venous duplex ultrasound bilateral lower extremity Comparison: None Findings: The visualized deep veins are fully compressible with normal Doppler color flow and spectral tracings. No popliteal cyst. IMPRESSION: 1. No evidence of deep venous thrombosis. 2. Evaluation limited by body habitus. This document has been electronically signed by: Teri Riley MD on 04/10/2024 17:53:11
--- NOTE | 2024-04-10 15:24 | ED_ITS ---
HPI - Extremity Problem General Chief complaint: Skin/Abscess/Foreign Body Stated complaint: LE SWELLING,ABX X4D W/NO CHANGE PER EMS Time Seen by Provider: 04/10/24 15:22 Source: patient Mode of arrival: ambulatory Limitations: no limitations History of Present Illness ED Provider: marciano mccray NP HPI Narrative: Patient is a 69-year-old male with history of afib, was on Eliquis, recently discontinued, HFpEF, lymphedema with chronic venous stasis, HTN, COPD on 3lpm home O2, JEFFRY on CPAP, seronegative RA, HTN, overactive bladder, obesity who presents emergency department via EMS coming from [facility], he was just discharged from our facility 04/05/2024. During his time here in the emergency department, patient and family felt as though the right lower extremity was increasing and purple/red discoloration and warm to touch, concern for possible cellulitis superimposed on chronic lymphedema/venous stasis dermatitis, he was started on Augmentin was not noticing any improvement, over the past 4 days has been on Rocephin 1 g IV daily but patient and state that it is only worsening. Decision made for him to be transported to the hospital today. Related Data Home Medications ?Medication ?Instructions ?Recorded ?Confirmed albuterol sulfate 90 mcg/actuation 2 puff PO Q6H PRN for wheezing 10/13/22 04/03/24 aerosol inhaler ammonium lactate 12 % lotion 1 appl topical DAILY 11/20/23 04/03/24 oxybutynin chloride 10 mg 10 mg PO DAILY 02/19/24 04/03/24 tablet,extended release 24 hr spironolactone 25 mg tablet 25 mg PO DAILY 03/14/24 04/03/24 Previous Rx's ?Medication ?Instructions ?Recorded walker #1 ea 05/22/23 finasteride 5 mg tablet 5 mg PO DAILY 90 days #90 tabs 09/08/23 amiodarone 200 mg tablet 200 mg PO DAILY 90 days #90 tabs 10/10/23 Anoro Ellipta 62.5 mcg-25 1 inh PO DAILY #60 ea 11/05/23 mcg/actuation powder for inhalation (umeclidinium-vilanterol) pregabalin 150 mg capsule 150 mg PO TID 90 days #270 caps 12/02/23 Powered bariatric recliner #1 ea 12/11/23 atorvastatin 80 mg tablet 80 mg PO BEDTIME 90 days #90 tabs 12/29/23 docusate sodium 100 mg capsule 100 mg PO BID Constipation #180 01/13/24 (Colace) caps apixaban 5 mg tablet (Eliquis) 5 mg PO BID #60 tabs 01/19/24 ropinirole 2 mg tablet 2 mg PO TID 90 days #270 tabs 01/22/24 ascorbic acid (vitamin C) 1,000 mg 1 g PO DAILY 90 days #90 tabs 01/29/24 tablet methenamine hippurate 1 gram tablet 1 g PO DAILY 90 days #90 tabs 01/29/24 bumetanide 1 mg tablet 2 mg (2 x 1 mg) PO DAILY #180 tabs 02/23/24 ipratropium 0.5 mg-albuterol 3 mg 3 ml inhalation Q6H PRN wheezing 03/11/24 (2.5 mg base)/3 mL nebulization 30 days #360 mL soln nystatin 100,000 unit/mL oral 400,000 unit (4 mL) buccal TID 03/23/24 suspension ORAL THRUSH 15 days #180 mL zolpidem 10 mg tablet 10 mg PO BEDTIME PRN sleep #30 tabs 03/23/24 acetaminophen 325 mg tablet 975 mg (3 x 325 mg) PO Q6H PRN 03/28/24 pain #20 tabs amoxicillin 875 mg-potassium 1 tab PO BID #10 tabs 03/28/24 clavulanate 125 mg tablet doxycycline hyclate 100 mg capsule 100 mg PO BID #10 caps 03/28/24 oxycodone 5 mg tablet 10 mg (2 x 5 mg) PO Q4H PRN Pain, 03/28/24 Moderate(Pain Scale 4-6) #20 tabs polyethylene glycol 3350 17 gram 17 g PO DAILY #30 ea 03/28/24 oral powder packet doxazosin 8 mg tablet 8 mg PO BEDTIME 90 days #90 tabs 04/06/24 duloxetine 60 mg capsule,delayed 60 mg PO DAILY #90 caps 04/08/24 release cefazolin 2 gram solution for 1 g IV Q8H 7 days 04/10/24 injection doxycycline hyclate 100 mg capsule 100 mg PO BID #14 caps 04/10/24 Allergies Allergy/AdvReac Type Severity Reaction Status Date / Time No Known Allergies Allergy Verified 04/10/24 16:04 [No Known Allergies*] Review of Systems 2 Review of Systems: Yes all other systems are reviewed and are negative [facility] Past Medical History Attestation statement: The following information was validated with the patient. Source: old records reviewed Medical History Sepsis COPD (chronic obstructive pulmonary disease) Acute respiratory failure due to COVID-19 Community acquired pneumonia Viral sepsis Fatigue Acute on chronic diastolic CHF (congestive heart failure) COVID Morbid obesity Paroxysmal atrial fibrillation Congestive heart failure Testicular swelling Osteoarthritis of right knee Melanoma History of cardioversion Hereditary lymphedema Venous insufficiency Morbid obesity Lymphedema COPD (chronic obstructive pulmonary disease) Sensory neuropathy COVID-19 Respiratory failure with hypoxia Restrictive lung disease JEFFRY on CPAP MATUTE (dyspnea on exertion) Chronic cystitis Bladder outlet obstruction Restless leg syndrome Traumatic complete tear of right rotator cuff Injury of right rotator cuff History of diverticulitis History of umbilical hernia Surgical History Hx of colonoscopy History of appendectomy History of arthroscopy of left knee Family History Family History Father Arthritis Diabetes Mother Arthritis Kidney stones Family/Other Arthritis Sister No problems noted. Sister No problems noted. Son No problems noted. Social History Social History Household Members: Spouse Household Members Other:: Housing: Condominium Do you presently have visiting nurse or other home services: Yes (PT at house.) Unable to assess alcohol history related to: Unknown Alcohol intake: current Alcohol intake frequency: holidays/special occasions only Alcohol type: beer Comment: Refused bed alarm due to alarm sensitivity when changing positions. Patient Tobacco Use Status: Former Tobacco user Tobacco use type: Cigarette Cigarette Packs Per Day: 1 Cigarettes Per Day: 20.0 Years Smoked: 30 years Smoked in Last 30 Days: No e-Cigarette/Vaping Use: Never Used Second Hand Smoke Exposure: No Use of substances other than those prescribed or required for medical reasons: No Substance Use Type: Marijuana Advance Directives: Yes Advance Directives on File: Yes Advance Directives Date on File: 02/24/24 Do you have a plan to hurt others: No Plan service: No Current occupational status: retired Current occupation: [employer]/ rt Cognitive needs: No Hearing needs: No Vision needs: No Physical Exam 2 Vital Signs: Vital Signs: Last Vital Signs Temp 99.3 F 04/10/24 21:32 Pulse 92 04/10/24 21:32 Resp 20 04/10/24 21:32 BP 148/53 H 04/10/24 21:32 Pulse Ox 97 04/10/24 21:32 O2 Del Method Nasal Cannula 04/10/24 21:32 O2 Flow Rate 3 04/10/24 21:32 Oxygen Flow Rate 3 04/10/24 16:02 BMI result Body Mass Index 52.9 Appearance: Alert.?Oriented to person, place and time. No acute distress.?Normal affect. Eyes: Pupils equal, round and reactive to light.? ENT: Pharynx normal.?? Neck: Normal inspection.? Neck supple.?? CVS: Heart sounds normal. Normal heart rate and rhythm.? Pulses normal.?? Respiratory: No respiratory distress.? Lung sounds clear to auscultation bilaterally?? Abdomen: Soft and non-tender. Normoactive bowel sounds. Skin: Skin warm and dry.? Normal skin color.? ? Extremities: 4+ bilateral lower extremity pitting edema with blanchable erythema, blisters, warmth to touch.. No calf tenderness on palpation. Neuro: Moves all extremities spontaneously. Sensation intact bilaterally. Ambulates with normal steady gait. Course Reevaluation(s) Reevaluation #1: On review of serum labs he has a notable leukocytosis 20,800 with left shift, normocytic anemia that does not meet transfusion criteria, thrombocytosis. No lactic acidosis. chronic hyponatremia likely secondary to medications in addition to decreased oral fluid intake. No MARIAN. CRP of 21.57. At this time SIRS criteria with suspected infection and leukocytosis, no evidence of organ dysfunction or severe sepsis, adding coverage with vancomycin. Admission to medicine service, spoke with hospitalist team Medications Administered Discontinued Medications Generic Name Dose Route Start Last Admin Trade Name Freq PRN Reason Stop Dose Admin Cefazolin Sodium/Dextrose 2 gm in 50 mls @ 100 mls/hr 04/10/24 16:17 04/10/24 17:59 Ancef IV 04/10/24 16:46 Infused ONCE ONE Infusion Sodium Chloride 150 mls @ 999 mls/hr 04/10/24 17:45 04/10/24 18:08 Ns IV 04/10/24 17:54 Infused .Q10M MICHELLE Infusion Vancomycin HCl 2,000 mg in 500 mls @ 250 mls/hr 04/10/24 18:20 04/10/24 20:32 Vancomycin/Ns IV 04/10/24 20:19 Infused ONCE ONE Infusion Oxycodone HCl 10 mg 04/10/24 17:17 04/10/24 17:26 Oxycodone Hcl Immed Release 5 Mg Tablet PO 04/10/24 17:18 10 mg ONCE ONE Administration Ropinirole HCl 2 mg 04/10/24 17:15 04/10/24 17:51 Ropinirole Hcl 2 Mg Tablet PO 04/10/24 17:16 2 mg ONCE ONE Administration Medical Decision Making Medical Decision Making [facility] Narrative: Patient is a 69-year-old male with history of afib, was on Eliquis, recently discontinued in early March of 2024 advised for 3 weeks per urology recommendations given perinephric hematoma, HFpEF, lymphedema with chronic venous stasis, HTN, COPD on 3lpm home O2, JEFFRY on CPAP, seronegative RA, HTN, overactive bladder, obesity presents emergency department [facility] is present at bedside with concern for progressive erythema and warmth to the bilateral lower extremities. Has had multiple bouts of cellulitis in the past, has chronic lymphedema and venous stasis dermatitis but has an acute change from baseline as per HPI. Overall he is well-appearing, nontoxic, afebrile without tachycardia. Compartments are soft, does not appear consistent with necrotizing infection, no prolonged exposure to water recent travel. No purulent wound drainage, no history of MRSA colonization or infection, no history of IVDA. Obtaning serum labs in addition to blood cultures and lactic acid, will cover with cefazolin. Currently he does not meet SIRS criteria, at this time sepsis is not suspected. No open wounds to suggest osteomyelitis. Does not appear consistent with necrotizing infection. Positive Doppler signal pulse, he does have a history of atrial fibrillation not on anticoagulants, though I have a lower suspicion that would have bilateral DVT he does have risk factors including atrial fibrillation and not currently anticoagulated as aforementioned, venous duplex ultrasound to be obtained. not consistent with arterial occlusion Differential Diagnosis Differential Diagnoses: The differential diagnosis associated with the presentation includes (See narrative above) Admission/Observation Consideration of admission/observation: Escalation of care including admission/observation considered Lab Data MDM Lab Attestation statement: I reviewed the patient's lab results. 04/10/24 16:42 04/10/24 16:42 Labs: Lab Results 04/10/24 Range/Units 16:42 WBC 20.8 H (4.8-10.8) X10*3/uL RBC 3.22 L (4.60-5.80) X10*6/uL Hgb 10.3 L (14.0-18.0) g/dl Hct 30.2 L (42.0-52.0) % MCV 93.8 (80.0-98.0) fL MCH 32.0 (27.0-33.0) pg MCHC 34.1 (31.0-36.0) g/dl RDW 13.9 (11.0-16.0) % Plt Count 518 H (160-400) X10*3/uL MPV 9.5 (9.4-12.4) fL Immature Gran % (Auto) 1.1 H (0.0-0.4) % Neut % (Auto) 82.9 H (45-73) % Lymph % (Auto) 6.4 L (20-40) % [place] % (Auto) 8.4 (2-11) % Eos % (Auto) 1.0 (0-4) % Baso % (Auto) 0.2 (0-2) % Lymph # (Auto) 1.3 (1.2-4.9) X10*3/uL [place] # (Auto) 1.7 H (0.1-1.2) X10*3/uL Eos # (Auto) 0.2 (0.0-0.4) X10*3/uL Baso # (Auto) 0.1 (0.0-0.2) X10*3/uL Abs Immat Gran (auto) 0.22 H (0.00-0.03) X10*3/uL Absolute Neuts (auto) 17.3 H (2.0-8.3) x10*3/uL Absolute Nucleated RBC 0.000 (0.0-0.012) X10*3/uL Nucleated RBC % (auto) 0.0 (0.0-0.2) /100WBC Smear Tech's Comments VERIFIED ESR 102 H (0-15) MM/HR Sodium 130 L (135-145) mmol/L Potassium 4.5 D (3.3-5.1) mmol/L Chloride 90 L (96-108) mmol/L Carbon Dioxide 27 (22-29) mmol/L Anion Gap 18 (12-20) BUN 17 H (9-16) mg/dL Creatinine 1.04 (0.5-1.4) mg/dL Estim Creat Clear Calc 127.6 Estimated GFR > 60 Random Glucose 115 (60-115) mg/dL Lactic Acid 1.6 (0.5-2.0) mmol/L Calcium 8.4 (8.4-10.2) mg/dL Total Bilirubin 0.7 (0.0-1.0) mg/dL AST 80 H (5-37) U/L ALT 29 (0-40) U/L Alkaline Phosphatase 64 (39-117) U/L C-Reactive Protein 21.57 H (< or = 0.50) mg/dL B-Natriuretic Peptide 32 (<100) pg/mL Total Protein 7.0 (6.5-8.0) g/dL Albumin 2.5 L (3.5-5.0) g/dL Radiology Impression Discussion of test interpretation with radiology: I have reviewed the radiologist's reading. Radiologist Impression: Venous duplex ultrasound bilateral lower extremity Comparison: None Findings: The visualized deep veins are fully compressible with normal Doppler color flow and spectral tracings. No popliteal cyst. IMPRESSION: 1. No evidence of deep venous thrombosis. 2. Evaluation limited by body habitus. Independent Historian Clinical information obtained from an independent historian. History obtained from or confirmed by: Spouse and EMS External Record Review External record reviewed: Outpatient record Chronic Conditions Patient?s care impacted by: Other (See narrative above) Discharge Plan Discharge Clinical Impression: Cellulitis of both lower extremities Patient Disposition: Admitted As Inpatient
[2024-04-10 15:28] VITALS: BP 145/77; PULSE 90; O2SAT 95
[2024-04-10 16:02] VITALS: BP 150/62; PULSE 96; RESP 20; TEMP 36.8; O2SAT 96; BMI 52.9
--- OUTSIDE RECORDS SUMMARY | 2024-04-10 16:15 | XMS_ITS ---
Author Organization [facility] Address [address] [place] [address] Care Team Providers Care Table Keeper Name Role Phone Diego Gallagher Primary Care Provider Unav ailable Nancy Hardy Unavailable [phone] REASON FOR VISIT Reschedule Encounters Encounter Location Date Provider Diagnosis [facility] [address] [place] [address] 03/22/2024 Nancy Hardy Plan Of Treatment No Information Progress Notes * Dinh BUCKLEY RDOB:[birth year] (69 yo M)Acc No.[id number]:03/22/2024 Patient:?Dinh BUCKLEY :1955???Age:69 Y???Sex:Male Address:[address] [place], [place] [address], [address] * true * Date:? Generated for Printi ng/Faxing/eTransmitting on:?04/10/2024 03:07 PM EST
--- OUTSIDE RECORDS SUMMARY | 2024-04-10 16:15 | XMS_ITS | Encounter Summary ---
Author Organization [facility] Address [address] [place] [address] Care Team Providers Care Data Processing Auditor Name Role Phone Venus Belcher MD Primary Care Provider + Encounter Details Date Type Department Care Team (Late st Contact Info) Description 04/06/2024 Lab Requisition [facility] - Main Lab [address] [place] [address] Venus Belcher MD [address] [facility] [address] [place], [place] [id number] Cellulitis, unspecified Social History Tobacco Use Types Packs/Day Years Used Date Smoking Tobacco: Never Assessed Sex and Gender Information Value Date Recorded Sex Assigned at Not on file Legal Sex Male 1:13 AM EST Gender Identity Not on file Sexual Orientation Not on file documented as of this encounter Plan of Treatment Not on file documented as of this encounter Procedures Procedure Name Priority Date/Time Associated Diagnosis Comments COMPREHENSIVE METABOLIC PANEL Routine 04/06/2024 9:00 AM EST Cellulitis, unspecified documented in this encounter Results * (ABNORMAL) Comprehensive metabolic panel (04/06/2024 9:00 AM EST) Sodium 129(L) 133 - 145 mmol/L LAB CHEMISTRY METHOD 04/06/2024 11:35 AM EST [facility] Potassium 4.5 3.5 - 5.5 mmol/L LAB CHEMISTRY METHOD 04/06/2024 11:35 AM EST [facility] Comment:Hemolysis present Chloride 94(L) 96 - 110 mmol/L LAB CHEMISTRY METHOD 04/06/2024 11:35 AM [facility] CO2 23 21 - 32 mmol/L LAB CHEMISTRY METHOD 04/06/2024 11:35 AM [facility] Anion Gap 12(H) 3 - 11 LAB CHEMISTRY METHOD 04/06/2024 11:35 AM [facility] Glucose 112(H) 70 - 100 mg/dL LAB CHEMISTRY METHOD 04/06/2024 11:35 AM [facility] BUN 12 5 - 25 mg/dL LAB CHEMISTRY METHOD 04/06/2024 11:35 AM [facility] Creatinine 1.03 0.70 - 1.30 mg/dL LAB CHEMISTRY METHOD 04/06/2024 11:35 AM [facility] eGFR 80 >=60 mL/min/1. 73m2 LAB CHEMISTRY METHOD 04/06/2024 11:35 AM [facility] Comment:Calculation based on the??Chronic Kidney Disease Epidemiology Collaboration (CKD-EPI) equation refit??without adjustment for race. BUN/Creatinine Ratio 11.7 LAB CHEMISTRY METHOD 04/06/2024 11:35 AM [facility] Calcium 8.9 8.5 - 10.5 mg/dL LAB CHEMISTRY METHOD 04/06/2024 11:35 AM [facility] AST (SGOT) 42 10 - 42 unit/L LAB CHEMISTRY METHOD 04/06/2024 11:35 AM [facility] Comment:Hemolysis present ALT (SGPT) 30 10 - 60 unit/L LAB CHEMISTRY METHOD 04/06/2024 11:35 AM [facility] Alkaline Phosphatase 75 42 - 121 unit/L LAB CHEMISTRY METHOD 04/06/2024 11:35 AM [facility] Total Protein 6.8 6.0 - 8.0 g/dL LAB CHEMISTRY METHOD 04/06/2024 11:35 AM [facility] Albumin 2.1(L) 3.2 - 5.0 g/dL LAB CHEMISTRY METHOD 04/06/2024 11:35 AM [facility] Total Bilirubin 1.3 0.0 - 1.4 mg/dL LAB CHEMISTRY METHOD 04/06/2024 11:35 AM EST [facility] Blood Venous blood specimen / Unknown Venipuncture / Unknown 04/06/2024 9:00 AM EST 04/06/2024 9:48 AM EST us Venus Belcher MD LAB BLOOD ORDERABLES Fin al Result [facility] [address] [place] [address], documented in this encounter Visit Diagnoses Diagnosis Cellulitis, unspecified documented in this encounter Care Teams Data Processing Auditor Relationship Specialty Start Date End Date Venus Belcher MD [address] [place] [id number] PCP - General Family Medicine 04/06/24 documented as of this encounter
--- OUTSIDE RECORDS SUMMARY | 2024-04-10 16:15 | XMS_ITS | Clinical Summary ---
Author Organization [address] [facility] Address [address] [place] [address] Phone Care Team Providers Care Cloth Printer Name Role Phone Venus Belcher MD Primary Care Provider + Encounters Date Type Department Care Team Description 04/06/[address] [facility] [address] [place] [address] Venus Belcher MD Cellulitis, unspecified 04/06/[address] [facility] [address] [place] [address] Venus Belcher MD Cellulitis, unspecified from Last 3 Months Social History Tobacco Use Types Packs/Day Years Used Date Smoking Tobacco: Never Assessed Sex and Gender Information Value Date Recorded Sex Assigned at Not on file Legal Sex Male 1:13 AM EST Gender Identity Not on file Sexual Orientation Not on file Plan of Treatment Health Maintenance Due Date Last Done Comments DTaP,Tdap,and Td Vaccines (1 - Tdap) 02/03/1976 Pneumococcal Vaccine: 50+ Ye ars (1 of 1 - PCV) 2007 Zoster Vaccines (1 of 2) 2007 Abdominal Aortic Aneurysm (A AA) Screen 01/20/2022 Cholesterol Screening (Lipid Panel) 01/20/2022 Colorectal Cancer Screening: Colonoscopy 01/20/2022 Depression Screening 01/20/2022 Hepatitis C Screening 01/20/2022 Medicare Annual Wellness Visit 01/20/2022 Social Influencers of Health Screening 01/20/2022 Falls Risk Assessment 2022 COVID-19 Vaccine ( - 2023-2 5 season) 2023 Influenza Vaccine [...] patient's age to complete this topic Meningococcal B Vacine Aged Out No lo nger eligible based on patient's age to complete this topic RSV Immunization Patients Un jacquelin 20 months Aged Out No longer eligible b ased on patient's age to complete this topic Varicella Vaccines Aged Out No longer eligible based on patient's age to complete this topic Procedures Procedure Name Priority Date/Time Associated Diagnosis Comments COMPLETE BLOOD COUNT Routine 04/06/2024 1:21 PM EST Cellulitis, unspecified COMPREHENSIVE METABOLIC PANEL Routine 04/06/2024 9:00 AM EST Cellulitis, unspecified from Last 3 Months Results * (ABNORMAL) Complete blood count (04/06/2024 1:21 PM EST) WBC 15.1(H) 4.8 - 10.8 K/mcL LAB HEMETOLOGY METHOD 04/06/2024 3:24 PM [facility] RBC 3.30(L) 4.50 - 5.50 M/mcL LAB HEMETOLOGY METHOD 04/06/2024 3:24 PM [facility] Hemoglobin 10.9(L) 13.5 - 17.5 g/dL LAB HEMETOLOGY METHOD 04/06/2024 3:24 PM [facility] Hematocrit 32.9(L) 42.0 - 54.0 % LAB HEMETOLOGY METHOD 04/06/2024 3:24 PM [facility] MCV 98.5(H) 79.0 - 98.0 FL LAB HEMETOLOGY METHOD 04/06/2024 3:24 PM EST [facility] MCH 32.6(H) 27.0 - 32.0 pcg LAB HEMETOLOGY METHOD 04/06/2024 3:24 PM EST [facility] MCHC 33.1 32.0 - 37.0 g/dL LAB HEMETOLOGY METHOD 04/06/2024 3:24 PM EST [facility] RDW 13.9 11.0 - 15.0 % LAB HEMETOLOGY METHOD 04/06/2024 3:24 PM EST [facility] Platelets 476(H) 130 - 400 K/mcL LAB HEMETOLOGY METHOD 04/06/2024 3:24 PM EST [facility] MPV 9.8 7.0 - 11.0 FL LAB HEMETOLOGY METHOD 04/06/2024 3:24 PM EST [facility] NRBC 0.0 <1.0 % LAB HEMETOLOGY METHOD 04/06/2024 3:24 PM EST [facility] NRBC Absolute 0.00 <0.10 K/mcL LAB HEMETOLOGY METHOD 04/06/2024 3:24 PM EST [facility] Blood Venous blood specimen / Unknown Venipuncture / Unknown 04/06/2024 1:21 PM EST 04/06/2024 2:57 PM EST us Venus Belcher MD LAB BLOOD ORDERABLES Fin al Result [facility] [address] [place] [address], * (ABNORMAL) Comprehensive metabolic panel (04/06/2024 9:00 AM EST) Sodium 129(L) 133 - 145 mmol/L LAB CHEMISTRY METHOD 04/06/2024 11:35 AM [facility] Potassium 4.5 3.5 - 5.5 mmol/L LAB CHEMISTRY METHOD 04/06/2024 11:35 AM [facility] Comment:Hemolysis present Chloride 94(L) 96 - 110 mmol/L LAB CHEMISTRY METHOD 04/06/2024 11:35 AM [facility] CO2 23 21 - 32 mmol/L LAB CHEMISTRY METHOD 04/06/2024 11:35 AM [facility] Anion Gap 12(H) 3 - 11 LAB CHEMISTRY METHOD 04/06/2024 11:35 AM [facility] Glucose 112(H) 70 - 100 mg/dL LAB CHEMISTRY METHOD 04/06/2024 11:35 AM [facility] BUN 12 5 - 25 mg/dL LAB CHEMISTRY METHOD 04/06/2024 11:35 AM [facility] Creatinine 1.03 0.70 - 1.30 mg/dL LAB CHEMISTRY METHOD 04/06/2024 11:35 AM [facility] eGFR 80 >=60 mL/min/1. 73m2 LAB CHEMISTRY METHOD 04/06/2024 11:35 AM [facility] Comment:Calculation based on the??Chronic Kidney Disease Epidemiology Collaboration (CKD-EPI) equation refit??without adjustment for race. BUN/Creatinine Ratio 11.7 LAB CHEMISTRY METHOD 04/06/2024 11:35 AM [facility] Calcium 8.9 8.5 - 10.5 mg/dL LAB CHEMISTRY METHOD 04/06/2024 11:35 AM [facility] AST (SGOT) 42 10 - 42 unit/L LAB CHEMISTRY METHOD 04/06/2024 11:35 AM [facility] Comment:Hemolysis present ALT (SGPT) 30 10 - 60 unit/L LAB CHEMISTRY METHOD 04/06/2024 11:35 AM [facility] Alkaline Phosphatase 75 42 - 121 unit/L LAB CHEMISTRY METHOD 04/06/2024 11:35 AM EST [facility] Total Protein 6.8 6.0 - 8.0 g/dL LAB CHEMISTRY METHOD 04/06/2024 11:35 AM EST [facility] Albumin 2.1(L) 3.2 - 5.0 g/dL LAB CHEMISTRY METHOD 04/06/2024 11:35 AM EST [facility] Total Bilirubin 1.3 0.0 - 1.4 mg/dL LAB CHEMISTRY METHOD 04/06/2024 11:35 AM EST [facility] Blood Venous blood specimen / Unknown Venipuncture / Unknown 04/06/2024 9:00 AM EST 04/06/2024 9:48 AM EST us Venus Belcher MD LAB BLOOD ORDERABLES Fin al Result [facility] [address] [place] [address], from Last 3 Months Insurance MEDICARE [facility] Advance Directives Documents on File Type Date Recorded Patient Ranch Manager Expl anation Health Care Decision (hx) 04/17/2016 AD [place] DIRECTIVE Health Care Decision (hx) 04/17/2016 AD [place] DIRECTIVE Health Care Decision (hx) 04/17/2016 AD [place] DIRECTIVE Health Care Decision (hx) 04/17/2016 AD [place] DIRECTIVE Care Teams Cloth Printer Relationship Specialty Start Date End Date Venus Belcher MD [address] [place] [address] PCP - General Family Medicine 04/06/24
--- OUTSIDE RECORDS SUMMARY | 2024-04-10 16:16 | XMS_ITS | Patient Health Record ---
Author Organization [facility] Address [address] [place] [address] Care Team Providers Care Fiberglass Insulation Installer Name Role Phone Diego Gallagher Primary Care Provider Unav ailNancy Dowd Unavailable [phone] Allergies No Known Allergies Reason For Referral No Information Medications Medication SIG (Take, Route, Frequency, Duration) Notes Start Date End Date Status oxyBUTYnin Chloride Active Eliquis 5 MG 1 tablet Orally Twic e a day for 30 day(s) Active Spironolactone 25 MG 1 tablet Orally Active Naproxen 250 MG 1 tablet with food o r milk as needed Orally every 12 hrs Not-Taking Metoprolol Succinate 50 MG 1 capsule Orally Once a day Not-Taking Bactrim 400-80 MG 1 tablet Orally Once a day Not-Taking Aspirin 81 MG 1 tablet Orally Once a day Not-Taking Actemra 162 MG/0.9ML as directed Subcutaneous Active Nitrofurantoin Macrocrystal 100 MG 1 capsule at bedtime with food or milk Orally Once a day Active Silvadene 1 % 1 application Externally Once a day Active Pregabalin 150 MG 1 capsule Orally Onc e a day X3 a day Active Docusate Sodium-Casanthranol Active Methocarbamol 500 MG 1.5 tablets Orally every 4 hrs as needed Active methIMAzole 5 MG 1 tablet Orally Once a day Not-Taking rOPINIRole HCl 2 MG 1 tablet 1 to 3 hour s before bedtime Orally Once a day X3 a day Active Cefuroxime Axetil 500 MG 1 tablet Orally every 12 hrs Active Lactulose Active Bumetanide 1 MG 1 tablet Orally Once a day Active Ammonium Lactate 12 % 1 application Externally Twice a day Active Finasteride 5 MG 1 tablet Orally Once a day Active DULoxetine HCl 60 MG 1 capsule Orally On ce a day Active Furosemide 40 MG 1 tablet Orally Once a day Active Anoro Ellipta 62.5-25 MCG/ACT 1 puff Inhalation Once a day Active Albuterol as needed Active Doxazosin Mesylate 8 MG 1 tablet Orally Once a day Active Atorvastatin Calcium 80 [...] Problem Status W/U Status Risk Notes Problem 141956753 Neuropathy (G62.9) Active confirmed Problem 960415218 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) Active confirmed Problem Mononeuropathy of lower limb (731870305) Neuritis of right foot (G57.91) Active confirmed Problem 57786029 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 Problem Atherosclerosis of buckland artery of both lower extremities, with unspecified presence of clinical manifestation (I70.203) Active confirmed Problem 42284076293693569 Atherosclerosi s of artery of both lower extremities (I70.203) Active confirmed Problem 64347838498463352 Neuropathic ul cer of right foot with fat layer exposed (L97.512) Active confirmed Vital Signs Blood pressure diastolic 70 mm Hg 01/09/2024 Height 6ft 4in in 01/09/2024 Blood pressure systolic 132 mm Hg 01/09/2024 Weight 425 lbs 01/09/2024 BMI 51.73 kg/m2 01/09/2024 Encounters Encounter Location Date Provider Diagnosis [facility] [address] [place] [address] 04/11/2023 Nancy Perica Atherosclerosis of buckland artery of both lower extremities, with unspecified presence of clinical manifestation I70.203 ; Neuropathy G62.9 ; Tinea unguium B35.1 ; Pain in right toe(s) M79.674 and Pain in left toe(s) M79.[address] [address] 06/18/2023 Nancy Hardy Atherosclerosis of buckland artery of both lower extremities, with unspecified presence of clinical manifestation I70.203 ; Neuropathy G62.9 ; Tinea unguium B35.1 ; Pain in right toe(s) M79.674 and Pain in left toe(s) M79.[address] [address] 01/09/2024 Nancy Hardy Neuropathy G62.9 ; Tinea unguium B35.1 ; Atherosclerosis of buckland artery of both lower extremities, with unspecified presence of clinical manifestation I70.203 ; Pain in right toe(s) M79.674 and Pain in left toe(s) M79.[address] [address] 10/27/2023 Nancy Hardy [address] [address] 03/22/2024 Nancy Hardy [address] [address] 04/09/2024 Nancy Hardy Assessments Encounter Date Diagnosis (ICD Code) Assessment Notes Treatment Notes Treatment Clinical Notes Section Notes 04/11/2023 Neuropathy (ICD-10 - G62.9) 04/11/2023 Atherosclerosis of buckland artery of both lower extremities, with unspecified presence of clinical manifestation (ICD-10 - I70.203) 06/18/2023 Atherosclerosis of buckland artery of both lower extremities, with unspecified presence of clinical manifestation (ICD-10 - I70.203) 01/09/2024 Tinea unguium (ICD-10 - B35.1) 01/09/2024 Neuropathy (ICD-10 - G62.9) 01/09/2024 Atherosclerosis of buckland artery of both lower extremities, with unspecified [...] X ray : Foot, left 3V 09/18/2022 Insurance Providers Payer Name Payer Address Payer Phone Subscriber Number Group Number Insured Name Patient Relationship to Insured Coverage Start Date Coverage End Date Medicare [employer] [address] [place] [address] [id number] Dinh Craven Self - [facility] [address] [place] [address] [id number] Dinh Craven Self - patient is the [...]
--- OUTSIDE RECORDS SUMMARY | 2024-04-10 16:16 | XMS_ITS ---
Author Organization [facility] Address [address] [facility] [place] [address] Care Team Providers Care Survey Engineer Name Role Phone Diego Gallagher Primary Care Provider Unav ailable MohamudguillermoNancy Unavailable [phone] Medications Medication SIG (Take, Route, Frequency, Duration) Notes Start Date End Date Status Naproxen 250 MG 1 tablet with food [...] 1 tablet Orally Once a day Active Pregabalin 150 MG 1 capsule Orally Onc e a day X3 a day Active Methocarbamol 500 MG 1.5 tablets Orally every 4 hrs as needed Active rOPINIRole HCl 2 MG 1 tablet 1 to 3 hour s before bedtime Orally Once a day X3 a day Active DULoxetine HCl 60 MG 1 capsule Orally On ce a day Active Anoro Ellipta 62.5-25 MCG/ACT 1 puff Inhalation Once a day Active Albuterol as needed Active Doxazosin Mesylate 8 MG 1 tablet Orally Once a day Active Atorvastatin Calcium 80 MG 1 tablet Orally Once a day Active oxyBUTYnin Chloride Active Docusate Sodium-Casanthranol Active Eliquis 5 MG 1 tablet Orally Twic e a day for 30 day(s) Active Spironolactone 25 MG 1 tablet Orally Active Bumetanide 1 MG 1 tablet Orally Once a day Active Nitrofurantoin Macrocrystal 100 MG 1 capsule at bedtime with food or milk Orally Once a day Active Silvadene 1 % 1 application Externally Once a day Active Cefuroxime Axetil 500 MG 1 tablet Orally every 12 hrs Active Lactulose Active Ammonium Lactate 12 % 1 application Externally Twice a day Active Actemra 162 MG/0.9ML as directed Subcutaneous Active Encounters Encounter Location Date Provider Diagnosis [facility] [address] [place] [address] 03/24/2024 Nancy Hardy Plan Of Treatment No Information Progress Notes * Dinh BUCKLEY RDOB:[birth year] (69 yo M)Acc No.[id number]:03/24/2024 Progress Note Patient:?Dinh BUCKLEY Provider:?Nancy Hardy DPM :1955???Age:69 Y???Sex:Male Raj e:03/24/2024 Address:[address] [place], [place] [address] Pcp:MARU Goldstein Subjective: * Chief Complaints: * ??? * Medical History:?Arthritis, Asthma, Back,Hip,and Knee pain, Lung disease, Neuropathy, Poor circulation, Thyroid, Chicken pox, Joint implants/screws, A fib. * Medications:?Taking Actemra 162 MG/0.9ML Solution Prefilled Syringe as directed Subcutaneous , Taking Silvadene 1 % Cream 1 application Externally Once a day , Taking Nitrofurantoin Macrocrystal 100 MG Capsule 1 capsule at bedtime with food or milk Orally Once a day , Taking Lactulose , Taking Cefuroxime Axetil 500 MG Tablet 1 tablet Orally every 12 hrs , Taking Ammonium Lactate 12 % Lotion 1 application Externally Twice a day , Taking Bumetanide 1 MG Tablet 1 tablet Orally Once a day , Taking Docusate Sodium-Casanthranol , Taking oxyBUTYnin Chloride , Taking Spironolactone 25 MG Tablet 1 tablet Orally , Taking Eliquis 5 MG Tablet 1 tablet Orally Twice a day , Taking Albuterol , Notes to Pharmacist: as needed, Taking Anoro Ellipta 62.5-25 MCG/ACT Aerosol Powder Breath Activated 1 puff Inhalation Once a day , Taking Atorvastatin Calcium 80 MG Tablet 1 tablet Orally Once a day , Taking Doxazosin Mesylate 8 MG Tablet 1 tablet Orally Once a day , Taking DULoxetine HCl 60 MG Capsule Delayed Release Particles 1 capsule Orally Once a day , Taking Finasteride 5 MG Tablet 1 tablet Orally Once a day , Taking Furosemide 40 MG Tablet 1 tablet Orally Once a day , Taking Methocarbamol 500 MG Tablet 1.5 tablets Orally every 4 hrs , Notes to Pharmacist: as needed, Taking Pregabalin 150 MG Capsule 1 capsule Orally Once a day , Notes to Pharmacist: X3 a day, Taking rOPINIRole HCl 2 MG Tablet 1 tablet 1 to 3 hours before bedtime Orally Once a day , Notes to Pharmacist: X3 a day, Not-Taking/PRN methIMAzole 5 MG Tablet 1 tablet Orally Once a day , Not- Taking/PRN Metoprolol Succinate 50 MG Capsule ER 24 Hour Sprinkle 1 capsule Orally Once a day , Not-Taking/PRN Naproxen 250 MG Tablet 1 tablet with food or milk as needed Orally every 12 hrs , Not-Taking/PRN Aspirin 81 MG Tablet Chewable 1 tablet Orally Once a day , Not-Taking/PRN Bactrim 400-80 MG Tablet 1 tablet Orally Once a day Objective: * Vitals:? Assessment: Plan: * Treatment: * Images: * The named appointment provid er may or may not be the originator of this progress note, and it is not deemed complete until electronically signed by the appointment provider. Sign off status: Pending * Provider:?Nancy Hardy DPM Date:?06/2024 Generated for Katlin ramirez/Cece/Jemima on:?04/10/2024 03:07 PM EST
--- OUTSIDE RECORDS SUMMARY | 2024-04-10 16:16 | XMS_ITS | Encounter Summary ---
Author Organization [facility] Address [address] [place] [address] Care Team Providers Care Government Professor Name Role Phone Venus Belcher MD Primary Care Provider + Encounter Details Date Type Department Care Team (Late st Contact Info) Description 04/06/[address] [facility] [address] [place] [address] Venus Belcher MD [address] [facility] [address] [place], [place] [id number] Cellulitis, unspecified Social History Tobacco Use Types [...] Routine 04/06/2024 1:21 PM EST Cellulitis, unspecified documented in this encounter Results * (ABNORMAL) Complete blood count (04/06/2024 1:21 PM EST) WBC 15.1(H) 4.8 - 10.8 K/mcL LAB HEMETOLOGY METHOD 04/06/2024 3:24 PM EST [facility] RBC 3.30(L) 4.50 - 5.50 M/mcL LAB HEMETOLOGY METHOD 04/06/2024 3:24 PM EST [facility] Hemoglobin 10.9(L) 13.5 - 17.5 g/dL LAB HEMETOLOGY METHOD 04/06/2024 3:24 PM EST [facility] Hematocrit 32.9(L) 42.0 - 54.0 % LAB HEMETOLOGY METHOD 04/06/2024 3:24 PM [facility] MCV 98.5(H) 79.0 - 98.0 FL LAB HEMETOLOGY METHOD 04/06/2024 3:24 PM [facility] MCH 32.6(H) 27.0 - 32.0 pcg LAB HEMETOLOGY METHOD 04/06/2024 3:24 PM EST [facility] MCHC 33.1 32.0 - 37.0 g/dL LAB HEMETOLOGY METHOD 04/06/2024 3:24 PM [facility] RDW 13.9 11.0 - 15.0 % LAB HEMETOLOGY METHOD 04/06/2024 3:24 PM [facility] Platelets 476(H) 130 - 400 K/mcL LAB HEMETOLOGY METHOD 04/06/2024 3:24 PM EST [facility] MPV 9.8 7.0 - 11.0 FL LAB HEMETOLOGY METHOD 04/06/2024 3:24 PM EST [facility] NRBC 0.0 <1.0 % LAB HEMETOLOGY METHOD 04/06/2024 3:24 PM [facility] NRBC Absolute 0.00 <0.10 K/mcL LAB HEMETOLOGY METHOD 04/06/2024 3:24 PM [facility] Blood Venous blood specimen / Unknown Venipuncture / Unknown 04/06/2024 1:21 PM EST 04/06/2024 2:57 PM EST us Venus Belcher MD LAB BLOOD ORDERABLES Fin al Result [facility] [address] [place] [address], documented in this encounter Visit Diagnoses Diagnosis Cellulitis, unspecified documented in this encounter Care Teams Government Professor Relationship Specialty Start Date End Date Venus Belcher MD [address] [address] PCP - General Family Medicine 04/06/24 documented as of this encounter
--- OUTSIDE RECORDS SUMMARY | 2024-04-10 16:16 | XMS_ITS ---
Author Organization [facility] Address [address] [place] [address] Care Team Providers Care Telephone Switchboard Operator Name Role Phone Diego Gallagher Primary Care Provider Unav ailable Nancy Hardy Unavailable [phone] REASON FOR VISIT cx appt Encounters Encounter Location Date Provider Diagnosis [facility] [address] [place] [address] 04/09/2024 Nancy Hardy Plan Of Treatment No Information Progress Notes * Dinh BUCKLEY RDOB:[birth year] (69 yo M)Acc No.[id number]:04/09/2024 Patient:?Dinh BUCKLEY :1955???Age:69 Y???Sex:Male Address:[address] [place], [place] [address], [address] * true * Date:? Generated for Printi ng/Faraizag/eTransmitting on:?04/10/2024 03:07 PM EST
[2024-04-10 16:56] LABS: Basophils Absolute Auto 0.1 X10*3/uL (0.0-0.2); Basophils Percent Auto 0.2 % (0-2); Eosinophils Absolute Auto 0.2 X10*3/uL (0.0-0.4); Hematocrit 30.2 % (42.0-52.0); Hemoglobin 10.3 g/dl (14.0-18.0); Imm Gran Abs Auto 0.22 X10*3/uL (0.00-0.03); Imm Gran Pct Auto 1.1 % (0.0-0.4); Lymphocytes Absolute Auto 1.3 X10*3/uL (1.2-4.9); Lymphocytes Percent Auto 6.4 % (20-40); MANUAL DIFF FLAG SCAN; Mean Corpuscular HGB Conc 34.1 g/dl (31.0-36.0); Mean Corpuscular Volume 93.8 fL (80.0-98.0); Mean Platelet Volume 9.5 fL (9.4-12.4); Monocytes Absolute Auto 1.7 X10*3/uL (0.1-1.2); Monocytes Percent Auto 8.4 % (2-11); Neutrophils Absolute Auto 17.3 x10*3/uL (2.0-8.3); Neutrophils Percent Auto 82.9 % (45-73); Platelet Count 518 X10*3/uL (160-400); Red Blood Count 3.22 X10*6/uL (4.60-5.80); Red Cell Distribution Width 13.9 % (11.0-16.0); SCAN SMEAR FLAG 1; White Blood Count 20.8 X10*3/uL (4.8-10.8)
[2024-04-10 17:13] LABS: Lactic Acid 1.6 mmol/L (0.5-2.0)
[2024-04-10 17:16] LABS: Alanine Aminotransferase 29 U/L (0-40); Albumin Level 2.5 g/dL (3.5-5.0); Alkaline Phosphatase 64 U/L (39-117); Anion Gap 18 (12-20); Aspartate Amino Transferase 80 U/L (5-37); Bilirubin Total 0.7 mg/dL (0.0-1.0); Blood Urea Nitrogen 17 mg/dL (9-16); C Reactive Protein 21.57 mg/dL (< or = 0.50); Calcium 8.4 mg/dL (8.4-10.2); Carbon Dioxide 27 mmol/L (22-29); Chloride 90 mmol/L (96-108); Creatinine Clr Calc Pharmacy 127.6; Estimated Glomerular Filt Rate > 60; Glucose Random 115 mg/dL (60-115); Potassium 4.5 mmol/L (3.3-5.1); Sodium 130 mmol/L (135-145)
[2024-04-10] MEDS: ceFAZolin Sodium/Dextrose,Iso 2 GM/50 ML PIGGYBACK IV (17:26)
[2024-04-10] MEDS: oxyCODONE HCl Immed Release 5 MG TABLET 10 MG PO (17:26)
[2024-04-10 17:38] LABS: SLIDE REVIEW VERIFIED
[2024-04-10] MEDS: rOPINIRole HCL 2 MG TABLET PO (17:51)
[2024-04-10 18:22] LABS: B Type Natriuretic Peptide 32 pg/mL (<100)
[2024-04-10] MEDS: vancomycin/NS 2,000 MG/500 ML PLAST..BAG 250 MG IV (18:32)
[2024-04-10 18:44] LABS: Erythrocyte Sedimentation Rate 102 MM/HR (0-15)
--- NOTE | 2024-04-10 20:29 | P.HPHOSP_ITS ---
History of Present Illness Date of Service: 04/10/24 Chief Complaint: Worsening cellulitis of both legs 69-year-old male with a past medical history of paroxysmal atrial fibrillation, chronic diastolic congestive heart failure, chronic lymphedema, hypertension, chronic hypoxic respiratory failure due to COPD on 3L home oxygen, obstructive sleep apnea (JEFFRY) on CPAP, seronegative rheumatoid arthritis, hyperthyroidism (now euthyroid), hypertension, overactive bladder, and morbid obesity. Recent hospitalization from March 24 to March 29 for sepsis due to pneumonia, discharged with Augmentin and doxycycline. During that hospitalization, a 13.3 x 7.3 x 12.1 cm perinephric hematoma was discovered, and Eliquis is on hold until April 14. He presents today from a long-term facility (SNF) due to redness and pain in both legs, with no fever. Concern for worsening cellulitis. White blood cell count (WBC) is 20,000. He received IV vancomycin and cefazolin in the emergency department. Ultrasound of the legs was negative for deep vein thrombosis (DVT). Review of Systems 2 Review of Systems: Gen: no fever Resp: no sob, no cough CV: no chest, no MATUTE, no leg edema GI: No n/v, no abd pain MSK: pain/redness of both legs Neuro: No confusion Yes all other systems are reviewed and are negative [facility] Medical History Sepsis COPD (chronic obstructive pulmonary disease) Acute respiratory failure due to COVID-19 Community acquired pneumonia Viral sepsis Fatigue Acute on chronic diastolic CHF (congestive heart failure) COVID Morbid obesity Paroxysmal atrial fibrillation Congestive heart failure Testicular swelling Osteoarthritis of right knee Melanoma History of cardioversion Hereditary lymphedema Venous insufficiency Morbid obesity Lymphedema COPD (chronic obstructive pulmonary disease) Sensory neuropathy COVID-19 Respiratory failure with hypoxia Restrictive lung disease JEFFRY on CPAP MATUTE (dyspnea on exertion) Chronic cystitis Bladder outlet obstruction Restless leg syndrome Traumatic complete tear of right rotator cuff Injury of right rotator cuff History of diverticulitis History of umbilical hernia Family History Father Arthritis Diabetes Mother Arthritis Kidney stones Family/Other Arthritis Sister No problems noted. Sister No problems noted. Son No problems noted. Surgical History Hx of colonoscopy History of appendectomy History of arthroscopy of left knee Social History Household Members: Spouse Household Members Other:: Housing: Condominium Do you presently have visiting nurse or other home services: Yes (PT at house.) Unable to assess alcohol history related to: Unknown Alcohol intake: current Alcohol intake frequency: holidays/special occasions only Alcohol type: beer Comment: Refused bed alarm due to alarm sensitivity when changing positions. 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 Cognitive needs: No Hearing needs: No Vision needs: No Meds Allergies Allergy/AdvReac Type Severity Reaction Status Date / Time No Known Allergies Allergy Verified 04/10/24 16:04 [No Known Allergies*] Home Medications ?Medication ?Instructions ?Recorded ?Confirmed ?Last Taken ?Type albuterol sulfate 90 mcg/actuation 2 puff PO Q6H PRN for wheezing 10/13/22 04/10/24 Unknown History aerosol inhaler ammonium lactate 12 % lotion 1 appl topical DAILY 11/20/23 04/10/24 03/24/24 History oxybutynin chloride 10 mg 10 mg PO DAILY 02/19/24 04/10/24 04/09/24 20:00 History tablet,extended release 24 hr spironolactone 25 mg tablet 25 mg PO DAILY 03/14/24 04/10/24 04/10/24 08:00 History Physical Exam 2 Vital Signs and Narrative: Vital Signs: Last Vital Signs Temp 98.2 F 04/10/24 16:02 Pulse 96 04/10/24 16:02 Resp 20 04/10/24 16:02 BP 150/62 H 04/10/24 16:02 Pulse Ox 96 04/10/24 16:02 O2 Del Method Nasal Cannula 04/10/24 16:02 Oxygen Flow Rate 3 04/10/24 16:02 BMI result Body Mass Index 52.9 Const: Other: Constitutional: Alert, in no distress, overweight. Mental Status: Oriented to person, place and time. Eyes: Pupils are equal, round and reactive to light. Ear, Nose and Throat: Oropharynx clear, mucous membranes moist. Ears and nose without deformities. Trachea midline. Respiratory: Clear to auscultation. No wheezing, rales or rhonchi. Cardiovascular: S1 S2 regular. No murmurs, rubs or gallops. Gastrointestinal: Abdomen soft, non-tender, non-distended. Normal bowel sounds.? Neurologic: Cranial nerves II-XII grossly intact. No focal neurological deficits. Moves all extremities spontaneously.? Skin: bilateral redness of both legs, warm, tense-- Musculoskeletal: No cyanosis or clubbing. Psychiatric: Normal mood and affect? Results Labs 04/10/24 16:42 04/10/24 16:42 Labs: Laboratory Results - last 24 hr 04/10/24 16:42 MCV 93.8 MCH 32.0 MCHC 34.1 RDW 13.9 Plt Count 518 H MPV 9.5 Immature Gran % (Auto) 1.1 H Neut % (Auto) 82.9 H Lymph % (Auto) 6.4 L [place] % (Auto) 8.4 Eos % (Auto) 1.0 Baso % (Auto) 0.2 Lymph # (Auto) 1.3 [place] # (Auto) 1.7 H Eos # (Auto) 0.2 Baso # (Auto) 0.1 Abs Immat Gran (auto) 0.22 H Absolute Neuts (auto) 17.3 H Absolute Nucleated RBC 0.000 Nucleated RBC % (auto) 0.0 Smear Tech's Comments VERIFIED ESR 102 H Anion Gap 18 Estim Creat Clear Calc 127.6 Estimated GFR > 60 Random Glucose 115 Lactic Acid 1.6 Calcium 8.4 Total Bilirubin 0.7 AST 80 H ALT 29 Alkaline Phosphatase 64 C-Reactive Protein 21.57 H B-Natriuretic Peptide 32 Total Protein 7.0 Albumin 2.5 L Assessment and Plan (1) Cellulitis: Qualifiers: Site of cellulitis: extremity Site of cellulitis of extremity: lower extremity Laterality: left Qualified Code(s): L03.116 - Cellulitis of left lower limb Status: Acute Plan 69-year-old male with a past medical history of paroxysmal atrial fibrillation, chronic diastolic congestive heart failure, chronic lymphedema, hypertension, chronic hypoxic respiratory failure due to COPD on 3L home oxygen, obstructive sleep apnea (JEFFRY) on CPAP, seronegative rheumatoid arthritis, hyperthyroidism (now euthyroid), hypertension, overactive bladder, and morbid obesity. He also has chronic lymphedema of the lower extremities and presents with bilateral cellulitis of both legs, meeting sepsis criteria. Sepsis d/t serina cellulitis of legs underlying lympadema US negative for dvt continu Vanco started 04/10, Ceftriaxone for gram negative topical steroid follow cultures ID consult Paroxysmal AFib Continue amiodarone because of perinephric hematoma from last hospitalization, eliquis is to be restared on 04/14 HFpEF-euvolemic continue bumex. HTN - aldactone COPD, no acute exacerbation inhalers PRN JEFFRY - CPAP at bedtime Morbid obesity Weight loss recommended JEFFRY CPAP at night Seronegative rheumatoid arthritis Outpatient Rheumatology follow-up DVT prophylaxis, early ambulation, compression devicie probable cause damage to the skin, per prior plan anticoagulation to be on hold until 04/14 Full Code at least 2 midnights admits for management of sepsis d/t cellulitis and needing iv antibiotics Quality Stroke Does the patient have a stroke diagnosis?: No VTE Prior VTE?: No VTE Risk Level:: Medical - moderate - high VTE Device Contraindication: Procedure Contraindicated VTE Drug Contraindication: Treatment Not Tolerated
--- NOTE | 2024-04-10 21:02 | PC.NURSE ---
called Pt Floridalma- updated on plan of care- pt now admitted to facility for further management of BLE cellulitis
[2024-04-10 21:32] VITALS: BP 148/53; PULSE 92; RESP 20; TEMP 37.4; O2SAT 97
--- NOTE | 2024-04-10 22:13 | MHC.EDTECH ---
Spoke to registration about the missing INPT RM. Registration stated that it is showing up on their end and that there is nothing missing. Patient is [id number]
--- NOTE | 2024-04-10 22:45 | PC.NURSE ---
med rec completed with FRANCISCO Stallings at [facility]
--- NOTE | 2024-04-10 22:54 | PC.NURSE ---
sonido rec completed- MD notifed via [employer]
[2024-04-11] VITALS (7 sets, daily range): BP systolic 113–142; BP diastolic 49–80; PULSE 87–103; RESP 18–22; TEMP 36.2–37.2; O2SAT 93–97
[2024-04-11] MEDS: vancomycin HCL 1,000 MG in 0.9 % Sodium Chloride 250 ML 270 MG IV ×2 (03:29→09:36)
[2024-04-11] MEDS: 0.9 % Sodium Chloride Flush 3 ML SYRINGE IVFLUSH ×3 (03:36→17:09)
[2024-04-11 05:48] LABS: Alanine Aminotransferase 24 U/L (0-40); Albumin Level 2.6 g/dL (3.5-5.0); Alkaline Phosphatase 67 U/L (39-117); Anion Gap 16 (12-20); Aspartate Amino Transferase 62 U/L (5-37); Bilirubin Total 0.9 mg/dL (0.0-1.0); Blood Urea Nitrogen 15 mg/dL (9-16); Calcium 8.5 mg/dL (8.4-10.2); Carbon Dioxide 29 mmol/L (22-29); Chloride 92 mmol/L (96-108); Creatinine Clr Calc Pharmacy 142.7; Estimated Glomerular Filt Rate > 60; Glucose Random 104 mg/dL (60-115); Potassium 3.8 mmol/L (3.3-5.1); Sodium 133 mmol/L (135-145); Total Protein 6.8 g/dL (6.5-8.0)
[2024-04-11 06:38] LABS: Basophils Percent Auto 0.2 % (0-2); Eosinophils Absolute Auto 0.2 X10*3/uL (0.0-0.4); Eosinophils Percent Auto 1.4 % (0-4); Hematocrit 31.9 % (42.0-52.0); Hemoglobin 10.5 g/dl (14.0-18.0); Imm Gran Abs Auto 0.22 X10*3/uL (0.00-0.03); Imm Gran Pct Auto 1.3 % (0.0-0.4); Lymphocytes Absolute Auto 1.5 X10*3/uL (1.2-4.9); Lymphocytes Percent Auto 9.1 % (20-40); MANUAL DIFF FLAG SCAN; Mean Corpuscular HGB Conc 32.9 g/dl (31.0-36.0); Mean Corpuscular Hemoglobin 31.6 pg (27.0-33.0); Mean Corpuscular Volume 96.1 fL (80.0-98.0); Mean Platelet Volume 9.5 fL (9.4-12.4); Monocytes Absolute Auto 1.5 X10*3/uL (0.1-1.2); Monocytes Percent Auto 9.3 % (2-11); Neutrophils Absolute Auto 13.1 x10*3/uL (2.0-8.3); Neutrophils Percent Auto 78.7 % (45-73); Platelet Count 545 X10*3/uL (160-400); Red Blood Count 3.32 X10*6/uL (4.60-5.80); Red Cell Distribution Width 14.1 % (11.0-16.0); SCAN SMEAR FLAG 1; White Blood Count 16.6 X10*3/uL (4.8-10.8)
[2024-04-11 06:57] LABS: SLIDE REVIEW VERIFIED
[2024-04-11 08:29] LABS: Lactate Dehydrogenase 297 U/L (118-273)
--- NOTE | 2024-04-11 08:40 | PHA.MEDREC ---
Addendum entered by Christen Collins RP 04/11/24 10:45: [facility] Re[facility] list does not include eliquis however per patients last admission on 04/05 patient was to stop eliquis and resume on 04/14/24 Addendum entered by Eb Cornejo 04/11/24 09:59: [facility]. Original Note: Pharmacy Consult ? Medication Reconciliation Pharmacy has reviewed the medication reconciliation done by RN. [facility] noticed ambien was incorrect, changed to match PDMP, otherwise other discrepancies against claims are OTC and could have been obtained OTC.
[2024-04-11] MEDS: Bumetanide 1 MG TABLET 2 MG PO (09:23)
[2024-04-11] MEDS: DULoxetine HCl 60 MG CAPSULE.DR PO (09:24)
[2024-04-11] MEDS: oxyBUTYnin chloride ER 5 MG TAB.ER.24 10 MG PO (09:24)
[2024-04-11] MEDS: Docusate Sodium 100 MG CAPSULE PO ×2 (09:24→20:54)
[2024-04-11] MEDS: Amiodarone HCL 200 MG TABLET PO (09:24)
[2024-04-11] MEDS: Ascorbic Acid 500 MG TABLET 1000 MG PO (09:24)
[2024-04-11] MEDS: rOPINIRole HCL 2 MG TABLET PO ×3 (09:24→21:40)
[2024-04-11] MEDS: Finasteride 5 MG TABLET PO (09:24)
[2024-04-11] MEDS: Spironolactone 25 MG TABLET PO (09:25)
[2024-04-11] MEDS: Pregabalin 150 MG CAPSULE PO ×3 (09:25→20:54)
[2024-04-11] MEDS: Methenamine Hippurate 1 GM TABLET PO (09:25)
[2024-04-11] MEDS: polyethylene glycoL 3350 17 GM POWD.PACK PO (09:33)
[2024-04-11] MEDS: Ammonium Lactate 12 % Lotion 226 GM BOTTLE 1 APPL TOPICAL (10:05)
[2024-04-11] MEDS: Hydrocortisone 1 % Cream 28.35 GM TUBE 1 APPL TOPICAL (10:05)
--- NOTE | 2024-04-11 14:09 | P.PNIM_ITS ---
Subjective Subjective Date of Service: 04/11/24 Interval History: seen and evaluated this morning feels little better no fever or chills no other overnight events Review of Systems Review of Systems: Yes all other systems are reviewed and are negative Physical Exam 2 Vital Signs: Vital Signs: Last Vital Signs Temp 98.9 F 04/11/24 03:28 Pulse 97 04/11/24 03:28 Resp 22 H 04/11/24 03:28 BP 140/80 H 04/11/24 03:28 Pulse Ox 96 04/11/24 03:28 O2 Del Method Nasal Cannula 04/11/24 03:28 O2 Flow Rate 3 04/11/24 03:28 Oxygen Flow Rate 3 04/10/24 16:02 BMI result Body Mass Index 52.9 Const: Other: Constitutional: Alert, in no distress, overweight. Mental Status: Oriented to person, place and time. Eyes: Pupils are equal, round and reactive to light. Ear, Nose and Throat: Oropharynx clear, mucous membranes moist. Ears and nose without deformities. Trachea midline. Respiratory: Clear to auscultation. No wheezing, rales or rhonchi. Cardiovascular: S1 S2 regular. No murmurs, rubs or gallops. Gastrointestinal: Abdomen soft, non-tender, non-distended. Normal bowel sounds.? Neurologic: Cranial nerves II-XII grossly intact. No focal neurological deficits. Moves all extremities spontaneously.? Skin: bilateral redness of both legs, warm, tense and dry skin with scales-- Musculoskeletal: No cyanosis or clubbing. Psychiatric: Normal mood and affect? Objective Data Active Medications Acetaminophen (Acetaminophen 325 Mg Tablet) 650 mg PO Q6H PRN PRN Reason: Pain, Mild 1-3,fever,headache Albuterol Sulfate (Albuterol Sulfate 90 Mcg 8 Gm Inhaler) 2 puff INHALE Q6H PRN PRN Reason: for wheezing Albuterol/Ipratropium (Albuterol/Iprat 2.5/0.5mg 3 Ml Ampul.Neb) 3 ml INHALE Q6H PRN PRN Reason: wheezing Amiodarone HCl (Amiodarone Hcl 200 Mg Tablet) 200 mg PO DAILY [facility] Last Admin: 04/11/24 09:24 Dose: 200 mg Documented By: ARNULFO Ascorbic Acid (Ascorbic Acid 500 Mg Tablet) 1,000 mg PO DAILY [facility] Last Admin: 04/11/24 09:24 Dose: 1,000 mg Documented By: ARNULFO Atorvastatin Calcium (Atorvastatin Calcium 80 Mg Tablet) 80 mg PO BEDTIME [facility] Bumetanide (Bumetanide 1 Mg Tablet) 2 mg PO DAILY [facility]; Protocol Last Admin: 04/11/24 09:23 Dose: 2 mg Documented By: ARNULFO Calcium Carbonate (Calcium Carbonate 750 Mg Tab.Chew) 750 mg PO Q4H PRN PRN Reason: Heartburn Docusate Sodium (Docusate Sodium 100 Mg Capsule) 100 mg PO BID [facility] Last Admin: 04/11/24 09:24 Dose: 100 mg Documented By: ARNULFO Doxazosin Mesylate (Doxazosin Mesylate 2 Mg Tablet) 8 mg PO BEDTIME [facility]; Protocol Duloxetine HCl (Duloxetine Hcl 60 Mg Capsule.Dr) 60 mg PO DAILY [facility] Last Admin: 04/11/24 09:24 Dose: 60 mg Documented By: ARNULFO Finasteride (Finasteride 5 Mg Tablet) 5 mg PO DAILY [facility] Last Admin: 04/11/24 09:24 Dose: 5 mg Documented By: ARNULFO Hydrocortisone (Hydrocortisone 1 % Cream 28.35 Gm Tube) 1 appl TOPICAL DAILY MICHELLE; Protocol Last Admin: 04/11/24 10:05 Dose: 1 appl Documented By: ARNULFO Vancomycin HCl 1,000 mg/ (Sodium Chloride) 270 mls @ 270 mls/hr IV Q8H [facility] Last Infusion: 04/11/24 11:15 Dose: Infused Documented By: ARNULFO Lactic Acid (Ammonium Lactate 12 % Lotion 226 Gm Bottle) 1 appl TOPICAL DAILY [facility]HEL[facility]; Protocol Last Admin: 04/11/24 10:05 Dose: 1 appl Documented By: ARNULFO Magnesium Hydroxide (Milk Of Magnesia 30 Ml Oral.Susp) 30 ml PO DAILY PRN PRN Reason: Constipation Melatonin (Melatonin 3 Mg Tablet) 6 mg PO BEDTIME PRN PRN Reason: Insomnia Methenamine Hippurate (Methenamine Hippurate 1 Gm Tablet) 1 gm PO DAILY [facility] Last Admin: 04/11/24 09:25 Dose: 1 gm Documented By: ARNULFO Morphine Sulfate (Morphine Sulfate 4 Mg/Ml Cartridge) 3 mg IVPUSH Q4H PRN; Protocol PRN Reason: Pain, Severe (Pain Scale 7-10) Ondansetron HCl (Ondansetron Hcl 4 Mg/2 Ml Vial) 4 mg IVPUSH Q8H PRN PRN Reason: Nausea and Vomiting Oxybutynin Chloride (Oxybutynin Chloride Er 5 Mg Tab.Er.24) 10 mg PO DAILY [facility] Last Admin: 04/11/24 09:24 Dose: 10 mg Documented By: ARNULFO Oxycodone HCl (Oxycodone Hcl Immed Release 5 Mg Tablet) 10 mg PO Q4H PRN PRN Reason: Pain, Moderate(Pain Scale 4-6) Pharmacy Consult (Consult Rx Vancomycin Dosing) 1 each MISCELLANE DAILY PRN PRN Reason: Consult order Polyethylene Glycol (Polyethylene Glycol 3350 17 Gm Powd.Pack) 17 gm PO DAILY PRN PRN Reason: Constipation Polyethylene Glycol (Polyethylene Glycol 3350 17 Gm Powd.Pack) 17 gm PO DAILY [facility] Last Admin: 04/11/24 09:33 Dose: 17 gm Documented By: ARNULFO Pregabalin (Pregabalin 150 Mg Capsule) 150 mg PO TID [facility] Last Admin: 04/11/24 09:25 Dose: 150 mg Documented By: ARNULFO Ropinirole HCl (Ropinirole Hcl 2 Mg Tablet) 2 mg PO TID [facility] Last Admin: 04/11/24 09:24 Dose: 2 mg Documented By: ARNULFO Sodium Chloride (0.9 % Sodium Chloride Flush 3 Ml Syringe) [facility] Admin: 04/11/24 09:37 Dose: 3 ml Documented By: ARNULFO Spironolactone (Spironolactone 25 Mg Tablet) 25 mg PO DAILY [facility]; Protocol Last Admin: 04/11/24 09:25 Dose: 25 mg Documented By: ARNULFO Zolpidem Tartrate (Zolpidem Tartrate 5 Mg Tablet) 10 mg PO BEDTIME PRN PRN Reason: sleep Labs 04/11/24 04:55 04/11/24 04:55 Labs: Laboratory Results - last 24 hr 04/10/24 04/11/24 16:42 04:55 MCV 93.8 96.1 MCH 32.0 31.6 MCHC 34.1 32.9 RDW 13.9 14.1 Plt Count 518 H 545 H MPV 9.5 9.5 Immature Gran % (Auto) 1.1 H 1.3 H Neut % (Auto) 82.9 H 78.7 H Lymph % (Auto) 6.4 L 9.1 L [place] % (Auto) 8.4 9.3 Eos % (Auto) 1.0 1.4 Baso % (Auto) 0.2 0.2 Lymph # (Auto) 1.3 1.5 [place] # (Auto) 1.7 H 1.5 H Eos # (Auto) 0.2 0.2 Baso # (Auto) 0.1 0.0 Abs Immat Gran (auto) 0.22 H 0.22 H Absolute Neuts (auto) 17.3 H 13.1 H Absolute Nucleated RBC 0.000 0.000 Nucleated RBC % (auto) 0.0 0.0 Smear Tech's Comments VERIFIED VERIFIED ESR 102 H Hold Purple Top SEE NOTE Anion Gap 18 16 Estim Creat Clear Calc 127.6 142.7 Estimated GFR > 60 > 60 Random Glucose 115 104 Lactic Acid 1.6 Calcium 8.4 8.5 Total Bilirubin 0.7 0.9 AST 80 H 62 H ALT 29 24 Alkaline Phosphatase 64 67 Lactate Dehydrogenase 297 H C-Reactive Protein 21.57 H B-Natriuretic Peptide 32 Total Protein 7.0 6.8 Albumin 2.5 L 2.6 L Assessment and Plan (1) Cellulitis of both lower extremities: Status: Acute (2) Sepsis: Status: Acute Plan 69-year-old male with a past medical history of paroxysmal atrial fibrillation, chronic diastolic congestive heart failure, chronic lymphedema, hypertension, chronic hypoxic respiratory failure due to COPD on 3L home oxygen, obstructive sleep apnea (JEFFRY) on CPAP, seronegative rheumatoid arthritis, hyperthyroidism (now euthyroid), hypertension, overactive bladder, and morbid obesity. He also has chronic lymphedema of the lower extremities and presents with bilateral cellulitis of both legs, meeting sepsis criteria. Sepsis d/t serina cellulitis of legs underlying lympadema US negative for dvt continu Vanco started 04/10, Ceftriaxone for gram negative topical steroid, Ammonium lactate FIDELINA Wrap follow cultures ID consult Anemia, chronic with high Protein\Albumin ration concerning for MM check serum electropheresis, immunofixation and kappa\lambda Paroxysmal AFib Continue amiodarone because of perinephric hematoma from last hospitalization, eliquis is to be restared on 04/14 HFpEF-euvolemic continue bumex. HTN aldactone COPD, no acute exacerbation inhalers PRN Morbid obesity Weight loss recommended JEFFRY CPAP at night Seronegative rheumatoid arthritis Outpatient Rheumatology follow-up DVT prophylaxis, early ambulation, compression devicie probable cause damage to the skin, per prior plan anticoagulation to be on hold until 04/14 Full Code at least 2 midnights admits for management of sepsis d/t cellulitis and needing iv antibiotics Quality Stroke Does the patient have a stroke diagnosis?: No VTE Prior VTE?: No VTE Risk Level:: Medical - moderate - high VTE Device Contraindication: Procedure Contraindicated VTE Drug Contraindication: Treatment Not Tolerated
--- NOTE | 2024-04-11 15:00 | PC.NURSE ---
Pts inhaler non-formulary, reports he took it this morning.
[2024-04-11 17:05] LABS: Vancomycin Random 18.1 mcg/mL (15-20)
[2024-04-11] MEDS: vancomycin HCL 1,250 MG in 0.9 % Sodium Chloride 250 ML 166.67 MG IV (18:14)
--- NOTE | 2024-04-11 19:19 | PC.NURSE ---
pt diner just brought, pt pain 8/10 to lower legs, redness is within the purple marker on his legs. needs at bedside waiting for a room at this time. vanco is infusing.
[2024-04-11] MEDS: Atorvastatin Calcium 80 MG TABLET PO (20:54)
[2024-04-11] MEDS: Doxazosin Mesylate 2 MG TABLET 8 MG PO (20:54)
--- NOTE | 2024-04-11 21:00 | PC.NURSE ---
report givne to alice rn and med ordered from pharmacy to be delivered to overflow ropinirole hcl 2 mg. po
[2024-04-11] MEDS: oxyCODONE HCl Immed Release 5 MG TABLET 10 MG PO (21:47)
[2024-04-11] MEDS: Zolpidem Tartrate 5 MG TABLET 10 MG PO (21:48)
--- NOTE | 2024-04-11 22:12 | PC.NURSE ---
Assumed care of this patient at 21:39 in overflow 6. Patient is alert and oriented x4, pleasant and cooperative. Patient c/o pain in lower legs 7/10 and lower back 5/10, medicated with Oxycodone 10 mg PRN. Patient assisted to set up his home CPAP machine. Patient offers no complaints at present, currently resting in hospital bed watching TV, call jenkins in reach.
[2024-04-12] VITALS (7 sets, daily range): BP systolic 113–144; BP diastolic 61–75; PULSE 85–101; RESP 16–22; TEMP 36.3–36.8; O2SAT 92–99; BMI 51.7
[2024-04-12] MEDS: 0.9 % Sodium Chloride Flush 3 ML SYRINGE IVFLUSH ×4 (00:12→22:01)
[2024-04-12] MEDS: oxyCODONE HCl Immed Release 5 MG TABLET 10 MG PO ×3 (04:39→22:00)
[2024-04-12] MEDS: vancomycin HCL 1,250 MG in 0.9 % Sodium Chloride 250 ML 166.67 MG IV ×2 (05:44→17:29)
[2024-04-12 06:37] LABS: MANUAL DIFF FLAG NO
[2024-04-12 06:47] LABS: Basophils Percent Auto 0.3 % (0-2); Eosinophils Absolute Auto 0.3 X10*3/uL (0.0-0.4); Eosinophils Percent Auto 2.1 % (0-4); Hematocrit 27.6 % (42.0-52.0); Hemoglobin 9.4 g/dl (14.0-18.0); Imm Gran Abs Auto 0.23 X10*3/uL (0.00-0.03); Imm Gran Pct Auto 1.8 % (0.0-0.4); Lymphocytes Absolute Auto 1.5 X10*3/uL (1.2-4.9); Lymphocytes Percent Auto 11.4 % (20-40); Mean Corpuscular HGB Conc 34.1 g/dl (31.0-36.0); Mean Corpuscular Hemoglobin 32.3 pg (27.0-33.0); Mean Corpuscular Volume 94.8 fL (80.0-98.0); Mean Platelet Volume 9.2 fL (9.4-12.4); Monocytes Absolute Auto 1.4 X10*3/uL (0.1-1.2); Monocytes Percent Auto 10.9 % (2-11); Neutrophils Absolute Auto 9.4 x10*3/uL (2.0-8.3); Neutrophils Percent Auto 73.5 % (45-73); Platelet Count 472 X10*3/uL (160-400); Red Blood Count 2.91 X10*6/uL (4.60-5.80); Red Cell Distribution Width 13.9 % (11.0-16.0); White Blood Count 12.8 X10*3/uL (4.8-10.8)
[2024-04-12 07:03] LABS: Anion Gap 12 (12-20); Blood Urea Nitrogen 14 mg/dL (9-16); Calcium 8.2 mg/dL (8.4-10.2); Carbon Dioxide 31 mmol/L (22-29); Chloride 95 mmol/L (96-108); Creatinine Clr Calc Pharmacy 161.9; Estimated Glomerular Filt Rate > 60; Glucose Random 106 mg/dL (60-115); Potassium 3.4 mmol/L (3.3-5.1); Sodium 135 mmol/L (135-145)
[2024-04-12 07:08] LABS: B Type Natriuretic Peptide 43 pg/mL (<100)
[2024-04-12] MEDS: Amiodarone HCL 200 MG TABLET PO (08:29)
[2024-04-12] MEDS: Finasteride 5 MG TABLET PO ×2 (08:29→08:36)
[2024-04-12] MEDS: Methenamine Hippurate 1 GM TABLET PO (08:29)
[2024-04-12] MEDS: polyethylene glycoL 3350 17 GM POWD.PACK PO (08:29)
[2024-04-12] MEDS: rOPINIRole HCL 2 MG TABLET PO ×3 (08:29→22:01)
[2024-04-12] MEDS: Pregabalin 150 MG CAPSULE PO ×3 (08:29→22:01)
[2024-04-12] MEDS: oxyBUTYnin chloride ER 5 MG TAB.ER.24 10 MG PO (08:29)
[2024-04-12] MEDS: Ascorbic Acid 500 MG TABLET 1000 MG PO (08:30)
[2024-04-12] MEDS: Docusate Sodium 100 MG CAPSULE PO ×2 (08:30→22:01)
[2024-04-12] MEDS: Spironolactone 25 MG TABLET PO (08:30)
[2024-04-12] MEDS: DULoxetine HCl 60 MG CAPSULE.DR PO (08:30)
[2024-04-12] MEDS: Bumetanide 1 MG TABLET 2 MG PO (08:30)
[2024-04-12] MEDS: Ammonium Lactate 12 % Lotion 226 GM BOTTLE 1 APPL TOPICAL (09:48)
[2024-04-12] MEDS: Hydrocortisone 1 % Cream 28.35 GM TUBE 1 APPL TOPICAL (09:51)
--- NOTE | 2024-04-12 10:31 | HO.PM.IMPN ---
Subjective Subjective Date of Service: 04/12/24 Interval History: seen and evaluated this morning feels little better, swelling and erythema improving no fever or chills no other overnight events Review of Systems Review of Systems: Yes all other systems are reviewed and are negative Physical Exam Vital Signs: Vital Signs: Last Vital Signs Temp 97.5 F 04/12/24 09:34 Pulse 95 04/12/24 09:34 Resp 18 04/12/24 09:34 BP 113/61 04/12/24 09:34 Pulse Ox 94 04/12/24 09:34 O2 Del Method Nasal Cannula 04/12/24 09:34 O2 Flow Rate 2 04/12/24 09:34 Oxygen Flow Rate 3 04/10/24 16:02 BMI result Body Mass Index 51.7 Const: Other: Constitutional: Alert, in no distress, overweight. Mental Status: Oriented to person, place and time. Eyes: Pupils are equal, round and reactive to light. Ear, Nose and Throat: Oropharynx clear, mucous membranes moist. Ears and nose without deformities. Trachea midline. Respiratory: Clear to auscultation. No wheezing, rales or rhonchi. Cardiovascular: S1 S2 regular. No murmurs, rubs or gallops. Gastrointestinal: Abdomen soft, non-tender, non-distended. Normal bowel sounds.? Neurologic: Cranial nerves II-XII grossly intact. No focal neurological deficits. Moves all extremities spontaneously.? Skin: bilateral redness of both legs, warm, tense and dry skin with scales Musculoskeletal: No cyanosis or clubbing. Psychiatric: Normal mood and affect? Objective Data Active Medications Acetaminophen (Acetaminophen 325 Mg Tablet) 650 mg PO Q6H PRN PRN Reason: Pain, Mild 1-3,fever,headache Albuterol Sulfate (Albuterol Sulfate 90 Mcg 8 Gm Inhaler) 2 puff INHALE Q6H PRN PRN Reason: for wheezing Albuterol/Ipratropium (Albuterol/Iprat 2.5/0.5mg 3 Ml Ampul.Neb) 3 ml INHALE Q6H PRN PRN Reason: wheezing Amiodarone HCl (Amiodarone Hcl 200 Mg Tablet) 200 mg PO DAILY COUNT INCLUDES THE [facility] Last Admin: 04/12/24 08:29 Dose: 200 mg Documented By: KOMAL Ascorbic Acid (Ascorbic Acid 500 Mg Tablet) 1,000 mg PO DAILY COUNT INCLUDES THE [facility] Last Admin: 04/12/24 08:30 Dose: 1,000 mg Documented By: KOMAL Atorvastatin Calcium (Atorvastatin Calcium 80 Mg Tablet) 80 mg PO BEDTIME MICHELLE Last Admin: 04/11/24 20:54 Dose: 80 mg Documented By: SANTA Bisacodyl (Bisacodyl 10 Mg Supp.Rect) 10 mg RI DAILY PRN PRN Reason: Constipation Bumetanide (Bumetanide 1 Mg Tablet) 2 mg PO DAILY MICHELLE; Protocol Last Admin: 04/12/24 08:30 Dose: 2 mg Documented By: KOMAL Calcium Carbonate (Calcium Carbonate 750 Mg Tab.Chew) 750 mg PO Q4H PRN PRN Reason: Heartburn Docusate Sodium (Docusate Sodium 100 Mg Capsule) 100 mg PO BID COUNT INCLUDES THE [facility] Last Admin: 04/12/24 08:30 Dose: 100 mg Documented By: KOMAL Doxazosin Mesylate (Doxazosin Mesylate 2 Mg Tablet) 8 mg PO BEDTIME MICHELLE; Protocol Last Admin: 04/11/24 20:54 Dose: 8 mg Documented By: SANTA Duloxetine HCl (Duloxetine Hcl 60 Mg Capsule.Dr) 60 mg PO DAILY COUNT INCLUDES THE [facility] Last Admin: 04/12/24 08:30 Dose: 60 mg Documented By: KOMAL Finasteride (Finasteride 5 Mg Tablet) 5 mg PO DAILY MICHELLE Last Admin: 04/12/24 08:36 Dose: 5 mg Documented By: KOMAL Hydrocortisone (Hydrocortisone 1 % Cream 28.35 Gm Tube) 1 appl TOPICAL DAILY MICHELLE; Protocol Last Admin: 04/12/24 09:51 Dose: 1 appl Documented By: CHEVY Vancomycin HCl 1,250 mg/ (Sodium Chloride) 250 mls @ 166.667 mls/hr IV Q12H COUNT INCLUDES THE [facility] Last Infusion: 04/12/24 07:31 Dose: Infused Documented By: CROSTAM Lactic Acid (Ammonium Lactate 12 % Lotion 226 Gm Bottle) 1 appl TOPICAL DAILY MICHELLE; Protocol Last Admin: 04/12/24 09:48 Dose: 1 appl Documented By: CHEVY Magnesium Hydroxide (Milk Of Magnesia 30 Ml Oral.Susp) 30 ml PO DAILY PRN PRN Reason: Constipation Magnesium Hydroxide (Milk Of Magnesia 30 Ml Oral.Susp) 30 ml PO DAILY PRN PRN Reason: Constipation Melatonin (Melatonin 3 Mg Tablet) 6 mg PO BEDTIME PRN PRN Reason: Insomnia Methenamine Hippurate (Methenamine Hippurate 1 Gm Tablet) 1 gm PO DAILY COUNT INCLUDES THE [facility] Last Admin: 04/12/24 08:29 Dose: 1 gm Documented By: KOMAL Morphine Sulfate (Morphine Sulfate 4 Mg/Ml Cartridge) 3 mg IVPUSH Q4H PRN; Protocol PRN Reason: Pain, Severe (Pain Scale 7-10) Ondansetron HCl (Ondansetron Hcl 4 Mg/2 Ml Vial) 4 mg IVPUSH Q8H PRN PRN Reason: Nausea and Vomiting Oxybutynin Chloride (Oxybutynin Chloride Er 5 Mg Tab.Er.24) 10 mg PO DAILY COUNT INCLUDES THE [facility] Last Admin: 04/12/24 08:29 Dose: 10 mg Documented By: KOMAL Oxycodone HCl (Oxycodone Hcl Immed Release 5 Mg Tablet) 10 mg PO Q4H PRN PRN Reason: Pain, Moderate(Pain Scale 4-6) Last Admin: 04/12/24 04:39 Dose: 10 mg Documented By: GRADY Pharmacy Consult (Consult Rx Vancomycin Dosing) 1 each MISCELLANE DAILY PRN PRN Reason: Consult order Polyethylene Glycol (Polyethylene Glycol 3350 17 Gm Powd.Pack) 17 gm PO DAILY PRN PRN Reason: Constipation Polyethylene Glycol (Polyethylene Glycol 3350 17 Gm Powd.Pack) 17 gm PO DAILY COUNT INCLUDES THE [facility] Last Admin: 04/12/24 08:29 Dose: 17 gm Documented By: KOMAL Pregabalin (Pregabalin 150 Mg Capsule) 150 mg PO TID COUNT INCLUDES THE [facility] Last Admin: 04/12/24 08:29 Dose: 150 mg Documented By: KOMAL Ropinirole HCl (Ropinirole Hcl 2 Mg Tablet) 2 mg PO TID COUNT INCLUDES THE [facility] Last Admin: 04/12/24 08:29 Dose: 2 mg Documented By: KOMAL Sodium Biphosphate/Sodium Phosphate (Sodium Phosphate,[place]-Dibasic 133 Ml Enema) 118 ml RI DAILY PRN PRN Reason: Constipation Sodium Chloride (0.9 % Sodium Chloride Flush 3 Ml Syringe) 3 ml IVFLUSH QSHIFT COUNT INCLUDES THE [facility] Last Admin: 04/12/24 09:51 Dose: 3 ml Documented By: CHEVY Spironolactone (Spironolactone 25 Mg Tablet) 25 mg PO DAILY MICHELLE; Protocol Last Admin: 04/12/24 08:30 Dose: 25 mg Documented By: KOMAL Zolpidem Tartrate (Zolpidem Tartrate 5 Mg Tablet) 10 mg PO BEDTIME PRN PRN Reason: Insomnia Last Admin: 04/11/24 21:48 Dose: 10 mg Documented By: GRADY Labs 04/12/24 06:31 04/12/24 06:31 Labs: Laboratory Results - last 24 hr 04/11/24 04/12/24 15:54 06:31 MCV 94.8 MCH 32.3 MCHC 34.1 RDW 13.9 Plt Count 472 H MPV 9.2 L Immature Gran % (Auto) 1.8 H Neut % (Auto) 73.5 H Lymph % (Auto) 11.4 L [place] % (Auto) 10.9 Eos % (Auto) 2.1 Baso % (Auto) 0.3 Lymph # (Auto) 1.5 [place] # (Auto) 1.4 H Eos # (Auto) 0.3 Baso # (Auto) 0.0 Abs Immat Gran (auto) 0.23 H Absolute Neuts (auto) 9.4 H Absolute Nucleated RBC 0.000 Nucleated RBC % (auto) 0.0 Anion Gap 12 Estim Creat Clear Calc 161.9 Estimated GFR > 60 Random Glucose 106 Calcium 8.2 L B-Natriuretic Peptide 43 Random Vancomycin 18.1 Microbiology Microbiology Results: Microbiology 04/10/24 16:42 Blood Culture - Preliminary Blood - Venous No growth after 24 hours. 04/10/24 16:42 Blood Culture - Preliminary Blood - Venous No growth after 24 hours. Assessment and Plan (1) Sepsis: Status: Acute (2) Cellulitis of both lower extremities: Status: Acute (3) Chronic diastolic heart failure: Status: Acute Plan 69-year-old male with a past medical history of paroxysmal atrial fibrillation, chronic diastolic congestive heart failure, chronic lymphedema, hypertension, chronic hypoxic respiratory failure due to COPD on 3L home oxygen, obstructive sleep apnea (JEFFRY) on CPAP, seronegative rheumatoid arthritis, hyperthyroidism (now euthyroid), hypertension, overactive bladder, and morbid obesity. He also has chronic lymphedema of the lower extremities and presents with bilateral cellulitis of both legs, meeting sepsis criteria. Sepsis d/t serina cellulitis of legs underlying lympadema US negative for dvt continu Vanco started 04/10, Ceftriaxone for gram negative topical steroid, Ammonium lactate FIDELINA Wrap Clotrimazole cream for feet follow cultures ID consult Anemia, chronic with high Protein\Albumin ration concerning for MM check serum electropheresis, immunofixation and kappa\lambda Paroxysmal AFib Continue amiodarone because of perinephric hematoma from last hospitalization, eliquis is to be restared on 04/14 HFpEF-euvolemic continue bumex. HTN aldactone COPD, no acute exacerbation inhalers PRN Morbid obesity Weight loss recommended JEFFRY CPAP at night Seronegative rheumatoid arthritis Outpatient Rheumatology follow-up DVT prophylaxis, early ambulation, compression devicie probable cause damage to the skin, per prior plan anticoagulation to be on hold until 04/14 Full Code will need overnight hospital stay for management of sepsis d/t cellulitis and needing iv antibiotics Quality Stroke Does the patient have a stroke diagnosis?: No VTE Prior VTE?: No VTE Risk Level:: Medical - moderate - high VTE Device Contraindication: Procedure Contraindicated VTE Drug Contraindication: Treatment Not Tolerated
[2024-04-12 11:19] LABS: MRSA Nasal PCR POSITIVE (Negative); SA Nasal PCR POSITIVE (Negative)
--- NOTE | 2024-04-12 13:06 | MHC.CM.PN ---
pt is admitted from [facility] where he will return if recocommended by pt cm will follow dc plan expected to return to [facility]
--- NOTE | 2024-04-12 15:01 | MHC.CLN ---
NUTRITION CONSULT FOR SKIN INTEGRITY. DIET=REGULAR. ADDING ENSURE MAX BID TO PROMOTE WOUND HEALING. SUPPEMENT PROVIDES 300 KCALS, 60 G PROTEIN. SKIN WITH STAGE II PRESSURE INJURY TO LEFT BUTTOCK. FOLLOW FOR PO INTAKE AND SKIN INTEGRITY. SEE CLINICAL NUTRITION ASSESSMENT 04/12/24.
[2024-04-12 16:19] LABS: Vancomycin Random 16.3 mcg/mL (15-20)
[2024-04-12 19:42] LABS: Prot Elec - Albumin 1.9 g/dL (3.8-4.8); Prot Elec - Alpha1 0.7 g/dL (0.2-0.3); Prot Elec - Beta 1 0.3 g/dL (0.4-0.6); Prot Elec - Beta 2 0.4 g/dL (0.2-0.5); Prot Elec - Gamma 1.2 g/dL (0.8-1.7); Prot Elec - Total Protein 5.7 g/dL (6.1-8.1)
[2024-04-12] MEDS: Doxazosin Mesylate 2 MG TABLET 8 MG PO (22:01)
[2024-04-12] MEDS: Atorvastatin Calcium 80 MG TABLET PO (22:01)
[2024-04-12] MEDS: Zolpidem Tartrate 5 MG TABLET 10 MG PO (22:01)
[2024-04-13] VITALS (7 sets, daily range): BP systolic 112–132; BP diastolic 55–62; PULSE 93–96; RESP 16–18; TEMP 36.6–37.2; O2SAT 90–97
[2024-04-13] MEDS: Clotrimazole 1 % Cream 15 GM TUBE 1 APPL TOPICAL ×3 (00:44→19:37)
[2024-04-13] MEDS: ondansetron HCL 4 MG/2 ML VIAL IVPUSH (00:45)
[2024-04-13] MEDS: vancomycin HCL 1,250 MG in 0.9 % Sodium Chloride 250 ML 166.67 MG IV ×2 (06:14→17:45)
[2024-04-13 07:19] LABS: Blood Urea Nitrogen 17 mg/dL (9-16); Calcium 8.5 mg/dL (8.4-10.2); Creatinine Clr Calc Pharmacy 143.9; Estimated Glomerular Filt Rate > 60; Glucose Random 94 mg/dL (60-115)
[2024-04-13 07:26] LABS: Anion Gap 15 (12-20); Carbon Dioxide 29 mmol/L (22-29); Chloride 94 mmol/L (96-108); Potassium 4.2 mmol/L (3.3-5.1); Sodium 134 mmol/L (135-145)
[2024-04-13] MEDS: Amiodarone HCL 200 MG TABLET PO (08:06)
[2024-04-13] MEDS: Spironolactone 25 MG TABLET PO (08:06)
[2024-04-13] MEDS: Ascorbic Acid 500 MG TABLET 1000 MG PO (08:06)
[2024-04-13] MEDS: Bumetanide 1 MG TABLET 2 MG PO (08:06)
[2024-04-13] MEDS: oxyBUTYnin chloride ER 5 MG TAB.ER.24 10 MG PO (08:06)
[2024-04-13] MEDS: DULoxetine HCl 60 MG CAPSULE.DR PO (08:07)
[2024-04-13] MEDS: Methenamine Hippurate 1 GM TABLET PO (08:07)
[2024-04-13] MEDS: polyethylene glycoL 3350 17 GM POWD.PACK PO (08:07)
[2024-04-13] MEDS: Finasteride 5 MG TABLET PO (08:07)
[2024-04-13] MEDS: Docusate Sodium 100 MG CAPSULE PO ×2 (08:07→19:30)
[2024-04-13] MEDS: rOPINIRole HCL 2 MG TABLET PO ×3 (08:07→19:31)
[2024-04-13] MEDS: Pregabalin 150 MG CAPSULE PO ×3 (08:07→19:31)
[2024-04-13] MEDS: Ammonium Lactate 12 % Lotion 226 GM BOTTLE 1 APPL TOPICAL (08:08)
[2024-04-13] MEDS: Hydrocortisone 1 % Cream 28.35 GM TUBE 1 APPL TOPICAL (08:18)
[2024-04-13] MEDS: 0.9 % Sodium Chloride Flush 3 ML SYRINGE IVFLUSH ×2 (08:19→15:03)
--- NOTE | 2024-04-13 11:05 | HO.PM.IMPN ---
Subjective Subjective Date of Service: 04/13/24 Interval History: seen and evaluated this morning feels better, swelling and erythema improving no fever or chills no other overnight events Review of Systems Review of Systems: Yes all other systems are reviewed and are negative Physical Exam Vital Signs: Vital Signs: Last Vital Signs Temp 98 F 04/13/24 06:58 Pulse 94 04/13/24 06:58 Resp 16 04/13/24 06:58 BP 115/57 L 04/13/24 06:58 Pulse Ox 97 04/13/24 06:58 O2 Del Method Nasal Cannula 04/13/24 06:58 O2 Flow Rate 3 04/13/24 06:58 Oxygen Flow Rate 3 04/10/24 16:02 BMI result Body Mass Index 51.7 Const: Other: Constitutional: Alert, in no distress, overweight. Respiratory: Clear to auscultation. No wheezing, rales or rhonchi. Cardiovascular: S1 S2 regular. No murmurs, rubs or gallops. chronic lymphedema in LE Gastrointestinal: Abdomen soft, non-tender, non-distended. Normal bowel sounds.? Neurologic: Cranial nerves II-XII grossly intact. No focal neurological deficits. Moves all extremities spontaneously.? Skin: improving bilateral redness of both legs and dry skin with scales, less tenderness and warmth Musculoskeletal: No cyanosis or clubbing. Psychiatric: Normal mood and affect? Objective Data Active Medications Acetaminophen (Acetaminophen 325 Mg Tablet) 650 mg PO Q6H PRN PRN Reason: Pain, Mild 1-3,fever,headache Albuterol Sulfate (Albuterol Sulfate 90 Mcg 8 Gm Inhaler) 2 puff INHALE Q6H PRN PRN Reason: for wheezing Albuterol/Ipratropium (Albuterol/Iprat 2.5/0.5mg 3 Ml Ampul.Neb) 3 ml INHALE Q6H PRN PRN Reason: wheezing Amiodarone HCl (Amiodarone Hcl 200 Mg Tablet) 200 mg PO DAILY [facility] Last Admin: 04/13/24 08:06 Dose: 200 mg Documented By: CHEVY Ascorbic Acid (Ascorbic Acid 500 Mg Tablet) 1,000 mg PO DAILY [facility] Last Admin: 04/13/24 08:06 Dose: 1,000 mg Documented By: CHEVY Atorvastatin Calcium (Atorvastatin Calcium 80 Mg Tablet) 80 mg PO BEDTIME [facility] Last Admin: 04/12/24 22:01 Dose: 80 mg Documented By: MOISE Bisacodyl (Bisacodyl 10 Mg Supp.Rect) 10 mg CO DAILY PRN PRN Reason: Constipation Bumetanide (Bumetanide 1 Mg Tablet) 2 mg PO DAILY MICHELLE; Protocol Last Admin: 04/13/24 08:06 Dose: 2 mg Documented By: CHEVY Calcium Carbonate (Calcium Carbonate 750 Mg Tab.Chew) 750 mg PO Q4H PRN PRN Reason: Heartburn Clotrimazole (Clotrimazole 1 % Cream 15 Gm Tube) 1 appl TOPICAL BID MICHELLE; Protocol Last Admin: 04/13/24 08:07 Dose: 1 appl Documented By: CHEVY Docusate Sodium (Docusate Sodium 100 Mg Capsule) 100 mg PO BID MICHELLE Last Admin: 04/13/24 08:07 Dose: 100 mg Documented By: CHEVY Doxazosin Mesylate (Doxazosin Mesylate 2 Mg Tablet) 8 mg PO BEDTIME MICHELLE; Protocol Last Admin: 04/12/24 22:01 Dose: 8 mg Documented By: MOISE Duloxetine HCl (Duloxetine Hcl 60 Mg Capsule.Dr) 60 mg PO DAILY MICHELLE Last Admin: 04/13/24 08:07 Dose: 60 mg Documented By: CHEVY Finasteride (Finasteride 5 Mg Tablet) 5 mg PO DAILY MICHELLE Last Admin: 04/13/24 08:07 Dose: 5 mg Documented By: CHEVY Hydrocortisone (Hydrocortisone 1 % Cream 28.35 Gm Tube) 1 appl TOPICAL DAILY MICHELLE; Protocol Last Admin: 04/13/24 08:18 Dose: 1 appl Documented By: CHEVY Vancomycin HCl 1,250 mg/ (Sodium Chloride) 250 mls @ 166.667 mls/hr IV Q12H MICHELLE Last Infusion: 04/13/24 08:20 Dose: Infused Documented By: CHEVY Lactic Acid (Ammonium Lactate 12 % Lotion 226 Gm Bottle) 1 appl TOPICAL DAILY MICHELLE; Protocol Last Admin: 04/13/24 08:08 Dose: 1 appl Documented By: CHEVY Magnesium Hydroxide (Milk Of Magnesia 30 Ml Oral.Susp) 30 ml PO DAILY PRN PRN Reason: Constipation Magnesium Hydroxide (Milk Of Magnesia 30 Ml Oral.Susp) 30 ml PO DAILY PRN PRN Reason: Constipation Melatonin (Melatonin 3 Mg Tablet) 6 mg PO BEDTIME PRN PRN Reason: Insomnia Methenamine Hippurate (Methenamine Hippurate 1 Gm Tablet) 1 gm PO DAILY [facility] Last Admin: 04/13/24 08:07 Dose: 1 gm Documented By: CHEVY Morphine Sulfate (Morphine Sulfate 4 Mg/Ml Cartridge) 3 mg IVPUSH Q4H PRN; Protocol PRN Reason: Pain, Severe (Pain Scale 7-10) Ondansetron HCl (Ondansetron Hcl 4 Mg/2 Ml Vial) 4 mg IVPUSH Q8H PRN PRN Reason: Nausea and Vomiting Last Admin: 04/13/24 00:45 Dose: 4 mg Documented By: MOISE Oxybutynin Chloride (Oxybutynin Chloride Er 5 Mg Tab.Er.24) 10 mg PO DAILY [facility] Last Admin: 04/13/24 08:06 Dose: 10 mg Documented By: CHEVY Oxycodone HCl (Oxycodone Hcl Immed Release 5 Mg Tablet) 10 mg PO Q4H PRN PRN Reason: Pain, Moderate(Pain Scale 4-6) Last Admin: 04/12/24 22:00 Dose: 10 mg Documented By: MOISE Pharmacy Consult (Consult Rx Vancomycin Dosing) 1 each MISCELLANE DAILY PRN PRN Reason: Consult order Polyethylene Glycol (Polyethylene Glycol 3350 17 Gm Powd.Pack) 17 gm PO DAILY PRN PRN Reason: Constipation Polyethylene Glycol (Polyethylene Glycol 3350 17 Gm Powd.Pack) 17 gm PO DAILY [facility] Last Admin: 04/13/24 08:07 Dose: 17 gm Documented By: CHEVY Pregabalin (Pregabalin 150 Mg Capsule) 150 mg PO TID [facility] Last Admin: 04/13/24 08:07 Dose: 150 mg Documented By: CHEVY Ropinirole HCl (Ropinirole Hcl 2 Mg Tablet) 2 mg PO TID [facility] Last Admin: 04/13/24 08:07 Dose: 2 mg Documented By: CHEVY Sodium Biphosphate/Sodium Phosphate (Sodium Phosphate,[place]-Dibasic 133 Ml Enema) 118 ml CO DAILY PRN PRN Reason: Constipation Sodium Chloride (0.9 % Sodium Chloride Flush 3 Ml Syringe) 3 ml IVFLUSH QSHIFT [facility] Last Admin: 04/13/24 08:19 Dose: 3 ml Documented By: CHEVY Spironolactone (Spironolactone 25 Mg Tablet) 25 mg PO DAILY [facility]; Protocol Last Admin: 04/13/24 08:06 Dose: 25 mg Documented By: CHEVY Zolpidem Tartrate (Zolpidem Tartrate 5 Mg Tablet) 10 mg PO BEDTIME PRN PRN Reason: Insomnia Last Admin: 04/12/24 22:01 Dose: 10 mg Documented By: MOISE Labs 04/12/24 06:31 04/13/24 06:18 Labs: Laboratory Results - last 24 hr 04/11/24 04/12/24 04/12/24 08:20 05:37 15:47 Anion Gap Estim Creat Clear Calc Estimated GFR Random Glucose Calcium Total Protein (PEP) 5.7 L Albumin (PEP) 1.9 L Clrxe-7-Zmrxsembv 0.7 H Qwgos-6-Uhzfhzbnc 1.0 H Ymyb-4-Vgkcvczg 0.3 L Jnos-8-Atrqwxyh 0.4 Gamma Globulins 1.2 PEP Interpretation SEE NOTE Nasal Screen MRSA (PCR) POSITIVE A Nasal S. aureus Screen POSITIVE A Nasal MRSA/S.aureus Interp SEE NOTE Random Vancomycin 16.3 04/13/24 06:18 Anion Gap 15 Estim Creat Clear Calc 143.9 Estimated GFR > 60 Random Glucose 94 Calcium 8.5 Total Protein (PEP) Albumin (PEP) Ahitq-1-Pbffbqukt Qilmh-7-Dhfosjbcl Jcmv-9-Xnfghuwi Cdwg-3-Vzdohqwm Gamma Globulins PEP Interpretation Nasal Screen MRSA (PCR) Nasal S. aureus Screen Nasal MRSA/S.aureus Interp Random Vancomycin Microbiology Microbiology Results: Microbiology 04/10/24 16:42 Blood Culture - Preliminary Blood - Venous No growth after 48 hours. 04/10/24 16:42 Blood Culture - Preliminary Blood - Venous No growth after 48 hours. Assessment and Plan (1) Sepsis: Status: Acute (2) Cellulitis of both lower extremities: Status: Acute (3) Hyponatremia: Status: Acute (4) Leg edema: Status: Acute Plan 69-year-old male with a past medical history of paroxysmal atrial fibrillation, chronic diastolic congestive heart failure, chronic lymphedema, hypertension, chronic hypoxic respiratory failure due to COPD on 3L home oxygen, obstructive sleep apnea (JEFFRY) on CPAP, seronegative rheumatoid arthritis, hyperthyroidism (now euthyroid), hypertension, overactive bladder, and morbid obesity. He also has chronic lymphedema of the lower extremities and presents with bilateral cellulitis of both legs, meeting sepsis criteria. Sepsis d/t serina cellulitis of legs underlying lympadema US negative for dvt improving continu Vanco started 04/10, Ceftriaxone for gram negative topical steroid, Ammonium lactate FIDELINA Wrap Clotrimazole cream for feet follow cultures ID consult, consider 1 month of Doxycycline upon discharge this time Anemia, acute on chronic with high Protein\Albumin ration concerning for MM or other dyschiaries check serum electropheresis, immunofixation and kappa\lambda Hematology consult Paroxysmal AFib Continue amiodarone because of perinephric hematoma from last hospitalization, eliquis is to be restared on 04/14 HFpEF-euvolemic continue bumex. HTN aldactone COPD, no acute exacerbation inhalers PRN Morbid obesity Weight loss recommended JEFFRY CPAP at night Seronegative rheumatoid arthritis Outpatient Rheumatology follow-up DVT prophylaxis, early ambulation, compression devicie probable cause damage to the skin, per prior plan anticoagulation to be on hold until 04/14 Full Code will need overnight hospital stay for management of sepsis d/t cellulitis and needing iv antibiotics Quality Stroke Does the patient have a stroke diagnosis?: No VTE Prior VTE?: No VTE Risk Level:: Medical - moderate - high VTE Device Contraindication: Procedure Contraindicated VTE Drug Contraindication: Treatment Not Tolerated
[2024-04-13 11:59] LABS: IgA 381 mg/dL (70-320); IgG 1361 mg/dL (600-1540); IgM 48 mg/dL (50-300)
--- NOTE | 2024-04-13 12:04 | MHC.CM.PN ---
PT rec home w/ services. Discussed w/ patient who would like to resume services w/ [facility]. Plan for dc tomorrow, will arrange for private transport ~11am.
--- NOTE | 2024-04-13 13:30 | P.CNHO_ITS ---
Subjective - Subjective Chief complaint: Cellulitis Patient: new to practice Consult date: 04/13/24 Requesting Physician: Dr. Chandler Primary Care Provider: YUMIKO Mathis Swimming Pool Installer Utilized?: No - Kosovan Speaking HPI - Consult Narrative Reason for consult: Anemia/thrombocytosis Narrative: Dinh Craven Jr is a 69 year old male with past medical history significant for chronic lymphedema, COPD, diastolic heart failure, paroxysmal atrial fibrillation, sleep apnea, seronegative rheumatoid arthritis and morbid obesity who has been admitted for recurrent cellulitis of both legs. He was hospitalized a few weeks back for sepsis due to pneumonia and was discharged on p.o. Augmentin and doxycycline. He does not have DVT in his legs based on his ultrasound. He has chronic elevation of WBC count, normocytic anemia and intermittent thrombocytosis. Patient is aware of leukocytosis. His father had some kind of liver problem. Review of Systems - Constitutional Reports as per [facility] Medical History: Medical History (Last Reviewed 04/12/24 @ 09:31 by Elva Christine RN) Acute on chronic diastolic CHF (congestive heart failure) Acute respiratory failure due to COVID-19 Bladder outlet obstruction Chronic cystitis Community acquired pneumonia Congestive heart failure COPD (chronic obstructive pulmonary disease) COPD (chronic obstructive pulmonary disease) COVID COVID-19 MATUTE (dyspnea on exertion) Fatigue Hereditary lymphedema History of cardioversion History of diverticulitis History of umbilical hernia Injury of right rotator cuff Lymphedema Melanoma Morbid obesity Morbid obesity JEFFRY on CPAP Osteoarthritis of right knee Paroxysmal atrial fibrillation Respiratory failure with hypoxia Restless leg syndrome Restrictive lung disease Sensory neuropathy Sepsis Testicular swelling Traumatic complete tear of right rotator cuff Venous insufficiency Viral sepsis Family History: Family History (Last Reviewed 03/26/24 @ 22:44 by Tuyet Morales MD) Father Arthritis Diabetes Mother Arthritis Kidney stones Family/Other Arthritis Sister No problems noted. Sister No problems noted. Son No problems noted. Surgical History: Surgical History (Last Reviewed 04/12/24 @ 09:31 by Elva Christine RN) History of appendectomy History of arthroscopy of left knee Hx of colonoscopy Social History: Social History (Last Reviewed 03/26/24 @ 22:44 by Tuyet Morales MD) Living Situation History: Household Members: Spouse Household Members Other:: Housing: Condominium Do you presently have visiting nurse or other home services: Yes Alcohol History: Unable to assess alcohol history related to: Unknown Tobacco History: Patient Tobacco Use Status: Former Tobacco user Tobacco use type: Cigarette Cigarette Packs Per Day: 1 Years Smoked: 30 years e-Cigarette/Vaping Use: Never Used Second Hand Smoke Exposure: No Substance Use History: Substance Use Type: Marijuana Advance Directives: Advance Directives Date on File: 02/24/24 Occupation Assessmet: service: No Current occupational status: retired 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 Home Medications and Allergies Current Medications: Current Medications Acetaminophen (Acetaminophen 325 Mg Tablet) 650 mg PO Q6H PRN PRN Reason: Pain, Mild 1-3,fever,headache Albuterol Sulfate (Albuterol Sulfate 90 Mcg 8 Gm Inhaler) 2 puff INHALE Q6H PRN PRN Reason: for wheezing Albuterol/Ipratropium (Albuterol/Iprat 2.5/0.5mg 3 Ml Ampul.Neb) 3 ml INHALE Q6H PRN PRN Reason: wheezing Amiodarone HCl (Amiodarone Hcl 200 Mg Tablet) 200 mg PO DAILY [facility] Last Admin: 04/13/24 08:06 Dose: 200 mg Ascorbic Acid (Ascorbic Acid 500 Mg Tablet) 1,000 mg PO DAILY [facility] Last Admin: 04/13/24 08:06 Dose: 1,000 mg Atorvastatin Calcium (Atorvastatin Calcium 80 Mg Tablet) 80 mg PO BEDTIME [facility] Last Admin: 04/12/24 22:01 Dose: 80 mg Bisacodyl (Bisacodyl 10 Mg Supp.Rect) 10 mg CO DAILY PRN PRN Reason: Constipation Bumetanide (Bumetanide 1 Mg Tablet) 2 mg PO DAILY [facility]; Protocol Last Admin: 04/13/24 08:06 Dose: 2 mg Calcium Carbonate (Calcium Carbonate 750 Mg Tab.Chew) 750 mg PO Q4H PRN PRN Reason: Heartburn Clotrimazole (Clotrimazole 1 % Cream 15 Gm Tube) 1 appl TOPICAL BID [facility]; Protocol Last Admin: 04/13/24 08:07 Dose: 1 appl Docusate Sodium (Docusate Sodium 100 Mg Capsule) 100 mg PO BID [facility] Last Admin: 04/13/24 08:07 Dose: 100 mg Doxazosin Mesylate (Doxazosin Mesylate 2 Mg Tablet) 8 mg PO BEDTIME [facility]; Protocol Last Admin: 04/12/24 22:01 Dose: 8 mg Duloxetine HCl (Duloxetine Hcl 60 Mg Capsule.Dr) 60 mg PO DAILY [facility] Last Admin: 04/13/24 08:07 Dose: 60 mg Finasteride (Finasteride 5 Mg Tablet) 5 mg PO DAILY [facility] Last Admin: 04/13/24 08:07 Dose: 5 mg Hydrocortisone (Hydrocortisone 1 % Cream 28.35 Gm Tube) 1 appl TOPICAL DAILY [facility]; Protocol Last Admin: 04/13/24 08:18 Dose: 1 appl Vancomycin HCl 1,250 mg/ (Sodium Chloride) 250 mls @ 166.667 mls/hr IV Q12H [facility] Last Infusion: 04/13/24 08:20 Dose: Infused Lactic Acid (Ammonium Lactate 12 % Lotion 226 Gm Bottle) 1 appl TOPICAL DAILY [facility]; Protocol Last Admin: 04/13/24 08:08 Dose: 1 appl Magnesium Hydroxide (Milk Of Magnesia 30 Ml Oral.Susp) 30 ml PO DAILY PRN PRN Reason: Constipation Magnesium Hydroxide (Milk Of Magnesia 30 Ml Oral.Susp) 30 ml PO DAILY PRN PRN Reason: Constipation Melatonin (Melatonin 3 Mg Tablet) 6 mg PO BEDTIME PRN PRN Reason: Insomnia Methenamine Hippurate (Methenamine Hippurate 1 Gm Tablet) 1 gm PO DAILY [facility] Last Admin: 04/13/24 08:07 Dose: 1 gm Morphine Sulfate (Morphine Sulfate 4 Mg/Ml Cartridge) 3 mg IVPUSH Q4H PRN; Protocol PRN Reason: Pain, Severe (Pain Scale 7-10) Ondansetron HCl (Ondansetron Hcl 4 Mg/2 Ml Vial) 4 mg IVPUSH Q8H PRN PRN Reason: Nausea and Vomiting Last Admin: 04/13/24 00:45 Dose: 4 mg Oxybutynin Chloride (Oxybutynin Chloride Er 5 Mg Tab.Er.24) 10 mg PO DAILY [facility] Last Admin: 04/13/24 08:06 Dose: 10 mg Oxycodone HCl (Oxycodone Hcl Immed Release 5 Mg Tablet) 10 mg PO Q4H PRN PRN Reason: Pain, Moderate(Pain Scale 4-6) Last Admin: 04/12/24 22:00 Dose: 10 mg Pharmacy Consult (Consult Rx Vancomycin Dosing) 1 each MISCELLANE DAILY PRN PRN Reason: Consult order Polyethylene Glycol (Polyethylene Glycol 3350 17 Gm Powd.Pack) 17 gm PO DAILY PRN PRN Reason: Constipation Polyethylene Glycol (Polyethylene Glycol 3350 17 Gm Powd.Pack) 17 gm PO DAILY [facility] Last Admin: 04/13/24 08:07 Dose: 17 gm Pregabalin (Pregabalin 150 Mg Capsule) 150 mg PO TID [facility] Last Admin: 04/13/24 08:07 Dose: 150 mg Ropinirole HCl (Ropinirole Hcl 2 Mg Tablet) 2 mg PO TID [facility] Last Admin: 04/13/24 08:07 Dose: 2 mg Sodium Biphosphate/Sodium Phosphate (Sodium Phosphate,[place]-Dibasic 133 Ml Enema) 118 ml CO DAILY PRN PRN Reason: Constipation Sodium Chloride (0.9 % Sodium Chloride Flush 3 Ml Syringe) 3 ml IVFLUSH QSHIFT [facility] Last Admin: 04/13/24 08:19 Dose: 3 ml Spironolactone (Spironolactone 25 Mg Tablet) 25 mg PO DAILY [facility]; Protocol Last Admin: 04/13/24 08:06 Dose: 25 mg Zolpidem Tartrate (Zolpidem Tartrate 5 Mg Tablet) 10 mg PO BEDTIME PRN PRN Reason: Insomnia Last Admin: 04/12/24 22:01 Dose: 10 mg Home Medications ?Medication ?Instructions ?Recorded ?Confirmed ?Type albuterol sulfate 90 mcg/actuation 2 puff PO Q6H PRN for wheezing 10/13/22 04/10/24 History aerosol inhaler ammonium lactate 12 % lotion 1 appl topical BEDTIME 11/20/23 04/11/24 History oxybutynin chloride 10 mg 10 mg PO DAILY@199902/19/24 04/11/24 History tablet,extended release 24 hr spironolactone 25 mg tablet 25 mg PO DAILY 03/14/24 04/11/24 History acetaminophen 325 mg tablet 975 mg PO Q4H PRN pain 04/11/24 04/11/24 History acidophilus 100 million 1 cap PO DAILY 04/11/24 04/11/24 History cell-pectin, citrus 10 mg capsule bisacodyl 10 mg rectal suppository 10 mg CO DAILY PRN Constipation 04/11/24 04/11/24 History magnesium hydroxide 400 mg/5 mL 30 ml PO DAILY PRN Constipation 04/11/24 04/11/24 History oral suspension (Milk of Magnesia) ondansetron HCl 4 mg tablet 4 mg PO Q8H PRN Nausea And Vomiting 04/11/24 04/11/24 History sodium phosphates 19 gram-7 118 ml CO DAILY PRN Constipation 04/11/24 04/11/24 History gram/118 mL enema (Fleet Enema) zolpidem 10 mg tablet 10 mg PO BEDTIME PRN Insomnia 04/11/24 04/11/24 History Allergies Allergy/AdvReac Type Severity Reaction Status Date / Time No Known Allergies Allergy Verified 04/10/24 16:04 [No Known Allergies*] Physical Exam Vital signs: Vital Signs Temp 98 F 04/13/24 06:58 Pulse 94 04/13/24 06:58 Resp 16 04/13/24 06:58 BP 115/57 L 04/13/24 06:58 Pulse Ox 97 04/13/24 06:58 O2 Del Method Nasal Cannula 04/13/24 06:58 O2 Flow Rate 3 04/13/24 06:58 Intake & Output 04/12/24 04/13/24 04/13/24 18:59 06:59 18:59 Intake Total 970 / 2420 1450 / 2420 250 / 250 Output Total 600 / 1550 950 / 1550 Balance 370 / 870 500 / 870 250 / 250 Urine Output (Average ml/kg/hr) 0.26 0.41 0.41 Intake: Intake, Oral Amount 720 / 1920 1200 / 1920 Intake, IV Amount 250 / 500 250 / 500 250 / 250 vancomycin HCL 1,250 mg In 0.9 250 / 500 250 / 500 250 / 250 % Sodium Chloride 250 ml @ 166. 667 mls/hr IV Q12H [facility] Rx#: [id number] Output: Output, Urine Amount 600 / 1550 950 / 1550 Other: Meal Refused No NPO No Breakfast % Eaten 0% Lunch % Eaten 50% Dinner % Eaten 100% Eating (Feeding) Ability Independent Independent Urine Urinal Urinal Urine Color Yellow Yellow Last Bowel Movement 04/13/24 Weight 192.8 kg Weight in Grams [id number] Weight 192.8 kg - Constitutional Present: morbidly obese - Routine HEENT Exam Head: Present: normal inspection Eye: Present: EOMI, PERRL - Routine Neck Exam Absent: lymphadenopathy - Routine Respiratory Exam Absent: accessory muscle use - Routine Cardiovascular Exam Cardiovascular: Present: S1, S2 - Routine Skin Exam Present: intact Comments: Erythema of both legs/since all the way up to his knees. Hem/Onc Consult Result - Labs CBC & Chem 7: 04/12/24 06:31 04/13/24 06:18 Labs: BMP 04/13/24 06:18 Sodium 134 L Potassium 4.2 D Chloride 94 L Carbon Dioxide 29 BUN 17 H Creatinine 0.91 Calcium 8.5 Assessment and Plan Patient Active problem list reviewed?: Yes (1) Anemia Status: Acute Assessment and plan: 1. This is a 69-year-old male with multiple medical problems as stated above, who is admitted for recurrent lower extremity cellulitis. He has mild normocytic anemia with chronic leukocytosis and intermittent thrombocytosis. All of the above appear to be reactive. He probably has anemia of chronic disease and reactive thrombocytosis as well as leukemoid reaction. His leukocytosis is improving. There are no abnormal cells on peripheral smear. I do not suspect any underlying hematological problem. Rule out any hematinic deficiencies. Blood work and be repeated upon discharge after his infection clears. I thank you for the consult. - Time Spent With Patient Time Spent with Patient (in minutes): 15
[2024-04-13 14:22] LABS: Iron 24 mcg/dL (45-160); Percent Iron Saturation 19 % (15-50); Total Iron Binding Capacity 127 mcg/dL (228-428); Unsaturated Iron Binding 103 ug/dL
[2024-04-13 16:37] LABS: Vancomycin Random 16.9 mcg/mL (15-20)
[2024-04-13] MEDS: Atorvastatin Calcium 80 MG TABLET PO (19:30)
[2024-04-13] MEDS: Doxazosin Mesylate 2 MG TABLET 8 MG PO (19:31)
[2024-04-13] MEDS: Zolpidem Tartrate 5 MG TABLET 10 MG PO (21:19)
[2024-04-13] MEDS: oxyCODONE HCl Immed Release 5 MG TABLET 10 MG PO (21:19)
--- NOTE | 2024-04-13 23:47 | W.PM.IDCN ---
History of Present Illness Data of Consult Service Date: 04/12/24 Requesting physician: Florina Chandler Primary Care Provider: Diego Augustine [employer] CASHIER- HPI Reason for consult: recurrent cellulitis lower extremities He presents with redness and pain lower extremities. He has no fever or chills. He has been on Vancomycin. He reports prior cellulitis last year. He denies tinea pedis. Review of Systems Review of Systems: Yes all other systems are reviewed and are negative [facility] Past Medical History Medical History Sepsis COPD (chronic obstructive pulmonary disease) Acute respiratory failure due to COVID-19 Community acquired pneumonia Viral sepsis Fatigue Acute on chronic diastolic CHF (congestive heart failure) COVID Morbid obesity Paroxysmal atrial fibrillation Congestive heart failure Testicular swelling Osteoarthritis of right knee Melanoma History of cardioversion Hereditary lymphedema Venous insufficiency Morbid obesity Lymphedema COPD (chronic obstructive pulmonary disease) Sensory neuropathy COVID-19 Respiratory failure with hypoxia Restrictive lung disease JEFFRY on CPAP MATUTE (dyspnea on exertion) Chronic cystitis Bladder outlet obstruction Restless leg syndrome Traumatic complete tear of right rotator cuff Injury of right rotator cuff History of diverticulitis History of umbilical hernia Family History Family History Father Arthritis Diabetes Mother Arthritis Kidney stones Family/Other Arthritis Sister No problems noted. Sister No problems noted. Son No problems noted. Family history: reviewed and not pertinent Surgical History Surgical History Hx of colonoscopy History of appendectomy History of arthroscopy of left knee Social History Social History Household Members: Spouse Household Members Other:: Housing: Condominium Do you presently have visiting nurse or other home services: Yes Unable to assess alcohol history related to: Unknown Alcohol intake: current Alcohol intake frequency: holidays/special occasions only Alcohol type: beer Comment: Refused bed alarm due to alarm sensitivity when changing positions. 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 Cognitive needs: No Hearing needs: No Vision needs: No Meds Allergies Allergy/AdvReac Type Severity Reaction Status Date / Time No Known Allergies Allergy Verified 04/10/24 16:04 [No Known Allergies*] Active Medications: Current Medications Acetaminophen (Acetaminophen 325 Mg Tablet) 650 mg PO Q6H PRN PRN Reason: Pain, Mild 1-3,fever,headache Albuterol Sulfate (Albuterol Sulfate 90 Mcg 8 Gm Inhaler) 2 puff INHALE Q6H PRN PRN Reason: for wheezing Albuterol/Ipratropium (Albuterol/Iprat 2.5/0.5mg 3 Ml Ampul.Neb) 3 ml INHALE Q6H PRN PRN Reason: wheezing Amiodarone HCl (Amiodarone Hcl 200 Mg Tablet) 200 mg PO DAILY [facility] Last Admin: 04/13/24 08:06 Dose: 200 mg Ascorbic Acid (Ascorbic Acid 500 Mg Tablet) 1,000 mg PO DAILY [facility] Last Admin: 04/13/24 08:06 Dose: 1,000 mg Atorvastatin Calcium (Atorvastatin Calcium 80 Mg Tablet) 80 mg PO BEDTIME [facility] Last Admin: 04/13/24 19:30 Dose: 80 mg Bisacodyl (Bisacodyl 10 Mg Supp.Rect) 10 mg CO DAILY PRN PRN Reason: Constipation Bumetanide (Bumetanide 1 Mg Tablet) 2 mg PO DAILY [facility]; Protocol Last Admin: 04/13/24 08:06 Dose: 2 mg Calcium Carbonate (Calcium Carbonate 750 Mg Tab.Chew) 750 mg PO Q4H PRN PRN Reason: Heartburn Clotrimazole (Clotrimazole 1 % Cream 15 Gm Tube) 1 appl TOPICAL BID [facility]; Protocol Last Admin: 04/13/24 19:37 Dose: 1 appl Docusate Sodium (Docusate Sodium 100 Mg Capsule) 100 mg PO BID [facility] Last Admin: 04/13/24 19:30 Dose: 100 mg Doxazosin Mesylate (Doxazosin Mesylate 2 Mg Tablet) 8 mg PO BEDTIME [facility]; Protocol Last Admin: 04/13/24 19:31 Dose: 8 mg Duloxetine HCl (Duloxetine Hcl 60 Mg Capsule.Dr) 60 mg PO DAILY [facility] Last Admin: 04/13/24 08:07 Dose: 60 mg Finasteride (Finasteride 5 Mg Tablet) 5 mg PO DAILY [facility] Last Admin: 04/13/24 08:07 Dose: 5 mg Hydrocortisone (Hydrocortisone 1 % Cream 28.35 Gm Tube) 1 appl TOPICAL DAILY [facility]; Protocol Last Admin: 04/13/24 08:18 Dose: 1 appl Vancomycin HCl 1,250 mg/ (Sodium Chloride) 250 mls @ 166.667 mls/hr IV Q12H [facility] Last Infusion: 04/13/24 19:27 Dose: Infused Lactic Acid (Ammonium Lactate 12 % Lotion 226 Gm Bottle) 1 appl TOPICAL DAILY [facility]; Protocol Last Admin: 04/13/24 08:08 Dose: 1 appl Magnesium Hydroxide (Milk Of Magnesia 30 Ml Oral.Susp) 30 ml PO DAILY PRN PRN Reason: Constipation Magnesium Hydroxide (Milk Of Magnesia 30 Ml Oral.Susp) 30 ml PO DAILY PRN PRN Reason: Constipation Melatonin (Melatonin 3 Mg Tablet) 6 mg PO BEDTIME PRN PRN Reason: Insomnia Methenamine Hippurate (Methenamine Hippurate 1 Gm Tablet) 1 gm PO DAILY [facility] Last Admin: 04/13/24 08:07 Dose: 1 gm Morphine Sulfate (Morphine Sulfate 4 Mg/Ml Cartridge) 3 mg IVPUSH Q4H [facility]; Protocol PRN Reason: Pain, Severe (Pain Scale 7-10) Ondansetron HCl (Ondansetron Hcl 4 Mg/2 Ml Vial) 4 mg IVPUSH Q8H PRN PRN Reason: Nausea and Vomiting Last Admin: 04/13/24 00:45 Dose: 4 mg Oxybutynin Chloride (Oxybutynin Chloride Er 5 Mg Tab.Er.24) 10 mg PO DAILY [facility] Last Admin: 04/13/24 08:06 Dose: 10 mg Oxycodone HCl (Oxycodone Hcl Immed Release 5 Mg Tablet) 10 mg PO Q4H PRN PRN Reason: Pain, Moderate(Pain Scale 4-6) Last Admin: 04/13/24 21:19 Dose: 10 mg Pharmacy Consult (Consult Rx Vancomycin Dosing) 1 each MISCELLANE DAILY PRN PRN Reason: Consult order Polyethylene Glycol (Polyethylene Glycol 3350 17 Gm Powd.Pack) 17 gm PO DAILY PRN PRN Reason: Constipation Polyethylene Glycol (Polyethylene Glycol 3350 17 Gm Powd.Pack) 17 gm PO DAILY [facility] Last Admin: 04/13/24 08:07 Dose: 17 gm Pregabalin (Pregabalin 150 Mg Capsule) 150 mg PO TID [facility] Last Admin: 04/13/24 19:31 Dose: 150 mg Ropinirole HCl (Ropinirole Hcl 2 Mg Tablet) 2 mg PO TID [facility] Last Admin: 04/13/24 19:31 Dose: 2 mg Sodium Biphosphate/Sodium Phosphate (Sodium Phosphate,[place]-Dibasic 133 Ml Enema) 118 ml CO DAILY PRN PRN Reason: Constipation Sodium Chloride (0.9 % Sodium Chloride Flush 3 Ml Syringe) 3 ml IVFLUSH QSHIFT [facility] Last Admin: 04/13/24 15:03 Dose: 3 ml Spironolactone (Spironolactone 25 Mg Tablet) 25 mg PO DAILY [facility]; Protocol Last Admin: 04/13/24 08:06 Dose: 25 mg Zolpidem Tartrate (Zolpidem Tartrate 5 Mg Tablet) 10 mg PO BEDTIME PRN PRN Reason: Insomnia Last Admin: 04/13/24 21:19 Dose: 10 mg Home Medications ?Medication ?Instructions ?Recorded ?Confirmed ?Last Taken ?Type albuterol sulfate 90 mcg/actuation 2 puff PO Q6H PRN for wheezing 10/13/22 04/10/24 Unknown History aerosol inhaler ammonium lactate 12 % lotion 1 appl topical BEDTIME 11/20/23 04/11/24 03/24/24 History oxybutynin chloride 10 mg 10 mg PO DAILY@199902/19/24 04/11/24 04/09/24 20:00 History tablet,extended release 24 hr spironolactone 25 mg tablet 25 mg PO DAILY 03/14/24 04/11/24 04/10/24 08:00 History acetaminophen 325 mg tablet 975 mg PO Q4H PRN pain 04/11/24 04/11/24 Unknown History acidophilus 100 million 1 cap PO DAILY 04/11/24 04/11/24 Unknown History cell-pectin, citrus 10 mg capsule bisacodyl 10 mg rectal suppository 10 mg CO DAILY PRN Constipation 04/11/24 04/11/24 Unknown History magnesium hydroxide 400 mg/5 mL 30 ml PO DAILY PRN Constipation 04/11/24 04/11/24 Unknown History oral suspension (Milk of Magnesia) ondansetron HCl 4 mg tablet 4 mg PO Q8H PRN Nausea And Vomiting 04/11/24 04/11/24 Unknown History sodium phosphates 19 gram-7 118 ml CO DAILY PRN Constipation 04/11/24 04/11/24 Unknown History gram/118 mL enema (Fleet Enema) zolpidem 10 mg tablet 10 mg PO BEDTIME PRN Insomnia 04/11/24 04/11/24 Unknown History Physical Exam Vital Signs: Vital Signs: Last Vital Signs Temp 97.9 F 04/13/24 19:40 Pulse 96 04/13/24 19:40 Resp 18 04/13/24 19:40 BP 132/58 L 04/13/24 19:40 Pulse Ox 90 L 04/13/24 19:40 O2 Del Method Room Air 04/13/24 19:40 O2 Flow Rate 2 04/13/24 15:32 Oxygen Flow Rate 3 04/10/24 16:02 BMI result Body Mass Index 51.7 Const: General: cooperative HEENT: Head: Yes normal to inspection Face and sinus: Yes normal facial exam Mouth: Normal oral and palatal mucosa present Teeth and gingiva: dentition normal Eyes: General: appearance normal, both eyes and all related structures Pupils: Equal, round and reactive pupils present Resp: Effort & Inspection: normal respiratory effort Cardio: Rate: regular rate Rhythm: regular rhythm GI: Palpation (GI): Soft to palpation and nontender : General: Yes no CVA tenderness Back/Spine/Pelvis: Back: no CVA tenderness Skin: General skin exam: no rashes or lesions noted Neuro: General: moves all extremities Cranial nerves: Yes Equal, round and reactive pupils present Extrem: Other: right more than left erythema legs Psych: Appearance: grossly normal Results Labs 04/12/24 06:31 04/13/24 06:18 Labs: BMP 04/13/24 06:18 Sodium 134 L Potassium 4.2 D Chloride 94 L Carbon Dioxide 29 BUN 17 H Creatinine 0.91 Calcium 8.5 Microbiology Microbiology Results: Microbiology 04/10/24 16:42 Blood - Venous Blood Culture - Preliminary No growth after 48 hours. 04/10/24 16:42 Blood - Venous Blood Culture - Preliminary No growth after 48 hours. Assessment and Plan (1) Sepsis: Status: Acute (2) Cellulitis of both lower extremities: Status: Acute Plan Would switch Vancomycin to Doxycycline and give Doxycycline possibly up to one to two months possible protection cellulitis.
[2024-04-14 03:09] VITALS: BP 144/70; PULSE 96; RESP 20; TEMP 36.1; O2SAT 94
[2024-04-14] MEDS: vancomycin HCL 1,250 MG in 0.9 % Sodium Chloride 250 ML 166.67 MG IV (05:45)
[2024-04-14 05:55] LABS: MANUAL DIFF FLAG NO
[2024-04-14 06:07] LABS: Basophils Absolute Auto 0.1 X10*3/uL (0.0-0.2); Basophils Percent Auto 0.3 % (0-2); Eosinophils Absolute Auto 0.2 X10*3/uL (0.0-0.4); Eosinophils Percent Auto 1.6 % (0-4); Imm Gran Abs Auto 0.38 X10*3/uL (0.00-0.03); Imm Gran Pct Auto 2.6 % (0.0-0.4); Lymphocytes Absolute Auto 1.6 X10*3/uL (1.2-4.9); Lymphocytes Percent Auto 10.9 % (20-40); Mean Corpuscular HGB Conc 34.5 g/dl (31.0-36.0); Mean Corpuscular Hemoglobin 32.6 pg (27.0-33.0); Mean Corpuscular Volume 94.5 fL (80.0-98.0); Mean Platelet Volume 9.2 fL (9.4-12.4); Monocytes Absolute Auto 1.5 X10*3/uL (0.1-1.2); Neutrophils Absolute Auto 10.9 x10*3/uL (2.0-8.3); Neutrophils Percent Auto 74.6 % (45-73); Platelet Count 496 X10*3/uL (160-400); Red Blood Count 3.07 X10*6/uL (4.60-5.80); Red Cell Distribution Width 14.2 % (11.0-16.0); White Blood Count 14.7 X10*3/uL (4.8-10.8)
[2024-04-14 06:13] LABS: Anion Gap 14 (12-20); Blood Urea Nitrogen 16 mg/dL (9-16); Calcium 8.4 mg/dL (8.4-10.2); Carbon Dioxide 30 mmol/L (22-29); Chloride 95 mmol/L (96-108); Creatinine Clr Calc Pharmacy 142.3; Estimated Glomerular Filt Rate > 60; Glucose Random 103 mg/dL (60-115); Potassium 3.9 mmol/L (3.3-5.1); Sodium 135 mmol/L (135-145)
--- NOTE | 2024-04-14 06:42 | PC.NURSE ---
Pt seen on bed alert and oriented, claimed back and hip pain ,prn Oxycodone 10 mg po given as requested, Sunshineien prn for sleep also requested, pt had his CPAP on at bedtime til 0300, pt refused bed alarm, pt understand need for supervision was moving around room and packing getting ready to go home.
[2024-04-14 06:54] VITALS: BP 132/74; PULSE 98; RESP 17; TEMP 36.1; O2SAT 94
[2024-04-14] MEDS: oxyCODONE HCl Immed Release 5 MG TABLET 10 MG PO (07:29)
[2024-04-14] MEDS: Spironolactone 25 MG TABLET PO (08:21)
[2024-04-14] MEDS: Amiodarone HCL 200 MG TABLET PO (08:21)
[2024-04-14] MEDS: Methenamine Hippurate 1 GM TABLET PO (08:21)
[2024-04-14] MEDS: rOPINIRole HCL 2 MG TABLET PO (08:21)
[2024-04-14] MEDS: Ascorbic Acid 500 MG TABLET 1000 MG PO (08:21)
[2024-04-14] MEDS: oxyBUTYnin chloride ER 5 MG TAB.ER.24 10 MG PO (08:21)
[2024-04-14] MEDS: Docusate Sodium 100 MG CAPSULE PO (08:21)
[2024-04-14] MEDS: Finasteride 5 MG TABLET PO (08:21)
[2024-04-14] MEDS: DULoxetine HCl 60 MG CAPSULE.DR PO (08:22)
[2024-04-14] MEDS: Bumetanide 1 MG TABLET 2 MG PO (08:22)
[2024-04-14] MEDS: polyethylene glycoL 3350 17 GM POWD.PACK PO (08:22)
[2024-04-14] MEDS: Pregabalin 150 MG CAPSULE PO (08:22)
[2024-04-14] MEDS: Sodium Ferric Gluconat/Sucrose 125 MG in 0.9 % Sodium Chloride 100 ML 100 MG IV (08:36)
--- NOTE | 2024-04-14 10:31 | MHC.CM.PN ---
Patient medically cleared for dc home w/ resumption of [facility] services for PT/SN. at bedside to transport. Last IMM 04/12.
--- NOTE | 2024-04-14 10:53 | PM.DS ---
DS: Providers Provider Date of Service: 04/14/24 Date of admission: 04/10/24 20:40 Date of discharge: 04/14/24 Primary care physician: YUMIKO Mathis Consults: 04/11/24 10:47 Consult to Infectious Diseases Routine Consulting Provider: [facility] Reason for consultation: Recurrent cellulitis, supperssive therapy ? 04/12/24 10:42 Consult to Wound Care Routine Reason for consultation: wound to buttocks, and cellulitis BLE 04/13/24 11:15 Consult to Hematology / Oncology Routine Consulting Provider: [facility] Oncology/Hematology Reason for consultation: Worsneing anemia, elevated ESR, abnormal PRotein\Albumin ratio DS: Diagnosis Discharge Diagnosis (1) Sepsis: Status: Acute (2) Cellulitis of both lower extremities: Status: Acute (3) Anemia: Status: Acute (4) Hyponatremia: Status: Acute (5) Leg edema: Status: Acute DS: Summary Hospital Course Hospital Course: Admission note HPI 69-year-old male with a past medical history of paroxysmal atrial fibrillation, chronic diastolic congestive heart failure, chronic lymphedema, hypertension, chronic hypoxic respiratory failure due to COPD on 3L home oxygen, obstructive sleep apnea (JEFFRY) on CPAP, seronegative rheumatoid arthritis, hyperthyroidism (now euthyroid), hypertension, overactive bladder, and morbid obesity. Recent hospitalization from March 24 to March 29 for sepsis due to pneumonia, discharged with Augmentin and doxycycline. During that hospitalization, a 13.3 x 7.3 x 12.1 cm perinephric hematoma was discovered, and Eliquis is on hold until April 14. He presents today from a half-way facility (SNF) due to redness and pain in both legs, with no fever. Concern for worsening cellulitis. White blood cell count (WBC) is 20,000. He received IV vancomycin and cefazolin in the emergency department. Ultrasound of the legs was negative for deep vein thrombosis (DVT). Hospital course The patient was treated for Sepsis due to bilateral cellulitis of legs underlying lymphedema. US negative for dvt. Treated with IV Vancomycin started 04/10, Ceftriaxone for gram negative along with topical steroid, Ammonium lactate and FIDELINA Wrap. Clotrimazole cream for feet. Blood cultures remained negative. ID consult, consider 1-2 month of Doxycycline upon discharge this time. Will send him with 1 month of Doxycycline with plan to follow with PCP as outpatient and consider another month of Doxycycline if needed. He was also noted to have Anemia, acute on chronic with high Protein\Albumin ration that was evaluated with serum electropheresis, immunofixation and kappa\lambda and Hematology consulted who did not suspect underlyin hemotalogical disorder. He was noted to have low Iron stores. Started on iron supplement and Omeprazole on discharge. The drop could be contributed to his recent Perinephric hematomoa. IF repeat CBC shows lower levels of H&H he then might need follow with Gastroenterology for elective EGD\Colonoscopy. To repeat CBC as outpatient. For Hx of Paroxysmal AFib he was Continue amiodarone. because of perinephric hematoma from last hospitalization, eliquis is to be restared on 04/14 which is the day of discharge. For HFpEF-euvolemic. continue bumex. Discharge plan Continue Doxycycline for 30 days Keep legs elevated, apply Creams and place FIDELINA-wrap Avoid dry skin or scratching Take Iron supplement daily repeat blood test as outpatient Start Omeprazole for stomach protection To follow with Dr Quiroz as outpatient as needed Time Attestation Discharge Coordination Time (in mins): 42 Quality: Safe Use of Opioids Does Pt have an Active Cancer Diagnosis on the Problem List?: No Quality: Stroke Does the patient have a stroke diagnosis?: No Physical Exam Vital Signs: Vital Signs: Last Vital Signs Temp 96.9 F 04/14/24 06:54 Pulse 98 04/14/24 06:54 Resp 17 04/14/24 06:54 BP 132/74 04/14/24 06:54 Pulse Ox 94 04/14/24 06:54 O2 Del Method Nasal Cannula 04/14/24 06:54 O2 Flow Rate 3 04/14/24 06:54 Oxygen Flow Rate 3 04/10/24 16:02 BMI result Body Mass Index 51.7 Const: Other: Constitutional: Alert, in no distress, overweight. Respiratory: Clear to auscultation. No wheezing, rales or rhonchi. Cardiovascular: S1 S2 regular. No murmurs, rubs or gallops. chronic lymphedema in LE Gastrointestinal: Abdomen soft, non-tender, non-distended. Normal bowel sounds.? Neurologic: Cranial nerves II-XII grossly intact. No focal neurological deficits. Moves all extremities spontaneously.? Skin: improving bilateral redness of both legs and dry skin with scales, less tenderness and warmth Musculoskeletal: No cyanosis or clubbing. Psychiatric: Normal mood and affect? DS: Data Data Completed and Pending Completed studies during hospitalization [Text1]: Procedures Assistance with Respiratory Ventilation, Less than 24 Consecutive Hours, Continuous Positive Airway Pressure (03/24/24) Introduction of Anesthetic Agent into Joints, Percutaneous Approach (10/14/22) Introduction of Anti-inflammatory into Joints, Percutaneous Approach (10/14/22) Introduction of Remdesivir Anti-infective into Peripheral Vein, Percutaneous Approach, [employer] (05/16/20) Labs on day of discharge: Laboratory Results - last 24 hr 04/11/24 04/13/24 04/13/24 08:20 06:18 16:08 WBC RBC Hgb Hct MCV MCH MCHC RDW Plt Count MPV Immature Gran % (Auto) Neut % (Auto) Lymph % (Auto) Ventura % (Auto) Eos % (Auto) Baso % (Auto) Lymph # (Auto) [place]ura # (Auto) Eos # (Auto) Baso # (Auto) Abs Immat Gran (auto) Absolute Neuts (auto) Absolute Nucleated RBC Nucleated RBC % (auto) Sodium Potassium Chloride Carbon Dioxide Anion Gap BUN Creatinine Estim Creat Clear Calc Estimated GFR Random Glucose Calcium Iron 24 L TIBC 127 L % Saturation 19 Unsat Iron Binding 103 Random Vancomycin 16.9 IgG Total 1361 IgA Total 381 H IgM 48 L CHAPIN Interpretation SEE NOTE 04/14/24 05:39 WBC 14.7 H RBC 3.07 L Hgb 10.0 L Hct 29.0 L MCV 94.5 MCH 32.6 MCHC 34.5 RDW 14.2 Plt Count 496 H MPV 9.2 L Immature Gran % (Auto) 2.6 H Neut % (Auto) 74.6 H Lymph % (Auto) 10.9 L Ventura % (Auto) 10.0 Eos % (Auto) 1.6 Baso % (Auto) 0.3 Lymph # (Auto) 1.6 Ventura # (Auto) 1.5 H Eos # (Auto) 0.2 Baso # (Auto) 0.1 Abs Immat Gran (auto) 0.38 H Absolute Neuts (auto) 10.9 H Absolute Nucleated RBC 0.000 Nucleated RBC % (auto) 0.0 Sodium 135 Potassium 3.9 Chloride 95 L Carbon Dioxide 30 H Anion Gap 14 BUN 16 Creatinine 0.92 Estim Creat Clear Calc 142.3 Estimated GFR > 60 Random Glucose 103 Calcium 8.4 Iron TIBC % Saturation Unsat Iron Binding Random Vancomycin IgG Total IgA Total IgM CHAPIN Interpretation Preliminary micro results at discharge 04/10/24 16:42 Blood Culture - Preliminary Blood - Venous No growth after 48 hours. 04/10/24 16:42 Blood Culture - Preliminary Blood - Venous No growth after 48 hours. Imaging Venous US: Radiologist's impression: IMPRESSION: 1. No evidence of deep venous thrombosis. 2. Evaluation limited by body habitus. This document has been electronically signed by: Marlon Discharge Plan Discharge Anticipated Discharge Date/Time: 04/14/24 10:41 Patient Disposition: Home Health Service Discharge Diagnosis: Cellulitis Anemia Referrals: Teresa TORREZ [Outside] - 1 Week (resume services) Diego Augustine FNP- [Primary Care Provider] - 1 Week Discharge Medications: New ferrous sulfate 324 mg (65 mg iron) tablet,delayed release (DR/EC) 324 mg PO DAILY Qty: 90 0RF doxycycline monohydrate 100 mg capsule 100 mg PO BID Qty: 60 0RF hydrocortisone 1 % Cream 1 appl topical DAILY Qty: 453.6 0RF Protocol: Apply to: Apply to: legs omeprazole 20 mg capsule,delayed release(DR/EC) 20 mg PO DAILY Qty: 90 0RF clotrimazole 1 % Cream 1 appl topical BID Qty: 30 0RF Protocol: Apply to: Apply to: between toes and on feet Rx Instructions: between toes, feet Continued (DME) walker Misc See Rx Instructions .Route Qty: 1 0RF Rx Instructions: daily use (rolling sitting walker-bariatric size needed) finasteride 5 mg tablet 5 mg PO DAILY 90 Days Qty: 90 1RF amiodarone 200 mg tablet 200 mg PO DAILY 90 Days Qty: 90 2RF Anoro Ellipta 62.5-25 mcg/actuation blister with device 1 inh PO DAILY Qty: 60 3RF pregabalin 150 mg capsule 150 mg PO TID 90 Days Qty: 270 2RF (DME) Powered bariatric recliner See Rx Instructions .Route .MEDSUPPLY Qty: 1 0RF Rx Instructions: As directed atorvastatin 80 mg tablet 80 mg PO BEDTIME 90 Days Qty: 90 1RF docusate sodium [Colace] 100 mg capsule 100 mg PO BID Qty: 180 1RF Eliquis 5 mg tablet 5 mg PO BID Qty: 60 5RF ropinirole 2 mg tablet 2 mg PO TID 90 Days Qty: 270 0RF bumetanide 1 mg tablet 2 mg PO DAILY Qty: 180 1RF doxazosin 8 mg tablet 8 mg PO BEDTIME 90 Days Qty: 90 1RF duloxetine 60 mg capsule,delayed release(DR/EC) 60 mg PO DAILY Qty: 90 0RF polyethylene glycol 3350 17 gram Powder In Packet 17 g PO DAILY Qty: 30 0RF oxycodone 5 mg Tablet 10 mg PO Q4H PRN (Reason: Pain, Moderate(Pain Scale 4-6)) Qty: 20 0RF Rx Instructions: Partial Fill upon patient request. albuterol sulfate 90 mcg/actuation HFA aerosol inhaler 2 puff PO Q6H PRN (Reason: for wheezing) oxybutynin chloride 10 mg tablet extended release 24hr 10 mg PO DAILY@2000 spironolactone 25 mg tablet 25 mg PO DAILY ondansetron HCl 4 mg Tablet 4 mg PO Q8H PRN (Reason: Nausea And Vomiting) acidophilus-pectin, citrus 100 million cell-10 mg Capsule 1 cap PO DAILY magnesium hydroxide [Milk of Magnesia] 400 mg/5 mL Suspension 30 ml PO DAILY PRN (Reason: Constipation) bisacodyl 10 mg Suppository 10 mg MN DAILY PRN (Reason: Constipation) Fleet Enema 19-7 gram/118 mL Enema 118 ml MN DAILY PRN (Reason: Constipation) zolpidem 10 mg Tablet 10 mg PO BEDTIME PRN (Reason: Insomnia) acetaminophen 325 mg tablet 975 mg PO Q4H PRN (Reason: pain) ipratropium-albuterol 0.5 mg-3 mg(2.5 mg base)/3 mL solution for nebulization 3 ml inhalation Q6H PRN (Reason: wheezing) 30 Days Qty: 360 3RF ammonium lactate 12 % lotion 1 appl topical BEDTIME ascorbic acid (vitamin C) 1,000 mg tablet 1 g PO DAILY 90 Days Qty: 90 1RF methenamine hippurate 1 gram tablet 1 g PO DAILY 90 Days Qty: 90 1RF Discharge Orders: Discharge Order (Routine); Ordered 04/14/24 Ordered By: Florina Chandler Diet: Low salt diet Activity on Discharge: As tolerated Stand Alone Forms: Patient Portal Discharge page Print Language: Peruvian Other Ambulatory Orders: Complete Blood Count Auto Diff (Routine) Timeframe: 1 Week Facility: [facility] - Location: Laboratory Ordered By: Florina Chandler Care Plan Goals: Continue Doxycycline for 30 days Keep legs elevated, apply Creams and place FIDELINA-wrap Avoid dry skin or scratching Take Iron supplement daily repeat blood test as outpatient Start Omeprazole for stomach protection To follow with Dr Quiroz as outpatient as needed Health Concerns: Cellulitis Anemia Plan of Treatment: Antibiotics Iron supplement Hematology follow up Assessment: as above Patient Instructions: Cellulitis (ED)
[2024-04-16 17:38] LABS: Kappa, Serum 341 mg/dL (176-443); Kappa/Lambda Ratio, Serum 2.42 (1.29-2.55); Lambda, Serum 141 mg/dL (91-240)
== END 2024-04-14 11:23 | disposition home health service (06) | DRG 872 ==
LOC: HO.ED 20:51 → HO.EDOVER 21:42 → HO.S3 04-12 08:27
PROVIDERS: Nurse Practitioner Family; Admitting Provider Internal Medicine; Emergency Provider Emergency Medicine; PCP Nurse Practitioner Family; Visit Provider Student in an Organized Health Care Education/Training Program
DX: A41.9 Sepsis, unspecified organism (principal); L03.116 Cellulitis of left lower limb; I50.32 Chronic diastolic (congestive) heart failure; L03.115 Cellulitis of right lower limb; E87.1 Hypo-osmolality and hyponatremia; Z68.43 Body mass index [BMI] 50.0-59.9, adult; J96.11 Chronic respiratory failure with hypoxia; E66.01 Morbid (severe) obesity due to excess calories; G47.33 Obstructive sleep apnea (adult) (pediatric); Z71.3 Dietary counseling and surveillance; J44.9 Chronic obstructive pulmonary disease, unspecified; I89.0 Lymphedema, not elsewhere classified; D64.9 Anemia, unspecified; M06.00 Rheumatoid arthritis without rheumatoid factor, unspecified site; I11.0 Hypertensive heart disease with heart failure; I48.0 Paroxysmal atrial fibrillation; Z99.81 Dependence on supplemental oxygen; Z79.899 Other long term (current) drug therapy
CPT/HCPCS: 36415; 80048; 80053; 80202; 82784; 83540; 83605; 83615; 83880; 83883; 84165; 85025; 85652; 86140; 86334; 87040; 87640; 87641; 93970; 94660; 97116; 97162; 99285; J0690; J2405; J2916; J3370; J3371

== ENCOUNTER → 2024-04-10 16:06 | Outpatient (BNV) | payer MEDICARE, SELFPAY | PROVIDERS: Emergency Provider Emergency Medicine; PCP Nurse Practitioner Family; Visit Provider Radiology Diagnostic Radiology | DX: R22.43 Localized swelling, mass and lump, lower limb, bilateral (principal) | CPT/HCPCS: 93970 ==

== ENCOUNTER → 2024-04-10 20:40 | Outpatient (BNV) | payer MEDICARE, SELFPAY | PROVIDERS: Admitting Provider Internal Medicine; Emergency Provider Emergency Medicine; PCP Nurse Practitioner Family; Visit Provider Internal Medicine | DX: A41.9 Sepsis, unspecified organism (principal); L03.115 Cellulitis of right lower limb; L03.116 Cellulitis of left lower limb; I50.32 Chronic diastolic (congestive) heart failure | CPT/HCPCS: 99233 ==

== ENCOUNTER → 2024-04-10 20:40 | Outpatient (BNV) | payer MEDICARE, SELFPAY | PROVIDERS: Admitting Provider Internal Medicine; Emergency Provider Emergency Medicine; PCP Nurse Practitioner Family; Visit Provider Internal Medicine | DX: D64.9 Anemia, unspecified (principal) | CPT/HCPCS: 99222 ==

== ENCOUNTER → 2024-04-10 20:40 | Outpatient (BNV) | payer MEDICARE, SELFPAY | PROVIDERS: Admitting Provider Internal Medicine; Emergency Provider Emergency Medicine; PCP Nurse Practitioner Family; Visit Provider Internal Medicine | DX: A41.9 Sepsis, unspecified organism (principal); L03.115 Cellulitis of right lower limb; L03.116 Cellulitis of left lower limb | CPT/HCPCS: 99221 ==

== ENCOUNTER 2024-04-19 12:29 | Outpatient (REF) | payer MEDICARE, SELFPAY ==
--- OUTSIDE RECORDS SUMMARY | 2024-04-19 14:38 | XMS_ITS ---
Author Organization [facility] Address [address] [place] [address] Care Team Providers Care Primary Substance Abuse Counselor Name Role Phone Diego Gallagher Primary Care Provider Unav ailable Nancy Hardy Unavailable [phone] Encounters Encounter Location Date Provider Diagnosis [facility] [address] [place] [address] 04/13/2024 Nancy Hardy Plan Of Treatment No Information Progress Notes * Dinh BUCKLEY RDOB:[birth year] (69 yo M)Acc No.[id number]:04/13/2024 Progress Note Patient:?Dinh BUCKLEY Provider:?Nancy Hardy DPM :1955???Age:69 Y???Sex:Male Raj e:04/13/2024 Address:[address] [place] [address] [id number] Pcp:MARU Goldstein Subjective: * Chief Complaints: * ??? * Medical History:? Objective: * Vitals:? Assessment: Plan: * Treatment: * Images: * The named appointment provid er may or may not be the originator of this progress note, and it is not deemed complete until electronically signed by the appointment provider. Sign off status: Pending * Provider:?Nancy Hardy DPM Date:?02/ Generated for Katlin ramirez/Cece/Jemima on:?04/19/2024 02:38 PM EST
--- OUTSIDE RECORDS SUMMARY | 2024-04-19 14:38 | XMS_ITS | Encounter Summary ---
Author Organization [facility] Address [address] [place] [address] Care Team Providers Care Generation Engineering Technologist Name Role Phone Venus Belcher MD Primary Care Provider + Encounter Details Date Type Department Care Team (Late st Contact Info) Description 04/13/2024 Lab Requisition [facility] - Main Lab [address] [facility] [place] [address] Venus Belcher MD [address] [address] Cellulitis, unspecified Social History Tobacco Use Types Packs/Day Years Used Date Smoking Tobacco: Never Assessed Sex and Gender Information Value Date Recorded Sex Assigned at Not on file Legal Sex Male 1:13 AM EST Gender Identity Not on file Sexual Orientation Not on file documented as of this encounter Plan of Treatment Not on file documented as of this encounter Visit Diagnoses Diagnosis Cellulitis, unspecified documented in this encounter Care Teams Generation Engineering Technologist Relationship Specialty Start Date End Date Venus Belcher MD [address] [place] [address] [phone] PCP - General Family Medicine 04/06/24 documented as of this encounter
--- OUTSIDE RECORDS SUMMARY | 2024-04-19 14:38 | XMS_ITS | Encounter Summary ---
Author Organization [facility] Address [address] [place] [address] Care Team Providers Care Improvement Engineer Name Role Phone Venus Belcher MD Primary Care Provider + Encounter Details Date Type Department Care Team (Late st Contact Info) Description 04/06/2024 Lab Requisition [facility] - Main Lab [address] [place] [address] Venus Belcher MD 819 [facility] 1 [place], [place] [phone] Cellulitis, unspecified Social History Tobacco Use Types [...] LAB HEMETOLOGY METHOD 04/06/2024 3:24 PM EST [facility] RBC 3.30(L) 4.50 - 5.50 M/mcL LAB HEMETOLOGY METHOD 04/06/2024 3:24 PM EST [facility] Hemoglobin 10.9(L) 13.5 - 17.5 g/dL LAB HEMETOLOGY METHOD 04/06/2024 3:24 PM EST [facility] Hematocrit 32.9(L) 42.0 - 54.0 % LAB HEMETOLOGY METHOD 04/06/2024 3:24 PM [facility] MCV 98.5(H) 79.0 - 98.0 FL LAB HEMETOLOGY METHOD 04/06/2024 3:24 PM [facility] MCH 32.6(H) 27.0 - 32.0 pcg LAB HEMETOLOGY METHOD 04/06/2024 3:24 PM EST [facility] MCHC 33.1 32.0 - 37.0 g/dL LAB HEMETOLOGY METHOD 04/06/2024 3:24 PM [facility] RDW 13.9 11.0 - 15.0 % LAB HEMETOLOGY METHOD 04/06/2024 3:24 PM [facility] Platelets 476(H) 130 - 400 K/mcL LAB HEMETOLOGY METHOD 04/06/2024 3:24 PM EST [facility] MPV 9.8 7.0 - 11.0 FL LAB HEMETOLOGY METHOD 04/06/2024 3:24 PM EST [facility] NRBC 0.0 <1.0 % LAB HEMETOLOGY METHOD 04/06/2024 3:24 PM [facility] NRBC Absolute 0.00 <0.10 K/mcL LAB HEMETOLOGY METHOD 04/06/2024 3:24 PM [facility] Blood Venous blood specimen / Unknown Venipuncture / Unknown 04/06/2024 1:21 PM EST 04/06/2024 2:57 PM EST us Venus Belcher MD LAB BLOOD ORDERABLES Fin al Result [facility] [address] [place] [address], documented in this encounter Visit Diagnoses Diagnosis Cellulitis, unspecified documented in this encounter Care Teams Improvement Engineer Relationship Specialty Start Date End Date Venus Belcher MD [address] [address] PCP - General Family Medicine 04/06/24 documented as of this encounter
--- OUTSIDE RECORDS SUMMARY | 2024-04-19 14:38 | XMS_ITS ---
Author Organization [facility] Address [address] [facility] [place] [address] Care Team Providers Care School Cafeteria Cook Head Name Role Phone Diego Gallagher Primary Care Provider Unav ailable MohamudguillermoNancy Unavailable [phone] Medications Medication SIG (Take, Route, Frequency, Duration) [...] Active Encounters Encounter Location Date Provider Diagnosis [facility] [address] [place] [address] 03/24/2024 Nancy Hardy Plan Of Treatment No Information Progress Notes * Dinh BUCKLEY RDOB:[birth year] (69 yo M)Acc No.[id number]:03/24/2024 Progress Note Patient:?Dinh BUCKLEY Provider:?Nancy Hardy DPM :1955???Age:69 Y???Sex:Male Raj e:03/24/2024 Address:[address] [place], [place] [id number] Pcp:MARU Goldstein Subjective: * Chief Complaints: * [...] Hardy DPM Date:?06/2024 Generated for Katlin ramirez/Cece/Jemima on:?04/19/2024 02:38 PM EST
--- OUTSIDE RECORDS SUMMARY | 2024-04-19 14:38 | XMS_ITS | Encounter Summary ---
Author Organization [facility] Address [address] [place] [address] Care Team Providers Care Billboard Erector Helper Name Role Phone Venus Belcher MD Primary Care Provider + Encounter Details Date Type Department Care Team (Late st Contact Info) Description 04/06/[address] [facility] - Main Lab [address] [place] [address] Venus Belcher MD 819 [facility] 1 [place], [place] [phone] Cellulitis, unspecified Social History Tobacco Use Types [...] LAB CHEMISTRY METHOD 04/06/2024 11:35 AM EST [facility] Potassium 4.5 3.5 - 5.5 mmol/L LAB CHEMISTRY METHOD 04/06/2024 11:35 AM EST [facility] Comment:Hemolysis present Chloride 94(L) 96 - 110 mmol/L LAB CHEMISTRY METHOD 04/06/2024 11:35 AM [facility] CO2 23 21 - 32 mmol/L LAB CHEMISTRY METHOD 04/06/2024 11:35 AM [facility] Anion Gap 12(H) 3 - 11 LAB CHEMISTRY METHOD 04/06/2024 11:35 AM [facility] Glucose 112(H) 70 - 100 mg/dL LAB CHEMISTRY METHOD 04/06/2024 11:35 AM [facility] BUN 12 5 - 25 mg/dL LAB CHEMISTRY METHOD 04/06/2024 11:35 AM [facility] Creatinine 1.03 0.70 - 1.30 mg/dL LAB CHEMISTRY METHOD 04/06/2024 11:35 AM [facility] eGFR 80 >=60 mL/min/1. 73m2 LAB CHEMISTRY METHOD 04/06/2024 11:35 AM [facility] Comment:Calculation based on the??Chronic Kidney Disease Epidemiology Collaboration (CKD-EPI) equation refit??without adjustment for race. BUN/Creatinine Ratio 11.7 LAB CHEMISTRY METHOD 04/06/2024 11:35 AM [facility] Calcium 8.9 8.5 - 10.5 mg/dL LAB CHEMISTRY METHOD 04/06/2024 11:35 AM [facility] AST (SGOT) 42 10 - 42 unit/L LAB CHEMISTRY METHOD 04/06/2024 11:35 AM [facility] Comment:Hemolysis present ALT (SGPT) 30 10 - 60 unit/L LAB CHEMISTRY METHOD 04/06/2024 11:35 AM [facility] Alkaline Phosphatase 75 42 - 121 unit/L LAB CHEMISTRY METHOD 04/06/2024 11:35 AM [facility] Total Protein 6.8 6.0 - 8.0 g/dL LAB CHEMISTRY METHOD 04/06/2024 11:35 AM [facility] Albumin 2.1(L) 3.2 - 5.0 g/dL LAB CHEMISTRY METHOD 04/06/2024 11:35 AM [facility] Total Bilirubin 1.3 0.0 - 1.4 mg/dL LAB CHEMISTRY METHOD 04/06/2024 11:35 AM EST [facility] Blood Venous blood specimen / Unknown Venipuncture / Unknown 04/06/2024 9:00 AM EST 04/06/2024 9:48 AM EST us Venus Belcher MD LAB BLOOD ORDERABLES Fin al Result [facility] [address] [place] [address], documented in this encounter Visit Diagnoses Diagnosis Cellulitis, unspecified documented in this encounter Care Teams Billboard Erector Helper Relationship Specialty Start Date End Date Venus Belcher MD [address] [place] [id number] PCP - General Family Medicine 04/06/24 documented as of this encounter
--- OUTSIDE RECORDS SUMMARY | 2024-04-19 14:38 | XMS_ITS | Encounter Summary ---
Author Organization [facility] Address [address] [place] [address] Care Team Providers Care Lead Blender Name Role Phone Venus Belcher MD Primary Care Provider + Encounter Details Date Type Department Care Team (Late st Contact Info) Description 04/18/2024 Lab Requisition [facility] - Main Lab [address] [facility] [place] [address] Venus Belcher MD [address] [address] Cellulitis, unspecified Social History Tobacco Use Types [...] unspecified documented in this encounter Care Teams Lead Blender Relationship Specialty Start Date End Date Venus Belcher MD [address] [phone] PCP - General Family Medicine 04/06/24 documented as of this encounter
--- OUTSIDE RECORDS SUMMARY | 2024-04-19 14:38 | XMS_ITS ---
Author Organization [facility] Address [address] [place] [address] Care Team Providers Care Crna Name Role Phone Diego Gallagher Primary Care Provider Unav ailable Nancy Hardy Unavailable [phone] REASON FOR VISIT cx appt Encounters Encounter Location Date Provider Diagnosis [facility] [address] [place] [address] 04/09/2024 Nancy Hardy Plan Of Treatment No Information Progress Notes * Dinh BUCKLEY RDOB:[birth year] (69 yo M)Acc No.[id number]:04/09/2024 Patient:?Dinh BUCKLEY :1955???Age:69 Y???Sex:Male Address:[address] [place], [place] [address], [address] * true * Date:? Generated for Printi ng/Faraizag/eTransmitting on:?04/19/2024 02:38 PM EST
--- OUTSIDE RECORDS SUMMARY | 2024-04-19 14:38 | XMS_ITS | Clinical Summary ---
Author Organization [address] Address [address] [place] [address] Phone Care Team Providers Care Zig Zag Stitcher Name Role Phone Venus Belcher MD Primary Care Provider + Encounters Date Type Department Care Team Description 04/18/2024 Lab Requisition [facility] Lab [address] [place] [address] Venus Belcher MD Cellulitis, unspecified 04/13/2024 Lab Requisition [facility] Lab [address] [place] [phone] Venus Belcher MD Cellulitis, unspecified 04/06/2024 Lab Requisition [facility] Lab [address] [place] [phone] Venus Belcher MD Cellulitis, unspecified 04/06/2024 Lab Requisition [facility] Lab [address] [place] [phone] Venus Belcher MD Cellulitis, unspecified from Last [...] 01/20/2022 Falls Risk Assessment 2022 COVID-19 Vaccine (2023-2 5 season) 2023 Influenza Vaccine (#1) 2023 [...] PM EST) WBC 15.1(H) 4.8 - 10.8 K/[facility] LAB HEMETOLOGY METHOD 04/06/2024 3:24 PM EST [facility] RBC 3.30(L) 4.50 - 5.50 M/[facility] LAB HEMETOLOGY METHOD 04/06/2024 3:24 PM [facility] Hemoglobin 10.9(L) 13.5 - 17.5 g/dL LAB HEMETOLOGY METHOD 04/06/2024 3:24 PM [facility] LAB Hematocrit 32.9(L) 42.0 - 54.0 % LAB HEMETOLOGY METHOD 04/06/2024 3:24 PM [facility] MCV 98.5(H) 79.0 - 98.0 FL LAB HEMETOLOGY METHOD 04/06/2024 3:24 PM [facility] LAB MCH 32.6(H) 27.0 - 32.0 pcg LAB HEMETOLOGY METHOD 04/06/2024 3:24 PM [facility] LAB MCHC 33.1 32.0 - 37.0 g/dL LAB HEMETOLOGY METHOD 04/06/2024 3:24 PM [facility] RDW 13.9 11.0 - 15.0 % LAB HEMETOLOGY METHOD 04/06/2024 3:24 PM [facility] LAB Platelets 476(H) 130 - 400 K/mcL LAB HEMETOLOGY METHOD 04/06/2024 3:24 PM [facility] LAB MPV 9.8 7.0 - 11.0 FL LAB HEMETOLOGY METHOD 04/06/2024 3:24 PM [facility] LAB NRBC 0.0 <1.0 % LAB HEMETOLOGY METHOD 04/06/2024 3:24 PM [facility] NRBC Absolute 0.00 <0.10 K/mcL LAB HEMETOLOGY METHOD 04/06/2024 3:24 PM [facility] Blood Venous blood specimen / Unknown Venipuncture / Unknown 04/06/2024 1:21 PM EST 04/06/2024 2:57 PM EST Venus Belcher MD LAB BLOOD ORDERABLES Fin al Result [facility] [address] [place] [address], * (ABNORMAL) Comprehensive metabolic panel (04/06/2024 9:00 [...] AM [facility] Total Protein 6.8 6.0 - 8.0 g/dL LAB CHEMISTRY METHOD 04/06/2024 11:35 AM [facility] Albumin 2.1(L) 3.2 - 5.0 g/dL LAB CHEMISTRY METHOD 04/06/2024 11:35 AM [facility] Total Bilirubin 1.3 0.0 - 1.4 mg/dL LAB CHEMISTRY METHOD 04/06/2024 11:35 AM [facility] Blood Venous blood specimen / Unknown Venipuncture / Unknown 04/06/2024 9:00 AM EST 04/06/2024 9:48 AM EST Venus Belcher MD LAB BLOOD ORDERABLES Fin al Result [facility] [address] [place] [address], from Last 3 Months Insurance MEDICARE [facility] Advance Directives Documents on File Type Date Recorded Patient Rn Clinical Expl anation Health Care Decision (hx) 04/17/2016 AD [place] DIRECTIVE Health Care Decision (hx) 04/17/2016 AD [place] DIRECTIVE Health Care Decision (hx) 04/17/2016 AD [place] DIRECTIVE Health Care Decision (hx) 04/17/2016 AD [place] DIRECTIVE Care Teams Zig Zag Stitcher Relationship Specialty Start Date End Date Venus Belcher MD [address] [place] [id number] PCP - General Family Medicine 04/06/24
--- OUTSIDE RECORDS SUMMARY | 2024-04-19 14:39 | XMS_ITS ---
Author Organization [facility] Address Unknown Medications Medication Dose Frequency Directions Start Date End Raj e Vitamin C Oral Tablet 1000 mg 24 h Give 1000 mg by mout h one time a day for supplement 04/06/2024 Albuterol Sulfate HFA Inhalation Aerosol Solution 108 (90 Base) MCG/ACT 2 2 puff inhale orally every 6 hours as needed for sob or wheeze 04/05/2024 Colace Oral Capsule 100 MG 100 mg 12 h Give 100 mg by mouth two times a day for constipation 04/06/2024 Methenamine Hippurate Oral Tablet 1 GM 1 {tbl} 24 h Give 1 tablet by autumn th one time a day for preventative 04/06/2024 rOPINIRole HCl Oral Tablet 2 MG 2 mg 8 h Give 2 mg by mouth three times a day for spasms 04/06/2024 Atorvastatin Calcium Oral Tablet 80 MG 80 mg 24 h Give 80 mg by mouth one time a day for cholesterol control 04/06/2024 Amiodarone HCl Oral Tablet 200 MG 200 mg 24 h Give 200 mg by mouth one time a day for Heart health 04/06/2024 Lyrica Oral Capsule 150 MG 150 mg 8 h Give 150 mg by mouth three times a day for anticonvulsant 04/06/2024 DULoxetine HCl Oral Capsule Delayed Release Sprinkle 60 MG 60 mg 24 h Give 60 mg by mouth one time a day for antidepressant 04/06/2024 Ambien Oral Tablet 10 MG 10 mg Give 10 mg by mouth every 24 hours as needed for insomnia 04/05/2024 Nystatin Mouth/Throat Suspension 556419 UNIT/ML 119936 8 h Give 132962 unit by mouth three times a day for thrush until 04/07/2024 00:00 04/06/2024 04/07/2024 Anoro Ellipta Inhalation Aerosol Powder Breath Activated 62.5-25 MCG/ACT 1 24 h 1 inhalation inhale orally one time a day for respiratory 04/06/2024 Doxycycline Hyclate Oral Tablet 100 MG 100 mg 12 h Give 100 mg by mouth two times a day for infection for 4 Days 04/06/2024 04/10/2024 Acetaminophen Oral Tablet 975 mg Give 975 mg by mouth every 4 hours as needed for pain 04/05/2024 Spironolactone Oral Tablet 25 MG 25 mg 24 h Give 25 mg by mouth one time a day for HTN 04/06/2024 Ipratropium-Albutero l Solution 0.5-2.5 (3) MG/3ML 3 mL 3 ml inhale orally v ia nebulizer every 6 hours as needed for sob or wheeze ANNALISA = Clear lung soundsADV = AdventitiousDIMI = Diminished 04/05/2024 MiraLax Oral Packet 17 GM 17 Give 17 gram by mout h in the morning for constipation 04/06/2024 Amoxicillin-Pot Clavulanate Oral Tablet 875-125 MG 1 {tbl} 12 h Give 1 tablet by autumn th two times a day for infection for 4 Days 04/06/2024 04/07/2024 Ammonium Lactate External Cream 12 % Apply to legs topically every day shift for skin alteration 04/06/2024 04/07/2024 Doxycycline Hyclate Oral Tablet 100 MG 100 mg 12 h Give 100 mg by mouth two times a day for infection 04/06/2024 04/05/2024 Bumex Oral Tablet 2 MG 2 mg 24 h Give 2 mg by mouth o ne time a day for diuretic 04/06/2024 Doxazosin Mesylate Oral Tablet 8 MG 8 mg 24 h Give 8 mg by mouth o ne time a day for prostate 04/06/2024 Finasteride Oral Tablet 5 MG 5 mg 24 h Give 5 mg by mouth o ne time a day for prostate 04/06/2024 oxyBUTYnin Chloride ER Oral Tablet Extended Release 24 Hour 10 MG 10 mg 24 h Give 10 mg by mouth one time a day for bladder spasms 04/06/2024 oxyCODONE HCl Oral Tablet 5 MG 10 mg Give 10 mg by mouth every 4 hours as needed for pain 04/05/2024 Fleet Enema Enema 7-19 GM/118ML 1 {Dose} Insert 1 dose rectal ly as needed for Constipation (Step 3) as needed if no bowel movement for 8 hours after bisacodyl suppository. 04/05/2024 Milk of Magnesia Suspension 400 MG/5ML 30 mL Give 30 ml by mouth as needed for Constipation (Step 1) As needed if no bowel movement for three days. (Do not use for Hemodialysis patients). 04/05/2024 Bisacodyl Suppository 10 MG 1 Insert 1 suppository rectally as needed for If no bowel movement for 8 hours after Milk of Magnesia 04/05/2024 Zofran Oral Tablet 4 MG 4 mg Give 4 mg by mouth every 8 hours as needed for nausea/ vomitting 04/06/2024 Ammonium Lactate External Cream 12 % Apply to legs topically every evening shift for skin alteration 04/07/2024 cefTRIAXone Sodium Injection Solution Reconstituted 1 GM 1 Use 1 gram intravenously in the evening for Bilateral cellulitis until 04/10/2024 23:59 04/08/2024 04/11/2024 Acidophilus Oral Capsule 1 Give 1 caplet by autumn th in the morning for ABX TX 04/08/2024 Probitrol Oral Capsule 1 {Capsule} Give 1 capsule by mouth in the morning for ABX TX 04/08/2024 04/07/2024 Normal Saline Flush Solution 0.9 % 10 mL Use 10 ml intravenously every day and evening shift for IV Maintenance No medication infusion. To maintain line for later infusion. Flush every shift 04/07/2024 Normal Saline Flush Solution 0.9 % 10 mL Use 10 ml intravenously in the morning for Cellulitis for 4 Days Flush IV infusion line before medication infusion. 04/08/2024 04/12/2024 cefTRIAXone Sodium Injection Solution Reconstituted 2 GM 2 Use 2 gram intravenously one time only for Serina Cellitlitis until 04/07/2024 23:59 04/07/2024 04/08/2024 cefTRIAXone Sodium Intravenous Solution Reconstituted 1 GM 1 Use 1 gram intravenously in the evening for serina cellulitis until 04/14/2024 23:59 04/11/2024 04/15/2024 Medications Administered Medication Dose Frequency Status Start Date End Date Vitamin C Oral Tablet 1000 mg 24 h Hospitalized 04/12 Albuterol Sulfate HFA Inhalation Aerosol Solution 108 (90 Base) MCG/ACT 2 04/05/2024 Colace Oral Capsule 100 MG 100 mg 12 h Hospitalized 04/12/2024 Methenamine Hippurate Oral Tablet 1 GM 1 {tbl} 24 h Hospitalized 04/12/2024 rOPINIRole HCl Oral Tablet 2 MG 2 mg 8 h Hospitalized 04/12/2024 Atorvastatin Calcium Oral Tablet 80 MG 80 mg 24 h Hospitalized 04/12/2024 Amiodarone HCl Oral Tablet 2 00 MG 200 mg 24 h Hospitalized 04/12/2024 Lyrica Oral Capsule 150 MG 150 mg 8 h Hospitalized 04/12/2024 DULoxetine HCl Oral Capsule Delayed Release Sprinkle 60 MG 60 mg 24 h Hospitalized 04/12/2024 Ambien Oral Tablet 10 MG 10 mg 04/10 Nystatin Mouth/Throat Suspension 879843 UNIT/ML 267892 8 h 04/07/2024 Anoro Ellipta Inhalation Aerosol Powder Breath Activated 62.5-25 MCG/ACT 1 24 h Hospitalized 04/12/2024 Doxycycline Hyclate Oral Tablet 100 MG 100 mg 12 h 04/09/2024 Acetaminophen Oral Tablet 975 mg 03/20 Spironolactone Oral Tablet 2 5 MG 25 mg 24 h Hospitalized 04/12/2024 Ipratropium-Albuterol Soluti on 0.5-2.5 (3) MG/3ML 3 mL 04/05/2024 MiraLax Oral Packet 17 GM 17 Hospitalized 0 04/12/2024 Amoxicillin-Pot Clavulanate Oral Tablet 875-125 MG 1 {tbl} 12 h 04/07/2024 Ammonium Lactate External Cream 12 % 04/06/2024 Doxycycline Hyclate Oral Tablet 100 MG 100 mg 12 h 04/06/2024 Bumex Oral Tablet 2 MG 2 mg 24 h Hospitalized 03/21 Doxazosin Mesylate Oral Tabl et 8 MG 8 mg 24 h Hospitalized 04/12/2024 Finasteride Oral Tablet 5 MG 5 mg 24 h Hospitalize d 04/12/2024 oxyBUTYnin Chloride ER Oral Tablet Extended Release 24 Hour 10 MG 10 mg 24 h Hospitalized 04/12/2024 oxyCODONE HCl Oral Tablet 5 MG 10 mg 04/10/2024 Fleet Enema Enema 7-19 GM/118ML 1 {Dose} 04/05/2024 Milk of Magnesia Suspension 400 MG/5ML 30 mL 04/05/2024 Bisacodyl Suppository 10 MG 1 Zofran Oral Tablet 4 MG 4 mg 2024 Ammonium Lactate External Cream 12 % Hospitalized 04/13/2024 cefTRIAXone Sodium Injection Solution Reconstituted 1 GM 1 Hospitalized 04/10/2024 Acidophilus Oral Capsule 1 Hospitalized Probitrol Oral Capsule 1 {Capsule} 04/08 Normal Saline Flush Solution 0.9 % 10 mL Hospitalized 04/12/2024 Normal Saline Flush Solution 0.9 % 10 mL Hospitalized 04/11/2024 cefTRIAXone Sodium Injection Solution Reconstituted 2 GM 2 04/08/2024 cefTRIAXone Sodium Intraveno us Solution Reconstituted 1 GM 1 Hospitalized 04/12/2024 Problems Problem Status Start Date End Date LYMPHEDEMA, NOT ELSEWHERE CL ASSIFIED (Primary) (I89.0 - ICD-10-CM) ACTIVE 04/05/2024 WEAKNESS (R53.1 - ICD-10-CM) ACTIVE 04/05/2024 VENOUS INSUFFICIENCY (CHRONI C) (PERIPHERAL) (I87.2 - ICD-10-CM) ACTIVE 04/05/2024 UNSPECIFIED FALL, SUBSEQUENT ENCOUNTER (W19.XXXD - ICD-10-CM) ACTIVE 04/05/2024 CHRONIC OBSTRUCTIVE PULMONAR Y DISEASE, UNSPECIFIED (J44.9 - ICD-10-CM) ACTIVE 04/05/2024 MORBID (SEVERE) OBESITY DUE TO EXCESS CALORIES (E66.01 - ICD-10-CM) ACTIVE 04/05/2024 MUSCLE WEAKNESS (GENERALIZED) (M62.81 - ICD-10-CM) ACT REINA 04/05/2024 OTHER ABNORMALITIES OF GAIT AND MOBILITY (R26.89 - ICD-10-CM) ACTIVE 04/05/2024 RHEUMATOID ARTHRITIS WITHOUT RHEUMATOID FACTOR, UNSPECIFIED SITE (M06.00 - ICD-10-CM) ACTIVE 04/05/2024 HISTORY OF FALLING (Z91.81 - ICD-10-CM) ACTIVE 0 04/05/2024 ESSENTIAL (PRIMARY) HYPERTENSION (I10 - ICD-10-CM) ACT REINA 04/05/2024 CHRONIC ATRIAL FIBRILLATION, UNSPECIFIED (I48.20 - ICD-10-CM) ACTIVE 04/05/2024 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-CM) ACTIVE 04/05/2024 OBSTRUCTIVE SLEEP APNEA (NOEL LT) (PEDIATRIC) (G47.33 - ICD-10-CM) ACTIVE 04/05/2024 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 - ICD-10-CM) ACTIVE 04/05/2024 OVERACTIVE BLADDER (N32.81 - ICD-10-CM) ACTIVE 0 04/05/2024 DEPRESSION, UNSPECIFIED (F32.A - ICD-10-CM) ACTIVE 04/05/2024 POLYNEUROPATHY, UNSPECIFIED (G62.9 - ICD-10-CM) ACTIVE 04/05/2024 INSOMNIA, UNSPECIFIED (G47.00 - ICD-10-CM) ACTIVE 04/05/2024 UNSTEADINESS ON FEET (R26.81 - ICD-10-CM) ACTIVE 04/05/2024 UNSPECIFIED LACK OF COORDINATION (R27.9 - ICD-10-CM) A CTIVE 04/05/2024 Encounters Encounter Performer Performer Role Encounter Diagnoses [facility] 5 01:45 pm EST - 5 03:00 pm EST Discharge - Discharged / Transferred to another hospital - [facility] 5 03:07 pm EST - 5 12:00 am EST Reason For Referral worsening cellulitis Immunizations Vaccine Date PPSV23 09/19/2015 12:00 am EDT Influenza-High Dose(Fluzone) 10/06/2023 12:00 am EDT PVC20 10/06/2023 12:00 am EDT Social History Vital Signs Vital Sign Reading Time Taken painLevel 0 {score} 04/10/2024 03:18 pm EST painLevel 0 {score} 04/09/2024 11:49 pm EST painLevel 1 {score} 04/09/2024 09:08 pm EST painLevel 3 {score} 04/09/2024 09:05 pm EST painLevel 0 {score} 04/09/2024 04:14 pm EST painLevel 0 {score} 04/09/2024 03:05 pm EST painLevel 0 {score} 04/08/2024 11:39 pm EST painLevel 1 {score} 04/08/2024 08:48 pm EST painLevel 3 {score} 04/08/2024 08:46 pm EST painLevel 0 {score} 04/08/2024 04:18 pm EST painLevel 0 {score} 04/08/2024 02:22 pm EST painLevel 0 {score} 04/07/2024 11:42 pm EST painLevel 1 {score} 04/07/2024 09:04 pm EST painLevel 4 {score} 04/07/2024 08:54 pm EST painLevel 3 {score} 04/07/2024 04:12 pm EST heartrate 104 /min 04/10/2024 02:18 pm EST heartrate 99 /min 04/08/2024 08:45 pm EST heartrate 106 /min 04/08/2024 02:22 pm EST heartrate 88 /min 04/08/2024 06:10 am EST heartrate 88 /min 04/07/2024 05:31 pm EST respirations 18 /min 04/10/2024 02:18 pm EST respirations 18 /min 04/09/2024 11:51 pm EST respirations 18 /min 04/09/2024 07:18 pm EST respirations 18 /min 04/08/2024 11:48 pm EST respirations 20 /min 04/08/2024 08:45 pm EST respirations 18 /min 04/08/2024 06:52 pm EST respirations 20 /min 04/08/2024 02:22 pm EST respirations 18 /min 04/08/2024 06:10 am EST respirations 18 /min 04/07/2024 11:48 pm EST respirations 18 /min 04/07/2024 07:38 pm EST respirations 18 /min 04/07/2024 05:31 pm EST systolicValue 130 mm[Hg] 04/10/2024 02:16 pm EST diastolicValue 70 mm[Hg] 04/10/2024 02:16 pm EST systolicValue 132 mm[Hg] 04/08/2024 08:45 pm EST diastolicValue 62 mm[Hg] 04/08/2024 08:45 pm EST systolicValue 130 mm[Hg] 04/08/2024 02:22 pm EST diastolicValue 60 mm[Hg] 04/08/2024 02:22 pm EST systolicValue 140 mm[Hg] 04/08/2024 06:10 am EST diastolicValue 82 mm[Hg] 04/08/2024 06:10 am EST systolicValue 142 mm[Hg] 04/07/2024 05:31 pm EST diastolicValue 88 mm[Hg] 04/07/2024 05:31 pm EST oxygenSaturation 94 % 04/09/2024 11:5 1 pm EST oxygenSaturation 93 % 04/09/2024 07:1 8 pm EST oxygenSaturation 93 % 04/08/2024 11:4 8 pm EST oxygenSaturation 92 % 04/08/2024 08:4 5 pm EST oxygenSaturation 91 % 04/08/2024 06:5 2 pm EST oxygenSaturation 91 % 04/08/2024 02:2 2 pm EST oxygenSaturation 95 % 04/08/2024 06:1 0 am EST oxygenSaturation 95 % 04/07/2024 11:4 8 pm EST oxygenSaturation 94 % 04/07/2024 07:3 8 pm EST oxygenSaturation 94 % 04/07/2024 05:3 1 pm EST temperature 98.4 [degF] 04/08/2024 08:45 pm EST temperature 98.7 [degF] 04/08/2024 02:22 pm EST temperature 97.9 [degF] 04/08/2024 06:10 am EST temperature 97.8 [degF] 04/07/2024 05:31 pm EST
--- OUTSIDE RECORDS SUMMARY | 2024-04-19 14:39 | XMS_ITS | Patient Health Record ---
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) Active confirmed Problem Mononeuropathy of lower limb (077960609) Neuritis of right foot (G57.91) Active confirmed Problem 87321862 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 Problem Atherosclerosis of poarch artery of both lower extremities, with unspecified presence of clinical manifestation (I70.203) Active confirmed Problem [id number] Atherosclerosi s of artery of both lower extremities (I70.203) Active confirmed Problem [id number] Neuropathic ul cer of right foot with fat layer exposed (L97.512) Active confirmed Vital Signs Blood pressure diastolic 70 mm Hg 01/09/2024 Height 6ft 4in in 01/09/2024 Blood pressure systolic 132 mm Hg 01/09/2024 Weight 425 lbs 01/09/2024 BMI 51.73 kg/m2 01/09/2024 Encounters Encounter Location Date Provider Diagnosis [facility] [address] [place] [address] 06/18/2023 Nancy Perica Atherosclerosis of poarch artery of both lower extremities, with unspecified presence of clinical manifestation I70.203 ; Neuropathy G62.9 ; Tinea unguium B35.1 ; Pain in right toe(s) M79.674 and Pain in left toe(s) M79.675 [facility] [address] [address] 01/09/2024 Nancy Hardy Neuropathy G62.9 ; Tinea unguium B35.1 ; Atherosclerosis of poarch artery of both lower extremities, with unspecified presence of clinical manifestation I70.203 ; Pain in right toe(s) M79.674 and Pain in left toe(s) M79.675 [facility] [address] 10/27/2023 Nancy Hardy [address] [address] 03/22/2024 Nancy Hardy [address] [address] 04/09/2024 Nancy Hardy Assessments Encounter Date Diagnosis (ICD Code) Assessment Notes Treatment Notes Treatment Clinical Notes Section Notes 06/18/2023 Atherosclerosis of poarch artery of both lower extremities, with unspecified presence of clinical manifestation (ICD-10 - I70.203) 01/09/2024 Tinea unguium (ICD-10 - B35.1) 01/09/2024 Neuropathy (ICD-10 - G62.9) 01/09/2024 Atherosclerosis of poarch artery of both lower extremities, with unspecified presence of clinical manifestation (ICD-10 - I70.203) 06/18/2023 Neuropathy (ICD-10 - G62.9) 06/18/2023 Tinea unguium (ICD-10 - B35.1) 06/18/2023 Pain in right toe(s) (ICD-10 - [...] Date Coverage End Date Medicare National Govt [employer] [facility] [address] [place] [address] [id number] Dinh Craven Self - patient is the insured [employer] [address] [place] [address] [phone] [id number] Dinh Craven Self - patient is the insured Medical (General) History Medical History History ICD Code Arthritis asthma Back,Hip,and Knee pain Lung disease Neuropathy Poor circulation thyroid Chicken pox Joint implants/screws A fib Surgical History Surgery Date(Month/Year) knee replacement 2013 appendectomy 2015 rotator cuff 2019 Hospitalization History Reason Date(Month/Year) [facility] [place] - [place] [facility] [place] chest pains, a fib
[2024-04-19 16:19] LABS: MANUAL DIFF FLAG NO
[2024-04-19 16:22] LABS: Basophils Absolute Auto 0.1 X10*3/uL (0.0-0.2); Basophils Percent Auto 0.5 % (0-2); Eosinophils Absolute Auto 0.2 X10*3/uL (0.0-0.4); Eosinophils Percent Auto 1.4 % (0-4); Imm Gran Abs Auto 0.12 X10*3/uL (0.00-0.03); Imm Gran Pct Auto 0.9 % (0.0-0.4); Lymphocytes Absolute Auto 1.7 X10*3/uL (1.2-4.9); Lymphocytes Percent Auto 13.2 % (20-40); Mean Corpuscular HGB Conc 33.3 g/dl (31.0-36.0); Mean Corpuscular Hemoglobin 31.7 pg (27.0-33.0); Mean Corpuscular Volume 95.1 fL (80.0-98.0); Mean Platelet Volume 9.5 fL (9.4-12.4); Monocytes Absolute Auto 0.9 X10*3/uL (0.1-1.2); Monocytes Percent Auto 6.7 % (2-11); Neutrophils Percent Auto 77.3 % (45-73); Platelet Count 504 X10*3/uL (160-400); Red Blood Count 3.47 X10*6/uL (4.60-5.80); Red Cell Distribution Width 14.5 % (11.0-16.0); White Blood Count 12.9 X10*3/uL (4.8-10.8)
[2024-04-19 16:26] LABS: Appearance Urine Clear; Color Urine Yellow; Glucose Urine UA Negative (Negative); Leukocyte Esterase Urine Negative (Negative); Nitrite Urine Negative (Negative); Urine Blood Negative (Negative); Urine Ketones Negative (Negative); Urine Protein Negative (Neg-Trace)
[2024-04-19 16:42] LABS: Alanine Aminotransferase 11 U/L (0-40); Alkaline Phosphatase 60 U/L (39-117); Anion Gap 15 (12-20); Aspartate Amino Transferase 47 U/L (5-37); Bilirubin Total 0.8 mg/dL (0.0-1.0); Blood Urea Nitrogen 13 mg/dL (9-16); Carbon Dioxide 30 mmol/L (22-29); Chloride 96 mmol/L (96-108); Estimated Glomerular Filt Rate > 60; Glucose Random 103 mg/dL (60-115); Potassium 3.7 mmol/L (3.3-5.1); Sodium 137 mmol/L (135-145); Total Protein 7.4 g/dL (6.5-8.0)
[2024-04-19 16:44] LABS: Alanine Aminotransferase 12 U/L (0-40); Alkaline Phosphatase 61 U/L (39-117); Anion Gap 15 (12-20); Aspartate Amino Transferase 42 U/L (5-37); Bilirubin Direct 0.5 mg/dL (0.0-0.5); Bilirubin Total 0.8 mg/dL (0.0-1.0); Blood Urea Nitrogen 14 mg/dL (9-16); Calcium 8.9 mg/dL (8.4-10.2); Carbon Dioxide 30 mmol/L (22-29); Chloride 96 mmol/L (96-108); Estimated Glomerular Filt Rate > 60; Glucose Random 102 mg/dL (60-115); Potassium 3.6 mmol/L (3.3-5.1); Sodium 137 mmol/L (135-145); Total Protein 7.4 g/dL (6.5-8.0)
[2024-04-19 16:59] LABS: Thyroid Stimulating Hormone 1.21 uIU/mL (0.32-4.0)
[2024-04-19 17:01] LABS: Free T4 (Free Thyroxine) 1.42 ng/dL (0.71-1.85)
[2024-04-20 05:13] LABS: Triiodothyronine T3 Free 2.7 pg/mL (2.3-4.2)
== END 2024-04-19 12:30 | disposition home or self-care (01) ==
LOC: HO.HMGCLDS 12:29
PROVIDERS: Internal Medicine Endocrinology, Diabetes & Metabolism; Internal Medicine Hypertension Specialist; Student in an Organized Health Care Education/Training Program; PCP Nurse Practitioner Family; Visit Provider Neurological Surgery
DX: D64.9 Anemia, unspecified (principal); N17.9 Acute kidney failure, unspecified; R79.89 Other specified abnormal findings of blood chemistry; D72.829 Elevated white blood cell count, unspecified; N39.0 Urinary tract infection, site not specified
CPT/HCPCS: 36415; 80048; 80053; 80076; 81003; 82248; 84439; 84443; 84481; 85025

== ENCOUNTER 2024-04-21 08:04 | Outpatient (AMB) | payer MEDICARE, SELFPAY ==
--- NOTE | 2024-04-21 07:59 | MHC.PC.OV ---
Intake Visit Reasons: tcm Allergies No Known Allergies [No Known Allergies*] Allergy (Verified 04/10/24 16:04) Tobacco use date assessed: 04/21/24 Fall risk assessment: No Falls in past year Last assessed Fall Risk: 04/21/24 Dental Screening Dental Screen Date: 04/21/24 Did you have a dental visit in the last 12 months?: Yes Did you have a dental problem in the last 6 months where you did not have access to dental care?: No Was dental information given to patient?: Patient has dentist HPI tcm HPI Details History of Present Illness The patient is a 69-year-old male presenting with a need for a follow-up after recent hospital discharge. His admission was due to sepsis, underpinned by recurrent cellulitis of the bilateral lower extremities, necessitating inpatient care. During hospitalization, he displayed worsening anemia identified through elevated ESR and abnormal protein-albumin ratios, subsequently addressing it with iron supplementation and omeprazole post-discharge. His cellulitis was managed with antibiotics, avoiding complications such as deep vein thrombosis and continuing treatment with doxycycline. Physical rehabilitation efforts, combined with in-home nursing services, contribute positively to his condition. The patient's obesity remains a concern, with past efforts to initiate GLP-1 agonist therapy unsuccessful due to insurance barriers. He continues to pursue weight management through diet modification. He is engaged in follow-up across various specialties, highlighting a multi-faceted approach to his ongoing healthcare needs. insomnia: zolpidem helps but he is not staying asleep (on 10mg immediate release currently) Review of Systems - General: Reports no acute distress. - Neurological: Denies any new neurological deficits. - Cardiovascular: Denies chest pain or new symptoms. - Gastrointestinal: Denies any melena or hematochezia. - Respiratory: Denies increased shortness of breath. Plan Management of the recurrent cellulitis involves the continued use of doxycycline as advised by infectious disease specialists. For anemia, ongoing iron supplementation is recommended, with further investigation via gastroenterology if hematocrit and hemoglobin levels decline. Obesity management will emphasize dietary changes. The patient will proceed with current physical therapy and VNA services. Follow-up appointments with primary care and pertinent specialists are planned to ensure comprehensive management. sending zolpidem er 12.5mg to try to help keep him asleep. Lastly, ? if a hospital bed may help him with sleep as well, rather than sleeping in a recliner. I will look into this. Discussion Notes I discussed with the patient the importance of adhering to the doxycycline regimen for cellulitis management. For his anemia, we agreed upon continued monitoring, emphasizing potential gastroenterology assessments if warranted. We reviewed the restrictions faced with starting a GLP-1 agonist due to insurance issues and reinforced diet modification efforts to mitigate obesity risks. I informed him to report any changes or concerns through the medical portal and assured him of interdisciplinary support from specialists, including upcoming monitoring and evaluations. Follow-up with me and other specialists was agreed upon to ensure detailed and holistic care. Patient Instructions - Continue taking doxycycline as prescribed. - Take iron supplements and omeprazole as directed. - Follow prescribed dietary changes to aid weight loss. - Continue with VNA services for vitals and leg wrap care. - Engage actively with physical therapy to improve mobility. - Monitor hemoglobin and hematocrit levels as advised. - Report any new symptoms or concerns through the patient portal. - Keep scheduled appointments with specialists and follow-up next month. TCM TCM Information Date of Discharge 04/14/24 Discharged From [facility] Interactive Contact Date (Reference documentation from this date) 04/15/24 [facility] Medical History Sepsis COPD (chronic obstructive pulmonary disease) Acute respiratory failure due to COVID-19 Community acquired pneumonia Viral sepsis Fatigue Acute on chronic diastolic CHF (congestive heart failure) COVID Morbid obesity Paroxysmal atrial fibrillation Congestive heart failure Testicular swelling Osteoarthritis of right knee Melanoma History of cardioversion Hereditary lymphedema Venous insufficiency Morbid obesity Lymphedema COPD (chronic obstructive pulmonary disease) Sensory neuropathy COVID-19 Respiratory failure with hypoxia Restrictive lung disease JEFFRY on CPAP MATUTE (dyspnea on exertion) Chronic cystitis Bladder outlet obstruction Restless leg syndrome Traumatic complete tear of right rotator cuff Injury of right rotator cuff History of diverticulitis History of umbilical hernia Surgical History Hx of colonoscopy History of appendectomy History of arthroscopy of left knee Family History Father Arthritis Diabetes Mother Arthritis Kidney stones Family/Other Arthritis Sister No problems noted. Sister No problems noted. Son No problems noted. Social History (Reviewed 04/21/24 @ 08:25 by Diego Augustine [facility]) Household Members: Spouse Household Members Other:: Housing: Condominium Do you presently have visiting nurse or other home services: Yes Unable to assess alcohol history related to: Unknown Alcohol intake: current Alcohol intake frequency: holidays/special occasions only Alcohol type: beer Comment: Refused bed alarm due to alarm sensitivity when changing positions. 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 1. Little interest or pleasure in doing things: several days 2. Feeling down, depressed, or hopeless: several days 3. Trouble falling or staying asleep, or sleeping too much: several days 4. Feeling tired or having little energy: more than half the days 5. Poor appetite or overeating: not at all 6. Feeling bad about yourself - or that you are a failure or have let yourself or your family down: several days 7. Trouble concentrating on things, such as reading the newspaper or watching television: not at all 8. Moving or speaking so slowly that other people could have noticed. Or the opposite - being so fidgety or restless that you have been moving around a lot more than usual: not at all 9. Thoughts that you would be better off or of hurting yourself in some way: not at all Total score: 6 Depression Screening Interpretation: Negative Depression Screening Done: Yes 49904 - PHQ-9 Billing: Yes Source: Developed by Drs. Marc Victoria, Karen Nguyen, Tristan Dominguez and colleagues, with an educational juan from [employer]. Thrive Questionnaire Date Thrive assessed: 04/12/24 AUDIT C Alcohol Use Questionnaire (AUDIT-C) 1. How often do you have a drink containing alcohol?: 4 or more times a week 2. How many drinks containing alcohol do you have on a typical day when you are drinking?: 1 or 2 3. How often do you have six or more drinks on one occasion?: Less than monthly Total Score: 5 Score Reviewed/Action Taken: Yes KIRA-7 AMB Questionnaire KIRA-7 Date KIRA - 7 assessed: 04/21/24 Feeling nervous, anxious, or on edge: 0 = Not at all Not being able to stop or control worryin = Not at all Worrying too much about different things: 0 = Not at all Trouble relaxin = Not at all Being so restless that it is hard to sit still: 0 = Not at all Becoming easily annoyed or irritable: 0 = Not at all Feeling afraid as if something awful might happen: 0 = Not at all Total KIRA-7 score (0-4 normal; 5-9 mild; 10-14 moderate; 15-21 severe): 0 Source: Developed by Drs. Marc Victoria, Karen Nguyen, Tristan Dominguez and colleagues, with an educational juan from [employer]. KIRA-7 Assessment Billing KIRA-7 Assessment Tool: KIRA-7 Assessment 13386 Physical exam (Primary Care) Tobacco/Smoking Status: Tobacco use Status Tobacco use date assessed 04/21/24 04/21/24 08:01 Patient Tobacco Use Status Former Tobacco user 04/21/24 07:59 Tobacco use type Cigarette 04/21/24 07:59 e-Cigarette/Vaping Use Never Used 04/21/24 07:59 PHQ-9: PHQ-9 Score PHQ-9: Total score 6 04/21/24 08:01 Depression Screening Interpretation: Negative Thrive Assessment: Date of Thrive Assessment Date Thrive assessed 04/12/24 04/21/24 07:59 Telehealth Telehealth Telehealth Platform: Telephone Location of provider rendering services: practice address Location of patient: address on file Patient Identification confirmed using: Name, : Yes Telehealth method: voice only Patient verbally consented to treatment: Yes Patient verbally consented to billing insurance company: Yes Patient informed of any privacy concerns related to visit: Yes Minutes spent on Phone/Video with Pt.: 15 Coding Level of Care Code Tele Est Pt Level 3 (22695) Diagnoses Anemia D64.9 Sepsis A41.9 Cellulitis of both lower extremities L03.115; L03.116 Additional Codes KIRA-7 Assessment Billing - KIRA-7 Assessment Tool: KIRA-7 Assessment 62542 ([id number]) PHQ-9 - 17670 - PHQ-9 Billing: Yes ([id number]) Assessment & Plan Assessment & Plan (1) Anemia: Code(s): D64.9 - Anemia, unspecified Category: Medical (2) Sepsis: Code(s): A41.9 - Sepsis, unspecified organism Category: Medical Plan: . (3) Cellulitis of both lower extremities: Code(s): L03.115 - Cellulitis of right lower limb; L03.116 - Cellulitis of left lower limb Category: Medical Plan . Medications: New zolpidem ER 12.5 mg PO BEDTIME 30 tabs 1RF 30 days
--- OUTSIDE RECORDS SUMMARY | 2024-04-21 08:13 | XMS_ITS ---
Author Organization [facility] Address [address] [place] [address] Care Team Providers Care Reeling And Tubing Machine Operator Name Role Phone Diego Gallagher Primary Care Provider Unav ailable Nancy Hardy Unavailable [phone] Encounters Encounter Location Date Provider Diagnosis [facility] [address] [place] [address] 04/13/2024 Nancy Hardy Plan Of Treatment No Information Progress Notes * Dinh BUCKLEY RDOB:[birth year] (69 yo M)Acc No.[id number]:04/13/2024 Progress Note Patient:?Dinh BUCKLEY Provider:?Nancy Hardy DPM :1955???Age:69 Y???Sex:Male Raj e:04/13/2024 Address:[address] [place] [address] [id number] Pcp:MARU Goldstein Subjective: * Chief Complaints: * ??? * Medical History:? Objective: * Vitals:? Assessment: Plan: * Treatment: * Images: * The named appointment provid er may or may not be the originator of this progress note, and it is not deemed complete until electronically signed by the appointment provider. Sign off status: Pending * Provider:?Nancy Hardy DPM Date:?02/ Generated for Katlin ramirez/Cece/Jemima on:?04/21/2024 08:13 AM EST
--- OUTSIDE RECORDS SUMMARY | 2024-04-21 08:13 | XMS_ITS | Encounter Summary ---
Author Organization [facility] Address [address] [place] [address] Care Team Providers Care Financial Planning Analyst Name Role Phone Venus Belcher MD Primary Care Provider + Encounter Details Date Type Department Care Team (Late st Contact Info) Description 04/06/2024 Lab Requisition [facility] - Main Lab [address] [place] [address] Venus Belcher MD [address] [facility] 1 [place], [place] [phone] Cellulitis, unspecified Social History Tobacco Use Types [...] PM EST [facility] RBC 3.30(L) 4.50 - 5.50 M/mcL LAB HEMETOLOGY METHOD 04/06/2024 3:24 PM EST [facility] Hemoglobin 10.9(L) 13.5 - 17.5 g/dL LAB HEMETOLOGY METHOD 04/06/2024 3:24 PM EST [facility] Hematocrit 32.9(L) 42.0 - 54.0 % LAB HEMETOLOGY METHOD 04/06/2024 3:24 PM [facility] MCV 98.5(H) 79.0 - 98.0 FL LAB HEMETOLOGY METHOD 04/06/2024 3:24 PM [facility] MCH 32.6(H) 27.0 - 32.0 pcg LAB HEMETOLOGY METHOD 04/06/2024 3:24 PM EST [facility] MCHC 33.1 32.0 - 37.0 g/dL LAB HEMETOLOGY METHOD 04/06/2024 3:24 PM [facility] RDW 13.9 11.0 - 15.0 % LAB HEMETOLOGY METHOD 04/06/2024 3:24 PM [facility] Platelets 476(H) 130 - 400 K/mcL LAB HEMETOLOGY METHOD 04/06/2024 3:24 PM EST [facility] MPV 9.8 7.0 - 11.0 FL LAB HEMETOLOGY METHOD 04/06/2024 3:24 PM EST [facility] NRBC 0.0 <1.0 % LAB HEMETOLOGY METHOD 04/06/2024 3:24 PM [facility] NRBC Absolute 0.00 <0.10 K/mcL LAB HEMETOLOGY METHOD 04/06/2024 3:24 PM [facility] Blood Venous blood specimen / Unknown Venipuncture / Unknown 04/06/2024 1:21 PM EST 04/06/2024 2:57 PM EST us Venus Belcher MD LAB BLOOD ORDERABLES Fin al Result [facility] [address] [place] [address], documented in this encounter Visit Diagnoses Diagnosis Cellulitis, unspecified documented in this encounter Care Teams Financial Planning Analyst Relationship Specialty Start Date End Date Venus Belcher MD [address] [address] PCP - General Family Medicine 04/06/24 documented as of this encounter
--- OUTSIDE RECORDS SUMMARY | 2024-04-21 08:13 | XMS_ITS | Encounter Summary ---
Author Organization [facility] Address [address] [place] [address] Care Team Providers Care Supervisor Airplane Flight Attendant Name Role Phone Venus Belcher MD Primary Care Provider + Encounter Details Date Type Department Care Team (Late st Contact Info) Description 04/18/2024 Lab Requisition [facility] - Main Lab [address] [facility] [place] [address] Venus Belcher MD [address] [address] Cellulitis, unspecified Social History Tobacco Use Types [...] unspecified documented in this encounter Care Teams Supervisor Airplane Flight Attendant Relationship Specialty Start Date End Date Venus Belcher MD [address] [place] [address] [phone] PCP - General Family Medicine 04/06/24 documented as of this encounter
--- OUTSIDE RECORDS SUMMARY | 2024-04-21 08:13 | XMS_ITS | Encounter Summary ---
Author Organization [facility] Address [address] [place] [address] Care Team Providers Care Data Review Specialist Name Role Phone Venus Belcher MD Primary Care Provider + Encounter Details Date Type Department Care Team (Late st Contact Info) Description 04/13/2024 Lab Requisition [facility] - Main Lab [address] [facility] [address] Venus Belcher MD [address] [address] Cellulitis, unspecified Social History Tobacco Use Types [...] documented in this encounter Care Teams Data Review Specialist Relationship Specialty Start Date End Date Venus Belcher MD [address] [place] [address] [phone] PCP - General Family Medicine 04/06/24 documented as of this encounter
--- OUTSIDE RECORDS SUMMARY | 2024-04-21 08:13 | XMS_ITS | Encounter Summary ---
Author Organization [facility] Address [address] [place] [address] Care Team Providers Care Server Administrator Name Role Phone Venus Belcher MD Primary Care Provider + Encounter Details Date Type Department Care Team (Late st Contact Info) Description 04/06/2024 Lab Requisition [facility] - Main Lab [address] [place] [address] Venus Belcher MD 819 [facility] 1 [place], [place] [phone] Cellulitis, unspecified Social History Tobacco Use Types [...] LAB CHEMISTRY METHOD 04/06/2024 11:[address] [facility] Potassium 4.5 3.5 - 5.5 mmol/L LAB CHEMISTRY METHOD 04/06/2024 11:[address] [facility] Comment:Hemolysis present Chloride 94(L) 96 - 110 mmol/L LAB CHEMISTRY METHOD 04/06/2024 11:35 AM [facility] CO2 23 21 - 32 mmol/L LAB CHEMISTRY METHOD 04/06/2024 11:35 AM [facility] Anion Gap 12(H) 3 - 11 LAB CHEMISTRY METHOD 04/06/2024 11:35 AM [facility] Glucose 112(H) 70 - 100 mg/dL LAB CHEMISTRY METHOD 04/06/2024 11:35 AM [facility] BUN 12 5 - 25 mg/dL LAB CHEMISTRY METHOD 04/06/2024 11:35 AM [facility] Creatinine 1.03 0.70 - 1.30 mg/dL LAB CHEMISTRY METHOD 04/06/2024 11:35 AM [facility] eGFR 80 >=60 mL/min/1. 73m2 LAB CHEMISTRY METHOD 04/06/2024 11:35 AM [facility] Comment:Calculation based on the??Chronic Kidney Disease Epidemiology Collaboration (CKD-EPI) equation refit??without adjustment for race. BUN/Creatinine Ratio 11.7 LAB CHEMISTRY METHOD 04/06/2024 11:35 AM [facility] Calcium 8.9 8.5 - 10.5 mg/dL LAB CHEMISTRY METHOD 04/06/2024 11:35 AM [facility] AST (SGOT) 42 10 - 42 unit/L LAB CHEMISTRY METHOD 04/06/2024 11:35 AM [facility] Comment:Hemolysis present ALT (SGPT) 30 10 - 60 unit/L LAB CHEMISTRY METHOD 04/06/2024 11:35 AM [facility] Alkaline Phosphatase 75 42 - 121 unit/L LAB CHEMISTRY METHOD 04/06/2024 11:35 AM [facility] Total Protein 6.8 6.0 - 8.0 g/dL LAB CHEMISTRY METHOD 04/06/2024 11:35 AM [facility] Albumin 2.1(L) 3.2 - 5.0 g/dL LAB CHEMISTRY METHOD 04/06/2024 11:35 AM [facility] Total Bilirubin 1.3 0.0 - 1.4 mg/dL LAB CHEMISTRY METHOD 04/06/2024 11:[address] [facility] Blood Venous blood specimen / Unknown Venipuncture / Unknown 04/06/2024 9:00 AM EST 04/06/2024 9:48 AM EST us Venus Belcher MD LAB BLOOD ORDERABLES Fin al Result [facility] [address] [place] [address], documented in this encounter Visit Diagnoses Diagnosis Cellulitis, unspecified documented in this encounter Care Teams Server Administrator Relationship Specialty Start Date End Date Venus Belcher MD [address] [place] [phone] PCP - General Family Medicine 04/06/24 documented as of this encounter
--- OUTSIDE RECORDS SUMMARY | 2024-04-21 08:13 | XMS_ITS | Clinical Summary ---
Author Organization [address] Address [address] [place] [address] Phone Care Team Providers Care Global Product Manager Name Role Phone Venus Belcher MD Primary Care Provider + Encounters Date Type Department Care Team Description 04/18/2024 Lab Requisition [facility] [address] [place] [address] Venus Belcher MD Cellulitis, unspecified 04/13/2024 Lab Requisition [facility] [address] [place] [phone] Venus Belcher MD Cellulitis, unspecified 04/06/2024 Lab Requisition [facility] [address] [place] [phone] Venus Belcher MD Cellulitis, unspecified 04/06/2024 Lab Requisition [facility] [address] [place] [phone] Venus Belcher MD Cellulitis, unspecified from Last [...] PM EST) WBC 15.1(H) 4.8 - 10.8 K/[facility] LAB HEMETOLOGY METHOD 04/06/2024 3:24 PM EST [facility] RBC 3.30(L) 4.50 - 5.50 M/[facility] LAB HEMETOLOGY METHOD 04/06/2024 3:24 PM [facility] Hemoglobin 10.9(L) 13.5 - 17.5 g/dL LAB HEMETOLOGY METHOD 04/06/2024 3:24 PM [facility] Hematocrit 32.9(L) 42.0 - 54.0 % LAB HEMETOLOGY METHOD 04/06/2024 3:24 PM [facility] MCV 98.5(H) 79.0 - 98.0 FL LAB HEMETOLOGY METHOD 04/06/2024 3:24 PM [facility] MCH 32.6(H) 27.0 - 32.0 pcg LAB HEMETOLOGY METHOD 04/06/2024 3:24 PM [facility] MCHC 33.1 32.0 - 37.0 g/dL LAB HEMETOLOGY METHOD 04/06/2024 3:24 PM [facility] RDW 13.9 11.0 - 15.0 % LAB HEMETOLOGY METHOD 04/06/2024 3:24 PM [facility] Platelets 476(H) 130 - 400 K/mcL LAB HEMETOLOGY METHOD 04/06/2024 3:24 PM [facility] MPV 9.8 7.0 - 11.0 FL LAB HEMETOLOGY METHOD 04/06/2024 3:24 PM [facility] NRBC 0.0 <1.0 % LAB HEMETOLOGY METHOD 04/06/2024 3:24 PM [facility] NRBC Absolute 0.00 <0.10 K/mcL LAB HEMETOLOGY METHOD 04/06/2024 3:24 PM [facility] Blood Venous blood specimen / Unknown Venipuncture / Unknown 04/06/2024 1:21 PM EST 04/06/2024 2:57 PM EST Venus Belcher MD LAB BLOOD ORDERABLES Fin al Result [facility] [address] [place] [address], * (ABNORMAL) Comprehensive metabolic panel (04/06/2024 9:00 AM EST) Sodium 129(L) 133 - 145 mmol/L LAB CHEMISTRY METHOD 04/06/2024 11:35 AM [facility] Potassium 4.5 3.5 - 5.5 mmol/L LAB CHEMISTRY METHOD 04/06/2024 11:35 AM [facility] Comment:Hemolysis present Chloride 94(L) 96 [...] 04/06/2024 11:35 AM [facility] Blood Venous blood specimen / Unknown Venipuncture / Unknown 04/06/2024 9:00 AM EST 04/06/2024 9:48 AM EST Venus Belcher MD LAB BLOOD ORDERABLES Fin al Result [facility] [address] [place] [address], from Last 3 Months Insurance [facility] Advance Directives Documents on File Type Date Recorded Patient Carpenter Form Expl anation Health Care Decision (hx) 04/17/2016 AD [place] DIRECTIVE Health Care Decision (hx) 04/17/2016 AD [place] DIRECTIVE Health Care Decision (hx) 04/17/2016 AD [place] DIRECTIVE Health Care Decision (hx) 04/17/2016 AD [place] DIRECTIVE Care Teams Global Product Manager Relationship Specialty Start Date End Date Venus Belcher MD [address] [place] [address] PCP - General Family Medicine 04/06/24
--- OUTSIDE RECORDS SUMMARY | 2024-04-21 08:13 | XMS_ITS ---
Author Organization [facility] Address [address] [facility] [place] [address] Care Team Providers Care Outlet Manager Name Role Phone Diego Gallagher Primary Care Provider Unav ailable MohamudguillermoNancy Unavailable [phone] Medications Medication SIG (Take, Route, Frequency, Duration) [...] Active Encounters Encounter Location Date Provider Diagnosis [facility] [place] [address] [place] [address] 03/24/2024 Nancy Hardy Plan Of Treatment No Information Progress Notes * Dinh BUCKLEY RDOB:[birth year] (69 yo M)Acc No.[id number]:03/24/2024 Progress Note Patient:?Dinh BUCKLEY Provider:?Nancy Hardy DPM :1955???Age:69 Y???Sex:Male Raj e:03/24/2024 Address:[address] [place], [place] [id number] Pcp:MARU Goldstein Subjective: * Chief Complaints: * [...] Hardy DPM Date:?06/2024 Generated for Katlin ramirez/Cece/Jemima on:?04/21/2024 08:13 AM EST
--- OUTSIDE RECORDS SUMMARY | 2024-04-21 08:13 | XMS_ITS ---
Author Organization [facility] Address [address] [place] [address] Care Team Providers Care Photolithographer Name Role Phone Diego Gallagher Primary Care Provider Unav ailable Nancy Hardy Unavailable [phone] REASON FOR VISIT cx appt Encounters Encounter Location Date Provider Diagnosis [facility] [address] [place] [address] 04/09/2024 Nancy Hardy Plan Of Treatment No Information Progress Notes * Dinh BUCKLEY RDOB:[birth year] (69 yo M)Acc No.[id number]:04/09/2024 Patient:?Dinh BUCKLEY :1955???Age:69 Y???Sex:Male Address:[address] [place], [place] [address], [address] * true * Date:? Generated for Printi ng/Faraizag/eTransmitting on:?04/21/2024 08:13 AM EST
--- OUTSIDE RECORDS SUMMARY | 2024-04-21 08:14 | XMS_ITS | Patient Health Record ---
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) Active confirmed Problem Mononeuropathy of lower limb (545519052) Neuritis of right foot (G57.91) Active confirmed Problem 04094213 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 Problem Atherosclerosis of lytton artery of both lower extremities, with unspecified presence of clinical manifestation (I70.203) Active confirmed Problem [id number] Atherosclerosi s of artery of both lower extremities (I70.203) Active confirmed Problem [id number] Neuropathic ul cer of right foot with fat layer exposed (L97.512) Active confirmed Vital Signs Blood pressure diastolic 70 mm Hg 01/09/2024 Height 6ft 4in in 01/09/2024 Blood pressure systolic 132 mm Hg 01/09/2024 Weight 425 lbs 01/09/2024 BMI 51.73 kg/m2 01/09/2024 Encounters Encounter Location Date Provider Diagnosis [facility] [place] [address] [place] [address] 06/18/2023 Nancy Perica Atherosclerosis of lytton artery of both lower extremities, with unspecified presence of clinical manifestation I70.203 ; Neuropathy G62.9 ; Tinea unguium B35.1 ; Pain in right toe(s) M79.674 and Pain in left toe(s) M79.675 [facility] [address] [address] 01/09/2024 Nancy Hardy Neuropathy G62.9 ; Tinea unguium B35.1 ; Atherosclerosis of lytton artery of both lower extremities, with unspecified presence of clinical manifestation I70.203 ; Pain in right toe(s) M79.674 and Pain in left toe(s) M79.675 [facility] [address] 10/27/2023 Nancy Hardy [address] [address] 03/22/2024 Nancy Hardy [address] [address] 04/09/2024 Nancy Hardy Assessments Encounter Date Diagnosis (ICD Code) Assessment Notes Treatment Notes Treatment Clinical Notes Section Notes 06/18/2023 Atherosclerosis of lytton artery of both lower extremities, with unspecified presence of clinical manifestation (ICD-10 - I70.203) 01/09/2024 Tinea unguium (ICD-10 - B35.1) 01/09/2024 Neuropathy (ICD-10 - G62.9) 01/09/2024 Atherosclerosis of lytton artery of both lower extremities, with unspecified [...] Date Coverage End Date Medicare National Govt Wow! Stuff [facility] [address] [place] [address] [id number] Dinh Craven Self - patient is the insured [employer] [address] [place] [address] [id number] Dinh Craven Self - patient is the insured Medical (General) History Medical History History ICD Code Arthritis asthma Back,Hip,and Knee pain Lung disease Neuropathy Poor circulation thyroid Chicken pox Joint implants/screws A fib Surgical History Surgery Date(Month/Year) knee replacement 2013 appendectomy 2015 rotator cuff 2019 Hospitalization History Reason Date(Month/Year) [facility] [place]- 10 days - uti [facility]- chest pains, a fib
== END 2024-04-21 08:33 | disposition home or self-care (01) ==
LOC: HO.HMCC 08:04
PROVIDERS: PCP Nurse Practitioner Family; Visit Provider Nurse Practitioner Family
DX: D64.9 Anemia, unspecified (principal); A41.9 Sepsis, unspecified organism; L03.115 Cellulitis of right lower limb; L03.116 Cellulitis of left lower limb

== ENCOUNTER → 2024-04-21 08:04 | Outpatient (BNVA) | payer MEDICARE, SELFPAY | PROVIDERS: PCP Nurse Practitioner Family; Visit Provider Nurse Practitioner Family | DX: D64.9 Anemia, unspecified (principal); A41.9 Sepsis, unspecified organism; L03.115 Cellulitis of right lower limb; L03.116 Cellulitis of left lower limb | CPT/HCPCS: 96127; 99495 ==

== ENCOUNTER 2024-04-29 13:39 | Outpatient (AMB) | payer MEDICARE, SELFPAY ==
--- NOTE | 2024-04-29 14:18 | MHC.OFFVIS ---
Vital Signs 04/29/24 14:19 Height 6 ft 4 in Weight 398 lb BMI 48.4 BP 124/68 Blood Pressure Location Lt brachial Position Sitting Pulse 93 Pulse Source Pulse Oximeter Pulse Oximetry (%) 95 Oxygen Delivery Method Room Air Intake Visit Reasons: copd/upper resp failure Intake Note: pt is here for follow up and states he is feeling good breathing hahn, and using cpap everynight. Broach Operator Required: No Allergies No Known Allergies [No Known Allergies*] Allergy (Verified 04/29/24 15:08) Medication List - Last Reconciled 04/29/24 by Savanna Andujar MD acetaminophen 975 mg PO Q4H PRN acidophilus-pectin, citrus 100 million cell-10 mg 1 cap PO DAILY albuterol sulfate 90 mcg/actuation 2 puffs PO Q6H PRN amiodarone 200 mg PO DAILY 90 days ammonium lactate 12% 1 appl topical BEDTIME Anoro Ellipta 62.5-25 mcg/actuation (umeclidinium-vilanterol) 1 inh PO DAILY NS ascorbic acid (vitamin C) 1 g PO DAILY 90 days atorvastatin 80 mg PO BEDTIME 90 days bisacodyl 10 mg NH DAILY PRN bumetanide 2 mg (2 x 1 mg) PO DAILY clotrimazole 1% 1 appl See Protocol topical BID docusate sodium (Colace) 100 mg PO BID doxazosin 8 mg PO BEDTIME 90 days doxycycline monohydrate 100 mg PO BID duloxetine 60 mg PO DAILY ferrous sulfate 324 mg PO DAILY finasteride 5 mg PO DAILY 90 days hydrocortisone 1% 1 appl See Protocol topical DAILY ipratropium-albuterol 0.5 mg-3 mg(2.5 mg base)/3 mL 3 mL inhalation Q6H PRN 30 days magnesium hydroxide (Milk of Magnesia) 30 mL PO DAILY PRN methenamine hippurate 1 g PO DAILY 90 days methocarbamol 500 mg PO BEDTIME omeprazole 20 mg PO DAILY ondansetron HCl 4 mg PO Q8H PRN oxybutynin chloride ER 10 mg PO DAILY@2000 oxycodone 10 mg (2 x 5 mg) PO Q4H PRN polyethylene glycol 3350 17 grams PO DAILY [Powered bariatric recliner As directed] pregabalin 150 mg PO TID 90 days ropinirole 2 mg PO TID sodium phosphates 19-7 gram/118 mL (Fleet Enema) 118 mL NH DAILY PRN spironolactone 25 mg PO DAILY walker daily use (rolling sitting walker-bariatric size needed) zolpidem 10 mg PO BEDTIME PRN Do you need a note to return to daycare/school/sports/work: No HPI HPI copd/upper resp failure: Details: Mr. Craven , 62 years old gentleman with super morbid obesity, obstructive sleep apnea/ hypoventilation syndrome, COPD, restrictive lung disease, congestive heart failure with stasis edema of the legs. Chronic respiratory failure. Comes after 3 months for follow-up. He is very happy today because he is losing weight, able to walk around more than before, sleeps good with CPAP. And feels more energetic. He is losing weight with healthy eating, and small portions. Also not retaining much fluid. Breathing has been relatively stable and he hardly needs to use the rescue inhaler or DuoNeb updrafts. He does use Anoro Ellipta once a day. He uses oxygen on any physical exertion and also at night along with the CPAP . He is getting physical therapy at home, and not going for pulmonary rehab. [facility] Medical History (Updated 04/29/24 @ 15:21 by Savanna Andujar MD) JEFFRY on CPAP Anemia Chronic diastolic heart failure Sepsis COPD (chronic obstructive pulmonary disease) Acute respiratory failure due to COVID-19 Community acquired pneumonia Viral sepsis Fatigue Acute on chronic diastolic CHF (congestive heart failure) COVID Morbid obesity Paroxysmal atrial fibrillation Congestive heart failure Testicular swelling Osteoarthritis of right knee Melanoma History of cardioversion Hereditary lymphedema Venous insufficiency Morbid obesity Lymphedema COPD (chronic obstructive pulmonary disease) Sensory neuropathy COVID-19 Respiratory failure with hypoxia Restrictive lung disease MATUTE (dyspnea on exertion) Chronic cystitis Bladder outlet obstruction Restless leg syndrome Traumatic complete tear of right rotator cuff Injury of right rotator cuff History of diverticulitis History of umbilical hernia Surgical History Hx of colonoscopy History of appendectomy History of arthroscopy of left knee Family History Father Arthritis Diabetes Mother Arthritis Kidney stones Family/Other Arthritis Sister No problems noted. Sister No problems noted. Son No problems noted. Social History Household Members: Spouse Household Members Other:: Housing: Condominium Do you presently have visiting nurse or other home services: Yes Unable to assess alcohol history related to: Unknown Alcohol intake: current Alcohol intake frequency: holidays/special occasions only Alcohol type: beer Comment: Refused bed alarm due to alarm sensitivity when changing positions. 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 Cognitive needs: No Hearing needs: No Vision needs: No Review of Systems Const All systems reviewed & are unremarkable except as noted in HPI and below Eyes Reports no additional complaints ENT Reports no additional complaints Card Denies chest pain, Denies irregular heart rhythm and Denies leg edema Resp Reports as per HPI GI Reports no additional complaints Reports no additional complaints Musc Reports back pain Skin/Breast Reports system reviewed and no additional complaints, except as documented Neuro Reports no additional complaints Psych Reports no additional complaints Physical Exam Vital Signs: Last Vital Signs Pulse 93 04/29/24 14:19 BP 124/68 04/29/24 14:19 Pulse Ox 95 04/29/24 14:19 Oxygen Delivery Method Room Air 04/29/24 14:19 BMI result Body Mass Index 48.4 Looks healthier as he has lost 34 lb of weight Const Other: wearing oxygen General: cooperative, comfortable (but SOB ) and no acute distress Orientation/consciousness: patient oriented x3 HEENT Head: Yes normal to inspection General nose exam: No nasal polyps present and No nasal discharge present Face and sinus: Yes sinuses nontender Mouth: oropharynx normal Throat: Yes posterior oropharynx normal Eyes General: appearance normal, both eyes and all related structures Neck Neck: Yes normal visual inspection, Yes no lymphadenopathy, Yes trachea midline and Yes no JVD Thyroid: Thyroid normal Chest Chest palpation & inspection: normal inspection of the chest, normal palpation of entire chest wall and no tenderness Resp Other: Percussion note not perceptible because of thick chest wall. Breath sounds are distant and especially decreased over the basilar areas. No wheezes or crepitations are heard. Effort & Inspection: normal respiratory effort and able to speak in complete sentences Auscultation: clear to auscultation bilaterally Cardio Palpation: PMI not normal (Not palpable) Rate: regular rate Rhythm: abnormal rhythm and other (Atrial fib) Heart sounds: no gallops and no murmurs GI Palpation (GI): Soft to palpation, nontender, No hepatosplenomegaly present, no masses and Other GI palpation findings present (Grossly obese and protuberant) Auscultation: normal bowel sounds Back/Spine/Pelvis Cervical Spine: normal cervical lordosis and cervical ROM normal Thoracic/Lumbar Spine: thoracic and lumbar spine normal to inspection, thoraco-lumbar ROM normal and paraspinal muscle tenderness (left trapezius/rhomboid tenderness and tautness of musculature to palpation) Skin General skin exam: no rashes or lesions noted Neuro General: patient oriented x3 and Normal light touch and pain sensation Cranial nerves: Yes CN's II-XII intact bilaterally Extrem General: Yes edema (Has chronic stasis edema /lymphedema both legs which is currently increased) and Yes venous stasis dermatitis Psych Appearance: grossly normal Mental Status: mental status grossly normal Speech and movement: Normal speech and movement present Results Reviewed Results Reviewed: Compliance report for the last 30 nights is reviewed. He has used 27/30 nights, 90% of the time. Average use it per night 5 hours 22 minutes. Pressure setting 12 cm. There is only minimal air leakage. The residual AHI only 0.7 Assessment & Plan Assessment & Plan (1) Morbid obesity: Comment: Patient remains morbidly obese. difficult for him to lose weight. Since his last visit, he has succeeded in losing about 34 lb of weight. This is due to better fluid, controlled and healthy eating. Code(s): E66.01 - Morbid (severe) obesity due to excess calories Category: Medical Plan: Patient is commended for losing weight. Advised to continue on house the diet. And continue to do some exercises even in sitting position. (2) Restrictive lung disease: Comment: RESTRICTION IS MAINLY BECAUSE OF HIS MORBID OBESITY. Code(s): J98.4 - Other disorders of lung Category: Medical Plan: Continue losing weight Do deep breathing exercises with the incentive spirometer every 2 hours while awake. (3) COPD (chronic obstructive pulmonary disease): Comment: In addition to restrictive disorder patient has obstructive airway disorder, He is prone to have acute exacerbations. Seems to have a better controlled at this time. Code(s): J44.9 - Chronic obstructive pulmonary disease, unspecified Category: Medical Plan: Continue to use Anoro Ellipta 1 inhalation daily. DuoNeb updraft Q 4-6 hours p.r.n. ( he is using it only once or twice a day (4) Respiratory failure with hypoxia: Comment: NOCTURNAL HYPOXEMIA , also hypoxemia with any physical activity. It is somewhat worse now and his O2 requirement has increased. Code(s): J96.91 - Respiratory failure, unspecified with hypoxia Category: Medical Plan: O2 2 L/minute to use along with the CPAP at night. And portable O2 2 L/minute with any physical work or when he goes outdoors (5) JEFFRY on CPAP: Comment: KNOWN TO HAVE OBSTRUCTIVE SLEEP APNEA. USES CPAP REGULARLY AND HAS BEEN VERY COMPLIANT AND BENEFITTING. Code(s): G47.33 - Obstructive sleep apnea (adult) (pediatric); Z99.89 - Dependence on other enabling machines and devices Category: Medical Plan: Advised to continue using the CPAP every night. If he does not use for enough hours at night he can make it up during the daytime Medications: Changed From Anoro Ellipta 62.5-25 mcg/actuation (umeclidinium-vilanterol) 1 inh PO DAILY 60 ea 3RF NS To Anoro Ellipta 62.5-25 mcg/actuation (umeclidinium-vilanterol) 1 inh PO DAILY 30 days 60 ea 3RF copd NS Coding Level of Care Code Est Pt Level 4 (96588) Diagnoses Morbid obesity E66.01 Restrictive lung disease J98.4 COPD (chronic obstructive pulmonary disease) J44.9 Respiratory failure with hypoxia J96.91 JEFFRY on CPAP G47.33; Z99.89
[2024-04-29 14:19] VITALS: BP 124/68; PULSE 93; O2SAT 95; BMI 48.4
--- OUTSIDE RECORDS SUMMARY | 2024-04-29 17:14 | XMS_ITS | Clinical Summary ---
Author Organization [address] Address [address] [place] [address] Phone Care Team Providers Care Hydrostatic Tester Name Role Phone Venus Belcher MD Primary Care Provider + Encounters Date Type Department Care Team Description 04/25/2024 Lab Requisition [facility] Lab [address] [place] [phone] Venus Belcher MD Cellulitis, unspecified 04/18/2024 Lab Requisition [facility] Lab [address] [place] [phone] Venus Belcher MD Cellulitis, unspecified 04/13/2024 Lab Requisition [facility] Lab [address] [place] [address] Venus Belcher MD Cellulitis, unspecified 04/06/2024 Lab Requisition [facility] Lab [address] [place] [phone] Venus Belcher MD Cellulitis, unspecified 04/06/2024 Lab Requisition [facility] Lab [address] [place] [phone] Venus Belcher MD Cellulitis, unspecified from Last [...] 01/20/2022 Falls Risk Assessment 2022 COVID-19 Vaccine (1 - 2023-2 5 [...] PM EST) WBC 15.1(H) 4.8 - 10.8 K/[facility] LAB HEMETOLOGY METHOD 04/06/2024 3:24 PM [facility] RBC 3.30(L) 4.50 - 5.50 M/mcL LAB HEMETOLOGY METHOD 04/06/2024 3:24 PM [facility] LAB Hemoglobin 10.9(L) 13.5 - 17.5 g/dL LAB HEMETOLOGY METHOD 04/06/2024 3:24 PM [facility] LAB Hematocrit 32.9(L) 42.0 - 54.0 % LAB HEMETOLOGY METHOD 04/06/2024 3:24 PM [facility] MCV 98.5(H) 79.0 - 98.0 FL LAB HEMETOLOGY METHOD 04/06/2024 3:24 PM [facility] LAB MCH 32.6(H) 27.0 - 32.0 pcg LAB HEMETOLOGY METHOD 04/06/2024 3:24 PM [facility] LAB MCHC 33.1 32.0 - 37.0 g/dL LAB HEMETOLOGY METHOD 04/06/2024 3:24 PM [facility] LAB RDW 13.9 11.0 - 15.0 % LAB HEMETOLOGY METHOD 04/06/2024 3:24 PM [facility] LAB Platelets 476(H) 130 - 400 K/mcL LAB HEMETOLOGY METHOD 04/06/2024 3:24 PM [facility] LAB MPV 9.8 7.0 - 11.0 FL LAB HEMETOLOGY METHOD 04/06/2024 3:24 PM [facility] LAB NRBC 0.0 <1.0 % LAB HEMETOLOGY METHOD 04/06/2024 3:24 PM [facility] LAB NRBC Absolute 0.00 <0.10 K/mcL LAB HEMETOLOGY METHOD 04/06/2024 3:24 PM [facility] Blood Venous blood specimen / Unknown Venipuncture / Unknown 04/06/2024 1:21 PM EST 04/06/2024 2:57 PM EST us Venus Belcher MD LAB BLOOD ORDERABLES Fin al Result [facility] [address] [place] [address], * (ABNORMAL) Comprehensive metabolic panel (04/06/2024 9:00 AM EST) Pathologist [facility] Sodium 129(L) 133 - 145 mmol/L LAB CHEMISTRY METHOD 04/06/2024 11:35 AM [facility] Potassium 4.5 3.5 - 5.5 mmol/L LAB CHEMISTRY METHOD 04/06/2024 11:35 AM [facility] LAB Comment:Hemolysis present Chloride 94(L) 96 - 110 mmol/L LAB CHEMISTRY METHOD 04/06/2024 11:35 AM [facility] CO2 23 21 - 32 mmol/L LAB CHEMISTRY METHOD 04/06/2024 11:35 AM [facility] Anion Gap 12(H) 3 - 11 LAB CHEMISTRY METHOD 04/06/2024 11:35 AM [facility] Glucose 112(H) 70 - 100 mg/dL LAB CHEMISTRY METHOD 04/06/2024 11:35 AM [facility] BUN 12 5 - 25 mg/dL LAB CHEMISTRY METHOD 04/06/2024 11:35 AM [facility] Creatinine 1.03 0.70 - 1.30 mg/dL LAB CHEMISTRY METHOD 04/06/2024 11:35 AM [facility] LAB eGFR 80 >=60 mL/min/1. 73m2 LAB CHEMISTRY METHOD 04/06/2024 11:35 AM [facility] LAB Comment:Calculation based on the??Chronic Kidney Disease Epidemiology Collaboration (CKD-EPI) equation refit??without adjustment for race. BUN/Creatinine Ratio 11.7 LAB CHEMISTRY METHOD 04/06/2024 11:35 AM [facility] Calcium 8.9 8.5 - 10.5 mg/dL LAB CHEMISTRY METHOD 04/06/2024 11:35 AM [facility] LAB AST (SGOT) 42 10 - 42 unit/L LAB CHEMISTRY METHOD 04/06/2024 11:35 AM [facility] LAB Comment:Hemolysis present ALT (SGPT) 30 10 - 60 unit/L LAB CHEMISTRY METHOD 04/06/2024 11:35 AM [facility] Alkaline Phosphatase 75 42 - 121 unit/L LAB CHEMISTRY METHOD 04/06/2024 11:35 AM [facility] Total Protein 6.8 6.0 - 8.0 g/dL LAB CHEMISTRY METHOD 04/06/2024 11:35 AM [facility] Albumin 2.1(L) 3.2 - 5.0 g/dL LAB CHEMISTRY METHOD 04/06/2024 11:35 AM [facility] Total Bilirubin 1.3 0.0 - 1.4 mg/dL LAB CHEMISTRY METHOD 04/06/2024 11:35 AM [facility] Blood Venous blood specimen / Unknown Venipuncture / Unknown 04/06/2024 9:00 AM EST 04/06/2024 9:48 AM EST us Venus Belcher MD LAB BLOOD ORDERABLES Fin al Result [facility] [address] [place] [address], from Last 3 Months Insurance [facility]ICARE 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
--- OUTSIDE RECORDS SUMMARY | 2024-04-29 17:14 | XMS_ITS ---
Author Organization [facility] Care Team Providers Care Blood Splatter Analyst Name Role Phone Franco Ayala Unavailable Unavailable Venus Belcher Unavailable Unavailable Lacey LADLE POURER, David Gottlieb Unavailable Unavailable Allergies and adverse reactions No Known Allergies Care Team Name Role Address Phone Organization Dates Venus Belcher PCP [address] [place] [address], [facility] (Office): : [facility] 04/05/2024 - present Franco Ayala Attending Physician ID, [facility] 04/05/2024 - present David Rahman LADLE POURER Attending Physician [address] [place] [address] (Office): [facility] 04/05/2024 - present Goals Section Description Status Target Date Dinh will attend programs 2x weekly and be open to room visits through next review date. Active 07/04/2024 Dinh will be free of s/sx of respiratory infections through review date. Active 07/04/2024 Dinh will display optimal breathing patterns daily through review date. Active 07/04/2024 The resident will be free fr om complications related to infection through the review date. Active 07/04/2024 The resident will be free of falls through the r eview date. Active 07/04/2024 The resident will improve cu rrent level of function in (SPECIFY ADLs) through the review date. Resident will be able to: (SPECIFY) Active 07/04/2024 The resident will remain alejandra e from discomfort, complications or s/sx related to gastro-intestinal alterations through review date. Active 07/04/2024 The resident's will have no complications r/t blisters, edema and fragile skin of the lower extremities due to lymphedema through the review date. Active 07/04/2024 Functional Status Code Name Recorded Time Value Entered By Chair/ozi-ih-kpcvv transfer 04/10/2024 Not assessed gcolon1 Eating 04/10/2024 Not assessed gcolon1 Lower body dressing 04/10/2024 Not assessed gcolon1 Lying to sitting on side of bed 04/10/2024 Not asses sed gcolon1 Oral hygiene 04/10/2024 Not assessed gcolon1 Personal hygiene 04/10/2024 Not assessed gcolon1 Roll left and right 04/10/2024 Not assessed gcolon1 Shower/bathe self 04/10/2024 Not assessed gcolon1 Sit to lying 04/10/2024 Not assessed gcolon1 Sit to stand 04/10/2024 Not assessed gcolon1 Toilet transfer 04/10/2024 Not assessed gcolon1 Toileting hygiene 04/10/2024 Not assessed gcolon1 Upper body dressing 04/10/2024 Not assessed gcolon1 Wheel 150 feet 04/10/2024 Not assessed gcolon1 Wheel 50 feet with two turns 04/10/2024 Not assessed gcolon1 Immunizations Immunization Status Vaccine Details Vaccine Code CodeSystem Date Notes PPSV23 completed pneumococcal polysaccharide vaccine, 23 valent 33 CVX created date: 04/05/2024 administere d date: 09/19/2015 Influenza-High Dose(Fluzone) completed created date: 04/05/2024 administere d date: 10/06/2023 PVC20 completed Pneumococcal conjugate vaccine 20-valent (PCV20), polysaccharide [id number] conjugate, adjuvant, preservative free 216 CVX created date: 04/05/2024 administere d date: 10/06/2023 Medications Section Medication Name Status Code CodeSystem Dose Route Frequency Admin Type Sig Text Start Date End Date Vitamin C Oral Tablet active 1000 mg Oral one time a day Routine Give 1000 mg by mouth one time a day for supple ment 2024 - Albuterol Sulfate HFA Inhalation Aerosol Solution 108 (90 Base) MCG/ACT active 331106 RXNORM 2 puff Inhalat ion as needed PRN 2 puff inhale orally every 6 hours as needed for sob or wheeze 2024 - Colace Oral Capsule 100 MG active 754809 6 RXNORM 100 mg Oral two times a day Routine Give 100 mg by mouth two times a day for consti pation 2024 - Methenamine Hippurate Oral Tablet 1 GM active 084879 RXNORM 1 tablet Oral one time a day Routine Give 1 tablet by mouth one time a day for preven tative 2024 - rOPINIRole HCl Oral Tablet 2 MG active 868367 RXNORM 2 mg Oral three times a day Routine Give 2 mg by mouth three times a day for spasms 2024 - Atorvastatin Calcium Oral Tablet 80 MG active 816946 RXNORM 80 mg Oral one time a day Routine Give 80 mg by mouth one time a day for choles terol contro l 2024 - Amiodarone HCl Oral Tablet 200 MG active 689960 RXNORM 200 mg Oral one time a day Routine Give 200 mg by mouth one time a day for Heart health 2024 - Lyrica Oral Capsule 150 MG active 659192 RXNORM 150 mg Oral three times a day Routine Give 150 mg by mouth three times a day for antico nvulsa nt 2024 - DULoxetine HCl Oral Capsule Delayed Release Sprinkle 60 MG active 629541 RXNORM 60 mg Oral one time a day Routine Give 60 mg by mouth one time a day for antide pressa nt 2024 - Ambien Oral Tablet 10 MG active 100288 RXNORM 10 mg Oral as needed PRN Give 10 mg by mouth every 24 hours as needed for insomn ia 2024 - Nystatin Mouth/Throat Suspension 655287 UNIT/ML complete d 854442 RXNORM 129916 unit Oral three times a day Routine Give 123662 unit by mouth three times a day for thrush until 2024 00:00 04/07 Anoro Ellipta Inhalation Aerosol Powder Breath Activated 62.5-25 MCG/ACT active 015625 4 RXNORM 1 inhala tion Inhalat ion one time a day Routine 1 inhala tion inhale orally one time a day for respir atory 2024 - Doxycycline Hyclate Oral Tablet 100 MG complete d 16490220 3 RXNORM 100 mg Oral two times a day Routine Give 100 mg by mouth two times a day for infect ion for 4 Days 04/10 Acetaminophen Oral Tablet active 975 mg Oral as needed PRN Give 975 mg by mouth every 4 hours as needed for pain 2024 - Spironolacton e Oral Tablet 25 MG active 480138 RXNORM 25 mg Oral one time a day Routine Give 25 mg by mouth one time a day for HTN 2024 - Ipratropium-A lbuterol Solution 0.5-2.5 (3) MG/3ML active 968281 2 RXNORM 3 ml Inhalat ion as needed PRN 3 ml inhale orally via nebuli zer every 6 hours as needed for sob or wheeze ANNALISA = Clear lung sounds A DV = Christianity itious D IMI = Dimini shed 2024 - MiraLax Oral Packet 17 GM active 937631 RXNORM 17 gram Oral in the morning Routine Give 17 gram by mouth in the mornin g for consti pation 2024 - Amoxicillin-P ot Clavulanate Oral Tablet 875-125 MG aborted 538598 RXNORM 1 tablet Oral two times a day Routine Give 1 tablet by mouth two times a day for infect ion for 4 Days 04/07 Ammonium Lactate External Cream 12 % aborted 825755 RXNORM n/a n/a Topical every day shift Routine Apply to legs topica lly every day shift for skin altera tion 04/07 Doxycycline Hyclate Oral Tablet 100 MG aborted 16490220 3 RXNORM 100 mg Oral two times a day Routine Give 100 mg by mouth two times a day for infect ion 04/05 Bumex Oral Tablet 2 MG active 906323 RXNORM 2 mg Oral one time a day Routine Give 2 mg by mouth one time a day for diuret ic 2024 - Doxazosin Mesylate Oral Tablet 8 MG active 563656 RXNORM 8 mg Oral one time a day Routine Give 8 mg by mouth one time a day for prosta te 2024 - Finasteride Oral Tablet 5 MG active 432612 RXNORM 5 mg Oral one time a day Routine Give 5 mg by mouth one time a day for prosta te 2024 - oxyBUTYnin Chloride ER Oral Tablet Extended Release 24 Hour 10 MG active 542156 RXNORM 10 mg Oral one time a day Routine Give 10 mg by mouth one time a day for bladde r spasms 2024 - oxyCODONE HCl Oral Tablet 5 MG active 909227 1 RXNORM 10 mg Oral as needed PRN Give 10 mg by mouth every 4 hours as needed for pain 2024 - Fleet Enema Enema 7-19 GM/118ML active 936022 RXNORM 1 dose Rectal as needed PRN Insert 1 dose rectal ly as needed for Consti pation (Step 3) as needed if no bowel moveme nt for 8 hours after bisaco dyl suppos itory. 2024 - Milk of Magnesia Suspension 400 MG/5ML active 198602 RXNORM 30 ml Oral as needed PRN Give 30 ml by mouth as needed for Consti pation (Step 1) As needed if no bowel moveme nt for three days. (Do not use for Hemodi alysis patien ts). 2024 - Bisacodyl Suppository 10 MG active 095725 RXNORM 1 suppos itory Rectal as needed PRN Insert 1 suppos itory rectal ly as needed for If no bowel moveme nt for 8 hours after Milk of Magnes ia 2024 - Zofran Oral Tablet 4 MG active 594766 RXNORM 4 mg Oral as needed PRN Give 4 mg by mouth every 8 hours as needed for nausea / vomitt ing 2024 - Ammonium Lactate External Cream 12 % active 299856 RXNORM n/a n/a Topical every evening shift Routine Apply to legs topica lly every evenin g shift for skin altera tion 2024 - cefTRIAXone Sodium Injection Solution Reconstituted 1 GM active 382442 1 RXNORM 1 gram Intrave nous in the evening Routine Use 1 gram intrav enousl y in the evenin g for Bilate ral cellul itis until 2024 23:59 04/11 Acidophilus Oral Capsule active 1 caplet Oral in the morning Routine Give 1 caplet by mouth in the mornin g for ABX TX 2024 - Probitrol Oral Capsule aborted 1 capsul e Oral in the morning Routine Give 1 capsul e by mouth in the mornin g for ABX TX 04/07 Normal Saline Flush Solution 0.9 % active 483957 6 RXNORM 10 ml Intrave nous every day and evening shift Routine Use 10 ml intrav enousl y every day and evenin g shift for IV Mainte nance No medica tion infusi on. To mainta in line for later infusi on. Flush every shift 2024 - Normal Saline Flush Solution 0.9 % active 766375 6 RXNORM 10 ml Intrave nous in the morning Routine Use 10 ml intrav enousl y in the mornin g for Cellul itis for 4 Days Flush IV infusi on line before medica tion infusi on. 04/12 cefTRIAXone Sodium Injection Solution Reconstituted 2 GM complete d 895130 6 RXNORM 2 gram Intrave nous one time only One Time Only Use 2 gram intrav enousl y one time only for Serina Cellit litis until 2024 23:59 04/08 cefTRIAXone Sodium Intravenous Solution Reconstituted 1 GM active 386469 RXNORM 1 gram Intrave nous in the evening Routine Use 1 gram intrav enousl y in the evenin g for serina cellul itis until 2024 23:59 04/15 Problems Problem # Description Date of onset Resolved Date Code CodeSystem Concern Status 1 CHRONIC ATRIAL FIBRILLATION, UNSPECIFIED 04/05/[address] active 2 CHRONIC OBSTRUCTIVE PULMONARY DISEASE, UNSPECIFIED 04/05/[address] active 3 DEPENDENCE ON OTHER ENABLING MACHINES AND DEVICES 04/05/[address] active 4 DEPENDENCE ON SUPPLEMENTAL OXYGEN 04/05/[address] active 5 DEPRESSION, UNSPECIFIED 04/05/[address] active 6 ESSENTIAL (PRIMARY) HYPERTENSION 04/05/[address] active 7 HISTORY OF FALLING 04/05/[address] active 8 INSOMNIA, UNSPECIFIED 04/05/[address] active 9 LYMPHEDEMA, NOT ELSEWHERE CLASSIFIED 04/05/[address] active 10 MORBID (SEVERE) OBESITY DUE TO EXCESS CALORIES 04/05/[address] active 11 MUSCLE WEAKNESS (GENERALIZED) 04/05/[address] active 12 OBSTRUCTIVE SLEEP APNEA (ADULT) (PEDIATRIC) 04/05/[address] active 13 OTHER ABNORMALITIES OF GAIT AND MOBILITY 04/05/[address] active 14 OVERACTIVE BLADDER 04/05/[address] T active 15 POLYNEUROPATHY, UNSPECIFIED 04/05/[address] active 16 RHEUMATOID ARTHRITIS WITHOUT RHEUMATOID FACTOR, UNSPECIFIED SITE 04/05/[address] active 17 UNSPECIFIED FALL, SUBSEQUENT ENCOUNTER 04/05/[address] active 18 VENOUS INSUFFICIENCY (CHRONIC) (PERIPHERAL) 04/05/[address] active 19 WEAKNESS 04/05/[address] active Reason for Referral No Reasons for Referral Entered Social History Social History Observation Description Start Date End Date Code Code System Current Smoking Status Tobacco smoking consumption unknown 855723066 SNOMED CT Sex Assigned At Male 1955 61410-4 [facility] Vital Signs Code Code System Vitals Name Values and Units Timing Information 59056-6 [facility] Pain Level Value=0.0 04/10/2024 9279-1 [facility] Respiratory Rate Value=18.0 Units=/m in 04/10/2024 8867-4 [facility] Heart rate Etbnh=839.0 Units=/min 04/10/2024 8462-4 [facility] Blood Pressure-Diastolic Value=70 Un its=mmHg 04/10/2024 8480-6 [facility] Blood Pressure-Systolic Hmqad=472 Un its=mmHg 04/10/2024 57682-2 [facility] O2 % BldC Oximetry Value=94.0 Units= % 04/10/2024 8310-5 [facility] Body Temperature Value=98.4 Units=?? F 04/09/2024 95890-3 [facility] Weight Wmfej=151.2 Units=Lbs 8302-2 [facility] Height Value=76.0 Units=Inches 04/05/2024
--- OUTSIDE RECORDS SUMMARY | 2024-04-29 17:14 | XMS_ITS | Encounter Summary ---
Author Organization [facility] Address [address] [place] [address] Care Team Providers Care Resident Care Director Name Role Phone Venus Belcher MD Primary Care Provider + Encounter Details Date Type Department Care Team (Late st Contact Info) Description 04/18/2024 Lab Requisition [facility] - Main Lab [address] [facility] [place] [address] Venus Belcher MD [address] [address] Cellulitis, unspecified Social History Tobacco Use Types [...] unspecified documented in this encounter Care Teams Resident Care Director Relationship Specialty Start Date End Date Venus Belcher MD [address] [phone] PCP - General Family Medicine 04/06/24 documented as of this encounter
--- OUTSIDE RECORDS SUMMARY | 2024-04-29 17:14 | XMS_ITS | Encounter Summary ---
Author Organization [facility] Address [address] [place] [address] Care Team Providers Care Operations Research Analyst Name Role Phone Venus Belcher MD Primary Care Provider + Encounter Details Date Type Department Care Team (Late st Contact Info) Description 04/06/2024 Lab Requisition [facility] - Main Lab [address] [place] [address] Venus Belcher MD 819 [facility] 1 [place], [place] [id number] Cellulitis, unspecified Social History Tobacco Use Types [...] LAB CHEMISTRY METHOD 04/06/2024 11:35 AM EST [facility] Potassium 4.5 3.5 - 5.5 mmol/L LAB CHEMISTRY METHOD 04/06/2024 11:35 AM EST [facility] Comment:Hemolysis present Chloride 94(L) 96 - 110 mmol/L LAB CHEMISTRY METHOD 04/06/2024 11:35 AM [facility] CO2 23 21 - 32 mmol/L LAB CHEMISTRY METHOD 04/06/2024 11:35 AM [facility] Anion Gap 12(H) 3 - 11 LAB CHEMISTRY METHOD 04/06/2024 11:35 AM [facility] Glucose 112(H) 70 - 100 mg/dL LAB CHEMISTRY METHOD 04/06/2024 11:35 AM [facility] BUN 12 5 - 25 mg/dL LAB CHEMISTRY METHOD 04/06/2024 11:35 AM [facility] Creatinine 1.03 0.70 - 1.30 mg/dL LAB CHEMISTRY METHOD 04/06/2024 11:35 AM [facility] eGFR 80 >=60 mL/min/1. 73m2 LAB CHEMISTRY METHOD 04/06/2024 11:35 AM [facility] Comment:Calculation based on the??Chronic Kidney Disease Epidemiology Collaboration (CKD-EPI) equation refit??without adjustment for race. BUN/Creatinine Ratio 11.7 LAB CHEMISTRY METHOD 04/06/2024 11:35 AM [facility] Calcium 8.9 8.5 - 10.5 mg/dL LAB CHEMISTRY METHOD 04/06/2024 11:35 AM [facility] AST (SGOT) 42 10 - 42 unit/L LAB CHEMISTRY METHOD 04/06/2024 11:35 AM [facility] Comment:Hemolysis present ALT (SGPT) 30 10 - 60 unit/L LAB CHEMISTRY METHOD 04/06/2024 11:35 AM [facility] Alkaline Phosphatase 75 42 - 121 unit/L LAB CHEMISTRY METHOD 04/06/2024 11:35 AM [facility] Total Protein 6.8 6.0 - 8.0 g/dL LAB CHEMISTRY METHOD 04/06/2024 11:35 AM [facility] Albumin 2.1(L) 3.2 - 5.0 g/dL LAB CHEMISTRY METHOD 04/06/2024 11:35 AM [facility] Total Bilirubin 1.3 0.0 - 1.4 mg/dL LAB CHEMISTRY METHOD 04/06/2024 11:35 AM EST [facility] Blood Venous blood specimen / Unknown Venipuncture / Unknown 04/06/2024 9:00 AM EST 04/06/2024 9:48 AM EST us Venus Belcher MD LAB BLOOD ORDERABLES Fin al Result [facility] [address] [place] [address], documented in this encounter Visit Diagnoses Diagnosis Cellulitis, unspecified documented in this encounter Care Teams Operations Research Analyst Relationship Specialty Start Date End Date Venus Belcher MD [address] [place] [address] PCP - General Family Medicine 04/06/24 documented as of this encounter
--- OUTSIDE RECORDS SUMMARY | 2024-04-29 17:14 | XMS_ITS | Encounter Summary ---
Author Organization [facility] Address [address] [place] [address] Care Team Providers Care Roof Cement And Paint Maker Helper Name Role Phone Venus Belcher MD Primary Care Provider + Encounter Details Date Type Department Care Team (Late st Contact Info) Description 04/06/2024 Lab Requisition [facility] - Main Lab [address] [place] [address] Venus Belcher MD 8[address] [facility] 1 [place], [place] [phone] Cellulitis, unspecified Social History Tobacco Use Types [...] LAB HEMETOLOGY METHOD 04/06/2024 3:24 PM EST [facility] RBC 3.30(L) 4.50 - 5.50 M/mcL LAB HEMETOLOGY METHOD 04/06/2024 3:24 PM EST [facility] Hemoglobin 10.9(L) 13.5 - 17.5 g/dL LAB HEMETOLOGY METHOD 04/06/2024 3:24 PM EST [facility] Hematocrit 32.9(L) 42.0 - 54.0 % LAB HEMETOLOGY METHOD 04/06/2024 3:24 PM [facility] MCV 98.5(H) 79.0 - 98.0 FL LAB HEMETOLOGY METHOD 04/06/2024 3:24 PM [facility] MCH 32.6(H) 27.0 - 32.0 pcg LAB HEMETOLOGY METHOD 04/06/2024 3:24 PM EST [facility] MCHC 33.1 32.0 - 37.0 g/dL LAB HEMETOLOGY METHOD 04/06/2024 3:24 PM [facility] RDW 13.9 11.0 - 15.0 % LAB HEMETOLOGY METHOD 04/06/2024 3:24 PM [facility] Platelets 476(H) 130 - 400 K/mcL LAB HEMETOLOGY METHOD 04/06/2024 3:24 PM EST [facility] MPV 9.8 7.0 - 11.0 FL LAB HEMETOLOGY METHOD 04/06/2024 3:24 PM EST [facility] NRBC 0.0 <1.0 % LAB HEMETOLOGY METHOD 04/06/2024 3:24 PM [facility] NRBC Absolute 0.00 <0.10 K/mcL LAB HEMETOLOGY METHOD 04/06/2024 3:24 PM [facility] Blood Venous blood specimen / Unknown Venipuncture / Unknown 04/06/2024 1:21 PM EST 04/06/2024 2:57 PM EST us Venus Belcher MD LAB BLOOD ORDERABLES Fin al Result [facility] [address] [place] [address], documented in this encounter Visit Diagnoses Diagnosis Cellulitis, unspecified documented in this encounter Care Teams Roof Cement And Paint Maker Helper Relationship Specialty Start Date End Date Venus Belcher MD [address] [phone] PCP - General Family Medicine 04/06/24 documented as of this encounter
--- OUTSIDE RECORDS SUMMARY | 2024-04-29 17:14 | XMS_ITS | Encounter Summary ---
Author Organization [facility] Address [address] [place] [address] Care Team Providers Care Director Camp Name Role Phone Venus Belcher MD Primary Care Provider + Encounter Details Date Type Department Care Team (Late st Contact Info) Description 04/13/2024 Lab Requisition [facility] - Main Lab [address] [facility] [place] [address] Venus Belcher MD [address] [address] Cellulitis, unspecified Social History Tobacco Use Types [...] unspecified documented in this encounter Care Teams Director Camp Relationship Specialty Start Date End Date Venus Belcher MD [address] [phone] PCP - General Family Medicine 04/06/24 documented as of this encounter
--- OUTSIDE RECORDS SUMMARY | 2024-04-29 17:14 | XMS_ITS | Encounter Summary ---
Author Organization [facility] Address [address] [place] [address] Care Team Providers Care Application Consultant Name Role Phone Venus Belcher MD Primary Care Provider + Encounter Details Date Type Department Care Team (Late st Contact Info) Description 04/25/2024 Lab Requisition [facility] - Main Lab [address] [facility] [place] [address] Venus Belcher MD [address] [address] Cellulitis, unspecified Social History Tobacco Use Types [...] unspecified documented in this encounter Care Teams Application Consultant Relationship Specialty Start Date End Date Venus Belcher MD [address] [phone] PCP - General Family Medicine 04/06/24 documented as of this encounter
--- OUTSIDE RECORDS SUMMARY | 2024-04-29 17:14 | XMS_ITS ---
Author Organization [facility] Address [address] [place] [address] Care Team Providers Care Network Desktop Support Specialist Name Role Phone Diego Gallagher Primary Care Provider Unav ailable Nancy Hardy Unavailable [phone] REASON FOR VISIT cx appt Encounters Encounter Location Date Provider Diagnosis [facility] [address] [place] [address] 04/09/2024 Nancy Hardy Plan Of Treatment No Information Progress Notes * Dinh BUCKLEY RDOB:[birth year] (69 yo M)Acc No.[id number]:04/09/2024 Patient:?Dinh BUCKLEY :1955???Age:69 Y???Sex:Male Address:[address] [place], [place] [address], [address] * true * Date:? Generated for Printi ng/Faxing/eTransmitting on:?04/29/2024 05:14 PM EDT
--- OUTSIDE RECORDS SUMMARY | 2024-04-29 17:14 | XMS_ITS ---
Author Organization [facility] Address [address] [place] [address] Care Team Providers Care Chief Optometry Service Name Role Phone Diego Gallagher Primary Care Provider Unav ailable MohamudguillermoNancy Unavailable [phone] Medications Medication SIG (Take, Route, Frequency, Duration) [...] Active Encounters Encounter Location Date Provider Diagnosis [facility] [place] [address] [place] [address] 03/24/2024 Nancy Hardy Plan Of Treatment No Information Progress Notes * Dinh BUCKLEY RDOB:[birth year] (69 yo M)Acc No.[id number]:03/24/2024 Progress Note Patient:?Dinh BUCKLEY Provider:?Nancy Hardy DPM :1955???Age:69 Y???Sex:Male Raj e:03/24/2024 Address:[address] [place], [place] [id number] Pcp:MARU Goldstein Subjective: * Chief Complaints: * [...] Hardy DPM Date:?06/2024 Generated for Katlin ramirez/Cece/Jemima on:?04/29/2024 05:14 PM EDT
--- OUTSIDE RECORDS SUMMARY | 2024-04-29 17:15 | XMS_ITS | Patient Health Record ---
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) Active confirmed Problem Mononeuropathy of lower limb (520557355) Neuritis of right foot (G57.91) Active confirmed Problem 38724732 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 Problem Atherosclerosis of [place] artery of both lower extremities, with unspecified presence of clinical manifestation (I70.203) Active confirmed Problem [id number] Atherosclerosi s of artery of both lower extremities (I70.203) Active confirmed Problem [id number] Neuropathic ul cer of right foot with fat layer exposed (L97.512) Active confirmed Vital Signs Blood pressure diastolic 70 mm Hg 01/09/2024 Height 6ft 4in in 01/09/2024 Blood pressure systolic 132 mm Hg 01/09/2024 Weight 425 lbs 01/09/2024 BMI 51.73 kg/m2 01/09/2024 Encounters Encounter Location Date Provider Diagnosis [facility] [address] [place] [address] 06/18/2023 Nancy Perica Atherosclerosis of [place] artery of both lower extremities, with unspecified presence of clinical manifestation I70.203 ; Neuropathy G62.9 ; Tinea unguium B35.1 ; Pain in right toe(s) M79.674 and Pain in left toe(s) M79.675 [facility] [address] [address] 01/09/2024 Nancy Hardy Neuropathy G62.9 ; Tinea unguium B35.1 ; Atherosclerosis of [place] artery of both lower extremities, with unspecified presence of clinical manifestation I70.203 ; Pain in right toe(s) M79.674 and Pain in left toe(s) M79.675 [facility] [address] 10/27/2023 Nancy Hardy [address] [address] 03/22/2024 Nancy Hardy [address] [address] 04/09/2024 Nancy Hardy Assessments Encounter Date Diagnosis (ICD Code) Assessment Notes Treatment Notes Treatment Clinical Notes Section Notes 06/18/2023 Atherosclerosis of [place] artery of both lower extremities, with unspecified presence of clinical manifestation (ICD-10 - I70.203) 01/09/2024 Tinea unguium (ICD-10 - B35.1) 01/09/2024 Neuropathy (ICD-10 - G62.9) 01/09/2024 Atherosclerosis of [place] artery of both lower extremities, with unspecified [...] Date Coverage End Date Medicare National Govt [facility] [address] [place] [address] [id number] Dinh Craven Self - patient is the insured [employer] [address] [place] [address] [id number] Dinh Craven Self - patient is the insured Medical (General) History Medical History History ICD Code Arthritis asthma Back,Hip,and Knee pain Lung disease Neuropathy Poor circulation thyroid Chicken pox Joint implants/screws A fib Surgical History Surgery Date(Month/Year) knee replacement 2013 appendectomy 2015 rotator cuff 2019 Hospitalization History Reason Date(Month/Year) [facility] [place]- 10 days [place] [facility] [place]- chest pains, a fib
--- OUTSIDE RECORDS SUMMARY | 2024-04-29 17:15 | XMS_ITS ---
Author Organization [facility] Care Team Providers Care Casino Investigator Name Role Phone Franco Ayala Unavailable Unavailable Venus Belcher Unavailable Unavailable Lacey FILM SORTER, David Gottlieb Unavailable Unavailable Allergies and adverse reactions No Known Allergies Care Team Name Role Address Phone Organization Dates Venus Belcher PCP [address] [place] [address], [facility], [facility] (Office): : [facility] 04/05/2024 - 04/12/2024 Franco Ayala Attending Physician [place], [facility] 04/05/2024 - 04/12/2024 David Rahman NP Attending Physician [address] [place] [address] (Office): [facility] 04/05/2024 - 04/12/2024 Goals Section Description Status Target Date Dinh will accept diet as ordered, self-limit intake of higher CHO/kcal snacks b/w meals AEB no significant weight changes, BMI remain <53.0. Active 07/04/2024 Dinh will attend programs 2x weekly and be open to room visits through next review date. Active 07/04/2024 Dinh will be free of s/sx of respiratory infections through review date. Active 07/04/2024 Dinh will display optimal breathing patterns daily through review date. Active 07/04/2024 The resident will be contine nt at all times through the review date Active 07/04/2024 The resident will be contine nt at all times through the review date. Active 07/04/2024 The resident will be free fr om complications of cardiac problems through the review date. Active 07/04/2024 The resident will be free fr om complications related to infection through the review date. Active 07/04/2024 The resident will be free of falls through the r eview date. Active 07/04/2024 The resident will have impro michael sleep pattern by reporting adequate rest or fewer documented episodes of insomnia through the review date Active 07/04/2024 The resident will have no co mplications related to SOB though the review date. Active 07/04/2024 The resident will improve cu rrent level of function in through the review date. Active 07/04/2024 The resident will maintain l ab values within acceptable parameters per MD through review date. Active 07/04/2024 The resident will not displa y any complications related to immune deficiency. Active 07/04/2024 The resident will not have a n interruption in normal activities due to pain through the review date. Active 07/04/2024 The resident will remain alejandra e from discomfort, complications or s/sx related to gastro-intestinal alterations through review date. Active 07/04/2024 The resident will remain alejandra e from pain or at a level of discomfort acceptable to the resident through the review date. Active 07/04/2024 The resident will remain alejandra e of s/sx of fluid overload through review date, as evidenced by decrease in or absence of edema, anxiety, agitation, restlessness, confusion, changes in mood or behavior, nausea/vomiting, dyspnea, congestion, orthopnea, easily fatigued, jugular vein distension. Active 07/04/2024 The resident will show decre ased episodes of s/sx of depression through the review date. Active 07/04/2024 The resident's will have no complications r/t blisters, edema and fragile skin of the lower extremities due to lymphedema through the review date. Active 07/04/2024 the resident/HCP/Guardian's Advanced Directives will be honored through next review Active 07/04/2024 Functional Status Code Name Recorded Time Value Entered By Chair/gnu-vp-qnsbt transfer 04/13/2024 Not assessed [email or web address] Eating 04/12/2024 Not assessed [email or web address] Lower body dressing 04/13/2024 Not assessed [email or web address] 1 Lying to sitting on side of bed 04/13/2024 Not asses sed [email or web address] Oral hygiene 04/13/2024 Not assessed [email or web address] Personal hygiene 04/13/2024 Not assessed [email or web address] Roll left and right 04/13/2024 Not assessed [email or web address] 1 Shower/bathe self 04/13/2024 Not assessed [email or web address] Sit to lying 04/13/2024 Not assessed [email or web address] Sit to stand 04/13/2024 Not assessed [email or web address] Toilet transfer 04/13/2024 Not assessed [email or web address] Toileting hygiene 04/13/2024 Not assessed [email or web address] Upper body dressing 04/13/2024 Not assessed [email or web address] 1 Wheel 150 feet 04/13/2024 Not assessed [email or web address] Wheel 50 feet with two turns 04/13/2024 Not assessed [email or web address] Immunizations Immunization Status Vaccine Details Vaccine Code CodeSystem Date Notes PPSV23 completed pneumococcal polysaccharide vaccine, 23 valent 33 CVX created date: 04/05/2024 administere d date: 09/19/2015 Influenza-High Dose(Fluzone) completed created date: 04/05/2024 administere d date: 10/06/2023 PVC20 completed Pneumococcal conjugate vaccine 20-valent (PCV20), polysaccharide SRI624 conjugate, adjuvant, preservative free 216 CVX created [...] Aerosol Solution 108 (90 Base) MCG/ACT active 277404 RXNORM 2 puff Inhalat ion as needed PRN 2 puff inhale orally every 6 hours as needed for sob or wheeze 2024 - Colace Oral Capsule 100 MG active 061493 6 RXNORM 100 mg Oral two times a day Routine Give 100 mg by mouth two times a day for consti pation 2024 - Methenamine Hippurate Oral Tablet 1 GM active 990743 RXNORM 1 tablet Oral one time a day Routine Give 1 tablet by mouth one time a day for preven tative 2024 - rOPINIRole HCl Oral Tablet 2 MG active 248601 RXNORM 2 mg Oral three times a day Routine Give 2 mg by mouth three times a day for spasms 2024 - Atorvastatin Calcium Oral Tablet 80 MG active 120329 RXNORM 80 mg Oral one time a day Routine Give 80 mg by mouth one time a day for choles terol contro l 2024 - Amiodarone HCl Oral Tablet 200 MG active 424590 RXNORM 200 mg Oral one time a day Routine Give 200 mg by mouth one time a day for Heart health 2024 - Lyrica Oral Capsule 150 MG active 427020 RXNORM 150 mg Oral three times a day Routine Give 150 mg by mouth three times a day for antico nvulsa nt 2024 - DULoxetine HCl Oral Capsule Delayed Release Sprinkle 60 MG active 899567 RXNORM 60 mg Oral one time a day Routine Give 60 mg by mouth one time a day for antide pressa nt 2024 - Ambien Oral Tablet 10 MG active 489194 RXNORM 10 mg Oral as needed PRN Give 10 mg by mouth every 24 hours as needed for insomn ia 2024 - Nystatin Mouth/Throat Suspension 631605 UNIT/ML complete d 677168 RXNORM 026615 unit Oral three times a day Routine Give 297066 unit by mouth three times a day for thrush until 2024 00:00 04/07 Anoro Ellipta Inhalation Aerosol Powder Breath Activated 62.5-25 MCG/ACT active 175851 4 RXNORM 1 inhala tion Inhalat ion one time a day Routine 1 inhala tion inhale orally one time a day for respir atory 2024 - Doxycycline Hyclate Oral Tablet 100 MG complete d 583858 3 RXNORM 100 mg Oral two times a day Routine Give 100 mg by mouth two times a day for infect ion for 4 Days 04/10 Acetaminophen Oral Tablet active 975 mg Oral as needed PRN Give 975 mg by mouth every 4 hours as needed for pain 2024 - Spironolacton e Oral Tablet 25 MG active 058349 RXNORM 25 mg Oral one time a day Routine Give 25 mg by mouth one time a day for HTN 2024 - Ipratropium-A lbuterol Solution 0.5-2.5 (3) MG/3ML active 773649 2 RXNORM 3 ml Inhalat ion as needed PRN 3 ml inhale orally via nebuli zer every 6 hours as needed for sob or wheeze ANNALISA = Clear lung sounds A DV = Gnosticism itious D IMI = Dimini shed 2024 - MiraLax Oral Packet 17 GM active 515740 RXNORM 17 gram Oral in the morning Routine Give 17 gram by mouth in the mornin g for consti pation 2024 - Amoxicillin-P ot Clavulanate Oral Tablet 875-125 MG aborted 506202 RXNORM 1 tablet Oral two times a day Routine Give 1 tablet by mouth two times a day for infect ion for 4 Days 04/07 Ammonium Lactate External Cream 12 % aborted 448084 RXNORM n/a n/a Topical every day shift Routine Apply to legs topica lly every day shift for skin altera tion 04/07 Doxycycline Hyclate Oral Tablet 100 MG aborted 001336 3 RXNORM 100 mg Oral two times a day Routine Give 100 mg by mouth two times a day for infect ion 04/05 Bumex Oral Tablet 2 MG active 520202 RXNORM 2 mg Oral one time a day Routine Give 2 mg by mouth one time a day for diuret ic 2024 - Doxazosin Mesylate Oral Tablet 8 MG active 501496 RXNORM 8 mg Oral one time a day Routine Give 8 mg by mouth one time a day for prosta te 2024 - Finasteride Oral Tablet 5 MG active 140977 RXNORM 5 mg Oral one time a day Routine Give 5 mg by mouth one time a day for prosta te 2024 - oxyBUTYnin Chloride ER Oral Tablet Extended Release 24 Hour 10 MG active 045218 RXNORM 10 mg Oral one time a day Routine Give 10 mg by mouth one time a day for bladde r spasms 2024 - oxyCODONE HCl Oral Tablet 5 MG active 258627 1 RXNORM 10 mg Oral as needed PRN Give 10 mg by mouth every 4 hours as needed for pain 2024 - Fleet Enema Enema 7-19 GM/118ML active 592637 RXNORM 1 dose Rectal as needed PRN Insert 1 dose rectal ly as needed for Consti pation (Step 3) as needed if no bowel moveme nt for 8 hours after bisaco dyl suppos itory. 2024 - Milk of Magnesia Suspension 400 MG/5ML active 938516 RXNORM 30 ml Oral as needed PRN Give 30 ml by mouth as needed for Consti pation (Step 1) As needed if no bowel moveme nt for three days. (Do not use for Hemodi alysis patien ts). 2024 - Bisacodyl Suppository 10 MG active 769883 RXNORM 1 suppos itory Rectal as needed PRN Insert 1 suppos itory rectal ly as needed for If no bowel moveme nt for 8 hours after Milk of Magnes ia 2024 - Zofran Oral Tablet 4 MG active 703816 RXNORM 4 mg Oral as needed PRN Give 4 mg by mouth every 8 hours as needed for nausea / vomitt ing 2024 - Ammonium Lactate External Cream 12 % active 189481 RXNORM n/a n/a Topical every evening shift Routine Apply to legs topica lly every evenin g shift for skin altera tion 2024 - cefTRIAXone Sodium Injection Solution Reconstituted 1 GM complete d 377533 1 RXNORM 1 gram Intrave nous in [...] Normal Saline Flush Solution 0.9 % active 498004 6 RXNORM 10 ml Intrave nous every day and evening shift Routine Use 10 ml intrav enousl y every day and evenin g shift for IV Mainte nance No medica tion infusi on. To mainta in line for later infusi on. Flush every shift 2024 - Normal Saline Flush Solution 0.9 % complete d 287967 6 RXNORM 10 ml Intrave nous in the morning Routine Use 10 ml intrav enousl y in the mornin g for Cellul itis for 4 Days Flush IV infusi on line before medica tion infusi on. 04/12 cefTRIAXone Sodium Injection Solution Reconstituted 2 GM complete d 734831 6 RXNORM 2 gram Intrave nous one time only One Time Only Use 2 gram intrav enousl y one time only for Serina Cellit litis until 2024 23:59 04/08 cefTRIAXone Sodium Intravenous Solution Reconstituted 1 GM active 025023 RXNORM 1 gram Intrave nous in the evening Routine Use 1 gram intrav enousl y in the evenin g for serina cellul itis until 2024 23:59 04/15 Problems Problem # Description Date of onset Resolved Date Code CodeSystem Concern Status 1 CHRONIC ATRIAL FIBRILLATION, UNSPECIFIED 04/05/[address] active 2 CHRONIC OBSTRUCTIVE PULMONARY DISEASE, UNSPECIFIED 04/05/[address] active 3 DEPENDENCE ON OTHER ENABLING MACHINES AND DEVICES 04/05/[address] active 4 DEPENDENCE ON SUPPLEMENTAL OXYGEN 04/05/[address] active 5 DEPRESSION, UNSPECIFIED 04/05/[address] active 6 ESSENTIAL (PRIMARY) HYPERTENSION 04/05/[address] active 7 HISTORY OF FALLING 04/05/[address] active 8 INSOMNIA, UNSPECIFIED 04/05/[address] active 9 LYMPHEDEMA, NOT ELSEWHERE CLASSIFIED 04/05/[address] active 10 MORBID (SEVERE) OBESITY DUE TO EXCESS CALORIES 04/05/[address] active 11 MUSCLE WEAKNESS (GENERALIZED) 04/05/[address] active 12 OBSTRUCTIVE SLEEP APNEA (ADULT) (PEDIATRIC) 04/05/[address] active 13 OTHER ABNORMALITIES OF GAIT AND MOBILITY 04/05/[address] active 14 OVERACTIVE BLADDER 04/05/[address] T active 15 POLYNEUROPATHY, UNSPECIFIED 04/05/[address] active 16 RHEUMATOID ARTHRITIS WITHOUT RHEUMATOID FACTOR, UNSPECIFIED SITE 04/05/[address] active 17 UNSPECIFIED FALL, SUBSEQUENT ENCOUNTER 04/05/[address] active 18 VENOUS INSUFFICIENCY (CHRONIC) (PERIPHERAL) 04/05/202483847369 SNOMED CT active 19 WEAKNESS 04/05/[address] active Reason for Referral No Reasons for Referral Entered Social History Social History Observation Description Start Date End Date Code Code System Current Smoking Status Tobacco smoking consumption unknown 735902661 SNOMED CT Sex Assigned At Male 1955 51267-3 [facility] Vital Signs Code Code System Vitals Name Values and Units Timing Information 12809-9 [facility] Pain Level Value=0.0 04/10/2024 9279-1 [facility] Respiratory Rate Value=18.0 Units=/m in 04/10/2024 8867-4 [facility] Heart rate Quayz=681.0 Units=/min 04/10/2024 8462-4 [facility] Blood Pressure-Diastolic Value=70 Un its=mmHg 04/10/2024 8480-6 [facility] Blood Pressure-Systolic Oyokj=041 Un its=mmHg 04/10/2024 28877-7 [facility] O2 % BldC Oximetry Value=94.0 Units= % 04/10/2024 8310-5 [facility] Body Temperature Value=98.4 Units=?? F 04/09/2024 49305-1 [facility] Weight Fdxol=403.2 Units=Lbs 8302-2 [facility] Height Value=76.0 Units=Inches 04/05/2024
--- OUTSIDE RECORDS SUMMARY | 2024-04-29 17:15 | XMS_ITS ---
Author Organization [facility] Address [address] [place] [address] Care Team Providers Care Preformer [employer]ated [employer] Name Role Phone Diego Gallagher Primary Care Provider Unav ailable Nancy Hardy Unavailable [phone] Encounters Encounter Location Date Provider Diagnosis [facility] [address] [place] [address] 04/13/2024 Nancy Hardy Plan Of Treatment No Information Progress Notes * Dinh BUCKLEY RDOB:[birth year] (69 yo M)Acc No.[id number]:04/13/2024 Progress Note Patient:?Dinh BUCKLEY Provider:?Nancy Hardy DPM :1955???Age:69 Y???Sex:Male Raj e:04/13/2024 Address:[address] [place] [address] [id number] Pcp:MARU Goldstein Subjective: * Chief Complaints: * ??? * Medical History:? Objective: * Vitals:? Assessment: Plan: * Treatment: * Images: * The named appointment provid er may or may not be the originator of this progress note, and it is not deemed complete until electronically signed by the appointment provider. Sign off status: Pending * Provider:?Nancy Hardy DPM Date:?02/ Generated for Katlin ramirez/Cece/Jemima on:?04/29/2024 05:14 PM EDT
== END 2024-04-29 14:55 | disposition home or self-care (01) ==
LOC: HO.HPS 13:40
PROVIDERS: PCP Nurse Practitioner Family; Visit Provider Internal Medicine
DX: E66.01 Morbid (severe) obesity due to excess calories (principal); J98.4 Other disorders of lung; J44.9 Chronic obstructive pulmonary disease, unspecified; J96.91 Respiratory failure, unspecified with hypoxia; G47.33 Obstructive sleep apnea (adult) (pediatric); Z99.89 Dependence on other enabling machines and devices
CPT/HCPCS: 99214

== ENCOUNTER → 2024-04-29 13:39 | Outpatient (BNVA) | payer MEDICARE, SELFPAY | PROVIDERS: PCP Nurse Practitioner Family; Visit Provider Internal Medicine | DX: J44.9 Chronic obstructive pulmonary disease, unspecified (principal); J98.4 Other disorders of lung; J96.91 Respiratory failure, unspecified with hypoxia; E66.09 Other obesity due to excess calories; G47.33 Obstructive sleep apnea (adult) (pediatric); I50.9 Heart failure, unspecified; Z99.89 Dependence on other enabling machines and devices; Z68.42 Body mass index [BMI] 45.0-49.9, adult | CPT/HCPCS: 99212 ==

== ENCOUNTER 2024-05-11 13:24 | Outpatient (AMB) | payer MEDICARE, SELFPAY ==
[2024-05-11 13:47] VITALS: BP 116/64; PULSE 94; O2SAT 95; BMI 49.3
--- NOTE | 2024-05-11 13:47 | MHC.OFFVIS ---
Vital Signs 05/11/24 13:47 Height 6 ft 4 in Weight 404 lb 12.299 oz BMI 49.3 BP 116/64 Blood Pressure Location Rt brachial Position Sitting Pulse 94 Pulse Source Pulse Oximeter Pulse Oximetry (%) 95 Oxygen Delivery Method Room Air Intake Visit Reasons: Hyperthyroidism Intake Note: Patient present today for Hyperthyroidism follow up. 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 Accompanied by: Self / Same As Patient Allergies No Known Allergies [No Known Allergies*] Allergy (Verified 05/11/24 13:48) Medication List - Last Reconciled 05/11/24 by Marc Muñoz MD acetaminophen 975 mg PO Q4H PRN acidophilus-pectin, citrus 100 million cell-10 mg 1 cap PO DAILY albuterol sulfate 90 mcg/actuation 2 puffs PO Q6H PRN amiodarone 200 mg PO DAILY 90 days ammonium lactate 12% 1 appl topical BEDTIME Anoro Ellipta 62.5-25 mcg/actuation (umeclidinium-vilanterol) 1 inh PO DAILY 30 days NS ascorbic acid (vitamin C) 1 g PO DAILY 90 days atorvastatin 80 mg PO BEDTIME 90 days bisacodyl 10 mg W[place] DAILY PRN bumetanide 2 mg (2 x 1 mg) PO DAILY clotrimazole 1% 1 appl See Protocol topical BID docusate sodium (Colace) 100 mg PO BID doxazosin 8 mg PO BEDTIME 90 days doxycycline monohydrate 100 mg PO BID duloxetine 60 mg PO DAILY ferrous sulfate 324 mg PO DAILY finasteride 5 mg PO DAILY 90 days hydrocortisone 1% 1 appl See Protocol topical DAILY ipratropium-albuterol 0.5 mg-3 mg(2.5 mg base)/3 mL 3 mL inhalation Q6H PRN 30 days magnesium hydroxide (Milk of Magnesia) 30 mL PO DAILY PRN methenamine hippurate 1 g PO DAILY 90 days methocarbamol 500 mg PO BEDTIME omeprazole 20 mg PO DAILY ondansetron HCl 4 mg PO Q8H PRN oxybutynin chloride ER 10 mg PO DAILY@2000 oxycodone 10 mg (2 x 5 mg) PO Q4H PRN polyethylene glycol 3350 17 grams PO DAILY [Powered bariatric recliner As directed] pregabalin 150 mg PO TID 90 days ropinirole 2 mg PO TID sodium phosphates 19-7 gram/118 mL (Fleet Enema) 118 mL [place] DAILY PRN spironolactone 25 mg PO DAILY walker daily use (rolling sitting walker-bariatric size needed) zolpidem 10 mg PO BEDTIME PRN HPI Comments Details: 69 YO M with who is seen in consultation for hyperthyroidism at the request of PCP. Was initially diagnosed with hyperthyroidism. Currently denies any dysphagia but hoarseness of voice. Denies sensation of swelling in the neck or difficulty breathing while lying flat. Denies any tenderness in the neck. Denies any palpitations, but had tremors, weight loss of 35 lbs intentionally has stabilized , no frequent bowel movements. Only complaint is waking up after 5 hours of sleep at not being able to fall back to sleep Denies any ocular complaints, blurred or double vision. c/o hair loss, dry skin, no heat intolerance at nights no cold intolerance, no weight gain, no confusion. Denies any history of head or neck irradiation. Denies any family history of thyroid cancer. Strong family hx of thyroid problems Does not take Biotin Thyroid US: Labs: Evaluation showed the presence of Graves disease. Antibody subsequently were negative and methimazole was withdrawn with continued euthyroidism. Patient is currently off methimazole The patient is a 69-year-old male presenting for follow-up of Graves' Disease. The condition has been recently managed without methimazole as recent thyroid function tests indicate normal levels and antibody tests are negative. The patient experienced multiple hospitalizations early this year, though these were not directly linked to the thyroid condition. Over the last several months, he has considerable improvement and weight loss via dietary adjustment, and currently, he reports no symptoms of hyperthyroidism. [facility] Medical History (Updated 04/29/24 @ 15:21 by Savanna Andujar MD) JEFFRY on CPAP Anemia Chronic diastolic heart failure Sepsis COPD (chronic obstructive pulmonary disease) Acute respiratory failure due to COVID-19 Community acquired pneumonia Viral sepsis Fatigue Acute on chronic diastolic CHF (congestive heart failure) COVID Morbid obesity Paroxysmal atrial fibrillation Congestive heart failure Testicular swelling Osteoarthritis of right knee Melanoma History of cardioversion Hereditary lymphedema Venous insufficiency Morbid obesity Lymphedema COPD (chronic obstructive pulmonary disease) Sensory neuropathy COVID-19 Respiratory failure with hypoxia Restrictive lung disease MATUTE (dyspnea on exertion) Chronic cystitis Bladder outlet obstruction Restless leg syndrome Traumatic complete tear of right rotator cuff Injury of right rotator cuff History of diverticulitis History of umbilical hernia Surgical History Hx of colonoscopy History of appendectomy History of arthroscopy of left knee Family History Father Arthritis Diabetes Mother Arthritis Kidney stones Family/Other Arthritis Sister No problems noted. Sister No problems noted. Son No problems noted. Social History Household Members: Spouse Household Members Other:: Housing: Condominium Do you presently have visiting nurse or other home services: Yes Unable to assess alcohol history related to: Unknown Alcohol intake: current Alcohol intake frequency: holidays/special occasions only Alcohol type: beer Comment: Refused bed alarm due to alarm sensitivity when changing positions. Patient Tobacco Use Status: Former Tobacco user Tobacco use type: Cigarette Cigarette Packs Per Day: 1 Years Smoked: 30 years e-Cigarette/Vaping Use: Never Used Second Hand Smoke Exposure: No Substance Use Type: Marijuana Advance Directives Date on File: 02/24/24 service: No Current occupational status: retired Current occupation: [employer]/ rt Cognitive needs: No Hearing needs: No Vision needs: No Physical Exam Vital Signs: Last Vital Signs Pulse 94 05/11/24 13:47 BP 116/64 05/11/24 13:47 Pulse Ox 95 05/11/24 13:47 Oxygen Delivery Method Room Air 05/11/24 13:47 BMI result Body Mass Index 49.3 HEENT reveals absence of lid lag , stare or proptosis or eyebrow loss. Thyroid gland measure 15 gms . No nodules or tenderness palpated. There is no cervical adenopathy palpated. Lungs CTA. Heart S1, S2 Reg R/R -M/R/G. Abdominal exam benign. Skin exam reveals absence of dryness or thyroid dermopathy or vitiligo. Nail exam reveals absence of thyroid acropachy or oncholysis. Neurologic exam reveals 2+ reflexes . Muscle Strength is 5/5 proximally. There are no tremors in upper extremities. Const Other: Thyroid gland is normal size weighs about 15 g . There are no thyroid nodules palpated Assessment & Plan Assessment & Plan (1) Low TSH level: Code(s): R79.89 - Other specified abnormal findings of blood chemistry Category: Medical Plan: This is a 66-year-old white male with a history of hyperthyroidism due to Graves disease. He is currently off methimazole .. He appears to be clinically and biochemically euthyroid 1. Graves' Disease: The patient's condition is currently in remission as evidenced by normal thyroid function tests and negative antibodies after discontinuing methimazole. There are no symptoms of hyperthyroidism reported by the patient. Continued monitoring of thyroid levels with the primary care provider is recommended, and re-evaluation should symptoms arise. During the visit, I discussed with the patient the status of their Graves' Disease, which is presently in remission as supported by normal laboratory results. I emphasized the importance of continuing thyroid level monitoring through their primary care physician while symptoms remain in check. We discussed that should any symptoms such as tremors or palpitations return, it would necessitate revisiting their care management. The benefit of maintaining symptom-free status without medication was affirmed, alongside acknowledging the patient's successful weight management attributed to dietary changes. - Monitor thyroid symptoms and report any recurrence such as tremors or palpitations. - Continue with current dietary practices that have promoted weight loss. - Follow up with primary care for routine thyroid function testing. Coding Level of Care Code Est Pt Level 3 (48858) Diagnoses Low TSH level R79.89
--- OUTSIDE RECORDS SUMMARY | 2024-05-11 16:23 | XMS_ITS | Clinical Summary ---
Author Organization [address] Address [address] [place] [address] Phone Care Team Providers Care Technical Services Manager Name Role Phone Venus Belcher MD Primary Care Provider + Encounters Date Type Department Care Team Description 04/25/[address] [facility] Lab [address] [place] [phone] Venus Belcher MD Cellulitis, unspecified 04/18/2024 Lab Requisition [facility] Lab [address] [place] [phone] Venus Belcher MD Cellulitis, unspecified 04/13/2024 Lab Requisition [facility] Lab [address] [place] [address] Venus Belcher MD Cellulitis, unspecified 04/06/2024 Lab Requisition [facility] Lab [address] [place] [phone] Venus Belcher MD Cellulitis, unspecified 04/06/2024 Lab Requisition [facility] Lab [address] [place] [phone] Venus Belcher MD Cellulitis, unspecified from Last [...] PM EST) WBC 15.1(H) 4.8 - 10.8 K/[facility] LAB HEMETOLOGY METHOD 04/06/2024 3:24 PM [facility] RBC 3.30(L) 4.50 - 5.50 M/mcL LAB HEMETOLOGY METHOD 04/06/2024 3:24 PM [facility] LAB Hemoglobin 10.9(L) 13.5 - 17.5 g/dL LAB HEMETOLOGY METHOD 04/06/2024 3:24 PM [facility] LAB Hematocrit 32.9(L) 42.0 - 54.0 % LAB HEMETOLOGY METHOD 04/06/2024 3:24 PM [facility] LAB MCV 98.5(H) 79.0 - 98.0 FL LAB HEMETOLOGY METHOD 04/06/2024 3:24 PM [facility] LAB MCH 32.6(H) 27.0 - 32.0 pcg LAB HEMETOLOGY METHOD 04/06/2024 3:24 PM [facility] LAB MCHC 33.1 32.0 - 37.0 g/dL LAB HEMETOLOGY METHOD 04/06/2024 3:24 PM [facility] LAB RDW 13.9 11.0 - 15.0 % LAB HEMETOLOGY METHOD 04/06/2024 3:24 PM [facility] LAB Platelets 476(H) 130 - 400 K/mcL LAB HEMETOLOGY METHOD 04/06/2024 3:24 PM [facility] LAB MPV 9.8 7.0 - 11.0 FL LAB HEMETOLOGY METHOD 04/06/2024 3:24 PM [facility] LAB NRBC 0.0 <1.0 % LAB HEMETOLOGY METHOD 04/06/2024 3:24 PM [facility] LAB NRBC Absolute 0.00 <0.10 K/mcL LAB HEMETOLOGY METHOD 04/06/2024 3:24 PM [facility] Blood Venous blood specimen / Unknown Venipuncture / Unknown 04/06/2024 1:21 PM EST 04/06/2024 2:57 PM EST us Venus Belcher MD LAB BLOOD ORDERABLES Fin al Result [facility] [address] [place] [address], * (ABNORMAL) Comprehensive metabolic panel (04/06/2024 9:00 AM EST) Pathologist [facility] Sodium 129(L) 133 - 145 mmol/L LAB CHEMISTRY METHOD 04/06/2024 11:35 AM [facility] Potassium 4.5 3.5 - 5.5 mmol/L LAB CHEMISTRY METHOD 04/06/2024 11:35 AM [facility] LAB Comment:Hemolysis present Chloride 94(L) [...] 04/06/2024 11:35 AM [facility] Blood Venous blood specimen / Unknown Venipuncture / Unknown 04/06/2024 9:00 AM EST 04/06/2024 9:48 AM EST us Venus Belcher MD LAB BLOOD ORDERABLES Fin al Result [facility] [address] [place] [address], from Last 3 Months Insurance MEDICARE [facility] Advance Directives Documents on File Type Date Recorded 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
--- OUTSIDE RECORDS SUMMARY | 2024-05-11 16:23 | XMS_ITS | Encounter Summary ---
Author Organization [facility] Address [address] [place] [address] Care Team Providers Care Industrial Psychologist Name Role Phone Venus Belcher MD Primary Care Provider + Encounter Details Date Type Department Care Team (Late st Contact Info) Description 04/06/[address] [facility] [address] [place] [address] Venus Belcher MD [address] [facility] [address] [place], [place] [phone] Cellulitis, unspecified Social History Tobacco Use Types [...] LAB CHEMISTRY METHOD 04/06/2024 11:35 AM EST [facility] Potassium 4.5 3.5 - 5.5 mmol/L LAB CHEMISTRY METHOD 04/06/2024 11:35 AM EST [facility] LAB Comment:Hemolysis present Chloride 94(L) 96 - 110 mmol/L LAB CHEMISTRY METHOD 04/06/2024 11:35 AM [facility] LAB CO2 23 21 - 32 mmol/L LAB CHEMISTRY METHOD 04/06/2024 11:35 AM [facility] LAB Anion Gap 12(H) 3 - 11 LAB CHEMISTRY METHOD 04/06/2024 11:35 AM [facility] LAB Glucose 112(H) 70 - 100 mg/dL LAB CHEMISTRY METHOD 04/06/2024 11:35 AM [facility] BUN 12 5 - 25 mg/dL LAB CHEMISTRY METHOD 04/06/2024 11:35 AM [facility] LAB Creatinine 1.03 0.70 - 1.30 mg/dL LAB CHEMISTRY METHOD 04/06/2024 11:35 AM [facility] LAB eGFR 80 >=60 mL/min/1. 73m2 LAB CHEMISTRY METHOD 04/06/2024 11:35 AM [facility] LAB Comment:Calculation based on the??Chronic Kidney Disease Epidemiology Collaboration (CKD-EPI) equation refit??without adjustment for race. BUN/Creatinine Ratio 11.7 LAB CHEMISTRY METHOD 04/06/2024 11:35 AM [facility] LAB Calcium 8.9 8.5 - 10.5 mg/dL LAB CHEMISTRY METHOD 04/06/2024 11:35 AM [facility] LAB AST (SGOT) 42 10 - 42 unit/L LAB CHEMISTRY METHOD 04/06/2024 11:35 AM [facility] LAB Comment:Hemolysis present ALT (SGPT) 30 10 - 60 unit/L LAB CHEMISTRY METHOD 04/06/2024 11:35 AM [facility] LAB Alkaline Phosphatase 75 42 - 121 unit/L LAB CHEMISTRY METHOD 04/06/2024 11:35 AM [facility] LAB Total Protein 6.8 6.0 - 8.0 g/dL LAB CHEMISTRY METHOD 04/06/2024 11:35 AM [facility] LAB Albumin 2.1(L) 3.2 - 5.0 g/dL LAB CHEMISTRY METHOD 04/06/2024 11:35 AM [facility] LAB Total Bilirubin 1.3 0.0 - 1.4 mg/dL LAB CHEMISTRY METHOD 04/06/2024 11:35 AM EST [facility] LAB Blood Venous blood specimen / Unknown Venipuncture / Unknown 04/06/2024 9:00 AM EST 04/06/2024 9:48 AM EST us Venus Belcher MD LAB BLOOD ORDERABLES Fin al Result [facility] LAB [address] [place] [address], documented in this encounter Visit Diagnoses Diagnosis Cellulitis, unspecified documented in this encounter Care Teams Industrial Psychologist Relationship Specialty Start Date End Date Venus Belcher MD [address] [place] [phone] PCP - General Family Medicine 04/06/24 documented as of this encounter
--- OUTSIDE RECORDS SUMMARY | 2024-05-11 16:23 | XMS_ITS ---
Author Organization [facility] Address [address] [place] [address] Care Team Providers Care Strategic Intelligence Officer Name Role Phone Diego Gallagher Primary Care Provider Unav ailable MohamudguillermoNancy Unavailable [phone] Medications Medication SIG (Take, Route, Frequency, Duration) [...] Active Encounters Encounter Location Date Provider Diagnosis [facility] [place] [address] [place] [address] 03/24/2024 Nancy Hardy Plan Of Treatment No Information Progress Notes * Dinh BUCKLEY RDOB:[birth year] (69 yo M)Acc No.[id number]:03/24/2024 Progress Note Patient:?Dinh BUCKLEY Provider:?Nancy Hardy DPM :1955???Age:69 Y???Sex:Male Raj e:03/24/2024 Address:[address] [place], [place] [id number] Pcp:MARU Goldstein Subjective: * Chief Complaints: * [...] Hardy DPM Date:?06/2024 Generated for Katlin ramirez/Cece/Jemima on:?05/11/2024 04:23 PM EDT
--- OUTSIDE RECORDS SUMMARY | 2024-05-11 16:23 | XMS_ITS | Encounter Summary ---
Author Organization [facility] Address [address] [place] [address] Care Team Providers Care Hoop Punch And Coiler Operator Name Role Phone Venus Belcher MD Primary Care Provider + Encounter Details Date Type Department Care Team (Late st Contact Info) Description 04/06/2024 Lab Requisition [facility] Lab [address] [place] [address] Venus Belcher MD [address] [facility] [address] [place], [place] [phone] Cellulitis, unspecified Social History Tobacco Use Types [...] LAB HEMETOLOGY METHOD 04/06/2024 3:24 PM EST [facility] RBC 3.30(L) 4.50 - 5.50 M/mcL LAB HEMETOLOGY METHOD 04/06/2024 3:24 PM EST [facility] Hemoglobin 10.9(L) 13.5 - 17.5 g/dL LAB HEMETOLOGY METHOD 04/06/2024 3:24 PM EST [facility] Hematocrit 32.9(L) 42.0 - 54.0 % LAB HEMETOLOGY METHOD 04/06/2024 3:24 PM [facility] LAB MCV 98.5(H) 79.0 - 98.0 FL LAB HEMETOLOGY METHOD 04/06/2024 3:24 PM [facility] LAB MCH 32.6(H) 27.0 - 32.0 pcg LAB HEMETOLOGY METHOD 04/06/2024 3:24 PM EST [facility] LAB MCHC 33.1 32.0 - 37.0 g/dL LAB HEMETOLOGY METHOD 04/06/2024 3:24 PM [facility] LAB RDW 13.9 11.0 - 15.0 % LAB HEMETOLOGY METHOD 04/06/2024 3:24 PM [facility] LAB Platelets 476(H) 130 - 400 K/mcL LAB HEMETOLOGY METHOD 04/06/2024 3:24 PM EST [facility] LAB MPV 9.8 7.0 - 11.0 FL LAB HEMETOLOGY METHOD 04/06/2024 3:24 PM EST [facility] LAB NRBC 0.0 <1.0 % LAB HEMETOLOGY METHOD 04/06/2024 3:24 PM [facility] NRBC Absolute 0.00 <0.10 K/mcL LAB HEMETOLOGY METHOD 04/06/2024 3:24 PM [facility] Blood Venous blood specimen / Unknown Venipuncture / Unknown 04/06/2024 1:21 PM EST 04/06/2024 2:57 PM EST us Venus Belcher MD LAB BLOOD ORDERABLES Fin al Result [facility] [address] [place] [address], documented in this encounter Visit Diagnoses Diagnosis Cellulitis, unspecified documented in this encounter Care Teams Hoop Punch And Coiler Operator Relationship Specialty Start Date End Date Venus Belcher MD [address] [address] PCP - General Family Medicine 04/06/24 documented as of this encounter
--- OUTSIDE RECORDS SUMMARY | 2024-05-11 16:24 | XMS_ITS ---
Author Organization [facility] Address [address] [place] [address] Care Team Providers Care Director Of Physical Education Name Role Phone Diego Gallagher Primary Care Provider Unav ailable Nancy Hardy Unavailable [phone] REASON FOR VISIT cx appt Encounters Encounter Location Date Provider Diagnosis [facility] [address] [place] [address] 04/09/2024 Nancy Hardy Plan Of Treatment No Information Progress Notes * Dinh BUCKLEY RDOB:[birth year] (69 yo M)Acc No.[id number]:04/09/2024 Patient:?Dinh BUCKLEY :1955???Age:69 Y???Sex:Male Address:[address] [place], [place] [address], [address] * true * Date:? Generated for Printi ng/Faxing/eTransmitting on:?05/11/2024 04:23 PM EDT
--- OUTSIDE RECORDS SUMMARY | 2024-05-11 16:24 | XMS_ITS | Patient Health Record ---
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 Problem Mononeuropathy of lower limb (513513591) Neuritis of right foot (G57.91) Active confirmed Problem 55036111 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 Problem Atherosclerosis of [place] artery of both lower extremities, with unspecified presence of clinical manifestation (I70.203) Active confirmed Problem 89455600746401450 Atherosclerosi s of artery of both lower extremities (I70.203) Active confirmed Problem 78381735924825961 Neuropathic ul cer of right foot with fat layer exposed (L97.512) Active confirmed Vital Signs Blood pressure diastolic 70 mm Hg 01/09/2024 Height 6ft 4in in 01/09/2024 Blood pressure systolic 132 mm Hg 01/09/2024 Weight 425 lbs 01/09/2024 BMI 51.73 kg/m2 01/09/2024 Encounters Encounter Location Date Provider Diagnosis [facility] [place] [address] [place] [address] 06/18/2023 Nancy Perica Atherosclerosis of [place] artery of both lower extremities, with unspecified presence of clinical manifestation I70.203 ; Neuropathy G62.9 ; Tinea unguium B35.1 ; Pain in right toe(s) M79.674 and Pain in left toe(s) M79.675 [facility] [address] [address] 01/09/2024 Nancy Hardy Neuropathy G62.9 ; Tinea unguium B35.1 ; Atherosclerosis of [place] artery of both lower extremities, with unspecified presence of clinical manifestation I70.203 ; Pain in right toe(s) M79.674 and Pain in left toe(s) M79.675 [facility] [address] 10/27/2023 Nancy Hardy [address] [address] 03/22/2024 Nancy Hardy [address] [address] 04/09/2024 Nancy Hardy Assessments Encounter Date Diagnosis (ICD Code) Assessment Notes Treatment Notes Treatment Clinical Notes Section Notes 06/18/2023 Atherosclerosis of [place] artery of both lower extremities, with unspecified presence of clinical manifestation (ICD-10 - I70.203) 01/09/2024 Tinea unguium (ICD-10 - B35.1) 01/09/2024 Neuropathy (ICD-10 - G62.9) 01/09/2024 Atherosclerosis of [place] artery of both lower extremities, with unspecified [...] Date Coverage End Date Medicare National [employer]t [employer] In[employer] [facility] [address] [place] [address] [id number] Dinh Craven Self - patient is the insured [employer] [address] [place] [address] [phone] [id number] Dinh Craven Self - patient is the insured Medical (General) History Medical History History ICD Code Arthritis asthma Back,Hip,and Knee pain Lung disease Neuropathy Poor circulation thyroid Chicken pox Joint implants/screws A fib Surgical History Surgery Date(Month/Year) knee replacement 2013 appendectomy 2015 rotator cuff 2019 Hospitalization History Reason Date(Month/Year) [facility]- 10 days - uti [facility]- chest pains, a fib
--- OUTSIDE RECORDS SUMMARY | 2024-05-11 16:24 | XMS_ITS | Encounter Summary ---
Author Organization [facility] Address [address] [place] [address] Care Team Providers Care Naphtha Washing System Operator Name Role Phone Venus Belcher MD Primary Care Provider + Encounter Details Date Type Department Care Team (Late st Contact Info) Description 04/18/2024 Lab Requisition [facility] Lab [address] [facility] [place] [address] Venus Belcher MD [address] [address] Cellulitis, unspecified Social History Tobacco Use Types [...] unspecified documented in this encounter Care Teams Naphtha Washing System Operator Relationship Specialty Start Date End Date Venus Belcher MD [address] [place] [phone] PCP - General Family Medicine 04/06/24 documented as of this encounter
--- OUTSIDE RECORDS SUMMARY | 2024-05-11 16:24 | XMS_ITS ---
Author Organization [facility] Address [address] [place] [address] Care Team Providers Care Inpatient Nursing Aide Name Role Phone Diego Gallagher Primary Care Provider Unav ailable Nancy Hardy Unavailable [phone] Encounters Encounter Location Date Provider Diagnosis [facility] [address] [place] [address] 04/13/2024 Nancy Hardy Plan Of Treatment No Information Progress Notes * Dinh BUCKLEY RDOB:[birth year] (69 yo M)Acc No.[id number]:04/13/2024 Progress Note Patient:?Dinh BUCKLEY Provider:?Nancy Hardy DPM :1955???Age:69 Y???Sex:Male Raj e:04/13/2024 Address:[address] [place] [address] [phone] Pcp:MARU Goldstein Subjective: * Chief Complaints: * ??? * Medical History:? Objective: * Vitals:? Assessment: Plan: * Treatment: * Images: * The named appointment provid er may or may not be the originator of this progress note, and it is not deemed complete until electronically signed by the appointment provider. Sign off status: Pending * Provider:?Nancy Hardy DPM Date:?02/ Generated for Katlin ramirez/Cece/Jemima on:?05/11/2024 04:23 PM EDT
--- OUTSIDE RECORDS SUMMARY | 2024-05-11 16:24 | XMS_ITS | Encounter Summary ---
Author Organization [facility] Address [address] [place] [address] Care Team Providers Care Photostat Operator Name Role Phone Venus Belcher MD Primary Care Provider + Encounter Details Date Type Department Care Team (Late st Contact Info) Description 04/13/2024 Lab Requisition [facility] - Main Lab 299 [facility] [place] [address] Venus Belcher MD [address] [address] Cellulitis, unspecified Social History Tobacco Use Types [...] unspecified documented in this encounter Care Teams Photostat Operator Relationship Specialty Start Date End Date Venus Belcher MD [address] [place] [address] [phone] PCP - General Family Medicine 04/06/24 documented as of this encounter
--- OUTSIDE RECORDS SUMMARY | 2024-05-11 16:24 | XMS_ITS | Encounter Summary ---
Author Organization [facility] Address [address] [place] [address] Care Team Providers Care Heel Edge Inker Machine Name Role Phone Venus Belcher MD Primary Care Provider + Encounter Details Date Type Department Care Team (Late st Contact Info) Description 04/25/[address] [facility] - Main Lab 299 [facility] [place] [address] Venus Belcher MD [address] [address] Cellulitis, unspecified Social History Tobacco Use Types [...] unspecified documented in this encounter Care Teams Heel Edge Inker Machine Relationship Specialty Start Date End Date Venus Belcher MD [address] [place] [address] [phone] PCP - General Family Medicine 04/06/24 documented as of this encounter
== END 2024-05-11 14:21 | disposition home or self-care (01) ==
LOC: HO.ENCR 13:25
PROVIDERS: PCP Nurse Practitioner Family; Visit Provider Internal Medicine Endocrinology, Diabetes & Metabolism
DX: R79.89 Other specified abnormal findings of blood chemistry (principal)
CPT/HCPCS: 99213

== ENCOUNTER → 2024-05-11 13:24 | Outpatient (BNVA) | payer MEDICARE, SELFPAY | PROVIDERS: PCP Nurse Practitioner Family; Visit Provider Internal Medicine Endocrinology, Diabetes & Metabolism | DX: E05.00 Thyrotoxicosis with diffuse goiter without thyrotoxic crisis or storm (principal); R79.89 Other specified abnormal findings of blood chemistry; Z79.899 Other long term (current) drug therapy | CPT/HCPCS: 99212 ==

== ENCOUNTER 2024-05-17 15:05 | Outpatient (REF) | payer MEDICARE, SELFPAY ==
[2024-05-17 16:18] LABS: MANUAL DIFF FLAG NO
[2024-05-17 16:20] LABS: Appearance Urine Clear; Color Urine Yellow; Glucose Urine UA Negative (Negative); Leukocyte Esterase Urine Trace (Negative); Nitrite Urine Negative (Negative); PH 5.5 (5.0-9.0); Specific Gravity - Urine 1.015 (1.005-1.025); UMIC TRIGGER UACC YES; Urine Blood Negative (Negative); Urine Ketones Negative (Negative); Urine Protein Negative (Neg-Trace)
[2024-05-17 16:25] LABS: Bacteria Urine None Seen (None Seen); Hyaline Casts Urine 0-2 /LPF (0-2); RBC Urine 0-2 /HPF (0-2); Squamous Epithelial Cell Urine 0-2 /HPF (0-2); UACC Culture Trigger YES
[2024-05-17 16:29] LABS: Basophils Absolute Auto 0.1 X10*3/uL (0.0-0.2); Basophils Percent Auto 0.6 % (0-2); Eosinophils Absolute Auto 0.4 X10*3/uL (0.0-0.4); Eosinophils Percent Auto 4.1 % (0-4); Hematocrit 36.6 % (42.0-52.0); Imm Gran Abs Auto 0.03 X10*3/uL (0.00-0.03); Imm Gran Pct Auto 0.3 % (0.0-0.4); Lymphocytes Absolute Auto 2.2 X10*3/uL (1.2-4.9); Lymphocytes Percent Auto 24.6 % (20-40); Mean Corpuscular HGB Conc 32.8 g/dl (31.0-36.0); Mean Corpuscular Hemoglobin 32.4 pg (27.0-33.0); Mean Corpuscular Volume 98.9 fL (80.0-98.0); Mean Platelet Volume 9.7 fL (9.4-12.4); Monocytes Absolute Auto 0.7 X10*3/uL (0.1-1.2); Monocytes Percent Auto 7.5 % (2-11); Neutrophils Absolute Auto 5.6 x10*3/uL (2.0-8.3); Neutrophils Percent Auto 62.9 % (45-73); Platelet Count 280 X10*3/uL (160-400); Red Cell Distribution Width 16.5 % (11.0-16.0); White Blood Count 8.8 X10*3/uL (4.8-10.8)
[2024-05-17 16:59] LABS: Anion Gap 12 (12-20); Blood Urea Nitrogen 18 mg/dL (9-16); Calcium 9.3 mg/dL (8.4-10.2); Carbon Dioxide 27 mmol/L (22-29); Chloride 104 mmol/L (96-108); Estimated Glomerular Filt Rate > 60; Glucose Random 100 mg/dL (60-115); Potassium 4.1 mmol/L (3.3-5.1); Sodium 139 mmol/L (135-145)
--- OUTSIDE RECORDS SUMMARY | 2024-05-17 17:02 | XMS_ITS | Patient Health Record ---
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 Problem Mononeuropathy of lower limb (842545658) Neuritis of right foot (G57.91) Active confirmed Problem 27799125 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 Problem Atherosclerosis of [place] artery of both lower extremities, with unspecified presence of clinical manifestation (I70.203) Active confirmed Problem [id number] Atherosclerosi s of artery of both lower extremities (I70.203) Active confirmed Problem [id number] Neuropathic ul cer of right foot with fat layer exposed (L97.512) Active confirmed Vital Signs Blood pressure diastolic 70 mm Hg 01/09/2024 Height 6ft 4in in 01/09/2024 Blood pressure systolic 132 mm Hg 01/09/2024 Weight 425 lbs 01/09/2024 BMI 51.73 kg/m2 01/09/2024 Encounters Encounter Location Date Provider Diagnosis [facility] [place] [address] [place] [address] 06/18/2023 Nancy Perica Atherosclerosis of [place] artery of both lower extremities, with unspecified presence of clinical manifestation I70.203 ; Neuropathy G62.9 ; Tinea unguium B35.1 ; Pain in right toe(s) M79.674 and Pain in left toe(s) M79.675 [facility] [address] [address] 01/09/2024 Nancy Hardy Neuropathy G62.9 ; Tinea unguium B35.1 ; Atherosclerosis of [place] artery of both lower extremities, with unspecified presence of clinical manifestation I70.203 ; Pain in right toe(s) M79.674 and Pain in left toe(s) M79.[address] [facility] [address] 10/27/2023 Nancy Hardy [address] [address] 03/22/2024 Nancy Hardy [address] [address] 04/09/2024 Nancy Hardy Assessments Encounter Date Diagnosis (ICD Code) Assessment Notes Treatment Notes Treatment Clinical Notes Section Notes 06/18/2023 Atherosclerosis of [place] artery of both lower extremities, with unspecified presence of clinical manifestation (ICD-10 - I70.203) 01/09/2024 Tinea unguium (ICD-10 - B35.1) 01/09/2024 Neuropathy (ICD-10 - G62.9) 01/09/2024 Atherosclerosis of [place] artery of both lower extremities, with unspecified [...] Date Coverage End Date Medicare National Govt Return Path [facility] [address] [place] [address] [id number] Dinh Craven Self - patient is the insured [employer] [address] [place] [address] [id number] Dinh Craven Self - patient is the insured Medical (General) History Medical History History ICD Code Arthritis asthma Back,Hip,and Knee pain Lung disease Neuropathy Poor circulation thyroid Chicken pox Joint implants/screws A fib Surgical History Surgery Date(Month/Year) knee replacement 2013 appendectomy 2015 rotator cuff 2019 Hospitalization History Reason Date(Month/Year) [facility]- 10 days - [place] [facility]- chest pains, a fib
--- OUTSIDE RECORDS SUMMARY | 2024-05-17 17:02 | XMS_ITS | Encounter Summary ---
Author Organization [facility] Address [address] [place] [address] Care Team Providers Care Vice President Corporate Communications Name Role Phone Venus Belcher MD Primary Care Provider + Encounter Details Date Type Department Care Team (Late st Contact Info) Description 04/06/2024 Lab Requisition [facility] - Main Lab [address] [place] [address] Venus Belcher MD 8[address] [facility] 1 [place], [place] [phone] Cellulitis, unspecified Social History Tobacco Use Types [...] LAB CHEMISTRY METHOD 04/06/2024 11:35 AM EST [facility] Potassium 4.5 3.5 - 5.5 mmol/L LAB CHEMISTRY METHOD 04/06/2024 11:35 AM EST [facility] Comment:Hemolysis present Chloride 94(L) 96 - 110 mmol/L LAB CHEMISTRY METHOD 04/06/2024 11:35 AM [facility] CO2 23 21 - 32 mmol/L LAB CHEMISTRY METHOD 04/06/2024 11:35 AM [facility] Anion Gap 12(H) 3 - 11 LAB CHEMISTRY METHOD 04/06/2024 11:35 AM [facility] Glucose 112(H) 70 - 100 mg/dL LAB CHEMISTRY METHOD 04/06/2024 11:35 AM [facility] BUN 12 5 - 25 mg/dL LAB CHEMISTRY METHOD 04/06/2024 11:35 AM [facility] Creatinine 1.03 0.70 - 1.30 mg/dL LAB CHEMISTRY METHOD 04/06/2024 11:35 AM [facility] eGFR 80 >=60 mL/min/1. 73m2 LAB CHEMISTRY METHOD 04/06/2024 11:35 AM [facility] Comment:Calculation based on the??Chronic Kidney Disease Epidemiology Collaboration (CKD-EPI) equation refit??without adjustment for race. BUN/Creatinine Ratio 11.7 LAB CHEMISTRY METHOD 04/06/2024 11:35 AM [facility] Calcium 8.9 8.5 - 10.5 mg/dL LAB CHEMISTRY METHOD 04/06/2024 11:35 AM [facility] AST (SGOT) 42 10 - 42 unit/L LAB CHEMISTRY METHOD 04/06/2024 11:35 AM [facility] Comment:Hemolysis present ALT (SGPT) 30 10 - 60 unit/L LAB CHEMISTRY METHOD 04/06/2024 11:35 AM [facility] Alkaline Phosphatase 75 42 - 121 unit/L LAB CHEMISTRY METHOD 04/06/2024 11:35 AM [facility] Total Protein 6.8 6.0 - 8.0 g/dL LAB CHEMISTRY METHOD 04/06/2024 11:35 AM [facility] Albumin 2.1(L) 3.2 - 5.0 g/dL LAB CHEMISTRY METHOD 04/06/2024 11:35 AM [facility] Total Bilirubin 1.3 0.0 - 1.4 mg/dL LAB CHEMISTRY METHOD 04/06/2024 11:35 AM EST [facility] Blood Venous blood specimen / Unknown Venipuncture / Unknown 04/06/2024 9:00 AM EST 04/06/2024 9:48 AM EST us Venus Belcher MD LAB BLOOD ORDERABLES Fin al Result [facility] [address] [place] [address], documented in this encounter Visit Diagnoses Diagnosis Cellulitis, unspecified documented in this encounter Care Teams Vice President Corporate Communications Relationship Specialty Start Date End Date Venus Belcher MD [address] [place] [phone] PCP - General Family Medicine 04/06/24 documented as of this encounter
--- OUTSIDE RECORDS SUMMARY | 2024-05-17 17:02 | XMS_ITS | Clinical Summary ---
Author Organization [address] Address [address] [place] [address] Phone Care Team Providers Care Laundry Tub Maker Name Role Phone Venus Belcher MD Primary Care Provider + Encounters Date Type Department Care Team Description 04/25/2024 Lab Requisition [facility] [address] [place] [phone] Venus Belcher MD Cellulitis, unspecified 04/18/2024 Lab Requisition [facility] [address] [place] [phone] Veuns Belcher MD Cellulitis, unspecified 04/13/2024 Lab Requisition [facility] [address] [place] [address] Venus Belcher MD Cellulitis, unspecified 04/06/2024 Lab Requisition [facility] [address] [place] [phone] Venus Belcher MD Cellulitis, unspecified 04/06/2024 Lab Requisition [facility] [address] [place] [phone] Venus Belcher MD Cellulitis, unspecified from Last [...] PM EST) WBC 15.1(H) 4.8 - 10.8 K/[facility] LAB HEMETOLOGY METHOD 04/06/2024 3:24 PM [facility] RBC 3.30(L) 4.50 - 5.50 M/mcL LAB HEMETOLOGY METHOD 04/06/2024 3:24 PM [facility] Hemoglobin 10.9(L) 13.5 - 17.5 g/dL LAB HEMETOLOGY METHOD 04/06/2024 3:24 PM [facility] LAB Hematocrit 32.9(L) 42.0 - 54.0 % LAB HEMETOLOGY METHOD 04/06/2024 3:24 PM [facility] LAB MCV 98.5(H) 79.0 - 98.0 FL LAB HEMETOLOGY METHOD 04/06/2024 3:24 PM [facility] LAB MCH 32.6(H) 27.0 - 32.0 pcg LAB HEMETOLOGY METHOD 04/06/2024 3:24 PM [facility] LAB MCHC 33.1 32.0 - 37.0 g/dL LAB HEMETOLOGY METHOD 04/06/2024 3:24 PM [facility] RDW 13.9 11.0 - 15.0 % LAB HEMETOLOGY METHOD 04/06/2024 3:24 PM [facility] Platelets 476(H) 130 - 400 K/mcL LAB HEMETOLOGY METHOD 04/06/2024 3:24 PM [facility] MPV 9.8 7.0 - 11.0 FL LAB HEMETOLOGY METHOD 04/06/2024 3:24 PM [facility] NRBC 0.0 <1.0 % LAB [...] Result [facility] [address] [place] [address], * (ABNORMAL) Comprehensive metabolic panel (04/06/2024 9:00 AM EST) Pathologist [facility] Sodium 129(L) 133 - 145 mmol/L LAB CHEMISTRY METHOD 04/06/2024 11:35 AM [facility] Potassium 4.5 3.5 - 5.5 mmol/L LAB CHEMISTRY METHOD 04/06/2024 11:35 AM [facility] LAB Comment:Hemolysis present Chloride 94(L) 96 - 110 mmol/L LAB CHEMISTRY METHOD 04/06/2024 11:35 AM [facility] CO2 23 21 - 32 mmol/L LAB CHEMISTRY METHOD 04/06/2024 11:35 AM [facility] Anion Gap 12(H) 3 - 11 LAB CHEMISTRY METHOD 04/06/2024 11:35 AM [facility] Glucose 112(H) 70 - 100 mg/dL LAB CHEMISTRY METHOD 04/06/2024 11:35 AM [facility] BUN 12 5 - 25 mg/dL LAB CHEMISTRY METHOD 04/06/2024 11:35 AM [facility] Creatinine 1.03 0.70 - 1.30 mg/dL LAB CHEMISTRY METHOD 04/06/2024 11:35 AM [facility] eGFR 80 >=60 mL/min/1. 73m2 LAB CHEMISTRY METHOD 04/06/2024 11:35 AM [facility] Comment:Calculation based on the??Chronic Kidney Disease Epidemiology Collaboration (CKD-EPI) equation refit??without adjustment for race. BUN/Creatinine Ratio 11.7 LAB CHEMISTRY METHOD 04/06/2024 11:35 AM [facility] Calcium 8.9 8.5 - 10.5 mg/dL LAB CHEMISTRY METHOD 04/06/2024 11:35 AM [facility] AST (SGOT) 42 10 - 42 unit/L LAB CHEMISTRY METHOD 04/06/2024 11:35 AM [facility] Comment:Hemolysis present ALT (SGPT) 30 10 - 60 unit/L LAB CHEMISTRY METHOD 04/06/2024 11:35 AM [facility] Alkaline Phosphatase 75 42 - 121 unit/L LAB CHEMISTRY METHOD 04/06/2024 11:35 AM [facility] Total Protein 6.8 6.0 - 8.0 g/dL LAB CHEMISTRY METHOD 04/06/2024 11:35 AM [facility] Albumin 2.1(L) 3.2 - 5.0 g/dL LAB CHEMISTRY METHOD 04/06/2024 11:35 AM [facility] Total Bilirubin 1.3 0.0 - 1.4 mg/dL LAB CHEMISTRY METHOD 04/06/2024 11:35 AM [facility] Blood Venous blood specimen / Unknown Venipuncture / Unknown 04/06/2024 9:00 AM EST 04/06/2024 9:48 AM EST us Venus Belcher MD LAB BLOOD ORDERABLES Fin al Result [facility] [address] [place] [address], from Last 3 Months Insurance MEDICARE [facility] Advance Directives Documents on File Type Date Recorded Patient Board Mixer Tender Expl anation Health Care Decision (hx) 04/17/2016 AD [place] DIRECTIVE Health Care Decision (hx) 04/17/2016 AD [place] DIRECTIVE Health Care Decision (hx) 04/17/2016 AD [place] DIRECTIVE Health Care Decision (hx) 04/17/2016 AD [place] DIRECTIVE Care Teams Laundry Tub Maker Relationship Specialty Start Date End Date Venus Belcher MD [address] [place] [address] PCP - General Family Medicine 04/06/24
--- OUTSIDE RECORDS SUMMARY | 2024-05-17 17:02 | XMS_ITS | Encounter Summary ---
Author Organization [facility] Address [address] [place] [address] Care Team Providers Care Scoring Machine Operator Name Role Phone Venus Belcher MD Primary Care Provider + Encounter Details Date Type Department Care Team (Late st Contact Info) Description 04/13/2024 Lab Requisition [facility] - Main Lab 299 [facility] [place] [address] Venus Belcher MD [address] [address] Cellulitis, unspecified Social History Tobacco Use Types [...] unspecified documented in this encounter Care Teams Scoring Machine Operator Relationship Specialty Start Date End Date Venus Belcher MD [address] [place] [address] [phone] PCP - General Family Medicine 04/06/24 documented as of this encounter
--- OUTSIDE RECORDS SUMMARY | 2024-05-17 17:02 | XMS_ITS | Encounter Summary ---
Author Organization [facility] Address [address] [place] [address] Care Team Providers Care Salt Manager Name Role Phone Venus Belcher MD Primary Care Provider + Encounter Details Date Type Department Care Team (Late st Contact Info) Description 04/06/2024 Lab Requisition [facility] - Main Lab [address] [place] [address] Venus Belcher MD 819 [facility] 1 [place], [place] [phone] Cellulitis, unspecified Social History Tobacco Use Types [...] LAB HEMETOLOGY METHOD 04/06/2024 3:24 PM EST [facility] RBC 3.30(L) 4.50 - 5.50 M/mcL LAB HEMETOLOGY METHOD 04/06/2024 3:24 PM EST [facility] Hemoglobin 10.9(L) 13.5 - 17.5 g/dL LAB HEMETOLOGY METHOD 04/06/2024 3:24 PM EST [facility] Hematocrit 32.9(L) 42.0 - 54.0 % LAB HEMETOLOGY METHOD 04/06/2024 3:24 PM [facility] LAB MCV 98.5(H) 79.0 - 98.0 FL LAB HEMETOLOGY METHOD 04/06/2024 3:24 PM [facility] LAB MCH 32.6(H) 27.0 - 32.0 pcg LAB HEMETOLOGY METHOD 04/06/2024 3:24 PM EST [facility] LAB MCHC 33.1 32.0 - 37.0 g/dL LAB HEMETOLOGY METHOD 04/06/2024 3:24 PM [facility] LAB RDW 13.9 11.0 - 15.0 % LAB HEMETOLOGY METHOD 04/06/2024 3:24 PM [facility] LAB Platelets 476(H) 130 - 400 K/mcL LAB HEMETOLOGY METHOD 04/06/2024 3:24 PM EST [facility] LAB MPV 9.8 7.0 - 11.0 FL LAB HEMETOLOGY METHOD 04/06/2024 3:24 PM EST [facility] LAB NRBC 0.0 <1.0 % LAB HEMETOLOGY METHOD 04/06/2024 3:24 PM [facility] LAB NRBC Absolute 0.00 <0.10 K/mcL LAB HEMETOLOGY METHOD 04/06/2024 3:24 PM [facility] LAB Blood Venous blood specimen / Unknown Venipuncture / Unknown 04/06/2024 1:21 PM EST 04/06/2024 2:57 PM EST us Venus Belcher MD LAB BLOOD ORDERABLES Fin al Result [facility] [address] [place] [address], documented in this encounter Visit Diagnoses Diagnosis Cellulitis, unspecified documented in this encounter Care Teams Salt Manager Relationship Specialty Start Date End Date Venus Belcher MD [address] [address] PCP - General Family Medicine 04/06/24 documented as of this encounter
--- OUTSIDE RECORDS SUMMARY | 2024-05-17 17:02 | XMS_ITS ---
Author Organization [facility] Address [address] [place] [address] Care Team Providers Care Microfilm Processor Name Role Phone Diego Gallagher Primary Care Provider Unav ailable Nancy Hardy Unavailable [phone] REASON FOR VISIT cx appt Encounters Encounter Location Date Provider Diagnosis [facility] [address] [place] [address] 04/09/2024 Nancy Hardy Plan Of Treatment No Information Progress Notes * Dinh BUCKLEY RDOB:[birth year] (69 yo M)Acc No.[id number]:04/09/2024 Patient:?Dinh BUCKLEY :1955???Age:69 Y???Sex:Male Address:[address] [place], [place] [address], [address] * true * Date:? Generated for Printi ng/Faxing/eTransmitting on:?05/17/2024 05:02 PM EDT
--- OUTSIDE RECORDS SUMMARY | 2024-05-17 17:02 | XMS_ITS ---
Author Organization [facility] Address [address] [facility] [place] [address] Care Team Providers Care Procedural Nurse Name Role Phone Diego Gallagher Primary Care Provider Unav ailable MohamudguillermoNancy Unavailable [phone] Medications Medication SIG (Take, Route, Frequency, Duration) [...] Active Encounters Encounter Location Date Provider Diagnosis [facility] [place] [address] [place] [address] 03/24/2024 Nancy Hardy Plan Of Treatment No Information Progress Notes * Dinh BUCKLEY RDOB:[birth year] (69 yo M)Acc No.[id number]:03/24/2024 Progress Note Patient:?Dinh BUCKLEY Provider:?Nancy Hardy DPM :1955???Age:69 Y???Sex:Male Raj e:03/24/2024 Address:[address] [place], [place] [id number] Pcp:MARU Goldstein Subjective: * Chief Complaints: * [...] Hardy DPM Date:?06/2024 Generated for Katlin ramirez/Cece/Jemima on:?05/17/2024 05:01 PM EDT
--- OUTSIDE RECORDS SUMMARY | 2024-05-17 17:02 | XMS_ITS ---
Author Organization [facility] Address [address] [place] [address] Care Team Providers Care Shop Mechanic Name Role Phone Diego Gallagher Primary Care Provider Unav ailable Nancy Hardy Unavailable [phone] Encounters Encounter Location Date Provider Diagnosis [facility] [address] [place] [address] 04/13/2024 Nancy Hardy Plan Of Treatment No Information Progress Notes * Dinh BUCKLEY RDOB:[birth year] (69 yo M)Acc No.[id number]:04/13/2024 Progress Note Patient:?Dinh BUCKLEY Provider:?Nancy Hardy DPM :1955???Age:69 Y???Sex:Male Raj e:04/13/2024 Address:[address] [place] [address] [phone] Pcp:MARU Goldstein Subjective: * Chief Complaints: * ??? * Medical History:? Objective: * Vitals:? Assessment: Plan: * Treatment: * Images: * The named appointment provid er may or may not be the originator of this progress note, and it is not deemed complete until electronically signed by the appointment provider. Sign off status: Pending * Provider:?Nancy Hardy DPM Date:?02/ Generated for Katlin ramirez/Cece/Jemima on:?05/17/2024 05:02 PM EDT
--- OUTSIDE RECORDS SUMMARY | 2024-05-17 17:02 | XMS_ITS | Encounter Summary ---
Author Organization [facility] Address [address] [place] [address] Care Team Providers Care Deboner Name Role Phone Venus Belcher MD Primary Care Provider + Encounter Details Date Type Department Care Team (Late st Contact Info) Description 04/18/2024 Lab Requisition [facility] - Main Lab [address] [facility] [place] [address] Venus Belcher MD [address] [address] Cellulitis, unspecified Social History Tobacco Use Types [...] unspecified documented in this encounter Care Teams Deboner Relationship Specialty Start Date End Date Venus Belcher MD [address] [place] [phone] PCP - General Family Medicine 04/06/24 documented as of this encounter
--- OUTSIDE RECORDS SUMMARY | 2024-05-17 17:02 | XMS_ITS | Encounter Summary ---
Author Organization [facility] Address [address] [place] [address] Care Team Providers Care Pipe Line Walker Name Role Phone Venus Belcher MD Primary Care Provider + Encounter Details Date Type Department Care Team (Late st Contact Info) Description 04/25/2024 Lab Requisition [facility] - Main Lab 299 [facility] [place] [address] Venus Belcher MD [address] [address] Cellulitis, unspecified Social History Tobacco Use Types [...] unspecified documented in this encounter Care Teams Pipe Line Walker Relationship Specialty Start Date End Date Venus Belcher MD [address] [place] [address] [phone] PCP - General Family Medicine 04/06/24 documented as of this encounter
[2024-05-17 17:10] LABS: Alanine Aminotransferase 6 U/L (0-40); Albumin Level 3.6 g/dL (3.5-5.0); Alkaline Phosphatase 81 U/L (39-117); Anion Gap 12 (12-20); Aspartate Amino Transferase 21 U/L (5-37); Bilirubin Total 0.7 mg/dL (0.0-1.0); Blood Urea Nitrogen 19 mg/dL (9-16); Calcium 9.3 mg/dL (8.4-10.2); Carbon Dioxide 27 mmol/L (22-29); Chloride 103 mmol/L (96-108); Estimated Glomerular Filt Rate > 60; Glucose Random 101 mg/dL (60-115); Iron 48 mcg/dL (45-160); Percent Iron Saturation 22 % (15-50); Potassium 4.1 mmol/L (3.3-5.1); Sodium 138 mmol/L (135-145); Total Iron Binding Capacity 217 mcg/dL (228-428); Total Protein 7.3 g/dL (6.5-8.0); Unsaturated Iron Binding 169 ug/dL
[2024-05-17 17:29] LABS: TSH reflex Free T4 0.92 uIU/mL (0.32-4.0)
[2024-05-17 18:02] LABS: Ferritin 253 ng/mL (20-250)
== END 2024-05-17 15:06 | disposition home or self-care (01) ==
LOC: HO.HMGCLDS 15:05
PROVIDERS: Internal Medicine Hypertension Specialist; PCP Nurse Practitioner Family; Referring Provider Internal Medicine; Visit Provider Nurse Practitioner Family
DX: D64.9 Anemia, unspecified (principal); N17.9 Acute kidney failure, unspecified; E87.6 Hypokalemia; R39.9 Unspecified symptoms and signs involving the genitourinary system
CPT/HCPCS: 36415; 80048; 80053; 81001; 82728; 83540; 84443; 85025; 87086

== ENCOUNTER 2024-05-27 10:13 | Outpatient (AMB) | payer MEDICARE, SELFPAY ==
--- NOTE | 2024-05-27 10:36 | A.OFFVIS_ITS ---
Intake Visit Reasons: 6M f/u Intake Note: Patient is present for 6M F/U Urology Medication:DOXAZOSIN,FINASTERIDE,VITAMIN C, METHENAMINE,OXYBUTYNIN Antibiotic Allergy:NONE Blood Thinner:NONE Receiver Required: No Allergies No Known Allergies [No Known Allergies*] Allergy (Verified 05/27/24 10:38) HPI Comments Details: Dinh is a very pleasant male. He is a patient of Dr. Chong. He is seen for the following urologic conditions - chronic cystitis - lower urinary tract symptoms Regular follow-up - has started to notice some improvement with his bladder - still with occasional pain after urinating Refill medications Discussed use of GLP 1 in setting of morbid obesity and sleep apnea Late November/Early December UTI with E coli resistant to Bactrim and ampicillin Placed on vitamin C and methenamine for suppression Background CHF, COPD Lower urinary tract symptoms - predominant urgency Did notice improved stream with doxazosin 8 mg and finasteride Still with urge - responsive to myrbetriq Has been using oxybutynin Hematuria: Chronic cystitis on prior biopsy Episode of marked hematuria October 2020 Microscopic hematuria was diagnosed during routine UA. They are here for the cystoscopy and discussion of imaging findings. Since the last visit the patient has has not noticed gross hematuria, continues to test positive for microscopic hematuria. Relevant medical history for no pertinent medical history. PSA 01/07 1.6, 05/09 1.3 Radiographic imaging: CT KUB NAD - bilateral renal cyst. Cystoscopy findings September 2018 chronic cystitis. Therapeutic plan follow-up in 6 months [facility] Medical History (Updated 04/29/24 @ 15:21 by Savanna Andujar MD) JEFFRY on CPAP Anemia Chronic diastolic heart failure Sepsis COPD (chronic obstructive pulmonary disease) Acute respiratory failure due to COVID-19 Community acquired pneumonia Viral sepsis Fatigue Acute on chronic diastolic CHF (congestive heart failure) COVID Morbid obesity Paroxysmal atrial fibrillation Congestive heart failure Testicular swelling Osteoarthritis of right knee Melanoma History of cardioversion Hereditary lymphedema Venous insufficiency Morbid obesity Lymphedema COPD (chronic obstructive pulmonary disease) Sensory neuropathy COVID-19 Respiratory failure with hypoxia Restrictive lung disease MATUTE (dyspnea on exertion) Chronic cystitis Bladder outlet obstruction Restless leg syndrome Traumatic complete tear of right rotator cuff Injury of right rotator cuff History of diverticulitis History of umbilical hernia Surgical History Hx of colonoscopy History of appendectomy History of arthroscopy of left knee Family History Father Arthritis Diabetes Mother Arthritis Kidney stones Family/Other Arthritis Sister No problems noted. Sister No problems noted. Son No problems noted. Social History Household Members: Spouse Household Members Other:: Housing: Condominium Do you presently have visiting nurse or other home services: Yes Unable to assess alcohol history related to: Unknown Alcohol intake: current Alcohol intake frequency: holidays/special occasions only Alcohol type: beer Comment: Refused bed alarm due to alarm sensitivity when changing positions. 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 Cognitive needs: No Hearing needs: No Vision needs: No Review of Systems Const Denies chills and Denies fever(s) Card Reports no additional complaints and Denies syncope Resp Denies cough GI Denies abdominal pain and Denies heartburn Reports as per HPI and Denies change in libido Neuro Denies syncope Psych Denies change in libido Endo Denies change in libido Physical Exam Const General: cooperative, healthy appearing, comfortable and no acute distress Orientation/consciousness: patient oriented x3 HEENT Face and sinus: Yes normal facial exam Mouth: moist mucous membranes Neck Neck: Yes normal visual inspection, Yes full ROM and Yes trachea midline Chest Chest palpation & inspection: normal inspection of the chest Resp Effort & Inspection: normal respiratory effort, able to speak in complete sentences and no respiratory distress GI Inspection: Yes normal to inspection Back/Spine/Pelvis Cervical Spine: normal cervical lordosis Thoracic/Lumbar Spine: thoracic and lumbar spine normal to inspection Skin General skin exam: no rashes or lesions noted Neuro General: patient oriented x3, gait normal, tone normal and moves all extremities Extrem General: Yes normal to inspection and Yes capillary refill normal Results AMB Urinalysis, Automated UA Leukoctes 0 Melinda/uL Last Edit by LUZ Hoover on 05/27/24 11:13 UA Nitrite Negative Last Edit by LUZ Hoover on 05/27/24 11:13 UA Urobilinogen 0.2 mg/dL Last [facility] on 05/27/[facility] 11:1 3 UA Protein 0 mg/dL Last Edit by Vinod Barkley [facility] on 05/27/24 11:13 UA pH 7.0 Last Edit by Vinod Barkley [facility] on 05/27/24 11:13 UA Blood 0 Deepak/uL Last Edit by Vinod Barkley [facility] on 05/27/24 11:13 UA Specific [place] 1.010 Last Edit by [facility] on 05/27/24 11: 13 UA Ketone Negative Last Edit by Vinod Barkley [facility] on 05/27/24 11:13 UA Bilirubin 0 mg/dL Last Edit by Vinod Barkley [facility] on 05/27/24 11:13 UA Glucose 0 mg/dL Last Edit by Vinod Barkley [facility] on 05/27/24 11:13 Assessment & Plan Assessment & Plan (1) Chronic cystitis: Code(s): N30.20 - Other chronic cystitis without hematuria Category: Medical (2) Bladder outlet obstruction: Code(s): N32.0 - Bladder-neck obstruction Category: Medical (3) Overactive bladder: Code(s): N32.81 - Overactive bladder Category: Medical Orders: Orders AMB Urinalysis Automated Today Z13.9 - Encounter for screening, unspecified Medications: Changed From oxybutynin chloride ER 10 mg PO DAILY@1999 To oxybutynin chloride ER 10 mg PO ONCE 90 days 90 tabs 1RF Refilled finasteride 5 mg PO DAILY 90 days 90 tabs 1RF doxazosin 8 mg PO BEDTIME 90 days 90 tabs 1RF ascorbic acid (vitamin C) 1 g PO DAILY 90 days 90 tabs 1RF N39.0 - Urinary tract infection, site not specified methenamine hippurate 1 g PO DAILY 90 days 90 tabs 1RF N39.0 - Urinary tract infection, site not specified Coding Diagnoses Chronic cystitis N30.20 Bladder outlet obstruction N32.0 Overactive bladder N32.81
--- OUTSIDE RECORDS SUMMARY | 2024-05-27 11:57 | XMS_ITS | Encounter Summary ---
Author Organization [facility] Address [address] [place] [address] Care Team Providers Care Supervisor Car Installations Name Role Phone Venus Belcher MD Primary Care Provider + Encounter Details Date Type Department Care Team (Late st Contact Info) Description 04/06/2024 Lab Requisition [facility] - Main Lab [address] [place] [address] Venus Belcher MD [address] [facility] 1 [place], [place] [phone] Cellulitis, unspecified Social History Tobacco Use Types [...] LAB CHEMISTRY METHOD 04/06/2024 11:35 AM EST [facility] Potassium 4.5 3.5 - 5.5 mmol/L LAB CHEMISTRY METHOD 04/06/2024 11:35 AM EST [facility] Comment:Hemolysis present Chloride 94(L) 96 - 110 mmol/L LAB CHEMISTRY METHOD 04/06/2024 11:35 AM [facility] CO2 23 21 - 32 mmol/L LAB CHEMISTRY METHOD 04/06/2024 11:35 AM [facility] Anion Gap 12(H) 3 - 11 LAB CHEMISTRY METHOD 04/06/2024 11:35 AM [facility] Glucose 112(H) 70 - 100 mg/dL LAB CHEMISTRY METHOD 04/06/2024 11:35 AM [facility] BUN 12 5 - 25 mg/dL LAB CHEMISTRY METHOD 04/06/2024 11:35 AM [facility] Creatinine 1.03 0.70 - 1.30 mg/dL LAB CHEMISTRY METHOD 04/06/2024 11:35 AM [facility] eGFR 80 >=60 mL/min/1. 73m2 LAB CHEMISTRY METHOD 04/06/2024 11:35 AM [facility] Comment:Calculation based on the??Chronic Kidney Disease Epidemiology Collaboration (CKD-EPI) equation refit??without adjustment for race. BUN/Creatinine Ratio 11.7 LAB CHEMISTRY METHOD 04/06/2024 11:35 AM [facility] Calcium 8.9 8.5 - 10.5 mg/dL LAB CHEMISTRY METHOD 04/06/2024 11:35 AM [facility] AST (SGOT) 42 10 - 42 unit/L LAB CHEMISTRY METHOD 04/06/2024 11:35 AM [facility] Comment:Hemolysis present ALT (SGPT) 30 10 - 60 unit/L LAB CHEMISTRY METHOD 04/06/2024 11:35 AM [facility] Alkaline Phosphatase 75 42 - 121 unit/L LAB CHEMISTRY METHOD 04/06/2024 11:35 AM [facility] Total Protein 6.8 6.0 - 8.0 g/dL LAB CHEMISTRY METHOD 04/06/2024 11:35 AM [facility] Albumin 2.1(L) 3.2 - 5.0 g/dL LAB CHEMISTRY METHOD 04/06/2024 11:35 AM [facility] Total Bilirubin 1.3 0.0 - 1.4 mg/dL LAB CHEMISTRY METHOD 04/06/2024 11:35 AM EST [facility] Blood Venous blood specimen / Unknown Venipuncture / Unknown 04/06/2024 9:00 AM EST 04/06/2024 9:48 AM EST us Venus Belcher MD LAB BLOOD ORDERABLES Fin al Result [facility] [address] [place] [address], documented in this encounter Visit Diagnoses Diagnosis Cellulitis, unspecified documented in this encounter Care Teams Supervisor Car Installations Relationship Specialty Start Date End Date Venus Belcher MD [address] [place] [phone] PCP - General Family Medicine 04/06/24 documented as of this encounter
--- OUTSIDE RECORDS SUMMARY | 2024-05-27 11:57 | XMS_ITS | Encounter Summary ---
Author Organization [facility] Address [address] [place] [phone] Care Team Providers Care Revenue Specialist Name Role Phone Venus Belcher MD Primary Care Provider + Encounter Details Date Type Department Care Team (Late st Contact Info) Description 04/25/2024 Lab Requisition [facility] - Main Lab [address] [facility] [place] [address] Venus Belcher MD [address] [address] Cellulitis, unspecified Social History Tobacco Use Types [...] unspecified documented in this encounter Care Teams Revenue Specialist Relationship Specialty Start Date End Date Venus Belcher MD [address] [place] [phone] PCP - General Family Medicine 04/06/24 documented as of this encounter
--- OUTSIDE RECORDS SUMMARY | 2024-05-27 11:57 | XMS_ITS | Encounter Summary ---
Author Organization [facility] Address [address] [place] [address] Care Team Providers Care Cotton Stripper Name Role Phone Venus Belcher MD Primary Care Provider + Encounter Details Date Type Department Care Team (Late st Contact Info) Description 04/13/2024 Lab Requisition [facility] - Main Lab 299 [facility] [place] [address] Venus Belcher MD [address] [address] Cellulitis, unspecified Social History Tobacco Use Types [...] unspecified documented in this encounter Care Teams Cotton Stripper Relationship Specialty Start Date End Date Venus Belcher MD [address] [place] [address] [phone] PCP - General Family Medicine 04/06/24 documented as of this encounter
--- OUTSIDE RECORDS SUMMARY | 2024-05-27 11:57 | XMS_ITS | Encounter Summary ---
Author Organization [facility] Address [address] [place] [address] Care Team Providers Care Medical Administrative Technician Name Role Phone Venus Belcher MD Primary Care Provider + Encounter Details Date Type Department Care Team (Late st Contact Info) Description 04/06/[address] [facility] - Main Lab [address] [place] [address] Venus Belcher MD [address] [employer] 1 [place], [place] [phone] Cellulitis, unspecified Social History Tobacco Use Types [...] al Result [facility] [address] [place] [address], documented in this encounter Visit Diagnoses Diagnosis Cellulitis, unspecified documented in this encounter Care Teams Medical Administrative Technician Relationship Specialty Start Date End Date Venus Belcher MD [address] [address] PCP - General Family Medicine 04/06/24 documented as of this encounter
--- OUTSIDE RECORDS SUMMARY | 2024-05-27 11:57 | XMS_ITS | Clinical Summary ---
Author Organization [address] Address [address] [place] [address] Phone Care Team Providers Care Skin Specialist Name Role Phone Venus Belcher MD Primary Care Provider + Encounters Date Type Department Care Team Description 04/25/2024 Lab Requisition [facility] Lab [address] [place] [phone] Venus Belcher MD Cellulitis, unspecified 04/18/[address] [facility] Lab [address] [place] [phone] Venus Belcher MD Cellulitis, unspecified 04/13/[address] [facility] Lab [address] [place] [address] Venus Belcher MD Cellulitis, unspecified 04/06/[address] [facility] Lab [address] [place] [phone] Venus Belcher MD Cellulitis, unspecified 04/06/[address] [facility] Lab [address] [place] [phone] Venus Belcher MD Cellulitis, unspecified from Last [...] - 2023-2 5 season) 2023 Influenza Vaccine (Season Ended) 2024 RSV Immunization Adult Patie nts (1 - 1-dose 75+ series) 02/03/2032 HIB [...] age to complete this topic Meningococcal B Vaccine Aged Out No l onger eligible based on patient's age to complete [...] PM EST) WBC 15.1(H) 4.8 - 10.8 K/[facility] LAB HEMETOLOGY METHOD 04/06/2024 3:24 PM [facility] RBC 3.30(L) 4.50 - 5.50 M/mcL LAB HEMETOLOGY METHOD 04/06/2024 3:24 PM [facility] Hemoglobin 10.9(L) 13.5 - 17.5 g/dL LAB HEMETOLOGY METHOD 04/06/2024 3:24 PM [facility] LAB Hematocrit 32.9(L) 42.0 - 54.0 % LAB HEMETOLOGY METHOD 04/06/2024 3:24 PM [facility] LAB MCV 98.5(H) 79.0 - 98.0 FL LAB HEMETOLOGY METHOD 04/06/2024 3:24 PM [facility] LAB MCH 32.6(H) 27.0 - 32.0 pcg LAB HEMETOLOGY METHOD 04/06/2024 3:24 PM [facility] LAB MCHC 33.1 32.0 - 37.0 g/dL LAB HEMETOLOGY METHOD 04/06/2024 3:24 PM [facility] LAB RDW 13.9 11.0 - 15.0 % LAB HEMETOLOGY METHOD 04/06/2024 3:24 PM [facility] LAB Platelets 476(H) 130 - 400 K/mcL LAB HEMETOLOGY METHOD 04/06/2024 3:24 PM [facility] LAB MPV 9.8 7.0 - 11.0 FL LAB HEMETOLOGY METHOD 04/06/2024 3:24 PM [facility] LAB NRBC 0.0 <1.0 % LAB HEMETOLOGY METHOD 04/06/2024 3:24 PM [facility] NRBC Absolute 0.00 <0.10 K/mcL LAB HEMETOLOGY METHOD 04/06/2024 3:24 PM [facility] Blood Venous blood specimen / Unknown Venipuncture / Unknown 04/06/2024 1:21 PM EST 04/06/2024 2:57 PM EST us Venus Belcher MD LAB BLOOD ORDERABLES Fin al Result [facility] [address] [place] [address], [place] [phone] * (ABNORMAL) Comprehensive metabolic panel (04/06/2024 9:00 AM EST) Sodium 129(L) 133 - 145 mmol/L LAB CHEMISTRY METHOD 04/06/2024 11:35 AM [facility] Potassium 4.5 3.5 - 5.5 mmol/L LAB CHEMISTRY METHOD 04/06/2024 11:35 AM [facility] Comment:Hemolysis present Chloride 94(L) 96 [...] 11:35 AM [facility] Blood Venous blood specimen / Unknown Venipuncture / Unknown 04/06/2024 9:00 AM EST 04/06/2024 9:48 AM EST us Venus Belcher MD LAB BLOOD ORDERABLES Fin al Result [facility] [address] [place] [address], from Last 3 Months Insurance MEDICARE [facility] Advance Directives Documents on File Type Date Recorded Patient Derrick Man Expl anation Health Care Decision (hx) 04/17/2016 AD [place] DIRECTIVE Health Care Decision (hx) 04/17/2016 AD [place] DIRECTIVE Health Care Decision (hx) 04/17/2016 AD [place]AM DIRECTIVE Health Care Decision (hx) 04/17/2016 AD [place]ING[place]AM DIRECTIVE Care Teams Skin Specialist Relationship Specialty Start Date End Date Venus Belcher MD 9 [place] [address] PCP - General Family Medicine 04/06/24
--- OUTSIDE RECORDS SUMMARY | 2024-05-27 11:57 | XMS_ITS | Encounter Summary ---
Author Organization [facility] Address [address] [place] [phone] Care Team Providers Care Scrap Shear Operator Name Role Phone Venus Belcher MD Primary Care Provider + Encounter Details Date Type Department Care Team (Late st Contact Info) Description 04/18/2024 Lab Requisition [facility] - Main Lab 299 [facility] [place] [address] Venus Belcher MD [address] [address] Cellulitis, unspecified Social History Tobacco Use Types [...] unspecified documented in this encounter Care Teams Scrap Shear Operator Relationship Specialty Start Date End Date Venus Belcher MD [address] [place] [phone] PCP - General Family Medicine 04/06/24 documented as of this encounter
== END 2024-05-27 11:13 | disposition home or self-care (01) ==
LOC: HO.HUSH 10:14
PROVIDERS: PCP Nurse Practitioner Family; Visit Provider Urology
DX: Z13.9 Encounter for screening, unspecified (principal)

== ENCOUNTER → 2024-05-27 10:13 | Outpatient (BNVA) | payer MEDICARE, SELFPAY | PROVIDERS: PCP Nurse Practitioner Family; Visit Provider Urology | DX: N30.20 Other chronic cystitis without hematuria (principal); N32.0 Bladder-neck obstruction; N32.81 Overactive bladder; Z79.899 Other long term (current) drug therapy | CPT/HCPCS: 81003; 99212 ==

== ENCOUNTER 2024-06-10 07:36 | Outpatient (AMB) | payer MEDICARE, SELFPAY ==
--- OUTSIDE RECORDS SUMMARY | 2024-06-10 07:39 | XMS_ITS | Clinical Summary ---
Author Organization [address] Address [address] [place] [address] Phone Care Team Providers Care Family Nurse Practitioner Name Role Phone Venus Belcher MD Primary Care Provider + Encounters Date Type Department Care Team Description 04/25/2024 Lab Requisition [facility] Lab [address] [place] [phone] Venus Belcher MD Cellulitis, unspecified 04/18/[address] [facility] Lab [address] [place] [phone] Venus Belcher MD Cellulitis, unspecified 04/13/[address] [facility] Lab [address] [place] [address] Venus Belcher MD Cellulitis, unspecified 04/06/[address] [facility] Lab [address] [place] [phone] Venus Belcher MD Cellulitis, unspecified 04/06/[address] [facility] Lab [address] [place] [phone] Venus Belcher MD Cellulitis, unspecified from Last [...] PM EST) WBC 15.1(H) 4.8 - 10.8 K/[facility] LAB HEMETOLOGY METHOD 04/06/2024 3:24 PM [facility] LAB RBC 3.30(L) 4.50 - 5.50 M/mcL LAB HEMETOLOGY METHOD 04/06/2024 3:24 PM [facility] Hemoglobin 10.9(L) 13.5 - 17.5 g/dL LAB HEMETOLOGY METHOD 04/06/2024 3:24 PM [facility] LAB Hematocrit 32.9(L) 42.0 - 54.0 % LAB HEMETOLOGY METHOD 04/06/2024 3:24 PM [facility] MCV 98.5(H) 79.0 - 98.0 FL LAB HEMETOLOGY METHOD 04/06/2024 3:24 PM [facility] MCH 32.6(H) 27.0 - 32.0 pcg LAB HEMETOLOGY METHOD 04/06/2024 3:24 PM [facility] MCHC 33.1 32.0 - 37.0 g/dL LAB HEMETOLOGY METHOD 04/06/2024 3:24 PM [facility] RDW 13.9 11.0 - 15.0 % LAB HEMETOLOGY METHOD 04/06/2024 3:24 PM [facility] LAB Platelets 476(H) 130 - 400 K/mcL LAB HEMETOLOGY METHOD 04/06/2024 3:24 PM [facility] MPV 9.8 7.0 - 11.0 FL LAB HEMETOLOGY METHOD 04/06/2024 3:24 PM [facility] NRBC 0.0 <1.0 % LAB HEMETOLOGY METHOD 04/06/2024 3:24 PM [facility] NRBC Absolute 0.00 <0.10 K/mcL LAB HEMETOLOGY METHOD 04/06/2024 3:24 PM [facility] Blood Venous blood specimen / Unknown Venipuncture / Unknown 04/06/2024 1:21 PM EST 04/06/2024 2:57 PM EST us Venus Belcher MD LAB BLOOD ORDERABLES Fin al Result [facility] [address] [place] [address], [place] [phone] * (ABNORMAL) Comprehensive metabolic panel (04/06/2024 9:00 AM EST) Sodium 129(L) 133 - 145 mmol/L LAB CHEMISTRY METHOD 04/06/2024 11:35 AM [facility] Potassium 4.5 3.5 - 5.5 mmol/L LAB CHEMISTRY METHOD 04/06/2024 11:35 AM [facility] Comment:Hemolysis present Chloride 94(L) 96 - 110 mmol/L LAB CHEMISTRY METHOD 04/06/2024 11:35 AM [facility] CO2 23 21 - 32 mmol/L LAB CHEMISTRY METHOD 04/06/2024 11:35 AM [facility] Anion Gap 12(H) 3 - 11 LAB CHEMISTRY METHOD 04/06/2024 11:35 AM [facility] Glucose 112(H) 70 - 100 mg/dL LAB CHEMISTRY METHOD 04/06/2024 11:35 AM [facility] BUN 12 5 - 25 mg/dL LAB CHEMISTRY METHOD 04/06/2024 11:35 AM [facility] Creatinine 1.03 0.70 - 1.30 mg/dL LAB CHEMISTRY METHOD 04/06/2024 11:35 AM [facility] eGFR 80 >=60 mL/min/1. 73m2 LAB CHEMISTRY METHOD 04/06/2024 11:35 AM [facility] Comment:Calculation based on the??Chronic Kidney Disease Epidemiology Collaboration (CKD-EPI) equation refit??without adjustment for race. BUN/Creatinine Ratio 11.7 LAB CHEMISTRY METHOD 04/06/2024 11:35 AM [facility] Calcium 8.9 8.5 - 10.5 mg/dL LAB CHEMISTRY METHOD 04/06/2024 11:35 AM [facility] AST (SGOT) 42 10 - 42 unit/L LAB CHEMISTRY METHOD 04/06/2024 11:35 AM [facility] Comment:Hemolysis present ALT (SGPT) 30 10 - 60 unit/L LAB CHEMISTRY METHOD 04/06/2024 11:35 AM [facility] Alkaline Phosphatase 75 42 - 121 unit/L LAB CHEMISTRY METHOD 04/06/2024 11:35 AM [facility] Total Protein 6.8 6.0 - 8.0 g/dL LAB CHEMISTRY METHOD 04/06/2024 11:35 AM [facility] Albumin 2.1(L) 3.2 - 5.0 g/dL LAB CHEMISTRY METHOD 04/06/2024 11:35 AM [facility] Total Bilirubin 1.3 0.0 - 1.4 mg/dL LAB CHEMISTRY METHOD 04/06/2024 11:35 AM [facility] Blood Venous blood specimen / Unknown Venipuncture / Unknown 04/06/2024 9:00 AM EST 04/06/2024 9:48 AM EST us Venus Belcher MD LAB BLOOD ORDERABLES Fin al Result [facility] [address] [place] [address], from Last 3 Months Insurance MEDICARE [facility] Advance Directives Documents on File Type Date Recorded Patient Gas Desulfurizer Expl anation Health Care Decision (hx) 04/17/2016 AD WILLING[place]AM DIRECTIVE Health Care Decision (hx) 04/17/2016 AD [place]AM DIRECTIVE Health Care Decision (hx) 04/17/2016 AD WILLINGHAM DIRECTIVE Health Care Decision (hx) 04/17/2016 AD WILLINGHAM DIRECTIVE Care Teams Family Nurse Practitioner Relationship Specialty Start Date End Date Venus Belcher MD [address] [place] [address] PCP - General Family Medicine 04/06/24
--- OUTSIDE RECORDS SUMMARY | 2024-06-10 07:39 | XMS_ITS | Encounter Summary ---
Author Organization [facility] Address [address] [place] [address] Care Team Providers Care Trauma Coordinator Name Role Phone Venus Belcher MD Primary Care Provider + Encounter Details Date Type Department Care Team (Late st Contact Info) Description 04/06/2024 Lab Requisition [facility] - Main Lab [address] [place] [address] Venus Belcher MD [address] [facility] 1 [place], [place] [phone] Cellulitis, unspecified Social History Tobacco Use Types [...] LAB CHEMISTRY METHOD 04/06/2024 11:35 AM EST [facility] Potassium 4.5 3.5 - 5.5 mmol/L LAB CHEMISTRY METHOD 04/06/2024 11:35 AM EST [facility] Comment:Hemolysis present Chloride 94(L) 96 - 110 mmol/L LAB CHEMISTRY METHOD 04/06/2024 11:35 AM [facility] CO2 23 21 - 32 mmol/L LAB CHEMISTRY METHOD 04/06/2024 11:35 AM [facility] Anion Gap 12(H) 3 - 11 LAB CHEMISTRY METHOD 04/06/2024 11:35 AM [facility] Glucose 112(H) 70 - 100 mg/dL LAB CHEMISTRY METHOD 04/06/2024 11:35 AM [facility] BUN 12 5 - 25 mg/dL LAB CHEMISTRY METHOD 04/06/2024 11:35 AM [facility] Creatinine 1.03 0.70 - 1.30 mg/dL LAB CHEMISTRY METHOD 04/06/2024 11:35 AM [facility] eGFR 80 >=60 mL/min/1. 73m2 LAB CHEMISTRY METHOD 04/06/2024 11:35 AM [facility] Comment:Calculation based on the??Chronic Kidney Disease Epidemiology Collaboration (CKD-EPI) equation refit??without adjustment for race. BUN/Creatinine Ratio 11.7 LAB CHEMISTRY METHOD 04/06/2024 11:35 AM [facility] Calcium 8.9 8.5 - 10.5 mg/dL LAB CHEMISTRY METHOD 04/06/2024 11:35 AM [facility] AST (SGOT) 42 10 - 42 unit/L LAB CHEMISTRY METHOD 04/06/2024 11:35 AM [facility] Comment:Hemolysis present ALT (SGPT) 30 10 - 60 unit/L LAB CHEMISTRY METHOD 04/06/2024 11:35 AM [facility] Alkaline Phosphatase 75 42 - 121 unit/L LAB CHEMISTRY METHOD 04/06/2024 11:35 AM [facility] Total Protein 6.8 6.0 - 8.0 g/dL LAB CHEMISTRY METHOD 04/06/2024 11:35 AM [facility] Albumin 2.1(L) 3.2 - 5.0 g/dL LAB CHEMISTRY METHOD 04/06/2024 11:35 AM [facility] Total Bilirubin 1.3 0.0 - 1.4 mg/dL LAB CHEMISTRY METHOD 04/06/2024 11:35 AM EST [facility] Blood Venous blood specimen / Unknown Venipuncture / Unknown 04/06/2024 9:00 AM EST 04/06/2024 9:48 AM EST us Venus Belcher MD LAB BLOOD ORDERABLES Fin al Result [facility] [address] [place] [address], documented in this encounter Visit Diagnoses Diagnosis Cellulitis, unspecified documented in this encounter Care Teams Trauma Coordinator Relationship Specialty Start Date End Date Venus Belcher MD [address] [place] [phone] PCP - General Family Medicine 04/06/24 documented as of this encounter
--- OUTSIDE RECORDS SUMMARY | 2024-06-10 07:40 | XMS_ITS | Encounter Summary ---
Author Organization [facility] Address [address] [place] [address] Care Team Providers Care Resident Care Technician Name Role Phone Venus Belcher MD Primary Care Provider + Encounter Details Date Type Department Care Team (Late st Contact Info) Description 04/06/2024 Lab Requisition [facility] - Main Lab [address] [place] [address] Venus Belcher MD [address] [facility] 1 [place], [place] [phone] Cellulitis, unspecified Social History Tobacco Use Types [...] 3:24 PM EST [facility] Hemoglobin 10.9(L) 13.5 - 17.5 g/dL LAB HEMETOLOGY METHOD 04/06/2024 3:24 PM EST [facility] Hematocrit 32.9(L) 42.0 - 54.0 % LAB HEMETOLOGY METHOD 04/06/2024 3:24 PM [facility] MCV 98.5(H) 79.0 - 98.0 FL LAB HEMETOLOGY METHOD 04/06/2024 3:24 PM [facility] MCH 32.6(H) 27.0 - 32.0 pcg LAB HEMETOLOGY METHOD 04/06/2024 3:24 PM EST [facility] MCHC 33.1 32.0 - 37.0 g/dL LAB HEMETOLOGY METHOD 04/06/2024 3:24 PM [facility] RDW 13.9 11.0 - 15.0 % LAB HEMETOLOGY METHOD 04/06/2024 3:24 PM [facility] Platelets 476(H) 130 - 400 K/mcL LAB HEMETOLOGY METHOD 04/06/2024 3:24 PM EST [facility] MPV 9.8 7.0 - 11.0 FL LAB HEMETOLOGY METHOD 04/06/2024 3:24 PM EST [facility] NRBC 0.0 <1.0 % LAB HEMETOLOGY METHOD 04/06/2024 3:24 PM [facility] NRBC Absolute 0.00 <0.10 K/mcL LAB HEMETOLOGY METHOD 04/06/2024 3:24 PM [facility] Blood Venous blood specimen / Unknown Venipuncture / Unknown 04/06/2024 1:21 PM EST 04/06/2024 2:57 PM EST us Venus Belcher MD LAB BLOOD ORDERABLES Fin al Result [facility] [address] [place] [address], documented in this encounter Visit Diagnoses Diagnosis Cellulitis, unspecified documented in this encounter Care Teams Resident Care Technician Relationship Specialty Start Date End Date Venus Belcher MD [address] [phone] PCP - General Family Medicine 04/06/24 documented as of this encounter
--- OUTSIDE RECORDS SUMMARY | 2024-06-10 07:40 | XMS_ITS | Encounter Summary ---
Author Organization [facility] Address [address] [place] [address] Care Team Providers Care Platform Architect Name Role Phone Venus Belcher MD Primary Care Provider + Encounter Details Date Type Department Care Team (Late st Contact Info) Description 04/25/2024 Lab Requisition [facility] - Main Lab [address] [facility] [place] [address] Venus Belcher MD [address] [address] Cellulitis, unspecified Social History Tobacco Use Types [...] unspecified documented in this encounter Care Teams Platform Architect Relationship Specialty Start Date End Date Venus Belcher MD [address] [place] [phone] PCP - General Family Medicine 04/06/24 documented as of this encounter
--- OUTSIDE RECORDS SUMMARY | 2024-06-10 07:40 | XMS_ITS | Continuity of Care Document ---
Author Organization [facility] Address [address] [place] [address] Phone Care Team Providers Care [facility] Nurse Name Role Phone Maximiliano STAPLES, YG, Marc MENEZES Unavailable U navailable Procedures Procedure Date Office/Oupt E&M New Pt 30 Mins- CT & [place] Duplex Scan-extrem Veins; Comp- CT & [place] Advance Directives Directive Yes / No Effective Date File Name Other Directive No 05/06/2024 N/A WARNING:The information contained in this section is historical and is provided for information only and does not constitute a legal document or any assurance that the information is still accurate. Please verify the information with the johnson of the legal document before using it for clinical purposes. Encounters Encounter Description Practice Location Reason(s) For Visit Diagnoses Date Provider Providers Copied on Encounter Office/Oupt E&M New Pt 30 Mins- CT & [place] [facility], [address], [place], [id number], [place] tel:[phone] [facility] [place] Varicose veins of bilateral lower extremities with other complicationsCr amp and spasmRestless legs syndromeVenous insufficiency (chronic) (peripheral)Lym phedema, not elsewhere classifiedDisor jacquelin of pigmentation, unspecifiedHere ditary lymphedema Apr-2 5 Maximiliano STAPLES, YG, RIRI Tran. [address], [address], [facility] [id number] , [place]. tel:[phone] Referring Provider: Diego Jarrett, [address] [facility], [place], [address]. tel:[phone] [facility], [address] [facility] [address], [place], [id number], [place] tel:[phone] [facility] [place] Chronic venous hypertension (idiopathic) with other complications of bilateral lower extremity Maximiliano STAPLES, RVT, RPVI Marc. [address], [address], [place], [place], [id number] , [place]. tel:[phone] Referring Provider: Diego Jarrett, [address] [facility], [place], [address]. tel:[phone] Family History Family Member Type Diagnosis Age At Onset No Information Payers Payer name Insurance type Covered alliance party ID Authoriza tion(s) Medicare [facility] [id number] [facility] [id number] Social History Type Description Quantity Date Captured Comments Alcohol Use Details Unknown Caffeine Use Details Unknown Tobacco Use Status No Information Smoking Status Former Smoker Non-Smoking Tobacco Use Details : No Details Available : No Details Available Sex Male Vital Signs Date / Time: Height Weight BMI Pulse Rate Blood Pressure Temperature Respiratory Rate Body Surface Area Head Circumference Head Circ. Percentile Wt./Junior. Percentile BMI percentile Pulse Ox Inhaled Ox 181.440 kg (400.00 lbs) 48.7 7 kg/m eter (2) 122/70 mm[Hg] Chief Complaint And Reason For Visit No Information Reason For Referral Reason For Referral No Information Plan Of Treatment Date Type Action Status Goal Tobacco cessation counseling completed Goal Diet education completed Referral Ordered: Weight management: Referral to physician timeframe: 3 Months (related to Body mass index (BMI) 45.0-49.9, adult) ordered Appointment Dinh Craven Jr BOOKED May-07-2025 Appointment Dinh Craven Jr BOOKED Appointment Dinh Craven Jr BOOKED Appointment Dinh Craven Jr BOOKED Appointment Dinh Craven Jr BOOKED Appointment Dinh Craven Jr BOOKED Appointment Dinh Craven Jr BOOKED History Of Present Illness Encounter Date Complaint History Of Prese nt Illness No Information Functional Status Date Functional Assessmen t No Information Instructions Date Instruction Additional Infor vy Pre and post instruc tions reviewed and provided Related to Varicose veins of bilateral lower extremities with other complications Patient education booklet given Related to Varicose veins of bilateral lower extremities with other complications Lifestyle education Related to B rio mass index (BMI) 45.0-49.9, adult Giving Encouragement to exercise Related to Body mass index (BMI) 45.0-49.9, adult Diet education Related to Body mass index (BMI) 45.0-49.9, adult Assessments Type Assessment Date No Information Patient Care Teams Name Effective Dates (start - stop) Status Members No Information
--- OUTSIDE RECORDS SUMMARY | 2024-06-10 07:40 | XMS_ITS | Encounter Summary ---
Author Organization [facility] Address [address] [place] [address] Care Team Providers Care Director Sales And Marketing Name Role Phone Venus Belcher MD Primary Care Provider + Encounter Details Date Type Department Care Team (Late st Contact Info) Description 04/13/2024 Lab Requisition [facility] - Main Lab [address] [facility] [place] [address] Venus Belcher MD [address] [address] Cellulitis, unspecified Social History Tobacco Use Types [...] documented in this encounter Care Teams Director Sales And Marketing Relationship Specialty Start Date End Date Venus Belcher MD [address] [place] [phone] PCP - General Family Medicine 04/06/24 documented as of this encounter
--- OUTSIDE RECORDS SUMMARY | 2024-06-10 07:40 | XMS_ITS | Encounter Summary ---
Author Organization [facility] Address [address] [place] [address] Care Team Providers Care Snow Removal Supervisor Name Role Phone Venus Belcher MD Primary Care Provider + Encounter Details Date Type Department Care Team (Late st Contact Info) Description 04/18/2024 Lab Requisition [facility] - Main Lab [address] [facility] [place] [address] Venus Belcher MD [address] [address] Cellulitis, unspecified Social History Tobacco Use Types [...] unspecified documented in this encounter Care Teams Snow Removal Supervisor Relationship Specialty Start Date End Date Venus Belcher MD [address] [place] [phone] PCP - General Family Medicine 04/06/24 documented as of this encounter
--- NOTE | 2024-06-10 07:45 | MHC.PC.OV ---
Vital Signs 06/10/24 07:48 Height 6 ft 4 in Weight 414 lb BMI 50.4 BP 110/62 Blood Pressure Location Lt brachial Position Sitting Respiration 18 Pulse 71 Pulse Source Pulse Oximeter Temp 97.8 F Temp Source Oral Pulse Oximetry (%) 98 Oxygen Delivery Method Room Air Intake Visit Reasons: 3m follow up co-morbidities Intake Note: Pt is here today for his 3m f/u Allergies No Known Allergies [No Known Allergies*] Allergy (Verified 06/10/24 08:47) Medication List - Last Reconciled 06/10/24 by Diego Augustine, [facility]- albuterol sulfate 90 mcg/actuation 2 puffs PO Q6H PRN amiodarone 200 mg PO DAILY 90 days ammonium lactate 12% 1 appl topical BEDTIME Anoro Ellipta 62.5-25 mcg/actuation (umeclidinium-vilanterol) 1 inh PO DAILY 90 days NS ascorbic acid (vitamin C) 1 g PO DAILY 90 days atorvastatin 80 mg PO BEDTIME 90 days bumetanide 2 mg PO DAILY docusate sodium (Colace) 100 mg PO BID doxazosin 8 mg PO BEDTIME 90 days duloxetine 60 mg PO DAILY ferrous sulfate 324 mg PO DAILY finasteride 5 mg PO DAILY 90 days hospital bed Bariatric hospital bed methenamine hippurate 1 g PO DAILY 90 days methocarbamol 500 mg PO BEDTIME omeprazole 20 mg PO DAILY oxybutynin chloride ER 10 mg PO ONCE 90 days oxycodone 10 mg (2 x 5 mg) PO Q4H PRN [Powered bariatric recliner As directed] pregabalin 150 mg PO TID 90 days ropinirole 2 mg PO TID spironolactone 25 mg PO DAILY walker daily use (rolling sitting walker-bariatric size needed) zolpidem 10 mg PO BEDTIME PRN Tobacco use date assessed: 06/10/24 Fall risk assessment: No Falls in past year Last assessed Fall Risk: 06/10/24 Dental Screening Dental Screen Date: 06/10/24 Did you have a dental visit in the last 12 months?: No Did you have a dental problem in the last 6 months where you did not have access to dental care?: No Was dental information given to patient?: Patient has dentist HPI 3m follow up co-morbidities HPI Details Chief Complaint The patient presents for a generalized follow-up, reporting general improvement in health status. History of Present Illness The patient is a 69-year-old male presenting for general follow-up of his existing medical conditions. He reports significant improvement, particularly regarding his respiratory status, with reduced use of supplemental oxygen. Previously, he required oxygen support consistently, but now utilizes it only during certain physical activities. His activity level has improved, enabling him to engage in light exercise such as backyard golfing with the assistance of a rolling walker. The patient also reports ongoing chronic erythematous discoloration of his bilateral extremities, related to long-standing vascular issues, with no recent changes in this condition. Social History - Exercises in the form of light golfing in his backyard, despite mobility issues. - Utilizes a rolling walker for ambulation, which he finds beneficial. - Morbidly obese, indicating issues related to weight management. Health Maintenance Review of Systems - Respiratory: Reports improved breathing status, denies current need for supplemental oxygen while at rest. - Musculoskeletal: Reports improvement in mobility with the use of a new rolling walker. - Dermatological: Reports chronic erythematous discoloration of bilateral extremities. -denies any CP, increased SOB, fevers, chills Physical Exam General: Cooperative, healthy appearing, comfortable, no acute distress and well developed Orientation: Patient oriented x3 Limitations: No limitations Head: Normal to inspection Ears: Hearing grossly normal bilaterally Nose: Normal external nose present Face and sinus: Normal facial exam Eyes: Appearance normal, both eyes and all related structures Neck: Normal visual inspection and Yes full ROM Respiratory: Diminished breath sounds but moving air. Able to speak in complete sentences. Cardiovascular: Regular rate and rhythm. Normal S1 and S2. Morbidly obese. GI: Normal to inspection. Soft to palpation and nontender Skin: Erythematous discoloration to bilateral extremities. This is chronic and ongoing. Neuro: Patient oriented x3 Extremities: Normal to inspection Results Plan The patient's progress is being carefully monitored with a focus on managing chronic respiratory issues through reduced supplemental oxygen use to only activity-related needs. Use of the new rolling walker is to be maintained due to improved mobility benefits. The upcoming arrival of a hospital bed will further assist his at-home care. Coordination with his cardiology, vascular, and pulmonary specialists continues, ensuring a multidisciplinary approach to his ongoing health management. Emphasis is placed on addressing his morbid obesity through lifestyle modifications as a preventive measure against the exacerbation of comorbid conditions. Discussion Notes During our discussion, I reviewed the patient's ongoing care plans for his multiple chronic conditions. We deliberated on his improved respiratory status and reduced dependence on supplemental oxygen. The advantages of continuing to engage with various specialists in cardiology, vascular, and pulmonary health were reinforced for comprehensive care. The discussion highlighted the risks and benefits of maintaining an active lifestyle, facilitated by the new rolling walker, and the anticipatory benefits expected from the hospital bed. Emphasis was placed on maintaining coordination with his specialist teams for managing his chronic conditions effectively. The importance of managing his obesity was stressed as a factor impacting his broader health. Patient Instructions - Use supplemental oxygen as needed during physical activities. - Regularly use the rolling walker for support and improved mobility. - Monitor for any changes in extremity discoloration and report if any new symptoms appear. - Continue follow-up appointments with cardiology, vascular, and pulmonary specialists. - Implement lifestyle changes as advised for weight management and overall wellbeing. - Await the arrival of the hospital bed for enhanced home care safety. [facility] Medical History Chronic diastolic heart failure JEFFRY on CPAP Anemia Sepsis COPD (chronic obstructive pulmonary disease) Acute respiratory failure due to COVID-19 Community acquired pneumonia Viral sepsis Fatigue Acute on chronic diastolic CHF (congestive heart failure) COVID Morbid obesity Paroxysmal atrial fibrillation Congestive heart failure Testicular swelling Osteoarthritis of right knee Melanoma History of cardioversion Hereditary lymphedema Venous insufficiency Morbid obesity Lymphedema COPD (chronic obstructive pulmonary disease) Sensory neuropathy COVID-19 Respiratory failure with hypoxia Restrictive lung disease MATUTE (dyspnea on exertion) Chronic cystitis Bladder outlet obstruction Restless leg syndrome Traumatic complete tear of right rotator cuff Injury of right rotator cuff History of diverticulitis History of umbilical hernia Surgical History Hx of colonoscopy History of appendectomy History of arthroscopy of left knee Family History Father Arthritis Diabetes Mother Arthritis Kidney stones Family/Other Arthritis Sister No problems noted. Sister No problems noted. Son No problems noted. Social History Household Members: Spouse Household Members Other:: Housing: Condominium Do you presently have visiting nurse or other home services: Yes Unable to assess alcohol history related to: Unknown Alcohol intake: current Alcohol intake frequency: holidays/special occasions only Alcohol type: beer Comment: Refused bed alarm due to alarm sensitivity when changing positions. 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 1. Little interest or pleasure in doing things: several days 2. Feeling down, depressed, or hopeless: not at all 3. Trouble falling or staying asleep, or sleeping too much: more than half the days 4. Feeling tired or having little energy: several days 5. Poor appetite or overeating: more than half the days 6. Feeling bad about yourself - or that you are a failure or have let yourself or your family down: not at all 7. Trouble concentrating on things, such as reading the newspaper or watching television: several days 8. Moving or speaking so slowly that other people could have noticed. Or the opposite - being so fidgety or restless that you have been moving around a lot more than usual: several days 9. Thoughts that you would be better off or of hurting yourself in some way: not at all Total score: 8 Depression Screening Interpretation: Positive Depression Screening Follow-up: Existing condition and Declines treatment Depression Screening Done: Yes Source: Developed by Drs. Marc Victoria, Karen Nguyen, Tristan Dominguez and colleagues, with an educational juan from [employer]. Thrive Questionnaire Date Thrive assessed: 06/03/24 I am a: Patient What is your living situation today?: I have a steady place to live Within the past 12 months, did the food you bought not last and you didn't have the money to get more?: Sometimes True Within the past 12 months, did you worry whether your food would run out before you got money to buy more?: Sometimes True Do you have trouble paying for medicines?: Yes Do you have trouble getting transportation to medical appointments?: No Do you have trouble paying your heating and electricity bill?: Yes Do you have trouble taking care of your child, family member or friend?: No Do you have trouble with day-to-day activities such as bathing, preparing meals, shopping, managing finances, etc.?: Yes Are you currently unemployed and looking for a job?: No Are you interested in more education?: No Please select the resources that you would like help with: Housing/Long Term, Food, Paying for medicine, Utilities and Daily support Currently or been in a relationship where the following occur: No concerns reported THRIVE Score: 3 AUDIT C Alcohol Use Questionnaire (AUDIT-C) 1. How often do you have a drink containing alcohol?: 4 or more times a week Total Score: 4 KIRA-7 AMB Questionnaire KIRA-7 Date KIRA - 7 assessed: 04/21/24 Feeling nervous, anxious, or on edge: 2 = More than half the days Not being able to stop or control worryin = Not at all Worrying too much about different things: 0 = Not at all Trouble relaxin = Several days Being so restless that it is hard to sit still: 0 = Not at all Becoming easily annoyed or irritable: 0 = Not at all Feeling afraid as if something awful might happen: 1 = Several days Total KIRA-7 score (0-4 normal; 5-9 mild; 10-14 moderate; 15-21 severe): 4 Source: Developed by Drs. Marc Victoria, Karen Nguyen, Tristan Dominguez and colleagues, with an educational juan from [employer]. Physical exam (Primary Care) Vital Signs: Last Vital Signs Temp 97.8 F 06/10/24 07:48 Pulse 71 06/10/24 07:48 Resp 18 06/10/24 07:48 BP 110/62 06/10/24 07:48 Pulse Ox 98 06/10/24 07:48 Oxygen Delivery Method Room Air 06/10/24 07:48 BMI result Body Mass Index 50.4 Tobacco/Smoking Status: Tobacco use Status Tobacco use date assessed 06/10/24 06/10/24 08:02 Patient Tobacco Use Status Former Tobacco user 06/10/24 07:46 Tobacco use type Cigarette 06/10/24 07:46 e-Cigarette/Vaping Use Never Used 06/10/24 07:46 PHQ-9: PHQ-9 Score PHQ-9: Total score 8 06/10/24 07:46 Depression Screening Interpretation: Positive Depression Screening Follow-up: Existing condition and Declines treatment Thrive Assessment: Date of Thrive Assessment Date Thrive assessed 06/03/24 06/10/24 07:46 Currently or been in a relationship where the following occur: No concerns reported Coding Level of Care Code Est Pt Level 4 (13269) Diagnoses Arthritis M19.90 Weakness of both lower limbs R29.898 COPD (chronic obstructive pulmonary disease) J44.9 Lymphedema I89.0 Morbid obesity E66.01 Chronic diastolic heart failure I50.32 Vascular insufficiency I99.8 Assessment & Plan Assessment & Plan (1) Arthritis: Code(s): M19.90 - Unspecified osteoarthritis, unspecified site Category: Medical (2) Weakness of both lower limbs: Code(s): R29.898 - Other symptoms and signs involving the musculoskeletal system Category: Medical (3) COPD (chronic obstructive pulmonary disease): Comment: Code(s): J44.9 - Chronic obstructive pulmonary disease, unspecified Category: Medical (4) Lymphedema: Comment: vascular Code(s): I89.0 - Lymphedema, not elsewhere classified Category: Medical (5) Morbid obesity: Code(s): E66.01 - Morbid (severe) obesity due to excess calories Category: Medical (6) Chronic diastolic heart failure: Code(s): I50.32 - Chronic diastolic (congestive) heart failure Category: Medical (7) Vascular insufficiency: Code(s): I99.8 - Other disorder of circulatory system Category: Medical Plan . Orders: Orders Complete Blood Count Auto Diff Today E66.01 - Morbid (severe) obesity due to excess calories, I50.32 - Chronic diastolic (congestive) heart failure, I89.0 - Lymphedema, not elsewhere classified, I99.8 - Other disorder of circulatory system, J44.9 - Chronic obstructive pulmonary disease, unspecified TSH reflex Free T4 Today E66.01 - Morbid (severe) obesity due to excess calories, I50.32 - Chronic diastolic (congestive) heart failure, I89.0 - Lymphedema, not elsewhere classified, I99.8 - Other disorder of circulatory system, J44.9 - Chronic obstructive pulmonary disease, unspecified PT Evaluation and Treatment Today M19.90 - Unspecified osteoarthritis, unspecified site, R29.898 - Other symptoms and signs involving the musculoskeletal system Comprehensive [place]. Panel Fast Today E66.01 - Morbid (severe) obesity due to excess calories, I50.32 - Chronic diastolic (congestive) heart failure, I89.0 - Lymphedema, not elsewhere classified, I99.8 - Other disorder of circulatory system, J44.9 - Chronic obstructive pulmonary disease, unspecified UA CC w/rflx Micro + Cult Today E66.01 - Morbid (severe) obesity due to excess calories, I50.32 - Chronic diastolic (congestive) heart failure, I89.0 - Lymphedema, not elsewhere classified, I99.8 - Other disorder of circulatory system, J44.9 - Chronic obstructive pulmonary disease, unspecified Lipid Panel Today E66.01 - Morbid (severe) obesity due to excess calories, I50.32 - Chronic diastolic (congestive) heart failure, I89.0 - Lymphedema, not elsewhere classified, I99.8 - Other disorder of circulatory system, J44.9 - Chronic obstructive pulmonary disease, unspecified Medications: Refilled zolpidem 10 mg PO BEDTIME PRN 30 tabs 2RF sleep
[2024-06-10 07:48] VITALS: BP 110/62; PULSE 71; RESP 18; TEMP 36.6; O2SAT 98; BMI 50.4
== END 2024-06-10 09:05 | disposition home or self-care (01) ==
LOC: HO.HMCC 07:37
PROVIDERS: PCP Nurse Practitioner Family; Visit Provider Nurse Practitioner Family
DX: J44.9 Chronic obstructive pulmonary disease, unspecified (principal); E66.01 Morbid (severe) obesity due to excess calories; Z68.43 Body mass index [BMI] 50.0-59.9, adult; I50.32 Chronic diastolic (congestive) heart failure; M19.90 Unspecified osteoarthritis, unspecified site; R29.898 Other symptoms and signs involving the musculoskeletal system; I89.0 Lymphedema, not elsewhere classified; I99.8 Other disorder of circulatory system

== ENCOUNTER → 2024-06-10 07:36 | Outpatient (BNVA) | payer MEDICARE, SELFPAY | PROVIDERS: PCP Nurse Practitioner Family; Visit Provider Nurse Practitioner Family | DX: M17.11 Unilateral primary osteoarthritis, right knee (principal); G89.4 Chronic pain syndrome; M19.90 Unspecified osteoarthritis, unspecified site; R29.898 Other symptoms and signs involving the musculoskeletal system; J44.9 Chronic obstructive pulmonary disease, unspecified; I89.0 Lymphedema, not elsewhere classified; E66.01 Morbid (severe) obesity due to excess calories; I99.8 Other disorder of circulatory system; I50.32 Chronic diastolic (congestive) heart failure | CPT/HCPCS: 99212 ==

== ENCOUNTER 2024-06-10 14:21 | Outpatient (AMB) | payer MEDICARE, SELFPAY ==
--- NOTE | 2024-06-10 14:29 | MHC.OFFVIS ---
Vital Signs 06/10/24 14:34 Height 6 ft 4 in Weight 414 lb BMI 50.4 BP 134/72 Blood Pressure Location Lt brachial Position Sitting Pulse 99 Pulse Source Pulse Oximeter Intake Visit Reasons: Right knee bone on bone Intake Note: Pain today 11/26 Ham Trimmer Required: No Accompanied by: Self / Same As Patient Allergies No Known Allergies [No Known Allergies*] Allergy (Verified 06/10/24 08:47) HPI Comments Details: Dinh is very pleasant 69 years old gentleman who presents in my office with complains on pain in the right knee. He reports that this pain started 2 years ago. He is suffering from osteoarthritis related to severe obesity. He reports crepitus sensation in his knee with walking. He reports pain on anterior and posterior surfaces of the knee. He reports his pain in the knees 11/26. He was referred here by Orthopedic surgery who do not want to perform total knee replacement for him because of his excessive body mass and congestive heart failure as well as COPD and obstructive sleep apnea. He is not able to sleep normally can not do activities of daily living he can take care of himself but he can not function normally. Weather changes and motions aggravate his pain in the knee. In terms of tissue damage he describes his pain as pulsing and pounding, stabbing and lancinating, sharp and lacerating, tugging and wrenching, dull, hurting, heavy, tiring and exhausting, sickening and suffocating, punishing and killing, tight and tearing sensation. He had x-rays available in the chart demonstrating severe tricompartmental right knee arthritis. He had multiple sessions of physical therapy last time he did 4 days ago on 06/06/24. He had 2 injections of steroids without any success into his knee he had 2 gel injections as well into his right knee unfortunately they were not effective. His past medical history significant for CHF morbid obesity COPD and obstructive sleep apnea he has right sided heart failure with normal ejection fraction. His past surgical history significant for left total knee replacement 2012 and right shoulder rotator cuff repair 8 years ago. She recently was admitted for cellulitis and lymphedema and spent some time in the hospital. Social history he is retired individual he denies smoking cigarettes he admits to drink 1 beer a day he drinks 2 cups of coffee a day and he uses cannabis tincture. [facility] Medical History Chronic diastolic heart failure JEFFRY on CPAP Anemia Sepsis COPD (chronic obstructive pulmonary disease) Acute respiratory failure due to COVID-19 Community acquired pneumonia Viral sepsis Fatigue Acute on chronic diastolic CHF (congestive heart failure) COVID Morbid obesity Paroxysmal atrial fibrillation Congestive heart failure Testicular swelling Osteoarthritis of right knee Melanoma History of cardioversion Hereditary lymphedema Venous insufficiency Morbid obesity Lymphedema COPD (chronic obstructive pulmonary disease) Sensory neuropathy COVID-19 Respiratory failure with hypoxia Restrictive lung disease MATUTE (dyspnea on exertion) Chronic cystitis Bladder outlet obstruction Restless leg syndrome Traumatic complete tear of right rotator cuff Injury of right rotator cuff History of diverticulitis History of umbilical hernia Surgical History Hx of colonoscopy History of appendectomy History of arthroscopy of left knee Family History Father Arthritis Diabetes Mother Arthritis Kidney stones Family/Other Arthritis Sister No problems noted. Sister No problems noted. Son No problems noted. Social History Household Members: Spouse Household Members Other:: Housing: Condominium Do you presently have visiting nurse or other home services: Yes Unable to assess alcohol history related to: Unknown Alcohol intake: current Alcohol intake frequency: holidays/special occasions only Alcohol type: beer Comment: Refused bed alarm due to alarm sensitivity when changing positions. 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[employer]/ [employer] Cognitive needs: No Hearing needs: No Vision needs: No Review of Systems Const All systems reviewed & are unremarkable except as noted in HPI and below ENT Reports Normal hearing present Neuro Reports Normal hearing present, Denies Abnormal speech present, Denies confusion and Denies Sensory deficit (Neuro) Psych Denies confusion Physical Exam Vital Signs: Last Vital Signs Pulse 99 06/10/24 14:34 BP 134/72 06/10/24 14:34 BMI result Body Mass Index 50.4 Const General: no acute distress; No confusion Nutritional Appearance: obese morbidly obese Orientation/consciousness: patient oriented x3 and No confusion Eyes General: appearance normal, both eyes and all related structures Pupils: Equal, round and reactive pupils present EOM: EOMs intact bilaterally Neck Neck: Yes full ROM Chest Chest palpation & inspection: normal inspection of the chest Resp Effort & Inspection: normal respiratory effort, able to speak in complete sentences, normal respiratory pattern, no audible wheezes and no cough Cardio Jugular venous distension: no JVD GI Inspection: Yes normal to inspection Neuro General: patient oriented x3, gait normal and No confusion Cranial nerves: Yes CN's II-XII intact bilaterally, Yes Equal, round and reactive pupils present, Yes Normal hearing present and Yes Ability to bilaterally elevate shoulders present Speech: No Abnormal speech present Gait exam (Neuro): Normal gait present Motor exam (neuro): 5/5 motor strength present throughout Sensory Exam: No Sensory deficit (Neuro) Extrem Other: Right knee: Skin intact, no erythema or joint effusion. Tenderness along the medial and lateral joint line. Tenderness on anterior and posterior surfaces of the right knee. Full ROM with crepitus. Negative Minal?s. No ligamentous laxity. NVI. General: No pedal edema Psych Speech and movement: Normal speech and movement present Affect: normal affect Attitude: cooperative Thought process: Normal thought process present Thought content: Normal thought content present Insight: Good insight present (Psych) Judgement: Good judgement present (Psych) Assessment & Plan Assessment & Plan (1) Right knee pain: Code(s): M25.561 - Pain in right knee Category: Medical (2) Chronic pain syndrome: Code(s): G89.4 - Chronic pain syndrome Category: Medical (3) Osteoarthritis of right knee: Code(s): M17.11 - Unilateral primary osteoarthritis, right knee Category: Medical Qualifiers: Osteoarthritis type: primary Qualified Code(s): M17.11 - Unilateral primary osteoarthritis, right knee Plan This patient has severe right knee pain and unfortunately he is a poor candidate for total knee replacement. It remains to be seen if patient can lose enough weight and improve his pulmonary function to be a subject of total knee replacement in the future. His pain is on anterior and posterior surfaces of the knee. I do not believe genicular nerve in the situation would be a good pain relief. I offered the patient ultrasound-guided femoral nerve block to see if this procedure will help his pain. If it is so we can try ultrasound-guided femoral nerve sprint PNS to help the pain of the knee in this patient. Alternatively cure on X PNS could be tried as well. If femoral nerve block will not help the pain of the patient the only thing I can offer to him is spinal cord stimulator [employer] in the projection of the L2, L3 and L4 right gutter. It remains to be seen if patient will be able to positioned himself prone on the operating table we would have to try oxygen mask for him to positioned in prone for the [employer] trial. Coding Level of Care Code New Pt Level 3 (26854) Diagnoses Right knee pain M25.561 Chronic pain syndrome G89.4 Primary osteoarthritis of right knee M17.11 Osteoarthritis type: primary
[2024-06-10 14:34] VITALS: BP 134/72; PULSE 99; BMI 50.4
--- OUTSIDE RECORDS SUMMARY | 2024-06-10 16:53 | XMS_ITS | Clinical Summary ---
Author Organization [address] Address [address] [place] [address] Phone Care Team Providers Care Industrial Maintenance Millwright Name Role Phone Venus Belcher MD Primary Care Provider + Encounters Date Type Department Care Team Description 04/25/2024 Lab Requisition [facility] Lab [address] [place] [phone] Venus Belcher MD Cellulitis, unspecified 04/18/2024 Lab Requisition [facility] Lab [address] [place] [phone] Venus Belcher MD Cellulitis, unspecified 04/13/2024 Lab Requisition [facility] Lab [address] [place] [address] Venus Belcher MD Cellulitis, unspecified 04/06/2024 Lab Requisition [facility] Lab [address] [place] [phone] Venus Belcher MD Cellulitis, unspecified 04/06/2024 Lab Requisition [facility] Lab [address] [place] [phone] Venus Belcher MD Cellulitis, unspecified from Last [...] PM EST) WBC 15.1(H) 4.8 - 10.8 K/[facility] LAB HEMETOLOGY METHOD 04/06/2024 3:24 PM [facility] LAB RBC 3.30(L) 4.50 - 5.50 M/mcL LAB HEMETOLOGY METHOD 04/06/2024 3:24 PM [facility] LAB Hemoglobin 10.9(L) 13.5 - 17.5 g/dL LAB HEMETOLOGY METHOD 04/06/2024 3:24 PM [facility] LAB Hematocrit 32.9(L) 42.0 - 54.0 % LAB HEMETOLOGY METHOD 04/06/2024 3:24 PM [facility] LAB MCV 98.5(H) 79.0 - 98.0 FL LAB HEMETOLOGY METHOD 04/06/2024 3:24 PM [facility] LAB MCH 32.6(H) 27.0 - 32.0 pcg LAB HEMETOLOGY METHOD 04/06/2024 3:24 PM [facility] LAB MCHC 33.1 32.0 - 37.0 g/dL LAB HEMETOLOGY METHOD 04/06/2024 3:24 PM [facility] LAB RDW 13.9 11.0 - 15.0 % LAB HEMETOLOGY METHOD 04/06/2024 3:24 PM [facility] LAB Platelets 476(H) 130 - 400 K/mcL LAB HEMETOLOGY METHOD 04/06/2024 3:24 PM [facility] LAB MPV 9.8 7.0 - 11.0 FL LAB HEMETOLOGY METHOD 04/06/2024 3:24 PM [facility] LAB NRBC 0.0 <1.0 % LAB HEMETOLOGY METHOD 04/06/2024 3:24 PM [facility] LAB NRBC Absolute 0.00 <0.10 K/mcL LAB HEMETOLOGY METHOD 04/06/2024 3:24 PM [facility] LAB Blood Venous blood specimen / Unknown Venipuncture / Unknown 04/06/2024 1:21 PM EST 04/06/2024 2:57 PM EST us Venus Belcher MD LAB BLOOD ORDERABLES Fin al Result [facility] LAB [address] [place] [address], [place] [phone] * (ABNORMAL) Comprehensive metabolic panel (04/06/2024 9:00 AM EST) Sodium 129(L) 133 - 145 mmol/L LAB CHEMISTRY METHOD 04/06/2024 11:35 AM [facility] LAB Potassium 4.5 3.5 - 5.5 mmol/L LAB CHEMISTRY METHOD 04/06/2024 11:35 AM [facility] LAB Comment:Hemolysis present Chloride 94(L) 96 - 110 mmol/L LAB CHEMISTRY METHOD 04/06/2024 11:35 AM [facility] LAB CO2 23 21 - 32 mmol/L LAB CHEMISTRY METHOD 04/06/2024 11:35 AM [facility] LAB Anion Gap 12(H) 3 - 11 LAB CHEMISTRY METHOD 04/06/2024 11:35 AM [facility] LAB Glucose 112(H) 70 - 100 mg/dL LAB CHEMISTRY METHOD 04/06/2024 11:35 AM [facility] LAB BUN 12 5 - 25 mg/dL LAB CHEMISTRY METHOD 04/06/2024 11:35 AM [facility] LAB Creatinine 1.03 0.70 - 1.30 mg/dL LAB CHEMISTRY METHOD 04/06/2024 11:35 AM [facility] LAB eGFR 80 >=60 mL/min/1. 73m2 LAB CHEMISTRY METHOD 04/06/2024 11:35 AM [facility] LAB Comment:Calculation based on the??Chronic Kidney Disease Epidemiology Collaboration (CKD-EPI) equation refit??without adjustment for race. BUN/Creatinine Ratio 11.7 LAB CHEMISTRY METHOD 04/06/2024 11:35 AM [facility] LAB Calcium 8.9 8.5 - 10.5 mg/dL LAB CHEMISTRY METHOD 04/06/2024 11:35 AM [facility] LAB AST (SGOT) 42 10 - 42 unit/L LAB CHEMISTRY METHOD 04/06/2024 11:35 AM [facility] LAB Comment:Hemolysis present ALT (SGPT) 30 10 - 60 unit/L LAB CHEMISTRY METHOD 04/06/2024 11:35 AM [facility] LAB Alkaline Phosphatase 75 42 - 121 unit/L LAB CHEMISTRY METHOD 04/06/2024 11:35 AM [facility] LAB Total Protein 6.8 6.0 - 8.0 g/dL LAB CHEMISTRY METHOD 04/06/2024 11:35 AM [facility] LAB Albumin 2.1(L) 3.2 - 5.0 g/dL LAB CHEMISTRY METHOD 04/06/2024 11:35 AM [facility] LAB Total Bilirubin 1.3 0.0 - 1.4 mg/dL LAB CHEMISTRY METHOD 04/06/2024 11:35 AM [facility] LAB Blood Venous blood specimen / Unknown Venipuncture / Unknown 04/06/2024 9:00 AM EST 04/06/2024 9:48 AM EST us Venus Belcher MD LAB BLOOD ORDERABLES Fin al Result [facility] LAB [address] [place] [address], from Last 3 Months Insurance MEDICARE [facility] Advance Directives Documents on File Type Date Recorded Patient Supervisor Beater Room Expl anation Health Care Decision (hx) 04/17/2016 AD WILLINGHAM DIRECTIVE Health Care Decision (hx) 04/17/2016 AD WILLINGHAM DIRECTIVE Health Care Decision (hx) 04/17/2016 AD WILLINGHAM DIRECTIVE Health Care Decision (hx) 04/17/2016 AD WILLINGHAM DIRECTIVE Care Teams Industrial Maintenance Millwright Relationship Specialty Start Date End Date Venus Belcher MD [address] [place] [address] PCP - General Family Medicine 04/06/24
--- OUTSIDE RECORDS SUMMARY | 2024-06-10 16:53 | XMS_ITS | Encounter Summary ---
Author Organization [facility] Address [address] [place] [address] Care Team Providers Care Library Paraprofessional Name Role Phone Venus Belcher MD Primary Care Provider + Encounter Details Date Type Department Care Team (Late st Contact Info) Description 04/13/2024 Lab Requisition [facility] - Main Lab [address] [facility] [place] [address] Venus Belcher MD [address] [address] Cellulitis, unspecified Social History Tobacco Use Types [...] unspecified documented in this encounter Care Teams Library Paraprofessional Relationship Specialty Start Date End Date Venus Belcher MD [address] [place] [address] [phone] PCP - General Family Medicine 04/06/24 documented as of this encounter
--- OUTSIDE RECORDS SUMMARY | 2024-06-10 16:53 | XMS_ITS ---
Author Organization [facility] Address [address] [place] [address] Care Team Providers Care Winderman Name Role Phone Diego Gallagher Primary Care Provider Unav ailable Nancy Hardy Unavailable [phone] Encounters Encounter Location Date Provider Diagnosis [facility] [address] [place] [address] 04/13/2024 Nancy Hardy Plan Of Treatment No Information Progress Notes * Dinh BUCKLEY RDOB:[birth year] (69 yo M)Acc No.[id number]:04/13/2024 Progress Note Patient:?Dinh BUCKLEY Provider:?Nancy Hardy DPM :1955???Age:69 Y???Sex:Male Raj e:04/13/2024 Address:[address] [place] [address] [phone] Pcp:MARU Goldstein Subjective: * Chief Complaints: * ??? * Medical History:? Objective: * Vitals:? Assessment: Plan: * Treatment: * Images: * The named appointment provid er may or may not be the originator of this progress note, and it is not deemed complete until electronically signed by the appointment provider. Sign off status: Pending * Provider:?Nancy Hardy DPM Date:?02/ Generated for Katlin ramirez/Cece/Jemima on:?06/10/2024 04:53 PM EDT
--- OUTSIDE RECORDS SUMMARY | 2024-06-10 16:53 | XMS_ITS ---
Author Organization [facility] Address [address] [place] [address] Care Team Providers Care Drawer Upfitter Name Role Phone Diego Gallagher Primary Care Provider Unav ailable Nancy Hardy Unavailable [phone] REASON FOR VISIT cx appt Encounters Encounter Location Date Provider Diagnosis [facility] [address] [place] [address] 04/09/2024 Nancy Hardy Plan Of Treatment No Information Progress Notes * Dinh BUCKLEY RDOB:[birth year] (69 yo M)Acc No.[id number]:04/09/2024 Patient:?Dinh BUCKLEY :1955???Age:69 Y???Sex:Male Address:[address] [place], [place] [address], [address] * true * Date:? Generated for Printi ng/Faxing/eTransmitting on:?06/10/2024 04:53 PM EDT
--- OUTSIDE RECORDS SUMMARY | 2024-06-10 16:53 | XMS_ITS ---
Author Organization [facility] Address [address] [facility] [address] Care Team Providers Care Paradichlorobenzene Tender Name Role Phone Diego Gallagher Primary Care Provider Unav ailable MohamudguillermoNancy Unavailable [phone] Medications Medication SIG (Take, Route, Frequency, Duration) [...] Active Encounters Encounter Location Date Provider Diagnosis [facility] [place] [address] [place] [address] 03/24/2024 Nancy Hardy Plan Of Treatment No Information Progress Notes * Dinh BUCKLEY RDOB:[birth year] (69 yo M)Acc No.[id number]:03/24/2024 Progress Note Patient:?Dinh BUCKLEY Provider:?Nancy Hardy DPM :1955???Age:69 Y???Sex:Male Raj e:03/24/2024 Address:[address] [place], [place] [phone] Pcp:MARU Goldstein Subjective: * Chief Complaints: * [...] Hardy DPM Date:?06/2024 Generated for Katlin ramirez/Cece/Jemima on:?06/10/2024 04:52 PM EDT
--- OUTSIDE RECORDS SUMMARY | 2024-06-10 16:53 | XMS_ITS | Encounter Summary ---
Author Organization [facility] Address [address] [place] [address] Care Team Providers Care Entry Level Assistant Manager Name Role Phone Venus Belcher MD Primary Care Provider + Encounter Details Date Type Department Care Team (Late st Contact Info) Description 04/06/2024 Lab Requisition [facility] - Main Lab [address] [place] [address] Venus Belcher MD 819 [facility] 1 [place], [place] [phone] Cellulitis, unspecified Social History Tobacco Use Types [...] % LAB HEMETOLOGY METHOD 04/06/2024 3:24 PM [facility] LAB MCV 98.5(H) 79.0 - 98.0 FL LAB HEMETOLOGY METHOD 04/06/2024 3:24 PM [facility] LAB MCH 32.6(H) 27.0 - 32.0 pcg LAB HEMETOLOGY METHOD 04/06/2024 3:24 PM EST [facility] LAB MCHC 33.1 32.0 - 37.0 g/dL LAB HEMETOLOGY METHOD 04/06/2024 3:24 PM [facility] LAB RDW 13.9 11.0 - 15.0 % LAB HEMETOLOGY METHOD 04/06/2024 3:24 PM [facility] LAB Platelets 476(H) 130 - 400 K/mcL LAB HEMETOLOGY METHOD 04/06/2024 3:24 PM EST [facility] LAB MPV 9.8 7.0 - 11.0 FL LAB HEMETOLOGY METHOD 04/06/2024 3:24 PM EST [facility] LAB NRBC 0.0 <1.0 % LAB HEMETOLOGY METHOD 04/06/2024 3:24 PM [facility] LAB NRBC Absolute 0.00 <0.10 K/mcL LAB HEMETOLOGY METHOD 04/06/2024 3:24 PM [facility] LAB Blood Venous blood specimen / Unknown Venipuncture / Unknown 04/06/2024 1:21 PM EST 04/06/2024 2:57 PM EST us Venus Belcher MD LAB BLOOD ORDERABLES Fin al Result [facility] LAB [address] [place] [address], documented in this encounter Visit Diagnoses Diagnosis Cellulitis, unspecified documented in this encounter Care Teams Entry Level Assistant Manager Relationship Specialty Start Date End Date Venus Belcher MD [address] [address] PCP - General Family Medicine 04/06/24 documented as of this encounter
--- OUTSIDE RECORDS SUMMARY | 2024-06-10 16:53 | XMS_ITS | Encounter Summary ---
Author Organization [facility] Address [address] [place] [address] Care Team Providers Care Blow Pit Operator Name Role Phone Venus Belcher MD Primary Care Provider + Encounter Details Date Type Department Care Team (Late st Contact Info) Description 04/18/[address] [facility] - Main Lab 299 [facility] [place] [address] Venus Belcher MD [address] [address] Cellulitis, unspecified Social History Tobacco Use Types [...] unspecified documented in this encounter Care Teams Blow Pit Operator Relationship Specialty Start Date End Date Venus Belcher MD [address] [place] [address] [phone] PCP - General Family Medicine 04/06/24 documented as of this encounter
--- OUTSIDE RECORDS SUMMARY | 2024-06-10 16:53 | XMS_ITS | Encounter Summary ---
Author Organization [facility] Address [address] [place] [address] Care Team Providers Care Automatic Cigar Wrapper Tender Name Role Phone Venus Belcher MD Primary Care Provider + Encounter Details Date Type Department Care Team (Late st Contact Info) Description 04/06/2024 Lab Requisition [facility] - Main Lab [address] [place] [address] Venus Belcher MD 819 [facility] 1 [place], [place] [phone] Cellulitis, unspecified Social History Tobacco Use Types [...] MD LAB BLOOD ORDERABLES Fin al Result [facility] LAB [address] [place] [address], documented in this encounter Visit Diagnoses Diagnosis Cellulitis, unspecified documented in this encounter Care Teams Automatic Cigar Wrapper Tender Relationship Specialty Start Date End Date Venus Belcher MD [address] [place] [address] PCP - General Family Medicine 04/06/24 documented as of this encounter
--- OUTSIDE RECORDS SUMMARY | 2024-06-10 16:53 | XMS_ITS | Encounter Summary ---
Author Organization [facility] Address [address] [place] [address] Care Team Providers Care Exchange Underwriting Consultant Name Role Phone Venus Belcher MD Primary Care Provider + Encounter Details Date Type Department Care Team (Late st Contact Info) Description 04/25/2024 Lab Requisition [facility] - Main Lab 299 [facility] [place] [address] Venus Belcher MD [address] [address] Cellulitis, unspecified Social History Tobacco Use Types [...] unspecified documented in this encounter Care Teams Exchange Underwriting Consultant Relationship Specialty Start Date End Date Venus Belcher MD [address] [place] [phone] PCP - General Family Medicine 04/06/24 documented as of this encounter
--- OUTSIDE RECORDS SUMMARY | 2024-06-10 16:53 | XMS_ITS | Patient Health Record ---
Author Organization [facility] Address [address] [facility] [place] 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 Problem Bilateral atherosclerosis of arteries of lower limbs (disorder) (92359623541065327) Atherosclerosis of kashia artery of both lower extremities, with unspecified presence of clinical manifestation (I70.203) Active confirmed Problem 59944279798251897 Atherosclerosi s of artery of both lower extremities (I70.203) Active confirmed Problem 56688189324388648 Neuropathic ul cer of right foot with fat layer exposed (L97.512) Active confirmed Vital Signs Blood pressure diastolic 70 mm Hg 01/09/2024 Height 6ft 4in in 01/09/2024 Blood pressure systolic 132 mm Hg 01/09/2024 Weight 425 lbs 01/09/2024 BMI 51.73 kg/m2 01/09/2024 Encounters Encounter Location Date Provider Diagnosis [facility] [place] [address] [place] [address] 30/01/2024 Nancy Hardy Atherosclerosis of kashia artery of both lower extremities, with unspecified presence of clinical manifestation I70.203 ; Neuropathy G62.9 ; Tinea unguium B35.1 ; Pain in right toe(s) M79.674 and Pain in left toe(s) M79.[address] [address] 01/09/2024 Nancy Mallorya Neuropathy G62.9 ; Tinea unguium B35.1 ; Atherosclerosis of kashia artery of both lower extremities, with unspecified presence of clinical manifestation I70.203 ; Pain in right toe(s) M79.674 and Pain in left toe(s) M79.[address] [address] 10/27/2023 Nancy Hardy [address] [address] 03/22/2024 Nancy Hardy [address] [address] 04/09/2024 Nancy Hardy Assessments Encounter Date Diagnosis (ICD Code) Assessment Notes Treatment Notes Treatment Clinical Notes Section Notes 06/18/2023 Atherosclerosis of kashia artery of both lower extremities, with unspecified presence of clinical manifestation (ICD-10 - I70.203) 01/09/2024 Tinea unguium (ICD-10 - B35.1) 01/09/2024 Neuropathy (ICD-10 - G62.9) 01/09/2024 Atherosclerosis of kashia artery of both lower extremities, with unspecified [...] Medicare [employer] [address] [place] [address] [id number] Dinh Craven Self - patient is the insured [employer] [address] [place] [address] [phone] [id number] Dinh Craven Self - patient is the insured Medical (General) History Medical History History ICD Code Arthritis asthma Back,Hip,and Knee pain Lung disease Neuropathy Poor circulation thyroid Chicken pox Joint implants/screws A fib Surgical History Surgery Date(Month/Year) knee replacement 2014 appendectomy 2016 rotator cuff 2019 Hospitalization History Reason Date(Month/Year) [facility] [place] - [place] [facility] [place] chest pains, a fib
== END 2024-06-10 15:02 | disposition home or self-care (01) ==
LOC: HO.PMC 14:22
PROVIDERS: PCP Nurse Practitioner Family; Visit Provider Anesthesiology
DX: M25.561 Pain in right knee (principal); G89.4 Chronic pain syndrome; M17.11 Unilateral primary osteoarthritis, right knee
CPT/HCPCS: 99213

== ENCOUNTER 2024-06-14 10:43 | Outpatient (REF) | payer MEDICARE, SELFPAY ==
--- OUTSIDE RECORDS SUMMARY | 2024-06-14 12:45 | XMS_ITS | Clinical Summary ---
Author Organization [address] Address [address] [place] [address] Phone Care Team Providers Care Trackmobile Operator Name Role Phone Venus Belcher MD Primary Care Provider + Encounters Date Type Department Care Team Description 04/25/2024 Lab Requisition [facility] [address] [place] [phone] Venus Belcher MD Cellulitis, unspecified 04/18/2024 Lab Requisition [facility] Lab [address] [place] [phone] Venus Belcher MD Cellulitis, unspecified 04/13/2024 Lab Requisition [facility] Lab [address] [place] [address] Venus Belcher MD Cellulitis, unspecified 04/06/2024 Lab Requisition [facility] Lab [address] [place] [phone] Venus Belcher MD Cellulitis, unspecified 04/06/2024 Lab Requisition [facility] Lab [address] [place] [phone] Venus Belcher MD Cellulitis, unspecified from Last [...] PM EST) WBC 15.1(H) 4.8 - 10.8 K/[facility] LAB HEMETOLOGY METHOD 04/06/2024 3:24 PM [facility] LAB RBC 3.30(L) 4.50 - 5.50 M/mcL LAB HEMETOLOGY METHOD 04/06/2024 3:24 PM [facility] LAB Hemoglobin 10.9(L) 13.5 - 17.5 g/dL LAB HEMETOLOGY METHOD 04/06/2024 3:24 PM [facility] LAB Hematocrit 32.9(L) 42.0 - 54.0 % LAB HEMETOLOGY METHOD 04/06/2024 3:24 PM [facility] LAB MCV 98.5(H) 79.0 - 98.0 FL LAB HEMETOLOGY METHOD 04/06/2024 3:24 PM [facility] LAB MCH 32.6(H) 27.0 - 32.0 pcg LAB HEMETOLOGY METHOD 04/06/2024 3:24 PM [facility] LAB MCHC 33.1 32.0 - 37.0 g/dL LAB HEMETOLOGY METHOD 04/06/2024 3:24 PM [facility] LAB RDW 13.9 11.0 - 15.0 % LAB HEMETOLOGY METHOD 04/06/2024 3:24 PM [facility] LAB Platelets 476(H) 130 - 400 K/mcL LAB HEMETOLOGY METHOD 04/06/2024 3:24 PM [facility] LAB MPV 9.8 7.0 - 11.0 FL LAB HEMETOLOGY METHOD 04/06/2024 3:24 PM [facility] LAB NRBC 0.0 <1.0 % LAB HEMETOLOGY METHOD 04/06/2024 3:24 PM [facility] LAB NRBC Absolute 0.00 <0.10 K/mcL LAB HEMETOLOGY METHOD 04/06/2024 3:24 PM [facility] LAB Blood Venous blood specimen / Unknown Venipuncture / Unknown 04/06/2024 1:21 PM EST 04/06/2024 2:57 PM EST us Venus Belcher MD LAB BLOOD ORDERABLES Fin al Result [facility] [address] [place] [address], [place] [phone] * (ABNORMAL) Comprehensive metabolic panel (04/06/2024 9:00 AM EST) Sodium 129(L) 133 - 145 mmol/L LAB CHEMISTRY METHOD 04/06/2024 11:35 AM [facility] LAB Potassium 4.5 3.5 - 5.5 mmol/L LAB CHEMISTRY METHOD 04/06/2024 11:35 AM [facility] LAB Comment:Hemolysis present Chloride 94(L) 96 - 110 mmol/L LAB CHEMISTRY METHOD 04/06/2024 11:35 AM [facility] LAB CO2 23 21 - 32 mmol/L LAB CHEMISTRY METHOD 04/06/2024 11:35 AM [facility] LAB Anion Gap 12(H) 3 - 11 LAB CHEMISTRY METHOD 04/06/2024 11:35 AM [facility] LAB Glucose 112(H) 70 - 100 mg/dL LAB CHEMISTRY METHOD 04/06/2024 11:35 AM [facility] LAB BUN 12 5 - 25 mg/dL LAB CHEMISTRY METHOD 04/06/2024 11:35 AM [facility] LAB Creatinine 1.03 0.70 - 1.30 mg/dL LAB CHEMISTRY METHOD 04/06/2024 11:35 AM [facility] LAB eGFR 80 >=60 mL/min/1. 73m2 LAB CHEMISTRY METHOD 04/06/2024 11:35 AM [facility] LAB Comment:Calculation based on the??Chronic Kidney Disease Epidemiology Collaboration (CKD-EPI) equation refit??without adjustment for race. BUN/Creatinine Ratio 11.7 LAB CHEMISTRY METHOD 04/06/2024 11:35 AM [facility] LAB Calcium 8.9 8.5 - 10.5 mg/dL LAB CHEMISTRY METHOD 04/06/2024 11:35 AM [facility] LAB AST (SGOT) 42 10 - 42 unit/L LAB CHEMISTRY METHOD 04/06/2024 11:35 AM [facility] LAB Comment:Hemolysis present ALT (SGPT) 30 10 - 60 unit/L LAB CHEMISTRY METHOD 04/06/2024 11:35 AM [facility] LAB Alkaline Phosphatase 75 42 - 121 unit/L LAB CHEMISTRY METHOD 04/06/2024 11:35 AM [facility] LAB Total Protein 6.8 6.0 - 8.0 g/dL LAB CHEMISTRY METHOD 04/06/2024 11:35 AM [facility] LAB Albumin 2.1(L) 3.2 - 5.0 g/dL LAB CHEMISTRY METHOD 04/06/2024 11:35 AM [facility] LAB Total Bilirubin 1.3 0.0 - 1.4 mg/dL LAB CHEMISTRY METHOD 04/06/2024 11:35 AM [facility] LAB Blood Venous blood specimen / Unknown Venipuncture / Unknown 04/06/2024 9:00 AM EST 04/06/2024 9:48 AM EST us Venus Belcher MD LAB BLOOD ORDERABLES Fin al Result [facility] [address] [place] [address], from Last 3 Months Insurance MEDICARE [facility] Advance Directives Documents on File Type Date Recorded Patient Workforce Development Vice President Expl anation Health Care Decision (hx) 04/17/2016 AD WILLINGHAM DIRECTIVE Health Care Decision (hx) 04/17/2016 AD WILLINGHAM DIRECTIVE Health Care Decision (hx) 04/17/2016 AD WILLINGHAM DIRECTIVE Health Care Decision (hx) 04/17/2016 AD WILLINGHAM DIRECTIVE Care Teams Trackmobile Operator Relationship Specialty Start Date End Date Venus Belcher MD [address] [place] [address] PCP - General Family Medicine 04/06/24
--- OUTSIDE RECORDS SUMMARY | 2024-06-14 12:45 | XMS_ITS ---
Author Organization [facility] Address [address] [facility] [place] [address] Care Team Providers Care Facial Operator Name Role Phone Diego Gallagher Primary Care Provider Unav ailable MohamudguillermoNancy Unavailable [phone] Medications Medication SIG (Take, Route, Frequency, Duration) [...] Active Encounters Encounter Location Date Provider Diagnosis [facility] [place] [address] [place] [address] 03/24/2024 Nancy Hardy Plan Of Treatment No Information Progress Notes * Dinh BUCKLEY RDOB:[birth year] (69 yo M)Acc No.[id number]:03/24/2024 Progress Note Patient:?Dinh BUCKLEY Provider:?Nancy Hardy DPM :1955???Age:69 Y???Sex:Male Raj e:03/24/2024 Address:[address] [place], [place] [id number] Pcp:MARU Goldstein Subjective: * Chief Complaints: * [...] Hardy DPM Date:?06/2024 Generated for Katlin ramirez/Cece/Jemima on:?06/14/2024 12:45 PM EDT
--- OUTSIDE RECORDS SUMMARY | 2024-06-14 12:45 | XMS_ITS | Encounter Summary ---
Author Organization [facility] Address [address] [place] [address] Care Team Providers Care Legal Executive Assistant Name Role Phone Venus Belcher MD Primary Care Provider + Encounter Details Date Type Department Care Team (Late st Contact Info) Description 04/13/2024 Lab Requisition [facility] - Main Lab [address] [facility] [place] [address] Venus Belcher MD [address] [address] Cellulitis, unspecified Social History Tobacco Use Types [...] unspecified documented in this encounter Care Teams Legal Executive Assistant Relationship Specialty Start Date End Date Venus Belcher MD [address] [place] [phone] PCP - General Family Medicine 04/06/24 documented as of this encounter
--- OUTSIDE RECORDS SUMMARY | 2024-06-14 12:45 | XMS_ITS | Encounter Summary ---
Author Organization [facility] Address [address] [place] [address] Care Team Providers Care Registered Pharmacy Technician Name Role Phone Venus Belcher MD Primary Care Provider + Encounter Details Date Type Department Care Team (Late st Contact Info) Description 04/18/2024 Lab Requisition [facility] - Main Lab 299 [facility] [place] [address] Venus Belcher MD [address] [address] Cellulitis, unspecified Social History Tobacco Use Types [...] unspecified documented in this encounter Care Teams Registered Pharmacy Technician Relationship Specialty Start Date End Date Venus Belcher MD [address] [place] [address] [phone] PCP - General Family Medicine 04/06/24 documented as of this encounter
--- OUTSIDE RECORDS SUMMARY | 2024-06-14 12:45 | XMS_ITS | Encounter Summary ---
Author Organization [facility] Address [address] [place] [address] Care Team Providers Care Residential Roofer Name Role Phone Venus Belcher MD Primary Care Provider + Encounter Details Date Type Department Care Team (Late st Contact Info) Description 04/25/2024 Lab Requisition [facility] - Main Lab 299 [facility] [place] [address] Venus Belcher MD [address] [address] Cellulitis, unspecified Social History Tobacco Use Types [...] unspecified documented in this encounter Care Teams Residential Roofer Relationship Specialty Start Date End Date Venus Belcher MD [address] [place] [address] [phone] PCP - General Family Medicine 04/06/24 documented as of this encounter
--- OUTSIDE RECORDS SUMMARY | 2024-06-14 12:45 | XMS_ITS ---
Author Organization [facility] Address [address] [place] [address] Care Team Providers Care Parts Room Assistant Name Role Phone Diego Gallagher Primary Care Provider Unav ailable Nancy Hardy Unavailable [phone] Encounters Encounter Location Date Provider Diagnosis [facility] [address] [place] [address] 04/13/2024 Nancy Hardy Plan Of Treatment No Information Progress Notes * Dinh BUCKLEY RDOB:[birth year] (69 yo M)Acc No.[id number]:04/13/2024 Progress Note Patient:?Dinh BUCKLEY Provider:?Nancy Hardy DPM :1955???Age:69 Y???Sex:Male Raj e:04/13/2024 Address:[address] [place] [address] [phone] Pcp:MARU Goldstein Subjective: * Chief Complaints: * ??? * Medical History:? Objective: * Vitals:? Assessment: Plan: * Treatment: * Images: * The named appointment provid er may or may not be the originator of this progress note, and it is not deemed complete until electronically signed by the appointment provider. Sign off status: Pending * Provider:?Nancy Hardy DPM Date:?02/ Generated for Katlin ramirez/Cece/Jemima on:?06/14/2024 12:45 PM EDT
--- OUTSIDE RECORDS SUMMARY | 2024-06-14 12:45 | XMS_ITS | Patient Health Record ---
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 Problem Mononeuropathy of lower limb (894937533) Neuritis of right foot (G57.91) Active confirmed Problem 45800877 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 Problem Bilateral atherosclerosis of arteries of lower limbs (disorder) (99878559258848093) Atherosclerosis of [place] artery of both lower extremities, with unspecified presence of clinical manifestation (I70.203) Active confirmed Problem 54323423910062836 Atherosclerosi s of artery of both lower extremities (I70.203) Active confirmed Problem 83893452423425642 Neuropathic ul cer of right foot with fat layer exposed (L97.512) Active confirmed Vital Signs Blood pressure diastolic 70 mm Hg 01/09/2024 Height 6ft 4in in 01/09/2024 Blood pressure systolic 132 mm Hg 01/09/2024 Weight 425 lbs 01/09/2024 BMI 51.73 kg/m2 01/09/2024 Encounters Encounter Location Date Provider Diagnosis [facility] [address] [place] [address] 92/01/2024 Nancy Hardy Atherosclerosis of [place] artery of both lower extremities, with unspecified presence of clinical manifestation I70.203 ; Neuropathy G62.9 ; Tinea unguium B35.1 ; Pain in right toe(s) M79.674 and Pain in left toe(s) M79.[address] [address] 01/09/2024 Nancy Mallorya Neuropathy G62.9 ; Tinea unguium B35.1 ; Atherosclerosis of [place] artery of both lower extremities, with unspecified presence of clinical manifestation I70.203 ; Pain in right toe(s) M79.674 and Pain in left toe(s) M79.[address] [address] 10/27/20[address] Hardy [address] [address] 03/22/2024 Nancy Hardy [address] [address] 04/09/2024 Nancy Hardy Assessments Encounter Date Diagnosis (ICD Code) Assessment Notes Treatment Notes Treatment Clinical Notes Section Notes 01/09/2024 Neuropathy (ICD-10 - G62.9) 06/18/2023 Atherosclerosis of [place] artery of both lower extremities, with unspecified presence of clinical manifestation (ICD-10 - I70.203) 01/09/2024 Tinea unguium (ICD-10 - B35.1) 01/09/2024 Atherosclerosis of [place] artery of both lower extremities, with unspecified presence of clinical manifestation (ICD-10 - I70.203) 06/18/2023 Tinea unguium (ICD-10 - B35.1) 06/18/2023 Neuropathy (ICD-10 - G62.9) 06/18/2023 Pain in right toe(s) (ICD-10 - [...] Inc [address] [place] [address] [id number] Dinh Craven Self - patient is the insured [employer] [address] [place] [address] [id number] Dinh Craven Self - patient is the [...]
--- OUTSIDE RECORDS SUMMARY | 2024-06-14 12:45 | XMS_ITS ---
Author Organization [facility] Address [address] [place] [address] Care Team Providers Care Recovery Unit Operator Name Role Phone Diego Gallagher Primary Care Provider Unav ailable Nancy Hardy Unavailable [phone] REASON FOR VISIT cx appt Encounters Encounter Location Date Provider Diagnosis [facility] [address] [place] [address] 04/09/2024 Nancy Hardy Plan Of Treatment No Information Progress Notes * Dinh BUCKLEY RDOB:[birth year] (69 yo M)Acc No.[id number]:04/09/2024 Patient:?Dinh BUCKLEY :1955???Age:69 Y???Sex:Male Address:[address] [place], [place] [address], [address] * true * Date:? Generated for Printi ng/Faxing/eTransmitting on:?06/14/2024 12:45 PM EDT
--- OUTSIDE RECORDS SUMMARY | 2024-06-14 12:45 | XMS_ITS | Encounter Summary ---
Author Organization [facility] Address [address] [place] [address] Care Team Providers Care Hand Laminator Name Role Phone Venus Belcher MD Primary Care Provider + Encounter Details Date Type Department Care Team (Late st Contact Info) Description 04/06/2024 Lab Requisition [facility] - Main Lab 299 [place] [address] Venus Belcher MD 819 [facility] 1 [place], [place] [phone] Cellulitis, unspecified Social History Tobacco Use Types [...] LAB HEMETOLOGY METHOD 04/06/2024 3:24 PM EST [facility] LAB RBC 3.30(L) 4.50 - 5.50 M/mcL LAB HEMETOLOGY METHOD 04/06/2024 3:24 PM EST [facility] LAB Hemoglobin 10.9(L) 13.5 - 17.5 g/dL LAB HEMETOLOGY METHOD 04/06/2024 3:24 PM EST [facility] LAB Hematocrit 32.9(L) 42.0 - 54.0 % LAB HEMETOLOGY METHOD 04/06/2024 3:[address] [facility] LAB MCV 98.5(H) 79.0 - 98.0 FL LAB HEMETOLOGY METHOD 04/06/2024 3:[address] [facility] LAB MCH 32.6(H) 27.0 - 32.0 pcg LAB HEMETOLOGY METHOD 04/06/2024 3:24 PM EST [facility] LAB MCHC 33.1 32.0 - 37.0 g/dL LAB HEMETOLOGY METHOD 04/06/2024 3:[address] [facility] LAB RDW 13.9 11.0 - 15.0 % LAB HEMETOLOGY METHOD 04/06/2024 3:[address] [facility] LAB Platelets 476(H) 130 - 400 K/mcL LAB HEMETOLOGY METHOD 04/06/2024 3:24 PM EST [facility] LAB MPV 9.8 7.0 - 11.0 FL LAB HEMETOLOGY METHOD 04/06/2024 3:24 PM EST [facility] LAB NRBC 0.0 <1.0 % LAB HEMETOLOGY METHOD 04/06/2024 3:[address] [facility] LAB NRBC Absolute 0.00 <0.10 K/mcL LAB HEMETOLOGY METHOD 04/06/2024 3:[address] [facility] LAB Blood Venous blood specimen / Unknown Venipuncture / Unknown 04/06/2024 1:21 PM EST 04/06/2024 2:57 PM EST us Venus Belcher MD LAB BLOOD ORDERABLES Fin al Result [facility] LAB [address] [place] [address], documented in this encounter Visit Diagnoses Diagnosis Cellulitis, unspecified documented in this encounter Care Teams Hand Laminator Relationship Specialty Start Date End Date Venus Belcher MD [address] [address] PCP - General Family Medicine 04/06/24 documented as of this encounter
--- OUTSIDE RECORDS SUMMARY | 2024-06-14 12:45 | XMS_ITS | Encounter Summary ---
Author Organization [facility] Address [address] [place] [address] Care Team Providers Care Property Insurance Inspector Name Role Phone Venus Belcher MD Primary Care Provider + Encounter Details Date Type Department Care Team (Late st Contact Info) Description 04/06/2024 Lab Requisition [facility] - Main Lab [address] [place] [address] Venus Belcher MD 819 [facility] 1 [place], [place] [phone] Cellulitis, unspecified Social History Tobacco Use Types [...] LAB CHEMISTRY METHOD 04/06/2024 11:35 AM EST [facility] LAB Potassium 4.5 3.5 - 5.5 mmol/L LAB CHEMISTRY METHOD 04/06/2024 11:35 AM EST [facility] LAB Comment:Hemolysis present Chloride 94(L) [...] LAB CHEMISTRY METHOD 04/06/2024 11:35 AM EST [facility] LAB Blood Venous blood specimen / Unknown Venipuncture / Unknown 04/06/2024 9:00 AM EST 04/06/2024 9:48 AM EST us Venus Belcher MD LAB BLOOD ORDERABLES Fin al Result [facility] [address] [place] [address], documented in this encounter Visit Diagnoses Diagnosis Cellulitis, unspecified documented in this encounter Care Teams Property Insurance Inspector Relationship Specialty Start Date End Date Venus Belcher MD [address] [place] [phone] PCP - General Family Medicine 04/06/24 documented as of this encounter
[2024-06-14 13:03] LABS: MANUAL DIFF FLAG NO
[2024-06-14 13:18] LABS: Appearance Urine Clear; Color Urine Dark Yellow; Glucose Urine UA Negative (Negative); Leukocyte Esterase Urine Small (1+) (Negative); Nitrite Urine Negative (Negative); PH 5.5 (5.0-9.0); UMIC TRIGGER UACC YES; Urine Blood Negative (Negative); Urine Ketones Negative (Negative); Urine Protein 100 (2+) mg/dL (Neg-Trace)
[2024-06-14 13:20] LABS: Basophils Percent Auto 0.4 % (0-2); Eosinophils Absolute Auto 0.1 X10*3/uL (0.0-0.4); Eosinophils Percent Auto 1.3 % (0-4); Hemoglobin 12.8 g/dl (14.0-18.0); Imm Gran Abs Auto 0.05 X10*3/uL (0.00-0.03); Imm Gran Pct Auto 0.5 % (0.0-0.4); Lymphocytes Absolute Auto 1.5 X10*3/uL (1.2-4.9); Lymphocytes Percent Auto 13.5 % (20-40); Mean Corpuscular HGB Conc 33.7 g/dl (31.0-36.0); Mean Corpuscular Hemoglobin 32.4 pg (27.0-33.0); Mean Corpuscular Volume 96.2 fL (80.0-98.0); Mean Platelet Volume 10.4 fL (9.4-12.4); Monocytes Absolute Auto 1.1 X10*3/uL (0.1-1.2); Monocytes Percent Auto 9.6 % (2-11); Neutrophils Absolute Auto 8.2 x10*3/uL (2.0-8.3); Neutrophils Percent Auto 74.7 % (45-73); Platelet Count 303 X10*3/uL (160-400); Red Blood Count 3.95 X10*6/uL (4.60-5.80); Red Cell Distribution Width 14.5 % (11.0-16.0)
[2024-06-14 13:21] LABS: Bacteria Urine None Seen (None Seen); Hyaline Casts Urine 0-2 /LPF (0-2); RBC Urine 0-2 /HPF (0-2); UACC Culture Trigger YES; WBC Urine 21-50 /HPF (0-5)
[2024-06-14 13:44] LABS: Alanine Aminotransferase 14 U/L (0-40); Albumin Level 3.6 g/dL (3.5-5.0); Alkaline Phosphatase 71 U/L (39-117); Anion Gap 14 (12-20); Aspartate Amino Transferase 30 U/L (5-37); Bilirubin Total 0.9 mg/dL (0.0-1.0); Blood Urea Nitrogen 23 mg/dL (9-16); Calcium 9.1 mg/dL (8.4-10.2); Carbon Dioxide 25 mmol/L (22-29); Chloride 100 mmol/L (96-108); Cholesterol 112 mg/dL (<200); Estimated Glomerular Filt Rate > 60; Glucose Fasting 104 mg/dL (60-99); HDL Cholesterol 43 mg/dL (>40); LDL Cholesterol Calculated 60 mg/dL (<100); Potassium 4.1 mmol/L (3.3-5.1); Sodium 135 mmol/L (135-145); TSH reflex Free T4 0.94 uIU/mL (0.32-4.0); Total Protein 7.5 g/dL (6.5-8.0); Triglycerides 47 mg/dL (<150)
== END 2024-06-14 10:44 | disposition home or self-care (01) ==
LOC: HO.HMGCLDS 10:43
PROVIDERS: PCP Nurse Practitioner Family; Visit Provider Nurse Practitioner Family
DX: J44.9 Chronic obstructive pulmonary disease, unspecified (principal); I50.32 Chronic diastolic (congestive) heart failure; E66.01 Morbid (severe) obesity due to excess calories; I89.0 Lymphedema, not elsewhere classified; I99.8 Other disorder of circulatory system; Z12.5 Encounter for screening for malignant neoplasm of prostate; R82.90 Unspecified abnormal findings in urine
CPT/HCPCS: 36415; 80053; 80061; 81001; 81003; 84153; 84443; 85025; 87086

== ENCOUNTER → 2024-06-21 23:59 | Outpatient (BNV) | payer MEDICARE, SELFPAY | PROVIDERS: PCP Nurse Practitioner Family; Visit Provider Nurse Practitioner Family | DX: I11.0 Hypertensive heart disease with heart failure (principal) | CPT/HCPCS: G0179 ==

== ENCOUNTER 2024-06-22 06:09 | Outpatient (REF) | payer MEDICARE, SELFPAY ==
--- OUTSIDE RECORDS SUMMARY | 2024-06-22 06:12 | XMS_ITS | Encounter Summary ---
Author Organization [facility] Address [address] [place] [address] Care Team Providers Care Material Spreader Name Role Phone Venus Belcher MD Primary Care Provider + Encounter Details Date Type Department Care Team (Late st Contact Info) Description 04/06/2024 Lab Requisition [facility] - Main Lab [address] [place] [address] Venus Belcher MD 819 [facility] 1 [place], [place] [phone] Cellulitis, unspecified Social History Tobacco Use Types [...] LAB HEMETOLOGY METHOD 04/06/2024 3:[address] [facility] LAB RBC 3.30(L) 4.50 - 5.50 M/mcL LAB HEMETOLOGY METHOD 04/06/2024 3:[address] [facility] LAB Hemoglobin 10.9(L) 13.5 - 17.5 g/dL LAB HEMETOLOGY METHOD 04/06/2024 3:[address] [facility] LAB Hematocrit 32.9(L) 42.0 - 54.0 % LAB HEMETOLOGY METHOD 04/06/2024 3:24 PM [facility] LAB MCV 98.5(H) 79.0 - 98.0 FL LAB HEMETOLOGY METHOD 04/06/2024 3:24 PM [facility] LAB MCH 32.6(H) 27.0 - 32.0 pcg LAB HEMETOLOGY METHOD 04/06/2024 3:[address] [facility] LAB MCHC 33.1 32.0 - 37.0 g/dL LAB HEMETOLOGY METHOD 04/06/2024 3:24 PM [facility] LAB RDW 13.9 11.0 - 15.0 % LAB HEMETOLOGY METHOD 04/06/2024 3:24 PM [facility] LAB Platelets 476(H) 130 - 400 K/mcL LAB HEMETOLOGY METHOD 04/06/2024 3:[address] [facility] LAB MPV 9.8 7.0 - 11.0 FL LAB HEMETOLOGY METHOD 04/06/2024 3:[address] [facility] LAB NRBC 0.0 <1.0 % LAB HEMETOLOGY METHOD 04/06/2024 3:24 PM [facility] LAB NRBC Absolute 0.00 <0.10 K/mcL LAB HEMETOLOGY METHOD 04/06/2024 3:24 PM [facility] LAB Blood Venous blood specimen / Unknown Venipuncture / Unknown 04/06/2024 1:21 PM EST 04/06/2024 2:57 PM EST us Venus Belcher MD LAB BLOOD ORDERABLES Fin al Result [facility] LAB [address] [place] [address], documented in this encounter Visit Diagnoses Diagnosis Cellulitis, unspecified documented in this encounter Care Teams Material Spreader Relationship Specialty Start Date End Date Venus Belcher MD [address] [address] PCP - General Family Medicine 04/06/24 documented as of this encounter
--- OUTSIDE RECORDS SUMMARY | 2024-06-22 06:12 | XMS_ITS | Encounter Summary ---
Author Organization [facility] Address [address] [place] [address] Care Team Providers Care Tissue Technician Name Role Phone Venus Belcher MD Primary Care Provider + Encounter Details Date Type Department Care Team (Late st Contact Info) Description 04/25/2024 Lab Requisition [facility] - Main Lab 299 [facility] [place] [address] Venus Belcher MD [address] [address] Cellulitis, unspecified Social History Tobacco Use Types [...] unspecified documented in this encounter Care Teams Tissue Technician Relationship Specialty Start Date End Date Venus Belcher MD [address] [place] [address] [phone] PCP - General Family Medicine 04/06/24 documented as of this encounter
--- OUTSIDE RECORDS SUMMARY | 2024-06-22 06:12 | XMS_ITS | Clinical Summary ---
Author Organization [address] Address [address] [place] [address] Phone Care Team Providers Care Risk Control Director Name Role Phone Venus Belcher MD Primary Care Provider + Encounters Date Type Department Care Team Description 04/25/2024 Lab Requisition [facility] [address] [place] [address] Venus Belcher MD Cellulitis, unspecified 04/18/2024 Lab Requisition [facility] Lab [address] [place] [address] Venus Belcher MD Cellulitis, unspecified 04/13/2024 Lab Requisition [facility] Lab [address] [place] [address] Venus Belcher MD Cellulitis, unspecified 04/06/2024 Lab Requisition [facility] Lab [address] [place] [address] Venus Belcher MD Cellulitis, unspecified 04/06/2024 Lab Requisition [facility] Lab [address] [place] [address] Venus Belcher MD Cellulitis, unspecified from Last [...] PM EST) WBC 15.1(H) 4.8 - 10.8 K/[facility] LAB HEMETOLOGY METHOD 04/06/2024 3:24 PM [...] MD LAB BLOOD ORDERABLES Fin al Result [facility] [address] [place] [address], [place] [phone] * (ABNORMAL) Comprehensive metabolic panel (04/06/2024 9:00 [...] MD LAB BLOOD ORDERABLES Fin al Result [facility] [address] [place] [address], from Last 3 Months Insurance MEDICARE [facility] Advance Directives Documents on File Type Date Recorded Patient Inspector Purchased Parts Expl anation Health Care Decision (hx) 04/17/2016 [place] DIRECTIVE Health Care Decision (hx) 04/17/2016 AD [place] DIRECTIVE Health Care Decision (hx) 04/17/2016 AD [place] DIRECTIVE Health Care Decision (hx) 04/17/2016 AD [place] DIRECTIVE Care Teams Risk Control Director Relationship Specialty Start Date End Date Venus Belcher MD 9 [place] [address] PCP - General Family Medicine 04/06/24
--- OUTSIDE RECORDS SUMMARY | 2024-06-22 06:12 | XMS_ITS | Encounter Summary ---
Author Organization [facility] Address [address] [place] [address] Care Team Providers Care Match Up Worker Name Role Phone Venus Belcher MD Primary Care Provider + Encounter Details Date Type Department Care Team (Late st Contact Info) Description 04/06/2024 Lab Requisition [facility] - Main Lab [address] [place] [address] Venus Belcher MD 819 [facility] 1 [place], [place] [phone] Cellulitis, unspecified Social History Tobacco Use Types [...] LAB CHEMISTRY METHOD 04/06/2024 11:35 AM EST [facility] LAB Potassium 4.5 3.5 - 5.5 mmol/L LAB CHEMISTRY METHOD 04/06/2024 11:35 AM EST [facility] LAB Comment:Hemolysis present Chloride 94(L) [...] LAB CHEMISTRY METHOD 04/06/2024 11:35 AM EST [facility] LAB Blood Venous blood specimen / Unknown Venipuncture / Unknown 04/06/2024 9:00 AM EST 04/06/2024 9:48 AM EST us Venus Belcher MD LAB BLOOD ORDERABLES Fin al Result [facility] [address] [place] [address], documented in this encounter Visit Diagnoses Diagnosis Cellulitis, unspecified documented in this encounter Care Teams Match Up Worker Relationship Specialty Start Date End Date Venus Belcher MD [address] [place] [phone] PCP - General Family Medicine 04/06/24 documented as of this encounter
--- OUTSIDE RECORDS SUMMARY | 2024-06-22 06:12 | XMS_ITS | Encounter Summary ---
Author Organization [facility] Address [address] [place] [address] Care Team Providers Care Pouako Kura [place] Maori Name Role Phone Venus Belcher MD Primary Care Provider + Encounter Details Date Type Department Care Team (Late st Contact Info) Description 04/13/2024 Lab Requisition [facility] - Main Lab 299 [facility] [place] [address] Venus Belcher MD [address] [address] Cellulitis, unspecified Social History Tobacco Use Types [...] unspecified documented in this encounter Care Teams Pouako [place] Maori Relationship Specialty Start Date End Date Venus Belcher MD [address] [place] [phone] PCP - General Family Medicine 04/06/24 documented as of this encounter
--- OUTSIDE RECORDS SUMMARY | 2024-06-22 06:12 | XMS_ITS | Continuity of Care Document ---
Author Organization [facility] Address [address] [place] [address] Phone Care Team Providers Care City Council Member Name Role Phone Wyatt Hernandez Unavailable Unavailable Procedures Procedure Date Offic/outpt E&m Estab 5 Min Trial- Telem edicine CT & [place] Office/Oupt E&M New Pt 30 Mins- CT & [place] Duplex Scan-extrem Veins; Comp- CT & [place] Advance Directives Directive Yes / No Effective Date File Name Other Directive No 06/17/2024 N/A WARNING:The information contained in this section is historical and is provided for information only and does not constitute a legal document or any assurance that the information is still accurate. Please verify the information with the johnson of the legal document before using it for clinical purposes. Encounters Encounter Description Practice Location Reason(s) For Visit Diagnoses Date Provider Providers Copied on Encounter Offic/outpt E&m Estab 5 Min Trial- Telemedicine CT & [place] [facility], [address], [place], [id number], [place] tel:[phone] R - [place] [facility] [place] Localized edemaCramp and spasmRestless legs syndromeVenou s insufficiency (chronic) (peripheral)L ymphedema, not elsewhere classifiedDis order of pigmentation, unspecifiedHe reditary lymphedema 5 Nakia Schneider. [address], [address], [place], [id number], [place]. tel:[phone] Referring Provider: Diego OGDEN Kolby, [address] [place] [address], [place], [address]. tel:[phone] Office/Oupt E&M New Pt 30 Mins- CT & [place] [facility], [address] [place] [address] [address], [place], [id number], [place] tel:[phone] [facility] Varicose veins of bilateral lower extremities with other complications Cramp and spasmRestless legs syndromeVenou s insufficiency (chronic) (peripheral)L ymphedema, not elsewhere classifiedDis order of pigmentation, unspecifiedHe reditary lymphedema Mar-2 0 5 Maximiliano STAPLES RVT, RIRI Tran. [address] [place] [address], [place], [id number], [place]. tel:[phone] Referring Provider: Diego OGDEN Kolby, [address] [place] [address], [place], [address]. tel:[phone] [facility], [address] [place] [address] [address], [place], [id number], [place] tel:[phone] [facility] Chronic venous hypertension (idiopathic) with other complications of bilateral lower extremity Mar-2 0 5 Maximiliano STAPLES RVT, RPVI Robert. [address] [place] [address], [place], [id number], [place]. tel:[phone] Referring Provider: Diego OGDEN Kolby, [address] [place] [address], [address]. tel:[phone] Family History Family Member Type Diagnosis Age At Onset No Information Payers Payer name Insurance type Covered alliance party ID Authoriza tion(s) Medicare AVIVA PENA [id number] [facility] AVIVA DUR[place] [id number] Social History Type Description Quantity Date Captured [...] Status Goal Tobacco cessation counseling completed Goal Tobacco cessation counseling completed Goal Diet education completed Referral Ordered: Weight management: Referral to physician timeframe: 3 Months (related to Body mass index (BMI) 45.0-49.9, adult) ordered Appointment Dinh Craven Jr BOOKED Appointment Dinh Craven Jr BOOKED Appointment Dinh Craven Jr BOOKED Appointment Dinh Craven Jr BOOKED Appointment Dinh Craven Jr BOOKED Appointment Dinh Craven Jr BOOKED Appointment Dinh Craven Jr BOOKED History Of Present Illness Encounter Date Complaint History Of Prese nt Illness No Information Functional Status Date Functional Assessmen t No Information Instructions Date Instruction Additional Infor mation Pre and post instruc tions reviewed and provided Related to Localized edema Patient education booklet given Related to Localized edema Pre and post instruc tions reviewed and [...] (BMI) 45.0-49.9, adult Assessments Type Assessment Date assessment Localized edema assessment Cramp and spasm assessment Hereditary lymphedema assessment Disorder of pigmentation, unspec ified assessment Lymphedema, not elsewhere classi fied assessment Venous insufficiency (chronic) ( peripheral) assessment Restless legs syndrome 25 Patient Care Teams Name Effective Dates (start - stop) Status Members No Information
--- OUTSIDE RECORDS SUMMARY | 2024-06-22 06:12 | XMS_ITS | Encounter Summary ---
Author Organization [facility] Address [address] [place] [address] Care Team Providers Care Portfolio Analyst Name Role Phone Venus Belcher MD Primary Care Provider + Encounter Details Date Type Department Care Team (Late st Contact Info) Description 04/18/2024 Lab Requisition [facility] - Main Lab 299 [facility] [place] [address] Venus Belcher MD [address] [address] Cellulitis, unspecified Social History Tobacco Use Types [...] unspecified documented in this encounter Care Teams Portfolio Analyst Relationship Specialty Start Date End Date Venus Belcher MD [address] [place] [phone] PCP - General Family Medicine 04/06/24 documented as of this encounter
== END 2024-06-22 06:10 | disposition home or self-care (01) ==
LOC: CF 06:09
PROVIDERS: Visit Provider Anesthesiology
DX: M25.561 Pain in right knee (principal)
CPT/HCPCS: 64447; J2795

== ENCOUNTER 2024-06-22 07:08 | Outpatient (AMB) | payer MEDICARE, SELFPAY ==
--- OUTSIDE RECORDS SUMMARY | 2024-06-22 07:10 | XMS_ITS | Encounter Summary ---
Author Organization [facility] Address [address] [place] [address] Care Team Providers Care Compressor Service Technician Name Role Phone Venus Belcher MD Primary Care Provider + Encounter Details Date Type Department Care Team (Late st Contact Info) Description 04/06/2024 Lab Requisition [facility] - Main Lab [address] [place] [address] Venus Belcher MD 8[address] [facility] 1 [place], [place] [id number] Cellulitis, unspecified Social History Tobacco Use Types [...] LAB CHEMISTRY METHOD 04/06/2024 11:35 AM EST [facility] Potassium 4.5 3.5 - 5.5 mmol/L LAB CHEMISTRY METHOD 04/06/2024 11:35 AM EST [facility] LAB Comment:Hemolysis present Chloride 94(L) 96 - 110 mmol/L LAB CHEMISTRY METHOD 04/06/2024 11:[address] [facility] CO2 23 21 - 32 mmol/L LAB CHEMISTRY METHOD 04/06/2024 11:[address] [facility] Anion Gap 12(H) 3 - 11 LAB CHEMISTRY METHOD 04/06/2024 11:[address] [facility] Glucose 112(H) 70 - 100 mg/dL LAB CHEMISTRY METHOD 04/06/2024 11:[address] [facility] BUN 12 5 - 25 mg/dL LAB CHEMISTRY METHOD 04/06/2024 11:[address] [facility] Creatinine 1.03 0.70 - 1.30 mg/dL LAB CHEMISTRY METHOD 04/06/2024 11:[address] [facility] eGFR 80 >=60 mL/min/1. 73m2 LAB CHEMISTRY METHOD 04/06/2024 11:[address] [facility] Comment:Calculation based on the??Chronic Kidney Disease Epidemiology Collaboration (CKD-EPI) equation refit??without adjustment for race. BUN/Creatinine Ratio 11.7 LAB CHEMISTRY METHOD 04/06/2024 11:[address] [facility] Calcium 8.9 8.5 - 10.5 mg/dL LAB CHEMISTRY METHOD 04/06/2024 11:[address] [facility] AST (SGOT) 42 10 - 42 unit/L LAB CHEMISTRY METHOD 04/06/2024 11:[address] [facility] Comment:Hemolysis present ALT (SGPT) 30 10 - 60 unit/L LAB CHEMISTRY METHOD 04/06/2024 11:[address] [facility] Alkaline Phosphatase 75 42 - 121 unit/L LAB CHEMISTRY METHOD 04/06/2024 11:[address] [facility] Total Protein 6.8 6.0 - 8.0 g/dL LAB CHEMISTRY METHOD 04/06/2024 11:[address] [facility] Albumin 2.1(L) 3.2 - 5.0 g/dL LAB CHEMISTRY METHOD 04/06/2024 11:[address] [facility] Total Bilirubin 1.3 0.0 - 1.4 mg/dL LAB CHEMISTRY METHOD 04/06/2024 11:35 AM EST [facility] Blood Venous blood specimen / Unknown Venipuncture / Unknown 04/06/2024 9:00 AM EST 04/06/2024 9:48 AM EST us Venus Belcher MD LAB BLOOD ORDERABLES Fin al Result [facility]) [facility] [address] [place] [address], documented in this encounter Visit Diagnoses Diagnosis Cellulitis, unspecified documented in this encounter Care Teams Compressor Service Technician Relationship Specialty Start Date End Date Venus Belcher MD [address] [place] [id number] PCP - General Family Medicine 04/06/24 documented as of this encounter
--- OUTSIDE RECORDS SUMMARY | 2024-06-22 07:10 | XMS_ITS | Continuity of Care Document ---
Author Organization [facility] Address [address] [place] [address] Phone Care Team Providers Care Radio Dispatcher Name Role Phone Wyatt Hernandez Unavailable Unavailable [...] Telemedicine [place] & [place] [facility], [address], [place], [id number], [place] tel:[phone] [place] - [place] [facility] [place] Localized edemaCramp and spasmRestless legs syndromeVenou s insufficiency (chronic) (peripheral)L ymphedema, not elsewhere classifiedDis order of pigmentation, unspecifiedHe reditary lymphedema 5 Nakia Schneider. [address] [facility], [address], [place], [id number], [place]. tel:[phone] Referring Provider: Diego OGDEN Kolby, [address] [place] [address], [place], [address]. tel:[phone] Office/Oupt E&M New Pt 30 Mins- [place] & [place] [facility], [address] [place] [address] [address], [place], [id number], [place] tel:[phone] [facility] Varicose veins of bilateral lower extremities with other complications Cramp and spasmRestless legs syndromeVenou s insufficiency (chronic) (peripheral)L ymphedema, not elsewhere classifiedDis order of pigmentation, unspecifiedHe reditary lymphedema Mar-2 0 5 Maximiliano STAPLES RVT, RIRI Tran. [address] [place] [address], [place], [id number], [place]. tel:[phone] Referring Provider: Diego OGDEN Kolby, [address] [place] [address], [place], [address]. tel:[phone] [facility], [address] [place] [address] [address], [place], [id number], [place] tel:[phone] [facility] Chronic venous hypertension (idiopathic) with other complications of bilateral lower extremity Mar-2 0 5 Maximiliano STAPLES RVT, RPVI Robert. [address] [place] [address], [place], [id number], [place]. tel:[phone] Referring Provider: Diego OGDEN Kolby, [address] [place] [address], [address]. tel:[phone] Family History Family Member Type Diagnosis Age At Onset No Information Payers Payer name Insurance type Covered libertarian ID Authoriza tion(s) Medicare AVIVA PENA [id number] [facility] AVIVA DUR[place] [id number] Social History Type Description Quantity Date Captured [...] cessation counseling completed Goal Diet education completed Goal Tobacco cessation counseling completed Referral Ordered: Weight management: Referral to [...] Information Instructions Date Instruction Additional Infor mation Patient education booklet given Related to Localized edema Pre and post instruc tions reviewed and provided Related to Localized edema Diet education Related to Body mass index (BMI) 45.0-49.9, adult Giving Encouragement to exercise Related to Body mass index (BMI) 45.0-49.9, adult Lifestyle education Related to B rio mass index (BMI) 45.0-49.9, adult Patient education booklet given Related to Varicose veins of bilateral lower extremities with other complications Pre and post instruc tions reviewed and provided Related to Varicose veins of bilateral lower extremities with other complications Assessments Type Assessment Date assessment Restless legs syndrome assessment Venous insufficiency (chronic) ( peripheral) assessment Lymphedema, not elsewhere classi fied assessment Disorder of pigmentation, unspec ified assessment Hereditary lymphedema assessment Cramp and spasm assessment Localized edema Patient Care Teams Name Effective Dates (start - stop) Status Members No Information
--- OUTSIDE RECORDS SUMMARY | 2024-06-22 07:10 | XMS_ITS | Encounter Summary ---
Author Organization [facility] Address [address] [place] [address] Care Team Providers Care Forestry Technical Officer Name Role Phone Venus Belcher MD Primary Care Provider + Encounter Details Date Type Department Care Team (Late st Contact Info) Description 04/06/[address] [facility] - Main Lab [address] [place] [address] Venus Belcher MD [address] [place] [facility] 1 [place], [place] [phone] Cellulitis, unspecified Social History Tobacco Use Types [...] % LAB HEMETOLOGY METHOD 04/06/2024 3:24 PM [facility] LAB MCV 98.5(H) 79.0 - 98.0 FL LAB HEMETOLOGY METHOD 04/06/2024 3:24 PM [facility] LAB MCH 32.6(H) 27.0 - 32.0 pcg LAB HEMETOLOGY METHOD 04/06/2024 3:24 PM EST [facility] LAB MCHC 33.1 32.0 - 37.0 g/dL LAB HEMETOLOGY METHOD 04/06/2024 3:24 PM [facility] LAB RDW 13.9 11.0 - 15.0 % LAB HEMETOLOGY METHOD 04/06/2024 3:24 PM [facility] LAB Platelets 476(H) 130 - 400 K/mcL LAB HEMETOLOGY METHOD 04/06/2024 3:24 PM EST [facility] LAB MPV 9.8 7.0 - 11.0 FL LAB HEMETOLOGY METHOD 04/06/2024 3:24 PM EST [facility] LAB NRBC 0.0 <1.0 % LAB HEMETOLOGY METHOD 04/06/2024 3:24 PM [facility] LAB NRBC Absolute 0.00 <0.10 K/mcL LAB HEMETOLOGY METHOD 04/06/2024 3:24 PM [facility] LAB Blood Venous blood specimen / Unknown Venipuncture / Unknown 04/06/2024 1:21 PM EST 04/06/2024 2:57 PM EST us Venus Belcher MD LAB BLOOD ORDERABLES Fin al Result [facility] LAB [address] [place] [address], documented in this encounter Visit Diagnoses Diagnosis Cellulitis, unspecified documented in this encounter Care Teams Forestry Technical Officer Relationship Specialty Start Date End Date Venus Belcher MD [address] [address] PCP - General Family Medicine 04/06/24 documented as of this encounter
--- OUTSIDE RECORDS SUMMARY | 2024-06-22 07:10 | XMS_ITS | Encounter Summary ---
Author Organization [facility] Address [address] [place] [address] Care Team Providers Care Head Waiter/Waitress Name Role Phone Venus Belcher MD Primary Care Provider + Encounter Details Date Type Department Care Team (Late st Contact Info) Description 04/18/[address] [facility] - Main Lab 299 [facility] [place] [address] Venus Belcehr MD [address] [address] Cellulitis, unspecified Social History Tobacco Use Types [...] unspecified documented in this encounter Care Teams Head Waiter/Waitress Relationship Specialty Start Date End Date Venus Belcher MD [address] [place] [phone] PCP - General Family Medicine 04/06/24 documented as of this encounter
--- OUTSIDE RECORDS SUMMARY | 2024-06-22 07:10 | XMS_ITS | Clinical Summary ---
Author Organization [address] Address [address] [place] [address] Phone Care Team Providers Care Size Marker Name Role Phone Venus Belcher MD Primary Care Provider + Encounters Date Type Department Care Team Description 04/25/2024 Lab Requisition [facility] Lab [address] [place] [phone] Venus Belcher MD Cellulitis, unspecified 04/18/2024 Lab Requisition [facility] Lab [address] [place] [phone] Venus Belcher MD Cellulitis, unspecified 04/13/2024 Lab Requisition [facility] Lab [address] [place] [address] Venus Belcher MD Cellulitis, unspecified 04/06/2024 Lab Requisition [facility] Lab [address] [place] [address] Venus Belcher MD Cellulitis, unspecified 04/06/2024 Lab Requisition [facility] Lab [address] [place] [phone] Venus Belcher MD Cellulitis, unspecified from Last [...] PM EST) WBC 15.1(H) 4.8 - 10.8 K/[facility] LAB HEMETOLOGY METHOD 04/06/2024 3:24 PM [facility] LAB RBC 3.30(L) 4.50 - 5.50 M/mcL LAB HEMETOLOGY METHOD 04/06/2024 3:24 PM [facility] LAB Hemoglobin 10.9(L) 13.5 - 17.5 g/dL LAB HEMETOLOGY METHOD 04/06/2024 3:24 PM [facility] LAB Hematocrit 32.9(L) 42.0 - 54.0 % LAB HEMETOLOGY METHOD 04/06/2024 3:24 PM [facility] LAB MCV 98.5(H) 79.0 - 98.0 FL LAB HEMETOLOGY METHOD 04/06/2024 3:24 PM [facility] LAB MCH 32.6(H) 27.0 - 32.0 pcg LAB HEMETOLOGY METHOD 04/06/2024 3:24 PM [facility] LAB MCHC 33.1 32.0 - 37.0 g/dL LAB HEMETOLOGY METHOD 04/06/2024 3:24 PM [facility] LAB RDW 13.9 11.0 - 15.0 % LAB HEMETOLOGY METHOD 04/06/2024 3:24 PM [facility] LAB Platelets 476(H) 130 - 400 K/mcL LAB HEMETOLOGY METHOD 04/06/2024 3:24 PM [facility] LAB MPV 9.8 7.0 - 11.0 FL LAB HEMETOLOGY METHOD 04/06/2024 3:24 PM [facility] LAB NRBC 0.0 <1.0 % LAB HEMETOLOGY METHOD 04/06/2024 3:24 PM [facility] LAB NRBC Absolute 0.00 <0.10 K/mcL LAB HEMETOLOGY METHOD 04/06/2024 3:24 PM [facility] LAB Blood Venous blood specimen / Unknown Venipuncture / Unknown 04/06/2024 1:21 PM EST 04/06/2024 2:57 PM EST us Venus Belcher MD LAB BLOOD ORDERABLES Fin al Result [facility] LAB [address] [place] [address], [place] [phone] * (ABNORMAL) Comprehensive metabolic panel (04/06/2024 9:00 AM EST) Sodium 129(L) 133 - 145 mmol/L LAB CHEMISTRY METHOD 04/06/2024 11:35 AM [facility] LAB Potassium 4.5 3.5 - 5.5 mmol/L LAB CHEMISTRY METHOD 04/06/2024 11:35 AM [facility] LAB Comment:Hemolysis present Chloride [...] 04/06/2024 11:35 AM [facility] Blood Venous blood specimen / Unknown Venipuncture / Unknown 04/06/2024 9:00 AM EST 04/06/2024 9:48 AM EST us Venus Belcher MD LAB BLOOD ORDERABLES Fin al Result [facility] [address] [place] [address], from Last 3 Months Insurance MEDICARE [facility] Advance Directives Documents on File Type Date Recorded Patient Hogshead Cooper Expl anation Health Care Decision (hx) 04/17/2016 AD [place] DIRECTIVE Health Care Decision (hx) 04/17/2016 AD [place] DIRECTIVE Health Care Decision (hx) 04/17/2016 AD [place] DIRECTIVE Health Care Decision (hx) 04/17/2016 AD [place] DIRECTIVE Care Teams Size Marker Relationship Specialty Start Date End Date Venus Belcher MD [address] [place] [address] PCP - General Family Medicine 04/06/24
--- OUTSIDE RECORDS SUMMARY | 2024-06-22 07:10 | XMS_ITS | Encounter Summary ---
Author Organization [facility] Address [address] [place] [address] Care Team Providers Care Shipsmith Name Role Phone Venus Belcher MD Primary Care Provider + Encounter Details Date Type Department Care Team (Late st Contact Info) Description 04/25/2024 Lab Requisition [facility] - Main Lab 299 [facility] [place] [address] Venus Belcher MD [address] [address] Cellulitis, unspecified Social History Tobacco Use Types [...] unspecified documented in this encounter Care Teams Shipsmith Relationship Specialty Start Date End Date Venus Belcher MD [address] [place] [phone] PCP - General Family Medicine 04/06/24 documented as of this encounter
--- OUTSIDE RECORDS SUMMARY | 2024-06-22 07:10 | XMS_ITS | Encounter Summary ---
Author Organization [facility] Address [address] [place] [address] Care Team Providers Care Rope Maker Name Role Phone Venus Belcher MD Primary Care Provider + Encounter Details Date Type Department Care Team (Late st Contact Info) Description 04/13/2024 Lab Requisition [facility] - Main Lab 299 [facility] [place] [address] Venus Belcher MD [address] [address] Cellulitis, unspecified Social History Tobacco Use Types [...] unspecified documented in this encounter Care Teams Rope Maker Relationship Specialty Start Date End Date Venus Belcher MD [address] [place] [phone] PCP - General Family Medicine 04/06/24 documented as of this encounter
--- NOTE | 2024-06-22 07:19 | MHC.OFFVIS ---
Vital Signs 06/22/24 07:20 06/22/24 07:50 BP 124/68 120/72 Blood Pressure Location Rt brachial Lt brachial Position Sitting Sitting Respiration 16 16 Pulse 77 77 Pulse Source Pulse Oximeter Pulse Oximeter Pulse Oximetry (%) 96 97 Oxygen Delivery Method Room Air Room Air Intake Visit Reasons: RIGHT DIAGNOSTIC FEMORAL NERVE BLOCK Slicing Machine Operator/Tender Required: No Allergies No Known Allergies [No Known Allergies*] Allergy (Verified 06/22/24 07:20) Medication List - Last Reconciled 06/22/24 by Danette Kerr LPN albuterol sulfate 90 mcg/actuation 2 puffs PO Q6H PRN amiodarone 200 mg PO DAILY 90 days ammonium lactate 12% 1 appl topical BEDTIME Anoro Ellipta 62.5-25 mcg/actuation (umeclidinium-vilanterol) 1 inh PO DAILY 90 days NS ascorbic acid (vitamin C) 1 g PO DAILY 90 days atorvastatin 80 mg PO BEDTIME 90 days bumetanide 2 mg PO DAILY docusate sodium (Colace) 100 mg PO BID doxazosin 8 mg PO BEDTIME 90 days duloxetine 60 mg PO DAILY ferrous sulfate 324 mg PO DAILY finasteride 5 mg PO DAILY 90 days hospital bed Bariatric hospital bed methenamine hippurate 1 g PO DAILY 90 days methocarbamol 500 mg PO BEDTIME omeprazole 20 mg PO DAILY oxybutynin chloride ER 10 mg PO ONCE 90 days oxycodone 10 mg (2 x 5 mg) PO Q4H PRN [Powered bariatric recliner As directed] pregabalin 150 mg PO TID 90 days ropinirole 2 mg PO TID spironolactone 25 mg PO DAILY walker daily use (rolling sitting walker-bariatric size needed) zolpidem 10 mg PO BEDTIME PRN [facility], [facility] Medical History Chronic diastolic heart failure JEFFRY on CPAP Anemia Sepsis COPD (chronic obstructive pulmonary disease) Acute respiratory failure due to COVID-19 Community acquired pneumonia Viral sepsis Fatigue Acute on chronic diastolic CHF (congestive heart failure) COVID Morbid obesity Paroxysmal atrial fibrillation Congestive heart failure Testicular swelling Osteoarthritis of right knee Melanoma History of cardioversion Hereditary lymphedema Venous insufficiency Morbid obesity Lymphedema COPD (chronic obstructive pulmonary disease) Sensory neuropathy COVID-19 Respiratory failure with hypoxia Restrictive lung disease MATUTE (dyspnea on exertion) Chronic cystitis Bladder outlet obstruction Restless leg syndrome Traumatic complete tear of right rotator cuff Injury of right rotator cuff History of diverticulitis History of umbilical hernia Surgical History Hx of colonoscopy History of appendectomy History of arthroscopy of left knee Family History Father Arthritis Diabetes Mother Arthritis Kidney stones Family/Other Arthritis Sister No problems noted. Sister No problems noted. Son No problems noted. Social History Household Members: Spouse Household Members Other:: Housing: Condominium Do you presently have visiting nurse or other home services: Yes Unable to assess alcohol history related to: Unknown Alcohol intake: current Alcohol intake frequency: holidays/special occasions only Alcohol type: beer Comment: Refused bed alarm due to alarm sensitivity when changing positions. 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 Cognitive needs: No Hearing needs: No Vision needs: No Physical Exam Vital Signs: Last Vital Signs Pulse 77 06/22/24 07:50 Resp 16 06/22/24 07:50 BP 120/72 06/22/24 07:50 Pulse Ox 97 06/22/24 07:50 Oxygen Delivery Method Room Air 06/22/24 07:50 Assessment & Plan Assessment & Plan (1) Right knee pain: Code(s): M25.561 - Pain in right knee Category: Medical (2) Chronic pain syndrome: Code(s): G89.4 - Chronic pain syndrome Category: Medical (3) Osteoarthritis of right knee: Code(s): M17.11 - Unilateral primary osteoarthritis, right knee Category: Medical Qualifiers: Osteoarthritis type: primary Qualified Code(s): M17.11 - Unilateral primary osteoarthritis, right knee Plan Ultrasound-guided femoral nerve block right. The patient came to the operating room receive ultrasound-guided femoral nerve block to treat the chronic right knee pain. Informed consent was carefully explained to the patient risks and benefits were explained. Patient came to the examination room and positioned supine on the examination bed. His right groin area was exposed. The right groin area was prepped with ChloraPrep and draped with self adhesive utility towels. The time-out was performed delineating name and date of of the patient, nature of the procedure and laterality of the procedure. Sterilely draped ultrasound probe was brought to the area of the injection and the femoral artery femoral vein and femoral nerve were demonstrated on the screen. The 100 mm echo stim needle was inserted extra anatomically through the skin into subcutaneous tissues and driven toward the femoral nerve under direct vision. When tip of the needle was in the vicinity of the nerve injection of the saline 1-2 cc was performed demonstrating spread of the tissues surrounding the femoral nerve. After that injection of the ropivacaine 0.5% 8 cc was performed into the needle. Upon completion of the injection the needle was removed Band-Aid was applied. Patient tolerated the procedure well. Orders: Orders US guide needle placement Today M25.561 - Pain in right knee Coding Level of Care Code Procedure Only Diagnoses Right knee pain M25.561 Chronic pain syndrome G89.4 Primary osteoarthritis of right knee M17.11 Osteoarthritis type: primary
[2024-06-22 07:20] VITALS: BP 124/68; PULSE 77; RESP 16; O2SAT 96
[2024-06-22 07:50] VITALS: BP 120/72; PULSE 77; RESP 16; O2SAT 97
== END 2024-06-22 07:49 | disposition home or self-care (01) ==
LOC: HO.PMCPRC 07:08
PROVIDERS: PCP Nurse Practitioner Family; Visit Provider Anesthesiology
DX: M25.561 Pain in right knee (principal); M17.11 Unilateral primary osteoarthritis, right knee; G89.4 Chronic pain syndrome
CPT/HCPCS: 64447

== ENCOUNTER 2024-06-28 11:09 | Outpatient (AMB) | payer MEDICARE, SELFPAY ==
--- NOTE | 2024-06-28 11:26 | A.OFFVIS_ITS ---
Vital Signs 06/28/24 11:37 Height 6 ft 4 in Weight 413 lb 2.34 oz BMI 50.3 BP 120/72 Blood Pressure Location Rt brachial Position Sitting Pulse 84 Pulse Source Pulse Oximeter Pulse Oximetry (%) 98 Oxygen Delivery Method Room Air Intake Visit Reasons: RA Intake Note: Patient presents for RA follow up. Allergies No Known Allergies [No Known Allergies*] Allergy (Verified 06/28/24 11:36) Medication List - Last Reconciled 06/28/24 by Gita Urias MD albuterol sulfate 90 mcg/actuation 2 puffs PO Q6H PRN amiodarone 200 mg PO DAILY 90 days ammonium lactate 12% 1 appl topical BEDTIME Anoro Ellipta 62.5-25 mcg/actuation (umeclidinium-vilanterol) 1 inh PO DAILY 90 days NS ascorbic acid (vitamin C) 1 g PO DAILY 90 days atorvastatin 80 mg PO BEDTIME 90 days bumetanide 2 mg PO DAILY docusate sodium (Colace) 100 mg PO BID doxazosin 8 mg PO BEDTIME 90 days duloxetine 60 mg PO DAILY ferrous sulfate 324 mg PO DAILY finasteride 5 mg PO DAILY 90 days hospital bed Bariatric hospital bed methenamine hippurate 1 g PO DAILY 90 days methocarbamol 500 mg PO BEDTIME omeprazole 20 mg PO DAILY oxybutynin chloride ER 10 mg PO ONCE 90 days oxycodone 10 mg (2 x 5 mg) PO Q12H PRN 5 days [Powered bariatric recliner As directed] pregabalin 150 mg PO TID 90 days ropinirole 2 mg PO TID spironolactone 25 mg PO DAILY walker daily use (rolling sitting walker-bariatric size needed) zolpidem 10 mg PO BEDTIME PRN HPI Comments Details: Patient is a 69-year-old male with JEFFRY on CPAP, 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, chronic diastolic heart failure, COPD, AFib, polyarticular osteoarthritis status post left knee replacement here today for follow up Interval History: Patient last seen 02/10/[address] Acosta. At that time he was following up for his seronegative rheumatoid arthritis. He was on Actemra but continued to have diffuse joint pain. There was no evidence of any active synovitis and so patient was thought to have osteo arthritis. He received an injection in his left thumb Rheumatologic History: He was initially diagnosed as seronegative rheumatoid arthritis but despite immunosuppression with Orencia and Actemra there were no improvement in his symptoms. He was ultimately diagnosed with bilateral hand osteoarthritis. Initial history with Dr. Acosta: This is a 67-year-old male presents for evaluation of multiple joint pain. Patient states that he has diffuse pain everywhere. Including neck, shoulders, hands, knees, ankles and feet. States that he had left knee replacement 10 years ago. He has severe right knee osteoarthritis and receives periodic steroid injections which helped for 1 or 2 months. States that he has severe bilateral hand stiffness. It lasts all day. Associated with swelling. He can hardly make a fist. States that he used to take naproxen which was quite helpful for all his joint pain but he is no longer able to take it due to being on Eliquis for AFib Of note patient has restrictive lung disease and is on home oxygen. He also has a CPAP machine for sleep apnea Current Rheumatology Medication(s): [facility] Medical History (Updated 06/28/24 @ 11:51 by Gita Urias MD) Rib pain on left side Post-COVID syndrome Traumatic perinephric hematoma of left kidney Chronic diastolic heart failure JEFFRY on CPAP Anemia Sepsis COPD (chronic obstructive pulmonary disease) Acute respiratory failure due to COVID-19 Community acquired pneumonia Viral sepsis Fatigue Acute on chronic diastolic CHF (congestive heart failure) COVID Morbid obesity Paroxysmal atrial fibrillation Testicular swelling Osteoarthritis of right knee Melanoma History of cardioversion Hereditary lymphedema Venous insufficiency Lymphedema COPD (chronic obstructive pulmonary disease) Sensory neuropathy COVID-19 Respiratory failure with hypoxia Restrictive lung disease MATUTE (dyspnea on exertion) Chronic cystitis Bladder outlet obstruction Restless leg syndrome Traumatic complete tear of right rotator cuff Injury of right rotator cuff History of diverticulitis History of umbilical hernia Surgical History (Updated 06/28/24 @ 11:51 by Gita Urias MD) S/P shoulder surgery Status post total left knee replacement Hx of colonoscopy History of appendectomy History of arthroscopy of left knee Family History Father Arthritis Diabetes Mother Arthritis Kidney stones Family/Other Arthritis Sister No problems noted. Sister No problems noted. Son No problems noted. Social History Household Members: Spouse Household Members Other:: Housing: [facility] Do you presently have visiting nurse or other home services: Yes Unable to assess alcohol history related to: Unknown Alcohol intake: current Alcohol intake frequency: holidays/special occasions only Alcohol type: beer Comment: Refused bed alarm due to alarm sensitivity when changing positions. 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 Cognitive needs: No Hearing needs: No Vision needs: No Review of Systems Const Details: Review of Systems Constitutional: Denies fever, chills, weight loss ENT: Denies vision changes, eye pain or eye redness, dental caries, dry mouth GI: Denies nausea, vomiting, diarrhea, abdominal pain, change in BM Pulm: Denies SOB, MATUTE, hemoptysis, wheezing Cards: Denies chest pain, palpitations Skin: Denies Raynaud's, rash, nail changes, photosensitivity, TOP DYEING MACHINE TENDER: Denies headaches, weakness, paresthesias, recurrent falls MSK: as per HPI All other systems reviewed and are unremarkable except noted above Physical Exam Vital Signs: Last Vital Signs Pulse 84 06/28/24 11:37 BP 120/72 06/28/24 11:37 Pulse Ox 98 06/28/24 11:37 Oxygen Delivery Method Room Air 06/28/24 11:37 BMI result Body Mass Index 50.3 Vital signs reviewed Physical Examination CONSTITUITIONAL Patient alert and cooperative. Well appearing and in no apparent painful distress. Morbidly obese Examined in the chair HAs oxygen in the room but not using it at rest MSK Hands: ?Able to make a fist. No synovitis noted to the MCPs, PIPs or DIPs. ?No tenderness to palpation of these joints. No deformities noted. ? Wrists: ?Full range of motion at the wrists without pain. ?No tenderness to palp ation or synovitis noted to the wrists. Elbows: Full range of motion without pain. No tenderness, weakness, swelling, increased warmth or erythema. Shoulders: Full range of active range of motion without pain. No tenderness, weakness, swelling, increased warmth or erythema. Knees: ?Full range of motion. ?No tenderness, swelling, increased warmth or erythema.?No effusion. Crepitations of the right knee. Left knee with surgical scar Legs wrapped. Ankles with bilateral pitting edema Feet: ?Negative squeeze test. ?No tenderness to palpation or swelling of the MTPs. Tender points:?No tenderness to palpation of the bilateral trapezius, supraspinatus, greater trochanters, anterior costochondral junctions, bilateral gluteal areas, bilateral suboccipital muscle insertions SKIN Skin intact without rashes. Results Reviewed Results Reviewed: Laboratory Tests 06/14/24 10:55 WBC 11.0 H RBC 3.95 L Hgb 12.8 L Hct 38.0 L Plt Count 303 Sodium 135 Potassium 4.1 Chloride 100 Carbon Dioxide 25 BUN 23 H Creatinine 0.90 AST 30 ALT 14 XR Bilateral Hand/Wrist 12/2022 FINDINGS: RIGHT HAND: Severe degenerative changes in the 1st carpometacarpal joint and STT with joint space narrowing and hypertrophic change. Small periarticular cystic lucencies. Corticated 1.1 cm cystic lucency at the base of the 1st metacarpal. Degenerative changes with joint space narrowing and hypertrophic change in the metacarpophalangeal joint, most notable in the 1st MTP joint. Mild degenerative changes in the IP joint of the thumb. LEFT HAND: Moderate degenerative changes in the 1st carpometacarpal joint and STT with joint space narrowing and hypertrophic change. Small periarticular cystic lucencies. Moderate joint space narrowing in the metacarpophalangeal joints. Severe degenerative changes in the 5th digit PIP joint with hypertrophic change, central erosions and loss of the joint space. Moderate degenerative changes in the DIP joints, most notable in the 2nd DIP joint. IMPRESSION: Interval progression of degenerative changes in the bilateral hands, as detailed above. Assessment & Plan Assessment & Plan (1) Osteoarthritis of hands, bilateral: Code(s): M19.041 - Primary osteoarthritis, right hand; M19.042 - Primary osteoarthritis, left hand Category: Medical Qualifiers: Osteoarthritis type: primary Qualified Code(s): M19.041 - Primary o steoarthritis, right hand; M19.042 - Primary osteoarthritis, left hand Plan: #Polayrticular OA Patient is a 69 y.o. male with polyarticular joint pain, initially thought to be seronegative inflammatory disease but due to his non response to prednsione and other immunosuppression such as Oencia and Actemra it was determined that he had severe hand OA. Continues to complain of bilateral hand pain Recommended parrafin wax bath and topical diclofenac 1% 4 times a day. Re eval in 6 months. Can consider adding gabapentin Plan - Parrafin wax bath - Topical diclofenac 1% - RTC 6 months Plan I spent 25 minutes reviewing the record and labs, taking a history, examining the patient, discussing the treatment plan, ordering diagnostic work up and documenting in the medical record Medications: New diclofenac sodium 1% (Arthritis Pain (diclofenac)) apply to bilateral hand OA 4 grams topical QID 100 grams 5RF M19.041 - Primary osteoarthritis, right hand, M19.042 - Primary osteoarthritis, left hand Coding Level of Care Code Est Pt Level 3 (25067) Diagnoses Primary osteoarthritis of both hands M19.041; M19.042 Osteoarthritis type: primary
[2024-06-28 11:37] VITALS: BP 120/72; PULSE 84; O2SAT 98; BMI 50.3
--- OUTSIDE RECORDS SUMMARY | 2024-06-28 12:03 | XMS_ITS | Encounter Summary ---
Author Organization [facility] Address [address] [place] [address] Care Team Providers Care Breaker Up Machine Operator Name Role Phone Venus Belcher MD Primary Care Provider + Encounter Details Date Type Department Care Team (Late st Contact Info) Description 04/06/2024 Lab Requisition [facility] - Main Lab [address] [place] [address] Venus Belcher MD 8[address] [facility] 1 [place], [place] [phone] Cellulitis, unspecified Social History Tobacco Use Types [...] Result [facility] [address] [place] [address], documented in this encounter Visit Diagnoses Diagnosis Cellulitis, unspecified documented in this encounter Care Teams Breaker Up Machine Operator Relationship Specialty Start Date End Date Venus Belcher MD [address] [address] PCP - General Family Medicine 04/06/24 documented as of this encounter
--- OUTSIDE RECORDS SUMMARY | 2024-06-28 12:03 | XMS_ITS | Encounter Summary ---
Author Organization [facility] Address [address] [place] [phone] Care Team Providers Care Publishing Manager Name Role Phone Venus Belcher MD Primary Care Provider + Encounter Details Date Type Department Care Team (Late st Contact Info) Description 04/13/2024 Lab Requisition [facility] - Main Lab [address] [facility] [place] [address] Venus Belcher MD [address] [address] Cellulitis, unspecified Social History Tobacco Use Types [...] unspecified documented in this encounter Care Teams Publishing Manager Relationship Specialty Start Date End Date Venus Belcher MD [address] [place] [address] [phone] PCP - General Family Medicine 04/06/24 documented as of this encounter
--- OUTSIDE RECORDS SUMMARY | 2024-06-28 12:03 | XMS_ITS | Encounter Summary ---
Author Organization [facility] Address [address] [place] [phone] Care Team Providers Care Seo Professional Name Role Phone Venus Belcher MD Primary Care Provider + Encounter Details Date Type Department Care Team (Late st Contact Info) Description 04/25/2024 Lab Requisition [facility] - Main Lab [address] [facility] [place] [address] Venus Belcher MD [address] [address] Cellulitis, unspecified Social History Tobacco Use Types [...] unspecified documented in this encounter Care Teams Seo Professional Relationship Specialty Start Date End Date Venus Belcher MD [address] [place] [address] [phone] PCP - General Family Medicine 04/06/24 documented as of this encounter
--- OUTSIDE RECORDS SUMMARY | 2024-06-28 12:03 | XMS_ITS | Encounter Summary ---
Author Organization [facility] Address [id number] [place] [phone] Care Team Providers Care Sales Promotion Officer Name Role Phone Venus Belcher MD Primary Care Provider + Encounter Details Date Type Department Care Team (Late st Contact Info) Description 04/18/2024 Lab Requisition [facility] - Main Lab 299 [facility] [place] [address] Venus Belcher MD [address] [address] Cellulitis, unspecified Social History Tobacco Use Types [...] unspecified documented in this encounter Care Teams Sales Promotion Officer Relationship Specialty Start Date End Date Venus Belcher MD [address] [phone] PCP - General Family Medicine 04/06/24 documented as of this encounter
== END 2024-06-28 12:09 | disposition home or self-care (01) ==
LOC: HO.RHE 11:10
PROVIDERS: PCP Nurse Practitioner Family; Visit Provider Student in an Organized Health Care Education/Training Program
DX: M19.041 Primary osteoarthritis, right hand (principal); M19.042 Primary osteoarthritis, left hand
CPT/HCPCS: 99213

== ENCOUNTER → 2024-06-28 11:09 | Outpatient (BNVA) | payer MEDICARE, SELFPAY | PROVIDERS: PCP Nurse Practitioner Family; Visit Provider Student in an Organized Health Care Education/Training Program | DX: I50.32 Chronic diastolic (congestive) heart failure (principal); I48.0 Paroxysmal atrial fibrillation; I48.19 Other persistent atrial fibrillation; J44.9 Chronic obstructive pulmonary disease, unspecified; E66.01 Morbid (severe) obesity due to excess calories; M19.041 Primary osteoarthritis, right hand; M19.042 Primary osteoarthritis, left hand; Z68.43 Body mass index [BMI] 50.0-59.9, adult | CPT/HCPCS: 93005; 99212 ==

== ENCOUNTER 2024-06-28 12:22 | Outpatient (AMB) | payer MEDICARE, SELFPAY ==
--- NOTE | 2024-06-28 12:37 | A.OFFVIS_ITS ---
Vital Signs 06/28/24 12:39 Height 6 ft 4 in Weight 413 lb BMI 50.3 BP 110/64 Blood Pressure Location Lt brachial Position Sitting Pulse 68 Pulse Source Monitor Intake Visit Reasons: 4m follow up Intake Note: 4 mth f/up Cooker Operator Required: No Accompanied by: Self / Same As Patient Allergies No Known Allergies [No Known Allergies*] Allergy (Verified 06/28/24 11:36) Medication List - Last Reconciled 06/28/24 by Dejan King MD albuterol sulfate 90 mcg/actuation 2 puffs PO Q6H PRN amiodarone 200 mg PO DAILY 90 days ammonium lactate 12% 1 appl topical BEDTIME Anoro Ellipta 62.5-25 mcg/actuation (umeclidinium-vilanterol) 1 inh PO DAILY 90 days NS ascorbic acid (vitamin C) 1 g PO DAILY 90 days atorvastatin 80 mg PO BEDTIME 90 days bumetanide 2 mg PO DAILY diclofenac sodium 1% (Arthritis Pain (diclofenac)) 4 grams topical QID docusate sodium (Colace) 100 mg PO BID doxazosin 8 mg PO BEDTIME 90 days duloxetine 60 mg PO DAILY ferrous sulfate 324 mg PO DAILY finasteride 5 mg PO DAILY 90 days hospital bed Bariatric hospital bed methenamine hippurate 1 g PO DAILY 90 days methocarbamol 500 mg PO BEDTIME omeprazole 20 mg PO DAILY oxybutynin chloride ER 10 mg PO ONCE 90 days oxycodone 10 mg (2 x 5 mg) PO Q12H PRN 5 days [Powered bariatric recliner As directed] pregabalin 150 mg PO TID 90 days ropinirole 2 mg PO TID spironolactone 25 mg PO DAILY walker daily use (rolling sitting walker-bariatric size needed) zolpidem 10 mg PO BEDTIME PRN HPI Comments Details: Pleasant 69 gentleman here for follow-up. He has background history of morbid obesity, diastolic heart failure, COPD, peripheral edema/varicose veins and paroxysmal atrial fibrillation. 03/08/2024: He is returning for follow-up after recent admissions to [facility]. Last admission was for COVID-19 infection. He is saying that he has not been back to normal since then. He has been quite short of breath with activities. He is using oxygen more frequently. Previously was admitted with significant UTI which was related to empagliflozin. This has been discontinued at this stage. He has been using Bumex and has significant urine output with that. He is taking spironolactone 50 mg daily. Blood pressure is well controlled. He continues to be in sinus rhythm with amiodarone. On apixaban for anticoagulation. 06/28/24: Dinh is here for follow-up. He has been doing much better at this stage. Not requiring supplemental oxygen all the time. No chest discomfort. Previously he had perinephric hematoma while taking apixaban. This was a significant hematoma and apixaban has been discontinued and he was referred to Dr. Farfan for Watchman placement. He has seen him today and we will potentially be going for a Watchman device soon. [facility] Medical History (Updated 06/28/24 @ 11:51 by Gita Urias MD) Rib pain on left side Post-COVID syndrome Traumatic perinephric hematoma of left kidney Chronic diastolic heart failure JEFFRY on CPAP Anemia Sepsis COPD (chronic obstructive pulmonary disease) Acute respiratory failure due to COVID-19 Community acquired pneumonia Viral sepsis Fatigue Acute on chronic diastolic CHF (congestive heart failure) COVID Morbid obesity Paroxysmal atrial fibrillation Testicular swelling Osteoarthritis of right knee Melanoma History of cardioversion Hereditary lymphedema Venous insufficiency Lymphedema COPD (chronic obstructive pulmonary disease) Sensory neuropathy COVID-19 Respiratory failure with hypoxia Restrictive lung disease MATUTE (dyspnea on exertion) Chronic cystitis Bladder outlet obstruction Restless leg syndrome Traumatic complete tear of right rotator cuff Injury of right rotator cuff History of diverticulitis History of umbilical hernia Surgical History S/P shoulder surgery Status post total left knee replacement Hx of colonoscopy History of appendectomy History of arthroscopy of left knee Family History Father Arthritis Diabetes Mother Arthritis Kidney stones Family/Other Arthritis Sister No problems noted. Sister No problems noted. Son No problems noted. Social History Household Members: Spouse Household Members Other:: [facility]: [facility] Do you presently have visiting nurse or other home services: Yes Unable to assess alcohol history related to: Unknown Alcohol intake: current Alcohol intake frequency: holidays/special occasions only Alcohol type: beer Comment: Refused bed alarm due to alarm sensitivity when changing positions. 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 Cognitive needs: No Hearing needs: No Vision needs: No Review of Systems Const Denies chills, Denies fatigue, Denies fever(s), Denies frequent falls, Denies weakness, Denies weight gain and Denies weight loss ENT Denies dizziness Card Denies chest pain, Denies leg edema, Denies lightheadedness, Denies palpitations, Denies dyspnea and Denies dyspnea on exertion Resp Denies cough, Denies dyspnea and Denies dyspnea on exertion GI Denies hematochezia Musc Denies abnormal gait, Denies muscle weakness, Denies numbness, Denies radiating pain into limb and Denies tingling Neuro Denies abnormal gait, Denies dizziness, Denies frequent falls, Denies numbness, Denies tingling and Denies weakness Endo Denies fatigue and Denies palpitations Physical Exam Vital Signs: Last Vital Signs Pulse 68 06/28/24 12:39 BP 110/64 06/28/24 12:39 BMI result Body Mass Index 50.3 GENERAL APPEARANCE: Morbid obesity. NECK: no carotid bruit, no obvious jugular venous distention. SKIN: no suspicious lesions, warm and dry. HEART: no murmurs, regular rate and rhythm. LUNGS: clear to auscultation bilaterally. ABDOMEN: soft, nontender. EXTREMITIES: + edema. PERIPHERAL PULSES: equal. NEUROLOGIC: No gross deficits, AAO X 3 Office Procedures EKG Details: Sinus rhythm 68 beats per minute, right bundle-branch block, QTC 478 milliseconds. [id number], Complete Assessment & Plan Assessment & Plan (1) Chronic diastolic heart failure: Code(s): I50.32 - Chronic diastolic (congestive) heart failure Category: Medical (2) COPD (chronic obstructive pulmonary disease): Comment: COPD/reactive airways, His shortness of breath and cough is somewhat increased . He did have COVID infection about 4 weeks ago, but it did not result in any pneumonia. Code(s): J44.9 - Chronic obstructive pulmonary disease, unspecified Category: Medical (3) A-fib: Code(s): I48.91 - Unspecified atrial fibrillation Category: Medical Qualifiers: Atrial fibrillation type: persistent (not longstanding) Qualified Code(s): I48.19 - Other persistent atrial fibrillation Plan Pleasant 69 year gentleman with background history of chronic diastolic heart failure, paroxysmal atrial fibrillation and lung disease presenting for follow- up. He had a bad COVID-19 infection requiring hospitalization and steroids. Subsequent to that he also was in the hospital with urinary tract infection. Clinically he has done well since then and appears to be fairly euvolemic at this stage. Continue same dose of medications. He unfortunately had a spontaneous perinephric hematoma which led to referral for Watchman placement. He will be undergoing Watchman device soon. Continue to hold Eliquis for now. Doing much better from heart failure point of view. Same medications for now. Thank you for allowing me to participate in the care of your patient. Please feel free to contact me if you have any questions. Coding Level of Care Code Est Pt Level 4 (24806) Diagnoses Chronic diastolic heart failure I50.32 COPD (chronic obstructive pulmonary disease) J44.9 Persistent atrial fibrillation I48.19 Atrial fibrillation type: persistent (not longstanding) CPT Codes EKG - CPT: 00379-[id number], Complete ([id number])
[2024-06-28 12:39] VITALS: BP 110/64; PULSE 68; BMI 50.3
--- OUTSIDE RECORDS SUMMARY | 2024-06-28 12:51 | XMS_ITS | Clinical Summary ---
Author Organization [address] Address [address] [place] [address] Phone Care Team Providers Care Agricultural Equipment Sales Engineer Name Role Phone Venus Belcher MD Primary Care Provider + Encounters Date Type Department Care Team Description 04/25/2024 Lab Requisition [facility] Lab [address] [place] [phone] Venus Belcher MD Cellulitis, unspecified 04/18/2024 Lab Requisition [facility] Lab [address] [place] [phone] Venus Belcher MD Cellulitis, unspecified 04/13/2024 Lab Requisition [facility] Lab [address] [place] [address] Venus Belcher MD Cellulitis, unspecified 04/06/2024 Lab Requisition [facility] Lab [address] [place] [address] Venus Belcher MD Cellulitis, unspecified 04/06/2024 Lab Requisition [facility] Lab [address] [place] [phone] Venus Belcher MD Cellulitis, unspecified from Last [...] PM EST) WBC 15.1(H) 4.8 - 10.8 K/[facility] LAB HEMETOLOGY METHOD 04/06/2024 3:24 PM PORTER [...] al Result [facility] [address] [place] [address], [place] [phone] * (ABNORMAL) Comprehensive metabolic panel (04/06/2024 9:00 [...] al Result [facility] [address] [place] [address], from Last 3 Months Insurance [facility] Advance Directives Documents on File Type Date Recorded Patient Lamp Tester And Inspector Expl anation Health Care Decision (hx) 04/17/2016 AD [place] DIRECTIVE Health Care Decision (hx) 04/17/2016 AD [place] DIRECTIVE Health Care Decision (hx) 04/17/2016 AD [place] DIRECTIVE Health Care Decision (hx) 04/17/2016 AD [place] DIRECTIVE Care Teams Agricultural Equipment Sales Engineer Relationship Specialty Start Date End Date Venus Belcher MD [address] [place] [address] PCP - General Family Medicine 04/06/24
--- OUTSIDE RECORDS SUMMARY | 2024-06-28 12:51 | XMS_ITS | Encounter Summary ---
Author Organization [facility] Address [address] [place] [phone] Care Team Providers Care Paper Production Engineer Name Role Phone Venus Belcher MD Primary Care Provider + Encounter Details Date Type Department Care Team (Late st Contact Info) Description 04/18/2024 Lab Requisition [facility] - Main Lab 299 [facility] [place] [address] Venus Belcher MD [address] [address] Cellulitis, unspecified Social History Tobacco Use Types [...] unspecified documented in this encounter Care Teams Paper Production Engineer Relationship Specialty Start Date End Date Venus Belcher MD [address] [phone] PCP - General Family Medicine 04/06/24 documented as of this encounter
--- OUTSIDE RECORDS SUMMARY | 2024-06-28 12:51 | XMS_ITS | Encounter Summary ---
Author Organization [facility] Address [address] [place] [address] Care Team Providers Care Telesales Specialist Name Role Phone Venus Belcher MD Primary Care Provider + Encounter Details Date Type Department Care Team (Late st Contact Info) Description 04/06/[address] [facility] - Main Lab 299 [place] [address] Venus Belcher MD 819 [facility] 1 [place], [place] [phone] Cellulitis, unspecified Social History Tobacco Use Types [...] % LAB HEMETOLOGY METHOD 04/06/2024 3:[address] [facility] MCV 98.5(H) 79.0 - 98.0 FL LAB HEMETOLOGY METHOD 04/06/2024 3:[address] [facility] MCH 32.6(H) 27.0 - 32.0 pcg LAB HEMETOLOGY METHOD 04/06/2024 3:24 PM EST [facility] MCHC 33.1 32.0 - 37.0 g/dL LAB HEMETOLOGY METHOD 04/06/2024 3:[address] [facility] RDW 13.9 11.0 - 15.0 % LAB HEMETOLOGY METHOD 04/06/2024 3:[address] [facility] Platelets 476(H) 130 - 400 K/mcL LAB HEMETOLOGY METHOD 04/06/2024 3:24 PM EST [facility] MPV 9.8 7.0 - 11.0 FL LAB HEMETOLOGY METHOD 04/06/2024 3:24 PM EST [facility] NRBC 0.0 <1.0 % LAB HEMETOLOGY METHOD 04/06/2024 3:[address] [facility] NRBC Absolute 0.00 <0.10 K/mcL LAB HEMETOLOGY METHOD 04/06/2024 3:[address] [facility] Blood Venous blood specimen / Unknown Venipuncture / Unknown 04/06/2024 1:21 PM EST 04/06/2024 2:57 PM EST us Venus Belcher MD LAB BLOOD ORDERABLES Fin al Result [facility] [address] [place] [address], documented in this encounter Visit Diagnoses Diagnosis Cellulitis, unspecified documented in this encounter Care Teams Telesales Specialist Relationship Specialty Start Date End Date Venus Belcher MD [address] [address] PCP - General Family Medicine 04/06/24 documented as of this encounter
--- OUTSIDE RECORDS SUMMARY | 2024-06-28 12:51 | XMS_ITS | Encounter Summary ---
Author Organization [facility] Address [address] [place] [phone] Care Team Providers Care Project Management Analyst Name Role Phone Venus Belcher MD Primary Care Provider + Encounter Details Date Type Department Care Team (Late st Contact Info) Description 04/25/2024 Lab Requisition [facility] - Main Lab 299 [facility] [place] [address] Venus Belcher MD [address] [address] Cellulitis, unspecified Social History Tobacco Use Types [...] unspecified documented in this encounter Care Teams Project Management Analyst Relationship Specialty Start Date End Date Venus Belcher MD [address] [place] [phone] PCP - General Family Medicine 04/06/24 documented as of this encounter
--- OUTSIDE RECORDS SUMMARY | 2024-06-28 12:51 | XMS_ITS | Encounter Summary ---
Author Organization [facility] Address [address] [place] [phone] Care Team Providers Care Beef Cattle Grazier Name Role Phone Venus Belcher MD Primary Care Provider + Encounter Details Date Type Department Care Team (Late st Contact Info) Description 04/13/2024 Lab Requisition [facility] - Main Lab 299 [facility] [place] [address] Venus Belcher MD [address] [address] Cellulitis, unspecified Social History Tobacco Use Types [...] unspecified documented in this encounter Care Teams Beef Cattle Grazier Relationship Specialty Start Date End Date Venus Belcher MD [address] [place] [phone] PCP - General Family Medicine 04/06/24 documented as of this encounter
--- OUTSIDE RECORDS SUMMARY | 2024-06-28 12:51 | XMS_ITS | Continuity of Care Document ---
Author Organization [facility] Address [address] [facility] [address] [place] [address] Phone Care Team Providers Care Doctor Podiatric Medicine Name Role Phone Maximiliano STAPLES, GY, Marc MENEZES Unavailable U navailable Procedures Procedure Date Inj Scleros Solut; Mx Veins 1- CT & [place] M Ultrason Guidan Needle Bx-rad- CT & [place] M Offic/outpt E&m Estab 5 Min Trial- Telem edicine CT & [place] Office/Oupt E&M New Pt 30 Mins- CT & [place] Duplex Scan-extrem Veins; Comp- CT & [place] Advance Directives Directive Yes / No Effective Date File Name No Information Encounters Encounter Description Practice Location Reason(s) For Visit Diagnoses Date Provider Providers Copied on Encounter [facility], [address] [place] [address] [address], [place], [id number], tel:[phone] [facility] - [place] Varicose veins of left lower extremity with other complications 5 Maximiliano STAPLES, YG, RIRI Tran. [address] [facility] [address], [place], [id number], [place]. tel:[phone] Referring Provider: Diego Jarrett, [address] [facility], [place], [address]. tel:[phone] Offic/outpt E&m Estab 5 Min Trial- Telemedicine CT & [place] [facility], [address] [place] [address] [address], [id number], [place] tel:[phone] [facility] [place] Localized edemaCramp and spasmRestless legs syndromeVenou s insufficiency (chronic) (peripheral)L ymphedema, not elsewhere classifiedDis order of pigmentation, unspecifiedHe reditary lymphedema 5 Nak[address] [place] [address], [place], [place], [id number], [place]. tel:[phone] Referring Provider: Diego Jarrett, [address] [place] [address], [place], [address]. tel:[phone] Office/Oupt E&M New Pt 30 Mins- CT & [place] [facility], [address] [place] [address] [address] [place], [id number], [place] tel:[phone] [facility]icose veins of bilateral lower extremities with other complications Cramp and spasmRestless legs syndromeVenou s insufficiency (chronic) (peripheral)L ymphedema, not elsewhere classifiedDis order of pigmentation, unspecifiedHe reditary lymphedema 5 Maximiliano STAPLES RVT, RIRI Tran. [address] [place] [address], [place], [place], [id number], [place]. tel:[phone] Referring Provider: Diego Jarrett, [address] [place] [address], [place], [address]. tel:[phone] [facility], [address] [place] [address] [address] [place], [id number], [place] tel:[phone] [facility] Chronic venous hypertension (idiopathic) with other complications of bilateral lower extremity 5 Maximiliano STAPLES RVT, RIRI Tran. [address] [place] [address], [place], [place], [id number], [place]. tel:[phone] Referring Provider: Diego Augustine NP-JULIO Jarrett, [address] [facility], [place], [address]. tel:[phone] Family History Family Member Type Diagnosis Age At Onset No Information Payers Payer name Insurance type Covered democrat ID Authoriza tion(s) Medicare AVIVA PENA [id number] BC AVIVA [id number] Social History Type Description Quantity Date Captured Comments Sex Male Smoking Status No Information Chief Complaint And Reason For Visit No [...] with other complications Assessments Type Assessment Date No Information Patient Care Teams Name Effective Dates (start - stop) Status Members No Information
== END 2024-06-28 13:15 | disposition home or self-care (01) ==
LOC: HO.HCS 12:23
PROVIDERS: PCP Nurse Practitioner Family; Visit Provider Internal Medicine Cardiovascular Disease
DX: I50.32 Chronic diastolic (congestive) heart failure (principal); J44.9 Chronic obstructive pulmonary disease, unspecified; I48.19 Other persistent atrial fibrillation
CPT/HCPCS: 93010; 99214

== ENCOUNTER 2024-06-30 08:32 | Outpatient (AMB) | payer MEDICARE, SELFPAY ==
--- NOTE | 2024-06-30 08:46 | A.OFFVIS_ITS ---
Vital Signs 06/30/24 08:48 Height 6 ft 4 in Weight 409 lb BMI 49.8 BP 182/72 H Blood Pressure Location Lt radial Position Sitting Respiration 18 Pulse 78 Pulse Source Pulse Oximeter Pulse Oximetry (%) 95 Oxygen Delivery Method Room Air Intake Visit Reasons: RIGHT DIAGNOSTIC FEMORAL NERVE BLOCK Allergies No Known Allergies [No Known Allergies*] Allergy (Verified 06/30/24 08:49) Medication List - Last Reconciled 06/30/24 by Danette Kerr LPN albuterol sulfate 90 mcg/actuation 2 puffs PO Q6H PRN amiodarone 200 mg PO DAILY 90 days ammonium lactate 12% 1 appl topical BEDTIME Anoro Ellipta 62.5-25 mcg/actuation (umeclidinium-vilanterol) 1 inh PO DAILY 90 days NS ascorbic acid (vitamin C) 1 g PO DAILY 90 days atorvastatin 80 mg PO BEDTIME 90 days bumetanide 2 mg PO DAILY diclofenac sodium 1% (Arthritis Pain (diclofenac)) 4 grams topical QID docusate sodium (Colace) 100 mg PO BID doxazosin 8 mg PO BEDTIME 90 days duloxetine 60 mg PO DAILY ferrous sulfate 324 mg PO DAILY finasteride 5 mg PO DAILY 90 days hospital bed Bariatric hospital bed methenamine hippurate 1 g PO DAILY 90 days methocarbamol 500 mg PO BEDTIME omeprazole 20 mg PO DAILY oxybutynin chloride ER 10 mg PO ONCE 90 days oxycodone 10 mg (2 x 5 mg) PO Q12H PRN 5 days [Powered bariatric recliner As directed] pregabalin 150 mg PO TID 90 days ropinirole 2 mg PO TID spironolactone 25 mg PO DAILY walker daily use (rolling sitting walker-bariatric size needed) zolpidem 10 mg PO BEDTIME PRN HPI Comments Details: Dinh is back in my office after diagnostic ultrasound-guided right femoral nerve block. He reported absence of pain for the 1st 14 hours after the procedure with immediate improvement with his mobility, activities of daily living, and social interactions. He is scheduled for appointment with Dr. Franks to discuss total knee replacement. I suspect he would be given conditions to perform this procedure such as weight loss and pulmonary function improvement. However with us he only needs to pass through psychological evaluation to be candidate for PNS freedom/cure on X. I recommended him to complete psych evaluation as soon as possible and then we will go for the trial of femoral nerve stimulation freedom. Because of the history of cellulitis I need to send him for MRSA testing before the procedure. Prior: complains on pain in the right knee. Pain started 2 years ago. He is suffering from osteoarthritis related to severe obesity. He reports crepitus sensation in his knee with walking. He reports pain on anterior and posterior surfaces of the knee. He reports his pain in the knees 10/10. He was referred here by Orthopedic surgery who do not want to perform total knee replacement for him because of his excessive body mass and congestive heart failure as well as COPD and obstructive sleep apnea. He is not able to sleep normally can not do activities of daily living he can take care of himself but he can not function normally. Weather changes and motions aggravate his pain in the knee. He had x-rays available in the chart demonstrating severe tricompartmental right knee arthritis. He had multiple sessions of physical therapy last time he did 4 days ago on 06/06/24. He had 2 injections of steroids without any success into his knee he had 2 gel injections as well into his right knee unfortunately they were not effective. His past medical history significant for CHF morbid obesity COPD and obstructive sleep apnea he has right sided heart failure with normal ejection fraction. His past surgical history significant for left total knee replacement 2012 and right shoulder rotator cuff repair 8 years ago. She recently was admitted for cellulitis and lymphedema and spent some time in the hospital. Social history he is retired individual he denies smoking cigarettes he admits to drink 1 beer a day he drinks 2 cups of coffee a day and he uses cannabis tincture. [facility] Medical History (Updated 06/28/24 @ 11:51 by Gita Urias MD) Rib pain on left side Post-COVID syndrome Traumatic perinephric hematoma of left kidney Chronic diastolic heart failure JEFFRY on CPAP Anemia Sepsis COPD (chronic obstructive pulmonary disease) Acute respiratory failure due to COVID-19 Community acquired pneumonia Viral sepsis Fatigue Acute on chronic diastolic CHF (congestive heart failure) COVID Morbid obesity Paroxysmal atrial fibrillation Testicular swelling Osteoarthritis of right knee Melanoma History of cardioversion Hereditary lymphedema Venous insufficiency Lymphedema COPD (chronic obstructive pulmonary disease) Sensory neuropathy COVID-19 Respiratory failure with hypoxia Restrictive lung disease MATUTE (dyspnea on exertion) Chronic cystitis Bladder outlet obstruction Restless leg syndrome Traumatic complete tear of right rotator cuff Injury of right rotator cuff History of diverticulitis History of umbilical hernia Surgical History S/P shoulder surgery Status post total left knee replacement Hx of colonoscopy History of appendectomy History of arthroscopy of left knee Family History Father Arthritis Diabetes Mother Arthritis Kidney stones Family/Other Arthritis Sister No problems noted. Sister No problems noted. Son No problems noted. Social History Household Members: Spouse Household Members Other:: Housing: Condominium Do you presently have visiting nurse or other home services: Yes Unable to assess alcohol history related to: Unknown Alcohol intake: current Alcohol intake frequency: holidays/special occasions only Alcohol type: beer Comment: Refused bed alarm due to alarm sensitivity when changing positions. 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 Cognitive needs: No Hearing needs: No Vision needs: No Review of Systems Const All systems reviewed & are unremarkable except as noted in HPI and below ENT Reports Normal hearing present Neuro Reports Normal hearing present, Denies Abnormal speech present, Denies confusion and Denies Sensory deficit (Neuro) Psych Denies confusion Physical Exam Vital Signs: Last Vital Signs Pulse 78 06/30/24 08:48 Resp 18 06/30/24 08:48 BP 182/72 H 06/30/24 08:48 Pulse Ox 95 06/30/24 08:48 Oxygen Delivery Method Room Air 06/30/24 08:48 BMI result Body Mass Index 49.8 Const General: no acute distress; No confusion Nutritional Appearance: obese morbidly obese Orientation/consciousness: patient oriented x3 and No confusion Eyes General: appearance normal, both eyes and all related structures Pupils: Equal, round and reactive pupils present EOM: EOMs intact bilaterally Neck Neck: Yes full ROM Chest Chest palpation & inspection: normal inspection of the chest Resp Effort & Inspection: normal respiratory effort, able to speak in complete sentences, normal respiratory pattern, no audible wheezes and no cough Cardio Jugular venous distension: no JVD GI Inspection: Yes normal to inspection Neuro General: patient oriented x3, gait normal and No confusion Cranial nerves: Yes CN's II-XII intact bilaterally, Yes Equal, round and reactive pupils present, Yes Normal hearing present and Yes Ability to bilaterally elevate shoulders present Speech: No Abnormal speech present Gait exam (Neuro): Normal gait present Motor exam (neuro): 5/5 motor strength present throughout Sensory Exam: No Sensory deficit (Neuro) Extrem Other: Right knee: Skin intact, no erythema or joint effusion. Tenderness along the medial and lateral joint line. Tenderness on anterior and posterior surfaces of the right knee. Full ROM with crepitus. Negative Imnal?s. No ligamentous laxity. NVI. General: No pedal edema Psych Speech and movement: Normal speech and movement present Affect: normal affect Attitude: cooperative Thought process: Normal thought process present Thought content: Normal thought content present Insight: Good insight present (Psych) Judgement: Good judgement present (Psych) Assessment & Plan Assessment & Plan (1) Right knee pain: Code(s): M25.561 - Pain in right knee Category: Medical (2) Chronic pain syndrome: Code(s): G89.4 - Chronic pain syndrome Category: Medical (3) Osteoarthritis of right knee: Code(s): M17.11 - Unilateral primary osteoarthritis, right knee Category: Medical Qualifiers: Osteoarthritis type: primary Qualified Code(s): M17.11 - Unilateral primary osteoarthritis, right knee Plan Femoral nerve block resulted in very good pain improvement for this patient. I believe sprint PNS would be very difficult for him to keep on because of his severe obesity. I do not believe he will be able to hold the stimulator for 8 weeks. I do not believe his condition will improve any time soon and of soon after the removal of the sprint device the pain will return. Therefore I offered freedom/curonix PNS for this patient. He needs to go for psychological evaluation. He will need to seat with psychologist in the office on 07/13/2024 because he does not have computer at home. I will send him for MRSA testing before the procedure because he has a history of cellulitis. Coding Level of Care Code Est Pt Level 3 (42702) Diagnoses Right knee pain M25.561 Chronic pain syndrome G89.4 Primary osteoarthritis of right knee M17.11 Osteoarthritis type: primary
[2024-06-30 08:48] VITALS: BP 182/72; PULSE 78; RESP 18; O2SAT 95; BMI 49.8
--- OUTSIDE RECORDS SUMMARY | 2024-06-30 08:49 | XMS_ITS | Encounter Summary ---
Author Organization [facility] Address [address] [place] [address] Care Team Providers Care Finish Patcher Name Role Phone Venus Belcher MD Primary Care Provider + Encounter Details Date Type Department Care Team (Late st Contact Info) Description 04/06/2024 Lab Requisition [facility] - Main Lab [address] [place] [address] Venus Belcher MD 819 [facility] 1 [place], [place] [phone] Cellulitis, unspecified Social History Tobacco Use Types [...] LAB HEMETOLOGY METHOD 04/06/2024 3:24 PM EST [facility] RBC 3.30(L) 4.50 - 5.50 M/mcL LAB HEMETOLOGY METHOD 04/06/2024 3:24 PM EST [facility] Hemoglobin 10.9(L) 13.5 - 17.5 g/dL LAB HEMETOLOGY METHOD 04/06/2024 3:24 PM EST [facility] Hematocrit 32.9(L) 42.0 - 54.0 % LAB HEMETOLOGY METHOD 04/06/2024 3:24 PM [facility] LAB MCV 98.5(H) 79.0 - 98.0 FL LAB HEMETOLOGY METHOD 04/06/2024 3:24 PM [facility] LAB MCH 32.6(H) 27.0 - 32.0 pcg LAB HEMETOLOGY METHOD 04/06/2024 3:24 PM EST [facility] MCHC 33.1 32.0 - 37.0 g/dL LAB HEMETOLOGY METHOD 04/06/2024 3:24 PM [facility] LAB RDW 13.9 11.0 - 15.0 % LAB HEMETOLOGY METHOD 04/06/2024 3:24 PM [facility] LAB Platelets 476(H) 130 - 400 K/mcL LAB HEMETOLOGY METHOD 04/06/2024 3:24 PM EST [facility] MPV 9.8 7.0 - 11.0 FL LAB HEMETOLOGY METHOD 04/06/2024 3:24 PM EST [facility] NRBC 0.0 <1.0 [...] al Result [facility] [address] [place] [address], documented in this encounter Visit Diagnoses Diagnosis Cellulitis, unspecified documented in this encounter Care Teams Finish Patcher Relationship Specialty Start Date End Date Venus Belcher MD [address] [address] PCP - General Family Medicine 04/06/24 documented as of this encounter
--- OUTSIDE RECORDS SUMMARY | 2024-06-30 08:49 | XMS_ITS | Encounter Summary ---
Author Organization [facility] Address [address] [place] [address] Care Team Providers Care Rampman Name Role Phone Venus Belcher MD Primary Care Provider + Encounter Details Date Type Department Care Team (Late st Contact Info) Description 04/06/2024 Lab Requisition [facility] - Main Lab [address] [place] [address] Venus Belcher MD 819 [facility] 1 [place], [place] [phone] Cellulitis, unspecified Social History Tobacco Use Types [...] LAB CHEMISTRY METHOD 04/06/2024 11:35 AM EST [facility] Potassium 4.5 3.5 - 5.5 mmol/L LAB CHEMISTRY METHOD 04/06/2024 11:35 AM EST [facility] Comment:Hemolysis present Chloride 94(L) 96 - 110 mmol/L LAB CHEMISTRY METHOD 04/06/2024 11:35 AM [facility] CO2 23 21 - 32 mmol/L LAB CHEMISTRY METHOD 04/06/2024 11:35 AM [facility] Anion Gap 12(H) 3 - 11 LAB CHEMISTRY METHOD 04/06/2024 11:35 AM [facility] Glucose 112(H) 70 - 100 mg/dL LAB CHEMISTRY METHOD 04/06/2024 11:35 AM [facility] BUN 12 5 - 25 mg/dL LAB CHEMISTRY METHOD 04/06/2024 11:35 AM [facility] Creatinine 1.03 0.70 - 1.30 mg/dL LAB CHEMISTRY METHOD 04/06/2024 11:35 AM [facility] eGFR 80 >=60 mL/min/1. 73m2 LAB CHEMISTRY METHOD 04/06/2024 11:35 AM [facility] Comment:Calculation based on the??Chronic Kidney Disease Epidemiology Collaboration (CKD-EPI) equation refit??without adjustment for race. BUN/Creatinine Ratio 11.7 LAB CHEMISTRY METHOD 04/06/2024 11:35 AM [facility] Calcium 8.9 8.5 - 10.5 mg/dL LAB CHEMISTRY METHOD 04/06/2024 11:35 AM [facility] AST (SGOT) 42 10 - 42 unit/L LAB CHEMISTRY METHOD 04/06/2024 11:35 AM [facility] Comment:Hemolysis present ALT (SGPT) 30 10 - 60 unit/L LAB CHEMISTRY METHOD 04/06/2024 11:35 AM [facility] Alkaline Phosphatase 75 42 - 121 unit/L LAB CHEMISTRY METHOD 04/06/2024 11:35 AM [facility] Total Protein 6.8 6.0 - 8.0 g/dL LAB CHEMISTRY METHOD 04/06/2024 11:35 AM [facility] Albumin 2.1(L) 3.2 - 5.0 g/dL LAB CHEMISTRY METHOD 04/06/2024 11:35 AM [facility] Total Bilirubin 1.3 0.0 - 1.4 mg/dL LAB CHEMISTRY METHOD 04/06/2024 11:35 AM EST [facility] Blood Venous blood specimen / Unknown Venipuncture / Unknown 04/06/2024 9:00 AM EST 04/06/2024 9:48 AM EST us Venus Belcher MD LAB BLOOD ORDERABLES Fin al Result [facility] [address] [place] [address], documented in this encounter Visit Diagnoses Diagnosis Cellulitis, unspecified documented in this encounter Care Teams Rampman Relationship Specialty Start Date End Date Venus Belcher MD [address] [place] [address] PCP - General Family Medicine 04/06/24 documented as of this encounter
--- OUTSIDE RECORDS SUMMARY | 2024-06-30 08:49 | XMS_ITS | Clinical Summary ---
Author Organization [address] Address [address] [place] [address] Phone Care Team Providers Care Manager Pet Name Role Phone Venus Belcher MD Primary Care Provider + Encounters Date Type Department Care Team Description 04/25/2024 Lab Requisition [facility] Lab [address] [place] [phone] Venus Belcher MD Cellulitis, unspecified 04/18/2024 Lab Requisition [facility] Lab [address] [place] [address] Vensu Belcher MD Cellulitis, unspecified 04/13/2024 Lab Requisition [facility] Lab [address] [place] [address] Venus Belcher MD Cellulitis, unspecified 04/06/2024 Lab Requisition [facility] Lab [address] [place] [address] Venus Belcher MD Cellulitis, unspecified 04/06/2024 Lab Requisition [facility] Lab [address] [place] [phone] Venus Belcher MD Cellulitis, unspecified from Last [...] PM EST) WBC 15.1(H) 4.8 - 10.8 K/[facility] LAB HEMETOLOGY METHOD 04/06/2024 3:[address] [facility] RBC 3.30(L) 4.50 - 5.50 M/mcL LAB HEMETOLOGY METHOD 04/06/2024 3:[address] [facility] Hemoglobin 10.9(L) 13.5 - 17.5 g/dL LAB HEMETOLOGY METHOD 04/06/2024 3:[address] [facility] Hematocrit 32.9(L) 42.0 - 54.0 % LAB HEMETOLOGY METHOD 04/06/2024 3:[address] [facility] MCV 98.5(H) 79.0 - 98.0 FL LAB HEMETOLOGY METHOD 04/06/2024 3:[address] [facility] MCH 32.6(H) 27.0 - 32.0 pcg LAB HEMETOLOGY METHOD 04/06/2024 3:[address] [facility] MCHC 33.1 32.0 - 37.0 g/dL LAB HEMETOLOGY METHOD 04/06/2024 3:[address] [facility] RDW 13.9 11.0 - 15.0 % LAB HEMETOLOGY METHOD 04/06/2024 3:[address] [facility] Platelets 476(H) 130 - 400 K/mcL LAB HEMETOLOGY METHOD 04/06/2024 3:[address] [facility] MPV 9.8 7.0 - 11.0 FL LAB HEMETOLOGY METHOD 04/06/2024 3:[address] [facility] NRBC 0.0 <1.0 % LAB HEMETOLOGY METHOD 04/06/2024 3:[address] [facility] NRBC Absolute 0.00 <0.10 K/mcL LAB HEMETOLOGY METHOD 04/06/2024 3:[address] [facility] Blood Venous blood specimen / Unknown Venipuncture / Unknown 04/06/2024 1:21 PM EST 04/06/2024 2:57 PM EST us Venus Belcher MD LAB BLOOD ORDERABLES Fin al Result [facility] [address] [place] [address], [place] [phone] * (ABNORMAL) Comprehensive metabolic panel (04/06/2024 9:00 AM EST) Sodium 129(L) 133 - 145 mmol/L LAB CHEMISTRY METHOD 04/06/2024 11:[address] [facility] Potassium 4.5 3.5 - 5.5 mmol/L LAB CHEMISTRY METHOD 04/06/2024 11:[address] [facility] Comment:Hemolysis present Chloride 94(L) 96 - 110 mmol/L LAB CHEMISTRY METHOD 04/06/2024 11:[address] [facility] CO2 23 21 - 32 mmol/L LAB CHEMISTRY METHOD 04/06/2024 11:[address] [facility] Anion Gap 12(H) 3 - 11 LAB CHEMISTRY METHOD 04/06/2024 11:[address] [facility] Glucose 112(H) 70 - 100 mg/dL LAB CHEMISTRY METHOD 04/06/2024 11:[address] [facility] BUN 12 5 - 25 mg/dL LAB CHEMISTRY METHOD 04/06/2024 11:[address] [facility] Creatinine 1.03 0.70 - 1.30 mg/dL LAB CHEMISTRY METHOD 04/06/2024 11:[address] [facility] eGFR 80 >=60 mL/min/1. 73m2 LAB CHEMISTRY METHOD 04/06/2024 11:[address] [facility] Comment:Calculation based on the??Chronic Kidney Disease Epidemiology Collaboration (CKD-EPI) equation refit??without adjustment for race. BUN/Creatinine Ratio 11.7 LAB CHEMISTRY METHOD 04/06/2024 11:[address] [facility] Calcium 8.9 8.5 - 10.5 mg/dL LAB CHEMISTRY METHOD 04/06/2024 11:[address] [facility] AST (SGOT) 42 10 - 42 unit/L LAB CHEMISTRY METHOD 04/06/2024 11:[address] [facility] Comment:Hemolysis present ALT (SGPT) 30 10 - 60 unit/L LAB CHEMISTRY METHOD 04/06/2024 11:[address] [facility] Alkaline Phosphatase 75 42 - 121 unit/L LAB CHEMISTRY METHOD 04/06/2024 11:[address] [facility] Total Protein 6.8 6.0 - 8.0 g/dL LAB CHEMISTRY METHOD 04/06/2024 11:[address] [facility] Albumin 2.1(L) 3.2 - 5.0 g/dL LAB CHEMISTRY METHOD 04/06/2024 11:[address] [facility] Total Bilirubin 1.3 0.0 - 1.4 mg/dL LAB CHEMISTRY METHOD 04/06/2024 11:[address] [facility] Blood Venous blood specimen / Unknown Venipuncture / Unknown 04/06/2024 9:00 AM EST 04/06/2024 9:48 AM EST us Venus Belcher MD LAB BLOOD ORDERABLES Fin al Result [facility] [address] [place] [address], from Last 3 Months Insurance MEDICARE 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
--- OUTSIDE RECORDS SUMMARY | 2024-06-30 08:49 | XMS_ITS | Encounter Summary ---
Author Organization [facility] Address [address] [place] [address] Care Team Providers Care Director Software Development Name Role Phone Venus Belcher MD Primary Care Provider + Encounter Details Date Type Department Care Team (Late st Contact Info) Description 04/25/2024 Lab Requisition [facility] - Main Lab [address] [facility] [place] [address] Venus Belcher MD [address] [address] Cellulitis, unspecified Social History Tobacco Use Types [...] documented in this encounter Care Teams Director Software Development Relationship Specialty Start Date End Date Venus Belcher MD [address] [place] [phone] PCP - General Family Medicine 04/06/24 documented as of this encounter
--- OUTSIDE RECORDS SUMMARY | 2024-06-30 08:50 | XMS_ITS | Encounter Summary ---
Author Organization [facility] Address [address] [place] [address] Care Team Providers Care Cashier And Waiter/Waitress Name Role Phone Venus Belcher MD Primary Care Provider + Encounter Details Date Type Department Care Team (Late st Contact Info) Description 04/18/2024 Lab Requisition [facility] - Main Lab [address] [facility] [place] [address] Venus Belcher MD [address] [address] Cellulitis, unspecified Social History Tobacco Use Types [...] unspecified documented in this encounter Care Teams Cashier And Waiter/Waitress Relationship Specialty Start Date End Date Venus Belcher MD [address] [place] [phone] PCP - General Family Medicine 04/06/24 documented as of this encounter
--- OUTSIDE RECORDS SUMMARY | 2024-06-30 08:50 | XMS_ITS | Encounter Summary ---
Author Organization [facility] Address [address] [place] [address] Care Team Providers Care Supervisor Tower Name Role Phone Venus Belcher MD Primary Care Provider + Encounter Details Date Type Department Care Team (Late st Contact Info) Description 04/13/2024 Lab Requisition [facility] - Main Lab [address] [facility] [place] [address] Venus Belcher MD [address] [address] Cellulitis, unspecified Social History Tobacco Use Types [...] documented in this encounter Care Teams Supervisor Tower Relationship Specialty Start Date End Date Venus Belcher MD [address] [place] [phone] PCP - General Family Medicine 04/06/24 documented as of this encounter
--- OUTSIDE RECORDS SUMMARY | 2024-06-30 08:50 | XMS_ITS | Continuity of Care Document ---
Author Organization [facility] Address [address] [place] [address] Phone Care Team Providers Care Medical Staff Coordinator Name Role Phone Maximiliano STAPLES, YG, Marc [...] Providers Copied on Encounter [facility], [address] [place] [address] [address], [place], [id number], tel:[phone] [facility] [place] [facility] [place] Varicose veins of left lower extremity with other complications 5 Maximiliano STAPLES, YG, RIRI Tran. [address] [facility] [address], [place], [id number], [place]. tel:[phone] Referring Provider: Diego Jarrett, [address] [facility], [place], [address]. tel:[phone] Offic/outpt E&m Estab 5 Min Trial- Telemedicine [place] & [place] [facility], [address] [place] [address] Dr Winters [address] [address], [id number], [place] tel:[phone] [facility] [place] Localized edemaCramp and spasmRestless legs syndromeVenou s insufficiency (chronic) (peripheral)L ymphedema, not elsewhere classifiedDis order of pigmentation, unspecifiedHe reditary lymphedema 5 Nakia Schneider. [address] [place] [address], [place], [place], [id number], [place]. tel:[phone] Referring Provider: Diego Jarrett, [address] [place] [address], [place], [address]. tel:[phone] Office/Oupt E&M New Pt 30 Mins- [place] & [place] [facility], [address] [place] [address] Dr [address] [place], [id number], [place] tel:[phone] [facility] Varicose veins of bilateral lower extremities with other complications Cramp and spasmRestless legs syndromeVenou s insufficiency (chronic) (peripheral)L ymphedema, not elsewhere classifiedDis order of pigmentation, unspecifiedHe reditary lymphedema 5 Maximiliano STAPLES RVT, RIRI Tran. [address] [place] [address], [place], [place], [id number], [place]. tel:[phone] Referring Provider: Diego Jarrett, [address] [place] [address], [place], [address]. tel:[phone] [place] [facility], [address] [place] [address] Dr Winters [address]Suite [place], [id number], [place] tel:[phone] [facility] Chronic venous hypertension (idiopathic) with other complications of bilateral lower extremity 5 Maximiliano STAPLES RVT, RIRI Tran. [address] [place] [address], [place], [place], [id number], [place]. tel:[phone] Referring Provider: Diego Augustine NP-JULIO Jarrtet, [address] [facility], [place], [address]. tel:[phone] Family History Family Member Type Diagnosis Age At Onset No Information Payers Payer name Insurance type Covered green party ID Authoriza tion(s) Medicare AVIVA PENA [id number] [place] AVIVA [id number] Social History Type Description Quantity Date Captured [...]
== END 2024-06-30 09:01 | disposition home or self-care (01) ==
LOC: HO.PMC 08:33
PROVIDERS: PCP Nurse Practitioner Family; Visit Provider Anesthesiology
DX: M25.561 Pain in right knee (principal); G89.4 Chronic pain syndrome; M17.11 Unilateral primary osteoarthritis, right knee
CPT/HCPCS: 99213

== ENCOUNTER → 2024-06-30 08:32 | Outpatient (BNVA) | payer MEDICARE, SELFPAY | PROVIDERS: PCP Nurse Practitioner Family; Visit Provider Anesthesiology | DX: G89.4 Chronic pain syndrome (principal); M17.11 Unilateral primary osteoarthritis, right knee | CPT/HCPCS: 99212 ==

== ENCOUNTER 2024-07-29 10:39 | Outpatient (AMB) | payer MEDICARE, SELFPAY ==
[2024-07-29 10:59] VITALS: BP 132/70; PULSE 72; O2SAT 96; BMI 48.7
--- NOTE | 2024-07-29 10:59 | A.OFFVIS_ITS ---
Vital Signs 07/29/24 10:59 Height 6 ft 4 in Weight 400 lb BMI 48.7 BP 132/70 Blood Pressure Location Lt brachial Position Sitting Pulse 72 Pulse Source Pulse Oximeter Pulse Oximetry (%) 96 Oxygen Delivery Method Room Air Intake Visit Reasons: copd/upper resp failure Intake Note: pt is here for follow up and he is able to be off oxygen when walking and when walking into the room he was at 93 room air, but does bring his oxygen with him when out and doing things. 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 Allergies No Known Allergies [No Known Allergies*] Allergy (Verified 07/29/24 11:09) Medication List - Last Reconciled 07/29/24 by Savanna Andujar MD albuterol sulfate 90 mcg/actuation 2 puffs PO Q6H PRN amiodarone 200 mg PO DAILY 90 days ammonium lactate 12% 1 appl topical BEDTIME Anoro Ellipta 62.5-25 mcg/actuation (umeclidinium-vilanterol) 1 inh PO DAILY 90 days NS ascorbic acid (vitamin C) 1 g PO DAILY 90 days atorvastatin 80 mg PO BEDTIME 90 days bumetanide 2 mg PO DAILY diclofenac sodium 1% (Arthritis Pain (diclofenac)) 4 grams topical QID docusate sodium (Colace) 100 mg PO BID doxazosin 8 mg PO BEDTIME 90 days duloxetine 60 mg PO DAILY ferrous sulfate 324 mg PO DAILY finasteride 5 mg PO DAILY 90 days hospital bed Bariatric hospital bed methenamine hippurate 1 g PO DAILY 90 days methocarbamol 500 mg PO BEDTIME PRN omeprazole 20 mg PO DAILY oxybutynin chloride ER 10 mg PO ONCE 90 days oxycodone 10 mg (2 x 5 mg) PO Q12H PRN 5 days [Powered bariatric recliner As directed] pregabalin 150 mg PO TID 90 days ropinirole 2 mg PO TID spironolactone 25 mg PO DAILY walker daily use (rolling sitting walker-bariatric size needed) zolpidem 10 mg PO BEDTIME PRN Do you need a note to return to daycare/school/sports/work: No HPI HPI copd/upper resp failure: Details: This 69 years old gentleman with morbid obesity and obstructive sleep apnea, restrictive lung disorder/ chronic obstructive pulmonary disease and chronic respiratory failure, Is being seen for his routine follow-up visit after 4 months He is very happy due to the fact that he has lost some weight, his oxygenation has improved to the point that sometime he can walk short distances without needing to use the oxygen. He uses CPAP religiously every night along with oxygen supplementation 2 L/minute. He is more energetic, and walks around with wheeled walker. Cardiac hahn has remained stable., he is awaiting to undergo Watchman procedure. Main problem is back pain and knees pain, for which he has had injection for nerve block in the right knee, by Dr. Rod of pain service. [facility] Medical History Rib pain on left side Post-COVID syndrome Traumatic perinephric hematoma of left kidney Chronic diastolic heart failure JEFFRY on CPAP Anemia Sepsis COPD (chronic obstructive pulmonary disease) Acute respiratory failure due to COVID-19 Community acquired pneumonia Viral sepsis Fatigue Acute on chronic diastolic CHF (congestive heart failure) COVID Morbid obesity Paroxysmal atrial fibrillation Testicular swelling Osteoarthritis of right knee Melanoma History of cardioversion Hereditary lymphedema Venous insufficiency Lymphedema COPD (chronic obstructive pulmonary disease) Sensory neuropathy COVID-19 Respiratory failure with hypoxia Restrictive lung disease MATUTE (dyspnea on exertion) Chronic cystitis Bladder outlet obstruction Restless leg syndrome Traumatic complete tear of right rotator cuff Injury of right rotator cuff History of diverticulitis History of umbilical hernia Surgical History S/P shoulder surgery Status post total left knee replacement Hx of colonoscopy History of appendectomy History of arthroscopy of left knee Family History Father Arthritis Diabetes Mother Arthritis Kidney stones Family/Other Arthritis Sister No problems noted. Sister No problems noted. Son No problems noted. Social History Household Members: Spouse Household Members Other:: Housing: Condominium Do you presently have visiting nurse or other home services: Yes Unable to assess alcohol history related to: Unknown Alcohol intake: current Alcohol intake frequency: holidays/special occasions only Alcohol type: beer Comment: Refused bed alarm due to alarm sensitivity when changing positions. 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 Cognitive needs: No Hearing needs: No Vision needs: No Review of Systems Const All systems reviewed & are unremarkable except as noted in HPI and below Eyes Reports no additional complaints ENT Reports no additional complaints Card Denies chest pain, Denies irregular heart rhythm and Denies leg edema Resp Reports as per HPI GI Reports no additional complaints Reports no additional complaints Musc Reports back pain Skin/Breast Reports system reviewed and no additional complaints, except as documented Neuro Reports no additional complaints Psych Reports no additional complaints Physical Exam Vital Signs: Last Vital Signs Pulse 72 07/29/24 10:59 BP 132/70 07/29/24 10:59 Pulse Ox 96 07/29/24 10:59 Oxygen Delivery Method Room Air 07/29/24 10:59 BMI result Body Mass Index 48.7 Looks healthier as he has lost 34 lb of weight Const Other: wearing oxygen General: cooperative, comfortable (but SOB ) and no acute distress Orientation/consciousness: patient oriented x3 HEENT Head: Yes normal to inspection General nose exam: No nasal polyps present and No nasal discharge present Face and sinus: Yes sinuses nontender Mouth: oropharynx normal Throat: Yes posterior oropharynx normal Eyes General: appearance normal, both eyes and all related structures Neck Neck: Yes normal visual inspection, Yes no lymphadenopathy, Yes trachea midline and Yes no JVD Thyroid: Thyroid normal Chest Chest palpation & inspection: normal inspection of the chest, normal palpation of entire chest wall and no tenderness Resp Other: Percussion note not perceptible because of thick chest wall. Breath sounds are distant and especially decreased over the basilar areas. No wheezes or crepitations are heard. Effort & Inspection: normal respiratory effort and able to speak in complete sentences Auscultation: clear to auscultation bilaterally Cardio Palpation: PMI not normal (Not palpable) Rate: regular rate Rhythm: abnormal rhythm and other (Atrial fib) Heart sounds: no gallops and no murmurs GI Palpation (GI): Soft to palpation, nontender, No hepatosplenomegaly present, no masses and Other GI palpation findings present (Grossly obese and protuberant) Auscultation: normal bowel sounds Back/Spine/Pelvis Cervical Spine: normal cervical lordosis and cervical ROM normal Thoracic/Lumbar Spine: thoracic and lumbar spine normal to inspection, thoraco- lumbar ROM normal and paraspinal muscle tenderness (left trapezius/rhomboid tenderness and tautness of musculature to palpation) Skin General skin exam: no rashes or lesions noted Neuro General: patient oriented x3 and Normal light touch and pain sensation Cranial nerves: Yes CN's II-XII intact bilaterally Extrem General: Yes edema (Has chronic stasis edema /lymphedema both legs which is currently increased) and Yes venous stasis dermatitis Psych Appearance: grossly normal Mental Status: mental status grossly normal Speech and movement: Normal speech and movement present Results Reviewed Results Reviewed: Compliance report for the last 30 nights is reviewed He used 30/30 nights with an average usage of 6 hours per night. Pressure 12 cm, there is no residual sleep apnea, Assessment & Plan Assessment & Plan (1) Morbid obesity with BMI of 50.0-59.9, adult: Comment: Case of morbid obesity who is successfully losing some weight. This is mainly with his dietary control, and diuretic therapy. Code(s): E66.01 - Morbid (severe) obesity due to excess calories; Z68.43 - Body mass index [BMI] 50.0-59.9, adult Category: Medical Plan: Commended for losing weight and advised to continue the same program (2) JEFFRY on CPAP: Comment: KNOWN TO HAVE OBSTRUCTIVE SLEEP APNEA. USES CPAP REGULARLY AND HAS BEEN VERY COMPLIANT AND BENEFITTING. ALSO USES OXYGEN 2 L/MINUTE ALONG WITH THE CPAP. Code(s): G47.33 - Obstructive sleep apnea (adult) (pediatric); Z99.89 - Dependence on other enabling machines and devices Category: Medical Plan: COMMENDED FOR EXCELLENT COMPLIANCE AND ADVISED TO CONTINUE USING THE CPAP EVERY NIGHT ALONG WITH O2 2 L/MINUTE (3) Restrictive lung disease: Comment: RESTRICTION IS MAINLY BECAUSE OF HIS MORBID OBESITY. Code(s): J98.4 - Other disorders of lung Category: Medical Plan: CONTINUE TO LOSE WEIGHT. DEEP BREATHING EXERCISES WITH THE INCENTIVE SPIROMETER 3 TIMES A DAY. (4) COPD (chronic obstructive pulmonary disease): Comment: HE DOES HAVE FEATURES OF OBSTRUCTIVE AIRWAY DISORDER. AT PRESENT WELL CONTROLLED WITH USE OF ANORO ELLIPTA ONCE A DAY Code(s): J44.9 - Chronic obstructive pulmonary disease, unspecified Category: Medical Plan: CONTINUE TO USE ANORO ELLIPTA ONCE A DAY AND ALBUTEROL HFA ONLY P.R.N. IF THERE IS ANY WHEEZING Medications: Changed From methocarbamol 500 mg PO BEDTIME 30 tabs 2RF To methocarbamol 500 mg PO BEDTIME PRN Coding Level of Care Code Est Pt Level 4 (29347) Diagnoses Morbid obesity with BMI of 50.0-59.9, adult E66.01; Z68.43 JEFFRY on CPAP G47.33; Z99.89 Restrictive lung disease J98.4 COPD (chronic obstructive pulmonary disease) J44.9
--- OUTSIDE RECORDS SUMMARY | 2024-07-29 12:28 | XMS_ITS | Clinical Summary ---
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
== END 2024-07-29 11:21 | disposition home or self-care (01) ==
LOC: HO.HPS 10:39
PROVIDERS: PCP Nurse Practitioner Family; Visit Provider Internal Medicine
DX: E66.01 Morbid (severe) obesity due to excess calories (principal); Z68.43 Body mass index [BMI] 50.0-59.9, adult; G47.33 Obstructive sleep apnea (adult) (pediatric); Z99.89 Dependence on other enabling machines and devices; J98.4 Other disorders of lung; J44.9 Chronic obstructive pulmonary disease, unspecified
CPT/HCPCS: 99214

== ENCOUNTER → 2024-07-29 10:39 | Outpatient (BNVA) | payer MEDICARE, SELFPAY | PROVIDERS: PCP Nurse Practitioner Family; Visit Provider Internal Medicine | DX: L91.8 Other hypertrophic disorders of the skin (principal); J44.9 Chronic obstructive pulmonary disease, unspecified; J98.4 Other disorders of lung; G47.33 Obstructive sleep apnea (adult) (pediatric); E66.01 Morbid (severe) obesity due to excess calories; Z68.42 Body mass index [BMI] 45.0-49.9, adult; Z99.89 Dependence on other enabling machines and devices | CPT/HCPCS: 11200; 99212 ==

== ENCOUNTER 2024-07-29 11:49 | Outpatient (AMB) | payer MEDICARE, SELFPAY ==
--- NOTE | 2024-07-29 12:10 | AM.OFFWIN_ITS ---
Intake Vital Signs 07/29/24 12:12 Weight 400 lb BP 126/78 Blood Pressure Location Lt brachial Position Sitting Pulse 87 Pulse Source Pulse Oximeter Pulse Oximetry (%) 98 Oxygen Delivery Method Room Air Intake Visit Reasons: EP skin tag removal Intake Note: Patient here for skin tag' back of left thigh, he states it opened last night and was bleeding. Patient Tobacco Use Status: Former Tobacco user Allergies No Known Allergies [No Known Allergies*] Allergy (Verified 07/29/24 12:11) Do you need a note to return to daycare/school/sports/work: No HPI HPI Comments History of Present Illness Details History of Present Illness - The patient is a 69-year-old male pres enting with a skin tag on the posterior aspect of his lower extremity on the buttock. - The lesion opened and started bleeding a few days ago, prompting concern due to an upcoming Watchman procedure. - The lesion was advised to be removed b efore the patient begins anticoagulation therapy, to prevent complications related to bleeding. - The patient has been in contact with o ther healthcare providers for advice and potential intervention. - Denies fever, chills, redness, bleedin g, or pain. - He wants the skin tag off before his s urgery. He has an appt with a surgeon but not until August for the removal. Physical Exam General: Cooperative, healthy appearing, comfortable, no acute distress and well developed Respiratory: Normal respiratory effort and able to speak in complete sentences. Clear to auscultation bilaterally Cardiovascular: Regular rate and rhythm. Normal S1 and S2 Skin: Skin tag noted on the left buttock, raised dark black and rough. No bleeding noted. Neuro: Sensation intact. Patient was informed and verbally consented to the use of an ambient scribe for clinic note documentation during this visit. [facility] Medical History Rib pain on left side Post-COVID syndrome Traumatic perinephric hematoma of left kidney Chronic diastolic heart failure JEFFRY on CPAP Anemia Sepsis COPD (chronic obstructive pulmonary disease) Acute respiratory failure due to COVID-19 Community acquired pneumonia Viral sepsis Fatigue Acute on chronic diastolic CHF (congestive heart failure) COVID Morbid obesity Paroxysmal atrial fibrillation Testicular swelling Osteoarthritis of right knee Melanoma History of cardioversion Hereditary lymphedema Venous insufficiency Lymphedema COPD (chronic obstructive pulmonary disease) Sensory neuropathy COVID-19 Respiratory failure with hypoxia Restrictive lung disease MATUTE (dyspnea on exertion) Chronic cystitis Bladder outlet obstruction Restless leg syndrome Traumatic complete tear of right rotator cuff Injury of right rotator cuff History of diverticulitis History of umbilical hernia Surgical History S/P shoulder surgery Status post total left knee replacement Hx of colonoscopy History of appendectomy History of arthroscopy of left knee Family History Father Arthritis Diabetes Mother Arthritis Kidney stones Family/Other Arthritis Sister No problems noted. Sister No problems noted. Son No problems noted. Social History Household Members: Spouse Household Members Other:: Housing: Condominium Do you presently have visiting nurse or other home services: Yes Unable to assess alcohol history related to: Unknown Alcohol intake: current Alcohol intake frequency: holidays/special occasions only Alcohol type: beer Comment: Refused bed alarm due to alarm sensitivity when changing positions. 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 Cognitive needs: No Hearing needs: No Vision needs: No Review of Systems Const All systems reviewed & are unremarkable except as noted in HPI and below Physical Exam Vital Signs: Last Vital Signs Pulse 87 07/29/24 12:12 BP 126/78 07/29/24 12:12 Pulse Ox 98 07/29/24 12:12 Oxygen Delivery Method Room Air 07/29/24 12:12 Office Procedures Skin Tag Removal Details: skin tag noted on the left buttock Skin tag removal performed by: rogers oconnor Informed consent given: Yes Consent signed: No Time out checklist: patient, procedure, positioning of patient, supplies available and allergies confirmed Location: other (left buttock) Preparation: betadine Hemostasis: pressure and suture ligature Patient tolerated procedure: well Complications: Yes Additional details: Active bleeding noted after incision was made to remove the skin tag. Pieces removed but then bleeding occurred and was hard to stop. Assessment & Plan Assessment & Plan (1) Skin tag: Comment: bleeding Code(s): L91.8 - Other hypertrophic disorders of the skin Plan Most likely skin tag vs thrombosed skin tag Plan - Attempted to remove the skin tag in the office - Active bleeding was noted at the site - One single figure 8 stitch was placed to aid in stopping the bleeding - compression bandage was applied - called surgeons office to help assist with getting him a sooner appointment - pt has an appt for August- will need to have the skin tag removed in the OR to prevent with bleeding. - Benefits of removing the lesion include reduced risk of bleeding complications post-procedure. - Advised to return if bleeding does not stop - Supplies given to the patient for compression bandages at home Coding Level of Care Code Est Pt Level 4 (26875) Diagnoses Skin tag L91.8
[2024-07-29 12:12] VITALS: BP 126/78; PULSE 87; O2SAT 98
== END 2024-07-29 14:22 | disposition home or self-care (01) ==
PROVIDERS: PCP Nurse Practitioner Family; Visit Provider Physician Assistant Medical
DX: L91.8 Other hypertrophic disorders of the skin (principal)

== ENCOUNTER 2024-08-09 12:31 | Outpatient (AMB) | payer MEDICARE, SELFPAY ==
[2024-08-09 12:48] VITALS: BMI 48.7
--- NOTE | 2024-08-09 12:48 | MHC.OFFVIS ---
Vital Signs 08/09/24 12:48 Height 6 ft 4 in Weight 400 lb BMI 48.7 Intake Visit Reasons: OV - Discuss TKA - High Risk Intake Note: Dinh is a 69 year old male who presents today for a follow up of his Right Knee. He has previously been treated with Ta-Maria R [facility]. Hx of Right Durolane injection 01/30/2024, multiple cortisone injections with mild relief. He is determined to be a high risk surgical patient due to JEFFRY, COPD & BMI of 48.7. Allergies No Known Allergies (No Known Allergies*) Allergy (Verified 08/09/24 12:53) HPI HPI OV - Discuss TKA - High Risk: Details: Dinh is a 69 year old male who presents today for a follow up of his Right Knee. He has previously been treated with Ta-Maria R [facility]. Hx of Right Durolane injection 01/30/2024, multiple cortisone injections with mild relief. He is determined to be a high risk surgical patient due to JEFFRY, COPD & BMI of 48.7. 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 He is 6 4 and 400 lb at this point but he has lost 50 lb in the last several weeks through diet and exercise. He describes difficulty with motion and activity and difficulty with portion control. He states his right knee is very painful and limits his activity. He states injections have not been particularly helpful. [facility] Medical History Rib pain on left side Post-COVID syndrome Traumatic perinephric hematoma of left kidney Chronic diastolic heart failure JEFFRY on CPAP Anemia Sepsis COPD (chronic obstructive pulmonary disease) Acute respiratory failure due to COVID-19 Community acquired pneumonia Viral sepsis Fatigue Acute on chronic diastolic CHF (congestive heart failure) COVID Morbid obesity Paroxysmal atrial fibrillation Testicular swelling Osteoarthritis of right knee Melanoma History of cardioversion Hereditary lymphedema Venous insufficiency Lymphedema COPD (chronic obstructive pulmonary disease) Sensory neuropathy COVID-19 Respiratory failure with hypoxia Restrictive lung disease MATUTE (dyspnea on exertion) Chronic cystitis Bladder outlet obstruction Restless leg syndrome Traumatic complete tear of right rotator cuff Injury of right rotator cuff History of diverticulitis History of umbilical hernia Surgical History S/P shoulder surgery Status post total left knee replacement Hx of colonoscopy History of appendectomy History of arthroscopy of left knee Family History Father Arthritis Diabetes Mother Arthritis Kidney stones Family/Other Arthritis Sister No problems noted. Sister No problems noted. Son No problems noted. Social History Household Members: Spouse Household Members Other:: Housing: Condominium Do you presently have visiting nurse or other home services: Yes Unable to assess alcohol history related to: Unknown Alcohol intake: current Alcohol intake frequency: holidays/special occasions only Alcohol type: beer Comment: Refused bed alarm due to alarm sensitivity when changing positions. 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 He has an oxygen tank on his scooter but not in using it as we speak. He states he does have to use it with extended ambulation. He has a antalgic gait and pain over the medial compartment of his right knee. His left knee has a well-healed total knee incision. He has bilateral venous static changes but his feet are warm and well perfused. His right knee has 5-100 10 degrees of motion. Results Reviewed Results Reviewed: I personally reviewed relevant radiographs. Severe varus pattern right knee osteoarthritis Left TKA in expected post operative position with no hardware complications or evidence of loosening Assessment & Plan Assessment & Plan (1) Osteoarthritis of right knee: Code(s): M17.11 - Unilateral primary osteoarthritis, right knee Category: Medical Qualifiers: Osteoarthritis type: primary Qualified Code(s): M17.11 - Unilateral primary osteoarthritis, right knee Plan: This is a 69-year-old gentleman with severe osteoarthritis of the right knee. 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 Much of his current state has to do with his weight he understands this and is trying are 2 lose weight. He is not diabetic and so apparently he is not a candidate for a GLP 1 medications. Even in this setting they typically can result in a loss of 5 to 7 BMI which is still insufficient. I do think he needs calorie restriction but I recommend that he see our bariatric surgeon. He is working with them and understands that massive weight loss would be necessary in order to proceed forward with knee replacement. From an orthopedic perspective I do think he has severe arthritis and would benefit from arthroplasty if he were able to lose 100 lb and his heart and lungs responded accordingly. He will pursue these things and I will see him back in 6 months. (2) Morbid obesity with BMI of 50.0-59.9, adult: Comment: Case of morbid obesity who is successfully losing some weight. This is mainly with his dietary control, and diuretic therapy. Code(s): E66.01 - Morbid (severe) obesity due to excess calories; Z68.43 - Body mass index [BMI] 50.0-59.9, adult Category: Medical Plan: (3) Vascular insufficiency: Code(s): I99.8 - Other disorder of circulatory system Category: Medical Plan: (4) Chronic diastolic heart failure: Comment: Code(s): I50.32 - Chronic diastolic (congestive) heart failure Category: Medical Plan: (5) Restrictive lung disease: Comment: RESTRICTION IS MAINLY BECAUSE OF HIS MORBID OBESITY. Code(s): J98.4 - Other disorders of lung Category: Medical Plan: (6) JEFFRY on CPAP: Comment: KNOWN TO HAVE OBSTRUCTIVE SLEEP APNEA. USES CPAP REGULARLY AND HAS BEEN VERY COMPLIANT AND BENEFITTING. ALSO USES OXYGEN 2 L/MINUTE ALONG WITH THE CPAP. Code(s): G47.33 - Obstructive sleep apnea (adult) (pediatric); Z99.89 - Dependence on other enabling machines and devices Category: Medical Plan: Orders: Orders XR knee RT 3V 08/09/24 M25.561 - Pain in right knee Coding Level of Care Code Est Pt Level 4 (23980) Diagnoses Primary osteoarthritis of right knee M17.11 Osteoarthritis type: primary Morbid obesity with BMI of 50.0-59.9, adult E66.01; Z68.43 Vascular insufficiency I99.8 Chronic diastolic heart failure I50.32 Restrictive lung disease J98.4 JEFFRY on CPAP G47.33; Z99.89
== END 2024-08-09 15:20 | disposition home or self-care (01) ==
LOC: HO.HOS 12:32
PROVIDERS: PCP Nurse Practitioner Family; Visit Provider Orthopaedic Surgery
DX: M17.11 Unilateral primary osteoarthritis, right knee (principal); E66.01 Morbid (severe) obesity due to excess calories; Z68.43 Body mass index [BMI] 50.0-59.9, adult; I99.8 Other disorder of circulatory system; I50.32 Chronic diastolic (congestive) heart failure; J98.4 Other disorders of lung; G47.33 Obstructive sleep apnea (adult) (pediatric); Z99.89 Dependence on other enabling machines and devices
CPT/HCPCS: 99214

== ENCOUNTER 2024-08-09 12:32 | Outpatient (REF) | payer MEDICARE, SELFPAY ==
--- NOTE | ~2024-08-09 | XR_ITS ---
EXAMINATION: XR KNEE, RIGHT CLINICAL INFORMATION: M25.561 - Pain in right knee COMPARISON: None available. TECHNIQUE: AP bilateral, lateral, and sunrise views of the right knee. FINDINGS: Total knee arthroplasty has been performed on the left. The right knee demonstrates severe medial compartment and moderate lateral compartment joint space narrowing. There are tricompartmental marginal osteophytes. There is mild subluxation of the distal femur medially. No joint effusion is evident but there is a small amount of joint fluid. Mild vascular calcification is present in the distal femoral artery. XR/XR knee RT 3V IMPRESSION: Severe right knee osteoarthritis Electronically signed by: Jose Rafael Norton MD 08/09/2024 12:59 PM EDT
--- OUTSIDE RECORDS SUMMARY | 2024-08-09 13:52 | XMS_ITS | Clinical Summary ---
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
== END 2024-08-09 12:33 | disposition home or self-care (01) ==
LOC: HO.HOSX 12:32
PROVIDERS: Visit Provider Orthopaedic Surgery
DX: M17.11 Unilateral primary osteoarthritis, right knee (principal); E66.01 Morbid (severe) obesity due to excess calories; Z68.43 Body mass index [BMI] 50.0-59.9, adult; I99.8 Other disorder of circulatory system; I50.32 Chronic diastolic (congestive) heart failure; J98.4 Other disorders of lung; G47.33 Obstructive sleep apnea (adult) (pediatric); Z99.89 Dependence on other enabling machines and devices
CPT/HCPCS: 73562; 99212

== ENCOUNTER → 2024-08-09 12:38 | Outpatient (BNV) | payer MEDICARE, SELFPAY | PROVIDERS: Visit Provider Radiology Diagnostic Radiology | DX: M17.11 Unilateral primary osteoarthritis, right knee (principal) | CPT/HCPCS: 73562 ==

== ENCOUNTER 2024-08-16 08:51 | Outpatient (AMB) | payer MEDICARE, SELFPAY ==
--- OUTSIDE RECORDS SUMMARY | 2024-08-16 09:04 | XMS_ITS | Clinical Summary ---
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
[2024-08-16 09:28] VITALS: BP 130/70; PULSE 100; TEMP 36.6; O2SAT 94; BMI 50.2
--- NOTE | 2024-08-16 09:28 | AM.OFFWIN_ITS ---
Intake Vital Signs 3 08/16/24 09:28 Height 6 ft 4 in Weight 412 lb 2 oz BMI 50.2 BP 130/70 Blood Pressure Location Rt brachial Position Sitting Pulse 100 Pulse Source Pulse Oximeter Temp 97.8 F Temp Source Oral Pulse Oximetry (%) 94 Oxygen Delivery Method Room Air Intake Visit Reasons: EP-back lt thigh stiches removal Patient Tobacco Use Status: Former Tobacco user Dramatic Coach Required: No Allergies No Known Allergies (No Known Allergies*) Allergy (Verified 08/16/24 09:35) HPI HPI Comments 2 History of Present Illness0 Details 69 y/o Male patient who presents to the walk in clinic for a stitch removal left back thigh. Pt had a stitch placed 07/29 - after an attempt of skin tag removal complicated by Prolonged bleeding. Today patient reports that skin tag fell off with dressing change few day ago at home. [facility] Medical History (Updated 08/16/24 @ 10:13 by Sonia Contreras NP) Visit for suture removal Rib pain on left side Post-COVID syndrome Traumatic perinephric hematoma of left kidney Chronic diastolic heart failure JEFFRY on CPAP Anemia Sepsis COPD (chronic obstructive pulmonary disease) Acute respiratory failure due to COVID-19 Community acquired pneumonia Viral sepsis Fatigue Acute on chronic diastolic CHF (congestive heart failure) COVID Morbid obesity Paroxysmal atrial fibrillation Testicular swelling Osteoarthritis of right knee Melanoma History of cardioversion Hereditary lymphedema Venous insufficiency Lymphedema COPD (chronic obstructive pulmonary disease) Sensory neuropathy COVID-19 Respiratory failure with hypoxia Restrictive lung disease MATUTE (dyspnea on exertion) Chronic cystitis Bladder outlet obstruction Restless leg syndrome Traumatic complete tear of right rotator cuff Injury of right rotator cuff History of diverticulitis History of umbilical hernia Surgical History S/P shoulder surgery Status post total left knee replacement Hx of colonoscopy History of appendectomy History of arthroscopy of left knee Family History Father Arthritis Diabetes Mother Arthritis Kidney stones Family/Other Arthritis Sister No problems noted. Sister No problems noted. Son No problems noted. Social History Household Members: Spouse Household Members Other:: Housing: Condominium Do you presently have visiting nurse or other home services: Yes Unable to assess alcohol history related to: Unknown Alcohol intake: current Alcohol intake frequency: holidays/special occasions only Alcohol type: beer Comment: Refused bed alarm due to alarm sensitivity when changing positions. 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 Removed 1 stitch left back thigh - no bleeding, wound healed well. Assessment & Plan Assessment & Plan (1) Visit for suture removal: Code(s): Z48.02 - Encounter for removal of sutures Plan: One stitch removed with no complication, no bleeding. Coding Level of Care Code Est Pt Level 4 (11930) Diagnoses Visit for suture removal Z48.02 Time Spent (min) 20
== END 2024-08-16 10:35 | disposition home or self-care (01) ==
PROVIDERS: PCP Nurse Practitioner Family; Visit Provider Nurse Practitioner Family
DX: Z48.02 Encounter for removal of sutures (principal)

== ENCOUNTER → 2024-08-16 08:51 | Outpatient (BNVA) | payer MEDICARE, SELFPAY | PROVIDERS: PCP Nurse Practitioner Family; Visit Provider Nurse Practitioner Family | DX: Z48.02 Encounter for removal of sutures (principal) | CPT/HCPCS: 99212 ==

== ENCOUNTER 2024-08-30 13:45 | Outpatient (RCR) | payer MEDICARE, SELFPAY | END 2024-08-30 16:17 | disposition home or self-care (01) | LOC: HO.WCC 13:45 | PROVIDERS: PCP Nurse Practitioner Family; Visit Provider Colon & Rectal Surgery | DX: I87.331 Chronic venous hypertension (idiopathic) with ulcer and inflammation of right lower extremity (principal); L97.812 Non-pressure chronic ulcer of other part of right lower leg with fat layer exposed; I87.322 Chronic venous hypertension (idiopathic) with inflammation of left lower extremity; I89.0 Lymphedema, not elsewhere classified; I82.492 Acute embolism and thrombosis of other specified deep vein of left lower extremity; I73.9 Peripheral vascular disease, unspecified; F12.90 Cannabis use, unspecified, uncomplicated; F10.90 Alcohol use, unspecified, uncomplicated; Z79.891 Long term (current) use of opiate analgesic; Z79.899 Other long term (current) drug therapy; Z87.891 Personal history of nicotine dependence; G62.9 Polyneuropathy, unspecified | CPT/HCPCS: 11042; 97597; 99212 ==

== ENCOUNTER 2024-09-01 06:16 | Outpatient (REF) | payer MEDICARE, SELFPAY ==
--- OUTSIDE RECORDS SUMMARY | 2024-07-26 11:00 | XMS_ITS | Continuity of Care Document ---
Author Organization [facility] Address [address] [place] [address] Phone Care Team Providers Care Fabricator Foam Rubber Name Role Phone Maximiliano STAPLES, YG, RIRI, Marc Unavailable U navailable Allergies, Adverse Reactions, Alerts Substance Reaction Status Criticality No Known Allergies Active No Inform ation Procedures Procedure Date Office/Outpt E&M Established 15 Mins- CT & [place] Duplex Scan-extrem Veins; Comp- CT & [place] Duplex Scan-extrem Veins; Uni/ CT & [place] M Inj Scleros Solut; Mx Veins 1- CT & [place] M Ultrason Guidan Needle Bx-rad- CT & [place] Duplex Scan-extrem Veins; Uni/ CT & [place] M Inj Scleros Solut; Mx Veins 1- CT & [place] M Ultrason Guidan Needle Bx-rad- CT & [place] Offic/outpt E&m Estab 5 Min Trial- Telem edicine CT & [place] Office/Oupt E&M New Pt 30 Mins- CT & [place] Duplex Scan-extrem Veins; Comp- CT & [place] Advance Directives Directive Yes / No Effective Date File Name Other Directive No 07/26/2024 N/A WARNING:The information contained in this section is historical and is provided for information only and does not constitute a legal document or any assurance that the information is still accurate. Please verify the information with the johnson of the legal document before using it for clinical purposes. Encounters Encounter Description Practice Location Reason(s) For Visit Diagnoses Date Provider Providers Copied on Encounter Office/Outpt E&M Established 15 Mins- CT & [place] [facility], [address] [place] [address] Dr Winters [address] [address], [id number], [place] tel:[phone] [facility] Localized edemaCramp and spasmRestless legs syndromeVenou s insufficiency (chronic) (peripheral)L ymphedema, not elsewhere classifiedDis order of pigmentation, unspecifiedHe reditary lymphedema 5 Maximiliano STAPLES RVT, RIRI Tran. [address] [place] [address], [place], [id number], [place]. tel:[phone] Referring Provider: Diego Jarrett, [address] [place] [address], [place], [address]. tel:[phone] [facility], [address] [place] [address] Dr Winters [address]Suite [place], [id number], [place] tel:[phone] [facility] Chronic venous hypertension (idiopathic) with other complications of bilateral lower extremity 5 Maximiliano STAPLES RVT, RIRI Tran. [address] [place] [address], [place], [id number], [place]. tel:[phone] Referring Provider: Diego Jarrett, [address], [place], [address]. tel:[phone] [facility] [place] [facility], [address] [place] [address] Dr Winters [address] 1000[place], [id number], [place] tel:[phone] [facility] Encounter for follow-up examination after completed treatment for conditions other than malignant neoplasmVaric ose veins of right lower extremity with pain 5 Maximiliano STAPLES RVT, RPVI Robert. [address] [place] [address], [place] [address], [place], [id number], [place]. tel:[phone] Referring Provider: Diego Jarrett, [address], [place], [address]. tel:[phone] [facility], [address] [place] [address] [address], [id number], [place] tel:[phone] [facility] [place] Varicose veins of right lower extremity with other complications 5 Maximiliano STAPLES RVT, RIRI Tran. [address] [place] [address], [place], [place], [id number], [place]. tel:[phone] Referring Provider: Diego Jrarett, [address], [place], [address]. tel:[phone] [facility], [address] [place] [address] [address], [place], [id number], [place] tel:[phone] [facility] [place] Encounter for follow-up examination after completed treatment for conditions other than malignant neoplasmVaric ose veins of left lower extremity with pain 5 Maximiliano STAPLES RVT, RIRI Tran. [address] [place] [address], [place], [place], [id number], [place]. tel:[phone] Referring Provider: Diego Jarrett, [address], [place], [address]. tel:[phone] [facility] [place] [facility], [address] [place] [address] [facility] [address] [address], [place], [id number], [place] tel:[phone] [facility] [place] Varicose veins of left lower extremity with other complications 5 Maximiliano STAPLES RVT, RIRI Tran. [address] [place] [address], [facility] [place], [id number], [place]. tel:[phone] Referring Provider: Diego Jarrett, [address], [place], [address]. tel:[phone] Offic/outpt E&m Estab 5 Min Trial- Telemedicine [place] & [place] [facility] [place] [facility], [address] [place] [address] Dr Winters 1000[place], [id number], [place] tel:[phone] [facility] [place] Hereditary lymphedemaLoc alized edemaCramp and spasmRestless legs syndromeVenou s insufficiency (chronic) (peripheral)L ymphedema, not elsewhere classifiedDis order of pigmentation, unspecified 5 Nakia Schneider. [address] [place] [address], [place], [place], [id number], [place]. tel:[phone] Referring Provider: Diego Jarrett, [address], [place], [address]. tel:[phone] Office/Oupt E&M New Pt 30 Mins- [place] & [place] [facility] [place] [facility], [address] [place] [address] Dr [address] [place] [address] [place], [id number], [place] tel:[phone] [facility] [place] Varicose veins of bilateral lower extremities with other complications Cramp and spasmRestless legs syndromeVenou s insufficiency (chronic) (peripheral)L ymphedema, not elsewhere classifiedDis order of pigmentation, unspecifiedHe reditary lymphedema Apr-2 5 Maximiliano STAPLES RVT, RPVI Robert. [address] [place] [address], [facility] [place], [id number], [place]. tel:[phone] Referring Provider: Diego Jarrett, [address], [place], [address]. tel:[phone] [facility], [address] [place] [address] Dr Winters 1000[place], [id number], [place] tel:[phone] [facility] [place] Chronic venous hypertension (idiopathic) with other complications of bilateral lower extremity Apr-2 5 Maximiliano STAPLES RVT, RIRI Tran. [address] [place] [address], [facility] [place], [id number], [place]. tel:[phone] Referring Provider: Diego Augustine APPLICATION SUPPORT DEVELOPER-[facility], [address], [place], [address]. tel:[phone] Family History Family Member Type Diagnosis Age At Onset No Information Payers Payer name Insurance type Covered alliance party ID Authoriza tion(s) Medicare AVIVA PENA [id number] [facility] AVIVA [id number] Social History Type Description Quantity Date Captured [...] education completed Goal Tobacco cessation counseling completed Goal Tobacco cessation counseling completed Goal Diet education completed Referral Ordered: Weight management: Referral to physician timeframe: 3 Months (related to Body mass index (BMI) 45.0-49.9, adult) ordered Referral Ordered: Weight management: Referral to physician [...] reviewed and provided Related to Localized edema Lifestyle education Related to B rio mass index (BMI) 45.0-49.9, adult Giving Encouragement to exercise Related to Body mass index (BMI) 45.0-49.9, adult Diet education Related to Body mass index (BMI) 45.0-49.9, adult Pre and post instruc tions reviewed and [...]
[2024-09-01 10:27] LABS: MANUAL DIFF FLAG NO
[2024-09-01 10:32] LABS: White Blood Count 7.0 X10*3/uL (4.8-10.8)
[2024-09-01 10:33] LABS: Hematocrit 44.0 % (42.0-52.0); Hemoglobin 15.1 g/dl (14.0-18.0); Imm Gran Abs Auto 0.03 X10*3/uL (0.00-0.03); Imm Gran Pct Auto 0.4 % (0.0-0.4); Lymphocytes Absolute Auto 2.4 X10*3/uL (1.2-4.9); Mean Corpuscular HGB Conc 34.3 g/dl (31.0-36.0); Mean Corpuscular Hemoglobin 32.8 pg (27.0-33.0); Mean Corpuscular Volume 95.7 fL (80.0-98.0); NRBC Abs Auto 0.000 X10*3/uL (0.0-0.012); NRBC Pct Auto 0.0 /100WBC (0.0-0.2); Platelet Count 287 X10*3/uL (160-400); Red Blood Count 4.60 X10*6/uL (4.60-5.80)
[2024-09-01 10:40] LABS: Hemoglobin A1C 131.5533 umol/L; Total Hemoglobin (HGBA1C) 3842.5122 umol/L
[2024-09-01 11:09] LABS: Alanine Aminotransferase 20 U/L (0-40); Albumin Level 4.1 g/dL (3.5-5.0); Alkaline Phosphatase 87 U/L (39-117); Anion Gap 11 (12-20); Aspartate Amino Transferase 30 U/L (5-37); Blood Urea Nitrogen 25 mg/dL (9-16); Calcium 9.2 mg/dL (8.4-10.2); Carbon Dioxide 28 mmol/L (22-29); Chloride 103 mmol/L (96-108); Cholesterol 113 mg/dL (<200); Estimated Glomerular Filt Rate > 60; HDL Cholesterol 42 mg/dL (>40); Potassium 4.4 mmol/L (3.3-5.1); Sodium 138 mmol/L (135-145); Total Protein 7.4 g/dL (6.5-8.0); Triglycerides 82 mg/dL (<150)
[2024-09-01 11:25] LABS: Folate 7.7 ng/mL (> or = 4.0); Vitamin B12 479 pg/mL (200-900)
== END 2024-09-01 06:17 | disposition home or self-care (01) ==
LOC: HO.HMGCLDS 06:16
PROVIDERS: PCP Nurse Practitioner Family; Visit Provider Nurse Practitioner Family
DX: E66.01 Morbid (severe) obesity due to excess calories (principal); Z68.43 Body mass index [BMI] 50.0-59.9, adult
CPT/HCPCS: 36415; 80053; 80061; 82306; 82607; 82746; 83036; 84443; 85025

== ENCOUNTER 2024-11-03 13:21 | Outpatient (AMB) | payer MEDICARE, SELFPAY ==
[2024-11-03 13:37] VITALS: BP 112/68; PULSE 53; O2SAT 96; BMI 48.8
--- NOTE | 2024-11-03 13:37 | A.OFFVIS_ITS ---
Vital Signs 11/03/24 13:37 Height 6 ft 4 in Weight 401 lb 3.861 oz BMI 48.8 BP 112/68 Blood Pressure Location Lt brachial Position Sitting Pulse 53 Pulse Source Pulse Oximeter Pulse Oximetry (%) 96 Oxygen Delivery Method Room Air Intake Visit Reasons: COPD Intake Note: pt is here for follow up and states his breathing is doing Allergies No Known Allergies (No Known Allergies*) Allergy (Verified 11/03/24 14:01) Medication List - Last Reconciled 11/03/24 by Savanna Andujar MD albuterol sulfate 90 mcg/actuation 2 puffs PO Q6H PRN amiodarone 200 mg PO DAILY 90 days ammonium lactate 12% 1 appl topical BEDTIME Anoro Ellipta 62.5-25 mcg/actuation (umeclidinium-vilanterol) 1 inh PO DAILY 90 days NS ascorbic acid (vitamin C) 1 g PO DAILY 90 days aspirin 81 mg PO DAILY atorvastatin 80 mg PO BEDTIME 90 days bumetanide 2 mg PO DAILY clopidogrel (Plavix) 75 mg PO DAILY docusate sodium (Colace) 100 mg PO BID doxazosin 8 mg PO BEDTIME 90 days duloxetine 60 mg PO DAILY finasteride 5 mg PO DAILY 90 days hospital bed Bariatric hospital bed methenamine hippurate 1 g PO DAILY 90 days methocarbamol 500 mg PO BEDTIME PRN oxybutynin chloride ER 10 mg PO ONCE 90 days oxycodone 10 mg (2 x 5 mg) PO Q12H PRN 5 days [Powered bariatric recliner As directed] pregabalin 150 mg PO TID 90 days ropinirole 2 mg PO TID spironolactone 25 mg PO DAILY walker daily use (rolling sitting walker-bariatric size needed) zolpidem 10 mg PO BEDTIME PRN Do you need a note to return to daycare/school/sports/work: No HPI HPI COPD: Details: Mr. Craven , is here for his follow-up after 3 months. He is very happy about his condition. .Has lost a few lb since last visit Sleeps very well with the CPAP. He loves his CPAP, and is very compliant. Breathing has remained stable except for some shortness of breath when he walks around with a walker. Occasional cough but not much expectoration. Uses O2 2 L/minute along with the CPAP at night, and only p.r.n. during the daytime especially when he goes outdoors. [facility] Medical History Presence of Watchman left atrial appendage closure device Visit for suture removal Rib pain on left side Post-COVID syndrome Traumatic perinephric hematoma of left kidney Chronic diastolic heart failure JEFFRY on CPAP Anemia Sepsis COPD (chronic obstructive pulmonary disease) Acute respiratory failure due to COVID-19 Community acquired pneumonia Viral sepsis Fatigue Acute on chronic diastolic CHF (congestive heart failure) COVID Morbid obesity Paroxysmal atrial fibrillation Testicular swelling Osteoarthritis of right knee Melanoma History of cardioversion Hereditary lymphedema Venous insufficiency Lymphedema COPD (chronic obstructive pulmonary disease) Sensory neuropathy COVID-19 Respiratory failure with hypoxia Restrictive lung disease MATUTE (dyspnea on exertion) Chronic cystitis Bladder outlet obstruction Restless leg syndrome Traumatic complete tear of right rotator cuff Injury of right rotator cuff History of diverticulitis History of umbilical hernia Surgical History S/P shoulder surgery Status post total left knee replacement Hx of colonoscopy History of appendectomy History of arthroscopy of left knee Family History Father Arthritis Diabetes Mother Arthritis Kidney stones Family/Other Arthritis Sister No problems noted. Sister No problems noted. Son No problems noted. Social History Household Members: Spouse Household Members [facility]:: [facility] Do you presently have visiting nurse or other home services: Yes Unable to assess alcohol history related to: Unknown Alcohol intake: current Alcohol intake frequency: holidays/special occasions only Alcohol type: beer Comment: Refused bed alarm due to alarm sensitivity when changing positions. 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 Cognitive needs: No Hearing needs: No Vision needs: No Review of Systems Const All systems reviewed & are unremarkable except as noted in HPI and below Eyes Reports no additional complaints ENT Reports no additional complaints Card Denies chest pain, Denies irregular heart rhythm and Denies leg edema Resp Reports as per HPI GI Reports no additional complaints Reports no additional complaints Musc Reports back pain Skin/Breast Reports system reviewed and no additional complaints, except as documented Neuro Reports no additional complaints Psych Reports no additional complaints Physical Exam Vital Signs: Last Vital Signs Pulse 53 11/03/24 13:37 BP 112/68 11/03/24 13:37 Pulse Ox 96 11/03/24 13:37 Oxygen Delivery Method Room Air 11/03/24 13:37 BMI result Body Mass Index 48.8 Looks healthier as he has lost 34 lb of weight Const Other: wearing oxygen General: cooperative, comfortable (but SOB ) and no acute distress Orientation/consciousness: patient oriented x3 HEENT Head: Yes normal to inspection General nose exam: No nasal polyps present and No nasal discharge present Face and sinus: Yes sinuses nontender Mouth: oropharynx normal Throat: Yes posterior oropharynx normal Eyes General: appearance normal, both eyes and all related structures Neck Neck: Yes normal visual inspection, Yes no lymphadenopathy, Yes trachea midline and Yes no JVD Thyroid: Thyroid normal Chest Chest palpation & inspection: normal inspection of the chest, normal palpation of entire chest wall and no tenderness Resp Other: Percussion note not perceptible because of thick chest wall. Breath sounds are distant and especially decreased over the basilar areas. No wheezes or crepitations are heard. Effort & Inspection: normal respiratory effort and able to speak in complete sentences Auscultation: clear to auscultation bilaterally Cardio Palpation: PMI not normal (Not palpable) Rate: regular rate Rhythm: abnormal rhythm and other (Atrial fib) Heart sounds: no gallops and no murmurs GI Palpation (GI): Soft to palpation, nontender, No hepatosplenomegaly present, no masses and Other GI palpation findings present (Grossly obese and protuberant) Auscultation: normal bowel sounds Back/Spine/Pelvis Cervical Spine: normal cervical lordosis and cervical ROM normal Thoracic/Lumbar Spine: thoracic and lumbar spine normal to inspection, thoraco- lumbar ROM normal and paraspinal muscle tenderness (left trapezius/rhomboid tenderness and tautness of musculature to palpation) Skin General skin exam: no rashes or lesions noted Neuro General: patient oriented x3 and Normal light touch and pain sensation Cranial nerves: Yes CN's II-XII intact bilaterally Extrem General: Yes edema (Has chronic stasis edema /lymphedema both legs which is currently increased) and Yes venous stasis dermatitis Psych Appearance: grossly normal Mental Status: mental status grossly normal Speech and movement: Normal speech and movement present Results Reviewed Results Reviewed: Compliance reportr for the last 30 nights , reviewed and he is a 100% user, with average use per night 6 hours 14 minute. Pressure 12 cm,. No air leak. Residual AHI only 1.3 Assessment & Plan Assessment & Plan (1) Morbid obesity with BMI of 50.0-59.9, adult: Comment: Case of morbid obesity who is successfully losing some weight. This is mainly with his dietary control, and diuretic therapy. Code(s): E66.01 - Morbid (severe) obesity due to excess calories; Z68.43 - Body mass i ndex [BMI] 50.0-59.9, adult Category: Medical Plan: Commended for losing some weight and encouraged to keep on losing even if it is a few lb per month (2) JEFFRY on CPAP: Comment: KNOWN TO HAVE OBSTRUCTIVE SLEEP APNEA. USES CPAP REGULARLY AND HAS BEEN VERY COMPLIANT AND BENEFITTING. ALSO USES OXYGEN 2 L/MINUTE ALONG WITH THE CPAP. Code(s): G47.33 - Obstructive sleep apnea (adult) (pediatric); Z99.89 - Dependence on other enabling machines and devices Category: Medical Plan: Commended for very good compliance, continue to use CPAP every night. Along with O2 2 L/minute. (3) COPD (chronic obstructive pulmonary disease): Comment: HE DOES HAVE FEATURES OF OBSTRUCTIVE AIRWAY DISORDER, IN ADDITION TO RESTRICTIVE LUNG DISEASE DUE TO HIS MORBID OBESITY, AT PRESENT WELL CONTROLLED WITH USE OF ANORO ELLIPTA ONCE A DAY Code(s): J44.9 - Chronic obstructive pulmonary disease, unspecified Category: Medical Plan: CONTINUE USING ANORO ELLIPTA 1 INHALATION DAILY AND USE ALBUTEROL HFA ONLY P.R.N. IF ANY WHEEZING OR SHORTNESS OF BREATH. (4) Restrictive lung disease: Comment: RESTRICTION IS MAINLY BECAUSE OF HIS MORBID OBESITY. Code(s): J98.4 - Other disorders of lung Category: Medical Plan: IS USED TO DO DEEP BREATHING EXERCISES AND ENCOURAGED TO KEEP ON DOING IT 3 TIMES A DAY Coding Level of Care Code Est Pt Level 3 (88937) Diagnoses Morbid obesity with BMI of 50.0-59.9, adult E66.01; Z68.43 JEFFRY on CPAP G47.33; Z99.89 COPD (chronic obstructive pulmonary disease) J44.9 Restrictive lung disease J98.4
--- OUTSIDE RECORDS SUMMARY | 2024-11-03 17:04 | XMS_ITS | Encounter Summary ---
Author Organization [facility] Address [id number] [place] [phone] Care Team Providers Care Tv Host Name Role Phone Venus Belcher MD Primary Care Provider + Encounter Details Date Type Department Care Team (Late st Contact Info) Description 04/18/2024 Lab Requisition [facility] - Main Lab [address] [facility] [place] [address] Venus Belcher MD [address] [address] Cellulitis, unspecified Social History Tobacco Use Types [...] unspecified documented in this encounter Care Teams Tv Host Relationship Specialty Start Date End Date Venus Belcher MD [address] [phone] PCP - General Family Medicine 04/06/24 documented as of this encounter
--- OUTSIDE RECORDS SUMMARY | 2024-11-03 17:04 | XMS_ITS | Encounter Summary ---
Author Organization [facility] Address [id number] [place] [phone] Care Team Providers Care Global Ceo Name Role Phone Venus Belcher MD Primary Care Provider + Encounter Details Date Type Department Care Team (Late st Contact Info) Description 04/25/[address] [facility] - Main Lab [address] [facility] [place] [address] Venus Belcher MD [address] [address] Cellulitis, unspecified Social History Tobacco Use Types [...] unspecified documented in this encounter Care Teams Global Ceo Relationship Specialty Start Date End Date Venus Belcher MD [address] [place] [address] [phone] PCP - General Family Medicine 04/06/24 documented as of this encounter
--- OUTSIDE RECORDS SUMMARY | 2024-11-03 17:04 | XMS_ITS | Encounter Summary ---
Author Organization [facility] Address [address] [place] [address] Care Team Providers Care Box Office Agent Name Role Phone Venus Belcher MD Primary Care Provider + Encounter Details Date Type Department Care Team (Late st Contact Info) Description 04/06/2024 Lab Requisition [facility] - Main Lab [address] [place] [address] Venus Belcher MD 819 [facility] 1 [place], [place] [phone] Cellulitis, unspecified Social History Tobacco Use Types [...] LAB CHEMISTRY METHOD 04/06/2024 11:35 AM EST [facility] Potassium 4.5 3.5 - 5.5 mmol/L LAB CHEMISTRY METHOD 04/06/2024 11:35 AM EST [facility] Comment:Hemolysis present Chloride [...] [facility] Comment:Calculation based on the Chronic Kidney Disease Epidemiology Collaboration (CKD-EPI) equation refit without adjustment for race. BUN/Creatinine Ratio 11.7 LAB [...] LAB CHEMISTRY METHOD 04/06/2024 11:35 AM EST [facility] Total Bilirubin 1.3 0.0 - 1.4 mg/dL LAB CHEMISTRY METHOD 04/06/2024 11:35 AM EST [facility] Blood Venous blood specimen / Unknown Venipuncture / Unknown 04/06/2024 9:00 AM EST 04/06/2024 9:48 AM EST us Venus Belcher MD LAB BLOOD ORDERABLES Fin al Result [facility] [address] [place] [address], documented in this encounter Visit Diagnoses Diagnosis Cellulitis, unspecified documented in this encounter Care Teams Box Office Agent Relationship Specialty Start Date End Date Venus Belcher MD [address] [place] [phone] PCP - General Family Medicine 04/06/24 documented as of this encounter
--- OUTSIDE RECORDS SUMMARY | 2024-11-03 17:04 | XMS_ITS | Encounter Summary ---
Author Organization [facility] Address [address] [place] [address] Care Team Providers Care Sales Product Manager Name Role Phone Venus Belcher MD Primary Care Provider + Encounter Details Date Type Department Care Team (Late st Contact Info) Description 04/13/2024 Lab Requisition [facility] - Main Lab 299 [facility] [place] [address] Venus Belcher MD [address] [address] Cellulitis, unspecified Social History Tobacco Use Types [...] documented in this encounter Care Teams Sales Product Manager Relationship Specialty Start Date End Date Venus Belcher MD [address] [place] [address] [phone] PCP - General Family Medicine 04/06/24 documented as of this encounter
--- OUTSIDE RECORDS SUMMARY | 2024-11-03 17:04 | XMS_ITS | Encounter Summary ---
Author Organization [facility] Address [address] [place] [address] Care Team Providers Care Shift Supervisor Rn Name Role Phone Venus Belcher MD Primary Care Provider + Encounter Details Date Type Department Care Team (Late st Contact Info) Description 04/06/2024 Lab Requisition [facility] - Main Lab [address] [place] [address] Venus Belcher MD 819 [facility] 1 [place], [place] [phone] Cellulitis, unspecified Social History Tobacco Use Types [...] al Result [facility] [address] [place] [address], documented in this encounter Visit Diagnoses Diagnosis Cellulitis, unspecified documented in this encounter Care Teams Shift Supervisor Rn Relationship Specialty Start Date End Date Venus Belcher MD [address] [phone] PCP - General Family Medicine 04/06/24 documented as of this encounter
== END 2024-11-03 14:08 | disposition home or self-care (01) ==
LOC: HO.HPS 13:22
PROVIDERS: PCP Nurse Practitioner Family; Visit Provider Internal Medicine
DX: E66.01 Morbid (severe) obesity due to excess calories (principal); Z68.43 Body mass index [BMI] 50.0-59.9, adult; G47.33 Obstructive sleep apnea (adult) (pediatric); Z99.89 Dependence on other enabling machines and devices; J44.9 Chronic obstructive pulmonary disease, unspecified; J98.4 Other disorders of lung
CPT/HCPCS: 99213

== ENCOUNTER → 2024-11-03 13:21 | Outpatient (BNVA) | payer MEDICARE, SELFPAY | PROVIDERS: PCP Nurse Practitioner Family; Visit Provider Internal Medicine | DX: J44.9 Chronic obstructive pulmonary disease, unspecified (principal); J98.4 Other disorders of lung; G47.33 Obstructive sleep apnea (adult) (pediatric); Z99.89 Dependence on other enabling machines and devices; E66.01 Morbid (severe) obesity due to excess calories; Z68.43 Body mass index [BMI] 50.0-59.9, adult | CPT/HCPCS: 99212 ==

== ENCOUNTER 2024-11-17 15:11 | Outpatient (AMB) | payer MEDICARE, SELFPAY ==
--- NOTE | 2024-11-17 15:28 | A.OFFPC_ITS ---
Vital Signs 11/17/24 15:30 Height 6 ft 4 in Weight 402 lb BMI 48.9 BP 126/78 Blood Pressure Location Lt brachial Position Sitting Respiration 16 Pulse 69 Pulse Source Pulse Oximeter Temp 98.0 F Temp Source Oral Pulse Oximetry (%) 96 Oxygen Delivery Method Room Air Intake Visit Reasons: 4m follow up Pewter Fabricator Required: No Accompanied by: Self / Same As Patient Allergies No Known Allergies (No Known Allergies*) Allergy (Verified 11/17/24 16:27) Medication List - Last Reconciled 11/17/24 by Diego Augustine, COMPLIANCE ATTORNEY- albuterol sulfate 90 mcg/actuation 2 puffs PO Q6H PRN amiodarone 200 mg PO DAILY 90 days ammonium lactate 12% 1 appl topical BEDTIME Anoro Ellipta 62.5-25 mcg/actuation (umeclidinium-vilanterol) 1 inh PO DAILY 90 days NS ascorbic acid (vitamin C) 1 g PO DAILY 90 days aspirin 81 mg PO DAILY atorvastatin 80 mg PO BEDTIME 90 days bumetanide 2 mg PO DAILY clopidogrel (Plavix) 75 mg PO DAILY docusate sodium (Colace) 100 mg PO BID doxazosin 8 mg PO BEDTIME 90 days duloxetine 60 mg PO DAILY finasteride 5 mg PO DAILY 90 days hospital bed Bariatric hospital bed methenamine hippurate 1 g PO DAILY 90 days methocarbamol 500 mg PO BEDTIME PRN oxybutynin chloride ER 10 mg PO ONCE 90 days [Powered bariatric recliner As directed] pregabalin 150 mg PO TID 90 days ropinirole 2 mg PO TID semaglutide (weight loss) (Wegovy) 0.5 mg subcut QWEEK spironolactone 25 mg PO DAILY walker daily use (rolling sitting walker-bariatric size needed) zolpidem 10 mg PO BEDTIME PRN Tobacco use date assessed: 11/17/24 Fall risk assessment: No Falls in past year Last assessed Fall Risk: 11/17/24 Dental Screening Dental Screen Date: 11/17/24 Did you have a dental visit in the last 12 months?: Yes Did you have a dental problem in the last 6 months where you did not have access to dental care?: No Was dental information given to patient?: Patient has dentist HPI 4m follow up 2 HPI Details Chief Complaint The patient presents for a follow-up visit. History of Present Illness The patient is a 69-year-old male presenting with a follow-up visit. He reports significant weight loss attributed to semaglutide use and improved respiratory function, requiring less supplemental oxygen and experiencing better ambulation. He denies any chest pain or increased dyspnea, although he continues to have +2 pitting edema in the bilateral lower extremities (chronic CHF/venous insuff) The patient is morbidly obese and uses a rolling walker for longer distances. He is actively following up with multiple specialists, including cardiology, pulmonology, pain management, rheumatology, urology, and vascular surgery. Approximately 10 weeks ago, the patient's attempted suicide, which significantly impacted his mental health, causing him to stay home more frequently. However, as his 's condition has improved, so has his mental well-being. Pt sees a therapist weekly Social History - Family status: Patient's attempte d suicide approximately 10 weeks ago, impacting his mental health. - Functional status: Uses a rolling walk er for longer distances. Health Maintenance Review of Systems - Respiratory: Reports improved breathin g, denies increased dyspnea. - Cardiovascular: Denies chest pain. Physical Exam General: Cooperative, healthy appearing, comfortable, no acute distress and well developed, morbidly obese, losing weight Orientation: Patient oriented x3 Head: Normal to inspection Ears: Hearing grossly normal bilaterally Nose: Normal external nose present Face and sinus: Normal facial exam Eyes: Appearance normal, both eyes and all related structures Neck: Normal visual inspection and Yes full ROM Respiratory: normal respiratory effort and able to speak in complete sentences. Lungs diminished but moving air bilaterally Cardiovascular: Regular rate and rhythm. Normal S1 and S2 GI: Normal to inspection. Soft to palpation and nontender Skin: BLE (wrapped) Neuro: Patient oriented x3 Extremities: Plus 2 pitting edema to bilateral extremities, venous discoloration Plan 1. Morbid Obesity The patient is advised to continue weight management strategies, including the use of semaglutide, which has been effective in weight reduction. Follow-up with nutrition and exercise specialists is recommended to support ongoing weight loss efforts. 2. Peripheral Edema The patient is advised to continue monitoring edema and follow up with cardiology and pulmonology to manage underlying causes. pt on diuretics, chronic CHF 3. Improved Respiratory Function The patient reports improved respiratory function, requiring less supplemental oxygen, and is advised to continue current management and follow-up with pulmonology. weight loss seems to be helping 4. Mental Health Improvement The patient is encouraged to maintain mental health improvements and cont counseling, especially given the recent stress related to his 's health. [facility] Medical History Presence of Watchman left atrial appendage closure device Visit for suture removal Rib pain on left side Post-COVID syndrome Traumatic perinephric hematoma of left kidney Chronic diastolic heart failure JEFFRY on CPAP Anemia Sepsis COPD (chronic obstructive pulmonary disease) Acute respiratory failure due to COVID-19 Community acquired pneumonia Viral sepsis Fatigue Acute on chronic diastolic CHF (congestive heart failure) COVID Morbid obesity Paroxysmal atrial fibrillation Testicular swelling Osteoarthritis of right knee Melanoma History of cardioversion Hereditary lymphedema Venous insufficiency Lymphedema COPD (chronic obstructive pulmonary disease) Sensory neuropathy COVID-19 Respiratory failure with hypoxia Restrictive lung disease MATUTE (dyspnea on exertion) Chronic cystitis Bladder outlet obstruction Restless leg syndrome Traumatic complete tear of right rotator cuff Injury of right rotator cuff History of diverticulitis History of umbilical hernia Surgical History S/P shoulder surgery Status post total left knee replacement Hx of colonoscopy History of appendectomy History of arthroscopy of left knee Family History Father Arthritis Diabetes Mother Arthritis Kidney stones Family/Other Arthritis Sister No problems noted. Sister No problems noted. Son No problems noted. Social History Household Members: Spouse Household Members Other:: [facility] Do you presently have visiting nurse or other home services: Yes Alcohol intake: current Alcohol intake frequency: holidays/special occasions only Alcohol type: beer Comment: Refused bed alarm due to alarm sensitivity when changing positions. 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 1. Little interest or pleasure in doing things: several days 2. Feeling down, depressed, or hopeless: not at all 3. Trouble falling or staying asleep, or sleeping too much: more than half the days 4. Feeling tired or having little energy: several days 5. Poor appetite or overeating: more than half the days 6. Feeling bad about yourself - or that you are a failure or have let yourself or your family down: not at all 7. Trouble concentrating on things, such as reading the newspaper or watching television: several days 8. Moving or speaking so slowly that other people could have noticed. Or the opposite - being so fidgety or restless that you have been moving around a lot more than usual: several days 9. Thoughts that you would be better off or of hurting yourself in some way: not at all Total score: 8 Depression Screening Interpretation: Positive (has a therapist, denies any si or hi) Depression Screening Follow-up: Existing condition and Declines treatment Depression Screening Done: Yes 20123 - PHQ-9 Billing: Yes Source: Developed by Drs. Marc Victoria, Karen Nguyen, Tristan Dominguez and colleagues, with an educational juan from [employer]. Thrive Questionnaire Date Thrive assessed: 06/03/24 I am a: Patient What is your living situation today?: I have a steady place to live Within the past 12 months, did the food you bought not last and you didn't have the money to get more?: Sometimes True Within the past 12 months, did you worry whether your food would run out before you got money to buy more?: Sometimes True Do you have trouble paying for medicines?: Yes Do you have trouble getting transportation to medical appointments?: No Do you have trouble paying your heating and electricity bill?: Yes Do you have trouble taking care of your child, family member or friend?: No Do you have trouble with day-to-day activities such as bathing, preparing meals, shopping, managing finances, etc.?: Yes Are you currently unemployed and looking for a job?: No Are you interested in more education?: No Currently or been in a relationship where the following occur: No concerns reported THRIVE Score: 3 KIRA-7 AMB Questionnaire KIRA-7 Date KIRA - 7 assessed: 11/17/24 Feeling nervous, anxious, or on edge: 2 = More than half the days Not being able to stop or control worryin = Not at all Worrying too much about different things: 0 = Not at all Trouble relaxin = Several days Being so restless that it is hard to sit still: 0 = Not at all Becoming easily annoyed or irritable: 0 = Not at all Feeling afraid as if something awful might happen: 1 = Several days Total KIRA-7 score (0-4 normal; 5-9 mild; 10-14 moderate; 15-21 severe): 4 Source: Developed by Drs. Marc Victoria, Karen Nguyen, Tristan Dominguez and colleagues, with an educational juan from [employer]. Physical exam (Primary Care) Vital Signs: Last Vital Signs Temp 98.0 F 11/17/24 15:30 Pulse 69 11/17/24 15:30 Resp 16 11/17/24 15:30 BP 126/78 11/17/24 15:30 Pulse Ox 96 11/17/24 15:30 Oxygen Delivery Method Room Air 11/17/24 15:30 BMI result Body Mass Index 48.9 Tobacco/Smoking Status: Tobacco use Status Tobacco use date assessed 11/17/24 11/17/24 15:39 Patient Tobacco Use Status Former Tobacco user 11/17/24 15:33 Tobacco use type Cigarette 11/17/24 15:33 e-Cigarette/Vaping Use Never Used 11/17/24 15:33 PHQ-9: PHQ-9 Score PHQ-9: Total score 8 11/17/24 16:40 Depression Screening Interpretation: Positive (has a therapist, denies any si or hi) Depression Screening Follow-up: Existing condition and Declines treatment Thrive Assessment: Date of Thrive Assessment Date Thrive assessed 06/03/24 11/17/24 15:33 Currently or been in a relationship where the following occur: No concerns reported Coding Level of Care Code Est Pt Level 4 (94362) Diagnoses Morbid obesity with BMI of 50.0-59.9, adult E66.01; Z68.43 Chronic diastolic heart failure I50.32 COPD (chronic obstructive pulmonary disease) J44.9 Additional Codes PHQ-9 - 57638 - PHQ-9 Billing: Yes ([id number]) Assessment & Plan Assessment & Plan (1) Morbid obesity with BMI of 50.0-59.9, adult: Comment: Case of morbid obesity who is successfully losing some weight. This is mainly with his dietary control (glp-1), and diuretic therapy. Code(s): E66.01 - Morbid (severe) obesity due to excess calories; Z68.43 - Body mass index [BMI] 50.0-59.9, adult Category: Medical (2) Chronic diastolic heart failure: Comment: Code(s): I50.32 - Chronic diastolic (congestive) heart failure Category: Medical (3) COPD (chronic obstructive pulmonary disease): Comment: Code(s): J44.9 - Chronic obstructive pulmonary disease, unspecified Category: Medical Plan .
[2024-11-17 15:30] VITALS: BP 126/78; PULSE 69; RESP 16; TEMP 36.7; O2SAT 96; BMI 48.9
--- OUTSIDE RECORDS SUMMARY | 2024-11-17 16:13 | XMS_ITS | Encounter Summary ---
Author Organization [facility] Address [address] [place] [address] Care Team Providers Care Senior Care Manager Name Role Phone Venus Belcher MD Primary Care Provider + Encounter Details Date Type Department Care Team (Late st Contact Info) Description 04/18/2024 Lab Requisition [facility] - Main Lab 299 [facility] [place] [address] Venus Belcher MD [address] [address] Cellulitis, unspecified Social History Tobacco Use Types [...] unspecified documented in this encounter Care Teams Senior Care Manager Relationship Specialty Start Date End Date Venus Belcher MD [address] [place] [address] [phone] PCP - General Family Medicine 04/06/24 documented as of this encounter
--- OUTSIDE RECORDS SUMMARY | 2024-11-17 16:13 | XMS_ITS | Clinical Summary ---
Author Organization [address] Address [address] [place] [address] Phone Care Team Providers Care Live In Companion Name Role Phone Elder, Venus Olivares MD Primary Care Provider + Social History Tobacco Use Types Packs/Day Years Used Date Smoking Tobacco: Never Assessed Sex and Gender Information Value Date Recorded Sex Assigned at Not on file Legal Sex Male 1:13 AM EST Gender Identity Not on file Sexual Orientation Not on file Plan of Treatment Health Maintenance Due Date Last Done Comments Colorectal Cancer Screening: Colonoscopy 1955 DTaP,Tdap,and Td Vaccines (1 - Tdap) 02/03/1976 Pneumococcal Vaccine: 50+ Ye ars (1 of 1 - PCV) 2007 Zoster Vaccines (1 of 2) 2007 Abdominal Aortic Aneurysm (A AA) Screen 01/20/2022 Cholesterol Screening (Lipid Panel) 01/20/2022 Hepatitis C Screening 01/20/2022 Medicare Annual Wellness Visit 01/20/2022 Social Influencers of Health Screening 01/20/2022 Falls Risk Assessment 2022 Depression Screening 02/18/2024 COVID-19 Vaccine (1 - 2023-2 5 season) 2024 Influenza Vaccine (#1) 2024 RSV Immunization Adult Patie nts (1 [...] age to complete this topic Insurance MEDICARE [facility] Advance Directives Documents on File Type Date Recorded Patient Security Escort Expl anation Health Care Decision (hx) 04/17/2016 AD [place] DIRECTIVE Health Care Decision (hx) 04/17/2016 AD [place] DIRECTIVE Health Care Decision (hx) 04/17/2016 AD [place] DIRECTIVE Health Care Decision (hx) 04/17/2016 AD [place] DIRECTIVE Care Teams Live In Companion Relationship Specialty Start Date End Date Venus Belcher MD [address] [id number] PCP - General Family Medicine 04/06/24
--- OUTSIDE RECORDS SUMMARY | 2024-11-17 16:13 | XMS_ITS | Encounter Summary ---
Author Organization [facility] Address [address] [place] [address] Care Team Providers Care Finished Cloth Checker Name Role Phone Venus Belcher MD Primary Care Provider + Encounter Details Date Type Department Care Team (Late st Contact Info) Description 04/13/2024 Lab Requisition [facility] - Main Lab 299 [facility] [place] [address] Venus Belcher MD [address] [address] Cellulitis, unspecified Social History Tobacco Use Types [...] unspecified documented in this encounter Care Teams Finished Cloth Checker Relationship Specialty Start Date End Date Venus Belcher MD [address] [place] [address] [phone] PCP - General Family Medicine 04/06/24 documented as of this encounter
--- OUTSIDE RECORDS SUMMARY | 2024-11-17 16:13 | XMS_ITS | Encounter Summary ---
Author Organization [facility] Address [address] [place] [address] Care Team Providers Care Calibration Specialist Name Role Phone Venus Belcher MD Primary Care Provider + Encounter Details Date Type Department Care Team (Late st Contact Info) Description 04/06/2024 Lab Requisition [facility] - Main Lab [address] [place] [address] Venus Belcher MD 819 [facility] 1 [place], [place] [phone] Cellulitis, unspecified Social History Tobacco Use Types [...] mmol/L LAB CHEMISTRY METHOD 04/06/2024 11:35 AM [facility] LAB CO2 23 21 - 32 mmol/L LAB CHEMISTRY METHOD 04/06/2024 11:35 AM [facility] LAB Anion Gap 12(H) 3 - 11 LAB CHEMISTRY METHOD 04/06/2024 11:35 AM [facility] LAB Glucose 112(H) 70 - 100 mg/dL LAB CHEMISTRY METHOD 04/06/2024 11:35 AM [facility] LAB BUN 12 5 - 25 mg/dL LAB CHEMISTRY METHOD 04/06/2024 11:35 AM [facility] LAB Creatinine 1.03 0.70 - 1.30 mg/dL LAB CHEMISTRY METHOD 04/06/2024 11:35 AM [facility] LAB eGFR 80 >=60 mL/min/1. 73m2 LAB CHEMISTRY METHOD 04/06/2024 11:35 AM [facility] LAB Comment:Calculation based on the Chronic Kidney Disease Epidemiology Collaboration (CKD-EPI) equation refit without adjustment for race. BUN/Creatinine Ratio 11.7 LAB CHEMISTRY METHOD 04/06/2024 11:35 AM [facility] LAB Calcium 8.9 8.5 - 10.5 mg/dL LAB CHEMISTRY METHOD 04/06/2024 11:35 AM [facility] LAB AST (SGOT) 42 10 - 42 unit/L LAB CHEMISTRY METHOD 04/06/2024 11:35 AM [facility] LAB Comment:Hemolysis present ALT (SGPT) 30 10 - 60 unit/L LAB CHEMISTRY METHOD 04/06/2024 11:35 AM [facility] LAB Alkaline Phosphatase 75 42 - 121 unit/L LAB CHEMISTRY METHOD 04/06/2024 11:35 AM [facility] LAB Total Protein 6.8 6.0 - 8.0 g/dL LAB CHEMISTRY METHOD 04/06/2024 11:35 AM [facility] LAB Albumin 2.1(L) 3.2 - [...] al Result [facility] [address] [place] [address], documented in this encounter Visit Diagnoses Diagnosis Cellulitis, unspecified documented in this encounter Care Teams Calibration Specialist Relationship Specialty Start Date End Date Venus Belcehr MD [address] [place] [phone] PCP - General Family Medicine 04/06/24 documented as of this encounter
--- OUTSIDE RECORDS SUMMARY | 2024-11-17 16:13 | XMS_ITS | Encounter Summary ---
Author Organization [facility] Address [address] [place] [address] Care Team Providers Care Director It Project Name Role Phone Venus Belcher MD Primary Care Provider + Encounter Details Date Type Department Care Team (Late st Contact Info) Description 04/25/2024 Lab Requisition [facility] - Main Lab 299 [facility] [place] [address] Venus Belcher MD [address] [address] Cellulitis, unspecified Social History Tobacco Use Types [...] documented in this encounter Care Teams Director It Project Relationship Specialty Start Date End Date Venus Belcher MD [address] [place] [address] [phone] PCP - General Family Medicine 04/06/24 documented as of this encounter
--- OUTSIDE RECORDS SUMMARY | 2024-11-17 16:13 | XMS_ITS | Encounter Summary ---
Author Organization [facility] Address [address] [place] [address] Care Team Providers Care Clock Maker Name Role Phone Venus Belcher MD Primary Care Provider + Encounter Details Date Type Department Care Team (Late st Contact Info) Description 04/06/2024 Lab Requisition [facility] - Main Lab [address] [place] [address] Venus Belcher MD 819 [facility] 1 [place], [place] [phone] Cellulitis, unspecified Social History Tobacco Use Types [...] LAB HEMETOLOGY METHOD 04/06/2024 3:24 PM EST [facility] RBC 3.30(L) 4.50 - 5.50 M/mcL LAB HEMETOLOGY METHOD 04/06/2024 3:24 PM EST [facility] LAB Hemoglobin 10.9(L) 13.5 - 17.5 g/dL LAB HEMETOLOGY METHOD 04/06/2024 3:24 PM EST [facility] LAB Hematocrit 32.9(L) 42.0 - 54.0 % LAB HEMETOLOGY METHOD 04/06/2024 3:24 PM [facility] MCV 98.5(H) 79.0 - 98.0 FL LAB HEMETOLOGY METHOD 04/06/2024 3:24 PM [facility] LAB MCH 32.6(H) 27.0 - 32.0 pcg LAB HEMETOLOGY METHOD 04/06/2024 3:24 PM EST [facility] LAB MCHC 33.1 32.0 - 37.0 g/dL LAB HEMETOLOGY METHOD 04/06/2024 3:24 PM [facility] LAB RDW 13.9 11.0 - 15.0 % LAB HEMETOLOGY METHOD 04/06/2024 3:24 PM [facility] LAB Platelets 476(H) 130 - 400 K/mcL LAB HEMETOLOGY METHOD 04/06/2024 3:24 PM EST [facility] MPV 9.8 7.0 - 11.0 FL LAB HEMETOLOGY METHOD 04/06/2024 3:24 PM EST [facility] NRBC 0.0 <1.0 % LAB HEMETOLOGY METHOD 04/06/2024 3:24 PM [facility] LAB NRBC Absolute 0.00 <0.10 K/mcL LAB HEMETOLOGY METHOD 04/06/2024 3:24 PM [facility] Blood Venous blood specimen / Unknown Venipuncture / Unknown 04/06/2024 1:21 PM EST 04/06/2024 2:57 PM EST us Venus Belcher MD LAB BLOOD ORDERABLES Fin al Result [facility] [address] [place] [address], documented in this encounter Visit Diagnoses Diagnosis Cellulitis, unspecified documented in this encounter Care Teams Clock Maker Relationship Specialty Start Date End Date Venus Belcher MD [address] [place] [address] [phone] PCP - General Family Medicine 04/06/24 documented as of this encounter
== END 2024-11-17 17:25 | disposition home or self-care (01) ==
LOC: HO.HMCC 15:12
PROVIDERS: PCP Nurse Practitioner Family; Visit Provider Nurse Practitioner Family
DX: E66.01 Morbid (severe) obesity due to excess calories (principal); Z68.43 Body mass index [BMI] 50.0-59.9, adult; I50.32 Chronic diastolic (congestive) heart failure; J44.9 Chronic obstructive pulmonary disease, unspecified

== ENCOUNTER → 2024-11-17 15:11 | Outpatient (BNVA) | payer MEDICARE, SELFPAY | PROVIDERS: PCP Nurse Practitioner Family; Visit Provider Nurse Practitioner Family | DX: E66.01 Morbid (severe) obesity due to excess calories (principal); R60.0 Localized edema; I50.32 Chronic diastolic (congestive) heart failure; J44.9 Chronic obstructive pulmonary disease, unspecified; Z68.43 Body mass index [BMI] 50.0-59.9, adult | CPT/HCPCS: 96127; 99212 ==

== ENCOUNTER 2024-11-26 11:10 | Outpatient (AMB) | payer MEDICARE, SELFPAY ==
--- NOTE | 2024-11-26 11:37 | MHC.OFFVIS ---
Intake Visit Reasons: 6m/UA Intake Note: patient presents today for: 6mo follow up urology medications: vitC, doxazosin, finasteride, oxybutynin, methenamine blood thinners: none today's PVR: 0mls Census Taker Required: No Accompanied by: Self / Same As Patient Allergies No Known Allergies (No Known Allergies*) Allergy (Verified 11/26/24 11:39) HPI Comments Details: Dinh is a very pleasant male. He is a patient of Dr. Chong. He is seen for the following urologic conditions - chronic cystitis - lower urinary tract symptoms Has lost 56 lb over past 2 months on GLP-1 low dose Improved voiding has been maintained Current medications include vitamin-C, methenamine, oxybutynin, doxazosin 8 mg, finasteride Doing much better He will try stopping oxybutynin Late November/Early December 2023 UTI with E coli resistant to Bactrim and ampicillin Placed on vitamin C and methenamine for suppression Background CHF, COPD Lower urinary tract symptoms - predominant urgency Did notice improved stream with doxazosin 8 mg and finasteride Still with urge - responsive to myrbetriq Has been using oxybutynin Hematuria: Chronic cystitis on prior biopsy Episode of marked hematuria October 2020 Microscopic hematuria was diagnosed during routine UA. They are here for the cystoscopy and discussion of imaging findings. Since the last visit the patient has has not noticed gross hematuria, continues to test positive for microscopic hematuria. Relevant medical history for no pertinent medical history. PSA 01/07 1.6, 05/09 1.3 Radiographic imaging: CT KUB NAD - bilateral renal cyst. Cystoscopy findings September 2018 chronic cystitis. Therapeutic plan follow-up in 6 months [facility], [facility] Medical History Presence of Watchman left atrial appendage closure device Visit for suture removal Rib pain on left side Post-COVID syndrome Traumatic perinephric hematoma of left kidney Chronic diastolic heart failure JEFFRY on CPAP Anemia Sepsis COPD (chronic obstructive pulmonary disease) Acute respiratory failure due to COVID-19 Community acquired pneumonia Viral sepsis Fatigue Acute on chronic diastolic CHF (congestive heart failure) COVID Morbid obesity Paroxysmal atrial fibrillation Testicular swelling Osteoarthritis of right knee Melanoma History of cardioversion Hereditary lymphedema Venous insufficiency Lymphedema COPD (chronic obstructive pulmonary disease) Sensory neuropathy COVID-19 Respiratory failure with hypoxia Restrictive lung disease MATUTE (dyspnea on exertion) Chronic cystitis Bladder outlet obstruction Restless leg syndrome Traumatic complete tear of right rotator cuff Injury of right rotator cuff History of diverticulitis History of umbilical hernia Surgical History S/P shoulder surgery Status post total left knee replacement Hx of colonoscopy History of appendectomy History of arthroscopy of left knee Family History Father Arthritis Diabetes Mother Arthritis Kidney stones Family/Other Arthritis Sister No problems noted. Sister No problems noted. Son No problems noted. Social History Household Members: Spouse Household Members Other:: [facility] Do you presently have visiting nurse or other home services: Yes Alcohol intake: current Alcohol intake frequency: holidays/special occasions only Alcohol type: beer Comment: Refused bed alarm due to alarm sensitivity when changing positions. 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 Cognitive needs: No Hearing needs: No Vision needs: No Review of Systems Const Denies chills and Denies fever(s) Card Reports no additional complaints and Denies syncope Resp Denies cough GI Denies abdominal pain and Denies heartburn Reports as per HPI and Denies change in libido Neuro Denies syncope Psych Denies change in libido Endo Denies change in libido Physical Exam Const General: cooperative, healthy appearing, comfortable and no acute distress Orientation/consciousness: patient oriented x3 HEENT Face and sinus: Yes normal facial exam Mouth: moist mucous membranes Neck Neck: Yes normal visual inspection, Yes full ROM and Yes trachea midline Chest Chest palpation & inspection: normal inspection of the chest Resp Effort & Inspection: normal respiratory effort, able to speak in complete sentences and no respiratory distress GI Inspection: Yes normal to inspection Back/Spine/Pelvis Cervical Spine: normal cervical lordosis Thoracic/Lumbar Spine: thoracic and lumbar spine normal to inspection Skin General skin exam: no rashes or lesions noted Neuro General: patient oriented x3, gait normal, tone normal and moves all extremities Extrem General: Yes normal to inspection and Yes capillary refill normal Assessment & Plan Assessment & Plan (1) Bladder outlet obstruction: Code(s): N32.0 - Bladder-neck obstruction Category: Medical (2) Chronic cystitis: Code(s): N30.20 - Other chronic cystitis without hematuria Category: Medical (3) Overactive bladder: Code(s): N32.81 - Overactive bladder Category: Medical Plan Twelve month follow-up Patient Instructions: This note is constructed using voice recognition software. While every effort has been made to ensure accuracy internal revenue service agent errors may have been included. Imaging studies, laboratory and physical exam results were discussed and reviewed in detail. No major barriers to patient understanding were identified. An opportunity to ask questions regarding the treatment plan was provided. All questions were answered. The patient expressed understanding and agreement with the above treatment plan. The patient is aware they should contact our office by phone for worsening of their current condition or the appearance of new urologic symptoms. Compliance is encouraged with any medications and followup testing that is ordered. It is a privilege to participate in the urologic care of your patient. If you have any questions or concerns regarding treatment for the above conditions, or other urologic issues, please do not hesitate to contact me. The office telephone contact is [phone]. Sincerely, Dr Prabhu Head MD, [facility] - Urology Compassionate Specialist Care for the Genitourinary System Coding Level of Care Code Est Pt Level 3 (47685) Complex EM visit Add On G2211 Diagnoses Bladder outlet obstruction N32.0 Chronic cystitis N30.20 Overactive bladder N32.81
== END 2024-11-26 12:20 | disposition home or self-care (01) ==
LOC: HO.HUSH 11:11
PROVIDERS: PCP Nurse Practitioner Family; Visit Provider Urology
DX: N32.0 Bladder-neck obstruction (principal); N30.20 Other chronic cystitis without hematuria; N32.81 Overactive bladder; Z13.9 Encounter for screening, unspecified
CPT/HCPCS: 99213; G2211

== ENCOUNTER → 2024-11-26 11:10 | Outpatient (BNVA) | payer MEDICARE, SELFPAY | PROVIDERS: PCP Nurse Practitioner Family; Visit Provider Urology | DX: N32.81 Overactive bladder (principal); N30.20 Other chronic cystitis without hematuria; N32.0 Bladder-neck obstruction | CPT/HCPCS: 51798; 81003; 99212 ==

== ENCOUNTER 2024-12-17 06:07 | Outpatient (REF) | payer MEDICARE, SELFPAY ==
--- OUTSIDE RECORDS SUMMARY | 2024-12-08 10:45 | XMS_ITS | Continuity of Care Document ---
Author Organization [facility] Address [address] [place] [address] Phone Care Team Providers Care Silo Painter Name Role Phone Maximiliano STAPLES, YG, RIRI, [...] Providers Copied on Encounter [facility], [address], [place], [id number], [place] tel:[phone] [facility] Encounter for follow-up examination after completed treatment for conditions other than malignant neoplasmChron ic venous hypertension (idiopathic) with other complications of left lower extremity Oct-2 5 Maximiliano STAPLES RVT, RPVI Robert. [address] [place] [address], [facility] [place], [id number], [place]. tel:[phone] Referring Provider: Diego Jarrett, [address] [place] [address], [place], [address]. tel:[phone] Nubia Kelly Vein Protestant MD ALEX, [address] [place] [address] Dr Winters [address] [place] Santiago [place], [id number], [place] tel:[phone] [facility] (idiopathic) with inflammation of left lower extremity Oct-1 5 Jose Rodriguez. [address] [place] [address], [facility] [place], [place], [id number], [place]. tel:[phone] Referring Provider: Diego Jarrett, [address] [place] [address], [place], [address]. tel:[phone] Nubia Kelly Vein Protestant MD ALEX, [address] [place] [address] [address] 1000[place], [id number], [place] tel:[phone] CVR - [facility] Encounter for follow-up examination after completed treatment for conditions other than malignant neoplasmChron ic venous hypertension (idiopathic) with other complications of left lower extremity Oct-1 5 Maximiliano STAPLES RVT, RPVI Robert. [address] [place] [address], [place], [place], [id number], [place]. tel:[phone] Referring Provider: Diego Jarrett, [address] [place] [address], [place], [address]. tel:[phone] Nubia Kelly Vein Protestant MD ALEX, [address] [place] [address] [address] 1000[place], [id number], [place] tel:[phone] CVR [facility] Chronic venous hypertension (idiopathic) with inflammation of left lower extremity Oct-1 - 5 Maximiliano STAPLES RVT, RPVI Robert. [address] [place] [address], [place] [address], [facility] [place], [id number], [place]. tel:[phone] Referring Provider: Diego Jarrett, [address] [facility], [place], [address]. tel:[phone] Nubia For Vein Protestant MD ALEX, [address] [place] [address] Dr Winters 1000SuNemesio peacock [place], [id number], [place] tel:[phone] [facility] - [place] [facility] [place] Encounter for follow-up examination after completed treatment for conditions other than malignant neoplasmChron ic venous hypertension (idiopathic) with other complications of left lower extremity Oct-1 3- 5 Maximiliano STAPLES RVT, RIRI Tran. [address] [place] [address], [facility] 302, [place], [id number], [place]. tel:[phone] Referring Provider: Diego Jarrett, [address] [facility], [place], [address]. tel:[phone] [place] [facility] MD ALEX, [address] [place] [address] Dr Winters [address]Suite [place] Health[place]emesio [place], [id number], [place] tel:[phone] CVR - [facility] Chronic venous hypertension (idiopathic) with inflammation of left lower extremity Oct-0 5 Maximiliano STAPLES RVT, RIRI Tran. [address] [place] [address] 302, [place], [id number], [place]. tel:[phone] Referring Provider: Diego Jarrett, [address] [facility], [place], [address]. tel:[phone] Office/Outpt E&M Established 25 Mins- CT & [place] [facility] MD ALEX, [address] [place] [address] [address] 1000[place], [id number], [place] tel:[phone] CVR - [facility] Chronic venous hypertension (idiopathic) with other complications of bilateral lower extremityLymp hedema, not elsewhere classifiedDis order of pigmentation, unspecified Sep-2 5 Maximiliano STAPLES RVT, RIRI Tran. [address] [facility], [address], [place], [id number], [place]. tel:[phone] Referring Provider: Diego Jarrett, [address] [facility], [place], [address]. tel:[phone] Nubia Kelly Vein Protestant MD ALEX, [address] [place] [address] [address] 1000[address] 1000[place], [id number], [place] tel:[phone] CVR - [facility] Chronic venous hypertension (idiopathic) with other complications of bilateral lower extremity Oct- 5 Maximiliano STAPLES RVT, RIRI Tran. [address] [facility], [address], [place], [place], [id number], [place]. tel:[phone] Referring Provider: Diego Jarrett, [address] [facility], [place], [address]. tel:[phone] Nubia Kelly Vein Protestant MD ALEX, [address] [place] [address] [address] 1000Suite 1000[place], [id number], [place] tel:[phone] CVR - [facility] Encounter for follow-up examination after completed treatment for conditions other than malignant neoplasmChron ic venous hypertension (idiopathic) with other complications of left lower extremity Sep- 5 Maximiliano STAPLES RVT, RPVI Robert. [address] [facility], [address], [place], [place], [id number], [place]. tel:[phone] Referring Provider: Diego Jarrett, [address] [place] [address], [place], [address]. tel:[phone] Nubia Kelly Vein Protestant MD ALEX, [address] [place] [address] [address] 1000[place], [id number], [place] tel:[phone] CVR - [facility] Encounter for follow-up examination after completed treatment for conditions other than malignant neoplasmVaric ose veins of left lower extremity with pain Sep- 5 Maximiliano STAPLES RVT, RIRI Tran. [address] [facility], [address], [place], [place], [id number], [place]. tel:[phone] Referring Provider: Diego Jarrett, [address] [facility], [place], [address]. tel:[phone] Nubia Kelly Vein Protestant MD ALEX, [address] [place] [address] [address] 1000[place], [id number], [place] tel:[phone] [facility] [place] [facility] Varicose veins of left lower extremity with other complications 5 Maximiliano STAPLES RVT, RIRI Tran. [address] [place] [address], [place], [id number], [place]. tel:[phone] Referring Provider: Diego Jarrett, [address] [facility], [place], [address]. tel:[phone] Nubia Kelly Vein Protestant MD ALEX, [address] [place] [address] [address] 1000[address] 1000[place], [id number], [place] tel:[phone] CVR - [facility] Varicose veins of left lower extremity with other complications 5 Maximiliano STAPLES RVT, RPVI Robert. [address] [place] [address], [place], [id number], [place]. tel:[phone] Referring Provider: Diego Jarrett, [address] [place] [address], [place], [address]. tel:[phone] Nubia Kelly Vein Protestant MD ALEX, [address] [place] [address] [address] 1000[address] 1000[place], [id number], [place] tel:[phone] [facility] [place] [facility] Encounter for follow-up examination after completed treatment for conditions other than malignant neoplasmChron ic venous hypertension (idiopathic) with other complications of right lower extremity 5 Maximiliano STAPLES RVT, RPVI Robert. [address] [place] [address], [place] [address], [place], [id number], [place]. tel:[phone] Referring Provider: Diego Jarrett, [address] [place] [address], [place], [address]. tel:[phone] Nubia Kelly Vein Protestant MD ALEX, [address] [place] [address] [address]Suite [place], [id number], [place] tel:[phone] [facility] [place] [facility] Varicose veins of right lower extremity with other complications 5 Maximiliano STAPLES RVT, RIRI Tran. [address] [place] [address], [place], [place], [id number], [place]. tel:[phone] Referring Provider: Diego Jarrett, [address] [facility], [place], [address]. tel:[phone] Nubia For Vein Protestant MD ALEX, [address] [place] [address] [address]Suite [place], [id number], [place] tel:[phone] [facility] - [place] [facility] [place] Encounter for follow-up examination after completed treatment for conditions other than malignant neChronic venous hypertension (idiopathic) with other complications of right lower extremity 5 Maximiliano STAPLES RVT, RIRI Tran. [address] [place] [address], [place], [place], [id number], [place]. tel:[phone] Referring Provider: Diego Jarrett, [address] [facility], [place], [address]. tel:[phone] [facility] MD ALEX, [address] [place] [address] [address]Suite [place], [id number], [place] tel:[phone] [facility] [place] [facility] [place] Varicose veins of right lower extremity with other complications 5 Maximiliano STAPLES RVT, RIRI Tran. [address] [place] [address], [place], [place], [id number], [place]. tel:[phone] Referring Provider: Diego Jarrett, [address] [facility], [place], [address]. tel:[phone] Office/Outpt E&M Established 15 Mins- CT & [facility] For Vein Protestant MD ALEX, [address] [place] [address] [address]Suite [place], [id number], [place] tel:[phone] CVR - [facility] Localized edemaCramp and spasmRestless legs syndromeVenou s insufficiency (chronic) (peripheral)L ymphedema, not elsewhere classifiedDis order of pigmentation, unspecifiedHe reditary lymphedema 5 Maximiliano STAPLES RVT, RIRI Tran. [address] [facility], [address], [place], [place], [id number], [place]. tel:[phone] Referring Provider: Diego Jarrett, [address] [facility], [place], [address]. tel:[phone] Nubia Kelly Vein Protestant MD ALEX, [address] [place] [address] [address]Suite [place], [id number], [place] tel:[phone] [facility] Chronic venous hypertension (idiopathic) with other complications of bilateral lower extremity 5 Maximiliano STAPLES RVT, RIRI Tran. [address] [place] [address], [place] [address], [place], [place], [id number], [place]. tel:[phone] Referring Provider: Diego Jarrett, [address] [place] [address], [place], [address]. tel:[phone] Nubia For Vein Protestant MD ALEX, [address] [place] [address] [address] 1000Suite [place], [id number], [place] tel:[phone] [facility] Encounter for follow-up examination after completed treatment for conditions other than malignant neoplasmVaric ose veins of right lower extremity with pain 5 Maximiliano STAPLES RVT, RIRI Tran. [facility], [address], [place], [place], [id number], [place]. tel:[phone] Referring Provider: Diego Jarrett, [address] [facility], [place], [address]. tel:[phone] Nubia Kelly Vein Protestant MD ALEX, [address] [place] [address] [address] 1000Suite [place], [id number], [place] tel:[phone] [facility] [place] Varicose veins of right lower extremity with other complications 5 Maximiliano STAPLES RVT, RIRI Tran. [address] [place] [address], [place], [place], [id number], [place]. tel:[phone] Referring Provider: Diego Jarrett, [address] [facility], [place], [address]. tel:[phone] Nubia Kelly Vein Protestant MD ALEX, [address] [place] [address] Dr Winters 1000[facility] [place], [id number], [place] tel:[phone] [facility] [place] [facility] [place] Encounter for follow-up examination after completed treatment for conditions other than malignant neoplasmVaric ose veins of left lower extremity with pain 5 Maximiliano STAPLES RVT, RIRI Tran. [address] [place] [address], [place], [place], [id number], [place]. tel:[phone] Referring Provider: Diego Jarrett, [address] [facility], [place], [address]. tel:[phone] Nubia Kelly Vein Protestant MD ALEX, [address] [place] [address] Dr Winters 1000[facility] 1000[place], [id number], [place] tel:[phone] CVR - [facility] Varicose veins of left lower extremity with other complications 5 Maximiliano STAPLES RVT, RIRI Tran. [address] [place] [address], [place], [place], [id number], [place]. tel:[phone] Referring Provider: Diego Jarrett, [address] [facility], [place], [address]. tel:[phone] Offic/outpt E&m Estab 5 Min Trial- Telemedicine CT & [place] Nubia For Vein Protestant MD ALEX, [address] [place] [address] [address] 1000Suite 1000[place], [id number], [place] tel:[phone] [facility] [place] Hereditary lymphedemaRes tless legs syndromeVenou s insufficiency (chronic) (peripheral)L ymphedema, not elsewhere classifiedDis order of pigmentation, unspecifiedLo calized edemaCramp and spasm May-0 5 Nakia Schneider. [address] [place] [address], [place], [place], [id number], [place]. tel:[phone] Referring Provider: Diego Jarrett, [address] [place] [address], [place], [address]. tel:[phone] Office/Oupt E&M New Pt 30 Mins- CT & [place] [facility], [address] [place] [address] [facility] 1000[address], [place], [id number], [place] tel:[phone] [place] - [place] [facility] [place] Varicose veins of bilateral lower extremities with other complications Cramp and spasmRestless legs syndromeVenou s insufficiency (chronic) (peripheral)L ymphedema, not elsewhere classifiedDis order of pigmentation, unspecifiedHe reditary lymphedema Apr-2 5 Maximiliano STAPLES RVT, RIRI Tran. [address] [place] [address], [facility] [place], [id number], [place]. tel:[phone] Referring Provider: Diego Jarrett, [address] [place] [address], [place], [address]. tel:[phone] [facility], [address] [place] [address] Dr [address]ters 1000[facility] 1000, [place], [id number], [place] tel:[phone] [facility] - [place] Chronic venous hypertension (idiopathic) with other complications of bilateral lower extremity Apr-2 5 Maximiliano STAPLES RVT, RIRI Tran. [address] [place] [address], [facility] [place], [place], [id number], [place]. tel:[phone] Referring Provider: Diego Jarrett, [address] [place] [address], [place], [address]. tel:[phone] Family History Family Member Type Diagnosis Age At Onset No Information Payers Payer name Insurance type Covered democrat ID Authoriza tion(s) Medicare AVIVA PENA [id number] [facility] [id number] Social History Type Description Quantity Date Captured [...]
--- OUTSIDE RECORDS SUMMARY | 2024-12-17 06:09 | XMS_ITS | Encounter Summary ---
Author Organization [facility] Address [address] [place] [address] Care Team Providers Care Crucible Furnace Tender Name Role Phone Venus Belcher MD Primary Care Provider + Encounter Details Date Type Department Care Team (Late st Contact Info) Description 04/06/2024 Lab Requisition [facility] - Main Lab [address] [place] [address] Venus Belcher MD [address] [facility] 1 [place], [place] [phone] Cellulitis, unspecified Social History Tobacco Use Types [...] [facility] Comment:Calculation based on the Chronic Kidney [...] MD LAB BLOOD ORDERABLES Fin al Result [facility] [address] [place] [address], documented in this encounter Visit Diagnoses Diagnosis Cellulitis, unspecified documented in this encounter Care Teams Crucible Furnace Tender Relationship Specialty Start Date End Date Venus Belcher MD [address] [place] [address] PCP - General Family Medicine 04/06/24 documented as of this encounter
--- OUTSIDE RECORDS SUMMARY | 2024-12-17 06:09 | XMS_ITS | Encounter Summary ---
Author Organization [facility] Address [address] [place] [address] Care Team Providers Care Hydrochloric Area Supervisor Name Role Phone Venus Belcher MD Primary Care Provider + Encounter Details Date Type Department Care Team (Late st Contact Info) Description 04/13/2024 Lab Requisition [facility] - Main Lab [address] [facility] [place] [address] Venus Belcher MD [address] [address] Cellulitis, unspecified Social History Tobacco Use Types [...] unspecified documented in this encounter Care Teams Hydrochloric Area Supervisor Relationship Specialty Start Date End Date Venus Belcher MD [address] [place] [phone] PCP - General Family Medicine 04/06/24 documented as of this encounter
--- OUTSIDE RECORDS SUMMARY | 2024-12-17 06:09 | XMS_ITS | Clinical Summary ---
Author Organization [address] Address [address] [place] [address] Phone Care Team Providers Care Parts Finisher Name Role Phone Elder, Venus Olivares MD [...] age to complete this topic Insurance MEDICARE [facility] Advance Directives Documents on File Type Date Recorded Patient Partner Expl anation Health Care Decision (hx) 04/17/2016 AD [place]ING[place]AM DIRECTIVE Health Care Decision (hx) 04/17/2016 AD [place] DIRECTIVE Health Care Decision (hx) 04/17/2016 AD [place] DIRECTIVE Health Care Decision (hx) 04/17/2016 AD [place] DIRECTIVE Care Teams Parts Finisher Relationship Specialty Start Date End Date Venus Belcher MD [address] [address] PCP - General Family Medicine 04/06/24
--- OUTSIDE RECORDS SUMMARY | 2024-12-17 06:09 | XMS_ITS | Encounter Summary ---
Author Organization [facility] Address [address] [place] [address] Care Team Providers Care Medical Voucher Clerk Name Role Phone Venus Belcher MD Primary Care Provider + Encounter Details Date Type Department Care Team (Late st Contact Info) Description 04/25/[address] [facility] - Main Lab [address] [facility] [place] [address] Venus Belcher MD [address] [address] Cellulitis, unspecified Social History Tobacco Use Types [...] documented in this encounter Care Teams Medical Voucher Clerk Relationship Specialty Start Date End Date Venus Belcher MD [address] [place] [phone] PCP - General Family Medicine 04/06/24 documented as of this encounter
--- OUTSIDE RECORDS SUMMARY | 2024-12-17 06:09 | XMS_ITS | Encounter Summary ---
Author Organization [facility] Address [address] [place] [address] Care Team Providers Care Home Office Claim Specialist Name Role Phone Venus Belcher MD Primary Care Provider + Encounter Details Date Type Department Care Team (Late st Contact Info) Description 04/18/2024 Lab Requisition [facility] - Main Lab 299 [facility] [place] [address] Venus Belcher MD [address] [address] Cellulitis, unspecified Social History Tobacco Use Types [...] unspecified documented in this encounter Care Teams Home Office Claim Specialist Relationship Specialty Start Date End Date Venus Belcher MD [address] [place] [phone] PCP - General Family Medicine 04/06/24 documented as of this encounter
--- OUTSIDE RECORDS SUMMARY | 2024-12-17 06:09 | XMS_ITS | Encounter Summary ---
Author Organization [facility] Address [address] [place] [address] Care Team Providers Care Grain Elevator Clerk Name Role Phone Venus Belcher MD Primary Care Provider + Encounter Details Date Type Department Care Team (Late st Contact Info) Description 04/06/2024 Lab Requisition [facility] - Main Lab [address] [place] [address] Venus Belcher MD 819 [facility] 1 [place], [place] [phone] Cellulitis, unspecified Social History Tobacco Use Types [...] LAB HEMETOLOGY METHOD 04/06/2024 3:24 PM EST [facility] LAB RBC 3.30(L) 4.50 - 5.50 M/mcL LAB HEMETOLOGY METHOD 04/06/2024 3:24 PM EST [facility] LAB Hemoglobin 10.9(L) 13.5 - 17.5 g/dL LAB HEMETOLOGY METHOD 04/06/2024 3:24 PM EST [facility] LAB Hematocrit 32.9(L) 42.0 - 54.0 % LAB HEMETOLOGY METHOD 04/06/2024 3:24 PM [facility] LAB MCV 98.5(H) 79.0 - 98.0 FL LAB HEMETOLOGY METHOD 04/06/2024 3:24 PM [facility] LAB MCH 32.6(H) 27.0 - 32.0 pcg LAB HEMETOLOGY METHOD 04/06/2024 3:24 PM EST [facility] LAB MCHC 33.1 32.0 - 37.0 g/dL LAB HEMETOLOGY METHOD 04/06/2024 3:24 PM [facility] RDW 13.9 11.0 - 15.0 % LAB HEMETOLOGY METHOD 04/06/2024 3:24 PM [facility] LAB Platelets 476(H) 130 - 400 K/mcL LAB HEMETOLOGY METHOD 04/06/2024 3:24 PM EST [facility] LAB MPV 9.8 7.0 - 11.0 FL LAB HEMETOLOGY METHOD 04/06/2024 3:24 PM EST [facility] LAB NRBC 0.0 <1.0 % LAB HEMETOLOGY METHOD 04/06/2024 3:24 PM [facility] LAB NRBC Absolute 0.00 <0.10 K/mcL LAB HEMETOLOGY METHOD 04/06/2024 3:24 PM [facility] Blood Venous blood specimen / Unknown Venipuncture / Unknown 04/06/2024 1:21 PM EST 04/06/2024 2:57 PM EST us Venus Belcher MD LAB BLOOD ORDERABLES Fin al Result [facility] [address] [place] [address], documented in this encounter Visit Diagnoses Diagnosis Cellulitis, unspecified documented in this encounter Care Teams Grain Elevator Clerk Relationship Specialty Start Date End Date Venus Belcher MD [address] [address] PCP - General Family Medicine 04/06/24 documented as of this encounter
[2024-12-17 10:20] LABS: MANUAL DIFF FLAG NO
[2024-12-17 10:41] LABS: Hematocrit 44.1 % (42.0-52.0); Hemoglobin 14.3 g/dl (14.0-18.0); Imm Gran Abs Auto 0.03 X10*3/uL (0.00-0.03); Imm Gran Pct Auto 0.4 % (0.0-0.4); Lymphocytes Absolute Auto 1.8 X10*3/uL (1.2-4.9); Mean Corpuscular HGB Conc 32.4 g/dl (31.0-36.0); Mean Corpuscular Hemoglobin 32.8 pg (27.0-33.0); Mean Corpuscular Volume 101.1 fL (80.0-98.0); NRBC Abs Auto 0.000 X10*3/uL (0.0-0.012); NRBC Pct Auto 0.0 /100WBC (0.0-0.2); Platelet Count 293 X10*3/uL (160-400); Red Blood Count 4.36 X10*6/uL (4.60-5.80); White Blood Count 7.2 X10*3/uL (4.8-10.8)
[2024-12-17 10:46] LABS: Appearance Urine Clear; Glucose Urine UA Negative (Negative); PH 7.0 (5.0-9.0); Specific Gravity - Urine 1.015 (1.005-1.025); UMIC TRIGGER UACC YES
[2024-12-17 10:59] LABS: UACC Culture Trigger YES
[2024-12-17 11:08] LABS: Alanine Aminotransferase 15 U/L (0-40); Albumin Level 3.9 g/dL (3.5-5.0); Alkaline Phosphatase 88 U/L (39-117); Anion Gap 9 (12-20); Aspartate Amino Transferase 35 U/L (5-37); Blood Urea Nitrogen 17 mg/dL (9-16); Calcium 9.3 mg/dL (8.4-10.2); Carbon Dioxide 28 mmol/L (22-29); Chloride 106 mmol/L (96-108); Cholesterol 115 mg/dL (<200); Estimated Glomerular Filt Rate > 60; HDL Cholesterol 44 mg/dL (>40); Potassium 4.3 mmol/L (3.3-5.1); Sodium 139 mmol/L (135-145); Total Protein 6.7 g/dL (6.5-8.0); Triglycerides 94 mg/dL (<150)
[2024-12-17 12:19] LABS: Free T4 (Free Thyroxine) 1.13 ng/dL (0.71-1.85)
== END 2024-12-17 06:08 | disposition home or self-care (01) ==
LOC: HO.HMGCLDS 06:07
PROVIDERS: PCP Nurse Practitioner Family; Visit Provider Nurse Practitioner Family
DX: E66.01 Morbid (severe) obesity due to excess calories (principal); Z13.29 Encounter for screening for other suspected endocrine disorder; Z68.43 Body mass index [BMI] 50.0-59.9, adult
CPT/HCPCS: 36415; 80053; 80061; 81001; 84439; 84443; 85025; 87086

== ENCOUNTER 2024-12-21 12:25 | Outpatient (AMB) | payer MEDICARE, SELFPAY ==
--- NOTE | 2024-12-21 12:55 | A.OFFVIS_ITS ---
Vital Signs 12/21/24 12:57 Height 6 ft 4 in Weight 394 lb 2.984 oz BMI 48.0 BP 110/62 Blood Pressure Location Lt brachial Position Sitting Pulse 68 Pulse Source Monitor Intake Visit Reasons: 4 mth f/up Allergies No Known Allergies (No Known Allergies*) Allergy (Verified 12/21/24 13:02) Medication List - Last Reconciled 12/21/24 by CARMITA Lee albuterol sulfate 90 mcg/actuation 2 puffs PO Q6H PRN amiodarone 200 mg PO DAILY 90 days ammonium lactate 12% 1 appl topical BEDTIME Anoro Ellipta 62.5-25 mcg/actuation (umeclidinium-vilanterol) 1 inh PO DAILY 90 days NS ascorbic acid (vitamin C) 1 g PO DAILY 90 days aspirin 81 mg PO DAILY atorvastatin 80 mg PO BEDTIME 90 days bumetanide 2 mg PO DAILY clopidogrel (Plavix) 75 mg PO DAILY docusate sodium (Colace) 100 mg PO BID doxazosin 8 mg PO BEDTIME 90 days duloxetine 60 mg PO DAILY finasteride 5 mg PO DAILY 90 days hospital bed Bariatric hospital bed methenamine hippurate 1 g PO DAILY 90 days methocarbamol 500 mg PO BEDTIME PRN [Powered bariatric recliner As directed] pregabalin 150 mg PO TID 90 days ropinirole 2 mg PO TID semaglutide (weight loss) (Wegovy) 0.5 mg subcut QWEEK spironolactone 25 mg PO DAILY walker daily use (rolling sitting walker-bariatric size needed) zolpidem 10 mg PO BEDTIME PRN HPI HPI 4 mth f/up: Details: Dinh is a 69-year-old male with past medical history of morbid obesity, COPD, sleep apnea with CPAP use, lymphedema in his lower extremities, chronic diast olic heart failure, paroxysmal atrial fibrillation, recent Watchman device insertion who presents for follow-up. Today he reports that he is actively losing weight with weight loss injections. He has been feeling much better overall and states his shortness of breath with activity is improving. He has no shortness of breath at rest. Denying PND, orthopnea. He has chronic leg edema which he says has been stable. He has no skin breaks at this time. No chest discomfort at rest or during activity. No heart palpitations. When he had AFib in the past he says he never felt the palpitations of it. No dizziness, presyncope, syncope, falls. Ambulates with the use of his willing walker. Taking all meds as directed. Currently on aspirin and Plavix and denies any bleeding issues. He had bleeding issues in the past with use of full anticoagulation. He has follow-up with Dr Farfan, for Watchman in Jan. [facility] Medical History (Updated 12/21/24 @ 15:28 by Blanca Lopez, CHELSY-C) Presence of Watchman left atrial appendage closure device Visit for suture removal Rib pain on left side Post-COVID syndrome Traumatic perinephric hematoma of left kidney Chronic diastolic heart failure JEFFRY on CPAP Anemia Sepsis COPD (chronic obstructive pulmonary disease) Acute respiratory failure due to COVID-19 Community acquired pneumonia Viral sepsis Fatigue Acute on chronic diastolic CHF (congestive heart failure) COVID Morbid obesity Paroxysmal atrial fibrillation Testicular swelling Osteoarthritis of right knee Melanoma History of cardioversion Hereditary lymphedema Venous insufficiency Lymphedema COPD (chronic obstructive pulmonary disease) Sensory neuropathy COVID-19 Respiratory failure with hypoxia Restrictive lung disease MATUTE (dyspnea on exertion) Chronic cystitis Bladder outlet obstruction Restless leg syndrome Traumatic complete tear of right rotator cuff Injury of right rotator cuff History of diverticulitis History of umbilical hernia Surgical History S/P shoulder surgery Status post total left knee replacement Hx of colonoscopy History of appendectomy History of arthroscopy of left knee Family History Father Arthritis Diabetes Mother Arthritis Kidney stones Family/Other Arthritis Sister No problems noted. Sister No problems noted. Son No problems noted. Social History Household Members: Spouse Household Members Other:: Housing: Condominium Do you presently have visiting nurse or other home services: Yes Alcohol intake: current Alcohol intake frequency: holidays/special occasions only Alcohol type: beer Comment: Refused bed alarm due to alarm sensitivity when changing positions. 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 Cognitive needs: No Hearing needs: No Vision needs: No Review of Systems Const All systems reviewed & are unremarkable except as noted in HPI and below Reports weight loss ENT Denies dizziness Card Denies chest pain, Denies chest pain at rest, Denies chest pain with activity, Denies rapid heart rate, Denies pedal edema, Denies edema, Denies leg edema, Denies lightheadedness, Denies palpitations, Denies dyspnea, Reports dyspnea on exertion (improving) and Denies orthopnea Resp Denies cough, Denies dyspnea and Reports dyspnea on exertion (improving) GI Denies hematochezia and Denies change in stool character Musc Details: chronic leg lymphedema - stable Reports abnormal gait (uses walker), Denies limited range of motion, Denies muscle cramps, Denies muscle weakness, Denies numbness, Denies radiating pain into limb, Denies stiffness and Denies tingling Neuro Reports abnormal gait (uses walker), Denies dizziness, Denies numbness and Denies tingling Endo Denies palpitations Physical Exam Vital Signs: BMI result Body Mass Index 48.0 Const Other: Morbidly obese General: cooperative, comfortable and no acute distress Orientation/consciousness: patient oriented x3 Eyes Sclerae: sclerae normal Neck Neck: Yes normal visual inspection Resp Effort & Inspection: normal respiratory effort Auscultation: clear to auscultation bilaterally, no rales, no rhonchi and no wheezes Cardio Rate: regular rate Rhythm: regular rhythm Heart sounds: S1 normal heart sound present, S2 normal heart sound present, no gallops, no murmurs and no rubs Neuro General: patient oriented x3 Extrem Other: soft compression devices on each leg, chronic edema - no skin breaks observed. Psych Appearance: grossly normal Mental Status: mental status grossly normal Speech and movement: Normal speech and movement present Office Procedures EKG Details: Today, read by me sinus rhythm with sinus arrhythmia, first-degree AV block, right bundle branch block, rate 68, QTC 457 millisecond [id number], Complete Assessment & Plan Assessment & Plan (1) A-fib: Code(s): I48.91 - Unspecified atrial fibrillation Category: Medical Qualifiers: Atrial fibrillation type: persistent (not longstanding) Qualified Code(s): I48.19 - Other persistent atrial fibrillation Plan: History of paroxysmal atrial fibrillation treated with rhythm control using amiodarone 200 mg daily. He was previously on anticoagulation but stopped due to bleeding issues. He did undergo Watchman device on 09/08/[address] scan done at [facility] 12/03/2024 shows small gap along the right anterior aspect of the device. He has follow-up with Dr. Farfan on in January. He continues on aspirin and Plavix. EKG today showing sinus rhythm with sinus arrhythmia, right bundle branch block, first-degree AV block, QTC 457 milliseconds. Last chest x-ray 04/02/2024 showed COPD, no acute findings. Labs 12/17/2024 showed normal AST and ALT, TSH 0.21. No med changes made at this time. Follow-up with his primary day habilitation specialist in 4 months, sooner if needed. (2) Presence of Watchman left atrial appendage closure device: Comment: 09/08/2024, Dr Farfan Code(s): Z95.818 - Presence of other cardiac implants and grafts Category: Medical Plan: As above (3) Chronic diastolic heart failure: Comment: Code(s): I50.32 - Chronic diastolic (congestive) heart failure Category: Medical Plan: History of chronic diastolic heart failure. Last echocardiogram in our system 10/30/2023 showing EF greater than 70%, mild increase in the RV size, normal RV systolic function, diastolic function indeterminate. He is morbidly obese making clinical assessment more challenging however he does not appear fluid overloaded on exam. Signs and symptoms of heart failure reviewed with him. Discussed low-salt diet, sleep apnea treatment, ongoing weight loss. Continue Aldactone. 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 Has chronic lymphedema in his lower extremities which is currently stable. Plan During the visit, we discussed the patient's ongoing management of atrial fibrillation with the Watchman procedure and the importance of continued follow- up with the vein center for venous insufficiency. We discussed his recent reduction in alcoholic beverages and how this affects his health. He was a pplauded on his weight loss and encouraged to continue with the process. Patient Instructions: - Continue using CPAP for sleep apnea management. - Follow up with the vein center as scheduled for venous insufficiency management. - Maintain reduced alcohol intake to support ongoing weight loss and health improvement. - Follow up with Dr Farfan for Watchman - Follow up with Dr King in 4 mo Patient was informed and verbally consented to the use of an ambient scribe for clinic note documentation during this visit. Visit time spent on chart review, interview, assessment, orders, documentation. Coding Level of Care Code Est Pt Level 4 (20383) Complex EM visit Add On G2211 Diagnoses Persistent atrial fibrillation I48.19 Atrial fibrillation type: persistent (not longstanding) Presence of Watchman left atrial appendage closure device Z95.818 Chronic diastolic heart failure I50.32 On amiodarone therapy Z79.899 Vascular insufficiency I99.8 CPT Codes EKG - CPT: 75661-[id number], Complete ([id number]) Time Spent (min) 36
[2024-12-21 12:57] VITALS: BP 110/62; PULSE 68; BMI 48.0
--- OUTSIDE RECORDS SUMMARY | 2024-12-21 15:10 | XMS_ITS | Encounter Summary ---
Author Organization [facility] Address [address] [place] [phone] Care Team Providers Care Research Center Partner Name Role Phone Venus Belcher MD Primary Care Provider + Encounter Details Date Type Department Care Team (Late st Contact Info) Description 04/18/2024 Lab Requisition [facility] - Main Lab [address] [facility] [place] [address] Venus Belcher MD [address] [address] Cellulitis, unspecified Social History Tobacco Use Types [...] unspecified documented in this encounter Care Teams Research Center Partner Relationship Specialty Start Date End Date Venus Belcher MD [address] [place] [address] [phone] PCP - General Family Medicine 04/06/24 documented as of this encounter
--- OUTSIDE RECORDS SUMMARY | 2024-12-21 15:10 | XMS_ITS | Encounter Summary ---
Author Organization [facility] Address [address] [place] [phone] Care Team Providers Care Chief Petroleum Engineer Name Role Phone Venus Belcher MD Primary Care Provider + Encounter Details Date Type Department Care Team (Late st Contact Info) Description 04/25/2024 Lab Requisition [facility] - Main Lab 299 [facility] [place] [address] Venus Belcher MD [address] [address] Cellulitis, unspecified Social History Tobacco Use Types [...] unspecified documented in this encounter Care Teams Chief Petroleum Engineer Relationship Specialty Start Date End Date Venus Belcher MD [address] [place] [address] [phone] PCP - General Family Medicine 04/06/24 documented as of this encounter
--- OUTSIDE RECORDS SUMMARY | 2024-12-21 15:10 | XMS_ITS | Clinical Summary ---
Author Organization [address] Address [address] [place] [address] Phone Care Team Providers Care Body Shop Floorperson Name Role Phone Elder, Venus Olivares MD [...] Assessment 2022 Depression Screening 02/18/2024 COVID-19 Vaccine ( - 2023-2 5 season) 2024 Influenza Vaccine [...] age to complete this topic Insurance MEDICARE [facility] Advance Directives Documents on File Type Date Recorded Patient Resident Care Assistant Expl anation Health Care Decision (hx) 04/17/2016 AD [place] DIRECTIVE Health Care Decision (hx) 04/17/2016 AD [place] DIRECTIVE Health Care Decision (hx) 04/17/2016 AD [place] DIRECTIVE Health Care Decision (hx) 04/17/2016 AD [place] DIRECTIVE Care Teams Body Shop Floorperson Relationship Specialty Start Date End Date Venus Belcher MD [address] [phone] PCP - General Family Medicine 04/06/24
--- OUTSIDE RECORDS SUMMARY | 2024-12-21 15:10 | XMS_ITS | Encounter Summary ---
Author Organization [facility] Address [address] [place] [address] Care Team Providers Care Air Defense Control Officer Name Role Phone Venus Belcher MD Primary Care Provider + Encounter Details Date Type Department Care Team (Late st Contact Info) Description 04/13/2024 Lab Requisition [facility] - Main Lab 299 [facility] [place] [address] Venus Belcher MD [address] [address] Cellulitis, unspecified Social History Tobacco Use Types [...] unspecified documented in this encounter Care Teams Air Defense Control Officer Relationship Specialty Start Date End Date Venus Belcher MD [address] [place] [address] [phone] PCP - General Family Medicine 04/06/24 documented as of this encounter
--- OUTSIDE RECORDS SUMMARY | 2024-12-21 15:10 | XMS_ITS | Encounter Summary ---
Author Organization [facility] Address [address] [place] [address] Care Team Providers Care Command And Control Name Role Phone Venus Belcher MD Primary Care Provider + Encounter Details Date Type Department Care Team (Late st Contact Info) Description 04/06/2024 Lab Requisition [facility] - Main Lab [address] [place] [address] Venus Belcher MD [address] [facility] 1 [place], [place] [id number] Cellulitis, unspecified Social History Tobacco Use Types [...] [facility] [address] [place] [address], documented in this encounter Visit Diagnoses Diagnosis Cellulitis, unspecified documented in this encounter Care Teams Command And Control Relationship Specialty Start Date End Date Venus Belcher MD [address] [place] [phone] PCP - General Family Medicine 04/06/24 documented as of this encounter
--- OUTSIDE RECORDS SUMMARY | 2024-12-21 15:10 | XMS_ITS | Encounter Summary ---
Author Organization [facility] Address [address] [place] [address] Care Team Providers Care Senior Quality Control Technician Name Role Phone Venus Belcher MD Primary Care Provider + Encounter Details Date Type Department Care Team (Late st Contact Info) Description 04/06/2024 Lab Requisition [facility] - Main Lab [address] [place] [address] Venus Belcher MD 819 [facility] 1 [place], [place] [phone] Cellulitis, unspecified Social History Tobacco Use Types [...] LAB HEMETOLOGY METHOD 04/06/2024 3:24 PM EST [facility] RBC 3.30(L) 4.50 - 5.50 M/mcL LAB HEMETOLOGY METHOD 04/06/2024 3:24 PM EST [facility] Hemoglobin 10.9(L) 13.5 - 17.5 g/dL LAB HEMETOLOGY METHOD 04/06/2024 3:24 PM EST [facility] Hematocrit 32.9(L) 42.0 - 54.0 % LAB HEMETOLOGY METHOD 04/06/2024 3:24 PM [facility] MCV 98.5(H) 79.0 - 98.0 FL LAB HEMETOLOGY METHOD 04/06/2024 3:24 PM [facility] MCH 32.6(H) 27.0 - 32.0 pcg LAB HEMETOLOGY METHOD 04/06/2024 3:24 PM EST [facility] MCHC 33.1 32.0 - 37.0 g/dL LAB HEMETOLOGY METHOD 04/06/2024 3:24 PM [facility] RDW 13.9 11.0 - 15.0 % LAB HEMETOLOGY METHOD 04/06/2024 3:24 PM [facility] Platelets 476(H) 130 - 400 K/mcL LAB HEMETOLOGY METHOD 04/06/2024 3:24 PM EST [facility] MPV 9.8 7.0 - 11.0 FL LAB HEMETOLOGY METHOD 04/06/2024 3:24 PM EST [facility] NRBC 0.0 <1.0 % LAB [...] Fin al Result [facility] [address] [place] [address], documented in this encounter Visit Diagnoses Diagnosis Cellulitis, unspecified documented in this encounter Care Teams Senior Quality Control Technician Relationship Specialty Start Date End Date Venus Belcher MD [address] [phone] PCP - General Family Medicine 04/06/24 documented as of this encounter
== END 2024-12-21 13:39 | disposition home or self-care (01) ==
PROVIDERS: PCP Nurse Practitioner Family; Visit Provider Nurse Practitioner Family
DX: I48.19 Other persistent atrial fibrillation (principal); Z95.818 Presence of other cardiac implants and grafts; I50.32 Chronic diastolic (congestive) heart failure; Z79.899 Other long term (current) drug therapy; I99.8 Other disorder of circulatory system
CPT/HCPCS: 93010; 99214; G2211

== ENCOUNTER → 2024-12-21 12:25 | Outpatient (BNVA) | payer MEDICARE, SELFPAY | PROVIDERS: PCP Nurse Practitioner Family; Visit Provider Nurse Practitioner Family | DX: I50.32 Chronic diastolic (congestive) heart failure (principal); I48.19 Other persistent atrial fibrillation; I99.8 Other disorder of circulatory system; Z95.818 Presence of other cardiac implants and grafts; Z79.899 Other long term (current) drug therapy | CPT/HCPCS: 93005; 99212 ==

== ENCOUNTER 2024-12-25 23:15 | Inpatient (IN) | payer MEDICARE, SELFPAY ==
--- OUTSIDE RECORDS SUMMARY | 2024-12-08 09:45 | XMS_ITS | Continuity of Care Document ---
Author Organization [facility] Address [address] [place] [address] Phone Care Team Providers Care Powertrain Control Systems Engineer Name Role Phone Maximiliano STAPLES, YG, RIRI, Marc Unavailable U navailable Allergies, Adverse Reactions, Alerts Substance Reaction Status Criticality No Known Allergies Active No Inform ation Medications Medication Instructions Dosage Effective Dates (start - stop) Status Comments clopidogrel 75 mg tablet - Activ e Ozempic 1 mg/dose (4 mg/3 mL) subcutaneous pen injector - Active aspirin 81 mg chewable tablet - Active Procedures Procedure Date Duplex Scan-extrem Veins; Uni/ CT & [place] O ct Inj Scleros Solut; Mx Veins 1- CT & [place] O ct Ultrason Guidan Needle Bx-rad- CT & [place] O ct Duplex Scan-extrem Veins; Uni/ CT & [place] O ct- Inj Scleros Solut; Mx Veins 1- CT & [place] O ct- Ultrason Guidan Needle Bx-rad- CT & [place] O ct Duplex Scan-extrem Veins; Uni/ CT & [place] O ct- Varithena, Single Truncal Vein - CT & [place] Office/Outpt E&M Established 25 Mins- CT & [place] Duplex Scan-extrem Veins; Comp- CT & [place] Duplex Scan-extrem Veins; Uni/ CT & [place] A Duplex Scan-extrem Veins; Uni/ CT & [place] A Inj Scleros Solut; Mx Veins 1- CT & [place] A Ultrason Guidan Needle Bx-rad- CT & [place] A Duplex Scan-extrem Veins; Uni/ CT & [place] A Inj Scleros Solut; Mx Veins 1- CT & [place] A Ultrason Guidan Needle Bx-rad- CT & [place] A Inj Scleros Solut; Mx Veins 1- CT & [place] J Ultrason Guidan Needle Bx-rad- CT & [place] J Duplex Scan-extrem Veins; Uni/ CT & [place] J Varithena, Single Truncal Vein - CT & [place] Office/Outpt E&M Established 15 Mins- CT & [place] Duplex Scan-extrem Veins; Comp- CT & [place] Duplex Scan-extrem Veins; Uni/ CT & [place] M Inj Scleros Solut; Mx Veins 1- CT & [place] M Ultrason Guidan Needle Bx-rad- CT & [place] M Duplex Scan-extrem Veins; Uni/ CT & MA [...] Providers Copied on Encounter [facility], [address], [place], [id number], [place] tel:[phone] [facility] Encounter for follow-up examination after completed treatment for conditions other than malignant neoplasmChron ic venous hypertension (idiopathic) with other complications of left lower extremity Oct-2 5 Maximiliano STAPLES RVT, RPVI Robert. [address] [place] [address], [facility] [place], [id number], [place]. tel:[phone] Referring Provider: Diego Jarrett, [address] [place] [address], [place], [address]. tel:[phone] Nubia [facility] MD ALEX, [address] [place] [address] Dr Win[address]Suite [place], [id number], [place] tel:[phone] [facility] ([facility]opathic) with inflammation of left lower extremity Oct-1 5 Jose Rodriguez. [address] [place] [address], [facility] [place], [id number], [place]. tel:[phone] Referring Provider: Diego Jarrett, [address] [place] [address], [place], [address]. tel:[phone] Nubia [facility] MD ALEX, [address] [place] [address] Dr Winters [address] 1000[place], [id number], [place] tel:[phone] CVR - [facility] Encounter for follow-up examination after completed treatment for conditions other than malignant neoplasmChron ic venous hypertension (idiopathic) with other complications of left lower extremity Oct-1 5 Maximiliano STAPLES RVT, RPVI Robert. [address] [place] [address], [place], [place], [id number], [place]. tel:[phone] Referring Provider: Diego Jarrett, [address] [place] [address], [place], [address]. tel:[phone] Nubia [facility] MD ALEX, [address] [place] [address] Dr Winters [address] 1000[place], [id number], [place] tel:[phone] CVR [facility] Chronic venous hypertension (idiopathic) with inflammation of left lower extremity Oct-1 - 5 Maximiliano STAPLES RVT, RPVI Robert. [address] [place] [address], [place] [address], [facility] [place], [id number], [place]. tel:[phone] Referring Provider: Diego Jarrett, [address] [facility], [place], [address]. tel:[phone] Nubia For [facility] MD ALEX, [address] [place] [address] Dr Winters [address]SuN[place]esio [place], [id number], [place] tel:[phone] CVR - [place] - [place] Encounter for follow-up examination after completed treatment for conditions other than malignant neoplasmChron ic venous hypertension (idiopathic) with other complications of left lower extremity Oct-1 3- 5 Maximiliano STAPLES RVT, RIRI Tran. [address] [place] [address], [facility] [address], [place], [id number], [place]. tel:[phone] Referring Provider: Diego Jarrett, [address] [facility], [place], [address]. tel:[phone] [facility] MD ALEX, [address] [place] [address] Dr Winters [address]Suite [facility], [id number], [place] tel:[phone] CVR - [facility] Chronic venous hypertension (idiopathic) with inflammation of left lower extremity Oct-0 5 Maximiliano STAPLES RVT, RIRI Tran. [address] [place] [address] [address], [place], [id number], [place]. tel:[phone] Referring Provider: Diego Jarrett, [address] [facility], [place], [address]. tel:[phone] Office/Outpt E&M Established 25 Mins- CT & [place] [facility] MD ALEX, [address] [place] [address] Dr Winters [address]Suite 1000[place], [id number], [place] tel:[phone] CVR - [facility] Chronic venous hypertension (idiopathic) with other complications of bilateral lower extremityLymp hedema, not elsewhere classifiedDis order of pigmentation, unspecified Sep-2 5 Maximiliano STAPLES RVT, RIRI Tran. [address] [facility], [address], [place], [id number], [place]. tel:[phone] Referring Provider: Diego Jarrett, [address] [facility], [place], [address]. tel:[phone] Nubia Kelly [facility] MD ALEX, [address] [place] [address] Dr Winters 1000[address] 1000[place], [id number], [place] tel:[phone] CVR - [facility] Chronic venous hypertension (idiopathic) with other complications of bilateral lower extremity Oct- 5 Maximiliano STAPLES RVT, RIRI Tran. [address] [facility], [address], [place], [place], [id number], [place]. tel:[phone] Referring Provider: Diego Jarrett, [address] [facility], [place], [address]. tel:[phone] Nubia Kelly [facility] MD ALEX, [address] [place] [address] Dr Winters 1000Suite 1000[place], [id number], [place] tel:[phone] CVR - [facility] Encounter for follow-up examination after completed treatment for conditions other than malignant neoplasmChron ic venous hypertension (idiopathic) with other complications of left lower extremity Sep- 5 Maximiliano STAPLES RVT, RPVI Robert. [address] [facility], [address], [place], [place], [id number], [place]. tel:[phone] Referring Provider: Diego Jarrett, [address] [place] [address], [place], [address]. tel:[phone] Nubia Kelly [facility] MD ALEX, [address] [place] [address] Dr Winters 1000[address] 1000[place], [id number], [place] tel:[phone] CVR - [facility] Encounter for follow-up examination after completed treatment for conditions other than malignant neoplasmVaric ose veins of left lower extremity with pain Sep- 5 Maximiliano STAPLES RVT, RIRI Tran. [address] [facility], [address], [place], [place], [id number], [place]. tel:[phone] Referring Provider: Diego Jarrett, [address] [facility], [place], [address]. tel:[phone] Nubia [facility] MD ALEX, [address] [place] [address] Dr Winters 1000Suite 1000[place], [id number], [place] tel:[phone] CV[place] - [place] Varicose veins of left lower extremity with other complications 5 Maximiliano STAPLES RVT, RIRI Tran. [address] [place] [address], [place], [id number], [place]. tel:[phone] Referring Provider: Diego Jarrett, [address] [facility], [place], [address]. tel:[phone] Nubia [facility] MD ALEX, [address] [place] [address] Dr [address] 1000Suite 1000[place], [id number], [place] tel:[phone] CVR - [facility] Varicose veins of left lower extremity with other complications 5 Maximiliano STAPLES RVT, RPVI Robert. [address] [place] [address], [place], [id number], [place]. tel:[phone] Referring Provider: Diego Jarrett, [address] [place] [address], [place], [address]. tel:[phone] Nubia [facility] MD ALEX, [address] [place] [address] Dr [address] 1000Suite 1000[place], [id number], [place] tel:[phone] CVR - [place] Encounter for follow-up examination after completed treatment for conditions other than malignant neoplasmChron ic venous hypertension (idiopathic) with other complications of right lower extremity 5 Maximiliano STAPLES RVT, RPVI Robert. [address] [place] [address], [place] [address], [place], [id number], [place]. tel:[phone] Referring Provider: Diego Jarrett, [address] [place] [address], [place], [address]. tel:[phone] Nubia Kelly [facility] MD ALEX, [address] [place] [address] Dr Win[address]Suite [place], [id number], [place] tel:[phone] CV[place] - [place] Varicose veins of right lower extremity with other complications 5 Maximiliano STAPLES RVT, RIRI Tran. [address] [place] [address], [place], [place], [id number], [place]. tel:[phone] Referring Provider: Diego Jarrett, [address] [facility], [place], [address]. tel:[phone] Nubia For [facility] MD ALEX, [address] [place] [address] Dr [address]ters [address]Suite [place], [id number], [place] tel:[phone] CV[place] - [place] Encounter for follow-up examination after completed treatment for conditions other than malignant neChronic venous hypertension (idiopathic) with other complications of right lower extremity 5 Maximiliano STAPLES RVT, RIRI Tran. [address] [place] [address], [place], [place], [id number], [place]. tel:[phone] Referring Provider: Diego Jarrett, [address] [facility], [place], [address]. tel:[phone] [facility] MD ALEX, [address] [place] [address] Dr [address]Suite [place], [id number], [place] tel:[phone] CVR - [place] Varicose veins of right lower extremity with other complications 5 Maximiliano STAPLES RVT, RIRI Tran. [address] [place] [address], [place], [place], [id number], [place]. tel:[phone] Referring Provider: Diego Jarrett, [address] [facility], [place], [address]. tel:[phone] Office/Outpt E&M Established 15 Mins- CT & [facility] MD ALEX, [address] [place] [address] Dr Winters [address]Suite [place], [id number], [place] tel:[phone] CVR - [facility] Localized edemaCramp and spasmRestless legs syndromeVenou s insufficiency (chronic) (peripheral)L ymphedema, not elsewhere classifiedDis order of pigmentation, unspecifiedHe reditary lymphedema 5 Maximiliano STAPLES RVT, RIRI Tran. [address] [facility], [address], [place], [place], [id number], [place]. tel:[phone] Referring Provider: Diego Jarrett, [address] [facility], [place], [address]. tel:[phone] Nubia Kelly [facility] MD ALEX, [address] [place] [address] Dr Winters [address]Suite [place], [id number], [place] tel:[phone] [facility] Chronic venous hypertension (idiopathic) with other complications of bilateral lower extremity 5 Maximiliano STAPLES RVT, RIRI Tran. [address] [place] [address], [place] [address], [place], [place], [id number], [place]. tel:[phone] Referring Provider: Diego Jarrett, [address] [place] [address], [place], [address]. tel:[phone] Nubia For [facility] MD ALEX, [address] [place] [address] Dr Winters 1000Suite [place], [id number], [place] tel:[phone] [facility] Encounter for follow-up examination after completed treatment for conditions other than malignant neoplasmVaric ose veins of right lower extremity with pain 5 Maximiliano STAPLES RVT, RIRI Tran. [facility] [facility], [address], [place], [place], [id number], [place]. tel:[phone] Referring Provider: Diego Jarrett, [address] [facility], [place], [address]. tel:[phone] Nubia Kelly [facility] MD ALEX, [address] [place] [address] Dr Winters 1000Suite [place], [id number], [place] tel:[phone] [facility] [place] Varicose veins of right lower extremity with other complications 5 Maximiliano STAPLES RVT, RIRI Tran. [address] [place] [address], [place], [place], [id number], [place]. tel:[phone] Referring Provider: Diego Jarrett, [address] [facility], [place], [address]. tel:[phone] Nubia Kelly [facility] MD ALEX, [address] [place] [address] Dr Winters 1000[facility] [place], [id number], [place] tel:[phone] CVR - [place] - [place] Encounter for follow-up examination after completed treatment for conditions other than malignant neoplasmVaric ose veins of left lower extremity with pain 5 Maximiliano STAPLES RVT, RIRI Tran. [address] [place] [address], [place], [place], [id number], [place]. tel:[phone] Referring Provider: Diego Jarrett, [address] [facility], [place], [address]. tel:[phone] Nubia Kelly [facility] MD ALEX, [address] [place] [address] Dr Winters 1000[facility] [address], [id number], [place] tel:[phone] CVR - [facility] Varicose veins of left lower extremity with other complications 5 Maximiliano STAPLES RVT, RIRI Tran. [address] [place] [address], [place], [place], [id number], [place]. tel:[phone] Referring Provider: Diego Jarrett, [address] [facility], [place], [address]. tel:[phone] Offic/outpt E&m Estab 5 Min Trial- Telemedicine CT & [place] Nubia For [facility] MD ALEX, [address] [place] [address] Dr Winters 1000Suite 1000[place], [id number], [place] tel:[phone] CVR - [place] Hereditary lymphedemaRes tless legs syndromeVenou s insufficiency (chronic) (peripheral)L ymphedema, not elsewhere classifiedDis order of pigmentation, unspecifiedLo calized edemaCramp and spasm May-0 5 Nakia Schneider. [address] [place] [address], [place], [place], [id number], [place]. tel:[phone] Referring Provider: Diego Jarrett, [address] [place] [address], [place], [address]. tel:[phone] Office/Oupt E&M New Pt 30 Mins- CT & [place] [facility], [address] [place] [address] [facility] [address], [place], [id number], [place] tel:[phone] CV - [place] - [place] Varicose veins of bilateral lower extremities with other complications Cramp and spasmRestless legs syndromeVenou s insufficiency (chronic) (peripheral)L ymphedema, not elsewhere classifiedDis order of pigmentation, unspecifiedHe reditary lymphedema Apr-2 5 Maximiliano STAPLES RVT, RIRI Tran. [address] [place] [address], [facility] [place], [id number], [place]. tel:[phone] Referring Provider: Diego Jarrett, [address] [place] [address], [place], [address]. tel:[phone] [facility], [address] [place] [address] Dr Winters 1000[facility], [place], [id number], [place] tel:[phone] [facility] [place] Chronic venous hypertension (idiopathic) with other complications of bilateral lower extremity Apr-2 5 Maximiliano STAPLES RVT, RIRI Tran. [address] [place] [address], [facility] [place], [id number], [place]. tel:[phone] Referring Provider: Diego Jarrett, [address] [place] [address], [place], [address]. tel:[phone] Family History Family Member Type Diagnosis Age At Onset No Information Payers Payer name Insurance type Covered libertarian ID Authoriza tion(s) Medicare AVIVA PENA [id number] [facility] [id number] Social History Type Description Quantity Date Captured Comments Sex Male Smoking Status No Information Chief Complaint And Reason For Visit No Information Reason For Referral Reason For Referral No Information Plan Of Treatment Date Type Action Status Goal Diet education completed Goal Tobacco cessation [...] Information Instructions Date Instruction Additional Infor mation Diet education Related to Body mass index (BMI) 45.0-49.9, adult Pre and post instruc tions reviewed and provided Related to Chronic venous hypertension (idiopathic) with other complications of bilateral lower extremity Patient education booklet given Related to Chronic venous hypertension (idiopathic) with other complications of bilateral lower extremity Lifestyle education Related to B rio mass index (BMI) 45.0-49.9, adult Giving Encouragement to exercise Related to Body mass index (BMI) 45.0-49.9, adult Pre and post instruc tions reviewed and provided Related to Localized edema Patient education booklet given Related to Localized edema Lifestyle education Related to B rio mass index (BMI) 45.0-49.9, adult Giving Encouragement to exercise Related to Body mass index (BMI) 45.0-49.9, adult Diet education Related to Body mass index (BMI) 45.0-49.9, adult Patient education booklet given Related to Localized edema Pre and post instruc tions reviewed and provided Related to Localized edema Pre and post [...]
--- NOTE | ~2024-12-25 | CT_ITS ---
CLINICAL HISTORY: continued abd pain Exam: Nonenhanced CT abdomen and pelvis with multiplanar reformats. Comparison: 12/26/2024 Findings: CT abdomen: Lung bases are clear. Liver is free of focal lesions and ductal dilatation. Gallbladder reveals cholelithiasis, without CT evidence of cholecystitis. Spleen is unremarkable. Pancreas and adrenal glands appear unremarkable. Kidneys appear unremarkable. No urolithiasis or hydroureteronephrosis. No free intraperitoneal fluid or retroperitoneal masses or adenopathy. Abdominal aorta is normal caliber with mild calcific atherosclerosis. Bowel loops reveal similar colonic wall thickening and pericolonic stranding primarily involving the sigmoid colon, compatible with similar nonspecific segmental colitis. Colonic diverticulosis is present, without CT evidence of diverticulitis. The appendix appears to be surgically absent. CT pelvis: Prostate gland and seminal vesicles are stable. Urinary bladder is nondistended. No pelvic masses, fluid or adenopathy. Osseous structures reveal no destructive osseous lesions. Impression: 1. Similar-appearing nonspecific segmental colitis involving the sigmoid colon. 2. No other acute abnormalities or significant change compared with the prior exam. This document has been electronically signed by: Travis Comer MD on 12/28/2024 20:21:47
--- NOTE | ~2024-12-25 | CT_ITS ---
CLINICAL HISTORY: lower abdominal pain with rectal bleed CT abdomen and pelvis with contrast Comparison: CT/SR - CT ABDOMEN PELVIS WO IV CON - 03/24/24 17:31 EST Findings: There is mild bibasilar atelectasis. There is cholelithiasis. Gallbladder appears otherwise normal. The liver, spleen, adrenal glands, and kidneys are unremarkable. There is mild scarring in the retroperitoneal fat in the previous region of the left perinephric hematoma. There is pericolonic fat stranding and mild wall thickening involving the sigmoid colon consistent with colitis. Evaluation for active GI bleeding is severely limited on the venous phase CT. There is colonic diverticulosis. Patient appears to be status post appendectomy. There is no free fluid or free air. The aorta is normal in diameter. There are no enlarged lymph nodes. There are small bilateral fat containing inguinal hernias. There is rectus diastasis with a shallow wide neck ventral hernia. The bladder is decompressed. There is apparent fat stranding around the bladder. There are degenerative changes throughout the lumbar spine. There is no acute fracture or suspicious lytic or sclerotic lesion. IMPRESSION: 1. Findings consistent with colitis involving the sigmoid colon. 2. Fat stranding around the bladder. Correlate with urinalysis for cystitis. 3. Cholelithiasis. 4. Colonic diverticulosis. 5. Additional chronic findings as above. This document has been electronically signed by: Silvio Ramirez MD on 12/26/2024 02:34:23
[2024-12-25 23:18] VITALS: BP 138/76; PULSE 84; RESP 20; TEMP 36.6; O2SAT 95; BMI 46.2
[2024-12-25 23:40] LABS: MANUAL DIFF FLAG NO
[2024-12-25 23:41] LABS: Hematocrit 42.2 % (42.0-52.0); Hemoglobin 14.5 g/dl (14.0-18.0); Imm Gran Abs Auto 0.06 X10*3/uL (0.00-0.03); Imm Gran Pct Auto 0.4 % (0.0-0.4); Lymphocytes Absolute Auto 1.8 X10*3/uL (1.2-4.9); Mean Corpuscular HGB Conc 34.4 g/dl (31.0-36.0); Mean Corpuscular Hemoglobin 33.3 pg (27.0-33.0); Mean Corpuscular Volume 97.0 fL (80.0-98.0); NRBC Abs Auto 0.000 X10*3/uL (0.0-0.012); NRBC Pct Auto 0.0 /100WBC (0.0-0.2); Platelet Count 285 X10*3/uL (160-400); Red Blood Count 4.35 X10*6/uL (4.60-5.80); White Blood Count 13.6 X10*3/uL (4.8-10.8)
[2024-12-25 23:55] LABS: Alanine Aminotransferase 13 U/L (0-40); Albumin Level 4.1 g/dL (3.5-5.0); Alkaline Phosphatase 90 U/L (39-117); Anion Gap 13 (12-20); Aspartate Amino Transferase 23 U/L (5-37); Blood Urea Nitrogen 18 mg/dL (9-16); Calcium 9.3 mg/dL (8.4-10.2); Carbon Dioxide 21 mmol/L (22-29); Chloride 108 mmol/L (96-108); Creatinine Clr Calc Pharmacy 129.1; Estimated Glomerular Filt Rate > 60; Potassium 3.7 mmol/L (3.3-5.1); Sodium 138 mmol/L (135-145); Total Protein 7.0 g/dL (6.5-8.0)
[2024-12-26 00:37] LABS: OBS Int Ctl Valid YES
--- NOTE | 2024-12-26 00:37 | ED.GENADULT ---
HPI - General Adult General Chief complaint: Abdominal Pain Stated complaint: abd pain with bleeding Time Seen by Provider: 12/26/24 00:08 Source: patient Mode of arrival: ambulatory Limitations: no limitations History of Present Illness ED Provider: DR. Harris HPI narrative: 69-year-old male with PMHx paroxysmal AFib no anticoagulation, chronic diastolic CHF, chronic lymphedema, HTN, chronic hypoxic respiratory failure due to COPD on 3 L of home oxygen, JEFFRY on CPAP, Rh, hyp thyroidism, overactive bladder, morbid obesity, on Plavix and aspirin no AC therapy. Patient presented with bilateral lower abdominal pain for 2 days today noticed bright red blood in the stool with increased discomfort in the lower abdomen, no fever, no chills, no recent travel, no recent use of antibiotic, last colonoscopy was 7 years ago revealed diverticular disease and internal hemorrhoid as per patient, intra-abdominal surgery significant for appendectomy. Related Data Home Medications ?Medication ?Instructions ?Recorded ?Confirmed albuterol sulfate 90 mcg/actuation 2 puff PO Q6H PRN for wheezing 10/13/22 12/21/24 aerosol inhaler ammonium lactate 12 % lotion 1 appl topical BEDTIME 11/20/23 12/21/24 spironolactone 25 mg tablet 25 mg PO DAILY 03/14/24 12/21/24 methocarbamol 500 mg tablet 500 mg PO BEDTIME PRN 07/29/24 12/21/24 aspirin 81 mg tablet 81 mg PO DAILY 11/03/24 12/21/24 clopidogrel 75 mg tablet (Plavix) 75 mg PO DAILY 11/03/24 12/21/24 semaglutide (weight loss) 0.5 0.5 mg subcut QWEEK 11/17/24 12/21/24 mg/0.5 mL subcutaneous pen injector (Wegovy) Previous Rx's ?Medication ?Instructions ?Recorded walker #1 ea 05/22/23 Powered bariatric recliner #1 ea 12/11/23 ascorbic acid (vitamin C) 1,000 mg 1 g PO DAILY 90 days #90 tabs 05/27/24 tablet doxazosin 8 mg tablet 8 mg PO BEDTIME 90 days #90 tabs 05/27/24 finasteride 5 mg tablet 5 mg PO DAILY 90 days #90 tabs 05/27/24 methenamine hippurate 1 gram tablet 1 g PO DAILY 90 days #90 tabs 05/27/24 bumetanide 2 mg tablet 2 mg PO DAILY #90 tabs 05/28/24 docusate sodium 100 mg capsule 100 mg PO BID Constipation #180 06/01/24 (Colace) caps hospital bed #1 ea 06/01/24 amiodarone 200 mg tablet 200 mg PO DAILY 90 days #90 tabs 06/10/24 zolpidem 10 mg tablet 10 mg PO BEDTIME PRN sleep #30 tabs 06/10/24 duloxetine 60 mg capsule,delayed 60 mg PO DAILY #90 caps 10/05/24 release ropinirole 2 mg tablet 2 mg PO TID #270 tabs 10/11/24 pregabalin 150 mg capsule 150 mg PO TID 90 days #270 caps 10/25/24 Anoro Ellipta 62.5 mcg-25 1 inh PO DAILY copd 90 days #3 ea 11/08/24 mcg/actuation powder for inhalation (umeclidinium-vilanterol) atorvastatin 80 mg tablet 80 mg PO BEDTIME 90 days #90 tabs 12/15/24 Allergies Allergy/AdvReac Type Severity Reaction Status Date / Time No Known Allergies (No Known Allergy Verified 12/25/24 23:20 Allergies*) Review of Systems Review of Systems: All other systems are reviewed and are negative Constitutional: Reports as per HPI and Reports no additional constitutional complaints Eyes: Reports as per HPI and Reports no additional eye complaints Reports system reviewed and no additional complaints, except as documented Cardiovascular: Reports as per HPI and Reports no additional cardiovascular complaints Respiratory: Reports as per HPI and Reports no additional respiratory complaints Gastrointestinal: Reports as per HPI and Reports no additional gastrointestinal complaints Genitourinary: Reports no additional female genitourinary complaints Musculoskeletal: Reports no additional musculoskeletal complaints Skin/Breast: Reports system reviewed and no additional complaints, except as docu Psychiatric: Reports no additional psychiatric complaints Endocrine: Reports no additional endocrine complaints Hematologic/Lymphatic: Reports no additional hematologic/lymphatic complaints Allergic/Immunologic: Reports no additional allergic/immunologic complaints Reports system reviewed and no additional complaints, except as documented and Reports Abnormal speech present [facility] Past Medical History Medical History Presence of Watchman left atrial appendage closure device Visit for suture removal Rib pain on left side Post-COVID syndrome Traumatic perinephric hematoma of left kidney Chronic diastolic heart failure JEFFRY on CPAP Anemia Sepsis COPD (chronic obstructive pulmonary disease) Acute respiratory failure due to COVID-19 Community acquired pneumonia Viral sepsis Fatigue Acute on chronic diastolic CHF (congestive heart failure) COVID Morbid obesity Paroxysmal atrial fibrillation Testicular swelling Osteoarthritis of right knee Melanoma History of cardioversion Hereditary lymphedema Venous insufficiency Lymphedema COPD (chronic obstructive pulmonary disease) Sensory neuropathy COVID-19 Respiratory failure with hypoxia Restrictive lung disease MATUTE (dyspnea on exertion) Chronic cystitis Bladder outlet obstruction Restless leg syndrome Traumatic complete tear of right rotator cuff Injury of right rotator cuff History of diverticulitis History of umbilical hernia Surgical History S/P shoulder surgery Status post total left knee replacement Hx of colonoscopy History of appendectomy History of arthroscopy of left knee Family History Family History Father Arthritis Diabetes Mother Arthritis Kidney stones Family/Other Arthritis Sister No problems noted. Sister No problems noted. Son No problems noted. Social History Social History Household Members: Spouse Household Members Other:: Housing: [facility] Do you presently have visiting nurse or other home services: Yes Alcohol intake: current Alcohol intake frequency: holidays/special occasions only Alcohol type: beer Comment: Refused bed alarm due to alarm sensitivity when changing positions. 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 Blood pressure elevated. Heart rate normal. Respiratory rate normal. Temperature normal. Oxygen saturation normal. Appearance: Alert. Oriented X3. No acute distress. Head: Normal external exam. Normocephalic. Atraumatic. No Graves signs noted. No raccoon eyes noted Eyes: PERRLA. EOMI. Conjunctiva and sclera normal. Eyelids normal. ENT: TM's Normal. Pharynx normal. Uvula midline. Moist mucous membranes. No trismus noted. No drooling noted. No muffled voice noted. Neck: Normal inspection. Neck supple. FROM. No adenopathy. Thyroid Normal. No meningeal signs. No neck mass noted. CVS: Normal heart rate and rhythm. Heart sound normal. No murmurs noted. Pulses normal throughout. Respiratory: No respiratory distress. Painless inspiration. Breath sounds normal. No wheezes/rales/rhonchi noted. Chest nontender. No accessory muscle usage noted or decreased air movement noted. Abdomen: Obese, soft, bilateral lower abdominal tenderness, no rebound tenderness, no guarding, Bowel sounds normal in all 4 quadrants. No distention noted. No organomegaly noted. No visible injury noted. rectal exam: Normal inspection, normal tone, bloody stool in the vault, no palpable internal hemorrhoid, no visible external hemorrhoid , no anal fissure. Back: No CVA tenderness. Full range of motion noted. Skin: Skin warm and dry. Normal skin color. Normal skin turgor. No rashes/lesions/lacerations noted. Extremities: No lower extremity edema. Extremities exhibit normal range of motion. Extremities nontender. Neuro: Oriented X 3. Cranial nerve exam: II-XII are grossly intact No motor deficit. No sensory deficit. Reflexes normal. Course Reevaluation(s) Reevaluation #1: 69-year-old male came in for lower abdominal pain and rectal bleed. Labs are stable, otherwise hemodynamically stable no need for blood transfusion at the moment, still waiting for CT result. Signed out to Dr. Moyer To check CT and dispo accordingly. Time: 02:00 Medications Administered Discontinued Medications Generic Name Dose Route Start Last Admin Trade Name Freq PRN Reason Stop Dose Admin Iohexol 100 ml 12/26/24 01:05 12/26/24 01:05 Iohexol 350 Mg/Ml 100 Ml Infus..Btl IV 12/26/24 01:06 100 ml ONCE ONE Administration Morphine Sulfate 2 mg 12/26/24 00:20 12/26/24 01:31 Morphine Sulfate 4 Mg/Ml Cartridge IVPUSH 12/26/24 00:21 2 mg ONCE ONE Administration Protocol Ondansetron HCl 4 mg 12/26/24 01:41 12/26/24 02:08 Ondansetron Hcl 4 Mg/2 Ml Vial IVPUSH 12/26/24 01:42 4 mg ONCE ONE Administration Medical Decision Making Medical Decision Making [facility] Narrative: I received sign-out from my colleague Dr. Harris Patient's vitals are stable Labs are stable Patient has had 4 bowel movements, blood mixed with diarrhea CT scan shows colitis. Patient already received IV fluids, levofloxacin, metronidazole Stool panel still pending. I discussed the above-mentioned with Dr. Holloway from the Medicine team, patient being admitted. Patient agrees with plan Differential Diagnosis Differential Diagnoses: The differential diagnosis associated with the presentation includes ( colitis, diverticular disease, severe anemia, hemodynamic instability, electrolyte derangement.) Admission/Observation Consideration of admission/observation: Escalation of care including admission/observation considered Lab Data [facility] Lab Attestation statement: I reviewed the patient's lab results. 12/25/24 23:35 12/25/24 23:35 Labs: Lab Results 12/25/24 12/26/24 Range/Units 23:35 00:33 WBC 13.6 H (4.8-10.8) X10*3/uL RBC 4.35 L (4.60-5.80) X10*6/uL Hgb 14.5 (14.0-18.0) g/dl Hct 42.2 (42.0-52.0) % MCV 97.0 (80.0-98.0) fL MCH 33.3 H (27.0-33.0) pg MCHC 34.4 (31.0-36.0) g/dl RDW 13.2 (11.0-16.0) % Plt Count 285 (160-400) X10*3/uL MPV 10.0 (9.4-12.4) fL Immature Gran % (Auto) 0.4 (0.0-0.4) % Neut % (Auto) 77.3 H (45-73) % Lymph % (Auto) 12.8 L (20-40) % Hunt % (Auto) 7.6 (2-11) % Eos % (Auto) 1.5 (0-4) % Baso % (Auto) 0.4 (0-2) % Lymph # (Auto) 1.8 (1.2-4.9) X10*3/uL [place] # (Auto) 1.0 (0.1-1.2) X10*3/uL Eos # (Auto) 0.2 (0.0-0.4) X10*3/uL Baso # (Auto) 0.1 (0.0-0.2) X10*3/uL Abs Immat Gran (auto) 0.06 H (0.00-0.03) X10*3/uL Absolute Neuts (auto) 10.5 H (2.0-8.3) x10*3/uL Absolute Nucleated RBC 0.000 (0.0-0.012) X10*3/uL Nucleated RBC % (auto) 0.0 (0.0-0.2) /100WBC Sodium 138 (135-145) mmol/L Potassium 3.7 (3.3-5.1) mmol/L Chloride 108 (96-108) mmol/L Carbon Dioxide 21 L (22-29) mmol/L Anion Gap 13 (12-20) BUN 18 H (9-16) mg/dL Creatinine 0.95 (0.5-1.4) mg/dL Estim Creat Clear Calc 129.1 Estimated GFR > 60 Random Glucose 111 (60-115) mg/dL Calcium 9.3 (8.4-10.2) mg/dL Total Bilirubin 0.8 (0.0-1.0) mg/dL AST 23 (5-37) U/L ALT 13 (0-40) U/L Alkaline Phosphatase 90 (39-117) U/L Total Protein 7.0 (6.5-8.0) g/dL Albumin 4.1 (3.5-5.0) g/dL Stool Occult Blood POSITIVE (NEGATIVE) Independent Interpretation I performed an independent interpretation of an: CT Scan Radiology Impression Discussion of test interpretation with radiology: I have reviewed the radiologist's reading. Radiologist Impression: There is mild bibasilar atelectasis. There is cholelithiasis. Gallbladder appears otherwise normal. The liver, spleen, adrenal glands, and kidneys are unremarkable. There is mild scarring in the retroperitoneal fat in the previous region of the left perinephric hematoma. There is pericolonic fat stranding and mild wall thickening involving the sigmoid colon consistent with colitis. Evaluation for active GI bleeding is severely limited on the venous phase CT. There is colonic diverticulosis. Patient appears to be status post appendectomy. There is no free fluid or free air. The aorta is normal in diameter. There are no enlarged lymph nodes. There are small bilateral fat containing inguinal hernias. There is rectus diastasis with a shallow wide neck ventral hernia. The bladder is decompressed. There is apparent fat stranding around the bladder. There are degenerative changes throughout the lumbar spine. There is no acute fracture or suspicious lytic or sclerotic lesion. IMPRESSION: 1. Findings consistent with colitis involving the sigmoid colon. 2. Fat stranding around the bladder. Correlate with urinalysis for cystitis. 3. Cholelithiasis. 4. Colonic diverticulosis. 5. Additional chronic findings as above. Critical Care Time Critical Care Time Critical Care Time: Yes Total Critical Care Time: 60 Attestation: I have personally provided critical care time. Time includes review of lab data, radiology results, discussion with consultants, and monitoring for potential decompensation. Intervention performed as documented. Discharge Plan Discharge Clinical Impression: Colitis with rectal bleeding Patient Disposition: Admitted As Inpatient Print Language: Amharic
[2024-12-26 00:39] LABS: OBS1 POSITIVE (NEGATIVE)
--- NOTE | 2024-12-26 00:52 | PC.NURSE ---
69 yo male, A&Ox4, presenting with rectal bleeding x5+hours. He endorses the presence of 8/10 RLQ abdominal pain. He has been up to the nearby restroom x2 already independently although he does require physical assistance with post BM hygiene. He has been able to independently ambulate to and from the restroom with use of personal walking stick/cane and independently will remove/disconnect his O2 via NC and walk without it stating if it's just around the corner I'm fine . Pt knows to ring/call for assistance if there were ever any instances in which he felt SOB, dizzy, etc. He offers no complaints at this time, is conversing freely and aware of/agreeable to plan for IVP meds, CT scan and further eval.
[2024-12-26] MEDS: iohexoL 350 MG/ML 100 ML INFUS..BTL IV (01:05)
[2024-12-26 02:54] VITALS: BP 126/55; PULSE 77; RESP 18; TEMP 37.1; O2SAT 97
--- NOTE | 2024-12-26 03:31 | PM.IMHP ---
History of Present Illness Date of Service: 12/26/24 Attending physician on admission: Donald Holloway Chief Complaint: abd pain pt is a 69-year-old male with PMHx paroxysmal AFib no anticoagulation, chronic diastolic CHF, chronic lymphedema, HTN, chronic hypoxic respiratory failure due to COPD on 3 L of home oxygen, JEFFRY on CPAP, hypothyroidism, overactive bladder, morbid obesity, who presented to the ED due to lower abd pain with bloody diarrhea. assocaited nausea and vomiting. no hematemeis. reports there was a lot of blood yesterday when he had severe diarrhea. sx began 2 days ago. no fever, chills, sick contacts or travel. no upper respiratory or urinary sx. Review of Systems Constitutional: Constitutional: Denies body ache(s), Denies chills, Denies fatigue, Denies fever(s) and Denies headache(s) Eyes: Eyes: Denies change in vision ENT: Denies headache(s), Denies nasal discharge and Denies sore throat Cardiovascular: Cardiovascular: Denies chest pain, Denies rapid heart rate, Denies leg edema, Denies lightheadedness and Denies dyspnea Respiratory: Respiratory: Denies chest congestion, Denies cough, Denies dyspnea and Denies wheezing Gastrointestinal: Gastrointestinal: Reports as per HPI Genitourinary: Genitourinary: Denies dysuria, Denies flank pain and Denies urinary frequency Musculoskeletal: Musculoskeletal: Denies back pain Integumentary/Breasts: Skin/Breast: Denies rash Neurologic: Denies confusion and Denies headache(s) Psychiatric: Psychiatric: Denies confusion Endocrine: Endocrine: Denies fatigue Hematologic/Lymphatic: Hematologic/Lymphatic: Denies easy bruising Allergic/Immunologic: Allergic/Immunologic: Denies wheezing [facility] Medical History Morbid (severe) obesity due to excess calories Presence of Watchman left atrial appendage closure device Visit for suture removal Rib pain on left side Post-COVID syndrome Traumatic perinephric hematoma of left kidney Chronic diastolic heart failure JEFFRY on CPAP Anemia Sepsis COPD (chronic obstructive pulmonary disease) Acute respiratory failure due to COVID-19 Community acquired pneumonia Viral sepsis Fatigue Acute on chronic diastolic CHF (congestive heart failure) COVID Morbid obesity Paroxysmal atrial fibrillation Testicular swelling Osteoarthritis of right knee Melanoma History of cardioversion Hereditary lymphedema Venous insufficiency Lymphedema COPD (chronic obstructive pulmonary disease) Sensory neuropathy COVID-19 Respiratory failure with hypoxia Restrictive lung disease MATUTE (dyspnea on exertion) Chronic cystitis Bladder outlet obstruction Restless leg syndrome Traumatic complete tear of right rotator cuff Injury of right rotator cuff History of diverticulitis History of umbilical hernia Family History Father Arthritis Diabetes Mother Arthritis Kidney stones Family/Other Arthritis Sister No problems noted. Sister No problems noted. Son No problems noted. Surgical History S/P shoulder surgery Status post total left knee replacement Hx of colonoscopy History of appendectomy History of arthroscopy of left knee Social History Household Members: Spouse Household Members Other:: Housing: Condominium Do you presently have visiting nurse or other home services: Yes Alcohol intake: current Alcohol intake frequency: holidays/special occasions only Alcohol type: beer Comment: Refused bed alarm due to alarm sensitivity when changing positions. 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 Cognitive needs: No Hearing needs: No Vision needs: No Meds Allergies Allergy/AdvReac Type Severity Reaction Status Date / Time No Known Allergies (No Known Allergy Verified 12/25/24 23:20 Allergies*) Active Medications: Current Medications Levofloxacin (Levaquin) 500 mg in 100 mls @ 100 mls/hr IV ONCE ONE Stop: 12/26/24 04:05 Metronidazole (Flagyl) 500 mg in 100 mls @ 100 mls/hr IV ONCE ONE Stop: 12/26/24 04:05 Lactated Ringer's (Lr) 1,000 mls @ 999 mls/hr IV .Q1H1M MICHELLE Stop: 12/26/24 04:15 Home Medications ?Medication ?Instructions ?Recorded ?Confirmed ?Last Taken ?Type albuterol sulfate 90 mcg/actuation 2 puff PO Q6H PRN for wheezing 10/13/22 12/21/24 Unknown History aerosol inhaler ammonium lactate 12 % lotion 1 appl topical BEDTIME 11/20/23 12/21/24 03/24/24 History spironolactone 25 mg tablet 25 mg PO DAILY 03/14/24 12/21/24 04/10/24 08:00 History methocarbamol 500 mg tablet 500 mg PO BEDTIME PRN 07/29/24 12/21/24 Unknown History aspirin 81 mg tablet 81 mg PO DAILY 11/03/24 12/21/24 Unknown History clopidogrel 75 mg tablet (Plavix) 75 mg PO DAILY 11/03/24 12/21/24 Unknown History semaglutide (weight loss) 0.5 0.5 mg subcut QWEEK 11/17/24 12/21/24 Unknown History mg/0.5 mL subcutaneous pen injector (Wegovy) Physical Exam Vital Signs and Narrative: Vital Signs: Last Vital Signs Temp 98.7 F 12/26/24 02:54 Pulse 77 12/26/24 02:54 Resp 18 12/26/24 02:54 BP 126/55 L 12/26/24 02:54 Pulse Ox 97 12/26/24 02:54 O2 Del Method Nasal Cannula 12/26/24 02:54 O2 Flow Rate 3 12/26/24 02:54 Oxygen Flow Rate 3 12/25/24 23:18 BMI result Body Mass Index 46.2 General: AOx3, no acute distress Resp: CTA bilaterally CVS: S1, S2, RRR GI: +BS, RLQ and LLQ tenderness, no distention Skin: Warm, dry Neuro: Cranial nerves II-XII grossly intact bilaterally. Motor grossly intact bilaterally Extremities: No pitting edema Psych: Appropriate affect Const: General: No confusion Orientation/consciousness: No confusion Neuro: General: No confusion Results Labs 12/26/24 05:11 12/26/24 05:11 Labs: Laboratory Results - last 24 hr 12/25/24 12/26/24 23:35 00:33 MCV 97.0 MCH 33.3 H MCHC 34.4 RDW 13.2 Plt Count 285 MPV 10.0 Immature Gran % (Auto) 0.4 Neut % (Auto) 77.3 H Lymph % (Auto) 12.8 L [place] % (Auto) 7.6 Eos % (Auto) 1.5 Baso % (Auto) 0.4 Lymph # (Auto) 1.8 [place] # (Auto) 1.0 Eos # (Auto) 0.2 Baso # (Auto) 0.1 Abs Immat Gran (auto) 0.06 H Absolute Neuts (auto) 10.5 H Absolute Nucleated RBC 0.000 Nucleated RBC % (auto) 0.0 Anion Gap 13 Estim Creat Clear Calc 129.1 Estimated GFR > 60 Random Glucose 111 Calcium 9.3 Total Bilirubin 0.8 AST 23 ALT 13 Alkaline Phosphatase 90 Total Protein 7.0 Albumin 4.1 Stool Occult Blood POSITIVE Assessment and Plan (1) Colitis with rectal bleeding: Status: Acute (2) Morbid (severe) obesity due to excess calories: Status: Acute Plan 69-year-old male with PMHx paroxysmal AFib no anticoagulation, chronic diastolic CHF, chronic lymphedema, HTN, chronic hypoxic respiratory failure due to COPD on 3 L of home oxygen, JEFFRY on CPAP, hypothyroidism, overactive bladder, morbid obesity, on Plavix and aspirin no AC therapy who presented to the ED due to lower abd pain with bloody diarrhea. colitis with rectal bleeding - levaquin and flagyl - CBC normal, monitor - stool studies pending - GI consult chronic diastolic HF, no acute exacerbation - continue home meds Paroxysmal AFib - Continue amiodarone HTN - BP soft, hold home meds COPD, no acute exacerbation - inhalers PRN JEFFRY - CPAP at bedtime Morbid obesity - Weight loss recommended med rec pending full code DVT prophylaxis: SCDs due to rectal bleeding Pt with colitis with rectal bleeding, requiring admission for at least 2 midnights stay for IV abx and GI consult. Quality Stroke Does the patient have a stroke diagnosis?: No VTE Prior VTE?: No VTE Risk Level:: Medical - moderate - high VTE Device Contraindication: Treatment Not Indicated VTE Drug Contraindication: N/A - Med Ordered
[2024-12-26] MEDS: Lactated Ringers 1,000 ML 999 ML IV (03:54)
[2024-12-26] MEDS: metroNIDAZOLE/NS 500 MG/100 ML PIGGYBACK 100 MG IV ×3 (04:48→18:17)
--- NOTE | 2024-12-26 05:00 | PC.NURSE ---
Pt belongings list completed by EDT, pt found to have a vape pen and per security the pen was secured and placed in security for contraband purposes. Pt expressed his frustration surrounding having the pen in security and not having access to it regularly. The pt states that he uses his cannabis vape pen to assist with his arthritic pain and states that if he is unable to get the vape pen back he will leave stating welp discharge me now then . Pt encouraged to discuss his concerns regarding his arthritic pain and use of his vape pen with hospitalist team. RN attempted to provide education to the patient regarding hospital policy as it referrs to contraband and vape pens.
[2024-12-26 05:18] LABS: MANUAL DIFF FLAG NO
[2024-12-26 05:31] LABS: Hematocrit 39.3 % (42.0-52.0); Hemoglobin 13.3 g/dl (14.0-18.0); Imm Gran Abs Auto 0.03 X10*3/uL (0.00-0.03); Imm Gran Pct Auto 0.3 % (0.0-0.4); Lymphocytes Absolute Auto 1.6 X10*3/uL (1.2-4.9); Mean Corpuscular HGB Conc 33.8 g/dl (31.0-36.0); Mean Corpuscular Hemoglobin 33.3 pg (27.0-33.0); Mean Corpuscular Volume 98.5 fL (80.0-98.0); NRBC Abs Auto 0.000 X10*3/uL (0.0-0.012); NRBC Pct Auto 0.0 /100WBC (0.0-0.2); Platelet Count 259 X10*3/uL (160-400); Red Blood Count 3.99 X10*6/uL (4.60-5.80); White Blood Count 10.3 X10*3/uL (4.8-10.8)
[2024-12-26 05:35] LABS: Anion Gap 12 (12-20); Blood Urea Nitrogen 16 mg/dL (9-16); Calcium 8.7 mg/dL (8.4-10.2); Carbon Dioxide 24 mmol/L (22-29); Chloride 107 mmol/L (96-108); Creatinine Clr Calc Pharmacy 141.0; Estimated Glomerular Filt Rate > 60; Potassium 3.8 mmol/L (3.3-5.1); Sodium 139 mmol/L (135-145)
[2024-12-26 06:09] VITALS: BP 116/56; PULSE 72; RESP 18; O2SAT 99
--- NOTE | 2024-12-26 07:54 | PM.GICN ---
History of Present Illness Data of Consult Service Date: 12/26/24 Requesting physician: Coreen Johns Primary Care Provider: Diego Augustine [facility] HPI Reason for consult: Rectal bleeding 69 YM with paroxysmal AFib no anticoagulation, chronic diastolic CHF, chronic lymphedema, HTN, chronic hypoxic respiratory failure due to COPD on 3 L of home oxygen, JEFFRY on CPAP, hypothyroidism, overactive bladder, morbid obesity seen at [facility] on 12/26/24 with lower abd pain with bloody diarrhea, nausea and vomiting. no hematemeis. History obtained from the patient and his who was at the bedside. Pt reported sudden onset of lower abdominal pain, diarrhea with bloody stools starting around 6:30 pm on 12/25/24. This was followed by multiple episodes of rectal bleeding every 5-10 minutes (a total of 30 to 40 episodes) This am he is having BRBPR almost every hour. He also notes pain and pressure in the lower abdomen with a constant 5/10 lower abdominal pain which increases to 7/10 before a BM and decreases after he passes the stool He also noted sweating, dizziness and a few episodes of vomiting yesterday containing partially digested food. Sx began 2 days ago. no fever, chills, sick contacts or travel. no upper respiratory or urinary sx. Pt reports having 2 colonoscopies in the past by Dr. Florence - 1st at age 52 yrs and 2nd at age 62 yrs. He was told he had diverticulosis and no polyps were detected. Repeat colonoscopy was advised at age 72. Patient admits to smoking 1 pack per day of cigarettes for 30 years and quit 12 years ago. 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 12/26/[address] SCAN SHOWED: 1. Findings consistent with colitis involving the sigmoid colon. 2. Fat stranding around the bladder. Correlate with urinalysis for cystitis. 3. Cholelithiasis. 4. Colonic diverticulosis. 5. Additional chronic findings as above. Review of Systems Review of Systems: Yes all other systems are reviewed and are negative [facility] Past Medical History Medical History (Updated 12/30/24 @ 13:01 by Yolnada Rivera MD) Morbid obesity Morbid (severe) obesity due to excess calories Presence of Watchman left atrial appendage closure device Visit for suture removal Rib pain on left side Post-COVID syndrome Traumatic perinephric hematoma of left kidney Chronic diastolic heart failure JEFFRY on CPAP Anemia Sepsis COPD (chronic obstructive pulmonary disease) Acute respiratory failure due to COVID-19 Community acquired pneumonia Viral sepsis Fatigue Acute on chronic diastolic CHF (congestive heart failure) COVID Paroxysmal atrial fibrillation Testicular swelling Osteoarthritis of right knee Melanoma History of cardioversion Hereditary lymphedema Venous insufficiency Lymphedema COPD (chronic obstructive pulmonary disease) Sensory neuropathy COVID-19 Respiratory failure with hypoxia Restrictive lung disease MATUTE (dyspnea on exertion) Chronic cystitis Bladder outlet obstruction Restless leg syndrome Traumatic complete tear of right rotator cuff Injury of right rotator cuff History of diverticulitis History of umbilical hernia Family History Family History Father Arthritis Diabetes Mother Arthritis Kidney stones Family/Other Arthritis Sister No problems noted. Sister No problems noted. Son No problems noted. Surgical History Surgical History S/P shoulder surgery Status post total left knee replacement Hx of colonoscopy History of appendectomy History of arthroscopy of left knee Social History Social History Household Members: Spouse Household Members Other:: Housing: Condominium Do you presently have visiting nurse or other home services: No Alcohol intake: current Alcohol intake frequency: holidays/special occasions only Alcohol type: beer Comment: Refused bed alarm due to alarm sensitivity when changing positions. 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[employer]/ [employer] Cognitive needs: No Hearing needs: No Vision needs: No Meds Allergies Allergy/AdvReac Type Severity Reaction Status Date / Time No Known Allergies (No Known Allergy Verified 12/25/24 23:20 Allergies*) Active Medications: Current Medications Acetaminophen (Acetaminophen 325 Mg Tablet) 650 mg PO Q6H PRN PRN Reason: Pain, Mild 1-3,fever,headache Calcium Carbonate (Calcium Carbonate 750 Mg Tab.Chew) 750 mg PO Q4H PRN PRN Reason: Heartburn Hydromorphone HCl (Hydromorphone Hcl 1 Mg/Ml Syringe) 0.5 mg IVPUSH Q4H PRN; Protocol PRN Reason: Pain, Severe (Pain Scale 7-10) Metronidazole (Flagyl) 500 mg in 100 mls @ 100 mls/hr IV Q8H MICHELLE Levofloxacin (Levaquin) 500 mg in 100 mls @ 100 mls/hr IV Q24H MICHELLE Magnesium Hydroxide (Milk Of Magnesia 30 Ml Oral.Susp) 30 ml PO DAILY PRN PRN Reason: Constipation Melatonin (Melatonin 3 Mg Tablet) 6 mg PO BEDTIME PRN PRN Reason: Insomnia Oxycodone HCl (Oxycodone Hcl Immed Release 5 Mg Tablet) 5 mg PO Q6H PRN PRN Reason: Pain, Moderate(Pain Scale 4-6) Pregabalin (Pregabalin 150 Mg Capsule) 150 mg PO TID MICHELLE Sodium Chloride (0.9 % Sodium Chloride Flush 3 Ml Syringe) 3 ml IVFLUSH QSHIFT [facility] Home Medications ?Medication ?Instructions ?Recorded ?Confirmed ?Last Taken ?Type albuterol sulfate 90 mcg/actuation 2 puff PO Q6H PRN for wheezing 10/13/22 12/31/24 Unknown History aerosol inhaler ammonium lactate 12 % lotion 1 appl topical BEDTIME 11/20/23 12/31/24 03/24/24 History spironolactone 25 mg tablet 25 mg PO BID 03/14/24 12/31/24 12/25/24 History methocarbamol 500 mg tablet 500 mg PO BEDTIME PRN Muscle Pain 07/29/24 12/31/24 Unknown History clopidogrel 75 mg tablet (Plavix) 75 mg PO DAILY 11/03/24 12/31/24 12/25/24 History semaglutide (weight loss) 0.5 0.5 mg subcut FR@0900 11/17/24 12/31/24 Unknown History mg/0.5 mL subcutaneous pen injector (Jagovy) aspirin 81 mg tablet,delayed 81 mg PO DAILY 12/26/24 12/31/24 12/25/24 History release cholecalciferol (vitamin D3) 1,250 1,250 mcg PO FR@0900 12/26/24 12/31/24 Unknown History mcg (50,000 unit) capsule Physical Exam Vital Signs: Vital Signs: Last Vital Signs Temp 98.7 F 12/26/24 02:54 Pulse 72 12/26/24 06:09 Resp 18 12/26/24 06:09 BP 116/56 L 12/26/24 06:09 Pulse Ox 99 12/26/24 06:09 O2 Del Method Nasal Cannula 12/26/24 06:09 O2 Flow Rate 2 12/26/24 06:09 Oxygen Flow Rate 3 12/25/24 23:18 BMI result Body Mass Index 46.2 Const: General: no acute distress Nutritional Appearance: obese Orientation/consciousness: patient oriented x3 HEENT: Head: Yes normal to inspection Ears: hearing grossly normal bilaterally Eyes: Sclerae: sclerae normal Pupils: Equal, round and reactive pupils present Neck: Neck: Yes normal visual inspection Chest: Chest palpation & inspection: normal inspection of the chest Resp: Effort & Inspection: normal respiratory effort Auscultation: clear to auscultation bilaterally Cardio: Palpation: normal PMI Rate: regular rate Rhythm: regular rhythm Heart sounds: S1 normal heart sound present, S2 normal heart sound present and no murmurs GI: Palpation (GI): Soft to palpation, Tenderness to palpation present (GI) (Moderate left lower quadrant/lower abdominal tenderness without rebound) and No hepatosplenomegaly present Auscultation: normal bowel sounds Rectal Exam - Male: Yes deferred Skin: General skin exam: no rashes or lesions noted Neuro: General: patient oriented x3, gait normal and moves all extremities Cranial nerves: Yes Equal, round and reactive pupils present Psych: Appearance: grossly normal Mental Status: mental status grossly normal Results Labs 12/30/24 05:25 12/30/24 05:25 Labs: Short CBC 12/25/24 12/26/24 Range/Units 23:35 05:11 WBC 13.6 H 10.3 (4.8-10.8) X10*3/uL Hgb 14.5 13.3 L (14.0-18.0) g/dl Hct 42.2 39.3 L (42.0-52.0) % Plt Count 285 259 (160-400) X10*3/uL BMP 12/25/24 12/26/24 23:35 05:11 Sodium 138 139 Potassium 3.7 3.8 Chloride 108 107 Carbon Dioxide 21 L 24 BUN 18 H 16 Creatinine 0.95 0.87 Calcium 9.3 8.7 D Liver Function 12/25/24 Range/Units 23:35 Total Bilirubin 0.8 (0.0-1.0) mg/dL AST 23 (5-37) U/L ALT 13 (0-40) U/L Alkaline Phosphatase 90 (39-117) U/L Albumin 4.1 (3.5-5.0) g/dL Assessment and Plan (1) Colitis with rectal bleeding: Status: Acute Plan 69 YM with paroxysmal AFib no anticoagulation, chronic diastolic CHF, chronic lymphedema, HTN, chronic hypoxic respiratory failure due to COPD on 3 L of home oxygen, JEFFRY on CPAP, hypothyroidism, overactive bladder, morbid obesity admitted to [facility] [place] [place] [facility] on 12/26/24 with lower abd pain with bloody diarrhea, nausea and vomiting. no hematemeis. Pt reports having 2 colonoscopies in the past by Dr. Florence - 1st at age 52 yrs and 2nd at age 62 yrs. He was told he had diverticulosis and no polyps were detected. Repeat colonoscopy was advised at age 72. CT scan showed colitis involving the sigmoid colon - likely ischemic or infectious colitis. IBD is unlikely given acute onset of symptoms. H & H has been stable RECOMMENDATIONS: 1. Agree with IV pain medications and antibiotics 2. Follow CBC daily 3. Pt scheduled for a Flex Sig on 12/27/24 pending clearance by anesthesia. Flexible sigmoidoscopy procedure and potential complications including bleeding, perforation and reaction to anesthetic were reviewed with the patient and his . Procedures Date of Service Date of Service: 01/04/25
[2024-12-26 08:56] VITALS: BP 118/54; PULSE 75; RESP 19; O2SAT 95
[2024-12-26] MEDS: 0.9 % Sodium Chloride Flush 3 ML SYRINGE IVFLUSH ×3 (09:16→20:30)
--- NOTE | 2024-12-26 09:26 | PHA.MEDREC ---
Pharmacy Consult ? Medication Reconciliation Pharmacy has completed the medication reconciliation.Med rec complete, spoke with patient and compared with pharmacy claims history
[2024-12-26 12:37] LABS: E. coli EAEC Not Detected (Not Detect.); E. coli EPEC Not Detected (Not Detect.); E. coli ETEC Not Detected (Not Detect.); E. coli STEC Not Detected (Not Detect.); Shigella sp./EIEC Not Detected (Not Detect.)
[2024-12-26 13:08] LABS: Hematocrit 39.5 % (42.0-52.0); Hemoglobin 13.4 g/dl (14.0-18.0)
--- NOTE | 2024-12-26 13:24 | PM.EVENT ---
Event Note Date of Service: 12/26/24 Event Note: 69-year-old male with PMHx paroxysmal AFib no anticoagulation, chronic diastolic CHF, chronic lymphedema, HTN, chronic hypoxic respiratory failure due to COPD on 3 L of home oxygen, JEFFRY on CPAP, hypothyroidism, overactive bladder, morbid obesity, on Plavix and aspirin no AC therapy who presented to the ED due to lower abd pain with bloody diarrhea. Colitis with rectal bleeding levaquin and flagyl CBC normal, monitor stool studies pending GI consult> Flex sig tomorrow, NPO after midnight hold asa and statin Chronic diastolic HF, no acute exacerbation continue home meds Paroxysmal AFib Continue amiodarone HTN BP soft, hold home meds COPD, no acute exacerbation inhalers PRN JEFFRY CPAP at bedtime Morbid obesity Weight loss recommended full code DVT prophylaxis: SCDs due to rectal bleeding Pt with colitis with rectal bleeding, requiring admission for at least 2 midnights stay for IV abx and GI consult. Time Spent With Patient Time: Total time managing care of this patient today ____ minutes.
--- NOTE | 2024-12-26 14:08 | MHC.CM.PN ---
CM attempted to meet with pt. twice, he was receiving care, CM to return at a later time
--- NOTE | 2024-12-26 14:48 | HO.NURTONUR ---
Pt from home in with RLQ abdominal pain. He noticed BRB per rectum w/diarrhea. Occult positive. Found to have colitis. Treated with Flagyl and Levoquin. Pt has had 4-5 small liquid bloody stools this am. Repeat H+H with slight increase. type and screen sent, pt with L a/c angio and new U/S guided IV. Hard Stick. Pt has lymph edema and chronic pain, Provider just entered now orders not yet verified. Pt on 3L home O2 intermittently. Noted here to be ambulating to on R/A. He uses a cane for ambulation with steady gait. Sats remain stable but pt demonstrates increased WOB and had an episode of lightheadedness. Pt encouraged to use O2 with exertion and if he wants to take it off to do so during periods of rest. He has JEFFRY and uses CPAP at night. He is alert and oriented x4, takes pills whole.
[2024-12-26 15:33] VITALS: BMI 48.2
[2024-12-26 15:55] VITALS: BP 139/60; PULSE 78; RESP 18; TEMP 36.3; O2SAT 99
--- NOTE | 2024-12-26 15:58 | MHC.CM.PN ---
PT REPORTS HE LIVES WITH HIS AND IS INDEPENDENT WITH CARE HE USES A WALKING STICK, WALKER (PRN), A CPAP, AND O2 WITH EXERTION PCP: DESIREE BARTLETT HCP ON FILE IMM DELIVERED DCP: HOME VIA FAMILY TRANSPORT
[2024-12-26 20:00] VITALS: BP 138/66; PULSE 83; RESP 18; TEMP 36.2; O2SAT 96
[2024-12-27] MEDS: metroNIDAZOLE/NS 500 MG/100 ML PIGGYBACK 100 MG IV ×3 (02:50→18:00)
[2024-12-27 04:00] VITALS: BP 118/56; PULSE 74; RESP 18; TEMP 36.5; O2SAT 92
[2024-12-27 05:37] LABS: MANUAL DIFF FLAG NO
[2024-12-27 05:42] LABS: Hematocrit 39.5 % (42.0-52.0); Hemoglobin 13.1 g/dl (14.0-18.0); Imm Gran Abs Auto 0.05 X10*3/uL (0.00-0.03); Imm Gran Pct Auto 0.4 % (0.0-0.4); Lymphocytes Absolute Auto 1.6 X10*3/uL (1.2-4.9); Mean Corpuscular HGB Conc 33.2 g/dl (31.0-36.0); Mean Corpuscular Hemoglobin 33.1 pg (27.0-33.0); Mean Corpuscular Volume 99.7 fL (80.0-98.0); NRBC Abs Auto 0.000 X10*3/uL (0.0-0.012); NRBC Pct Auto 0.0 /100WBC (0.0-0.2); Platelet Count 241 X10*3/uL (160-400); Red Blood Count 3.96 X10*6/uL (4.60-5.80); White Blood Count 11.5 X10*3/uL (4.8-10.8)
[2024-12-27 05:54] LABS: Anion Gap 11 (12-20); Blood Urea Nitrogen 10 mg/dL (9-16); Calcium 8.6 mg/dL (8.4-10.2); Carbon Dioxide 24 mmol/L (22-29); Chloride 108 mmol/L (96-108); Creatinine Clr Calc Pharmacy 147.8; Estimated Glomerular Filt Rate > 60; Potassium 3.8 mmol/L (3.3-5.1); Sodium 139 mmol/L (135-145)
[2024-12-27 08:00] VITALS: BP 107/53; PULSE 67; RESP 18; TEMP 36.1; O2SAT 96
[2024-12-27] MEDS: 0.9 % Sodium Chloride Flush 3 ML SYRINGE IVFLUSH ×2 (08:05→20:57)
--- NOTE | 2024-12-27 09:07 | HO.ANESPROP2 ---
Documented by User: Susan Durand NP 12/27/24 12:49 HPI - Anesthesia Eval Consult details Narrative: 69 yr old male for flexible sigmoidoscopy BMI 48 In usual state of health, active, walking, yard work until 12/25, felt nausea, had diarrhea. No CP or SOB. S/P watchman at [facility] [place] 08/2024, on plavix Chronic diastolic failure: LE edema is minimal per pt COPD: on O2 3 liters, no acute respiratory symptoms, breathing at baseline without any coughing, wheezing or SOB. JEFFRY: on CPAP Anesthesia Pre-Procedure Meds Is the patient on any of the following meds?: GLP1/DPP4 (12/24/24) PMFSH Active Problems Active Problems: All Active Problems Morbid (severe) obesity due to excess calories (Acute) Rectal bleeding (Acute) Colitis with rectal bleeding (Acute) Presence of Watchman left atrial appendage closure device (Acute) Visit for suture removal (Acute) Skin tag (Acute) Chronic pain syndrome (Acute) Vascular insufficiency (Acute) Chronic diastolic heart failure (Acute) JEFFRY on CPAP (Acute) Perinephric hematoma (Acute) Morbid obesity with BMI of 50.0-59.9, adult (Chronic) Insomnia (Acute) COPD (chronic obstructive pulmonary disease) (Acute) Breast tenderness in male (Acute) Weakness of both lower limbs (Acute) Osteoarthritis of fingers of both hands (Acute) Stiffness of joints of both hands (Acute) Osteoarthritis of right knee (Acute) Chronic lower back pain (Acute) Encounter for annual wellness visit (AWV) in Medicare patient (Acute) On amiodarone therapy (Acute) Osteoarthritis of hands, bilateral (Acute) Polyarthralgia (Acute) A-fib (Acute) Shortness of breath (Acute) Chest pain (Acute) Microscopic hematuria (Acute) Urine discoloration (Acute) Palpitations (Acute) Overactive bladder (Acute) Foot pain (Acute) Elevated TSH (Acute) Rotator cuff tear (Acute) Wounds, multiple open, lower extremity (Acute) Left shoulder pain (Acute) Neuropathy (Acute) Sprain of left shoulder (Acute) Constipation (Acute) Spondylosis of thoracic spine (Acute) Myofascial pain syndrome (Acute) Hepatitis C antibody positive in blood (Acute) Elevated LFTs (Acute) Myofascial pain syndrome (Acute) Elevated bilirubin (Acute) Low TSH level (Acute) Elevated alkaline phosphatase level (Acute) Left knee pain (Acute) Left ankle pain (Acute) Foot pain (Acute) Screening PSA (prostate specific antigen) (Acute) Bilateral lower extremity edema (Acute) Sinus tachycardia (Acute) Varicose veins of left lower extremity with inflammation (Acute) Physical exam (Acute) Lymphedema (Acute) Restrictive lung disease (Acute) Chronic cystitis (Acute) Bladder outlet obstruction (Acute) MATUTE (dyspnea on exertion) (Acute) Past Medical History Medical History Morbid (severe) obesity due to excess calories Presence of Watchman left atrial appendage closure device Visit for suture removal Rib pain on left side Post-COVID syndrome Traumatic perinephric hematoma of left kidney Chronic diastolic heart failure JEFFRY on CPAP Anemia Sepsis COPD (chronic obstructive pulmonary disease) Acute respiratory failure due to COVID-19 Community acquired pneumonia Viral sepsis Fatigue Acute on chronic diastolic CHF (congestive heart failure) COVID Morbid obesity Paroxysmal atrial fibrillation Testicular swelling Osteoarthritis of right knee Melanoma History of cardioversion Hereditary lymphedema Venous insufficiency Lymphedema COPD (chronic obstructive pulmonary disease) Sensory neuropathy COVID-19 Respiratory failure with hypoxia Restrictive lung disease MATUTE (dyspnea on exertion) Chronic cystitis Bladder outlet obstruction Restless leg syndrome Traumatic complete tear of right rotator cuff Injury of right rotator cuff History of diverticulitis History of umbilical hernia Family History Family History Father Arthritis Diabetes Mother Arthritis Kidney stones Family/Other Arthritis Sister No problems noted. Sister No problems noted. Son No problems noted. Family history of problems with anesthesia: No Surgical History Surgical History S/P shoulder surgery Status post total left knee replacement Hx of colonoscopy History of appendectomy History of arthroscopy of left knee History of Problems with Anesthesia: No Social History Social History Household Members: Spouse Household Members Other:: Housing: Condominium Do you presently have visiting nurse or other home services: No Alcohol intake: current Alcohol intake frequency: holidays/special occasions only Alcohol type: beer Comment: Refused bed alarm due to alarm sensitivity when changing positions. Patient Tobacco Use Status: Former Tobacco user Tobacco use type: Cigarette Cigarette Packs Per Day: 1 Years Smoked: 30 years Smoked in Last 30 Days: No e-Cigarette/Vaping Use: Never Used Second Hand Smoke Exposure: No Use of substances other than those prescribed or required for medical reasons: No Substance Use Type: Marijuana Currently Displaying Signs/Symptoms of Drug Intoxication Withdrawal: No Have you been hit, kicked, punched, or otherwise hurt by someone within the past year? If so, by whom?: No Are you DNR?: No Advance Directives: Yes Advance Directives on File: Yes Advance Directives Date on File: 02/24/24 Do you have a plan to hurt others: No Plan service: No Current occupational status: retired Current occupation: [employer]/ rt Cognitive needs: No Hearing needs: No Vision needs: No Meds Allergies Allergy/AdvReac Type Severity Reaction Status Date / Time No Known Allergies (No Known Allergy Verified 12/25/24 23:20 Allergies*) Active Medications: Current Medications Acetaminophen (Acetaminophen 325 Mg Tablet) 650 mg PO Q6H PRN PRN Reason: Pain, Mild 1-3,fever,headache Amiodarone HCl (Amiodarone Hcl 200 Mg Tablet) 200 mg PO DAILY PENDING SALE TO [facility] Last Admin: 12/27/24 08:04 Dose: Not Given Ascorbic Acid (Ascorbic Acid 500 Mg Tablet) 1,000 mg PO DAILY PENDING SALE TO [facility] Last Admin: 12/27/24 08:04 Dose: 1,000 mg Atorvastatin Calcium (Atorvastatin Calcium 80 Mg Tablet) 80 mg PO BEDTIME PENDING SALE TO [facility] Last Admin: 12/26/24 20:29 Dose: 80 mg Calcium Carbonate (Calcium Carbonate 750 Mg Tab.Chew) 750 mg PO Q4H PRN PRN Reason: Heartburn Docusate Sodium (Docusate Sodium 100 Mg Capsule) 100 mg PO BID PENDING SALE TO [facility] Last Admin: 12/27/24 08:06 Dose: Not Given Doxazosin Mesylate (Doxazosin Mesylate 2 Mg Tablet) 8 mg PO BEDTIME PENDING SALE TO [facility]; Protocol Last Admin: 12/26/24 20:29 Dose: 8 mg Duloxetine HCl (Duloxetine Hcl 60 Mg Capsule.Dr) 60 mg PO DAILY PENDING SALE TO [facility] Last Admin: 12/27/24 08:04 Dose: 60 mg Hydromorphone HCl (Hydromorphone Hcl 1 Mg/Ml Syringe) 0.5 mg IVPUSH Q4H PRN; Protocol PRN Reason: Pain, Severe (Pain Scale 7-10) Last Admin: 12/27/24 08:03 Dose: 0.5 mg Metronidazole (Flagyl) 500 mg in 100 mls @ 100 mls/hr IV Q8H PENDING SALE TO [facility] Last Infusion: 12/27/24 03:50 Dose: Infused Levofloxacin (Levaquin) 500 mg in 100 mls @ 100 mls/hr IV Q24H PENDING SALE TO [facility] Last Infusion: 12/27/24 08:11 Dose: Infused Magnesium Hydroxide (Milk Of Magnesia 30 Ml Oral.Susp) 30 ml PO DAILY PRN PRN Reason: Constipation Melatonin (Melatonin 3 Mg Tablet) 6 mg PO BEDTIME PRN PRN Reason: Insomnia Methocarbamol (Methocarbamol 500 Mg Tablet) 500 mg PO BEDTIME PRN PRN Reason: Muscle Pain Oxycodone HCl (Oxycodone Hcl Immed Release 5 Mg Tablet) 5 mg PO Q6H PRN PRN Reason: Pain, Moderate(Pain Scale 4-6) Pregabalin (Pregabalin 150 Mg Capsule) 150 mg PO TID PENDING SALE TO [facility] Last Admin: 12/27/24 08:04 Dose: 150 mg Ropinirole HCl (Ropinirole Hcl 2 Mg Tablet) 2 mg PO TID PENDING SALE TO [facility] Last Admin: 12/27/24 08:04 Dose: 2 mg Sodium Biphosphate/Sodium Phosphate (Sodium Phosphate,Haywood-Dibasic 133 Ml Enema) 133 ml NV ONCE PRN PRN Reason: Pre-Op Surgical Prep Sodium Biphosphate/Sodium Phosphate (Sodium Phosphate,Haywood-Dibasic 133 Ml Enema) 133 ml NV ONCE PRN PRN Reason: Pre-Op Surgical Prep Sodium Chloride (0.9 % Sodium Chloride Flush 3 Ml Syringe) 3 ml IVFLUSH QSHIFT PENDING SALE TO [facility] Last Admin: 12/27/24 08:05 Dose: 3 ml Zolpidem Tartrate (Zolpidem Tartrate 5 Mg Tablet) 10 mg PO BEDTIME PRN PRN Reason: Sleep Home Medications ?Medication ?Instructions ?Recorded ?Confirmed ?Last Taken ?Type albuterol sulfate 90 mcg/actuation 2 puff PO Q6H PRN for wheezing 10/13/22 12/26/24 Unknown History aerosol inhaler ammonium lactate 12 % lotion 1 appl topical BEDTIME 11/20/23 12/26/24 03/24/24 History spironolactone 25 mg tablet 25 mg PO BID 03/14/24 12/26/24 12/25/24 History methocarbamol 500 mg tablet 500 mg PO BEDTIME PRN Muscle Pain 07/29/24 12/26/24 Unknown History clopidogrel 75 mg tablet (Plavix) 75 mg PO DAILY 11/03/24 12/26/24 12/25/24 History semaglutide (weight loss) 0.5 0.5 mg subcut FR@89911/17/24 12/26/24 Unknown History mg/0.5 mL subcutaneous pen injector (Wegovy) aspirin 81 mg tablet,delayed 81 mg PO DAILY 12/26/24 12/26/24 12/25/24 History release cholecalciferol (vitamin D3) 1,250 1,250 mcg PO FR@89912/26/24 12/26/24 Unknown History mcg (50,000 unit) capsule Exam Height,Weight and Vital Signs: Height 6 ft 4 in Weight 179.6 kg Last Vital Signs Temp 97.0 F 12/27/24 08:00 Pulse 67 12/27/24 08:00 Resp 18 12/27/24 08:00 BP 107/53 L 12/27/24 08:00 Pulse Ox 96 12/27/24 08:00 O2 Del Method Nasal Cannula 12/27/24 08:00 O2 Flow Rate 2.0 12/27/24 08:00 Oxygen Flow Rate 3 12/25/24 23:18 Pertinent Lab Results Pertinent Lab Results: Laboratory Tests 12/25/24 12/26/24 12/26/24 23:35 00:33 03:48 WBC 13.6 H RBC 4.35 L Hgb 14.5 Hct 42.2 MCV 97.0 MCH 33.3 H MCHC 34.4 RDW 13.2 Plt Count 285 MPV 10.0 Immature Gran % (Auto) 0.4 Neut % (Auto) 77.3 H Lymph % (Auto) 12.8 L Haywood % (Auto) 7.6 Eos % (Auto) 1.5 Baso % (Auto) 0.4 Lymph # (Auto) 1.8 Haywood # (Auto) 1.0 Eos # (Auto) 0.2 Baso # (Auto) 0.1 Abs Immat Gran (auto) 0.06 H Absolute Neuts (auto) 10.5 H Absolute Nucleated RBC 0.000 Nucleated RBC % (auto) 0.0 Sodium 138 Potassium 3.7 Chloride 108 Carbon Dioxide 21 L Anion Gap 13 BUN 18 H Creatinine 0.95 Estim Creat Clear Calc 129.1 Estimated GFR > 60 Random Glucose 111 Lactic Acid 0.8 Calcium 9.3 Total Bilirubin 0.8 AST 23 ALT 13 Alkaline Phosphatase 90 Total Protein 7.0 Albumin 4.1 Stool Occult Blood POSITIVE Stl C. cayetanensis PCR Not Detected Stool Rotavirus A PCR Not Detected Stl Adenov F 40/41 PCR Not Detected Stool Astrovirus (PCR) Not Detected Stool Campylobacter PCR Not Detected Stool Cryptosporidium PCR Not Detected Stl Sh Tox Pr E STEC PCR Not Detected Stool E coli O157 PCR Not applicable Stl Enterotoxigenic E PCR Not Detected Stool EPEC (PCR) Not Detected Stool EAEC (PCR) Not Detected Stl E. histolytica PCR Not Detected Stool Giardia Lamblia PCR Not Detected Stl P. shigelloides PCR Not Detected Stool Salmonella PCR Not Detected Stool Sapovirus (PCR) Not Detected Stl Shigella/EIEC PCR Not Detected St Y.enterocolitica PCR Not Detected Stool Vibrio (PCR) Not Detected Stl Vibrio cholerae PCR Not Detected Stl Norovirus GI/GII PCR Not Detected Blood Type Antibody Screen 12/26/24 12/26/24 12/27/24 05:11 12:58 05:23 WBC 10.3 11.5 H RBC 3.99 L 3.96 L Hgb 13.3 L 13.4 L 13.1 L Hct 39.3 L 39.5 L 39.5 L MCV 98.5 H 99.7 H MCH 33.3 H 33.1 H MCHC 33.8 33.2 RDW 13.2 13.7 Plt Count 259 241 MPV 10.1 10.2 Immature Gran % (Auto) 0.3 0.4 Neut % (Auto) 72.9 73.7 H Lymph % (Auto) 15.3 L 14.3 L Haywood % (Auto) 9.6 8.1 Eos % (Auto) 1.5 3.0 Baso % (Auto) 0.4 0.5 Lymph # (Auto) 1.6 1.6 Haywood # (Auto) 1.0 0.9 Eos # (Auto) 0.2 0.3 Baso # (Auto) 0.0 0.1 Abs Immat Gran (auto) 0.03 0.05 H Absolute Neuts (auto) 7.5 8.5 H Absolute Nucleated RBC 0.000 0.000 Nucleated RBC % (auto) 0.0 0.0 Sodium 139 139 Potassium 3.8 3.8 Chloride 107 108 Carbon Dioxide 24 24 Anion Gap 12 11 L BUN 16 10 Creatinine 0.87 0.85 Estim Creat Clear Calc 141.0 147.8 Estimated GFR > 60 > 60 Random Glucose 101 102 Lactic Acid Calcium 8.7 D 8.6 Total Bilirubin AST ALT Alkaline Phosphatase Total Protein Albumin Stool Occult Blood Stl C. cayetanensis PCR Stool Rotavirus A PCR Stl Adenov F 40/41 PCR Stool Astrovirus (PCR) Stool Campylobacter PCR Stool Cryptosporidium PCR Stl Sh Tox Pr E STEC PCR Stool E coli O157 PCR Stl Enterotoxigenic E PCR Stool EPEC (PCR) Stool EAEC (PCR) Stl E. histolytica PCR Stool Giardia Lamblia PCR Stl P. shigelloides PCR Stool Salmonella PCR Stool Sapovirus (PCR) Stl Shigella/EIEC PCR St Y.enterocolitica PCR Stool Vibrio (PCR) Stl Vibrio cholerae PCR Stl Norovirus GI/GII PCR Blood Type O Positive Antibody Screen NEGATIVE Narrative Narrative: EKG 12/21/24 Sinus with marked sinus arrhythmia, 1st degree AV block, rate 68 Right bundle branch block ECHO 09/08/24 Successful implantation of 27 mm Watchman FLX Pro device. Left ventricular systolic function appears grossly normal/preserved. LVEF visually estimated at 55%. Abnormal septal motion consistent with conduction abnormality/RV pacing. Right ventricle is moderately to severely dilated. Right ventricular systolic funciton is moderately reduced. Right atrium is severely dilated. There is mild pulmonic regurgitation visually. There is mild plaque in the descending aorta. The main pulmonary artery is dilated, consistent with elevated pulmonary artery systolic pressure. Assessment and Plan Final Anesthetic Review Family History of Problems with Anesthesia: No History of Problems with Anesthesia: No Documented by User: Corona Roque MD 12/27/24 15:36 [facility] Past Medical History Medical History Morbid (severe) obesity due to excess calories Presence of Watchman left atrial appendage closure device Visit for suture removal Rib pain on left side Post-COVID syndrome Traumatic perinephric hematoma of left kidney Chronic diastolic heart failure JEFFRY on CPAP Anemia Sepsis COPD (chronic obstructive pulmonary disease) Acute respiratory failure due to COVID-19 Community acquired pneumonia Viral sepsis Fatigue Acute on chronic diastolic CHF (congestive heart failure) COVID Morbid obesity Paroxysmal atrial fibrillation Testicular swelling Osteoarthritis of right knee Melanoma History of cardioversion Hereditary lymphedema Venous insufficiency Lymphedema COPD (chronic obstructive pulmonary disease) Sensory neuropathy COVID-19 Respiratory failure with hypoxia Restrictive lung disease MATUTE (dyspnea on exertion) Chronic cystitis Bladder outlet obstruction Restless leg syndrome Traumatic complete tear of right rotator cuff Injury of right rotator cuff History of diverticulitis History of umbilical hernia Family History Family History Father Arthritis Diabetes Mother Arthritis Kidney stones Family/Other Arthritis Sister No problems noted. Sister No problems noted. Son No problems noted. Surgical History Surgical History S/P shoulder surgery Status post total left knee replacement Hx of colonoscopy History of appendectomy History of arthroscopy of left knee Social History Social History Household Members: Spouse Household Members Other:: Housing: Condominium Do you presently have visiting nurse or other home services: No Alcohol intake: current Alcohol intake frequency: holidays/special occasions only Alcohol type: beer Comment: Refused bed alarm due to alarm sensitivity when changing positions. Patient Tobacco Use Status: Former Tobacco user Tobacco use type: Cigarette Cigarette Packs Per Day: 1 Years Smoked: 30 years Smoked in Last 30 Days: No e-Cigarette/Vaping Use: Never Used Second Hand Smoke Exposure: No Use of substances other than those prescribed or required for medical reasons: No Substance Use Type: Marijuana Currently Displaying Signs/Symptoms of Drug Intoxication Withdrawal: No Have you been hit, kicked, punched, or otherwise hurt by someone within the past year? If so, by whom?: No Are you DNR?: No Advance Directives: Yes Advance Directives on File: Yes Advance Directives Date on File: 02/24/24 Do you have a plan to hurt others: No Plan service: No Current occupational status: retired Current occupation: [employer]/ rt Cognitive needs: No Hearing needs: No Vision needs: No Meds Allergies Allergy/AdvReac Type Severity Reaction Status Date / Time No Known Allergies (No Known Allergy Verified 12/25/24 23:20 Allergies*) Home Medications ?Medication ?Instructions ?Recorded ?Confirmed ?Last Taken ?Type albuterol sulfate 90 mcg/actuation 2 puff PO Q6H PRN for wheezing 10/13/22 12/26/24 Unknown History aerosol inhaler ammonium lactate 12 % lotion 1 appl topical BEDTIME 11/20/23 12/26/24 03/24/24 History spironolactone 25 mg tablet 25 mg PO BID 03/14/24 12/26/24 12/25/24 History methocarbamol 500 mg tablet 500 mg PO BEDTIME PRN Muscle Pain 07/29/24 12/26/24 Unknown History clopidogrel 75 mg tablet (Plavix) 75 mg PO DAILY 11/03/24 12/26/24 12/25/24 History semaglutide (weight loss) 0.5 0.5 mg subcut FR@0911/17/24 12/26/24 Unknown History mg/0.5 mL subcutaneous pen injector (Wegovy) aspirin 81 mg tablet,delayed 81 mg PO DAILY 12/26/24 12/26/24 12/25/24 History release cholecalciferol (vitamin D3) 1,250 1,250 mcg PO FR@0900 12/26/24 12/26/24 Unknown History mcg (50,000 unit) capsule Exam Exam Date and Time: 12/27/24 Airway Mallampati Class: II TM Dist: >3cm Neck ROM: Full Heart: rrr Lungs: ctab Assessment and Plan Assessment Anesthesia Assessment: Anesthesia Plan Discussed and PAT Visit Final Anesthetic Review NPO: Yes ASA Class: III and Emergency Final Preanesthetic Review: No Changes in Pt Med Stat, Meds/Allgs Chart Reviewed, Consent Obtained/Reviewed and Anes Risks/Benef Reviewed Patient Risk: Intermediate Procedure Risk: Low Anesthetic Plan Anesthetic Plan: GA Disposition: Standard PACU
--- NOTE | 2024-12-27 09:44 | HO.PM.IMPN ---
Subjective Subjective Date of Service: 12/27/24 Review of Systems Follow up GI bleed, anemia No abdominal pain, nausea or vomiting Physical Exam Exam: Exam: Appearing in no acute distress lung sounds are clear to auscultation heart regular rate rhythm, clear S1, S2 positive bowel sounds, abdomen is soft, nontender neuro patient is alert x3, no focal deficits Vital Signs: Vital Signs: Last Vital Signs Temp 97.0 F 12/27/24 08:00 Pulse 67 12/27/24 08:00 Resp 18 12/27/24 08:00 BP 107/53 L 12/27/24 08:00 Pulse Ox 96 12/27/24 08:00 O2 Del Method Nasal Cannula 12/27/24 08:00 O2 Flow Rate 2.0 12/27/24 08:00 Oxygen Flow Rate 3 12/25/24 23:18 BMI result Body Mass Index 48.2 Objective Data Active Medications Acetaminophen (Acetaminophen 325 Mg Tablet) 650 mg PO Q6H PRN PRN Reason: Pain, Mild 1-3,fever,headache Amiodarone HCl (Amiodarone Hcl 200 Mg Tablet) 200 mg PO DAILY [facility] Last Admin: 12/27/24 08:04 Dose: Not Given Documented By: MAHESH Non-Admin Reason: low BP Ascorbic Acid (Ascorbic Acid 500 Mg Tablet) 1,000 mg PO DAILY [facility] Last Admin: 12/27/24 08:04 Dose: 1,000 mg Documented By: MAHESH Atorvastatin Calcium (Atorvastatin Calcium 80 Mg Tablet) 80 mg PO BEDTIME [facility] Last Admin: 12/26/24 20:29 Dose: 80 mg Documented By: SARAH Calcium Carbonate (Calcium Carbonate 750 Mg Tab.Chew) 750 mg PO Q4H PRN PRN Reason: Heartburn Docusate Sodium (Docusate Sodium 100 Mg Capsule) 100 mg PO BID [facility] Last Admin: 12/27/24 08:06 Dose: Not Given Documented By: MAHESH Non-Admin Reason: Patient Refused Doxazosin Mesylate (Doxazosin Mesylate 2 Mg Tablet) 8 mg PO BEDTIME [facility]; Protocol Last Admin: 12/26/24 20:29 Dose: 8 mg Documented By: SARAH Duloxetine HCl (Duloxetine Hcl 60 Mg Capsule.) 60 mg PO DAILY [facility] Last Admin: 12/27/24 08:04 Dose: 60 mg Documented By: MAHESH Hydromorphone HCl (Hydromorphone Hcl 1 Mg/Ml Syringe) 0.5 mg IVPUSH Q4H PRN; Protocol PRN Reason: Pain, Severe (Pain Scale 7-10) Last Admin: 12/27/24 08:03 Dose: 0.5 mg Documented By: MAHESH Metronidazole (Flagyl) 500 mg in 100 mls @ 100 mls/hr IV Q8H [facility] Last Infusion: 12/27/24 03:50 Dose: Infused Documented By: SARAH Levofloxacin (Levaquin) 500 mg in 100 mls @ 100 mls/hr IV Q24H [facility] Last Infusion: 12/27/24 08:11 Dose: Infused Documented By: MAHESH Magnesium Hydroxide (Milk Of Magnesia 30 Ml Oral.Susp) 30 ml PO DAILY PRN PRN Reason: Constipation Melatonin (Melatonin 3 Mg Tablet) 6 mg PO BEDTIME PRN PRN Reason: Insomnia Methocarbamol (Methocarbamol 500 Mg Tablet) 500 mg PO BEDTIME PRN PRN Reason: Muscle Pain Oxycodone HCl (Oxycodone Hcl Immed Release 5 Mg Tablet) 5 mg PO Q6H PRN PRN Reason: Pain, Moderate(Pain Scale 4-6) Pregabalin (Pregabalin 150 Mg Capsule) 150 mg PO TID [facility] Last Admin: 12/27/24 08:04 Dose: 150 mg Documented By: MAHESH Ropinirole HCl (Ropinirole Hcl 2 Mg Tablet) 2 mg PO TID [facility] Last Admin: 12/27/24 08:04 Dose: 2 mg Documented By: MAHESH Sodium Biphosphate/Sodium Phosphate (Sodium Phosphate,[place]-Dibasic 133 Ml Enema) 133 ml [place] ONCE PRN PRN Reason: Pre-Op Surgical Prep Sodium Biphosphate/Sodium Phosphate (Sodium Phosphate,[place]-Dibasic 133 Ml Enema) 133 ml CO ONCE PRN PRN Reason: Pre-Op Surgical Prep Sodium Chloride (0.9 % Sodium Chloride Flush 3 Ml Syringe) 3 ml IVFLUSH QSHIFT [facility] Last Admin: 12/27/24 08:05 Dose: 3 ml Documented By: MAHESH Zolpidem Tartrate (Zolpidem Tartrate 5 Mg Tablet) 10 mg PO BEDTIME PRN PRN Reason: Sleep Labs 12/27/24 05:23 12/27/24 05:23 Labs: Laboratory Results - last 24 hr 12/26/24 12/26/24 12/27/24 00:33 12:58 05:23 MCV 99.7 H MCH 33.1 H MCHC 33.2 RDW 13.7 Plt Count 241 MPV 10.2 Immature Gran % (Auto) 0.4 Neut % (Auto) 73.7 H Lymph % (Auto) 14.3 L [place] % (Auto) 8.1 Eos % (Auto) 3.0 Baso % (Auto) 0.5 Lymph # (Auto) 1.6 [place] # (Auto) 0.9 Eos # (Auto) 0.3 Baso # (Auto) 0.1 Abs Immat Gran (auto) 0.05 H Absolute Neuts (auto) 8.5 H Absolute Nucleated RBC 0.000 Nucleated RBC % (auto) 0.0 Anion Gap 11 L Estim Creat Clear Calc 147.8 Estimated GFR > 60 Random Glucose 102 Calcium 8.6 Stl C. cayetanensis PCR Not Detected Stool Rotavirus A PCR Not Detected Stl Adenov F 40/41 PCR Not Detected Stool Astrovirus (PCR) Not Detected Stool Campylobacter PCR Not Detected Stool Cryptosporidium PCR Not Detected Stl Sh Tox Pr E STEC PCR Not Detected Stool E coli O157 PCR Not applicable Stl Enterotoxigenic E PCR Not Detected Stool EPEC (PCR) Not Detected Stool EAEC (PCR) Not Detected Stl E. histolytica PCR Not Detected Stool Giardia Lamblia PCR Not Detected Stl P. shigelloides PCR Not Detected Stool Salmonella PCR Not Detected Stool Sapovirus (PCR) Not Detected Stl Shigella/EIEC PCR Not Detected St Y.enterocolitica PCR Not Detected Stool Vibrio (PCR) Not Detected Stl Vibrio cholerae PCR Not Detected Stl Norovirus GI/GII PCR Not Detected Blood Type O Positive Antibody Screen NEGATIVE Microbiology Microbiology Results: Microbiology 12/26/24 04:03 Blood Culture - Preliminary Blood - Venous No growth after 24 hours. 12/26/24 03:48 Blood Culture - Preliminary Blood - Venous No growth after 24 hours. Assessment and Plan (1) Colitis with rectal bleeding: Status: Acute Plan 69-year-old male with PMHx paroxysmal AFib no anticoagulation, chronic diastolic CHF, chronic lymphedema, HTN, chronic hypoxic respiratory failure due to COPD on 3 L of home oxygen, JEFFRY on CPAP, hypothyroidism, overactive bladder, morbid obesity, on Plavix and aspirin no AC therapy who presented to the ED due to lower abd pain with bright red bloody diarrhea. Colitis with rectal bleeding levaquin and flagyl CBC normal, monitor stool studies negative GI consult> Flex sig today hold asa and statin Chronic diastolic HF, no acute exacerbation continue home meds Paroxysmal AFib Continue amiodarone HTN BP soft, hold home meds COPD, no acute exacerbation inhalers PRN JEFFRY CPAP at bedtime Morbid obesity Weight loss recommended full code DVT prophylaxis: SCDs due to rectal bleeding Pt with colitis with rectal bleeding, requiring admission for at least 2 midnights stay for IV abx and GI consult. Quality Stroke Does the patient have a stroke diagnosis?: No VTE Prior VTE?: No VTE Risk Level:: Medical - moderate - high VTE Device Contraindication: N/A - Device Ordered VTE Drug Contraindication: Treatment Not Indicated
--- NOTE | 2024-12-27 14:53 | MHC.CM.PN ---
EMR REVIEWED AND PER MD ROUNDS, PT WILL HAVE A FLEX SIG TODAY, NOT YET MEDICALLY CLEARED. CM WILL CONTINUE TO FOLLOW FOR DC PLAN/NEEDS.
[2024-12-27 15:01] VITALS: BP 130/60; PULSE 102; RESP 18; TEMP 36.4; O2SAT 95
[2024-12-27] MEDS: Lactated Ringers 500 ML 20 ML IVCONT (15:47)
--- NOTE | 2024-12-27 16:44 | MHC.SHP ---
Pre-Procedural Eval Section A - 24 Hr Update-Section A only Date of Service: 12/27/24 The patient is an INPATIENT: Yes Changes since office visit: Yes New Medical Problems, Yes Changes in Medication and Yes Patient answered all questions; No Cold of Flu in the past 2 weeks The patient has been examined within 24 hours of the surgical procedure. The History & Physical has been completed within 30 days and I have reviewed it.: Yes Section B - Complete if H&P > 30 days Chief Complaint: colitis Allergies: Allergies Allergy/AdvReac Type Severity Reaction Status Date / Time No Known Allergies (No Known Allergy Verified 12/25/24 23:20 Allergies*) Plan Diagnosis/Plan: Unchanged Last dose of Ozempic was 12/24/24. OK to proceed with flex sig declared an emergency. I have reviewed the history and physical and performed a pertinent physical examination on my patient. No changes have occurred unless specified. Time Spent With Patient Time: Total time managing care of this patient today ____ minutes.
--- NOTE | 2024-12-27 17:15 | W.PM.OPN ---
Operative Note Operative Note Date of Service: 12/27/24 Narrative: FLEXIBLE SIGMOIDOSCOPY TILL 35 CM WITH BIOPSIES Pre-op diagnosis: Bloody diarrhea, colitis on CT scan. Post-op diagnosis:? colitis sigmoid colon, Diverticulosis, hemorrhoids Endoscopist:? Nichole Mcclain MD Anesthesia:?MAC Consent: Indications for the procedure and potential complications of bleeding, perforation, reaction to medications and missed diagnosis were discussed with the patient and informed consent was obtained. Instrument: Olympus mid size upper endoscope Monitoring: Vital signs and clinical assessment, intermittent blood pressure monitoring, continuous EKG monitoring, Pulse oximetry and Carbon Dioxide monitoring were done throughout the procedure. Please see anesthesia flowsheet. Procedure: The patient was placed in the left lateral decubitis position and pre-procedure medications were administered. After a digital rectal examination of the ano-rectum, the video upper endoscope was inserted into the rectum and advanced through the colon to 35 cms into the distal sigmoid colon. The upper endoscope was slowly withdrawn in a retrograde panoramic fashion and the colon mucosa was carefully examined including a retroflexed view of the rectum. Findings and interventions are described below. Procedure Difficulty: without difficulty Findings: Sigmoid Colon: Marked edema, erythema , submucosal hemorrhages and circumferential ulceration covered with white exudate with serosanguineous fluid in the colon and extending proximally - biopsies were obtained. No necrosis visualized. Moderate diverticulosis Rectum: Normal Ano-rectum: Moderate internal hemorrhoids Impression and Post Procedure Diagnosis: Colonoscopy Findings: Sigmoid colon Edema, erythema , submucosal hemorrhages and circumferential ulceration covered with white exudate with serosanguineous fluid in the colon - likely due to ischemic colitis Moderate diverticulosis seen in the sigmoid colon Moderate hemorrhoids on retroflexed exam. Plan: 1. Continue IV antibiotics 2. Clear liquid diet tonight (order placed) and advance diet as tolerated. 3. Surgical consult if pt develops increased pain or increase in lactic acid Above findings were reviewed with the patient. BIOPSIES SHOWED: Colon, sigmoid, biopsy: Severely active colitis
[2024-12-27 17:24] VITALS: BP 112/83; PULSE 71; RESP 21; TEMP 36.6; O2SAT 96
[2024-12-27 17:29] VITALS: BP 123/57; PULSE 72; RESP 19; O2SAT 94
[2024-12-27 17:37] VITALS: BP 117/60; BP 120/60; PULSE 71; PULSE 72; RESP 16; RESP 18; TEMP 36.2; TEMP 36.6; O2SAT 94; O2SAT 97
--- NOTE | 2024-12-27 23:11 | PC.NURSE ---
2305- Patients medication, Requip was given late(1800) after return from procedure, however, he was still looking to receive his 2100 dose. Provider was contacted and message was okay to give but wait until 2300. Po medication therefore, given at that time.
[2024-12-28] MEDS: metroNIDAZOLE/NS 500 MG/100 ML PIGGYBACK 100 MG IV (02:42)
[2024-12-28 03:00] VITALS: BP 105/55; PULSE 65; RESP 22; TEMP 35.9; O2SAT 92
[2024-12-28 06:07] LABS: MANUAL DIFF FLAG NO
[2024-12-28 06:19] LABS: Hematocrit 41.5 % (42.0-52.0); Hemoglobin 13.9 g/dl (14.0-18.0); Imm Gran Abs Auto 0.03 X10*3/uL (0.00-0.03); Imm Gran Pct Auto 0.4 % (0.0-0.4); Lymphocytes Absolute Auto 1.4 X10*3/uL (1.2-4.9); Mean Corpuscular HGB Conc 33.5 g/dl (31.0-36.0); Mean Corpuscular Hemoglobin 33.9 pg (27.0-33.0); Mean Corpuscular Volume 101.2 fL (80.0-98.0); NRBC Abs Auto 0.000 X10*3/uL (0.0-0.012); NRBC Pct Auto 0.0 /100WBC (0.0-0.2); Platelet Count 239 X10*3/uL (160-400); Red Blood Count 4.10 X10*6/uL (4.60-5.80); White Blood Count 8.5 X10*3/uL (4.8-10.8)
[2024-12-28 06:35] LABS: Anion Gap 12 (12-20); Blood Urea Nitrogen 8 mg/dL (9-16); Calcium 8.5 mg/dL (8.4-10.2); Carbon Dioxide 22 mmol/L (22-29); Chloride 108 mmol/L (96-108); Creatinine Clr Calc Pharmacy 163.1; Estimated Glomerular Filt Rate > 60; Potassium 3.5 mmol/L (3.3-5.1); Sodium 138 mmol/L (135-145)
[2024-12-28 07:45] VITALS: BP 119/63; PULSE 60; RESP 18; TEMP 36.6; O2SAT 98
[2024-12-28] MEDS: 0.9 % Sodium Chloride Flush 3 ML SYRINGE IVFLUSH ×3 (08:14→20:50)
--- NOTE | 2024-12-28 08:36 | HO.POSTANES ---
Post Anesthesia Evaluation Post Anesthesia Evaluation Date of Service: 12/28/24 Vital Signs: Vital Signs Temp Pulse Resp BP Pulse Ox O2 Del Method O2 Flow Rate 12/28/24 07:45 97.8 F 60 18 119/63 98 Nasal Cannula 2.0 12/28/24 03:00 96.7 F L 65 22 H 105/55 L 92 Room Air Anesthesia: Monitored Mental Status: Awake Pain Control: Satisfactory Nausea/Vomiting: None Hydration: Adequate Anesthesia-Related Issues: No Anes. Related Issues
[2024-12-28] MEDS: oxyCODONE HCl Immed Release 5 MG TABLET PO ×2 (10:59→20:48)
--- NOTE | 2024-12-28 11:11 | HO.PM.IMPN ---
Subjective Subjective Date of Service: 12/28/24 Review of Systems Follow up GI bleed, anemia No abdominal pain, nausea or vomiting Physical Exam Exam: Exam: Appearing in no acute distress lung sounds are clear to auscultation heart regular rate rhythm, clear S1, S2 positive bowel sounds, abdomen is soft, nontender neuro patient is alert x3, no focal deficits Vital Signs: Vital Signs: Last Vital Signs Temp 97.8 F 12/28/24 07:45 Pulse 60 12/28/24 07:45 Resp 18 12/28/24 07:45 BP 119/63 12/28/24 07:45 Pulse Ox 98 12/28/24 07:45 O2 Del Method Nasal Cannula 12/28/24 07:45 O2 Flow Rate 2.0 12/28/24 07:45 Oxygen Flow Rate 3 12/25/24 23:18 BMI result Body Mass Index 48.2 Objective Data Active Medications Acetaminophen (Acetaminophen 325 Mg Tablet) 650 mg PO Q6H PRN PRN Reason: Pain, Mild 1-3,fever,headache Amiodarone HCl (Amiodarone Hcl 200 Mg Tablet) 200 mg PO DAILY [facility] Last Admin: 12/28/24 08:14 Dose: 200 mg Documented By: MAHESH Ascorbic Acid (Ascorbic Acid 500 Mg Tablet) 1,000 mg PO DAILY [facility] Last Admin: 12/28/24 08:14 Dose: 1,000 mg Documented By: MAHESH Atorvastatin Calcium (Atorvastatin Calcium 80 Mg Tablet) 80 mg PO BEDTIME [facility] Last Admin: 12/27/24 20:55 Dose: 80 mg Documented By: SARAH Calcium Carbonate (Calcium Carbonate 750 Mg Tab.Chew) 750 mg PO Q4H PRN PRN Reason: Heartburn Docusate Sodium (Docusate Sodium 100 Mg Capsule) 100 mg PO BID [facility] Last Admin: 12/28/24 08:14 Dose: Not Given Documented By: MAHESH Non-Admin Reason: Patient Refused Doxazosin Mesylate (Doxazosin Mesylate 2 Mg Tablet) 8 mg PO BEDTIME [facility]; Protocol Last Admin: 12/27/24 20:55 Dose: 8 mg Documented By: SARAH Duloxetine HCl (Duloxetine Hcl 60 Mg Capsule.) 60 mg PO DAILY [facility] Last Admin: 12/28/24 08:14 Dose: 60 mg Documented By: MAHESH Hydromorphone HCl (Hydromorphone Hcl 1 Mg/Ml Syringe) 0.5 mg IVPUSH Q4H PRN; Protocol PRN Reason: Pain, Severe (Pain Scale 7-10) Last Admin: 12/28/24 08:14 Dose: 0.5 mg Documented By: MAHESH Levofloxacin (Levaquin) 500 mg in 100 mls @ 100 mls/hr IV Q24H [facility] Last Infusion: 12/28/24 07:15 Dose: Infused Documented By: MAHESH Magnesium Hydroxide (Milk Of Magnesia 30 Ml Oral.Susp) 30 ml PO DAILY PRN PRN Reason: Constipation Melatonin (Melatonin 3 Mg Tablet) 6 mg PO BEDTIME PRN PRN Reason: Insomnia Methocarbamol (Methocarbamol 500 Mg Tablet) 500 mg PO BEDTIME PRN PRN Reason: Muscle Pain Metronidazole (Metronidazole 500 Mg Tablet) 500 mg PO Q8H [facility] Last Admin: 12/28/24 10:59 Dose: 500 mg Documented By: MAHESH Naloxone HCl (Naloxone Hcl 0.4 Mg/Ml Vial) 0.04 mg IVPUSH Q5M PRN PRN Reason: Excessive sedation or RR < 8 Ondansetron HCl (Ondansetron Hcl 4 Mg/2 Ml Vial) 4 mg IVPUSH Q6H PRN PRN Reason: Nausea and Vomiting Last Admin: 12/27/24 12:27 Dose: 4 mg Documented By: MAHESH Oxycodone HCl (Oxycodone Hcl Immed Release 5 Mg Tablet) 5 mg PO Q6H PRN PRN Reason: Pain, Moderate(Pain Scale 4-6) Last Admin: 12/28/24 10:59 Dose: 5 mg Documented By: MAHESH Pregabalin (Pregabalin 150 Mg Capsule) 150 mg PO TID [facility] Last Admin: 12/28/24 08:14 Dose: 150 mg Documented By: MAHESH Ropinirole HCl (Ropinirole Hcl 2 Mg Tablet) 2 mg PO TID [facility] Last Admin: 12/28/24 08:14 Dose: 2 mg Documented By: MAHESH Sodium Biphosphate/Sodium Phosphate (Sodium Phosphate,[place]-Dibasic 133 Ml Enema) 133 ml [place] ONCE PRN PRN Reason: Pre-Op Surgical Prep Last Admin: 12/27/24 13:28 Dose: 133 ml Documented By: MAHESH Sodium Biphosphate/Sodium Phosphate (Sodium Phosphate,[place]-Dibasic 133 Ml Enema) 133 ml [place] ONCE PRN PRN Reason: Pre-Op Surgical Prep Last Admin: 12/27/24 13:35 Dose: 133 ml Documented By: MAHESH Sodium Chloride (0.9 % Sodium Chloride Flush 3 Ml Syringe) 3 ml IVFLUSH QSHIFT [facility] Last Admin: 12/28/24 08:14 Dose: 3 ml Documented By: MAHESH Zolpidem Tartrate (Zolpidem Tartrate 5 Mg Tablet) 10 mg PO BEDTIME PRN PRN Reason: Sleep Labs 12/28/24 05:27 12/28/24 05:27 Labs: Laboratory Results - last 24 hr 12/28/24 05:27 MCV 101.2 H MCH 33.9 H MCHC 33.5 RDW 13.5 Plt Count 239 MPV 10.3 Immature Gran % (Auto) 0.4 Neut % (Auto) 69.0 Lymph % (Auto) 16.9 L [place] % (Auto) 7.7 Eos % (Auto) 5.3 H Baso % (Auto) 0.7 Lymph # (Auto) 1.4 [place] # (Auto) 0.7 Eos # (Auto) 0.5 H Baso # (Auto) 0.1 Abs Immat Gran (auto) 0.03 Absolute Neuts (auto) 5.9 Absolute Nucleated RBC 0.000 Nucleated RBC % (auto) 0.0 Anion Gap 12 Estim Creat Clear Calc 163.1 Estimated GFR > 60 Random Glucose 93 Calcium 8.5 Microbiology Microbiology Results: Microbiology 12/26/24 04:03 Blood Culture - Preliminary Blood - Venous No growth after 48 hours. 12/26/24 03:48 Blood Culture - Preliminary Blood - Venous No growth after 48 hours. Assessment and Plan (1) Colitis with rectal bleeding: Status: Acute Plan 69-year-old male with PMHx paroxysmal AFib no anticoagulation, chronic diastolic CHF, chronic lymphedema, HTN, chronic hypoxic respiratory failure due to COPD on 3 L of home oxygen, JEFFRY on CPAP, hypothyroidism, overactive bladder, morbid obesity, on Plavix and aspirin no AC therapy who presented to the ED due to lower abd pain with bright red bloody diarrhea. Ischemic Colitis with rectal bleeding levaquin and flagyl CBC normal, monitor stool studies negative GI consult> status post flex sig with findings of ischemic colitis, diverticulosis and hemorrhoids, continue IV antibiotics for now, advance diet Hold aspirin and Plavix Chronic diastolic HF, no acute exacerbation continue home meds Paroxysmal AFib Continue amiodarone HTN BP soft, hold home meds COPD, no acute exacerbation inhalers PRN JEFFRY CPAP at bedtime Morbid obesity. BMI 48.2 Discussed importance of weight management as this may be contributing to worsening of other comorbidities full code DVT prophylaxis: SCDs due to rectal bleeding Quality Stroke Does the patient have a stroke diagnosis?: No VTE Prior VTE?: No VTE Risk Level:: Medical - moderate - high VTE Device Contraindication: N/A - Device Ordered VTE Drug Contraindication: Treatment Not Indicated
[2024-12-28 15:18] VITALS: BP 134/60; PULSE 82; RESP 16; TEMP 36.1; O2SAT 96
--- NOTE | 2024-12-28 17:17 | PC.NURSE ---
CHELSY Simmons made aware pt continues to have cramping and abd pain after meals, previously notified in 10 AM rounds. Pt receiving PRN pain meds with mild good effect. Per DIRECTOR TELEVISION downgrade diet to clear, Abd ct, and labs ordered. Pt aware of plan.
[2024-12-28] MEDS: Ammonium Lactate 12 % Lotion 226 GM BOTTLE 1 APPL TOPICAL ×2 (18:02→20:49)
[2024-12-28 20:00] VITALS: BP 117/78; PULSE 74; RESP 19; TEMP 37.1; O2SAT 96
[2024-12-29 03:31] VITALS: BP 107/55; PULSE 69; RESP 18; TEMP 36.4; O2SAT 97
[2024-12-29 07:21] VITALS: BP 125/55; PULSE 61; RESP 17; TEMP 36.1; O2SAT 98
[2024-12-29] MEDS: 0.9 % Sodium Chloride Flush 3 ML SYRINGE IVFLUSH ×3 (08:30→20:38)
[2024-12-29 10:31] LABS: Hematocrit 44.8 % (42.0-52.0); Hemoglobin 14.7 g/dl (14.0-18.0); Mean Corpuscular HGB Conc 32.8 g/dl (31.0-36.0); Mean Corpuscular Hemoglobin 33.1 pg (27.0-33.0); Mean Corpuscular Volume 100.9 fL (80.0-98.0); NRBC Abs Auto 0.000 X10*3/uL (0.0-0.012); NRBC Pct Auto 0.0 /100WBC (0.0-0.2); Platelet Count 231 X10*3/uL (160-400); Red Blood Count 4.44 X10*6/uL (4.60-5.80); White Blood Count 7.2 X10*3/uL (4.8-10.8)
[2024-12-29 10:43] LABS: Anion Gap 15 (12-20); Blood Urea Nitrogen 9 mg/dL (9-16); Calcium 8.9 mg/dL (8.4-10.2); Carbon Dioxide 22 mmol/L (22-29); Chloride 106 mmol/L (96-108); Creatinine Clr Calc Pharmacy 141.1; Estimated Glomerular Filt Rate > 60; Potassium 4.1 mmol/L (3.3-5.1); Sodium 139 mmol/L (135-145)
[2024-12-29 11:09] VITALS: BP 122/68
--- NOTE | 2024-12-29 13:36 | P.CONGS_ITS ---
History of Present Illness Consult details Consult date: 12/29/24 <Elizabeth Lopez PA-C - Last Filed: 12/29/24 13:47> Reason for consult: other (ischemic colitis ) <Elizabeth Lopez PA-C - Last Filed: 12/29/24 13:47> Narrative: 69-year-old male with multiple medical comorbidities including paroxysmal AFib, chronic diastolic CHF, chronic lymphedema, HTN, chronic hypoxic respiratory failure due to COPD on 3 L of home oxygen, JEFFRY on CPAP, hypothyroidism, morbid obesity who presented to the ED due to lower abd pain with bloody diarrhea. He reports going out to eat Friday night and around 6pm developed lower abdominal pain. He then began to have multiple loose stools. During one of the episodes, he noticed it was entirely bloody with no stool. He therefore came to the ED for evaluation. He has associated nausea without vomiting. He denied fever, chills, sick contacts or recent travel. CT scan at admission showed pericolonic fat stranding and mild wall thickening involving the sigmoid colon consistent with colitis. He was admitted to the hospitalist service for ischemic colitis. He reported some improvement in his lower abd pain earlier this week and was able to tolerate the enemas for a colonoscopy without further BRBPR. He underwent colonoscopy yesterday which showed sigmoid colon Edema, erythema, submucosal hemorrhages and circumferential ulceration likely secondary to ischemic colitis. Following the procedure, he reports eating a solid diet with worsening in his lower abd pain. He had another episode of BRBPR. Repeat CT scan was therefore obtained which redemonstrated colonic wall thickening and pericolonic stranding primarily involving the sigmoid colon. No lactic acidosis. He feels somewhat improved this morning. He denies further BRBPR. Surgical history significant for an appendectomy over 10 years ago. < Elizabeth Lopez PA-C - Last Filed: 12/29/24 13:47> Review of Systems 2 Review of Systems: Yes all other systems are reviewed and are negative < Elizabeth Lopez PA-C - Last Filed: 12/29/24 13:47> PMF Past Medical History Medical History: Medical History Morbid (severe) obesity due to excess calories Presence of Watchman left atrial appendage closure device Visit for suture removal Rib pain on left side Post-COVID syndrome Traumatic perinephric hematoma of left kidney Chronic diastolic heart failure JEFFRY on CPAP Anemia Sepsis COPD (chronic obstructive pulmonary disease) Acute respiratory failure due to COVID-19 Community acquired pneumonia Viral sepsis Fatigue Acute on chronic diastolic CHF (congestive heart failure) COVID Morbid obesity Paroxysmal atrial fibrillation Testicular swelling Osteoarthritis of right knee Melanoma History of cardioversion Hereditary lymphedema Venous insufficiency Lymphedema COPD (chronic obstructive pulmonary disease) Sensory neuropathy COVID-19 Respiratory failure with hypoxia Restrictive lung disease MATUTE (dyspnea on exertion) Chronic cystitis Bladder outlet obstruction Restless leg syndrome Traumatic complete tear of right rotator cuff Injury of right rotator cuff History of diverticulitis History of umbilical hernia <Elizabeth Lopez PA-C - Last Filed: 12/29/24 13:47> Family History Family History: Family History Father Arthritis Diabetes Mother Arthritis Kidney stones Family/Other Arthritis Sister No problems noted. Sister No problems noted. Son No problems noted. <Elizabeth Lopez PA-C - Last Filed: 12/29/24 13:47> Surgical History Surgical History: Surgical History S/P shoulder surgery Status post total left knee replacement Hx of colonoscopy History of appendectomy History of arthroscopy of left knee <Elizabeth Lopez PA-C - Last Filed: 12/29/24 13:47> Social History Social History: Social History Household Members: Spouse Household Members Other:: Housing: Condominium Do you presently have visiting nurse or other home services: No Alcohol intake: current Alcohol intake frequency: holidays/special occasions only Alcohol type: beer Comment: Refused bed alarm due to alarm sensitivity when changing positions. Patient Tobacco Use Status: Former Tobacco user Tobacco use type: Cigarette Cigarette Packs Per Day: 1 Years Smoked: 30 years Smoked in Last 30 Days: No e-Cigarette/Vaping Use: Never Used Second Hand Smoke Exposure: No Use of substances other than those prescribed or required for medical reasons: No Substance Use Type: Marijuana Currently Displaying Signs/Symptoms of Drug Intoxication Withdrawal: No Have you been hit, kicked, punched, or otherwise hurt by someone within the past year? 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 Cognitive needs: No Hearing needs: No Vision needs: No <Elizabeth Lopez PA-C - Last Filed: 12/29/24 13:47> Meds Allergies/Adverse reactions: Allergies Allergy/AdvReac Type Severity Reaction Status Date / Time No Known Allergies (No Known Allergy Verified 12/25/24 23:20 Allergies*) <Elizabeth Lopez PA-C - Last Filed: 12/29/24 13:47> Active Medications: Current Medications Acetaminophen (Acetaminophen 325 Mg Tablet) 650 mg PO Q6H PRN PRN Reason: Pain, Mild 1-3,fever,headache Amiodarone HCl (Amiodarone Hcl 200 Mg Tablet) 200 mg PO DAILY [facility] Last Admin: 12/29/24 08:30 Dose: 200 mg Ascorbic Acid (Ascorbic Acid 500 Mg Tablet) 1,000 mg PO DAILY [facility] Last Admin: 12/29/24 08:30 Dose: 1,000 mg Atorvastatin Calcium (Atorvastatin Calcium 80 Mg Tablet) 80 mg PO BEDTIME [facility] Last Admin: 12/28/24 20:48 Dose: 80 mg Calcium Carbonate (Calcium Carbonate 750 Mg Tab.Chew) 750 mg PO Q4H PRN PRN Reason: Heartburn Docusate Sodium (Docusate Sodium 100 Mg Capsule) 100 mg PO BID [facility] Last Admin: 12/29/24 08:30 Dose: 100 mg Doxazosin Mesylate (Doxazosin Mesylate 2 Mg Tablet) 8 mg PO BEDTIME [facility]; Protocol Last Admin: 12/28/24 20:49 Dose: 8 mg Duloxetine HCl (Duloxetine Hcl 60 Mg Capsule.Dr) 60 mg PO DAILY [facility] Last Admin: 12/29/24 08:30 Dose: 60 mg Hydromorphone HCl (Hydromorphone Hcl 1 Mg/Ml Syringe) 0.5 mg IVPUSH Q6H PRN; Protocol PRN Reason: Pain, Severe (Pain Scale 7-10) Last Admin: 12/28/24 18:02 Dose: 0.5 mg Lactic Acid (Ammonium Lactate 12 % Lotion 226 Gm Bottle) 1 appl TOPICAL BEDTIME [facility]; Protocol Last Admin: 12/28/24 20:49 Dose: 1 appl Levofloxacin (Levofloxacin 500 Mg Tablet) 500 mg PO Q24H [facility] Stop: 01/06/25 06:59 Magnesium Hydroxide (Milk Of Magnesia 30 Ml Oral.Susp) 30 ml PO DAILY PRN PRN Reason: Constipation Melatonin (Melatonin 3 Mg Tablet) 6 mg PO BEDTIME PRN PRN Reason: Insomnia Methocarbamol (Methocarbamol 500 Mg Tablet) 500 mg PO BEDTIME PRN PRN Reason: Muscle Pain Metronidazole (Metronidazole 500 Mg Tablet) 500 mg PO Q8H [facility] Last Admin: 12/29/24 11:09 Dose: 500 mg Naloxone HCl (Naloxone Hcl 0.4 Mg/Ml Vial) 0.04 mg IVPUSH Q5M PRN PRN Reason: Excessive sedation or RR < 8 Ondansetron HCl (Ondansetron Hcl 4 Mg/2 Ml Vial) 4 mg IVPUSH Q6H PRN PRN Reason: Nausea and Vomiting Last Admin: 12/27/24 12:27 Dose: 4 mg Oxycodone HCl (Oxycodone Hcl Immed Release 5 Mg Tablet) 5 mg PO Q6H PRN PRN Reason: Pain, Moderate(Pain Scale 4-6) Last Admin: 12/28/24 20:48 Dose: 5 mg Pregabalin (Pregabalin 150 Mg Capsule) 150 mg PO TID [facility] Last Admin: 12/29/24 08:30 Dose: 150 mg Ropinirole HCl (Ropinirole Hcl 2 Mg Tablet) 2 mg PO TID [facility] Last Admin: 12/29/24 08:30 Dose: 2 mg Sodium Biphosphate/Sodium Phosphate (Sodium Phosphate,[place]-Dibasic 133 Ml Enema) 133 ml [place] ONCE PRN PRN Reason: Pre-Op Surgical Prep Last Admin: 12/27/24 13:28 Dose: 133 ml Sodium Biphosphate/Sodium Phosphate (Sodium Phosphate,[place]-Dibasic 133 Ml Enema) 133 ml [place] ONCE PRN PRN Reason: Pre-Op Surgical Prep Last Admin: 12/27/24 13:35 Dose: 133 ml Sodium Chloride (0.9 % Sodium Chloride Flush 3 Ml Syringe) 3 [facility] Last Admin: 12/29/24 08:30 Dose: 3 ml Spironolactone (Spironolactone 25 Mg Tablet) 25 mg PO BID [facility]; Protocol Last Admin: 12/29/24 11:09 Dose: 25 mg Zolpidem Tartrate (Zolpidem Tartrate 5 Mg Tablet) 10 mg PO BEDTIME PRN PRN Reason: Sleep <Elizabeth Lopez PA-C - Last Filed: 12/29/24 13:47> Home medications: Home Medications ?Medication ?Instructions ?Recorded ?Confirmed ?Last Taken ?Type albuterol sulfate 90 mcg/actuation 2 puff PO Q6H PRN f or wheezing 10/13/22 12/26/24 Unknown History aerosol inhaler ammonium lactate 12 % lotion 1 appl topical BEDTIME 12/26/24 03/24/24 History spironolactone 25 mg tablet 25 mg PO BID 03/14/24 1111/1112/25/24 History methocarbamol 500 mg tablet 500 mg PO BEDTIME PRN Musc le Pain 07/29/24 12/26/24 Unknown History clopidogrel 75 mg tablet (Plavix) 75 mg PO DAILY 11/0312/26/24 12/25/24 History semaglutide (weight loss) 0.5 0.5 mg subcut FR@0900 12/26/24 Unknown History mg/0.5 mL subcutaneous pen injector (Wegovy) aspirin 81 mg tablet,delayed 81 mg PO DAILY 12/26/24 1 02/26/24 12/25/24 History release cholecalciferol (vitamin D3) 1,250 1,250 mcg PO FR@090 0 12/26/24 12/26/24 Unknown History mcg (50,000 unit) capsule <Elizabeth Lopez PA-C - Last Filed: 12/29/24 13:47> Physical Exam 2 Vital Signs: Vital Signs: Last Vital Signs Temp 96.9 F 12/29/24 07:21 Pulse 61 12/29/24 07:21 Resp 17 12/29/24 07:21 BP 122/68 12/29/24 11:09 Pulse Ox 98 12/29/24 07:21 O2 Del Method Room Air 12/29/24 07:21 O2 Flow Rate 2 12/28/24 15:18 Oxygen Flow Rate 3 12/25/24 23:18 BMI result Body Mass Index 48.2 <Elizabeth Lopez PA-C - Last Filed: 12/29/24 13:47> Const: General: comfortable, no acute distress and alert <Elizabeth Lopez PA-C - Last Filed: 12/29/24 13:47> Orientation/consciousness: patient oriented x3 <Elizabeth Lopez PA-C - Last Filed: 12/29/24 13:47> Resp: Effort & Inspection: normal respiratory effort and able to speak in complete sentences <IVORY Carerno - Last Filed: 12/29/24 13:47> GI: Other: markedly corpulent abdomen soft lower abdomen mild to moderately tender centrally <Elizabeth Lopez PA-C - Last Filed: 12/29/24 13:47> Palpation (GI): no guarding and not rigid <IVORY Carreno - Last Filed: 12/29/24 13:47> Percussion: Yes normal to percussion <IVORY Carreno - Last Filed: 12/29/24 13:47> Skin: Other: warm and dry <IVORY Carreno - Last Filed: 12/29/24 13:47> Neuro: General: patient oriented x3 and moves all extremities <Elizabeth Lopez PA-C Abe Last Filed: 12/29/24 13:47> Extrem: Other: venous stasis changes b/l LE <IVORY Carreno - Last Filed: 12/29/24 13:47> Results Labs Result diagrams: 12/29/24 10:01 12/29/24 10:01 <Elizabeth Lopez PA-C - Last Filed: 12/29/24 13:47> Labs: Abnormal lab results 12/29/24 Range/Units 10:01 RBC 4.44 L (4.60-5.80) X10*6/uL MCV 100.9 H (80.0-98.0) fL MCH 33.1 H (27.0-33.0) pg C-Reactive Protein 4.31 H (< or = 0.50) mg/dL Short CBC 12/29/24 Range/Units 10:01 WBC 7.2 (4.8-10.8) X10*3/uL Hgb 14.7 (14.0-18.0) g/dl Hct 44.8 (42.0-52.0) % Plt Count 231 (160-400) X10*3/uL BMP 12/29/24 10:01 Sodium 139 Potassium 4.1 Chloride 106 Carbon Dioxide 22 BUN 9 Creatinine 0.89 Calcium 8.9 All other labs normal. <BHARAT Carreno Last Filed: 12/29/24 13:47> Imaging Abdomen CT scan report/results: report reviewed and image reviewed <BHARAT Carreno Last Filed: 12/29/24 13:47> Additional studies: labs reviewed <BHARAT Carreno Last Filed: 12/29/24 13:47> Assessment and Plan (1) Colitis with rectal bleeding: Status: Acute <Elizabeth Lopez PA-C [employer] Last Filed: 12/29/24 13:47> 69 year old male with extensive PMH admitted for ischemic colitis. He underwent colonoscopy yesterday and then developed worsening of his lower abd pain and another episode of BRBPR. General surgery was therefore consulted. He feels somewhat improved this morning. He is tender in the lower abdomen, centrally but has no peritoneal signs. He is clinically appearing well. Would continue supportive measures with clear liquids for now until his pain improves. He presents with significant perioperative risks. Will continue to follow. Patient comfortable with plan. <Elizabeth Lopez PA-C [employer] Last Filed: 12/29/24 13:47> 69 year old male with extensive PMH admitted for ischemic colitis. He underwent colonoscopy yesterday and then developed worsening of his lower abd pain and another episode of BRBPR. General surgery was therefore consulted. He feels somewhat improved this morning. He is tender in the lower abdomen, centrally but has no peritoneal signs. He is clinically appearing well. Would continue supportive measures with clear liquids for now until his pain improves. He presents with significant perioperative risks. Will continue to follow. Patient comfortable with plan. Pleasant 69 year old male with complaints of abdominal pain starting on Friday after eating dinner. The pain increased and was associated with diarrhea initially, followed by blood. He had several episodes of bleeding after this especially after eating. Work up is suggestive of ischemic colitis, perhaps from a low flow state. Currently he is on a clear liquid diet and seems to be doing well with this. Recommend slowly advancing this diet. <Diego Rosales MD - Last Filed: 12/29/24 14:30> Procedures Date of Service Date of Service: 12/29/24 <Elizabeth Lopez PA-C - Last Filed: 12/29/24 13:47> 12/29/24 <Diego Rosales MD - Last Filed: 12/29/24 14:30>
--- NOTE | 2024-12-29 14:39 | P.PNIM_ITS ---
Subjective Subjective Date of Service: 12/29/24 Interval History: c/o crampy lower abd pain improved from severe exacerbation yesterday when taking solids; tolerating clear liquids at this point Review of Systems Review of Systems: Yes all other systems are reviewed and are negative Physical Exam 2 Vital Signs: Vital Signs: Last Vital Signs Temp 96.9 F 12/29/24 07:21 Pulse 61 12/29/24 07:21 Resp 17 12/29/24 07:21 BP 122/68 12/29/24 11:09 Pulse Ox 98 12/29/24 07:21 O2 Del Method Room Air 12/29/24 07:21 O2 Flow Rate 2 12/28/24 15:18 Oxygen Flow Rate 3 12/25/24 23:18 BMI result Body Mass Index 48.2 Gen: in no acute distress HEENT: sclera anicteric, moist mucus membranes Neck: supple Lungs: clear to auscultation bilaterally Heart: regular rate and rhythm, no murmurs Abd: soft, LLQ tenderness without rebound or guarding, obese, non-distended Ext: no edema Skin: warm/well-perfused Neuro: alert and oriented x3, no focal findings Psych: appropriate affect Objective Data Active Medications Acetaminophen (Acetaminophen 325 Mg Tablet) 650 mg PO Q6H PRN PRN Reason: Pain, Mild 1-3,fever,headache Amiodarone HCl (Amiodarone Hcl 200 Mg Tablet) 200 mg PO DAILY [facility] Last Admin: 12/29/24 08:30 Dose: 200 mg Documented By: MAHESH Ascorbic Acid (Ascorbic Acid 500 Mg Tablet) 1,000 mg PO DAILY [facility] Last Admin: 12/29/24 08:30 Dose: 1,000 mg Documented By: MAHESH Atorvastatin Calcium (Atorvastatin Calcium 80 Mg Tablet) 80 mg PO BEDTIME [facility] Last Admin: 12/28/24 20:48 Dose: 80 mg Documented By: JAMES Calcium Carbonate (Calcium Carbonate 750 Mg Tab.Chew) 750 mg PO Q4H PRN PRN Reason: Heartburn Docusate Sodium (Docusate Sodium 100 Mg Capsule) 100 mg PO BID [facility] Last Admin: 12/29/24 08:30 Dose: 100 mg Documented By: MAHESH Doxazosin Mesylate (Doxazosin Mesylate 2 Mg Tablet) 8 mg PO BEDTIME [facility]; Protocol Last Admin: 12/28/24 20:49 Dose: 8 mg Documented By: JAMES Duloxetine HCl (Duloxetine Hcl 60 Mg Capsule.Dr) 60 mg PO DAILY [facility] Last Admin: 12/29/24 08:30 Dose: 60 mg Documented By: MAHESH Hydromorphone HCl (Hydromorphone Hcl 1 Mg/Ml Syringe) 0.5 mg IVPUSH Q6H PRN; Protocol PRN Reason: Pain, Severe (Pain Scale 7-10) Last Admin: 12/28/24 18:02 Dose: 0.5 mg Documented By: MAHESH Lactic Acid (Ammonium Lactate 12 % Lotion 226 Gm Bottle) 1 appl TOPICAL BEDTIME [facility]; Protocol Last Admin: 12/28/24 20:49 Dose: 1 appl Documented By: JAMES Levofloxacin (Levofloxacin 500 Mg Tablet) 500 mg PO Q24H [facility] Stop: 01/06/25 06:59 Magnesium Hydroxide (Milk Of Magnesia 30 Ml Oral.Susp) 30 ml PO DAILY PRN PRN Reason: Constipation Melatonin (Melatonin 3 Mg Tablet) 6 mg PO BEDTIME PRN PRN Reason: Insomnia Methocarbamol (Methocarbamol 500 Mg Tablet) 500 mg PO BEDTIME PRN PRN Reason: Muscle Pain Metronidazole (Metronidazole 500 Mg Tablet) 500 mg PO Q8H [facility] Last Admin: 12/29/24 11:09 Dose: 500 mg Documented By: MAHESH Naloxone HCl (Naloxone Hcl 0.4 Mg/Ml Vial) 0.04 mg IVPUSH Q5M PRN PRN Reason: Excessive sedation or RR < 8 Ondansetron HCl (Ondansetron Hcl 4 Mg/2 Ml Vial) 4 mg IVPUSH Q6H PRN PRN Reason: Nausea and Vomiting Last Admin: 12/27/24 12:27 Dose: 4 mg Documented By: MAHESH Oxycodone HCl (Oxycodone Hcl Immed Release 5 Mg Tablet) 5 mg PO Q6H PRN PRN Reason: Pain, Moderate(Pain Scale 4-6) Last Admin: 12/28/24 20:48 Dose: 5 mg Documented By: JAMES Pregabalin (Pregabalin 150 Mg Capsule) 150 mg PO TID [facility] Last Admin: 12/29/24 08:30 Dose: 150 mg Documented By: MAHESH Ropinirole HCl (Ropinirole Hcl 2 Mg Tablet) 2 mg PO TID [facility] Last Admin: 12/29/24 08:30 Dose: 2 mg Documented By: MAHESH Sodium Biphosphate/Sodium Phosphate (Sodium Phosphate,[place]-Dibasic 133 Ml Enema) 133 ml [place] ONCE PRN PRN Reason: Pre-Op Surgical Prep Last Admin: 12/27/24 13:28 Dose: 133 ml Documented By: MAHESH Sodium Biphosphate/Sodium Phosphate (Sodium Phosphate,[place]-Dibasic 133 Ml Enema) 133 ml [place] ONCE PRN PRN Reason: Pre-Op Surgical Prep Last Admin: 12/27/24 13:35 Dose: 133 ml Documented By: MAHESH Sodium Chloride (0.9 % Sodium Chloride Flush 3 Ml Syringe) 3 ml IVFLUSH QSHIFT [facility] Last Admin: 12/29/24 08:30 Dose: 3 ml Documented By: MAHESH Spironolactone (Spironolactone 25 Mg Tablet) 25 mg PO BID [facility]; Protocol Last Admin: 12/29/24 11:09 Dose: 25 mg Documented By: MAHESH Zolpidem Tartrate (Zolpidem Tartrate 5 Mg Tablet) 10 mg PO BEDTIME PRN PRN Reason: Sleep Labs 12/29/24 10:01 12/29/24 10:01 Labs: Laboratory Results - last 24 hr 12/28/24 12/29/24 17:31 10:01 MCV 100.9 H MCH 33.1 H MCHC 32.8 RDW 13.4 Plt Count 231 MPV 10.8 Absolute Nucleated RBC 0.000 Nucleated RBC % (auto) 0.0 Anion Gap 15 Estim Creat Clear Calc 141.1 Estimated GFR > 60 Random Glucose 94 Lactic Acid 2.0 Calcium 8.9 Lactate Dehydrogenase 215 C-Reactive Protein 4.31 H Assessment and Plan (1) Colitis with rectal bleeding: Status: Acute Plan d4, 69yo F with pAF not on AC s/p Watchman device diastolic HF, chronic lymphedema, HTN, chronic hypoxia due to COPD on 3L hO2, JEFFRY on CPAP, hypothyroidism, OAB, morbid obesity; presenting with LLQ pain and BRBPR, found to have sigmoid colitis sigmoid ischemic colitis - 12/26- levofloxacin + metronidazole - GI consulted, Dr Mcclain performed sigmoidoscopy 12/27, which showed: Edema, erythema , submucosal hemorrhages and circumferential ulceration covered with white exudate with serosanguineous fluid in the colon - likely due to ischemic colitis Moderate diverticulosis seen in the sigmoid colon Moderate hemorrhoids on retroflexed exam. - Gen Surg consulted, agrees with current management - continue clear liquids 1 more day, then trial of solids tomorrow - continue to hold ASA/clopidogrel; discuss with GI resumption chronic HFpEF - bumetanide held; appears euvolemic; resume spironolactone pAF - continue amiodarone; has Watchman device placed August 2024; DAPT on hold as above HTN - resume spironolactone HLD - statin RLS - ropinirole COPD - continue prn albuterol JEFFRY - CPAP at night morbid obesity - diet/exercise counseling VTE ppx: SCDs dispo: eventual home In my clinical judgment, the patient requires continued inpatient hospitalization for the following reasons: bowel rest Total time managing care of this patient today: 35 minutes. Quality Stroke Does the patient have a stroke diagnosis?: No VTE Prior VTE?: No VTE Risk Level:: Medical - moderate - high VTE Device Contraindication: N/A - Device Ordered VTE Drug Contraindication: Treatment Not Indicated
--- NOTE | 2024-12-29 15:21 | MHC.CM.PN ---
EMR REVIEWED AND PER MD ROUNDS, PT IS NOT YET MEDICALLY CLEARED FOR DC (PAIN MNGMT, ADVANCING DIET) CM WILL CONTINUE TO FOLLOW FOR ANY CHANGE TO DC PLAN.
[2024-12-29 15:25] VITALS: BP 140/68; PULSE 84; RESP 18; TEMP 36.6; O2SAT 98
[2024-12-29 19:38] VITALS: BP 136/77; PULSE 80; RESP 18; TEMP 36.4; O2SAT 99
[2024-12-29] MEDS: Ammonium Lactate 12 % Lotion 226 GM BOTTLE 1 APPL TOPICAL (20:35)
[2024-12-30 03:59] VITALS: BP 119/61; PULSE 61; RESP 18; TEMP 36.2; O2SAT 98
[2024-12-30 06:28] LABS: Anion Gap 9 (12-20); Blood Urea Nitrogen 8 mg/dL (9-16); Calcium 8.7 mg/dL (8.4-10.2); Carbon Dioxide 29 mmol/L (22-29); Chloride 107 mmol/L (96-108); Creatinine Clr Calc Pharmacy 151.3; Estimated Glomerular Filt Rate > 60; Potassium 4.3 mmol/L (3.3-5.1); Sodium 141 mmol/L (135-145)
[2024-12-30 06:31] LABS: Hematocrit 38.8 % (42.0-52.0); Hemoglobin 13.0 g/dl (14.0-18.0); Mean Corpuscular HGB Conc 33.5 g/dl (31.0-36.0); Mean Corpuscular Hemoglobin 33.8 pg (27.0-33.0); Mean Corpuscular Volume 100.8 fL (80.0-98.0); NRBC Abs Auto 0.000 X10*3/uL (0.0-0.012); NRBC Pct Auto 0.0 /100WBC (0.0-0.2); Platelet Count 270 X10*3/uL (160-400); Red Blood Count 3.85 X10*6/uL (4.60-5.80); White Blood Count 6.0 X10*3/uL (4.8-10.8)
[2024-12-30 07:03] LABS: Folate 5.5 ng/mL (> or = 4.0); Vitamin B12 1143 pg/mL (200-900)
[2024-12-30 07:44] VITALS: BP 108/68; PULSE 72; RESP 18; TEMP 36; O2SAT 98
[2024-12-30] MEDS: 0.9 % Sodium Chloride Flush 3 ML SYRINGE IVFLUSH (09:15)
--- NOTE | 2024-12-30 10:54 | PM.PNGS ---
Subjective Subjective Date of Service: 12/30/24 Interval history: patient tolerated clear liquids with only a small amount of bloody discharge and cramping. Plan for regular diet today. Physical Exam Vital Signs: Vital Signs: Last Vital Signs Temp 96.8 F 12/30/24 07:44 Pulse 72 12/30/24 07:44 Resp 18 12/30/24 07:44 BP 108/68 12/30/24 07:44 Pulse Ox 98 12/30/24 07:44 O2 Del Method Nasal Cannula 12/30/24 07:44 O2 Flow Rate 2 12/30/24 07:44 Oxygen Flow Rate 3 12/25/24 23:18 BMI result Body Mass Index 48.2 Const: General: comfortable Nutritional Appearance: well nourished Orientation/consciousness: patient oriented x3 Resp: Effort & Inspection: normal respiratory effort, no audible wheezes, no cough and no respiratory distress GI: Inspection: Yes normal to inspection Palpation (GI): Soft to palpation, nontender and no guarding Neuro: General: patient oriented x3 Extrem: Other: Bilateral leg edema Objective Data Active Medications Acetaminophen (Acetaminophen 325 Mg Tablet) 650 mg PO Q6H PRN PRN Reason: Pain, Mild 1-3,fever,headache Albuterol Sulfate (Albuterol Sulfate 90 Mcg 8 Gm Inhaler) 2 puff INHALE Q6H PRN PRN Reason: for wheezing Amiodarone HCl (Amiodarone Hcl 200 Mg Tablet) 200 mg PO DAILY [facility] Last Admin: 12/30/24 09:16 Dose: 200 mg Documented By: YADI Ascorbic Acid (Ascorbic Acid 500 Mg Tablet) 1,000 mg PO DAILY [facility] Last Admin: 12/30/24 09:18 Dose: Not Given Documented By: YADI Non-Admin Reason: Patient Refused Atorvastatin Calcium (Atorvastatin Calcium 80 Mg Tablet) 80 mg PO BEDTIME [facility] Last Admin: 12/29/24 20:33 Dose: 80 mg Documented By: DON Calcium Carbonate (Calcium Carbonate 750 Mg Tab.Chew) 750 mg PO Q4H PRN PRN Reason: Heartburn Docusate Sodium (Docusate Sodium 100 Mg Capsule) 100 mg PO BID [facility] Last Admin: 12/30/24 09:16 Dose: Not Given Documented By: YADI Non-Admin Reason: Patient Refused Doxazosin Mesylate (Doxazosin Mesylate 2 Mg Tablet) 8 mg PO BEDTIME MICHELLE; Protocol Last Admin: 12/29/24 20:34 Dose: 8 mg Documented By: DON Duloxetine HCl (Duloxetine Hcl 60 Mg Capsule.Dr) 60 mg PO DAILY [facility] Last Admin: 12/30/24 09:17 Dose: 60 mg Documented By: YADI Hydromorphone HCl (Hydromorphone Hcl 1 Mg/Ml Syringe) 0.5 mg IVPUSH Q6H PRN; Protocol PRN Reason: Pain, Severe (Pain Scale 7-10) Last Admin: 12/28/24 18:02 Dose: 0.5 mg Documented By: MAHESH Lactic Acid (Ammonium Lactate 12 % Lotion 226 Gm Bottle) 1 appl TOPICAL BEDTIME MICHELLE; Protocol Last Admin: 12/29/24 20:35 Dose: 1 appl Documented By: DON Levofloxacin (Levofloxacin 500 Mg Tablet) 500 mg PO Q24H [facility] Stop: 01/06/25 06:59 Last Admin: 12/30/24 06:11 Dose: 500 mg Documented By: DON Magnesium Hydroxide (Milk Of Magnesia 30 Ml Oral.Susp) 30 ml PO DAILY PRN PRN Reason: Constipation Melatonin (Melatonin 3 Mg Tablet) 6 mg PO BEDTIME PRN PRN Reason: Insomnia Methocarbamol (Methocarbamol 500 Mg Tablet) 500 mg PO BEDTIME PRN PRN Reason: Muscle Pain Metronidazole (Metronidazole 500 Mg Tablet) 500 mg PO Q8H [facility] Last Admin: 12/30/24 03:09 Dose: 500 mg Documented By: DON Naloxone HCl (Naloxone Hcl 0.4 Mg/Ml Vial) 0.04 mg IVPUSH Q5M PRN PRN Reason: Excessive sedation or RR < 8 Ondansetron HCl (Ondansetron Hcl 4 Mg/2 Ml Vial) 4 mg IVPUSH Q6H PRN PRN Reason: Nausea and Vomiting Last Admin: 12/27/24 12:27 Dose: 4 mg Documented By: MAHESH Oxycodone HCl (Oxycodone Hcl Immed Release 5 Mg Tablet) 5 mg PO Q6H PRN PRN Reason: Pain, Moderate(Pain Scale 4-6) Last Admin: 12/28/24 20:48 Dose: 5 mg Documented By: JAMES Pregabalin (Pregabalin 150 Mg Capsule) 150 mg PO TID [facility] Last Admin: 12/30/24 09:17 Dose: 150 mg Documented By: YADI Ropinirole HCl (Ropinirole Hcl 2 Mg Tablet) 2 mg PO TID [facility] Last Admin: 12/30/24 09:16 Dose: 2 mg Documented By: YADI Sodium Biphosphate/Sodium Phosphate (Sodium Phosphate,[place]-Dibasic 133 Ml Enema) [address] ONCE PRN PRN Reason: Pre-Op Surgical Prep Last Admin: 12/27/24 13:28 Dose: 133 ml Documented By: MAHESH Sodium Biphosphate/Sodium Phosphate (Sodium Phosphate,[place]-Dibasic 133 Ml Enema) [address] ONCE PRN PRN Reason: Pre-Op Surgical Prep Last Admin: 12/27/24 13:35 Dose: 133 ml Documented By: MAHESH Sodium Chloride (0.9 % Sodium Chloride Flush 3 Ml Syringe) 3 ml IVFLUSH [facility] Last Admin: 12/30/24 09:15 Dose: 3 ml Documented By: YADI Spironolactone (Spironolactone 25 Mg Tablet) 25 mg PO BID [facility]; Protocol Last Admin: 12/30/24 09:17 Dose: 25 mg Documented By: YADI Zolpidem Tartrate (Zolpidem Tartrate 5 Mg Tablet) 10 mg PO BEDTIME PRN PRN Reason: Sleep Labs 12/30/24 05:25 12/30/24 05:25 Labs: Laboratory Results - last 24 hr 12/30/24 05:25 MCV 100.8 H MCH 33.8 H MCHC 33.5 RDW 13.4 Plt Count 270 MPV 10.2 Absolute Nucleated RBC 0.000 Nucleated RBC % (auto) 0.0 Anion Gap 9 L Estim Creat Clear Calc 151.3 Estimated GFR > 60 Random Glucose 86 Calcium 8.7 Vitamin B12 1143 H Folate 5.5 Procedures Date of Service Date of Service: 12/30/24 Progress Note: A&P Assessment and plan (1) Colitis with rectal bleeding: Status: Acute Plan patient with probable ischemic colitis gradually improving, tolerating clear liquids. Agree with advancing diet. Suggested eating multiple small meals with easily digestible foods. Time Spent With Patient Time: Total time managing care of this patient today ____ minutes. Quality Stroke Does the patient have a stroke diagnosis?: No VTE Prior VTE?: No VTE Risk Level:: Medical - moderate - high VTE Device Contraindication: N/A - Device Ordered VTE Drug Contraindication: Treatment Not Indicated
--- NOTE | 2024-12-30 13:00 | PM.DS ---
DS: Providers Provider Date of Service: 12/30/24 Date of admission: 12/26/24 03:31 Date of discharge: 12/30/24 Primary care physician: Diego Augustine [facility]- Consults: 12/26/24 04:35 Consult to Gastroenterology Routine Consulting Provider: Nichole Mcclain Reason for consultation: rectal bleeding Has provider been notified: No 12/28/24 17:08 Consult to General Surgery Routine Consulting Provider: [facility] Reason for consultation: ischemic colitis, continued pain and bleeding DS: Diagnosis Discharge Diagnosis (1) Ischemic colitis: Status: Acute (2) Morbid obesity: Status: Acute DS: Summary Hospital Course Hospital Course: From the history and physical by the admitting hospitalist, AYSHA Sosa, 12/26/24: 'pt is a 69-year-old male with PMHx paroxysmal AFib no anticoagulation, chronic diastolic CHF, chronic lymphedema, HTN, chronic hypoxic respiratory failure due to COPD on 3 L of home oxygen, JEFFRY on CPAP, hypothyroidism, overactive bladder, morbid obesity, who presented to the ED due to lower abd pain with bloody diarrhea. assocaited nausea and vomiting. no hematemeis. reports there was a lot of blood yesterday when he had severe diarrhea. sx began 2 days ago. no fever, chills, sick contacts or travel. no upper respiratory or urinary sx.' 69yo F with pAF not on AC s/p Watchman device but now on DAPT, diastolic HF, chronic lymphedema, HTN, chronic hypoxia due to COPD on 3L hO2, JEFFRY on CPAP, hypothyroidism, OAB, morbid obesity; presenting with LLQ pain and BRBPR, found to have sigmoid colitis, likely ischemic; admitted to the medical-surgical unit with General Surgery and Gastroenterology consultations. Treated with bowel rest and IV, then PO, levofloxacin/metronidazole with gradual improvement. Dr Mcclain performed sigmoidoscopy 12/27, which showed: Edema, erythema , submucosal hemorrhages and circumferential ulceration covered with white exudate with serosanguineous fluid in the colon - likely due to ischemic colitis Moderate diverticulosis seen in the sigmoid colon Moderate hemorrhoids on retroflexed exam. Once he tolerated regular diet, he was discharged on cefuroxime and metronidazole. ASA/clopidogrel had been held on admission but then resumed on discharge. No further GI bleeding noted. Should follow up with Gastroenterology and Primary Care in 1-2 weeks. Time Attestation Discharge Coordination Time (in mins): 40 Quality: Safe Use of Opioids Does Pt have an Active Cancer Diagnosis on the Problem List?: No Quality: Stroke Does the patient have a stroke diagnosis?: No Physical Exam Vital Signs: Vital Signs: Last Vital Signs Temp 96.8 F 12/30/24 07:44 Pulse 72 12/30/24 07:44 Resp 18 12/30/24 07:44 BP 108/68 12/30/24 07:44 Pulse Ox 98 12/30/24 07:44 O2 Del Method Nasal Cannula 12/30/24 07:44 O2 Flow Rate 2 12/30/24 07:44 Oxygen Flow Rate 3 12/25/24 23:18 BMI result Body Mass Index 48.2 Gen: in no acute distress HEENT: sclera anicteric, moist mucus membranes Neck: supple Lungs: clear to auscultation bilaterally Heart: regular rate and rhythm, no murmurs Abd: soft, LLQ tenderness without rebound or guarding, obese, non-distended Ext: no edema Skin: warm/well-perfused Neuro: alert and oriented x3, no focal findings Psych: appropriate affect DS: Data Data Completed and Pending Completed studies during hospitalization [Text1]: Laboratory Results WBC 6.0 X10*3/uL (4.8-10.8) 12/30/24 05:25 RBC 3.85 X10*6/uL (4.60-5.80) L 12/30/24 05:25 Hgb 13.0 g/dl (14.0-18.0) L 12/30/24 05:25 Hct 38.8 % (42.0-52.0) L 12/30/24 05:25 MCV 100.8 fL (80.0-98.0) H 12/30/24 05:25 MCH 33.8 pg (27.0-33.0) H 12/30/24 05:25 MCHC 33.5 g/dl (31.0-36.0) 12/30/24 05:25 RDW 13.4 % (11.0-16.0) 12/30/24 05:25 Plt Count 270 X10*3/uL (160-400) 12/30/24 05:25 MPV 10.2 fL (9.4-12.4) 12/30/24 05:25 Immature Gran % (Auto) 0.4 % (0.0-0.4) 12/28/24 05:27 Neut % (Auto) 69.0 % (45-73) 12/28/24 05:27 Lymph % (Auto) 16.9 % (20-40) L 12/28/24 05:27 Avery % (Auto) 7.7 % (2-11) 12/28/24 05:27 Eos % (Auto) 5.3 % (0-4) H 12/28/24 05:27 Baso % (Auto) 0.7 % (0-2) 12/28/24 05:27 Lymph # (Auto) 1.4 X10*3/uL (1.2-4.9) 12/28/24 05:27 Avery # (Auto) 0.7 X10*3/uL (0.1-1.2) 12/28/24 05:27 Eos # (Auto) 0.5 X10*3/uL (0.0-0.4) H 12/28/24 05:27 Baso # (Auto) 0.1 X10*3/uL (0.0-0.2) 12/28/24 05:27 Abs Immat Gran (auto) 0.03 X10*3/uL (0.00-0.03) 12/28/24 05:27 Absolute Neuts (auto) 5.9 x10*3/uL (2.0-8.3) 12/28/24 05:27 Absolute Nucleated RBC 0.000 X10*3/uL (0.0-0.012) 12/30/24 05:25 Nucleated RBC % (auto) 0.0 /100WBC (0.0-0.2) 12/30/24 05:25 Sodium 141 mmol/L (135-145) 12/30/24 05:25 Potassium 4.3 mmol/L (3.3-5.1) 12/30/24 05:25 Chloride 107 mmol/L (96-108) 12/30/24 05:25 Carbon Dioxide 29 mmol/L (22-29) 12/30/24 05:25 Anion Gap 9 (12-20) L 12/30/24 05:25 BUN 8 mg/dL (9-16) L 12/30/24 05:25 Creatinine 0.83 mg/dL (0.5-1.4) 12/30/24 05:25 Estim Creat Clear Calc 151.3 12/30/24 05:25 Estimated GFR > 60 12/30/24 05:25 Random Glucose 86 mg/dL (60-115) 12/30/24 05:25 Lactic Acid 2.0 mmol/L (0.5-2.0) 12/28/24 17:31 Calcium 8.7 mg/dL (8.4-10.2) 12/30/24 05:25 Total Bilirubin 0.8 mg/dL (0.0-1.0) 12/25/24 23:35 AST 23 U/L (5-37) 12/25/24 23:35 ALT 13 U/L (0-40) 12/25/24 23:35 Alkaline Phosphatase 90 U/L (39-117) 12/25/24 23:35 Lactate Dehydrogenase 215 U/L (118-273) 12/28/24 17:31 C-Reactive Protein 4.31 mg/dL (< or = 0.50) H 12/29/24 10:01 Total Protein 7.0 g/dL (6.5-8.0) 12/25/24 23:35 Albumin 4.1 g/dL (3.5-5.0) 12/25/24 23:35 Vitamin B12 1143 pg/mL (200-900) H 12/30/24 05:25 Folate 5.5 ng/mL (> or = 4.0) 12/30/24 05:25 Stool Occult Blood POSITIVE (NEGATIVE) 12/26/24 00:33 Stl C. cayetanensis PCR Not Detected (Not Detect.) 12/26/24 00:33 Stool Rotavirus A PCR Not Detected (Not Detect.) 12/26/24 00:33 Stl Adenov F 40/41 PCR Not Detected (Not Detect.) 12/26/24 00:33 Stool Astrovirus (PCR) Not Detected (Not Detect.) 12/26/24 00:33 Stool Campylobacter PCR Not Detected (Not Detect.) 12/26/24 00:33 Stool Cryptosporidium PCR Not Detected (Not Detect.) 12/26/24 00:33 Stl Sh Tox Pr E STEC PCR Not Detected (Not Detect.) 12/26/24 00:33 Stool E coli O157 PCR Not applicable (Not Detect.) 12/26/24 00:33 Stl Enterotoxigenic E PCR Not Detected (Not Detect.) 12/26/24 00:33 Stool EPEC (PCR) Not Detected (Not Detect.) 12/26/24 00:33 Stool EAEC (PCR) Not Detected (Not Detect.) 12/26/24 00:33 Stl E. histolytica PCR Not Detected (Not Detect.) 12/26/24 00:33 Stool Giardia Lamblia PCR Not Detected (Not Detect.) 12/26/24 00:33 Stl P. shigelloides PCR Not Detected (Not Detect.) 12/26/24 00:33 Stool Salmonella PCR Not Detected (Not Detect.) 12/26/24 00:33 Stool Sapovirus (PCR) Not Detected (Not Detect.) 12/26/24 00:33 Stl Shigella/EIEC PCR Not Detected (Not Detect.) 12/26/24 00:33 St Y.enterocolitica PCR Not Detected (Not Detect.) 12/26/24 00:33 Stool Vibrio (PCR) Not Detected (Not Detect.) 12/26/24 00:33 Stl Vibrio cholerae PCR Not Detected (Not Detect.) 12/26/24 00:33 Stl Norovirus GI/GII PCR Not Detected (Not Detect.) 12/26/24 00:33 Blood Type O Positive 12/26/24 12:58 Antibody Screen NEGATIVE 12/26/24 12:58 CT A/P 12/26/24 1. Findings consistent with colitis involving the sigmoid colon. 2. Fat stranding around the bladder. Correlate with urinalysis for cystitis. 3. Cholelithiasis. 4. Colonic diverticulosis. 5. Additional chronic findings as above. CT A/P 12/28/24 1. Similar-appearing nonspecific segmental colitis involving the sigmoid colon. 2. No other acute abnormalities or significant change compared with the prior exam. Discharge Plan Discharge Anticipated Discharge Date/Time: 12/30/24 12:45 Patient Disposition: Home, Self-Care Discharge Diagnosis: Colitis Referrals: Diego Augustine, [facility] [Primary Care Provider, Internal Medicine] - 1 Week Nichole Mcclain MD [Physician, Gastroenterology] - 2 Weeks Discharge Medications: New metronidazole 500 mg Tablet 500 mg PO Q8H Qty: 9 0RF cefuroxime axetil 500 mg tablet 500 mg PO BID Qty: 6 0RF Continued (DME) walker Misc See Rx Instructions .Route Qty: 1 0RF Rx Instructions: daily use (rolling sitting walker-bariatric size needed) (DME) Powered bariatric recliner See Rx Instructions .Route .MEDSUPPLY Qty: 1 0RF Rx Instructions: As directed bumetanide 2 mg tablet 2 mg PO DAILY Qty: 90 3RF docusate sodium [Colace] 100 mg capsule 100 mg PO BID Qty: 180 1RF (DME) hospital bed Kit See Rx Instructions .Route Qty: 1 0RF Rx Instructions: Bariatric hospital bed amiodarone 200 mg tablet 200 mg PO DAILY 90 Days Qty: 90 3RF duloxetine 60 mg capsule,delayed release(DR/EC) 60 mg PO DAILY Qty: 90 0RF ropinirole 2 mg tablet 2 mg PO TID Qty: 270 1RF pregabalin 150 mg capsule 150 mg PO TID 90 Days Qty: 270 2RF Anoro Ellipta 62.5-25 mcg/actuation blister with device 1 inh PO DAILY 90 Days Qty: 3 3RF atorvastatin 80 mg tablet 80 mg PO BEDTIME 90 Days Qty: 90 1RF aspirin 81 mg Tablet,Delayed Release (Dr/Ec) 81 mg PO DAILY cholecalciferol (vitamin D3) 1,250 mcg (50,000 unit) capsule 1,250 mcg PO FR@0900 albuterol sulfate 90 mcg/actuation HFA aerosol inhaler 2 puff PO Q6H PRN (Reason: for wheezing) spironolactone 25 mg tablet 25 mg PO BID doxazosin 8 mg tablet 8 mg PO BEDTIME 90 Days Qty: 90 1RF finasteride 5 mg tablet 5 mg PO DAILY 90 Days Qty: 90 1RF ascorbic acid (vitamin C) 1,000 mg tablet 1 g PO DAILY 90 Days Qty: 90 1RF methenamine hippurate 1 gram tablet 1 g PO DAILY 90 Days Qty: 90 1RF zolpidem 10 mg tablet 10 mg PO BEDTIME PRN (Reason: sleep) Qty: 30 2RF Wegovy 0.5 mg/0.5 mL pen injector 0.5 mg subcut FR@0900 Rx Instructions: administer weeks 5 through 8 of therapy clopidogrel [Plavix] 75 mg tablet 75 mg PO DAILY ammonium lactate 12 % lotion 1 appl topical BEDTIME methocarbamol 500 mg tablet 500 mg PO BEDTIME PRN (Reason: Muscle Pain) Diet: Low salt diet Activity on Discharge: As tolerated Stand Alone Forms: Patient Portal Discharge page Print Language: Trinidadian Care Plan Goals: gastrointestinal health Health Concerns: Colitis Plan of Treatment: resume aspirin and clopiodgrel take antibiotics for 3 days: metronidazole 500 mg 3x a day, cefuroxime 500 mg 2x a day follow up with [facility] in 2 weeks Please follow up with your primary care doctor within 1 week. Return to the hospital if you experience recurrent or worsening symptoms. Assessment: See Discharge Summary.
--- NOTE | 2024-12-30 14:31 | MHC.CM.PN ---
DP: PT HAS BEEN MEDICALLY CLEARED FOR DC HOME, NO SERVICES. [facility] WILL TRANSPORT. FINAL IMM ISSUED
--- NOTE | 2024-12-31 13:17 | P.CDIM_ITS ---
PROVIDER RESPONSE TEXT: To clarify, the appropriate diagnosis supported by the clinical indicators: Other (explain): morBid oBesity QUERY TEXT: PHYSICIAN'S DOCUMENTATION REQUEST Date of Query: 12/30/2024 11:48 AM EST Patient Name: Dinh Craven Admit Date: 12/26/2024 Dear Yolanda Rivera MD, A review of the medical record indicates additional documentation may be needed. Please review below and update the documentation accordingly. Clinical Indicators: Height: 6ft 4in Weight: 179.6kg BMI: 48.2 Other Clinical Notes Supporting Significance of the BMI: Nursing notes Height and Weight: Extreme obesity Class III If possible, please provide an associated diagnosis related to the abnormal BMI, such as: Morbid obesity due to excess calories Obesity Class I, II, III Severe or Morbid Obesity With alveolar hypoventilation or Obesity hypoventilation syndrome Other (explain) Clinically unable to determine (explain) Thank you, Ember Colvin, CCS, CDIS Use of terms such as suspected, likely, concern for, or probable (associated with a specific diagnosis that is being evaluated, monitored, or treated as if it exists) are acceptable and can be coded in the inpatient setting, when documented at the time of discharge. Please use your independent medical judgment in providing your response. THIS QUERY IS PART OF THE PERMANENT MEDICAL RECORD
== END 2024-12-30 14:58 | disposition home or self-care (01) | DRG 393 ==
LOC: HO.ED 12-26 03:32 → HO.EDOVER 12-26 03:50 → HO.S3 12-26 13:15
PROVIDERS: Emergency Medicine; Internal Medicine Gastroenterology; Nurse Practitioner Acute Care; Admitting Provider Physician Assistant; Emergency Provider Emergency Medicine; PCP Nurse Practitioner Family; Visit Provider Family Medicine
PROC: 0DJD8ZZ Inspection of Lower Intestinal Tract, Via Natural or Artificial Opening Endoscopic (ICD-10-PCS; CPT 45330; principal; 2024-12-27 16:40)
DX: K55.9 Vascular disorder of intestine, unspecified (principal); K57.31 Diverticulosis of large intestine without perforation or abscess with bleeding; I50.32 Chronic diastolic (congestive) heart failure; J96.11 Chronic respiratory failure with hypoxia; Z68.42 Body mass index [BMI] 45.0-49.9, adult; E66.01 Morbid (severe) obesity due to excess calories; G25.81 Restless legs syndrome; I48.0 Paroxysmal atrial fibrillation; G47.33 Obstructive sleep apnea (adult) (pediatric); E03.9 Hypothyroidism, unspecified; K64.8 Other hemorrhoids; Z99.81 Dependence on supplemental oxygen; Z79.02 Long term (current) use of antithrombotics/antiplatelets; Z79.82 Long term (current) use of aspirin; Z79.899 Other long term (current) drug therapy
CPT/HCPCS: 36415; 74176; 74177; 80048; 80053; 82272; 82607; 82746; 83605; 83615; 85014; 85018; 85025; 85027; 86140; 86850; 86900; 86901; 87040; 87507; 88305; 99285; J1171; J1308; J1836; J1956; J2270; J2405; J2704; J2765; J3010; J7120; Q9967

== ENCOUNTER → 2024-12-26 00:20 | Outpatient (BNV) | payer MEDICARE, SELFPAY | PROVIDERS: Emergency Provider Emergency Medicine; PCP Nurse Practitioner Family; Visit Provider Radiology Diagnostic Radiology | DX: K80.20 Calculus of gallbladder without cholecystitis without obstruction (principal); K57.30 Diverticulosis of large intestine without perforation or abscess without bleeding | CPT/HCPCS: 74177 ==

== ENCOUNTER → 2024-12-26 03:31 | Outpatient (BNV) | payer MEDICARE, SELFPAY | PROVIDERS: Admitting Provider Physician Assistant; Emergency Provider Emergency Medicine; PCP Nurse Practitioner Family; Visit Provider Physician Assistant Surgical | DX: K52.9 Noninfective gastroenteritis and colitis, unspecified (principal); K62.5 Hemorrhage of anus and rectum | CPT/HCPCS: 99222; 99232 ==

== ENCOUNTER → 2024-12-26 03:31 | Outpatient (BNV) | payer MEDICARE, SELFPAY | PROVIDERS: Admitting Provider Physician Assistant; Emergency Provider Emergency Medicine; PCP Nurse Practitioner Family; Visit Provider Nurse Practitioner Acute Care | DX: K52.9 Noninfective gastroenteritis and colitis, unspecified (principal); K62.5 Hemorrhage of anus and rectum | CPT/HCPCS: 99223; 99232; 99499 ==

== ENCOUNTER → 2024-12-26 03:31 | Outpatient (BNV) | payer MEDICARE, SELFPAY | PROVIDERS: Admitting Provider Physician Assistant; Emergency Provider Emergency Medicine; PCP Nurse Practitioner Family; Visit Provider Internal Medicine Gastroenterology | DX: K52.9 Noninfective gastroenteritis and colitis, unspecified (principal); K62.5 Hemorrhage of anus and rectum | CPT/HCPCS: 99222 ==

== ENCOUNTER 2025-01-06 12:17 | Outpatient (AMB) | payer MEDICARE, SELFPAY ==
--- NOTE | 2025-01-06 12:56 | MHC.OFFVIS ---
Vital Signs 01/06/25 13:06 Height 6 ft 4 in Weight 384 lb 11.306 oz BMI 46.8 BP 130/82 Blood Pressure Location Lt brachial Position Sitting Pulse 75 Pulse Source Pulse Oximeter Pulse Oximetry (%) 98 Oxygen Delivery Method Room Air Intake Visit Reasons: follow up Intake Note: Patient presents for RA follow up. Allergies No Known Allergies (No Known Allergies*) Allergy (Verified 01/06/25 13:04) Medication List - Last Reconciled 01/06/25 by Gita Urias MD albuterol sulfate 90 mcg/actuation 2 puffs PO Q6H PRN amiodarone 200 mg PO DAILY 90 days ammonium lactate 12% 1 appl topical BEDTIME Anoro Ellipta 62.5-25 mcg/actuation (umeclidinium-vilanterol) 1 inh PO DAILY 90 days NS ascorbic acid (vitamin C) 1 g PO DAILY 90 days aspirin 81 mg PO DAILY atorvastatin 80 mg PO BEDTIME 90 days bumetanide 2 mg PO DAILY cefuroxime axetil 500 mg PO BID cholecalciferol (vitamin D3) 1,250 mcg PO FR@0900 clopidogrel (Plavix) 75 mg PO DAILY docusate sodium (Colace) 100 mg PO BID doxazosin 8 mg PO BEDTIME 90 days duloxetine 60 mg PO DAILY finasteride 5 mg PO DAILY 90 days hospital bed Bariatric hospital bed methenamine hippurate 1 g PO DAILY 90 days methocarbamol 500 mg PO BEDTIME PRN metronidazole 500 mg PO Q8H [Powered bariatric recliner As directed] pregabalin 150 mg PO TID 90 days ropinirole 2 mg PO TID secukinumab 150 mg subcut Q4W secukinumab 150 mg subcut QWEEK semaglutide (weight loss) (Wegovy) 0.5 mg subcut FR@0900 spironolactone 25 mg PO BID walker daily use (rolling sitting walker-bariatric size needed) zolpidem 10 mg PO BEDTIME PRN HPI Comments Details: Patient is a 69-year-old male with JEFFRY on CPAP, 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, chronic diastolic heart failure, COPD, AFib, polyarticular osteoarthritis status post left knee replacement here today for follow up Interval History: Patient last seen 06/28/24 with me - Not on DMARDs - Exam consistent with OA - Recommended conservative measures Today - Not on DMARDs - Dactylitis of the right 5th digit - Hand pain - Sees ortho for his knee pain, but cannot get replacement until he loses another 100lbs, on GLP 1 injections Rheumatologic History: Initially thought to have OA but then developed hand swelling with synovitis Methotrexate and leflunomide contraindicated as patient is morbidly obese, has restrictive lung disease as well as COPD on home oxygen and his risk of respiratory compromise if he develops methotrexate/leflunomide induced pneumonitis is quite high. He is also on amiodarone and there is risk of added hepatotoxicity given that patient is on amiodarone Hydroxychloroquine is relative contraindicated as patient has AFib on amiodarone and there is risk of QTC prolongation and worsening of arrhythmias Sulfasalazine can also cause hepatotoxicity when added to amiodarone TNF inhibitors such as adalimumab, etanercept and others would be contraindicated due to his history of heart failure Orencia not effective Actemra not effective Initial history with Dr. Acosta: This is a 67-year-old male presents for evaluation of multiple joint pain. Patient states that he has diffuse pain everywhere. Including neck, shoulders, hands, knees, ankles and feet. States that he had left knee replacement 10 years ago. He has severe right knee osteoarthritis and receives periodic steroid injections which helped for 1 or 2 months. States that he has severe bilateral hand stiffness. It lasts all day. Associated with swelling. He can hardly make a fist. States that he used to take naproxen which was quite helpful for all his joint pain but he is no longer able to take it due to being on Eliquis for AFib Of note patient has restrictive lung disease and is on home oxygen. He also has a CPAP machine for sleep apnea Current Rheumatology Medication(s): [facility] Medical History (Updated 12/30/24 @ 13:01 by Yolanda Rivera MD) Morbid obesity Morbid (severe) obesity due to excess calories Presence of Watchman left atrial appendage closure device Visit for suture removal Rib pain on left side Post-COVID syndrome Traumatic perinephric hematoma of left kidney Chronic diastolic heart failure JEFFRY on CPAP Anemia Sepsis COPD (chronic obstructive pulmonary disease) Acute respiratory failure due to COVID-19 Community acquired pneumonia Viral sepsis Fatigue Acute on chronic diastolic CHF (congestive heart failure) COVID Paroxysmal atrial fibrillation Testicular swelling Osteoarthritis of right knee Melanoma History of cardioversion Hereditary lymphedema Venous insufficiency Lymphedema COPD (chronic obstructive pulmonary disease) Sensory neuropathy COVID-19 Respiratory failure with hypoxia Restrictive lung disease MATUTE (dyspnea on exertion) Chronic cystitis Bladder outlet obstruction Restless leg syndrome Traumatic complete tear of right rotator cuff Injury of right rotator cuff History of diverticulitis History of umbilical hernia Surgical History S/P shoulder surgery Status post total left knee replacement Hx of colonoscopy History of appendectomy History of arthroscopy of left knee Family History Father Arthritis Diabetes Mother Arthritis Kidney stones Family/Other Arthritis Sister No problems noted. Sister No problems noted. Son No problems noted. Social History Household Members: Spouse Household Members Other:: Housing: Condominium Do you presently have visiting nurse or other home services: No Alcohol intake: current Alcohol intake frequency: holidays/special occasions only Alcohol type: beer Comment: Refused bed alarm due to alarm sensitivity when changing positions. 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 Cognitive needs: No Hearing needs: No Vision needs: No Review of Systems Narrative Review of Systems Constitutional: Denies fever, chills, weight loss ENT: Denies vision changes, eye pain or eye redness, dental caries, dry mouth GI: Denies nausea, vomiting, diarrhea, abdominal pain, change in BM Pulm: Denies SOB, MATUTE, hemoptysis, wheezing Cards: Denies chest pain, palpitations Skin: Denies Raynaud's, rash, nail changes, photosensitivity, 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 Well appearing and in no apparent painful distress MSK Hands Right Hand: Not able to make a fist. Dactylitis of the 5th digit with TTP of PIP and 4th MCP Left Hand: Not able to make a fist. TTP of the 3rd MCP Wrists Right Wrist: Good ROM. No swelling or TTP Left Wrist: Good ROM. No swelling or TTP Elbows Right Elbow: Full ROM. No swelling or TTP. No TTP of the medial epicondyle. No TTP of the lateral epicondyle Left Elbow: Full ROM. No swelling or TTP. No TTP of the medial epicondyle. No TTP of the lateral epicondyle Shoulders Right shoulder: Full ROM. No swelling noted. No TTP of the AC joint. No TTP of the subacromial bursa. No TTP of the posterior shoulder Left shoulder: Full ROM. No swelling noted. No TTP of the AC joint. No TTP of the subacromial bursa. No TTP of the posterior shoulder Knees Right knee: Surgical scar noted. No swelling noted. No TTP of the knee joint line. No TTP of pes anserine bursa Left knee: No swelling noted. No TTP of the knee joint line. No TTP of pes anserine bursa. Crepitations felt Vital Signs: Last Vital Signs Pulse 75 01/06/25 13:06 BP 130/82 01/06/25 13:06 Pulse Ox 98 01/06/25 13:06 Oxygen Delivery Method Room Air 01/06/25 13:06 BMI result Body Mass Index 46.8 Results Reviewed Results Reviewed: Laboratory Tests 03/13/24 04/10/24 12/29/24 15:48 16:42 10:01 WBC RBC Hgb Hct Plt Count Sodium Potassium Chloride Carbon Dioxide BUN Creatinine C-Reactive Protein 30.89 H 21.57 H 4.31 H 12/30/24 05:25 WBC 6.0 RBC 3.85 L Hgb 13.0 L Hct 38.8 L Plt Count 270 Sodium 141 Potassium 4.3 Chloride 107 Carbon Dioxide 29 BUN 8 L Creatinine 0.83 C-Reactive Protein Assessment & Plan Assessment & Plan (1) Psoriatic arthritis: Code(s): L40.50 - Arthropathic psoriasis, unspecified Plan: #PsA Patient is a 69-year-old male here today for follow up. Has dactylitis of the right 5th digit which is concerning for psoriatic arthritis. Has tried Orencia and Actemra in the past. But this was on the background of a seronegative rheumatoid arthritis diagnosis. He is unable to try TNF due to his history of heart failure and he is unable to trial methotrexate and leflunomide due to his restrictive lung disease and high-risk for pneumonitis. Given his nonresponse to Orencia I think it warrants trying an IL 17 inhibitor such as Cosentyx Plan - Secukinumab 150mg SC every week x 5 doses then every 4 weeks - RTC 4 months - Labs before visit: CBC, CMP, ESR, CRP, Hepatitis panel and T spot (2) Long-term current use of secukinumab: Code(s): Z79.620 - termite exterminator helper (current) use of immunosuppressive biologic Plan: #termite exterminator helper treatment with IL 17 inhibitors: Ry (Secukinumab)/ Pete (Ixekizumab) Risks and benefits of IL 17 inhibitors discussed with the patient. Risks include infections, injection site reactions, activation of inflammatory bowel disease. Benefits include improved disease activity. Discussed with patient that if she is feeling sick or having flu-like symptoms she is to hold the medication that week and resolved the following week. Plan I spent 33 minutes reviewing the record and labs, taking a history, examining the patient, discussing the treatment plan, ordering diagnostic work up and documenting in the medical record Orders: Orders Comprehensive Met. Panel 4 Months Z79.899 - Other termite renewal inspector (current) drug therapy Hepatitis B,C Profile 4 Months Z79.899 - Other termite renewal inspector (current) drug therapy Complete Blood Count Auto Diff 4 Months Z79.899 - Other termite renewal inspector (current) drug therapy C Reactive Protein 4 Months Z79.899 - Other termite renewal inspector (current) drug therapy Erythrocyte Sedimentation Rate 4 Months Z79.899 - Other alf (current) drug therapy T Spot TB 4 Months Z79.899 - Other termite renewal inspector (current) drug therapy Medications: New secukinumab to start 4 weeks after the 5th loading dose 150 mg subcut Q4W 1 mL 5RF L40.50 - Arthropathic psoriasis, unspecified secukinumab loading dose 150 mg subcut QWEEK 1 mL 5RF L40.50 - Arthropathic psoriasis, unspecified Coding Level of Care Code Complex visit Add On G2211 Diagnoses Psoriatic arthritis L40.50 Long-term current use of secukinumab Z79.620
[2025-01-06 13:06] VITALS: BP 130/82; PULSE 75; O2SAT 98; BMI 46.8
== END 2025-01-06 13:38 | disposition home or self-care (01) ==
LOC: HO.RHES 12:18
PROVIDERS: PCP Nurse Practitioner Family; Visit Provider Student in an Organized Health Care Education/Training Program
DX: L40.50 Arthropathic psoriasis, unspecified (principal); Z79.620 Long term (current) use of immunosuppressive biologic
CPT/HCPCS: 99214; G2211

== ENCOUNTER → 2025-01-06 12:17 | Outpatient (BNVA) | payer MEDICARE, SELFPAY | PROVIDERS: PCP Nurse Practitioner Family; Visit Provider Student in an Organized Health Care Education/Training Program | DX: L40.50 Arthropathic psoriasis, unspecified (principal); Z79.620 Long term (current) use of immunosuppressive biologic | CPT/HCPCS: 99212 ==

== ENCOUNTER 2025-01-19 10:33 | Outpatient (AMB) | payer MEDICARE, SELFPAY ==
--- NOTE | 2025-01-19 10:25 | MHC.OFFWIV ---
Intake Vital Signs 01/19/25 10:36 Height 6 ft 4 in Weight 384 lb BMI 46.7 BP 131/62 Blood Pressure Location Rt brachial Position Sitting Pulse 77 Pulse Source Pulse Oximeter Temp 98.3 F Temp Source Oral Pulse Oximetry (%) 96 Oxygen Delivery Method Room Air Intake Visit Reasons: Hospital discharge follow up Patient Tobacco Use Status: Former Tobacco user Allergies No Known Allergies (No Known Allergies*) Allergy (Verified 01/19/25 10:47) Do you need a note to return to daycare/school/sports/work: No HPI HPI Comments History of Present Illness Details Patient is a 69-year-old male with a past medical history of paroxysmal AFib not on anticoagulation as he is S/P Watchman device on DAPT, diastolic HF, chronic lymphedema, HTN, chronic hypoxia secondary to COPD on 3 L home oxygen, JEFFRY on CPAP, morbid obesity, hypothyroidism who came to the emergency department at [facility] on December 26 complaining of severe bloody diarrhea for 2 days. He was found to have sigmoid colitis, likely ischemic and admitted to the [facility] unit with General surgery and GI consultations. He was treated with bowel rest and then IV Levaquin/Flagyl, which was transitioned to PO. GI panel was negative. Dr. Mcclain performed a sigmoidoscopy on December 27. The sigmoidoscopy showed ?edema, erythema, submucosal hemorrhages and circumferential ulceration covered with white exudate and serosanguineous fluid in the colon, likely due to ischemic colitis. Moderate diverticulosis in the sigmoid colon and moderate hemorrhoids on retroflexed exam?. Once he was able to tolerate a regular diet he was discharged on PO cefuroxime and Flagyl. Aspirin and clopidogrel were held on admission because of the bleed but they were both resumed on discharge. He was discharged on December 28 and told to follow up with GI and primary care in 1-2 weeks. Today, he tells me he has completed prescriptions for cefuroxime and Flagyl, with resolution of previous diarrhea and bloody diarrhea. He denies any abdominal pain. However, he tells me for the past four to five months, the patient has experienced a change in bowel habits, with frequency decreasing from daily to every other day. The patient reports that stools are now large in volume, sometimes causing the toilet to be blocked, and this change began before starting semaglutide. The patient currently uses Colace for stool softening. The patient's last colonoscopy was seven years ago, with a 10-year follow-up recommended at that time. The patient has a follow-up appointment with GI scheduled for March 17, though was advised to be seen within two weeks of discharge. The patient is on a weight loss regimen with semaglutide (Wegovy), which is administered every Friday by a family member. The patient's weight has decreased from 456 pounds last to 384 pounds currently. With the weight loss, the patient reports that the legs feel better, walking has become easier, and there is less use of supplemental oxygen at home. The patient reports engaging in chair yoga and using oxygen tanks as weights for exercise. The patient reports alcohol and marijuana use on Saturdays. Review of Systems - Constitutional: Reports significant weight loss of approximately 72 pounds over the last year. - Gastrointestinal: Reports change in bowel habits to every other day with large volume stools for the past 4-5 months. Denies recent diarrhea or bloody diarrhea. - Respiratory: Reports improved breathing and decreased use of home oxygen. - Musculoskeletal: Reports legs feel better. All systems reviewed and are unremarkable except as noted in HPI Physical Exam General: Cooperative, healthy appearing, comfortable, no acute distress and well developed Orientation: Patient oriented x3 Limitations: using walker with O2 on it and tubing but not in nares Head: Normal to inspection Ears: Hearing grossly normal bilaterally Nose: Normal External nose present Face and sinus: Normal facial exam Eyes: Appearance normal, both eyes and all related structures Neck: Normal visual inspection and Yes full ROM Respiratory: Normal respiratory effort and able to speak in complete sentences. Skin: No rashes or lesions noted Neuro: Patient oriented x3 Extremities: Normal to inspection, legs are wrapped [facility] Medical History (Updated 01/19/25 @ 11:32 by Sho Walsh PA-C) Morbid obesity Morbid (severe) obesity due to excess calories Presence of Watchman left atrial appendage closure device Visit for suture removal Rib pain on left side Post-COVID syndrome Traumatic perinephric hematoma of left kidney Chronic diastolic heart failure JEFFRY on CPAP Anemia Sepsis COPD (chronic obstructive pulmonary disease) Acute respiratory failure due to COVID-19 Community acquired pneumonia Viral sepsis Fatigue Acute on chronic diastolic CHF (congestive heart failure) COVID Paroxysmal atrial fibrillation Testicular swelling Osteoarthritis of right knee Melanoma History of cardioversion Hereditary lymphedema Venous insufficiency Lymphedema COPD (chronic obstructive pulmonary disease) Sensory neuropathy COVID-19 Respiratory failure with hypoxia Restrictive lung disease MATUTE (dyspnea on exertion) Chronic cystitis Bladder outlet obstruction Restless leg syndrome Traumatic complete tear of right rotator cuff Injury of right rotator cuff History of diverticulitis History of umbilical hernia Surgical History S/P shoulder surgery Status post total left knee replacement Hx of colonoscopy History of appendectomy History of arthroscopy of left knee Family History Father Arthritis Diabetes Mother Arthritis Kidney stones Family/Other Arthritis Sister No problems noted. Sister No problems noted. Son No problems noted. Social History Household Members: Spouse Household Members Other:: [facility] Do you presently have visiting nurse or other home services: No Alcohol intake: current Alcohol intake frequency: holidays/special occasions only Alcohol type: beer Comment: Refused bed alarm due to alarm sensitivity when changing positions. 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 Cognitive needs: No Hearing needs: No Vision needs: No Physical Exam Vital Signs: Last Vital Signs Temp 98.3 F 01/19/25 10:36 Pulse 77 01/19/25 10:36 BP 131/62 01/19/25 10:36 Pulse Ox 96 01/19/25 10:36 Oxygen Delivery Method Room Air 01/19/25 10:36 BMI result Body Mass Index 46.7 Assessment & Plan Assessment & Plan (1) Hospital discharge follow-up: Code(s): Z51.89 - Encounter for other specified aftercare (2) Change in bowel habits: Code(s): R19.4 - Change in bowel habit (3) Morbid obesity: Code(s): E66.01 - Morbid (severe) obesity due to excess calories Plan Plan Patient was informed and verbally consented to the use of an ambient scribe for clinic note documentation during this visit. HDF - The patient is doing well and has had no more bloody stools, his vital signs are stable and he is well-appearing. No further workup is indicated. However, he has had a change in his bowel habits that he has experienced over the last 4-5 months. See below Change In Bowel Habits - The patient's change in bowel habits over the last 4-5 months, preceding the use of semaglutide, is an indication for a colonoscopy sooner than the previously recommended 10-year interval. Patient should follow up with GI for further evaluation and recommendation. - Called GI to get an earlier follow-up appointment with the patient coordinator, Dr. Mcclain, as the current appointment is two months away, contrary to the post-discharge recommendation by her of two weeks. However, she is out of the office until 02/24/25. We will ask her MA to book sooner if cancellation. The other MD is booked until June 2025. - The patient was counseled that Colace is a stool softener and does not stimulate bowel movements. Morbid Obesity - The patient has achieved significant weight loss, from 456 lbs to 384 lbs, using semaglutide (Wegovy). - The patient reports positive effects from weight loss, including improved breathing, increased mobility, and decreased reliance on supplemental oxygen. - The patient is encouraged to continue the current regimen, which results in a consistent weight loss of a few pounds per week. - The patient is actively exercising with chair yoga and weight lifting. Coding Level of Care Code Est Pt Level 3 (37484) Diagnoses Hospital discharge follow-up Z51.89 Change in bowel habits R19.4 Morbid obesity E66.01
[2025-01-19 10:36] VITALS: BP 131/62; PULSE 77; TEMP 36.8; O2SAT 96; BMI 46.7
== END 2025-01-19 12:14 | disposition home or self-care (01) ==
LOC: HO.HMCFMS 10:34
PROVIDERS: PCP Nurse Practitioner Family; Visit Provider Physician Assistant
DX: Z51.89 Encounter for other specified aftercare (principal); R19.4 Change in bowel habit; E66.01 Morbid (severe) obesity due to excess calories

== ENCOUNTER → 2025-01-19 10:33 | Outpatient (BNVA) | payer MEDICARE, SELFPAY | PROVIDERS: PCP Nurse Practitioner Family; Visit Provider Physician Assistant | DX: Z09 Encounter for follow-up examination after completed treatment for conditions other than malignant neoplasm (principal); R19.4 Change in bowel habit; E66.01 Morbid (severe) obesity due to excess calories; Z68.42 Body mass index [BMI] 45.0-49.9, adult; Z71.3 Dietary counseling and surveillance; Z87.891 Personal history of nicotine dependence | CPT/HCPCS: 99212 ==

== ENCOUNTER 2025-01-28 07:13 | Outpatient (REF) | payer MEDICARE, SELFPAY ==
--- OUTSIDE RECORDS SUMMARY | 2025-01-20 08:30 | XMS_ITS | Continuity of Care Document ---
Author Organization [facility] Address [address] [place] [address] Phone Care Team Providers Care Application Support Intern Name Role Phone Maximiliano STAPLES, YG, RIRI, [...] chewable tablet - Active Procedures Procedure Date Office/Outpt E&M Established 15 Mins- CT & [place] Duplex Scan-extrem Veins; Uni/ CT & [place] D Duplex Scan-extrem Veins; Uni/ CT & MA [...] Effective Date File Name Other Directive No 01/20/2025 N/A WARNING:The information contained in this section [...] E&M Established 15 Mins- CT & [place] [facility] MD ALEX, [address] [place] [address] Dr Winters [address], [id number], [place] tel:[phone] [facility] Obesity, class 3Obesity, Class 3Disorder of pigmentation, unspecifiedCh ronic venous hypertension (idiopathic) without complications of left lower extremityLymp hedema, not elsewhere classified Dec-0 4- 5 Maximiliano STAPLES RVT, RIRI Tran. [address] [place] [address], [place], [place], [id number], [place]. tel:[phone] Referring Provider: Diego Jarrett, [address] [place] [address], [place], [address]. tel:[phone] [place] [facility] MD ALEX, [address] [place] [address] Dr Win[address], [id number], [place] tel:[phone] [facility] Chronic venous hypertension (idiopathic) with other complications of left lower extremity Dec-0 5 Maximiliano STAPLES RVT, RIRI Tran. [address] [place] [address], [place], [place], [id number], [place]. tel:[phone] Referring Provider: Diego Jarrett, [address] [place] [address], [place], [address]. tel:[phone] [facility] MD ALEX, [address] [place] [address] Dr Win[address], [id number], [place] tel:[phone] [facility] Encounter for follow-up examination after completed treatment for conditions other than malignant neoplasmChron ic venous hypertension (idiopathic) with other complications of left lower extremity Oct-2 5 Maximiliano STALPES RVT, RIRI Tran. [address] [place] [address], [place] [address], [place], [place], [id number], [place]. tel:[phone] Referring Provider: Diego Jarrett, [address] [facility], [place], [address]. tel:[phone] [facility] MD ALEX, [address] [place] [address] Dr Win[address] 1000[place], [id number], [place] tel:[phone] [facility] Chronic venous hypertension (idiopathic) with inflammation of left lower extremity Oct-1 5 Jose Rodriguez. [address] [place] [address], [place] [address], [facility] [place], [id number], [place]. tel:[phone] Referring Provider: Diego Jarrett, [address] [facility], [place], [address]. tel:[phone] [facility] MD ALEX, [address] [place] [address] Dr Win[address] 1000[place], [id number], [place] tel:[phone] [facility] Encounter for follow-up examination after completed treatment for conditions other than malignant neoplasmChron ic venous hypertension (idiopathic) with other complications of left lower extremity Oct-1 5 Maximiliano STAPLES RVT, RIRI Tran. [address] [place] [address], [place], [id number], [place]. tel:[phone] Referring Provider: Diego Jarrett, [address] [place] [address], [place], [address]. tel:[phone] [facility] MD ALEX, [address] [place], [place] [address]way [place] [address], [place], [id number], [place] tel:[phone] [facility] Chronic venous hypertension (idiopathic) with inflammation of left lower extremity Oct-1 5 Maximiliano STAPLES RVT, RPVI Robert. [address] [place] [address], [place], [id number], [place]. tel:[phone] Referring Provider: Diego Jarrett, [address] [place] [address], [place], [address]. tel:[phone] [facility] MD ALEX, [address] [place] [address] Dr Win[address] 1000Suite [place], [id number], [place] tel:[phone] [facility] Encounter for follow-up examination after completed treatment for conditions other than malignant neoplasmChron ic venous hypertension (idiopathic) with other complications of left lower extremity Oct-1 3- 5 Maximiliano STAPLES RVT, RIRI Tran. [address] [facility], [facility] 302, [facility] [place], [id number], [place]. tel:[phone] Referring Provider: Diego Jarrett, [address] [facility], [place], [address]. tel:[phone] [facility] MD ALEX, [address] [place] [address] Dr Win[address] 1000Suite [place], [id number], [place] tel:[phone] [facility] Chronic venous hypertension (idiopathic) with inflammation of left lower extremity Oct-0 5 Maximiliano STAPLES RVT, RIRI Tran. [address] [place] [address] 302, [facility] [place], [id number], [place]. tel:[phone] Referring Provider: Diego Jarrett, [address] [facility], [place], [address]. tel:[phone] Office/Outpt E&M Established 25 Mins- CT & [place] [facility] MD ALEX, [address] [place] [address] Dr Win[address] 1000Suite [place], [id number], [place] tel:[phone] R [facility] Chronic venous hypertension (idiopathic) with other complications of bilateral lower extremityLymp hedema, not elsewhere classifiedDis order of pigmentation, unspecified Sep-2 5 Maximiliano STAPLES RVT, RIRI Tran. [address] [place] [address], [place] [address], [place], [id number], [place]. tel:[phone] Referring Provider: Diego Jarrett, [address] [facility], [place], [address]. tel:[phone] [facility] MD ALEX, [address] [place] [address] Dr Win[address]Suite [place], [id number], [place] tel:[phone] [facility] Chronic venous hypertension (idiopathic) with other complications of bilateral lower extremity 5 Maximiliano STAPLES RVT, RIRI Tran. [address] [facility], [address], [facility] [place], [id number], [place]. tel:[phone] Referring Provider: Diego Jarrett, [address] [facility], [place], [address]. tel:[phone] [facility], [address] [place] [address] Dr Win[address]Suite [place], [id number], [place] tel:[phone] [facility] Encounter for follow-up examination after completed treatment for conditions other than malignant neoplasmChron ic venous hypertension (idiopathic) with other complications of left lower extremity Sep- 5 Maximiliano STAPLES RVT, RIRI Tarn. [address] [place] [address], [place] [address], [place], [place], [id number], [place]. tel:[phone] Referring Provider: Diego Jarrett, [address] [place] [address], [place], [address]. tel:[phone] [facility], [address] [place] [address] Dr [address] 1000Suite [place], [id number], [place] tel:[phone] [facility] Encounter for follow-up examination after completed treatment for conditions other than malignant neoplasmVaric ose veins of left lower extremity with pain 5 Maximiliano STAPLES RVT, RIRI Tran. [address] [place] [address], [address], [facility] [place], [id number], [place]. tel:[phone] Referring Provider: Diego Jarrett, [address] [facility], [place], [address]. tel:[phone] [facility] MD ALEX, [address] [place] [address] Dr Win[address]Suite [place], [id number], [place] tel:[phone] [facility] [place] [facility] [place] Varicose veins of left lower extremity with other complications 5 Maximiliano STAPLES RVT, RPVI Robert. [address] [place] [address], [place], [place], [id number], [place]. tel:[phone] Referring Provider: Diego Jarrett, [address] [place] [address], [place], [address]. tel:[phone] [facility] MD ALEX, [address] [place] [address] Dr Win[address] 1000[place], [id number], [place] tel:[phone] [facility] [place] Varicose veins of left lower extremity with other complications 5 Maximiliano STAPLES RVT, RPVI Robert. [address] [place] [address], [place], [place], [id number], [place]. tel:[phone] Referring Provider: Diego Jarrett, [address] [place] [address], [place], [address]. tel:[phone] [facility] MD ALEX, [address] [place] [address] Dr Winters 1000[address] 1000[place], [id number], [place] tel:[phone] [facility] [place] Encounter for follow-up examination after completed treatment for conditions other than malignant neoplasmChron ic venous hypertension (idiopathic) with other complications of right lower extremity 5 Maximiliano STAPLES RVT, RPVI Robert. [address] [place] [address], [place], [place], [id number], [place]. tel:[phone] Referring Provider: Diego Jarrett, [address] [place] [address], [place], [address]. tel:[phone] [facility] MD ALEX, [address] [place] [address] Dr Win[address]Suite [place], [id number], [place] tel:[phone] [facility] [place] Varicose veins of right lower extremity with other complications 5 Maximiliano STAPLES RVT, RPVI Robert. [address] [place] [address], Suite [facility], [place], [place], [id number], [place]. tel:[phone] Referring Provider: Diego Jarrett, [address] [place] [address], [place], [address]. tel:[phone] [facility] MD ALEX, [address] [place] [address] Dr Winters 1000[address] 1000[place], [id number], [place] tel:[phone] [facility] Encounter for follow-up examination after completed treatment for conditions other than malignant neChronic venous hypertension (idiopathic) with other complications of right lower extremity 5 Maximiliano STAPLES RVT, RIRI Tran. [address] [place] [address], [place], [place], [id number], [place]. tel:[phone] Referring Provider: Diego Jarrett, [address] [place] [address], [place], [address]. tel:[phone] [place] [facility] MD ALEX, [address] [place] [address] Dr Winters 1000Suite [place], [id number], [place] tel:[phone] [facility] Varicose veins of right lower extremity with other complications 5 Maximiliano STAPLES RVT, RIRI Tran. [address] [place] [address], [place], [place], [id number], [place]. tel:[phone] Referring Provider: Diego Jarrett, [address] [place] [address], [place], [address]. tel:[phone] Office/Outpt E&M Established 15 Mins- CT & [place] [facility] MD ALEX, [address] [place] [address] Dr Winters 1000Suite 1000[place], [id number], [place] tel:[phone] [facility] Lymphedema, not elsewhere classifiedDis order of pigmentation, unspecifiedHe reditary lymphedemaLoc alized edemaCramp and spasmRestless legs syndromeVenou s insufficiency (chronic) (peripheral) 5 Maximiliano STAPLES RVT, RPVI Robert. [address] [place] [address], [place], [id number], [place]. tel:[phone] Referring Provider: Diego Jarrett, [address] [place] [address], [place], [address]. tel:[phone] [facility] MD ALEX, [address] [place] [address] Dr Winters 1000Suite [place], [id number], [place] tel:[phone] [facility] Chronic venous hypertension (idiopathic) with other complications of bilateral lower extremity 5 Maximiliano STAPLES RVT, RPVI Robert. [address] [place] [address], [place], [id number], [place]. tel:[phone] Referring Provider: Diego Jarrett, [address] [place] [address], [place], [address]. tel:[phone] [facility] MD ALEX, [address] [place] [address] Dr Winters 1000Suite [place], [id number], [place] tel:[phone] [facility] Encounter for follow-up examination after completed treatment for conditions other than malignant neoplasmVaric ose veins of right lower extremity with pain 5 Maximiliano STAPLES RVT, RPVI Robert. [address] [place] [address], [place], [id number], [place]. tel:[phone] Referring Provider: Diego Jarrett, [address] [place] [address], [place], [address]. tel:[phone] [facility] MD ALEX, [address] [place] [address] Dr Winters 1000Suite [place] MD, [id number], [place] tel:[phone] [facility] Varicose veins of right lower extremity with other complications 5 Maximiliano STAPLES RVT, RPVI Robert. [address] [place] [address], [place] [address], [place], [id number], [place]. tel:[phone] Referring Provider: Diego Jarrett, [address] [facility], [place], [address]. tel:[phone] [facility] MD ALEX, [address] [place] [address] Dr Winters 1000[address] 1000[place], [id number], [place] tel:[phone] [facility] Encounter for follow-up examination after completed treatment for conditions other than malignant neoplasmVaric ose veins of left lower extremity with pain 5 Maximiliano STAPLES RVT, RIRI Tran. [address] [place] [address], [place], [id number], [place]. tel:[phone] Referring Provider: Diego Jarrett, [address] [facility], [place], [address]. tel:[phone] [place] [facility] MD ALEX, [address] [place] [address] Dr Winters 1000Suite 1000[place], [id number], [place] tel:[phone] [facility] Varicose veins of left lower extremity with other complications 5 Maximiliano STAPLES RVT, RIRI Tran. [address] [place] [address], [place], [id number], [place]. tel:[phone] Referring Provider: Diego Jarrett, [address] [place] [address], [place], [address]. tel:[phone] Offic/outpt E&m Estab 5 Min Trial- Telemedicine CT & [place] [facility] MD ALEX, [address] [place] [address] Dr Winters 1000Suite 1000[place], [id number], [place] tel:[phone] [facility] [place] [facility] [place] Localized edemaCramp and spasmRestless legs syndromeVenou s insufficiency (chronic) (peripheral)L ymphedema, not elsewhere classifiedDis order of pigmentation, unspecifiedHe reditary lymphedema 5 Nakia Schneider. [address] [place] [address], [place], [id number], [place]. tel:[phone] Referring Provider: Diego Jarrett, [address] [facility], [place], [address]. tel:[phone] Office/Oupt E&M New Pt 30 Mins- CT & [place] [facility] MD ALEX, [address] [place] [address] Dr Winters [address], [place], [id number], [place] tel:[phone] [facility] Varicose veins of bilateral lower extremities with other complications Cramp and spasmRestless legs syndromeVenou s insufficiency (chronic) (peripheral)L ymphedema, not elsewhere classifiedDis order of pigmentation, unspecifiedHe reditary lymphedema Mar-2 0 5 Maximiliano STAPLES RVT, RIRI Tran. [address] [place] [address], [place], [id number], [place]. tel:[phone] Referring Provider: Diego Jarrett, [address] [facility], [place], [address]. tel:[phone] [facility], [address] [place] [address] Dr Winters [address], [place], [id number], [place] tel:[phone] [facility] Chronic venous hypertension (idiopathic) with other complications of bilateral lower extremity Mar-2 0 5 Maximiliano STAPLES RVT, RPVI Robert. [address] [place] [address], [place], [id number], [place]. tel:[phone] Referring Provider: Diego Jarrett, [address] [place], [address]. tel:[phone] Family History Family Member Type Diagnosis Age At Onset No Information Payers Payer name Insurance type Covered democrat ID Authoriza tion(s) Medicare AVIVA PENA [id number] [facility] AVIVA [place] [id number] Social History Type Description Quantity Date Captured [...] counseling completed Goal Diet education completed Goal Diet education completed Goal Tobacco [...] provided Related to Chronic venous hypertension (idiopathic) without complications of left lower extremity Patient education booklet given Related to Chronic venous hypertension (idiopathic) without complications of left lower extremity Lifestyle education Related to B [...]
--- OUTSIDE RECORDS SUMMARY | 2025-01-28 07:15 | XMS_ITS | Encounter Summary ---
Author Organization [facility] Address [address] [place] [address] Care Team Providers Care Canceling Machine Operator Name Role Phone Venus Belcher MD Primary Care Provider + Encounter Details Date Type Department Care Team (Late st Contact Info) Description 04/06/2024 Lab Requisition [facility] - Main Lab [address] [place] [address] Venus Belcher MD [address] [facility] 1 [place], [place] [id number] Cellulitis, unspecified Social History Tobacco Use Types [...] LAB CHEMISTRY METHOD 04/06/2024 11:35 AM EST [facility] Potassium 4.5 3.5 - 5.5 mmol/L LAB CHEMISTRY METHOD 04/06/2024 11:35 AM EST [facility] Comment:Hemolysis present Chloride 94(L) [...] [facility] Comment:Calculation based on the Chronic [...] LAB CHEMISTRY METHOD 04/06/2024 11:35 AM EST [facility] Blood Venous blood specimen / Unknown Venipuncture / Unknown 04/06/2024 9:00 AM EST 04/06/2024 9:48 AM EST us Venus Belcher MD LAB BLOOD ORDERABLES Fin al Result [facility] [address] [place] [address], documented in this encounter Visit Diagnoses Diagnosis Cellulitis, unspecified documented in this encounter Care Teams Canceling Machine Operator Relationship Specialty Start Date End Date Venus Belcher MD [address] [place] [address] PCP - General Family Medicine 04/06/24 documented as of this encounter
--- OUTSIDE RECORDS SUMMARY | 2025-01-28 07:15 | XMS_ITS | Clinical Summary ---
Author Organization [address] Address [address] [place] [address] Phone Care Team Providers Care Ux Visual Designer Name Role Phone Elder, Venus Olivares MD [...] Depression Screening 02/18/2024 COVID-19 Vaccine (1 - 2024-2 6 season) 2024 Influenza Vaccine (#1) 2024 RSV [...] age to complete this topic Insurance MEDICARE [facility] Advance Directives Documents on File Type Date Recorded Patient V Belt Builder Expl anation Health Care Decision (hx) 04/17/2016 AD [place] DIRECTIVE Health Care Decision (hx) 04/17/2016 AD [place] DIRECTIVE Health Care Decision (hx) 04/17/2016 AD [place] DIRECTIVE Health Care Decision (hx) 04/17/2016 AD [place] DIRECTIVE Care Teams Ux Visual Designer Relationship Specialty Start Date End Date Venus Belcher MD [address] [address] PCP - General Family Medicine 04/06/24
--- OUTSIDE RECORDS SUMMARY | 2025-01-28 07:15 | XMS_ITS | Encounter Summary ---
Author Organization [facility] Address [address] [place] [address] Care Team Providers Care Extrusion Operator Name Role Phone Venus Belcher MD Primary Care Provider + Encounter Details Date Type Department Care Team (Late st Contact Info) Description 04/06/2024 Lab Requisition [facility] - Main Lab [address] [place] [address] Venus Belcher MD [address] [facility] 1 [place], [place] [id number] Cellulitis, unspecified Social History Tobacco Use Types [...] HEMETOLOGY METHOD 04/06/2024 3:24 PM EST [facility] RBC 3.30(L) 4.50 - 5.50 M/mcL LAB HEMETOLOGY METHOD 04/06/2024 3:24 PM EST [facility] Hemoglobin 10.9(L) 13.5 - 17.5 g/dL LAB HEMETOLOGY METHOD 04/06/2024 3:24 PM EST [facility] Hematocrit 32.9(L) 42.0 - 54.0 % LAB HEMETOLOGY METHOD 04/06/2024 3:24 PM [facility] MCV 98.5(H) 79.0 - 98.0 FL LAB HEMETOLOGY METHOD 04/06/2024 3:24 PM [facility] MCH 32.6(H) 27.0 - 32.0 pcg LAB HEMETOLOGY METHOD 04/06/2024 3:24 PM EST [facility] MCHC 33.1 32.0 - 37.0 g/dL LAB HEMETOLOGY METHOD 04/06/2024 3:24 PM [facility] RDW 13.9 11.0 - 15.0 % LAB HEMETOLOGY METHOD 04/06/2024 3:24 PM [facility] Platelets 476(H) 130 - 400 K/mcL LAB HEMETOLOGY METHOD 04/06/2024 3:24 PM EST [facility] MPV 9.8 7.0 - 11.0 FL LAB HEMETOLOGY METHOD 04/06/2024 3:24 PM EST [facility] NRBC 0.0 <1.0 % LAB HEMETOLOGY METHOD 04/06/2024 3:24 PM [facility] NRBC Absolute 0.00 <0.10 K/mcL LAB HEMETOLOGY METHOD 04/06/2024 3:24 PM [facility] Blood Venous blood specimen / Unknown Venipuncture / Unknown 04/06/2024 1:21 PM EST 04/06/2024 2:57 PM EST us Venus Belcher MD LAB BLOOD ORDERABLES Fin al Result [facility] [address] [place] [address], documented in this encounter Visit Diagnoses Diagnosis Cellulitis, unspecified documented in this encounter Care Teams Extrusion Operator Relationship Specialty Start Date End Date Venus Belcher MD [address] [address] PCP - General Family Medicine 04/06/24 documented as of this encounter
--- OUTSIDE RECORDS SUMMARY | 2025-01-28 07:16 | XMS_ITS | Encounter Summary ---
Author Organization [facility] Address [address] [place] [address] Care Team Providers Care Corporate Recruiter Name Role Phone Venus Belcher MD Primary Care Provider + Encounter Details Date Type Department Care Team (Late st Contact Info) Description 04/13/2024 Lab Requisition [facility] - Main Lab [address] [facility] [place] [address] Venus Belcher MD [address] [address] Cellulitis, unspecified Social History Tobacco Use Types [...] unspecified documented in this encounter Care Teams Corporate Recruiter Relationship Specialty Start Date End Date Venus Belcher MD [address] [place] [address] [id number] PCP - General Family Medicine 04/06/24 documented as of this encounter
--- OUTSIDE RECORDS SUMMARY | 2025-01-28 07:16 | XMS_ITS | Encounter Summary ---
Author Organization [facility] Address [address] [place] [address] Care Team Providers Care Azure Architect Name Role Phone Venus Belcher MD Primary Care Provider + Encounter Details Date Type Department Care Team (Late st Contact Info) Description 04/18/[address] [facility] - Main Lab [address] [facility] [place] [address] Venus Belcher MD [address] [address] Cellulitis, unspecified Social History Tobacco Use Types [...] unspecified documented in this encounter Care Teams Azure Architect Relationship Specialty Start Date End Date Venus Belcher MD [address] [place] [phone] PCP - General Family Medicine 04/06/24 documented as of this encounter
--- OUTSIDE RECORDS SUMMARY | 2025-01-28 07:16 | XMS_ITS | Encounter Summary ---
Author Organization [facility] Address [address] [place] [address] Care Team Providers Care Oxygen Plant Operator Name Role Phone Venus Belcher MD Primary Care Provider + Encounter Details Date Type Department Care Team (Late st Contact Info) Description 04/25/[address] [facility] - Main Lab 299 [facility] [place] [address] Venus Belcher MD [address] [address] Cellulitis, unspecified Social History Tobacco Use Types [...] unspecified documented in this encounter Care Teams Oxygen Plant Operator Relationship Specialty Start Date End Date Venus Belcher MD [address] [place] [address] [phone] PCP - General Family Medicine 04/06/24 documented as of this encounter
[2025-01-28 10:30] LABS: Hemoglobin A1C 76.9044 umol/L
[2025-01-28 10:50] LABS: Alanine Aminotransferase 12 U/L (0-40); Albumin Level 4.0 g/dL (3.5-5.0); Alkaline Phosphatase 86 U/L (39-117); Amylase 36 U/L (28-100); Anion Gap 8 (12-20); Aspartate Amino Transferase 32 U/L (5-37); Blood Urea Nitrogen 16 mg/dL (9-16); Calcium 9.5 mg/dL (8.4-10.2); Carbon Dioxide 30 mmol/L (22-29); Chloride 104 mmol/L (96-108); Cholesterol 110 mg/dL (<200); Estimated Glomerular Filt Rate > 60; HDL Cholesterol 44 mg/dL (>40); Iron 78 mcg/dL (45-160); Lipase 15 U/L (8-78); Magnesium 2.2 mg/dL (1.6-2.6); Percent Iron Saturation 36 % (15-50); Potassium 4.1 mmol/L (3.3-5.1); Sodium 138 mmol/L (135-145); Total Iron Binding Capacity 216 mcg/dL (228-428); Total Protein 6.9 g/dL (6.5-8.0); Triglycerides 70 mg/dL (<150); Unsaturated Iron Binding 138 ug/dL
[2025-01-28 11:04] LABS: Free T4 (Free Thyroxine) 1.21 ng/dL (0.71-1.85)
[2025-01-28 11:17] LABS: Folate 6.1 ng/mL (> or = 4.0); Vitamin B12 633 pg/mL (200-900)
== END 2025-01-28 07:14 | disposition home or self-care (01) ==
LOC: HO.HMGCLDS 07:13
PROVIDERS: PCP Nurse Practitioner Family; Visit Provider Nurse Practitioner Family
DX: R79.89 Other specified abnormal findings of blood chemistry (principal); G47.33 Obstructive sleep apnea (adult) (pediatric); E66.01 Morbid (severe) obesity due to excess calories; Z13.29 Encounter for screening for other suspected endocrine disorder; Z99.89 Dependence on other enabling machines and devices
CPT/HCPCS: 36415; 80053; 80061; 82150; 82607; 82746; 83036; 83540; 83690; 83735; 84439; 84443

== ENCOUNTER 2025-02-03 11:51 | Outpatient (REF) | payer MEDICARE, SELFPAY ==
[2025-02-03 14:21] LABS: Appearance Urine Cloudy; Glucose Urine UA Negative (Negative); PH 7.5 (5.0-9.0); Specific Gravity - Urine 1.020 (1.005-1.025); UMIC TRIGGER UACC YES
[2025-02-03 14:36] LABS: UACC Culture Trigger YES
[2025-02-03 15:35] LABS: Ferritin 152 ng/mL (20-250)
--- OUTSIDE RECORDS SUMMARY | 2025-02-03 15:47 | XMS_ITS | Encounter Summary ---
Author Organization [facility] Address [address] [place] [address] Care Team Providers Care Supervisor Slate Splitting Name Role Phone Venus Belcher MD Primary Care Provider + Encounter Details Date Type Department Care Team (Late st Contact Info) Description 04/18/2024 Lab Requisition [facility] - Main Lab 299 [facility] [place] [address] Venus Belhcer MD [address] [address] Cellulitis, unspecified Social History Tobacco Use Types [...] documented in this encounter Care Teams Supervisor Slate Splitting Relationship Specialty Start Date End Date Venus Belcher MD [address] [place] [address] [phone] PCP - General Family Medicine 04/06/24 documented as of this encounter
--- OUTSIDE RECORDS SUMMARY | 2025-02-03 15:47 | XMS_ITS | Encounter Summary ---
Author Organization [facility] Address [address] [place] [address] Care Team Providers Care Tying Machine Operator Lumber Name Role Phone Venus Belcher MD Primary Care Provider + Encounter Details Date Type Department Care Team (Late st Contact Info) Description 04/13/[address] [facility] - Main Lab 299 [facility] [place] [address] Venus Belcher MD [address] [address] Cellulitis, unspecified Social History Tobacco Use Types [...] unspecified documented in this encounter Care Teams Tying Machine Operator Lumber Relationship Specialty Start Date End Date Venus Belcher MD [address] [place] [phone] PCP - General Family Medicine 04/06/24 documented as of this encounter
--- OUTSIDE RECORDS SUMMARY | 2025-02-03 15:47 | XMS_ITS | Clinical Summary ---
Author Organization [address] Address [address] [place] [address] Phone Care Team Providers Care Regional Office Coordinator Name Role Phone Elder, Venus Olivares MD [...] age to complete this topic Insurance MEDICARE [facility] Advance Directives Documents on File Type Date Recorded Patient Chart Snatcher Expl anation Health Care Decision (hx) 04/17/2016 AD [place] DIRECTIVE Health Care Decision (hx) 04/17/2016 AD [place] DIRECTIVE Health Care Decision (hx) 04/17/2016 AD [place] DIRECTIVE Health Care Decision (hx) 04/17/2016 AD [place] DIRECTIVE Care Teams Regional Office Coordinator Relationship Specialty Start Date End Date Venus Belcher MD [address] [phone] PCP - General Family Medicine 04/06/24
--- OUTSIDE RECORDS SUMMARY | 2025-02-03 15:47 | XMS_ITS | Encounter Summary ---
Author Organization [facility] Address [address] [place] [address] Care Team Providers Care Protein Specialist Name Role Phone Venus Belcher MD Primary Care Provider + Encounter Details Date Type Department Care Team (Late st Contact Info) Description 04/25/2024 Lab Requisition [facility] - Main Lab 299 [facility] [place] [address] Venus Belcher MD [address] [address] Cellulitis, unspecified Social History Tobacco Use Types [...] unspecified documented in this encounter Care Teams Protein Specialist Relationship Specialty Start Date End Date Venus Belcher MD [address] [place] [address] [phone] PCP - General Family Medicine 04/06/24 documented as of this encounter
--- OUTSIDE RECORDS SUMMARY | 2025-02-03 15:47 | XMS_ITS | Encounter Summary ---
Author Organization [facility] Address [address] [place] [address] Care Team Providers Care Assistant Media Buyer Name Role Phone Venus Belcher MD Primary Care Provider + Encounter Details Date Type Department Care Team (Late st Contact Info) Description 04/06/2024 Lab Requisition [facility] - Main Lab 299 [place] [address] Venus Belcher MD 819 [facility] 1 [place], [place] [phone] Cellulitis, unspecified Social History Tobacco Use Types [...] LAB HEMETOLOGY METHOD 04/06/2024 3:24 PM EST [facility] RBC 3.30(L) 4.50 - 5.50 M/mcL LAB HEMETOLOGY METHOD 04/06/2024 3:24 PM EST [facility] LAB Hemoglobin 10.9(L) 13.5 - 17.5 g/dL LAB HEMETOLOGY METHOD 04/06/2024 3:24 PM EST [facility] LAB Hematocrit 32.9(L) 42.0 - 54.0 % LAB HEMETOLOGY METHOD 04/06/2024 3:24 PM [facility] LAB MCV 98.5(H) 79.0 - 98.0 FL LAB HEMETOLOGY METHOD 04/06/2024 3:24 PM [facility] LAB MCH 32.6(H) 27.0 - 32.0 pcg LAB HEMETOLOGY METHOD 04/06/2024 3:24 PM EST [facility] LAB MCHC 33.1 32.0 - 37.0 g/dL LAB HEMETOLOGY METHOD 04/06/2024 3:24 PM [facility] LAB RDW 13.9 11.0 - 15.0 % LAB HEMETOLOGY METHOD 04/06/2024 3:24 PM [facility] LAB Platelets 476(H) 130 - 400 K/mcL LAB HEMETOLOGY METHOD 04/06/2024 3:24 PM EST [facility] LAB MPV 9.8 7.0 - 11.0 FL LAB HEMETOLOGY METHOD 04/06/2024 3:24 PM EST [facility] NRBC 0.0 <1.0 % [...] [facility] [address] [place] [address], documented in this encounter Visit Diagnoses Diagnosis Cellulitis, unspecified documented in this encounter Care Teams Assistant Media Buyer Relationship Specialty Start Date End Date Venus Belcher MD [address] [phone] PCP - General Family Medicine 04/06/24 documented as of this encounter
--- OUTSIDE RECORDS SUMMARY | 2025-02-03 15:47 | XMS_ITS | Encounter Summary ---
Author Organization [facility] Address [address] [place] [address] Care Team Providers Care Alteration Specialist Name Role Phone Venus Belcher MD Primary Care Provider + Encounter Details Date Type Department Care Team (Late st Contact Info) Description 04/06/2024 Lab Requisition [facility] - Main Lab [address] [place] [address] Venus Belcher MD 819 [facility] 1 [place], [place] [phone] Cellulitis, unspecified Social History Tobacco Use Types [...] LAB CHEMISTRY METHOD 04/06/2024 11:35 AM EST [facility] Potassium 4.5 3.5 - 5.5 mmol/L LAB CHEMISTRY METHOD 04/06/2024 11:35 AM EST [facility] Comment:Hemolysis present Chloride 94(L) 96 [...] [facility] Comment:Calculation based on the [...] LAB CHEMISTRY METHOD 04/06/2024 11:35 AM EST [facility] Blood Venous blood specimen / Unknown Venipuncture / Unknown 04/06/2024 9:00 AM EST 04/06/2024 9:48 AM EST us Venus Belcher MD LAB BLOOD ORDERABLES Fin al Result [facility] [address] [place] [address], documented in this encounter Visit Diagnoses Diagnosis Cellulitis, unspecified documented in this encounter Care Teams Alteration Specialist Relationship Specialty Start Date End Date Venus Belcher MD [address] [place] [phone] PCP - General Family Medicine 04/06/24 documented as of this encounter
== END 2025-02-03 11:52 | disposition home or self-care (01) ==
LOC: HO.HMGCLDS 11:51
PROVIDERS: PCP Nurse Practitioner Family; Visit Provider Nurse Practitioner Family
DX: Z13.21 Encounter for screening for nutritional disorder (principal); Z13.0 Encounter for screening for diseases of the blood and blood-forming organs and certain disorders involving the immune mechanism
CPT/HCPCS: 36415; 81001; 82306; 82728; 87086

== ENCOUNTER 2025-02-14 08:17 | Outpatient (AMB) | payer MEDICARE, SELFPAY ==
--- OUTSIDE RECORDS SUMMARY | 2025-02-14 08:21 | XMS_ITS | Encounter Summary ---
Author Organization [facility] [address] Address [address] [place] [address] Care Team Providers Care Saturator Tender Name Role Phone Venus Belchre MD Primary Care Provider + Encounter Details Date Type Department Care Team (Late st Contact Info) Description 04/25/2024 Lab Requisition [facility] - Main Lab 299 [facility] [place] [address] Venus Belcher MD [address] [address] Cellulitis, unspecified Social History Tobacco Use Types [...] unspecified documented in this encounter Care Teams Saturator Tender Relationship Specialty Start Date End Date Venus Belcher MD [address] [place] [address] [phone] PCP - General Family Medicine 04/06/24 documented as of this encounter
--- OUTSIDE RECORDS SUMMARY | 2025-02-14 08:21 | XMS_ITS | Encounter Summary ---
Author Organization [facility] Address [address] [place] [address] Care Team Providers Care Pitch Flaker Name Role Phone Venus Belcher MD Primary Care Provider + Encounter Details Date Type Department Care Team (Late st Contact Info) Description 04/06/2024 Lab Requisition [facility] - Main Lab 299 [place] [address] Venus Belcher MD 819 [facility] 1 [place], [place] [phone] Cellulitis, unspecified Social History Tobacco Use Types [...] [facility] Comment:Calculation based on the Chronic [...] al Result [facility] [address] [place] [address], documented in this encounter Visit Diagnoses Diagnosis Cellulitis, unspecified documented in this encounter Care Teams Pitch Flaker Relationship Specialty Start Date End Date Venus Belcher MD [address] [place] [phone] PCP - General Family Medicine 04/06/24 documented as of this encounter
--- OUTSIDE RECORDS SUMMARY | 2025-02-14 08:21 | XMS_ITS | Encounter Summary ---
Author Organization [facility] Address [address] [place] [address] Care Team Providers Care Merchandise Execution Leader Name Role Phone Venus Belcher MD Primary Care Provider + Encounter Details Date Type Department Care Team (Late st Contact Info) Description 04/06/2024 Lab Requisition [facility] - Main Lab [address] [place] [address] Venus Belcher MD 819 [facility] 1 [place], [place] [phone] Cellulitis, unspecified Social History Tobacco Use Types [...] al Result [facility] [address] [place] [address], documented in this encounter Visit Diagnoses Diagnosis Cellulitis, unspecified documented in this encounter Care Teams Merchandise Execution Leader Relationship Specialty Start Date End Date Venus Belcher MD [address] [phone] PCP - General Family Medicine 04/06/24 documented as of this encounter
--- OUTSIDE RECORDS SUMMARY | 2025-02-14 08:21 | XMS_ITS | Clinical Summary ---
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
--- OUTSIDE RECORDS SUMMARY | 2025-02-14 08:21 | XMS_ITS | Encounter Summary ---
Author Organization [facility] Address [address] [place] [address] Care Team Providers Care Bin Tripper Operator Name Role Phone Venus Belcher MD Primary Care Provider + Encounter Details Date Type Department Care Team (Late st Contact Info) Description 04/13/2024 Lab Requisition [facility] - Main Lab 299 [facility] [place] [address] Venus Belcher MD [address] [address] Cellulitis, unspecified Social History Tobacco Use Types [...] unspecified documented in this encounter Care Teams Bin Tripper Operator Relationship Specialty Start Date End Date Venus Belcher MD [address] [place] [address] [phone] PCP - General Family Medicine 04/06/24 documented as of this encounter
--- OUTSIDE RECORDS SUMMARY | 2025-02-14 08:21 | XMS_ITS | Encounter Summary ---
Author Organization [facility] Address [address] [place] [address] Care Team Providers Care Clerical Administrator Name Role Phone Venus Belcher MD Primary Care Provider + Encounter Details Date Type Department Care Team (Late st Contact Info) Description 04/18/2024 Lab Requisition [facility] - Main Lab 299 [facility] [place] [address] Venus Belcher MD [address] [address] Cellulitis, unspecified Social History Tobacco Use Types [...] unspecified documented in this encounter Care Teams Clerical Administrator Relationship Specialty Start Date End Date Venus Belcher MD [address] [place] [address] [phone] PCP - General Family Medicine 04/06/24 documented as of this encounter
--- NOTE | 2025-02-14 08:26 | A.OFFVIS_ITS ---
Intake Vital Signs 02/14/25 08:30 Height 6 ft 4 in Weight 385 lb BMI 46.9 BP 128/78 Blood Pressure Location Lt brachial Position Sitting Respiration 16 Pulse 74 Pulse Source Pulse Oximeter Pulse Oximetry (%) 98 Oxygen Delivery Method Room Air Intake Visit Reasons: ALIZA [id number] Apron Man Required: No Accompanied by: Self / Same As Patient Allergies No Known Allergies (No Known Allergies*) Allergy (Verified 02/14/25 08:31) Medication List - Last Reconciled 02/14/25 by DIANA PickettP- albuterol sulfate 90 mcg/actuation 2 puffs PO Q6H PRN amiodarone 200 mg PO DAILY 90 days ammonium lactate 12% 1 appl topical BEDTIME Anoro Ellipta 62.5-25 mcg/actuation (umeclidinium-vilanterol) 1 inh PO DAILY 90 days NS ascorbic acid (vitamin C) 1 g PO DAILY 90 days aspirin 81 mg PO DAILY atorvastatin 80 mg PO BEDTIME 90 days bumetanide 2 mg PO DAILY cholecalciferol (vitamin D3) 1,250 mcg PO FR@0900 clopidogrel (Plavix) 75 mg PO DAILY docusate sodium (Colace) 100 mg PO BID doxazosin 8 mg PO BEDTIME 90 days duloxetine 60 mg PO DAILY finasteride 5 mg PO DAILY 90 days hospital bed Bariatric hospital bed methenamine hippurate 1 g PO DAILY 90 days methocarbamol 500 mg PO BEDTIME PRN [Powered bariatric recliner As directed] pregabalin 150 mg PO TID 90 days ropinirole 2 mg PO TID secukinumab (Cosentyx Pen) 150 mg subcut Q4W secukinumab (Cosentyx Pen) 150 mg subcut QWEEK semaglutide (weight loss) (Wegovy) 0.5 mg subcut FR@0900 spironolactone 25 mg PO BID walker daily use (rolling sitting walker-bariatric size needed) zolpidem 10 mg PO BEDTIME PRN Do you need a note to return to daycare/school/sports/work: No HPI HPI Comments History of Present Illness Details Chief Complaint The patient presents for a follow-up visit to manage multiple chronic c onditions. History of Present Illness The patient is a 70 year old male presenting for follow-up and management of chronic conditions. He has a history of atrial fibrillation and is status post Watchman device placement. He is actively losing weight with a GLP-1 agonist, which he obtains from another facility, and is doing yoga at home. This has led to improved joint mobility, and he has transitioned from using a walker to a cane. The patient also has a history of lymphedema and reports that wearing compression stockings has been tremendously helpful. He reports some difficulty with hearing. NOTE: multiple specialists seen Social History - Exercise: The patient reports doing yo ga at home. - Functional Status: The patient's mobil ity has improved; he now uses a cane instead of a walker. - Weight Management: He is actively losi ng weight on a GLP-1 agonist. Health Maintenance - The patient is actively managing his w eight with a GLP-1 agonist and is doing yoga at home. - A referral will be placed for a hearin g test. Review of Systems - Cardiovascular: Denies chest pains. - Respiratory: Denies increased shortnes s of breath. - Gastrointestinal: Denies abdominal glenn n. - HEENT: Reports being hard of hearing. Physical Exam General: Cooperative, healthy appearing, comfortable, no acute distress and well developed, morbildy obese Orientation: Patient oriented x3 Limitations: No limitations Head: Normal to inspection Ears: Hard of hearing Nose: Normal external nose present Face and sinus: Normal facial exam Eyes: Appearance normal, both eyes and all related structures Neck: Normal visual inspection and Yes full ROM Respiratory: Slightly diminished bilaterally, able to speak in complete sentences Cardiovascular: Regular rate and rhythm. Normal S1 and S2 GI: Normal to inspection. Soft to palpation and nontender Skin: No rashes or lesions noted Neuro: Patient oriented x3 Extremities: Edema to bilateral extremities, normal to inspection, brawny edema noted Results Plan 1. Atrial Fibrillation The patient has a history of atrial fibrillation and is status post Watchman device placement. He is stable and denies any increased shortness of breath or chest pains. Continue current management. 2. Lymphedema The patient has a history of lymphedema, which is improving with the use of compression stockings. He will continue using compression stockings as they are helping. 3. Hearing Loss The patient reports being hard of hearing. A referral will be made for a hearing test. 4. Weight Management The patient is actively losing weight with a GLP-1 agonist from another facility and by doing yoga, which has improved his mobility and joint symptoms. He is encouraged to continue his current regimen. Discussion Notes I discussed with the patient that he is doing very well with his weight loss on a GLP-1 agonist and home yoga, noting the significant improvement in his mobility. We reviewed that his compression stockings are helping his lymphedema. In response to his report of being hard of hearing, I informed him that I will refer him for a hearing test to further evaluate this. Patient Instructions - We will schedule a hearing test for yo u to check your hearing. - Continue wearing your compression stoc kings as they are helping with the swelling in your legs. - Continue with your current weight loss plan, including doing yoga and taking the medication you get from the other facility. - You do not need to make any changes to the management of your atrial fibrillation at this time. [facility] Medical History Morbid obesity Morbid (severe) obesity due to excess calories Presence of Watchman left atrial appendage closure device Visit for suture removal Rib pain on left side Post-COVID syndrome Traumatic perinephric hematoma of left kidney Chronic diastolic heart failure JEFFRY on CPAP Anemia Sepsis COPD (chronic obstructive pulmonary disease) Acute respiratory failure due to COVID-19 Community acquired pneumonia Viral sepsis Fatigue Acute on chronic diastolic CHF (congestive heart failure) COVID Paroxysmal atrial fibrillation Testicular swelling Osteoarthritis of right knee Melanoma History of cardioversion Hereditary lymphedema Venous insufficiency Lymphedema COPD (chronic obstructive pulmonary disease) Sensory neuropathy COVID-19 Respiratory failure with hypoxia Restrictive lung disease MATUTE (dyspnea on exertion) Chronic cystitis Bladder outlet obstruction Restless leg syndrome Traumatic complete tear of right rotator cuff Injury of right rotator cuff History of diverticulitis History of umbilical hernia Surgical History S/P shoulder surgery Status post total left knee replacement Hx of colonoscopy History of appendectomy History of arthroscopy of left knee Family History Father Arthritis Diabetes Mother Arthritis Kidney stones Family/Other Arthritis Sister No problems noted. Sister No problems noted. Son No problems noted. Social History Household Members: Spouse Household Members Other:: Housing: Condominium Do you presently have visiting nurse or other home services: No Alcohol intake: current Alcohol intake frequency: holidays/special occasions only Alcohol type: beer Comment: Refused bed alarm due to alarm sensitivity when changing positions. Patient Tobacco Use Status: Former Tobacco user Tobacco use type: Cigarette Cigarette Packs Per Day: 1 Years Smoked: 30 years e-Cigarette/Vaping Use: Never Used Second Hand Smoke Exposure: No Substance Use Type: Marijuana Advance Directives Date on File: 02/24/24 service: No Current occupational status: retired Current occupation: [employer]/ rt Cognitive needs: No Hearing needs: No Vision needs: No Questionnaire Medicare Wellness Checkup [age] What gender do you identify with?: male During the past 4 weeks, how much have you been bothered by emotional problems such as feeling anxious, depressed, irritable, sad or downhearted, and blue?: qu ite a bit During the past 4 weeks, has your physical & emotional health limited your social activities with family, friends, neighbors, or groups?: not at all During the past 4 weeks, how much bodily pain have you generally had?: moderate pain During the past 4 weeks, was someone available to help you if you needed & wanted help?: yes, quite a bit During the past 4 weeks, what was the hardest physical activity you could do for at least 2 minutes?: moderate Can you get to places out of walking distance without help? (For eg., can you travel alone on buses, taxis or drive your car?): Yes Can you go shopping for groceries or clothes without someone's help?: Yes Can you prepare your own meals?: Yes Can you do your housework without help?: No Because of any health problems, do you need the help of another person with your personal care needs such as eating, bathing, dressing or getting around the house?: No Can you handle your own money without help?: Yes During the past 4 weeks, how would you rate your health in general?: good During the past 4 weeks how have things been going for you?: good & bad parts about equal Are you having difficulties driving your car?: no Do you always fasten your seat belt when you are in a car?: yes, usually During past 4 weeks, have you been bothered by the following: never: Trouble eating well? and Problems using the telephone?, seldom: Falling or dizzy when standing up and Teeth or denture problems? and sometimes: Sexual problems? and Tiredness or fatigue? Have you fallen 2 or more times in the past year?: No Are you afraid of falling?: No Are you a smoker?: no During the past 4 weeks, how many drinks of wine, beer, or other alcoholic beverages did you have?: 6-9 drinks per week Do you exercise for about 20 minutes 3 or more times a week?: yes, some of the time Have you been given information to help with the following?: yes: Hazards in your house that might hurt you? and yes: Keeping track of your medications? How often do you have trouble taking medicines the way you have been told to take them?: I always take medicine as prescribed How confident are you that you can control & manage most of your health problems?: very confident What is your race?: White Mini Mental State Exam (MMSE) Orientation What is the (year) (season) (date) (day) (month)?: year, season, date, day and month Where are we (state) (county) (town or city) (hospital) (floor)?: state, county, town or city, hospital/clinic and floor Registration Name of 3 unrelated objects clearly and slowly, then ask patient to repeat all 3 of them. (1st repeat determines score. Make sure they can repeat all three): object 1, object 2 and object 3 Attention & Calculation (CHOOSE ONE) Spell WORLD backwards (DLROW): 5 letters Recall Ask patient to repeat the 3 items from question #3.: object 1, object 2 and object 3 Language Show patient a wristwatch & ask what it is. Repeat for pencil.: watch and pencil Ask the patient to repeat the phrase 'No ifs, ands, or buts' after you.: correct Ask the patient to 'take a piece of paper with their right hand' 'fold paper in half' 'place paper on floor': take paper in right hand, fold paper in half and place paper on floor Print the sentence 'CLOSE YOUR EYES' on a piece. If patient actually closes eyes then score.: followed written direction Give patient a blank piece of paper & ask to write a sentence. Score if it contains a noun & verb.: sentence contains subject and verb Ask patient to copy figure of intersecting pentagons exactly. Score if all 10 angles & 2 intersects are included.: all 10 angles present & 2 are intersected Score Score: 30 Activity of Daily Living Bathing - sponge bath, tub bath or shower: receives no assistance (gets in/out by self, if usual bathing means Dressing - getting clothes from closets & drawers, including inner/outer garments & fasteners.: gets clothes & gets completely dressed without help Toileting - going to the 'toilet room' for urine/bowel elimination & cleaning self/arranging clothes: goes to toilet room, cleans self, arranges clothes w ithout help Transfer: moves in & out of bed and chair without help (may use support object) Continence: controls urination/bowel movements completely by self Feeding: feeds self without help Total Score: 0 Information obtained from: patient Using telephone: independent Traveling: independent Shopping: independent Preparing meals: independent Housework: independent Taking medicine: independent Managing money: independent PHQ-9 Over the last 2 weeks, how often have you been bothered by any of the following problems? 1. Little interest or pleasure in doing things: not at all 2. Feeling down, depressed, or hopeless: several days 3. Trouble falling or staying asleep, or sleeping too much: not at all 4. Feeling tired or having little energy: several days 5. Poor appetite or overeating: not at all 6. Feeling bad about yourself - or that you are a failure or have let yourself or your family down: not at all 7. Trouble concentrating on things, such as reading the newspaper or watching television: several days 8. Moving or speaking so slowly that other people could have noticed. Or the opposite - being so fidgety or restless that you have been moving around a lot more than usual: not at all 9. Thoughts that you would be better off or of hurting yourself in some way: not at all Total score: 3 Depression Screening Interpretation: Negative Depression Screening Done: Yes 85806 - PHQ-9 Billing: Yes Source: Developed by Drs. Marc Victoria, Karen Nguyen, Tristan Dominguez and colleagues, with an educational juan from [employer]. Physical Exam Vital Signs: Last Vital Signs Pulse 74 02/14/25 08:30 Resp 16 02/14/25 08:30 BP 128/78 02/14/25 08:30 Pulse Ox 98 02/14/25 08:30 Oxygen Delivery Method Room Air 02/14/25 08:30 BMI result Body Mass Index 46.9 Neuro Other: A+O, able to stand from sitting position, difficult time performing tandem walking, didnt pass whisper test, neg rhomberg Assessment & Plan Assessment & Plan (1) Hard of hearing: Code(s): H91.90 - Unspecified hearing loss, unspecified ear (2) Encounter for annual wellness visit (AWV) in Medicare patient: Code(s): Z00.00 - Encounter for general adult medical examination without abnormal findings (3) A-fib: Code(s): I48.91 - Unspecified atrial fibrillation Qualifiers: Atrial fibrillation type: persistent (not longstanding) Qualified Code(s): I48.19 - Other persistent atrial fibrillation (4) Lymphedema: Comment: vascular Code(s): I89.0 - Lymphedema, not elsewhere classified Plan . Orders: Referrals Speech and Hearing Referral H91.90 - Unspecified hearing loss, unspecified ear Quality Reporting (2019) Depression/Bipolar (159/160/161/177) PHQ-9: Total score: 3 Coding Level of Care Code Medicare Subsequent (G0439) Est Pt Level 3 (15263) Diagnoses Hard of hearing H91.90 Encounter for annual wellness visit (AWV) in Medicare patient Z00.00 Persistent atrial fibrillation I48.19 Atrial fibrillation type: persistent (not longstanding) Lymphedema I89.0 CPT Codes Advance Care Planning - Time spent: 1-15 minutes, on File ([id number]) Additional Codes PHQ-9 - 55174 - PHQ-9 Billing: Yes ([id number]) Advance Care Planning Forms completed: Health Care Proxy, MOLST and Living will Time spent: 1-15 minutes, on File Actual minutes spent: 10
[2025-02-14 08:30] VITALS: BP 128/78; PULSE 74; RESP 16; O2SAT 98; BMI 46.9
== END 2025-02-14 09:54 | disposition home or self-care (01) ==
LOC: HO.HMCC 08:18
PROVIDERS: PCP Nurse Practitioner Family; Visit Provider Nurse Practitioner Family
DX: H91.90 Unspecified hearing loss, unspecified ear (principal); Z00.00 Encounter for general adult medical examination without abnormal findings; I48.19 Other persistent atrial fibrillation; I89.0 Lymphedema, not elsewhere classified; Z23 Encounter for immunization

== ENCOUNTER → 2025-02-14 08:17 | Outpatient (BNVA) | payer MEDICARE, SELFPAY | PROVIDERS: PCP Nurse Practitioner Family; Visit Provider Nurse Practitioner Family | DX: Z00.00 Encounter for general adult medical examination without abnormal findings (principal); Z23 Encounter for immunization; H91.90 Unspecified hearing loss, unspecified ear; I48.19 Other persistent atrial fibrillation; I89.0 Lymphedema, not elsewhere classified | CPT/HCPCS: 90471; 90715; 96127; 99212 ==